=== PATIENT | female | born 1970 | race Caucasian/White ===

== ENCOUNTER 2021-03-26 13:09 | Emergency (ER) | payer OTHER, SELFPAY ==
[2021-03-26 13:19] VITALS: BP 155/100; PULSE 83; RESP 18; TEMP 36.4; O2SAT 98
--- NOTE | 2021-03-26 14:00 | ED.GENADULT ---
HPI - General Adult General Chief complaint: Headache Stated complaint: headache/sore throat, runny nose Time Seen by Provider: 03/26/21 13:34 History of Present Illness HPI narrative: Patient is a 50-year-old female with history of asthma otherwise healthy who comes emergency room today complaining primarily of a right-sided headache and pressure in right ear for the last 3 days along with sinus pain and congestion. The headache is located primarily on right side of head and frontal aspect of head. Today she developed fatigue and chills and vomiting. Temperature normal upon arrival to ED and has not taken any Tylenol or ibuprofen today. No abdominal pain, chest pain, shortness of breath. Notes that she has had ear infections in the past. Related Data Allergies Allergy/AdvReac Type Severity Reaction Status Date / Time Penicillins Allergy Hives Verified 03/26/21 13:23 tamoxifen Allergy Hives Verified 03/26/21 13:23 Review of Systems Constitutional: Constitutional: Reports as per HPI and Denies weakness ENT: Reports as per HPI Comments: See HPI for sinus pain and congestion Cardiovascular: Cardiovascular: Denies chest pain, Denies edema, Denies leg edema, Denies dyspnea and Denies orthopnea Respiratory: Respiratory: Denies cough and Denies dyspnea Gastrointestinal: Gastrointestinal: Denies abdominal pain, Denies constipation, Denies diarrhea, Reports nausea and Reports vomiting Comments: See HPI for nausea and vomiting that started earlier today Genitourinary: Genitourinary: Reports no additional female genitourinary complaints Comments: No urinary complaints Musculoskeletal: Musculoskeletal: Denies abnormal gait, Denies back pain, Denies numbness and Denies tingling Neurologic: Denies Abnormal speech present, Denies abnormal gait, Denies numbness, Denies tingling and Denies weakness Comments: See HPI for headache Psychiatric: Psychiatric: Denies homicidal ideation and Denies suicidal ideation [facility] Social History Social History Gender identity (if verbalized by the patient): Female Exam Const: General: cooperative, healthy appearing, comfortable, no acute distress, well developed, alert, awake and Physically active Orientation/consciousness: patient oriented x3 HENMT: Head: normal to inspection, normocephalic and atraumatic Ears: hearing grossly normal bilaterally, external ears normal, mastoids normal (Tender to palpate over right mastoid with no overlying edema or erythema) and other (Right TM shows a middle ear effusion with no signs of infection. ) General nose exam: Normal external nose present Face and sinus: other (Significant nasal mucosal edema bilaterally, right worse than left) Eyes: Pupils: Equal, round and reactive pupils present EOM: EOMs intact bilaterally Neck: Neck: normal visual inspection Other: Oropharynx clear. No lymphadenopathy. Chest: Chest palpation & inspection: normal inspection of the chest and no tenderness Resp: Effort & Inspection: normal respiratory effort and able to speak in complete sentences Auscultation: clear to auscultation bilaterally Cardio: Rate: regular rate Rhythm: regular rhythm GI: Inspection: normal to inspection GI Palp: No abdominal tenderness Other: No abdominal pain with deep palpation : General: Yes no CVA tenderness Back/Spine/Pelvis: Back: no CVA tenderness Skin: General skin exam: normal color and no rashes or lesions noted Lesions: no lesions Neuro: General: patient oriented x3, no focal motor deficits and CN's II-XI intact bilaterally Cranial nerves: Yes Equal, round and reactive pupils present Speech: No Abnormal speech present Motor exam (neuro): 5/5 motor strength present throughout Sensory Exam: normal sensation Extrem: General: normal to inspection and full ROM Psych: Appearance: grossly normal and well kempt Mental Status: mental status grossly normal Speech and movement: Normal speech and movement present Affect: normal
[2021-03-26] MEDS: KETOROLAC 15 MG/ML VIAL (*BKC) IV PUSH (14:46)
[2021-03-26] MEDS: ONDANSETRON INJ 4 MG/2 ML VIAL IV PUSH (14:46)
[2021-03-26] MEDS: ACETAMINOPHEN 500 MG TABLET 1000 MG PO (14:46)
[2021-03-26] MEDS: LACTATED RINGERS 1,000 ML 999 ML IV CONT (14:47)
[2021-03-26 16:50] VITALS: BP 160/101; PULSE 58; RESP 16; TEMP 36.4; O2SAT 100
[2021-03-26 17:09] VITALS: BP 160/101; PULSE 58; RESP 15; TEMP 36.4; O2SAT 100
[2021-03-28 01:55] LABS: SARS-CoV-2 RNA PCR Negative
== END 2021-03-26 17:11 | disposition home or self-care (01) ==
PROVIDERS: Physician Assistant Medical; Emergency Provider Emergency Medicine; PCP Family Medicine
DX: J01.10 Acute frontal sinusitis, unspecified (principal); H65.01 Acute serous otitis media, right ear; Z20.822 Contact with and (suspected) exposure to COVID-19
CPT/HCPCS: 96361; 96374; 96375; 99284; A9270; C9803; J1885; J2405; J7120; U0003; U0005

== ENCOUNTER 2021-04-15 16:53 | Emergency (ER) | payer OTHER, SELFPAY ==
--- NOTE | ~2021-04-15 | XR_ITS ---
XR chest 1V portable DATE: 04/15/2021 17:24 INDICATION: Cough and shortness of breath for one day. History of asthma. TECHNIQUE: Portable upright AP chest on 04/15/2021 at 1716 hours COMPARISON: None FINDINGS: Normal heart size. Minimal discoid atelectasis or scarring in the left upper and lower lung . No pulmonary infiltrate or consolidation, pleural effusion or pulmonary vascular congestion or pneumo thorax. Normal heart size. No hilar or mediastinal enlargement. IMPRESSION: Minimal left discoid atelectasis or scarring; otherwise no active cardiac pulmonary disea se Reviewed, dictated and finalized at location A. IMPRESSION: Minimal left discoid atelectasis or scarring; otherwise no active c ardiac pulmonary disease
[2021-04-15 18:19] VITALS: BP 138/96; PULSE 103; RESP 14; TEMP 36.6; O2SAT 99
--- NOTE | 2021-04-15 18:33 | ED.URI ---
HPI - URI/Sore Throat General Chief Complaint: Upper Respiratory Infection Stated Complaint: ASTHMA COVID S/SX Time Seen by Provider: 04/15/21 18:31 Source: patient Mode of arrival: ambulatory Limitations: no limitations History of Present Illness HPI Narrative: Patient is a 50-year-old female who presents for evaluation of shortness of breath, cough, fever, myalgias. Patient has been feeling unwell since , April 14 when her symptoms began. Patient spouse has been sick with similar symptoms. Patient reports fever of 101 Fahrenheit today. She reports cough, wheezing and is worried that her asthma is worsening. She reports shortness of breath and chest pain over the center of her chest without radiation to the neck, jaw or shoulder. She reports associated dry cough. She has been using a DuoNeb, and initiated steroids at home without much improvement in her symptoms today. She reports myalgias, rhinorrhea. She reports shortness of breath at rest. Patient is worried she may have Covid. She is not vaccinated. Related Data Allergies Allergy/AdvReac Type Severity Reaction Status Date / Time Penicillins Allergy Hives Verified 04/15/21 19:22 tamoxifen Allergy Hives Verified 04/15/21 19:22 Review of Systems Review of Systems: CONSTITUTIONAL: Reports fever and chills EYES: Denies visual changes, redness, or discharge. ENT: Reports rhinorrhea, congestion, sore throat CARDIOVASCULAR: Reports chest pain without palpitations RESPIRATORY: Reports cough and dyspnea GASTROINTESTINAL: Denies abdominal pain, reports nausea, denies diarrhea GENITOURINARY: Denies dysuria or hematuria. SKIN: Denies rash or itching. MUSCULOSKELETAL: Denies back pain, reports arthralgias and myalgias NEUROLOGIC: Denies headache, numbness, or weakness. [facility] Social History Social History (Updated 04/15/21 @ 19:46 by Joy Jones MD) Smoking status: Never smoker Alcohol intake: never Substance use: never Living arrangements: with family Gender identity (if verbalized by the patient): Female Exam Narrative: GENERAL: Awake, alert, conversant HEAD: Normocephalic, atraumatic. EYES: PERRLA and EOMI. ENT: Nares clear, no rhinorrhea or epistaxis. Mucous membranes moist. NECK: Supple. CHEST: No significant tachypnea, patient is able to speak in full sentences, there is audible wheezing HEART: Tachycardic rate, sinus rhythm ABDOMEN:Non distended, non tender EXTREMITIES: Normal range of motion. No edema. SKIN: Warm, dry, no rash. NEURO:No focal deficits. Alert and oriented x3 Course Vital Signs Vital signs: Vital Signs Temperature 36.6 C 04/15/21 18:19 Pulse Rate 103 H 04/15/21 18:19 Respiratory Rate 14 04/15/21 18:19 Blood Pressure 138/96 H 04/15/21 18:19 Pulse Oximetry 99 04/15/21 18:19 Temperature 36.6 C 04/15/21 18:19 Pulse Rate 101 H 04/15/21 21:46 Respiratory Rate 21 H 04/15/21 21:46 Blood Pressure 151/80 H 04/15/21 21:46 Pulse Oximetry 95 04/15/21 21:46 MDM - URI/Sore Throat MDM Narrative Medical decision making narrative: Patient presenting for evaluation of upper respiratory type symptoms that are most consistent with COVID-19 infection. Patient's Covid test is positive. Chest x-ray without acute patchy infiltrates. Patient treated for mild asthma exacerbation with DuoNeb treatment, steroids which greatly improved her wheezing. Patient was reassessed and tachycardia is improved. She is not hypoxic. Oxygen saturations are 100% on room air. No severe electrolyte derangement. Mild transaminitis consistent with Covid viral illness. Patient D-dimer mildly elevated but her age is 50, she does not meet criteria for CTA based on age-adjusted D-dimer. Troponin is not elevated. Patient will be discharged home, advised to quarantine, I did call her primary care physician to see if they could arrange monoclonal antibody infusion outside of the hospital. Differential Diagnosis Differential diagnosis: Alena
[2021-04-15 19:20] VITALS: BP 145/95; PULSE 99; RESP 17; O2SAT 99
[2021-04-15 19:23] VITALS: O2SAT 99
--- NOTE | 2021-04-15 19:35 | ECG_ITS ---
Measurements Intervals [place] Rate: 83 P: 22 MA: 142 QRS: -11 QRSD: 100 T: 3 QT: 360 QTc: 425 Interpretive Statements SINUS RHYTHM BORDERLINE R WAVE PROGRESSION, ANTERIOR LEADS MINIMAL Q WAVES- HIGH LATERAL LEADS BORDERLINE T WAVE ABNORMALITY- ANT/INF LEADS BORDERLINE ECG Electronically Signed On 04-15-2021 20:58:51 CDT by Leon Mora D.O.
[2021-04-15] MEDS: IPRATROPIUM BR 0.02% INH SOLN 0.5 MG/2.5 ML VIAL 1 MG INHALATION (19:52)
[2021-04-15] MEDS: ALBUTEROL SULFATE NEB 2.5 MG/0.5 ML INH 7.5 MG INHALATION (19:52)
[2021-04-15] MEDS: ALBUTEROL SULFATE NEB 2.5 MG/0.5 ML INH 5 MG INHALATION (19:52)
[2021-04-15] MEDS: ONDANSETRON INJ 4 MG/2 ML VIAL IV PUSH (20:11)
[2021-04-15] MEDS: ACETAMINOPHEN 500 MG TABLET 1000 MG PO (20:11)
[2021-04-15] MEDS: SODIUM CHLORIDE 0.9% IV 1,000 ML 999 ML IV CONT (20:11)
[2021-04-15] MEDS: methylPREDNISolone SOD SUCC 125 MG VIAL IV PUSH (20:11)
[2021-04-15 20:12] VITALS: BP 137/87; PULSE 88; RESP 12; O2SAT 100
[2021-04-15 20:23] LABS: Basophils Percent Auto 0.3 % (0.2-1.2); Hematocrit 42.5 % (37.0-47.0); Hemoglobin 14.2 g/dL (12.0-15.0); Immature Granulocyte Absolute 0.08 K/mm3 (0.00-0.031); Immature Granulocyte Percent A 2.1 % (0-0.5); Lymphocytes Absolute Auto 0.25 K/mm3 (0.9-3.2); Lymphocytes Percent Auto 6.6 % (18.3-44.2); Mean Corpuscular HGB Conc 33.4 g/dl (32-36); Mean Corpuscular Hemoglobin 31.3 pg (26-34); Mean Corpuscular Volume 93.6 fl (80-100); Mean Platelet Volume 10.1 fl (7.4-10.4); Monocytes Absolute Auto 0.2 K/mm3 (0.1-0.6); Monocytes Percent Auto 4.7 % (2.6-8.5); Neutrophils Absolute Auto 3.3 K/mm3 (1.3-6.7); Neutrophils Percent Auto 86.3 % (45.5-73.1); Platelet Count Result 201 k/mm3 (150-375); Red Blood Count 4.54 M/mm3 (4.2-5.4); Red Cell Distribution Width 12.5 % (11.5-14.5); White Blood Count 3.8 K/mm3 (4.5-10.0)
[2021-04-15 20:37] LABS: Albumin Level 4.5 g/dL (3.5-5.1); Alkaline Phosphatase 187 U/L (38-126); Anion Gap 11 mmol/L (8-16); Aspartate Amino Transferase 151 U/L (14-36); Bilirubin,Total 0.2 mg/dL (0.2-1.3); Blood Urea Nitrogen 7 mg/dL (7-17); Calcium 9.9 mg/dL (8.4-10.2); Carbon Dioxide 22 mmol/L (22-30); Chloride 104 mmol/L (98-107); Estimated CRCL calculation 124 ml/min; Estimated Glomerular Filt Rate > 60; Glucose 164 mg/dL (65-110); Potassium 3.6 mmol/L (3.4-5.0); Sodium 137 mmol/L (137-145)
[2021-04-15 20:44] LABS: INR 0.8
[2021-04-15 20:45] LABS: Partial Thromboplastin Time 26.8 SECONDS (22.3-36.8)
[2021-04-15 20:46] LABS: Troponin I < 0.012 ng/mL (0.000-0.034)
[2021-04-15 20:47] LABS: D Dimer 0.58 ug/mL (<0.48)
[2021-04-15 20:59] VITALS: PULSE 95; RESP 20; O2SAT 100
[2021-04-15 21:29] LABS: Alanine Aminotransferase 245 U/L (4-35)
[2021-04-15 21:45] LABS: EDCOVIDSCREEN Positive (Negative)
[2021-04-15 21:46] VITALS: BP 151/80; PULSE 101; RESP 21; O2SAT 95
== END 2021-04-15 21:58 | disposition home or self-care (01) ==
PROVIDERS: Emergency Provider Emergency Medicine; PCP Family Medicine
DX: U07.1 COVID-19 (principal); J45.909 Unspecified asthma, uncomplicated; J06.9 Acute upper respiratory infection, unspecified; R94.31 Abnormal electrocardiogram [ECG] [EKG]
CPT/HCPCS: 36415; 71045; 80053; 84484; 85025; 85380; 85610; 85730; 87426; 93005; 94640; 96361; 96374; 96375; 99284; A9270; C9803; J2405; J2930; J7030

== ENCOUNTER 2021-06-18 07:57 | Emergency (ER) | payer OTHER, SELFPAY ==
--- NOTE | ~2021-06-18 | CT_ITS ---
EXAMINATION: CT brain wo con DATE: 06/18/2021 09:40 INDICATION: Headache. TECHNIQUE: Computed tomography (CT) of the head was performed without intravenous contrast. The mA wa s adjusted according to patient size. Iterative reconstruction technique was employed. The dose-lengt h product was 605.33 mGy-cm. COMPARISON: None FINDINGS: There is no intracranial hemorrhage, acute infarction, or abnormal intracranial mass lesion . The ventricles are normal in size. The paranasal sinuses are clear. The mastoid air cells are stephanie l. There are likely changes of left ocular lens replacement surgery. IMPRESSION: 1. Normal brain. Reviewed, dictated and finalized at location A. IMPRESSION: 1. Normal brain.
[2021-06-18 08:16] VITALS: BP 127/87; PULSE 80; RESP 16; TEMP 36.2; O2SAT 99
[2021-06-18 09:57] LABS: Hematocrit 40.2 % (37.0-47.0); Hemoglobin 13.8 g/dL (12.0-15.0); Mean Corpuscular HGB Conc 34.3 g/dl (32-36); Mean Corpuscular Hemoglobin 31.8 pg (26-34); Mean Corpuscular Volume 92.6 fl (80-100); Mean Platelet Volume 9.2 fl (7.4-10.4); Platelet Count Result 373 k/mm3 (150-375); Red Blood Count 4.34 M/mm3 (4.2-5.4); Red Cell Distribution Width 12.4 % (11.5-14.5); White Blood Count 13.5 K/mm3 (4.5-10.0)
[2021-06-18] MEDS: SODIUM CHLORIDE 0.9% IV 1,000 ML 999 ML IV CONT (09:59)
[2021-06-18] MEDS: ONDANSETRON INJ 4 MG/2 ML VIAL IV PUSH (09:59)
[2021-06-18] MEDS: KETOROLAC 15 MG/ML VIAL (*BKC) IV PUSH (10:00)
[2021-06-18] MEDS: DEXAMETHASONE SOD PHOS INJ 4 MG/ML VIAL 10 MG IV PUSH (10:00)
[2021-06-18 10:01] VITALS: BP 137/94; PULSE 68; RESP 15; O2SAT 99
[2021-06-18 10:06] LABS: Alanine Aminotransferase 64 U/L (4-35); Albumin Level 4.1 g/dL (3.5-5.1); Alkaline Phosphatase 110 U/L (38-126); Anion Gap 7 mmol/L (8-16); Aspartate Amino Transferase 48 U/L (14-36); Bilirubin,Total 0.5 mg/dL (0.2-1.3); Blood Urea Nitrogen 21 mg/dL (7-17); Carbon Dioxide 29 mmol/L (22-30); Chloride 101 mmol/L (98-107); Estimated CRCL calculation 80 ml/min; Estimated Glomerular Filt Rate > 60; Glucose 92 mg/dL (65-110); Potassium 4.1 mmol/L (3.4-5.0); Sodium 137 mmol/L (137-145)
[2021-06-18 10:20] LABS: Add Urine Microscopic? YES; Appearance Urine Clear (Clear); Bilirubin Urine Negative (Negative); Blood Urine Negative (Negative); Color Urine Yellow (Yellow); Glucose Urine UA Negative (Negative); Ketones Urine Negative (Negative); Leukocyte Esterase Ur Negative LEU/UL (Negative); Mucus Urine Moderate /lpf; Nitrate Urine Negative (Negative); Protein Urine 1+ mg/dL (Negative); RBC Urine 0-2 /hpf (0-2); Specific Grav Ur 1.025 (1.001-1.035); Squamous Epithelial Cell Urine Few /hpf (Few); Urobilinogen Urine Negative mg/dL (<2.0); WBC Urine 0-3 /hpf
[2021-06-18 10:39] LABS: Band Neutrophils Percent 2 % (0-6); Eosinophils Absolute Manual 0.13 K/mm3 (0.02-0.5); Eosinophils Percent Manual 1 % (0-4); Lymphocytes Absolute Manual 2.43 K/mm3 (1.1-4.5); Lymphocytes Percent Manual 18 % (18-44); Monocytes Absolute Manual 0.81 K/mm3 (0.1-0.90); Monocytes Percent Manual 6 % (3-9); Neutrophils Absolute Manual 10.12 K/mm3 (1.7-7.2); Neutrophils Percent Manual 73 % (46-73); Platelet Estimate Adequate (Adequate); Total Cells Counted 100
[2021-06-18 10:40] LABS: Atypical Lymphocytes Present
[2021-06-18 11:07] LABS: Erythrocyte Sedimentation Rate 20 mm/hr (0-20)
[2021-06-18 11:45] VITALS: BP 154/92; PULSE 72; RESP 14; O2SAT 97
[2021-06-18] MEDS: SUMAtriptan SUCCINATE 6 MG/0.5 ML VIAL SUB-Q (12:58)
--- NOTE | 2021-06-18 13:56 | ECG_ITS ---
Measurements Intervals [place] Rate: 68 P: 48 AL: 159 QRS: -1 QRSD: 94 T: 20 QT: 387 QTc: 413 Interpretive Statements SINUS RHYTHM DELAYED PRECORDIAL R/S TRANSITION MINIMAL Q WAVES- HIGH LATERAL LEADS BORDERLINE ECG Electronically Signed On 06-18-2021 16:47:02 CDT by Leon Mora D.O.
--- NOTE | 2021-06-18 14:15 | ED.GENADULT ---
HPI - General Adult General Chief complaint: Headache Stated complaint: SAAB X2WKS Time Seen by Provider: 06/18/21 09:12 Source: patient Mode of arrival: ambulatory Limitations: no limitations History of Present Illness HPI narrative: Patient is a 51-year-old female presenting with chief complaint of right-sided headache for many months. Patient reports of the past 2 weeks the headache has been persistent so her primary care told her to present to the emergency department for evaluation. Patient states that she has had antibiotics to treat her sinuses and just finished a prednisone taper. Patient states that her primary care has also initiated blood pressure medication that may possibly be the cause of her headache without avail. Patient has not had any head injury. Patient reports at times when the headache is present she has intermittent blurry vision. She denies blurry vision at this time. Patient reports at times she has some nausea but does not have persistent vomiting. She denies tenderness when her arthroscopic surgery. She denies facial asymmetry, changes in speech, unilateral weakness or any neurological deficits. Related Data Home Medications Medication Instructions Recorded Confirmed metoprolol succinate 25 mg PO DAILY 06/18/21 tizanidine 4 mg PO Q8H PRN 06/18/21 Allergies Allergy/AdvReac Type Severity Reaction Status Date / Time Penicillins Allergy Hives Verified 06/18/21 08:21 tamoxifen Allergy Hives Verified 06/18/21 08:21 Review of Systems Review of Systems: CONSTITUTIONAL: Denies fever, chills, or sweats. EYES: Denies visual changes, redness, or discharge. ENT: Denies rhinorrhea, congestion, sore throat, or otalgia. CARDIOVASCULAR: Denies chest pain, palpitations, or edema. RESPIRATORY: Denies cough or dyspnea. GASTROINTESTINAL: Denies abdominal pain, nausea, vomiting, or diarrhea. GENITOURINARY: Denies dysuria or hematuria. SKIN: Denies rash or itching. MUSCULOSKELETAL: Denies back pain, joint pain, or myalgia. NEUROLOGIC: Reports headache, denies numbness, dizziness, or weakness. PSYCHIATRIC: Denies anxiety or depression. [facility] Social History Social History (Updated 04/15/21 @ 19:46 by Joy Jones MD) Smoking status: Never smoker Alcohol intake: never Substance use: never Gender identity (if verbalized by the patient): Female Exam Narrative: GENERAL: Well-appearing, well-nourished, and in no acute distress. HEAD: Normocephalic, atraumatic. No tenderness with palpation of the church. EYES: PERRLA and EOMI. ENT: Nares clear, no rhinorrhea or epistaxis. Mucous membranes moist. Oropharynx without tonsillar hypertrophy exudate or other lesions. Bilateral TMs pearly morris nonbulging NECK: Supple. No adenopathy or masses. ROM intact. CHEST: Clear to auscultation. No respiratory distress. No wheezes rales or rhonchi HEART: Regular rate and rhythm. No murmur heard. Normal peripheral pulses. EXTREMITIES: Normal range of motion. No edema. SKIN: Warm, dry, no rash. NEURO: No focal deficits. Alert and oriented x3. Face is symmetric. No unilateral weakness or deficits. PSYCH: Normal mood and affect. Course Vital Signs Vital signs: Vital Signs Temperature 97.2 F L 06/18/21 08:16 Pulse Rate 80 06/18/21 08:16 Respiratory Rate 16 06/18/21 08:16 Blood Pressure 127/87 06/18/21 08:16 Pulse Oximetry 99 06/18/21 08:16 Temperature 97.2 F L 06/18/21 08:16 Pulse Rate 80 06/18/21 15:01 Respiratory Rate 18 06/18/21 15:01 Blood Pressure 158/100 H 06/18/21 15:01 Pulse Oximetry 99 06/18/21 15:01 Medical Decision Making MDM Narrative Medical decision making narrative: Patient reports minimal improvement in her headache after Decadron, Toradol, fluids and Imitrex. Patient's head CT is negative. Patient blood work is normal. White blood cell count is slightly elevated but that is not abnormal due to patient being on steroids. Patient has been instructed to
[2021-06-18 15:01] VITALS: BP 158/100; PULSE 80; RESP 18; O2SAT 99
== END 2021-06-18 15:08 | disposition home or self-care (01) ==
PROVIDERS: Physician Assistant; Emergency Provider Emergency Medicine; PCP Family Medicine
DX: R51.9 Headache, unspecified (principal)
CPT/HCPCS: 36415; 70450; 80053; 81001; 85025; 85652; 93005; 96361; 96372; 96374; 96375; 99284; J1100; J1885; J2405; J3030; J7030

== ENCOUNTER → 2021-07-25 00:58 | Outpatient (CLI) | payer OTHER, SELFPAY ==
[2021-07-25 18:54] LABS: SARS-CoV-2 RNA PCR Negative
== END ==
PROVIDERS: PCP Family Medicine; Visit Provider Obstetrics & Gynecology Gynecology
DX: Z01.812 Encounter for preprocedural laboratory examination (principal)
CPT/HCPCS: C9803; U0003; U0005

== ENCOUNTER 2021-07-28 00:50 | Day surgery (SDC) | payer OTHER, SELFPAY ==
[2021-07-14 15:05] VITALS: BMI 31.4
--- NOTE | 2021-07-14 15:15 | PC.NURSE ---
Report to the Outpatient Waiting Room, entrance under the green pavilion located off [facility], at time 0600 on date 07/28/21. OR Time: 0730. - You and your visitor will be asked a series of questions to screen for COVID 19 for your protection. - A mask is required within the hospital. - Only one visitor is allowed at this time. Patient visitors will be guided where to wait when not with patient. Preoperative COVID Testing Requirements: No COVID Test needed if: (proof is required; if not received patient will have Rapid Test prior to entry) - Patient has received COVID Vaccine at least 14 days prior to procedure date or - Patient has positive COVID test result within last 90 days of surgery date. COVID Test needed if above criteria is not met If not COVID vaccinated a COVID test must be conducted within 72 hours of surgery and patient is asked to isolate self from time of testing until procedure. You will go to the [facility] for your COVID testing. The [facility] is located at the corner of [address] [facility]. COVID TEST 07/25 AT 0945 You will only be called if COVID results are positive and your surgeon may reschedule your elective surgery date. Patients may have clear liquids (water, carbonated beverages, clear teas, apple juice) until 3 hours prior to surgery with a maximum of 20 ounces. - No food from midnight until time of surgery - Infants may have breast milk until 4 hours before surgery, infant formula 6 hours prior to surgery. - Children will be allowed to drink immediately following surgery. If applicable, please bring a bottle or sippy cup to assist with drinking. Juice, water, soda, and popsicles are readily available. For infants on formula, please bring formula the day of surgery. Pacifiers are allowed. Take the following medications with a SIP of water the morning of surgery: METOPROLOL Medications to discontinue per physician: IBUPROFEN Date to take last dose: PER DR. CRAWFORD Please no make-up, nail malian, hairspray, perfume, deodorant, or body powder the day of surgery. No jewelry (including any body piercings) or valuables the day of surgery, leave them at home. Please take a shower or bath the night before, or the morning of, surgery with an antibacterial soap. Wear comfortable, loose fitting clothing. Children are encouraged to wear pajamas. - Jewelry must be removed prior to entering the operating room. Rings and piercings that are not removed may be cut off. - The hospital will not accept responsibility for valuables. - Please leave all valuables, including medications, at home the day of surgery. If you are going home after surgery, a licensed bus driver supervisor must drive you home. - NO public transportation without another adult. - We recommend that an adult stay with you for 24 hours following discharge. - We also recommend that you do not drive, make important decision, drink alcoholic beverages, or take any drugs that were not prescribed by your health care provider for at least 24 hours after your discharge time. For Pediatric surgeries, we recommend two adults accompany the child home (only one inside the building at this time). Follow any additional instructions given to you from your surgeon. Telephone instructions given to MAX DE LA GARZA and asked if any additional questions and then verbalized understanding. Patient advised to call surgeon office or pre surgery nurse liaison [phone] if any additional questions.
[2021-07-28 06:17] VITALS: BP 125/74; PULSE 57; RESP 16; TEMP 36; O2SAT 98
[2021-07-28] MEDS: LACTATED RINGERS 1,000 ML 30 ML IV CONT (06:30)
[2021-07-28] MEDS: ACETAMINOPHEN 500 MG TABLET 1000 MG PO (06:36)
--- NOTE | 2021-07-28 06:53 | P.PNAN_ITS ---
Anes - Initial Pre Proc Eval Procedure: Operation Date: 07/28/21 07:30 Proposed Procedures p Hysteroscopy, Dilation and Curettage - Angeles Hernandez MD Date/Time: 07/28/21 06:53 Surgeon: Angeles Hernandez MD Pre Op Diagnosis: Post Menopausal Bleeding Patient Data Age: 51 Gender: F Height: 1.68 m Weight: 88.5 kg Allergies Allergy/AdvReac Type Severity Reaction Status Date / Time adhesive tape Allergy Blister Verified 07/28/21 06:11 Penicillins Allergy Hives Verified 07/28/21 06:11 tamoxifen Allergy Hives Verified 07/28/21 06:11 Home Medications Medication Instructions Recorded Confirmed Type fluticasone propionate [Flonase 1 spray INTRANASAL DAILY PRN #16 g 03/26/21 07/28/21 Rx Allergy Relief] acetaminophen 500 mg PO Q6H PRN #30 cap 04/15/21 07/14/21 Rx albuterol sulfate 1 inhalation INHALATION Q4-6H PRN 04/15/21 07/14/21 Rx #1 each ibuprofen 400 mg PO TID PRN 10 Days #30 04/15/21 07/14/21 Rx tablet metoprolol succinate 25 mg PO DAILY 06/18/21 07/28/21 History tizanidine 4 mg PO Q8H PRN 06/18/21 07/14/21 History cetirizine [Zyrtec] 10 mg PO DAILY 07/14/21 07/28/21 History montelukast [Singulair] 10 mg PO DAILY 07/14/21 07/28/21 History pantoprazole 40 mg PO QAM 07/14/21 07/28/21 History rosuvastatin 5 mg PO DAILY 07/14/21 07/28/21 History Patient hx anesthesia problems: none Family hx anesthesia problems: none Results Review: All pre-operative results and documents have been reviewed as part of the pre-operative evaluation. [facility] Past Medical History Medical History Asthma GERD (gastroesophageal reflux disease) Hx of migraines Hyperlipidemia Hypertension Social History Social History Smoking status: Never smoker Alcohol intake: never Substance use: never Substance use type: does not use Living arrangements: with family Gender identity (if verbalized by the patient): Female Spiritual care concerns: No Anes - Eval Final PreProcedure Day of Procedure 07/28/21 06:53 Patient weight: obese Heart: regular rate and rhythm Lungs: clear to auscultation Airway: Mallampati scale class II Neurological: alert and oriented Last oral intake: >/= 8 hours ASA classification: III Emergent: no Anesthetic plan: proceed Anesthesia type and monitoring: general GIVS and standard monitoring Results Review: All pre-operative results and documents have been reviewed as part of the pre-operative evaluation. Informed Consent: The patient's anesthetic plan and its attendant risks and benefits were discussed with the patient/family/POA. Questions were solicited and answers provided to the satisfaction of the patient/family/POA.
--- NOTE | 2021-07-28 07:03 | WPDHPUPDATE1 ---
History and Physical Update Update Date/Time: 07/28/21 07:03 History and Physical has been reviewed, including an updated exam of the patient. There are NO changes in the patient's condition. Risks, benefits, and alternatives have been discussed and questions answered. Patient agrees to proceed with procedure.
--- NOTE | 2021-07-28 07:03 | PM.HPGS ---
History of Present Illness History of Present Illness Consent: Risks, benefits, and alternatives have been discussed and questions answered. Patient agrees to proceed with procedure. Chief complaint: Post Menopausal Bleeding Narrative: Chrissy Kilgore is a 51 year old female who is 2 years postmenopausal and began having spotting. Bleeding lasted longer than a week and has been on and off since 06/27. Recommended to proceed with workup with D&C hysteroscopy. Risks of infection, bleeding, and perforation were reviewed as well as possible pathology. Patient agrees to proceed. Review of Systems Constitutional: Constitutional: Reports night sweats Genitourinary: Genitourinary: Reports other (cramping) Musculoskeletal: Musculoskeletal: Reports back pain and Reports arthralgias PMFSH Past Medical History Medical History (Updated 07/28/21 @ 07:11 by Angeles Hernandez MD) Anxiety Asthma Depression GERD (gastroesophageal reflux disease) Hx of migraines Hyperlipidemia Hypertension (normal spontaneous vaginal delivery) x2 Pseudoangiomatous stromal hyperplasia of breast 2012 Surgical History Surgical History (Updated 07/28/21 @ 07:10 by Angeles Hernandez MD) H/O breast biopsy H/O oophorectomy History of bowel resection small intestine Hx of appendectomy S/P laparoscopic cholecystectomy Social History Social History Smoking status: Never smoker Alcohol intake: never Substance use: never Substance use type: does not use Living arrangements: with family Gender identity (if verbalized by the patient): Female Spiritual care concerns: No Meds Home Medications and Allergies Home Medications Medication Instructions Recorded Confirmed Type fluticasone propionate [Flonase 1 spray INTRANASAL DAILY PRN #16 g 03/26/21 07/28/21 Rx Allergy Relief] acetaminophen 500 mg PO Q6H PRN #30 cap 04/15/21 07/14/21 Rx albuterol sulfate 1 inhalation INHALATION Q4-6H PRN 04/15/21 07/14/21 Rx #1 each ibuprofen 400 mg PO TID PRN 10 Days #30 04/15/21 07/14/21 Rx tablet metoprolol succinate 25 mg PO DAILY 06/18/21 07/28/21 History tizanidine 4 mg PO Q8H PRN 06/18/21 07/14/21 History cetirizine [Zyrtec] 10 mg PO DAILY 07/14/21 07/28/21 History montelukast [Singulair] 10 mg PO DAILY 07/14/21 07/28/21 History pantoprazole 40 mg PO QAM 07/14/21 07/28/21 History rosuvastatin 5 mg PO DAILY 07/14/21 07/28/21 History Allergies Allergy/AdvReac Type Severity Reaction Status Date / Time adhesive tape Allergy Blister Verified 07/28/21 06:11 Penicillins Allergy Hives Verified 07/28/21 06:11 tamoxifen Allergy Hives Verified 07/28/21 06:11 Exam Const: General: healthy appearing and alert Orientation/consciousness: patient oriented x3 Resp: Effort & Inspection: normal respiratory effort Auscultation: clear to auscultation bilaterally Cardio: Rate: regular rate Rhythm: regular rhythm GI: GI Palp: Yes Soft to palpation, No Tenderness to palpation present (GI) and No Palpable mass present : External Female Exam: normal external appearance Speculum Exam - Vagina: normal appearance of the vagina and normal vaginal discharge Speculum Exam - Cervix: normal appearance of the cervix Bimanual exam- vagina & uterus: uterine size normal and consistency normal Bimanual Exam- Adnexa, other: normal adnexae and No adnexal tenderness Neuro: General: patient oriented x3 Assessment and Plan Assessment and plan (1) Post-menopausal bleeding: Code(s): N95.0 - Postmenopausal bleeding Status: Acute Assessment and Plan: proceed with hysteroscopy with D&C
[2021-07-28] MEDS: KETOROLAC 30 MG/ML VIAL (*BKC) IV PUSH (07:43)
--- NOTE | 2021-07-28 08:06 | W.PM.PROC2 ---
Procedure Note - Detailed Date of Procedure 07/28/21 Pre-op Diagnosis Post Menopausal Bleeding Post-op Diagnosis same Procedure Performed D and C hysteroscopy with MyoSure resection Surgeon Angeles Hernandez MD Anesthesia MAC and local Findings oblong appearing polyp possible fibroid atrophic endometrium Description of Procedure the patient was taken to the operating room and placed under anesthesia in the dorsal lithotomy position. She is prepped and draped in the usual sterile fashion. [place] speculum was placed in the vagina and the cervix is grasped on the anterior lip with a tenaculum. The cervix is injected in each quadrant with lidocaine.The uterus is attempted to be sounded the internal cervical stenosis is noted. The os Finders are used and I am able to enter the cavity. The uterus sounds to8.5cm. The cervix is serially dilated with Hegar to an 8. The diagnostic hysteroscope was placed with the above-stated findings. The MyoSure device is opened and placed. The MyoSure device is used to remove the lesion in its entirety visually it appeared to be a polyp however on resection is appears to be a possible fibroid. the device is then removed and the endometrium curetted with a sharp curette until a good uterine cry was noted in all areas. All instruments are removed. Sponge, needle, and instrument counts are correct per the OR staff. Estimated Blood Loss 5 Drains No Packing No Pathology yes ( endometrial shavings and curettings) Complications No immediate complications Condition stable Disposition PACU
[2021-07-28 08:08] VITALS: BP 129/80; PULSE 58; RESP 12; O2SAT 97
[2021-07-28 08:30] VITALS: BP 153/65; PULSE 47; RESP 20
[2021-07-28 09:00] VITALS: BP 145/68; PULSE 50; RESP 20
[2021-07-28 09:20] VITALS: BP 137/87; PULSE 48; RESP 20
== END 2021-07-28 09:29 | disposition home or self-care (01) ==
PROVIDERS: PCP Family Medicine; Visit Provider Obstetrics & Gynecology Gynecology
PROC: 0U5B8ZZ Destruction of Endometrium, Via Natural or Artificial Opening Endoscopic (ICD-10-PCS; CPT 58563; principal; 2021-07-28 07:30)
DX: N95.0 Postmenopausal bleeding (principal); N84.0 Polyp of corpus uteri; I10 Essential (primary) hypertension; E78.5 Hyperlipidemia, unspecified; K21.9 Gastro-esophageal reflux disease without esophagitis; J45.909 Unspecified asthma, uncomplicated; Z79.51 Long term (current) use of inhaled steroids; E66.9 Obesity, unspecified; Z68.31 Body mass index [BMI] 31.0-31.9, adult
CPT/HCPCS: 58558; 88305; A9270; J1885; J2250; J2704; J3010; J7030; J7120

== ENCOUNTER 2021-10-03 12:46 | Emergency (ER) | payer OTHER, SELFPAY ==
--- NOTE | ~2021-10-03 | XR_ITS ---
EXAMINATION: XR chest 2V DATE: 10/03/2021 13:46 INDICATION: Asthma and shortness of breath TECHNIQUE: PA and lateral views of the chest are obtained. COMPARISON: 04/15/2021 FINDINGS: The lungs are free of acute opacities. There is no pleural effusion or pneumothorax. The ca rdiomediastinal silhouette is normal. There is mild thoracic spondylosis. Surgical clips in the right upper quadrant are likely from prior cholecystectomy. IMPRESSION: 1. No acute cardiopulmonary abnormality. Reviewed, dictated and finalized at location A. ESS TEACHER
[2021-10-03 13:04] VITALS: BP 148/55; PULSE 45; RESP 18; TEMP 36.2; O2SAT 100
--- NOTE | 2021-10-03 13:18 | ED.URI ---
HPI - URI/Sore Throat General Chief Complaint: Upper Respiratory Infection Stated Complaint: Shortness of Breath,Chest Pain Time Seen by Provider: 10/03/21 13:18 Source: patient Mode of arrival: ambulatory Limitations: no limitations History of Present Illness HPI Narrative: Chrissy Kilgore is a 51 y female with a PMH of hypertension, GERD, high cholesterol, asthma, [facility] complaints of shortness of breath and chest pain that started 3 days ago. Saw her Dr on 09/28/21- repeat UA showed hi PH (dehydration). Treated for straph of abscess on abdomen earlier this month. Now along with sob and chest tightness,also has bumps in mouth, back of tongue - thinks could be thrush BP elevated here- states this AM even higher Patient used her nebulizer x2 last night states it did not help with her shortness of breath Not take COVID are flu vaccine Related Data Home Medications Medication Instructions Recorded Confirmed metoprolol succinate 25 mg PO DAILY 06/18/21 10/03/21 tizanidine 4 mg PO Q8H PRN 06/18/21 10/03/21 cetirizine [Zyrtec] 10 mg PO DAILY 07/14/21 10/03/21 montelukast [Singulair] 10 mg PO DAILY 07/14/21 10/03/21 pantoprazole 40 mg PO QAM 07/14/21 10/03/21 rosuvastatin 5 mg PO DAILY 07/14/21 10/03/21 albuterol sulfate 2.5 mg INHALATION PRN PRN 10/03/21 10/03/21 tramadol 50 mg PO PRN PRN 10/03/21 10/03/21 Allergies Allergy/AdvReac Type Severity Reaction Status Date / Time adhesive tape Allergy Blister Verified 10/03/21 13:16 Penicillins Allergy Hives Verified 10/03/21 13:16 tamoxifen Allergy Hives Verified 10/03/21 13:16 Review of Systems Review of Systems: CONSTITUTIONAL: Denies fever, chills, sweats. Fatigue EYES: Denies visual changes, redness, discharge. ENT: Denies rhinorrhea, congestion, sore throat, otalgia. CARDIOVASCULAR: Denies chest pain, chest tightness on right, no palpitations, edema. RESPIRATORY: Denies dyspnea, wheezing, has cough GASTROINTESTINAL: Denies abdominal pain, nausea, vomiting, diarrhea. GENITOURINARY: Denies dysuria, hematuria, abnormal discharge SKIN: Denies rash or itching. NEUROLOGIC: Denies numbness, or focal weakness. PSYCHIATRIC: Denies anxiety or depression. [facility] Past Medical History Medical History Anxiety Asthma Depression GERD (gastroesophageal reflux disease) Hx of migraines Hyperlipidemia Hypertension (normal spontaneous vaginal delivery) x2 Pseudoangiomatous stromal hyperplasia of breast 2013 Surgical History Surgical History H/O breast biopsy H/O oophorectomy History of bowel resection small intestine Hx of appendectomy S/P laparoscopic cholecystectomy Social History Social History Smoking status: Never smoker Alcohol intake: never Substance use: never Substance use type: does not use Gender identity (if verbalized by the patient): Female Spiritual care concerns: No Comments At time of signature, I agree with nursing past medical, surgical, social and family history. There is no relevant family history pertinent to the presenting complaint. Exam Narrative: GENERAL: This is a well-nourished, well-developed patient, in mild distress. HEAD: normocephalic, atraumatic. EYES: Sclera clear/white. Vision is grossly intact. EARS: External ears normal, auditory canals clear and without drainage, TMs normal without perforation. Hearing grossly intact. NOSE: External nose normal without nasal discharge, nares without redness, no rhinorrhea. THROAT: Mucous membranes moist, posterior pharynx mild erythema, no exudate, small amount of white exudate on tongue NECK: Neck supple, non-tender CARDIOVASCULAR: Bradycardic r rate and rhythm without murmurs, gallops, or rubs. RESPIRATORY: Clear to auscultation. Breath sounds equal bilaterally. No wheezes, rales, or rho
--- NOTE | 2021-10-03 14:19 | ECG_ITS ---
Measurements Intervals [place] Rate: 35 P: [place]: 0 QRS: 12 QRSD: 101 T: 9 QT: 491 QTc: 379 Interpretive Statements SINUS BRADYCARDIA MINIMAL Q WAVES- HIGH LATERAL LEADS BASELINE ARTIFACT- II, III, AVF ABNORMAL ECG Electronically Signed On 10-03-2021 16:10:25 GERM DRIER by Leon Mora D.O.
== END 2021-10-03 14:30 | disposition short-term general hospital (02) ==
PROVIDERS: Emergency Provider Nurse Practitioner; PCP Family Medicine
DX: R00.1 Bradycardia, unspecified (principal); Z20.822 Contact with and (suspected) exposure to COVID-19; J45.909 Unspecified asthma, uncomplicated; K21.9 Gastro-esophageal reflux disease without esophagitis; E78.5 Hyperlipidemia, unspecified; I10 Essential (primary) hypertension
CPT/HCPCS: 71046; 87426; 87804; 93005; 99213; C9803; G0463

== ENCOUNTER 2021-10-03 14:39 | Emergency (ER) | payer OTHER, SELFPAY ==
[2021-10-03] VITALS (7 sets, daily range): BP systolic 173–189; BP diastolic 78–100; PULSE 38–50; RESP 14–18; TEMP 36.9; O2SAT 99–100
--- NOTE | ~2021-10-03 | XR_ITS ---
EXAMINATION: XR chest 1V portable DATE: 10/03/2021 15:39 INDICATION: Cough. Chest tightness. TECHNIQUE: A single frontal view of the chest was obtained. COMPARISON: Chest 2 views 10/03/2021 FINDINGS: There is mild atelectasis in the lower lung zones. No pleural effusion or pneumothorax. The heart size is normal. IMPRESSION: 1. Mild atelectasis in the lower lung zones. Reviewed, dictated and finalized at location E. EN EQUIPMENT MECHANIC
--- NOTE | 2021-10-03 14:44 | ECG_ITS ---
Measurements Intervals [place] Rate: 38 P: 56 [place]: 149 QRS: 15 QRSD: 99 T: 16 QT: 460 QTc: 370 Interpretive Statements SINUS BRADYCARDIA MINIMAL Q WAVES- HIGH LATERAL LEADS BASELINE ARTIFACT- III ABNORMAL ECG Electronically Signed On 10-03-2021 16:11:03 LABORATORY TECHNOLOGY TEACHER by Leon Mora D.O.
[2021-10-03 14:54] LABS: Basophils Percent Auto 0.3 % (0.2-1.2); Eosinophils Absolute Auto 0.2 K/mm3 (0-0.3); Eosinophils Percent Auto 1.7 % (0-4.4); Hemoglobin 13.2 g/dL (12.0-15.0); Immature Granulocyte Absolute 0.15 K/mm3 (0.00-0.031); Immature Granulocyte Percent A 1.4 % (0-0.5); Lymphocytes Absolute Auto 1.43 K/mm3 (0.9-3.2); Lymphocytes Percent Auto 13.2 % (18.3-44.2); Mean Corpuscular HGB Conc 32.2 g/dl (32-36); Mean Corpuscular Hemoglobin 30.7 pg (26-34); Mean Corpuscular Volume 95.3 fl (80-100); Mean Platelet Volume 10.1 fl (7.4-10.4); Monocytes Absolute Auto 0.7 K/mm3 (0.1-0.6); Monocytes Percent Auto 6.5 % (2.6-8.5); Neutrophils Absolute Auto 8.3 K/mm3 (1.3-6.7); Neutrophils Percent Auto 76.9 % (45.5-73.1); Platelet Count Result 314 k/mm3 (150-375); White Blood Count 10.8 K/mm3 (4.5-10.0)
[2021-10-03 15:05] LABS: Potassium 4.2 mmol/L (3.4-5.0)
[2021-10-03 15:12] LABS: Prothrombin Time 12.3 Seconds (11.1-14.7)
[2021-10-03 15:13] LABS: Partial Thromboplastin Time 28.2 SECONDS (22.3-36.8)
[2021-10-03 15:16] LABS: NT Pro B Type Natriuretic Pept 452 pg/mL (5-100)
[2021-10-03 15:17] LABS: Troponin I < 0.012 ng/mL (0.000-0.034)
--- NOTE | 2021-10-03 15:21 | ED.CHESTPAIN ---
HPI - Chest Pain General Chief Complaint: Chest Pain Stated Complaint: Heart block Time Seen by Provider: 10/03/21 14:51 Source: RN notes reviewed History of Present Illness HPI narrative: Patient presents emergency department from urgent care for a low heart rate. Patient states that over the past several days she has been feeling more tired and lethargic she gone to the urgent care today and they did do an EKG that showed the patient to be in heart block and sent the patient for further evaluation patient states that she is on metoprolol for blood pressure which she has been taking as well as taking at this morning she states that she has had no fevers or chills she noted some right-sided chest pain that began this morning but does not currently have she states she had an asthma attack yesterday and had take her inhaler and was breathing hard during that time she denies any current shortness of breath abdominal pain or nausea or Related Data Home Medications Medication Instructions Recorded Confirmed metoprolol succinate 25 mg PO DAILY 06/18/21 10/03/21 tizanidine 4 mg PO Q8H PRN 06/18/21 10/03/21 cetirizine [Zyrtec] 10 mg PO DAILY 07/14/21 10/03/21 montelukast [Singulair] 10 mg PO DAILY 07/14/21 10/03/21 pantoprazole 40 mg PO QAM 07/14/21 10/03/21 rosuvastatin 5 mg PO DAILY 07/14/21 10/03/21 albuterol sulfate 2.5 mg INHALATION PRN PRN 10/03/21 10/03/21 raloxifene 60 mg PO DAILY 10/03/21 10/03/21 tramadol 50 mg PO PRN PRN 10/03/21 10/03/21 Allergies Allergy/AdvReac Type Severity Reaction Status Date / Time adhesive tape Allergy Blister Verified 10/03/21 14:56 amlodipine Allergy Hives Verified 10/03/21 18:28 Penicillins Allergy Hives Verified 10/03/21 14:56 tamoxifen Allergy Hives Verified 10/03/21 14:56 Review of Systems Review of Systems: Gen.: Denies fevers or chills ENT: Denies congestion Respiratory: Denies shortness of breath or cough CV: See HPI GI: Denies abdominal pain nausea, emesis or diarrhea Musculoskeletal: Denies back pain or muscle pain Neuro: Denies numbness, tingling, weakness or focal weakness Skin: Denies rash Except as documented, all other systems reviewed and negative [facility] Past Medical History Medical History Anxiety Asthma Depression GERD (gastroesophageal reflux disease) Hx of migraines Hyperlipidemia Hypertension (normal spontaneous vaginal delivery) x2 Pseudoangiomatous stromal hyperplasia of breast 2012 Surgical History Surgical History H/O breast biopsy H/O oophorectomy History of bowel resection small intestine Hx of appendectomy S/P laparoscopic cholecystectomy Social History Social History Smoking status: Never smoker Alcohol intake: never Substance use: never Substance use type: does not use Gender identity (if verbalized by the patient): Female Spiritual care concerns: No Exam Narrative: APPEARANCE: No acute distress, nontoxic, resting in bed EYES: EOMI HEENT: Normocephalic, atraumatic, OMM RESPIRATORY: No respiratory distress Clear to auscultation bilaterally with no rhonchi wheezing or rales. CARDIOVASCULAR: Regular rate and rhythm without murmurs rubs or gallops. Chest: Tender palpation of the right anterior chest wall with point tenderness present ABDOMINAL: Soft, nontender, nondistended, no rebound or guarding MUSCULOSKELETAl: Moves all extremities. No clubbing, cyanosis or edema. NEURO: Awake and alert. Following commands, speech normal, no focal deficits SKIN:: Warm, dry. No rashes lesions or abrasions PSYCHIATRIC: Normal affect/mood, Course Course Emergency Course: Reviewed patient's EKG from urgent care no signs of heart block patient with sinus bradycardia consistent with EKG in the ED today reviewed patient's old records patient's had progressively decreasing heart rat
[2021-10-03] MEDS: ASPIRIN 81 MG CHEWABLE TABLET 324 MG PO (15:22)
[2021-10-03 15:25] LABS: Alanine Aminotransferase 80 U/L (4-35); Albumin Level 4.5 g/dL (3.5-5.1); Alkaline Phosphatase 143 U/L (38-126); Anion Gap -1 mmol/L (8-16); Aspartate Amino Transferase 73 U/L (14-36); Bilirubin,Total 0.8 mg/dL (0.2-1.3); Blood Urea Nitrogen 8 mg/dL (7-17); Calcium 9.7 mg/dL (8.4-10.2); Carbon Dioxide 33 mmol/L (22-30); Chloride 102 mmol/L (98-107); Estimated CRCL calculation 90 ml/min; Estimated Glomerular Filt Rate > 60; Glucose 101 mg/dL (65-110); Lipase 31 U/L (23-300); Magnesium 2.3 mg/dL (1.6-2.3); Sodium 134 mmol/L (137-145)
[2021-10-03 15:38] LABS: Thyroid Stimulating Hormone 0.738 uIU/mL (0.465-4.680)
[2021-10-03 15:45] LABS: Add Urine Microscopic? NO; Appearance Urine Clear (Clear); Bilirubin Urine Negative (Negative); Blood Urine Negative (Negative); Color Urine Colorless (Yellow); Glucose Urine UA Negative (Negative); Ketones Urine Negative (Negative); Leukocyte Esterase Ur Negative LEU/UL (Negative); Nitrate Urine Negative (Negative); Protein Urine Negative (Negative); Urobilinogen Urine Negative mg/dL (<2.0)
[2021-10-03 15:46] LABS: Specific Grav Ur 1.002 (1.001-1.035)
[2021-10-03 18:00] LABS: Troponin I < 0.012 ng/mL (0.000-0.034)
== END 2021-10-03 19:11 | disposition home or self-care (01) ==
PROVIDERS: Emergency Provider Emergency Medicine; PCP Family Medicine
DX: R00.1 Bradycardia, unspecified (principal); R07.89 Other chest pain; I10 Essential (primary) hypertension; J45.909 Unspecified asthma, uncomplicated; K21.9 Gastro-esophageal reflux disease without esophagitis; E78.5 Hyperlipidemia, unspecified; F41.9 Anxiety disorder, unspecified; F32.A Depression, unspecified; Z90.49 Acquired absence of other specified parts of digestive tract
CPT/HCPCS: 36415; 71045; 71046; 80053; 81003; 83690; 83735; 83880; 84443; 84484; 85025; 85610; 85730; 87426; 87804; 93005; 99284; A9270; C9803

== ENCOUNTER 2021-10-19 07:44 | Outpatient (CLI) | payer OTHER, SELFPAY ==
--- NOTE | 2021-10-19 07:51 | EST_ITS ---
Patient Info Name: Chrissy Kilgore Age: 51 years : 1970 Gender: Female Ht: 66 in Wt: 180 lbs BSA: 1.97 m2 HR: 72 bpm BP: 156 / 95 mmHg Heart Rhythm: Sinus Rhythm Exam Date: 10/19/2021 8:40 AM Exam Location: [facility] Stress Patient Status: Outpatient Admit Date: 10/19/2021 Staff Ordering Physician: Leon Mora DO Attending Provider: Leon Mora DO Exercise Technologist: Akila Sam CT Exam Type: CA stress test treadmill Study Info Indications R06.00 - Dyspnea, unspecified An exercise stress test was performed. Summary 1. 1. Negative [place] exercise stress test for ischemic ST changes by ECG criteria. 2. 2. Reduced functional capacity, achieving 7 METs of workload. 3. 3. Appropriate HR response to exercise. 4. 4. Appropriate HR recovery at 1 minute post exercise. 5. 5. No imaging with stress testing. 6. 6. Patient informed of the above results. Protocol: [place] Stress ECG Details Stage: REST Duration (min): 3 min : 45 sec Speed (mph): 0.0 Grade (%): 0 HR (bpm): 77 SBP (mmHg): 154 DBP (mmHg): 93 METS: --- Stage: REST Duration (min): 17 min : 47 sec Speed (mph): 0.0 Grade (%): 0 HR (bpm): 86 SBP (mmHg): 154 DBP (mmHg): 93 METS: --- Stage: STAGE 1 Duration (min): 1 min : 0 sec Speed (mph): 1.7 Grade (%): 10 HR (bpm): 107 SBP (mmHg): 154 DBP (mmHg): 93 METS: --- Stage: STAGE 1 Duration (min): 2 min : 0 sec Speed (mph): 1.7 Grade (%): 10 HR (bpm): 124 SBP (mmHg): 154 DBP (mmHg): 93 METS: --- Stage: STAGE 1 Duration (min): 3 min : 0 sec Speed (mph): 1.7 Grade (%): 10 HR (bpm): 125 SBP (mmHg): 151 DBP (mmHg): 85 METS: --- Stage: STAGE 2 Duration (min): 1 min : 0 sec Speed (mph): 2.5 Grade (%): 12 HR (bpm): 146 SBP (mmHg): 151 DBP (mmHg): 85 METS: --- Stage: STAGE 2 Duration (min): 2 min : 0 sec Speed (mph): 2.5 Grade (%): 12 HR (bpm): 155 SBP (mmHg): 185 DBP (mmHg): 89 METS: --- Stage: STAGE 2 Duration (min): 2 min : 0 sec Speed (mph): 2.5 Grade (%): 12 HR (bpm): 156 SBP (mmHg): 185 DBP (mmHg): 89 METS: --- Stage: RECOVERY Duration (min): 0 min : 59 sec Speed (mph): 0.0 Grade (%): 0 HR (bpm): 123 SBP (mmHg): 185 DBP (mmHg): 89 METS: --- Stage: RECOVERY Duration (min): 1 min : 59 sec Speed (mph): 0.0 Grade (%): 0 HR (bpm): 104 SBP (mmHg): 185 DBP (mmHg): 89 METS: --- Stage: RECOVERY Duration (min): 2 min : 59 sec Speed (mph): 0.0 Grade (%): 0 HR (bpm): 96 SBP (mmHg): 142 DBP (mmHg): 106 METS: --- Stage: RECOVERY Duration (min): 3 min : 59 sec Speed (mph): 0.0 Grade (%): 0 HR (bpm): 87 SBP (mmHg): 142 DBP (mmHg): 106 METS: --- Stage: RECOVERY Duration (min):
--- NOTE | 2021-10-19 07:51 | ECHO_ITS ---
Patient Info Name: Chrissy Kilgore Age: 51 years : 1970 Gender: Female Ht: 66 in Wt: 180 lbs BSA: 1.97 m2 HR: 64 bpm BP: 139 / 114 mmHg Technical Quality: Good Exam Date: 10/19/2021 8:00 AM Exam Location: [facility] Patient Status: Outpatient Admit Date: 10/19/2021 Staff Ordering Physician: Leon Mora DO Field Instructor: Cleo Medina RDCS Attending Provider: Leon Mora DO Referring Physician: Morgan HARE; Exam Type: CA echo doppler color flow Study Info Indications R06.00 - Dyspnea, unspecified Complete two-dimensional, color flow and Doppler transthoracic echocardiogram is performed. Summary 1. Complete two-dimensional, color flow and Doppler transthoracic echocardiogram is performed. 2. Left ventricular chamber dimension is normal. 3. Left ventricular systolic function is normal, estimated at 60-65%. 4. There is mildly increased left ventricular wall thickness. 5. The left ventricular diastolic function is grade I diastolic dysfunction. 6. E/e' 10 is mildly elevated. 7. Global longitudinal strain is abnormal at -15.9%. 8. No pulmonary hypertension, estimated pulmonary arterial systolic pressure is 24 mmHg. Left Ventricle E/e' 10 is mildly elevated. Global longitudinal strain is abnormal at -15.9%. Left ventricular chamber dimension is normal. Left ventricular systolic function is normal, estimated at 60-65%. There is mildly increased left ventricular wall thickness. The left ventricular diastolic function is grade I diastolic dysfunction. Right Ventricle Right ventricular chamber dimension is normal. Right ventricular systolic function is normal. Left Atria Left atrial chamber dimension is normal. Right Atria Right atrial chamber dimension is normal. Aortic Valve The aortic valve is trileaflet. There is no aortic valve stenosis. There is no aortic valve regurgitation. Pulmonic Valve There is no pulmonic regurgitation. Mitral Valve There is no mitral valve stenosis. There is no mitral valve regurgitation. Tricuspid Valve There is no tricuspid valve regurgitation. No pulmonary hypertension, estimated pulmonary arterial systolic pressure is 24 mmHg. Pericardium/Pleural There is no pericardial effusion. Inferior Vena Cava Normal inferior vena cava with >50% collapse upon inspiration consistent with normal right atrial pressure, 5 mmHg. Aorta The aortic root size at the sinus of Valsalva is normal. Left Ventricular Outflow Tract Name Value Normal LVOT 2D LVOT Diameter 1.9 cm LVOT Doppler LVOT Peak Gradient 5 mmHg LVOT Mean Gradient 3 mmHg LVOT VTI 22 cm LVOT VTI/AV VTI Ratio 0.7 LVOT Stroke Volume 66 ml LVOT CO 5.0 l/min LVOT CI 2.5 l/min/m2 Pulmonic Valve Name Value Normal
== END 2021-10-19 07:45 | disposition home or self-care (01) ==
LOC: ANHCARD 07:46
PROVIDERS: PCP Family Medicine; Visit Provider Internal Medicine Cardiovascular Disease
DX: R07.9 Chest pain, unspecified (principal); R06.00 Dyspnea, unspecified; R93.1 Abnormal findings on diagnostic imaging of heart and coronary circulation
CPT/HCPCS: 93017; 93306

== ENCOUNTER 2021-12-08 11:25 | Emergency (ER) | payer OTHER, SELFPAY ==
[2021-12-08] VITALS (11 sets, daily range): BP systolic 146–162; BP diastolic 95–118; PULSE 74–110; RESP 12–22; TEMP 36.9; O2SAT 95–100
--- NOTE | ~2021-12-08 | XR_ITS ---
EXAMINATION: XR chest 2V DATE: 12/08/2021 11:50 INDICATION: Shortness of breath and centralized chest pain TECHNIQUE: PA and lateral views of the chest were obtained. COMPARISON: Chest radiograph dated 10/03/2021 FINDINGS: 10 seen is mild linear atelectasis/scarring in the bilateral lower lung zones. No new airspace opacit ies, pulmonary edema, pleural effusion or pneumothorax. The cardiomediastinal silhouette is normal. C holecystectomy clips in right upper quadrant. Mild thoracic spondylosis. IMPRESSION: 1. Unchanged mild bibasilar atelectasis/scarring. No acute cardiopulmonary disease. Reviewed, dictated and finalized at location A. IMPRESSION: 1. Unchanged mild bibasilar atelectasis/scarring. No acute cardiopulmonary dise ase.
--- NOTE | 2021-12-08 11:26 | ECG_ITS ---
Measurements Intervals [place] Rate: 114 P: 45 VT: 124 QRS: -17 QRSD: 106 T: 42 QT: 337 QTc: 466 Interpretive Statements SINUS TACHYCARDIA POSSIBLE ANTEROLATERAL MYOCARDIAL INFARCTION , PROBABLY OLD Electronically Signed On 12-08-2021 11:37:28 CDT by Peter Roman M.D.
[2021-12-08] MEDS: ASPIRIN 81 MG CHEWABLE TABLET 324 MG PO (11:38)
[2021-12-08 11:51] LABS: Basophils Percent Auto 0.4 % (0.2-1.2); Eosinophils Absolute Auto 0.1 K/mm3 (0-0.3); Eosinophils Percent Auto 1.2 % (0-4.4); Hematocrit 46.7 % (37.0-47.0); Hemoglobin 15.3 g/dL (12.0-15.0); Immature Granulocyte Absolute 0.02 K/mm3 (0.00-0.031); Immature Granulocyte Percent A 0.2 % (0-0.5); Lymphocytes Percent Auto 18.2 % (18.3-44.2); Mean Corpuscular HGB Conc 32.8 g/dl (32-36); Mean Corpuscular Hemoglobin 30.4 pg (26-34); Mean Corpuscular Volume 92.7 fl (80-100); Mean Platelet Volume 10.2 fl (7.4-10.4); Monocytes Absolute Auto 0.5 K/mm3 (0.1-0.6); Monocytes Percent Auto 5.7 % (2.6-8.5); Neutrophils Absolute Auto 6.1 K/mm3 (1.3-6.7); Neutrophils Percent Auto 74.3 % (45.5-73.1); Platelet Count Result 386 k/mm3 (150-375); Red Blood Count 5.04 M/mm3 (4.2-5.4); Red Cell Distribution Width 13.1 % (11.5-14.5); White Blood Count 8.2 K/mm3 (4.5-10.0)
[2021-12-08 12:01] LABS: Alanine Aminotransferase 25 U/L (4-35); Albumin Level 4.8 g/dL (3.5-5.1); Alkaline Phosphatase 124 U/L (38-126); Anion Gap 12 mmol/L (8-16); Aspartate Amino Transferase 37 U/L (14-36); Bilirubin,Total 1.6 mg/dL (0.2-1.3); Blood Urea Nitrogen 11 mg/dL (7-17); Calcium 9.7 mg/dL (8.4-10.2); Carbon Dioxide 21 mmol/L (22-30); Chloride 109 mmol/L (98-107); Estimated CRCL calculation 102 ml/min; Estimated Glomerular Filt Rate > 60; Glucose 127 mg/dL (65-110); Lipase 66 U/L (23-300); Potassium 3.6 mmol/L (3.4-5.0); Sodium 142 mmol/L (137-145)
[2021-12-08 12:05] LABS: INR 1.1; Partial Thromboplastin Time 31.1 SECONDS (22.3-36.8); Prothrombin Time 13.3 Seconds (11.1-14.7)
--- NOTE | 2021-12-08 12:07 | ED.CHESTPAIN ---
HPI - Chest Pain General Chief Complaint: Chest Pain Stated Complaint: chest pain, dizziness Time Seen by Provider: 12/08/21 11:54 Source: patient History of Present Illness HPI narrative: Patient presents with midsternal chest pain. First had symptoms for the past couple days was worse last night and this morning so she came to the ER for evaluation. Pain is achy, constant, no radiation is worse with deep inspiration. She reports her heart rate is been in the 30s noted on her apple watch which is unusual for her over the past 2 days it has been normal. Denies any nausea vomiting diaphoresis she does report some shortness of breath and lightheadedness described a sensation of going to pass out. She denies any recent fevers, cough, congestion she denies prior history of blood clots recent hospitalizations or surgeries. Related Data Home Medications Medication Instructions Recorded Confirmed tizanidine 4 mg PO Q8H PRN 06/18/21 10/05/21 cetirizine [Zyrtec] 10 mg PO DAILY 07/14/21 10/05/21 montelukast [Singulair] 10 mg PO DAILY 07/14/21 10/05/21 pantoprazole 40 mg PO QAM 07/14/21 10/05/21 rosuvastatin 5 mg PO DAILY 07/14/21 10/05/21 albuterol sulfate 2.5 mg INHALATION PRN PRN 10/03/21 10/05/21 raloxifene 60 mg PO DAILY 10/03/21 10/05/21 tramadol 50 mg PO PRN PRN 10/03/21 10/05/21 Allergies Allergy/AdvReac Type Severity Reaction Status Date / Time adhesive tape Allergy Blister Verified 12/08/21 11:36 amlodipine Allergy Hives Verified 12/08/21 11:36 Penicillins Allergy Hives Verified 12/08/21 11:36 tamoxifen Allergy Hives Verified 12/08/21 11:36 Review of Systems Review of Systems: CONSTITUTIONAL: Denies fever, chills, or sweats. EYES: Denies visual changes, redness, or discharge. ENT: Denies rhinorrhea, congestion, sore throat, or otalgia. CARDIOVASCULAR: Denies palpitations, or edema. RESPIRATORY: Denies cough GASTROINTESTINAL: Denies abdominal pain, nausea, vomiting, or diarrhea. GENITOURINARY: Denies dysuria or hematuria. SKIN: Denies rash or itching. MUSCULOSKELETAL: Denies back pain, joint pain, or myalgia. NEUROLOGIC: Denies headache, numbness, or weakness. PSYCHIATRIC: Denies anxiety or depression. All systems reviewed & are unremarkable except as noted in HPI and below PMFSH Past Medical History Medical History Anxiety Asthma Depression GERD (gastroesophageal reflux disease) Hx of migraines Hyperlipidemia Hypertension (normal spontaneous vaginal delivery) x2 Pseudoangiomatous stromal hyperplasia of breast 2012 Surgical History Surgical History H/O breast biopsy H/O oophorectomy History of bowel resection small intestine Hx of appendectomy S/P laparoscopic cholecystectomy Social History Social History Smoking status: Never smoker Alcohol intake: never Substance use: never Substance use type: does not use Gender identity (if verbalized by the patient): Female Spiritual care concerns: No Exam Narrative: GENERAL: Well-appearing, well-nourished, and in no acute distress. HEAD: Normocephalic, atraumatic. EYES: PERRLA and EOMI. ENT: Nares clear, no rhinorrhea or epistaxis. Mucous membranes moist. NECK: Supple. No masses. No JVD CHEST: Clear to auscultation. No respiratory distress. No wheezes rales or rhonchi HEART: Regular rate and rhythm. No murmur heard. Normal peripheral pulses. ABDOMEN: Soft, nontender, nondistended, normal active bowel sounds. EXTREMITIES: Normal range of motion. No edema. SKIN: Warm, dry, no rash. NEURO: No focal deficits. Alert and oriented x3. PSYCH: Normal mood and affect. Course Reevaluation(s) Reevaluation #1: Patient with minimal changes in symptoms. Results reviewed with patient. Patient requested GI cocktail which was ordered. Given a reassuring work-up patient is comfortabl
[2021-12-08 12:12] LABS: Troponin I < 0.012 ng/mL (0.000-0.034)
[2021-12-08 12:47] LABS: D Dimer 0.36 ug/mL (<0.48)
[2021-12-08] MEDS: MAG HYDROX/AL HYDROX/SIMETH 30 ML UDC PO (14:48)
[2021-12-08] MEDS: LIDOCAINE HCL 2% VISC SOLN 15 ML UDC 20 ML PO (14:48)
[2021-12-08 14:53] LABS: Troponin I < 0.012 ng/mL (0.000-0.034)
== END 2021-12-08 15:00 | disposition home or self-care (01) ==
PROVIDERS: Emergency Provider Emergency Medicine; PCP Family Medicine
DX: R07.2 Precordial pain (principal); R42 Dizziness and giddiness; J45.909 Unspecified asthma, uncomplicated; K21.9 Gastro-esophageal reflux disease without esophagitis; E78.5 Hyperlipidemia, unspecified; I10 Essential (primary) hypertension; R00.0 Tachycardia, unspecified; R94.31 Abnormal electrocardiogram [ECG] [EKG]
CPT/HCPCS: 36415; 71046; 80053; 83690; 84484; 85025; 85380; 85610; 85730; 93005; 99284; A9270

== ENCOUNTER 2022-01-05 12:42 | Inpatient (IN) | payer OTHER, SELFPAY ==
--- NOTE | ~2022-01-05 | XR_ITS ---
EXAMINATION: XR ERCP DATE: 01/06/2022 13:30 CDT INDICATION: POSSIBLE STONES, AMPULLARY STENOSIS . TECHNIQUE: 12 fluoroscopic images of the right upper quadrant were obtained during ERCP. I was not pr esent during the procedure. Fluoroscopy exposure time was 180.9 seconds. Cumulative dose 68.80 mGy. COMPARISON: MR MRCP 01/06/2022 FINDINGS: Endoscopic catheterization of the cystic duct. The common duct is dilated. There is no definite filli ng defect. IMPRESSION: Fluoroscopic documentation of ERCP. Reviewed, dictated and finalized at location K.
--- NOTE | ~2022-01-05 | MR_ITS ---
EXAMINATION: MR MRCP wo/w con/w 3D wo ind DATE: 01/06/2022 07:09 INDICATION: Abnormal liver function tests. TECHNIQUE: Magnetic resonance imaging (MRI) of the abdomen was performed without and with 16 mL Multi Tanja intravenous contrast. Sequences included coronal T2-weighted FS FSE, coronal T2-weighted FSE, a xial T1-weighted LAVA, coronal FS FIESTA, axial dual-echo T1-weighted SPGR, coronal lava-FLEX, sagitt al T2-weighted FSE, axial T2-weighted FSE, and axial DWI. Thick-slab T2-weighted FSE images were obta ined for magnetic resonance cholangiopancreatography (MRCP). Maximum intensity projection 3-D reconst ructions of the volumetric data were created by the technologist. Postcontrast sequences included cor onal LAVA-flex and time course of axial T1-weighted LAVA. COMPARISON: None. FINDINGS: ABDOMEN MRI: There is diffuse hepatic steatosis. There is moderate intrahepatic biliary duct dilatati on. The gallbladder is absent. The spleen, pancreas, adrenal glands, and kidneys are normal. There ar e no dilated loops of bowel. There are no pathologically enlarged lymph nodes. There is no free intra peritoneal fluid. ABDOMEN MRCP: The common duct is dilated to 14 mm. No choledocholithiasis. IMPRESSION: 1. Moderate intrahepatic and extrahepatic biliary duct dilatation. No choledocholithiasis. Reviewed, dictated and finalized at location B. IMPRESSION: 1. Moderate intrahepatic and extrahepatic biliary duct dilatation. No choledoch olithiasis.
[2022-01-05 12:49] VITALS: BP 158/83; PULSE 103; RESP 16; TEMP 36.3; O2SAT 98
[2022-01-05 13:11] LABS: Basophils Percent Auto 0.4 % (0.2-1.2); Eosinophils Absolute Auto 0.1 K/mm3 (0-0.3); Eosinophils Percent Auto 1.4 % (0-4.4); Hematocrit 45.8 % (37.0-47.0); Hemoglobin 15.7 g/dL (12.0-15.0); Immature Granulocyte Absolute 0.06 K/mm3 (0.00-0.031); Immature Granulocyte Percent A 0.6 % (0-0.5); Lymphocytes Absolute Auto 1.66 K/mm3 (0.9-3.2); Lymphocytes Percent Auto 16.4 % (18.3-44.2); Mean Corpuscular HGB Conc 34.3 g/dl (32-36); Mean Corpuscular Volume 90.3 fl (80-100); Mean Platelet Volume 9.5 fl (7.4-10.4); Monocytes Absolute Auto 0.4 K/mm3 (0.1-0.6); Monocytes Percent Auto 3.8 % (2.6-8.5); Neutrophils Absolute Auto 7.9 K/mm3 (1.3-6.7); Neutrophils Percent Auto 77.4 % (45.5-73.1); Platelet Count Result 382 k/mm3 (150-375); Red Blood Count 5.07 M/mm3 (4.2-5.4); Red Cell Distribution Width 12.2 % (11.5-14.5); White Blood Count 10.2 K/mm3 (4.5-10.0)
[2022-01-05 13:22] LABS: Alanine Aminotransferase 35 U/L (6-35); Albumin Level 4.8 g/dL (3.5-5.1); Alkaline Phosphatase 148 U/L (38-126); Anion Gap 7 mmol/L (8-16); Aspartate Amino Transferase 49 U/L (14-36); Bilirubin,Total 1.3 mg/dL (0.2-1.3); Blood Urea Nitrogen 14 mg/dL (7-17); Calcium 9.6 mg/dL (8.4-10.2); Carbon Dioxide 26 mmol/L (22-30); Chloride 106 mmol/L (98-107); Estimated CRCL calculation 101 ml/min; Estimated Glomerular Filt Rate > 60; Glucose 101 mg/dL (65-110); Lipase 76 U/L (23-300); Potassium 4.2 mmol/L (3.4-5.0); Sodium 139 mmol/L (137-145)
[2022-01-05 14:41] LABS: Appearance Urine Clear (Clear); Bilirubin Urine 1+ (Negative); Blood Urine Negative (Negative); Color Urine Yellow (Yellow); Glucose Urine UA Negative (Negative); Ketones Urine 1+ mg/dL (Negative); Leukocyte Esterase Ur Negative LEU/UL (Negative); Nitrate Urine Negative (Negative); Protein Urine Trace mg/dL (Negative); Urobilinogen Urine 0.2 mg/dL (<2.0); pH Urine 8.5 (5.0-9.0)
[2022-01-05 14:45] LABS: Bacteria Urine Trace /hpf; Mucus Urine Few /lpf; RBC Urine 0-2 /hpf (0-2); Squamous Epithelial Cell Urine Few /hpf (Few); WBC Urine 0-3 /hpf
[2022-01-05 14:51] LABS: Add Urine Microscopic? YES
--- NOTE | 2022-01-05 15:16 | ED.ABDPAIN ---
HPI - Abdominal Pain General Chief Complaint: Abdominal Pain Stated Complaint: abd pain Time Seen by Provider: 01/05/22 14:56 Source: patient Mode of arrival: ambulatory Limitations: no limitations History of Present Illness HPI narrative: 51 y/o female presents to the ER today for complaints of RUQ abdominal pain. She has been having this pain off and on for a couple of months. This episode started on Tuesday. She has had nausea/vomiting and diarrhea. She has not been able to hold anything down. She was seen at [facility] at the end of November. CT showed CBD to be dilated and MRCP was recommended. She was discharged to home and given follow up but she won't see that provider until next week. No fever or chills. No cough or chest congestion. Related Data Home Medications Medication Instructions Recorded Confirmed tizanidine 4 mg PO Q8H PRN 06/18/21 10/05/21 cetirizine [Zyrtec] 10 mg PO DAILY 07/14/21 10/05/21 montelukast [Singulair] 10 mg PO DAILY 07/14/21 10/05/21 pantoprazole 40 mg PO QAM 07/14/21 10/05/21 rosuvastatin 5 mg PO DAILY 07/14/21 10/05/21 albuterol sulfate 2.5 mg INHALATION PRN PRN 10/03/21 10/05/21 raloxifene 60 mg PO DAILY 10/03/21 10/05/21 tramadol 50 mg PO PRN PRN 10/03/21 10/05/21 Allergies Allergy/AdvReac Type Severity Reaction Status Date / Time adhesive tape Allergy Blister Verified 12/08/21 11:36 amlodipine Allergy Hives Verified 12/08/21 11:36 Penicillins Allergy Hives Verified 12/08/21 11:36 tamoxifen Allergy Hives Verified 12/08/21 11:36 Review of Systems Constitutional: Constitutional: Denies chills and Denies fever(s) Eyes: Eyes: Reports no additional eye complaints ENT: Denies dizziness, Denies nasal congestion and Denies sore throat Cardiovascular: Cardiovascular: Denies chest pain Respiratory: Respiratory: Denies chest congestion, Denies cough, Denies dyspnea and Denies wheezing Gastrointestinal: Gastrointestinal: Reports abdominal pain, Reports diarrhea, Reports nausea and Reports vomiting Genitourinary: Genitourinary: Reports no additional female genitourinary complaints Musculoskeletal: Musculoskeletal: Reports no additional musculoskeletal complaints and Denies back pain Integumentary/Breasts: Skin/Breast: Reports system reviewed and no additional complaints, except as docu and Denies rash Neurologic: Denies dizziness and Denies headache(s) Psychiatric: Psychiatric: Reports no additional psychiatric complaints Endocrine: Endocrine: Reports no additional endocrine complaints and Denies fatigue Hematologic/Lymphatic: Hematologic/Lymphatic: Reports no additional hematologic/lymphatic complaints Allergic/Immunologic: Allergic/Immunologic: Reports no additional allergic/immunologic complaints PMFSH Past Medical History Medical History Anxiety Asthma Depression GERD (gastroesophageal reflux disease) Hx of migraines Hyperlipidemia Hypertension (normal spontaneous vaginal delivery) x2 Pseudoangiomatous stromal hyperplasia of breast 2012 Surgical History Surgical History H/O breast biopsy H/O oophorectomy History of bowel resection small intestine Hx of appendectomy S/P laparoscopic cholecystectomy Social History Social History Smoking status: Never smoker Alcohol intake: never Substance use: never Substance use type: does not use Gender identity (if verbalized by the patient): Female Spiritual care concerns: No Exam Const: General: no acute distress and alert Orientation/consciousness: patient oriented x3 HENMT: Head: normal to inspection Eyes: Conjunctivae: conjunctivae normal Neck: Neck: normal visual inspection Chest: Chest palpation & inspection: normal inspection of the chest Resp: Effort & Inspection: normal respiratory effort Cardio:
[2022-01-05] MEDS: SODIUM CHLORIDE 0.9% IV 1,000 ML 999 ML IV CONT (15:30)
[2022-01-05] MEDS: HYDROmorphone HCL INJ (*CRX) 1 MG/ML SYR 0.5 MG IV PUSH ×4 (15:30→21:42)
[2022-01-05] MEDS: ONDANSETRON INJ 4 MG/2 ML VIAL IV PUSH ×2 (15:31→21:43)
[2022-01-05] MEDS: SODIUM CHLORIDE 0.9% IV 1,000 ML 125 ML IV CONT (16:42)
--- NOTE | 2022-01-05 16:43 | WPDGICN ---
Assessment and Plan Assessment and plan (1) Right upper quadrant pain: Code(s): R10.11 - Right upper quadrant pain Status: Acute Assessment and Plan: this suggest biliary tract disease. Given her bile duct dilatation seen on recent CT scan, I suspect she has choledocholithiasis. I told that we will schedule her for an MRCP. I also explained to her that she may need ERCP. MRCP does not always pick pack worker biliary sludge but would likely show stones. Would also exclude other pathology that could cause biliary obstruction such as tumor of the ampulla or pancreas. I explained ERCP, these have been endoscoped to enter her bile duct to perform a sphincterotomy and hopefully remove sludge. I explained that stents are sometimes used to keep of the bile duct open if there is scar tissue. Her pain she describes as a 'tightness' as if she would be extremely bloated even though visually she is not distended. (2) Abnormal liver function tests: Code(s): R79.89 - Other specified abnormal findings of blood chemistry Status: Acute Assessment and Plan: Daughter showed me previous liver enzyme elevations that she had recorded on her phone. The fact that her transaminases and alkaline phosphatase increase and return normal repeatedly suggest passage of sludge or stones. A chronic liver disease would be more likely that show persistent elevations of liver enzymes. (3) Chronic diarrhea: Code(s): K52.9 - Noninfective gastroenteritis and colitis, unspecified Status: Acute Assessment and Plan: It sounds like this is probably bile salt diarrhea. 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 I told her that I do not think this would contribute to her present symptoms. It does not sound like she has had small bowel obstruction type symptoms. GI Consult Note Consult date/time: 01/05/22 16:43 HPI: Chrissy Kilgore is a 51 year old female who comes emergency room with nausea and vomiting and upper abdominal pain. The pain is primarily in the right upper quadrant. She has been getting episodes like this for the last few months and in fact had recently been referred to a scaling machine operator, but the pain and the nausea became so severe that she came into the emergency room. Recently she was investigated with a CT scan that showed a dilated bile duct and dilated intrahepatic ducts. Her gallbladder had been removed about 10 years ago. She added as did her daughter, that in last few years she has had from time to time very high liver enzymes which then would return to normal. She denies seeing dark urine. She has had no fever chills. When she was in the emergency room for chest pain a month or so ago she had an elevated bilirubin. Today her bilirubin is normal but alkaline phosphatase is elevated at 148, as is AST-- 49. White blood count is also slightly elevated. The patient has not had weight loss. She has had problems with her bowels. At times her bowels are very loose and yellowish. She may have the urge to have a bowel movement almost immediately after eating. This has started since her cholecystectomy. She has never been offered a bile sequestrant for those symptoms as far she knows. Several years ago she had a large ovarian cyst. Was attached to her small bowel and was causing ischemia, almost gangrene. She required surgery with resection of part of her small bowel at that time. Review of Systems Review of Systems: All systems reviewed & are unremarkable except as noted in HPI and below PMFSH Past Medical History Medical History (Updated
[2022-01-05 17:38] VITALS: BP 136/88; PULSE 78; RESP 16; TEMP 36.8; O2SAT 100
[2022-01-05 17:59] VITALS: BMI 28.7
--- NOTE | 2022-01-05 18:20 | ADMGEN ---
This patient, Chrissy Kilgore, was admitted to [facility] Surg Room 320-01 at 1750. Patient/family oriented to hospital policies and general routines including ID bracelet, bed and alarms, visiting hours, pain management, procedures, bathroom and other care routines, personal items, smoking policy, room service/diet, and visiting hours. Information on how to activate the Rapid Response Team has been discussed. Patient/Family are encouraged to report perceived risks to care and to ask questions if they do not understand what they are told or what they should do.
[2022-01-05 20:38] VITALS: BP 147/92; PULSE 56; RESP 16; TEMP 36.5; O2SAT 100
[2022-01-05 20:39] VITALS: BMI 29.2
[2022-01-05 21:05] VITALS: PULSE 59; O2SAT 98
[2022-01-05] MEDS: SODIUM CHLORIDE 0.9% IV 1,000 ML 100 ML IV CONT (21:25)
--- NOTE | 2022-01-05 21:30 | PM.IMHP ---
H&P: HPI History of Present Illness Date/Time: Patient was placed observation status for expected length of stay less than 23 hours for management, will plan to re-evaluate tomorrow for improvement. 01/05/22 21:30 Chief Complaint: Abdominal pain Narrative: Ms. Kilgore is a 51-year-old female who presented to the emergency room with complaints of right upper quadrant pain. Patient had been seen at [facility] on 12/16/[address] abdomen pelvis with contrast. At that time it was noted that there was mild intrahepatic biliary ductal dilatation and common bile duct measuring up to 1.4 cm. This is more prominent then even typically seen in patients with prior cholecystectomy. Correlate with liver function test and consider MRCP. Patient was to follow-up with surgery on January 11, but over the last 4 days the patient has been having increasing abdominal pain and bloating. Patient states that today the bloating and abdominal pain has become severe and she decided to come to emergency room for further evaluation. Patient states she has been having multiple bowel movements and today she was incontinent of stool. Patient denies any fever chills. Patient states she has been nauseated but had no vomiting. Patient denies any dysuria, hematuria, frequency, or urgency. 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 Patient states she has been taking all medications at home without any difficulty. Review of Systems Review of Systems: A 12 point review of systems was completed patient all pertinent positive and negative per HPI the remainder are unremarkable. [facility] Past Medical History Medical History Anxiety Asthma Depression GERD (gastroesophageal reflux disease) Hx of migraines Hyperlipidemia Hypertension (normal spontaneous vaginal delivery) x2 Pseudoangiomatous stromal hyperplasia of breast 2012 Surgical History Surgical History H/O breast biopsy H/O oophorectomy History of bowel resection small intestine Hx of appendectomy S/P laparoscopic cholecystectomy Social History Social History Smoking status: Never smoker Alcohol intake: never Substance use: never Substance use type: does not use Gender identity (if verbalized by the patient): Female Spiritual care concerns: No Meds Home Medications and Allergies Home Medications Medication Instructions Recorded Confirmed Type fluticasone propionate [Flonase 1 spray INTRANASAL DAILY PRN #16 g 03/26/21 01/05/22 Rx Allergy Relief] albuterol sulfate 1 inhalation INHALATION Q4-6H PRN 04/15/21 01/05/22 Rx #1 each tizanidine 4 mg PO Q8H PRN 06/18/21 01/05/22 History cetirizine [Zyrtec] 10 mg PO DAILY 07/14/21 01/05/22 History montelukast [Singulair] 10 mg PO DAILY 07/14/21 01/05/22 History pantoprazole 40 mg PO QAM 07/14/21 01/05/22 History rosuvastatin 5 mg PO DAILY 07/14/21 01/05/22 History albuterol sulfate 2.5 mg INHALATION PRN PRN 10/03/21 01/05/22 History raloxifene 60 mg PO DAILY 10/03/21 01/05/22 History tramadol 50 mg PO PRN PRN 10/03/21 01/05/22 History hydralazine 25 mg tablet 25 mg PO TID #90 tablet 10/19/21 01/05/22 Rx omeprazole 40 mg PO DAILY #30 cap 12/08/21 01/05/22 Rx ondansetron 4 mg PO Q6H PRN #10 tablet 12/08/21 01/05/22 Rx Allergies Allergy/AdvReac Type Severity Reaction Status Date / Time adhesive tape Allergy Blister Verified 12/08/21 11:36 amlodipine Allergy Hives Verified 12/08/21 11:36 Penicillins Allergy Hives Verified 12/08/21 11:36 tamoxifen Allergy Hives Verified 12/08/21 11:36 Vital Signs Vital Signs - 24 hr 01/05/22 12:49 01/05/22 17:38 01/05/22 20:38 Temperature 36.3 C L 36.8 C 36.5 C
[2022-01-05 21:41] VITALS: BP 147/92; PULSE 56; RESP 16; TEMP 36.5; O2SAT 100
[2022-01-06] VITALS (13 sets, daily range): BP systolic 129–175; BP diastolic 80–107; PULSE 57–87; RESP 18–23; TEMP 35.8–36.6; O2SAT 97–100
[2022-01-06] MEDS: SODIUM CHLORIDE 0.9% IV 1,000 ML 100 ML IV CONT ×2 (02:01→12:10)
[2022-01-06] MEDS: HYDROmorphone HCL INJ (*CRX) 1 MG/ML SYR 0.5 MG IV PUSH ×2 (03:57→08:24)
[2022-01-06] MEDS: ONDANSETRON INJ 4 MG/2 ML VIAL IV PUSH ×3 (03:57→14:46)
--- NOTE | 2022-01-06 06:23 | PC.NURSE ---
Pt to MRI via wheelchair.
[2022-01-06 06:35] LABS: Basophils Percent Auto 0.4 % (0.2-1.2); Eosinophils Absolute Auto 0.2 K/mm3 (0-0.3); Immature Granulocyte Absolute 0.03 K/mm3 (0.00-0.031); Immature Granulocyte Percent A 0.6 % (0-0.5); Lymphocytes Absolute Auto 1.15 K/mm3 (0.9-3.2); Lymphocytes Percent Auto 21.8 % (18.3-44.2); Mean Corpuscular HGB Conc 32.5 g/dl (32-36); Mean Corpuscular Hemoglobin 30.3 pg (26-34); Mean Corpuscular Volume 93.2 fl (80-100); Mean Platelet Volume 9.5 fl (7.4-10.4); Monocytes Absolute Auto 0.5 K/mm3 (0.1-0.6); Monocytes Percent Auto 8.7 % (2.6-8.5); Neutrophils Absolute Auto 3.5 K/mm3 (1.3-6.7); Neutrophils Percent Auto 65.5 % (45.5-73.1); Platelet Count Result 279 k/mm3 (150-375); Red Blood Count 4.29 M/mm3 (4.2-5.4); Red Cell Distribution Width 12.1 % (11.5-14.5); White Blood Count 5.3 K/mm3 (4.5-10.0)
[2022-01-06 06:49] LABS: Alanine Aminotransferase 75 U/L (6-35); Albumin Level 3.7 g/dL (3.5-5.1); Alkaline Phosphatase 123 U/L (38-126); Anion Gap 6 mmol/L (8-16); Aspartate Amino Transferase 137 U/L (14-36); Bilirubin,Total 1.7 mg/dL (0.2-1.3); Blood Urea Nitrogen 13 mg/dL (7-17); Calcium 8.2 mg/dL (8.4-10.2); Carbon Dioxide 23 mmol/L (22-30); Chloride 110 mmol/L (98-107); Estimated CRCL calculation 102 ml/min; Estimated Glomerular Filt Rate > 60; Glucose 91 mg/dL (65-110); Magnesium 2.2 mg/dL (1.6-2.3); Sodium 139 mmol/L (137-145)
--- NOTE | 2022-01-06 10:11 | PC.NURSE ---
pt has no iv access attempted x2, unsuccessful, IV nurse Laisha called.
--- NOTE | 2022-01-06 12:15 | PC.NURSE ---
pt transported to gi lab for ERcp.
[2022-01-06] MEDS: diphenhydrAMINE HCl INJ 50 MG/ML VIAL 6.25 MG IV PUSH ×2 (12:34→14:30)
[2022-01-06] MEDS: LACTATED RINGERS 1,000 ML 150 ML IV CONT (12:34)
--- NOTE | 2022-01-06 12:47 | WPDANESEPPF ---
Anes - Initial Pre Proc Eval Procedure: Operation Date: 01/06/22 14:15 Proposed Procedures p Endoscopic Retro Cholangiopancreatogram - Ethan Arce MD Date/Time: 01/06/22 12:47 Surgeon: Lima Healy PA-C Pre Op Diagnosis: Ruq abd pain Patient Data Age: 51 Gender: F Height: 1.68 m Weight: 82 kg Last Vital Signs Temp 96.8 F L 01/06/22 12:35 Pulse 59 L 01/06/22 12:35 Resp 20 01/06/22 12:35 BP 162/88 H 01/06/22 12:35 Pulse Ox 98 01/06/22 12:35 Allergies Allergy/AdvReac Type Severity Reaction Status Date / Time adhesive tape Allergy Blister Verified 01/06/22 12:30 amlodipine Allergy Hives Verified 01/06/22 12:30 Penicillins Allergy Hives Verified 01/06/22 12:30 tamoxifen Allergy Hives Verified 01/06/22 12:30 Home Medications Medication Instructions Recorded Confirmed Type fluticasone propionate [Flonase 1 spray INTRANASAL DAILY PRN #16 g 03/26/21 01/05/22 Rx Allergy Relief] albuterol sulfate 1 inhalation INHALATION Q4-6H PRN 04/15/21 01/05/22 Rx #1 each tizanidine 4 mg PO Q8H PRN 06/18/21 01/05/22 History cetirizine [Zyrtec] 10 mg PO DAILY 07/14/21 01/05/22 History montelukast [Singulair] 10 mg PO DAILY 07/14/21 01/05/22 History pantoprazole 40 mg PO QAM 07/14/21 01/05/22 History rosuvastatin 5 mg PO DAILY 07/14/21 01/05/22 History albuterol sulfate 2.5 mg INHALATION PRN PRN 10/03/21 01/05/22 History raloxifene 60 mg PO DAILY 10/03/21 01/05/22 History tramadol 50 mg PO PRN PRN 10/03/21 01/05/22 History hydralazine 25 mg tablet 25 mg PO TID #90 tablet 10/19/21 01/05/22 Rx omeprazole 40 mg PO DAILY #30 cap 12/08/21 01/05/22 Rx ondansetron 4 mg PO Q6H PRN #10 tablet 12/08/21 01/05/22 Rx Laboratory Tests 01/05/22 01/05/22 01/05/22 13:01 13:01 14:29 WBC 10.2 K/mm3 H K/mm3 (4.5-10.0) RBC 5.07 M/mm3 M/mm3 (4.2-5.4) Hgb 15.7 g/dL H g/dL (12.0-15.0) Hct 45.8 % % (37.0-47.0) MCV 90.3 fl fl (80-100) MCH 31.0 pg pg (26-34) MCHC 34.3 g/dl g/dl (32-36) RDW 12.2 % % (11.5-14.5) Plt Count 382 k/mm3 H k/mm3 (150-375) MPV 9.5 fl fl (7.4-10.4) Immature Gran % (Auto) 0.6 % H % (0-0.5) Neut % (Auto) 77.4 % H % (45.5-73.1) Lymph % (Auto) 16.4 % L % (18.3-44.2) Castro % (Auto) 3.8 % % (2.6-8.5) Eos % (Auto) 1.4 % % (0-4.4) Baso % (Auto) 0.4 % % (0.2-1.2) Lymph # (Auto) 1.66 K/mm3 K/mm3 (0.9-3.2) Castro # (Auto) 0.4 K/mm3 K/mm3 (0.1-0.6) Eos # (Auto) 0.1 K/mm3 K/mm3 (0-0.3) Baso # (Auto) 0.0 K/mm3 K/mm3 (0.0-0.1) Abs Immat Gran (auto) 0.06 K/mm3 H K/mm3 (0.00-0.031) Absolute Neuts (auto) 7.9 K/mm3 H K/mm3 (1.3-6.7) Absolute Nucleated RBC 0.0 K/mm3 K/mm3 (0.0-0.012) Nucleated RBC % 0.0 % % (0.0-0.2) Sodium 139 mmol/L mmol/L (137-145) Potassium 4.2 mmol/L mmol/L (3.4-5.0) Chloride 106 mmol/L mmol/L (98-107) Carbon Dioxide 26 mmol/L mmol/L (22-30) Anion Gap 7 mmol/L L mmol/L (8-16) BUN 14 mg/dL mg/dL (7-17) Creatinine 0.60 mg/dL L mg/dL (0.7-1.0) Estim Creat Clear Calc 101 ml/min ml/min Estimated GFR > 60 (59 - ) Glucose 101 mg/dL mg/dL (65-110) Calcium 9.6 mg/dL mg/dL (8.4-10.2) Magnesium Total Bilirubin 1.3 mg/dL mg/dL (0.2-1.3) AST 49 U/L H U/L (14-36) ALT 35 U/L U/L (6-35) Alkaline Phosphatase 148 U/L H U/L (38-126) Total Protein 8.0 g/dL g/dL (6.3-8.2) Albumin 4.8 g/dL g/dL (3.5-5.1) Lipase 76 U/L U/L (23-300) Urine Color Yellow (Yellow) Urine Appearance Clear (Clear) Urine pH 8.5 (5.0-9.0) Ur Specific [place] 1.020 (1.001-1.035) Urine
[2022-01-06] MEDS: INDOMETHACIN 50 MG SUPP.RECT 100 MG RECTAL (13:09)
--- NOTE | 2022-01-06 14:58 | SUR.PHASEII ---
Patient nauseated and vomiting. RN notified Dr. Naqvi and Dr. Arce. Dr Naqvi asked for benadryl and zofran to be given, RN gave which provided no relief. RN to administer dilaudid per Dr. Arce.
[2022-01-06] MEDS: HYDROmorphone HCL INJ (*CRX) 1 MG/ML SYR IV PUSH ×3 (15:06→22:37)
--- NOTE | 2022-01-06 15:16 | SUR.PHASEII ---
Patient states her nausea and pain are improving post dilaudid administration
--- NOTE | 2022-01-06 15:24 | PC.NURSE ---
pt back from ERCP.
--- NOTE | 2022-01-06 16:06 | PM.IMPN ---
Progress Note: A&P Assessment and Plan (1) Right upper quadrant pain: Code(s): R10.11 - Right upper quadrant pain Status: Acute Assessment and Plan: Patient presented with right upper quadrant pain. 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 Suspect she was passing small stones. Underwent sphincterotomy which will of late improved symptoms Continue with supportive care. Analgesics available as needed. Stop Zofran given lack of improvement and transition to Compazine. Still with pain, nausea, and vomiting. Will maintain NPO status overnight except meds with sips and slowly begin to advance diet tomorrow as tolerated (2) Common bile duct dilatation: Code(s): K83.8 - Other specified diseases of biliary tract Status: Acute Assessment and Plan: See above (3) Abnormal liver function tests: Code(s): R79.89 - Other specified abnormal findings of blood chemistry Status: Acute Assessment and Plan: Increase in AST and ALT today. Total bilirubin 1.7 Patient now s/p sphincterotomy Monitor LFTs with a.m. labs (4) Hypertension: Code(s): I10 - Essential (primary) hypertension Status: Acute Assessment and Plan: Blood pressure has been elevated above target, likely worsened due to pain and missed antihypertensives. Last BP 162/95 Resume home p.o. hydralazine 25 mg t.i.d. Will need to transition to IV hydralazine if patient is not able to keep down medications Monitor blood pressure trends closely Subjective Date/time seen: 01/06/22 16:06 Interval history: Date of service: 01/06/2022 Chrissy Kilgore is a 51-year-old female with a history of hypertension, hyperlipidemia, migraines, depression, anxiety who is seen in follow-up for right upper quadrant pain. 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 She has been vomiting today and was actively vomiting when I entered the room. She states the antiemetics are not providing much relief. She endorses right upper quadrant and mid epigastric pain that she rates as 6/10. She has noticed no improvement throughout the admission. She does have some shortness of breath and pleuritic discomfort due to the pain. She had a bowel movement yesterday. Denies passing flatus today. Denies fever or chills. Denies lower abdominal pain, cramping, or bloating. She does complain of a mild headache. She believes this is due to not taking her blood pressure medications. Denies chest pain or palpitations. Denies lower extremity edema. Review of Systems Review of Systems: All systems reviewed & are unremarkable except as noted in HPI and below Exam Narrative: General: Well-nourished, well-appearing 51-year-old female, sitting up in bed vomiting into emesis bag Neuro: awake, alert and oriented x4, speech clear, no focal neuro deficits noted HEENMT: normocephalic, atraumatic, EOMI, sclerae anicteric, moist oral mucosa Respiratory: clear to auscultation bilaterally, nonlabored breathing Cardio: regular rate, regular rhythm with S1-S2 Abdomen: nondistended, normoactive bowel sounds, soft, tender to palpation right upper quadrant Extremities: no edema, erythema, or tenderness to palpation, DP pulses 2+ bilaterally Skin: no rashes or lesions, warm and dry Psych: appropriate mood and affect, judgment and insight intact Objective Data Vital Signs Vital Signs: Vital Signs - 24 hr 01/05/22 17:38 01/05/22 20:38 01/05/22 21:05 Temperature 98.3 F 97.7 F Pulse Rate 78 56 L 59 L Respiratory Rate 16 16 Blood Pressure 136/88 147/92 H Pulse Oximetry 100 100 98 01/05/22 21:41 01/06/22 05:26 01/06/22 08:00 Temperature 97.7 F 96.8 F L Pulse Rate 56 L 57 L 57 L
--- NOTE | 2022-01-06 17:21 | PCRCNOTE ---
Entered pt's room to ask about CPAP orders, pt states she is not bringing hers from home and is refusing the hospital's. RT informed that during her stay if she feels like she needs a CPAP to inform department.
[2022-01-06] MEDS: hydrALAZINE HCL 25 MG TABLET PO (17:51)
[2022-01-06] MEDS: PROCHLORPERAZINE EDISYLATE 10 MG/2 ML VIAL IV PUSH (18:36)
[2022-01-06] MEDS: SODIUM CHLORIDE 0.9% IV 1,000 ML 80 ML IV CONT (22:37)
[2022-01-07] MEDS: PROCHLORPERAZINE EDISYLATE 10 MG/2 ML VIAL IV PUSH (01:27)
[2022-01-07] MEDS: HYDROmorphone HCL INJ (*CRX) 1 MG/ML SYR IV PUSH ×3 (05:37→13:48)
[2022-01-07 06:00] VITALS: BP 146/81; PULSE 79; RESP 18; TEMP 36.8; O2SAT 99
--- NOTE | 2022-01-07 06:58 | WPDGIPROGNO ---
Progress Note: A&P Assessment and Plan (1) Right upper quadrant pain: Code(s): R10.11 - Right upper quadrant pain Status: Acute Assessment and Plan: this suggest biliary tract disease. Given her bile duct dilatation seen on recent CT scan, I suspect she has choledocholithiasis. I told that we will schedule her for an MRCP. I also explained to her that she may need ERCP. MRCP does not always coal picker biliary sludge but would likely show stones. Would also exclude other pathology that could cause biliary obstruction such as tumor of the ampulla or pancreas. I explained ERCP, these have been endoscoped to enter her bile duct to perform a sphincterotomy and hopefully remove sludge. I explained that stents are sometimes used to keep of the bile duct open if there is scar tissue. Her pain she describes as a 'tightness' as if she would be extremely bloated even though visually she is not distended. 01/07 pain is somewhat improved but became worse after her ERCP yesterday, not surprisingly. She has been taking hydromorphone about every 4 hours. (2) Abnormal liver function tests: Code(s): R79.89 - Other specified abnormal findings of blood chemistry Status: Acute Assessment and Plan: Daughter showed me previous liver enzyme elevations that she had recorded on her phone. The fact that her transaminases and alkaline phosphatase increase and return normal repeatedly suggest passage of sludge or stones. A chronic liver disease would be more likely that show persistent elevations of liver enzymes. 01/07 Today's LFTs are pending, but probably will be much lower, possibly more elevated after the procedure yesterday (3) Chronic diarrhea: Code(s): K52.9 - Noninfective gastroenteritis and colitis, unspecified Status: Acute Assessment and Plan: It sounds like this is probably bile salt diarrhea. 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 I told her that I do not think this would contribute to her present symptoms. It does not sound like she has had small bowel obstruction type symptoms. Subjective Date/time seen: 01/07/22 06:58 she is still fairly nauseated. No longer vomiting. She feels that the hydromorphone is what is causing her nausea. She is still having pain in the epigastric area but not as much as yesterday. Again discussed findings of her ERCP, severe ampullary stenosis , treated with sphincterotomy after we were able to gain access through the stenotic ampulla, with slight sludge just inside the sphincter. She is not up to eating just yet. I will change her anti nausea regimen so that she gets Zofran at the same time as her pain medication, in place of Compazine which she was getting q.6 hours Exam Const: General: alert Orientation/consciousness: patient oriented x3 Resp: Auscultation: clear to auscultation bilaterally Cardio: Rhythm: regular rhythm GI: GI Palp: Yes abdominal tenderness ( epigastric and right upper quadrant), Yes Soft to palpation and No Guarding due to palpation present (GI) Auscultation: normal bowel sounds Neuro: General: patient oriented x3 Objective Data Vital Signs Vital Signs: Vital Signs - 24 hr 01/06/22 08:00 01/06/22 12:35 01/06/22 14:07 Temperature 36.0 C L 36.1 C L Pulse Rate 57 L 59 L 71 Respiratory Rate 18 20 18 Blood Pressure 162/88 H 152/93 H Pulse Oximetry 97 98 100 01/06/22 14:17 01/06/22 14:27 01/06/22 14:37 Temperature Pulse Rate 79 70 70 Respiratory Rate 18 23 H 20 Blood Pressure 161/88 H 162/105 H 175/95 H Pulse Oximetry 100 100 100 01/06/22 14:47 01/06/22
[2022-01-07 07:04] LABS: Alanine Aminotransferase 132 U/L (6-35); Albumin Level 3.9 g/dL (3.5-5.1); Alkaline Phosphatase 169 U/L (38-126); Anion Gap 8 mmol/L (8-16); Aspartate Amino Transferase 192 U/L (14-36); Bilirubin,Total 6.2 mg/dL (0.2-1.3); Blood Urea Nitrogen 8 mg/dL (7-17); Calcium 8.3 mg/dL (8.4-10.2); Carbon Dioxide 22 mmol/L (22-30); Chloride 106 mmol/L (98-107); Estimated CRCL calculation 120 ml/min; Estimated Glomerular Filt Rate > 60; Glucose 101 mg/dL (65-110); Potassium 3.6 mmol/L (3.4-5.0); Sodium 136 mmol/L (137-145)
[2022-01-07] MEDS: hydrALAZINE HCL 25 MG TABLET PO ×3 (08:27→16:54)
[2022-01-07] MEDS: PANTOPRAZOLE 40 MG TABLET PO (08:27)
[2022-01-07] MEDS: ONDANSETRON INJ 4 MG/2 ML VIAL IV PUSH ×4 (09:42→21:36)
[2022-01-07] MEDS: SODIUM CHLORIDE 0.9% IV 1,000 ML 125 ML IV CONT (09:42)
--- NOTE | 2022-01-07 10:23 | WPDANESPN ---
Anes - Prog Note Post-Op Date/Time: 01/07/22 10:23 Cardiovascular status: normal Respiratory status: normal Airway patency: baseline Mental status: baseline Post-Op hydration status: normal Vital Signs: Last Vital Signs Temp 36.8 C 01/07/22 06:00 Pulse 79 01/07/22 06:00 Resp 18 01/07/22 06:00 BP 146/81 H 01/07/22 06:00 Pulse Ox 99 01/07/22 06:00 Pain Score (VAS): 2 I/O: Intake & Output 01/06/22 01/07/22 01/07/22 23:59 07:59 15:59 Intake Total 3896 763 3582 Output Total 1200 500 Balance 1000 -840 550 Laboratory Tests 01/06/22 06:13 01/07/22 06:28 01/07/22 06:28 Sodium 136 L Potassium 3.6 Chloride 106 Carbon Dioxide 22 Anion Gap 8 BUN 8 D Creatinine 0.50 L Estim Creat Clear Calc 120 Estimated GFR > 60 Glucose 101 Calcium 8.3 L Total Bilirubin 6.2 H AST 192 H ALT 132 H Alkaline Phosphatase 169 H Total Protein 6.0 L Albumin 3.9 Post-procedural complaints: none Patient Feedback: Patient satisfied with anesthetic care.
--- NOTE | 2022-01-07 13:50 | PM.IMPN ---
Progress Note: A&P Assessment and Plan (1) Right upper quadrant pain: Code(s): R10.11 - Right upper quadrant pain Status: Acute Assessment and Plan: Patient presented with right upper quadrant pain. 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 Suspect she was passing small stones. Underwent sphincterotomy which will hopefully improve symptoms Continue with supportive care. Analgesics and antiemetics available as needed Patient still endorsing pain, nausea, and vomiting. Difficulty tolerating diet. Continue with gentle IV fluids until better tolerating diet. (2) Common bile duct dilatation: Code(s): K83.8 - Other specified diseases of biliary tract Status: Acute Assessment and Plan: See above (3) Abnormal liver function tests: Code(s): R79.89 - Other specified abnormal findings of blood chemistry Status: Acute Assessment and Plan: Continued upper trend in AST and ALT today. Bilirubin has increased to 6.2 May be elevated secondary to sphincterotomy yesterday. Expect downward trend following procedure Monitor LFTs with a.m. labs Gastroenterology following (4) Hypertension: Code(s): I10 - Essential (primary) hypertension Status: Acute Assessment and Plan: Blood pressure has been elevated above target, likely worsened due to pain and missed antihypertensives. Seems to be slowly improving. Last BP 146/81 Resume home p.o. hydralazine 25 mg t.i.d. Will need to transition to IV hydralazine if patient is not able to keep down medications Monitor blood pressure trends closely Subjective Date/time seen: 01/07/22 13:50 Interval history: Date of service: 01/07/2022 Chrissy Kilgore is a 51-year-old female with a history of hypertension, hyperlipidemia, migraines, depression, anxiety who is seen in follow-up for right upper quadrant pain. 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 She continues to feel poorly today. She endorse nausea and stated she has thrown up several times this morning. During my encounter she had another episode of clear emesis. States she is barely able to hold down water. She is going to try to eat some lunch today. She denies fevers or chills. Her pain is slightly improved today. She is not having pain in the right upper quadrant and is more concentrated in her epigastric region. Denies lower abdominal cramping or bloating. She is passing flatus today. No bowel movements. Reports regular urination. Denies dizziness, lightheadedness, weakness, shortness breath, cough, chest pain. Review of Systems Review of Systems: All systems reviewed & are unremarkable except as noted in HPI and below Exam Narrative: General: Well-nourished, well-appearing 51-year-old female, semi recumbent in bed Neuro: awake, alert and oriented x4, speech clear, no focal neuro deficits noted HEENMT: normocephalic, atraumatic, EOMI, sclerae anicteric Respiratory: clear to auscultation bilaterally, nonlabored breathing Cardio: regular rate, regular rhythm with S1-S2 Abdomen: nondistended, normoactive bowel sounds, soft, tender to palpation in epigastric region, no RUQ tenderness, no rigidity or guarding Extremities: no edema, erythema, or tenderness to palpation, DP pulses 2+ bilaterally Skin: no rashes or lesions, warm and dry Psych: appropriate mood and affect, judgment and insight intact Objective Data Vital Signs Vital Signs: Vital Signs - 24 hr 01/06/22 14:07 01/06/22 14:17 01/06/22 14:27 Temperature 97.0 F L Pulse Rate 71 79 70 Respiratory Rate 18 18 23 H Blood Pressure 152/93 H 161/88 H 162/105 H Pulse Oximetry 100 100 100 01/06/22 14:37 01/06/22 14:47 01/06/22
[2022-01-07 14:00] VITALS: BP 169/98; PULSE 88; RESP 24; TEMP 36.2; O2SAT 99
[2022-01-07] MEDS: ACETAMINOPHEN 325 MG TABLET 650 MG PO ×2 (16:54→21:39)
[2022-01-07] MEDS: SODIUM CHLORIDE 0.9% IV 1,000 ML 75 ML IV CONT (19:13)
[2022-01-07 21:55] VITALS: BP 164/90; PULSE 83; RESP 18; TEMP 36.6; O2SAT 97
[2022-01-08] MEDS: ONDANSETRON INJ 4 MG/2 ML VIAL IV PUSH ×6 (01:49→22:23)
[2022-01-08] MEDS: HYDROmorphone HCL INJ (*CRX) 1 MG/ML SYR 0.5 MG IV PUSH ×5 (02:50→21:22)
[2022-01-08 06:00] VITALS: BP 148/92; PULSE 79; RESP 18; TEMP 36.8; O2SAT 98
--- NOTE | 2022-01-08 06:55 | WPDGIPROGNO ---
Progress Note: A&P Assessment and Plan (1) Right upper quadrant pain: Code(s): R10.11 - Right upper quadrant pain Status: Acute Assessment and Plan: this suggest biliary tract disease. Given her bile duct dilatation seen on recent CT scan, I suspect she has choledocholithiasis. I told that we will schedule her for an MRCP. I also explained to her that she may need ERCP. MRCP does not always molded goods spot picker biliary sludge but would likely show stones. Would also exclude other pathology that could cause biliary obstruction such as tumor of the ampulla or pancreas. I explained ERCP, these have been endoscoped to enter her bile duct to perform a sphincterotomy and hopefully remove sludge. I explained that stents are sometimes used to keep of the bile duct open if there is scar tissue. Her pain she describes as a 'tightness' as if she would be extremely bloated even though visually she is not distended. 01/07 pain is somewhat improved but became worse after her ERCP yesterday, not surprisingly. She has been taking hydromorphone about every 4 hours. 01/08 today's blood work not yet available. I told the patient that if her LFTs remain elevated, we will take her back to endoscopy to hopefully enlarged the sphincterotomy site. Because there was some bleeding the other day I could not make the cut as big as I would have preferred. (2) Abnormal liver function tests: Code(s): R79.89 - Other specified abnormal findings of blood chemistry Status: Acute Assessment and Plan: Daughter showed me previous liver enzyme elevations that she had recorded on her phone. The fact that her transaminases and alkaline phosphatase increase and return normal repeatedly suggest passage of sludge or stones. A chronic liver disease would be more likely that show persistent elevations of liver enzymes. 01/07 Today's LFTs are pending, but probably will be much lower, possibly more elevated after the procedure yesterday 01/08 much improved today. Bilirubin is 1.9. Transaminases are lower.. (3) Chronic diarrhea: Code(s): K52.9 - Noninfective gastroenteritis and colitis, unspecified Status: Acute Assessment and Plan: It sounds like this is probably bile salt diarrhea. I explained to the patient that we will eventually put her on cholestyramine powder to help improve stool consistency (4) Elevated lipase: Code(s): R74.8 - Abnormal levels of other serum enzymes Status: Acute Assessment and Plan: Typically lipase is elevated after ERCP. I suspect however that she does have some pancreatitis given her persistent nausea and pain. We can try advancing her diet. I will likely send her home on pancreatic enzyme supplement for a couple of weeks. Subjective Date/time seen: 01/08/22 06:55 she states she had a better night. Yesterday she felt rough most of the day. She feels that the Dilaudid was making her feel sick and is doing better with a smaller dose. She is still quite nauseated. Pain is in the upper abdomen, particularly right upper quadrant. We discussed the fact her LFTs and bilirubin increased yesterday. My concern is that either sludge or something has come down into her distal duct above the sphincterotomy site, or, more likely the sphincterotomy needs to be enlarged. It was necessary to discontinue after a smaller than usual cut the other day because there was some bleeding. 12:01 Her bilirubin has come back down, 1.9 today. Transaminases also trending down. I think therefore we can try to feed her. Lipase is elevated as I suspected would be Exam Const: General: alert Orientation/consciousness: patient oriented x3 Resp: Auscultation: clear to auscultation bilaterally Cardio: Rhythm: regular rhythm GI: GI Palp: Yes abdominal tenderness ( per out upper abdomen, right greater than) and No Guarding due to palpation present (GI) Auscultation: normal bowel sounds Neuro: General
[2022-01-08 06:57] LABS: Hematocrit 37.6 % (37.0-47.0); Hemoglobin 12.4 g/dL (12.0-15.0); Mean Corpuscular Hemoglobin 30.6 pg (26-34); Mean Corpuscular Volume 92.8 fl (80-100); Mean Platelet Volume 9.7 fl (7.4-10.4); Platelet Count Result 257 k/mm3 (150-375); Red Blood Count 4.05 M/mm3 (4.2-5.4); White Blood Count 8.8 K/mm3 (4.5-10.0)
[2022-01-08 07:14] LABS: Alanine Aminotransferase 112 U/L (6-35); Albumin Level 3.9 g/dL (3.5-5.1); Alkaline Phosphatase 181 U/L (38-126); Anion Gap 11 mmol/L (8-16); Aspartate Amino Transferase 102 U/L (14-36); Bilirubin,Total 1.9 mg/dL (0.2-1.3); Blood Urea Nitrogen 4 mg/dL (7-17); Calcium 8.3 mg/dL (8.4-10.2); Carbon Dioxide 19 mmol/L (22-30); Chloride 107 mmol/L (98-107); Estimated CRCL calculation 146 ml/min; Estimated Glomerular Filt Rate > 60; Glucose 78 mg/dL (65-110); Potassium 3.4 mmol/L (3.4-5.0); Sodium 137 mmol/L (137-145)
[2022-01-08 07:37] LABS: Lipase 2460 U/L (23-300)
--- NOTE | 2022-01-08 08:48 | P.PNIM_ITS ---
Progress Note: A&P Assessment and Plan (1) Right upper quadrant pain: Code(s): R10.11 - Right upper quadrant pain Status: Acute Assessment and Plan: Patient presented with right upper quadrant pain. 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 Suspect she was passing small stones. * Underwent sphincterotomy which will hopefully improve symptoms. GI is already following, advised if her LFTs remain elevated, will plan to enlarge sphincterotomy site. * Continue with supportive care. Analgesics and antiemetics available as needed * Patient still endorsing pain, nausea, and vomiting. Difficulty tolerating diet. * Continue IVF at slight increase rate. (2) Elevated lipase: Code(s): R74.8 - Abnormal levels of other serum enzymes Status: Acute Assessment and Plan: S/P ERCP w/ sphincterotomy on 01/06. * Lipase 2460 today, prior 76. * Trend lipase levels daily. * GI is already following, advised if her LFTs remain elevated, will plan to enlarge sphincterotomy site. Will follow for further recs. * Pt is on clear liquid diet per GI. * Pain and nausea control Hydromorphone/ Zofran. * Will continue IVF at this time. (3) Abnormal liver function tests: Code(s): R79.89 - Other specified abnormal findings of blood chemistry Status: Acute Assessment and Plan: AST/ALT improved, Alk phos 181 (169) Bilirubin has dropped to 1.9 (6.2) * Now 2 days s/p sphincterotomy, trending down as expected. * Monitor LFTs with a.m. labs * Gastroenterology following (4) Hypertension: Code(s): I10 - Essential (primary) hypertension Status: Acute Assessment and Plan: Blood pressure has been elevated above target, likely worsened due to pain and missed antihypertensives. Seems to be slowly improving. Last BP 146/81 * Resume home p.o. hydralazine 25 mg t.i.d. * Will need to transition to IV hydralazine if patient is not able to keep down medications * Monitor blood pressure trends closely Subjective Date/time seen: 01/08/22 08:48 Interval history: Date of service: 01/07/2022 Chrissy Kilgore is a 51-year-old female with a history of hypertension, hyperlipidemia, migraines, depression, anxiety who is seen in follow-up for right upper quadrant pain. 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 She continues to feel poorly today. She has persistent pain today, mostly epigastric and RUQ in nature. She has significant nausea, and some vomiting. She is not tolerating PO intake at all. Denies lower abdominal cramp ing or bloating. No bowel movements. Reports regular urination. Denies dizziness, lightheadedness, weakness, shortness breath, cough, chest pain. Review of Systems Review of Systems: All systems reviewed & are unremarkable except as noted in HPI and below Exam Narrative: General: Well-nourished, well-appearing 51-year-old female, semi recumbent in bed Neuro: awake, alert and oriented x4, speech clear, no focal neuro deficits noted HEENMT: normocephalic, atraumatic, EOMI, sclerae anicteric Respiratory: clear to auscultation bilaterally, nonlabored breathing Cardio: regular rate, regular rhythm with S1-S2 Abdomen: nondistended, normoactive bowel sounds, soft, tender to palpation in epigastric/ RUQ Extremities: no edema, erythema, or tenderness
--- NOTE | 2022-01-08 08:48 | PM.IMPN ---
Progress Note: A&P Assessment and Plan (1) Right upper quadrant pain: Code(s): R10.11 - Right upper quadrant pain Status: Acute Assessment and Plan: Patient presented with right upper quadrant pain. 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 Suspect she was passing small stones. Underwent sphincterotomy which will hopefully improve symptoms. GI is already following, advised if her LFTs remain elevated, will plan to enlarge sphincterotomy site. Continue with supportive care. Analgesics and antiemetics available as needed Patient still endorsing pain, nausea, and vomiting. Difficulty tolerating diet. Continue IVF at slight increase rate. (2) Elevated lipase: Code(s): R74.8 - Abnormal levels of other serum enzymes Status: Acute Assessment and Plan: S/P ERCP w/ sphincterotomy on 01/06. Lipase 2460 today, prior 76. Trend lipase levels daily. GI is already following, advised if her LFTs remain elevated, will plan to enlarge sphincterotomy site. Will follow for further recs. Pt is on clear liquid diet per GI. Pain and nausea control Hydromorphone/ Zofran. Will continue IVF at this time. (3) Abnormal liver function tests: Code(s): R79.89 - Other specified abnormal findings of blood chemistry Status: Acute Assessment and Plan: AST/ALT improved, Alk phos 181 (169) Bilirubin has dropped to 1.9 (6.2) Now 2 days s/p sphincterotomy, trending down as expected. Monitor LFTs with a.m. labs Gastroenterology following (4) Hypertension: Code(s): I10 - Essential (primary) hypertension Status: Acute Assessment and Plan: Blood pressure has been elevated above target, likely worsened due to pain and missed antihypertensives. Seems to be slowly improving. Last BP 146/81 Resume home p.o. hydralazine 25 mg t.i.d. Will need to transition to IV hydralazine if patient is not able to keep down medications Monitor blood pressure trends closely Subjective Date/time seen: 01/08/22 08:48 Interval history: Date of service: 01/07/2022 Chrissy Kilgore is a 51-year-old female with a history of hypertension, hyperlipidemia, migraines, depression, anxiety who is seen in follow-up for right upper quadrant pain. 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 She continues to feel poorly today. She has persistent pain today, mostly epigastric and RUQ in nature. She has significant nausea, and some vomiting. She is not tolerating PO intake at all. Denies lower abdominal cramping or bloating. No bowel movements. Reports regular urination. Denies dizziness, lightheadedness, weakness, shortness breath, cough, chest pain. Review of Systems Review of Systems: All systems reviewed & are unremarkable except as noted in HPI and below Exam Narrative: General: Well-nourished, well-appearing 51-year-old female, semi recumbent in bed Neuro: awake, alert and oriented x4, speech clear, no focal neuro deficits noted HEENMT: normocephalic, atraumatic, EOMI, sclerae anicteric Respiratory: clear to auscultation bilaterally, nonlabored breathing Cardio: regular rate, regular rhythm with S1-S2 Abdomen: nondistended, normoactive bowel sounds, soft, tender to palpation in epigastric/ RUQ Extremities: no edema, erythema, or tenderness to palpation, DP pulses 2+ bilaterally Skin: no rashes or lesions, warm and dry Psych: appropriate mood and affect, judgment and insight intact Objective Data Vital Signs Vital Signs: Vital Signs - 24 hr 01/07/22 14:00 01/07/22 21:55 01/08/22 06:00 Temperature 97.2 F L 97.8 F 98.3 F Pulse Rate 88 83 79 Respiratory Rate 24 H 18 18 Blood Pressure 169/98 H 164/90 H 148/92 H Pulse Oximetry 99 97 98 Intake/Outpu
[2022-01-08] MEDS: PANTOPRAZOLE 40 MG TABLET PO (09:10)
[2022-01-08] MEDS: hydrALAZINE HCL 25 MG TABLET PO ×3 (09:10→17:05)
[2022-01-08 13:50] VITALS: BP 142/88; PULSE 117; RESP 18; TEMP 36.6; O2SAT 98
[2022-01-08] MEDS: SODIUM CHLORIDE 0.9% IV 1,000 ML 100 ML IV CONT (16:22)
[2022-01-08] MEDS: LIPASE/AMYLASE/PROTEASE 12,000 UNITS CAP 2 CAP PO (17:05)
[2022-01-08 20:00] VITALS: PULSE 117; RESP 18; O2SAT 98
[2022-01-08 22:00] VITALS: BP 158/89; PULSE 98; RESP 16; TEMP 36.7; O2SAT 98
[2022-01-08] MEDS: ACETAMINOPHEN 325 MG TABLET 650 MG PO (22:28)
[2022-01-09] MEDS: SODIUM CHLORIDE 0.9% IV 1,000 ML 100 ML IV CONT (02:28)
[2022-01-09] MEDS: HYDROcodone/acetaminophen (*CRX) 5-325 MG TABLET 1 TAB PO ×2 (04:00→07:57)
[2022-01-09] MEDS: ONDANSETRON INJ 4 MG/2 ML VIAL IV PUSH ×3 (04:04→12:05)
[2022-01-09 05:35] VITALS: BP 164/95; PULSE 75; RESP 16; TEMP 36.9; O2SAT 99
[2022-01-09 06:20] LABS: Basophils Percent Auto 0.3 % (0.2-1.2); Eosinophils Absolute Auto 0.5 K/mm3 (0-0.3); Eosinophils Percent Auto 6.8 % (0-4.4); Hematocrit 35.9 % (37.0-47.0); Hemoglobin 11.8 g/dL (12.0-15.0); Immature Granulocyte Absolute 0.02 K/mm3 (0.00-0.031); Immature Granulocyte Percent A 0.3 % (0-0.5); Lymphocytes Absolute Auto 0.98 K/mm3 (0.9-3.2); Lymphocytes Percent Auto 13.6 % (18.3-44.2); Mean Corpuscular HGB Conc 32.9 g/dl (32-36); Mean Corpuscular Hemoglobin 29.8 pg (26-34); Mean Corpuscular Volume 90.7 fl (80-100); Mean Platelet Volume 9.7 fl (7.4-10.4); Monocytes Absolute Auto 0.6 K/mm3 (0.1-0.6); Monocytes Percent Auto 7.6 % (2.6-8.5); Neutrophils Absolute Auto 5.2 K/mm3 (1.3-6.7); Neutrophils Percent Auto 71.4 % (45.5-73.1); Platelet Count Result 274 k/mm3 (150-375); Red Blood Count 3.96 M/mm3 (4.2-5.4); Red Cell Distribution Width 12.2 % (11.5-14.5); White Blood Count 7.2 K/mm3 (4.5-10.0)
[2022-01-09 06:35] LABS: Alanine Aminotransferase 66 U/L (6-35); Albumin Level 3.6 g/dL (3.5-5.1); Alkaline Phosphatase 154 U/L (38-126); Anion Gap 5 mmol/L (8-16); Aspartate Amino Transferase 42 U/L (14-36); Bilirubin,Total 0.7 mg/dL (0.2-1.3); Blood Urea Nitrogen 4 mg/dL (7-17); Calcium 8.5 mg/dL (8.4-10.2); Carbon Dioxide 24 mmol/L (22-30); Chloride 108 mmol/L (98-107); Estimated CRCL calculation 146 ml/min; Estimated Glomerular Filt Rate > 60; Glucose 110 mg/dL (65-110); Lipase 249 U/L (23-300); Potassium 3.1 mmol/L (3.4-5.0); Sodium 137 mmol/L (137-145)
--- NOTE | 2022-01-09 07:34 | WPDGIPROGNO ---
Progress Note: A&P Assessment and Plan (1) Right upper quadrant pain: Code(s): R10.11 - Right upper quadrant pain Status: Acute Assessment and Plan: this suggest biliary tract disease. Given her bile duct dilatation seen on recent CT scan, I suspect she has choledocholithiasis. I told that we will schedule her for an MRCP. I also explained to her that she may need ERCP. MRCP does not always pickers material handlers biliary sludge but would likely show stones. Would also exclude other pathology that could cause biliary obstruction such as tumor of the ampulla or pancreas. I explained ERCP, these have been endoscoped to enter her bile duct to perform a sphincterotomy and hopefully remove sludge. I explained that stents are sometimes used to keep of the bile duct open if there is scar tissue. Her pain she describes as a 'tightness' as if she would be extremely bloated even though visually she is not distended. 01/07 pain is somewhat improved but became worse after her ERCP yesterday, not surprisingly. She has been taking hydromorphone about every 4 hours. 01/08 today's blood work not yet available. I told the patient that if her LFTs remain elevated, we will take her back to endoscopy to hopefully enlarged the sphincterotomy site. Because there was some bleeding the other day I could not make the cut as big as I would have preferred. 01/09 only mild discomfort today. (2) Abnormal liver function tests: Code(s): R79.89 - Other specified abnormal findings of blood chemistry Status: Acute Assessment and Plan: Daughter showed me previous liver enzyme elevations that she had recorded on her phone. The fact that her transaminases and alkaline phosphatase increase and return normal repeatedly suggest passage of sludge or stones. A chronic liver disease would be more likely that show persistent elevations of liver enzymes. 01/07 Today's LFTs are pending, but probably will be much lower, possibly more elevated after the procedure yesterday 01/08 much improved today. Bilirubin is 1.9. Transaminases are lower.. 01/09 she will follow-up with me in the office in 4 weeks. I will recheck LFTs which should have normalized completely (3) Chronic diarrhea: Code(s): K52.9 - Noninfective gastroenteritis and colitis, unspecified Status: Acute Assessment and Plan: It sounds like this is probably bile salt diarrhea. I explained to the patient that we will eventually put her on cholestyramine powder to help improve stool consistency 01/09 I will start her on cholestyramine powder at bedtime. (4) Elevated lipase: Code(s): R74.8 - Abnormal levels of other serum enzymes Status: Acute Assessment and Plan: Typically lipase is elevated after ERCP. I suspect however that she does have some pancreatitis given her persistent nausea and pain. We can try advancing her diet. I will likely send her home on pancreatic enzyme supplement for a couple of weeks. 01/09 she does not believe that her insurance will cover Creon. I told her that all she really needs to do is stay on a low-fat diet for the next couple of weeks Subjective Date/time seen: 01/08 she states she had a better night. Yesterday she felt rough most of the day. She feels that the Dilaudid was making her feel sick and is doing better with a smaller dose. She is still quite nauseated. Pain is in the upper abdomen, particularly right upper quadrant. We discussed the fact her LFTs and bilirubin increased yesterday. My concern is that either sludge or something has come down into her distal duct above the sphincterotomy site, or, more likely the sphincterotomy needs to be enlarged. It was necessary to discontinue after a smaller than usual cut the other day because there was some bleeding. 12:01 Her bilirubin has come back down, 1.9 today. Transaminases also trending down. I think therefore we can try to feed her. Lipase is elevated as I galan
[2022-01-09] MEDS: LIPASE/AMYLASE/PROTEASE 12,000 UNITS CAP 2 CAP PO ×2 (07:53→12:01)
[2022-01-09 08:24] VITALS: O2SAT 98
[2022-01-09] MEDS: hydrALAZINE HCL 25 MG TABLET PO (09:30)
[2022-01-09] MEDS: PANTOPRAZOLE 40 MG TABLET PO (09:30)
--- NOTE | 2022-01-09 13:48 | PM.DS ---
DS: Admitting Diagnosis Discharge Date 01/09/2022 Admitting Diagnosis Abdominal pain DS: Discharge Diagnosis Discharge Diagnosis (1) Right upper quadrant pain: Code(s): R10.11 - Right upper quadrant pain Status: Acute Assessment and Plan: Patient presented with right upper quadrant pain. 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 Suspect she has been passing small stones. Underwent sphincterotomy which will hopefully improve symptoms. GI is already following, advised if her LFTs remain elevated, they will plan to enlarge sphincterotomy site. Pt to follow with GI DR Arce in 1-2 weeks time. pt to continue Creon, cholestyramine, low fat diet and Walters prn severe abdominal pain (2) Elevated lipase: Code(s): R74.8 - Abnormal levels of other serum enzymes Status: Acute Assessment and Plan: S/P ERCP w/ sphincterotomy on 01/06. Ok to discharge as per GI team with follow up. (3) Abnormal liver function tests: Code(s): R79.89 - Other specified abnormal findings of blood chemistry Status: Acute Assessment and Plan: Post op day 3, s/p sphincterotomy, LFTs trending down ast/alt/alk phos 42/66/154 (4) Hypertension: Code(s): I10 - Essential (primary) hypertension Status: Acute Assessment and Plan: Blood pressure has been elevated above target, likely worsened due to pain and missed antihypertensives. Seems to be slowly improving. Bp is still slightly high at 160/90 restart patients Bp medications. DS: Summary Hospital Course Hospital Course: Patient presented with right upper quadrant pain. 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 Suspect she has been passing small stones. Underwent sphincterotomy which will hopefully improve symptoms. GI is already following, advised if her LFTs remain elevated, they will plan to enlarge sphincterotomy site. Pt to follow with GI DR Arce in 1-2 weeks time. pt to continue Creon, cholestyramine, low fat diet and Walters prn severe abdominal pain Time Spent with Patient Time attestation: Total time spent providing and/or coordinating discharge services:45 minutes on day of dischrage Exam Narrative: General: Comfortable lady Respiratory: clear to auscultation bilaterally, nonlabored breathing Cardio: regular rate, regular rhythm with S1-S2 Abdomen: nondistended, normoactive bowel sounds, soft, non tender abdomen Extremities: no edema, erythema, or tenderness Skin: no rashes or lesions, warm and dry Psych: appropriate mood and affect, judgment and insight intact DS: Data Data Completed and Pending Labs on day of discharge: Labs from last 24 hours 01/09/22 01/09/22 05:51 05:51 WBC 7.2 RBC 3.96 L Hgb 11.8 L Hct 35.9 L MCV 90.7 MCH 29.8 MCHC 32.9 RDW 12.2 Plt Count 274 MPV 9.7 Immature Gran % (Auto) 0.3 Neut % (Auto) 71.4 Lymph % (Auto) 13.6 L [place] % (Auto) 7.6 Eos % (Auto) 6.8 H Baso % (Auto) 0.3 Lymph # (Auto) 0.98 [place] # (Auto) 0.6 Eos # (Auto) 0.5 H Baso # (Auto) 0.0 Abs Immat Gran (auto) 0.02 Absolute Neuts (auto) 5.2 Absolute Nucleated RBC 0.0 Nucleated RBC % 0.0 Sodium 137 Potassium 3.1 L Chloride 108 H Carbon Dioxide 24 Anion Gap 5 L BUN 4 L Creatinine 0.40 L Estim Creat Clear Calc 146 Estimated GFR > 60 Glucose 110 Calcium 8.5 Total Bilirubin 0.7 AST 42 H ALT 66 H Alkaline Phosphatase 154 H Total Protein 6.0 L Albumin 3.6 Lipase 249 Discharge Plan Discharge Attending physician
[2022-01-09 14:00] VITALS: BP 143/86; PULSE 79; RESP 16; TEMP 36.4; O2SAT 99
== END 2022-01-09 15:01 | disposition home or self-care (01) ==
LOC: ANHED 15:16 → ANH3MEDSUR 16:40
PROVIDERS: Emergency Medicine; Internal Medicine Gastroenterology; Nurse Practitioner Adult Health; Physician Assistant; Student in an Organized Health Care Education/Training Program; Admitting Provider Internal Medicine; Emergency Provider Nurse Practitioner Family; PCP Family Medicine; Visit Provider Family Medicine
PROC: 0FC98ZZ Extirpation of Matter from Common Bile Duct, Via Natural or Artificial Opening Endoscopic (ICD-10-PCS; CPT 43260; principal; 2022-01-06 14:15)
DX: K83.8 Other specified diseases of biliary tract (principal); F32.9 Major depressive disorder, single episode, unspecified; J45.909 Unspecified asthma, uncomplicated; I10 Essential (primary) hypertension; K21.9 Gastro-esophageal reflux disease without esophagitis; F41.9 Anxiety disorder, unspecified; E78.5 Hyperlipidemia, unspecified; R79.89 Other specified abnormal findings of blood chemistry; K52.9 Noninfective gastroenteritis and colitis, unspecified; R74.8 Abnormal levels of other serum enzymes; Z90.49 Acquired absence of other specified parts of digestive tract; Z79.899 Other long term (current) drug therapy
CPT/HCPCS: 36415; 74183; 74329; 76376; 80053; 81001; 83690; 83735; 85025; 85027; 96361; 96374; 96375; 96376; 99285; A9270; A9577; G0378; G0379; J0330; J0780; J1170; J1200; J2405; J2704; J7030; J7120

== ENCOUNTER 2022-02-04 08:45 | Emergency (ER) | payer OTHER, SELFPAY ==
--- NOTE | ~2022-02-04 | US_ITS ---
EXAMINATION: US right upper quadrant DATE: 02/04/2022 09:52 INDICATION: Right upper quadrant abdominal pain. TECHNIQUE: Multiple grayscale and Doppler ultrasound images of the abdomen were obtained. COMPARISON: MRCP 01/06/2022 FINDINGS: The visualized portions of the head and body of the pancreas are normal. There is diffuse h epatic steatosis. There is normal flow in main portal vein. The common duct measures 10 mm, which is normal status post cholecystectomy. IMPRESSION: 1. Diffuse hepatic steatosis. Reviewed, dictated and finalized at location B.
--- NOTE | ~2022-02-04 | XR_ITS ---
EXAMINATION: XR abdomen/kub 1V DATE: 02/04/2022 09:57 INDICATION: Constipation. Upper abdominal pain. TECHNIQUE: A supine view of the abdomen on 2 radiographs was obtained. COMPARISON: MRCP 01/06/2022 FINDINGS: There are no dilated loops of bowel. There is a moderate volume of stool in the colon. Surg ical clips in the right upper quadrant are likely from cholecystectomy. IMPRESSION: 1. Nonobstructive bowel gas pattern. Reviewed, dictated and finalized at location B.
[2022-02-04 08:51] VITALS: BP 152/103; PULSE 102; RESP 16; TEMP 36.4; O2SAT 99
--- NOTE | 2022-02-04 09:05 | ED.ABDPAIN ---
HPI - Abdominal Pain General Chief Complaint: Abdominal Pain Stated Complaint: POST OP COMPLICATIONS Time Seen by Provider: 02/04/22 08:58 History of Present Illness HPI narrative: 51-year-old female presents to the emergency room today for complaints of right upper quadrant and epigastric abdominal pain. She was admitted very recently for the same problem. She has a history of cholecystectomy. She had a common bile duct blockage and underwent MRCP. She reports that they were not able to completely clear the blockage and she is supposed to have a another procedure at some point. She is scheduled to follow-up with her GI doctor, Dr. Valentine, next week. She still had the abdominal pain upon discharge but it did improve after her discharge, with the medications that were prescribed. However the pain started to get worse again yesterday. She reports that she is struggling with constipation. She is not sure when she had her last bowel movement. She is only had a couple of bowel movements since she was discharged from the hospital. They were hard stool. She reports feeling bloated. She gets occasional nausea but no vomiting. No fever or chills. No chest pain or shortness of breath. Related Data Home Medications Medication Instructions Recorded Confirmed tizanidine 4 mg capsule 4 mg PO Q8H PRN Pain 06/18/21 01/05/22 cetirizine 10 mg tablet (Zyrtec) 10 mg PO DAILY 07/14/21 01/05/22 montelukast 10 mg tablet 10 mg PO DAILY 07/14/21 01/05/22 (Singulair) pantoprazole 40 mg tablet,delayed 40 mg PO QAM 07/14/21 01/05/22 release rosuvastatin 5 mg tablet 5 mg PO DAILY 07/14/21 01/05/22 albuterol sulfate 2.5 mg/3 mL 2.5 mg inhalation PRN PRN 10/03/21 01/05/22 (0.083 %) solution for nebulization Shortness Of Breath Or Wheezing raloxifene 60 mg PO DAILY 10/03/21 01/05/22 tramadol 50 mg tablet 50 mg PO PRN PRN Back Pain 10/03/21 01/05/22 Allergies Allergy/AdvReac Type Severity Reaction Status Date / Time adhesive tape Allergy Blister Verified 02/04/22 08:54 amlodipine Allergy Hives Verified 02/04/22 08:54 Penicillins Allergy Hives Verified 02/04/22 08:54 tamoxifen Allergy Hives Verified 02/04/22 08:54 Review of Systems Review of Systems: CONSTITUTIONAL: Denies fever, chills, or sweats. EYES: Denies visual changes, redness, or discharge. ENT: Denies rhinorrhea, congestion, sore throat, or otalgia. CARDIOVASCULAR: Denies chest pain, palpitations, or edema. RESPIRATORY: Denies cough or dyspnea. GASTROINTESTINAL: as per HPI GENITOURINARY: Denies dysuria or hematuria. SKIN: Denies rash or itching. MUSCULOSKELETAL: Denies back pain, joint pain, or myalgia. NEUROLOGIC: Denies headache, numbness, dizziness, or weakness. PSYCHIATRIC: Denies anxiety or depression. [facility] Past Medical History Medical History Anxiety Asthma Depression GERD (gastroesophageal reflux disease) Hx of migraines Hyperlipidemia Hypertension (normal spontaneous vaginal delivery) x2 Pseudoangiomatous stromal hyperplasia of breast 2012 Surgical History Surgical History H/O breast biopsy H/O oophorectomy History of bowel resection small intestine Hx of appendectomy S/P laparoscopic cholecystectomy Social History Social History Smoking status: Never smoker Alcohol intake: never Substance use: never Substance use type: does not use Gender identity (if verbalized by the patient): Female Spiritual care concerns: No Exam Narrative: GENERAL: Well-appearing, well-nourished, and in no acute distress. HEAD: Normocephalic, atraumatic. EYES: PERRLA and EOMI. NECK: Supple. No adenopathy or masses. No carotid bruits or JVD CHEST: Clear to auscultation. No respiratory distress. No wheezes rales or rhonchi HEART: Regular rate and rhythm. No murmur heard. Normal
[2022-02-04 09:21] LABS: Basophils Percent Auto 0.4 % (0.2-1.2); Eosinophils Absolute Auto 0.1 K/mm3 (0-0.3); Eosinophils Percent Auto 1.1 % (0-4.4); Hematocrit 39.1 % (37.0-47.0); Hemoglobin 12.8 g/dL (12.0-15.0); Immature Granulocyte Absolute 0.01 K/mm3 (0.00-0.031); Immature Granulocyte Percent A 0.2 % (0-0.5); Lymphocytes Absolute Auto 1.09 K/mm3 (0.9-3.2); Lymphocytes Percent Auto 19.9 % (18.3-44.2); Mean Corpuscular HGB Conc 32.7 g/dl (32-36); Mean Corpuscular Hemoglobin 30.3 pg (26-34); Mean Corpuscular Volume 92.4 fl (80-100); Mean Platelet Volume 9.5 fl (7.4-10.4); Monocytes Absolute Auto 0.4 K/mm3 (0.1-0.6); Monocytes Percent Auto 7.3 % (2.6-8.5); Neutrophils Absolute Auto 3.9 K/mm3 (1.3-6.7); Neutrophils Percent Auto 71.1 % (45.5-73.1); Platelet Count Result 279 k/mm3 (150-375); Red Blood Count 4.23 M/mm3 (4.2-5.4); Red Cell Distribution Width 12.4 % (11.5-14.5); White Blood Count 5.5 K/mm3 (4.5-10.0)
[2022-02-04 09:30] LABS: Lactic Acid Reflex 1.8 mmol/L (0.7-2.0)
[2022-02-04 09:31] LABS: Alanine Aminotransferase 42 U/L (6-35); Albumin Level 4.4 g/dL (3.5-5.1); Alkaline Phosphatase 182 U/L (38-126); Amylase 45 U/L (30-110); Anion Gap 7 mmol/L (8-16); Aspartate Amino Transferase 59 U/L (14-36); Bilirubin,Total 0.5 mg/dL (0.2-1.3); Blood Urea Nitrogen 7 mg/dL (7-17); Calcium 9.3 mg/dL (8.4-10.2); Carbon Dioxide 24 mmol/L (22-30); Chloride 111 mmol/L (98-107); Estimated CRCL calculation 89 ml/min; Estimated Glomerular Filt Rate > 60; Glucose 112 mg/dL (65-110); Lipase 121 U/L (23-300); Potassium 3.6 mmol/L (3.4-5.0); Sodium 142 mmol/L (137-145)
[2022-02-04 09:44] LABS: Prothrombin Time 12.6 Seconds (11.1-14.7)
[2022-02-04] MEDS: ONDANSETRON INJ 4 MG/2 ML VIAL IV PUSH (09:53)
[2022-02-04] MEDS: HYDROmorphone HCL INJ (*CRX) 1 MG/ML SYR 0.5 MG IV PUSH (09:53)
--- NOTE | 2022-02-04 09:53 | PC.NURSE ---
iv iniated in ultrasound due to pt being taken for studies prior to pain meds being administered. meds given per order.
[2022-02-04] MEDS: SODIUM CHLORIDE 0.9% IV 1,000 ML 999 ML IV CONT (10:03)
[2022-02-04 11:30] VITALS: BP 143/88; PULSE 72; RESP 16; O2SAT 97
== END 2022-02-04 11:30 | disposition home or self-care (01) ==
PROVIDERS: Emergency Provider Nurse Practitioner Family; PCP Family Medicine
DX: K59.00 Constipation, unspecified (principal); R10.11 Right upper quadrant pain; K76.0 Fatty (change of) liver, not elsewhere classified
CPT/HCPCS: 36415; 74018; 76705; 80053; 82150; 83605; 83690; 85025; 85610; 96361; 96374; 96375; 99284; J1170; J2405; J7030

== ENCOUNTER 2022-02-26 15:07 | Outpatient (CLI) | payer OTHER, SELFPAY ==
--- NOTE | ~2022-02-26 | CT_ITS ---
EXAMINATION: CT abdomen pelvis wo con DATE: 02/26/2022 15:24 INDICATION: Abdominal pain, history of biliary surgery TECHNIQUE: Computed tomography (CT) of the abdomen and pelvis was performed without intravenous contr ast. The dose-length product (DLP) was 700.84 mGy-cm. Automated exposure control and iterative recons truction technique were employed. COMPARISON: None FINDINGS: Minimal dependent atelectasis is present in the lung bases. The heart size is normal. The g allbladder is surgically absent. There is moderate enlargement of the common bile duct and central in trahepatic ducts which is likely due to post cholecystectomy state. The liver, spleen, pancreas, and adrenal glands are normal. The kidneys are unremarkable. No stones are identified in the kidneys, ure ters, or bladder. There is no hydronephrosis or hydroureter. No pathologically enlarged abdominal or pelvic lymph nodes are identified. There is no free intraperitoneal gas or evidence of bowel obstruct ion. A moderate volume of colonic stool is present. IMPRESSION: 1. No CT correlate for the patient's symptoms. Reviewed, dictated and finalized at location B.
== END 2022-02-26 15:08 | disposition home or self-care (01) ==
PROVIDERS: PCP Family Medicine; Visit Provider Internal Medicine Gastroenterology
DX: K85.90 Acute pancreatitis without necrosis or infection, unspecified (principal); R10.11 Right upper quadrant pain
CPT/HCPCS: 74176

== ENCOUNTER 2022-03-02 02:31 | Inpatient (IN) | payer OTHER, SELFPAY ==
[2022-03-02] VITALS (39 sets, daily range): BP systolic 129–162; BP diastolic 84–122; PULSE 29–144; RESP 12–34; TEMP 36.2–36.8; O2SAT 91–100
--- NOTE | 2022-03-02 | ECHO_ITS ---
Patient Info Name: Chrissy Kilgore Age: 51 years : 1970 Gender: Female Ht: 66 in Wt: 178 lbs BSA: 1.96 m2 HR: 106 bpm BP: 139 / 84 mmHg Technical Quality: Good Exam Date: 03/02/2022 9:07 AM Exam Location: [facility] [place] Patient Status: Outpatient Admit Date: 03/02/2022 Staff Ordering Physician: Leon Mora DO Employment Counselor: Cleo Medina RDCS Attending Provider: Carley Bernardo DO Referring Physician: Morgan HARE; Exam Type: CA echo dop color flow w con Study Info Indications - ELEVATED TROPONIN Complete two-dimensional, color flow and Doppler transthoracic echocardiogram is performed with contrast to opacify the left ventricle and to improve the deliniation of the left ventricle endocardial borders. Contrast/Agitated Saline Contrast/Ag. Saline: Definity Amount: 3.00 ml Administered By: Cleo Medina RDCS Existing IV Access: Yes IV Access Condition: patent with no signs of infiltration Summary 1. Left ventricular chamber dimension is severely enlarged. 2. Definity contrast administered improved wall motion interpretation. 3. Global LV hypokinesis in all segments except basal segments suggesting Takotsubo cardiomyopathy. 4. Left ventricular systolic function is severely reduced, estimated at 20-25%. 5. The left ventricular diastolic function is grade II diastolic dysfunction. 6. E/e' 15 is elevated. 7. Left atrial chamber dimension is mildly enlarged. 8. There is trace mitral valve regurgitation. 9. Mild pulmonary hypertension, estimated pulmonary arterial systolic pressure is 49 mmHg. Left Ventricle E/e' 15 is elevated. Definity contrast administered improved wall motion interpretation. Global LV hypokinesis in all segments except basal segments suggesting Takotsubo cardiomyopathy. Left ventricular chamber dimension is severely enlarged. Left ventricular systolic function is severely reduced, estimated at 20-25%. The left ventricular diastolic function is grade II diastolic dysfunction. Right Ventricle Right ventricular systolic function is normal and with normal TAPSE 3.0 cm. Right ventricular chamber dimension is normal. Left Atria Left atrial chamber dimension is mildly enlarged. Right Atria Right atrial chamber dimension is normal. Aortic Valve The aortic valve is trileaflet. There is no aortic valve stenosis. There is no aortic valve regurgitation. Pulmonic Valve There is no pulmonic regurgitation. Mitral Valve There is no mitral valve stenosis. There is trace mitral valve regurgitation. Tricuspid Valve There is no tricuspid valve regurgitation. Mild pulmonary hypertension, estimated pulmonary arterial systolic pressure is 49 mmHg. Pericardium/Pleural There is no pericardial effusion. Inferior Vena Cava Normal inferior vena cava with >50% collapse upon inspiration consistent with normal right atrial pressure, 5 mmHg. Aorta The aortic root size at the sinus of Valsalva is normal. Left Ventricular Outflow Tract Name Value Normal LVOT 2D LVOT Diameter 1.94 cm LVOT Doppler LVOT Peak Gradient
--- NOTE | ~2022-03-02 | XR_ITS ---
EXAMINATION: XR chest 2V DATE: 03/04/2022 08:20 INDICATION: Congestive heart failure. TECHNIQUE: Frontal and lateral views of the chest were obtained. COMPARISON: Chest single view 03/02/2022, CT abdomen and pelvis 02/26/2022 FINDINGS: There are airspace opacities in the lower lung zones. There are small pleural effusions. No pneumothorax. Cardiomegaly is noted. Surgical clips in the right upper quadrant are likely from chol ecystectomy. IMPRESSION: 1. Worsened small pleural effusions. 2. Worsened airspace opacities at the lung bases, consistent with atelectasis versus pneumonia. 3. Cardiomegaly. Reviewed, dictated and finalized at location A. IMPRESSION: 1. Worsened small pleural effusions. 2. Worsened airspace opacities at the lung bases, consistent with atelectasis v ersus pneumonia. 3. Cardiomegaly.
--- NOTE | ~2022-03-02 | XR_ITS ---
EXAMINATION: XR chest 1V portable DATE: 03/02/2022 03:24 INDICATION: Shortness of breath. Asthma. TECHNIQUE: A single frontal view of the chest was obtained. COMPARISON: Chest 2 views 12/08/2021, CT abdomen and pelvis 02/26/2022 FINDINGS: There is mild atelectasis in left lower lung zone. No pleural effusion or pneumothorax. The heart size is normal. IMPRESSION: 1. Mild atelectasis in left lower lung zone. Reviewed, dictated and finalized at location A.
--- NOTE | ~2022-03-02 | XR_ITS ---
XR chest 1V portable DATE: 03/02/2022 11:02 INDICATION: Mid chest pain. Shortness of breath. TECHNIQUE: Portable upright AP chest on 03/02/2020 1058 hours COMPARISON: 03/02/2020 chest at 0305 hours FINDINGS: Since earlier today there is pulmonary vascular congestion and redistribution and developme nt of bilateral Celeste B-lines, consistent with congestive changes, pulmonary interstitial edema. No pleural effusion or pneumothorax. Heart size is normal. No pulmonary consolidation. Status post cholecystectomy IMPRESSION: Pulmonary vascular congestion and pulmonary interstitial edema since earlier today Reviewed, dictated and finalized at location A. IMPRESSION: Pulmonary vascular congestion and pulmonary interstitial edema sinc e earlier today
--- NOTE | 2022-03-02 02:33 | ECG_ITS ---
Measurements Intervals [place] Rate: 66 P: 45 [place]: 138 QRS: 9 QRSD: 108 T: 8 QT: 400 QTc: 420 Interpretive Statements SINUS RHYTHM VENTRICULAR PREMATURE COMPLEX DELAYED PRECORDIAL R/S TRANSITION MINIMAL Q WAVES- HIGH LATERAL LEADS BASELINE ARTIFACT- II, III, AVF, V4-V5 BORDERLINE ECG Electronically Signed On 03-02-2022 6:00:03 CDT by Leon Mora D.O.
--- NOTE | 2022-03-02 02:44 | ED.SOB ---
HPI - SOB/Dyspnea General Chief Complaint: Shortness of Breath/Dyspnea Stated Complaint: SOB Time Seen by Provider: 03/02/22 02:43 Source: patient History of Present Illness HPI Narrative: Patient presents with concern for asthma attack. Patient ports she has had increased shortness of breath over the past few days tonight it was more severe so she came to the ER for evaluation. She is having her nebulized therapies without relief of her symptoms. She also reports that 20 mg of prednisone this evening again no significant improvement her symptoms so she came to ER. She reports a cough but has not noted any fevers. Denies any chest pain or abdominal pain. For her shoulder cough and have some emesis with it. She has not any known sick contacts. Does report she gets Exacerbation a few times a year she is previously required admission and manage her symptoms she denies any prior intubations for her symptoms. Related Data Home Medications Medication Instructions Recorded Confirmed tizanidine 4 mg capsule 4 mg PO Q8H PRN Pain 06/18/21 02/16/22 cetirizine 10 mg tablet (Zyrtec) 10 mg PO DAILY 07/14/21 02/16/22 montelukast 10 mg tablet 10 mg PO DAILY 07/14/21 02/16/22 (Singulair) pantoprazole 40 mg tablet,delayed 40 mg PO QAM 07/14/21 02/16/22 release rosuvastatin 5 mg tablet 5 mg PO DAILY 07/14/21 02/16/22 albuterol sulfate 2.5 mg/3 mL 2.5 mg inhalation PRN PRN 10/03/21 02/16/22 (0.083 %) solution for nebulization Shortness Of Breath Or Wheezing raloxifene 60 mg PO DAILY 10/03/21 02/16/22 tramadol 50 mg tablet 50 mg PO PRN PRN Back Pain 10/03/21 02/16/22 Allergies Allergy/AdvReac Type Severity Reaction Status Date / Time adhesive tape Allergy Blister Verified 03/02/22 02:41 amlodipine Allergy Hives Verified 03/02/22 02:41 Penicillins Allergy Hives Verified 03/02/22 02:41 Sulfa (Sulfonamide Allergy Hives Verified 03/02/22 02:41 Antibiotics) tamoxifen Allergy Hives Verified 03/02/22 02:41 Review of Systems Review of Systems: CONSTITUTIONAL: Denies fever, chills, or sweats. EYES: Denies visual changes, redness, or discharge. ENT: Denies rhinorrhea, congestion, sore throat, or otalgia. CARDIOVASCULAR: Denies chest pain, palpitations, or edema. RESPIRATORY: Reports shortness of breath and cough GASTROINTESTINAL: Denies abdominal pain, nausea, vomiting, or diarrhea. GENITOURINARY: Denies dysuria or hematuria. SKIN: Denies rash or itching. MUSCULOSKELETAL: Denies back pain, joint pain, or myalgia. NEUROLOGIC: Denies headache, numbness, dizziness, or weakness. PSYCHIATRIC: Denies anxiety or depression. All systems reviewed & are unremarkable except as noted in HPI and below PMFSH Past Medical History Medical History Anxiety Asthma Depression GERD (gastroesophageal reflux disease) Hx of migraines Hyperlipidemia Hypertension (normal spontaneous vaginal delivery) x2 Pseudoangiomatous stromal hyperplasia of breast 2012 Surgical History Surgical History H/O breast biopsy H/O oophorectomy History of bowel resection small intestine Hx of appendectomy S/P laparoscopic cholecystectomy Social History Social History Smoking status: Never smoker Alcohol intake: never Substance use: never Substance use type: does not use Gender identity (if verbalized by the patient): Female Spiritual care concerns: No Exam Narrative: GENERAL: Well-appearing, well-nourished HEAD: Normocephalic, atraumatic. EYES: PERRLA and EOMI. ENT: Nares clear, no rhinorrhea or epistaxis. Mucous membranes moist. NECK: Supple. No masses. No JVD CHEST: Moderate respiratory distress with increased work of breathing diffuse inspiratory and expiratory wheezing noted HEART: Regular tachycardia. No murmur heard. Normal peripheral pulses. ABDOMEN: Soft, nontend
[2022-03-02] MEDS: ALBUTEROL SULFATE NEB 2.5 MG/0.5 ML INH 15 MG (02:46)
[2022-03-02] MEDS: IPRATROPIUM BR 0.02% INH SOLN 0.5 MG/2.5 ML VIAL 1.5 MG INHALATION (02:46)
[2022-03-02 02:48] LABS: Basophils Percent Auto 0.2 % (0.2-1.2); Hematocrit 41.9 % (37.0-47.0); Hemoglobin 13.5 g/dL (12.0-15.0); Immature Granulocyte Absolute 0.07 K/mm3 (0.00-0.031); Immature Granulocyte Percent A 0.4 % (0-0.5); Lymphocytes Absolute Auto 0.99 K/mm3 (0.9-3.2); Mean Corpuscular HGB Conc 32.2 g/dl (32-36); Mean Corpuscular Hemoglobin 29.1 pg (26-34); Mean Corpuscular Volume 90.3 fl (80-100); Mean Platelet Volume 9.8 fl (7.4-10.4); Monocytes Absolute Auto 0.3 K/mm3 (0.1-0.6); Monocytes Percent Auto 1.6 % (2.6-8.5); Neutrophils Absolute Auto 15.1 K/mm3 (1.3-6.7); Neutrophils Percent Auto 91.8 % (45.5-73.1); Platelet Count Result 550 k/mm3 (150-375); Red Blood Count 4.64 M/mm3 (4.2-5.4); Red Cell Distribution Width 12.4 % (11.5-14.5); White Blood Count 16.5 K/mm3 (4.5-10.0)
[2022-03-02] MEDS: ONDANSETRON INJ 4 MG/2 ML VIAL IV PUSH ×3 (02:50→21:10)
[2022-03-02] MEDS: methylPREDNISolone SOD SUCC 125 MG VIAL IV PUSH (02:53)
[2022-03-02 03:07] LABS: Alanine Aminotransferase 45 U/L (6-35); Albumin Level 5.1 g/dL (3.5-5.1); Alkaline Phosphatase 154 U/L (38-126); Anion Gap 18 mmol/L (8-16); Aspartate Amino Transferase 47 U/L (14-36); Bilirubin,Total 0.4 mg/dL (0.2-1.3); Blood Urea Nitrogen 7 mg/dL (7-17); Calcium 9.8 mg/dL (8.4-10.2); Carbon Dioxide 17 mmol/L (22-30); Chloride 113 mmol/L (98-107); Estimated CRCL calculation 88 ml/min; Estimated Glomerular Filt Rate > 60; Glucose 125 mg/dL (65-110); Potassium 3.8 mmol/L (3.4-5.0); Sodium 148 mmol/L (137-145)
--- NOTE | 2022-03-02 03:07 | ECG_ITS ---
Measurements Intervals [place] Rate: 76 P: 42 MS: 131 QRS: 5 QRSD: 102 T: 12 QT: 385 QTc: 433 Interpretive Statements SINUS RHYTHM VENTRICULAR PREMATURE COMPLEX BORDERLINE R WAVE PROGRESSION, ANTERIOR LEADS MINIMAL Q WAVES- HIGH LATERAL LEADS BASELINE ARTIFACT- I, II, III, AVR, AVL, AVF, V1-V6 BORDERLINE ECG Electronically Signed On 03-02-2022 7:59:00 CDT by Leon Mora D.O.
[2022-03-02] MEDS: MAGNESIUM SULF 2 GM/WATER 50ML 2 GM/50 ML BAG IVPB (03:14)
[2022-03-02] MEDS: KETOROLAC 15 MG/ML VIAL (*BKC) IV PUSH (03:21)
[2022-03-02] MEDS: PROCHLORPERAZINE EDISYLATE 10 MG/2 ML VIAL IV PUSH (04:37)
--- NOTE | 2022-03-02 04:45 | PC.NURSE ---
Pt very restless on stretcher, reporting worsening CP. EDP notified, new orders placed.
[2022-03-02 04:46] LABS: SARS-CoV-2 RNA PCR Negative
[2022-03-02] MEDS: SODIUM CHLORIDE 0.9% IV 1,000 ML 999 ML IV CONT (04:52)
[2022-03-02 05:22] LABS: Troponin I 0.039 ng/mL (0.000-0.034)
--- NOTE | 2022-03-02 07:05 | ECG_ITS ---
Measurements Intervals [place] Rate: 115 P: 73 DE: 136 QRS: -6 QRSD: 104 T: 97 QT: 344 QTc: 477 Interpretive Statements SINUS TACHYCARDIA BORDERLINE R WAVE PROGRESSION, ANTERIOR LEADS MINIMAL Q WAVES- LAT/HIGH LAT LEADS BORDERLINE ST-T WAVE ABNORMALITY- HIGH LATERAL LEADS ABNORMAL ECG Electronically Signed On 03-02-2022 7:58:07 CDT by Leon Mora D.O.
--- NOTE | 2022-03-02 07:07 | ADMGEN ---
This patient, Chrissy Kilgore, was admitted to IMU Room 212-01 at 0700 on 03/02/2022. Patient/family oriented to hospital policies and general routines including ID bracelet, bed and alarms, visiting hours, pain management, procedures, bathroom and other care routines, personal items, smoking policy, room service/diet, and visiting hours. Information on how to activate the Rapid Response Team has been discussed. Patient/Family are encouraged to report perceived risks to care and to ask questions if they do not understand what they are told or what they should do.
--- NOTE | 2022-03-02 07:41 | PM.CNCAR ---
Assessment and Plan Assessment and plan (1) Asthma exacerbation: Qualifiers: Asthma persistence: unspecified Asthma severity: severe Qualified Code(s): J45.901 - Unspecified asthma with (acute) exacerbation Code(s): J45.901 - Unspecified asthma with (acute) exacerbation Status: Acute Assessment and Plan: Management as per hospitalist. (2) Chest pain: Qualifiers: Chest pain type: unspecified Qualified Code(s): R07.9 - Chest pain, unspecified Code(s): R07.9 - Chest pain, unspecified Status: Acute Assessment and Plan: Atypical and appears to be from asthma exacerbation. (3) Elevated troponin: Code(s): R77.8 - Other specified abnormalities of plasma proteins Status: Acute Assessment and Plan: Troponin elevation from .039 to 1.04. Chest pain worse with deep inspiration. Presentation and symptoms not suggestive of ACS, but of asthma exacerbation. Trend troponin to peak. Obtain echo to assess for wall motion abnormalities. Received aspirin. (4) Hypertension: Code(s): I10 - Essential (primary) hypertension Status: Acute Assessment and Plan: Stable. On Hydralazine as she has history of bradycardia. (5) Hyperlipidemia: Code(s): E78.5 - Hyperlipidemia, unspecified Status: Acute Assessment and Plan: On Rosuvastatin. (6) Chills: Code(s): R68.83 - Chills (without fever) Status: Acute Assessment and Plan: Chills with subjective fevers for last 2 days. Assess for infection? History of Present Illness History of Present Illness Consult date/time: 03/02/22 07:42 Consult reason: chest pain Reason For Visit: Asthma exacerbation Narrative: 51 yr old woman who is my regular cardiology patient presented to ER last night for sob. She has a history of hypertension (amlodipine causes hives), dyslipidemia, asthma and uses neb treatments. Reports for last 2 days she had raspiness in her lungs and then last night she had acute sob with coughing and vomiting related to coughing. She reported mid chest tightness that then moved to her left under her breast sharp pains worse with deep inspiration. Her drove her to ER. There she had neb treatment, and breathing improved. Her chest pain is different than her usual with asthma exacerbations. Currently she is visibly shaking. Admits to subjective fever and chills in last 2 days. Normally she can walk 1-2 blocks and limited by VERNON. Denies orthopnea, PND, edema, dizziness, palpitations. Cardiovascular Procedures Echo: 10/19/21 Echo: EF 60-65%, mild LVH, grade I diastolic dysfunction (E/e' 10). Electrophysiology: 03/02/22 EKG: Sinus rhythm, PVC, delayed precordial R/S transition. 10/03/21 EKG: Sinus bradycardia at 35 bpm. 10/05/21 27 days event monitor: Sinus rhythm, HR range 38-160 bpm; average HR 69 bpm; Fast HR at 160 bpm occurred on 10/24/21 at 09:37. Slow HR at 38 bpm occurred on 10/09/21 at 23:47; <1% PAC's and 1% PVC's. Stress testin10/19/21 Stress test: Negative for ischemia; exercised for 5 minutes. Review of Systems Review of Systems: All systems reviewed & are unremarkable except as noted in HPI and below Constitutional: Constitutional: Reports as per HPI, Reports chills and Reports fever(s) Cardiovascular: Cardiovascular: Reports as per HPI, Reports chest pain, Denies irregular heart rhythm, Denies leg edema and Denies lightheadedness Respiratory: Respiratory: Reports as per HPI, Reports cough and Reports dyspnea Gastrointestinal: Gastrointestinal: Reports as per HPI and Denies abdominal pain Genitourinary: Genitourinary: Reports as per HPI and Denies dysuria Musculoskeletal: Musculoskeletal: Reports as per HPI Neurologic: Reports as per HPI, Denies dizziness and Denies syncope [facility] Past Medical History Medical History (Updated 03/02/22 @ 08:03 by Leon Mora DO) Anxiety Asthma Depression GERD (gastroesophageal reflux disease)
[2022-03-02] MEDS: HYDROcodone/acetaminophen (*CRX) 5-325 MG TABLET 1 TAB PO (09:31)
[2022-03-02] MEDS: PERFLUTREN LIPID MICROSPHERES 1.5 ML VIAL DILUTED TO 10 ML TOTAL VOLUME IV PUSH (09:35)
[2022-03-02 09:56] LABS: Prothrombin Time 12.8 Seconds (11.1-14.7)
[2022-03-02 09:57] LABS: Partial Thromboplastin Time 28.2 SECONDS (22.3-36.8)
[2022-03-02] MEDS: HEPARIN SODIUM 5,000 UNITS/ML VIAL 4000 UNITS IV PUSH (10:08)
[2022-03-02] MEDS: predniSONE 20 MG TABLET 60 MG PO (10:08)
[2022-03-02] MEDS: HEPARIN SOD/D5W 100 UNITS/ML 25,000 UNITS/250 ML BAG 8 UNITS IV CONT (10:08)
--- NOTE | 2022-03-02 10:08 | PM.IMHP ---
H&P: HPI History of Present Illness Date/Time: 03/02/22 10:08 Chief Complaint: Chest pain Narrative: 81yo female with asthma and HTN here for chest pain. Patient has had asthma for many years. She has never been intubated but has been in ICU. She was on Advair about 10 years ago but stopped because she developed thrush. She normally is on albuterol nebulizer and albuterol inhaler as needed. She only uses these medications a few times a year for ?asthma attacks?. She has approximately 4-5 episodes per year requiring ED visits. She is not normally hospitalized but just treated with steroids and nebulizer treatments and discharged. She has had a recent cardiac evaluation sometime earlier this year which included a stress test which was normal. She is unclear why this evaluation was started but it was noted that she did have episodes of bradycardia with heart rate in the 30s by out patient heart monitor. Patient was feeling well until about 2 days prior to admission she developed wheezing. She used her inhaler to 3 times as well as a nebulizer treatment with some benefit. Last evening her symptoms worsened with nausea and vomiting. The vomiting. To be post-tussive. No fevers but is having chills. No sick contacts. She has no history of coronary disease. She states last evening that she developed chest pain localized to the lower sternal border and radiates under her left breast. It was worse when she laid flat. Pain was palpable and pleuritic. She denies any acid taste in her mouth. She was short of breath with diaphoresis. She normally does not have this with asthma exacerbations. She does lead a sedentary lifestyle. She is a nonsmoker but does have hypertension and hyperlipidemia. She does not recall any family members with early heart disease. Could this reason, she presented to the emergency room for evaluation. In the ED, she was tachycardic in 129 with respiratory rate 30 for blood pressure 130/93. She was 98% on room air. Or she had increased work of breathing and diffuse wheezing noted. EKG showed PVCs, normal sinus rhythm and minimal Q-waves in the high lateral leads. She was treated with nebulizer treatments and Solu-Medrol. Her or pain medications and antiemetics were provided she was admitted to the IMU for further management. Cardiology been consulted. Her echocardiogram was read this morning showing global LV hypokinesis in all segments except basal segment consistent with takotsubo cardiomyopathy. EF was 20-25%, grade 2 diastolic dysfunction and mild pulmonary hypertension. She does have sleep apnea and has CPAP. Review of Systems Review of Systems: Patient has been complaining of diarrhea alternating with constipation or since December after her ERCP with sphincterotomy. No melena hematochezia. Symptoms come and go. Patient also complains of choking on food with food getting hung up in the upper esophagus. She feels like it is ?stuck? and sometimes has to vomit it up. She feels the symptoms are worsening and increase in frequency. Patient does complain of tingling in her hands recently. No weakness. She also has been having lower extremity edema last week but no calf pain. The edema has resolved. All systems reviewed & are unremarkable except as noted in HPI and below PMFSH Past Medical History Medical History Anxiety Asthma Bradycardia Depression GERD (gastroesophageal reflux disease) Hx of migraines Hyperlipidemia Hypertension (normal spontaneous vaginal delivery) x2 LEX (obstructive sleep apnea) Pseudoangiomatous stromal hyperplasia of breast 2012 Surgical History Surgical History H/O breast biopsy H/O oophorectomy History of bowel resection small intestine Hx of appendectomy S/P laparoscopic cholecystectomy Family History Family History (Updated 03/02/22 @ 10:27 by Sean
[2022-03-02] MEDS: ASPIRIN 81 MG CHEWABLE TABLET PO (10:09)
[2022-03-02] MEDS: METOPROLOL TARTRATE 25 MG TABLET PO ×2 (10:10→22:53)
[2022-03-02] MEDS: NITROGLYCERIN OINTMENT 1 INCH DOSE TRANSDERM (10:14)
[2022-03-02 10:58] LABS: Base Excess ABG -3.7 mEq/l (+/-2.0); Fractional Inspired Oxygen 21 %; HCO3 ABG 19.2 mEq/l (22.0-26.0); Oxygen Content ABG 16.6 %vol (16.0-22.0); Oxygen Saturation ABG 92.3 % (95.0-100.0); Oxyhemoglobin 91.3 % THb (90.0-100.0); PCO2 ABG 28.9 mmHg (35.0-45.0); PO2 ABG 60.1 mmHg (80.0-100.0); PO2 FiO2 Ratio Arterial Blood 2.86 %; Site Drawn RIGHT RADIAL; Total Hemoglobin 12.9 g/dL (12.0-18.0)
[2022-03-02 10:59] LABS: Device ROOM AIR; Modified Allen's Test Pass
[2022-03-02 11:23] LABS: Basophils Percent Auto 0.1 % (0.2-1.2); Hematocrit 36.1 % (37.0-47.0); Hemoglobin 11.9 g/dL (12.0-15.0); Immature Granulocyte Absolute 0.09 K/mm3 (0.00-0.031); Immature Granulocyte Percent A 0.5 % (0-0.5); Lymphocytes Absolute Auto 0.57 K/mm3 (0.9-3.2); Lymphocytes Percent Auto 3.3 % (18.3-44.2); Mean Corpuscular Hemoglobin 28.7 pg (26-34); Mean Corpuscular Volume 87.2 fl (80-100); Mean Platelet Volume 9.7 fl (7.4-10.4); Monocytes Absolute Auto 0.2 K/mm3 (0.1-0.6); Monocytes Percent Auto 1.3 % (2.6-8.5); Neutrophils Absolute Auto 16.4 K/mm3 (1.3-6.7); Neutrophils Percent Auto 94.8 % (45.5-73.1); Platelet Count Result 502 k/mm3 (150-375); Red Blood Count 4.14 M/mm3 (4.2-5.4); Red Cell Distribution Width 12.6 % (11.5-14.5); White Blood Count 17.3 K/mm3 (4.5-10.0)
[2022-03-02 11:36] LABS: Lactic Acid Reflex 3.8 mmol/L (0.7-2.0)
--- NOTE | 2022-03-02 11:50 | SUR.PREOP ---
Went to prep patient for cardiac cath, pt has large scar line from belly button down to pubic bone with small area with white scab. Pt informed this rn that she had hx of bowel resection and either this year or last year was treated several times for infections in that area of the scab. This rn informed primary rn and charge nurse and Chiquita Minaya.
--- NOTE | 2022-03-02 11:56 | ECG_ITS ---
Measurements Intervals [place] Rate: 101 P: 59 [place]: 135 QRS: 6 QRSD: 104 T: 0 QT: 371 QTc: 481 Interpretive Statements SINUS TACHYCARDIA LOW QRS VOLTAGE IN PRECORDIAL LEADS ANTEROLATERAL INFARCT, PROBABLY RECENT ABNORMAL ECG Electronically Signed On 03-02-2022 13:01:17 CDT by Leon Mora D.O.
[2022-03-02 12:07] LABS: Albumin Level 4.3 g/dL (3.5-5.1); Alkaline Phosphatase 140 U/L (38-126); Anion Gap 12 mmol/L (8-16); Aspartate Amino Transferase 52 U/L (14-36); Bilirubin,Total 0.4 mg/dL (0.2-1.3); Blood Urea Nitrogen 6 mg/dL (7-17); Carbon Dioxide 18 mmol/L (22-30); Chloride 115 mmol/L (98-107); Estimated CRCL calculation 101 ml/min; Estimated Glomerular Filt Rate > 60; Glucose 139 mg/dL (65-110); Lipase 292 U/L (23-300); Potassium 3.7 mmol/L (3.4-5.0); Sodium 145 mmol/L (137-145)
[2022-03-02 12:12] LABS: Alanine Aminotransferase 35 U/L (6-35)
[2022-03-02 12:14] LABS: NT Pro B Type Natriuretic Pept 1880 pg/mL (5-100)
[2022-03-02] MEDS: PANTOPRAZOLE SODIUM IV 40 MG VIAL IV PUSH ×2 (12:59→22:52)
[2022-03-02] MEDS: ROSUVASTATIN 10 MG TABLET 20 MG PO (12:59)
[2022-03-02 13:19] LABS: Appearance Urine Clear (Clear); Bilirubin Urine Negative (Negative); Color Urine Yellow (Yellow); Glucose Urine UA Negative (Negative); Ketones Urine 2+ mg/dL (Negative); Leukocyte Esterase Ur Negative LEU/UL (Negative); Nitrate Urine Negative (Negative); Protein Urine 2+ mg/dL (Negative); Specific Grav Ur 1.025 (1.001-1.035); Urobilinogen Urine 0.2 mg/dL (<2.0)
[2022-03-02 13:29] LABS: Add Urine Microscopic? YES; Blood Urine Trace-Intact (Negative)
[2022-03-02 13:34] LABS: Procalcitonin 0.1 ng/mL
[2022-03-02 14:19] LABS: Reflex Lactic Acid Yes or No Add Lactic
[2022-03-02 15:10] LABS: Lactic Acid 2.1 mmol/L (0.7-2.0)
--- NOTE | 2022-03-02 15:21 | WPDCARDPROC ---
Cardiac Cath Procedure Note Date of procedure:: 03/02/22 Performing physician:: Richardson Santiago MD Indication:: Chest pain, troponin elevation, new LV systolic dysfunction Brief clinical history:: this is a 51-year-old woman without previous history of coronary artery disease who entered the hospital with chest pain. There has been a moderate rise in her troponin level and severe LV dysfunction in a pattern suggestive of takotsubo cardiomyopathy Procedure Procedure performed:: coronary angiogram left ventricular, central aortic hemodynamics Sedation/Medication given:: fentanyl 50 mg Versed 2 mg case start time 2:56 p.m. case end time 3:11 p.m. sedation provided by Adalberto Alfaro RN, trained observer Access site:: right femoral artery Estimated blood loss:: 25 cc Procedure note:: patient was brought to the cardiac catheterization lab in the postabsorptive state where the right femoral triangle was prepared and draped in the usual fashion. Anesthesia was provided with 1% lidocaine infiltrated locally. Using modified Seldinger technique 5 Tamazight sheath was placed into the right femoral artery after this left heart catheterization carried out. I used a 5 Tamazight JR4 catheter to engage inject the right coronary artery. I then used a 5 Tamazight FL4 catheter to engage and inject the left coronary artery. Following this the cineangiograms were reviewed. I then lastly used a 5 Tamazight angled pigtail catheter to measure left-sided hemodynamics and pullback pressures across the aortic valve. An angiogram was done of the femoral artery through the sheath at which time it was determined the sheath will be removed with direct manual compression. ACT was 109 and so the sheath was removed in the cardiac catheterization lab. Patient left the cardiac catheterization lab with stable condition there were no signs of any procedural complications and no evidence of a groin hematoma. Findings:: Hemodynamics central aortic pressure is 146 over 118. left ventricle 148 over 14 end-diastolic pressure 42. no gradient across the aortic valve upon pullback the left ventricle was not injected during this procedure the left main coronary artery is large caliber and widely patent left anterior descending is a moderate caliber artery extending down to the apex there is no evidence of atherosclerosis in the LAD or its branches it is smooth and normal in appearance the circumflex is a large caliber vessel giving rise to the marginal branches and a posterior branch. The circumflex system is smooth and angiographically normal in appearance the right coronary artery is large in caliber and dominant to the posterior circulation. The right coronary artery is smooth and angiographically normal in appearance Conclusion:: 1. right coronary dominant circulation with no evidence of coronary disease 2. very high left ventricular filling pressures presumably related to takotsubo stress cardiomyopathy which was noted on echocardiogram Richardson Santiago MD [facility]
--- NOTE | 2022-03-02 15:27 | WPDMODSED ---
Moderate Sedation Note-Pt Data Patient Data Diagnosis: chest pain, possible acute coronary syndrome Present Complaint: chest pain, dyspnea Procedure to be performed/Plan: coronary angiography Allergies Allergy/AdvReac Type Severity Reaction Status Date / Time adhesive tape Allergy Blister Verified 03/02/22 02:41 amlodipine Allergy Hives Verified 03/02/22 02:41 Penicillins Allergy Hives Verified 03/02/22 02:41 Sulfa (Sulfonamide Allergy Hives Verified 03/02/22 02:41 Antibiotics) tamoxifen Allergy Hives Verified 03/02/22 02:41 Home Medications Medication Instructions Recorded Confirmed Type tizanidine 4 mg capsule 4 mg PO Q8H PRN Pain 06/18/21 03/02/22 History cetirizine 10 mg tablet (Zyrtec) 10 mg PO DAILY 07/14/21 03/02/22 History montelukast 10 mg tablet 10 mg PO DAILY 07/14/21 03/02/22 History (Singulair) pantoprazole 40 mg tablet,delayed 40 mg PO QAM 07/14/21 03/02/22 History release rosuvastatin 5 mg tablet 5 mg PO DAILY 07/14/21 03/02/22 History albuterol sulfate 2.5 mg/3 mL 2.5 mg inhalation PRN PRN 10/03/21 03/02/22 History (0.083 %) solution for nebulization Shortness Of Breath Or Wheezing raloxifene 60 mg PO DAILY 10/03/21 03/02/22 History tramadol 50 mg tablet 50 mg PO Q8H PRN Back Pain 10/03/21 03/02/22 History hydralazine 25 mg tablet 25 mg PO TID #90 tabs 10/19/21 03/02/22 Rx Current Medications: Active Medications Acetaminophen (Acetaminophen 325 Mg Tablet) 650 mg PO Q6H PRN PRN Reason: Pain Rated 5 or Less Hydrocodone Bitart/Acetaminophen (Hydrocodone/Acetaminophen (*Crx) 5-325 Mg Tablet) 1 tab PO Q6H PRN PRN Reason: Pain Rated 6 or Greater Last Admin: 03/02/22 09:31 Dose: 1 tab Albuterol (Albuterol Sulfate Neb 2.5 Mg/3 Ml Inh) 5 mg INHALATION Q6HRT PRN PRN Reason: Shortness Of Breath Or Wheezing Aspirin (Aspirin 81 Mg Chewable Tablet) 81 mg PO DAILY@0800 [facility] Last Admin: 03/02/22 10:09 Dose: 81 mg Heparin Sodium (Porcine) (Heparin Sodium 5,000 Units/Ml Vial) 4,000 units IV PUSH PRN PRN PRN Reason: aPTT less than 55 seconds Heparin Sodium (Porcine) (Heparin Sodium 5,000 Units/Ml Vial) 2,500 units IV PUSH PRN PRN PRN Reason: aPTT 55 - 70 seconds Heparin Sodium/Dextrose (Heparin Sodium/D5w 100 Units/Ml) 25,000 units in 250 mls @ 8 mls/hr IV CONT .Q24H [facility]; Protocol Last Admin: 03/02/22 10:08 Dose: 800 units/hr, 8 mls/hr Imipenem/Cilastatin Sodium (Primaxin 500 Mg/Ns 100 Ml) 500 mg in 100 mls @ 300 mls/hr IVPB Q6HR [facility] Last Infusion: 03/02/22 13:30 Dose: Infused Vancomycin HCl (Vancomycin 1,250 Mg/D5w 250 Ml) 1,250 mg in 250 mls @ 200 mls/hr IVPB Q12H [facility] Last Admin: 03/02/22 12:55 Dose: 200 mls/hr Sodium Chloride (Normal Saline Iv) 1,000 mls @ 125 mls/hr IV CONT .Q8H ONE Stop: 03/02/22 23:16 Ipratropium [employer] (Ipratropium Br 0.02% Inh Soln 0.5 Mg/2.5 Ml Vial) 0.5 mg INHALATION Q6HRT [facility] Last Admin: 03/02/22 10:59 Dose: Not Given Levalbuterol HCl (Levalbuterol Neb 1.25 Mg/3 Ml) 0.63 mg INHALATION Q6HRT [facility] Metoprolol Tartrate (Metoprolol Tartrate 25 Mg Tablet) 25 mg PO Q12HR [facility] Last Admin: 03/02/22 10:10 Dose: 25 mg Nitroglycerin (Nitroglycerin Ointment 1 Inch Dose) 1 inch TRANSDERM Q6HR [facility] Last Admin: 03/02/22 12:12 Dose: Not Given Ondansetron HCl (Ondansetron Inj 4 Mg/2 Ml Vial) 4 mg IV PUSH Q4H PRN PRN Reason: Nausea Last Admin: 03/02/22 10:14 Dose: 4 mg Pantoprazole Sodium (Pantoprazole Sodium Iv 40 Mg Vial) 40 mg IV PUSH Q12HR [facility] Rosuvastatin Calcium (Rosuvastatin 10 Mg Tablet) 20 mg PO QAM [facility] Last Admin: 03/02/22 12:59 Dose: 20 mg Sedation/Anesthesia: No previous sedation/anesthesia problems (including family history). [facility] Past Medical History Medical History Anxiety Asthma Bradycardia Depression GERD (gastroesophageal reflux disease) Hx of migraines Hyperlipidemia Hypertension (normal spontaneous vaginal delivery) x2 LEX (obstructi
[2022-03-02 15:54] LABS: Activated Clotting Time 109 SEC (74-137)
[2022-03-02] MEDS: SACUBITRIL/VALSARTAN 12-13 MG TABLET 1 TAB PO (22:01)
[2022-03-03] VITALS (22 sets, daily range): BP systolic 95–132; BP diastolic 67–92; PULSE 81–106; RESP 16–28; TEMP 36.7–37.6; O2SAT 94–100
--- NOTE | 2022-03-03 02:56 | PCRCNOTE ---
Patient refused both her 1999 and 199 breathing treatments stating she feels she does not need them. Maybe treatments could be made PRN.
[2022-03-03 05:00] LABS: Basophils Percent Auto 0.1 % (0.2-1.2); Hematocrit 40.1 % (37.0-47.0); Hemoglobin 12.6 g/dL (12.0-15.0); Immature Granulocyte Absolute 0.11 K/mm3 (0.00-0.031); Immature Granulocyte Percent A 0.6 % (0-0.5); Lymphocytes Absolute Auto 1.54 K/mm3 (0.9-3.2); Lymphocytes Percent Auto 8.3 % (18.3-44.2); Mean Corpuscular HGB Conc 31.4 g/dl (32-36); Mean Corpuscular Hemoglobin 28.6 pg (26-34); Mean Corpuscular Volume 91.1 fl (80-100); Mean Platelet Volume 9.5 fl (7.4-10.4); Monocytes Absolute Auto 1.4 K/mm3 (0.1-0.6); Monocytes Percent Auto 7.4 % (2.6-8.5); Neutrophils Absolute Auto 15.4 K/mm3 (1.3-6.7); Neutrophils Percent Auto 83.6 % (45.5-73.1); Platelet Count Result 471 k/mm3 (150-375); Red Cell Distribution Width 12.8 % (11.5-14.5); White Blood Count 18.5 K/mm3 (4.5-10.0)
[2022-03-03 05:25] LABS: Alanine Aminotransferase 34 U/L (6-35); Albumin Level 4.1 g/dL (3.5-5.1); Alkaline Phosphatase 132 U/L (38-126); Anion Gap 6 mmol/L (8-16); Aspartate Amino Transferase 84 U/L (14-36); Bilirubin,Total 0.5 mg/dL (0.2-1.3); Blood Urea Nitrogen 13 mg/dL (7-17); Carbon Dioxide 24 mmol/L (22-30); Chloride 113 mmol/L (98-107); Estimated CRCL calculation 78 ml/min; Estimated Glomerular Filt Rate > 60; Glucose 122 mg/dL (65-110); Magnesium 2.3 mg/dL (1.6-2.3); Phosphorus 2.7 mg/dL (2.5-4.5); Potassium 3.8 mmol/L (3.4-5.0); Sodium 143 mmol/L (137-145)
--- NOTE | 2022-03-03 06:26 | ECG_ITS ---
Measurements Intervals [place] Rate: 89 P: 47 [place]: 116 QRS: -28 QRSD: 94 T: 204 QT: 442 QTc: 540 Interpretive Statements SINUS RHYTHM WITH SHORT HI INTERVAL ANTEROLATERAL INFARCT, PROBABLY RECENT HIGH LATERAL INFARCT, PROBABLY RECENT INFERIOR INFARCT, PROBABLY RECENT ABNORMAL ECG Electronically Signed On 03-03-2022 11:49:36 CDT by Leon Mora D.O.
[2022-03-03] MEDS: ONDANSETRON INJ 4 MG/2 ML VIAL IV PUSH ×3 (06:48→21:29)
--- NOTE | 2022-03-03 07:39 | PM.PNCARD ---
Progress Note: A&P Assessment and Plan (1) Takotsubo cardiomyopathy: Code(s): I51.81 - Takotsubo syndrome Status: Acute Assessment and Plan: Troponin at 10. Serial troponin to [facility]. 03/03/22 [facility] with Dr. Santiago shows normal coronaries with high LVEDP c/w Takotsubo. Would like to start her on diuretic as she has orthopnea, but she also has nausea/vomited and would like to avoid volume depletion. Will start low dose Lasix 20 mg daily. On Metoprolol Tartate 25 mg BID (and not Coreg or Toprol XL) given her frequent asthma exacerbations per year and her history of bradycardia. On Entresto. Life Vest ordered and hopefully can get fitted today. Anticipate d/c home tomorrow. (2) Bradycardia: Code(s): R00.1 - Bradycardia, unspecified Status: Acute Assessment and Plan: Monitor. (3) LEX (obstructive sleep apnea): Code(s): G47.33 - Obstructive sleep apnea (adult) (pediatric) Status: Acute Assessment and Plan: Continue CPAP use for sleep. (4) Hyperlipidemia: Code(s): E78.5 - Hyperlipidemia, unspecified Status: Acute Assessment and Plan: On Rosuvastatin 5 mg daily. (5) Elevated troponin: Code(s): R77.8 - Other specified abnormalities of plasma proteins Status: Acute Assessment and Plan: Follow to peak. (6) Chest pain: Qualifiers: Chest pain type: unspecified Qualified Code(s): R07.9 - Chest pain, unspecified Code(s): R07.9 - Chest pain, unspecified Status: Acute Assessment and Plan: Resolved, related to Takotsubo. (7) Hypertension: Code(s): I10 - Essential (primary) hypertension Status: Acute Assessment and Plan: Stable. Subjective Date/time seen: 03/03/22 07:39 She had nausea/vomited last night. No more chest pain. She does get sob lying flat. Exam Const: General: cooperative, healthy appearing and comfortable Resp: Auscultation: clear to auscultation bilaterally, no crackles, no rales, no rhonchi and no wheezes Cardio: Jugular venous distension: no JVD Rate: regular rate Rhythm: regular rhythm Heart sounds: no murmurs Peripheral pulses: dorsalis pedis present GI: GI Palp: No abdominal tenderness and Yes Soft to palpation Neuro: General: oriented to person, oriented to place and oriented to time Extrem: Right lower extremity: no edema Left lower extremity: no edema Objective Data Vital Signs Vital Signs: Vital Signs - 24 hr 03/02/22 08:00 03/02/22 10:10 03/02/22 08:00 Temperature 97.4 F L Pulse Rate 124 H 122 H 144 H Pulse Rate [Right Pedal (Dorsalis Pedis) Palpation] Respiratory Rate 20 Blood Pressure 150/93 H Pulse Oximetry 98 Oxygen Delivery Oxygen Flow Rate 03/02/22 08:00 03/02/22 12:00 03/02/22 10:00 Temperature 97.8 F Pulse Rate 98 29 L Pulse Rate [Right Pedal (Dorsalis Pedis) Palpation] Respiratory Rate 16 Blood Pressure 129/86 Pulse Oximetry 94 Oxygen Delivery Room Air Oxygen Flow Rate 03/02/22 12:00 03/02/22 12:00 03/02/22 14:00 Temperature Pulse Rate 109 H 101 H Pulse Rate [Right Pedal (Dorsalis Pedis) Palpation] Respiratory Rate Blood Pressure Pulse Oximetry Oxygen Delivery Room Air Oxygen Flow Rate 03/02/22 14:29 03/02/22 15:52 03/02/22 16:01 Temperature Pulse Rate Pulse Rate [Right Pedal (Dorsalis Pedis) Palpation] 96 Respiratory Rate 24 H Blood Pressure 156/109 H Pulse Oximetry 93 91 Oxygen Delivery Room Air Room Air Oxygen Flow Rate 03/02/22 16:15 03/02/22 15:59 03/02/22 16:23 Temperature Pulse Rate 90 Pulse Rate [Right Pedal (Dorsalis Pedis) Palpation] 89 Respiratory Rate 26 H 26 H Blood Pressure 141/111 H 144/122 H Pulse Oximetry 92 91 Oxygen Delivery Nasal Cannula Room Air Oxygen Flow Rate 3 03/02/22 16:30 03/02/22 16:30 03/02/22 16:44 Temperature Pulse Rate 89 92 Pulse Rate [Right Pedal (Dorsalis Pedis)
[2022-03-03] MEDS: LEVALBUTEROL NEB 1.25 MG/3 ML 0.63 MG INHALATION ×3 (08:36→20:10)
[2022-03-03] MEDS: IPRATROPIUM BR 0.02% INH SOLN 0.5 MG/2.5 ML VIAL INHALATION ×3 (08:36→20:09)
[2022-03-03] MEDS: FUROSEMIDE 20 MG TABLET PO (08:46)
[2022-03-03] MEDS: ROSUVASTATIN 5 MG TABLET PO (08:46)
[2022-03-03] MEDS: SACUBITRIL/VALSARTAN 12-13 MG TABLET 1 TAB PO ×2 (08:46→20:04)
[2022-03-03] MEDS: ASPIRIN 81 MG CHEWABLE TABLET PO (08:46)
[2022-03-03] MEDS: ENOXAPARIN 40 MG/0.4 ML SYRINGE SUB-Q (08:46)
[2022-03-03] MEDS: METOPROLOL TARTRATE 25 MG TABLET PO ×2 (10:42→20:04)
[2022-03-03] MEDS: PANTOPRAZOLE SODIUM IV 40 MG VIAL IV PUSH ×2 (10:44→20:04)
--- NOTE | 2022-03-03 16:59 | PM.IMPN ---
Progress Note: A&P Assessment and Plan (1) Chest pain: Qualifiers: Chest pain type: unspecified Qualified Code(s): R07.9 - Chest pain, unspecified Code(s): R07.9 - Chest pain, unspecified Status: Acute Assessment and Plan: Patient presents with atypical chest pain. Troponin elevated to 10.8. CXR showing LLL atelectasis. EKG does show ST T wave changes in high lateral leads which is new. Echo showing a change with EF of 20-25% which is new from September. Cardiology was consulted and patient underwent cardiac catheterization 03/02. LHC showing no CAD. Chest pain related to asthma and/or cardiomyopathy. (2) Cardiomyopathy: Code(s): I42.9 - Cardiomyopathy, unspecified Status: Acute Assessment and Plan: Echo showing global LV hypokinesis in all segments except basal segment consistent with takotsubo cardiomyopathy. EF was 20-25%, grade 2 diastolic dysfunction and mild pulmonary hypertension. Echo in September showed EF of 60-65% and grade 1 diastolic dysfunction and no pulmonary hypertension. Etiology unclear on the development of profound drop in her EF. Ischemic etiology ruled out with normal coronaries by heart cath. Consider takotsubo related to metabolic insult. Repeat CXR more consistent with CHF. Lasix started. She is feeling better. Continue medical management with Entresto, Metoprolol. Add Jardiance. LifeVest being arranged. (3) Chills: Code(s): R68.83 - Chills (without fever) Status: Acute Assessment and Plan: Patient with shaking chills. No fevers. Consider sepsis given the metabolic gap acidosis, leukocytosis, tachycardia, elevated lactic and chills. Concern for infectious process but no clear source. Chest x-ray shows left lower lobe atelectasis which could be pneumonia. She is having cough. COVID negative. Blood cultures NGTD. UA not consistent with UTI. WBC higher. Repeat CXR more consistent with CHF. Lasix started. She is feeling better. Continue abx for today but stop tomorrow if no clear etiology. Cultures no growth. Continue antibiotics (4) Asthma exacerbation: Qualifiers: Asthma persistence: unspecified Asthma severity: severe Qualified Code(s): J45.901 - Unspecified asthma with (acute) exacerbation Code(s): J45.901 - Unspecified asthma with (acute) exacerbation Status: Acute Assessment and Plan: Patient had inspiratory and expiratory wheezing noted on admission so suspect she did have asthma exacerbation on presentation. No wheezing appreciated today. Steroids held. Change albuterol to Xopenex and decreased dose given her tachycardia. Follow clinically. (5) Metabolic acidosis: Code(s): E87.2 - Acidosis Status: Acute Assessment and Plan: Patient presents with metabolic gap acidosis with a serum bicarb of 17 anion gap 18. [place] to be from lactic acidosis from poor perfusion from her new onset cardiomyopathy; albuterol can also cause elevate lactic acid. Consider also infectious etiology as sepsis. Metabolic acidosis has resolved. (6) Elevated troponin: Code(s): R77.8 - Other specified abnormalities of plasma proteins Status: Acute Assessment and Plan: As above (7) Leukocytosis (leucocytosis): Qualifiers: Leukocytosis type: unspecified Qualified Code(s): D72.829 - Elevated white blood cell count, unspecified Code(s): D72.829 - Elevated white blood cell count, unspecified Status: Acute Assessment and Plan: White count elevated on admission. She did take steroids prior to admission which could explain some of the elevated white count. They remain elevated but may be a lag since steroids just stopped yesterday. Will follow. (8) Abnormal liver function tests: Code(s): R79.89 - Other specified abnormal findings of blood chemistry Status: Acute Assessment and Plan: LFTs mildly elevated related t
[2022-03-03] MEDS: HYDROcodone/acetaminophen (*CRX) 5-325 MG TABLET 1 TAB PO (17:04)
[2022-03-03] MEDS: ACETAMINOPHEN 325 MG TABLET 650 MG PO (21:28)
[2022-03-04] VITALS (26 sets, daily range): BP systolic 102–116; BP diastolic 71–85; PULSE 68–127; RESP 14–24; TEMP 36.2–36.9; O2SAT 90–100
[2022-03-04 00:11] LABS: Vancomycin Trough 10.5 ug/mL (10.0-20.0)
[2022-03-04] MEDS: IPRATROPIUM BR 0.02% INH SOLN 0.5 MG/2.5 ML VIAL INHALATION ×4 (02:23→20:32)
[2022-03-04] MEDS: LEVALBUTEROL NEB 1.25 MG/3 ML 0.63 MG INHALATION ×4 (02:23→20:32)
[2022-03-04] MEDS: HYDROcodone/acetaminophen (*CRX) 5-325 MG TABLET 1 TAB PO (03:42)
[2022-03-04] MEDS: ONDANSETRON INJ 4 MG/2 ML VIAL IV PUSH ×2 (03:47→20:11)
[2022-03-04 05:38] LABS: Basophils Percent Auto 0.2 % (0.2-1.2); Hematocrit 39.5 % (37.0-47.0); Hemoglobin 12.6 g/dL (12.0-15.0); Immature Granulocyte Absolute 0.14 K/mm3 (0.00-0.031); Lymphocytes Percent Auto 7.5 % (18.3-44.2); Mean Corpuscular HGB Conc 31.9 g/dl (32-36); Mean Corpuscular Hemoglobin 28.8 pg (26-34); Mean Corpuscular Volume 90.4 fl (80-100); Mean Platelet Volume 9.8 fl (7.4-10.4); Monocytes Absolute Auto 1.9 K/mm3 (0.1-0.6); Monocytes Percent Auto 12.8 % (2.6-8.5); Neutrophils Absolute Auto 11.5 K/mm3 (1.3-6.7); Neutrophils Percent Auto 78.5 % (45.5-73.1); Platelet Count Result 315 k/mm3 (150-375); Red Blood Count 4.37 M/mm3 (4.2-5.4); Red Cell Distribution Width 12.2 % (11.5-14.5); White Blood Count 14.6 K/mm3 (4.5-10.0)
[2022-03-04 05:46] LABS: Alanine Aminotransferase 38 U/L (6-35); Albumin Level 3.6 g/dL (3.5-5.1); Alkaline Phosphatase 113 U/L (38-126); Anion Gap 6 mmol/L (8-16); Aspartate Amino Transferase 66 U/L (14-36); Bilirubin,Total 0.9 mg/dL (0.2-1.3); Blood Urea Nitrogen 14 mg/dL (7-17); Calcium 8.2 mg/dL (8.4-10.2); Carbon Dioxide 29 mmol/L (22-30); Chloride 105 mmol/L (98-107); Estimated CRCL calculation 102 ml/min; Estimated Glomerular Filt Rate > 60; Glucose 120 mg/dL (65-110); Magnesium 2.2 mg/dL (1.6-2.3); Phosphorus 2.6 mg/dL (2.5-4.5); Potassium 3.2 mmol/L (3.4-5.0); Sodium 140 mmol/L (137-145)
[2022-03-04 07:25] LABS: Creatine Kinase 125 U/L (30-135)
[2022-03-04] MEDS: FUROSEMIDE 20 MG TABLET PO ×2 (08:30→13:21)
[2022-03-04] MEDS: ENOXAPARIN 40 MG/0.4 ML SYRINGE SUB-Q (08:30)
[2022-03-04] MEDS: EMPAGLIFLOZIN 10 MG TABLET PO (08:30)
[2022-03-04] MEDS: ROSUVASTATIN 5 MG TABLET PO (08:30)
[2022-03-04] MEDS: SACUBITRIL/VALSARTAN 12-13 MG TABLET 1 TAB PO ×2 (08:30→20:27)
[2022-03-04] MEDS: ASPIRIN 81 MG CHEWABLE TABLET PO (08:30)
[2022-03-04] MEDS: POTASSIUM CHLORIDE 20 MEQ TABLET 40 MEQ PO (08:31)
[2022-03-04] MEDS: PANTOPRAZOLE SODIUM IV 40 MG VIAL IV PUSH ×2 (08:31→20:27)
[2022-03-04] MEDS: METOPROLOL TARTRATE 25 MG TABLET PO ×2 (08:31→20:26)
--- NOTE | 2022-03-04 09:17 | PM.PNCARD ---
Progress Note: A&P Assessment and Plan (1) Takotsubo cardiomyopathy: Code(s): I51.81 - Takotsubo syndrome Status: Acute Assessment and Plan: Probably due to stress from a forced relocation. Troponin peaked at 10. 03/03/[address] [facility] with Dr. Santiago shows normal coronaries with high LVEDP c/w Takotsubo. On Metoprolol Tartate 25 mg BID (and not Coreg or Toprol XL) given her frequent asthma exacerbations per year and her history of bradycardia. On Entresto. Life Vest ordered and hopefully can get fitted today. Given KCL 40 meq PO x1. Increase Lasix 40 mg PO BID with KCl 20 meq BID. Anticipate if breathing better with increase diuretic may d/c home then f/u with me in 1 week. (2) Bradycardia: Code(s): R00.1 - Bradycardia, unspecified Status: Acute Assessment and Plan: Monitor. (3) LEX (obstructive sleep apnea): Code(s): G47.33 - Obstructive sleep apnea (adult) (pediatric) Status: Acute Assessment and Plan: Continue CPAP use for sleep. (4) Hyperlipidemia: Code(s): E78.5 - Hyperlipidemia, unspecified Status: Acute Assessment and Plan: On Rosuvastatin 5 mg daily. (5) Elevated troponin: Code(s): R77.8 - Other specified abnormalities of plasma proteins Status: Acute Assessment and Plan: Peaked at 10. (6) Chest pain: Qualifiers: Chest pain type: unspecified Qualified Code(s): R07.9 - Chest pain, unspecified Code(s): R07.9 - Chest pain, unspecified Status: Acute Assessment and Plan: Resolved, related to Takotsubo. (7) Hypertension: Code(s): I10 - Essential (primary) hypertension Status: Acute Assessment and Plan: Stable. Subjective Date/time seen: 03/04/22 09:17 Reports mild improvement in orthopnea. Reports difficulty taking a deep breath. No chest pains. Exam Const: General: cooperative, healthy appearing and comfortable Resp: Auscultation: clear to auscultation bilaterally, no crackles, no rales, no rhonchi and no wheezes Cardio: Jugular venous distension: no JVD Rate: regular rate Rhythm: regular rhythm Heart sounds: no murmurs Peripheral pulses: dorsalis pedis present GI: GI Palp: No abdominal tenderness and Yes Soft to palpation Neuro: General: oriented to person, oriented to place and oriented to time Extrem: Right lower extremity: no edema Left lower extremity: no edema Objective Data Vital Signs Vital Signs: Vital Signs - 24 hr 03/03/22 10:00 03/03/22 12:00 03/03/22 12:00 Temperature 99.5 F Pulse Rate 106 H 82 Respiratory Rate 16 Blood Pressure 95/67 L Pulse Oximetry 94 Oxygen Delivery Room Air Oxygen Flow Rate 03/03/22 12:00 03/03/22 14:24 03/03/22 14:35 Temperature Pulse Rate 84 85 93 Respiratory Rate 20 20 Blood Pressure Pulse Oximetry Oxygen Delivery Oxygen Flow Rate 03/03/22 14:00 03/03/22 16:00 03/03/22 16:15 Temperature 99.2 F Pulse Rate 84 94 Respiratory Rate 24 H Blood Pressure 122/77 Pulse Oximetry 95 Oxygen Delivery Room Air Oxygen Flow Rate 03/03/22 16:00 03/03/22 18:00 03/03/22 20:00 Temperature 99.6 F Pulse Rate 85 95 100 Respiratory Rate 20 Blood Pressure 119/75 Pulse Oximetry 100 Oxygen Delivery Oxygen Flow Rate 03/03/22 20:00 03/03/22 20:00 03/03/22 22:00 Temperature Pulse Rate 101 H 88 Respiratory Rate Blood Pressure Pulse Oximetry 100 Oxygen Delivery Nasal Cannula Oxygen Flow Rate 2 03/04/22 00:00 03/04/22 00:00 03/04/22 00:00 Temperature 98.3 F Pulse Rate 87 73 Respiratory Rate 20 Blood Pressure 102/72 Pulse Oximetry 100 100 Oxygen Delivery CPAP Oxygen Flow Rate 03/04/22 02:00 03/03/22 20:07 03/03/22 20:37 Temperature Pulse Rate 80 102 H 102 H Respiratory Rate 20 20 Blood Pressure Pulse Oximetry Oxygen Delivery Oxygen Flow Rate 03/04/22 02:23 03/04/22 02:43
--- NOTE | 2022-03-04 15:45 | PM.IMPN ---
Progress Note: A&P Assessment and Plan (1) Chest pain: Qualifiers: Chest pain type: unspecified Qualified Code(s): R07.9 - Chest pain, unspecified Code(s): R07.9 - Chest pain, unspecified Status: Acute Assessment and Plan: Patient presents with atypical chest pain. Troponin elevated to 10.8. CXR showing LLL atelectasis. EKG does show ST T wave changes in high lateral leads which is new.? Echo showing a change with EF of 20-25% which is new from September.? Cardiology was consulted and patient underwent cardiac catheterization 03/02. C showing no CAD. Chest pain related to asthma and/or cardiomyopathy. Resolved (2) Takotsubo cardiomyopathy: Code(s): I51.81 - Takotsubo syndrome Status: Acute Assessment and Plan: Echo showing global LV hypokinesis in all segments except basal segment consistent with takotsubo cardiomyopathy.? EF was 20-25%, grade 2 diastolic dysfunction and mild pulmonary hypertension.? Echo in September showed EF of 60-65% and grade 1 diastolic dysfunction and no pulmonary hypertension.? Etiology unclear on the development of profound drop in her EF.? Ischemic etiology ruled out with normal coronaries by heart cath. Consider takotsubo related to metabolic insult (PNA?).?Lasix advanced. She is feeling better. Continue medical management with Entresto, Metoprolol. Add Jardiance. LifeVest was arranged. (3) Chills: Code(s): R68.83 - Chills (without fever) Status: Acute Assessment and Plan: Patient with shaking chills on admission.? No fevers. Consider sepsis given the metabolic gap acidosis, leukocytosis, tachycardia, elevated lactic and chills.? COVID negative. Blood cultures NGTD. UA not consistent with UTI. Chest x-ray shows left lower lobe atelectasis which could be pneumonia. She is having cough. WBC better but she felt worse today and more SOB. Repeat CXR this morning also showing worsening airspace opacities in the bases despite startiing Lasix. Continue abx for now. If she improves tomorrow, consider home on doxy. (4) Asthma exacerbation: Qualifiers: Asthma persistence: unspecified Asthma severity: severe Qualified Code(s): J45.901 - Unspecified asthma with (acute) exacerbation Code(s): J45.901 - Unspecified asthma with (acute) exacerbation Status: Acute Assessment and Plan: Patient had inspiratory and expiratory wheezing noted on admission so suspect she did have asthma exacerbation on presentation.? No wheezing appreciated today. Steroids stopped. Continue Xopenex.? Follow clinically. (5) Metabolic acidosis: Code(s): E87.2 - Acidosis Status: Acute Assessment and Plan: Patient presents with metabolic gap acidosis with a serum bicarb of 17; anion gap 18.? [place] to be from lactic acidosis from poor perfusion from her new onset cardiomyopathy; albuterol can also cause elevate lactic acid.? Consider also infectious etiology such as PNA with sepsis.? Metabolic acidosis has resolved. (6) Elevated troponin: Code(s): R77.8 - Other specified abnormalities of plasma proteins Status: Acute Assessment and Plan: As above (7) Leukocytosis (leucocytosis): Qualifiers: Leukocytosis type: unspecified Qualified Code(s): D72.829 - Elevated white blood cell count, unspecified Code(s): D72.829 - Elevated white blood cell count, unspecified Status: Acute Assessment and Plan: White count elevated on admission.? She did take steroids prior to admission which could explain some of the elevated white count. WBC better today (8) Abnormal liver function tests: Code(s): R79.89 - Other specified abnormal findings of blood chemistry Status: Acute Assessment and Plan: LFTs mildly elevated related to hepatic congestion. Levels overall improved. Will follow. (9) LEX (obstructive sleep apnea): Code(s): G47.33 - Obstructive sleep
[2022-03-04] MEDS: FUROSEMIDE 40 MG TABLET PO (17:49)
[2022-03-04] MEDS: POTASSIUM CHLORIDE 20 MEQ TABLET.ER PO (17:49)
[2022-03-05] VITALS (16 sets, daily range): BP systolic 98–112; BP diastolic 60–75; PULSE 72–99; RESP 16–24; TEMP 36.1–37.2; O2SAT 96–98
[2022-03-05] MEDS: LEVALBUTEROL NEB 1.25 MG/3 ML 0.63 MG INHALATION ×3 (02:38→13:45)
[2022-03-05] MEDS: IPRATROPIUM BR 0.02% INH SOLN 0.5 MG/2.5 ML VIAL INHALATION ×3 (02:38→13:45)
[2022-03-05 05:01] LABS: Basophils Absolute Auto 0.1 K/mm3 (0.0-0.1); Basophils Percent Auto 0.5 % (0.2-1.2); Eosinophils Absolute Auto 0.1 K/mm3 (0-0.3); Eosinophils Percent Auto 0.8 % (0-4.4); Hematocrit 43.5 % (37.0-47.0); Hemoglobin 13.8 g/dL (12.0-15.0); Immature Granulocyte Absolute 0.14 K/mm3 (0.00-0.031); Immature Granulocyte Percent A 1.3 % (0-0.5); Lymphocytes Absolute Auto 1.53 K/mm3 (0.9-3.2); Mean Corpuscular HGB Conc 31.7 g/dl (32-36); Mean Corpuscular Hemoglobin 29.3 pg (26-34); Mean Corpuscular Volume 92.4 fl (80-100); Mean Platelet Volume 9.9 fl (7.4-10.4); Monocytes Absolute Auto 0.9 K/mm3 (0.1-0.6); Monocytes Percent Auto 8.5 % (2.6-8.5); Neutrophils Absolute Auto 8.2 K/mm3 (1.3-6.7); Neutrophils Percent Auto 74.9 % (45.5-73.1); Platelet Count Result 289 k/mm3 (150-375); Red Blood Count 4.71 M/mm3 (4.2-5.4); Red Cell Distribution Width 12.1 % (11.5-14.5); White Blood Count 10.9 K/mm3 (4.5-10.0)
[2022-03-05 05:20] LABS: Alanine Aminotransferase 33 U/L (6-35); Albumin Level 3.9 g/dL (3.5-5.1); Alkaline Phosphatase 124 U/L (38-126); Anion Gap 8 mmol/L (8-16); Aspartate Amino Transferase 38 U/L (14-36); Bilirubin,Total 0.7 mg/dL (0.2-1.3); Blood Urea Nitrogen 12 mg/dL (7-17); Calcium 8.8 mg/dL (8.4-10.2); Carbon Dioxide 25 mmol/L (22-30); Chloride 106 mmol/L (98-107); Estimated CRCL calculation 88 ml/min; Estimated Glomerular Filt Rate > 60; Glucose 121 mg/dL (65-110); Magnesium 2.3 mg/dL (1.6-2.3); Phosphorus 1.8 mg/dL (2.5-4.5); Potassium 3.7 mmol/L (3.4-5.0); Sodium 139 mmol/L (137-145)
--- NOTE | 2022-03-05 07:29 | PM.PNCARD ---
Progress Note: A&P Assessment and Plan (1) Takotsubo cardiomyopathy: Code(s): I51.81 - Takotsubo syndrome Status: Acute Assessment and Plan: Echo showing global LV hypokinesis in all segments except basal segment consistent with takotsubo cardiomyopathy.? EF was 20-25%, grade 2 diastolic dysfunction and mild pulmonary hypertension.? Echo in September showed EF of 60-65% and grade 1 diastolic dysfunction and no pulmonary hypertension.? Etiology unclear on the development of profound drop in her EF.? Ischemic etiology ruled out with normal coronaries by heart cath, LVEDP elevated suggestive of Takotsubo stress myopathy, Takotsubo physiology also seen on echo. Continue medical management with Entresto, Metoprolol. Add Jardiance. LifeVest was arranged. Much improved today. OK for discharge from a cardiac perspective. Follow up with Dr. Mora in 1-2 weeks. (2) Chest pain: Qualifiers: Chest pain type: unspecified Qualified Code(s): R07.9 - Chest pain, unspecified Code(s): R07.9 - Chest pain, unspecified Status: Acute Assessment and Plan: Patient presents with atypical chest pain. Troponin elevated to 10.8. CXR showing LLL atelectasis. EKG does show ST T wave changes in high lateral leads which is new.? Echo showing a change with EF of 20-25% which is new from September.? Cardiology was consulted and patient underwent cardiac catheterization 03/02. [facility] showing no CAD. Chest pain related to asthma and/or cardiomyopathy. Resolved (3) Chills: Code(s): R68.83 - Chills (without fever) Status: Acute Assessment and Plan: Patient with shaking chills on admission.? No fevers. Consider sepsis given the metabolic gap acidosis, leukocytosis, tachycardia, elevated lactic and chills.? COVID negative. Blood cultures NGTD. UA not consistent with UTI. Chest x-ray shows left lower lobe atelectasis which could be pneumonia. She is having cough. WBC better but she felt worse today and more SOB. Repeat CXR this morning also showing worsening airspace opacities in the bases despite startiing Lasix. Continue abx for now. If she improves tomorrow, consider home on doxy. (4) Asthma exacerbation: Qualifiers: Asthma persistence: unspecified Asthma severity: severe Qualified Code(s): J45.901 - Unspecified asthma with (acute) exacerbation Code(s): J45.901 - Unspecified asthma with (acute) exacerbation Status: Acute Assessment and Plan: Patient had inspiratory and expiratory wheezing noted on admission so suspect she did have asthma exacerbation on presentation.? No wheezing appreciated today. Steroids stopped. Continue Xopenex.? Follow clinically. (5) Metabolic acidosis: Code(s): E87.2 - Acidosis Status: Acute Assessment and Plan: Patient presents with metabolic gap acidosis with a serum bicarb of 17; anion gap 18.? [place] to be from lactic acidosis from poor perfusion from her new onset cardiomyopathy; albuterol can also cause elevate lactic acid.? Consider also infectious etiology such as PNA with sepsis.? Metabolic acidosis has resolved. (6) Elevated troponin: Code(s): R77.8 - Other specified abnormalities of plasma proteins Status: Acute Assessment and Plan: As above (7) Leukocytosis (leucocytosis): Qualifiers: Leukocytosis type: unspecified Qualified Code(s): D72.829 - Elevated white blood cell count, unspecified Code(s): D72.829 - Elevated white blood cell count, unspecified Status: Acute Assessment and Plan: White count elevated on admission.? She did take steroids prior to admission which could explain some of the elevated white count. WBC better today (8) Abnormal liver function tests: Code(s): R79.89 - Other specified abnormal findings of blood chemistry Status: Acute Assessment and Plan: LFTs mildly elevated related to hepatic congestion. Levels overa
--- NOTE | 2022-03-05 08:39 | PM.DS ---
DS: Admitting Diagnosis Discharge Date 03/05/22 Admitting Diagnosis Chest Pain DS: Discharge Diagnosis Discharge Diagnosis (1) Chest pain: Qualifiers: Chest pain type: unspecified Qualified Code(s): R07.9 - Chest pain, unspecified Code(s): R07.9 - Chest pain, unspecified Status: Acute Assessment and Plan: Intially presented with atypical chest pain. Troponin elevated to 10.8. CXR showing LLL atelectasis. EKG does show ST T wave changes in high lateral leads which is new.?Echo showing a change with EF of 20-25% which is new from September.?Cardiology was consulted and patient underwent cardiac catheterization 03/02. [facility] showing no CAD. This morning patient denies chest pain, shortness of breath and difficulty breathing. Resolved. (2) Takotsubo cardiomyopathy: Code(s): I51.81 - Takotsubo syndrome Status: Acute Assessment and Plan: Echo showing global LV hypokinesis in all segments except basal segment consistent with takotsubo cardiomyopathy.? EF was 20-25%, grade 2 diastolic dysfunction and mild pulmonary hypertension.? Echo in September showed EF of 60-65% and grade 1 diastolic dysfunction and no pulmonary hypertension.? Etiology unclear on the development of profound drop in her EF.? Ischemic etiology ruled out with normal coronaries by heart cath. Consider takotsubo related to metabolic insult (PNA?).?Lasix advanced. She is feeling better. Continue medical management with Entresto, Metoprolol. Add Jardiance. LifeVest was arranged and patient will be discharged to home with life vest and close follow up with Cardiology in 1 week. Follow up BMP ordered to be followed up by PCP. (3) Chills: Code(s): R68.83 - Chills (without fever) Status: Acute Assessment and Plan: Patient with shaking chills on admission.? No fevers. Consider sepsis given the metabolic gap acidosis, leukocytosis, tachycardia, elevated lactic and chills.? COVID negative. Blood cultures NGTD. UA not consistent with UTI. Chest x-ray shows left lower lobe atelectasis which could be pneumonia. She is having cough. WBC better but she felt worse today and more SOB. Repeat CXR this morning also showing worsening airspace opacities in the bases despite startiing Lasix. Continue abx for now. If she improves tomorrow, consider home on doxy. 03/05/22 patient reporting postnasal drip and drainage with a cough. Patient has been on vancomycin since 03/02/22. CXR from 03/04/22 showing worsened airspace opacities at the lung bases. Will empirically treat for pneumonia with linezolid and levofloxacin for three more days. (4) Asthma exacerbation: Qualifiers: Asthma persistence: unspecified Asthma severity: severe Qualified Code(s): J45.901 - Unspecified asthma with (acute) exacerbation Code(s): J45.901 - Unspecified asthma with (acute) exacerbation Status: Acute Assessment and Plan: Patient had inspiratory and expiratory wheezing noted on admission so suspect she did have asthma exacerbation on presentation.? No wheezing appreciated today. Steroids stopped. Continue Xopenex.?Lung with no wheezes. This appears to have resolved. (5) Metabolic acidosis: Code(s): E87.2 - Acidosis Status: Acute Assessment and Plan: Patient presents with metabolic gap acidosis with a serum bicarb of 17; anion gap 18.? [place] to be from lactic acidosis from poor perfusion from her new onset cardiomyopathy; albuterol can also cause elevate lactic acid.? Consider also infectious etiology such as PNA with sepsis.? Metabolic acidosis has resolved. (6) Elevated troponin: Code(s): R77.8 - Other specified abnormalities of plasma proteins Status: Acute Assessment and Plan: As above (7) Leukocytosis (leucocytosis): Qualifiers: Leukocytosis type: unspecified Qualified Code(s): D72.829 - Elevated white blood cell count, unspecified Code(s): D
[2022-03-05] MEDS: ASPIRIN 81 MG CHEWABLE TABLET PO (09:02)
[2022-03-05] MEDS: EMPAGLIFLOZIN 10 MG TABLET PO (09:02)
[2022-03-05] MEDS: PANTOPRAZOLE SODIUM IV 40 MG VIAL IV PUSH (09:02)
[2022-03-05] MEDS: POTASSIUM CHLORIDE 20 MEQ TABLET.ER PO (09:02)
[2022-03-05] MEDS: ENOXAPARIN 40 MG/0.4 ML SYRINGE SUB-Q (09:02)
[2022-03-05] MEDS: SACUBITRIL/VALSARTAN 12-13 MG TABLET 1 TAB PO (09:02)
[2022-03-05] MEDS: METOPROLOL TARTRATE 25 MG TABLET PO (09:03)
[2022-03-05] MEDS: FUROSEMIDE 40 MG TABLET PO (09:03)
[2022-03-05] MEDS: ROSUVASTATIN 5 MG TABLET PO (09:03)
[2022-03-09 14:06] LABS: Pneumococcal Antigen Urine Not Detected (Not Detected)
[2022-03-10 03:41] LABS: Legionella pneumophila Ag Ur Not Detected (Not Detected)
== END 2022-03-05 16:39 | disposition home or self-care (01) | DRG 192 ==
LOC: ANHED 06:15 → ANHIMU 06:37
PROVIDERS: Internal Medicine; Internal Medicine Cardiovascular Disease; Specialist; Admitting Provider Student in an Organized Health Care Education/Training Program; Emergency Provider Emergency Medicine; PCP Family Medicine; Visit Provider Family Medicine
PROC: 4A023N7 Measurement of Cardiac Sampling and Pressure, Left Heart, Percutaneous Approach (ICD-10-PCS; CPT 93454; principal; 2022-03-02 12:00)
DX: I51.81 Takotsubo syndrome (principal); A41.9 Sepsis, unspecified organism; J18.9 Pneumonia, unspecified organism; J45.901 Unspecified asthma with (acute) exacerbation; Z20.822 Contact with and (suspected) exposure to COVID-19; R00.1 Bradycardia, unspecified; E87.2 Acidosis; R77.8 Other specified abnormalities of plasma proteins; R79.89 Other specified abnormal findings of blood chemistry; R68.83 Chills (without fever); G47.33 Obstructive sleep apnea (adult) (pediatric); I10 Essential (primary) hypertension; D72.829 Elevated white blood cell count, unspecified; E78.5 Hyperlipidemia, unspecified; K21.9 Gastro-esophageal reflux disease without esophagitis; F32.A Depression, unspecified; Z90.49 Acquired absence of other specified parts of digestive tract; Z90.722 Acquired absence of ovaries, bilateral
CPT/HCPCS: 36415; 36600; 71045; 71046; 80053; 80202; 81001; 82550; 82805; 83605; 83690; 83735; 83880; 84100; 84145; 84484; 85025; 85610; 85730; 87040; 87070; 87077; 87106; 87186; 87205; 87449; 87899; 93005; 93454; 94640; 96361; 96365; 96366; 96367; 96372; 96375; 96376; 99285; A9270; C1887; C1894; C8929; C9113; C9803; G0378; G0379; J0743; J0780; J1644; J1650; J1885; J2250; J2405; J2930; J3010; J3370; J3475; J7030; J7040; J7512; Q9957; U0003; U0005

== ENCOUNTER 2022-03-09 08:21 | Outpatient (CLI) | payer OTHER, SELFPAY ==
[2022-03-09 08:58] LABS: Anion Gap 7 mmol/L (8-16); Blood Urea Nitrogen 16 mg/dL (7-17); Calcium 9.3 mg/dL (8.4-10.2); Carbon Dioxide 26 mmol/L (22-30); Chloride 103 mmol/L (98-107); Estimated Glomerular Filt Rate > 60; Glucose 115 mg/dL (65-110); Potassium 4.3 mmol/L (3.4-5.0); Sodium 136 mmol/L (137-145)
== END 2022-03-09 08:22 | disposition home or self-care (01) ==
LOC: ANHLAB 08:22
PROVIDERS: PCP Family Medicine; Visit Provider Family Medicine
DX: I42.9 Cardiomyopathy, unspecified (principal)
CPT/HCPCS: 36415; 80048

== ENCOUNTER 2022-03-16 12:58 | Emergency (ER) | payer OTHER, SELFPAY ==
[2022-03-16] VITALS (10 sets, daily range): BP systolic 86–112; BP diastolic 55–76; PULSE 81–98; RESP 16–20; TEMP 36.6; O2SAT 97–100
--- NOTE | ~2022-03-16 | CT_ITS ---
EXAMINATION: CTA chest PE protocol DATE: 03/16/2022 15:38 INDICATION: Shortness of breath TECHNIQUE: Computed tomography angiography (CTA) of the chest was performed with 100 mL Omnipaque-350 intravenous contrast timed to evaluate the pulmonary arteries. Coronal maximum intensity projection 3D-reconstructions were created by the technologist. The dose-length product (DLP) was 259.39 mGy-cm. Automated exposure control and iterative reconstruction technique were employed. COMPARISON: None. FINDINGS: The pulmonary arteries are well-opacified. No pulmonary embolism is identified. The lungs a re free of acute opacities. No pleural effusion or pneumothorax. A fissural lymph node is noted in as sociation with the right major fissure. No pathologically enlarged thoracic lymph nodes are identifie d. The heart size is normal. The gallbladder is surgically absent. There is mild thoracic spondylosis . IMPRESSION: 1. No pulmonary embolism or acute cardiopulmonary abnormality. Reviewed, dictated and finalized at location B.
--- NOTE | ~2022-03-16 | XR_ITS ---
EXAMINATION: XR chest 1V portable Exam Date/Time: 03/16/2022 14:10 CDT HISTORY: CHEST PAIN, SOB, COUGH Comparison: 03/04/2022. RESULT: Lines, tubes, and devices: None. Lungs and pleura: Interval resolution of the bibasilar opacities and small effusions, lungs now autumn r. Cardiomediastinal silhouette: Stable. Other: No acute osseous or upper abdominal finding. IMPRESSION: No acute cardiopulmonary process. Reviewed, dictated and finalized at location K.
--- NOTE | 2022-03-16 13:33 | ECG_ITS ---
Measurements Intervals [place] Rate: 88 P: 22 CA: 134 QRS: -69 QRSD: 101 T: 199 QT: 415 QTc: 504 Interpretive Statements SINUS RHYTHM LEFT ANTERIOR FASCICULAR BLOCK INFERIOR INFARCT, AGE INDETERMINATE ANTEROLATERAL INFARCT, AGE INDETERMINATE T WAVE ABNORMALITY IN HIGH LATERAL LEADS- CONSIDER ISCHEMIA ABNORMAL ECG Electronically Signed On 03-16-2022 15:13:48 CDT by Leon Mora D.O.
--- NOTE | 2022-03-16 13:33 | ED.SOB ---
HPI - SOB/Dyspnea General Chief Complaint: Shortness of Breath/Dyspnea <Georgina Allen PA-C - Last Filed: 03/16/22 18:38> Stated Complaint: covid positive, sob <Georgina Allen PA-C - Last Filed: 03/16/22 18:38> Time Seen by Provider: 03/16/22 13:12 <Georgina Allen PA-C - Last Filed: 03/16/22 18:38> History of Present Illness HPI Narrative: 51-year-old female with a history of Takotsubo cardiomyopathy, recently hospitalized with cath 03/06, currently wearing LifeVest due to reduced EF (20-25%) on GDMT, here for evaluation of shortness of breath, cough and chest pain in the setting of a positive COVID test yesterday. States that she was feeling okay yesterday, only took a COVID test because her was positive. She woke up today with her symptoms, decided to come to the ED given her recent history and some low blood pressures at home. Lowest BP was about 80/60. Denies any leg swelling, fevers, chills, syncope, abdominal pain, nausea or vomiting. <Georgina Allen PA-C - Last Filed: 03/16/22 18:38> Related Data Home Medications: Home Medications Medication Instructions Recorded Confirmed tizanidine 4 mg capsule 4 mg PO Q8H PRN Pain 06/18/21 03/02/22 cetirizine 10 mg tablet (Zyrtec) 10 mg PO DAILY 07/14/21 03/02/22 montelukast 10 mg tablet 10 mg PO DAILY 07/14/21 03/02/22 (Singulair) pantoprazole 40 mg tablet,delayed 40 mg PO QAM 07/14/21 03/02/22 release rosuvastatin 5 mg tablet 5 mg PO DAILY 07/14/21 03/02/22 albuterol sulfate 2.5 mg/3 mL 2.5 mg inhalation PRN PRN 10/03/21 03/02/22 (0.083 %) solution for nebulization Shortness Of Breath Or Wheezing tramadol 50 mg tablet 50 mg PO Q8H PRN Back Pain 10/03/21 03/02/22 <Georgina Allen PA-C - Last Filed: 03/16/22 18:38> Allergies/Adverse Reactions: Allergies Allergy/AdvReac Type Severity Reaction Status Date / Time adhesive tape Allergy Blister Verified 03/02/22 02:41 amlodipine Allergy Hives Verified 03/02/22 02:41 Penicillins Allergy Hives Verified 03/02/22 02:41 Sulfa (Sulfonamide Allergy Hives Verified 03/02/22 02:41 Antibiotics) tamoxifen Allergy Hives Verified 03/02/22 02:41 <Georgina Allen PA-C - Last Filed: 03/16/22 18:38> Review of Systems Review of Systems: Gen: Denies fevers or chills Eyes: Denies eye pain or visual change ENT: Reports congestion Respiratory: Reports shortness of breath and cough CV: Reports chest pain GI: Denies abdominal pain nausea, emesis or diarrhea : denies burning, urgency, frequency or hematuria Musculoskeletal: Denies back pain or muscle pain Neuro: Denies numbness, tingling, weakness or focal weakness Skin: Denies rash Except as documented, all other systems reviewed and negative <Georgina Allen PA-C - Last Filed: 03/16/22 18:38> [facility] [place] Past Medical History Medical History: Medical History Anxiety Asthma Bradycardia Depression GERD (gastroesophageal reflux disease) Hx of migraines Hyperlipidemia Hypertension (normal spontaneous vaginal delivery) x2 LEX (obstructive sleep apnea) Pseudoangiomatous stromal hyperplasia of breast 2012 <Georgina Allen PA-C - Last Filed: 03/16/22 18:38> Surgical History Surgical History: Surgical History H/O breast biopsy H/O oophorectomy History of bowel resection small intestine Hx of appendectomy S/P laparoscopic cholecystectomy <Georgina Allen PA-C - Last Filed: 03/16/22 18:38> Family History Family History: Family History Mother Breast cancer Father Throat cancer <Georgina Allen PA-C - Last Filed: 03/16/22 18:38> Social History Social History: Social History (Updated 03/02/22 @ 10:28 by Conrad Mancuso MD) Social History: Lifelong nonsmo
[2022-03-16 14:00] LABS: Basophils Percent Auto 0.6 % (0.2-1.2); Eosinophils Percent Auto 0.6 % (0-4.4); Hematocrit 41.9 % (37.0-47.0); Hemoglobin 13.3 g/dL (12.0-15.0); Immature Granulocyte Absolute 0.01 K/mm3 (0.00-0.031); Immature Granulocyte Percent A 0.2 % (0-0.5); Lymphocytes Absolute Auto 0.95 K/mm3 (0.9-3.2); Lymphocytes Percent Auto 19.9 % (18.3-44.2); Mean Corpuscular HGB Conc 31.7 g/dl (32-36); Mean Corpuscular Hemoglobin 28.4 pg (26-34); Mean Corpuscular Volume 89.3 fl (80-100); Mean Platelet Volume 9.8 fl (7.4-10.4); Monocytes Absolute Auto 0.6 K/mm3 (0.1-0.6); Monocytes Percent Auto 12.6 % (2.6-8.5); Neutrophils Absolute Auto 3.2 K/mm3 (1.3-6.7); Neutrophils Percent Auto 66.1 % (45.5-73.1); Platelet Count Result 292 k/mm3 (150-375); Red Blood Count 4.69 M/mm3 (4.2-5.4); Red Cell Distribution Width 12.6 % (11.5-14.5); White Blood Count 4.8 K/mm3 (4.5-10.0)
[2022-03-16 14:10] LABS: SARS-CoV-2 RNA PCR Positive
[2022-03-16 14:11] LABS: Alanine Aminotransferase 76 U/L (6-35); Albumin Level 4.1 g/dL (3.5-5.1); Alkaline Phosphatase 200 U/L (38-126); Anion Gap 9 mmol/L (8-16); Aspartate Amino Transferase 103 U/L (14-36); Bilirubin,Total 0.5 mg/dL (0.2-1.3); Blood Urea Nitrogen 10 mg/dL (7-17); Calcium 9.1 mg/dL (8.4-10.2); Carbon Dioxide 25 mmol/L (22-30); Chloride 103 mmol/L (98-107); Estimated CRCL calculation 68 ml/min; Estimated Glomerular Filt Rate > 60; Glucose 105 mg/dL (65-110); Potassium 4.4 mmol/L (3.4-5.0); Sodium 137 mmol/L (137-145)
[2022-03-16 14:31] LABS: NT Pro B Type Natriuretic Pept 1730 pg/mL (5-100); Troponin I 0.122 ng/mL (0.000-0.034)
[2022-03-16 15:08] LABS: Partial Thromboplastin Time 28.1 SECONDS (22.3-36.8)
[2022-03-16 15:10] LABS: D Dimer 0.74 ug/mL (<0.48); Prothrombin Time 13.2 Seconds (11.1-14.7)
== END 2022-03-16 17:28 | disposition home or self-care (01) ==
PROVIDERS: Physician Assistant; Emergency Provider Emergency Medicine; PCP Family Medicine
DX: U07.1 COVID-19 (principal); I51.81 Takotsubo syndrome; E78.5 Hyperlipidemia, unspecified; J45.909 Unspecified asthma, uncomplicated; I10 Essential (primary) hypertension; K21.9 Gastro-esophageal reflux disease without esophagitis; G47.33 Obstructive sleep apnea (adult) (pediatric); Z90.49 Acquired absence of other specified parts of digestive tract; I44.4 Left anterior fascicular block; R94.31 Abnormal electrocardiogram [ECG] [EKG]
CPT/HCPCS: 36415; 71045; 71275; 80053; 83880; 84484; 85025; 85380; 85610; 85730; 93005; 99284; C9803; Q9967; U0003; U0005

== ENCOUNTER 2022-08-21 11:27 | Emergency (ER) | payer OTHER, SELFPAY ==
--- NOTE | ~2022-08-21 | XR_ITS ---
EXAMINATION: XR chest 2V DATE: 08/21/2022 12:43 INDICATION: Shortness of breath. TECHNIQUE: Frontal and lateral views of the chest were obtained. COMPARISON: Chest single view 04/01/2022 FINDINGS: The chest demonstrates clear lungs without pneumonia, pleural effusion, or pneumothorax. Th e heart size is normal. Surgical clips in the right upper quadrant are likely from cholecystectomy. IMPRESSION: 1. No acute cardiopulmonary disease. Reviewed, dictated and finalized at location A. 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
[2022-08-21 11:30] VITALS: BP 137/77; PULSE 139; RESP 20; TEMP 37.1; O2SAT 100
--- NOTE | 2022-08-21 12:10 | ED.GENADULT ---
HPI - General Adult General Chief complaint: Abdominal Pain Stated complaint: poss kidney stone w/sob Time Seen by Provider: 08/21/22 12:00 Source: patient, RN notes reviewed and old records reviewed Mode of arrival: ambulatory Limitations: no limitations History of Present Illness HPI narrative: 52 year old female who presents to [facility] care with complaints of right flank pain which is radiating to the right mid abdomen area with some difficulty urinating past couple of days. Patient reports that she went to a [facility] urologist about a month ago for urinary leakage and they did bladder ultrasound and started her on an antispasmodic. Patient reports that she has had decreased appetite and nausea all weak. Patient reports that she has history of asthma and was treated for cardiomyopathy with use of life vest for 3 months with most recent cardiac function improved to Ejection fraction of 67%. Patient reports that she has some shortness of breath today. patient reports that she took home COVID test last night which was negative. MD complaint: right flank pain Onset (ago): day(s) (2--3) Severity scale (1-10): 5 Treatments prior to arrival: other (AZO) Related Data Home Medications Medication Instructions Recorded Confirmed tizanidine 4 mg capsule 4 mg PO Q8H PRN Pain 06/18/21 03/30/22 cetirizine 10 mg tablet (Zyrtec) 10 mg PO DAILY 07/14/21 03/30/22 montelukast 10 mg tablet 10 mg PO DAILY 07/14/21 03/30/22 (Singulair) pantoprazole 40 mg tablet,delayed 40 mg PO QAM 07/14/21 03/30/22 release rosuvastatin 5 mg tablet 5 mg PO DAILY 07/14/21 03/30/22 albuterol sulfate 2.5 mg/3 mL 2.5 mg inhalation PRN PRN 10/03/21 03/30/22 (0.083 %) solution for nebulization Shortness Of Breath Or Wheezing tramadol 50 mg tablet 50 mg PO Q8H PRN Back Pain 10/03/21 03/30/22 Allergies Allergy/AdvReac Type Severity Reaction Status Date / Time adhesive tape Allergy Blister Verified 08/21/22 13:57 amlodipine Allergy Hives Verified 08/21/22 13:57 Penicillins Allergy Hives Verified 08/21/22 13:57 Sulfa (Sulfonamide Allergy Hives Verified 08/21/22 13:57 Antibiotics) tamoxifen Allergy Hives Verified 08/21/22 13:57 Review of Systems Review of Systems: CONSTITUTIONAL: Denies fever, chills, or sweats. CARDIOVASCULAR: Denies chest pain, palpitations, or edema. RESPIRATORY: Denies cough reports dyspnea. GASTROINTESTINAL: Denies abdominal pain, nausea, vomiting, or diarrhea. GENITOURINARY: Reports difficulty with urination. Reports right flank pain radiating to abdomen unknown if hematuria took AZO SKIN: Denies rash or itching. MUSCULOSKELETAL: Denies back pain or myalgia. Positive for CVA tenderness NEUROLOGIC: Denies headache All systems reviewed & are unremarkable except as noted in HPI and below PMFSH Past Medical History Medical History Anxiety Asthma Bradycardia Depression GERD (gastroesophageal reflux disease) Hx of migraines Hyperlipidemia Hypertension (normal spontaneous vaginal delivery) x2 LEX (obstructive sleep apnea) Pseudoangiomatous stromal hyperplasia of breast 2012 Surgical History Surgical History H/O breast biopsy H/O oophorectomy History of bowel resection small intestine Hx of appendectomy S/P laparoscopic cholecystectomy Family History Family History Mother Breast cancer Father Throat cancer Social History Social History Social History: Lifelong nonsmoker. Denies alcohol or drug use. Lives at home with her and her biological daughter. She has a 2nd child who is older and has moved out. She is a full code. She nominates Cesia to be the individual to make medical decisions for her she is unable. Smoking status: Never smoker Alcohol intake: unknown Substance use: unknown Substance use type:
== END 2022-08-21 13:15 | disposition short-term general hospital (02) ==
LOC: EXPBETH 11:29
PROVIDERS: Emergency Provider Registered Nurse
DX: R10.9 Unspecified abdominal pain (principal); J45.909 Unspecified asthma, uncomplicated; K21.9 Gastro-esophageal reflux disease without esophagitis; E78.5 Hyperlipidemia, unspecified; I10 Essential (primary) hypertension
CPT/HCPCS: 71046; 81003; 87804; 99213; G0463

== ENCOUNTER 2022-08-21 13:53 | Emergency (ER) | payer OTHER, SELFPAY ==
[2022-08-21 13:57] VITALS: BP 120/93; PULSE 76; RESP 18; TEMP 36.4; O2SAT 100
--- NOTE | 2022-08-21 15:00 | PC.NURSE ---
Patient walked out of ED without difficulty and in no distress.
== END 2022-08-21 16:00 | disposition left against medical advice (07) ==
LOC: ANHED 15:37
DX: R10.9 Unspecified abdominal pain (principal)
CPT/HCPCS: 99199

== ENCOUNTER 2022-08-22 12:28 | Emergency (ER) | payer OTHER, SELFPAY | END 2022-08-22 12:33 | disposition left against medical advice (07) | DX: Z53.21 Procedure and treatment not carried out due to patient leaving prior to being seen by health care provider (principal) | CPT/HCPCS: 99199 ==

== ENCOUNTER 2022-08-24 22:40 | Emergency (ER) | payer OTHER, SELFPAY ==
--- NOTE | ~2022-08-24 | CT_ITS ---
CT Abdomen and Pelvis with contrast. History: Abdominal pain. Spiral CT of the abdomen and pelvis was performed after the administration of intravenous contrast. 1 00 cc of Omnipaque 350 was administered intravenously without complication. Dose reduction technique was used on this scan by utilizing automated exposure control and iterative reconstruction technique. The dose-length product (DLP) was 547.22 mGy-cm. COMPARISON: 02/26/2022 Findings: Scans through the lung bases demonstrate mild atelectatic change. Mild intrahepatic and extrahepatic biliary dilatation are likely related to prior cholecystectomy, si milar to prior exam. The liver, spleen, pancreas, adrenals and kidneys are otherwise within normal li mits. Cholecystectomy clips noted. No evidence of aortic aneurysm. No lymphadenopathy is seen. There is no evidence of bowel obstruction. There is no evidence to suggest acute appendicitis or dive rticulitis. Images through the pelvis were performed. Urinary bladder unremarkable. No adnexal mass identified. N o ascites is seen. Impression: No acute abnormality. Mild intrahepatic and extra hepatic biliary dilatation is likely related to prior cholecystectomy, un changed. Reviewed, dictated and finalized at location . BER SUPERVISOR Impression: No acute abnormality. Mild intrahepatic and extra hepatic biliary dilatation is likely related to arminda or cholecystectomy, unchanged.
[2022-08-24 22:44] VITALS: BP 138/89; PULSE 81; RESP 20; TEMP 36.3; O2SAT 100
[2022-08-24 22:58] LABS: Basophils Percent Auto 0.6 % (0.2-1.2); Eosinophils Absolute Auto 0.2 K/mm3 (0-0.3); Eosinophils Percent Auto 2.7 % (0-4.4); Hematocrit 38.7 % (37.0-47.0); Hemoglobin 13.2 g/dL (12.0-15.0); Immature Granulocyte Absolute 0.02 K/mm3 (0.00-0.031); Immature Granulocyte Percent A 0.3 % (0-0.5); Lymphocytes Absolute Auto 2.49 K/mm3 (0.9-3.2); Lymphocytes Percent Auto 35.9 % (18.3-44.2); Mean Corpuscular HGB Conc 34.1 g/dl (32-36); Mean Corpuscular Hemoglobin 29.3 pg (26-34); Mean Corpuscular Volume 85.8 fl (80-100); Monocytes Absolute Auto 0.5 K/mm3 (0.1-0.6); Monocytes Percent Auto 6.8 % (2.6-8.5); Neutrophils Absolute Auto 3.7 K/mm3 (1.3-6.7); Neutrophils Percent Auto 53.7 % (45.5-73.1); Platelet Count Result 316 k/mm3 (150-375); Red Blood Count 4.51 M/mm3 (4.2-5.4); Red Cell Distribution Width 12.1 % (11.5-14.5); White Blood Count 6.9 K/mm3 (4.5-10.0)
[2022-08-24 23:11] LABS: Alanine Aminotransferase 22 U/L (6-35); Albumin Level 4.2 g/dL (3.5-5.1); Alkaline Phosphatase 121 U/L (38-126); Anion Gap 6 mmol/L (8-16); Aspartate Amino Transferase 34 U/L (14-36); Bilirubin,Total 0.7 mg/dL (0.2-1.3); Blood Urea Nitrogen 13 mg/dL (7-17); Calcium 9.1 mg/dL (8.4-10.2); Carbon Dioxide 25 mmol/L (22-30); Chloride 107 mmol/L (98-107); Estimated CRCL calculation 87 ml/min; Estimated Glomerular Filt Rate > 60; Glucose 111 mg/dL (65-110); Lipase 101 U/L (23-300); Potassium 3.4 mmol/L (3.4-5.0); Sodium 138 mmol/L (137-145)
[2022-08-25] MEDS: LACTATED RINGERS 1,000 ML 999 ML IV CONT (01:31)
[2022-08-25] MEDS: MORPHINE SULFATE (*CRX) 4 MG/ML INJ IV PUSH (01:32)
[2022-08-25] MEDS: ONDANSETRON INJ 4 MG/2 ML VIAL IV PUSH (01:32)
[2022-08-25 02:09] LABS: Add Urine Microscopic? NO; Appearance Urine Clear (Clear); Bilirubin Urine Negative (Negative); Blood Urine Negative (Negative); Color Urine Yellow (Yellow); Glucose Urine UA Negative (Negative); Ketones Urine Negative (Negative); Leukocyte Esterase Ur Negative LEU/UL (Negative); Nitrate Urine Negative (Negative); Protein Urine Negative (Negative); Specific Grav Ur >= 1.030 (1.001-1.035); Urobilinogen Urine 0.2 mg/dL (<2.0); pH Urine 5.5 (5.0-9.0)
[2022-08-25 02:13] LABS: Bacteria Urine Trace /hpf; Mucus Urine Heavy /lpf; Squamous Epithelial Cell Urine Occasional /hpf (Few)
--- NOTE | 2022-08-25 02:29 | ED.ABDPAIN ---
HPI - Abdominal Pain General Chief Complaint: Abdominal Pain Stated Complaint: abdominal pain Time Seen by Provider: 08/25/22 00:33 History of Present Illness HPI narrative: Patient with history of Cholecystectomy, ERCP presents here with right upper quadrant pain and nausea worse after eating, for the past week. No fevers or chills. She is concerned that her liver enzymes are elevated again. Related Data Home Medications Medication Instructions Recorded Confirmed tizanidine 4 mg capsule 4 mg PO Q8H PRN Pain 06/18/21 03/30/22 cetirizine 10 mg tablet (Zyrtec) 10 mg PO DAILY 07/14/21 03/30/22 montelukast 10 mg tablet 10 mg PO DAILY 07/14/21 03/30/22 (Singulair) pantoprazole 40 mg tablet,delayed 40 mg PO QAM 07/14/21 03/30/22 release rosuvastatin 5 mg tablet 5 mg PO DAILY 07/14/21 03/30/22 albuterol sulfate 2.5 mg/3 mL 2.5 mg inhalation PRN PRN 10/03/21 03/30/22 (0.083 %) solution for nebulization Shortness Of Breath Or Wheezing tramadol 50 mg tablet 50 mg PO Q8H PRN Back Pain 10/03/21 03/30/22 Allergies Allergy/AdvReac Type Severity Reaction Status Date / Time adhesive tape Allergy Blister Verified 08/21/22 13:57 amlodipine Allergy Hives Verified 08/21/22 13:57 Penicillins Allergy Hives Verified 08/21/22 13:57 Sulfa (Sulfonamide Allergy Hives Verified 08/21/22 13:57 Antibiotics) tamoxifen Allergy Hives Verified 08/21/22 13:57 Review of Systems Review of Systems: CONST: No fever. HEENT: No sore throat C/V: No chest pain RESP: No cough GI: Reports abdominal pain, nausea, vomiting : No dysuria. M/S: No joint pain. SKIN: No rash. NEURO: [No headache or focal numbness or weakness] PSYCH: [No depression] PMFSH Past Medical History Medical History Anxiety Asthma Bradycardia Depression GERD (gastroesophageal reflux disease) Hx of migraines Hyperlipidemia Hypertension (normal spontaneous vaginal delivery) x2 LEX (obstructive sleep apnea) Pseudoangiomatous stromal hyperplasia of breast 2012 Surgical History Surgical History H/O breast biopsy H/O oophorectomy History of bowel resection small intestine Hx of appendectomy S/P laparoscopic cholecystectomy Family History Family History Mother Breast cancer Father Throat cancer Social History Social History Social History: Lifelong nonsmoker. Denies alcohol or drug use. Lives at home with her and her biological daughter. She has a 2nd child who is older and has moved out. She is a full code. She nominates Cesia to be the individual to make medical decisions for her she is unable. Smoking status: Never smoker Alcohol intake: unknown Substance use: unknown Substance use type: does not use Gender identity (if verbalized by the patient): Female Spiritual care concerns: No Exam Narrative: EXAMINATION OF ORGAN SYSTEMS/BODY AREAS: Constitutional: Vital signs per nursing GENERAL:[No acute distress, non-toxic appearing.] HEAD: Normal with no signs of head trauma. EYES: EOMI, conjunctiva normal ENT: Hearing grossly intact LUNGS: Nonlabored breathing. HEART: [Regular rate and rhythm] ABD: [Soft], [nontender to palpation] EXT: Normal range of motion SKIN: [No rashes or lesions.] NEURO: [Alert and oriented x 3. No gross focal sensory or strength deficits.] PSYCH: Normal affect Course Vital Signs Vital signs: Vital Signs Temperature 97.4 F L 08/24/22 22:44 Pulse Rate 81 08/24/22 22:44 Respiratory Rate 20 08/24/22 22:44 Blood Pressure 138/89 08/24/22 22:44 Pulse Oximetry 100 08/24/22 22:44 Oxygen Delivery Room Air 08/24/22 22:44 Temperature 97.4 F L 08/24/22 22:44 Pulse Rate 81 08/24/22 22:44 Respiratory Rate 20 08/24/22 22:44 Blood Pressure 138/87 08/25/22 02:39 Puls
[2022-08-25 02:37] VITALS: O2SAT 100
[2022-08-25 02:39] VITALS: BP 138/87; O2SAT 100
== END 2022-08-25 04:35 | disposition home or self-care (01) ==
PROVIDERS: Emergency Medicine; Emergency Provider Emergency Medicine
DX: R10.11 Right upper quadrant pain (principal); R11.0 Nausea; J45.909 Unspecified asthma, uncomplicated; E78.5 Hyperlipidemia, unspecified; I10 Essential (primary) hypertension; G47.33 Obstructive sleep apnea (adult) (pediatric); K21.9 Gastro-esophageal reflux disease without esophagitis; Z79.84 Long term (current) use of oral hypoglycemic drugs
CPT/HCPCS: 36415; 74177; 80053; 81003; 81025; 83690; 85025; 87086; 96361; 96374; 96375; 99284; J2270; J2405; J7120; Q9967

== ENCOUNTER 2022-09-23 00:36 | Day surgery (SDC) | payer OTHER, SELFPAY ==
[2022-09-10 14:14] VITALS: BMI 29.2
--- NOTE | 2022-09-22 08:55 | PC.NURSE ---
Dr. Martinez reviewed patients chart and history of recovered non-ischemic cardiomyopathy with cardiology clearance. Pt is okay to proceed with procedure.
[2022-09-23] VITALS (8 sets, daily range): BP systolic 146–169; BP diastolic 85–95; PULSE 60–95; RESP 13–22; TEMP 36.1–36.4; O2SAT 100
--- NOTE | ~2022-09-23 | XR_ITS ---
EXAMINATION: XR ERCP DATE: 09/23/2022 13:52 INDICATION: Right upper quadrant abdominal pain. TECHNIQUE: 7 spot fluoroscopic images of the right upper quadrant were obtained during endoscopic ret rograde cholangiopancreatography (ERCP). Fluoroscopy exposure time was 184. COMPARISON: CT abdomen and pelvis 08/25/2022 FINDINGS: The common duct is dilated. There are changes of cholecystectomy. IMPRESSION: 1. Dilated common duct. Please refer to the ERCP procedure note for additional details. Reviewed, dictated and finalized at location A. 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
--- NOTE | 2022-09-23 11:20 | WPDANESEPPF ---
Anes - Initial Pre Proc Eval Procedure: Operation Date: 09/23/22 13:00 Proposed Procedures p Endoscopic Retro Cholangiopancreatogram - Ethan Arce MD Date/Time: 09/23/22 11:20 Surgeon: Ethan Arce MD Pre Op Diagnosis: choledocholithiasis Patient Data Age: 52 Gender: F Height: 1.68 m Weight: 82 kg Last Vital Signs Temp 97.6 F 09/23/22 11:16 Pulse 60 09/23/22 11:16 Resp 18 09/23/22 11:16 BP 154/88 H 09/23/22 11:16 Pulse Ox 100 09/23/22 11:16 O2 Del Method Room Air 09/23/22 11:16 Allergies Allergy/AdvReac Type Severity Reaction Status Date / Time Penicillins Allergy Severe Hives Verified 09/23/22 11:14 adhesive tape Allergy Intermediate Blister Verified 09/23/22 11:14 amlodipine Allergy Intermediate Hives Verified 09/23/22 11:14 Sulfa (Sulfonamide Allergy Intermediate Hives Verified 09/23/22 11:14 Antibiotics) tamoxifen Allergy Intermediate Hives Verified 09/23/22 11:14 Home Medications Medication Instructions Recorded Confirmed Type tizanidine 4 mg capsule 4 mg PO Q8H PRN Pain 06/18/21 09/10/22 History cetirizine 10 mg tablet (Zyrtec) 10 mg PO DAILY 07/14/21 09/10/22 History montelukast 10 mg tablet 10 mg PO HS 07/14/21 09/10/22 History (Singulair) pantoprazole 40 mg tablet,delayed 40 mg PO QAM 07/14/21 09/10/22 History release rosuvastatin 5 mg tablet 5 mg PO DAILY 07/14/21 09/10/22 History albuterol sulfate 2.5 mg/3 mL 2.5 mg inhalation PRN PRN 10/03/21 09/10/22 History (0.083 %) solution for nebulization Shortness Of Breath Or Wheezing tramadol 50 mg tablet 50 mg PO Q8H PRN Back Pain 10/03/21 09/10/22 History sacubitril 24 mg-valsartan 26 mg 1 tablet PO Q12HR 30 days #60 tabs 03/05/22 09/10/22 Rx tablet (Entresto) metoprolol tartrate 25 mg tablet 12.5 mg PO BID #30 tabs 03/16/22 09/23/22 Rx ondansetron 4 mg disintegrating 4 mg PO Q8H PRN nausea and 08/25/22 09/10/22 Rx tablet vomiting #10 tabs albuterol sulfate 90 mcg/actuation 2 inh inhalation Q6H PRN Shortness 09/10/22 09/10/22 History aerosol inhaler Of Breath Or Wheezing levalbuterol HCl 1.25 mg/3 mL 0.63 mg inhalation Q6HRT PRN 09/10/22 09/10/22 History solution for nebulization Shortness Of Breath Or Wheezing lorazepam 0.5 mg tablet 0.5 mg PO HS 09/10/22 09/10/22 History solifenacin 10 mg tablet 10 mg PO DAILY 09/10/22 09/10/22 History Patient hx anesthesia problems: none Family hx anesthesia problems: none Results Review: All pre-operative results and documents have been reviewed as part of the pre-operative evaluation. [facility] Past Medical History Medical History Anxiety Asthma Bradycardia Depression GERD (gastroesophageal reflux disease) Hx of migraines Hyperlipidemia Hypertension (normal spontaneous vaginal delivery) x2 LEX (obstructive sleep apnea) Pseudoangiomatous stromal hyperplasia of breast 2012 Surgical History Surgical History H/O breast biopsy H/O oophorectomy History of bowel resection small intestine Hx of appendectomy S/P laparoscopic cholecystectomy Family History Family History Mother Breast cancer Father Throat cancer Social History Social History Social History: Lifelong nonsmoker. Denies alcohol or drug use. Lives at home with her and her biological daughter. She has a 2nd child who is older and has moved out. She is a full code. She nominates Cesia to be the individual to make medical decisions for her she is unable. Smoking status: Never smoker Alcohol intake: unknown Substance use: never Substance use type: does not use Living arrangements: with family Gender identity (if verbalized by the patient): Female Spiritual care concerns: No Anes - Eval Final PreProcedure Day of Procedure 09/23/22
[2022-09-23] MEDS: LACTATED RINGERS 1,000 ML 150 ML IV CONT (11:47)
--- NOTE | 2022-09-23 12:48 | PM.HPGS ---
History of Present Illness History of Present Illness Consent: Risks, benefits, and alternatives have been discussed and questions answered. Patient agrees to proceed with procedure. Chief complaint: choledocholithiasis Narrative: Chrissy Kilgore is a 52 year old female who Last year was hospitalized with severe abdominal pain.? 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 At that time she was jaundiced with bilirubin of 6.2 and elevation of her liver enzymes.? These all returned to normal after a couple of months.? When I saw her a month or 2 later she was still having pain in the right upper quadrant.? An ultrasound then showed that the bile ducts were no longer dilated.? Not long after that however those symptoms all disappeared.? Surprising however she developed a cardiomyopathy, and was told that her ejection fraction was down into the low 20s.? She was diagnosed with Takotsubo cardiomyopathy.? She wore a life vest for 3 months.? She is now said to be okay as her cardiac ejection fraction is up into the 60s.? During that time and since then she had no gastrointestinal symptoms until the day after August 16 She recently was back in the emergency room because of nausea and right upper quadrant pain that come on after eating.? The the pain never quite goes weight but is intensified by eating.? She feels that she has lost some appetite and is nauseated.? That was on August 24.? She had a CT scan of the abdomen that was unremarkable.? Also liver enzymes were normal.? Yesterday she saw her primary care provider who decided to repeat her liver enzymes.? Quite surprisingly, her alkaline phosphatase which was 121 in the emergency room jump to 157.? AST jumped from 34-91, PMFSH Past Medical History Medical History Anxiety Asthma Bradycardia Depression GERD (gastroesophageal reflux disease) Hx of migraines Hyperlipidemia Hypertension (normal spontaneous vaginal delivery) x2 LEX (obstructive sleep apnea) Pseudoangiomatous stromal hyperplasia of breast 2012 Surgical History Surgical History H/O breast biopsy H/O oophorectomy History of bowel resection small intestine Hx of appendectomy S/P laparoscopic cholecystectomy Family History Family History Mother Breast cancer Father Throat cancer Social History Social History Social History: Lifelong nonsmoker. Denies alcohol or drug use. Lives at home with her and her biological daughter. She has a 2nd child who is older and has moved out. She is a full code. She nominates Cesia to be the individual to make medical decisions for her she is unable. Smoking status: Never smoker Alcohol intake: unknown Substance use: never Substance use type: does not use Living arrangements: with family Gender identity (if verbalized by the patient): Female Spiritual care concerns: No Meds Home Medications and Allergies Home Medications Medication Instructions Recorded Confirmed Type tizanidine 4 mg capsule 4 mg PO Q8H PRN Pain 06/18/21 09/10/22 History cetirizine 10 mg tablet (Zyrtec) 10 mg PO DAILY 07/14/21 09/10/22 History montelukast 10 mg tablet 10 mg PO HS 07/14/21 09/10/22 History (Singulair) pantoprazole 40 mg tablet,delayed 40 mg PO QAM 07/14/21 09/10/22 History release rosuvastatin 5 mg tablet 5 mg PO DAILY 07/14/21 09/10/22 History albuterol sulfate 2.5 mg/3 mL 2.5 mg inhalation PRN PRN 10/03/21 09/10/22 History (0.083 %) solution for nebulization Shortness Of Breath Or Wheezing tramadol 50 mg tablet 50 mg PO Q8H PRN Back Pain 10/03/21 09/10/22 History sacubitril 24 mg-valsartan 26 mg 1 tablet PO Q12HR 30 days #60 tabs 03/05/22 09/10/22 Rx tablet (Entresto) metoprolol tartr
[2022-09-23] MEDS: diphenhydrAMINE HCl INJ 50 MG/ML VIAL 12.5 MG IV PUSH (14:05)
--- NOTE | 2022-09-23 14:31 | SUR.PHASEII ---
Patient states she is still nauseous. She is no longer dry heaving. Informed Dr. Arce of nausea symptoms. Patient is resting comfortably and able to keep down soda. No new orders or interventions. Dr. Arce states patient is ok to discharge home.
== END 2022-09-23 15:02 | disposition home or self-care (01) ==
PROVIDERS: Visit Provider Internal Medicine Gastroenterology
PROC: (CPT 43260; principal; 2022-09-23 13:00)
DX: K82.8 Other specified diseases of gallbladder (principal); I51.81 Takotsubo syndrome; K21.9 Gastro-esophageal reflux disease without esophagitis; G47.33 Obstructive sleep apnea (adult) (pediatric); I10 Essential (primary) hypertension; E78.5 Hyperlipidemia, unspecified; J45.909 Unspecified asthma, uncomplicated; F41.9 Anxiety disorder, unspecified; F32.A Depression, unspecified; Z79.51 Long term (current) use of inhaled steroids; E66.9 Obesity, unspecified; Z68.29 Body mass index [BMI] 29.0-29.9, adult
CPT/HCPCS: 43262; 43264; 74329; J0330; J1100; J1200; J2405; J2704; J7120

== ENCOUNTER 2022-09-30 08:13 | Outpatient (CLI) | payer OTHER, SELFPAY ==
[2022-09-30 09:44] LABS: Alanine Aminotransferase 19 U/L (6-35); Albumin Level 4.5 g/dL (3.5-5.1); Alkaline Phosphatase 123 U/L (38-126); Aspartate Amino Transferase 28 U/L (14-36); Bilirubin,Total 0.4 mg/dL (0.2-1.3); Lipase 57 U/L (23-300)
== END 2022-09-30 08:14 | disposition home or self-care (01) ==
LOC: ANHLAB 08:15
PROVIDERS: Visit Provider Internal Medicine Gastroenterology
DX: R94.5 Abnormal results of liver function studies (principal)
CPT/HCPCS: 36415; 80076; 83690

== ENCOUNTER → 2023-01-03 10:18 | Outpatient (CLI) | payer OTHER, SELFPAY ==
--- NOTE | ~2023-01-03 | XR_ITS ---
Lumbosacral Spine: AP, oblique, and lateral views Clinical History: Pain Findings: The normal lordotic curve is maintained. The vertebral bodies and posterior elements are i ntact. The intervertebral disc spaces are preserved. The sacroiliac joints are normally outlined. Impression: No significant abnormality. Reviewed, dictated and finalized at [facility]. Impression: No significant abnormality.
== END ==
PROVIDERS: PCP Family Medicine; Visit Provider Nurse Practitioner Family
DX: M54.50 Low back pain, unspecified (principal); M79.604 Pain in right leg
CPT/HCPCS: 72110

== ENCOUNTER 2023-01-16 17:44 | Emergency (ER) | payer OTHER, SELFPAY ==
[2023-01-16 17:56] VITALS: BP 155/54; PULSE 124; RESP 26; TEMP 36.1; O2SAT 100
[2023-01-16] MEDS: ALBUTEROL SULFATE NEB 2.5 MG/3 ML INH INHALATION (18:00)
[2023-01-16] MEDS: methylPREDNISolone SOD SUCC 125 MG VIAL IM (18:00)
[2023-01-16] MEDS: IPRATROPIUM BR 0.02% INH SOLN 0.5 MG/2.5 ML VIAL INHALATION (18:01)
--- NOTE | 2023-01-16 18:05 | ED.SOB ---
HPI - SOB/Dyspnea General Chief Complaint: Upper Respiratory Infection Stated Complaint: Shortness of Breath/Chest Congestion Source: patient and RN notes reviewed History of Present Illness HPI Narrative: 52 yo F with a hx of asthma, presents to urgent care with complaints of constant coughing and wheezing since yesterday. Pt reports vomiting from coughing so hard and reports being sweaty but no known fevers. Denies any chest pain, abdominal pain, diarrhea, SAAB, sore throat, or ear pain. Pt states her at home has Covid. Pt has taken 5 breathing treatments at home today without relief. Related Data Home Medications Medication Instructions Recorded Confirmed tizanidine 4 mg capsule 4 mg PO Q8H PRN Pain 06/18/21 01/16/23 cetirizine 10 mg tablet (Zyrtec) 10 mg PO DAILY 07/14/21 01/16/23 montelukast 10 mg tablet 10 mg PO HS 07/14/21 01/16/23 (Singulair) pantoprazole 40 mg tablet,delayed 40 mg PO QAM 07/14/21 01/16/23 release rosuvastatin 5 mg tablet 5 mg PO DAILY 07/14/21 01/16/23 albuterol sulfate 2.5 mg/3 mL 2.5 mg inhalation PRN PRN 10/03/21 01/16/23 (0.083 %) solution for nebulization Shortness Of Breath Or Wheezing albuterol sulfate 90 mcg/actuation 2 inh inhalation Q6H PRN Shortness 09/10/22 01/16/23 aerosol inhaler Of Breath Or Wheezing levalbuterol HCl 1.25 mg/3 mL 0.63 mg inhalation Q6HRT PRN 09/10/22 01/16/23 solution for nebulization Shortness Of Breath Or Wheezing lorazepam 0.5 mg tablet 0.5 mg PO HS 09/10/22 01/16/23 solifenacin 10 mg tablet 10 mg PO DAILY 09/10/22 01/16/23 docusate sodium 100 mg capsule mg PO 01/16/23 01/16/23 tramadol 50 mg tablet See Rx Instructions .Route .COMPLEX 01/16/23 01/16/23 Allergies Allergy/AdvReac Type Severity Reaction Status Date / Time Penicillins Allergy Severe Hives Verified 01/16/23 17:48 adhesive tape Allergy Intermediate Blister Verified 01/16/23 17:48 amlodipine Allergy Intermediate Hives Verified 01/16/23 17:48 Sulfa (Sulfonamide Allergy Intermediate Hives Verified 01/16/23 17:48 Antibiotics) tamoxifen Allergy Intermediate Hives Verified 01/16/23 17:48 Review of Systems Review of Systems: CONSTITUTIONAL: Denies fever, chills, or sweats. EYES: Denies visual changes, redness, or discharge. ENT: Denies otalgia and sore throat CARDIOVASCULAR: Denies chest pain, palpitations, or edema. RESPIRATORY: Cough and wheezing GASTROINTESTINAL: Denies abdominal pain, nausea, vomiting, or diarrhea. GENITOURINARY: Denies dysuria or hematuria. SKIN: Denies rash or itching. MUSCULOSKELETAL: Denies back pain, joint pain, or myalgia. NEUROLOGIC: Denies headache, numbness, or weakness. Pertinent positives per HPI. [facility] Past Medical History Medical History (Updated 01/16/23 @ 18:52 by Ada Scott, PAOLA) Acute sinusitis Anxiety Asthma Bradycardia Cervical radiculitis Cervicalgia Chills COVID-19 COVID-19 Depression Encounter to establish care Fatigue GERD (gastroesophageal reflux disease) Hx of migraines Hyperlipidemia Hypertension Low back pain radiating to right leg Metabolic acidosis (normal spontaneous vaginal delivery) x2 LEX (obstructive sleep apnea) Pneumonia Pseudoangiomatous stromal hyperplasia of breast 2013 Urinary incontinence Surgical History Surgical History H/O breast biopsy H/O oophorectomy History of bowel resection small intestine Hx of appendectomy S/P laparoscopic cholecystectomy Family History Family History Mother Breast cancer Father Throat cancer Social History Social History (Updated 01/03/23 @ 09:41 by Jo-Ann Bailey MA) Social History: Lifelong nonsmoker. Denies alcohol or drug use. Lives at home with her and her biological daughter. She has a 2nd child who is older and has moved out. She is a full code. She nominates Cesia to be the individual to make medical decisions for
[2023-01-16 18:30] VITALS: TEMP 36.1
[2023-01-16 18:46] VITALS: PULSE 115; RESP 24; O2SAT 100
== END 2023-01-16 18:55 | disposition home or self-care (01) ==
PROVIDERS: Emergency Provider Nurse Practitioner Family
DX: J45.901 Unspecified asthma with (acute) exacerbation (principal); K21.9 Gastro-esophageal reflux disease without esophagitis; E78.5 Hyperlipidemia, unspecified; I10 Essential (primary) hypertension; F41.9 Anxiety disorder, unspecified
CPT/HCPCS: 87426; 94640; 96372; 99213; C9803; G0463; J2930

== ENCOUNTER 2023-01-25 10:26 | Outpatient (CLI) | payer OTHER, SELFPAY ==
[2023-01-25 11:25] LABS: Basophils Percent Auto 0.5 % (0.2-1.2); Eosinophils Absolute Auto 0.2 K/mm3 (0-0.3); Hemoglobin 12.9 g/dL (12.0-15.0); Immature Granulocyte Absolute 0.11 K/mm3 (0.00-0.031); Immature Granulocyte Percent A 1.7 % (0-0.5); Lymphocytes Absolute Auto 1.57 K/mm3 (0.9-3.2); Mean Corpuscular HGB Conc 34.9 g/dl (32-36); Mean Corpuscular Hemoglobin 30.4 pg (26-34); Mean Corpuscular Volume 87.3 fl (80-100); Mean Platelet Volume 9.4 fl (7.4-10.4); Monocytes Absolute Auto 0.4 K/mm3 (0.1-0.6); Monocytes Percent Auto 5.9 % (2.6-8.5); Neutrophils Percent Auto 63.9 % (45.5-73.1); Platelet Count Result 346 k/mm3 (150-375); Red Blood Count 4.24 M/mm3 (4.2-5.4); White Blood Count 6.3 K/mm3 (4.5-10.0)
[2023-01-25 11:27] LABS: Cholesterol 205 mg/dL (0-200); HDL Direct 65 mg/dL; Triglycerides 326 mg/dL (<150)
[2023-01-25 11:32] LABS: Alanine Aminotransferase 22 U/L (6-35); Alkaline Phosphatase 140 U/L (38-126); Aspartate Amino Transferase 30 U/L (14-36); Bilirubin,Total 0.5 mg/dL (0.2-1.3)
[2023-01-25 11:37] LABS: LDL Cholesterol Direct 90 mg/dL
== END 2023-01-25 10:27 | disposition home or self-care (01) ==
LOC: ANHLAB 10:27
PROVIDERS: PCP Nurse Practitioner Family; Visit Provider Internal Medicine Cardiovascular Disease
DX: R53.83 Other fatigue (principal); E78.5 Hyperlipidemia, unspecified
CPT/HCPCS: 36415; 80061; 80076; 85025

== ENCOUNTER 2023-02-24 14:43 | Outpatient (CLI) | payer OTHER, SELFPAY ==
--- NOTE | 2023-02-24 14:47 | ECHO_ITS ---
Patient Info Name: Chrissy Kilgore Age: 52 years : 1970 Gender: Female Ht: 66 in Wt: 190 lbs BSA: 2.03 m2 HR: 68 bpm BP: 140 / 102 mmHg Heart Rhythm: Sinus Rhythm Technical Quality: Fair Exam Date: 02/24/2023 3:07 PM Exam Location: [facility] Pulmonary Patient Status: Outpatient Admit Date: 02/24/2023 Staff Ordering Physician: Leon Mora DO Attending Provider: Leon Mora DO Referring Physician: Morgan HARE; Exam Type: CA echo dop color flow w con Study Info Indications - takotsubo syndrome Complete two-dimensional, color flow and Doppler transthoracic echocardiogram is performed with contrast to opacify the left ventricle and to improve the deliniation of the left ventricle endocardial borders. Contrast/Agitated Saline Contrast/Ag. Saline: Definity Amount: 2.00 ml Administered By: Shae Dewitt Existing IV Access: No New IV Access: Dorsum of Hand and Left Summary 1. Left ventricular chamber dimension is normal. 2. Definity contrast administered improved wall motion interpretation. 3. Left ventricular systolic function is normal, estimated at 60-65%. 4. The left ventricular diastolic function is grade I diastolic dysfunction. 5. E/e' 8 is minimally elevated. 6. Left atrial chamber dimension is mildly enlarged. 7. There is trace tricuspid valve regurgitation. 8. No pulmonary hypertension, estimated pulmonary arterial systolic pressure is 38 mmHg. Left Ventricle E/e' 8 is minimally elevated. Definity contrast administered improved wall motion interpretation. Left ventricular chamber dimension is normal. Left ventricular systolic function is normal, estimated at 60-65%. The left ventricular diastolic function is grade I diastolic dysfunction. Right Ventricle Right ventricular chamber dimension is normal. Right ventricular systolic function is normal. Left Atria Left atrial chamber dimension is mildly enlarged. Right Atria Right atrial chamber dimension is normal. Aortic Valve The aortic valve is trileaflet. There is no aortic valve stenosis. There is no aortic valve regurgitation. Pulmonic Valve There is no pulmonic regurgitation. Mitral Valve There is no mitral valve stenosis. There is no mitral valve regurgitation. Tricuspid Valve There is trace tricuspid valve regurgitation. No pulmonary hypertension, estimated pulmonary arterial systolic pressure is 38 mmHg. Pericardium/Pleural There is no pericardial effusion. Inferior Vena Cava Normal inferior vena cava with >50% collapse upon inspiration consistent with normal right atrial pressure, 5 mmHg. Aorta The aortic root size at the sinus of Valsalva is normal. Left Ventricular Outflow Tract Name Value Normal LVOT 2D LVOT Diameter 2.00 cm LVOT Doppler LVOT Peak Gradient 6 mmHg LVOT Mean Gradient 3 mmHg LVOT VTI 21.31 cm LVOT VTI/AV VTI Ratio 0.75 LVOT Stroke Volume 66.59 ml LVOT CO 16.15 l/min LVOT CI 7.95 L/min/m2 Pulmonic Valve
[2023-02-24] MEDS: PERFLUTREN LIPID MICROSPHERES 1.5 ML VIAL DILUTED TO 10 ML TOTAL VOLUME IV PUSH (15:45)
== END 2023-02-24 14:44 | disposition home or self-care (01) ==
LOC: ANHCARD 14:43
PROVIDERS: PCP Nurse Practitioner Family; Visit Provider Internal Medicine Cardiovascular Disease
DX: I51.81 Takotsubo syndrome (principal)
CPT/HCPCS: C8929; Q9957

== ENCOUNTER 2023-03-01 13:35 | Outpatient (CLI) | payer OTHER, SELFPAY ==
--- NOTE | ~2023-03-01 | XR_ITS ---
EXAMINATION: XR abdomen/kub 1V DATE: 03/01/2023 13:53 INDICATION: Abdominal distention (gaseous). Abdominal pain. TECHNIQUE: A supine view of the abdomen on 2 radiographs was obtained. COMPARISON: CT abdomen and pelvis 08/25/2022 FINDINGS: There are no dilated loops of bowel. There is a small volume of stool in the colon. Surgica l clips in the right upper quadrant are likely from cholecystectomy. There is a phlebolith in left pe lvis. IMPRESSION: 1. Normal bowel gas pattern. Reviewed, dictated and finalized at location E.
== END 2023-03-01 13:36 | disposition home or self-care (01) ==
PROVIDERS: PCP Nurse Practitioner Family; Visit Provider Internal Medicine Gastroenterology
DX: R14.0 Abdominal distension (gaseous) (principal)
CPT/HCPCS: 74018

== ENCOUNTER 2023-03-11 19:46 | Inpatient (IN) | payer OTHER, SELFPAY ==
--- NOTE | ~2023-03-11 | NM_ITS ---
EXAM: NM gastric emptying study DATE: 03/15/2023 12:27 INDICATION: Emesis. Suspected delayed gastric emptying. TECHNIQUE: A gastric emptying study was performed using the methodology of Aroldo SAAB, et al. J Nucl Med 2007; 48:568-572. The patient was given a meal consisting of 2 scrambled eggs labeled with 1.1 m Ci Tc-99m sulfur colloid, 2 slices of toast, two packages of jam, and approximately 120 mL of water. Simultaneous anterior and posterior 1-min images of the abdomen were obtained with the patient supine at multiple time points over a total period of 4 hours. The geometric mean of anterior and posterior views was determined, and the percentage retention was calculated for each time point. COMPARISON: None. FINDINGS: Gastric retention of the radiotracer-labeled meal was 47%, 24%, and 2% at the 1-hour, 2-hour, and 4-h our time points, respectively. With this technique, apparent rapid gastric emptying is suggested by < 30% gastric retention at 1 hour. Delayed gastric emptying is defined by gastric retention of >90% at 1 hour, >60% retention at 2 hours, or >10% retention at 4 hours. IMPRESSION: 1. Normal gastric emptying. Reviewed, dictated and finalized at location A. IMPRESSION: 1. Normal gastric emptying.
--- NOTE | ~2023-03-11 | XR_ITS ---
XR_KUBGTUBINS_CR INDICATION: Evaluate NG tube position. TECHNIQUE: Limited KUB perform for evaluating NG tube . COMPARISON: No prior studies for comparison. FINDINGS: NG tube tip in the stomach. Visualized bowel gas pattern is unremarkable.There is residual contrast in nondilated bilateral renal collecting systems. There are cholecystectomy clips. IMPRESSION: 1: NG tube tip in the stomach. Reviewed, dictated and finalized at location A.
--- NOTE | ~2023-03-11 | CT_ITS ---
EXAMINATION: CT abdomen pelvis w con DATE: 03/11/2023 21:17 INDICATION: RUQ and epigastric pain TECHNIQUE: Computed tomography (CT) of the abdomen and pelvis was performed with 100 mL Omnipaque-350 intravenous contrast. Automated exposure control and iterative reconstruction technique were employe d. The dose-length product was 673.01 mGy-cm. COMPARISON: 08/25/2022. FINDINGS: Lower thorax: Unremarkable Liver: Normal. Biliary/Gallbladder: Gallbladder is absent. Increased intrahepatic and extrahepatic bile duct dilatio n. Common bile duct at the palak hepatis previously measured 13 mm and now measures 17 mm. No obstruc ting stone or mass detected. Pancreas: No mass or duct dilation. Spleen: Normal. Adrenals:No mass. Kidneys: No mass, stone, or hydronephrosis. GI tract: Mild antral wall edema. Short segment mild small bowel dilation in the upper left abdomen. Longer segment of small bowel dilation in the lower mid and right abdomen, with mild wall thickening, short segment wall hyperemia, fecalized contents, and interloop fluid. There are multiple transition points. Uniform bowel wall enhancement. Internal herniation or volvulus not detected. No large bowel dilation. Normal appendix. Mesentery/Peritoneum: No generalized ascites, mass, or free air. Retroperitoneum: No mass. No mesenteric arterial or venous abnormality detected. Pelvis: Pelvic organs are within normal limits. Soft Tissues: Soft tissues and body wall unremarkable. Bones: No acute osseous finding. IMPRESSION: Mild antral gastritis. Partial/early complete small bowel obstruction in the right lower abdomen, with associated findings t hat may indicate early wall ischemia. Separate short segment of small bowel dilation in the left abdomen may represent localized ileus vers us an additional site of partial/early obstruction. Multiple transition points are noted in both locations, although there is no discrete C-loop obstruct ion, internal hernia, or volvulus detected. Worsening intra and extrahepatic bile duct dilation, correlate with biliary labs. Reviewed, dictated and finalized at location K. IMPRESSION: Mild antral gastritis. Partial/early complete small bowel obstruction in the right lower abdomen, with associated findings that may indicate early wall ischemia. Separate short segment of small bowel dilation in the left abdomen may represen t localized ileus versus an additional site of partial/early obstruction. Multiple transition points are noted in both locations, although there is no di screte C-loop obstruction, internal hernia, or volvulus detected. Worsening intra and extrahepatic bile duct dilation, correlate with biliary lab s.
--- NOTE | ~2023-03-11 | XR_ITS ---
SMALL BOWEL SERIES ONLY INDICATION: Evaluate for small bowel obstruction TECHNIQUE: Serial plain films and fluoroscopic spot films are performed following NG tube administrat ion of water-soluble contrast COMPARISON: CT dated 03/11/2023 FINDINGS: Contrast was followed sequentially through the small bowel. The mucosal pattern is unremar kable. No evidence for stricture, polyp, diverticula or obstruction of flow of contrast. Transit ti me is normal. There are cholecystectomy clips. IMPRESSION: 1: Normal small bowel series. Reviewed, dictated and finalized at location A.
--- NOTE | ~2023-03-11 | US_ITS ---
US abdomen limited INDICATION: Dilated bile duct PROCEDURE: Realtime right upper abdominal ultrasound. COMPARISON: No prior studies for comparison. FINDINGS: There are dilated pancreatic duct measuring 4 mm. No pancreatic masses seen. Limited visual ization of the pancreatic tail. Liver echotexture is normal without focal mass or intrahepatic biliar y dilatation. There is normal directional flow in the portal vein. Gallbladder is surgically absent. Common bile duct measures 9 mm. No sonographic Morocho's sign. IMPRESSION: 1: Status post cholecystectomy with expected prominence of the common bile duct and pancreatic duct. Reviewed, dictated and finalized at location A.
[2023-03-11 19:48] VITALS: BP 133/104; PULSE 123; RESP 18; TEMP 36.2; O2SAT 100
--- NOTE | 2023-03-11 20:00 | PC.NURSE ---
pt. cannot urinate at this time.
[2023-03-11 20:12] LABS: Basophils Percent Auto 0.3 % (0.2-1.2); Eosinophils Absolute Auto 0.2 K/mm3 (0-0.3); Eosinophils Percent Auto 1.4 % (0-4.4); Hematocrit 45.1 % (37.0-47.0); Hemoglobin 15.4 g/dL (12.0-15.0); Immature Granulocyte Absolute 0.05 K/mm3 (0.00-0.031); Immature Granulocyte Percent A 0.4 % (0-0.5); Lymphocytes Absolute Auto 2.23 K/mm3 (0.9-3.2); Lymphocytes Percent Auto 16.4 % (18.3-44.2); Mean Corpuscular HGB Conc 34.1 g/dl (32-36); Mean Corpuscular Hemoglobin 29.5 pg (26-34); Mean Corpuscular Volume 86.4 fl (80-100); Mean Platelet Volume 9.1 fl (7.4-10.4); Monocytes Absolute Auto 0.5 K/mm3 (0.1-0.6); Neutrophils Absolute Auto 10.6 K/mm3 (1.3-6.7); Neutrophils Percent Auto 77.5 % (45.5-73.1); Platelet Count Result 377 k/mm3 (150-375); Red Blood Count 5.22 M/mm3 (4.2-5.4); Red Cell Distribution Width 11.7 % (11.5-14.5); White Blood Count 13.6 K/mm3 (4.5-10.0)
[2023-03-11 20:22] LABS: Alanine Aminotransferase 37 U/L (6-35); Albumin Level 4.9 g/dL (3.5-5.1); Alkaline Phosphatase 169 U/L (38-126); Anion Gap 12 mmol/L (8-16); Aspartate Amino Transferase 45 U/L (14-36); Bilirubin,Total 0.7 mg/dL (0.2-1.3); Blood Urea Nitrogen 14 mg/dL (7-17); Calcium 10.5 mg/dL (8.4-10.2); Carbon Dioxide 25 mmol/L (22-30); Chloride 104 mmol/L (98-107); Estimated CRCL calculation 80 ml/min; Estimated Glomerular Filt Rate > 60; Glucose 112 mg/dL (65-110); Lipase 58 U/L (23-300); Potassium 4.2 mmol/L (3.4-5.0); Sodium 141 mmol/L (137-145)
--- NOTE | 2023-03-11 20:43 | ECG_ITS ---
Measurements Intervals [place] Rate: 92 P: 19 NM: 157 QRS: -38 QRSD: 90 T: 101 QT: 355 QTc: 439 Interpretive Statements SINUS RHYTHM LEFT ANTERIOR FASCICULAR BLOCK POOR R WAVE PROGRESSION, ANTERIOR LEADS MINIMAL Q WAVES- HIGH LATERAL LEADS ST-T WAVE ABNORMALITY IN HIGH LATERAL LEADS- CONSIDER ISCHEMIA ABNORMAL ECG COMPARED TO ECG 03/16/2022 13:56:09 NO SIGNIFICANT CHANGES Electronically Signed On 03-12-2023 7:10:43 CDT by Leon Mora D.O.
--- NOTE | 2023-03-11 20:44 | ED.ABDPAIN ---
HPI - Abdominal Pain General Chief Complaint: Abdominal Pain Stated Complaint: Right sided abd pain Time Seen by Provider: 03/11/23 20:02 History of Present Illness HPI narrative: 52-year-old female with a history of LEX, hyperlipidemia, asthma, choledocholithiasis x2, sphincterotomy x2, cholecystectomy, appendectomy, bowel resection secondary to obstruction reports for evaluation for right upper quadrant abdominal pain x2 weeks, worsening over the past day. Patient states she has been followed with Dr. Arce for abdominal pain, she saw him on 03/01. Since then, her pain is increasingly gotten worse and she said she cannot take it today, therefore came to the ED. She was reporting multiple episodes of emesis today with nausea. Patient states she has not been able to eat much today other than half a taco which she quickly regurgitated. last bowel movement yesterday. She denies chest pain or shortness of breath, fever, back pain, urinary complaints, melena or hematochezia, hematemesis or coffee-ground emesis. She has not taken anything for pain. States she has been taking her medications as prescribed including her Protonix 40 mg today. States this pain does not feel like heartburn. Related Data Home Medications Medication Instructions Recorded Confirmed cetirizine 10 mg tablet (Zyrtec) 10 mg PO DAILY 07/14/21 03/01/23 montelukast 10 mg tablet 10 mg PO HS 07/14/21 03/01/23 (Singulair) pantoprazole 40 mg tablet,delayed 40 mg PO QAM 07/14/21 03/01/23 release rosuvastatin 5 mg tablet 5 mg PO DAILY 07/14/21 03/01/23 albuterol sulfate 2.5 mg/3 mL 2.5 mg inhalation PRN PRN 10/03/21 03/01/23 (0.083 %) solution for nebulization Shortness Of Breath Or Wheezing albuterol sulfate 90 mcg/actuation 2 inh inhalation Q6H PRN Shortness 09/10/22 03/01/23 aerosol inhaler Of Breath Or Wheezing levalbuterol HCl 1.25 mg/3 mL 0.63 mg inhalation Q6HRT PRN 09/10/22 03/01/23 solution for nebulization Shortness Of Breath Or Wheezing lorazepam 0.5 mg tablet 0.5 mg PO HS 09/10/22 03/01/23 solifenacin 10 mg tablet 10 mg PO DAILY 09/10/22 03/01/23 docusate sodium 100 mg capsule mg PO 01/16/23 03/01/23 Allergies Allergy/AdvReac Type Severity Reaction Status Date / Time Penicillins Allergy Severe Hives Verified 03/11/23 20:05 adhesive tape Allergy Intermediate Blister Verified 03/11/23 20:05 amlodipine Allergy Intermediate Hives Verified 03/11/23 20:05 Sulfa (Sulfonamide Allergy Intermediate Hives Verified 03/11/23 20:05 Antibiotics) tamoxifen Allergy Intermediate Hives Verified 03/11/23 20:05 Review of Systems Review of Systems: CONSTITUTIONAL: Denies fever, chills EYES: Denies visual changes, redness, or discharge. ENT: Denies rhinorrhea, congestion, sore throat, or otalgia. CARDIOVASCULAR: Denies chest pain, palpitations, or edema. RESPIRATORY: Denies cough or dyspnea. GASTROINTESTINAL: Denies abdominal pain, nausea, vomiting, or diarrhea. GENITOURINARY: Denies dysuria or hematuria. SKIN: Denies rash or itching. MUSCULOSKELETAL: Denies back pain, joint pain, or myalgia. NEUROLOGIC: Denies headache, numbness, dizziness, or weakness. PSYCHIATRIC: Denies anxiety or depression. FOR[facility]LY [facility], [facility] Past Medical History Medical History Acute sinusitis Anxiety Asthma Bradycardia Cervical radiculitis Cervicalgia Chills COVID-19 COVID-19 Depression Encounter to establish care Fatigue GERD (gastroesophageal reflux disease) Hx of migraines Hyperlipidemia Hypertension Low back pain radiating to right leg Metabolic acidosis (normal spontaneous vaginal delivery) x2 LEX (obstructive sleep apnea) Pneumonia Pseudoangiomatous stromal hyperplasia of breast 2013 Urinary incontinence Surgical History Surgical History H/O breast biopsy H/O oophorectomy History of bowel resection small intestine Hx of appendectomy S/P laparoscopic cholec
[2023-03-11] MEDS: ONDANSETRON INJ 4 MG/2 ML VIAL IV PUSH ×2 (20:57→23:34)
[2023-03-11] MEDS: SODIUM CHLORIDE 0.9% IV 1,000 ML 999 ML IV CONT (20:58)
[2023-03-11] MEDS: MORPHINE SULFATE (*CRX) 4 MG/ML INJ IV PUSH (20:58)
[2023-03-11 21:30] VITALS: BP 155/96; PULSE 85; RESP 14; O2SAT 94
[2023-03-11 22:07] LABS: Troponin I < 0.012 ng/mL (0.000-0.034)
[2023-03-11 22:44] LABS: Appearance Urine Clear (Clear); Bacteria Urine Rare /hpf; Bilirubin Urine Negative (Negative); Blood Urine Negative (Negative); Color Urine Yellow (Yellow); Glucose Urine UA Negative (Negative); Ketones Urine Negative (Negative); Leukocyte Esterase Ur Negative LEU/UL (Negative); Need Manual Microscopic Reviewed; Nitrate Urine Negative (Negative); Non Pathogenic Casts 0-2; Protein Urine 1+ mg/dL (Negative); Squamous Epithelial Cell Urine Few /hpf (Few); Urobilinogen Urine 0.2 mg/dL (<2.0); WBC Urine 21-50 /hpf; pH Urine 6.5 (5.0-9.0)
[2023-03-11 22:45] LABS: Lactic Acid Reflex 1.3 mmol/L (0.7-2.0)
[2023-03-11 22:54] LABS: Add Urine Microscopic? YES; Specific Grav Ur >= 1.099 (1.001-1.035)
[2023-03-11 23:00] VITALS: BP 144/102; PULSE 93; RESP 22; O2SAT 97
[2023-03-11] MEDS: HYDROmorphone HCL INJ (*CRX) 1 MG/ML SYR 0.5 MG IV PUSH (23:34)
[2023-03-12] VITALS (15 sets, daily range): BP systolic 108–145; BP diastolic 72–101; PULSE 69–98; RESP 13–20; TEMP 36.1–36.6; O2SAT 92–100; BMI 31.1
[2023-03-12] MEDS: AZTREONAM 1 GM in SODIUM CHLORIDE 0.9% IV 50 ML 100 ML IVPB ×4 (00:32→20:37)
[2023-03-12] MEDS: PANTOPRAZOLE SODIUM IV 40 MG VIAL IV PUSH ×2 (01:53→09:19)
[2023-03-12] MEDS: SODIUM CHLORIDE 0.9% IV 1,000 ML 999 ML IV CONT (01:56)
[2023-03-12] MEDS: metroNIDAZOLE 500 MG/ISO 100ML 500 MG/100 ML BAG 100 MG IVPB ×3 (02:01→16:55)
[2023-03-12] MEDS: SODIUM CHLORIDE 0.9% IV 1,000 ML 150 ML IV CONT ×3 (02:02→20:37)
[2023-03-12] MEDS: ONDANSETRON INJ 4 MG/2 ML VIAL IV PUSH ×5 (04:59→21:54)
[2023-03-12] MEDS: HYDROmorphone HCL INJ (*CRX) 1 MG/ML SYR 0.5 MG IV PUSH ×5 (04:59→21:54)
--- NOTE | 2023-03-12 06:38 | PM.IMHP ---
H&P: HPI History of Present Illness Date/Time: 03/12/23 05:00 Chief Complaint: Abdominal pain and vomiting Narrative: 52-year-old female with a past medical history of asthma, hypertension, prior cholecystectomy, biliary duct stenosis and sludge requiring ERCP and prior bowel resection due to adhesions and bowel obstruction who presented to the ER with sudden acute worsening of her abdominal pain. She reports that for the last month or so she has been having intermittent right upper quadrant abdominal pain similar to when she had prior sludge/stones and narrowing of her bile duct. She had an ERCP in 12/2021 that demonstrated papillary stenosis. She had repeat ERCP in September 2022 due to dilated common bile duct and biliary sludge with sphincterotomy. Both procedures were performed by Dr. Arce. Patient reported that she followed up with Dr. Andrew regarding her right upper quadrant symptoms that seem worse with eating on February 19. They have been trying to get the patient approved for an outpatient CT scan. She had also been having some intermittent lower right abdominal pain a come and go. It was accompanied by bouts of constipation. She reports that for the most part she can go weaker more without having a bowel movement. She has to take stool softeners daily. She is also at at use intermittent laxatives but reports that she does not like the side effects including bloating and cramping as well as pain. She has not had a bowel movement in at least 5 days. She also has intermittent bowel movements were she has incontinent stools that are incomplete and occur multiple times. Suspect she is having overflow incontinence. She denies any hematochezia or melena. She has not had any recent fevers or chills. She reports that the pain was manageable until around 13:00 on the . She then had just tried to eat some toast to see if it would settle her stomach. After she ate the toe she began having vomiting. She was unable to stop vomiting. After eating her be pain became quite severe. She tried conservative measures until around 19:00 when she finally decided that she needed to come into the ER. She is still feeling nauseated at this time after an NG tube was placed in the ER. NG tube was placed due to possible bowel obstruction on CT. Also CT demonstrated increased biliary duct dilatation but no obvious stones. Her LFTs were elevated suggesting biliary obstruction. She reports that despite having intermittent decreased appetite over the last couple of months she has still been feeling more bloated. She has gained about 11 lb. She has been feeling fatigued. Part of this could be due to her obstructive sleep apnea. She uses her CPAP at the beginning of the night but then has difficulty falling back asleep after few hours. She does have a history of broken heart syndrome and had a EF as low as 20% in February 2022. But her EF has rebounded back up to 60-65% with her most recent echo this month. She reports that since her cardiomyopathy she has changed her diet and is eating healthy. She is not going out to fast food. She has not been having any swelling despite her reports of increased weight gain. She denies any hair loss. Review of Systems Review of Systems: 12 systems were reviewed with pertinent positives and negatives per HPI. Except as documented in the HPI, all other systems were reviewed and are negative. [facility] Past Medical History Medical History (Updated 03/12/23 @ 07:05 by Maida Cr, ) Anxiety Asthma Bradycardia Cervical radiculitis COVID-19 Depression GERD (gastroesophageal reflux disease) Hx of migraines Hyperlipidemia Hypertension Low back pain radiating to right leg (normal spontaneous vaginal delivery) x2 LEX (obstructive sleep apnea) With CPAP Pseudoangiomatous stromal hyperplasia of breast 2012 Takotsubo cardiomyopathy (02/2022) Urinary incontinence Surgical History Surgical History (Update
[2023-03-12 07:37] LABS: Hematocrit 37.5 % (37.0-47.0); Hemoglobin 12.4 g/dL (12.0-15.0); Mean Corpuscular HGB Conc 33.1 g/dl (32-36); Mean Corpuscular Hemoglobin 29.8 pg (26-34); Mean Corpuscular Volume 90.1 fl (80-100); Platelet Count Result 266 k/mm3 (150-375); Red Blood Count 4.16 M/mm3 (4.2-5.4); Red Cell Distribution Width 11.8 % (11.5-14.5); White Blood Count 9.1 K/mm3 (4.5-10.0)
[2023-03-12 07:56] LABS: Alanine Aminotransferase 30 U/L (6-35); Alkaline Phosphatase 121 U/L (38-126); Anion Gap 8 mmol/L (8-16); Aspartate Amino Transferase 34 U/L (14-36); Bilirubin,Total 0.8 mg/dL (0.2-1.3); Blood Urea Nitrogen 13 mg/dL (7-17); Calcium 8.5 mg/dL (8.4-10.2); Carbon Dioxide 24 mmol/L (22-30); Chloride 108 mmol/L (98-107); Estimated CRCL calculation 104 ml/min; Estimated Glomerular Filt Rate > 60; Glucose 120 mg/dL (65-110); Potassium 4.3 mmol/L (3.4-5.0); Sodium 140 mmol/L (137-145)
[2023-03-12 08:17] LABS: Thyroid Stimulating Hormone Reflex 0.985 uIU/mL (0.465-4.68)
--- NOTE | 2023-03-12 09:01 | WPDGICN ---
Assessment and Plan Assessment and plan (1) SBO (small bowel obstruction): Code(s): K56.609 - Unspecified intestinal obstruction, unspecified as to partial versus complete obstruction Status: Acute Assessment and Plan: the patient suddenly began having some nausea and vomiting yesterday afternoon. She brought up mostly bilious material. The same bili is dark fluid is coming out of her NG tube at the present time. Despite the vomiting and the findings of small-bowel obstruction, she did not have any mid or lower abdominal pain. The patient had removal of a large ovarian cyst several years ago and a year later developed small-bowel obstruction. 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 (2) Abdominal bloating: Code(s): R14.0 - Abdominal distension (gaseous) Status: Acute Assessment and Plan: This has been a chronic problem which we have discussed in the office. She had stated that her bloating and distention began about 6 weeks ago. We discussed aerophagia. She does not drink carbonated beverages or use a straw. She has sleep apnea but does not use the CPAP. A KUB done 2 weeks ago did not show any increased bowel gas or stool. Because she often feels constipated she will take a laxative or stool softener. Her stools however have generally been soft or loose. (3) Dilated bile duct: Code(s): K83.8 - Other specified diseases of biliary tract Status: Acute Assessment and Plan: She has had ERCP with sphincterotomy twice. The last sphincterotomy in September of this year was a generous 1. Although her bile duct has increased in diameter, it is unlikely that she has biliary obstruction or choledocholithiasis. Her enzymes were elevated yesterday but have improved already overnight. I will consider MRCP this admission. (4) Transaminitis: Code(s): R74.01 - Elevation of levels of liver transaminase levels Status: Acute Assessment and Plan: Her transaminases have been fluctuating for the past a couple of years. It was thought at 1st to be due to choledocholithiasis. They were elevated last night and better today. She is also at risk for fatty liver being overweight and having hyperlipidemia. (5) Weight gain: Code(s): R63.5 - Abnormal weight gain Status: Acute Assessment and Plan: Despite her gastrointestinal issues, she has gained 14 lb this year already in 25 lb in the past 12 months. Plan NG suction for now. Surgery consultation pending. MRCP Tuesday to investigate dilated bile duct serology to rule out inflammatory bowel disease GI Consult Note Consult date/time: 03/12/23 09:01 HPI: Chrissy Kilgore is a 52 year old female Who presents emergency room last night with persistent right upper quadrant abdominal pain and vomiting which began yesterday. She was found on CT imaging to have dilated loops of bowel suggestive of small-bowel obstruction distally. She states that she continues to have pain which is chronic in the right upper quadrant and epigastric area. I saw her in the office just 2 weeks ago regarding the symptoms. She had also complained of bloating and change in bowel habits. at a KUB done that day was unremarkable in terms of her bowel gas pattern. Now it is significantly different with dilated loops of small bowel. Surprisingly however her symptoms in terms of pain pattern have not changed other than the fact that she now has vomiting. She has a history of choledocholithiasis and had his sphincterotomy with ERCP and removal of stones about a year ago. The sphincterotomy had to be small because the ampulla was tucked
--- NOTE | 2023-03-12 12:46 | PM.IMPN ---
Progress Note: A&P Assessment and Plan (1) SBO (small bowel obstruction): Code(s): K56.609 - Unspecified intestinal obstruction, unspecified as to partial versus complete obstruction Status: Acute Assessment and Plan: Abdominal pain appears to be multifactorial due to small-bowel obstruction and some likely choledocholithiasis or biliary sludge. Both General surgery and Gastroenterology a consulted. NG tube placed patient has had about 200 mL of bilious appearing material out of her NG. Antiemetics and pain medication as needed Pain medications have been ordered as well. CT does suggest Partial /early complete SBO, possible early wall ischemia and worsening intra and extrahepatic bile duct dilation Will continue with bowel rest and await further recommendations from General surgery. (2) Dilated bile duct: Code(s): K83.8 - Other specified diseases of biliary tract Status: Acute Assessment and Plan: Patient has had cholecystectomy in the past and had recent ERCP in September of 2022 due to known dilated common bile duct and biliary sludge with sphincterectomy. She follows Dr. Arce. CT does suggest worsening intra and extrahepatic bile duct dilation From liver enzymes elevated on arrival but improved overnight. GI considering MRCP this admission. GI not concern for choledocholithiasis at this time. (3) Transaminitis: Code(s): R74.01 - Elevation of levels of liver transaminase levels Status: Resolved Assessment and Plan: Elevated on admission but have since resolved. (4) Chronic constipation: Code(s): K59.09 - Other constipation Status: Chronic Assessment and Plan: Sees Dr. Arce as an outpatient. (5) LEX (obstructive sleep apnea): Code(s): G47.33 - Obstructive sleep apnea (adult) (pediatric) Status: Chronic Assessment and Plan: Untreated At home. Patient does have obstructive sleep apnea but CPAP cannot be ordered given presence of NG tube in active vomiting. Subjective Date/time seen: 03/12/23 12:46 Interval history: Patient states that abdominal pain has improved since admission. She still has some discomfort but not to the degree as what she was feeling prior to arrival. She does have some nausea and has been receiving Zofran. No vomiting all during admission. Or she has not had any bowel movements or passed gas. Her last bowel movement was 4 days ago. She has IBS with intermittent constipation and diarrhea. She has history of multiple abdominal surgeries including appendectomy, small-bowel resection, and cholecystectomy. Review of Systems Review of Systems: All systems reviewed & are unremarkable except as noted in HPI and below Exam Narrative: GENERAL: Comfortable, no acute distress HENMT: moist mucous membranes, NG tube in place EYES: EOM intact b/l NECK: no lymphadenopathy RESPIRATORY: clear to auscultation CARDIO: RRR GI: mild distension, soft, epigastric and right upper quadrant tenderness, absent bowel sounds SKIN: no rashes EXTREMITIES: no edema, redness or tenderness Objective Data Vital Signs Vital Signs: Vital Signs - 24 hr 03/11/23 19:48 03/11/23 21:30 03/11/23 23:00 Temperature 97.2 F L Pulse Rate 123 H 85 93 Respiratory Rate 18 14 22 H Blood Pressure 133/104 H 155/96 H 144/102 H Pulse Oximetry 100 94 97 Oxygen Delivery Room Air Oxygen Flow Rate 03/12/23 00:00 03/12/23 04:00 03/12/23 00:07 Temperature Pulse Rate 98 71 71 Respiratory Rate 13 13 Blood Pressure 144/101 H Pulse Oximetry 92 92 Oxygen Delivery Nasal Cannula Oxygen Flow Rate 2 03/12/23 00:07 03/12/23 06:00 03/12/23 09:16 Temperature 97.2 F L 97.9 F Pulse Rate 86 78 74 Respiratory Rate 20 20 16 Blood Pressure 136/92 H 123/72 123/73 Pulse Oximetry 99 99 100 Oxygen Delivery Oxygen Flow Rate 03/12/23 08:00 03/12/23 09:30 Temperature Pulse Rate 6
--- NOTE | 2023-03-12 15:30 | WPDCN ---
Assessment and Plan Assessment and plan (1) SBO (small bowel obstruction): Code(s): K56.609 - Unspecified intestinal obstruction, unspecified as to partial versus complete obstruction Status: Acute Assessment and Plan: Patient has multiple risk factors for abdominal he is in possible small-bowel obstructions due to the adhesions. There is no evidence clinically or by lab that she has ischemic bowel. Nasogastric tube is in place decompressing her GI tract. Output is mildly bilious. Continue NG tube decompression for now. Continue NPO and IV fluid hydration. Dr. Arce from GI has seen her and plans for MRCP during this admission. Continue IV antibiotics for now but and white blood cell has normalized. We will keep the IV antibiotics going until we know a small bowel obstruction has resolved. We will go ahead and get a water-soluble small bowel follow-through study. Hopefully the contrast were given to her colon and then be therapeutic to clean out the majority of the stool in her colon which is copious. Presently there is no evidence of acute surgical abdomen. Will continue to follow. HPI Data of Consult Date/Time: 03/12/23 15:30 Requesting Physician: Maida Cr DO Primary Care Provider: Ramonita Crawford NP Consult Narrative Reason for consult: Abdominal pain and small-bowel obstruction Narrative: Chrissy Kilgore is a 52 year old female who was admitted to the hospital yesterday with episodes of nausea vomiting and worsening lower abdominal pain. She states she has not had a bowel movement for nearly a week. She is followed by Dr. Arce in the GI clinic. Performed to ERCPs and sphincterotomies on her in the past but she has continued to have some intermittent right upper quadrant abdominal pain. He has seen her and plans on performing a MRCP during this admission. Yesterday in the emergency room white blood count slightly elevated at 14,000 thousand. White blood cell count is now normal. She remains afebrile. It is better today than yesterday but is not passing much gas. CT scan abdomen pelvis yesterday showed evidence of possible early partial small-bowel obstruction. Nasogastric tube was placed and initially about 200cc of bilious fluid was aspirated. Today she feels less bloated is still having some diffuse mild lower abdominal pain. Nausea is also continuing and she has been getting Zofran. Lactic acid level at the time of admission was normal. Significant prior surgical history includes a prior laparoscopic cholecystectomy. She has also had a prior small bowel resection due to strangulated small bowel from adhesions after supervisor metal placing surgery. No evidence of incisional hernias seen on CT scan. Review of Systems Review of Systems: The remainder of the review of systems to include constitutional, HEENT, cardiovascular, respiratory, GI, , integumentary, musculoskeletal, endocrine, immunologic, hematologic, psychiatric, and neurologic are all negative except for which is mentioned above in the HPI. [facility] Past Medical History Medical History Anxiety Asthma Bradycardia Cervical radiculitis COVID-19 Depression GERD (gastroesophageal reflux disease) Hx of migraines Hyperlipidemia Hypertension Low back pain radiating to right leg (normal spontaneous vaginal delivery) x2 LEX (obstructive sleep apnea) With CPAP Pseudoangiomatous stromal hyperplasia of breast 2012 Takotsubo cardiomyopathy (02/2022) Urinary incontinence Surgical History Surgical History H/O breast biopsy H/O oophorectomy 1989' History of bowel resection (~2007) small intestine Hx of appendectomy S/P laparoscopic cholecystectomy Status post laser cataract surgery of right eye X2 Family History Family History Mother Breast cancer Father Throat cance
--- NOTE | 2023-03-12 16:42 | PC.NURSE ---
Spoke with general surgery exchange to pass message to Dr. Shah that radiologist will not be here until tomorrow at 0700 to do small bowel follow xray. Left name and call back number
[2023-03-12] MEDS: ACETAMINOPHEN 650 MG SUPPOSITORY RECTAL (20:37)
[2023-03-13] VITALS (11 sets, daily range): BP systolic 146–168; BP diastolic 85–99; PULSE 71–89; RESP 16–20; TEMP 36.4–36.8; O2SAT 97–100
[2023-03-13] MEDS: metroNIDAZOLE 500 MG/ISO 100ML 500 MG/100 ML BAG 100 MG IVPB ×2 (00:09→08:15)
[2023-03-13] MEDS: HYDROmorphone HCL INJ (*CRX) 1 MG/ML SYR 0.5 MG IV PUSH ×5 (03:09→22:27)
[2023-03-13] MEDS: ONDANSETRON INJ 4 MG/2 ML VIAL IV PUSH ×5 (03:10→22:28)
[2023-03-13] MEDS: SODIUM CHLORIDE 0.9% IV 1,000 ML 150 ML IV CONT (05:14)
[2023-03-13 05:58] LABS: Hematocrit 34.3 % (37.0-47.0); Hemoglobin 11.4 g/dL (12.0-15.0); Mean Corpuscular HGB Conc 33.2 g/dl (32-36); Mean Corpuscular Hemoglobin 29.8 pg (26-34); Mean Corpuscular Volume 89.8 fl (80-100); Platelet Count Result 217 k/mm3 (150-375); Red Blood Count 3.82 M/mm3 (4.2-5.4); Red Cell Distribution Width 11.6 % (11.5-14.5); White Blood Count 6.4 K/mm3 (4.5-10.0)
[2023-03-13 06:11] LABS: Alanine Aminotransferase 24 U/L (6-35); Albumin Level 3.6 g/dL (3.5-5.1); Alkaline Phosphatase 120 U/L (38-126); Anion Gap 8 mmol/L (8-16); Aspartate Amino Transferase 28 U/L (14-36); Bilirubin,Total 0.6 mg/dL (0.2-1.3); Blood Urea Nitrogen 8 mg/dL (7-17); Calcium 8.4 mg/dL (8.4-10.2); Carbon Dioxide 23 mmol/L (22-30); Chloride 107 mmol/L (98-107); Estimated CRCL calculation 122 ml/min; Estimated Glomerular Filt Rate > 60; Glucose 94 mg/dL (65-110); Potassium 3.4 mmol/L (3.4-5.0); Sodium 138 mmol/L (137-145)
[2023-03-13] MEDS: AZTREONAM 1 GM in SODIUM CHLORIDE 0.9% IV 50 ML 100 ML IVPB (06:28)
[2023-03-13] MEDS: PANTOPRAZOLE SODIUM IV 40 MG VIAL IV PUSH (08:15)
[2023-03-13] MEDS: KETOROLAC 30 MG/ML VIAL (*BKC) IV PUSH (08:34)
[2023-03-13] MEDS: POTASSIUM CHLORIDE INJ 40 MEQ in SODIUM CHLORIDE 0.9% IV 500 ML 130 MEQ IVPB (09:49)
--- NOTE | 2023-03-13 11:19 | PM.IMPN ---
Progress Note: A&P Assessment and Plan (1) SBO (small bowel obstruction): Code(s): K56.609 - Unspecified intestinal obstruction, unspecified as to partial versus complete obstruction Status: Acute Assessment and Plan: Abdominal pain appears to be multifactorial due to small-bowel obstruction and some likely choledocholithiasis or biliary sludge. Both General surgery and Gastroenterology a consulted. NG tube placed patient has of bilious appearing material coming out of her NG. Antiemetics and pain medication as needed Pain medications have been ordered as well. CT does suggest Partial /early complete SBO, possible early wall ischemia and worsening intra and extrahepatic bile duct dilation small-bowel follow-through ordered (2) Dilated bile duct: Code(s): K83.8 - Other specified diseases of biliary tract Status: Acute Assessment and Plan: Patient has had cholecystectomy in the past and had recent ERCP in September of 2022 due to known dilated common bile duct and biliary sludge with sphincterectomy. She follows Dr. Arce. CT does suggest worsening intra and extrahepatic bile duct dilation From liver enzymes elevated on arrival but improved overnight. GI considering MRCP this admission. GI not concern for choledocholithiasis at this time. (3) Transaminitis: Code(s): R74.01 - Elevation of levels of liver transaminase levels Status: Resolved Assessment and Plan: Elevated on admission but have since resolved. (4) Chronic constipation: Code(s): K59.09 - Other constipation Status: Chronic Assessment and Plan: Sees Dr. Arce as an outpatient. (5) LEX (obstructive sleep apnea): Code(s): G47.33 - Obstructive sleep apnea (adult) (pediatric) Status: Chronic Assessment and Plan: Untreated At home. Patient does have obstructive sleep apnea but CPAP cannot be ordered given presence of NG tube in active vomiting. Subjective Date/time seen: 03/13/23 11:19 Interval history: Patient's symptoms seem to be worse today. She continues to have abdominal pain associated with worsening nausea. She has developed a headache that did get better with some Toradol. General surgery recommending small-bowel follow-through. Will await further instruction from General surgery at this time. Exam Narrative: GENERAL: Comfortable, no acute distress HENMT: moist mucous membranes, NG tube in place EYES: EOM intact b/l NECK: no lymphadenopathy RESPIRATORY: clear to auscultation CARDIO: RRR GI: mild distension, soft, epigastric and right upper quadrant tenderness, absent bowel sounds SKIN: no rashes EXTREMITIES: no edema, redness or tenderness Objective Data Vital Signs Vital Signs: Vital Signs - 24 hr 03/12/23 12:00 03/12/23 14:01 03/12/23 14:25 Temperature Pulse Rate 69 Respiratory Rate Blood Pressure Pulse Oximetry 98 94 Oxygen Delivery Room Air Room Air 03/12/23 14:00 03/12/23 17:03 03/12/23 16:00 Temperature 97.6 F 97.7 F Pulse Rate 86 94 74 Respiratory Rate 17 16 Blood Pressure 108/81 137/83 Pulse Oximetry 95 95 Oxygen Delivery 03/12/23 20:00 03/12/23 20:00 03/12/23 22:54 Temperature 97.0 F L Pulse Rate 88 88 86 Respiratory Rate 16 20 Blood Pressure 145/80 H Pulse Oximetry 95 98 Oxygen Delivery Room Air 03/13/23 00:00 03/13/23 04:00 03/13/23 06:00 Temperature 97.7 F Pulse Rate 89 76 74 Respiratory Rate 20 Blood Pressure 168/89 H Pulse Oximetry 98 Oxygen Delivery 03/13/23 08:25 03/13/23 08:29 Temperature 97.5 F L Pulse Rate 76 Respiratory Rate 16 Blood Pressure 146/85 H Pulse Oximetry 97 99 Oxygen Delivery Room Air Intake/Output Intake/Output: Intake & Output 03/10/23 03/11/23 03/12/23 03/13/23 23:59 23:59 23:59 23:59 Intake Total 1000 2400 1800 Output Total 1400 500 Balance 1000 1000 1300 Meds/Results Medicati
--- NOTE | 2023-03-13 12:06 | WPDGIPROGNO ---
Progress Note: A&P Assessment and Plan (1) SBO (small bowel obstruction): Code(s): K56.609 - Unspecified intestinal obstruction, unspecified as to partial versus complete obstruction Status: Acute Assessment and Plan: the patient suddenly began having some nausea and vomiting yesterday afternoon. She brought up mostly bilious material. The same bili is dark fluid is coming out of her NG tube at the present time. Despite the vomiting and the findings of small-bowel obstruction, she did not have any mid or lower abdominal pain. The patient had removal of a large ovarian cyst several years ago and a year later developed small-bowel obstruction. 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 03/13/2023 small-bowel series just completed and is normal. I reviewed it myself and see no transition zone. There is contrast in the colon. (2) Abdominal bloating: Code(s): R14.0 - Abdominal distension (gaseous) Status: Acute Assessment and Plan: This has been a chronic problem which we have discussed in the office. She had stated that her bloating and distention began about 6 weeks ago. We discussed aerophagia. She does not drink carbonated beverages or use a straw. She has sleep apnea but does not use the CPAP. A KUB done 2 weeks ago did not show any increased bowel gas or stool. Because she often feels constipated she will take a laxative or stool softener. Her stools however have generally been soft or loose. (3) Dilated bile duct: Code(s): K83.8 - Other specified diseases of biliary tract Status: Acute Assessment and Plan: She has had ERCP with sphincterotomy twice. The last sphincterotomy in September of this year was a generous 1. Although her bile duct has increased in diameter, it is unlikely that she has biliary obstruction or choledocholithiasis. Her enzymes were elevated yesterday but have improved already overnight. I will consider MRCP this admission. Liver function studies have returned to normal. I do not think MRCP is indicated at this point (4) Transaminitis: Code(s): R74.01 - Elevation of levels of liver transaminase levels Status: Resolved Assessment and Plan: Her transaminases have been fluctuating for the past a couple of years. It was thought at 1st to be due to choledocholithiasis. They were elevated last night and better today. She is also at risk for fatty liver being overweight and having hyperlipidemia. 03/13/2023 all are back to normal (5) Weight gain: Code(s): R63.5 - Abnormal weight gain Status: Acute Assessment and Plan: Despite her gastrointestinal issues, she has gained 14 lb this year already in 25 lb in the past 12 months. Plan NG suction for now. Surgery consultation pending. MRCP Tuesday to investigate dilated bile duct serology to rule out inflammatory bowel disease 03/13/2023 she has been seen by surgery who ordered small bowel series. Small bowel series is normal. Will remove NG tube and try clear liquids. Ultrasound of right upper quadrant tomorrow Subjective Date/time seen: HPI: Chrissy Kilgore is a 52 year old female ? Who presents emergency room last night with persistent right upper quadrant abdominal pain and vomiting which began yesterday.? She was found on CT imaging to have dilated loops of bowel suggestive of small-bowel obstruction distally. ? She states that she continues to have pain which is chronic in the right upper quadrant and epigastric area.? I saw her in the office just 2 weeks ago regarding the symptoms.? She had also complained of bloating and change in bowel habits. ? a
--- NOTE | 2023-03-13 12:41 | PM.PNGS ---
Progress Note: A&P Assessment and Plan (1) SBO (small bowel obstruction): Code(s): K56.609 - Unspecified intestinal obstruction, unspecified as to partial versus complete obstruction Status: Acute Assessment and Plan: Partial small-bowel obstruction is not resolved. Could have been due to adhesions. Small bowel series today with water-soluble contrast shows no evidence of stricture or small-bowel obstruction and normal transit time of the contrast into the colon. She has now started having multiple bowel movements due to the contrast. We will go ahead and remove the NG tube today. Go ahead start her on clear liquids. Continue supportive care. Stop the IV antibiotics. Subjective Subjective Date/Time Seen: 03/13/23 12:41 Interval history: Patient doing better now. No abdominal pain. Did have some nausea this morning. Small-bowel series with Gastrografin showed normal transit time without evidence of stricture or small-bowel obstruction. Is now having bowel movements after the small-bowel series. Exam GI: Other: Abdomen is soft and nondistended. She is nontender. Good bowel sounds are noted. Abdomen is benign. Objective Data Vital Signs Vital Signs: Vital Signs - 24 hr 03/12/23 14:01 03/12/23 14:25 03/12/23 14:00 Temperature 36.4 C Pulse Rate 86 Respiratory Rate 17 Blood Pressure 108/81 Pulse Oximetry 98 94 95 Oxygen Delivery Room Air Room Air 03/12/23 17:03 03/12/23 16:00 03/12/23 20:00 Temperature 36.5 C Pulse Rate 94 74 88 Respiratory Rate 16 Blood Pressure 137/83 Pulse Oximetry 95 Oxygen Delivery 03/12/23 20:00 03/12/23 22:54 03/13/23 00:00 Temperature 36.1 C L Pulse Rate 88 86 89 Respiratory Rate 16 20 Blood Pressure 145/80 H Pulse Oximetry 95 98 Oxygen Delivery Room Air 03/13/23 04:00 03/13/23 06:00 03/13/23 08:25 Temperature 36.5 C 36.4 C L Pulse Rate 76 74 76 Respiratory Rate 20 16 Blood Pressure 168/89 H 146/85 H Pulse Oximetry 98 97 Oxygen Delivery 03/13/23 08:29 03/13/23 08:00 03/13/23 08:30 Temperature Pulse Rate 84 Respiratory Rate Blood Pressure Pulse Oximetry 99 Oxygen Delivery Room Air Room Air Intake/Output Intake/Output: Intake & Output 03/10/23 03/11/23 03/12/23 03/13/23 23:59 23:59 23:59 23:59 Intake Total 1000 2400 1800 Output Total 1400 500 Balance 1000 1000 1300 Meds/Results Medications: Active Medications Generic Name Dose Route Start Last Admin Trade Name Freq PRN Reason Stop Dose Admin Bisacodyl 10 mg 03/13/23 09:00 Bisacodyl 10 Mg Suppository RECTAL QAM GEETHA Hydromorphone HCl 0.5 mg 03/12/23 00:07 03/13/23 09:49 Hydromorphone Hcl Inj (*Crx) 1 Mg/Ml Syr IV PUSH 0.5 mg Q3H PRN Administration Pain Rated 7-10 Aztreonam 1 gm/ Sodium 50 mls @ 100 mls/hr 03/12/23 06:00 03/13/23 07:30 Chloride IVPB Infused Q8H GEETHA Infusion Metronidazole 500 mg in 100 mls @ 100 mls/hr 03/12/23 08:00 03/13/23 09:15 Flagyl 500 Mg/Iso Soln 100 Ml IVPB Infused Q8H GEETHA Infusion Dextrose/Lactated Ringer's 1,000 mls @ 70 mls/hr 03/13/23 07:30 Dextrose 5%/Lactated Ringers IV CONT .[id number] GEETHA Ketorolac Tromethamine 15 mg 03/13/23 08:17 Ketorolac 15 Mg/Ml Vial (*Bkc) IV PUSH Q6H PRN Headache Levalbuterol HCl 0.63 mg 03/12/23 06:52 Levalbuterol Neb 1.25 Mg/3 Ml INHALATION Q6HRT PRN Shortness Of Breath Or Wheezing Ondansetron HCl 4 mg 03/12/23 00:07 03/13/23 08:15 Ondansetron Inj 4 Mg/2 Ml Vial IV PUSH 4 mg Q4H PRN Administration Nausea Pantoprazole Sodium 40 mg 03/12/23 09:00 03/13/23 08:15 Pantoprazole Sodium Iv 40 Mg Vial IV PUSH 40 mg QAM GEETHA Administration Radiology Results: ITS Impressions Abdomen/Pelvis CT 03/11/23 21:19 IMPRESSION: Mild antral gastritis. Partial/early complete small bowel obstruction in the right lower abdomen, with ass
[2023-03-13] MEDS: DEXTROSE 5%/LACTATED RINGERS 1,000 ML 70 ML IV CONT (13:42)
[2023-03-13] MEDS: KETOROLAC 15 MG/ML VIAL (*BKC) IV PUSH (17:01)
[2023-03-13] MEDS: SACUBITRIL/VALSARTAN 24-26 MG TABLET 1 TAB PO (20:21)
[2023-03-13] MEDS: carvediloL 3.125 MG TABLET PO (20:21)
[2023-03-14] VITALS (11 sets, daily range): BP systolic 142–158; BP diastolic 78–96; PULSE 63–80; RESP 17–18; TEMP 36.7–37.2; O2SAT 98–100
[2023-03-14] MEDS: KETOROLAC 15 MG/ML VIAL (*BKC) IV PUSH ×2 (01:42→22:02)
[2023-03-14] MEDS: HYDROmorphone HCL INJ (*CRX) 1 MG/ML SYR 0.5 MG IV PUSH ×5 (02:53→20:24)
[2023-03-14] MEDS: ONDANSETRON INJ 4 MG/2 ML VIAL IV PUSH ×5 (02:54→20:24)
[2023-03-14] MEDS: DEXTROSE 5%/LACTATED RINGERS 1,000 ML 70 ML IV CONT ×2 (05:02→20:20)
[2023-03-14 06:11] LABS: Hematocrit 32.2 % (37.0-47.0); Hemoglobin 10.7 g/dL (12.0-15.0); Mean Corpuscular HGB Conc 33.2 g/dl (32-36); Mean Corpuscular Hemoglobin 29.3 pg (26-34); Mean Corpuscular Volume 88.2 fl (80-100); Mean Platelet Volume 8.8 fl (7.4-10.4); Platelet Count Result 211 k/mm3 (150-375); Red Blood Count 3.65 M/mm3 (4.2-5.4); Red Cell Distribution Width 11.4 % (11.5-14.5); White Blood Count 5.7 K/mm3 (4.5-10.0)
[2023-03-14 06:23] LABS: Alanine Aminotransferase 21 U/L (6-35); Albumin Level 3.4 g/dL (3.5-5.1); Alkaline Phosphatase 101 U/L (38-126); Anion Gap 5 mmol/L (8-16); Aspartate Amino Transferase 25 U/L (14-36); Bilirubin,Total 0.5 mg/dL (0.2-1.3); Blood Urea Nitrogen 5 mg/dL (7-17); Calcium 8.6 mg/dL (8.4-10.2); Carbon Dioxide 29 mmol/L (22-30); Chloride 104 mmol/L (98-107); Estimated CRCL calculation 122 ml/min; Estimated Glomerular Filt Rate > 60; Glucose 98 mg/dL (65-110); Magnesium 1.8 mg/dL (1.6-2.3); Potassium 3.4 mmol/L (3.4-5.0); Sodium 138 mmol/L (137-145)
[2023-03-14] MEDS: SACUBITRIL/VALSARTAN 24-26 MG TABLET 1 TAB PO ×2 (08:38→20:20)
[2023-03-14] MEDS: PANTOPRAZOLE SODIUM IV 40 MG VIAL IV PUSH (08:38)
[2023-03-14] MEDS: carvediloL 3.125 MG TABLET PO ×2 (08:38→20:20)
--- NOTE | 2023-03-14 09:36 | PM.PNGS ---
Progress Note: A&P Assessment and Plan (1) SBO (small bowel obstruction): Code(s): K56.609 - Unspecified intestinal obstruction, unspecified as to partial versus complete obstruction Status: Acute Assessment and Plan: No evidence of small-bowel obstruction on small-bowel follow-through study. Nasogastric tube has been removed and she is started on clear liquids. Has been having some chronic nausea which has previously been managed by Dr. Arce. At this point I do not think she needs any surgery as there is no evidence of small-bowel obstruction. Diet as per Dr. Arce. Will be available as needed. Subjective Subjective Date/Time Seen: 03/14/23 09:36 Interval history: Patient complaining having some nausea today. She did clear liquids yesterday. Small-bowel follow-through series showed no evidence of small-bowel obstruction with normal transit time of contrast to the colon. This resulted in multiple bowel movements yesterday. No bowel movement since. No abdominal pain just mainly nausea today. Afebrile. Exam GI: Other: Abdomen is soft and nondistended. Abdomen is nontender. Benign exam. Objective Data Vital Signs Vital Signs: Vital Signs - 24 hr 03/13/23 12:00 03/13/23 15:47 03/13/23 16:00 Temperature 36.8 C Pulse Rate 72 73 71 Respiratory Rate 18 Blood Pressure 155/90 H Pulse Oximetry 98 Oxygen Delivery 03/13/23 20:00 03/13/23 20:00 03/13/23 21:32 Temperature 36.7 C Pulse Rate 86 86 81 Respiratory Rate 16 18 Blood Pressure 159/99 H Pulse Oximetry 99 100 Oxygen Delivery Room Air 03/14/23 00:00 03/14/23 05:36 03/14/23 04:00 Temperature 36.8 C Pulse Rate 66 65 65 Respiratory Rate 17 Blood Pressure 142/90 H Pulse Oximetry 99 Oxygen Delivery 03/14/23 08:38 Temperature Pulse Rate 63 Respiratory Rate Blood Pressure Pulse Oximetry Oxygen Delivery Intake/Output Intake/Output: Intake & Output 03/11/23 03/12/23 03/13/23 03/14/23 23:59 23:59 23:59 23:59 Intake Total 1000 2400 2570 1000 Output Total 1400 1325 1000 Balance 1000 1000 1245 0 Meds/Results Medications: Active Medications Generic Name Dose Route Start Last Admin Trade Name Freq PRN Reason Stop Dose Admin Bisacodyl 10 mg 03/13/23 09:00 03/14/23 08:37 Bisacodyl 10 Mg Suppository RECTAL Not Given QAM [facility] Carvedilol 3.125 mg 03/13/23 21:00 03/14/23 08:38 Carvedilol 3.125 Mg Tablet PO 3.125 mg Q12HR GEETHA Administration Hydromorphone HCl 0.5 mg 03/12/23 00:07 03/14/23 07:48 Hydromorphone Hcl Inj (*Crx) 1 Mg/Ml Syr IV PUSH 0.5 mg Q3H PRN Administration Pain Rated 7-10 Dextrose/Lactated Ringer's 1,000 mls @ 70 mls/hr 03/13/23 07:30 03/14/23 05:02 Dextrose 5%/Lactated Ringers IV CONT 70 mls/hr .[id number] GEETHA Administration Ketorolac Tromethamine 15 mg 03/13/23 08:17 03/14/23 01:42 Ketorolac 15 Mg/Ml Vial (*Bkc) IV PUSH 15 mg Q6H PRN Administration Headache Levalbuterol HCl 0.63 mg 03/12/23 06:52 Levalbuterol Neb 1.25 Mg/3 Ml INHALATION Q6HRT PRN Shortness Of Breath Or Wheezing Ondansetron HCl 4 mg 03/12/23 00:07 03/14/23 07:48 Ondansetron Inj 4 Mg/2 Ml Vial IV PUSH 4 mg Q4H PRN Administration Nausea Pantoprazole Sodium 40 mg 03/12/23 09:00 03/14/23 08:38 Pantoprazole Sodium Iv 40 Mg Vial IV PUSH 40 mg QAM [facility] Administration Sacubitril/Valsartan 1 tab 03/13/23 21:00 03/14/23 08:38 Sacubitril/Valsartan 24-26 Mg Tablet PO 1 tab Q12HR [facility] Administration Sodium Chloride 20 ml 03/14/23 08:10 Saline Lock Flush IV PUSH PRN PRN after blood draws Sodium Chloride 10 ml 03/14/23 08:10 Saline Lock Flush IV PUSH PRN PRN Flush Sodium Chloride 10 ml 03/14/23 14:00 Saline Lock Flush IV PUSH Q8HR [facility] Radiology Results: ITS Impressions Abdomen/Pelvis CT 03/11/23 21:19 IMPRESSION: Mild antral ga
--- NOTE | 2023-03-14 12:19 | PM.IMPN ---
Progress Note: A&P Assessment and Plan (1) SBO (small bowel obstruction): Code(s): K56.609 - Unspecified intestinal obstruction, unspecified as to partial versus complete obstruction Status: Chronic Assessment and Plan: Abdominal pain appears to be multifactorial due to small-bowel obstruction and some likely choledocholithiasis or biliary sludge. Both General surgery and Gastroenterology a consulted. Antiemetics and pain medication as needed Pain medications have been ordered as well. CT does suggest Partial /early complete SBO, possible early wall ischemia and worsening intra and extrahepatic bile duct dilation small-bowel follow-throughAnd negative for an obstruction. NG tube removed. Advanced diet as tolerated. (2) Dilated bile duct: Code(s): K83.8 - Other specified diseases of biliary tract Status: Acute Assessment and Plan: Patient has had cholecystectomy in the past and had recent ERCP in September of 2022 due to known dilated common bile duct and biliary sludge with sphincterectomy. She follows Dr. Arce. CT does suggest worsening intra and extrahepatic bile duct dilation From liver enzymes elevated on arrival but improved overnight. GI not concern for choledocholithiasis at this time. GI is note mentioned MRCP today although it is not been ordered. (3) Transaminitis: Code(s): R74.01 - Elevation of levels of liver transaminase levels Status: Resolved Assessment and Plan: Elevated on admission but have since resolved. (4) Chronic constipation: Code(s): K59.09 - Other constipation Status: Chronic Assessment and Plan: Sees Dr. Arce as an outpatient. (5) LEX (obstructive sleep apnea): Code(s): G47.33 - Obstructive sleep apnea (adult) (pediatric) Status: Chronic Assessment and Plan: Untreated At home. Patient does have obstructive sleep apnea but CPAP cannot be ordered given presence of NG tube in active vomiting. Subjective Date/time seen: 03/14/23 12:19 Interval history: Patient stated that after her small-bowel follow-through series she had large bowel movement. She still has some right upper quadrant discomfort. GI mention possible MRCP today. Patient's nausea has improved and she has not had headache return. Awaiting further recommendation from GI. Surgery is not recommending any intervention at this time. Exam Narrative: GENERAL: Comfortable, no acute distress HENMT: moist mucous membranes, NG tube in place EYES: EOM intact b/l NECK: no lymphadenopathy RESPIRATORY: clear to auscultation CARDIO: RRR GI: mild distension, soft, epigastric and right upper quadrant tenderness, Bowel sounds present SKIN: no rashes EXTREMITIES: no edema, redness or tenderness Objective Data Vital Signs Vital Signs: Vital Signs - 24 hr 03/13/23 15:47 03/13/23 16:00 03/13/23 20:00 Temperature 98.2 F Pulse Rate 73 71 86 Respiratory Rate 18 Blood Pressure 155/90 H Pulse Oximetry 98 Oxygen Delivery 03/13/23 20:00 03/13/23 21:32 03/14/23 00:00 Temperature 98.0 F Pulse Rate 86 81 66 Respiratory Rate 16 18 Blood Pressure 159/99 H Pulse Oximetry 99 100 Oxygen Delivery Room Air 03/14/23 05:36 03/14/23 04:00 03/14/23 08:38 Temperature 98.2 F Pulse Rate 65 65 63 Respiratory Rate 17 Blood Pressure 142/90 H Pulse Oximetry 99 Oxygen Delivery 03/14/23 08:00 Temperature Pulse Rate Respiratory Rate Blood Pressure Pulse Oximetry Oxygen Delivery Room Air Intake/Output Intake/Output: Intake & Output 03/11/23 03/12/23 03/13/23 03/14/23 23:59 23:59 23:59 23:59 Intake Total 1000 2400 2570 1210 Output Total 1400 1325 1000 Balance 1000 1000 1245 210 Meds/Results Medications: Active Medications Generic Name Dose Route Start Last Admin Trade Name Freq PRN Reason Stop Dose Admin Bisacodyl 10 mg 03/13/23 09:00 02/20
--- NOTE | 2023-03-14 13:15 | WPDGIPROGNO ---
Progress Note: A&P Assessment and Plan (1) SBO (small bowel obstruction): Code(s): K56.609 - Unspecified intestinal obstruction, unspecified as to partial versus complete obstruction Status: Chronic Assessment and Plan: the patient suddenly began having some nausea and vomiting yesterday afternoon. She brought up mostly bilious material. The same bili is dark fluid is coming out of her NG tube at the present time. Despite the vomiting and the findings of small-bowel obstruction, she did not have any mid or lower abdominal pain. The patient had removal of a large ovarian cyst several years ago and a year later developed small-bowel obstruction. 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 03/13/2023 small-bowel series just completed and is normal. I reviewed it myself and see no transition zone. There is contrast in the colon. (2) Abdominal bloating: Code(s): R14.0 - Abdominal distension (gaseous) Status: Acute Assessment and Plan: This has been a chronic problem which we have discussed in the office. She had stated that her bloating and distention began about 6 weeks ago. We discussed aerophagia. She does not drink carbonated beverages or use a straw. She has sleep apnea but does not use the CPAP. A KUB done 2 weeks ago did not show any increased bowel gas or stool. Because she often feels constipated she will take a laxative or stool softener. Her stools however have generally been soft or loose. 03/14/2023 still bloated after meals resulting in emesis. Possible delayed gastric emptying. (3) Dilated bile duct: Code(s): K83.8 - Other specified diseases of biliary tract Status: Acute Assessment and Plan: She has had ERCP with sphincterotomy twice. The last sphincterotomy in September of this year was a generous 1. Although her bile duct has increased in diameter, it is unlikely that she has biliary obstruction or choledocholithiasis. Her enzymes were elevated yesterday but have improved already overnight. I will consider MRCP this admission. Liver function studies have returned to normal. I do not think MRCP is indicated at this point 03/14/2023 ultrasound reveals normal bile duct. Is not dilated and no evidence of obstruction. No need for MRCP (4) Transaminitis: Code(s): R74.01 - Elevation of levels of liver transaminase levels Status: Resolved Assessment and Plan: Her transaminases have been fluctuating for the past a couple of years. It was thought at 1st to be due to choledocholithiasis. They were elevated last night and better today. She is also at risk for fatty liver being overweight and having hyperlipidemia. 03/13/2023 all are back to normal (5) Weight gain: Code(s): R63.5 - Abnormal weight gain Status: Acute Assessment and Plan: Despite her gastrointestinal issues, she has gained 14 lb this year already in 25 lb in the past 12 months. Plan NG suction for now. Surgery consultation pending. MRCP Tuesday to investigate dilated bile duct serology to rule out inflammatory bowel disease 03/13/2023 she has been seen by surgery who ordered small bowel series. Small bowel series is normal. Will remove NG tube and try clear liquids. Ultrasound of right upper quadrant Was unremarkable. Bile duct diameter measured at 7 mm will obtain gastric emptying scan tomorrow. I discussed gastroparesis with her. I told her that if she has that the treatment is to use metoclopramide which does have side effects some of which we discussed. Subjective Date/time seen: 03/14/23 13:15 she gets full feeling after eating. Fo
[2023-03-14] MEDS: HYDROCORTISONE 1% 30 GM CREAM 1 APPLIC TOPICAL ×2 (14:20→20:21)
[2023-03-14] MEDS: SALINE LOCK FLUSH 10 ML IV PUSH (20:25)
[2023-03-15] VITALS (11 sets, daily range): BP systolic 135–157; BP diastolic 79–93; PULSE 63–95; RESP 18; TEMP 36.7–37.5; O2SAT 97–100
[2023-03-15] MEDS: ONDANSETRON INJ 4 MG/2 ML VIAL IV PUSH ×2 (01:17→06:06)
[2023-03-15] MEDS: HYDROmorphone HCL INJ (*CRX) 1 MG/ML SYR 0.5 MG IV PUSH ×2 (01:17→06:06)
[2023-03-15] MEDS: diphenhydrAMINE HCl CAP 25 MG CAPSULE PO ×2 (01:22→22:23)
[2023-03-15] MEDS: SALINE LOCK FLUSH 10 ML IV PUSH ×2 (06:08→20:11)
--- NOTE | 2023-03-15 08:38 | PM.IMPN ---
Progress Note: A&P Assessment and Plan (1) SBO (small bowel obstruction): Code(s): K56.609 - Unspecified intestinal obstruction, unspecified as to partial versus complete obstruction Status: Chronic Assessment and Plan: Abdominal pain appears to be multifactorial due to small-bowel obstruction and some likely choledocholithiasis or biliary sludge. Both General surgery and Gastroenterology a consulted. Antiemetics and pain medication as needed Pain medications have been ordered as well. CT does suggest Partial /early complete SBO, possible early wall ischemia and worsening intra and extrahepatic bile duct dilation small-bowel follow-throughAnd negative for an obstruction. NG tube removed. Advanced diet as tolerated. (2) Dilated bile duct: Code(s): K83.8 - Other specified diseases of biliary tract Status: Acute Assessment and Plan: Patient has had cholecystectomy in the past and had recent ERCP in September of 2022 due to known dilated common bile duct and biliary sludge with sphincterectomy. She follows Dr. Arce. CT does suggest worsening intra and extrahepatic bile duct dilation From liver enzymes elevated on arrival but improved overnight. GI not concern for choledocholithiasis at this time. GI is note mentioned MRCP today although it is not been ordered. (3) Transaminitis: Code(s): R74.01 - Elevation of levels of liver transaminase levels Status: Resolved Assessment and Plan: Elevated on admission but have since resolved. (4) Chronic constipation: Code(s): K59.09 - Other constipation Status: Chronic Assessment and Plan: Sees Dr. Arce as an outpatient. (5) LEX (obstructive sleep apnea): Code(s): G47.33 - Obstructive sleep apnea (adult) (pediatric) Status: Chronic Assessment and Plan: Untreated At home. Patient does have obstructive sleep apnea but CPAP cannot be ordered given presence of NG tube in active vomiting. Subjective Date/time seen: 03/15/23 08:38 Exam Narrative: GENERAL: Comfortable, no acute distress HENMT: moist mucous membranes, NG tube in place EYES: EOM intact b/l NECK: no lymphadenopathy RESPIRATORY: clear to auscultation CARDIO: RRR GI: mild distension, soft, epigastric and right upper quadrant tenderness, Bowel sounds present SKIN: no rashes EXTREMITIES: no edema, redness or tenderness Objective Data Vital Signs Vital Signs: Vital Signs - 24 hr 03/14/23 12:00 03/14/23 14:30 03/14/23 16:00 Temperature 98.1 F Pulse Rate 71 64 77 Respiratory Rate 18 Blood Pressure 148/78 H Pulse Oximetry 98 03/14/23 20:20 03/14/23 21:16 03/14/23 20:00 Temperature 98.9 F Pulse Rate 80 64 65 Respiratory Rate 18 Blood Pressure 158/96 H Pulse Oximetry 100 03/15/23 00:00 03/15/23 04:00 03/15/23 05:34 Temperature 98.1 F Pulse Rate 88 63 64 Respiratory Rate 18 Blood Pressure 157/89 H Pulse Oximetry 100 Intake/Output Intake/Output: Intake & Output 03/12/23 03/13/23 03/14/23 03/15/23 23:59 23:59 23:59 23:59 Intake Total 2400 2570 3070 270 Output Total 1400 1325 2250 1100 Balance 1000 1245 820 -830 Meds/Results Medications: Active Medications Generic Name Dose Route Start Last Admin Trade Name Freq PRN Reason Stop Dose Admin Bisacodyl 10 mg 03/13/23 09:00 03/14/23 08:37 Bisacodyl 10 Mg Suppository RECTAL Not Given QAM GEETHA Carvedilol 3.125 mg 03/13/23 21:00 03/14/23 20:20 Carvedilol 3.125 Mg Tablet PO 3.125 mg Q12HR GEETHA Administration Diphenhydramine HCl 25 mg 03/14/23 12:43 03/15/23 01:22 Diphenhydramine Hcl Cap 25 Mg Capsule PO 25 mg Q6H PRN Administration Itching, allergic rxn Hydrocortisone 1 applic 03/14/23 12:50 03/14/23 20:21 Hydrocortisone 1% 30 Gm Cream TOPICAL 1 applic Q12HR GEETHA Administration Hydromorphone HCl 0.5 mg 03/12/23 00:07 03/15/23 06:
[2023-03-15] MEDS: HYDROCORTISONE 1% 30 GM CREAM 1 APPLIC TOPICAL ×2 (09:28→20:11)
[2023-03-15] MEDS: carvediloL 3.125 MG TABLET PO ×2 (09:28→20:10)
[2023-03-15] MEDS: PANTOPRAZOLE SODIUM IV 40 MG VIAL IV PUSH (09:28)
[2023-03-15] MEDS: SACUBITRIL/VALSARTAN 24-26 MG TABLET 1 TAB PO ×2 (09:29→20:10)
[2023-03-15] MEDS: diphenhydrAMINE HCl INJ 50 MG/ML VIAL 25 MG IV PUSH (09:29)
[2023-03-15] MEDS: methylPREDNISolone SOD SUCC 125 MG VIAL IV PUSH (11:17)
--- NOTE | 2023-03-15 12:19 | PM.IMPN ---
Progress Note: A&P Assessment and Plan (1) SBO (small bowel obstruction): Code(s): K56.609 - Unspecified intestinal obstruction, unspecified as to partial versus complete obstruction Status: Ruled-out Assessment and Plan: Abdominal pain appears to be multifactorial due to small-bowel obstruction and some likely choledocholithiasis or biliary sludge. Both General surgery and Gastroenterology a consulted. Antiemetics and pain medication as needed Pain medications have been ordered as well. CT does suggest Partial /early complete SBO, possible early wall ischemia and worsening intra and extrahepatic bile duct dilation small-bowel follow-throughAnd negative for an obstruction. NG tube removed. Advanced diet as tolerated. Gastric emptying scan ordered for today to rule out gastroparesis. (2) Dilated bile duct: Code(s): K83.8 - Other specified diseases of biliary tract Status: Acute Assessment and Plan: Patient has had cholecystectomy in the past and had recent ERCP in September of 2022 due to known dilated common bile duct and biliary sludge with sphincterectomy. She follows Dr. Arce. CT does suggest worsening intra and extrahepatic bile duct dilation From liver enzymes elevated on arrival but improved overnight. GI not concern for choledocholithiasis at this time. (3) Transaminitis: Code(s): R74.01 - Elevation of levels of liver transaminase levels Status: Resolved Assessment and Plan: Elevated on admission but have since resolved. (4) Allergic reaction to adhesive: Code(s): T78.49XA - Other allergy, initial encounter Status: Acute Assessment and Plan: Patient had large degree action to tape from the NG tube as well as around the IV. She has localized reaction this caused redness, blisters and itching. 03/14/23 Started patient on hydrocortisone cream and Benadryl. 03/15/23 Itching continued and her eyes became puffy. One does of Solu-Medrol 125 given. Continue hydrocortisone cream and Benadryl. (5) Chronic constipation: Code(s): K59.09 - Other constipation Status: Chronic Assessment and Plan: Sees Dr. Arce as an outpatient. (6) LEX (obstructive sleep apnea): Code(s): G47.33 - Obstructive sleep apnea (adult) (pediatric) Status: Chronic Assessment and Plan: Untreated At home. Patient does have obstructive sleep apnea but CPAP cannot be ordered given presence of NG tube in active vomiting. Subjective Date/time seen: 03/15/23 12:19 Interval history: Patient continues to have itching and redness over localized reaction site on her nose and her arm. On her nose it is red and crusty weeping clear fluid. She denies any pain to the sites but states that they are very itchy. She is still on a liquid diet and states that she has had this abdominal problem for approximately 2 months and is worried that if she goes home she is going to have to come back due to solid foods upsetting her stomach. She is being tested for gastroparesis today. She continues to have bowel movements and pass gas. Exam Narrative: GENERAL: Comfortable, no acute distress HENMT: moist mucous membranes, NG tube in place EYES: EOM intact b/l NECK: no lymphadenopathy RESPIRATORY: clear to auscultation CARDIO: RRR GI: mild distension, soft, epigastric and right upper quadrant tenderness, Bowel sounds present SKIN: Local reaction on her right arm and nose. Nose is crusty and weeping clear fluid. Bilateral edema over her eyes. EXTREMITIES: no edema, redness or tenderness Objective Data Vital Signs Vital Signs: Vital Signs - 24 hr 03/14/23 14:30 03/14/23 16:00 03/14/23 20:20 Temperature 98.1 F Pulse Rate 64 77 80 Respiratory Rate 18 Blood Pressure 148/78 H Pulse Oximetry 98 Oxygen Delivery 03/14/23 21:16 03/14/23 20:00 03/15/23 00:00 Temperature 98.9 F Pulse Rate 6
[2023-03-16] VITALS (12 sets, daily range): BP systolic 105–175; BP diastolic 56–94; PULSE 61–86; RESP 13–19; TEMP 36.3–36.8; O2SAT 97–100
[2023-03-16] MEDS: SALINE LOCK FLUSH 10 ML IV PUSH ×2 (05:54→14:53)
[2023-03-16 06:03] LABS: Basophils Percent Auto 0.1 % (0.2-1.2); Eosinophils Percent Auto 0.1 % (0-4.4); Hematocrit 33.7 % (37.0-47.0); Hemoglobin 11.6 g/dL (12.0-15.0); Immature Granulocyte Absolute 0.03 K/mm3 (0.00-0.031); Immature Granulocyte Percent A 0.4 % (0-0.5); Lymphocytes Absolute Auto 0.98 K/mm3 (0.9-3.2); Lymphocytes Percent Auto 13.8 % (18.3-44.2); Mean Corpuscular HGB Conc 34.4 g/dl (32-36); Mean Corpuscular Hemoglobin 29.7 pg (26-34); Mean Corpuscular Volume 86.2 fl (80-100); Mean Platelet Volume 8.8 fl (7.4-10.4); Monocytes Absolute Auto 0.5 K/mm3 (0.1-0.6); Monocytes Percent Auto 6.8 % (2.6-8.5); Neutrophils Absolute Auto 5.6 K/mm3 (1.3-6.7); Neutrophils Percent Auto 78.8 % (45.5-73.1); Platelet Count Result 293 k/mm3 (150-375); Red Blood Count 3.91 M/mm3 (4.2-5.4); Red Cell Distribution Width 11.7 % (11.5-14.5); White Blood Count 7.1 K/mm3 (4.5-10.0)
[2023-03-16 06:12] LABS: Alanine Aminotransferase 28 U/L (6-35); Albumin Level 4.2 g/dL (3.5-5.1); Alkaline Phosphatase 118 U/L (38-126); Anion Gap 8 mmol/L (8-16); Aspartate Amino Transferase 31 U/L (14-36); Bilirubin,Total 0.5 mg/dL (0.2-1.3); Blood Urea Nitrogen 5 mg/dL (7-17); Calcium 9.5 mg/dL (8.4-10.2); Carbon Dioxide 27 mmol/L (22-30); Chloride 104 mmol/L (98-107); Estimated CRCL calculation 104 ml/min; Estimated Glomerular Filt Rate > 60; Glucose 100 mg/dL (65-110); Potassium 3.5 mmol/L (3.4-5.0); Sodium 139 mmol/L (137-145)
--- NOTE | 2023-03-16 07:06 | WPDGIPROGNO ---
Progress Note: A&P Assessment and Plan (1) SBO (small bowel obstruction): Code(s): K56.609 - Unspecified intestinal obstruction, unspecified as to partial versus complete obstruction Status: Ruled-out Assessment and Plan: the patient suddenly began having some nausea and vomiting yesterday afternoon. She brought up mostly bilious material. The same bili is dark fluid is coming out of her NG tube at the present time. Despite the vomiting and the findings of small-bowel obstruction, she did not have any mid or lower abdominal pain. The patient had removal of a large ovarian cyst several years ago and a year later developed small-bowel obstruction. 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 03/13/2023 small-bowel series just completed and is normal. I reviewed it myself and see no transition zone. There is contrast in the colon. 03/16/2023 she is concerned that there is some sort of obstruction. I told her that I think we should try to advance her diet but will 1st perform EGD this morning (2) Abdominal bloating: Code(s): R14.0 - Abdominal distension (gaseous) Status: Acute Assessment and Plan: This has been a chronic problem which we have discussed in the office. She had stated that her bloating and distention began about 6 weeks ago. We discussed aerophagia. She does not drink carbonated beverages or use a straw. She has sleep apnea but does not use the CPAP. A KUB done 2 weeks ago did not show any increased bowel gas or stool. Because she often feels constipated she will take a laxative or stool softener. Her stools however have generally been soft or loose. 03/14/2023 still bloated after meals resulting in emesis. Possible delayed gastric emptying. (3) Dilated bile duct: Code(s): K83.8 - Other specified diseases of biliary tract Status: Acute Assessment and Plan: She has had ERCP with sphincterotomy twice. The last sphincterotomy in September of this year was a generous 1. Although her bile duct has increased in diameter, it is unlikely that she has biliary obstruction or choledocholithiasis. Her enzymes were elevated yesterday but have improved already overnight. I will consider MRCP this admission. Liver function studies have returned to normal. I do not think MRCP is indicated at this point 03/14/2023 ultrasound reveals normal bile duct. Is not dilated and no evidence of obstruction. No need for MRCP 03/16/2023 I told her the my plan is to refer her to Dr Lees, A gastrointestinal hepatobiliary specialist at [facility] (4) Transaminitis: Code(s): R74.01 - Elevation of levels of liver transaminase levels Status: Resolved Assessment and Plan: Her transaminases have been fluctuating for the past a couple of years. It was thought at 1st to be due to choledocholithiasis. They were elevated last night and better today. She is also at risk for fatty liver being overweight and having hyperlipidemia. 03/13/2023 all are back to normal (5) Weight gain: Code(s): R63.5 - Abnormal weight gain Status: Acute Assessment and Plan: Despite her gastrointestinal issues, she has gained 14 lb this year already in 25 lb in the past 12 months. Plan NG suction for now. Surgery consultation pending. MRCP Tuesday to investigate dilated bile duct serology to rule out inflammatory bowel disease 03/13/2023 she has been seen by surgery who ordered small bowel series. Small bowel series is normal. Will remove NG tube and try clear liquids. Ultrasound of right upper quadrant Was unremarkable. Bile duct diameter measured at 7 m
--- NOTE | 2023-03-16 07:55 | PM.IMPN ---
Progress Note: A&P Assessment and Plan (1) SBO (small bowel obstruction): Code(s): K56.609 - Unspecified intestinal obstruction, unspecified as to partial versus complete obstruction Status: Ruled-out Assessment and Plan: Ruled out with small bowel follow through NG removed GI consulted and is going to preform UGI today 03/16 and then advanced diet after Possible delayed emptying so anticipating starting reglan Serology pending for inflammatory bowel disease RUQ ultrasound reveals normal bile duct Outpatient referral to Dr Vasques, gastrointestional hepatobility specialist at [facility] (2) Dilated bile duct: Code(s): K83.8 - Other specified diseases of biliary tract Status: Acute Assessment and Plan: see above (3) Transaminitis: Code(s): R74.01 - Elevation of levels of liver transaminase levels Status: Resolved Assessment and Plan: liver enzymes have resolved (4) Allergic reaction to adhesive: Code(s): T78.49XA - Other allergy, initial encounter Status: Acute Assessment and Plan: can restart Zyrtec and singular later today after scope (5) Chronic constipation: Code(s): K59.09 - Other constipation Status: Chronic (6) LEX (obstructive sleep apnea): Code(s): G47.33 - Obstructive sleep apnea (adult) (pediatric) Status: Chronic Subjective Date/time seen: 03/16/23 07:55 Interval history: HPI obtained from chart: Narrative: 52-year-old female with a past medical history of asthma, hypertension, prior cholecystectomy, 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 She reports that for the last month or so she has been having intermittent right upper quadrant abdominal pain similar to when she had prior sludge/stones and narrowing of her bile duct.? 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 She had repeat ERCP in September 2022 due to dilated common bile duct and biliary sludge with sphincterotomy.? Both procedures were performed by Dr. Arce.? Patient reported that she followed up with Dr. Andrew regarding her right upper quadrant symptoms that seem worse with eating on February 19.? They have been trying to get the patient approved for an outpatient CT scan.? She had also been having some intermittent lower right abdominal pain a come and go.? It was accompanied by bouts of constipation.? She reports that for the most part she can go weaker more without having a bowel movement.? She has to take stool softeners daily.? She is also at at use intermittent laxatives but reports that she does not like the side effects including bloating and cramping as well as pain.? She has not had a bowel movement in at least 5 days.? She also has intermittent bowel movements were she has incontinent stools that are incomplete and occur multiple times.? Suspect she is having overflow incontinence.? She denies any hematochezia or melena.? She has not had any recent fevers or chills.? She reports that the pain was manageable until around 13:00 on the .? She then had just tried to eat some toast to see if it would settle her stomach.? After she ate the toe she began having vomiting.? She was unable to stop vomiting.? After eating her be pain became quite severe.? She tried conservative measures until around 19:00 when she finally decided that she needed to come into the ER.? She is still feeling nauseated at this time after an NG tube was placed in the ER.? NG tube was placed due to possible bowel obstruction on CT.? Also CT demonstrated increased biliary duct dilatation but no obvious stones.? Her LFTs were elevated suggesting biliary obstruction.? She reports that despite having intermittent decreased appetite over the last couple of months she has still been feeling more bloated.? She has gained about 11 lb.?
--- NOTE | 2023-03-16 08:53 | PC.NURSE ---
Called GI lab to verify if OK to give AM PO medications d/t an EGD scheduled for later today. OK per GI to give AM PO medications.
[2023-03-16] MEDS: SACUBITRIL/VALSARTAN 24-26 MG TABLET 1 TAB PO (09:00)
[2023-03-16] MEDS: PANTOPRAZOLE SODIUM IV 40 MG VIAL IV PUSH (09:01)
[2023-03-16] MEDS: carvediloL 3.125 MG TABLET PO (09:01)
[2023-03-16] MEDS: LACTATED RINGERS 1,000 ML 150 ML IV CONT (10:59)
--- NOTE | 2023-03-16 11:05 | WPDANESEPPF ---
Anes - Initial Pre Proc Eval Procedure: Operation Date: 03/16/23 14:45 Proposed Procedures p Esophagogastroduodenoscopy - Ethan Arce MD Date/Time: 03/16/23 11:05 Surgeon: Maida Cr DO Pre Op Diagnosis: SBO Patient Data Age: 52 Gender: F Height: 1.68 m Weight: 87.7 kg Last Vital Signs Temp 97.4 F L 03/16/23 10:53 Pulse 64 03/16/23 10:53 Resp 16 03/16/23 10:53 BP 162/94 H 03/16/23 10:53 Pulse Ox 100 03/16/23 10:53 O2 Del Method Room Air 03/16/23 10:53 O2 Flow Rate 2 03/12/23 09:30 Allergies Allergy/AdvReac Type Severity Reaction Status Date / Time Penicillins Allergy Severe Hives Verified 03/16/23 10:51 adhesive tape Allergy Intermediate Blister Verified 03/16/23 10:51 amlodipine Allergy Intermediate Hives Verified 03/16/23 10:51 Sulfa (Sulfonamide Allergy Intermediate Hives Verified 03/16/23 10:51 Antibiotics) tamoxifen Allergy Intermediate Hives Verified 03/16/23 10:51 Home Medications Medication Instructions Recorded Confirmed Type cetirizine 10 mg tablet (Zyrtec) 10 mg PO DAILY 07/14/21 03/12/23 History montelukast 10 mg tablet 10 mg PO HS 07/14/21 03/12/23 History (Singulair) pantoprazole 40 mg tablet,delayed 40 mg PO QAM 07/14/21 03/12/23 History release rosuvastatin 5 mg tablet 5 mg PO DAILY 07/14/21 03/12/23 History albuterol sulfate 2.5 mg/3 mL 2.5 mg inhalation PRN PRN 10/03/21 03/12/23 History (0.083 %) solution for nebulization Shortness Of Breath Or Wheezing albuterol sulfate 90 mcg/actuation 2 inh inhalation Q6H PRN Shortness 09/10/22 03/12/23 History aerosol inhaler Of Breath Or Wheezing levalbuterol HCl 1.25 mg/3 mL 0.63 mg inhalation Q6HRT PRN 09/10/22 03/12/23 History solution for nebulization Shortness Of Breath Or Wheezing lorazepam 0.5 mg tablet (Ativan) 0.5 mg PO HS 09/10/22 03/12/23 History solifenacin 10 mg tablet 10 mg PO DAILY 09/10/22 03/12/23 History amitriptyline 10 mg tablet See Rx Instructions .Route 11/27/22 03/12/23 Rx .COMPLEX #90 tabs docusate sodium 100 mg capsule 100 mg PO DAILY PRN Constipation 01/16/23 03/12/23 History (Colace) carvedilol 3.125 mg tablet 3.125 mg PO Q12H #60 tabs 01/21/23 03/12/23 Rx sacubitril 24 mg-valsartan 26 mg 1 tablet PO Q12HR 30 days #60 tabs 02/18/23 03/12/23 Rx tablet (Entresto) tizanidine 4 mg tablet 4 mg PO Q8H PRN muscle spasticity 02/23/23 03/12/23 Rx #90 tabs Laboratory Tests 03/16/23 03/16/23 05:53 05:54 WBC 7.1 K/mm3 (4.5-10.0) RBC 3.91 L M/mm3 (4.2-5.4) Hgb 11.6 L g/dL (12.0-15.0) Hct 33.7 L % (37.0-47.0) MCV 86.2 fl (80-100) MCH 29.7 pg (26-34) MCHC 34.4 g/dl (32-36) RDW 11.7 % (11.5-14.5) Plt Count 293 k/mm3 (150-375) MPV 8.8 fl (7.4-10.4) Immature Gran % (Auto) 0.4 % (0-0.5) Neut % (Auto) 78.8 H % (45.5-73.1) Lymph % (Auto) 13.8 L % (18.3-44.2) Hemphill % (Auto) 6.8 % (2.6-8.5) Eos % (Auto) 0.1 % (0-4.4) Baso % (Auto) 0.1 L % (0.2-1.2) Lymph # (Auto) 0.98 K/mm3 (0.9-3.2) Hemphill # (Auto) 0.5 K/mm3 (0.1-0.6) Eos # (Auto) 0.0 K/mm3 (0-0.3) Baso # (Auto) 0.0 K/mm3 (0.0-0.1) Abs Immat Gran (auto) 0.03 K/mm3 (0.00-0.031) Absolute Neuts (auto) 5.6 K/mm3 (1.3-6.7) Absolute Nucleated RBC 0.0 K/mm3 (0.0-0.012) Nucleated RBC % 0.0 % (0.0-0.2) Sodium 139 mmol/L (137-145) Potassium 3.5 mmol/L (3.4-5.0) Chloride 104 mmol/L (98-107) Carbon Dioxide 27 mmol/L (22-30) Anion Gap 8 mmol/L (8-16) BUN 5 L mg/dL (7-17) Creatinine 0.60 L mg/dL (0.7-1.0) Estim Creat Clear Calc 104 ml/min Estimated GFR > 60 (59 - ) Glucose 100 mg/dL (65-110) Calcium 9.5 mg/dL (8.4-10.2) Total Bilirubin 0.5 mg/dL (0.2-1.3) AST 31 U/L (14-36) ALT 28 U/L (6-35)
[2023-03-16] MEDS: BENZOCAINE (*SP) 60 ML SPRAY CAN (HURRICAINE) 1 SPRAY MUCOUS MEM (11:36)
--- NOTE | 2023-03-18 16:14 | PM.DS ---
DS: Admitting Diagnosis Discharge Date 03/16/23 Admitting Diagnosis Abdominal pain DS: Discharge Diagnosis Discharge Diagnosis (1) SBO (small bowel obstruction): Code(s): K56.609 - Unspecified intestinal obstruction, unspecified as to partial versus complete obstruction Status: Ruled-out Assessment and Plan: Ruled out with small bowel follow through NG removed GI consulted and is going to preform UGI today 03/16 and then advanced diet after Possible delayed emptying so anticipating starting reglan Serology pending for inflammatory bowel disease RUQ ultrasound reveals normal bile duct Outpatient referral to Dr Vasques, gastrointestional hepatobility specialist at [facility] (2) Dilated bile duct: Code(s): K83.8 - Other specified diseases of biliary tract Status: Acute Assessment and Plan: see above (3) Transaminitis: Code(s): R74.01 - Elevation of levels of liver transaminase levels Status: Resolved Assessment and Plan: liver enzymes have resolved (4) Allergic reaction to adhesive: Code(s): T78.49XA - Other allergy, initial encounter Status: Acute Assessment and Plan: can restart Zyrtec and singular later today after scope (5) Chronic constipation: Code(s): K59.09 - Other constipation Status: Chronic (6) LEX (obstructive sleep apnea): Code(s): G47.33 - Obstructive sleep apnea (adult) (pediatric) Status: Chronic DS: Summary Hospital Course Reason for hospitalization: Abdominal pain Hospital Course: Narrative: 52-year-old female with a past medical history of asthma, hypertension, prior cholecystectomy, 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 She reports that for the last month or so she has been having intermittent right upper quadrant abdominal pain similar to when she had prior sludge/stones and narrowing of her bile duct.? 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 She had repeat ERCP in September 2022 due to dilated common bile duct and biliary sludge with sphincterotomy.? Both procedures were performed by Dr. Arce.? Patient reported that she followed up with Dr. Andrew regarding her right upper quadrant symptoms that seem worse with eating on February 19.? They have been trying to get the patient approved for an outpatient CT scan.? She had also been having some intermittent lower right abdominal pain a come and go.? It was accompanied by bouts of constipation.? She reports that for the most part she can go weaker more without having a bowel movement.? She has to take stool softeners daily.? She is also at at use intermittent laxatives but reports that she does not like the side effects including bloating and cramping as well as pain.? She has not had a bowel movement in at least 5 days.? She also has intermittent bowel movements were she has incontinent stools that are incomplete and occur multiple times.? Suspect she is having overflow incontinence.? She denies any hematochezia or melena.? She has not had any recent fevers or chills.? She reports that the pain was manageable until around 13:00 on the .? She then had just tried to eat some toast to see if it would settle her stomach.? After she ate the toe she began having vomiting.? She was unable to stop vomiting.? After eating her be pain became quite severe.? She tried conservative measures until around 19:00 when she finally decided that she needed to come into the ER.? She is still feeling nauseated at this time after an NG tube was placed in the ER.? NG tube was placed due to possible bowel obstruction on CT.? Also CT demonstrated increased biliary duct dilatation but no obvious stones.? Her LFTs were elevated suggesting biliary obstruction.? She reports that despite having intermittent decreased appetite over
[2023-03-21 14:17] LABS: ANCA Screen Negative (Negative); Myeloperoxidase Ab <1.0 AI (<1.0); Proteinase-3 Ab <1.0 AI (<1.0); S cerevisiae Ab (IgA) 11.4 U (<=20.0); S cerevisiae Ab (IgG) 44.9 U (<=20.0)
== END 2023-03-16 18:30 | disposition home or self-care (01) | DRG 254 ==
LOC: ANHED 20:18 → ANH2MED 03-12 00:44
PROVIDERS: Emergency Medicine; Internal Medicine Critical Care Medicine; Internal Medicine Gastroenterology; Admitting Provider Internal Medicine; Emergency Provider Physician Assistant; PCP Nurse Practitioner Family; Visit Provider Nurse Practitioner Acute Care
PROC: 0DJ08ZZ Inspection of Upper Intestinal Tract, Via Natural or Artificial Opening Endoscopic (ICD-10-PCS; CPT 43235; principal; 2023-03-16 14:45)
DX: K58.2 Mixed irritable bowel syndrome (principal); K56.609 Unspecified intestinal obstruction, unspecified as to partial versus complete obstruction; K83.8 Other specified diseases of biliary tract; E66.9 Obesity, unspecified; K59.09 Other constipation; K29.80 Duodenitis without bleeding; K21.9 Gastro-esophageal reflux disease without esophagitis; R74.01 Elevation of levels of liver transaminase levels; G47.33 Obstructive sleep apnea (adult) (pediatric); T78.49XA Other allergy, initial encounter; J45.909 Unspecified asthma, uncomplicated; I10 Essential (primary) hypertension; E78.5 Hyperlipidemia, unspecified; M54.12 Radiculopathy, cervical region; R32 Unspecified urinary incontinence; Z90.49 Acquired absence of other specified parts of digestive tract; Z86.16 Personal history of COVID-19; Z68.31 Body mass index [BMI] 31.0-31.9, adult
CPT/HCPCS: 36415; 36569; 74177; 74250; 76705; 78264; 80053; 81001; 83605; 83690; 83735; 84443; 84484; 85025; 85027; 86036; 86671; 87081; 87086; 88305; 93005; 96361; 96365; 96374; 96375; 96376; 99285; A9270; A9541; C1751; C9113; G0378; G0379; J0457; J1170; J1200; J1836; J1885; J2270; J2405; J2704; J2930; J3480; J7030; J7040; J7120; J7121; Q9967

== ENCOUNTER 2023-07-13 18:44 | Emergency (ER) | payer OTHER, SELFPAY ==
--- NOTE | 2023-07-13 18:45 | ED.FEMALEGU ---
HPI - Female Genitourinary General Chief complaint: Urogenital-Female Stated complaint: UTI Time Seen by Provider: 07/13/23 18:46 Source: patient Mode of arrival: ambulatory Limitations: no limitations History of Present Illness HPI Narrative: Chrissy is a 53-year-old female patient presenting to the clinic today with complaints of possible UTI. She reports bladder pressure and right flank pain x2 weeks. She reports that the pain does come and go. Currently rates her pain a 2/10. No fever or chills. History of kidney stones and UTI in the past. Does see a urologist. Has appointment for a ultrasound in 2 weeks. Related Data Home Medications Medication Instructions Recorded Confirmed albuterol sulfate 90 mcg/actuation 2 inh inhalation Q6H PRN Shortness 09/10/22 07/13/23 aerosol inhaler Of Breath Or Wheezing levalbuterol HCl 1.25 mg/3 mL 0.63 mg inhalation Q6HRT PRN 09/10/22 07/13/23 solution for nebulization Shortness Of Breath Or Wheezing solifenacin 10 mg tablet 10 mg PO DAILY 09/10/22 07/13/23 omega 7-qww-azd-fish oil 1,000 mg 2 cap PO DAILY 05/26/23 07/13/23 (120 mg-180 mg) capsule (Fish Oil) Allergies Allergy/AdvReac Type Severity Reaction Status Date / Time Penicillins Allergy Severe Hives Verified 07/13/23 18:54 adhesive tape Allergy Intermediate Blister Verified 07/13/23 18:54 amlodipine Allergy Intermediate Hives Verified 07/13/23 18:54 Sulfa (Sulfonamide Allergy Intermediate Hives Verified 07/13/23 18:54 Antibiotics) tamoxifen Allergy Intermediate Hives Verified 07/13/23 18:54 Review of Systems Review of Systems: Pertinent positives per HPI. Patient denies any fever, chills, rash, headache, visual changes, dizziness, cough, runny nose, sore throat, shortness of breath, chest pain, palpitations, nausea, vomiting, diarrhea, constipation, abdominal pain, or any urinary issues. [facility] Past Medical History Medical History Anxiety Asthma Bradycardia Cervical radiculitis COVID-19 Depression Elevated troponin GERD (gastroesophageal reflux disease) Hx of migraines Hyperlipidemia Hypertension Insomnia Low back pain radiating to right leg (normal spontaneous vaginal delivery) x2 LEX (obstructive sleep apnea) With CPAP Pseudoangiomatous stromal hyperplasia of breast 2012 Rash and nonspecific skin eruption Takotsubo cardiomyopathy (02/2022) Urinary incontinence Surgical History Surgical History H/O breast biopsy H/O oophorectomy History of bowel resection (~2007) small intestine Hx of appendectomy S/P laparoscopic cholecystectomy Status post laser cataract surgery of right eye X2 Family History Family History Mother Breast cancer Father Throat cancer Social History Social History Social History: Lifelong nonsmoker. Denies alcohol or drug use. Lives at home with her and her teenaged biological daughter. They also have 3 cats. She has a 2nd child who is older and has moved out. She is a full code. She nominates Cesia to be the individual to make medical decisions for her she is unable. 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 Gender identity (if verbalized by the patient): Female Sp
[2023-07-13 18:49] VITALS: BP 157/95; PULSE 82; RESP 16; TEMP 36.2; O2SAT 98
== END 2023-07-13 19:03 | disposition home or self-care (01) ==
PROVIDERS: Emergency Provider Nurse Practitioner Family; PCP Nurse Practitioner Family
DX: R10.9 Unspecified abdominal pain (principal); R31.29 Other microscopic hematuria; J45.909 Unspecified asthma, uncomplicated; K21.9 Gastro-esophageal reflux disease without esophagitis; E78.5 Hyperlipidemia, unspecified; I10 Essential (primary) hypertension; G47.33 Obstructive sleep apnea (adult) (pediatric); F41.9 Anxiety disorder, unspecified; F32.A Depression, unspecified
CPT/HCPCS: 81003; 99212; G0463

== ENCOUNTER 2023-07-20 01:35 | Day surgery (SDC) | payer OTHER, SELFPAY ==
[2023-07-06 09:39] VITALS: BMI 30.7
--- NOTE | 2023-07-18 10:09 | SUR.PREOP ---
Patient called regarding upcoming procedure. Patient did not answer- arrival time left on message.
--- NOTE | 2023-07-19 15:12 | PM.HPGS ---
History of Present Illness History of Present Illness Consent: Risks, benefits, and alternatives have been discussed and questions answered. Patient agrees to proceed with procedure. Chief complaint: neoplasm screening Narrative: Chrissy Kilgore is a 53 year old female referred for colon cancer screening. she has a history of polyps. She had had a prior colon resection for obstruction when she lived in [place]. Review of Systems Review of Systems: All systems reviewed & are unremarkable except as noted in HPI and below PMFSH Past Medical History Medical History Anxiety Asthma Bradycardia Cervical radiculitis COVID-19 Depression Elevated troponin GERD (gastroesophageal reflux disease) Hx of migraines Hyperlipidemia Hypertension Insomnia Low back pain radiating to right leg (normal spontaneous vaginal delivery) x2 LEX (obstructive sleep apnea) With CPAP Pseudoangiomatous stromal hyperplasia of breast 2013 Rash and nonspecific skin eruption Takotsubo cardiomyopathy (02/2022) Urinary incontinence Surgical History Surgical History H/O breast biopsy H/O oophorectomy History of bowel resection (~2007) small intestine Hx of appendectomy S/P laparoscopic cholecystectomy Status post laser cataract surgery of right eye X2 Family History Family History Mother Breast cancer Father Throat cancer Social History Social History Social History: Lifelong nonsmoker. Denies alcohol or drug use. Lives at home with her and her teenaged biological daughter. They also have 3 cats. She has a 2nd child who is older and has moved out. She is a full code. She nominates Cesia to be the individual to make medical decisions for her she is unable. 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 Gender identity (if verbalized by the patient): Female Spiritual care concerns: No Meds Home Medications and Allergies Home Medications Medication Instructions Recorded Confirmed Type albuterol sulfate 90 mcg/actuation 2 inh inhalation Q6H PRN Shortness 09/10/22 07/20/23 History aerosol inhaler Of Breath Or Wheezing levalbuterol HCl 1.25 mg/3 mL 0.63 mg inhalation Q6HRT PRN 09/10/22 07/20/23 History solution for nebulization Shortness Of Breath Or Wheezing solifenacin 10 mg tablet 10 mg PO DAILY 09/10/22 07/20/23 History carvedilol 3.125 mg tablet 3.125 mg PO Q12H #60 tabs 01/21/23 07/20/23 Rx sacubitril 24 mg-valsartan 26 mg 1 tablet PO Q12HR 30 days #60 tabs 02/18/23 07/20/23 Rx tablet (Entresto) amitriptyline 10 mg tablet 10 mg PO QHS #90 tabs 04/05/23 07/20/23 Rx cetirizine 10 mg tablet (Zyrtec) 10 mg PO DAILY #90 tabs 04/05/23 07/20/23 Rx docusate sodium 100 mg capsule 100 mg PO BID Constipation #180 04/05/23 07/20/23 Rx (Colace) caps montelukast 10 mg tablet 10 mg PO HS #90 tabs 04/05/23 07/20/23 Rx (Singulair) pantoprazole 40 mg tablet,delayed 40 mg PO QAM #90 tabs 04/05/23 07/20/23 Rx release rosuvastatin 5 mg tablet 5 mg PO DAILY #90 tabs 04/05/23 07/20/23 Rx omega 0-ufy-pvk-fish oil 1,000 mg 2 cap PO DAILY 05/26/23 07/20/23 History (120 mg-180 mg) capsule (Fish Oil) lorazepam 0.5 mg tablet (Ativan) 0.5 mg PO HS PRN sleep #30
[2023-07-20 06:49] VITALS: BP 129/89; PULSE 108; RESP 16; TEMP 36.7; O2SAT 98
[2023-07-20] MEDS: LACTATED RINGERS 1,000 ML 150 ML IV CONT (06:57)
--- NOTE | 2023-07-20 07:32 | WPDANESEPPF ---
Anes - Initial Pre Proc Eval Procedure: Operation Date: 07/20/23 08:00 Proposed Procedures p Screening Colonoscopy - Ethan Arce MD Date/Time: 07/20/23 07:32 Surgeon: Ethan Arce MD Pre Op Diagnosis: neoplasm screening Patient Data Age: 53 Gender: F Height: 1.68 m Weight: 85.1 kg Last Vital Signs Temp 98.0 F 07/20/23 06:49 Pulse 108 H 07/20/23 06:49 Resp 16 07/20/23 06:49 BP 129/89 07/20/23 06:49 Pulse Ox 98 07/20/23 06:49 O2 Del Method Room Air 07/20/23 06:49 Allergies Allergy/AdvReac Type Severity Reaction Status Date / Time Penicillins Allergy Severe Hives Verified 07/20/23 06:46 adhesive tape Allergy Intermediate Blister Verified 07/20/23 06:46 amlodipine Allergy Intermediate Hives Verified 07/20/23 06:46 Sulfa (Sulfonamide Allergy Intermediate Hives Verified 07/20/23 06:46 Antibiotics) tamoxifen Allergy Intermediate Hives Verified 07/20/23 06:46 Home Medications Medication Instructions Recorded Confirmed Type albuterol sulfate 90 mcg/actuation 2 inh inhalation Q6H PRN Shortness 09/10/22 07/20/23 History aerosol inhaler Of Breath Or Wheezing levalbuterol HCl 1.25 mg/3 mL 0.63 mg inhalation Q6HRT PRN 09/10/22 07/20/23 History solution for nebulization Shortness Of Breath Or Wheezing solifenacin 10 mg tablet 10 mg PO DAILY 09/10/22 07/20/23 History carvedilol 3.125 mg tablet 3.125 mg PO Q12H #60 tabs 01/21/23 07/20/23 Rx sacubitril 24 mg-valsartan 26 mg 1 tablet PO Q12HR 30 days #60 tabs 02/18/23 07/20/23 Rx tablet (Entresto) amitriptyline 10 mg tablet 10 mg PO QHS #90 tabs 04/05/23 07/20/23 Rx cetirizine 10 mg tablet (Zyrtec) 10 mg PO DAILY #90 tabs 04/05/23 07/20/23 Rx docusate sodium 100 mg capsule 100 mg PO BID Constipation #180 04/05/23 07/20/23 Rx (Colace) caps montelukast 10 mg tablet 10 mg PO HS #90 tabs 04/05/23 07/20/23 Rx (Singulair) pantoprazole 40 mg tablet,delayed 40 mg PO QAM #90 tabs 04/05/23 07/20/23 Rx release rosuvastatin 5 mg tablet 5 mg PO DAILY #90 tabs 04/05/23 07/20/23 Rx omega 0-kdr-yje-fish oil 1,000 mg 2 cap PO DAILY 05/26/23 07/20/23 History (120 mg-180 mg) capsule (Fish Oil) lorazepam 0.5 mg tablet (Ativan) 0.5 mg PO HS PRN sleep #30 tabs 06/02/23 07/13/23 Rx tizanidine 4 mg tablet 4 mg PO Q8H PRN muscle spasticity 06/15/23 07/20/23 Rx #90 tabs Patient hx anesthesia problems: none Family hx anesthesia problems: none Results Review: All pre-operative results and documents have been reviewed as part of the pre-operative evaluation. [facility] Past Medical History Medical History Anxiety Asthma Bradycardia Cervical radiculitis COVID-19 Depression Elevated troponin GERD (gastroesophageal reflux disease) Hx of migraines Hyperlipidemia Hypertension Insomnia Low back pain radiating to right leg (normal spontaneous vaginal delivery) x2 LEX (obstructive sleep apnea) With CPAP Pseudoangiomatous stromal hyperplasia of breast 2012 Rash and nonspecific skin eruption Takotsubo cardiomyopathy (02/2022) Urinary incontinence Surgical History Surgical History H/O breast biopsy H/O oophorectomy 1989' History of bowel resection (~2007) small intestine Hx of appendectomy S/P laparoscopic cholecystectomy Status post laser cataract surgery of right eye X2 Family History Family History Mother Breast cancer Father Throat cancer Social History Social History Social History: Lifelong nonsmoker. Denies alcohol or drug use. Lives at home with her and her teenaged biological daughter. They also have 3 cats. She has a 2nd child who is older and has moved out. She is a full code. She nominates Cesia to be the individual to make medical decisions for her she is unable. Smoking stat
[2023-07-20 08:19] VITALS: BP 115/78; PULSE 93; RESP 20; O2SAT 95
[2023-07-20 08:29] VITALS: BP 107/87; PULSE 88; RESP 18; O2SAT 98
[2023-07-20 08:39] VITALS: BP 119/87; PULSE 76; RESP 18; O2SAT 100
== END 2023-07-20 08:45 | disposition home or self-care (01) ==
PROVIDERS: PCP Nurse Practitioner Family; Visit Provider Internal Medicine Gastroenterology
PROC: 0DJD8ZZ Inspection of Lower Intestinal Tract, Via Natural or Artificial Opening Endoscopic (ICD-10-PCS; CPT 45378; principal; 2023-07-20 08:00)
DX: Z12.11 Encounter for screening for malignant neoplasm of colon (principal); K63.5 Polyp of colon; D12.3 Benign neoplasm of transverse colon; K63.89 Other specified diseases of intestine; F41.9 Anxiety disorder, unspecified; F32.A Depression, unspecified; E78.5 Hyperlipidemia, unspecified; I10 Essential (primary) hypertension; G47.00 Insomnia, unspecified; G47.33 Obstructive sleep apnea (adult) (pediatric); J45.909 Unspecified asthma, uncomplicated; K21.9 Gastro-esophageal reflux disease without esophagitis; R32 Unspecified urinary incontinence; E66.9 Obesity, unspecified; Z68.30 Body mass index [BMI] 30.0-30.9, adult; Z79.51 Long term (current) use of inhaled steroids; Z99.89 Dependence on other enabling machines and devices; Z90.49 Acquired absence of other specified parts of digestive tract; Z86.79 Personal history of other diseases of the circulatory system; Z80.3 Family history of malignant neoplasm of breast; Z80.1 Family history of malignant neoplasm of trachea, bronchus and lung
CPT/HCPCS: 45380; 45381; 88305; J2704; J7120

== ENCOUNTER 2023-08-02 11:46 | Outpatient (CLI) | payer OTHER, SELFPAY ==
[2023-08-02 12:19] LABS: Alanine Aminotransferase 42 U/L (6-35); Albumin Level 4.4 g/dL (3.5-5.1); Alkaline Phosphatase 147 U/L (38-126); Anion Gap 7 mmol/L (8-16); Aspartate Amino Transferase 41 U/L (14-36); Blood Urea Nitrogen 11 mg/dL (7-17); Calcium 9.5 mg/dL (8.4-10.2); Carbon Dioxide 27 mmol/L (22-30); Chloride 105 mmol/L (98-107); Cholesterol 242 mg/dL (0-200); Estimated Glomerular Filt Rate > 60; Glucose 113 mg/dL (65-110); HDL Direct 88 mg/dL; Potassium 4.2 mmol/L (3.4-5.0); Sodium 139 mmol/L (137-145); Triglycerides 114 mg/dL (<150)
[2023-08-02 12:31] LABS: LDL Cholesterol Direct 111 mg/dL
== END 2023-08-02 11:47 | disposition home or self-care (01) ==
LOC: ANHLAB 11:48
PROVIDERS: PCP Nurse Practitioner Family; Visit Provider Nurse Practitioner Family
DX: E78.5 Hyperlipidemia, unspecified (principal); I10 Essential (primary) hypertension; F41.9 Anxiety disorder, unspecified; G47.00 Insomnia, unspecified
CPT/HCPCS: 36415; 80053; 80061; 84443

== ENCOUNTER 2024-01-05 15:12 | Outpatient (CLI) | payer OTHER, SELFPAY ==
[2024-01-05 15:37] LABS: Hemoglobin 12.8 g/dL (12.0-15.0); Mean Corpuscular HGB Conc 34.6 g/dl (32-36); Mean Corpuscular Hemoglobin 30.2 pg (26-34); Mean Corpuscular Volume 87.3 fl (80-100); Mean Platelet Volume 9.5 fl (7.4-10.4); Platelet Count Result 256 k/mm3 (150-375); Red Blood Count 4.24 M/mm3 (4.2-5.4); Red Cell Distribution Width 12.4 % (11.5-14.5); White Blood Count 3.6 K/mm3 (4.5-10.0)
[2024-01-05 17:13] LABS: Alanine Aminotransferase 31 U/L (6-35); Albumin Level 4.5 g/dL (3.5-5.1); Alkaline Phosphatase 160 U/L (38-126); Anion Gap 6 mmol/L (4-12); Aspartate Amino Transferase 39 U/L (14-36); Bilirubin,Total 0.5 mg/dL (0.2-1.3); Blood Urea Nitrogen 14 mg/dL (7-17); Calcium 9.6 mg/dL (8.4-10.2); Carbon Dioxide 25 mmol/L (22-30); Chloride 109 mmol/L (98-107); Estimated Glomerular Filt Rate > 60; Glucose 100 mg/dL (65-110); Potassium 3.4 mmol/L (3.4-5.0); Sodium 140 mmol/L (137-145)
== END 2024-01-05 15:13 | disposition home or self-care (01) ==
LOC: ANHLAB 15:13
PROVIDERS: PCP Nurse Practitioner Family; Visit Provider Nurse Practitioner Family
DX: R79.89 Other specified abnormal findings of blood chemistry (principal)
CPT/HCPCS: 36415; 80053; 85027

== ENCOUNTER 2024-01-27 08:35 | Outpatient (CLI) | payer OTHER, SELFPAY ==
--- NOTE | ~2024-01-27 | MR_ITS ---
MRI of the abdomen: Clinical indication: Obstruction of duodenum. Technique: Coronal SSFSE ARC, WATER:coronal LAVA-FLEX, Coronal 2D FIESTA FatSat, Axial SSFSE BH ARC, Axial 3D DualEcho BH, Axial SSFSE-IR, Axial DWI b=500, Axial 2D FIESTA FatSat, pre and dynamic postco ntrast Axial LAVA ARC, postcontrast Coronal In and Opposed phase LAVA FLEX. Following intravenous adm inistration of 17 cc MultiHance gadolinium, T1-weighted fat-sat imaging was performed in the axial an d coronal planes. COMPARISON: 01/06/2022 Findings: Gallbladder is absent. The common bile duct is mildly diffusely dilated, possibly due to pr ior cholecystectomy.. No filling defects are seen within the CBD. No evidence of intrahepatic biliary ductal dilatation. The pancreatic duct is normal in size. Liver, spleen, pancreas, adrenals, kidneys appear normal. The aorta and the paraaortic regions appear normal. No evidence of duodenal obstruction or mass. No abnormal postcontrast enhancement identified. Impression: No significant abnormality seen. No evidence of duodenal obstruction. Status post cholecystectomy. Reviewed, dictated and finalized at location . Impression: No significant abnormality seen. No evidence of duodenal obstruction. Status post cholecystectomy.
== END 2024-01-27 08:36 | disposition home or self-care (01) ==
LOC: ANHIMG 08:37
PROVIDERS: PCP Nurse Practitioner Family; Visit Provider Nurse Practitioner Family
DX: K31.5 Obstruction of duodenum (principal); K52.9 Noninfective gastroenteritis and colitis, unspecified; K83.8 Other specified diseases of biliary tract; R79.89 Other specified abnormal findings of blood chemistry; R10.11 Right upper quadrant pain
CPT/HCPCS: 74183; 76376; A9577

== ENCOUNTER 2024-02-06 16:52 | Outpatient (CLI) | payer OTHER, SELFPAY ==
[2024-02-06 17:27] LABS: Lipase 50 U/L (23-300)
[2024-02-06 17:49] LABS: Iron 57 ug/dL (37-170)
[2024-02-06 17:59] LABS: Percent Iron Saturation 17 % (20-50)
[2024-02-06 18:21] LABS: Hepatitis B Surface Antigen Negative (Negative)
[2024-02-06 18:27] LABS: HAV RESULT Negative (Negative); Hepatitis B Core IgM Result Negative (Negative)
[2024-02-06 18:38] LABS: Hepatitis C Virus Antibody Negative (Negative)
[2024-02-08 10:39] LABS: Ceruloplasmin 36 mg/dL (14-48)
[2024-02-09 12:53] LABS: Anti Nuclear Antibody Pattern Nuclear, Homogeneous
[2024-02-10 10:03] LABS: Immunoglobulin G, Serum 664 mg/dL (600-1640); Immunoglobulin G1 283 mg/dL (382-929); Immunoglobulin G2 298 mg/dL (241-700); Immunoglobulin G3 31 mg/dL (22-178); Immunoglobulin G4 26.2 mg/dL (4.0-86.0)
[2024-02-14 09:08] LABS: Mitochondrial (M2) Ab (IgG) <20.0 U
[2024-02-14 22:59] LABS: LKM 1 Antibody <=20.0 U (<=20.0)
== END 2024-02-06 16:53 | disposition home or self-care (01) ==
LOC: ANHLAB 16:53
PROVIDERS: PCP Nurse Practitioner Family; Visit Provider Nurse Practitioner Family
DX: R74.8 Abnormal levels of other serum enzymes (principal); R94.5 Abnormal results of liver function studies; R79.89 Other specified abnormal findings of blood chemistry; K31.5 Obstruction of duodenum
CPT/HCPCS: 36415; 80074; 82390; 82728; 82784; 82787; 82977; 83520; 83540; 83550; 83690; 86038; 86039; 86376

== ENCOUNTER 2024-03-21 17:19 | Emergency (ER) | payer OTHER, SELFPAY ==
[2024-03-21 17:31] VITALS: BP 118/77; PULSE 70; RESP 16; TEMP 36.7; O2SAT 100
--- NOTE | 2024-03-21 17:35 | ED.URI ---
HPI - URI/Sore Throat General Chief Complaint: Upper Respiratory Infection Stated Complaint: trouble breathing/headaches Source: patient Mode of arrival: ambulatory Limitations: no limitations History of Present Illness HPI Narrative: Chrissy is a 53-year-old female with a history of asthma who presents with complaints of chest tightness and a cough x1 week. She states she feels like she is having an asthma flare-up and has been using her albuterol inhaler/nebulizer at home but her symptoms have not improved. She has also been taking dywf-jmp-dyaveem Zyrtec and Flonase. She denies any sick contacts. She denies fevers/chills, shortness of breath, or sore throat. Related Data Home Medications Medication Instructions Recorded Confirmed omega 4-nan-dzc-fish oil 1,000 mg 2 cap PO DAILY 05/26/23 03/21/24 (120 mg-180 mg) capsule (Fish Oil) Allergies Allergy/AdvReac Type Severity Reaction Status Date / Time Penicillins Allergy Severe Hives Verified 01/05/24 14:47 adhesive tape Allergy Intermediate Blister Verified 01/05/24 14:47 amlodipine Allergy Intermediate Hives Verified 01/05/24 14:47 Sulfa (Sulfonamide Allergy Intermediate Hives Verified 01/05/24 14:47 Antibiotics) tamoxifen Allergy Intermediate Hives Verified 01/05/24 14:47 Review of Systems Review of Systems: CONSTITUTIONAL: Denies body aches, fever, chills, or sweats. EYES: Denies visual changes, redness, or discharge. ENT: Denies rhinorrhea, congestion, sore throat, or otalgia. CARDIOVASCULAR: Denies chest pain, palpitations, or edema. RESPIRATORY: Reports chest tightness and cough. Denies dyspnea or wheezing. GASTROINTESTINAL: Denies abdominal pain, nausea, vomiting, or diarrhea. SKIN: Denies rash, itching, or wounds. MUSCULOSKELETAL: Denies back pain, joint pain, or myalgia. NEUROLOGIC: Reports headache. Denies numbness, tingling, or weakness. All systems reviewed & are unremarkable except as noted in HPI and below PMFSH Past Medical History Medical History Anxiety Asthma Bradycardia Cervical radiculitis COVID-19 Depression Duodenal papillary stenosis Elevated troponin GERD (gastroesophageal reflux disease) Hx of migraines Hyperlipidemia Hypertension Insomnia Low back pain radiating to right leg (normal spontaneous vaginal delivery) x2 LEX (obstructive sleep apnea) With CPAP Otitis externa Pseudoangiomatous stromal hyperplasia of breast 2012 Rash and nonspecific skin eruption Takotsubo cardiomyopathy (02/2022) Urinary incontinence Surgical History Surgical History H/O breast biopsy H/O colonoscopy July 2024 H/O oophorectomy History of biliary duct stent placement History of bowel resection (~2007) small intestine Hx of appendectomy S/P laparoscopic cholecystectomy Status post laser cataract surgery of right eye X2 Family History Family History Mother Breast cancer Father Throat cancer Social History Social History Social History: Lifelong nonsmoker. Denies alcohol or drug use. Lives at home with her and her teenaged biological daughter. They also have 3 cats. She has a 2nd child who is older and has moved out. She is a full code. She nominates Cesia to be the individual to make medical decisions for her she is unable. Smoking status: Never smoker Second hand tobacco smoke exposure: No Alcohol intake: never Substance use: never Substance use type: does not use Do You Feel Safe in your Home?: Yes Lack of Transportation: No Lack of Food: Never True Current Housing: I Have Housing Concerned About Future Housing: No Difficulty Paying Gas/Electric Bills: No Difficulty Paying for Meds: No Currently Unemployed: Decline to Answer Education: High Sc
[2024-03-21] MEDS: methylPREDNISolone SOD SUCC 125 MG VIAL IM (17:46)
== END 2024-03-21 17:56 | disposition home or self-care (01) ==
PROVIDERS: Emergency Provider Nurse Practitioner Family; PCP Nurse Practitioner Family
DX: J45.901 Unspecified asthma with (acute) exacerbation (principal); K21.9 Gastro-esophageal reflux disease without esophagitis; E78.5 Hyperlipidemia, unspecified; I10 Essential (primary) hypertension; G47.33 Obstructive sleep apnea (adult) (pediatric); Z86.16 Personal history of COVID-19
CPT/HCPCS: 96372; 99213; G0463; J2919

== ENCOUNTER 2024-04-09 09:53 | Emergency (ER) | payer OTHER, SELFPAY ==
--- NOTE | 2024-04-09 09:57 | ECG_ITS ---
Test Date: 2024-04-09 10:04:49 Measurements Intervals [place] Rate: 54 P: 56 ME: 160 QRS: -3 QRSD: 98 T: 27 QT: 438 QTc: 419 Interpretive Statements SINUS BRADYCARDIA No previous ECG available for comparison Electronically Signed On 04-10-2024 10:13:30 CDT by Oliverio Silva M.D.
[2024-04-09 09:58] VITALS: BP 173/84; PULSE 56; RESP 20; TEMP 36.6; O2SAT 100
--- NOTE | 2024-04-09 10:29 | ED.CHESTPAIN ---
HPI - Chest Pain General Chief Complaint: Chest Pain Stated Complaint: Shortness of Breath/Chest Pain Time Seen by Provider: 04/09/24 10:00 Source: patient Mode of arrival: ambulatory Limitations: no limitations History of Present Illness HPI narrative: 53-year-old female with history of cardiomyopathy presents with complaint of chest tightness, shortness of breath, lower extremity swelling. Patient reports that she has felt well for the past month. Was seen at [facility] approximately 3 weeks ago with shortness of breath. Patient assumed it was from her asthma. States that she did prednisone with no change in symptoms. Shortness of breath getting increasingly worse with chest tightness and lower extremity swelling started 1 week ago. Patient states today she is feeling fatigued and lightheaded. Had to leave work early. No URI symptoms. All systems reviewed and negative except as noted above. Related Data Home Medications Medication Instructions Recorded Confirmed omega 6-yaj-ujo-fish oil 1,000 mg 2 cap PO DAILY 05/26/23 04/09/24 (120 mg-180 mg) capsule (Fish Oil) Allergies Allergy/AdvReac Type Severity Reaction Status Date / Time Penicillins Allergy Severe Hives Verified 04/09/24 09:57 adhesive tape Allergy Intermediate Blister Verified 04/09/24 09:57 amlodipine Allergy Intermediate Hives Verified 04/09/24 09:57 Sulfa (Sulfonamide Allergy Intermediate Hives Verified 04/09/24 09:57 Antibiotics) tamoxifen Allergy Intermediate Hives Verified 04/09/24 09:57 Review of Systems Review of Systems: CONSTITUTIONAL: Denies fever, chills, or sweats. EYES: Denies visual changes, redness, or discharge. ENT: Denies rhinorrhea, congestion, sore throat, or otalgia. CARDIOVASCULAR: Reports chest pain, lower extremity swelling. Denies palpitations. RESPIRATORY: Denies cough. Reports dyspnea. GASTROINTESTINAL: Denies abdominal pain, nausea, vomiting, or diarrhea. GENITOURINARY: Denies dysuria or hematuria. SKIN: Denies rash or itching. MUSCULOSKELETAL: Denies back pain, joint pain, or myalgia. NEUROLOGIC: Denies headache, numbness, or weakness. PSYCHIATRIC: Denies anxiety or depression. All other systems reviewed are negative, except as documented in HPI. [facility] Past Medical History Medical History Anxiety Asthma Bradycardia Cervical radiculitis COVID-19 Depression Duodenal papillary stenosis Elevated troponin GERD (gastroesophageal reflux disease) Hx of migraines Hyperlipidemia Hypertension Insomnia Low back pain radiating to right leg (normal spontaneous vaginal delivery) x2 LEX (obstructive sleep apnea) With CPAP Otitis externa Pseudoangiomatous stromal hyperplasia of breast 2012 Rash and nonspecific skin eruption Takotsubo cardiomyopathy (02/2022) Urinary incontinence Surgical History Surgical History H/O breast biopsy H/O colonoscopy July 2024 H/O oophorectomy 1989' History of biliary duct stent placement History of bowel resection (~2007) small intestine Hx of appendectomy S/P laparoscopic cholecystectomy Status post laser cataract surgery of right eye X2 Family History Family History Mother Breast cancer Father Throat cancer Social History Social History Social History: Lifelong nonsmoker. Denies alcohol or drug use. Lives at home with her and her teenaged biological daughter. They also have 3 cats. She has a 2nd child who is older and has moved out. She is a full code. She nominates Cesia to be the individual to make medical decisions for her she is unable. Smoking status: Never smoker Second hand tobacco smoke exposure: No Alcohol intake: never Substance use: never Substance use type: does not use Do You Feel Safe in your Home?
== END 2024-04-09 10:20 | disposition short-term general hospital (02) ==
PROVIDERS: Emergency Provider Nurse Practitioner Family
DX: R06.00 Dyspnea, unspecified (principal); R07.9 Chest pain, unspecified; R60.0 Localized edema; J45.909 Unspecified asthma, uncomplicated; K21.9 Gastro-esophageal reflux disease without esophagitis; E78.5 Hyperlipidemia, unspecified; I10 Essential (primary) hypertension; G47.33 Obstructive sleep apnea (adult) (pediatric); Z86.16 Personal history of COVID-19; I51.81 Takotsubo syndrome
CPT/HCPCS: 93005; 99213; G0463

== ENCOUNTER 2024-04-27 10:21 | Outpatient (CLI) | payer OTHER, SELFPAY ==
--- NOTE | ~2024-04-27 | XR_ITS ---
Clinical Indication: Cough PA and lateral views of the chest: Comparison: 08/21/2022 Findings: The lungs are clear, without evidence of focal consolidation or pleural effusion. Cardiome diastinal silhouette is within normal limits. Bones and soft tissues are unremarkable. Impression: Normal chest. Reviewed, dictated and finalized at location . Impression: Normal chest.
== END 2024-04-27 10:22 | disposition home or self-care (01) ==
LOC: ANHIMG 10:24
PROVIDERS: PCP Nurse Practitioner Family; Visit Provider Nurse Practitioner Family
DX: R05.9 Cough, unspecified (principal); J45.909 Unspecified asthma, uncomplicated; I51.81 Takotsubo syndrome
CPT/HCPCS: 71046

== ENCOUNTER 2024-05-21 11:48 | Emergency (ER) | payer OTHER, SELFPAY ==
[2024-05-21 11:57] VITALS: BP 151/86; PULSE 67; RESP 20; TEMP 36.6; O2SAT 100
--- NOTE | 2024-05-21 13:25 | ED.ABDPAIN ---
HPI - Abdominal Pain General Chief Complaint: Abdominal Pain Stated Complaint: abd pain Time Seen by Provider: 05/21/24 13:25 Focused HPI: This is a 53-year-old female that presents to the emergency department for right upper quadrant abdominal pain. Worsening since this morning. Reports associated nausea. Reports problems with her bile ducts. Reports she has had to have them cleaned out several times and has had a stent before. Denies fevers or vomiting. GENERAL: Well-appearing, well-nourished, and in no acute distress. HEAD: Normocephalic, atraumatic. CHEST: Clear to auscultation. ?No respiratory distress. HEART: Regular rate and rhythm.? NEURO: ?Alert and oriented x3. Patient screened in triage and initial orders placed.? ?Additional care and disposition to be based upon?diagnostic testing and treatment. Related Data Home Medications Medication Instructions Recorded Confirmed omega 5-krm-dpo-fish oil 1,000 mg 2 cap PO DAILY 05/26/23 05/16/24 (120 mg-180 mg) capsule (Fish Oil) Allergies Allergy/AdvReac Type Severity Reaction Status Date / Time Penicillins Allergy Severe Hives Verified 05/21/24 11:53 adhesive tape Allergy Intermediate Blister Verified 05/21/24 11:53 amlodipine Allergy Intermediate Hives Verified 05/21/24 11:53 Sulfa (Sulfonamide Allergy Intermediate Hives Verified 05/21/24 11:53 Antibiotics) tamoxifen Allergy Intermediate Hives Verified 05/21/24 11:53 PMFSH Past Medical History Medical History Anxiety Asthma Bradycardia Cervical radiculitis Cough COVID-19 Depression Duodenal papillary stenosis Elevated troponin GERD (gastroesophageal reflux disease) Hx of migraines Hyperlipidemia Hypertension Insomnia Low back pain radiating to right leg (normal spontaneous vaginal delivery) x2 LEX (obstructive sleep apnea) With CPAP Otitis externa Pseudoangiomatous stromal hyperplasia of breast 2012 Rash and nonspecific skin eruption Takotsubo cardiomyopathy (02/2022) Urinary incontinence Surgical History Surgical History H/O breast biopsy H/O colonoscopy July 2024 H/O oophorectomy History of biliary duct stent placement History of bowel resection (~2007) small intestine Hx of appendectomy S/P laparoscopic cholecystectomy Status post laser cataract surgery of right eye X2 Family History Family History Mother Breast cancer Father Throat cancer Social History Social History Social History: Lifelong nonsmoker. Denies alcohol or drug use. Lives at home with her and her teenaged biological daughter. They also have 3 cats. She has a 2nd child who is older and has moved out. She is a full code. She nominates Cesia to be the individual to make medical decisions for her she is unable. 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 Gender identity (if verbalized by the patient): Female Sexual Orientation (if Verbalized by the Patient): Lesbian, Smith, or Homosexual Spiritual care concerns: No Course Course Emergency Course: Patient left after being seen
[2024-05-21 13:55] LABS: Basophils Percent Auto 0.5 % (0.2-1.2); Eosinophils Absolute Auto 0.1 K/mm3 (0-0.3); Eosinophils Percent Auto 2.4 % (0-4.4); Hematocrit 39.8 % (37.0-47.0); Hemoglobin 13.8 g/dL (12.0-15.0); Immature Granulocyte Absolute 0.02 K/mm3 (0.00-0.031); Immature Granulocyte Percent A 0.3 % (0-0.5); Lymphocytes Absolute Auto 0.98 K/mm3 (0.9-3.2); Lymphocytes Percent Auto 16.6 % (18.3-44.2); Mean Corpuscular HGB Conc 34.7 g/dl (32-36); Mean Corpuscular Hemoglobin 30.3 pg (26-34); Mean Corpuscular Volume 87.3 fl (80-100); Mean Platelet Volume 8.9 fl (7.4-10.4); Monocytes Absolute Auto 0.4 K/mm3 (0.1-0.6); Monocytes Percent Auto 6.3 % (2.6-8.5); Neutrophils Absolute Auto 4.4 K/mm3 (1.3-6.7); Neutrophils Percent Auto 73.9 % (45.5-73.1); Platelet Count Result 326 k/mm3 (150-375); Red Blood Count 4.56 M/mm3 (4.2-5.4); Red Cell Distribution Width 12.8 % (11.5-14.5); White Blood Count 5.9 K/mm3 (4.5-10.0)
[2024-05-21 14:07] LABS: Alanine Aminotransferase 33 U/L (6-35); Albumin Level 4.9 g/dL (3.5-5.1); Alkaline Phosphatase 141 U/L (38-126); Anion Gap 10 mmol/L (4-12); Aspartate Amino Transferase 43 U/L (14-36); Blood Urea Nitrogen 9 mg/dL (7-17); Calcium 9.8 mg/dL (8.4-10.2); Carbon Dioxide 22 mmol/L (22-30); Chloride 106 mmol/L (98-107); Estimated CRCL calculation 87 ml/min; Estimated Glomerular Filt Rate > 60; Glucose 100 mg/dL (65-110); Lipase 52 U/L (23-300); Sodium 138 mmol/L (137-145)
[2024-05-21 16:02] LABS: Add Urine Microscopic? YES; Appearance Urine Clear (Clear); Bacteria Urine None Seen /hpf; Bilirubin Urine Negative (Negative); Blood Urine Negative (Negative); Color Urine Yellow (Yellow); Glucose Urine UA Negative (Negative); Ketones Urine Negative (Negative); Leukocyte Esterase Ur Trace LEU/UL (Negative); Nitrate Urine Negative (Negative); Non Pathogenic Casts 0-2; Protein Urine Negative (Negative); RBC Urine 0-2 /hpf (0-2); Specific Grav Ur 1.015 (1.001-1.035); Squamous Epithelial Cell Urine Occasional /hpf (Few); Urobilinogen Urine 0.2 mg/dL (<2.0); WBC Urine 0-5 /hpf (0-3); pH Urine 7.5 (5.0-9.0)
== END 2024-05-21 18:00 | disposition left against medical advice (07) ==
PROVIDERS: Emergency Provider Physician Assistant; PCP Nurse Practitioner Family
DX: R10.11 Right upper quadrant pain (principal); I10 Essential (primary) hypertension; E78.5 Hyperlipidemia, unspecified; J45.909 Unspecified asthma, uncomplicated; G47.33 Obstructive sleep apnea (adult) (pediatric); R32 Unspecified urinary incontinence; K21.9 Gastro-esophageal reflux disease without esophagitis; F41.9 Anxiety disorder, unspecified; F32.A Depression, unspecified; Z90.49 Acquired absence of other specified parts of digestive tract; Z98.41 Cataract extraction status, right eye; Z79.899 Other long term (current) drug therapy
CPT/HCPCS: 36415; 80053; 81001; 83690; 85025; 99283

== ENCOUNTER 2024-06-26 08:43 | Outpatient (CLI) | payer OTHER, SELFPAY ==
--- NOTE | 2024-06-26 08:50 | ECHO_ITS ---
Patient Info Name: Chrissy Kilgore Age: 54 years : 1970 Gender: Female Ht: 66 in Wt: 184 lbs BSA: 2.00 m2 HR: 57 bpm BP: 108 / 67 mmHg Technical Quality: Fair Exam Date: 06/26/2024 9:09 AM Exam Location: Echo Lab Patient Status: Outpatient Admit Date: 06/26/2024 Staff Ordering Physician: Leon Mora DO Paint Striping Machine Operator: Cleo Medina RDCS Attending Provider: Leon Mora DO Referring Physician: Morgan HARE; Exam Type: CA echo dop color flow w con Study Info Indications I51.81 - TAKOTSUBO SYNDROME Complete two-dimensional, color flow and Doppler transthoracic echocardiogram is performed with contrast to opacify the left ventricle and to improve the deliniation of the left ventricle endocardial borders. Contrast/Agitated Saline Contrast/Ag. Saline: Definity Amount: 2.00 ml Administered By: Cleo Medina RDCS New IV Access: Dorsum of Hand and Right Site Condition: No extravasation, Site dressing applied and IV removed Summary 1. Definity contrast administered improved wall motion interpretation. 2. Left ventricular chamber dimension is mildly enlarged. 3. Left ventricular systolic function is normal, estimated at 55-60%. 4. The left ventricular diastolic function is grade II diastolic dysfunction. 5. E/e' 12 is mildly elevated. 6. Left atrial chamber dimension is mildly enlarged. 7. There is mild mitral valve regurgitation. 8. No pulmonary hypertension, estimated pulmonary arterial systolic pressure is 25 mmHg. Left Ventricle E/e' 12 is mildly elevated. Definity contrast administered improved wall motion interpretation. Left ventricular chamber dimension is mildly enlarged. Left ventricular systolic function is normal, estimated at 55-60%. The left ventricular diastolic function is grade II diastolic dysfunction. Right Ventricle Right ventricular chamber dimension is normal. Right ventricular systolic function is normal. Left Atria Left atrial chamber dimension is mildly enlarged. Right Atria Right atrial chamber dimension is normal. Aortic Valve The aortic valve is trileaflet. There is no aortic valve stenosis. There is no aortic valve regurgitation. Pulmonic Valve There is no pulmonic regurgitation. Mitral Valve There is no mitral valve stenosis. There is mild mitral valve regurgitation. Tricuspid Valve There is no tricuspid valve regurgitation. No pulmonary hypertension, estimated pulmonary arterial systolic pressure is 25 mmHg. Pericardium/Pleural There is no pericardial effusion. Inferior Vena Cava Normal inferior vena cava with >50% collapse upon inspiration consistent with normal right atrial pressure, 5 mmHg. Aorta The aortic root size at the sinus of Valsalva is normal. Left Ventricular Outflow Tract Name Value Normal LVOT 2D LVOT Diameter 1.87 cm LVOT Doppler LVOT Peak Gradient 6 mmHg LVOT Mean Gradient 4 mmHg LVOT VTI 27.81 cm LVOT VTI/AV VTI Ratio 0.78 LVOT Stroke Volume 76.03 ml LVOT CO 3.95 l/min LVOT CI 1.98 L/min/m2 Pulmonic Valve Name Value Normal RVOT Doppler RVOT Peak Gradient 2 mmHg PV Doppler PV Peak Gradient 4 mmHg Mitral Valve Name Value Normal MV Doppler MV Decel Ceiba 513.54 cm/s2 MV PHT 0 s MV Area (PHT) 3.36 cm2 4.00-5.00 MV Diastolic Function MV E Peak Velocity 116.02 cm/s MV A Peak Velocity 81.11 cm/s MV E/A 1.43 MV Decel Time 0 s Tricuspid Valve Name Value Normal TV Regurgitation Doppler TR Peak Velocity 221.80 cm/s TR Peak Gradient 19 mmHg Estimated PAP/RSVP RA Pressure 5 mmHg <=5 PA Systolic Pressure 25 mmHg <36 RV Systolic Pressure 25 mmHg <36 Aorta Name Value Normal Ascending Aorta Ao Root Diameter (MM) 2.51 cm Ao Root Diam Index (MM) 1.26 cm/m2 Aortic Valve Name Value Normal AV Doppler AV Peak Velocity 163.89 cm/s AV Peak Gradient 11 mmHg AV Mean Gradient 6 mmHg AV VTI 35.69 cm AV Area (Cont Eq VTI) 2.13 cm2 >=3.00 AV Area (Cont Eq [place]) 2.02 cm2 AV Regurgitation 2D LVOT Area 2.73 cm2 Ventricles Name Value Normal LV Dimensions 2D/MM IVS Diastolic Thickness (2D) 0.52 cm 0.60-1.00 IVS Diastole Thickness (MM) 0.83 cm 0.60-0.90 LVID Diastole (2D) 5.32 cm 3.80-5.20 LVID Diastole (MM) 5.57 cm 3.80-5.20 LVIW Diastolic Thickness (2D) 0.93 cm 0.60-0.90 LVIW Diastolic Thickness (MM) 0.86 cm 0.60-0.90 LVID Systole (2D) 3.64 cm 2.20-3.50 LVID Systole (MM) 3.65 cm 2.20-3.50 LVOT Diameter 1.87 cm LV Mass (2D Cubed) 133.17 g 67.00-162.00 LV Mass Index (2D Cubed) 0.01 g/cm2 0.00-0.01 Relative Wall Thickness (2D) 0.35 LV Mass (MM Cubed) 174.75 g 67.00-162.00 LV Mass Index (MM Cubed) 0.01 g/cm2 0.00-0.01 Relative Wall Thickness (MM) 0.31 LV Fractional Shortening/Ejection Fraction 2D/MM LV Fractional Shortening (2D) 32 % 27-45 LV Fractional Shortening (MM) 35 % 27-45 LV EF (MM Teicholz) 63 % 54-74 LV EF (2D Teicholz) 59 % 54-74 LV Diastolic Volume (4C MOD) 114.65 ml LV EF (4C MOD) 72 % LV Diastolic Volume (2C MOD) 97.55 ml LV EF (2C MOD) 45 % LV Diastolic Volume (BP MOD) 109.45 ml 46.00-106.00 LV Diastolic Volume Index (BP MOD) 0.05 l/m2 0.03-0.06 LV Systolic Volume (BP MOD) 42.11 ml 14.00-42.00 LV Systolic Volume Index (BP MOD) 0.02 l/m2 0.01-0.02 LV EF (BP MOD) 62 % 54-74 LV Diastolic Length (4C) 7.44 cm LV Systolic Length (4C) 6.36 cm LV Stroke Volume (4C MOD) 82.32 ml Atria Name Value Normal LA Dimensions LA Dimension (MM) 3.80 cm 2.70-3.80 LA Volume (4C A-L) 48.96 ml LA Volume (BP A-L) 49.19 ml RA Dimensions RA Area (4C) 8.57 cm2 <=18.00 Report Signatures
[2024-06-26] MEDS: PERFLUTREN LIPID MICROSPHERES 1.5 ML VIAL DILUTED TO 10 ML TOTAL VOLUME IV PUSH (09:50)
--- NOTE | 2024-06-26 10:27 | IVDEFINITY ---
Prior to administration of IV Definity the patient was educated on the risks and benefits of the imaging enhancing agent including potential adverse side effects. The patient verbalized understanding. Allergies were verified. No exclusion criteria were identified and at least one of the following inclusion criteria were met: 1) physician request, 2) patient technically difficult to image (per the [place] [employer] Echocardi[employer] guidelines of two or more segments not discernable within the apical view), or 3) questionable left ventricular function. ?
== END 2024-06-26 08:44 | disposition home or self-care (01) ==
LOC: ANHCARD 08:44
PROVIDERS: PCP Nurse Practitioner Family; Visit Provider Internal Medicine Cardiovascular Disease
DX: I51.81 Takotsubo syndrome (principal); I51.89 Other ill-defined heart diseases; I51.7 Cardiomegaly; I34.0 Nonrheumatic mitral (valve) insufficiency
CPT/HCPCS: C8929; Q9957

== ENCOUNTER 2024-08-06 14:55 | Emergency (ER) | payer OTHER, SELFPAY ==
[2024-08-06 15:08] VITALS: BP 147/76; PULSE 59; RESP 16; TEMP 36.6; O2SAT 100
--- NOTE | 2024-08-06 15:46 | ED.NAVMDI ---
HPI - Nausea/Vomiting/Diarrhea General Chief complaint: Nausea/Vomiting/Diarrhea Stated complaint: Diarrhea/Vomiting/Nausea Time Seen by Provider: 08/06/24 15:46 Source: patient and RN notes reviewed Mode of arrival: ambulatory Limitations: no limitations History of Present Illness HPI Narrative: 54-year-old female presented for complaint of vomiting and diarrhea. Onset today. Also reports bilateral ear pressure and nasal congestion which she has chronically. States is worse over the past few days. Denies shortness of breath, wheezing, Abdominal pain, hematochezia, melena, fever chills. history of abdominal surgeries including bowel resection. Related Data Home Medications ?Medication ?Instructions ?Recorded ?Confirmed ?Last Taken ?Type omega 2-aex-txl-fish oil 1,000 mg 2 cap PO DAILY 05/26/23 08/06/24 07/19/23 History (120 mg-180 mg) capsule (Fish Oil) Allergies Allergy/AdvReac Type Severity Reaction Status Date / Time Penicillins Allergy Severe Hives Verified 05/21/24 11:53 adhesive tape Allergy Intermediate Blister Verified 05/21/24 11:53 amlodipine Allergy Intermediate Hives Verified 05/21/24 11:53 Sulfa (Sulfonamide Allergy Intermediate Hives Verified 05/21/24 11:53 Antibiotics) tamoxifen Allergy Intermediate Hives Verified 05/21/24 11:53 Review of Systems Review of Systems: CONSTITUTIONAL: Denies body aches, fever, chills ENT: reports rhinorrhea, congestion CARDIOVASCULAR: Denies chest pain, palpitations, or edema. RESPIRATORY: Denies cough or dyspnea. GASTROINTESTINAL: Endorses nausea, vomiting, diarrhea. Denies abdominal pain, hematochezia, melena, hematemesis GENITOURINARY: Denies dysuria, hematuria, or CVA tenderness. SKIN: Denies rash MUSCULOSKELETAL: Denies back pain, joint pain, or myalgia. NEUROLOGIC: Denies headache. All systems reviewed & are unremarkable except as noted in HPI and below PMFSH Past Medical History Medical History Cough Duodenal papillary stenosis Otitis externa Insomnia Rash and nonspecific skin eruption Low back pain radiating to right leg Cervical radiculitis Urinary incontinence COVID-19 Takotsubo cardiomyopathy (02/2022) LEX (obstructive sleep apnea) With CPAP Elevated troponin Bradycardia (normal spontaneous vaginal delivery) x2 Pseudoangiomatous stromal hyperplasia of breast 2012 Depression Anxiety GERD (gastroesophageal reflux disease) Hypertension Hyperlipidemia Hx of migraines Asthma Surgical History Surgical History History of biliary duct stent placement H/O colonoscopy July 2024 Status post laser cataract surgery of right eye X2 H/O breast biopsy History of bowel resection (~2007) small intestine S/P laparoscopic cholecystectomy H/O oophorectomy Hx of appendectomy Family History Family History Mother Breast cancer Father Throat cancer Social History Social History Social History: Lifelong nonsmoker. Denies alcohol or drug use. Lives at home with her and her teenaged biological daughter. They also have 3 cats. She has a 2nd child who is older and has moved out. She is a full code. She nominates Cesia to be the individual to make medical decisions for her she is unable. 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 Gender identity (if verbalized by the patient): Female Sexual Orientation (if Verbalized by the Patient): Lesbian, Smith, or Homosexual Spiritual care concerns: No Comments At time of signature, I have reviewed and agree with nursing past medical, surgical, social and family history unless otherwise noted. Please see nursing chart for further information. There is no relevant family history pertinent to the presenting complaint Exam Narrative: GENERAL: Well-appearing, and in no acute distress. EYES: EOMI. Conjunctivae normal. ENT: Mucous membranes pink and moist. nasal congestion. TMs normal bilaterally. CHEST: No respiratory distress. Clear to auscultation. HEART: Regular rate and rhythm. No murmur appreciated. Normal peripheral pulses. ABDOMEN: abd soft, nondistended, normal active bowel sounds. nontender abdomen; No guarding, rebound tenderness, asymmetry SKIN: Warm, dry, no rash. Capillary refill normal. Normal skin turgor. NEURO: No focal deficits. Alert and oriented x3. PSYCH: Normal affect. Course Course Emergency Course: Patient is aware of diagnosis, understands and agrees to treatment plan. Anticipatory guidance given. Patient agrees to follow-up as directed and is aware of reasons to seek care at the emergency department. Portions of this record may have been created with voice recognition software Level of Care: Express Care Visit Vital Signs Vital signs: Vital Signs Temperature 97.9 F 08/06/24 15:08 Pulse Rate 59 L 08/06/24 15:08 Respiratory Rate 16 08/06/24 15:08 Blood Pressure 147/76 H 08/06/24 15:08 Pulse Oximetry 100 08/06/24 15:08 Oxygen Delivery Room Air 08/06/24 15:08 Temperature 97.9 F 08/06/24 15:08 Pulse Rate 59 L 08/06/24 15:08 Respiratory Rate 16 08/06/24 15:08 Blood Pressure 147/76 H 08/06/24 15:08 Pulse Oximetry 100 08/06/24 15:08 Oxygen Delivery Room Air 08/06/24 15:08 MDM - Nausea/Vomiting/Diarrhea MDM Narrative Medical decision making narrative: Discussed physical exam findings, pt . Advised supportive measures and signs/symptoms to go to the ER. Pt is appropriate for outpt treatment and f/u. Differential Diagnosis Differential diagnosis: Likely traveler's diarrhea, food poisoning, gastroenteritis, drug-induced nausea and vomiting and dehydration Discharge Plan Discharge Clinical Impression: Nausea, vomiting and diarrhea Upper respiratory infection Qualifiers: URI type: unspecified URI Qualified Code(s): J06.9 - Acute upper respiratory infection, unspecified Patient Disposition: Home, Self-Care Condition: Stable Instructions: Antibiotic Form, Gastroenteritis (ED), Rhinosinusitis (ED) Additional Instructions: Nasal congestion: Recommend Flonase spray and Zyrtec (or Claritin/Onelia) over the counter Cough syrup may cause drowsiness; avoid driving or take it at night time. Tylenol 1000mg every 8 hours as needed for pain Symptomatic treatment includes: rest, fluids, and increase humidity of the air at home. Vomiting/diarrhea: Stay hydrated. Take small sips of fluid containing electrolytes frequently. Clear liquids (broth, jello, tea, sprite, pedialyte) [place] foods (bananas, rice, applesauce, toast, crackers) Avoid fatty, greasy, fried or spicy foods. Limit dairy until symptoms are improved. [id number] Imodium according to package directions for severe diarrhea Recommend probiotic such as align or lactobacillus to help with symptoms. You should go to the hospital if you experience persistent nausea and vomiting that does not resolve and does not allow you to tolerate any food or fluids, fevers, increasing abdominal pain, persistent diarrhea, or for any other concerns. Follow up with primary care provider in 3 days. Patient Language: [place] Prescriptions: New ondansetron 4 mg tablet,disintegrating 4 mg PO Q8H PRN (Reason: nausea and vomiting) Qty: 8 0RF doxycycline hyclate 100 mg tablet 100 mg PO BID 7 Days Qty: 14 0RF No Action sertraline 100 mg tablet 100 mg PO DAILY Qty: 30 11RF omega 2-xol-jeo-fish oil [Fish Oil] 1,000 mg (120 mg-180 mg) capsule 2 cap PO DAILY budesonide-formoterol [Symbicort] 80-4.5 mcg/actuation HFA aerosol inhaler 2 puff inhalation Q12H Qty: 10.2 2RF bupropion HCl [Wellbutrin XL] 300 mg tablet extended release 24 hr 300 mg PO QAM Qty: 30 11RF lorazepam 0.5 mg tablet 0.5 mg PO DAILY PRN (Reason: anxiety) Qty: 30 5RF levalbuterol HCl 1.25 mg/3 mL solution for nebulization 1.25 mg inhalation TID PRN (Reason: Shortness Of Breath Or Wheezing) Qty: 90 3RF montelukast [Singulair] 10 mg tablet 10 mg PO HS Qty: 90 3RF Entresto 24-26 mg tablet See Rx Instructions .ROUTE .COMPLEX Qty: 60 5RF Dose Instruction: TAKE 1 TABLET BY MOUTH EVERY 12 HOURS Rx Instructions: TAKE 1 TABLET BY MOUTH EVERY 12 HOURS amitriptyline 10 mg tablet 10 mg PO QHS Qty: 90 1RF pantoprazole 40 mg tablet,delayed release (DR/EC) 40 mg PO QAM Qty: 90 3RF albuterol sulfate 90 mcg/actuation HFA aerosol inhaler 1 - 2 inh inhalation Q4-6H PRN (Reason: shortness of breath or wheezing) Qty: 8.5 2RF carvedilol 3.125 mg tablet See Rx Instructions .ROUTE .COMPLEX Qty: 180 2RF Dose Instruction: TAKE 1 TABLET BY MOUTH EVERY 12 HOURS WITH FOOD Rx Instructions: TAKE 1 TABLET BY MOUTH EVERY 12 HOURS WITH FOOD fluconazole 150 mg tablet 150 mg PO ONCE Qty: 1 0RF Rx Instructions: as a single dose docusate sodium [Colace] 100 mg capsule 100 mg PO BID Qty: 180 3RF tizanidine 4 mg tablet 4 mg PO Q8H PRN (Reason: muscle spasticity) Qty: 90 1RF cetirizine [Zyrtec] 10 mg tablet 10 mg PO DAILY Qty: 90 3RF Follow-up/Referrals: Ramonita Crawford NP [Primary Care Provider] - Stand Alone Forms: Work/School Release IP Time of Disposition: 15:57
== END 2024-08-06 16:03 | disposition home or self-care (01) ==
PROVIDERS: Emergency Provider Nurse Practitioner Family; PCP Nurse Practitioner Family
DX: R11.2 Nausea with vomiting, unspecified (principal); R19.7 Diarrhea, unspecified; J06.9 Acute upper respiratory infection, unspecified; G47.33 Obstructive sleep apnea (adult) (pediatric); I10 Essential (primary) hypertension; E78.5 Hyperlipidemia, unspecified; J45.909 Unspecified asthma, uncomplicated
CPT/HCPCS: 99213; G0463

== ENCOUNTER 2024-08-28 08:10 | Emergency (ER) | payer OTHER, SELFPAY ==
--- NOTE | ~2024-08-28 | XR_ITS ---
XR chest 2V Ordering provider: Joy Villegas NP History: 54 years Female with . cough increased 5 days . Comparison: April 27, 2024 FINDINGS: MEDIASTINUM: The cardiac silhouette is not enlarged. LUNGS: No infiltrates, effusions or pneumothorax. OTHER: No free air under the diaphragm. IMPRESSION: No acute cardiopulmonary pathology. Reviewed, dictated and finalized at location A. N RESOURCES TALENT MANAGER
[2024-08-28 08:16] VITALS: BP 172/94; PULSE 94; RESP 20; TEMP 36.2; O2SAT 100
--- NOTE | 2024-08-28 08:17 | ED_ITS ---
HPI - URI/Sore Throat General Chief Complaint: Upper Respiratory Infection Stated Complaint: cough/chest burning Time Seen by Provider: 08/28/24 08:17 Source: patient, RN notes reviewed and old records reviewed Mode of arrival: ambulatory Limitations: no limitations History of Present Illness HPI Narrative: 54 year old female presents to the [facility] care with complaints of cough, headache, congestion and dyspnea with increase for the past 5 days. Patient reports that she did Albuterol during the night but did not repeat this morning she states 'it didn't help'.Patient states that she has had especially increased symptoms for 3 days. Patient reports that she has not been able to work for the past 2 day due to her cough and wheezing, denies any fevers. Patient did receive antibiotics of Doxycycline on the 07 of August she repots for sinus infection. MD elicited complaint: cough Pertinent past history: asthma Onset (ago): day(s) (increased symptoms for 5 days) Consistency: constant Severity: moderate Description of mucous: clear Able to tolerate fluids by mouth: Yes Treatments prior to arrival: other (inhaler and neb) Related Data Home Medications ?Medication ?Instructions ?Recorded ?Confirmed ?Last Taken ?Type omega 9-spl-cjj-fish oil 1,000 mg 2 cap PO DAILY 05/26/23 08/06/24 07/19/23 History (120 mg-180 mg) capsule (Fish Oil) Allergies Allergy/AdvReac Type Severity Reaction Status Date / Time Penicillins Allergy Severe Hives Verified 08/28/24 08:21 adhesive tape Allergy Intermediate Blister Verified 08/28/24 08:21 amlodipine Allergy Intermediate Hives Verified 08/28/24 08:21 Sulfa (Sulfonamide Allergy Intermediate Hives Verified 08/28/24 08:21 Antibiotics) tamoxifen Allergy Intermediate Hives Verified 08/28/24 08:21 Review of Systems Review of Systems: CONSTITUTIONAL: Reports malaise, no chills, sweats, or fever. EYES: Denies visual changes, redness, or discharge. ENT: Reports rhinorrhea, congestion, sinus pain,no otalgia and no sore throat. CARDIOVASCULAR: Denies chest pain, palpitations, or edema. RESPIRATORY: Reports acute cough.? Reports dyspnea. GASTROINTESTINAL: Denies abdominal pain, nausea, vomiting, diarrhea SKIN: Denies rash or itching. MUSCULOSKELETAL: Denies myalgia. NEUROLOGIC: Reports headache. All systems reviewed & are unremarkable except as noted in HPI and below PMFSH Past Medical History Medical History Cough Duodenal papillary stenosis Otitis externa Insomnia Rash and nonspecific skin eruption Low back pain radiating to right leg Cervical radiculitis Urinary incontinence COVID-19 Takotsubo cardiomyopathy (02/2022) LEX (obstructive sleep apnea) With CPAP Elevated troponin Bradycardia (normal spontaneous vaginal delivery) x2 Pseudoangiomatous stromal hyperplasia of breast 2012 Depression Anxiety GERD (gastroesophageal reflux disease) Hypertension Hyperlipidemia Hx of migraines Asthma Surgical History Surgical History History of biliary duct stent placement H/O colonoscopy July 2024 Status post laser cataract surgery of right eye X2 H/O breast biopsy History of bowel resection (~2007) small intestine S/P laparoscopic cholecystectomy H/O oophorectomy Hx of appendectomy Family History Family History Mother Breast cancer Father Throat cancer Social History Social History Social History: Lifelong nonsmoker. Denies alcohol or drug use. Lives at home with her and her teenaged biological daughter. They also have 3 cats. She has a 2nd child who is older and has moved out. She is a full code. She nominates Cesia to be the individual to make medical decisions for her she is unable. 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 Gender identity (if verbalized by the patient): Female Sexual Orientation (if Verbalized by the Patient): Lesbian, Smith, or Homosexual Spiritual care concerns: No Comments At time of signature, agree with nursing past medical, surgical, social and family history. There is no relevant family history pertinent to the presenting complaint Exam Narrative: GENERAL: Ill-appearing, well-nourished, and in no acute distress. HEAD: Normocephalic EYES: PERRLA, conjunctivae clear ENT: Nares clear, turbinates edematous and erythematous, clear discharge. Mucous membranes moist. TM pearly morris with dull light reflex bilaterally; no tragal tenderness. Oropharynx erythematous without lesions. Tonsils not enlarged and without exudate, no drooling, no hoarseness, no trismus, uvula midline.PND NECK: Supple. No lymphadenopathy CHEST: Scattered wheezing on auscultation, breath sounds equal.Positive for wheezing,no rhonchi, rales, or stridor. No acute respiratory distress, speaks in full sentences.reports dyspnea, acute cough SAO2 100% on room air HEART: Regular rate and rhythm. No murmur heard. SKIN: Warm, dry, no rash. NEURO: Alert and oriented x3. PSYCH: Normal mood and affect Course Course Emergency Course: Patient is aware of diagnosis, understands and agrees to treatment plan.? Anticipatory guidance given.? Patient agrees to follow-up as directed and is aware of reasons to seek care at the emergency department. Portions of this record may have been created with voice recognition software Level of Care: Express Care Visit Vital Signs Vital signs: Vital Signs Temperature 36.2 C L 08/28/24 08:16 Pulse Rate 94 08/28/24 08:16 Respiratory Rate 08/28/24 08:16 Blood Pressure 172/94 H 08/28/24 08:16 Pulse Oximetry 100 08/28/24 08:16 Oxygen Delivery Room Air 08/28/24 08:16 Temperature 36.2 C L 08/28/24 08:16 Pulse Rate 94 08/28/24 08:16 Respiratory Rate 20 08/28/24 08:16 Blood Pressure 172/94 H 08/28/24 08:16 Pulse Oximetry 100 08/28/24 08:16 Oxygen Delivery Room Air 08/28/24 08:16 Reviewed MDM - URI/Sore Throat MDM Narrative Medical decision making narrative: Differential diagnosis considered: Guidry virus, strep pharyngitis, allergic rhinitis, upper respiratory tract infection, sinusitis, rhinosinusitis, nasopharyngitis. viral pharyngitis, otitis media, otitis externa, pneumonia, bronchitis, viral cough syndrome, viral syndrome, and influenza.? Exam findings show no acute concerns or changes; patient is non-toxic appearing and is in no distress.? Patient is appropriate for outpatient treatment and follow-up. Differential Diagnosis Differential diagnosis: Likely upper respiratory infection, sinusitis, viral infection, influenza and other (COVID, exacerbation of asthma) Medical Records Attestation: I reviewed the patient's medical records. Lab Data Attestation: I reviewed the patient's lab results. Lab results narrative: Influenza A negative, Influenza B negative, COVID antigen negative Labs: Lab Results 08/28/24 Range/Units 09:04 POC Influenza A Ag Negative (Negative) POC Influenza B Ag Negative (Negative) POC SARS CoV-2 Ag Negative (Negative) Imaging Data Attestation: I personally reviewed and interpreted this imaging study as follows: My impression: no acute cardiopulmonary pathology Radiologist's impression: [place] [address] XRay Report Signed Patient: Chrissy Kilgore : 1970 MR#: [id number] Age: 54 Acct:[id number] Loc: [facility] ADM Date: 08/28/24Attending Dr: Ordering Physician: Joy Villegas APRN Date of Service: 08/28/24 Procedure(s): XR chest 2V Accession Number(s): [id number] cc: Ramonita Crawford APN; Joy Villegas APRN~ XR chest 2V Ordering provider: Joy Villegas NP History: 54 years Female with . cough increased 5 days . Comparison: April 27, 2024 FINDINGS: MEDIASTINUM: The cardiac silhouette is not enlarged. LUNGS: No infiltrates, effusions or pneumothorax. OTHER: No free air under the diaphragm. IMPRESSION: No acute cardiopulmonary pathology. Reviewed, dictated and finalized at location A. ATER OPERATOR Please be advised this is a medical document. It is intended for [id number] communication. It is written in medical language and may contain unfamiliar abbreviations or verbiage. Medical documents are intended to carry relevant information, facts as evident, and the clinical opinion of the practitioner at the time of the encounter. This report may have been done utilizing a voice recognition system. Attempts have been made to correct errors. However, there may be uncorrected grammatical, spelling, and recognition errors present. The file time of this note does not necessarily represent the time the patient was seen. Dictated By: Erickson Boo MD 08/28/24 0836 Signed By: <Electronically signed by Erickson Boo MD in OV> Critical Care Time Critical Care Time Critical Care Time: No Discharge Plan Discharge Clinical Impression: Asthma exacerbation Qualifiers: Asthma severity: moderate Asthma persistence: persistent Qualified Code(s): J45.41 - Moderate persistent asthma with (acute) exacerbation Patient Disposition: Home, Self-Care Condition: Stable Instructions: Antibiotic Form, Moderate and Severe Persistent Asthma (ED) Additional Instructions: Increase fluids especially juices and water Stwu-[id number] cough and cold medicine of your choice for your symptoms Delsym or Robitussin DM cough medication Continue your inhaler/nebulizer as directed Steroids as directed--take with food heat to the face 20-30 minutes 4-6 times a day for pain Salt water gargles, throat lozenges or throat sprays as desired Antibiotic as directed--finished the medication If your symptoms persist, change or worsen significantly before you can contact your personal physician then please, without delay, go to the emergency department for further evaluation. Follow-up with PCP in 7-10 days or sooner if needed Follow up with PCP soon in regards to your blood pressure which is elevated above threshold for referral. Blood pressure above 120/80 may indicate pre- hypertension. 172/94 Please use your inhalers and nebulizer treatments as prescribed Patient Language: Ivorian Prescriptions: New azithromycin 250 mg tablet See Rx Instructions .ROUTE .COMPLEX Qty: 6 0RF Rx Instructions: For 250 mg dose pack: take 500 mg today (day 1), then 250 mg for 4 days (days 2-5) prednisone 50 mg tablet 50 mg PO DAILY Qty: 5 0RF No Action sertraline 100 mg tablet 100 mg PO DAILY Qty: 30 11RF omega 6-dlk-zah-fish oil [Fish Oil] 1,000 mg (120 mg-180 mg) capsule 2 cap PO DAILY budesonide-formoterol [Symbicort] 80-4.5 mcg/actuation HFA aerosol inhaler 2 puff inhalation Q12H Qty: 10.2 2RF bupropion HCl [Wellbutrin XL] 300 mg tablet extended release 24 hr 300 mg PO QAM Qty: 30 11RF lorazepam 0.5 mg tablet 0.5 mg PO DAILY PRN (Reason: anxiety) Qty: 30 5RF levalbuterol HCl 1.25 mg/3 mL solution for nebulization 1.25 mg inhalation TID PRN (Reason: Shortness Of Breath Or Wheezing) Qty: 90 3RF montelukast [Singulair] 10 mg tablet 10 mg PO HS Qty: 90 3RF Entresto 24-26 mg tablet See Rx Instructions .ROUTE .COMPLEX Qty: 60 5RF Dose Instruction: TAKE 1 TABLET BY MOUTH EVERY 12 HOURS Rx Instructions: TAKE 1 TABLET BY MOUTH EVERY 12 HOURS amitriptyline 10 mg tablet 10 mg PO QHS Qty: 90 1RF pantoprazole 40 mg tablet,delayed release (DR/EC) 40 mg PO QAM Qty: 90 3RF albuterol sulfate 90 mcg/actuation HFA aerosol inhaler 1 - 2 inh inhalation Q4-6H PRN (Reason: shortness of breath or wheezing) Qty: 8.5 2RF carvedilol 3.125 mg tablet See Rx Instructions .ROUTE .COMPLEX Qty: 180 2RF Dose Instruction: TAKE 1 TABLET BY MOUTH EVERY 12 HOURS WITH FOOD Rx Instructions: TAKE 1 TABLET BY MOUTH EVERY 12 HOURS WITH FOOD docusate sodium [Colace] 100 mg capsule 100 mg PO BID Qty: 180 3RF tizanidine 4 mg tablet 4 mg PO Q8H PRN (Reason: muscle spasticity) Qty: 90 1RF cetirizine [Zyrtec] 10 mg tablet 10 mg PO DAILY Qty: 90 3RF Follow-up/Referrals: Ramonita Crawford NP [Primary Care Provider] - Stand Alone Forms: Work/School Release IP Time of Disposition: 09:24 Quality Kaitlin Coma Scale Eyes: Open Verbal: Oriented and Alert Motor: Follows Commands [place] Coma Total Score: 15
[2024-08-28] MEDS: IPRATROPIUM 0.5 MG/ALBUTEROL SULFATE 2.5 MG AMPUL.NEB 3 ML INHALATION (08:37)
[2024-08-28 09:23] LABS: EDCOVIDSCREEN Negative (Negative); EDINFLUASCREEN Negative (Negative); EDINFLUBSCREEN Negative (Negative)
--- OUTSIDE RECORDS SUMMARY | 2024-09-03 19:34 | XMS_ITS | Patient Health Summary ---
Author Organization [facility] Address [address] [address] Care Team Providers Care Seasonal Delivery Driver Name Role Phone Ramonita Crawford PAOLA-BALER OPERATOR Primary Care Provider Note from [facility],non-owned Affiliates and Associated Physician Practices is amultiple site organization consisting of ambulatory clinics and hospital sitesin [place], [place], [place] and [place]. This disclosure is being madepursuant to the Care Everywhere program and may not contain all information available regarding this patient. Last updated 18.[facility] Allergies * Amlodipine Base(Urticaria) -Medium Criticality * Amoxicillin(Rash) -Medium Criticality * Latex(Urticaria) -Medium Criticality * Penicillins(Rash) -Medium Criticality * Sulfamethoxazole W-Trimethoprim(Itching,Swelling) -Medium Criticality * Tamoxifen(Urticaria,Rash) -High Criticality Medications * Be aware that medications may not be up to date on this document. Alwaysverify current medications with the patient. * albuterol HFA (PROVENTIL;VENTOLIN;PROAIR) 108 (90 Base) MCG/ACT inhaler (Started 10/05/2020) Inhale 2 (two) puffs by mouth every 4 hours as needed * fluticasone propionate (Flonase) 50 MCG/ACT nasal spray(Started 03/26/2021) SHAKE LIQUID AND USE 1 SPRAY IN EACH NOSTRIL DAILY NEEDED FOR NASAL CONGESTION * cetirizine (ZyrTEC) 10 MG tablet(Started 07/19/2022) Take 1 (one) tablet by mouth once daily * rosuvastatin (Crestor) 5 MG tablet(Started 07/14/2022) Take 1 (one) tablet by mouth once daily * sacubitril-valsartan (Entresto) 24-26 MG tablet(Started 07/12/2022) Take 1 (one) tablet by mouth every 12 hours * tiZANidine (Zanaflex) 4 MG tablet(Started 07/26/2022) Take 1 (one) tablet by mouth every 8 hours as needed * EPINEPHrine (Epipen) 0.3 MG/0.3ML auto-injector pen(Started 01/25/2022) INJECT 0.3 ML(0.3 MG TOTAL) IN THE MUSCLE INSTRUCTED NEEDED FOR ANAPHYLAXIS; CALL 911 AFTER USE * Docusate Sodium (DSS) 100 MG(Started 05/12/2022) Take 1 capsule by mouth 2 times daily * Albuterol Sulfate, sensor, 108 (90 Base) MCG/ACT AEPB(Started 08/06/2022) Inhale 2 puffs by mouth every 6 hours as needed * amitriptyline (Elavil) 10 MG tablet(Started 09/23/2023) Take 1 (one) tablet by mouth * buPROPion XL 24hr (Wellbutrin-XL) 300 MG tablet(Started 11/09/2023) Take 1 (one) tablet by mouth every morning * carvedilol (Coreg) 3.125 MG tablet(Started 11/14/2023) TAKE 1 TABLET BY MOUTH EVERY 12 HOURS WITH FOOD * montelukast (Singulair) 10 MG tablet(Started 08/27/2022) Take 1 (one) tablet by mouth at bedtime * pantoprazole EC (Protonix) 40 MG tablet(Started 08/27/2022) Take 1 (one) tablet by mouth once daily * sertraline (Zoloft) 50 MG tablet(Started 09/19/2023) Take 1 (one) tablet by mouth once daily Active Problems Problem Noted Date Diagnosed Date Atypical lobular hyperplasia (ALH) of left breas t 08/05/2021 11/29/2023 Essential hypertension 05/26/2021 XENA (generalized anxiety disorder) 05/12/2019 11/29/2023 Bilateral hand pain 05/17/2018 11/29/2023 Adjustment disorder with mixed anxiety and depre ssed mood 05/15/2018 11/29/2023 Resolved Problems Problem Noted Date Diagnosed Date Resolved Date Methamphetamine use disorder , severe, dependence 07/27/2019 11/29/2023 11/29/2023 CVA (cerebral vascular accident) 05/23/2019 11/29/1911/29/2023 Social History Tobacco Use Types Packs/Day Years Used Date Smoking Tobacco: Never Smokeless Tobacco: Never Tobacco Cessation:Counseling Given: Not Answered Alcohol Use Standard Drinks/Week Comments Never 0 (1 standard drink = 0.6 oz pur e alcohol) AUDIT-C Answer Date Recorded Q1: How often do you have a drink containing alc ohol? Never 10/05/2020 Average Number of Drinks Not on file 021 Frequency of Binge Drinking Not on file 09/22 PHQ-2 Answer Date Recorded Patient Health Questionnaire-2 Score 4 11/23/2023 Sex and Gender Information Value Date Recorded Sex Assigned at Not on file Gender Identity Not on file Sexual Orientation Not on file Last Filed Vital Signs Vital Sign Reading Time Taken Comments Blood Pressure 122/70 11/29/2023 9:27 AM CDT Pulse 63 08/02/2022 9:19 AM CLINICAL SERVICES SPECIALIST Temperature 35.9 ??C (96.6 ??F) 11/29/2023 9:27 AM CD T Respiratory Rate 19 10/05/2020 3:30 PM CLINICAL SERVICES SPECIALIST Oxygen Saturation 100% 08/02/2022 9:19 AM CLINICAL SERVICES SPECIALIST Inhaled Oxygen Concentration - - Weight 82.6 kg (182 lb 3.2 oz) 11/29/2023 9:27 A M CDT Height 167.6 cm (5' 6 ) 11/29/2023 9:27 AM CDT Body Mass Index 29.41 11/29/2023 9:27 AM CDT Procedures * VA INSERT NON-INDWELLING BLADDER(Performed 11/29/2023) Performed for Frequency of micturition, Nocturia * CULTURE URINE COMPREHENSIVE(Performed 11/29/2023) Performed for Frequency of micturition, Nocturia * URINALYSIS AUTO - POINT OF CARE (AMB) [facility](Performed 11/29/2023) Performed for Frequency of micturition, Nocturia * URINALYSIS AUTO - POINT OF CARE (AMB) [facility](Performed 08/02/2022) Performed for Mixed stress and urge urinary incontinence * CBC W AUTO DIFFERENTIAL(Performed 10/05/2020) * D-DIMER(Performed 10/05/2020) * TROPONIN I(Performed 10/05/2020) * COMPREHENSIVE METABOLIC PANEL(Performed 10/05/2020) * EKG 12-LEAD(Performed 10/05/2020) Performed for Chest pressure * XR CHEST 1VW PORTABLE(Performed 10/05/2020) Performed for SOB (shortness of breath) Results * VA INSERT NON-INDWELLING BLADDER (11/29/2023 10:30 AM CDT) Narrative Judith Bradford Che, MD - 11/29/2023 10:30 AM CDT Judith Bradford Che, MD ? 11/29/2023 10:30 AM The patient was prepped with betadine (or with hibiclens or other antiseptic agent if allergic to topical iodine). She understood the rationale for the procedure and agreed to the procedure. A 14F short female catheter was then advanced into the urethra and urine was collected for bedside urinalysis as well as a urine culture and/or formal urinalysis as needed. The post void residual is as noted in the progress note, as are results of the dipstick taken. The patient tolerated the procedure well. Judith Bradford MD PROCEDURE/MINOR SURG ICAL ORDERABLES * CULTURE URINE COMPREHENSIVE (11/29/2023 10:30 AM CDT) Culture [facility] Comment: ??CULTURE, URINE, SPECIAL ?Micro Number: ?[id number] ??Test Status: ? Final ??Specimen Source: ?? Urine, catheter ??Specimen Quality: ??Adequate ??Result: ?No Growth Test Performed at: [facility] ??[id number] SHAHAB HAYS MD Microbiology URINE SPECIMEN COLLECTION, CATHETERIZED / Unknown 11/29/2023 10:30 AM CDT 11/30/2023 2:16 AM CDT Judith Bradford MD LAB - MICROBIOLOGY O RDERABLES [facility] [id number] [place] [address] * URINALYSIS AUTO - POINT OF CARE (AMB) [facility] (11/29/2023) Only the most recent of2 resultswithin the time period is included. Glucose UA neg OTHER LAB Bilirubin UA POCT neg OTHER LAB Ketones UA POCT neg OTHER LAB Specific Baxter UA 1.010 OTHER LAB Blood Urine POCT neg OTHER LAB pH UA 6.5 OTHER LAB Protein UA neg OTHER LAB Urobilinogen UA 0.2 OTHER LAB Nitrite UA neg OTHER LAB WBC UA neg OTHER LAB Urine URINE / Unknown 11/29/2023 Judith Bradford MD LAB - POINT OF CARE ORDERABLES OTHER LAB * (ABNORMAL) CBC W AUTO DIFFERENTIAL (10/05/2020 2:13 PM CLINICAL SERVICES SPECIALIST) WBC 9.1 4.4 - 10.7 x10E9/L 10/05/2020 2:20 PM CLINICAL SERVICES SPECIALIST [facility] WBC Corrected 10/05/2020 2:20 PM CLINICAL SERVICES SPECIALIST [facility] RBC 4.47 3.80 - 5.20 x10E12/L 10/05/2020 2:20 PM CLINICAL SERVICES SPECIALIST [facility] Hemoglobin 13.6 12.0 - 15.6 gm/dL 10/05/2020 2:20 PM [facility] Hematocrit 41.2 35.9 - 45.5 % 10/05/2020 2:20 PM [facility] MCV 92.2 80.7 - 98.3 fl 10/05/2020 2:20 PM [facility] MCH 30.4 26.7 - 34.0 pg 10/05/2020 2:20 PM [facility] MCHC 33.0 30.8 - 35.9 gm/dL 10/05/2020 2:20 PM [facility] Platelet Count 278 153 - 416 x10E9/L 10/05/2020 2:20 PM [facility] RDW-CV 11.7(L) 12.1 - 14.9 % 10/05/2020 2:20 PM [facility] MPV 8.9(L) 9.4 - 12.9 fl 10/05/2020 2:20 PM [facility] Neutrophils % 84.6(H) 44.0 - 73.0 % 10/05/2020 2:20 PM [facility] Lymphocytes % 11.8(L) 20.0 - 43.0 % 10/05/2020 2:20 PM [facility] Monocytes % 1.4(L) 5.0 - 13.0 % 10/05/2020 2:20 PM [facility] Eosinophils % 0.8 0.0 - 6.0 % 10/05/2020 2:20 PM [facility] Basophils % 0.3 0.0 - 2.0 % 10/05/2020 2:20 PM [facility] Immature Granulocytes 1.1(H) 0 - 1 % 10/05/2020 2:20 PM [facility] Neutrophil Absolute 7.70(H) 2.01 - 7.14 x10E9/L 10/05/2020 2:20 PM [facility] Lymphocytes Absolute 1.07 1.07 - 3.94 x10E9/L 10/05/2020 2:20 PM [facility] Monocytes Absolute 0.13(L) 0.26 - 1.07 x10E9/L 10/05/2020 2:20 PM [facility] Eosinophils Absolute 0.07 0 - 0.47 x10E9/L 10/05/2020 2:20 PM [facility] Basophils Absolute 0.03 0 - 0.08 x10E9/L 10/05/2020 2:20 PM [facility] Immature Granulocytes Absolute 0.10(H) 0.00 - 0.06 x10E9/L 10/05/2020 2:20 PM [facility] nRBC Auto 0 /100 WBC 10/05/2020 2:20 PM [facility] Blood BLOOD SPECIMEN / Unknown Venipuncture / Unknown 10/05/2020 2:13 PM CLINICAL SERVICES SPECIALIST 10/05/2020 2:18 PM [facility] Santi Kemp PA-C LAB - HEMATOLOGY ORD ERABLES Performing Organization Address [facility] Co de Phone Number [facility] [address] [phone] * TROPONIN I (10/05/2020 2:12 PM CLINICAL SERVICES SPECIALIST) Pathologist [facility] Troponin I <0.010 <0.038 ng/mL 10/05/2020 2:41 PM CLINICAL SERVICES SPECIALIST [facility] Blood BLOOD SPECIMEN / Unknown Venipuncture / Unknown 10/05/2020 2:12 PM CLINICAL SERVICES SPECIALIST 10/05/2020 2:17 PM CLINICAL SERVICES SPECIALIST Santi Kemp PA-C LAB - CHEMISTRY ORDE RABLES Performing Organization Address [facility] de Phone Number [facility] [address] [place] [address] * D-DIMER (10/05/2020 2:12 PM CLINICAL SERVICES SPECIALIST) [facility] D-Dimer 0.36 0.27 - 0.50 ug/mL FEU 10/05/2020 2:30 PM CLINICAL SERVICES SPECIALIST [facility] Blood BLOOD SPECIMEN / Unknown Venipuncture / Unknown 10/05/2020 2:12 PM CLINICAL SERVICES SPECIALIST 10/05/2020 2:18 PM CLINICAL SERVICES SPECIALIST Narrative [facility] - 10/05/2020 2:30 PM CLINICAL SERVICES SPECIALIST In the absence of clinical symptoms, a value less than or equal to 0.5 mcg/mL FEU significantly decreases the probability of PE/DVT (negative predictive value >95%). 1 mcg/ml FEU = 1 Fibrinogen Equivalent Unit (approximates 0.5 mcg/mL of D- dimer). Santi Kemp PA-C LAB - COAGULATION OR DERABLES Performing Organization Address [facility] Co de Phone Number [facility] [address] [place] [address] * (ABNORMAL) COMPREHENSIVE METABOLIC PANEL (10/05/2020 2:12 PM CLINICAL SERVICES SPECIALIST) Pathologist [facility] Glucose 135(H) 70 - 105 mg/dL 10/05/2020 2:36 PM CLINICAL SERVICES SPECIALIST [facility] Sodium 142 136 - 145 mmol/L 10/05/2020 2:36 PM [facility] Potassium 3.3(L) 3.5 - 5.1 mmol/L 10/05/2020 2:36 PM [facility] Chloride 106 98 - 107 mmol/L 10/05/2020 2:36 PM [facility] CO2 23 23 - 31 mmol/L 10/05/2020 2:36 PM [facility] Calcium 9.7 8.4 - 10.4 mg/dL 10/05/2020 2:36 PM [facility] Anion Gap 13 8 - 18 mmol/L 10/05/2020 2:36 PM [facility] Comment:Attention clinician: ??Reference Range change. BUN 10 9.8 - 20.1 mg/dL 10/05/2020 2:36 PM [facility] Creatinine 0.74 0.57 - 1.11 mg/dL 10/05/2020 2:36 PM [facility] Alkaline Phosphatase 181(H) 40 - 150 U/L 10/05/2020 2:36 PM [facility] Comment:Attention clinician: ??Reference Range change. ALT 90(H) 0 - 61 U/L 10/05/2020 2:36 PM [facility] AST 36(H) 5 - 34 U/L 10/05/2020 2:36 PM [facility] Protein Total 7.4 6.4 - 8.3 gm/dL 10/05/2020 2:36 PM [facility] Albumin 4.1 3.5 - 5.2 gm/dL 10/05/2020 2:36 PM [facility] Bilirubin Total 0.4 0.2 - 1.2 mg/dL 10/05/2020 2:36 PM [facility] Comment:Attention clinician: ??Reference Range change. eGFR by MDRD >60 >60 mL/min/1.7 3m2 10/05/2020 2:36 PM [facility] eGFR by MDRD >60 >60 mL/min/1.7 3m2 10/05/2020 2:36 PM [facility] Blood BLOOD SPECIMEN / Unknown Venipuncture / Unknown 10/05/2020 2:12 PM CLINICAL SERVICES SPECIALIST 10/05/2020 2:17 PM CLINICAL SERVICES SPECIALIST aSnti Kemp PA-C LAB - CHEMISTRY AILYN APPLE Performing Organization Address City/[facility]/ZIP Co de Phone Number [facility] [address] [id number] * EKG 12-LEAD (10/05/2020 2:05 PM CLINICAL SERVICES SPECIALIST) Ventricular Rate 77 BPM [facility] Atrial Rate 77 BPM [facility] P-R Interval 142 ms [facility] QRS Duration ms 92 ms [facility] Q-T Interval ms 390 ms [facility] QTC Calculation (Bezet) 441 ms [facility] Calculated P [place] 44 degrees [facility] Calculated R [place] -2 degrees [facility] Calculated T [place] -5 degrees [facility] Interpretation EKG Normal sinus rhythm Cannot rule out Anterior infarct , age undetermined Abnormal ECG No previous ECGs available Confirmed by MD MYAH, ERICKA Menezes ([id number]) on 10/06/2020 8:08:41 AM [facility] 10/05/2020 2:05 PM CLINICAL SERVICES SPECIALIST 10/06/2020 8:08 AM CLINICAL SERVICES SPECIALIST Santi Kemp PA-C ECG ORDERABLES Performing Organization Address [facility] Co de Phone Number [facility] * XR CHEST 1VW PORTABLE (10/05/2020 1:24 PM CLINICAL SERVICES SPECIALIST) Anatomical Region Laterality Modality Chest Radiographic Dulce ging 10/05/2020 1:51 PM CLINICAL SERVICES SPECIALIST Impressions 10/05/2020 1:53 PM CLINICAL SERVICES SPECIALIST Negative *Reading Radiologist: Javier Alston on 10/05/2020 at 1:53 PM Narrative 10/05/2020 1:53 PM CLINICAL SERVICES SPECIALIST Portable Chest AP History: Difficulty breathing asthma FINDINGS: No prior. Heart size is normal and the lungs are clear and no pneumothorax or pleural effusion is seen. Procedure Note Javier Alston MD - 10/05/2020 Portable Chest AP History: Difficulty breathing asthma FINDINGS: No prior. Heart size is normal and the lungs are clear and no pneumothorax or pleural effusion is seen. IMPRESSION Negative *Reading Radiologist: Javier Alston on 10/05/2020 at 1:53 PM Corine Guillaume PA-C DIAGNOSTIC IM AGING ORDERABLES Care Teams Seasonal Delivery Driver Relationship Specialty Start Date End Date Ramonita Crawford, UNDERWRITING TECHNICIAN-BALER OPERATOR [address] [phone] PCP - General Nurse Practitioner 11/29/23
--- OUTSIDE RECORDS SUMMARY | 2024-09-03 19:34 | XMS_ITS | Encounter Summary ---
Author Organization [facility] Address [address] [place] [address] Care Team Providers Care Professor Computer Science Name Role Phone Ramonita Crawford PAOLA-POLE PEELING MACHINE OPERATOR HELPER Primary Care Provider Reason for Referral * Evaluate & Treat (Routine) - Closed Specialty Diagnoses / Procedures Referred By Sharlene angulo Referred To Contact Physical Therapy Diagnoses Myofascial pain Judith Bradford Che, MD [address] [facility] [address] [place] [address] [place] [address] [place] [phone] Referral ID Status Reason Start Date Expiration Date V isits Requested Visits Authorized [id number] Closed Specialty Services Required 11/29/2023 11/28/2024 1 1 Scheduling Instructions Myofascial pain, levators and obturator internus. Please call [facility] Physical Therapy for an appointment for pelvic floor physical therapy [address], [address] [place] [address] Please bring the paper referral form with you. See me in 3 months. Reason for Visit * Reason Comments Incontinence Encounter Details Date Type Department Care Team (Late st Contact Info) Description 11/29/2023 10:00 AM CDT Office Visit [facility] - PROPERTY CONDITION ASSESSOR [address] [facility] [address] [place] [address] Judith Bradford Che, MD [address] [facility] [address] [place] [address] Frequency of micturition (Primary Dx); Nocturia; Myofascial pain; Vaginal atrophy Social History Tobacco Use Types Packs/Day Years Used Date Smoking Tobacco: Never Smokeless Tobacco: Never Alcohol Use Standard Drinks/Week Comments Never 0 [...] on file Sexual Orientation Not on file documented as of this encounter Last Filed Vital Signs Vital Sign Reading Time Taken Comments Blood Pressure 122/70 11/29/2023 9:27 AM CDT Pulse - - Temperature 35.9 ??C (96.6 ??F) 11/29/2023 9:27 AM CD T Respiratory Rate - - Oxygen Saturation - - Inhaled Oxygen Concentration - - Weight 82.6 kg (182 lb 3.2 oz) 11/29/2023 9:27 A M CDT Height 167.6 cm (5' 6 ) 11/29/2023 9:27 AM CDT Body Mass Index 29.41 11/29/2023 9:27 AM CDT documented in this encounter Patient Instructions * Patient Instructions* Judith Bradford Che, MD - 11/29/2023 10:32 AM CDT The pain if from muscular spasm Stop solifenacin (Vesicare) and tell me. Please call [facility] Physical Therapy for an appointment for pelvic floor physical therapy [address], [address] [place], [place] [id number] Please bring the paper referral form with you. See me in 3 months. Call if any problems or concerns at . You can also ask the graphite mill operator to send me a message, and I or the nurses in Urogynecology Triage will respond when we can. If you contact via [employer] I do NOT get a notification, nor an email. I will only know you sent a message if I log into [employer], so that may be some hours after you have sent the message. I will generally try to check for messages in the evening and on weekends, but if I am out of town, this can be delayed. If there is an emergent need, please consider going to an Urgent Care or Emergency Room. This is different for you as you may get an email or even a notification on the [employer] familia if I send you a message. You will note that your clinical notes from your visits will be available for visits after 2019 (Sorry, earlier ones are not released by [facility] or [facility]). If you see any errors, please tell mewithin the week of your visit. If there are phrases used that you don't understand, feel free to ask. These notes are designed to convey information to other emergency medical technician so will have the expected medical terms used. I do not have control of some of the lab results being released for your review, so if there are any you need, simply ask me. The vast majority should be available perhaps even before I get to see them. For example, they may return from the lab in the middle of the night, and you may see them before I review them. Please contact me if you have any questions about them. Please review the medication list at the end of the After Visit Summary given to you with the visittoday. Compare the list to what you take at home, and if there are any errors or differences, please tell me. The dosing may be different because I didn't change them to reflect how you take them exactly. documented in this encounter Progress Notes * Judith Bradford Che, MD - 12/02/2023 7:38 AM CDT Urine culture is negative for infection. * Judith Bradford Che, MD - 11/29/2023 10:00 AM CDT Urogynecology - Initial Visit Referral source: Dr. Rhys Mckeon Primary care physician: CANDE Garcia Ms. Chrissy Kilgore is a 53 year old year old, 3, para 2, female who has complaints of a problem with prolapse and incontinence. She had been seeing Harleen Celaya in urology for incontinence. She has been on solifenacin (Vesicare) 10 mg. She did get ultrasounds, and it was fine . She continued to take the solifenacin (Vesicare), but it did not help. She has had cardiomyopathy, depression, asthma, GERD, hypertension, irritable bowel syndrome, and sleep apnea. She has issues with the stent in her bile duct, and it is not working, and her liver enzymes are elevated. She is bothered by pelvic pressure . She describes it suprapubically. She has an urge to void. Shewas voiding every 1 to 1 1/2 hours. She says that most of the time, she will have to strain to void. She says that she did NOT have to strain to void when she first saw Harleen Celaya. She was also voiding less often. It is worse. She will discuss a post void leak - every time she voids. She may have some stress loss. She drinks not a lot because of her GI issues. She will have some constipation alternating with diarrhea. She does not feel a prolapse physically. She is sexually active. She does not have any dyspareunia. She does not have complaints of urinary loss with coitus. Review of Systems: Constitutional: Fatigue Eyes: Contacts/Glasses and Cataracts Ears, nose, mouth, throat, and face: Nasal congestion and Snoring Respiratory: Asthma Cardiovascular: Negative Gastrointestinal: Reflux and Change in bowel habits Genitourinary:Frequency, Nocturia, Incontinence and Hesitancy Integument/breast: Negative Hematologic/lymphatic: Negative Musculoskeletal: Muscular pain and Neck pain Neurological: Negative Behavioral/Psych: Anxiety and Depression Endocrine: Negative Allergic/mmunologic: Negative Past Medical History: Diagnosis Date ??? Anxiety ??? Asthma (HCC) ??? Back pain ??? Cardiomyopathy (HCC) 2021 ??? Depression ??? GERD (gastroesophageal reflux disease) ??? HTN (hypertension) ??? IBS (irritable bowel syndrome) ??? Insomnia ??? Neck pain ??? Pseudoangiomatous stromal hyperplasia of breast ??? Sleep apnea Past Surgical History: Procedure Laterality Date ??? Appendectomy ??? Cataract Removal ??? Cholecystectomy ??? OTHER SURGERY biliary duct stent ??? Small Bowel Resection 2007 ? ? UTERUS (D&C) Social History Socioeconomic History ??? Marital status: Significant Other Spouse name: Not on file ??? Number of children: Not on file ??? Years of education: Not on file ??? Highest education level: Not on file Occupational History ??? Not on file Tobacco Use ??? Smoking status: Never ??? Smokeless tobacco: Never Vaping Use ??? Vaping Use: Never used Substance and Sexual Activity ??? Alcohol use: Never ??? Drug use: Never ??? Sexual activity: Yes Partners: Female Other Topics Concern ??? Not on file Social History Narrative ??? Not on file Social Determinants of Health Financial Resource Strain: Not on file Food Insecurity: Not on file Transportation Needs: Not on file Stress: Not on file Housing Stability: Not on file Family History Problem Relation Name Age of Onset ??? Cancer - Breast Mother Current Outpatient Medications on File Prior to Visit Medication Sig Dispense Refill ??? albuterol HFA (PROVENTIL;VENTOLIN;PROAIR) 108 (90 Base) MCG/ACT inhaler Inhale 2 (two) puffs bymouth every 4 hours as needed 1 g 0 ??? Albuterol Sulfate, sensor, 108 (90 Base) MCG/ACT AEPB Inhale 2 puffs by mouth every 6 hours as needed ??? amitriptyline (Elavil) 10 MG tablet Take 1 (one) tablet by mouth ??? buPROPion XL 24hr (Wellbutrin-XL) 300 MG tablet Take 1 (one) tablet by mouth every morning ??? carvedilol (Coreg) 3.125 MG tablet TAKE 1 TABLET BY MOUTH EVERY 12 HOURS WITH FOOD ??? cetirizine (ZyrTEC) 10 MG tablet Take 1 (one) tablet by mouth once daily ??? Docusate Sodium (DSS) 100 MG Take 1 capsule by mouth 2 times daily ??? EPINEPHrine (Epipen) 0.3 MG/0.3ML auto-injector pen INJECT 0.3 ML(0.3 MG TOTAL) IN THE MUSCLE INSTRUCTED NEEDED FOR ANAPHYLAXIS; CALL 911 AFTER USE ??? fluticasone propionate (Flonase) 50 MCG/ACT nasal spray SHAKE LIQUID AND USE 1 SPRAY IN EACH NOSTRIL DAILY NEEDED FOR NASAL CONGESTION ??? montelukast (Singulair) 10 MG tablet Take 1 (one) tablet by mouth at bedtime ??? pantoprazole EC (Protonix) 40 MG tablet Take 1 (one) tablet by mouth once daily ??? rosuvastatin (Crestor) 5 MG tablet Take 1 (one) tablet by mouth once daily ??? sacubitril-valsartan (Entresto) 24-26 MG tablet Take 1 (one) tablet by mouth every 12 hours ??? sertraline (Zoloft) 50 MG tablet Take 1 (one) tablet by mouth once daily ??? tiZANidine (Zanaflex) 4 MG tablet Take 1 (one) tablet by mouth every 8 hours as needed No current facility-administered medications on file prior to visit. Allergies Allergen Reactions ??? Latex Urticaria ??? Amoxicillin Rash ??? Penicillins Rash ??? Tamoxifen Urticaria and Rash ??? Amlodipine Base Urticaria ??? Sulfamethoxazole W-Trimethoprim Itching and Swelling Facial swelling & widespread itching PHYSICAL EXAMINATION: URINE Post void residual : 70 cc. Dipstick (-) ingrid est, (-) nitrite, (-) blood CONSTITUTIONAL: look vital signs GENERAL: well developed, well nourished, well groomed SKIN: Inspected and palpated within normal limits NECK: within normal limits THYROID - normal CARDIOVASCULAR: regular rate and rhythm LUNGS: clear to auscultation GASTROINTESTINAL: ABDOMEN - no masses, no tenderness, no rebound, surgical scar noted Diastasis recti - 0 LYMPHATICS: Nodes (all that apply) Neck - within normal limits Axilla - within normal limits Groin - within normal limits BACK: within normal limits NEUROLOGIC/PSYCHIATRIC: Oriented to - person, place, time Mood/Affect -within normal limits GYNECOLOGIC/GENITOURINARY: Breasts - not examined External genitalia - atrophic Urethral meatus - within normal limits Urethra - within normal limits Urethrovesical junction hypermobility - Yes Supine Empty Stress Test - negative Bladder base - within normal limits POP-Q- Aa / Ba / C -2/-2/-7 Gh / pb / tvl Ap / Bp / D -2/-2/-8 Kegel strength : 1/5 Cervix - within normal limits Uterus - not palpable Adnexa - not palpable Anus / Perineum - within normal limits IMPRESSION She has had overactive bladder with frequency, and had been on solifenacin (Vesicare) for about 2 years, and says it has not helped. She also has suprapubic pressure that is constant. It is worse with activity. She associates the pressure to urinary urgency. She has significant pelvic floor myofascial pain that she says mimicked the pressure sensation. She has minimal prolapse and I don't think it contributes to her discomfort. She is also dealing with rising LFT's and is to see GI for follow up. PLAN: To stop solifenacin (Vesicare) and report. Recommended pelvic floor physical therapy. To see me in 3 months. Encounter Diagnoses Name Primary? Frequency of micturition Yes ??? Nocturia ??? Myofascial pain ??? Vaginal atrophy Time - The total face to face encounter time was 36 minutes during today's visit which includes a medically appropriate exam or evaluation, and counseling and educating the patient or family/caregiver. Additionally, I also spent time on the day of the visit preparing to see the patient and completingthe visit documentation, including - ? Preparing to see the patient (review of previous tests, records available, etc) Time: 15 min ? Ordering medications, tests, or procedures as needed Time: 5 min ? Referring and/or communicating with other health point of care specialist Time: 5 min ? Documenting clinical information in the electronic health record Time: 10 min ? Care coordination as needed Time: 0 min Total time spent for encounter: 71 minutes 30 min (02815) 45 minutes ([id number]) 60 minutes ([id number]) documented in this encounter Procedure Notes * Judith Bradford Che, MD - 11/29/2023 10:30 AM CDTAssociated Order(s): PROC BLADDER CATHETERIZATION Procedure(s): MT INSERT NON-INDWELLING BLADDER Pre-Procedure Diagnose(s): Frequency of micturition; Nocturia Post-Procedure Diagnose(s): Frequency of micturition; Nocturia The patient was prepped with betadine (or [...] taken. The patient tolerated the procedure well. documented in this encounter Plan of Treatment Scheduled Referrals Name Type Priority Associated Diagnoses Order Schedule Ref to Physical Therapy - [facility] PT Outpatient Referral Routine Myofascial pain 1 Occurrences starting 11/29/2023 until 11/28/2024 documented as of this encounter Procedures Procedure Name Priority Date/Time Associated Diagnosis Comments MT INSERT NON-INDWELLING BLADDER Routine 11/29/2023 10:30 AM CDT Frequency of micturition Nocturia CULTURE URINE COMPREHENSIVE Routine 11/29/2023 10:30 AM CDT Frequency of micturition Nocturia URINALYSIS AUTO - POINT OF CARE (AMB) [facility] Routine 11/29/2023 Frequency of micturition Nocturia documented in this encounter Results * MT INSERT NON-INDWELLING BLADDER (11/29/2023 10:30 AM CDT) [...] [facility] Comment: ??CULTURE, URINE, SPECIAL ?Micro Number: ?[id number] ??Test Status: ? Final ??Specimen Source: ?? Urine, catheter ??Specimen Quality: ??Adequate ??Result: ?No Growth Test Performed at: [facility] ??[id number] SHAHAB HAYS MD Microbiology URINE SPECIMEN COLLECTION, CATHETERIZED / Unknown 11/29/2023 10:30 AM CDT 11/30/2023 2:16 AM CDT Judith Bradford MD LAB - MICROBIOLOGY O RDERABLES [facility] [address] [place] [id number] * URINALYSIS AUTO - POINT OF CARE (AMB) [facility] (11/29/2023) Glucose UA neg OTHER LAB Bilirubin UA POCT neg OTHER LAB Ketones UA POCT neg OTHER LAB Specific [place] UA 1.010 OTHER LAB Blood Urine POCT neg OTHER LAB pH UA 6.5 OTHER LAB Protein UA neg OTHER LAB Urobilinogen UA 0.2 OTHER LAB Nitrite UA neg OTHER LAB WBC UA neg OTHER LAB Urine URINE / Unknown 11/29/2023 Judith Bradford MD LAB - POINT OF CARE ORDERABLES OTHER LAB documented in this encounter Visit Diagnoses Diagnosis Frequency of micturition- Primary Urinary frequency Nocturia Myofascial pain Mylagia and myositis, unspecified Vaginal atrophy Postmenopausal atrophic vaginitis documented in this encounter Care Teams Professor Computer Science Relationship Specialty Start Date End Date Ramonita Crawford, ADVANCED MANUFACTURING TECHNICIAN-POLE PEELING MACHINE OPERATOR HELPER [address] [place] [address] PCP - General Nurse Practitioner 11/29/23 documented as of this encounter
--- OUTSIDE RECORDS SUMMARY | 2024-09-03 19:34 | XMS_ITS | Clinical Summary ---
Author Organization [facility] Address [address] [facility] [place] [address] Care Team Providers Care Parts Counter Clerk Name Role Phone Ramonita Crawford PAOLA-DIRECTOR OF TESTING Primary Care Provider Source Comments [facility],non-owned Affiliates and Associated Physician Practices is amultiple site organization consisting of ambulatory clinics and hospital sitesin [place], [place], [place] and [place]. This disclosure is being madepursuant to the Care Everywhere program and may not contain all information available regarding this patient. Last updated 18.[facility] Allergies Active Allergy Reactions Criticality Noted Date Comments Amlodipine Base Urticaria Medium 11/29/2023 Amoxicillin Rash Medium 10/05/2020 Latex Urticaria Medium 02/07/2017 Penicillins Rash Medium 10/05/2020 Sulfamethoxazole W-Trimethoprim Itching,Swelling Medium 10/28/2021 Facial swelling & widespread itching Tamoxifen Urticaria,Rash High 02/07/2017 Medications * Be aware that medications may not be up to date on this document. Alwaysverify current medications with the patient. Medication Sig Dispensed Refills Start Date End Date Status albuterol HFA (PROVENTIL;VENTOLIN; PROAIR) 108 (90 Base) MCG/ACT inhaler Inhale 2 (two) puffs by mouth every 4 hours as needed 1 g 10/05/2020 Active fluticasone propionate (Flonase) 50 MCG/ACT nasal spray SHAKE LIQUID AND USE 1 SPRAY IN EACH NOSTRIL DAILY NEEDED FOR NASAL CONGESTION 03/26/2021 Active cetirizine (ZyrTEC) 10 MG tablet Take 1 (one) tablet by mouth once daily 07/19/2022 Active rosuvastatin (Crestor) 5 MG tablet Take 1 (one) tablet by mouth once daily 07/14/2022 Active sacubitril-valsartan (Entresto) 24-26 MG tablet Take 1 (one) tablet by mouth every 12 hours 07/12/2022 Active tiZANidine (Zanaflex) 4 MG tablet Take 1 (one) tablet by mouth every 8 hours as needed 07/26/2022 Active EPINEPHrine (Epipen) 0.3 MG/0.3ML auto-injector pen INJECT 0.3 ML(0.3 MG TOTAL) IN THE MUSCLE INSTRUCTED NEEDED FOR ANAPHYLAXIS; CALL 911 AFTER USE 01/25/2022 Active Docusate Sodium (DSS) 100 MG Take 1 capsule by mouth 2 times daily 05/12/2022 Active Albuterol Sulfate, sensor, 108 (90 Base) MCG/ACT AEPB Inhale 2 puffs by mouth every 6 hours as needed 08/06/2022 Active amitriptyline (Elavil) 10 MG tablet Take 1 (one) tablet by mouth 09/23/2023 Active buPROPion XL 24hr (Wellbutrin-XL) 300 MG tablet Take 1 (one) tablet by mouth every morning 11/09/2023 Active carvedilol (Coreg) 3.125 MG tablet TAKE 1 TABLET BY MOUTH EVERY 12 HOURS WITH FOOD 11/14/2023 Active montelukast (Singulair) 10 MG tablet Take 1 (one) tablet by mouth at bedtime 08/27/2022 Active pantoprazole EC (Protonix) 40 MG tablet Take 1 (one) tablet by mouth once daily 08/27/2022 Active sertraline (Zoloft) 50 MG tablet Take 1 (one) tablet by mouth once daily 09/19/2023 Active Active Problems Problem Noted Date Diagnosed Date Atypical lobular hyperplasia (ALH) of left breas t 08/05/2021 11/29/2023 Essential hypertension 05/26/2021 4 Overview (11/29/2023): Last Assessment & Plan: Chronic stable and at goal Continue with metorprolol XENA (generalized anxiety disorder) 05/12/2019 11/29/2023 Overview (11/29/2023): Last Assessment & Plan: Chronic stable and well Controlled Continue ativan refill today Bilateral hand pain 05/17/2018 11/29/2023 Adjustment disorder with mixed anxiety and depre ssed mood 05/15/2018 11/29/2023 Resolved Problems Problem Noted Date Diagnosed Date Resolved Date Methamphetamine use disorder , severe, dependence 07/27/2019 11/29/2023 11/29/2023 CVA (cerebral vascular accident) 05/23/2019 11/29/1911/29/2023 Family History Medical History Relation Name Comments Cancer - Breast Mother Relation Name Status Comments Mother Social History Tobacco Use Types Packs/Day Years [...] AM CDT Pulse 63 08/02/2022 9:19 AM GANG MINER Temperature 35.9 ??C (96.6 ??F) 11/29/2023 9:27 AM CD T Respiratory Rate 19 10/05/2020 3:30 PM GANG MINER Oxygen Saturation 100% 08/02/2022 9:19 AM GANG MINER Inhaled Oxygen Concentration - - Weight 82.6 kg (182 lb 3.2 oz) 11/29/2023 9:27 A M CDT Height 167.6 cm (5' 6 ) 11/29/2023 9:27 AM CDT Body Mass Index 29.41 11/29/2023 9:27 AM CDT Plan of Treatment Health Maintenance Due Date Last Done Comments COLOGUARD (AGES 45-75) - COLON CA SCREENING 1970 COLON MONITORING 1970 COLONOSCOPY - COLON CA SCREENING 1970 CT COLONOGRAPHY - COLON CA SCREENING 1970 Colorectal Cancer Screening 1970 FIT - COLON CA SCREENING 1970 FLEX SIG - COLON CA SCREENING 1970 PAP SMEAR 1970 HIV SCREENING 1985 HEPATITIS C SCREENING 06/02/1988 DTAP/TDAP/TD VACCINES (1 - Tdap) 1989 HEPATITIS B VACCINE (1 of 3 - 19+ 3-dose series) 1989 ZOSTER VACCINE (1 of 2) 2020 SCREENING FOR DIABETES 11/29/2023 10/05/2020 COVID-19 VACCINE ( - season) 2024 INFLUENZA VACCINE (#1) 2024 DEPRESSION SCREENING 08/22/2024 MAMMOGRAM 06/09/2025 06/09/2023, 1209/2021, 05/18/2022, Additional history exists HIB VACCINE Aged Out No longer eligi ble based on patient's age to complete this topic HPV VACCINE Aged Out No longer eligi ble based on patient's age to complete this topic MENINGOCOCCAL VACCINE Aged Out No kashif erendira eligible based on patient's age to complete this topic PNEUMOCOCCAL VACCINE Aged Out No long er eligible based on patient's age to complete this topic Procedures Procedure Name Priority Date/Time Associated Diagnosis Comments COMPREHENSIVE METABOLIC PANEL STAT 10/05/2020 2:12 PM GANG MINER from Last 3 Months or Most Recently Relevant to Health Maintenance Results * (ABNORMAL) COMPREHENSIVE METABOLIC PANEL (10/05/2020 2:12 PM GANG MINER) Glucose 135(H) 70 - 105 mg/dL 10/05/2020 2:36 PM [facility] Sodium 142 136 - 145 mmol/L 10/05/2020 2:36 PM [facility] Potassium 3.3(L) 3.5 - 5.1 mmol/L 10/05/2020 2:36 PM [facility] Chloride 106 98 - 107 mmol/L 10/05/2020 2:36 PM [facility] CO2 23 23 - 31 mmol/L 10/05/2020 2:36 PM [facility] Calcium 9.7 8.4 - 10.4 mg/dL 10/05/2020 2:36 PM [facility] Anion Gap 13 8 - 18 mmol/L 10/05/2020 2:36 PM [facility] Comment:Attention clinician: ??Reference Range change. BUN 10 9.8 - 20.1 mg/dL 10/05/2020 2:36 PM [facility] Creatinine 0.74 0.57 - 1.11 mg/dL 10/05/2020 2:36 PM [facility] Alkaline Phosphatase 181(H) 40 - 150 U/L 10/05/2020 2:36 PM [facility] Comment:Attention clinician: ??Reference Range change. ALT 90(H) 0 - 61 U/L 10/05/2020 2:36 PM GANG MINER [facility] AST 36(H) 5 - 34 U/L 10/05/2020 2:36 PM [facility] Protein Total 7.4 6.4 - 8.3 gm/dL 10/05/2020 2:36 PM [facility] Albumin 4.1 3.5 - 5.2 gm/dL 10/05/2020 2:36 PM [facility] Bilirubin Total 0.4 0.2 - 1.2 mg/dL 10/05/2020 2:36 PM [facility] Comment:Attention clinician: ??Reference Range change. eGFR by MDRD >60 >60 mL/min/1.7 3m2 10/05/2020 2:36 PM [facility] eGFR by MDRD >60 >60 mL/min/1.7 3m2 10/05/2020 2:36 PM [facility] Blood BLOOD SPECIMEN / Unknown Venipuncture / Unknown 10/05/2020 2:12 PM GANG MINER 10/05/2020 2:17 PM [facility] Santi Kemp PA-C LAB - CHEMISTRY AILYN Edouard Organization Address City/State/ZIP Co de Phone Number [facility] [address] [id number] from Last 3 Months or Most Recently Relevant to Health Maintenance Care Teams Parts Counter Clerk Relationship Specialty Start Date End Date Ramonita Crawford, DATABASE ADMINISTRATION ASSOCIATE-DIRECTOR OF TESTING [address] [id number] PCP - General Nurse Practitioner 11/29/23
--- OUTSIDE RECORDS SUMMARY | 2024-09-03 19:34 | XMS_ITS | Encounter Summary ---
Author Organization [facility] Address [address] [place] [address] Care Team Providers Care Duplicate Maker Name Role Phone Jeff Guzman PA-C Primary Care Provider [phone] Reason for Visit * Reason Comments Refill Request Encounter Details Date Type Department Care Team (Late st Contact Info) Description 10/19/2023 Refill [facility] - Urology [address] [place] [address] [address] [place] [address] Harleen Celaya M, STATISTICAL CLERK-ENGINE INSPECTOR [address] [place] [phone] Refill Request Social History Tobacco Use Types Packs/Day Years [...] of Binge Drinking Not on file 09/22 Sex and Gender Information Value Date Recorded Sex Assigned at Not on file Gender Identity Not on file Sexual Orientation Not on file documented as of this encounter Plan of Treatment Not on file documented as of this encounter Visit Diagnoses Diagnosis Mixed stress and urge urinary incontinence Mixed incontinence urge and stress (male)(female) documented in this encounter Care Teams Duplicate Maker Relationship Specialty Start Date End Date Jeff Guzman PA-C [address] [place] [phone] PCP - General 08/04/22 11/28/23 documented as of this encounter
--- OUTSIDE RECORDS SUMMARY | 2024-09-03 19:34 | XMS_ITS | Encounter Summary ---
Author Organization [facility] Address [address] [place] [address] Care Team Providers Care Telephone Surveyor Name Role Phone Jeff Guzman PA-C Primary Care Provider [phone] Encounter Details Date Type Department Care Team (Latest Contact Info) Description 08/04/2022 Travel Social History Tobacco Use Types Packs/Day Years [...] on file Sexual Orientation Not on file COVID-19 Exposure Response Date Recorded In the last 10 days, have yo u been in contact with someone who was confirmed or suspected to have Coronavirus/COVID-19? No / Unsure 08/04/2022 10:36 AM DISTRIBUTION TECH documented as of this encounter Plan of Treatment Not on file documented as of this encounter Visit Diagnoses Not on filedocumented in this encounter Care Teams Telephone Surveyor Relationship Specialty Start Date End Date Jeff Guzman PA-C [address] [place] [address] PCP - General 08/04/22 11/28/23 documented as of this encounter
--- OUTSIDE RECORDS SUMMARY | 2024-09-03 19:34 | XMS_ITS | Encounter Summary ---
Author Organization [facility] Address [address] [facility] [place] [address] Care Team Providers Care Computer Language Coder Name Role Phone Unavailable Primary Care Provider Unavailabl e Reason for Visit * Reason Comments Establish Care Encounter Details Date Type Department Care Team (Late st Contact Info) Description 08/02/2022 10:00 AM ASSISTANT WAREHOUSE MANAGER Office Visit [facility] Urology [address] [place] [id number] Harleen Celaya, SUPERVISOR [employer]ET[employer] AND ENVIRONMENT MANAGER [address] [place] [phone] Mixed stress and urge urinary incontinence (Primary Dx); Right flank pain Social History Tobacco Use Types Packs/Day Years [...] Sign Reading Time Taken Comments Blood Pressure 149/80 08/02/2022 9:19 AM ASSISTANT WAREHOUSE MANAGER Pulse 63 08/02/2022 9:19 AM ASSISTANT WAREHOUSE MANAGER Temperature - - Respiratory Rate - - Oxygen Saturation 100% 08/02/2022 9:19 AM ASSISTANT WAREHOUSE MANAGER Inhaled Oxygen Concentration - - Weight 81.6 kg (180 lb) 08/02/2022 9:19 AM ASSISTANT WAREHOUSE MANAGER Height 167.6 cm (5' 6 ) 08/02/2022 9:19 AM ASSISTANT WAREHOUSE MANAGER Body Mass Index 29.05 08/02/2022 9:19 AM ASSISTANT WAREHOUSE MANAGER documented in this encounter Patient Instructions * Patient Instructions* Harleen Celaya APRN-CNP - 08/02/2022 9:55 AM ASSISTANT WAREHOUSE MANAGER -To schedule an appointment please call [phone]. -To reach the [facility]'s office please call [phone]. -For any nursing or surgery questions please call [phone]. -FAX: STANT WAREHOUSE MANAGER documented in this encounter Progress Notes * Harleen Celaya APRN-CNP - 08/02/2022 9:34 AM CST [facility] Division of Urologic Surgery SANDY Frausto Date of Visit: 08/02/2022 Patient Name: Chrissy Kilgore : 1970 Medical Record: [id number] Contact (home) Age: [age] year old Sex: female Referring Physician: Angeles Hernandez MD [address] [facility] [address] [place] [address] Chief Complaint: Urinary incontinence History of Present Illness: The patient is a 52 year old female for complaints of urinary incontinence. Primarily associated with an urge to void and inability to get to the bathroom on time. Pt does have urgency/frequency as well. Uses 1-2 PPD. Pt has not tried kegels or PT for her symptoms. Pt has not tried medications for her symptoms. all . Pt has not had procedures for these symptoms. Pt has not had associated hematuria. Pt has not had associated dysuria. Pt is not diabetic. Pt does not have a history of neurologic disorders. Pt does have have a history of kidney stones. Patient reports has had been having pelvic pressure And pain with a lot of urgency and accidents. She states she was in the tub and began urinating while in the tub without notice. + right flank pain for > 63 months - no gross hematuria Past Medical History; Past Medical History: Diagnosis Date ??? Asthma Past Surgical History: No past surgical history on file. Current Medications: Current Outpatient Medications Medication Sig Dispense Refill ??? albuterol HFA (PROVENTIL;VENTOLIN;PROAIR) 108 (90 Base) MCG/ACT inhaler Inhale 2 (two) puffs bymouth every 4 hours as needed 1 g 0 ??? cetirizine (ZyrTEC) 10 MG tablet Take 1 (one) tablet by mouth once daily ??? diazePAM (Valium) 10 MG tablet INSERT 1 TABLET IN VAGINA EVERY NIGHT FOR 10 NIGHTS . DO NOT USEORALLY ??? Docusate Sodium (DSS) 100 MG Take 1 capsule by mouth 2 times daily ??? EPINEPHrine (Epipen) 0.3 MG/0.3ML auto-injector pen INJECT 0.3 ML(0.3 MG TOTAL) IN THE MUSCLE INSTRUCTED NEEDED FOR ANAPHYLAXIS; CALL 911 AFTER USE ??? fluticasone propionate (Flonase) 50 MCG/ACT nasal spray SHAKE LIQUID AND USE 1 SPRAY IN EACH NOSTRIL DAILY NEEDED FOR NASAL CONGESTION ??? LORazepam (Ativan) 0.5 MG tablet TAKE 1 TABLET(0.5 MG) BY MOUTH EVERY NIGHT NEEDED FOR INSOMNIA ??? metoprolol succinate XL 24hr (Toprol XL) 25 MG tablet ??? montelukast (Singulair) 10 MG tablet TAKE 1 TABLET(10 MG) BY MOUTH EVERY NIGHT ??? pantoprazole EC (Protonix) 40 MG tablet TAKE 1 TABLET(40 MG) BY MOUTH DAILY ??? rosuvastatin (Crestor) 5 MG tablet Take 1 (one) tablet by mouth once daily ??? sacubitril-valsartan (Entresto) 24-26 MG tablet Take 1 (one) tablet by mouth every 12 hours ??? tiZANidine (Zanaflex) 4 MG tablet Take 1 (one) tablet by mouth every 8 hours as needed ??? traMADol (Ultram) 50 MG tablet Take 1 (one) tablet by mouth every 8 hours as needed No current facility-administered medications for this visit. Allergies; Latex, Amoxicillin, Penicillins, Tamoxifen, and Sulfamethoxazole w-trimethoprim Family History: No family history on file. Social History: Social History Socioeconomic History ??? Marital status: Spouse name: Not on file ??? Number [...] ??? Drug use: Never ??? Sexual activity: Not on file Other Topics Concern ??? Not on file Social History Narrative ??? Not on file Social Determinants of Health Financial Resource Strain: Not on file Food Insecurity: Not on file Transportation Needs: Not on file Physical Activity: Not on file Stress: Not on file Social Connections: Not on file Intimate Partner Violence: Not on file Housing Stability: Not on file Review of Systems: General: Negative Skin: Negative Eyes: Negative Ears/nose/mouth: Negative Lungs:Negative Heart:Negative Gastrointestinal: Genitourinary: See HPI Musculoskeletal: Negative Nervous system: Negative Reproductive system: Negative Hematologic: Negative Lymphatic: Negative Endocrine: Negative Physical Exam: Gen: Alert and oriented x3 Head: normocephalic Lungs: Non-labored respirations Heart: RRR Abd: soft, nontender, nondistended : no CVA tenderness, no suprapubic pain MSK: normal gait and strength Skin: No rashes Vital Signs: BP 149/80 Pulse 63 Ht 5' 6 (1.676 m) Wt 180 lb (81.6 kg) SpO2 100% PVR per bladder scanner: 62 ml Imaging (images and reports reviewed): None Laboratory Studies: Office Visit on 08/02/22 URINALYSIS AUTO - POINT OF CARE (AMB) [facility] Result Value Ref Range Glucose UA NEG Bilirubin UA POCT NEG Ketones UA POCT NEG Specific [place]ose UA 1.010 Blood Urine POCT NEG pH UA 6.0 Protein UA NEG Urobilinogen UA - 3.5 umol/L Nitrite UA NEG WBC UA NEG Microbiology: None Pathology: None Diagnosis: Mixed urinary incontinence (OAB) Recommendations: We discussed the various treatment options for these symptoms to include dietary/behavioral modification (instructions provided in AVS), medical therapy with anticholinergics or myrbetriq, neuromodulation with tibial nerve stimulation or interstim, and cystoscopy with bladder botox injections. R/B of all of the above explained today. Pt does need further workup to include renal ultrasound- for pelvic pain, right flank pain and trial of Vesicae with 3 mo fu with PVR and symptom check. Patient's questions were answered and patient agrees with plan. Patient was given the Bladder Matters Booklet This booklet summarizes what an overactive bladder is and the burdens of an over active bladder. The basics of how the urinary tract works and factors that put you at risk, related disorders. This book also teaches a patient how to take control with lifestyle changes, retraining the bladder, pelvic floor muscle exercises and options for drug therapy This booklet has options for the patient help track progress with a bladder diary and there management options. SANDY Frausto 08/02/2022 9:34 AM STANT WAREHOUSE MANAGER documented in this encounter Plan of Treatment Not on file documented as of this encounter Procedures Procedure Name Priority Date/Time Associated Diagnosis Comments URINALYSIS AUTO - POINT OF CARE (AMB) [facility] Routine 08/02/2022 Mixed stress and urge urinary incontinence documented in this encounter Results * URINALYSIS AUTO - POINT OF CARE (AMB) [facility] (08/02/2022) Glucose UA NEG Bilirubin UA POCT NEG Ketones UA POCT NEG Specific [place]ellerose UA 1.010 Blood Urine POCT NEG pH UA 6.0 Protein UA NEG Urobilinogen UA - 3.5 umol/L Nitrite UA NEG WBC UA NEG Urine URINE / Unknown 08/02/2022 Har[facility] - POINT O F CARE ORDERABLES documented in this encounter Visit Diagnoses Diagnosis Mixed stress and urge urinary incontinence- Primary Mixed incontinence urge and stress (male)(female) Right flank pain Abdominal pain, unspecified site documented in this encounter
--- OUTSIDE RECORDS SUMMARY | 2024-09-03 19:34 | XMS_ITS | Encounter Summary ---
Author Organization [facility] Address [address] [facility] [place] [address] Care Team Providers Care Janitor Helper Name Role Phone Jeff Guzman PA-C Primary Care Provider [phone] Reason for Visit * Reason Onset Date Comments Reminder Call 11/25/2023 new pt call pt chantal ruiz to arrive 30 min prior to appt Encounter Details Date Type Department Care Team (Late st Contact Info) Description 11/25/2023 Telephone [facility] - SUBSTATION OPERATOR CHIEF [address] [facility] [facility] [address] [place] [address] Lilliana Mendenhall [place] [address] [place] Reminder Call (new pt call pt aware to arrive 30 min prior to appt) Social History Tobacco Use Types Packs/Day Years [...] on file documented as of this encounter Miscellaneous Notes * Telephone Encounter - Lilliana Mendenhall - 11/25/2023 3:49 PM CDT new pt call pt aware to arrive 30 min prior to appt called on 11/23 documented in this encounter Plan of Treatment Not on file documented as of this encounter Visit Diagnoses Not on filedocumented in this encounter Care Teams Janitor Helper Relationship Specialty Start Date End Date Jeff Guzman PA-C [address] [facility] [address] [place] [address] [place] [phone] PCP - General 08/04/22 11/28/23 documented as of this encounter
--- OUTSIDE RECORDS SUMMARY | 2024-09-03 19:34 | XMS_ITS | Referral Summary ---
Author Organization [facility] Address [address] [facility] [place] [address] Care Team Providers Care System Planning Engineer Name Role Phone Ramonita Crawford PAOLA-VETERINARY TECHNOLOGY INSTRUCTOR Primary Care Provider Source Comments [facility],non-owned Affiliates and Associated Physician Practices is amultiple site organization consisting of ambulatory clinics and hospital sitesin [place], [place], [place] and [place]. This disclosure is being madepursuant to the Care Everywhere program and may not contain all information available regarding this patient. Last updated 18.[facility] Allergies Active Allergy Reactions Criticality Noted [...] 11/29/2023 11/29/2023 CVA (cerebral vascular accident) 05/23/2019 11/29/19 24 11/29/2023 Social History Tobacco Use Types Packs/Day Years [...] AM CDT Pulse 63 08/02/2022 9:19 AM FRONT DESK ADMIN Temperature 35.9 ??C (96.6 ??F) 11/29/2023 9:27 AM CD T Respiratory Rate 19 10/05/2020 3:30 PM FRONT DESK ADMIN Oxygen Saturation 100% 08/02/2022 9:19 AM FRONT DESK ADMIN Inhaled Oxygen Concentration - - Weight 82.6 kg (182 lb 3.2 oz) 11/29/2023 9:27 A M CDT Height 167.6 cm (5' 6 ) 11/29/2023 9:27 AM CDT Body Mass Index 29.41 11/29/2023 9:27 AM CDT Plan of Treatment Not on file Procedures Procedure Name Priority Date/Time Associated Diagnosis Comments COMPREHENSIVE METABOLIC PANEL STAT 10/05/2020 2:12 PM FRONT DESK ADMIN from Last 3 Months or Most Recently Relevant to Health Maintenance Results * (ABNORMAL) COMPREHENSIVE METABOLIC PANEL (10/05/2020 2:12 PM FRONT DESK ADMIN) Glucose 135(H) 70 - 105 mg/dL 10/05/2020 2:36 PM [facility] Sodium 142 136 - 145 mmol/L 10/05/2020 2:36 PM [facility] Potassium 3.3(L) 3.5 - 5.1 mmol/L 10/05/2020 2:36 PM [facility] Chloride 106 98 - 107 mmol/L 10/05/2020 2:36 PM [facility] CO2 23 23 - 31 mmol/L 10/05/2020 2:36 PM [facility] Calcium 9.7 8.4 - 10.4 mg/dL 10/05/2020 2:36 PM [facility] Anion Gap 13 8 - 18 mmol/L 10/05/2020 2:36 PM [facility] Comment:Attention clinician: ??Reference Range change. BUN 10 9.8 - 20.1 mg/dL 10/05/2020 2:36 PM [facility] Creatinine 0.74 0.57 - 1.11 mg/dL 10/05/2020 2:36 PM [facility] Alkaline Phosphatase 181(H) 40 - 150 U/L 10/05/2020 2:36 PM [facility] Comment:Attention clinician: ??Reference Range change. ALT 90(H) 0 - 61 U/L 10/05/2020 2:36 PM [facility] AST 36(H) 5 - 34 U/L 10/05/2020 2:36 PM [facility] Protein Total 7.4 6.4 - 8.3 gm/dL 10/05/2020 2:36 PM [facility] Albumin 4.1 3.5 - 5.2 gm/dL 10/05/2020 2:36 PM [facility] Bilirubin Total 0.4 0.2 - 1.2 mg/dL 10/05/2020 2:36 PM [facility] Comment:Attention clinician: ??Reference Range change. eGFR by MDRD >60 >60 mL/min/1.7 3m2 10/05/2020 2:36 PM FRONT DESK ADMIN [facility] eGFR by MDRD >60 >60 mL/min/1.7 3m2 10/05/2020 2:36 PM FRONT DESK ADMIN [facility] Blood BLOOD SPECIMEN / Unknown Venipuncture / Unknown 10/05/2020 2:12 PM FRONT DESK ADMIN 10/05/2020 2:17 PM FRONT DESK ADMIN Santi Kemp PA-C LAB - CHEMISTRY AILYN [facility] Organization Address City/State/ZIP Co de Phone Number [facility] [address] [place] [address] from Last 3 Months or Most Recently Relevant to Health Maintenance Care Teams System Planning Engineer Relationship Specialty Start Date End Date Ramonita Crawford, BUSINESS SUPPORT LIAISON-VETERINARY TECHNOLOGY INSTRUCTOR [address] [facility] [address] [phone] PCP - General Nurse Practitioner 11/29/23
--- OUTSIDE RECORDS SUMMARY | 2024-09-03 19:34 | XMS_ITS | Encounter Summary ---
Author Organization [facility] Address [address] [place] [address] Care Team Providers Care Grain Elevator Motor Starter Name Role Phone Ramonita Crawford Primary Care Provider Encounter Details Date Type Department Care Team (Latest Contact Info) Description 11/29/2023 Travel Social History Tobacco Use Types Packs/Day [...] on filedocumented in this encounter Care Teams Grain Elevator Motor Starter Relationship Specialty Start Date End Date Ramonita Crawford APRN-CNP [address] [phone] PCP - General Nurse Practitioner 11/29/23 documented as of this encounter
--- OUTSIDE RECORDS SUMMARY | 2024-09-03 19:34 | XMS_ITS | Encounter Summary ---
Author Organization [facility] Address [address] [facility] [place] [address] Care Team Providers Care Garden Machinery Mechanic Name Role Phone Jeff Guzman PA-C Primary Care Provider [phone] Encounter Details Date Type Department Care Team (Latest Contact Info) Description 10/07/2023 Travel Social History Tobacco Use Types Packs/Day [...] on filedocumented in this encounter Care Teams Garden Machinery Mechanic Relationship Specialty Start Date End Date Jeff Guzman PA-C [facility] [facility] [place] [phone] PCP - General 08/04/22 11/28/23 documented as of this encounter
--- OUTSIDE RECORDS SUMMARY | 2024-09-03 19:35 | XMS_ITS | Referral Summary ---
Author Organization [address] Address [address] [place] [id number] Care Team Providers Care Shoer Name Role Phone Angeles Hernandez MD Unavailable [phone] Ramonita Crawford NP Primary Care Provider [phone] Allergies Active Allergy Reactions Criticality Noted Date Comments Sulfamethoxazole-Trimet hoprim Itching,Swelling Medium 10/28/2021 Facial swelling & widespread itching Latex Hives,Urticaria Medium 02/07/2017 Penicillins Hives,Anaphylaxis High 10/23/2019 Anaphylaxis Tamoxifen Hives Medium 04/17/2021 Medications EPINEPHrine 0.3 mg/0.3 mL auto-injection syringeIndication s:Moderate persistent asthma with exacerbation INJECT 0.3 ML(0.3 MG TOTAL) IN THE MUSCLE INSTRUCTED NEEDED FOR ANAPHYLAXIS; CALL 911 AFTER USE 2 each 3 01/26/20 22 Active cetirizine (ZyrTEC) 10 mg tabletIndications :Seasonal allergic rhinitis due to pollen TAKE 1 TABLET BY MOUTH DAILY 30 tablet 50 05/13/20 22 Active Additional Information Patient taking differently: 10 mg oral Every morning, Indications: Allergic Rhinitis, Informant: Self, Reported on 06/02/2023 albuterol (PROAIR DIGIHALER) 90 mcg/actuation inhaler Inhale 2 puffs every 6 (six) hours as needed for wheezing 1 each 2 08/06/20 22 Active Additional Information Patient taking differently:2 puff inhalation Every 6 hours PRN, wheezing,Indications: Acute Asthma Attack, Informant: Self, Reported on 06/02/2023 levalbuterol (XOPENEX) 1.25 mg/3 mL nebulizer solution Take 3 mL (1.25 mg total) by nebulization every 6 (six) hours as needed for wheezing 72 mL 2 08/06/[address] (PROTONIX) 40 mg EC tabletIndications :Gastroesophageal reflux disease with esophagitis without hemorrhage Take 1 tablet (40 mg total) by mouth daily 90 tablet 1 08/27/19 23 Active Additional Information Patient taking differently:40 mg oralEvery morning, Indications: Treatment of Non-Bleeding Gastric Disorder, Informant: Self, Reported on 06/02/2023 montelukast (SINGULAIR) 10 mg tabletIndications :Seasonal allergic rhinitis due to pollen Take 1 tablet (10 mg total) by mouth nightly 90 tablet 1 08/27/19 23 Active Additional Information Patient taking differently:10 mg oral Nightly,Indications: Maintenance Therapy for Asthma, Informant: Self, Reported on 06/02/2023 fluticasone propionate (FLONASE) 50 mcg/actuation nasal spray Administer 2 sprays into each nostril daily 1 each 3 09/06/19 23 Active Additional Information Patient taking differently:2 spray each nostrilEvery morning, Indications: Allergic Rhinitis, Informant: Self, Reported on 06/02/2023 rosuvastatin (CRESTOR) 5 mg tabletIndications :Hypercholesterem ia TAKE 1 TABLET(5 MG) BY MOUTH DAILY 30 tablet 1 11/26/19 23 Active Additional Information Patient taking differently: 5 mg oral Every morning, Indications: hyperlipidemia, Informant: Self, Reported on 06/02/2023 docusate sodium (COLACE) 100 mg capsuleIndication s:Drug-induced constipation TAKE 1 CAPSULE BY MOUTH TWICE DAILY 60 capsule 2 11/30/19 23 Active Additional Information Patient taking differently: 100 mg oral 2 times daily, Indications: constipation, Informant: Self, Reported on 06/02/2023 Entresto 24-26 mg tablet TAKE 1 TABLET BY MOUTH EVERY 12 HOURS 60 tablet 1 12/16/19 23 Active Additional Information Patient taking differently: 1 tablet oral 2 times daily, Indications: cardiomyopathy, Informant: Self, Reported on 06/02/2023 tiZANidine (ZANAFLEX) 4 mg tabletIndications :Muscle pain TAKE 1 TABLET(4 MG) BY MOUTH EVERY 8 HOURS NEEDED FOR MUSCLE SPASMS 90 tablet 01/15/20 23 Active Additional Information Patient taking differently: 4 mg oral 3 times daily, Indications: Muscle Spasm, Informant: Self, Reported on 06/02/2023 amitriptyline (ELAVIL) 10 mg tabletIndications :Irritable Bowel Syndrome Take 1 tablet (10 mg total) by mouth nightly at bedtime 04/05/20 23 Active carvediloL (COREG) 3.125 mg tabletIndications :hypertension Take 1 tablet (3.125 mg total) by mouth 2 (two) times a day with meals 04/22/20 Active clotrimazole 1 % cream as needed 04/05/20 23 Active mupirocin (BACTROBAN) 2 % ointment Apply 1 Application topically as needed 04/05/20 23 Active solifenacin (VESIcare) 10 mg tabletIndications :Urinary Urge Incontinence Take 1 tablet (10 mg total) by mouth every morning 04/22/20 23 Active LORazepam (ATIVAN) 0.5 mg tabletIndications :XENA (generalized anxiety disorder) Take 2 tablets (1 mg total) by mouth every 12 (twelve) hours as needed (Abdominal spasms) 14 tablet 05/11/20 23 Active Additional Information Patient taking differently:1 mg oral Every 12 hours PRN,anxiety, Abdominal spasms, Informant: Self, Reported on 06/02/2023 omega-3 fatty acids (FISH OIL CONCENTRATE ORAL)Indications: high triglycerides Take 2,000 mg by mouth every morning Active prednisoLONE acetate (PRED FORTE) 1 % ophthalmic suspension Administer 1 drop into the right eye 4 (four) times a day 4 times daily (when you wake up, lunch, dinner, bedtime). To decrease inflammation. 5 mL 07/04/20 Active sertraline (ZOLOFT) 50 mg tablet Take 1 tablet (50 mg total) by mouth daily 09/19/19 24 Active Active Problems Problem Noted Date Diagnosed Date Postop check 06/22/2023 Assessment & Plan (06/22/2023 9:16 AM CDT): Assessment/Plan 1. POD #1 s/p CE/PCIOL OD - Doing well - Prednisolone QID OD - Ofloxacin QID OD - Reviewed signs/symptoms endophthalmitis, RT/RD; patient to call immediately if any worsening vision, pain, redness, flashes/floaters/curtains - No lifting/bending/swimming. [place] shield while sleeping, protective eyewear during day. - RTC 1 week Ocular hypertension 05/20/2023 Assessment & Plan (05/20/2023 9:29 AM CDT): Intraocular pressure (IOP) okay low 20s HFV full monitor Chronic right upper quadrant pain 05/10/2023 Opioid overdose 05/10/2023 S/P ERCP 05/10/2023 Bilious vomiting with nausea 05/10/2023 Right upper quadrant pain 04/12/2023 Primary osteoarthritis of right knee 12/18/2021 Assessment & Plan (12/18/2021 10:37 AM CDT): Chronic condition newly diagnosed with x-ray. May use anti-inflammatories as tolerated consider turmeric or natural alternatives including glucosamine chondroitin. Snoring 08/12/2021 Overview (08/12/2021): refer to sleep medicine Abnormal leg movement 08/12/2021 Overview (08/12/2021): refer to sleep medicine Fatigue 08/12/2021 Psychophysiological insomnia 08/12/2021 Assessment & Plan (01/26/2022 4:09 PM CDT): Chronic condition Not well controlled Start ativan 0.5mg qhs XENA (generalized anxiety disorder) 08/12/2021 Assessment & Plan (09/06/2022 9:29 AM FUNERAL SERVICE LICENSEE): Chronic stable and well Controlled Continue ativan refill today Assessment & Plan (01/26/2022 4:10 PM CDT): Chronic and uncontrolled Start atarax 25mg tid Nonsmoker 08/12/2021 Overweight 08/12/2021 Atypical lobular hyperplasia (ALH) of left breas t 08/05/2021 Family history of breast cancer 08/05/2021 Breast cancer screening, high risk patient 08/05 Encounter for screening mammogram for breast can cer 08/05/2021 Family history of pancreatic cancer 08/05/2021 Essential hypertension 05/26/2021 Assessment & Plan (09/06/2022 9:29 AM FUNERAL SERVICE LICENSEE): Chronic stable and at goal Continue with metorprolol Assessment & Plan (01/26/2022 4:28 PM CDT): Chronic condition stable well controlled continue hydralazine Assessment & Plan (11/18/2021 11:12 AM CDT): Chronic condition Stable and well control at goal with hydralazine Assessment & Plan (10/06/2021 4:50 PM FUNERAL SERVICE LICENSEE): Chronic condition well-controlled stable but off metoprolol due to sinus bradycardia. She is currently on Holter monitor being followed by Cardiology. Assessment & Plan (07/07/2021 10:28 AM FUNERAL SERVICE LICENSEE): Chronic condition improved control with metoprolol will continue with dosing at this time as her blood pressure is good at goal today. I got 118/78 after rechecking in the office. Assessment & Plan (06/09/2021 9:48 AM CDT): D\c amlodipine/benazepril Start metoprolol xl 25mg Assessment & Plan (05/26/2021 10:40 AM CDT): Chronic condition New diagnosis Start lotrel 5/10 qd Hypercholesteremia 05/18/2021 Assessment & Plan (11/18/2021 11:12 AM CDT): Chronic and well corrected with crestor Assessment & Plan (10/06/2021 4:52 PM FUNERAL SERVICE LICENSEE): Chronic condition at goal rosuvastatin has made significant reduction in LDL will continue with current regimen CK is normal. AST ALT no nd normal Assessment & Plan (07/07/2021 10:17 AM FUNERAL SERVICE LICENSEE): Chronic condition Start crestro 5mg Repeat lft ck and lipid panel in 3mo Assessment & Plan (06/09/2021 9:53 AM CDT): Chronic condition Uncontrolled Intolerant to atorvastatin / add to allergy list Assessment & Plan (05/26/2021 10:41 AM CDT): Chronic condition Uncontrolled Start atrovastatin 40mg every day Recheck cmp lipid in 3mo Assessment & Plan (05/18/2021 11:53 AM CDT): Making dietary changes. Order lipid panel in 1 mo [facility] ([facility] COVID-19 04/16/2021 Vitreous syneresis of both eyes 08/26/2020 Assessment & Plan (01/11/2023 8:42 AM CDT): + extensive vitreous opacities peripherally OU Assessment & Plan (08/26/2020 11:38 AM FUNERAL SERVICE LICENSEE): Significant floaters both eyes (OU), but tolerable for patient for now. Will plan for YAG cap OS first. I will see her again after the act to determine if her symptoms are improved and also to monitor the macular pucker. Visual disturbance 07/29/2020 Assessment & Plan (07/29/2020 4:18 PM FUNERAL SERVICE LICENSEE): +white light in vision left eye (OS) only with eyes closed +reports h/o black out vision left eye (OS) 2-3 times previously; last episode was 1 year ago -denies numbness, tingling, weakness -prior symptoms concern for amaurosis fugax and newer symptoms of white light concerning -recommend carotid doppler; will notify PCP Pseudophakia of right eye 07/29/2020 Overview (09/23/2023): S/p CE/PCIOL OD 06/21/2023 Assessment & Plan (09/23/2023 10:46 AM FUNERAL SERVICE LICENSEE): 2 months s/p Right Extraction Cataract - Phacoemulsification And Lens Implant - Right Doing well off all drops. MRX today to 20/20. Early PCO Assessment & Plan (07/04/2023 10:14 AM FUNERAL SERVICE LICENSEE): POW1 Right Extraction Cataract - Phacoemulsification And Lens Implant - Right Tapered off drops - restart QID Postoperative instructions were given. The patient is to use: Taper PF 3-2-1 D/C Moxi Signs, symptoms of retinal detachment, tear, hole, and endophthalmitis and hypotony were reviewed and the patient is to call immediately for concerns. They can resume normal activity. We discussed that things should improve until they stabilize. Should there be any worsening of pain, vision, or redness the patient is to call. Assessment & Plan (05/20/2023 9:36 AM CDT): Patient reports significant issues with nighttime glare Interested in pursuing cataract surgery right eye (OD), understands that there is a small epiretinal membrane (ERM) right eye (OD) that may limit visual potential (like her left eye) We discussed the risks, benefits, and alternatives, and the patient chooses to proceed with surgery. We discussed the target and the patient elects target plano/distance Book Phaco/IOL/ right eye. [id number]. 30 minutes MAC IOLM done Assessment & Plan (02/18/2023 8:32 AM CDT): Glare and halos BAT mildly significant Follow IOL Master in 2 months, sooner for concerns Assessment & Plan (01/11/2023 8:42 AM CDT): Her cups are also somewhat larger and IOP at high end of normal Assessment & Plan (09/15/2020 8:13 AM FUNERAL SERVICE LICENSEE): Not yet VS BAT 20/[address] Moscoso for her routine eye care - back to me when VS Assessment & Plan (08/26/2020 11:38 AM FUNERAL SERVICE LICENSEE): SHE WILL CONTINUE TO FOLLOW WITH DR. Yuen Assessment & Plan (07/29/2020 4:20 PM FUNERAL SERVICE LICENSEE): Mild; not yet VS -follow PCO (posterior capsular opacification), left 03/2020 Assessment & Plan (02/18/2023 8:31 AM CDT): Open PC Clear view Assessment & Plan (09/15/2020 8:14 AM FUNERAL SERVICE LICENSEE): PCO OS VS with glare Aware will not change ERM Plan for YAG OS today Follow 4 weeks, then to Dr. Moscoso thereafter Assessment & Plan (08/26/2020 11:38 AM FUNERAL SERVICE LICENSEE): Has mild PCO OS. Will send for YAG Cap to see if helps patient's constant blurriness . Patient understands that this will not improve floaters or ERM, which would require a retina surgery. Patient tolerates floaters at this time and no metamorphopsia from ERM. I think such a staged approach is reasonable and the patient agreed Assessment & Plan (07/29/2020 4:20 PM FUNERAL SERVICE LICENSEE): -sp cataract extraction (CE) 2 years ago in [place] [facility] VS: consider yag cap after retina eval Epiretinal membrane (ERM) of both eyes 0 Assessment & Plan (09/23/2023 10:45 AM FUNERAL SERVICE LICENSEE): F/u with retina in 3 weeks. Assessment & Plan (05/20/2023 9:28 AM CDT): Some metamorphopsia left eye (OS), patient reports dissatisfaction with vision, will re-refer to retina for eval Assessment & Plan (02/18/2023 8:31 AM CDT): ERM OS Mac OCT next visit to determine if this is contributing to reduced VA OS Assessment & Plan (01/11/2023 8:42 AM CDT): Not visually significant at this point Assessment & Plan (09/15/2020 8:14 AM FUNERAL SERVICE LICENSEE): ERM OU Observing with Dr. Jay Assessment & Plan (08/26/2020 11:22 AM FUNERAL SERVICE LICENSEE): Patient denies metamorphopsia, good visual acuity. Defer intervention at this time for ERM. Assessment & Plan (07/29/2020 4:20 PM FUNERAL SERVICE LICENSEE): left eye (OS)>>OD +pt complains of very bothersome floaters left eye (OS) X 2 year that have been worsening and affecting her vision +patient has significant vitreous strands left eye (OS)>OD; may benefit from pars plana vitrectomy (PPV)/MP left eye (OS) -will schedule eval with retina team Encephalopathy 07/26/2019 CVA (cerebral vascular accident) 05/23/2019 Adjustment disorder with mixed anxiety and depre ssed mood 05/15/2018 Immunizations Name Administration Dates Next Due Influenza, Unspecified 06/09/2021(Deferred: Janki ent Refused) Social History Tobacco Use Types Packs/Day Years Used Date Smoking Tobacco: Never Smokeless Tobacco: Never Tobacco Cessation:Counseling Given: Not Answered Alcohol Use Standard Drinks/Week Comments Never 0 (1 standard drink = 0.6 oz pur e alcohol) Social Connection and Isolat ion Panel [NHANES] Answer Date Recorded In a typical week, how many times do you talk on the phone with family, friends, or neighbors? More than three times a week 05/10/2023 How often do you get togethe r with friends or relatives? More than three times a week 05/10/2023 How often do you attend chur ch or sikh services? Never 05/10/2023 Do you belong to any clubs o r organizations such as jehovah's witness groups, unions, fraternal or athletic groups, or school groups? No 05/10/2023 How often do you attend meet ings of the clubs or organizations you belong to? Never 05/10/2023 Are you , , di vorced, , never , or living with a partner? Living with partner 05/10/2023 AUDIT-C Answer Date Recorded Q1: How often do you have a drink containing alc ohol? Monthly or less 06/21/2023 Q2: How many drinks containi ng alcohol do you have on a typical day when you are drinking? 1 or 2 06/21/2023 Q3: How often do you have si x or more drinks on one occasion? Never 06/21/2023 Overall Financial Resource Strain (CARDIA) Answe r Date Recorded How hard is it for you to pa y for the very basics like food, housing, medical care, and heating? Not hard at all 05/10/2023 PHQ-2 Answer Date Recorded PHQ-2 Total Score (If total score is 3 or more points, staff should administer the PHQ-9) 5 04/30/2022 Hunger Vital Sign Answer Date Recorded Within the past 12 months, y ou worried that your food would run out before you got the money to buy more. Never true 05/10/20 23 Within the past 12 months, t he food you bought just didn't last and you didn't have money to get more. Never true 05/10/2023 PRAPARE - Transportation Answer Date Re corded In the past 12 months, has l ack of transportation kept you from medical appointments or from getting medications? No 04/22 In the past 12 months, has l ack of transportation kept you from meetings, work, or from getting things needed for daily living? No 05/10/2023 Housing Stability Vital Sign Answer Shar e Recorded In the last 12 months, was t here a time when you were not able to pay the mortgage or rent on time? No 05/10/2023 Number of Places Lived in the Last Year Not on f ile 05/10/2023 In the last 12 months, was t here a time when you did not have a steady place to sleep or slept in a longterm (including now)? No 05/10/2023 Personal Safety Answer Date Recorded Have you ever been in or are you currently in a harmful physical or emotional relationship or is someone making you feel afraid or unsafe? 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 FUNERAL SERVICE LICENSEE Gender Identity Female 03/27/2020 5:01 PM CDT Sexual Orientation Lesbian 03/27/2020 5: 01 PM CDT Last Filed Vital Signs Vital Sign Reading Time Taken Comments Blood Pressure 151/76 06/21/2023 10:30 AM CDT Pulse 52 06/21/2023 10:35 AM CDT Temperature 36 ??C (96.8 ??F) 06/21/2023 10:05 AM CDT Respiratory Rate 16 06/21/2023 10:35 AM CDT Oxygen Saturation 100% 06/21/2023 10:35 AM CDT Inhaled Oxygen Concentration - - Weight 86.9 kg (191 lb 8 oz) 06/21/2023 7:50 AM CDT Height 167.6 cm (5' 6 ) 06/21/2023 7:50 AM CDT Body Mass Index 30.91 06/21/2023 7:50 AM CDT Plan of Treatment Not on file Medical Devices Implanted Type Area Advertising Production Manager Device Identifier Shelf Expiration Date Model / Serial / Lot [employer] Acrysof Iq Natural Stableforce Acrysert 6mm 13mm 1 Piece Foldable Sn60wf.185 - [id number] - [id number] Implanted:Qty: 1 on 06/21/2023 by Mary Ann Webster MD at [facility] [place] Right: Eye [employer] [id number] 11/07/2027 SN60WF.18 5 / [id number] / Explanted Type Area Advertising Production Manager Device Identifier Shelf Expiration Date Model / Serial / Lot [employer] Michelle Flexi-Stent 7fr 7cm Small Pigtail Flexible .035in Stent 6574 - [id number] Implanted:Qty: 1 on 05/09/2023 by Jordan Duff MD at [facility] Explanted:Qty: 1 on 05/11/2023 by Jordan Duff MD at [facility] N/A: Pancreas [employer] [id number] 12/21/2027 [id number] / / [id number] [employer] Shreya Wallflex 10mm X 60mm Fully Covered Biliary [id number] - [id number] Implanted:Qty: 1 on 05/09/2023 by Jordan Duff MD at [facility] Explanted:Qty: 1 on 05/11/2023 by Jordan Duff MD at [facility] N/A: Bile Duct [employer] Shreya 03/01/2025 [id number] / / [id number] Procedures Procedure Name Priority Date/Time Associated Diagnosis Comments SCREENING MAMMOGRAM BILATERAL W AVERY Schedule Routine, Read Routine (OP Routine) 06/09/2023 3:52 PM CDT Screening mammogram, encounter for from Last 3 Months or Most Recently Relevant to Health Maintenance Results * Screening Mammogram Bilateral W [place] (06/09/2023 3:52 PM CDT) Anatomical Region Laterality Modality Breast Bilateral Mammography 06/09/2023 4:26 PM CDT Impressions 06/09/2023 4:26 PM CDT There is no mammographic evidence of malignancy. A 1 year screening mammogram is recommended. BI-RADS: 2 - Benign. The patient has been or will be contacted. The patient will be entered into a reminder system with a target due date of 1 year for her next mammogram. Electronically signed by: Duane Mejía M.D. Narrative 06/09/2023 4:26 PM CDT EXAMINATION: SCREENING MAMMOGRAM BILATERAL W AVERY ORDERING HEALTHCARE PROVIDER: SELF SCREENING MAMMOGRAM HISTORY: Routine screening mammography. COMPARISON: ??07/23/2022, 05/18/2022, 12/10/2020 TECHNIQUE: CC and MLO views of the bilateral breasts were obtained with digital technique using breast tomosynthesis with C view. Computer aided detection was utilized. FINDINGS: DENSITY: There are scattered fibroglandular elements in the bilateral breasts. BREASTS: There are multiple stable benign masses in both breasts. There is no new suspicious finding in either breast on mammogram. us Self Screening Mammogram IMG MAMMO PROCEDURES Fi nal Result from Last 3 Months or Most Recently Relevant to Health Maintenance [place] [address] [place] [address] Advance Directives For more information, please contact: [phone] * Full Code (Latest Code Status on File) Date Activated Date Inactivated Comments 05/09/2023 5:28 PM 05/11/2023 10:17 PM Care Teams Shoer Relationship Specialty Start Date End Date Ramonita Crawford NP [address] [address] PCP - General Family Medicine 02/18/23 Angeles Hernandez MD [address] [place] [address] Referring Physician Gynecology 07/21/21
--- OUTSIDE RECORDS SUMMARY | 2024-09-03 19:35 | XMS_ITS | Continuity of Care Document ---
Author Organization [facility] [employer] Address [address] [place] [address] Phone Care Team Providers Care Boring Mill Set Up Operator Vertical Name Role Phone [facility] [employer] [facility] Unavailable Unavailable Procedures Procedure Date Cataract Surgery Anesthesia; Lens Advance Directives Directive Yes / No Effective Date File Name No Information Encounters Encounter Description Practice Location Reason(s) For Visit Diagnoses Date Provider Providers Copied on Encounter [facility], [address] [place] [address], [id number], tel:[phone] [facility] No Information [facility] [employer] [facility]. [address], [place], [place], [id number], . tel:[phone] Referring Provider: Veena Elise, [address] [place], [address]. tel:[phone] Family History Family Member Type Diagnosis Age At Onset No Information Payers Payer name Insurance type Covered green party ID Dennys albarado(s) [id number] Social History Type Description Quantity Date Captured Comments Sex Female Smoking Status No Information Chief Complaint And Reason For Visit No Information Reason For Referral Reason For Referral No Information History Of Present Illness Encounter Date Complaint History Of Prese nt Illness No Information Functional Status Date Functional Assessmen t No Information Instructions Date Instruction Additional Infor mation No Information Assessments Type Assessment Date No Information Patient Care Teams Name Effective Dates (start - stop) Status Members No Information
--- OUTSIDE RECORDS SUMMARY | 2024-09-03 19:35 | XMS_ITS | Encounter Summary ---
Author Organization [facility] Address [address] [place] [address] Phone Care Team Providers Care Butt Welder Name Role Phone Angeles Hernandez MD Unavailable [phone] Ramonita Crawford NP Primary Care Provider [phone] Reason for Visit * Reason Comments Post-op - Cataract Encounter Details Date Type Department Care Team (Late st Contact Info) Description 06/22/2023 9:00 AM CDT Office Visit [facility] Ophthalmology [address], [address] [place] [address] Mary Ann Webster MD [address] [place] [address] Postop check (Primary Dx) Social History Tobacco Use Types Packs/Day Years [...] often do you attend chur ch or episcopalian services? Never 05/10/2023 Do you belong to any clubs o r organizations such as yarsani groups, unions, fraternal or athletic groups, or [...] place to sleep or slept in a residential (including now)? No 05/10/2023 Personal Safety Answer Date Recorded Have you ever been in or are you currently in a harmful physical or emotional relationship or is someone making you feel afraid or unsafe? 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 POD #1 s/p CE/PCIOL OD - Doing well - Prednisolone QID OD - Ofloxacin QID OD - Reviewed signs/symptoms endophthalmitis, RT/RD; patient to call immediately if any worsening vision, pain, redness, flashes/floaters/curtains - No lifting/bending/swimming. Santillan shield while sleeping, protective eyewear during day. - RTC 1 week I have seen/examined the patient and I agree with the findings/plan of the Resident/Fellow documented in this encounter Miscellaneous Notes * Assessment & Plan Note - Shae Booth MD - 06/22/2023 9:16 AM CDTAssociated Problem(s): Postop check Assessment/Plan 1. POD #1 s/p CE/PCIOL OD - Doing well - Prednisolone QID OD - Ofloxacin QID OD - Reviewed signs/symptoms endophthalmitis, RT/RD; patient to call immediately if any worsening vision, pain, redness, flashes/floaters/curtains - No lifting/bending/swimming. Santillan shield while sleeping, protective eyewear during day. - RTC 1 week documented in this encounter Plan of Treatment Not on file documented as of this encounter Visit Diagnoses Diagnosis Postop check- Primary Follow-up examination, following unspecified surgery documented in this encounter Eye Exam Visual Acuity (Snellen - Linear) Right eye Left eye Dist sc 20/25 slow Tonometry (Applanation, 9:07 AM) Right eye Left eye Pressure 21.5 Pupils Dark Light Shape React APD Right eye 6 5.5 Round Sluggish/Pharm dilat ed None Left eye 6 4 Round Brisk None Neuro/Psych Oriented x3: Yes Mood/Affect: Normal Slit Lamp Exam Right eye Left eye Lids/Lashes Normal Conjunctiva/Sclera White and quiet Cornea temporal edema, wounds valentin ne gative Anterior Chamber Deep, 1+ cell Iris pharm dilated Lens PCIOL in good position Anterior Vitreous syneresis Care Teams Butt Welder Relationship Specialty Start Date End Date Ramonita Crawford NP [address] [address] PCP - General Family Medicine 02/18/23 Angeles Hernandez MD [address] [facility] [address] [place] [address] Referring Physician Gynecology 07/21/21 documented as of this encounter
--- OUTSIDE RECORDS SUMMARY | 2024-09-03 19:35 | XMS_ITS | Encounter Summary ---
Author Organization [facility] Address [address] [place] [address] Phone Care Team Providers Care Signal Apprentice Name Role Phone Angeles Hernandez MD Unavailable [phone] Ramonita Crawford NP Primary Care Provider [phone] Reason for Visit * Reason Onset Date Comments 06/21/2023 Surgery 05/23/2023 Encounter Details Date Type Department Care Team (Late st Contact Info) Description 05/23/2023 Telephone [facility] Ophthalmology [address], [address] [place] [address] Madyson Davila, COA 06/21/2023 Surgery Social History Tobacco Use Types Packs/Day Years [...] often do you attend chur ch or advent services? Never 05/10/2023 Do you belong to any clubs o r organizations such as presybeterian groups, unions, fraternal or athletic groups, or [...] place to sleep or slept in a [place] [facility] [place] (including now)? No 05/10/2023 Personal Safety Answer Date Recorded Have you ever been in or are you currently in a harmful physical or emotional relationship or is someone making you feel afraid or unsafe? 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 Webster Arrival time: 7:45am Surgery is at [facility] Located at [address] [facility] [address], go in Main Entrance then take elevator to first floor. Check in at desk just inside surgery centers door. Remember; nothing to eat after midnight the night before and make sure they have a sweeper driver to drive them home (family member or friend). For the patient's safety, Uber/Taxis are not acceptable transportation after discharge. Bring any consent forms mailed to you on the day of surgery. * Telephone Encounter - Madyson Davila COA - 05/23/2023 2:48 PM CDT Phoned patient to schedule surgery: Discussed surgery date: 06/21/2023 Location: [facility] [] Milly [x] Plan from notes: CEIOL OD, 30 minutes, MAC Allergies: Allergies Allergen Reactions Penicillins Hives and Anaphylaxis Anaphylaxis Drug [Sulfamethoxazole-Trimethoprim] Itching and Swelling Facial swelling & widespread itching Latex Hives and Urticaria Tamoxifen Hives Ascan:[x] yes [] no Emailed: [] Milly Postop appointment: [x] Prep for case: [x] Letter mailed: [x] Prior auth: [x] No PA needed documented in this encounter Plan of Treatment Not on file documented as of this encounter Visit Diagnoses Not on filedocumented in this encounter Care Teams Signal Apprentice Relationship Specialty Start Date End Date Ramonita Crawford NP [address] [address] PCP - General Family Medicine 02/18/23 Angeles Hernandez MD [address] [address] Referring Physician Gynecology 07/21/21 documented as of this encounter
--- OUTSIDE RECORDS SUMMARY | 2024-09-03 19:35 | XMS_ITS | Encounter Summary ---
Author Organization [facility] Healthcare Address [address] [place] [address] Care Team Providers Care Flight Attendant Name Role Phone Angeles Hernandez MD Unavailable [phone] Ramonita Crawford NP Primary Care Provider [phone] Reason for Visit * Auth/Cert (Routine) Specialty Diagnoses / Procedures Referred By Sharlene t Referred To Contact Diagnoses Age-related nuclear cataract of right eye Age-related nuclear cataract of right eye [H25.11] Procedures MD XCAPSL CTRC RMVL INSJ IO LENS PROSTH W/O ECP MD XCAPSL CTRC RMVL INSJ IO LENS PROSTH CPLX WO ECP RIGHT EXTRACTION CATARACT - PHACOEMULSIFICATION AND LENS IMPLANT Referral ID Status Reason Start Date Expiration Date Visits Re quested Visits Authorized [id number] 1 1 Encounter Details Date Type Department Care Team (Latest Contact Info) Description 06/21/2023 9:55 AM CDT - 06/21/2023 10:25 AM CDT Surgery [facility] Operating Room [address] [place] [id number] Mary Ann Webster MD [address] [place] [address] RIGHT EXTRACTION CATARACT - PHACOEMULSIFICATION AND LENS IMPLANT Surgery Details Date/Time Status Location OR Service Patient Class Case Class Case Type Trauma Case? 06/21/2023 9:55 AM Posted [facility]PER[facility] OR 1 Ophthalmology Outpatient Elective Panel 1 Procedure LRB Anes Op Region Wound Class Comments RIGHT EXTRACTION CATARACT - PHACOEMULSIFICATION AND LENS IMPLANT Right Monitor Anesthesia Care Eye Class I - Clean Surgeon Surgeon Role Service Panel Mary Ann Webster MD Primary Ophthalmology 1 documented in this encounter Social History Tobacco Use Types Packs/Day Years [...] often do you attend chur ch or caodaism services? Never 05/10/2023 Do you belong to any clubs o r organizations such as jainism groups, unions, fraternal or athletic groups, or [...] place to sleep or slept in a correction (including now)? No 05/10/2023 Personal Safety Answer Date Recorded Have you ever been in or are you currently in a harmful physical or emotional relationship or is someone making you feel afraid or unsafe? 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 Gender Identity Female 03/27/2020 5:01 PM CDT Sexual Orientation Lesbian 03/27/2020 5: 01 PM CDT documented as of this encounter Last Filed Vital Signs Vital Sign Reading Time Taken Comments Blood Pressure 153/74 06/21/2023 10:25 AM CDT Pulse 52 06/21/2023 10:25 AM CDT Temperature 36 ??C (96.8 ??F) 06/21/2023 10:05 AM CDT Respiratory Rate 14 06/21/2023 10:25 AM CDT Oxygen Saturation 100% 06/21/2023 10:25 AM CDT Inhaled Oxygen Concentration - - Weight 86.9 kg (191 lb 8 oz) 06/21/2023 7:50 AM CDT Height 167.6 cm (5' 6 ) 06/21/2023 7:50 AM CDT Body Mass Index 30.91 06/21/2023 7:50 AM CDT documented in this encounter Discharge Instructions * Discharge Instructions* Mary Ann Webster MD - 06/21/2023 10:03 AM CDT Eye Surgery Post-Op Instructions Your surgeon???s name: Dr. Mary Ann Webster MEDICATIONS: Start using your drops tomorrow. Wait 2-3 minutes between eye drops, with eyes closed gently. Bring all of your eye drops to appointments. EYE PROTECTION: Wear normal glasses, sunglasses or an eye shield at all times over the eye that had surgery. Wear an eye shield with a piece of tape from the forehead to the cheek at night and any time you are sleeping. ACTIVITY: Do NOT bend over below waist - bend at knees. Do NOT lift more than 10 lbs, which is about the weight of a gallon milk. Do NOT strain or do anything that would make your face turn red. Open your mouth when coughing or sneezing. Take a stool softener for constipation. It is okay to shower, but avoid getting dirty water directly in your eye. No swimming. Please call for the following: Decreasing vision Increasing pain or light sensitivity Worsening redness or discharge Flashes of light (even with your eyes closed), new floaters (like a cloud of bugs in your vision), or a curtain falling across your vision Whom to call with concerns: [phone] - [facility] or [phone] - [facility] If after hours, listen to the voicemail for instructions for contacting the [facility] distribution spec. Thank you for entrusting us with your eye care. documented in this encounter Medications at Time of Discharge albuterol (PROAIR DIGIHALER) 90 mcg/actuation inhaler Inhale 2 puffs every 6 (six) hours as needed for wheezing 1 each 2 08/06/2022 amitriptyline (ELAVIL) 10 mg tabletIndications: Irritable Bowel Syndrome Take 1 tablet (10 mg total) by mouth nightly at bedtime 04/05/2023 carvediloL (COREG) 3.125 mg tabletIndications: hypertension Take 1 tablet (3.125 mg total) by mouth 2 (two) times a day with meals 04/22/2023 cetirizine (ZyrTEC) 10 mg tabletIndications: Seasonal allergic rhinitis due to pollen TAKE 1 TABLET BY MOUTH DAILY 30 tablet 50 05/13/2022 clotrimazole 1 % cream as needed 04/05/2023 docusate sodium (COLACE) 100 mg capsuleIndications :Drug-induced constipation TAKE 1 CAPSULE BY MOUTH TWICE DAILY 60 capsule 2 11/29/2022 Entresto 24-26 mg tablet TAKE 1 TABLET BY MOUTH EVERY 12 HOURS 60 tablet 1 12/15/2022 EPINEPHrine 0.3 mg/0.3 mL auto-injection syringeIndications :Moderate persistent asthma with exacerbation INJECT 0.3 ML(0.3 MG TOTAL) IN THE MUSCLE INSTRUCTED NEEDED FOR ANAPHYLAXIS; CALL 911 AFTER USE 2 each 3 01/25/2022 fluticasone propionate (FLONASE) 50 mcg/actuation nasal spray Administer 2 sprays into each nostril daily 1 each 3 09/06/2022 levalbuterol (XOPENEX) 1.25 mg/3 mL nebulizer solution Take 3 mL (1.25 mg total) by nebulization every 6 (six) hours as needed for wheezing 72 mL 2 08/06/2022 LORazepam (ATIVAN) 0.5 mg tabletIndications: XENA (generalized anxiety disorder) Take 2 tablets (1 mg total) by mouth every 12 (twelve) hours as needed (Abdominal spasms) 14 tablet 05/11/2023 montelukast (SINGULAIR) 10 mg tabletIndications: Seasonal allergic rhinitis due to pollen Take 1 tablet (10 mg total) by mouth nightly 90 tablet 1 08/27/2022 mupirocin (BACTROBAN) 2 % ointment Apply 1 Application topically as needed 04/05/2023 omega-3 fatty acids (FISH OIL CONCENTRATE ORAL)Indications:h igh triglycerides Take 2,000 mg by mouth every morning pantoprazole DR (PROTONIX) 40 mg EC tabletIndications: Gastroesophageal reflux disease with esophagitis without hemorrhage Take 1 tablet (40 mg total) by mouth daily 90 tablet 1 08/27/2022 rosuvastatin (CRESTOR) 5 mg tabletIndications: Hypercholesteremia TAKE 1 TABLET(5 MG) BY MOUTH DAILY 30 tablet 1 11/25/2022 solifenacin (VESIcare) 10 mg tabletIndications: Urinary Urge Incontinence Take 1 tablet (10 mg total) by mouth every morning 04/22/2023 tiZANidine (ZANAFLEX) 4 mg tabletIndications: Muscle pain TAKE 1 TABLET(4 MG) BY MOUTH EVERY 8 HOURS NEEDED FOR MUSCLE SPASMS 90 tablet 01/14/2023 acetaminophen (TYLENOL) 500 mg tablet Take 2 tablets (1,000 mg total) by mouth every 6 (six) hours as needed for pain or headaches 09/23/19 24 ofloxacin (OCUFLOX) 0.3 % ophthalmic solution Administer 1 drop into the right eye 4 (four) times a day 4 times a day (when you wake up, lunch, dinner, bedtime) 5 mL 06/21/2023 07/04/20 23 prednisoLONE acetate (PRED FORTE) 1 % ophthalmic suspension Administer 1 drop into the right eye 4 (four) times a day 4 times daily (when you wake up, lunch, dinner, bedtime). To decrease inflammation. 5 mL 06/21/2023 07/04/20 23 documented as of this encounter Ordered Prescriptions Prescription Sig Dispense Quantity Refills Last Filled Start Date End Date prednisoLONE acetate (PRED FORTE) 1 % ophthalmic suspension Administer 1 drop into the right eye 4 (four) times a day 4 times daily (when you wake up, lunch, dinner, bedtime). To decrease inflammation. 5 mL 06/21/2023 3 ofloxacin (OCUFLOX) 0.3 % ophthalmic solution Administer 1 drop into the right eye 4 (four) times a day 4 times a day (when you wake up, lunch, dinner, bedtime) 5 mL 06/21/2023 3 documented in this encounter Discharge Disposition Disposition Code Departure Means Destination Comment s Discharge to home or self care documented in this encounter H&P Notes * Mary Ann Webster MD - 06/21/2023 7:54 AM CDT I have reviewed the H&P, examined the patient, and endorse the findings as written. Plan of Care : Based on the above findings, I consider Chrissy Kilgore to be an acceptable risk for : Procedure(s): RIGHT EXTRACTION CATARACT - PHACOEMULSIFICATION AND LENS IMPLANT Source Note - Yajaira Elliott NP - 06/02/2023 12:33 PM CDT Images from the original note were not included. [facility] for Preoperative Assessment and Planning Preoperative Evaluation Record Evaluation type/location: TPAP from [facility] Planned procedure site: [facility] Date: 06/02/23 NOTE: This note represents a preoperative evaluation initiated via telephone interview. NO PHYSICALEXAM was performed at the time of initial assessment. A physical exam may be added to this note anddocumented below. Anesthesia Evaluation Chrissy Kilgore is a 52 y.o. female Procedure(s): RIGHT EXTRACTION CATARACT - PHACOEMULSIFICATION AND LENS IMPLANT Pre-Op Diagnosis Codes: * Age-related nuclear cataract of right eye [H25.11] HISTORY HPI Chrissy Kilgore is a 52 y.o. female with history of HTN, HLD, aortic stenosis, Takotsubo cardiomyopathy (03/2022), LEX, asthma and right eye cataract who is being evaluated prior to undergoing righteye cataract extraction - phacoemulsification and lens implant Past Medical History Information obtained from: patient and chart. Neurological Pertinent negatives: seizures; neuromuscular disease; CVA/stroke (pt denies. Negative CVA work up 2018) and TIA Cardiovascular + Hypertension Typical systolic BP - 120 Typical diastolic BP - 85 + Hyperlipidemia + Current valvular disease (05/2022 TTE. 02/24/23 OSH TTE without ) - - mild; + Other arrhythmia - bradycardia. Pertinent negatives: CAD ; PA ; CABG ; atrial fibrillation; pacemaker/ICD; DVT/PE; negative for CHF; drug-eluting stent(s) and bare metal stent(s) Comments: Follows with cardiology, Dr Leon Mora at [facility], last seen 1 week ago. Reportsrecent echo in last 2-3 mo, pt reports EF 65% 03/2022 +Takotsubo cardiomyopathy with life vest x 3 mo, stopped wearing 05/2023. 05/2022 Dr Schneider: 1. Recovered Nonischemic cardiomyopathy with severe LV systolic dysfunction. LVEDP 42 mm by cardiaccatheterization on 03/03/2022.Status post cardiac catheterization for abnormal cardiac enzymes on 03/03/2022 at [facility] shows no evidence of coronary artery disease. Her echo today showed LVEF 63%. 2. History of COVID-19 infection February of 2022 with COVID pneumonia. History of Present Illness: Chrissy Kilgroe is a pleasant 51 y.o. female who presents to [facility] with shortness of breath. She had a cardiac enzymes troponin I positive 10.8 on 03/03/2022. She underwent a left heartcardiac catheterization shows no evidence of coronary disease. Her LVEDP was 42 mm. Her echocardiogram shows severe LV systolic dysfunction. She had a echo today. Her LVEF improved to 63%. She is clinically asymptomatic. She is wearing a life vest. Respiratory + Asthma (last used albuterol after mowing grass 1 week ago, reports happens if gets too hot) Dyspnea frequency: 2 days/week or less. Rescue inhaler use: 2 days/week or less. Hospitalizations/ER in the last year: 0. History of oral steroid use. + Sleep apnea (LEX) Prescribed device: CPAP and PAP non-compliant. Pertinent negatives: COPD; no O2 use outside the hospital; no prior intubation for respiratory failure due to asthma and non-smoker Hepatic / Heme + Liver disease (hx elevated LFT s/p bile duct stent) Gastrointestinal + GERD - on daily therapy. Asymptomatic. Comments: 04/2023 s/p ERCP -papillary stenosis which was treated with biliary and pancreatic sphincterotomy and dual duct protective stenting. Renal / + Nephrolithiasis Pertinent negatives: renal disease and dialysis Endocrine / Other Pertinent negatives: diabetes mellitus; thyroid disease; cancer history; transplanted organ and infectious disease Functional Capacity Functional capacity: 4-6 METs Comments: Active around the house and independent in ADLs. Able to walk 4 city blocks without CP orSOB. Review of Systems Pertinent negatives: productive cough; SOB; recent cold/flu; fever; chest pain; orthopnea; pedal edema; PND; previous transfusion; bleeding problems; syncope; dizziness and no unexpected weight change Comments: Denies UTI, URI, open wounds, or other signs and symptoms of infection at this time. PAT Summary and Plans Cardiac risk classification of planned procedure: low cardiac risk. Preoperative assessment status: outside records required. Initial preoperative evaluation discussed with: Shirley Hicks MD Additional comments: Chrissy Kilgore is a 52 y.o. female who is being evaluated prior to undergoing a low cardiac risk surgery. Revised Cardiac Risk Index factors are (none) for a total RCRI of 0 out of 6. Functional capacity is 4-6 METs. Obstructive sleep apnea (LEX) screening status is HIGH RISK due to known LEX. --> Informed to bring PAP device on DOS --> LEX precautions to be considered by surgical team on DOS This assessment was performed via telephone. Therefore the physical exam has been deferred to the day of surgery team. The patient was provided with preoperative instructions for their medications. Patient instructions were provided by telephone and electronically sent via just.me. Patient verbalized understanding of preoperative plan. Blood bank needs for day of procedure: No type and screen needed Pending labs/tests include: None Reviewed unremarkable CMP 08/2022 except elevated LFT and CBC 05/10/23 Requesting OSH cards note and most recent echo -hx mild and Takotsubo CM 03/2022 (chart completion) Preoperative evaluation performed by Yajaira Elliott NP on 06/02/23 at 12:40 PM . Follow up note Cards OVN 05/26/23 reviewed and most recent TTE 02/2023 without significant findings (documented under diagnostics, see below) TPAP assessment complete Follow-up completed by: Yajaira Elliott NP on 06/02/23 at 2:32 PM Patient Active Problem List Diagnosis Date Noted Ocular hypertension 05/20/2023 Chronic right upper quadrant pain 05/10/2023 Opioid overdose (HCC) 05/10/2023 S/P ERCP 05/10/2023 Bilious vomiting with nausea 05/10/2023 Right upper quadrant pain 04/12/2023 Primary osteoarthritis of right knee 12/18/2021 Snoring 08/12/2021 Abnormal leg movement 08/12/2021 Fatigue 08/12/2021 Psychophysiological insomnia 08/12/2021 XENA (generalized anxiety disorder) 08/12/2021 Nonsmoker 08/12/2021 Overweight 08/12/2021 Atypical lobular hyperplasia (ALH) of left breast 08/05/2021 Family history of breast cancer 08/05/2021 Breast cancer screening, high risk patient 08/05/2021 Encounter for screening mammogram for breast cancer 08/05/2021 Family history of pancreatic cancer 08/05/2021 Essential hypertension 05/26/2021 Hypercholesteremia 05/18/2021 COVID-19 04/16/2021 Vitreous syneresis of both eyes 08/26/2020 Visual disturbance 07/29/2020 Age-related nuclear cataract of right eye 07/29/2020 PCO (posterior capsular opacification), left 07/29/2020 Epiretinal membrane (ERM) of both eyes 07/29/2020 Encephalopathy 07/26/2019 CVA (cerebral vascular accident) (HCC) 05/23/2019 Adjustment disorder with mixed anxiety and depressed mood 05/15/2018 Past Medical History: Diagnosis Date Arthritis Asthma Brain concussion [id number] Cardiomyopathy (HCC) Cataract Cholelithiasis Depression [id number] Epiretinal membrane (ERM), bilateral GERD (gastroesophageal reflux disease) Hypercholesteremia Hypertension Irritable bowel syndrome Kidney stone 08/22/2000 Menstrual problem 08/22/2000 Migraines 08/22/2000 Peptic ulceration 0101?? 1 Past Surgical History: Procedure Laterality Date ABDOMINAL SURGERY Bile duct blockage APPENDECTOMY BREAST BIOPSY Left 2012 neg bx CARDIAC DEFIBRILLATOR PLACEMENT 03/02/2022 CATARACT EXTRACTION Left 2016 CHOLECYSTECTOMY COLONOSCOPY DILATION AND CURETTAGE OF UTERUS 07/2012 benign polyp ENDOSCOPIC RETROGRADE CHOLANGIOPANCREATOGRAPHY W/ SPHINCTEROTOMY AND STONE REMOVAL 05/09/2023 stent placement ENDOSCOPIC RETROGRADE CHOLANGIOPANCREATOGRAPHY W/ SPHINCTEROTOMY AND STONE REMOVAL 05/11/2023 stent removal OOPHORECTOMY Left cyst SMALL INTESTINE SURGERY SBO OB History 3 Para 2 Term 2 AB Living SAB IAB Ectopic Multiple Live Births Allergies Allergen Reactions Penicillins Hives and Anaphylaxis Anaphylaxis Drug [Sulfamethoxazole-Trimethoprim] Itching and Swelling Facial swelling & widespread itching Latex Hives and Urticaria Tamoxifen Hives Med List Status: Nurse Complete Set By: Aleja Lentz RN at 06/02/2023 9:22 AM Taking? Last Dose Start Date End Date Provider acetaminophen (TYLENOL) 500 mg tablet 06/01/2023 -- -- Provider, MD Jimbo albuterol (PROAIR DIGIHALER) 90 mcg/actuation inhaler Past Month 08/06/22 -- Jose Luis Barclay MD Inhale 2 puffs every 6 (six) hours as needed for wheezing Patient taking differently: Inhale 2 puffs every 6 (six) hours as needed for wheezing amitriptyline (ELAVIL) 10 mg tablet 06/01/2023 04/05/23 -- Jimbo Packer MD carvediloL (COREG) 3.125 mg tablet 06/02/2023 04/22/23 -- Jimbo Packer MD cetirizine (ZyrTEC) 10 mg tablet 06/02/2023 05/13/22 -- Brijesh Lynch MD TAKE 1 TABLET BY MOUTH DAILY Patient taking differently: Take 1 tablet (10 mg total) by mouth every morning clotrimazole 1 % cream Not Taking 04/05/23 -- Jimbo Packer MD docusate sodium (COLACE) 100 mg capsule 06/02/2023 11/29/22 -- Jose Luis Barclay MD TAKE 1 CAPSULE BY MOUTH TWICE DAILY Patient taking differently: Take 1 capsule (100 mg total) by mouth 2 (two) times a day Entresto 24-26 mg tablet 06/02/2023 12/15/22 -- Jose Luis Barclay MD TAKE 1 TABLET BY MOUTH EVERY 12 HOURS Patient taking differently: Take 1 tablet by mouth 2 (two) times a day EPINEPHrine 0.3 mg/0.3 mL auto-injection syringe Not Taking 01/25/22 -- Brijesh Lynch MD INJECT 0.3 ML(0.3 MG TOTAL) IN THE MUSCLE INSTRUCTED NEEDED FOR ANAPHYLAXIS; CALL 911 AFTER USE Patient not taking: Reported on 06/02/2023 fluticasone propionate (FLONASE) 50 mcg/actuation nasal spray 06/02/2023 09/06/22 -- Jeff Guzman PA Administer 2 sprays into each nostril daily Patient taking differently: Administer 2 sprays into each nostril every morning levalbuterol (XOPENEX) 1.25 mg/3 mL nebulizer solution Not Taking 08/06/22 -- Jose Luis Barclay MD Take 3 mL (1.25 mg total) by nebulization every 6 (six) hours as needed for wheezing Patient not taking: Reported on 06/02/2023 LORazepam (ATIVAN) 0.5 mg tablet 06/01/2023 05/11/23 -- Jordan Duff MD Take 2 tablets (1 mg total) by mouth every 12 (twelve) hours as needed (Abdominal spasms) Patient taking differently: Take 2 tablets (1 mg total) by mouth every 12 (twelve) hours as needed for anxiety (Abdominal spasms) montelukast (SINGULAIR) 10 mg tablet 06/01/2023 08/27/22 -- Jose Luis Barclay MD Take 1 tablet (10 mg total) by mouth nightly Patient taking differently: Take 1 tablet (10 mg total) by mouth nightly mupirocin (BACTROBAN) 2 % ointment Past Month 04/05/23 -- Jimbo Packer MD omega-3 fatty acids (FISH OIL CONCENTRATE ORAL) 06/02/2023 -- -- Jimbo Packer MD pantoprazole DR (PROTONIX) 40 mg EC tablet 06/02/2023 08/27/22 -- Jose Luis Barclay MD Take 1 tablet (40 mg total) by mouth daily Patient taking differently: Take 1 tablet (40 mg total) by mouth every morning rosuvastatin (CRESTOR) 5 mg tablet 06/02/2023 11/25/22 -- Jose Luis Barclay MD TAKE 1 TABLET(5 MG) BY MOUTH DAILY Patient taking differently: Take 1 tablet (5 mg total) by mouth every morning solifenacin (VESIcare) 10 mg tablet 06/02/2023 04/22/23 -- Jimbo Packer MD tiZANidine (ZANAFLEX) 4 mg tablet 06/02/2023 01/14/23 -- Jose Luis Barclay MD TAKE 1 TABLET(4 MG) BY MOUTH EVERY 8 HOURS NEEDED FOR MUSCLE SPASMS Patient taking differently: Take 1 tablet (4 mg total) by mouth 3 (three) times a day -- No current facility-administered medications for this encounter. Current Outpatient Medications: acetaminophen (TYLENOL) 500 mg tablet albuterol (PROAIR DIGIHALER) 90 mcg/actuation inhaler amitriptyline (ELAVIL) 10 mg tablet carvediloL (COREG) 3.125 mg tablet cetirizine (ZyrTEC) 10 mg tablet docusate sodium (COLACE) 100 mg capsule Entresto 24-26 mg tablet fluticasone propionate (FLONASE) 50 mcg/actuation nasal spray LORazepam (ATIVAN) 0.5 mg tablet montelukast (SINGULAIR) 10 mg tablet mupirocin (BACTROBAN) 2 % ointment omega-3 fatty acids (FISH OIL CONCENTRATE ORAL) pantoprazole DR (PROTONIX) 40 mg EC tablet rosuvastatin (CRESTOR) 5 mg tablet solifenacin (VESIcare) 10 mg tablet tiZANidine (ZANAFLEX) 4 mg tablet clotrimazole 1 % cream EPINEPHrine 0.3 mg/0.3 mL auto-injection syringe levalbuterol (XOPENEX) 1.25 mg/3 mL nebulizer solution Social History Tobacco Use Smoking Status Never Smokeless Tobacco Never Alcohol Use: Not At Risk (06/02/2023) AUDIT-C Frequency of Alcohol Consumption: Monthly or less Average Number of Drinks: 1 or 2 Frequency of Binge Drinking: Never Substance and Sexual Activity Drug Use Never Family History Problem Relation Age of Onset Breast cancer Mother 47 Cancer Mother Cancer Father COPD Father No Known Problems Brother No Known Problems Brother Allergy (severe) Brother Alzheimer's disease Maternal Grandmother Stroke Maternal Grandmother Alzheimer's disease Maternal Grandfather Stroke Maternal Grandfather No Known Problems Daughter No Known Problems Daughter Asthma Daughter Depression Daughter Depression Daughter Miscarriages / Stillbirths Daughter Pancreatic cancer Mother's Brother 80 Diabetes Neg Hx Glaucoma Neg Hx Retinal detachment Neg Hx Macular degeneration Neg Hx Thyroid disease Neg Hx Ovarian cancer Neg Hx Thyroid cancer Neg Hx Anesthesia problems Neg Hx There were no vitals filed for this visit. Relevant diagnostics: ECG(s): 10/05/20 (OSH records from care everywhere): SR, Cannot rule out Anterior infarct , age undetermined Echocardiogram(s): 02/24/23 (OSH record, see Epic media tab- 06/02/2023): 06/01/22 LA is normal. Normal RV cavity size. LV cavity size is mildly dilated. Normal LV wall thickness/mass. Normal Inferior vena cava. Normal aorta. No AR seen, No MR seen, mild , no MS, normal TV, normal PV. Diastolic function: Normal.LVEF 63%.Reduced global LV myocardial longitudinal function and strain pattern. Compared to an echo report from OSH on 02/19/2022 , pt had severe LV systolic dysfunction, cath showed clean coronaries. pt EF has recovered , Wall motion improved suggestive of stress induced or reversible form of cardiomyopathy. Stress test(s): N/A Cardiac catheterization(s): N/A PFT(s): N/A Vascular studies: N/A Other: 05/26/23 Cards note (OSH record, see Epic media tab- 06/02/2023): 05/24/19 Brain MRI (OSH records from care everywhere): Unremarkable MR appearance of the brain. No acute intracranial abnormality. Diminutive appearance of the left ocular lens of uncertain significance in this patient with history of left-sided visual changes. Ophthalmological correlation recommended. 05/23/19 CTA neck/head (OSH records from care everywhere): 1. Unremarkable CTA of the head and neck. 2. Unremarkable CT of the head. PT: No results found for requested labs within last 30 days. INR: No results found for requested labs within last 30 days. APTT: No results found for requested labs within last 30 days. Hgb A1C: No results found for requested labs within last 30 days. CBC RBC: 05/10/2023: 4.19 M/cumm RDW: No results found for requested labs within last 30 days. MCHC: 05/10/2023: 33.3 g/dL MCH: 05/10/2023: 29.1 pg MCV: 05/10/2023: 87.4 fL Hct: 05/10/2023: 36.6 % Hgb: 05/10/2023: 12.2 g/dL WBC: 05/10/2023: 7.2 K/cumm MPV: 05/10/2023: 9.4 fL Platelets: 05/10/2023: 289 K/cumm RDW CV: 05/10/2023: 12.3 % RDW Sd: 05/10/2023: 39.0 fL BMP Glucose: No results found for requested labs within last 30 days. Calcium: No results found for requested labs within last 30 days. Sodium: No results found for requested labs within last 30 days. Potassium: No results found for requested labs within last 30 days. CO2: No results found for requested labs within last 30 days. Chloride: No results found for requested labs within last 30 days. BUN: No results found for requested labs within last 30 days. Creatinine: No results found for requested labs within last 30 days. Jeffrey index score: 100 documented in this encounter Miscellaneous Notes * Op Note - Mary Ann Webster MD - 06/21/2023 9:53 AM CDT DATE: 06/21/2023 PREOPERATIVE DIAGNOSIS: Visually significant nuclear sclerotic cataract of right eye. POSTOPERATIVE DIAGNOSIS: Visually significant nuclear sclerotic cataract of right eye. OPERATION PERFORMED: Cataract Extraction with intraocular lens implant right eye. SURGEON: Mary Ann Webster MD SENIOR GL ACCOUNTANT: none ANESTHESIA: MAC with Local INDICATIONS FOR PROCEDURE: The patient complained of blurred vision in the right eye causing difficulty with the activities of daily living. DESCRIPTION OF PROCEDURE: The operative eye was marked, pre-operative drop administered and the patient was brought into the Operating Room, where tetracainedrops were instilled into the eye to be operated on.In the OperatingRoom, mild analgesia and sedation were obtained, and the patient was prepped and draped in the usual sterile fashion. A lid speculum was used to retract the eyelids. A sideportblade was used to make t he sideport incision followed by injection of intracameral lidocaine followed by Viscoat into the anterior chamber. A 2.4mm keratome was used to create the temporal main incision in a triplanar fashion.The capsulorrhexis was initiated and completed using a pair of Crawford forceps, followed by hydrodissection with balanced salt solution on a Nunez cannula. Phacoemulsification was then performed using a divide and conquer technique. Residual cortical lens material was aspirated using the irrigationand aspiration handpiece, and Provisc was used to re-inflate the anterior chamber and capsular bag.The intraocular lens was implanted within the capsular bag using a plunger-based injector system and wound assisted intraocular lens insertion. The intraocular lens (IOL) was positioned well into thecapsular bag. Position was checked using a Kuglen hook to retract iris if the pupil was small. The irrigation and aspiration handpiece was used to remove the viscoelastic from the anterior chamber and capsular bag, and behind the intraocular lens, and the wounds were hydrated to ensure a watertight seal. The eyelid speculum and surgical drapes were removed andantibiotic ointment was placed in the operative eye. The patient???s eye was shielded. The patient was transferred to the Recovery Room in stable condition, and tolerated the procedure well. Intraocular lens: Implant Name Type Inv. Item Serial No. Tie Bucker Lot No. LRB No. Used Action [employer] Acrysof Iq Natural Stableforce Acrysert 6mm 13mm 1 Piece Foldable [id number] - [id number] [employer] Ac[employer]q Natural [employer] Acrysert 6mm 13mm 1 Piece Foldable [id number] [employer] Right 1 Implanted SPECIMENS REMOVED:none ESTIMATED BLOOD LOSS:minimal INTRAOPERATIVE FLUIDS:Per anesthesia SPONGE/INSTRUMENT/NEEDLE COUNTS:correct COMPLICATIONS: None CONDITION ON DISCHARGE FROM OPERATING ROOM:stable * Pre-Procedure Instructions - Yajaira Elliott NP - 06/02/2023 12:18 PM CDT [facility] CPAP Clinic Location: [facility] The night before your surgery: * Do not eat anything after midnight the night before your procedure. and * Do not smoke or use tobacco products after midnight the night before surgery. It is best to stop smoking now to improve your health. The morning of your surgery: * You may have clear liquids on your surgery day. You must stop drinking two hours before you arrive to the surgery facility. Acceptable clear liquids include water, clear sports drinks, black coffee, or clear soda. DO NOT drink any milk, creamer, or alcohol. * Your surgeon's office may have provided additional instructions or restrictions. Please follow those instructions. * You may brush your teeth and rinse your mouth out. * Do not glue your dentures. * Do not wear jewelry, body piercings, makeup, hairpins, false eyelashes or contact lenses to the hospital. * Leave any valuables at home or with your family. * If you are still having menstrual cycles, you should come with a full bladder on the morning of surgery in order to provide a urine sample. * If you have an implantable device with a remote, bring the remote with you on the day of surgery. Outpatient Surgery: * You must have a responsible adult drive you home and stay with you for 24 hours after your surgery * You cannot be alone at home or in a hotel * Please call your surgeon's office if you do not have someone to drive you home and/or stay with you after surgery If you have Sleep Apnea (LEX): * Bring your CPAP/BiPAP/VPAP machine to the hospital the day of your surgery * For a few days after your surgery, you will need to wear your CPAP/ BiPAP/VPAP machine any time your are sleeping. This includes when you take a nap. Instructions For Your Medications: Pre-Surgery Instructions: Medication Instructions acetaminophen (TYLENOL) 500 mg tablet Take on day of surgery if needed albuterol (PROAIR DIGIHALER) 90 mcg/actuation inhaler Take on day of surgery if needed amitriptyline (ELAVIL) 10 mg tablet Take per usual schedule carvediloL (COREG) 3.125 mg tablet Take per usual schedule cetirizine (ZyrTEC) 10 mg tablet Take on day of surgery if needed docusate sodium (COLACE) 100 mg capsule Don't take on day of surgery Entresto 24-26 mg tablet Take per usual schedule fluticasone propionate (FLONASE) 50 mcg/actuation nasal spray Don't take on day of surgery LORazepam (ATIVAN) 0.5 mg tablet Take per usual schedule montelukast (SINGULAIR) 10 mg tablet Take per usual schedule mupirocin (BACTROBAN) 2 % ointment Don't take on day of surgery omega-3 fatty acids (FISH OIL CONCENTRATE ORAL) Don't take on day of surgery pantoprazole DR (PROTONIX) 40 mg EC tablet Take per usual schedule rosuvastatin (CRESTOR) 5 mg tablet Take per usual schedule solifenacin (VESIcare) 10 mg tablet Don't take on day of surgery tiZANidine (ZANAFLEX) 4 mg tablet Take on day of surgery if needed clotrimazole 1 % cream Don't take on day of surgery EPINEPHrine 0.3 mg/0.3 mL auto-injection syringe Take on day of surgery if needed levalbuterol (XOPENEX) 1.25 mg/3 mL nebulizer solution Take on day of surgery if needed General Instructions For Medications: * Stop all of these medications 5 days prior to your surgery: excedrin, motrin, advil, ibuprofen, aleve, naproxen, meloxicam, celebrex, celecoxib. For medications that you are instructed to take on the morning of surgery, take the medications with a few sips of water. Stop all of these medications 7-14 days prior to your surgery: Vitamin E, Herbal medicines, Diet Pills If you use inhalers, please bring them with you on the day of your procedure. If you have pain, you may take tylenol (acetaminophen). Do not take more than 6 tablets or 3000 mg (3 g) within a 24 period. Call your surgeon and the CPAP clinic if any of the following happens before surgery: Any changes in your health You have a fever You have any signs of an infection (chest, urinary tract or tooth) You have been to the Emergency Room or were in the hospital You have started taking any new medications You have questions about a bowel prep or special diet before surgery You have symptoms of COVID-19 such as a new or worsening cough, shortness of breath, fever, body aches, loss of taste or smell, diarrhea or vomiting, or sore throat. You have a household contact with COVID-19. You test positive for COVID-19. * Pre-Procedure Instructions - Aleja Lentz RN - 06/02/2023 9:31 AM CDT [facility] ([facility]) PRE-SURGICAL NURSING INSTRUCTIONS Telephone Assessment General Information Discussed with Patient: Surgery location provided to patient. Arrival time and surgical time will be provided to the patient by their surgeon. You should wear clothing that is clean, loose, comfortable and easy to get in and out of on the dayof surgery. You should remove nail coverings, artificial nails and nail urdu prior to the day of surgery. You should leave your valuables and any jewelry at home. No metal or piercings are allowed in the operating room. You should bring your insurance card, a photo ID (example: Town Administrator's License) and a method of payment for any insurance copay, deductible or copay for discharge medications. You should bring a complete, up-to-date, list of all your medications on the day of surgery, including any over the counter medications or supplements you may take. Please note on your medication list, the last date & time you took each medication. The healthcare team, on the day of surgery, will ask for this information. You should bring your Advanced Directive and/or Living Will with you on the day of surgery if you have not verified a copy is already in your Epic Chart. If you are having surgery at [facility], please arrive on the day of surgery with the name and phone number of your local 24 hour pharmacy. Due to evening discharges, your routine pharmacy may be closed. In order to obtain your prescriptions that evening, your surgeon may need to send prescriptions to this pharmacy or have you take prescriptions to this pharmacy when you are discharged. Without this information, you may not be able to obtain your prescriptions that evening. Eye Surgery Process for Patients: Before the surgery, you will be asked to change into a gown. As you get ready for your surgery, your nurse will ask you questions about your medical history andreview your medications with you. An IV will be placed so that we may administer medication to keep you comfortable. You will meet your surgical team. You will be taken by stretcher to the operating room for your surgery. After your surgery, you will come to the recovery area. A Fall Risk band will be placed on your arm to remind you that you are at higher risk for falling after having eye surgery. You may remove this band after 24 hours. Before you leave, your discharge team will review your medications with you and any special instructions. A Guide for Patients Having Surgery: Your Pathway to Excellent Care OUR GOAL IS TO PROVIDE YOU WITH EXCELLENT CARE Use this guide to learn about what you can do before, during and after surgery to help your recovery. You are the most important person on your health care team. By becoming informed and involved, you can contribute to the success of your surgery. If your surgeon's directions are different than those in this guide, talk with your nurse or surgeon to confirm the information. It is important that you understand how to take care of yourself at home after surgery. Be sure to bring this guide with you on the day of surgery and take it home with you after surgery. Write down questions for your nurse or surgeon on the last page of this booklet. Important pages to be reviewed BEFORE surgery: Page 1: QR codes for Surgery Center maps Page 3: Types of Anesthesia Page 5: Tips for the day & night before surgery Page 6: When to stop eating BEFORE surgery and examples of clear liquids Page 7-10: Preventing Infection: Chlorhexidine Gluconate (CHG) Bathing Instructions You may access A Guide for Patients Having Surgery: Your Pathway to Excellent Care by the followinglink: [email or web address] How To Prepare Your Skin For Surgery Below is the Pre-Surgical Bathing Protocol you should follow for your surgery. If your surgeon provides you different bathing instructions, please follow your surgeon's orders. Normal Bathing: Bathe with regular soap the night before and/or day of surgery. Normal Bathing Protocol Bathe with your normal soap the night before and/or the morning of surgery. Wear clean clothes or pajamas to sleep in. After showering DO NOT put on deodorant, hair products, conditioners, lotions, creams, powders, Vaseline or any non-essential products. Remove nail coverings, artificial nails and nail urdu. Place clean linens on your bed the night before surgery. Shaving: You may shave your face, legs and underarms during your evening shower. Avoid shaving on the day of surgery. Travel/Exposure Screening: Travel Screening Have you traveled outside the [place] in the last 6 months?: No Exposure Screening Have you been exposed to anyone who is sick in the last 30 days?: No Have you been exposed to or tested positive for COVID-19 within the last 10 days?: No Infectious Disease Screening Are you having any of the following:: None As of 06/15/2022 any COVID TESTING required for surgery will be set up by your surgeon's office. Please reach out to your surgeon's office if you develop any COVID symptoms, test positive for COVID or are exposed to a COVID positive person. If you have questions, please call the CPAP Staff at [phone], Tuesday-Tuesday 8am-4:30pm. All patients should read the below section: COVID 19 Updates & Visitor Policy: Please access [email or web address] for the most updated information. Information on [facility] or [facility] ([facility]): Please view [email or web address] (Patient and Visitor Information) for parking/directions and more. For MyChart information, to activate account or password recovery, please go to [email or web address] or call [phone] (toll-free: [phone]), Tue- Tuesday 8am-5pm. Information for Suicide Prevention: National Suicide Prevention Lifeline (9-949- 278-GTZP (1743)). Surgery Times: For patients having surgery @ [facility] or [facility] ([facility]), if your surgeon's office has not notified you of your surgery time by NOON THE BUSINESS DAY BEFORE your surgery, please call [phone] and ask for your surgeon's office Dr Webster. * Perioperative Nursing Note - Aleja Lentz RN - 06/02/2023 9:29 AM CDT Center for Preoperative Assessment and Planning Perioperative Nursing Note Telephone Preoperative Evaluation ([facility]) - TELEPHONE ONLY, NO PHYSICAL EXAM Date: 06/02/23 This assessment was completed with the patient. Vitals: 06/02/23 0925 Weight: 81.6 kg (180 lb) Height: 167.6 cm (5' 6 ) CHEST CIRCUMFERENCE: NA Social History Tobacco Use Smoking Status Never Smokeless Tobacco Never Substance and Sexual Activity Drug Use Never Alcohol Use Q1: How often do you have a drink containing alcohol?: Monthly or less Q2: How many drinks containing alcohol do you have on a typical day when you are drinking?: 1 or 2 Q3: How often do you have six or more drinks on one occasion?: Never Outpatient Medications Marked as Taking for the 06/21/23 encounter (Hospital Encounter) Medication Sig Dispense Refill acetaminophen (TYLENOL) 500 mg tablet Take 2 tablets (1,000 mg total) by mouth every 6 (six) hours as needed for pain or headaches albuterol (PROAIR DIGIHALER) 90 mcg/actuation inhaler Inhale 2 puffs every 6 (six) hours as needed for wheezing (Patient taking differently: Inhale 2 puffs every 6 (six) hours as needed for wheezing)1 each 2 amitriptyline (ELAVIL) 10 mg tablet Take 1 tablet (10 mg total) by mouth nightly at bedtime carvediloL (COREG) 3.125 mg tablet Take 1 tablet (3.125 mg total) by mouth 2 (two) times a day withmeals cetirizine (ZyrTEC) 10 mg tablet TAKE 1 TABLET BY MOUTH DAILY (Patient taking differently: Take 1 tablet (10 mg total) by mouth every morning) 30 tablet 50 docusate sodium (COLACE) 100 mg capsule TAKE 1 CAPSULE BY MOUTH TWICE DAILY (Patient taking differently: Take 1 capsule (100 mg total) by mouth 2 (two) times a day) 60 capsule 2 Entresto 24-26 mg tablet TAKE 1 TABLET BY MOUTH EVERY 12 HOURS (Patient taking differently: Take 1 tablet by mouth 2 (two) times a day) 60 tablet 1 fluticasone propionate (FLONASE) 50 mcg/actuation nasal spray Administer 2 sprays into each nostrildaily (Patient taking differently: Administer 2 sprays into each nostril every morning) 1 each 3 LORazepam (ATIVAN) 0.5 mg tablet Take 2 tablets (1 mg total) by mouth every 12 (twelve) hours as needed (Abdominal spasms) (Patient taking differently: Take 2 tablets (1 mg total) by mouth every 12 (twelve) hours as needed for anxiety (Abdominal spasms)) 14 tablet 0 montelukast (SINGULAIR) 10 mg tablet Take 1 tablet (10 mg total) by mouth nightly (Patient taking differently: Take 1 tablet (10 mg total) by mouth nightly) 90 tablet 1 mupirocin (BACTROBAN) 2 % ointment Apply 1 Application topically as needed omega-3 fatty acids (FISH OIL CONCENTRATE ORAL) Take 2,000 mg by mouth every morning pantoprazole DR (PROTONIX) 40 mg EC tablet Take 1 tablet (40 mg total) by mouth daily (Patient taking differently: Take 1 tablet (40 mg total) by mouth every morning) 90 tablet 1 rosuvastatin (CRESTOR) 5 mg tablet TAKE 1 TABLET(5 MG) BY MOUTH DAILY (Patient taking differently: Take 1 tablet (5 mg total) by mouth every morning) 30 tablet 1 solifenacin (VESIcare) 10 mg tablet Take 1 tablet (10 mg total) by mouth every morning tiZANidine (ZANAFLEX) 4 mg tablet TAKE 1 TABLET(4 MG) BY MOUTH EVERY 8 HOURS NEEDED FOR MUSCLE SPASMS (Patient taking differently: Take 1 tablet (4 mg total) by mouth 3 (three) times a day) 90 tablet 0 Implants No active implants to display in this view. SKIN Piercings Remaining: Yes Wound (LDAs) Type of Wound (LDA): (denies) SCREENINGS Jeffrey index score: 100 PATIENT CARE PLANNING Advance Directives (For Healthcare) Have you reviewed your Advance Directive and is it valid for this stay?: Not applicable Advance Directive: Patient does not have advance directive Communication/Group Home Supervisor Needs Communication Needs: Glasses Assistive Devices/DME: Eyeglasses, Dentures lower, Dentures upper Discharge Planning Type of Residence: Private residence Living Arrangements: Spouse/significant other Support Systems: Spouse/significant other Assistance Needed: her partner Cesia will be caring for her after procedure Patient expects to be discharged to:: Private residence REGIONAL ACCOUNT EXECUTIVE NO documented in this encounter Plan of Treatment Not on file documented as of this encounter Procedures Procedure Name Priority Date/Time Associated Diagnosis Comments EXTRACTION CATARACT - PHACOEMULSIFICATION AND LENS IMPLANT 06/21/2023 9:44 AM CDT Age-related nuclear cataract of right eye documented in this encounter Visit Diagnoses Diagnosis Age-related nuclear cataract of right eye Age-related nuclear cataract of right eye documented in this encounter Admitting Diagnoses Diagnosis Age-related nuclear cataract of right eye documented in this encounter Administered Medications Inactive Administered Medications - up to 3 most recent administrations Medication Order MAR Action Action Date Dose Rate Site balanced salt soln no.2 irrig. (BSS) intraocular solution As needed, Starting on Tue06/21/23 at 0953, Intra-Op Given 06/21/2023 9:53 AM CDT 15 mL BSS-EPINEPHrine 0.3 mg preservative free intraocular solution (total volume 500 mL) As needed, Starting on Tue06/21/23 at 0953, Intra-Op Given 06/21/2023 9:53 AM CDT 500 mL chondroitin sulf-sod hyaluron (DUOVISC) 3 %-4 %(0.5 mL) 1 % (0.55 mL) intraocular kit As needed, Starting on Tue06/21/23 at 0954, Intra-Op Given 06/21/2023 9:54 AM CDT 1 kit DILATING COCKTAIL OPHTHALMIC GEL ophthalmic solution - ADS Override Pull Starting on Tue06/21/23 at 0758, For 1 dose, Created by cabinet override Ingredients per 0.3 mL Lidocaine 2% jelly 0.214 mL Phenylephrine 10% ophth drops 0.021 mL Cyclopentolate 1% ophth drops 0.021 mL Tropicamide 1% ophth drops 0.021 mL Ketorolac 0.5% ophth drops 0.021 mL dilating cocktail ophthalmic solution 0.3 mL 0.3 mL, right eye, Every 15 min, First dose on Tue06/21/23 at 0830, For 2 doses, Pre-Op, After each dose, have patient close eye and secure with paper tape. Ingredients per 0.3 mL Lidocaine 2% jelly 0.214 mL Phenylephrine 10% ophth drops 0.021 mL Cyclopentolate 1% ophth drops 0.021 mL Tropicamide 1% ophth drops 0.021 mL Ketorolac 0.5% ophth drops 0.021 mL, Indications: Mydriasis During Ocular SurgeryIndications:Mydriasis During Ocular Surgery Given 06/21/2023 8:20 AM CDT 0.3 mL Given 06/21/2023 8:02 AM CDT 0.3 mL Lactated Ringer's (LR) infusion 30 mL/hr, intravenous, Continuous, Starting on Tue06/21/23 at 0830, Pre-Op Rate/Dose Verify 06/21/2023 9:39 AM CDT 30 mL/hr New Bag 06/21/2023 8:15 AM CDT 30 mL/hr 30 mL/hr lidocaine PF (XYLOCAINE) 10 mg/mL (1 %) preservative free injection As needed, Starting on Tue06/21/23 at 0953, Intra-Op Given 06/21/2023 9:53 AM CDT 1 mL povidone-iodine (BETADINE PREP) 5 % ophthalmic solution As needed, Starting on Tue06/21/23 at 0954, Intra-Op Given 06/21/2023 9:54 AM CDT 30 mL tetracaine (PF) (ALTACAINE) 0.5 % ophthalmic solution As needed, Starting on Tue06/21/23 at 0954, Intra-Op, Indications: Administration of Corneal AnesthesiaIndications:Administration of Corneal Anesthesia Given 06/21/2023 9:54 AM CDT 3 drops tobramycin-dexAMETHasone (TOBRADEX) 0.3-0.1 % ophthalmic suspension As needed, Starting on Tue06/21/23 at 0957, Intra-Op Given 06/21/2023 9:57 AM CDT 3 drops documented in this encounter Discontinued Medications Medication Sig Discontinue Reason Start Date End Da te HYDROcodone-acetaminophe n (NORCO) 5-325 mg per tabletIndications:Pain Take 1 tablet by mouth every 6 (six) hours as needed for pain Therapy completed 05/11/2023 06/02/2023 documented as of this encounter Historical Medications * This list may reflect changes made after this encounter. omega-3 fatty acids (FISH OIL CONCENTRATE ORAL)Indications:hi gh triglycerides Take 2,000 mg by mouth every morning acetaminophen (TYLENOL) 500 mg tablet Take 2 tablets (1,000 mg total) by mouth every 6 (six) hours as needed for pain or headaches 4 added in this encounter Active and Recently Administered Medications Times are shown in CDT. Scheduled Medication Order 06/19/2023 06/20/2023 06/21/2023 dilating cocktail ophthalmic solution 0.3 mL (COMPLETED) 0.3 mL, right eye, Every 15 min, First dose on Tue06/21/23 at 0830, For 2 doses, Pre-Op, After each dose, have patient close eye and secure with paper tape. Ingredients per 0.3 mL Lidocaine 2% jelly 0.214 mL Phenylephrine 10% ophth drops 0.021 mL Cyclopentolate 1% ophth drops 0.021 mL Tropicamide 1% ophth drops 0.021 mL Ketorolac 0.5% ophth drops 0.021 mL, Indications: Mydriasis During Ocular Surgery 0802 (Given - Provid er: Joceline Jiménez RN)0820 (Given - Provider: Joceline Jiménez RN) sodium chloride 0.9% flush 0.5-20 mL 0.5-20 mL, intra-catheter, Every 8 hours scheduled, First dose on Tue06/21/23 at 0830, Pre-Op, Flush volume based on line type and size. 0830 (Due) Continuous Medication Order 06/19/2023 06/20/2023 06/21/2023 Lactated Ringer's (LR) infusion 30 mL/hr, intravenous, Continuous, Starting on Tue06/21/23 at 0830, Pre-Op 0815 (New Bag - Prov ider: Joceline Jiménez RN)0939 (Rate/Dose Verify - Provider: Yajaira Galarza CRNA)1030 (Stopped - Provider: Georgina Armstrong RN) PRN Medication Order 06/19/2023 06/20/2023 06/21/2023 balanced salt soln no.2 irrig. (BSS) intraocular solution (CANCELED) As needed, Starting on Tue06/21/23 at 0953, Intra-Op 0953 (Given - Provid er: Mary Ann Webster MD - Comment: irrigation) BSS-EPINEPHrine 0.3 mg preservative free intraocular solution (total volume 500 mL) (CANCELED) As needed, Starting on Tue06/21/23 at 0953, Intra-Op 0953 (Given - Provid er: Mary Ann Webster MD) chondroitin sulf-sod hyaluron (DUOVISC) 3 %-4 %(0.5 mL) 1 % (0.55 mL) intraocular kit (CANCELED) As needed, Starting on Tue06/21/23 at 0954, Intra-Op 0954 (Given - Provid er: Mary Ann Webster MD) lidocaine PF (XYLOCAINE) 10 mg/mL (1 %) preservative free injection 2-10 mg 2-10 mg (0.2-1 mL), other, Once as needed, pain with IV placement, Starting on Tue06/21/23 at 0757, For 1 dose, Pre-Op, Administer volume needed to infiltrate IV site. lidocaine PF (XYLOCAINE) 10 mg/mL (1 %) preservative free injection (CANCELED) As needed, Starting on Tue06/21/23 at 0953, Intra-Op 0953 (Given - Provid er: Mary Ann Webster MD) naloxone (NARCAN) 0.4 mg/mL injection 0.04-0.4 mg 0.04-0.4 mg, intravenous, Once as needed, other, excessive sedation/respiratory depression, Starting on Tue06/21/23 at 1003, For 1 dose, Phase I, Dilute 0.4 mg with 9 mL NS (final concentration 0.04 mg/mL). For respiratory depression (respiratory rate less than 6), administer 0.4 mg IVP over 30 seconds. For excessive sedation administer 0.04 mg (1 mL) every 1 minute until desired level of alertness. For IV, administer over 30 seconds., Indications: Opioid Toxicity ondansetron (ZOFRAN) injection 4 mg 4 mg, intravenous, Administer over 2 Minutes, Once as needed, nausea, vomiting, Starting on Tue06/21/23 at 1003, For 1 dose, Phase I, Proceed to prochlorperazine if ondansetron has been given within the last 6 hours. povidone-iodine (BETADINE PREP) 5 % ophthalmic solution (CANCELED) As needed, Starting on Tue06/21/23 at 0954, Intra-Op 0954 (Given - Provid er: Mary Ann Webster MD - Comment: topical) prochlorperazine (COMPAZINE) injection 5 mg 5 mg, intravenous, Administer over 2 Minutes, Once as needed, nausea, vomiting, Starting on Tue06/21/23 at 1003, For 1 dose, Phase I, If nausea/vomiting not relieved by ondansetron within 30 minutes or if ondansetron has been given within the last 6 hours. sodium chloride 0.9% flush 0.5-20 mL 0.5-20 mL, intra-catheter, As needed, line care, Starting on Tue06/21/23 at 0757, Pre-Op, Flush volume based on line type and size. Flush before and after each use. tetracaine (PF) (ALTACAINE) 0.5 % ophthalmic solution (CANCELED) As needed, Starting on Tue06/21/23 at 0954, Intra-Op, Indications: Administration of Corneal Anesthesia 09 (Given - Provid er: Mary Ann Webster MD) tobramycin-dexAMETHasone (TOBRADEX) 0.3-0.1 % ophthalmic suspension (CANCELED) As needed, Starting on Tue06/21/23 at 0957, Intra-Op 0957 (Given - Provid er: Mary Ann Webster MD) documented in this encounter Orders Medications Ordered That Sarabjit ht Not Have Been Administered Count Last Ordered Date First Ordered Date lidocaine PF (XYLOCAINE) 10 mg/mL (1 %) preservative free injection 2-10 mg 1 06/21/2023 naloxone (NARCAN) 0.4 mg/mL injection 0.04-0.4 mg 1 06/21/2023 ondansetron (ZOFRAN) injection 4 mg 1 06/21 prochlorperazine (COMPAZINE) injection 5 mg 1 06/21/2023 sodium chloride 0.9% flush 0.5-20 mL 2 05/24 Diet Count Last Ordered Date First Orde red Date ADULT DISCHARGE DIET 1 06/21/2023 Nursing Count Last Ordered Date First Orde red Date DISCHARGE ACTIVITY 2 06/21/2023 DISCHARGE CALL PROVIDER 2 06/21/2023 documented in this encounter Care Teams Flight Attendant Relationship Specialty Start Date End Date Ramonita Crawford NP [address] [address] PCP - General Family Medicine 02/18/23 Angeles Hernandez MD [address] [address] Referring Physician Gynecology 07/21/21 documented as of this encounter
--- OUTSIDE RECORDS SUMMARY | 2024-09-03 19:35 | XMS_ITS | Encounter Summary ---
Author Organization [facility] Address [address] [place] [address] Care Team Providers Care Income Tax Adjuster Name Role Phone Unavailable Primary Care Provider Unavailabl e Reason for Visit * Reason Comments Shortness of Breath pt presents to ED c/ o difficulty breathing. pt continuously coughing upon arrival. hx of asthma. pt has not used her inhalers. 100% RA upon arrival. +expiratory wheezing. Encounter Details Date Type Department Care Team (Late st Contact Info) Description 10/05/2020 11:38 AM CYTOTECHNOLOGIST - 10/05/2020 3:51 PM CYTOTECHNOLOGIST Emergency ER at [address] [address] SOB (shortness of breath); Chest pressure; Moderate asthma with exacerbation, unspecified whether persistent (HCC) Discharge Disposition: Home or Self Care Social History Tobacco Use Types Packs/Day Years [...] Sign Reading Time Taken Comments Blood Pressure 143/74 10/05/2020 3:30 PM CYTOTECHNOLOGIST Pulse 93 10/05/2020 3:30 PM CYTOTECHNOLOGIST Temperature 36.1 ??C (97 ??F) 10/05/2020 12:10 PM CYTOTECHNOLOGIST Respiratory Rate 19 10/05/2020 3:30 PM CYTOTECHNOLOGIST Oxygen Saturation 99% 10/05/2020 3:30 PM CYTOTECHNOLOGIST Inhaled Oxygen Concentration - - Weight 86.2 kg (190 lb) 10/05/2020 11:35 AM CYTOTECHNOLOGIST Height 167.6 cm (5' 6 ) 10/05/2020 11:35 AM CYTOTECHNOLOGIST Body Mass Index 30.67 10/05/2020 11:35 AM CYTOTECHNOLOGIST documented in this encounter Discharge Instructions * Attachments The following attachments cannot be sent through Care Everywhere. * Asthma (General Information) ([place]) documented in this encounter Medications at Time of Discharge Medication Sig Dispensed Refills Start Date End Date albuterol HFA (PROVENTIL;VENTOLIN;PRO AIR) 108 (90 Base) MCG/ACT inhaler Inhale 2 (two) puffs by mouth every 4 hours as needed 1 g 10/05/2020 predniSONE (DELTASONE) 20 MG tablet Take 3 (three) tablets by mouth once daily 15 tablet 10/05/2020 08/02/2022 documented as of this encounter ED Notes * Adryan Bacon RN - 10/05/2020 3:50 PM CST Discharge teaching complete. All questions answered. Pt verbalized understanding and has safe ride and place to go to. TECHNOLOGIST * Adryan Bacon RN - 10/05/2020 3:10 PM CST Pt ambulated to bathroom with steady gait. Pt reports decreased SOB and feels okay when ambulating. TECHNOLOGIST * Santi Kemp PA-C - 10/05/2020 1:19 PM CST 3:46 PM Signout given to me by CANDE Felix. HPI In short , Chrissy Kilgore is a 50 year old female, presenting to ED with coughing, shortness of breath and dyspnea that started this morning. Patient has a history of asthma, states that she has an albuterol inhaler as needed for attacks but is visiting from [place] did not bring with her as she has not had an attack in quite some time. She states that the symptoms started after she when out to the cold, she reports associated chest pressure and describes it as though someone is sitting on her chest. Denies any associated dizziness lightheadedness nausea vomiting, denies any CAD or cardiac history. ? - please see primary provider 's note for full HPI, ROS, ED workup and plan. Vitals: Patient Vitals for the past 24 hrs: Temp Pulse Resp BP SpO2 10/05/20 1530 -- 93 19 143/74 99 % 10/05/20 1500 -- 95 18 139/81 98 % 10/05/20 1430 -- 91 17 145/82 96 % 10/05/20 1400 -- 88 18 -- 100 % 10/05/20 1330 -- 82 14 127/81 100 % 10/05/20 1300 -- 87 20 126/77 100 % 10/05/20 1230 -- 71 20 149/69 100 % 10/05/20 1211 -- -- -- (!) 152/103 -- 10/05/20 1210 97 ??F (36.1 ??C) -- -- -- -- 10/05/20 1153 -- 76 24 -- 98 % 10/05/20 1134 -- 95 24 -- 100 % IMAGING XR CHEST 1VW PORTABLE Final Result Portable Chest AP History: Difficulty breathing asthma FINDINGS: No prior. Heart size is normal and the lungs are clear and no pneumothorax or pleural effusion is seen. IMPRESSION Negative *Reading Radiologist: Javier Alston on 10/05/2020 at 1:53 PM LABS Labs Reviewed CBC W AUTO DIFFERENTIAL - Abnormal; Notable for the following components: Result Value RDW-CV 11.7 (*) MPV 8.9 (*) Neutrophils % 84.6 (*) Lymphocytes % 11.8 (*) Monocytes % 1.4 (*) Immature Granulocytes 1.1 (*) Neutrophil Absolute 7.70 (*) Monocytes Absolute 0.13 (*) Immature Granulocytes Absolute 0.10 (*) All other components within normal limits COMPREHENSIVE METABOLIC PANEL - Abnormal; Notable for the following components: Glucose 135 (*) Potassium 3.3 (*) Alkaline Phosphatase 181 (*) ALT 90 (*) AST 36 (*) All other components within normal limits TROPONIN I - Normal D-DIMER - Normal Narrative: In the absence of clinical symptoms, a value less than or equal to 0.5 mcg/mL FEU significantly decreases the probability of PE/DVT (negative predictive value >95%). 1 mcg/ml FEU = 1 Fibrinogen Equivalent Unit (approximates 0.5 mcg/mL of D-dimer). TROPONIN I TROPONIN I 1400: My physical exam revealed no acute distress. No increased effort with breathing, lung exam with mild expiratory wheezing in the right lower field but otherwise unremarkable. Decreased breath sounds rhonchi or rales. Chest x-ray ordered by prior provider, will add cardiac workup secondary to chest pressure. 1530: Repeat exam, patient states she is feeling much better. Lung exam unremarkable patient movingair well. She reports still feeling a little tightness in her chest with breathing but states she is much better. She is comfortable with discharge home, will plan to treat with steroids and refill al buterol until she can return home. ? Plan Discharge home, steroids refill albuterol follow-up with primary care doctor. This is a 50-year-old female with known asthma started having wheezing and shortness of breath whenout occult today, did not have her inhaler as she was visiting from [place]. Sign-out from up another provider her reported wheezing on initial exam, she had a DuoNeb which resolved wheezing as she was well- appearing with essentially clear lungs on my exam evaluation. She however had complaints ofchest pressure which is new to her asthma exacerbations. Patient has no cardiac history her vital signs are stable she is not hypoxic. Labs today reveal nonischemic EKG, troponin and D-dimer negative, chest x-ray clear. Her symptoms improved with 2 DuoNebs, again etiology likely related to asthma ex acerbation and will treat as such. She is well-appearing symptom free and reasonable for outpatientmanagement. Prednisone and albuterol sent to pharmacy Disposition: home, stable Clinical Impression: 1. SOB 2. Chest tightness 3. Asthma exacerbation TECHNOLOGIST * Corine Guillaume PA-C - 10/05/2020 11:45 AM CST Chrissy Kilgore [id number] [facility] History Chief Complaint Patient presents with ??? Shortness of Breath pt presents to ED c/o difficulty breathing. pt continuously coughing upon arrival. hx of asthma. pthas not used her inhalers. 100% RA upon arrival. +expiratory wheezing. Patient presents to the ED with coughing and shortness of breath that started this morning. Patientstates she is visiting from [place] and forgot her albuterol. She has a history of asthma and thishas happened before when she did not use her inhaler. It was exacerbated when she went outside in the cold. She denies any chest pain. No fever or chills. Does not smoke No past medical history on file. No past surgical history on file. No family history on file. Social History Socioeconomic History ??? Marital status: Spouse name: Not on file ??? Number of children: Not on file ??? Years of education: Not on file ??? Highest education level: Not on file Occupational History ??? Not on file Social Needs ??? Financial resource strain: Not on file ??? Food insecurity Worry: Not on file Inability: Not on file ??? Transportation needs Medical: Not on file Non-medical: Not on file Tobacco Use ??? Smoking status: Not on file Substance and Sexual Activity ??? Alcohol use: Not on file ??? Drug use: Not on file ??? Sexual activity: Not on file Lifestyle ??? Physical activity Days per week: Not on file Minutes per session: Not on file ??? Stress: Not on file Relationships ??? Social connections Talks on phone: Not on file Gets together: Not on file Attends orthodox service: Not on file Active member of club or organization: Not on file Attends meetings of clubs or organizations: Not on file Relationship status: Not on file ??? Intimate partner violence Fear of current or ex partner: Not on file Emotionally abused: Not on file Physically abused: Not on file Forced sexual activity: Not on file Other Topics Concern ??? Not on file Social History Narrative ??? Not on file Review of Systems Review of Systems Constitutional: Negative. Negative for chills and fever. HENT: Negative for congestion, ear pain and sore throat. Eyes: Negative. Respiratory: Positive for cough, shortness of breath and wheezing. Negative for hemoptysis and sputum production. Cardiovascular: Negative. Negative for chest pain, palpitations, leg swelling and PND. Gastrointestinal: Negative. Negative for abdominal pain, nausea and vomiting. Genitourinary: Negative. Musculoskeletal: Negative. Negative for back pain and neck pain. Skin: Negative. Neurological: Negative. Psychiatric/Behavioral: Negative. All other systems reviewed and are negative. Physical Exam BP (!) 152/103 Pulse 76 Temp 97 ??F (36.1 ??C) (Temporal) Resp 24 Ht 1.676 m (5' 6 ) Wt 86.2 kg (190 lb) SpO2 98% BMI 30.67 kg/m?? Physical Exam Vitals signs and nursing note reviewed. Constitutional: General: She is not in acute distress. Appearance: She is well-developed. She is not diaphoretic. HENT: Head: Normocephalic and atraumatic. Right Ear: External ear normal. Left Ear: External ear normal. Nose: Nose normal. Mouth/Throat: Mouth: Mucous membranes are moist. Pharynx: No oropharyngeal exudate. Eyes: General: Right eye: No discharge. Left eye: No discharge. Conjunctiva/sclera: Conjunctivae normal. Pupils: Pupils are equal, round, and reactive to light. Neck: Musculoskeletal: Normal range of motion and neck supple. Cardiovascular: Rate and Rhythm: Normal rate and regular rhythm. Heart sounds: Normal heart sounds. Pulmonary: Effort: Pulmonary effort is normal. No respiratory distress. Breath sounds: Examination of the right-upper field reveals wheezing. Examination of the left-upperfield reveals wheezing. Examination of the right- middle field reveals wheezing. Examination of the left-middle field reveals wheezing. Examination of the right-lower field reveals wheezing. Examination of the left-lower field reveals wheezing. Wheezing present. No decreased breath sounds, rhonchi or rales. Chest: Chest wall: No tenderness or crepitus. Abdominal: General: There is no distension. Palpations: Abdomen is soft. Tenderness: There is no abdominal tenderness. There is no guarding. Musculoskeletal: Normal range of motion. General: No tenderness or deformity. Right lower leg: No edema. Left lower leg: No edema. Lymphadenopathy: Cervical: No cervical adenopathy. Skin: General: Skin is warm and dry. Capillary Refill: Capillary refill takes less than 2 seconds. Coloration: Skin is not pale. Findings: No erythema. Neurological: General: No focal deficit present. Mental Status: She is alert and oriented to person, place, and time. Cranial Nerves: No cranial nerve deficit. Sensory: No sensory deficit. Motor: No weakness or abnormal muscle tone. Coordination: Coordination normal. Psychiatric: Mood and Affect: Mood normal. Mood is not anxious. Behavior: Behavior normal. Thought Content: Thought content normal. Judgment: Judgment normal. Medications No current outpatient medications on file. Procedures Procedures Lab/SPO2 Interpretation No results found for this visit on 10/05/20. XR CHEST PA AND LATERAL (Results Pending) Progress Notes ED Course Clinical Impressions as of Oct 05 1257 SOB (shortness of breath) Medical Decision Making I have reviewed the: Nursing Notes, Vitals. I have interpreted the following results: X-Ray, Oxygen Saturation. Patient does not have inhaler with her and had asthma exacerbation. No fever or chills. She states this has happened before. Never had to be admitted for it. She did have a lot of wheezing 1230. Went to recheck and she currently was still getting her nebulizer but felt a lot better Pt blood pressure was slightly elevated in the ED. This is most likely from pain/stress. Patient will monitor and discuss with his primary. No chest pain or shortness of breath 1300 signed pt out to [place] Just[facility] nebulizer and repeat exam. If better will send home with steroids and albuterol Pt blood pressure was slightly elevated in the ED. This is most likely from pain/stress. Patient will monitor and discuss with his primary. No chest pain or shortness of breath DX; asthma exacerbation Orders Placed This Encounter ??? XR CHEST PA AND LATERAL ??? START ED RT BRONCHODILATOR PROTOCOL ??? AND Linked Order Group ??? albuterol (PROVENTIL;VENTOLIN) (5 MG/ML) 0.5% nebulizer solution 15 mg ??? ipratropium (ATROVENT) nebulizer solution 0.5 mg ??? methylPREDNISolone sod succ (SOLU-Medrol) injection 125 mg ??? AND Linked Order Group ??? 0.9% NaCl injection 3 mL ??? 0.9% NaCl injection 1-10 mL TECHNOLOGIST documented in this encounter Plan of Treatment Scheduled Orders Name Type Priority Associated Diagnoses Order Schedule START ED RT BRONCHODILATOR PROTOCOL Respiratory Care STAT ONCE for 1 Occurrences starting 10/05/2020 until 10/05/2020 documented as of this encounter Procedures Procedure Name Priority Date/Time Associated Diagnosis Comments CBC W AUTO DIFFERENTIAL STAT 10/05/2020 2:13 PM CYTOTECHNOLOGIST TROPONIN I STAT 10/05/2020 2:12 PM CYTOTECHNOLOGIST D-DIMER STAT 10/05/2020 2:12 PM CYTOTECHNOLOGIST COMPREHENSIVE METABOLIC PANEL STAT 10/05/2020 2:12 PM CYTOTECHNOLOGIST EKG 12-LEAD STAT 10/05/2020 2:05 PM CYTOTECHNOLOGIST Chest pressure XR CHEST 1VW PORTABLE STAT 10/05/2020 1:24 PM CYTOTECHNOLOGIST SOB (shortness of breath) documented in this encounter Results * (ABNORMAL) CBC W AUTO DIFFERENTIAL (10/05/2020 2:13 PM CYTOTECHNOLOGIST) WBC 9.1 4.4 - 10.7 x10E9/L 10/05/2020 2:20 PM CYTOTECHNOLOGIST [facility] WBC Corrected 10/05/2020 2:20 PM CYTOTECHNOLOGIST [facility] RBC 4.47 3.80 - 5.20 x10E12/L 10/05/2020 2:20 PM CYTOTECHNOLOGIST [facility] Hemoglobin 13.6 12.0 - 15.6 gm/dL 10/05/2020 2:20 PM CYTOTECHNOLOGIST [facility] Hematocrit 41.2 35.9 - 45.5 % 10/05/2020 2:20 PM CYTOTECHNOLOGIST [facility] MCV 92.2 80.7 - 98.3 fl 10/05/2020 2:20 PM CYTOTECHNOLOGIST [facility] MCH 30.4 26.7 - 34.0 pg 10/05/2020 2:20 PM CYTOTECHNOLOGIST [facility] MCHC 33.0 30.8 - 35.9 gm/dL 10/05/2020 2:20 PM CYTOTECHNOLOGIST [facility] Platelet Count 278 153 - 416 x10E9/L 10/05/2020 2:20 PM CYTOTECHNOLOGIST [facility] RDW-CV 11.7(L) 12.1 - 14.9 % 10/05/2020 2:20 PM [facility] MPV 8.9(L) 9.4 - 12.9 fl 10/05/2020 2:20 PM [facility] Neutrophils % 84.6(H) 44.0 - 73.0 % 10/05/2020 2:20 PM [facility] Lymphocytes % 11.8(L) 20.0 - 43.0 % 10/05/2020 2:20 PM [facility] Monocytes % 1.4(L) 5.0 - 13.0 % 10/05/2020 2:20 PM [facility] Eosinophils % 0.8 0.0 - 6.0 % 10/05/2020 2:20 PM [facility] Basophils % 0.3 0.0 - 2.0 % 10/05/2020 2:20 PM [facility] Immature Granulocytes 1.1(H) 0 - 1 % 10/05/2020 2:20 PM [facility] Neutrophil Absolute 7.70(H) 2.01 - 7.14 x10E9/L 10/05/2020 2:20 PM [facility] Lymphocytes Absolute 1.07 1.07 - 3.94 x10E9/L 10/05/2020 2:20 PM [facility] Monocytes Absolute 0.13(L) 0.26 - 1.07 x10E9/L 10/05/2020 2:20 PM [facility] Eosinophils Absolute 0.07 0 - 0.47 x10E9/L 10/05/2020 2:20 PM [facility] Basophils Absolute 0.03 0 - 0.08 x10E9/L 10/05/2020 2:20 PM [facility] Immature Granulocytes Absolute 0.10(H) 0.00 - 0.06 x10E9/L 10/05/2020 2:20 PM [facility] nRBC Auto 0 /100 WBC 10/05/2020 2:20 PM [facility] Blood BLOOD SPECIMEN / Unknown Venipuncture / Unknown 10/05/2020 2:13 PM CYTOTECHNOLOGIST 10/05/2020 2:18 PM CYTOTECHNOLOGIST Santi Kemp PA-C LAB - HEMATOLOGY ORD ERABLES Performing Organization Address City/[facility]/ZIP Co de Phone Number [facility] [address] [place] [address] * D-DIMER (10/05/2020 2:12 PM CYTOTECHNOLOGIST) Pathologist [facility] D-Dimer 0.36 0.27 - 0.50 ug/mL FEU 10/05/2020 2:30 PM CYTOTECHNOLOGIST [facility] Blood BLOOD SPECIMEN / Unknown Venipuncture / Unknown 10/05/2020 2:12 PM CYTOTECHNOLOGIST 10/05/2020 2:18 PM CYTOTECHNOLOGIST Narrative [facility] - 10/05/2020 2:30 PM CYTOTECHNOLOGIST In the absence of clinical symptoms, a value less than or equal to 0.5 mcg/mL FEU significantly decreases the probability of PE/DVT (negative predictive value >95%). 1 mcg/ml FEU = 1 Fibrinogen Equivalent Unit (approximates 0.5 mcg/mL of D- dimer). Santi Kemp PA-C LAB - COAGULATION OR DERABLES Performing Organization Address [facility]/ZIP Co de Phone Number [facility] [address] [place] [address] * TROPONIN I (10/05/2020 2:12 PM CYTOTECHNOLOGIST) Pathologist [facility] Troponin I <0.010 <0.038 ng/mL 10/05/2020 2:41 PM CYTOTECHNOLOGIST [facility] Blood BLOOD SPECIMEN / Unknown Venipuncture / Unknown 10/05/2020 2:12 PM CYTOTECHNOLOGIST 10/05/2020 2:17 PM CYTOTECHNOLOGIST Santi Kemp PA-C LAB - CHEMISTRY ORDE RABLES Performing Organization Address City/[facility]/ZIP Co de Phone Number [facility] [address] [place] [address] * (ABNORMAL) COMPREHENSIVE METABOLIC PANEL (10/05/2020 2:12 PM CYTOTECHNOLOGIST) Pathologist [facility] Glucose 135(H) 70 - 105 mg/dL 10/05/2020 2:36 PM [facility] Sodium 142 136 - 145 mmol/L 10/05/2020 2:36 PM [facility] Potassium 3.3(L) 3.5 - 5.1 mmol/L 10/05/2020 2:36 PM [facility] Chloride 106 98 - 107 mmol/L 10/05/2020 2:36 PM [facility] CO2 23 23 - 31 mmol/L 10/05/2020 2:36 PM [facility] Calcium 9.7 8.4 - 10.4 mg/dL 10/05/2020 2:36 PM [facility] Anion Gap 13 8 - 18 mmol/L 10/05/2020 2:36 PM [facility] Comment:Attention clinician: ??Reference Range change. BUN 10 9.8 - 20.1 mg/dL 10/05/2020 2:36 PM [facility] Creatinine 0.74 0.57 - 1.11 mg/dL 10/05/2020 2:36 PM [facility] Alkaline Phosphatase 181(H) 40 - 150 U/L 10/05/2020 2:36 PM [facility] Comment:Attention clinician: ??Reference Range change. ALT 90(H) 0 - 61 U/L 10/05/2020 2:36 PM [facility] AST 36(H) 5 - 34 U/L 10/05/2020 2:36 PM [facility] Protein Total 7.4 6.4 - 8.3 gm/dL 10/05/2020 2:36 PM [facility] Albumin 4.1 3.5 - 5.2 gm/dL 10/05/2020 2:36 PM [facility] Bilirubin Total 0.4 0.2 - 1.2 mg/dL 10/05/2020 2:36 PM [facility] Comment:Attention clinician: ??Reference Range change. eGFR by MDRD >60 >60 mL/min/1.7 3m2 10/05/2020 2:36 PM [facility] eGFR by MDRD >60 >60 mL/min/1.7 3m2 10/05/2020 2:36 PM [facility] Blood BLOOD SPECIMEN / Unknown Venipuncture / Unknown 10/05/2020 2:12 PM CYTOTECHNOLOGIST 10/05/2020 2:17 PM CYTOTECHNOLOGIST Santi Kemp PA-C LAB - CHEMISTRY AILYN APPLE Performing Organization Address City/[facility]/ZIP Co de Phone Number [facility] [address] [address] * EKG 12-LEAD (10/05/2020 2:05 PM CYTOTECHNOLOGIST) Ventricular Rate 77 BPM [facility] Atrial Rate 77 BPM [facility] P-R Interval 142 ms [facility] QRS Duration ms 92 ms [facility] Q-T Interval ms 390 ms [facility] QTC Calculation (Bezet) 441 ms [facility] Calculated P [place] 44 degrees [facility] Calculated R [place] -2 degrees [facility] Calculated T [place] -5 degrees [facility] Interpretation EKG Normal sinus rhythm Cannot rule out Anterior infarct , age undetermined Abnormal ECG No previous ECGs available Confirmed by MD MYAH, ERICKA Menezes ([id number]) on 10/06/2020 8:08:41 AM [facility] 10/05/2020 2:05 PM CYTOTECHNOLOGIST 10/06/2020 8:08 AM CYTOTECHNOLOGIST Santi Kemp PA-C ECG ORDERABLES Performing Organization Address [facility] Co de Phone Number [facility] * XR CHEST 1VW PORTABLE (10/05/2020 1:24 PM CYTOTECHNOLOGIST) Anatomical Region Laterality Modality Chest Radiographic Dulce ging 10/05/2020 1:51 PM CYTOTECHNOLOGIST Impressions 10/05/2020 1:53 PM CYTOTECHNOLOGIST Negative *Reading Radiologist: Javier Alston on 10/05/2020 at 1:53 PM Narrative 10/05/2020 1:53 PM CYTOTECHNOLOGIST Portable Chest AP History: Difficulty breathing asthma [...] Corine Guillaume PA-C DIAGNOSTIC IM AGING ORDERABLES documented in this encounter Visit Diagnoses Diagnosis SOB (shortness of breath) Shortness of breath Chest pressure Other chest pain Moderate asthma with exacerbation, unspecified whether persistent (HCC) documented in this encounter Administered Medications Inactive Administered Medications - up to 3 most recent administrations Medication Order MAR Action Action Date Dose Rate Site 0.9% NaCl injection 1-10 mL 1-10 mL, Intracatheter, PRN, Other, peripheral line flush, Starting on Tue10/05/20 at 1144, Until Tue10/05/20 at 1651, Flush peripheral IV catheter with 1-10 mL of normal saline before and after medications and prn to clear blood from the line or to verify patency. 0.9% NaCl injection 1-10 mL 1-10 mL, Intracatheter, PRN, Other, peripheral line flush, Starting on Tue10/05/20 at 1350, Until Tue10/05/20 at 1651, Flush peripheral IV catheter with 1-10 mL of normal saline before and after medications and prn to clear blood from the line or to verify patency. 0.9% NaCl injection 3 mL 3 mL, Intracatheter, EVERY 8 HOURS, First dose on Tue10/05/20 at 1400, Until Discontinued, Flush peripheral IV catheter with 3 mL of normal saline every 8 hours. 0.9% NaCl injection 3 mL 3 mL, Intracatheter, EVERY 8 HOURS, First dose on Tue10/05/20 at 1430, Until Discontinued, Flush peripheral IV catheter with 3 mL of normal saline every 8 hours. albuterol (PROVENTIL;VENTOLIN) (5 MG/ML) 0.5% nebulizer solution 15 mg 15 mg, Inhalation, NOW, 1 dose, On Tue10/05/20 at 1145, Administer over 1 hour $ Given 10/05/2020 11:52 AM CYTOTECHNOLOGIST 15 mg albuterol-ipratropium (DUO-NEB) nebulizer solution 3 mL 3 mL, Inhalation, NOW, 1 dose, On Tue10/05/20 at 1400 $ Given 10/05/2020 1:56 PM CYTOTECHNOLOGIST 3 mL aspirin chew tablet 324 mg 324 mg, Oral, NOW, 1 dose, On 10/05/20 at 1400 $ Given 10/05/2020 2:09 PM CYTOTECHNOLOGIST 324 mg ipratropium (ATROVENT) nebulizer solution 0.5 mg 0.5 mg, Inhalation, NOW, 1 dose, On 10/05/20 at 1145 $ Given 10/05/2020 11:52 AM CYTOTECHNOLOGIST 0.5 mg methylPREDNISolone sod succ (SOLU-Medrol) injection 125 mg 125 mg, Intravenous, NOW, 1 dose, On 10/05/20 at 1145 $ Given 10/05/2020 12:07 PM CYTOTECHNOLOGIST 125 mg documented in this encounter Active and Recently Administered Medications Times are shown in CYTOTECHNOLOGIST. Scheduled Medication Order 10/03/2020 10/04/2020 10/05/2020 0.9% NaCl injection 3 mL(Linked Group 1) 3 mL, Intracatheter, EVERY 8 HOURS, First dose on 10/05/20 at 1400, Until Discontinued, Flush peripheral IV catheter with 3 mL of normal saline every 8 hours. 1413 (Not Administer ed - Provider: Adryan Bacon RN - Reason: Patient Condition) 0.9% NaCl injection 3 mL(Linked Group 2) 3 mL, Intracatheter, EVERY 8 HOURS, First dose on 10/05/20 at 1430, Until Discontinued, Flush peripheral IV catheter with 3 mL of normal saline every 8 hours. 1436 (Not Administer ed - Provider: Adryan Bacon RN - Reason: Patient Condition) albuterol (PROVENTIL;VENTOLIN) (5 MG/ML) 0.5% nebulizer solution 15 mg (COMPLETED)(Linked Group 3) 15 mg, Inhalation, NOW, 1 dose, On 10/05/20 at 1145, Administer over 1 hour 1152 ($ Given - Prov ider: Trace Livingston RCP) albuterol-ipratropium (DUO-NEB) nebulizer solution 3 mL (COMPLETED) 3 mL, Inhalation, NOW, 1 dose, On 10/05/20 at 1400 1356 ($ Given - Prov ider: Keith Norton RCP) aspirin chew tablet 324 mg (COMPLETED) 324 mg, Oral, NOW, 1 dose, On 10/05/20 at 1400 1409 ($ Given - Prov ider: Adryan Bacon RN) ipratropium (ATROVENT) nebulizer solution 0.5 mg (COMPLETED)(Linked Group 3) 0.5 mg, Inhalation, NOW, 1 dose, On 10/05/20 at 1145 1152 ($ Given - Prov ider: Trace Livingston RCP) methylPREDNISolone sod succ (SOLU-Medrol) injection 125 mg (COMPLETED) 125 mg, Intravenous, NOW, 1 dose, On 10/05/20 at 1145 1207 ($ Given - Prov ider: Adryan Bacon RN) PRN Medication Order 10/03/2020 10/04/2020 10/05/2020 0.9% NaCl injection 1-10 mL(Linked Group 1) 1-10 mL, Intracatheter, PRN, Other, peripheral line flush, Starting on 10/05/20 at 1144, Until 10/05/20 at 1651, Flush peripheral IV catheter with 1-10 mL of normal saline before and after medications and prn to clear blood from the line or to verify patency. 0.9% NaCl injection 1-10 mL(Linked Group 2) 1-10 mL, Intracatheter, PRN, Other, peripheral line flush, Starting on 10/05/20 at 1350, Until 10/05/20 at 1651, Flush peripheral IV catheter with 1-10 mL of normal saline before and after medications and prn to clear blood from the line or to verify patency. Linked Groups Order Group 1: SALINE LOCK, INSERT AND MAINTAIN (CANCELED) Routine, CONTINUOUS, Starting on Tue10/05/20 at 1145, Until Specified, New collection And 0.9% NaCl injection 3 mLJump to med 3 mL, Intracatheter, EVERY 8 HOURS, First dose on 10/05/20 at 1400, Until Discontinued, Flush peripheral IV catheter with 3 mL of normal saline every 8 hours. And 0.9% NaCl injection 1-10 mLJump to med 1-10 mL, Intracatheter, PRN, Other, peripheral line flush, Starting on 10/05/20 at 1144, Until 10/05/20 at 1651, Flush peripheral IV catheter with 1-10 mL of normal saline before and after medications and prn to clear blood from the line or to verify patency. Group 2: SALINE LOCK, INSERT AND MAINTAIN (CANCELED) Routine, CONTINUOUS, Starting on Tue10/05/20 at 1400, Until Specified, New collection And 0.9% NaCl injection 3 mLJump to med 3 mL, Intracatheter, EVERY 8 HOURS, First dose on Tue10/05/20 at 1430, Until Discontinued, Flush peripheral IV catheter with 3 mL of normal saline every 8 hours. And 0.9% NaCl injection 1-10 mLJump to med 1-10 mL, Intracatheter, PRN, Other, peripheral line flush, Starting on Tue10/05/20 at 1350, Until Tue10/05/20 at 1651, Flush peripheral IV catheter with 1-10 mL of normal saline before and after medications and prn to clear blood from the line or to verify patency. Group 3: albuterol (PROVENTIL;VENTOLIN) (5 MG/ML) 0.5% nebulizer solution 15 mg (COMPLETED)Jump to med 15 mg, Inhalation, NOW, 1 dose, On Tue10/05/20 at 1145, Administer over 1 hour And ipratropium (ATROVENT) nebulizer solution 0.5 mg (COMPLETED)Jump to med 0.5 mg, Inhalation, NOW, 1 dose, On Tue10/05/20 at 1145 documented in this encounter
--- OUTSIDE RECORDS SUMMARY | 2024-09-03 19:35 | XMS_ITS | Encounter Summary ---
Author Organization [facility] Healthcare Address [address] [place] [address] Care Team Providers Care Director Of Income Tax Name Role Phone Angeles Hernandez MD Unavailable Ramonita Crawford NP Primary Care Provider [phone] Reason for Referral * Diagnostic Imaging (Routine) - Closed Specialty Diagnoses / Procedures Referred By Contac t Referred To Contact Diagnoses Screening mammogram, encounter for Procedures Screening Mammogram Bilateral W Darren Screening Mammogram, [address] [address] Referral ID Status Reason Start Date Expiration Date Visits Re quested Visits Authorized [id number] Closed 05/05/2023 06/03/2024 1 1 * Diagnostic Imaging (Routine) - Closed Specialty Diagnoses / Procedures Referred By Contac t Referred To Contact Diagnoses Screening mammogram, encounter for Procedures Screening Mammogram Bilateral W Darren Screening Mammogram, [address] [address] Referral ID Status Reason Start Date Expiration Date Visits Re quested Visits Authorized [id number] Closed 05/05/2023 06/03/2024 1 1 Reason for Visit * Diagnostic Imaging (Routine) - Closed Specialty Diagnoses / Procedures Referred By Contac t Referred To Contact Diagnoses Screening mammogram, encounter for Procedures Screening Mammogram Bilateral W Darren Screening Mammogram, [address] [address] Referral ID Status Reason Start Date Expiration Date Visits Re quested Visits Authorized [id number] Closed 05/05/2023 06/03/2024 1 1 Encounter Details Date Type Department Care Team (Latest Contact Info) Description 06/09/2023 3:35 PM CDT - 06/09/2023 11:59 PM CDT Hospital Encounter [facility] [address] [place] [id number] Screening mammogram, encounter for Discharge Disposition: Discharge to home or self care Social History Tobacco Use Types Packs/Day Years [...] often do you attend chur ch or scientologist services? Never 05/10/2023 Do you belong to any clubs o r organizations such as holiness groups, unions, fraternal or athletic groups, or [...] drink containing alc ohol? Monthly or less 06/02/2023 Q2: How many drinks containi ng alcohol do you have on a typical day when you are drinking? 1 or 2 06/02/2023 Q3: How often do you have si x or more drinks on one occasion? Never 06/02/2023 Overall Financial Resource Strain (CARDIA) Answe r [...] place to sleep or slept in a mcc (including now)? 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 Gender Identity Female 03/27/2020 5:01 PM CDT Sexual Orientation Lesbian 03/27/2020 5: 01 PM CDT documented as of this encounter Medications at Time of Discharge [...] 07/04/20 23 documented as of this encounter Discharge Disposition Disposition Code Departure Means Destination Discharge to home or self care documented in this encounter Plan of Treatment Not on file documented as of this encounter Procedures Procedure Name Priority Date/Time Associated Diagnosis Comments SCREENING MAMMOGRAM BILATERAL W DARREN Schedule Routine, Read Routine (OP Routine) 06/09/2023 3:52 PM CDT Screening mammogram, encounter for documented in this encounter Results * Screening Mammogram Bilateral W Darren (06/09/2023 3:52 PM CDT) Anatomical Region Laterality [...] PM CDT EXAMINATION: SCREENING MAMMOGRAM BILATERAL W DARREN ORDERING HEALTHCARE PROVIDER: SELF SCREENING MAMMOGRAM HISTORY: [...] Mammogram IMG MAMMO PROCEDURES Fi nal Result documented in this encounter Visit Diagnoses Diagnosis Screening mammogram, encounter for documented in this encounter Care Teams Director Of Income Tax Relationship Specialty Start Date End Date Ramonita Crawford NP [address] [address] PCP - General Family Medicine 02/18/23 Angeles Hernandez MD [address] [address] Referring Physician Gynecology 07/21/21 documented as of this encounter
--- OUTSIDE RECORDS SUMMARY | 2024-09-03 19:35 | XMS_ITS | Encounter Summary ---
Author Organization [facility] Healthcare Address [address] [place] [address] Care Team Providers Care Tanbark Laborer Name Role Phone Angeles Hernandez MD Unavailable [phone] Ramonita Crawford NP Primary Care Provider [phone] Reason for Visit * Auth/Cert (Routine) Specialty Diagnoses / Procedures Referred By Contac t Referred To Contact Diagnoses Age-related nuclear cataract of right eye Age-related nuclear cataract of right eye [H25.11] Procedures MS XCAPSL CTRC RMVL INSJ IO LENS PROSTH W/O ECP MS XCAPSL CTRC RMVL INSJ IO LENS PROSTH CPLX WO ECP RIGHT EXTRACTION CATARACT - PHACOEMULSIFICATION AND LENS IMPLANT Referral ID Status Reason Start Date Expiration Date Visits Re quested Visits Authorized [id number] 1 1 Encounter Details Date Type Department Care Team (Late st Contact Info) Description 06/21/2023 9:39 AM CDT Anesthesia Event [facility] Operating Room [address] [place] [id number] Jarrod Hopkins MD [facility] [id number] [place] [address] Yajaira Elliott NP [address] [facility] [phone] [place] [address] Anesthesia Record Procedure Summary Procedure Name Responsible Anesthesiologist Anesthesia Start Time Anesthesia Stop Time RIGHT EXTRACTION CATARACT - PHACOEMULSIFICATION AND LENS IMPLANT (Right: Eye) Jarrod Hopkins MD 06/21/23 0939 06/21/23 1 005 Events Date Time Event Comment 06/21/2023 0848 AN Equip Check 0849 0939 An Start 0944 In Room 0944 HOB turned 90 degrees 0944 An Start Data 0945 Start Supplemental O2 0946 Quick Note Ancillary oxyge n set to 2 L/min 0947 An Induction The patient was reevaluated immediately before moderate or deep sedation use and before anesthesia induction. 0947 Anesthesia Ready 0953 Proc Start 0953 Incision Start 1000 Proc Fin 1002 Out of Room 1002 an stop data 1005 Handoff to RN I completed my handoff to the receiving nurse during which we: 1. Patient identified 2. Responsible provider identified 3. Pertinent medical history reviewed 4. Procedure type and surgical course discussed 5. Intraoperative anesthetic management and any significant issues discussed 6. Expectations and concerns for postop period discussed 7. Questions solicited from receiving nurse 8. Patient disposition at the time of handoff: No value filed. 1005 An Stop Meds Name Total midazolam 2 mg/2 mL 2 mg fentaNYL PF 50 mcg Lactated Ringer's (LR) infusion 0 mL * Agents Name O2 N2O Air * Blood No blood administrations on file. Lines, Drains, and Airways Type Details Placement Removal Peripheral IV Placement Date: 06/21/23; Placement Time: 0815; Catheter Size: 22 G; Orientation: Anterior, Right; Location: Hand; Technique: Anatomical landmarks; Inserted by: magdy jiménez rn; Insertion Attempts: 1; Patient Tolerance: Tolerated well; Removal Date: 06/21/23; Removal Time: 1030; Removal Reason: Discharge 06/21/23 0815 by Joceline Jiménez RN 06/21/23 1030 by Georgina Armstrong, ADAMA RETIRED Surgical Site 06/21/23; 0957; Ri ght; Eye; 07/24/24 (Retired LDA, Removed/Completed by [employer] with LDA Utility); 1213 (Retired LDA, Removed/Completed by [employer] with LDA Utility) 06/21/23 0957 by Zeenat Manzo RN 07/24/24 1213 by Discharge Provider, Automatic documented in this encounter Social History Tobacco [...] often do you attend chur ch or restoration services? Never 05/10/2023 Do you belong to any clubs o r organizations such as pentecostal groups, unions, fraternal or athletic groups, or [...] place to sleep or slept in a care home (including now)? No 05/10/2023 Personal Safety Answer Date Recorded Have you ever been in or are you currently in a harmful physical or emotional relationship or is someone making you feel afraid or unsafe? 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 Gender Identity Female 03/27/2020 5:01 PM CDT Sexual Orientation Lesbian 03/27/2020 5: 01 PM CDT documented as of this encounter OR Notes * Anesthesia Postprocedure Evaluation - Jarrod Hopkins MD - 06/21/2023 10:32 AM CDT Patient: Chrissy Kilgore Procedure Summary Date: 06/21/23 Room / Location: [facility] / [facility] Anesthesia Start: 938 Anesthesia Stop: 100 Procedure: RIGHT EXTRACTION CATARACT - PHACOEMULSIFICATION AND LENS IMPLANT (Right: Eye) Diagnosis: Age-related nuclear cataract of right eye (Age-related nuclear cataract of right eye [H25.11]) Surgeons: Mary Ann Webster MD Responsible Provider: Jarrod Hopkins MD Anesthesia Type: MAC ASA Status: 3 Anesthesia Type: MAC Last vitals BP 151/76 Pulse 53 Temp 36 ??C (96.8 ??F) (Temporal) Resp 15 SpO2 100% Anesthesia Post Evaluation Patient location during evaluation: PACU Patient participation: complete - patient participated Level of consciousness: fully awake Pain management: satisfactory to patient Airway patency: adequate and patent Cardiovascular status: acceptable and hemodynamically stable Respiratory status: acceptable and room air Hydration status: acceptable Pt is: normothermic Nausea/Vomiting status: none No notable events documented. * Anesthesia Preprocedure Evaluation - Jarrod Hopkins MD - 06/02/2023 12:33 PM CDT Images from the original note were not included. Center for Preoperative Assessment and Planning Preoperative Evaluation Record Evaluation type/location: TPAP from [facility] Planned procedure site: [facility] Date: 06/02/23 NOTE: This note represents a [...] arrhythmia - bradycardia. Pertinent negatives: CAD ; OR ; CABG ; atrial fibrillation; pacemaker/ICD; DVT/PE; negative for CHF; drug-eluting stent(s) and bare metal stent(s) Comments: Follows with cardiology, Dr Leon Mora at [facility], last seen 1 week ago. Reportsrecent echo in last 2-3 mo, pt reports EF 65% 03/2022 +Takotsubo cardiomyopathy with life vest x 3 mo, stopped wearing 05/2023. 05/2022 Dr Schneider: 1. Recovered Nonischemic cardiomyopathy with severe LV systolic dysfunction. LVEDP 42 mm by cardiaccatheterization on 03/03/2022.Status post cardiac catheterization for abnormal cardiac enzymes on 03/03/2022 at [facility] shows no evidence of coronary artery disease. Her echo today showed LVEF 63%. 2. History of COVID-19 infection February of 2022 with COVID pneumonia. History of Present Illness: Chrissy Kilgore is a pleasant 51 y.o. female who presents to [facility] with shortness of breath. She [...] provided by telephone and electronically sent via [employer]. Patient verbalized understanding of preoperative plan. Blood [...] History: Diagnosis Date Arthritis Asthma Brain concussion [id number] Cardiomyopathy (HCC) Cataract Cholelithiasis Depression [id number] Epiretinal membrane (ERM), bilateral GERD (gastroesophageal reflux disease) Hypercholesteremia Hypertension Irritable bowel syndrome Kidney stone 08/22/2000 Menstrual problem 08/22/2000 Migraines 08/22/2000 Peptic ulceration 0101?? 1 Past Surgical History: Procedure Laterality Date ABDOMINAL SURGERY Bile duct blockage APPENDECTOMY BREAST BIOPSY Left 2013 neg bx CARDIAC DEFIBRILLATOR PLACEMENT 03/02/2022 CATARACT [...] (TYLENOL) 500 mg tablet 06/01/2023 -- -- ProviderJimbo MD albuterol (PROAIR DIGIHALER) 90 mcg/actuation inhaler Past [...] last 30 days. Jeffrey index score: 100 DOS Physical Exam Medical history, medications, and allergies reviewed. Attestation: This PAT evaluation Airway Exam: Mallampati: II Cervical ROM: FROM Cardiovascular Exam: Rate: regular Rhythm: regular Murmur: ALVARO and grade I/ Pulmonary Exam: LCTA, bilat EENT Exam: trachea midline Dental Exam: Upper dentures and lower dentures Skin Exam: Skin is warm and dry. Current state: Patient's current state is cooperative and interactive. Anesthesia Plan ASA 3 My patient is approved for the Anesthesia Controlled Medication protocol when under care of a TECHNICAL DEVELOPER Planned anesthesia: MAC Postoperative Plan: No plan for postoperative opioid use. Patient's planned disposition post procedure is Outpatient. Informed Consent: Anesthesia plan and risks discussed with patient and spouse. Plan and Consent Comments: Topical/ intra-cameral local anesthetic by surgical team. IV medications to minimal sedation thereafter. Consent and Attending signature: I and/or my designee have discussed the anesthesia plan, benefits, possible alternatives, parental presence at time of induction (if indicated), and clinically relevant risks that may include dental injury, unintentional awareness, and/or other complications. The patient and/or parent/legal guardian understand, and agree to proceed. All questions answered. documented in this encounter Plan of Treatment Not on file documented as of this encounter Visit Diagnoses Not on filedocumented in this encounter Administered Medications Inactive Administered Medications - up to 3 most recent administrations Medication Order MAR Action Action Date Dose Rate Site fentaNYL (SUBLIMAZE) preservative free injection intravenous, As needed, Starting on Tue06/21/23 at 0939, Anesthesia Intra-op Given 06/21/2023 9:39 AM CDT 50 mcg Lactated Ringer's (LR) infusion 30 mL/hr, intravenous, Continuous, Starting on Tue06/21/23 at 0830, Pre-Op Rate/Dose Verify 06/21/2023 9:39 AM CDT 30 mL/hr New Bag 06/21/2023 8:15 AM CDT 30 mL/hr 30 mL/hr midazolam (VERSED) 1 mg/mL injection intravenous, As needed, Starting on Tue06/21/23 at 0939, Anesthesia Intra-op Given 06/21/2023 9:39 AM CDT 2 mg documented in this encounter Care Teams Tanbark Laborer Relationship Specialty Start Date End Date Ramonita Crawford NP [address] [address] PCP - General Family Medicine 02/18/23 Angeles Hernandez MD [address] [address] Referring Physician Gynecology 07/21/21 documented as of this encounter
--- OUTSIDE RECORDS SUMMARY | 2024-09-03 19:35 | XMS_ITS | Encounter Summary ---
Author Organization [facility] Address [address] [place] [address] Phone Care Team Providers Care Clerical Administrative Assistant Name Role Phone Angeles Hernandez MD Unavailable [phone] Ramonita Crawford NP Primary Care Provider [phone] Reason for Visit * Reason Comments Postop check Encounter Details Date Type Department Care Team (Late st Contact Info) Description 07/04/2023 9:45 AM CANE FLUME FEEDING MACHINE OPERATOR Office Visit [facility] Ophthalmology [address] [facility] [place] [address] Mary Ann Webster MD [address] [place] [address] Age-related nuclear cataract of right eye (Primary Dx) Social History Tobacco Use Types [...] any clubs o r organizations such as hinduism groups, unions, fraternal or athletic groups, or [...] place to sleep or slept in a prison (including now)? No 05/10/2023 Personal Safety Answer Date Recorded Have you ever been in or are you currently in a harmful physical or emotional relationship or is someone making you feel afraid or unsafe? 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 CANE FLUME FEEDING MACHINE OPERATOR Gender Identity Female 03/27/2020 5:01 PM CDT Sexual Orientation Lesbian 03/27/2020 5: 01 PM CDT documented as of this encounter Ordered Prescriptions Prescription Sig Dispense Quantity Refills Last Filled Start Date End Date prednisoLONE acetate (PRED FORTE) 1 % ophthalmic suspension Administer 1 drop into the right eye 4 (four) times a day 4 times daily (when you wake up, lunch, dinner, bedtime). To decrease inflammation. 5 mL 07/04/2023 documented in this encounter Progress Notes * Mary Ann Webster MD - 07/04/2023 9:45 AM CST Assessment/Plan Diagnoses and all orders for this visit: Age-related nuclear cataract of right eye (Primary) Assessment & Plan: POW1 Right Extraction Cataract - Phacoemulsification And [...] or redness the patient is to call. Other orders - prednisoLONE acetate (PRED FORTE) 1 % ophthalmic suspension; Administer 1 drop into the right eye4 (four) times a day 4 times daily (when you wake up, lunch, dinner, bedtime). To decrease inflammation. I have seen/examined the patient and I agree with the findings/plan of the Resident/Fellow FLUME FEEDING MACHINE OPERATOR documented in this encounter Miscellaneous Notes * Assessment & Plan Note - Mary Ann Webster MD - 07/04/2023 10:14 AM CANE FLUME FEEDING MACHINE OPERATOR Associated Problem(s): Pseudophakia of right eye POW1 Right Extraction Cataract - Phacoemulsification And [...] or redness the patient is to call. FLUME FEEDING MACHINE OPERATOR documented in this encounter Plan of Treatment Not on file documented as of this encounter Visit Diagnoses Diagnosis Age-related nuclear cataract of right eye- Primary documented in this encounter Discontinued Medications Medication Sig Discontinue Reason Start Date End Da te prednisoLONE acetate (PRED FORTE) 1 % ophthalmic suspension Administer 1 drop into the right eye 4 (four) times a day 4 times daily (when you wake up, lunch, dinner, bedtime). To decrease inflammation. Reorder 06/21/2023 07/04/2023 ofloxacin (OCUFLOX) 0.3 % ophthalmic solution Administer 1 drop into the right eye 4 (four) times a day 4 times a day (when you wake up, lunch, dinner, bedtime) 06/21/2023 07/04/2023 documented as of this encounter Eye Exam Visual Acuity (Snellen - Linear) Right eye Left eye Dist sc 20/30 -1 Tonometry (Applanation, 10:05 AM) Right eye Left eye Pressure 15 Pupils Dark Light Shape React APD Right eye 6 5 Round Brisk None Left eye 6 5 Round Brisk None Neuro/Psych Oriented x3: Yes Mood/Affect: Normal Slit Lamp Exam Right eye Left eye Lids/Lashes Normal Conjunctiva/Sclera White and quiet Cornea temporal edema, wounds valentin ne gative Anterior Chamber Deep, 2+ cell Iris pharm dilated Lens PCIOL in good position Anterior Vitreous syneresis Care Teams Clerical Administrative Assistant Relationship Specialty Start Date End Date Ramonita Crawford NP [address] [employer] [address] PCP - General Family Medicine 02/18/23 Angeles Hernandez MD [address] [place] [address] Referring Physician Gynecology 07/21/21 documented as of this encounter
--- OUTSIDE RECORDS SUMMARY | 2024-09-03 19:35 | XMS_ITS | Encounter Summary ---
Author Organization [facility] Healthcare Address [address] [place] [address] Care Team Providers Care Emergency Department Aide Name Role Phone Angeles Hernandez MD Unavailable [phone] Ramonita Crawford NP Primary Care Provider [phone] Reason for Visit * Auth/Cert (Routine) Specialty Diagnoses / Procedures Referred By Contcosme t Referred To Contact Diagnoses Age-related nuclear cataract of right eye Age-related nuclear cataract of right eye [H25.11] Procedures ID XCAPSL CTRC RMVL INSJ IO LENS PROSTH W/O ECP ID XCAPSL CTRC RMVL INSJ IO LENS PROSTH CPLX WO ECP RIGHT EXTRACTION CATARACT - PHACOEMULSIFICATION AND LENS IMPLANT Referral ID Status Reason Start Date Expiration Date Visits Re quested Visits Authorized [id number] 1 1 Encounter Details Date Type Department Care Team (Latest Contact Info) Description 06/21/2023 7:44 AM CDT - 06/21/2023 10:39 AM CDT Hospital Encounter [facility] Operating Room [address] [place] [address] Mary Ann Webster MD [address] [place] [address] Discharge Disposition: Discharge to home or self [...] often do you attend chur ch or protestant services? Never 05/10/2023 Do you belong to any clubs o r organizations such as pentecostalism groups, unions, fraternal or athletic groups, or [...] place to sleep or slept in a retirement (including now)? No 05/10/2023 Personal Safety Answer Date Recorded Have you ever been in or are you currently in a harmful physical or emotional relationship or is someone making you feel afraid or unsafe? 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 BOW MAKER PRODUCTION Gender Identity Female 03/27/2020 5:01 PM CDT [...] your vision Whom to call with concerns: [phone] - [facility] or [phone] - [facility] If after hours, listen to the voicemail for instructions for contacting the Eye Doctor project construction assistant manager. Thank you for entrusting us with your [...] as needed for pain or headaches 09/23/19 ofloxacin (OCUFLOX) 0.3 % ophthalmic solution Administer [...] Preoperative Evaluation Record Evaluation type/location: TPAP from [facility] Planned procedure site: [facility] Date: 06/02/23 NOTE: This note represents a [...] arrhythmia - bradycardia. Pertinent negatives: CAD ; OK ; CABG ; atrial fibrillation; pacemaker/ICD; DVT/PE; negative for CHF; drug-eluting stent(s) and bare metal stent(s) Comments: Follows with cardiology, Dr Leon Mora at [facility], last seen 1 week ago. Reportsrecent echo in last 2-3 mo, pt reports EF 65% 03/2022 +Takotsubo cardiomyopathy with life vest x 3 mo, stopped wearing 05/2023. 05/2022 Dr Schneider: 1. Recovered Nonischemic cardiomyopathy with severe LV systolic dysfunction. LVEDP 42 mm by cardiaccatheterization on 03/03/2022.Status post cardiac catheterization for abnormal cardiac enzymes on 03/03/2022 at [facility] shows no evidence of coronary artery disease. Her echo today showed LVEF 63%. 2. History of COVID-19 infection February of 2022 with COVID pneumonia. History of Present Illness: Chrissy Kilgore is a pleasant 51 y.o. female who presents to [facility] with shortness of breath. She had a [...] provided by telephone and electronically sent via [employer]. Patient verbalized understanding of preoperative plan. Blood [...] History: Diagnosis Date Arthritis Asthma Brain concussion [id number] Cardiomyopathy (HCC) Cataract Cholelithiasis Depression [id number] Epiretinal membrane (ERM), bilateral GERD (gastroesophageal reflux [...] (TYLENOL) 500 mg tablet 06/01/2023 -- -- Jimbo Packer MD albuterol (PROAIR DIGIHALER) 90 mcg/actuation inhaler [...] age undetermined Echocardiogram(s): 02/24/23 (OSH record, see Vortal tab- 06/02/2023): 06/01/22 [place] is normal. Normal [...] Other: 05/26/23 Cards note (OSH record, see [facility]ortal tab- 06/02/2023): 05/24/19 Brain MRI (OSH records [...] right eye. SURGEON: Mary Ann Webster MD PROCESS MANAGER: none ANESTHESIA: MAC with Local INDICATIONS FOR [...] Implant Name Type Inv. Item Serial No. Photo Checker And Assembler Lot No. LRB No. Used Action [employer] Acrysof Iq Natural Stableforce Acrysert 6mm 13mm 1 Piece Foldable [id number]- [id number] - [id number] [employer] Ac[employer]q Natural [employer] Ac[employer]ert 6mm 13mm 1 Piece Foldable [id number] [employer] Right 1 Implanted SPECIMENS REMOVED:none ESTIMATED BLOOD LOSS:minimal INTRAOPERATIVE FLUIDS:Per anesthesia SPONGE/INSTRUMENT/NEEDLE COUNTS:correct COMPLICATIONS: None CONDITION ON DISCHARGE FROM OPERATING ROOM:stable * Pre-Procedure Instructions - Yajaira Elliott NP - 06/02/2023 12:18 PM CDT Center for Preoperative Assessment and Planning CPAP Clinic Location: [facility] The night before your surgery: * Do [...] remove nail coverings, artificial nails and nail vincentian prior to the day of surgery. You should leave your valuables and any jewelry at home. No metal or piercings are allowed in the operating room. You should bring your insurance card, a photo ID (example: Sleeve Maker's License) and a method of payment for [...] Chart. If you are having surgery at [facility], please arrive on the day of [...] Pathway to Excellent Care by the followinglink: [email or web address] How To Prepare Your Skin For Surgery [...] Remove nail coverings, artificial nails and nail vincentian. Place clean linens on your bed the [...] questions, please call the CPAP Staff at [phone], Tuesday-Tuesday 8am-4:30pm. All patients should read the below section: COVID 19 Updates & Visitor Policy: Please access [email or web address] for the most updated information. Information on [facility] or [facility] ([facility]): Please view [email or web address][email or web address] (Patient and Visitor Information) for parking/directions and more. For MyChart information, to activate account or password recovery, please go to [email or web address] or call [phone] (toll-free: [phone]), Tue- Tuesday 8am-5pm. Information for Suicide Prevention: National Suicide Prevention Lifeline (0-325- 588-DQYH (4161)). Surgery Times: For patients having surgery @ [facility] or [facility] ([facility]), if your surgeon's office has not notified you of your surgery time by NOON THE BUSINESS DAY BEFORE your surgery, please call [phone] and ask for your surgeon's office Dr Webster. * Perioperative Nursing Note - Aleja Lentz RN - 06/02/2023 9:29 AM CDT Center for Preoperative Assessment and Planning Perioperative Nursing Note Telephone Preoperative Evaluation ([facility]) - TELEPHONE ONLY, NO PHYSICAL EXAM [...] Directive: Patient does not have advance directive Communication/Air Traffic Controller Center Needs Communication Needs: Glasses Assistive Devices/DME: Eyeglasses, Dentures lower, Dentures upper Discharge Planning Type of Residence: Private residence Living Arrangements: Spouse/significant other Support Systems: Spouse/significant other Assistance Needed: her partner Cesia will be caring for her after procedure Patient expects to be discharged to:: Private residence BUSINESS PROJECT MANAGER NO documented in this encounter Plan of [...] MAR Action Action Date Dose Rate Site DILATING COCKTAIL OPHTHALMIC GEL ophthalmic solution - [...] 8:15 AM CDT 30 mL/hr 30 mL/hr documented in this encounter Discontinued Medications Medication [...] hours as needed for pain or headaches added in this encounter Active and Recently [...] (New Bag - Prov ider: Joceline Jiménez RN)0989 (Rate/Dose Verify - Provider: Yajaira Galarza CRNA)1030 [...] 0954 (Given - Provid er: Mary Ann Webstre MD - Comment: topical) prochlorperazine (COMPAZINE) injection [...] 0954, Intra-Op, Indications: Administration of Corneal Anesthesia 0954 (Given - Provid er: Mary Ann Webster MD) tobramycin-dexAMETHasone (TOBRADEX) 0.3-0.1 % ophthalmic suspension (CANCELED) As needed, Starting on Tue06/21/23 at 0957, Intra-Op 0957 (Given - Provid er: Mary Ann Webster MD) documented in this encounter Orders Medications Ordered That Sarabjit ht Not Have Been Administered Count Last Ordered Date First Ordered Date balanced salt soln no.2 irri g. (BSS) intraocular solution 1 06/21/2023 BSS-EPINEPHrine 0.3 mg prese rvative free intraocular solution (total volume 500 mL) 1 06/21/2023 chondroitin sulf-sod hyaluro n (DUOVISC) 3 %-4 %(0.5 mL) 1 % (0.55 mL) intraocular kit 1 06/21/2023 lidocaine PF (XYLOCAINE) 10 mg/mL (1 %) preservative free injection 1 06/21/2023 lidocaine PF (XYLOCAINE) 10 mg/mL (1 %) preservative free injection 2-10 mg 1 06/21/2023 naloxone (NARCAN) 0.4 mg/mL injection 0.04-0.4 mg 1 06/21/2023 ondansetron (ZOFRAN) injection 4 mg 1 06/21 povidone-iodine (BETADINE ID EP) 5 % ophthalmic solution 1 06/21/2023 prochlorperazine (COMPAZINE) injection 5 mg 1 06/21/2023 sodium chloride 0.9% flush 0.5-20 mL 2 05/24 tetracaine (PF) (ALTACAINE) 0.5 % ophthalmic solution 1 06/21/2023 tobramycin-dexAMETHasone (TO BRADEX) 0.3-0.1 % ophthalmic suspension 1 06/21/2023 Diet Count Last Ordered Date First Orde red Date ADULT DISCHARGE DIET 1 06/21/2023 Nursing Count Last Ordered Date First Orde red Date DISCHARGE ACTIVITY 2 06/21/2023 DISCHARGE CALL PROVIDER 2 06/21/2023 documented in this encounter Care Teams Emergency Department Aide Relationship Specialty Start Date End Date Ramonita Crawford NP [address] [address] PCP - General Family Medicine 02/18/23 Angeles Hernandez MD [address] [address] Referring Physician Gynecology 07/21/21 documented as of this encounter
--- OUTSIDE RECORDS SUMMARY | 2024-09-03 19:35 | XMS_ITS | Encounter Summary ---
Author Organization [facility] Address [address] [place] [address] Phone Care Team Providers Care Supervisor Malted Milk Name Role Phone Angeles Hernandez MD Unavailable [phone] Ramonita Crawford NP Primary Care Provider [phone] Encounter Details Date Type Department Care Team (Late st Contact Info) Description 09/23/2023 10:15 AM PRIMER EXPEDITOR AND DRIER Office Visit [facility] Op[facility]mology [address] [facility] [place] [address] Mary Ann Webster MD [address] [place] [address] Pseudophakia of right eye (Primary Dx); Epiretinal membrane (ERM) of both eyes Social History Tobacco Use Types Packs/Day Years [...] often do you attend chur ch or mosque services? Never 05/10/2023 Do you belong to any clubs o r organizations such as sikh groups, unions, fraternal or athletic groups, or [...] place to sleep or slept in a assisted (including now)? No 05/10/2023 Personal Safety Answer Date Recorded Have you ever been in or are you currently in a harmful physical or emotional relationship or is someone making you feel afraid or unsafe? 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 PRIMER EXPEDITOR AND DRIER Gender Identity Female 03/27/2020 5:01 PM CDT Sexual Orientation Lesbian 03/27/2020 5: 01 PM CDT documented as of this encounter Progress Notes * Mary Ann Webster MD - 09/23/2023 10:15 AM CST Assessment/Plan Diagnoses and all orders for this visit: Pseudophakia of right eye (Primary) Assessment & Plan: 2 months s/p Right Extraction Cataract - Phacoemulsification And Lens Implant - Right Doing well off all drops. MRX today to 20/20. Early PCO Epiretinal membrane (ERM) of both eyes Assessment & Plan: F/u with retina in 3 weeks. I have seen/examined the patient and I agree with the findings/plan of the Resident/Fellow ER EXPEDITOR AND DRIER documented in this encounter Miscellaneous Notes * Assessment & Plan Note - Ryan Devine MD PhD - 09/23/2023 10:45 AM CSTAssociated Problem(s): Epiretinal membrane (ERM) of both eyes F/u with retina in 3 weeks. ER EXPEDITOR AND DRIER * Assessment & Plan Note - Ryan Devine MD PhD - 09/23/2023 10:44 AM CSTAssociated Problem(s): Pseudophakia of right eye 2 months s/p Right Extraction Cataract - Phacoemulsification And Lens Implant - Right Doing well off all drops. MRX today to 20/20. Early PCO ER EXPEDITOR AND DRIER ER EXPEDITOR AND DRIER documented in this encounter Plan of Treatment Not on file documented as of this encounter Visit Diagnoses Diagnosis Pseudophakia of right eye- Primary Lens replaced by other means Epiretinal membrane (ERM) of both eyes documented in this encounter Discontinued Medications Medication Sig Discontinue Reason Start Date End Da te acetaminophen (TYLENOL) 500 mg tablet Take 2 tablets (1,000 mg total) by mouth every 6 (six) hours as needed for pain or headaches Therapy completed 09/23/2023 documented as of this encounter Historical Medications * This list may reflect changes made after this encounter. sertraline (ZOLOFT) 50 mg tablet Take 1 tablet (50 mg total) by mouth daily 09/19/2023 added in this encounter Eye Exam Visual Acuity (Snellen - Linear) Right eye Left eye Dist sc 20/30 -1 20/300 Dist ph sc 20/30 +2 20/30 -2 Tonometry #1 (Applanation, 10:30 AM) Right eye Left eye Pressure 15.5 19 Tonometry #2 (Applanation, 10:44 AM) Right eye Left eye Pressure 17 20 Pupils Dark Light Shape React APD Right eye 7 5.5 Round Brisk None Left eye 7 5.5 Round Brisk None Visual Phillips Right eye Left eye Full Full Extraocular Movement Right eye Left eye Full Full Neuro/Psych Oriented x3: Yes Mood/Affect: Normal Slit Lamp Exam Right eye Left eye Lids/Lashes Normal Conjunctiva/Sclera White and quiet Cornea Clear Anterior Chamber Deep and quiet Iris Round and reactive Lens PCIOL with mild PCO Anterior Vitreous syneresis Fundus Exam Right eye Left eye Disc mild cupping C/D Ratio 0.6 Wearing Rx Sphere Cylinder [place] Add Right eye -2.25 -2.25 095 +2.00 Left eye -1.25 -1.50 040 +2.00 Type: bifocal Manifest Refraction Sphere Cylinder [place] Dist [place] Add Right eye -0.75 +1.25 005 20/20 +2.50 Left eye -2.75 +1.75 130 20/25-1 +2.50 Final Rx Sphere Cylinder [place] Add Right eye -0.75 +1.25 005 +2.50 Left eye -2.75 +1.75 130 +2.50 After cataract surgery right eye: 06/21/2023 Care Teams Supervisor Malted Milk Relationship Specialty Start Date End Date Ramonita Crawford NP [address] [address] PCP - General Family Medicine 02/18/23 Angeles Hernandez MD [address] [address] Referring Physician Gynecology 07/21/21 documented as of this encounter
--- OUTSIDE RECORDS SUMMARY | 2024-09-03 19:35 | XMS_ITS | Continuity of Care Document ---
Author Organization [facility]. Address [address] [place] [address] Phone Care Team Providers Care Centerpuncher Name Role Phone Veena Dixon MD Unavailable Unavailable Allergies, Adverse Reactions, Alerts Substance Reaction Status Criticality tamoxifen Active No Information PENICILLIN Active No Information latex Active No Information Medications Medication Instructions Dosage Effective Dates (start - stop) Status Comments prednisolone acetate 1 % eye drops,suspension instill 1 drop by ophthalmic route 4 times every day into left eye, start after surgery - Active ketorolac 0.4 % eye drops instill 1 drop by ophthalmic route 4 times every day into OS, start 3 days before surgery - Active prednisolone acetate 1 % eye drops,suspension instill 1 drop by ophthalmic route 4 times every day into left eye, start after surgery - No Longer Active ofloxacin 0.3 % eye drops instill 1 drop by ophthalmic route 4 times every day OS, start 3 days before surgery - No Longer Active ketorolac 0.4 % eye drops instill 1 drop by ophthalmic route 4 times every day into OS, start 3 days before surgery - No Longer Active Procedures Procedure Date POSTOP FOLLOW-UP VISIT POSTOP FOLLOW-UP VISIT IOL OPHTHALMOLOGICAL SERVICE;COMPREHENSIVE, NEW PATIENT IOL MASTER OPHTHALMIC BIOMETRY 18 Advance Directives Directive Yes / No Effective Date File Name No Information Encounters Encounter Description Practice Location Reason(s) For Visit Diagnoses Date Provider Providers Copied on Encounter [facility] [address], [address], [place] tel:[phone] No Information Zack Curiel. [address] [place] [address], [facility], . tel:[phone] [facility] [address], [address], [place] tel:[phone] [email or web address] [facility] 1 week PO PCIOL OS near (chief complaint) Presence of intraocular lens Zack Curiel. [address] [place] [address], [facility], [place]. tel:[phone] Referring Provider: Veena Elise, [address] [place] [address], [facility]. tel:[phone] [facility] [address], [facility], tel:[phone] [email or web address] [facility] 1 day PO PCIOL OS (chief complaint) Presence of intraocular lens Zack Curiel. [address] [place] [address], [facility], [place]. tel:[phone] Referring Provider: Veena Elise, [address] [place] [address], [facility]. tel:[phone] [facility] [address], [address], [place] tel:[phone] [employer] No Information Zack Curiel. [address] [place] [address], [address], [place]. tel:[phone] Referring Provider: Veena Elise [address] [place] [address], [address]. tel:[phone] [facility] [address], [address], [place] tel:[phone] [email or web address] [facility] No Information Zack Curiel. [address] [place] [address], [address], [place]. tel:[phone] [facility] [address], [place], [address], [place] tel:[phone] [employer] [facility] CAT EVAL OU (chief complaint) Age-related nuclear cataract of left eyeAge-relate d nuclear cataract of right eye Zack Curiel. [address] [place], [address], [place]. tel:[phone] Referring Provider: Sly Bah, [place], [address]. tel:[phone] Family History Family Member Type Diagnosis Age At Onset No Information Payers Payer name Insurance type Covered democrat ID Authoriza tion(s) No Information Social History Type Description Quantity Date Captured Comments Sex Female Smoking Status No Information Chief Complaint And Reason For Visit No Information Reason For Referral Reason For Referral No Information History Of Present Illness Encounter Date Complaint History Of Prese nt Illness 1 week PO PCIOL OS near The 47 y ear old female presents for evaluation of 1 week PO PCIOL OS near. Pt states vision is good. No pain or irritation. No flashes or floaters. Reported that she sees the reflection of her lens. Compliant with drops.GTTSOSPred 4x Ofloxacin 4xKet 4x 1 day PO PCIOL OS The 47 year ol d female presents for evaluation of 1 day PO PCIOL OS (NEAR). Pt reports vision is blurry, but has improved. Pt states she has had a headache since yesterday after the surgery. Pt states she did sleep with the shield. Pt using Pred QID OS, Ofloxacin QID OS, and Ketorolac QID OS. CAT EVAL OU The 47 year old female presents for evaluation of CAT EVAL OU in the right eye and left eye. Pt referred by Dr. Tiwari, she was seen by him 2 weeks ago. Pt reports for about 8 months, she noticed a decrease in vision at distance and near in OU, gradually getting worse. OS worse than OD. She failed her department of transportation vision test. 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 She reports she can not see the television and does not watch it due to the screen being to blurry. She has progressive lenses and changed her script 1 year ago. She does not drive at night due to glare from car headlights, she has difficulty seeing. Pt denies Halos. Functional Status Date Functional Assessmen t No Information Instructions Date Instruction Additional Infor mation 1 month for complete , or sooner if needed Related to Presence of intraocular lens Impression/Plan Related to Prese nce of intraocular lens 1 week for obs with refraction, sooner if any concerns Related to Presence of intraocular lens Impression/Plan Related to Prese nce of intraocular lens Impression/Plan Related to Age-r elated nuclear cataract of right eye Impression/Plan Related to Age-r elated nuclear cataract of left eye Assessments Type Assessment Date No Information Patient Care Teams Name Effective Dates (start - stop) Status Members No Information
--- OUTSIDE RECORDS SUMMARY | 2024-09-03 19:35 | XMS_ITS | Clinical Summary ---
Author Organization [address] Address [address] [place] [id number] Care Team Providers Care Pumping Station Supervisor Name Role Phone Angeles Hernandez MD Unavailable [phone] Ramonita Crawford NP Primary Care Provider [phone] Allergies Active Allergy Reactions Criticality Noted Date [...] 08/12/2021 Assessment & Plan (09/06/2022 9:29 AM MACHINE SETTER AND REPAIRER): Chronic stable and well Controlled Continue ativan [...] 05/26/2021 Assessment & Plan (09/06/2022 9:29 AM MACHINE SETTER AND REPAIRER): Chronic stable and at goal Continue with metorprolol Assessment & Plan (01/26/2022 4:28 PM CDT): Chronic condition stable well controlled continue hydralazine Assessment & Plan (11/18/2021 11:12 AM CDT): Chronic condition Stable and well control at goal with hydralazine Assessment & Plan (10/06/2021 4:50 PM MACHINE SETTER AND REPAIRER): Chronic condition well-controlled stable but off metoprolol due to sinus bradycardia. She is currently on Holter monitor being followed by Cardiology. Assessment & Plan (07/07/2021 10:28 AM MACHINE SETTER AND REPAIRER): Chronic condition improved control with metoprolol will [...] crestor Assessment & Plan (10/06/2021 4:52 PM MACHINE SETTER AND REPAIRER): Chronic condition at goal rosuvastatin has made significant reduction in LDL will continue with current regimen CK is normal. AST ALT no nd normal Assessment & Plan (07/07/2021 10:17 AM MACHINE SETTER AND REPAIRER): Chronic condition Start crestro 5mg Repeat lft [...] changes. Order lipid panel in 1 mo [facility] COVID-19 04/16/2021 Vitreous syneresis of both eyes 08/26/2020 Assessment & Plan (01/11/2023 8:42 AM CDT): + extensive vitreous opacities peripherally OU Assessment & Plan (08/26/2020 11:38 AM MACHINE SETTER AND REPAIRER): Significant floaters both eyes (OU), but tolerable for patient for now. Will plan for YAG cap OS first. I will see her again after the act to determine if her symptoms are improved and also to monitor the macular pucker. Visual disturbance 07/29/2020 Assessment & Plan (07/29/2020 4:18 PM MACHINE SETTER AND REPAIRER): +white light in vision left eye (OS) [...] 06/21/2023 Assessment & Plan (09/23/2023 10:46 AM MACHINE SETTER AND REPAIRER): 2 months s/p Right Extraction Cataract - Phacoemulsification And Lens Implant - Right Doing well off all drops. MRX today to 20/20. Early PCO Assessment & Plan (07/04/2023 10:14 AM MACHINE SETTER AND REPAIRER): POW1 Right Extraction Cataract - Phacoemulsification And [...] normal Assessment & Plan (09/15/2020 8:13 AM MACHINE SETTER AND REPAIRER): Not yet VS BAT 20/[address] Moscoso for her routine eye care - back to me when VS Assessment & Plan (08/26/2020 11:38 AM MACHINE SETTER AND REPAIRER): SHE WILL CONTINUE TO FOLLOW WITH DR. Yuen Assessment & Plan (07/29/2020 4:20 PM MACHINE SETTER AND REPAIRER): Mild; not yet VS -follow PCO (posterior capsular opacification), left 03/2020 Assessment & Plan (02/18/2023 8:31 AM CDT): Open PC Clear view Assessment & Plan (09/15/2020 8:14 AM MACHINE SETTER AND REPAIRER): PCO OS VS with glare Aware will not change ERM Plan for YAG OS today Follow 4 weeks, then to Dr. Moscoso thereafter Assessment & Plan (08/26/2020 11:38 AM MACHINE SETTER AND REPAIRER): Has mild PCO OS. Will send for YAG Cap to see if helps patient's constant blurriness . Patient understands that this will not improve floaters or ERM, which would require a retina surgery. Patient tolerates floaters at this time and no metamorphopsia from ERM. I think such a staged approach is reasonable and the patient agreed Assessment & Plan (07/29/2020 4:20 PM MACHINE SETTER AND REPAIRER): -sp cataract [facility]CE[facility] [place] [facility]: consider yag cap after retina eval Epiretinal membrane (ERM) of both eyes 0 Assessment & Plan (09/23/2023 10:45 AM MACHINE SETTER AND REPAIRER): F/u with retina in 3 weeks. Assessment [...] point Assessment & Plan (09/15/2020 8:14 AM MACHINE SETTER AND REPAIRER): ERM OU Observing with Dr. Jay Assessment & Plan (08/26/2020 11:22 AM MACHINE SETTER AND REPAIRER): Patient denies metamorphopsia, good visual acuity. Defer intervention at this time for ERM. Assessment & Plan (07/29/2020 4:20 PM MACHINE SETTER AND REPAIRER): left eye (OS)>>OD +pt complains of very [...] Due Influenza, Unspecified 06/09/2021(Deferred: Janki ent Refused) Surgical History Surgery Date Site/Laterality Comments APPENDECTOMY CATARACT EXTRACTION 08/22/2015 - 08/21/2016 Left CHOLECYSTECTOMY SMALL INTESTINE SURGERY SBO OOPHORECTOMY Left cyst DILATION AND CURETTAGE OF UTERUS 07/22/20 - 08/21/2012 benign polyp COLONOSCOPY ABDOMINAL SURGERY Bile duct blockage BREAST BIOPSY 08/22/2012 - 08/21/2013 Left neg bx ENDOSCOPIC RETROGRADE CHOLANGIOPANCREATOGRAPHY W/ SPHINCTEROTOMY AND STONE REMOVAL 05/09/2023 stent placement ENDOSCOPIC RETROGRADE CHOLANGIOPANCREATOGRAPHY W/ SPHINCTEROTOMY AND STONE REMOVAL 05/11/2023 stent removal Medical History Medical History Date Comments Asthma Irritable bowel syndrome GERD (gastroesophageal reflux disease) Brain concussion 1607032 Depression [id number] Migraines 08/22/2000 Peptic ulceration 0101? 1 Kidney stone 08/22/2000 Menstrual problem 08/22/2000 Epiretinal membrane (ERM), bilateral Hypertension Hypercholesteremia Arthritis Cholelithiasis Cardiomyopathy (HCC) Cataract Family History Medical History Relation Name Comments No Known Problems Brother 1 No Known Problems Brother 2 Allergy (severe) Brother 3 Elder No Known Problems Daughter 1 No Known Problems Daughter 2 Asthma Daughter 3 Cassia Depression Daughter 3 Cassia Depression Daughter 4 Georgina Miscarriages / Stillbirths Daughter 4 Georgina COPD Father Joshua Cancer Father Joshua Alzheimer's disease Maternal Grandfather Estle Stroke Maternal Grandfather Estle Alzheimer's disease Maternal Grandmother Vertie Stroke Maternal Grandmother Vertie Breast cancer Mother Daria Cancer Mother Daria Pancreatic cancer Mother's Brother Claudio Anesthesia problems Neg Hx Diabetes Neg Hx Glaucoma Neg Hx Macular degeneration Neg Hx Ovarian cancer Neg Hx Retinal detachment Neg Hx Thyroid cancer Neg Hx Thyroid disease Neg Hx Relation Name Status Comments Brother 1 Alive Brother 2 Alive Brother 3 Elder Daughter 1 Alive Daughter 2 Alive Daughter 3 Cassia Daughter 4 Georgina Father Joshua Alive Maternal Grandfather Rin Maternal Grandmother Rush Mother Daria Mother's Brother Claudio Alive Social History Tobacco Use Types Packs/Day Years [...] week 05/10/2023 How often do you attend [facility] or moravian services? Never 05/10/2023 Do you belong to any clubs o r organizations such as amish groups, unions, fraternal or athletic groups, or [...] place to sleep or slept in a fci (including now)? No 05/10/2023 Personal Safety Answer Date Recorded Have you ever been in or are you currently in a harmful physical or emotional relationship or is someone making you feel afraid or unsafe? 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 MACHINE SETTER AND REPAIRER Gender Identity Female 03/27/2020 5:01 PM CDT Sexual Orientation Lesbian 03/27/2020 5: 01 PM CDT Obstetrics History Para Term AB IAB SAB Ectopic Multiple Livin g Live Births 3 2 2 Date Outcome GA Total Labor Labor/2nd/3rd Weight Sex Type Anes PTL Tona A1 A5 Name Clin Term Term Last Filed Vital Signs Vital Sign Reading [...] 06/21/2023 7:50 AM CDT Plan of Treatment Health Maintenance Due Date Last Done Comments Cervical Cancer Screening 1970 Hepatitis C Screening 1970 DTaP/Tdap/Td Vaccine (1 - Tdap) 1981 Hepatitis B Screening 1988 Regular Well Visit/Exam 18-64 1988 Zoster Vaccine (1 of 2) 2020 Depression Screening 05/04/2023 05/04/2022, 03/10/2021, 12/24/2020, Additional history exists Influenza Vaccine (#1) 2024 Breast Cancer Screening-Mammogram 06/09/2024 06/09/2023, 05/18/2022, 12/10/2020, Additional history exists Colon Cancer Screening-Colonoscopy 11/18/2026 Postponed from 1970 (Patient declined, but will receive in the future) Pneumococcal vaccine <65 Aged Out No longer eligible based on patient's age to complete this topic Medical Devices Implanted Type Area Supervisor Telephone Information Device Identifier Shelf Expiration Date Model / Serial / Lot [employer] Acrysof Iq Natural Stableforce Acrysert 6mm 13mm 1 Piece Foldable [id number].185 - [id number] - [id number] Implanted:Qty: 1 on 06/21/2023 by Mary Ann Webster MD at [facility] Surgery Glide Right: Eye [employer] [id number] 11/07/2027 [id number].18 5 / [id number] / Explanted Type Area Supervisor Telephone Information Device Identifier Shelf Expiration Date Model / Serial / Lot [email or web address] Michelle Flexi-Stent 7fr 7cm Small Pigtail Flexible .035in Stent 6574 - [id number] Implanted:Qty: 1 on 05/09/2023 by Jordan Duff MD at [facility] Explanted:Qty: 1 on 05/11/2023 by Jordan Duff MD at [facility] N/A: Pancreas [employer] [id number] 12/21/2027 [id number] / / [id number] [employer] Shreya Wallflex 10mm X 60mm Fully Covered Biliary [id number] - [id number] Implanted:Qty: 1 on 05/09/2023 by Jordan Duff MD at [facility] Explanted:Qty: 1 on 05/11/2023 by Jordan Duff MD at [facility] N/A: Bile Duct Trenergi Shreya 03/01/2025 [id number] / / [id number] Procedures Procedure Name Priority Date/Time Associated Diagnosis Comments SCREENING MAMMOGRAM BILATERAL W DARREN Schedule Routine, Read Routine (OP Routine) 06/09/2023 3:52 PM CDT Screening mammogram, encounter for from Last 3 Months or Most Recently Relevant to Health Maintenance Results * Screening Mammogram Bilateral W Darren [...] Most Recently Relevant to Health Maintenance Insurance Advance Directives For more information, please contact: [phone] * Full Code (Latest Code Status on File) Date Activated Date Inactivated Comments 05/09/2023 5:28 PM 05/11/2023 10:17 PM Care Teams Pumping Station Supervisor Relationship Specialty Start Date End Date Ramonita Crawford NP [address] [address] PCP - General Family Medicine 02/18/23 Angeles Hernandez MD [address] [address] Referring Physician Gynecology 07/21/21
--- OUTSIDE RECORDS SUMMARY | 2024-09-03 19:35 | XMS_ITS | Encounter Summary ---
Author Organization [facility] Healthcare Address [address] [place] [id number] Care Team Providers Care Classification Inspector Name Role Phone Angeles Hernandez MD Unavailable [phone] Ramonita Crawford NP Primary Care Provider [phone] Reason for Referral * Diagnostic Imaging (Routine) - Closed Specialty Diagnoses / Procedures Referred By Contac t Referred To Contact Diagnoses Urinary incontinence, unspecified type Procedures US Retroperitoneal Complete Lorene Celaya DPM [address] [place] [address] Phone: tel: fax: [address] [phone] Referral ID Status Reason Start Date Expiration Date Visits Re quested Visits Authorized [id number] Closed 07/04/2023 08/02/2024 1 1 OND SETTER APPRENTICE Reason for Visit * Diagnostic Imaging (Routine) - Closed Specialty Diagnoses / Procedures Referred By Contac t Referred To Contact Diagnoses Urinary incontinence, unspecified type Procedures US Retroperitoneal Complete Lorene Celaya DPM [address] [place] [address] Phone: tel: fax: [address] [phone] Referral ID Status Reason Start Date Expiration Date Visits Re quested Visits Authorized [id number] Closed 07/04/2023 08/02/2024 1 1 Encounter Details Date Type Department Care Team (Latest Contact Info) Description 08/02/2023 1:14 PM DIAMOND SETTER APPRENTICE - 08/02/2023 11:59 PM DIAMOND SETTER APPRENTICE Hospital Encounter [facility] [address] [place] [address] Urinary incontinence, unspecified type Discharge Disposition: Discharge to home or self [...] often do you attend chur ch or druze services? Never 05/10/2023 Do you belong to any clubs o r organizations such as mormon groups, unions, fraternal or athletic groups, or [...] place to sleep or slept in a long term (including now)? No 05/10/2023 Personal Safety Answer Date Recorded Have you ever been in or are you currently in a harmful physical or emotional relationship or is someone making you feel afraid or unsafe? 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 DIAMOND SETTER APPRENTICE Gender Identity Female 03/27/2020 5:01 PM CDT [...] by mouth daily 90 tablet 1 08/27/2022 prednisoLONE acetate (PRED FORTE) 1 % ophthalmic suspension Administer 1 drop into the right eye 4 (four) times a day 4 times daily (when you wake up, lunch, dinner, bedtime). To decrease inflammation. 5 mL 07/04/2023 rosuvastatin (CRESTOR) 5 mg tabletIndications: Hypercholesteremia TAKE [...] needed for pain or headaches 09/23/19 24 documented as of this encounter Discharge Disposition Disposition Code Departure Means Destination Discharge to home or self care documented in this encounter Plan of Treatment Not on file documented as of this encounter Procedures Procedure Name Priority Date/Time Associated Diagnosis Comments US RETROPERITONEAL COMPLETE Schedule Routine, Read Routine (OP Routine) 08/02/2023 1:57 PM DIAMOND SETTER APPRENTICE Urinary incontinence, unspecified type documented in this encounter Results * US Retroperitoneal Complete (08/02/2023 1:57 PM DIAMOND SETTER APPRENTICE) Anatomical Region Laterality Modality Abdomen N/A Ultrasound 08/03/2023 6:09 PM DIAMOND SETTER APPRENTICE Narrative 08/03/2023 6:10 PM DIAMOND SETTER APPRENTICE EXAM DESCRIPTION: US RETROPERITONEAL COMPLETE REASON FOR STUDY: Urinary incontinence. ??Increased urinary frequency for 1 year. TECHNIQUE: Ultrasound of the kidneys and urinary bladder was performed with grayscale imaging. COMPARISON: None FINDINGS: RIGHT KIDNEY: The right kidney measures ??10.7 cm in length. ??There is no hydronephrosis. There is normal cortical thickness and echogenicity. LEFT KIDNEY: The left kidney measures ??11.4 cm in length. ??There is no hydronephrosis. There is normal cortical thickness and echogenicity. URINARY BLADDER: ?? The urinary bladder, as visualized, appears unremarkable. The bilateral ureteral jets are visualized. ?? Prior to voiding, bladder volume was 142.6 cc. ??After voiding, bladder volume was 24.4 cc. OTHER: ?? No other additional findings. IMPRESSION: Normal renal ultrasound. ??24.4 cc postvoid residual volume within the bladder. THIS IS AN ELECTRONICALLY VERIFIED FINAL REPORT 08/03/2023 6:10 PM - Electronically signed by ??Jose Rivera M.D. KT: BILL D: ??08/03/2023 6:10 PM T: ??08/03/2023 6:10 PM Report ID: [id number] Reading Location: ??[id number] Procedure Note Jose Rivera MD - 08/03/2023 EXAM DESCRIPTION: US RETROPERITONEAL COMPLETE REASON FOR STUDY: Urinary incontinence. Increased urinary frequency for 1 year. TECHNIQUE: Ultrasound of the kidneys and urinary bladder was performedwith grayscale imaging. COMPARISON: None FINDINGS: RIGHT KIDNEY: The right kidney measures 10.7 cm in length. There is no hydronephrosis. There is normal cortical thickness and echogenicity. LEFT KIDNEY: The left kidney measures 11.4 cm in length. There is no hydronephrosis. There is normal cortical thickness and echogenicity. URINARY BLADDER: The urinary bladder, as visualized, appearsunremarkable. The bilateral ureteral jets are visualized. Prior to voiding, bladdervolume was 142.6 cc. After voiding, bladder volume was 24.4 cc. OTHER: No other additional findings. IMPRESSION: Normal renal ultrasound. 24.4 cc postvoid residual volume within thebladder. THIS IS AN ELECTRONICALLY VERIFIED FINAL REPORT 08/03/2023 6:10 PM - Electronically signed by Jose Rivera M.D. KT: KT Report ID: [id number] Reading Location: [id number] us Lorene Celaya DPM IMG US PROCEDURES Final Res ult documented in this encounter Visit Diagnoses Diagnosis Urinary incontinence, unspecified type documented in this encounter Care Teams Classification Inspector Relationship Specialty Start Date End Date Ramonita Crawford NP [address] [address] PCP - General Family Medicine 02/18/23 Angeles Hernandez MD [address]22 [address] [address] Referring Physician Gynecology 07/21/21 documented as of this encounter
--- OUTSIDE RECORDS SUMMARY | 2024-09-03 19:36 | XMS_ITS | Encounter Summary ---
Author Organization [facility] Address [address] [place] [address] Care Team Providers Care Streetcar Dispatcher Name Role Phone Angeles Hernandez MD Unavailable [phone] Jeff Guzman Primary Care Provider [phone] Reason for Visit * Reason Comments Pain Wound in belly-stap Encounter Details Date Type Department Care Team (Late st Contact Info) Description 09/06/2022 8:45 AM STRAP CUTTING MACHINE OPERATOR Office Visit [facility] Family Medicine at [address] [place] [address] Jeff Guzman PA [address] [place] [address] [address] [place] [address] Essential hypertension (Primary Dx); Arthralgia, unspecified joint; Myalgia; XENA (generalized anxiety disorder); Abscess Social History Tobacco Use Types Packs/Day Years Used Date Smoking Tobacco: Never Smokeless Tobacco: Never Alcohol Use Standard Drinks/Week Comments Never 0 (1 standard drink = 0.6 oz pur e alcohol) AUDIT-C Answer Date Recorded Q1: How often do you have a drink containing alcohol? Never 09/06/2022 Q2: How many drinks containi ng alcohol do you have on a typical day when you are drinking? Patient does not drink Q3: How often do you have si x or more drinks on one occasion? Never 09/06/2022 PHQ-2 Answer Date Recorded PHQ-2 Total Score (If total score is 3 or more points, staff should administer the PHQ-9) 5 04/30/2022 Comments No Sex and Gender Information Value Date Recorded Sex Assigned at Not on file 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 STRAP CUTTING MACHINE OPERATOR Gender Identity Female 03/27/2020 5:01 PM CDT Sexual Orientation Lesbian 03/27/2020 5: 01 PM CDT documented as of this encounter Last Filed Vital Signs Vital Sign Reading Time Taken Comments Blood Pressure 124/88 09/06/2022 8:41 AM STRAP CUTTING MACHINE OPERATOR Pulse 55 09/06/2022 8:41 AM STRAP CUTTING MACHINE OPERATOR Temperature 36.4 ??C (97.5 ??F) 09/06/2022 8:41 AM CS T Respiratory Rate 18 09/06/2022 8:41 AM STRAP CUTTING MACHINE OPERATOR Oxygen Saturation 100% 09/06/2022 8:41 AM STRAP CUTTING MACHINE OPERATOR Inhaled Oxygen Concentration - - Weight 82.4 kg (181 lb 9.6 oz) 09/06/2022 8:41 A M STRAP CUTTING MACHINE OPERATOR Height 165.1 cm (5' 5 ) 09/06/2022 8:41 AM STRAP CUTTING MACHINE OPERATOR Body Mass Index 30.22 09/06/2022 8:41 AM STRAP CUTTING MACHINE OPERATOR documented in this encounter Ordered Prescriptions Prescription Sig Dispense Quantity Refills Last Filled Start Date End Date fluticasone propionate (FLONASE) 50 mcg/actuation nasal spray Administer 2 sprays into each nostril daily 1 each 3 09/06/2022 ciprofloxacin (CIPRO) 500 mg tabletIndications: Abscess Take 1 tablet (500 mg total) by mouth 2 (two) times a day for 7 days 14 tablet 09/06/2022 3 LORazepam (ATIVAN) 0.5 mg tabletIndications: XENA (generalized anxiety disorder) Take 1 tablet (0.5 mg total) by mouth nightly 30 tablet 09/06/2022 3 documented in this encounter Progress Notes * Jeff Guzman PA - 09/06/2022 8:45 AM CST Images from the original note were not included. Subjective/Objective Patient ID: Chrissy Kilgore is a 52 y.o. female. Chief Complaint Pain (Wound in belly-staph ) HPI Patient is here to follow-up on hypertension. Blood pressure remains well controlled tolerating metoprolol. Patient does use lorazepam daily. Does help calm her anxiety. Patient reports no chest painpalpitations shortness of breath GI concerns at this time. Patient does have multi joint and muscle pain been going on for couple of years seems to be steadily getting worse. He is difficult for to ambulate upon initial rising. She does feel tight stiff in multiple joints and muscles. Patient also has recurrent abscess in the abdomen old incisional. Review of Systems Constitutional: Negative for fatigue, fever and unexpected weight change. HENT: Negative for congestion, ear pain, hearing loss, rhinorrhea and voice change. Eyes: Negative for discharge, redness and visual disturbance. Respiratory: Negative for cough, chest tightness and shortness of breath. Cardiovascular: Negative for chest pain, palpitations and leg swelling. Gastrointestinal: Negative for abdominal pain, blood in stool, constipation, diarrhea and nausea. Endocrine: Negative for polydipsia and polyuria. Genitourinary: Negative for dysuria and frequency. Musculoskeletal: Positive for arthralgias. Skin: Positive for wound. Negative for color change and rash. Neurological: Negative for dizziness, tremors and headaches. Hematological: Does not bruise/bleed easily. Psychiatric/Behavioral: Negative for confusion and dysphoric mood. Blood pressure 124/88, pulse 55, temperature 36.4 ??C (97.5 ??F), temperature source Oral, resp. rate 18, height 165.1 cm (5' 5 ), weight 82.4 kg (181 lb 9.6 oz), SpO2 100 %. Physical Exam Vitals reviewed. Constitutional: General: She is not in acute distress. Appearance: Normal appearance. She is not ill-appearing. HENT: Head: Normocephalic. Eyes: Extraocular Movements: Extraocular movements intact. Conjunctiva/sclera: Right eye: Right conjunctiva is not injected. Left eye: Left conjunctiva is not injected. Cardiovascular: Rate and Rhythm: Normal rate and regular rhythm. Pulses: Normal pulses. Heart sounds: Normal heart sounds. Pulmonary: Effort: Pulmonary effort is normal. No respiratory distress. Breath sounds: Normal breath sounds. Skin: Findings: Abscess present. Neurological: General: No focal deficit present. Mental Status: She is alert. Psychiatric: Attention and Perception: Attention normal. Mood and Affect: Mood normal. Speech: Speech normal. Behavior: Behavior normal. Behavior is cooperative. Thought Content: Thought content normal. Assessment/Plan Diagnoses and all orders for this visit: Essential hypertension (I10) (Primary) Assessment & Plan: Chronic stable and at goal Continue with metorprolol Orders: - TSH; Future - Comprehensive metabolic panel; Future - CBC with auto differential; Future Arthralgia, unspecified joint (M25.50) - VAMSHI Antibody Evaluation with Reflex; Future - LIZZY qualitative with reflex to LIZZY Quantitative; Future - Anti-double stranded DNA antibodies; Future - C3 complement; Future - C4 complement; Future - Rheumatoid factor; Future - Erythrocyte sedimentation rate; Future - CRP (acute phase); Future - TSH; Future - Comprehensive metabolic panel; Future - CBC with auto differential; Future Myalgia (M79.10) Comments: order lupus panel order sed rate crp\par ck level Orders: - VAMSHI Antibody Evaluation with Reflex; Future - LIZZY qualitative with reflex to LIZZY Quantitative; Future - Anti-double stranded DNA antibodies; Future - C3 complement; Future - C4 complement; Future - Rheumatoid factor; Future - Erythrocyte sedimentation rate; Future - CRP (acute phase); Future - TSH; Future - Comprehensive metabolic panel; Future - CBC with auto differential; Future XENA (generalized anxiety disorder) (F41.1) Assessment & Plan: Chronic stable and well Controlled Continue ativan refill today Orders: - LORazepam (ATIVAN) 0.5 mg tablet; Take 1 tablet (0.5 mg total) by mouth nightly - TSH; Future Abscess (L02.91) Comments: start cipro Orders: - ciprofloxacin (CIPRO) 500 mg tablet; Take 1 tablet (500 mg total) by mouth 2 (two) times a day for 7 days Other orders - fluticasone propionate (FLONASE) 50 mcg/actuation nasal spray; Administer 2 sprays into each nostril daily CANDE Du P CUTTING MACHINE OPERATOR documented in this encounter Miscellaneous Notes * Assessment & Plan Note - Jeff Guzman PA - 09/06/2022 9:29 AM CSTAssociated Problem(s): XENA (generalized anxiety disorder) Chronic stable and well Controlled Continue ativan refill today P CUTTING MACHINE OPERATOR * Assessment & Plan Note - Jeff Guzman PA - 09/06/2022 9:28 AM CSTAssociated Problem(s): Essential hypertension Chronic stable and at goal Continue with metorprolol P CUTTING MACHINE OPERATOR documented in this encounter Plan of Treatment Not on file documented as of this encounter Results * CBC with auto differential (09/06/2022 9:58 AM STRAP CUTTING MACHINE OPERATOR) Pathologist [facility] WBC 4.9 3.8 - 9.9 K/cumm [facility] Hgb 14.0 11.9 - 15.5 g/dL [facility] Hct 41.6 35.6 - 45.5 % [facility] Plt 341 150 - 400 K/cumm [facility] MPV 9.9 9.1 - 12.3 fL [facility] RBC 4.75 3.90 - 5.20 M/cumm [facility] MCV 87.6 81.3 - 96.4 fL [facility] MCH 29.5 27.1 - 33.3 pg [facility] MCHC 33.7 32.3 - 35.7 g/dL [facility] RDW CV 12.4 11.1 - 14.9 % [facility] RDW SD 39.4 35.7 - 48.1 fL [facility] NRBC abs 0.00 0.00 - 0.01 K/cumm [facility] Blood 09/06/2022 9:58 AM STRAP CUTTING MACHINE OPERATOR 09/06/2022 12:28 PM STRAP CUTTING MACHINE OPERATOR us Jeff CASTELLON LAB BLOOD ORDERABLES [facility] [address] [facility] Department [place] [address] * (ABNORMAL) Comprehensive metabolic panel (09/06/2022 9:58 AM STRAP CUTTING MACHINE OPERATOR) [facility] Sodium 139 135 - 145 mmol/L [facility] Potassium, pl 4.3 3.3 - 4.9 mmol/L [facility] Chloride 102 97 - 110 mmol/L [facility] CO2 29 22 - 32 mmol/L [facility] Anion gap 8 2 - 15 mmol/L [facility] BUN 16 8 - 25 mg/dL [facility] Creatinine 0.60 0.60 - 1.10 mg/dL [facility] Glucose 104 70 - 199 mg/dL [facility] Comment: Interpretive Data Fasting glucose >/= 126 mg/dl is diagnostic for diabetes. ?? Fasting is defined as no caloric intake for at least 8 hours. Fasting glucose between 100 mg/dl to 125 mg/dl is diagnostic of prediabetes. In a patient with classic symptoms of hyperglycemia or hyperglycemic crisis, a random glucose >/= 200 mg/dl is diagnostic for diabetes. In the absence of unequivocal hyperglycemia, results should be confirmed by repeat testing. The classification and Diagnosis of Diabetes Diabetes Care 2021; 46: S19-S40. Current interpretive data was last revised 2022. Calcium 9.8 8.5 - 10.3 mg/dL [facility] Bilirubin, total 0.6 0.1 - 1.2 mg/dL [facility] Protein, pl 7.6 6.5 - 8.5 g/dL [facility] Albumin 4.7 3.5 - 5.0 g/dL [facility] Alk phos 157(H) 40 - 130 Units/L [facility] ALT 54(H) 7 - 45 Units/L [facility] AST 91(H) 10 - 45 Units/L [facility] Blood 09/06/2022 9:58 AM STRAP CUTTING MACHINE OPERATOR 09/06/2022 12:28 PM STRAP CUTTING MACHINE OPERATOR us Jeff CASTELLON LAB BLOOD ORDERABLES Final Resu lt Performing Organization Address [facility] Co de Phone Number [facility] [address] [facility] [place] [address] * TSH (09/06/2022 9:58 AM STRAP CUTTING MACHINE OPERATOR) Pathologist [facility] Thyroid Stimulating Hormone 1.86 0.30 - 4.20 mcIUnit/mL [facility] Blood 09/06/2022 9:58 AM STRAP CUTTING MACHINE OPERATOR 09/06/2022 12:28 PM STRAP CUTTING MACHINE OPERATOR Jeff CASTELLON LAB BLOOD ORDERABLES Final Resu lt Performing Organization Address [facility]/ZIP Co de Phone Number [address] [place] [address] * CRP (acute phase) (09/06/2022 9:58 AM STRAP CUTTING MACHINE OPERATOR) Pathologist [facility] CRP 1.1 <=10.0 mg/L [facility] Blood 09/06/2022 9:58 AM STRAP CUTTING MACHINE OPERATOR 09/06/2022 12:28 PM STRAP CUTTING MACHINE OPERATOR us Jeff CASTELLON LAB BLOOD ORDERABLES Final Resu lt Performing Organization Address [facility] Co de Phone Number [address] [place] [address] * Erythrocyte sedimentation rate (09/06/2022 9:58 AM STRAP CUTTING MACHINE OPERATOR) Pathologist [facility] Erythrocyte sedimentation rate 23 1 - 30 mm/hr [facility] Blood 09/06/2022 9:58 AM STRAP CUTTING MACHINE OPERATOR 09/06/2022 12:28 PM STRAP CUTTING MACHINE OPERATOR us Jeff CASTELLON LAB BLOOD ORDERABLES Final Resu lt Performing Organization Address [facility]/ZIP Co de Phone Number [address] [place] [address] * Rheumatoid factor (09/06/2022 9:58 AM STRAP CUTTING MACHINE OPERATOR) Pathologist [facility] Rheumatoid factor, quant 11.0 <=15.0 IUnits/mL [facility] Blood 09/06/2022 9:58 AM STRAP CUTTING MACHINE OPERATOR 09/06/2022 12:28 PM STRAP CUTTING MACHINE OPERATOR us Jeff CASTELLON LAB BLOOD ORDERABLES Final Resu lt Performing Organization Address [facility]/ZIP Co de Phone Number [address] [place] [address] * C4 complement (09/06/2022 9:58 AM STRAP CUTTING MACHINE OPERATOR) Pathologist [facility] Complement C4 34.4 10.0 - 40.0 mg/dL [facility] Comment:Testing performed by : [facility], [address] [place] [address]., [id number] Blood 09/06/2022 9:58 AM STRAP CUTTING MACHINE OPERATOR 09/06/2022 3:47 PM STRAP CUTTING MACHINE OPERATOR us Jeff CASTELLON LAB BLOOD ORDERABLES Final Resu lt Performing Organization Address [facility] de Phone Number [facility] [place] [address] * C3 complement (09/06/2022 9:58 AM STRAP CUTTING MACHINE OPERATOR) Complement C3 176.0 90.0 - 180.0 mg/dL [facility] Comment:Testing performed by : [facility], [address] [place] [address], [id number] Blood 09/06/2022 9:58 AM STRAP CUTTING MACHINE OPERATOR 09/06/2022 3:47 PM STRAP CUTTING MACHINE OPERATOR us Jeff CASTELLON LAB BLOOD ORDERABLES Final Resu lt Performing Organization Address [facility] de Phone Number [address] [place] [address] * Anti-double stranded DNA antibodies (09/06/2022 9:58 AM STRAP CUTTING MACHINE OPERATOR) dsDNA Ab 1.0 <=4.0 IUnits/mL [facility] Comment: Interpretive Data Negative: < or = 4 IUnits/mL Indeterminate: 5 - 9 IUnits/mL Positive: > or = 10 IUnits/mL Current interpretive data was last revised on 2017. Testing performed by: [facility], [address] [place] [address]., [id number] Blood 09/06/2022 9:58 AM STRAP CUTTING MACHINE OPERATOR 09/06/2022 3:47 PM STRAP CUTTING MACHINE OPERATOR us Jeff CASTELLON LAB BLOOD ORDERABLES Final Resu lt Performing Organization Address [facility] Co de Phone Number [facility] [place] [address] * LIZZY qualitative with reflex to LIZZY Quantitative (09/06/2022 9:58 AM STRAP CUTTING MACHINE OPERATOR) LIZZY Negative [facility] Comment: Interpretive Data Normal range for LIZZY Qualitative Antibody = Negative. 1. LIZZY is performed using indirect immunofluorescence against HEp-2 cells 2. LIZZY titers are performed on all positive qualitative results. 3. A significantly positive LIZZY result is defined as a positive nuclear fluorescence at a titer of 1:80 or greater. 4. 15% of normal people above age 65 have significantly positive LIZZY results. ??5% or less of normal people age 65 or under have significantly positive LIZZY results. Current interpretive data was last revised on 2020. Testing performed by: [facility], [address] [place] [address]., [id number] Blood 09/06/2022 9:58 AM STRAP CUTTING MACHINE OPERATOR 09/06/2022 3:47 PM STRAP CUTTING MACHINE OPERATOR Jeff CASTELLON LAB BLOOD ORDERABLES Final Resu lt Performing Organization Address [facility] Co de Phone Number [place] [phone] [facility] [place] [address] * VAMSHI Antibody Evaluation with Reflex (09/06/2022 9:58 AM STRAP CUTTING MACHINE OPERATOR) VAMSHI ab Negative Negative [facility] Comment: Interpretive Data Positive Screens will be reflexed to specific testing for the following antigens: Lindsay-1 Ab, LINUX DEVELOPER Ab, Scl-70 Ab, Elliott Ab, SS-A/Ro Ab, and SS-B/La Ab. Further testing for dsDNA, Centromere, or Ribosomal P antibodies is suggested in patient with a positive screen and negative specific antibodies. Current interpretive data was last revised on 16. Testing performed by: [facility], [address] [place] [address]., [id number] Blood 09/06/2022 9:58 AM STRAP CUTTING MACHINE OPERATOR 09/06/2022 3:47 PM STRAP CUTTING MACHINE OPERATOR us Jeff CASTELLON LAB BLOOD ORDERABLES Final Resu lt [facility] [address] [facility] [place] [address] documented in this encounter Visit Diagnoses Diagnosis Essential hypertension- Primary Unspecified essential hypertension Arthralgia, unspecified joint Myalgia Unspecified myalgia and myositis XENA (generalized anxiety disorder) Generalized anxiety disorder Abscess Cellulitis and abscess of unspecified site documented in this encounter Discontinued Medications Medication Sig Discontinue Reason Start Date End Da te fluticasone propionate (FLONASE) 50 mcg/actuation nasal spray SHAKE LIQUID AND USE 1 SPRAY IN EACH NOSTRIL DAILY NEEDED FOR NASAL CONGESTION Reorder 03/26/2021 09/06/2022 LORazepam (ATIVAN) 0.5 mg tabletIndications:Psyc hophysiological insomnia TAKE 1 TABLET(0.5 MG) BY MOUTH EVERY NIGHT NEEDED FOR INSOMNIA Reorder 07/13/2022 09/06/2022 documented as of this encounter Care Teams Streetcar Dispatcher Relationship Specialty Start Date End Date Jeff Guzman PA [address] [place] [address] PCP - General Family Medicine 06/21/22 02/17/23 Angeles Hernandez MD [address] [place] [address] Referring Physician Gynecology 07/21/21 documented as of this encounter
--- OUTSIDE RECORDS SUMMARY | 2024-09-03 19:36 | XMS_ITS | Encounter Summary ---
Author Organization [facility] Healthcare Address [address] [place] [address] Care Team Providers Care Compound Coating Machine Offbearer Name Role Phone Angeles Hernandez MD Unavailable [phone] Ramonita Crawford NP Primary Care Provider [phone] Reason for Visit * Auth/Cert (Routine) Specialty Diagnoses / Procedures Referred By Contac t Referred To Contact Diagnoses Right upper quadrant pain Nausea Abnormal findings on dx imaging of prt digestive tract Right upper quadrant pain [R10.11] Nausea [R11.0] Abnormal findings on dx imaging of prt digestive tract [R93.3] Procedures ERCP; Admit to [facility] Referral ID Status Reason Start Date Expiration Date Visits Re quested Visits Authorized [id number] 1 1 Encounter Details Date Type Department Care Team (Late st Contact Info) Description 05/11/2023 2:22 PM CDT Anesthesia Event [facility] [address] [place] [id number] Bob Saenz MD [address] [place] [id number] Dominic Piper MD [facility] [place] [address] Anesthesia Record Procedure Summary Procedure Name Responsible Anesthesiologist Anesthesia Start Time Anesthesia Stop Time ENDO ENDOSCOPIC RETROGRADE CHOLANGIOPANCREATOGRAPHY WITH REMOVAL FOREIGN BODY/STENT Bob Saenz MD 05/11/23 1422 05/11/23 1441 Events Date Time Event Comment 05/11/2023 1418 1422 In Room 1422 An Start 1422 An Start Data 1425 Patient Positioned Laterally 1425 Bite Block Placed 1425 An Induction The patient was reevaluated immediately before moderate or deep sedation use and before anesthesia induction. 1427 Anesthesia Ready 1429 Proc Start 1433 Proc Fin 1435 Out of Room 1436 an stop data 1441 Handoff to RN I completed my handoff [...] the time of handoff: No value filed. 1441 An Stop Meds Name Total lidocaine (cardiac) syringe 2 % 3 mL propofol 130.62 mg * Agents Name O2 * Blood No blood administrations on file. Lines, Drains, and Airways Type Details Placement Removal Peripheral IV Placement Date: 04/22 04/13; Placement Time: 908; Catheter Size: 20 G; Orientation: Posterior, Right; Location: Hand; Site Prep: Chlorhexidine; Insertion Attempts: 1; Patient Tolerance: Anxious; Removal Date: 05/11/23; Removal Time: 1755; Removal Reason: Discharge 05/09/23908 by Aleja Fong RN 05/11/231755 by Mercy Langford RN documented in this encounter Social History Tobacco [...] often do you attend chur ch or cheondoism services? Never 05/10/2023 Do you belong to [...] you have a drink containing alcohol? Never 05/09/2023 Q2: How many drinks containi ng alcohol do you have on a typical day when you are drinking? Patient does not drink Q3: How often do you have si x or more drinks on one occasion? Never 05/09/2023 Overall Financial Resource Strain (CARDIA) Answe r [...] place to sleep or slept in a half-way (including now)? 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 Gender Identity Female 03/27/2020 5:01 PM CDT Sexual Orientation Lesbian 03/27/2020 5: 01 PM CDT documented as of this encounter OR Notes * Anesthesia Postprocedure Evaluation - Bob Saenz MD - 05/11/2023 3:29 PM CDT Patient: Chrissy Kilgore Procedure Summary Date: 05/11/23 Room / Location: [facility] Anesthesia Start: 1422 Anesthesia Stop: 1441 Procedures: ENDO ENDOSCOPIC RETROGRADE CHOLANGIOPANCREATOGRAPHY WITH REMOVAL FOREIGN BODY/STENT ENDO ADD ON ENDOSCOPIC RETROGRADE CHOLANGIOPANCREATOGRAPHY WITH REMOVAL FOREIGN BODY/STENT Diagnosis: Right upper quadrant pain (Right upper quadrant pain [R10.11]) Providers: Jordan Duff MD Responsible Provider: Bob Saenz MD Anesthesia Type: general TIVA ASA Status: 3 Anesthesia Type: general TIVA Last vitals BP 149/96 Pulse 67 Temp 36.5 ??C (97.7 ??F) (Tympanic) Resp 15 SpO2 99% Anesthesia Post Evaluation Patient location: GI recovery area. 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 * Anesthesia Preprocedure Evaluation - Dominic Piper MD - 05/11/2023 2:14 PM CDT Images from the original note were not included. Anesthesia Evaluation Chrissy Kilgore is a 52 y.o. female Procedure(s): ERCP REMOVE/CHANGE STENT Pre-Op Diagnosis Codes: * Right upper quadrant pain [R10.11] HISTORY Past Medical History Neurological + Psychiatric history - anxiety Pertinent negatives: CVA/stroke (Patient denies) Cardiovascular + Hypertension + CHF (Resolved) Comments: 2021: LA is normal. Normal RV cavity size. [...] stress induced or reversible form of cardiomyopathy. Respiratory + Asthma Gastrointestinal + GERD Renal / + Nephrolithiasis Functional Capacity Functional capacity: 4-6 METs Review of Systems Pertinent negatives: SOB and chest pain Patient Active Problem List Diagnosis Visual disturbance Age-related nuclear cataract of right eye PCO (posterior capsular opacification), left Epiretinal membrane (ERM) of both eyes Vitreous syneresis of both eyes COVID-19 Hypercholesteremia Essential hypertension Atypical lobular hyperplasia (ALH) of left breast Family history of breast cancer Breast cancer screening, high risk patient Encounter for screening mammogram for breast cancer Family history of pancreatic cancer Snoring Abnormal leg movement Fatigue Psychophysiological insomnia XENA (generalized anxiety disorder) Nonsmoker Overweight Primary osteoarthritis of right knee Adjustment disorder with mixed anxiety and depressed mood CVA (cerebral vascular accident) (HCC) Encephalopathy Chronic right upper quadrant pain Right upper quadrant pain Opioid overdose (HCC) S/P ERCP Bilious vomiting with nausea Past Medical History: Diagnosis Date Arthritis Asthma Brain concussion [id number] Cardiomyopathy (HCC) Cataract Cholelithiasis Depression [id number] Epiretinal membrane (ERM), bilateral GERD (gastroesophageal reflux disease) Hypercholesteremia Hypertension Irritable bowel syndrome Kidney stone 08/22/2000 Menstrual problem 08/22/2000 Migraines 08/22/2000 Peptic ulceration 0101?? 1 Past Surgical History: Procedure Laterality Date ABDOMINAL SURGERY Bile duct blockage APPENDECTOMY BREAST BIOPSY neg bx BREAST SURGERY CARDIAC DEFIBRILLATOR PLACEMENT 03/02/2022 CATARACT EXTRACTION CHOLECYSTECTOMY COLONOSCOPY DILATION AND CURETTAGE OF UTERUS 07/2012 benign polyp OOPHORECTOMY Left cyst OVARY SURGERY SMALL INTESTINE SURGERY SBO OB History 3 Para 2 Term 2 AB Living SAB IAB Ectopic Multiple Live Births Allergies Allergen Reactions Penicillins Hives and Anaphylaxis Anaphylaxis Drug [Sulfamethoxazole-Trimethoprim] Itching and Swelling Facial swelling & widespread itching Latex Hives and Urticaria Tamoxifen Hives Med List Status: Nurse Complete Set By: Deedee Steel RN at 05/10/2023 5:27 PM Taking? Last Dose Start Date End Date Provider albuterol (PROAIR DIGIHALER) 90 mcg/actuation inhaler -- 08/06/22 -- Jose Luis Barclay MD Inhale 2 puffs every 6 (six) hours as needed for wheezing amitriptyline (ELAVIL) 10 mg tablet -- 04/05/23 -- Jimbo Packer MD carvediloL (COREG) 3.125 mg tablet -- 04/22/23 -- Jimbo Packer MD cetirizine (ZyrTEC) 10 mg tablet -- 05/13/22 -- Brijesh Lynch MD TAKE 1 TABLET BY MOUTH DAILY clotrimazole 1 % cream -- 04/05/23 -- Jimbo Packer MD docusate sodium (COLACE) 100 mg capsule -- 11/29/22 -- Jose Luis Barclay MD TAKE 1 CAPSULE BY MOUTH TWICE DAILY Entresto 24-26 mg tablet -- 12/15/22 -- Jose Luis Barclay MD TAKE 1 TABLET BY MOUTH EVERY 12 HOURS EPINEPHrine 0.3 mg/0.3 mL auto-injection syringe -- 01/25/22 -- Brijesh Lynch MD INJECT 0.3 ML(0.3 MG TOTAL) IN THE MUSCLE INSTRUCTED NEEDED FOR ANAPHYLAXIS; CALL 911 AFTER USE fluticasone propionate (FLONASE) 50 mcg/actuation nasal spray -- 09/06/22 -- Jeff Guzman PA Administer 2 sprays into each nostril daily levalbuterol (XOPENEX) 1.25 mg/3 mL nebulizer solution -- 08/06/22 -- Jose Luis Barclay MD Take 3 mL (1.25 mg total) by nebulization every 6 (six) hours as needed for wheezing montelukast (SINGULAIR) 10 mg tablet -- 08/27/22 -- Jose Luis Barclay MD Take 1 tablet (10 mg total) by mouth nightly mupirocin (BACTROBAN) 2 % ointment -- 04/05/23 -- Jimbo Packer MD pantoprazole DR (PROTONIX) 40 mg EC tablet -- 08/27/22 -- Jose Luis Barclay MD Take 1 tablet (40 mg total) by mouth daily rosuvastatin (CRESTOR) 5 mg tablet -- 11/25/22 -- Jose Luis Barclay MD TAKE 1 TABLET(5 MG) BY MOUTH DAILY solifenacin (VESIcare) 10 mg tablet -- 04/22/23 -- ProviderJimbo MD tiZANidine (ZANAFLEX) 4 mg tablet -- 01/14/23 -- Jose Luis Barclay MD TAKE 1 TABLET(4 MG) BY MOUTH EVERY 8 HOURS NEEDED FOR MUSCLE SPASMS traMADoL (ULTRAM) 50 mg tablet -- 12/30/22 -- Jeff Guzman PA Take 1 tablet (50 mg total) by mouth every 8 (eight) hours as needed for pain -- Current Facility-Administered Medications: [OCT Hold] acetaminophen (TYLENOL) tablet 650 mg, 650 mg, oral, Q4H PRN, 650 mg at 05/09/232242 [OCT Hold] albuterol 2.5 mg /3 mL (0.083 %) nebulizer solution 2.5 mg, 2.5 mg, nebulization, Q4H PRN (RT) [OCT Hold] albuterol HFA (PROVENTIL HFA,VENTOLIN HFA,PROAIR HFA) 90 mcg/actuation inhaler 2 puff, 2puff, inhalation, Q6H PRN (RT) [MAR Hold] aluminum-magnesium hydroxide-simethicone (MAALOX) 40-40-4 mg/mL oral suspension 30 mL, 30 mL, oral, Q4H PRN [MAR Hold] amitriptyline (ELAVIL) tablet 10 mg, 10 mg, oral, Nightly, 10 mg at 05/10/232002 [OCT Hold] carvediloL (COREG) tablet 3.125 mg, 3.125 mg, oral, BID with meals (bkfst, dinner), 3.125 mg at 05/11/23909 [MAR Hold] cetirizine (ZyrTEC) tablet 10 mg, 10 mg, oral, Daily, 10 mg at 05/11/23909 [MAR Hold] docusate sodium (COLACE) capsule 100 mg, 100 mg, oral, BID, 100 mg at 05/11/23909 [MAR Hold] famotidine (PEPCID) tablet 20 mg, 20 mg, oral, Q12H PRN, 20 mg at 05/09/23 1716 [MAR Hold] fluticasone propionate (FLONASE) 50 mcg/actuation nasal spray 2 spray, 2 spray, each nostril, Daily, 2 spray at 05/11/23 0911 [OCT Hold] HYDROmorphone (DILAUDID) injection 1 mg, 1 mg, intravenous, Q3H PRN, 1 mg at 05/10/23 1105 ioversoL (OPTIRAY 350) injection 0.01-500 mL, 0.01-500 mL, intraductal, Once in imaging [OCT Hold] ketorolac (TORADOL) 15 mg/mL injection 15 mg, 15 mg, intravenous, Q6H PRN, 15 mg at 05/11/23 0910 [MAR Hold] LORazepam (ATIVAN) injection 1 mg, 1 mg, intravenous, Q6H PRN, 1 mg at 05/09/23 2244 [OCT Hold] montelukast (SINGULAIR) tablet 10 mg, 10 mg, oral, Nightly, 10 mg at 05/10/232002 [OCT Hold] ondansetron (ZOFRAN) injection 4 mg, 4 mg, intravenous, Q4H PRN, 4 mg at 05/10/23 1155 [OCT Hold] oxyBUTYnin XL (DITROPAN-XL) extended release tablet 5 mg, 5 mg, oral, Daily, 5 mg at 05/11/23909 [OCT Hold] pantoprazole DR (PROTONIX) extended release tablet 40 mg, 40 mg, oral, Daily, 40 mg at 05/11/23 0910 [OCT Hold] prochlorperazine (COMPAZINE) injection 5 mg, 5 mg, intravenous, Q6H PRN, 5 mg at 05/11/23 0033 [OCT Hold] rosuvastatin (CRESTOR) tablet 5 mg, 5 mg, oral, Daily, 5 mg at 05/11/23 0910 [MAR Hold] sacubitriL-valsartan (ENTRESTO) 24-26 mg tablet 1 tablet, 1 tablet, oral, Q12H, 1 tabletat 05/11/23 0438 sodium chloride 0.9% infusion, 125 mL/hr, intravenous, Continuous, Last Rate: 125 mL/hr at 534, 125 mL/hr at 05/11/23 0534 sodium chloride 0.9% infusion, 30 mL/hr, intravenous, Continuous, Last Rate: 30 mL/hr at 05/11/23 1339, 30 mL/hr at 05/11/23 1339 [MAR Hold] tiZANidine (ZANAFLEX) tablet 4 mg, 4 mg, oral, TID PRN Social History Tobacco Use Smoking Status Never Smokeless Tobacco Never Alcohol Use: Not At Risk (05/09/2023) AUDIT-C Frequency of Alcohol Consumption: Never Average Number of Drinks: Patient does not drink Frequency of Binge Drinking: Never Substance and Sexual Activity Drug Use Never Family History Problem Relation Age of Onset Breast cancer Mother 47 Cancer Mother No Known Problems Daughter No Known Problems Daughter Asthma Daughter Depression Daughter Depression Daughter Miscarriages / Stillbirths Daughter Alzheimer's disease Maternal Grandmother Stroke Maternal Grandmother Cancer Father COPD Father No Known Problems Brother No Known Problems Brother Allergy (severe) Brother Alzheimer's disease Maternal Grandfather Stroke Maternal Grandfather Pancreatic cancer Mother's Brother 80 Diabetes Neg Hx Glaucoma Neg Hx Retinal detachment Neg Hx Macular degeneration Neg Hx Thyroid disease Neg Hx Ovarian cancer Neg Hx Thyroid cancer Neg Hx Vitals: 05/10/23 2341 05/11/23 0905 05/11/23 1332 BP: 121/72 138/80 (!) 173/96 Pulse: 76 87 66 Resp: 16 16 11 Temp: 37.2 ??C (98.9 ??F) 36.8 ??C (98.2 ??F) 36.5 ??C (97.7 ??F) SpO2: 98% 96% 99% PT: No results found for requested labs [...] for requested labs within last 30 days. DOS Physical Exam Medical history, medications, and allergies reviewed. Attestation: With today's edits, I endorse the findings of the anesthesia pre-evaluation assessment dated: 05/09/2023. Airway Exam: Mallampati: I Cervical ROM: FROM TM distance: normal Cardiovascular Exam: Rate: regular Rhythm: regular Pulmonary Exam: LCTA, bilat EENT Exam: trachea midline Dental Exam: Edentulous Current state: Patient's current state is cooperative. Anesthesia Plan ASA 3 My patient is approved for the Anesthesia Controlled Medication protocol when under care of a BOAT PILOT Planned anesthesia: General TIVA Induction: Induction: intravenous. Postoperative Plan: No postoperative mechanical ventilation intended. Informed Consent: Discussed plan with attending. Anesthesia plan and risks discussed with patient. Plan and Consent Comments: Consented for general anesthesia as backup plan with LMA/Endotracheal tube. Consent and Attending signature: I and/or my [...] MAR Action Action Date Dose Rate Site lidocaine (cardiac) (XYLOCAINE) preservative free injection intravenous, As needed, Starting on Tue05/11/23 at 1425, Anesthesia Intra-op, Indications: Ventricular ArrhythmiasIndications:Ventricular Arrhythmias Given 05/11/2023 2:25 PM CDT 3 mL propofoL (DIPRIVAN) 10 mg/mL IV intravenous, As needed, Starting on Tue05/11/23 at 1425, Anesthesia Intra-op Given 05/11/2023 2:29 PM CDT 20 mg New Bag 05/11/2023 2:26 PM CDT 100 mcg/kg/min 51.96 mL/ hr Given 05/11/2023 2:25 PM CDT 50 mg documented in this encounter Care Teams Compound Coating Machine Offbearer Relationship Specialty Start Date End Date Ramonita Crawford NP [address] [address] PCP - General Family Medicine 02/18/23 Angeles Hernandez MD [address] [address] Referring Physician Gynecology 07/21/21 documented as of this encounter
--- OUTSIDE RECORDS SUMMARY | 2024-09-03 19:36 | XMS_ITS | Encounter Summary ---
Author Organization [facility] Address [address] [place] [address] Phone Care Team Providers Care Ocean Forwarder Name Role Phone Angeles Hernandez MD Unavailable [phone] Ramonita Crawford NP Primary Care Provider [phone] Reason for Visit * Diagnostic Imaging (Routine) - Closed Specialty Diagnoses / Procedures Referred By Sharlene t Referred To Contact Diagnoses Vitreous syneresis of both eyes Procedures IOL Biometry - OU - Both Eyes Mary Ann Webster MD [address] [place] [address] Phone: tel: fax: [facility] (All Locations) Referral ID Status Reason Start Date Expiration Date Visits Re quested Visits Authorized [id number] Closed 03/16/2023 04/14/2024 1 1 Encounter Details Date Type Department Care Team (Late st Contact Info) Description 05/20/2023 8:50 AM CDT Imaging Exam [facility] Ophthalmology [facility] [address] [place] [phone] Vitreous syneresis of both eyes Social History Tobacco Use [...] often do you attend chur ch or zoroastrianism services? Never 05/10/2023 Do you belong to any clubs o r organizations such as orthodox groups, unions, fraternal or athletic groups, or [...] health care facility (including now)? 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 Gender Identity Female 03/27/2020 5:01 PM CDT Sexual Orientation Lesbian 03/27/2020 5: 01 PM CDT documented as of this encounter Plan of Treatment Not on file documented as of this encounter Procedures Procedure Name Priority Date/Time Associated Diagnosis Comments IOL BIOMETRY - OU - BOTH EYES Routine 05/20/2023 8:33 AM CDT Vitreous syneresis of both eyes documented in this encounter Results * IOL Biometry - OU - Both Eyes (05/20/2023 8:33 AM CDT) AC IOL (OS) 5.05 mm CONTINUUM AC IOL (OD) 3.61 mm CONTINUUM White to White (OS) 12.4 mm CONTINUUM White to White (OD) 12.4 mm CONTINUUM A LENGTH (OS) 24.46 mm CONTINUUM A LENGTH (OD) 24.70 mm CONTINUUM Anatomical Region Laterality Modality Head Ophthalmic Axial Measurements Narrative 05/20/2023 9:26 AM CDT Right Eye Axial length was 24.70 mm. White to white was 12.4 mm. AC Depth was 3.61 mm. Left Eye Axial length was 24.46 mm. White to white was 12.4 mm. AC Depth was 5.05 mm. Notes Adequate for surgical planning us Mary Ann Webster MD OPHTH ULTRASOUND Edited Resul t - Final documented in this encounter Visit Diagnoses Diagnosis Vitreous syneresis of both eyes documented in this encounter Care Teams Ocean Forwarder Relationship Specialty Start Date End Date Ramonita Crawford NP [address] [address] PCP - General Family Medicine 02/18/23 Angeles Hernandez MD [address] [place] [address] Referring Physician Gynecology 07/21/21 documented as of this encounter
--- OUTSIDE RECORDS SUMMARY | 2024-09-03 19:36 | XMS_ITS | Encounter Summary ---
Author Organization [facility] Healthcare Address [address] [place] [address] Care Team Providers Care Railroad Signal And Switch Operator Name Role Phone Angeles Hernandez MD Unavailable [phone] Jeff Guzman Primary Care Provider [phone] Reason for Referral * MRI/CAT/PET Scan (Routine) - Closed Specialty Diagnoses / Procedures Referred By Sharlene angulo Referred To Contact Radiology Diagnoses Family history of breast cancer Procedures MRI Breast Bilateral W WO Contrast Rachel Kay MD [address] [facility] [place] [address] Phone: tel: fax: [address] [address] Referral ID Status Reason Start Date Expiration Date Visits Re quested Visits Authorized [id number] Closed 05/18/2022 06/17/2023 1 1 ER GUIDE Reason for Visit * MRI/CAT/PET Scan (Routine) - Closed Specialty Diagnoses / Procedures Referred By Contac t Referred To Contact Radiology Diagnoses Family history of breast cancer Procedures MRI Breast Bilateral W WO Contrast Rachel Kay MD [address] [facility] [place] [address] Phone: tel: fax: [address] [address] Referral ID Status Reason Start Date Expiration Date Visits Re quested Visits Authorized [id number] Closed 05/18/2022 06/17/2023 1 1 Encounter Details Date Type Department Care Team (Latest Contact Info) Description 10/25/2022 11:32 AM DRIVER GUIDE - 10/25/2022 11:59 PM DRIVER GUIDE Hospital Encounter [address] [address] Family history of breast cancer Discharge Disposition: Discharge to home or self [...] you are drinking? Patient does not drink 3 Q3: How often do you have si x or more drinks on one occasion? Never 09/06/2022 PHQ-2 Answer Date Recorded PHQ-2 Total Score (If total score is 3 or more points, staff should administer the PHQ-9) 5 04/30/2022 Comments No Sex and Gender Information Value Date Recorded Sex Assigned at Not on file 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 DRIVER GUIDE Gender Identity Female 03/27/2020 5:01 PM CDT Sexual Orientation Lesbian 03/27/2020 5: 01 PM CDT documented as of this encounter Medications at Time of Discharge albuterol (PROAIR DIGIHALER) 90 mcg/actuation inhaler Inhale 2 puffs every 6 (six) hours as needed for wheezing 1 each 2 2 cetirizine (ZyrTEC) 10 mg tabletIndications:S easonal allergic rhinitis due to pollen TAKE 1 TABLET BY MOUTH DAILY 30 tablet 50 2 EPINEPHrine 0.3 mg/0.3 mL auto-injection syringeIndications: Moderate persistent asthma with exacerbation INJECT 0.3 ML(0.3 MG TOTAL) IN THE MUSCLE INSTRUCTED NEEDED FOR ANAPHYLAXIS; CALL 911 AFTER USE 2 each 3 2 fluticasone propionate (FLONASE) 50 mcg/actuation nasal spray Administer 2 sprays into each nostril daily 1 each 3 3 levalbuterol (XOPENEX) 1.25 mg/3 mL nebulizer solution Take 3 mL (1.25 mg total) by nebulization every 6 (six) hours as needed for wheezing 72 mL 2 2 montelukast (SINGULAIR) 10 mg tabletIndications:S easonal allergic rhinitis due to pollen Take 1 tablet (10 mg total) by mouth nightly 90 tablet [address] (PROTONIX) 40 mg EC tabletIndications:G astroesophageal reflux disease with esophagitis without hemorrhage Take 1 tablet (40 mg total) by mouth daily 90 tablet 1 3 albuterol 2.5 mg /3 mL (0.083 %) nebulizer solution Take 3 mL (2.5 mg total) by nebulization every 6 (six) hours as needed for shortness of breath 270 mL 2 05/09/20 23 docusate sodium (COLACE) 100 mg capsuleIndications: Drug-induced constipation Take 1 capsule (100 mg total) by mouth 2 (two) times a day 60 capsule 2 2 11/30/19 23 Entresto 24-26 mg tablet Take 1 tablet by mouth every 12 (twelve) hours 60 tablet 1 3 12/16/19 23 HYDROcodone-acetami nophen (NORCO) 5-325 mg per tabletIndications:A rthralgia of both hands Take 1 tablet by mouth 2 (two) times a day as needed for pain 60 tablet 2 12/29/19 23 levoFLOXacin (LEVAQUIN) 750 mg tablet 2 12/29/19 23 LORazepam (ATIVAN) 0.5 mg tabletIndications:G AD (generalized anxiety disorder) TAKE 1 TABLET(0.5 MG) BY MOUTH EVERY NIGHT 30 tablet 3 11/13/19 23 metoprolol tartrate (LOPRESSOR) 25 mg immediate release tabletIndications:E ssential hypertension Take 0.5 tablets (12.5 mg total) by mouth 2 (two) times a day 90 tablet 3 2 05/09/20 23 ondansetron ODT (ZOFRAN-ODT) 4 mg disintegrating tablet DISSOLVE 1 TABLET ON THE TONGUE EVERY 6 HOURS NEEDED FOR NAUSEA OR VOMITING 2 12/29/19 23 rosuvastatin (CRESTOR) 5 mg tabletIndications:H ypercholesteremia TAKE 1 TABLET(5 MG) BY MOUTH DAILY 30 tablet 1 3 11/26/19 23 tiZANidine (ZANAFLEX) 4 mg tabletIndications:M uscle pain TAKE 1 TABLET(4 MG) BY MOUTH EVERY 8 HOURS NEEDED FOR MUSCLE SPASMS 90 tablet 3 11/18/19 23 traMADoL (ULTRAM) 50 mg tabletIndications:N popeye pain TAKE 1 TABLET(50 MG) BY MOUTH EVERY 8 HOURS NEEDED FOR PAIN 90 tablet 3 12/31/19 23 documented as of this encounter Discharge Disposition Disposition Code Departure Means Destination Discharge to home or self care documented in this encounter Plan of Treatment Not on file documented as of this encounter Procedures Procedure Name Priority Date/Time Associated Diagnosis Comments MRI BREAST BILATERAL W WO CONTRAST Schedule Routine, Read Routine (OP Routine) 10/25/2022 12:53 PM DRIVER GUIDE Family history of breast cancer documented in this encounter Results * MRI Breast Bilateral W WO Contrast (10/25/2022 12:53 PM DRIVER GUIDE) Anatomical Region Laterality Modality Breast Bilateral Magnetic Resonan ce 10/25/2022 12:2 9 PM DRIVER GUIDE Impressions 10/25/2022 12:35 PM DRIVER GUIDE 1. ?? No MRI evidence of malignancy. Given the patient's elevated estimated lifetime risk of breast cancer, annual screening mammography and annual screening breast MRI is recommended. ASSESSMENT: BIRADS: 2 - BENIGN. ?? THIS IS AN ELECTRONICALLY VERIFIED FINAL REPORT 10/25/2022 12:35 PM - Electronically signed by ??Jules Reeves M.D. RL: HERMELINDA D: ??10/25/2022 12:35 PM T: ??10/25/2022 12:35 PM Report ID: [id number] Reading Location: ??[facility] Narrative 10/25/2022 12:35 PM DRIVER GUIDE EXAM DESCRIPTION: ?? MRI BREAST BILATERAL W WO CONTRAST REASON FOR STUDY: ?? 52-year-old woman with elevated calculated lifetime risk of breast cancer (33%). ??Screening. COMPARISON: Breast MRI dated 10/06/2021. ??Screening mammogram dated 05/18/2022. TECHNIQUE: Multiplanar and multisequence MRI of both breasts was performed before and after the uneventful intravenous administration of ??80 ??mL of ?? Dotarem ??in a ??right antecubital ??IV catheter according to standard breast imaging protocol on a dedicated breast coil. The images were reviewed on an [employer] work station and underwent CAD analysis. FINDINGS: BACKGROUND ENHANCEMENT: Minimal. FIBROGLANDULAR TISSUE: Scattered fibroglandular tissue. RIGHT BREAST: There are no new suspicious masses. ??A few round and oval masses with circumscribed margins and no suspicious postcontrast enhancement are stable. ??There is no suspicious non-mass enhancement. There is no abnormal skin, nipple, or pectoralis muscle enhancement. There is no right axillary or internal mammary lymphadenopathy. LEFT BREAST: There are no new suspicious masses. ??A few round and oval masses with circumscribed margins and no suspicious postcontrast enhancement are stable. ??There is no suspicious non-mass enhancement. There is no abnormal skin, nipple, or pectoralis muscle enhancement. There is no left axillary or internal mammary lymphadenopathy. The visualized portions of the mediastinum and upper abdomen are normal in appearance on limited evaluation. Rachel Kay MD IM MRI PROCEDURES Final Re sult documented in this encounter Visit Diagnoses Diagnosis Family history of breast cancer Family history of malignant neoplasm of breast documented in this encounter Administered Medications Inactive Administered Medications - up to 3 most recent administrations Medication Order MAR Action Action Date Dose Rate Site gadoterate meglumine injection 20 mL 20 mL, intravenous, Once in imaging, contrast, Starting on 10/25/22 at 1153, For 1 dose Contrast Given 10/25/2022 12:00 PM DRIVER GUIDE 18 mL Right Antecubital documented in this encounter Orders Medications Ordered That Sarabjit ht Not Have Been Administered Count Last Ordered Date First Ordered Date gadoterate meglumine injection 20 mL 1 01/2023 documented in this encounter Care Teams Railroad Signal And Switch Operator Relationship Specialty Start Date End Date Jeff Guzman PA [address] [facility] [address] [place] [address] PCP - General Family Medicine 06/21/22 02/17/23 Angeles Hernandez MD [address] [address] Referring Physician Gynecology 07/21/21 documented as of this encounter
--- OUTSIDE RECORDS SUMMARY | 2024-09-03 19:36 | XMS_ITS | Encounter Summary ---
Author Organization [facility] Healthcare Address [address] [place] [address] Care Team Providers Care Section Gang Worker Name Role Phone Angeles Hernandez MD Unavailable [phone] Ramonita Crawford NP Primary Care Provider [phone] Reason for Referral * Diagnostic Imaging (Routine) - Closed Specialty Diagnoses / Procedures Referred By Sharlene angulo Referred To Contact Diagnoses Upper abdominal pain Procedures FL ERCP Jordan Duff MD [address] [facility] [address] [place] [address] Phone: tel: fax: [facility] [address] [place] [address] Referral ID Status Reason Start Date Expiration Date Visits Re quested Visits Authorized [id number] Closed 05/09/2023 2024 1 1 Reason for Visit * Auth/Cert (Routine) Specialty Diagnoses / Procedures Referred By Sharlene angulo Referred To Contact Diagnoses Right upper quadrant pain Nausea Abnormal findings on dx imaging of prt digestive tract Right upper quadrant pain [R10.11] Nausea [R11.0] Abnormal findings on dx imaging of prt digestive tract [R93.3] Procedures ERCP; Admit to [facility] Referral ID Status Reason Start Date Expiration Date Visits Re quested Visits Authorized [id number] 1 1 Encounter Details Date Type Department Care Team (Latest Contact Info) Description 05/09/2023 7:00 AM CDT - 05/09/2023 11:59 PM CDT Hospital Encounter [facility] [address] [place] [address] Upper abdominal pain Discharge Disposition: Discharge to home or self [...] often do you attend chur ch or zoroastrian services? 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 Gender Identity Female 03/27/2020 5:01 PM CDT Sexual Orientation Lesbian 03/27/2020 5: 01 PM CDT documented as of this encounter Medications at Time of Discharge albuterol (PROAIR DIGIHALER) 90 mcg/actuation inhaler Inhale 2 puffs every 6 (six) hours as needed for wheezing 1 each 2 08/06/2022 amitriptyline (ELAVIL) 10 mg tabletIndications :Irritable Bowel Syndrome Take 1 tablet (10 mg total) by mouth nightly at bedtime 04/05/2023 carvediloL (COREG) 3.125 mg tabletIndications :hypertension Take 1 tablet (3.125 mg total) by mouth 2 (two) times a day with meals 04/22/2023 cetirizine (ZyrTEC) 10 mg tabletIndications :Seasonal allergic rhinitis due to pollen TAKE 1 TABLET BY MOUTH DAILY 30 tablet 50 05/13/2022 clotrimazole 1 % cream as needed 04/05/2023 docusate sodium (COLACE) 100 mg capsuleIndication s:Drug-induced constipation TAKE 1 CAPSULE BY MOUTH TWICE DAILY 60 capsule 2 11/29/2022 Entresto 24-26 mg tablet TAKE 1 TABLET BY MOUTH EVERY 12 HOURS 60 tablet 1 12/15/2022 EPINEPHrine 0.3 mg/0.3 mL auto-injection syringeIndication s:Moderate [...] mL 2 08/06/2022 LORazepam (ATIVAN) 0.5 mg tabletIndications :XENA (generalized anxiety disorder) Take 2 tablets (1 mg total) by mouth every 12 (twelve) hours as needed (Abdominal spasms) 14 tablet 05/11/2023 montelukast (SINGULAIR) 10 mg tabletIndications :Seasonal allergic rhinitis due to pollen Take 1 tablet (10 mg total) by mouth nightly 90 tablet 1 08/27/2022 mupirocin (BACTROBAN) 2 % ointment Apply 1 Application topically as needed 04/05/[address] (PROTONIX) 40 mg EC tabletIndications :Gastroesophageal reflux disease with esophagitis without hemorrhage Take 1 tablet (40 mg total) by mouth daily 90 tablet 1 08/27/2022 rosuvastatin (CRESTOR) 5 mg tabletIndications :Hypercholesterem ia TAKE 1 TABLET(5 MG) BY MOUTH DAILY 30 tablet 1 11/25/2022 solifenacin (VESIcare) 10 mg tabletIndications :Urinary Urge Incontinence Take 1 tablet (10 mg total) by mouth every morning 04/22/2023 tiZANidine (ZANAFLEX) 4 mg tabletIndications :Muscle pain TAKE 1 TABLET(4 MG) BY MOUTH EVERY 8 HOURS NEEDED FOR MUSCLE SPASMS 90 tablet 01/14/2023 HYDROcodone-aceta minophen (NORCO) 5-325 mg per tabletIndications :Pain Take 1 tablet by mouth every 6 (six) hours as needed for pain 20 tablet 05/11/2023 LORazepam (ATIVAN) 0.5 mg tabletIndications :XENA (generalized anxiety disorder) TAKE 1 TABLET(0.5 MG) BY MOUTH EVERY NIGHT 30 tablet 1 01/28/2023 3 traMADoL (ULTRAM) 50 mg tabletIndications :Neck pain Take 1 tablet (50 mg total) by mouth every 8 (eight) hours as needed for pain 90 tablet 12/30/2022 3 documented as of this encounter Discharge Disposition Disposition Code Departure Means Destination Discharge to home or self care documented in this encounter Plan of Treatment Not on file documented as of this encounter Procedures Procedure Name Priority Date/Time Associated Diagnosis Comments ERCP Schedule Routine, Read Routine (OP Routine) 05/09/2023 10:20 AM CDT Upper abdominal pain documented in this encounter Results * [place] ERCP (05/09/2023 10:20 AM CDT) Narrative [facility] - 05/09/2023 10:21 AM CDT The images from this study are not interpreted by Radiology. ??Please refer to the physician's procedure / OR operative note. Jordan Duff MD IMG FLUOROSCOPY PROCEDURES Final Result [facility] documented in this encounter Visit Diagnoses Diagnosis Upper abdominal pain documented in this encounter Administered Medications Inactive Administered Medications - up to 3 most recent administrations Medication Order MAR Action Action Date Dose Rate Site ioversoL (OPTIRAY 350) injection 0.01-500 mL 0.01-500 mL, intraductal, Once in imaging, contrast, Starting on 05/09/23 at 0941, For 1 dose Contrast Given 05/09/2023 10:07 AM CDT 6 mL documented in this encounter Orders Medications Ordered That Sarabjit ht Not Have Been Administered Count Last Ordered Date First Ordered Date ioversoL (OPTIRAY 350) injec tion 0.01-500 mL 1 05/09/2023 documented in this encounter Care Teams Section Gang Worker Relationship Specialty Start Date End Date Ramonita Crawford NP [address] [address] PCP - General Family Medicine 02/18/23 Angeles Henrandez MD [address] [address] Referring Physician Gynecology 07/21/21 documented as of this encounter
--- OUTSIDE RECORDS SUMMARY | 2024-09-03 19:36 | XMS_ITS | Encounter Summary ---
Author Organization [facility] Address [address] [place] [address] Phone Care Team Providers Care Director Of Marketing And Promotions Name Role Phone Angeles Hernandez MD Unavailable [phone] Ramonita Crawford NP Primary Care Provider [phone] Reason for Visit * Diagnostic Imaging (Routine) - Closed Specialty Diagnoses / Procedures Referred By Contac t Referred To Contact Diagnoses Vitreous syneresis of both eyes Procedures Miller Visual Field - OU - Both Eyes Mary Ann Webster MD [address] [place] [address] Phone: tel: fax: [facility] (All Locations) Referral ID Status Reason Start Date Expiration Date Visits Re quested Visits Authorized [id number] Closed 03/16/2023 04/14/2024 1 1 Encounter Details Date Type Department Care Team (Late st Contact Info) Description 05/20/2023 8:00 AM CDT Imaging Exam [facility] Ophthalmology [facility] [address] [place] [address] Vitreous syneresis of both eyes Social History [...] any clubs o r organizations such as islam groups, unions, fraternal or athletic groups, or [...] on file 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 Gender Identity Female 03/27/2020 5:01 PM CDT Sexual Orientation Lesbian 03/27/2020 5: 01 PM CDT documented as of this encounter Plan of Treatment Not on file documented as of this encounter Procedures Procedure Name Priority Date/Time Associated Diagnosis Comments MILLER VISUAL FIELD - OU - BOTH EYES Routine 05/20/2023 8:32 AM CDT Vitreous syneresis of both eyes documented in this encounter Results * Miller Visual Field - OU - Both Eyes (05/20/2023 8:32 AM CDT) Pattern Deviation OS 3.76 dB CONTINUUM Pattern Deviation OD 1.78 dB CONTINUUM Mean Deviation OS -6.11 dB CONTINUUM Mean Deviation OD -2.67 dB CONTINUUM Anatomical Region Laterality Modality Head Other Narrative 05/20/2023 9:26 AM CDT Right Eye Fixation was good. Cooperation was good. Reliability was good. Mean Deviation was -2.67 dB. Pattern Deviation was 1.78 dB. Left Eye Fixation was good. Cooperation was good. Reliability was good. Mean Deviation was -6.11 dB. Pattern Deviation was 3.76 dB. Notes Full OU us Mary Ann Webster MD OPHTH VISUAL FIELD Edited Res ult - Final documented in this encounter Visit Diagnoses Diagnosis Vitreous syneresis of both eyes documented in this encounter Care Teams Director Of Marketing And Promotions Relationship Specialty Start Date End Date Ramonita Crawford NP [address] [address] PCP - General Family Medicine 02/18/23 Angeles Hernandez MD [address] [id number] Referring Physician Gynecology 07/21/21 documented as of this encounter
--- OUTSIDE RECORDS SUMMARY | 2024-09-03 19:36 | XMS_ITS | Encounter Summary ---
Author Organization [facility] Healthcare Address [address] [place] [address] Care Team Providers Care Assistant Associate Full Professor Name Role Phone Angeles Hernandez MD Unavailable [phone] Ramonita Crawford NP Primary Care Provider [phone] Reason for Visit * Auth/Cert (Routine) Specialty Diagnoses / Procedures Referred By Contac t Referred To Contact Diagnoses Right upper quadrant pain Nausea Abnormal findings on dx imaging of prt digestive tract Right upper quadrant pain [R10.11] Nausea [R11.0] Abnormal findings on dx imaging of prt digestive tract [R93.3] Procedures ERCP; Admit to [facility] Referral ID Status Reason Start Date Expiration Date Visits Re quested Visits Authorized [id number] 1 1 Encounter Details Date Type Department Care Team (Latest Contact Info) Description 05/09/2023 8:45 AM CDT - 05/09/2023 9:30 AM CDT Surgery [facility] [address] [place] [phone] Jordan Duff MD [address] [facility] [address] [place] [address] ENDO ENDOSCOPIC RETROGRADE CHOLANGIOPANCREATOGRAPHY WITH STENT PLACEMENT Surgery Details Date/Time Status Location OR Service Patient Class Case Class Case Type Trauma Case? 05/09/2023 8:45 AM Posted [facility] ENDOSCOPY GI 09 Gastroenterology Outpatient in Bed Elective Panel 1 Procedure LRB Anes Op Region Wound Class Comments ENDO ENDOSCOPIC RETROGRADE CHOLANGIOPANCREATOGRAPHY WITH STENT PLACEMENT N/A Choice ENDO ADD ON ENDOSCOPIC RETRO GRADE CHOLANGIOPANCREATOGRAPHY WITH STENT PLACEMENT N/A Choice Surgeon Surgeon Role Service Panel Jordan Duff MD Primary Gastroenterology 1 documented in this encounter Social History [...] often do you attend chur ch or mormonism services? Never 05/10/2023 Do you belong to any clubs o r organizations such as advent groups, unions, fraternal or athletic groups, or [...] a long term (including now)? 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 Gender Identity Female 03/27/2020 5:01 PM CDT Sexual Orientation Lesbian 03/27/2020 5: 01 PM CDT documented as of this encounter Last Filed Vital Signs Vital Sign Reading Time Taken Comments Blood Pressure 143/90 05/09/2023 8:57 AM CDT Pulse 69 05/09/2023 8:57 AM CDT Temperature -13.7 ??C (7.4 ??F) 05/09/2023 8:57 AM CD T Respiratory Rate 11 05/09/2023 8:57 AM CDT Oxygen Saturation 100% 05/09/2023 8:57 AM CDT Inhaled Oxygen Concentration - - Weight 81.6 kg (180 lb) 05/09/2023 8:57 AM CDT Height 167.6 cm (5' 6 ) 05/09/2023 8:57 AM CDT Body Mass Index 30.84 05/10/2023 5:25 PM CDT documented in this encounter Discharge Summaries * Kaycee Reece MD - 05/11/2023 12:00 AM CDT DISCHARGE DIAGNOSES 1. Papillary stenosis. 2. Asthma. 3. Hypertension. 4. Gastroesophageal reflux disease. 5. Hyperlipidemia. 6. Cardiomyopathy. 7. Depression. HOSPITAL COURSE This is a 52-year-old lady who came to us with a complaint of abdominal pain. Underwent ERCP by and found papillary stenosis which was treated with biliary and pancreatic sphincterotomy and dual duct protective stenting. Post procedure patient was treated with IV fluids, IV pain medications, antispasmodic, antiemetics and also clear liquid diet. Patient had a repeat ERCP and stent removal done today. After the procedure, patient tolerated low-fat diet so we are planning to send thepatient home and continue the following medications at home. DISCHARGE MEDICATIONS Please see the medication reconciliation forms. PHYSICAL EXAMINATION General: Patient examined bedside in no acute distress. Vitals: Temperature is 99, pulse 77, respiratory rate 18, blood pressure 152/95. HEENT : Pupils reactive to light. Head normocephalic. No signs of trauma. Neck: Supple. No JVD. No thyromegaly. No lymphadenopathy. Chest: Clear clinically. Cardiovascular : S1, S2. Abdomen: Bowel sounds positive. Commercial Subcontractor: Alert, awake, oriented x3. There is no gross focal neurological deficit. Extremities: There is no pedal edema. PLAN So the plan will be to continue present medications, send the patient home and follow up with Dr. Duff's office in 6-8 weeks. Patient has been advised to follow the strict low-fat diet and to avoid alcohol and smoking. Job ID/Internal Job ID: [id number] documented in this encounter Discharge Instructions * Attachments The following attachments cannot be sent through Care Everywhere. * Low Fat Diet (Discharge Care) (Marshallese) documented in this encounter Medications at Time [...] as needed for pain 20 tablet 05/11/2023 3 documented as of this encounter Ordered Prescriptions Prescription Sig Dispense Quantity Refills Last Filled Start Date End Date LORazepam (ATIVAN) 0.5 mg tabletIndications: XENA (generalized anxiety disorder) Take 2 tablets (1 mg total) by mouth every 12 (twelve) hours as needed (Abdominal spasms) 14 tablet 05/11/2023 HYDROcodone-acetam inophen (NORCO) 5-325 mg per tabletIndications: Pain Take 1 tablet by mouth every 6 (six) hours as needed for pain 20 tablet 05/11/2023 3 documented in this encounter Discharge Disposition Disposition Code Departure Means Destination Comment s Discharge to home or self care documented in this encounter Progress Notes * Madyson Mcdonald, RD - 05/10/2023 3:43 PM CDT Initial Nutrition Assessment Reason for Assessment: Consult/Referral Encounter Date: 05/10/23 3:43 PM Nutrition Evaluation: Patient is a 52 y.o. female. Admit Dx: Right upper quadrant pain [R10.11] Nausea [R11.0] Abnormal findings on dx imaging of prt digestive tract [R93.3] Chronic right upper quadrant pain [R10.11, G89.29]. Admitted on 05/09/2023, current LOS is 0 days. Patient's intake is inadequate. Objective Past Medical History: Diagnosis Date Arthritis Asthma Brain concussion [id number] Cardiomyopathy (HCC) Cataract Cholelithiasis Depression [id number] Epiretinal membrane (ERM), bilateral GERD (gastroesophageal reflux [...] cyst OVARY SURGERY SMALL INTESTINE SURGERY SBO Anthropometrics Weight: 86.9 kg (191 lb 8 oz) Admission Weight : 81.6 kg Weight Change: 5.21 kg (11.50 lbs) IBW/kg (Calculated) : 59 kg Height: 167.6 cm (5' 6 ) Weight in (lb) to have BMI = 25: 154.6 BMI (Calculated): 30.9 Intake/Output Summary (Last 24 hours) at 05/10/2023 1543 Last data filed at 05/10/2023 1105 Gross per 24 hour Intake 1809 ml Output -- Net 1809 ml Medications and Lab Review: Scheduled Meds: amitriptyline, 10 mg, oral, Nightly carvediloL, 3.125 mg, oral, BID with meals (bkfst, dinner) cetirizine, 10 mg, oral, Daily docusate sodium, 100 mg, oral, BID fluticasone propionate, 2 spray, each nostril, Daily montelukast, 10 mg, oral, Nightly naloxone, 0.4 mg, intravenous, Once oxyBUTYnin XL, 5 mg, oral, Daily pantoprazole DR, 40 mg, oral, Daily rosuvastatin, 5 mg, oral, Daily sacubitriL-valsartan, 1 tablet, oral, Q12H Continuous Infusions: sodium chloride 0.9%, 125 mL/hr, Last Rate: 125 mL/hr (05/10/23 1501) PRN Meds: acetaminophen albuterol albuterol HFA aluminum-magnesium hydroxide-simethicone famotidine HYDROmorphone ketorolac LORazepam ondansetron prochlorperazine tiZANidine No results found for: SODIUM , POTASSIUM , BUNSER , CREATININE , PHOS , ALBUMIN , MAGNESIUM , CALCIUM , HDL , LDL , CHOLESTEROL , TRIGLYCERIDE , ALT , AST , BILIRUBIN , ALKPHOS , LIPASE No results found for: HGBA1C Nursing Assessment: Last BM Date: 05/07/23 Bowel Sounds (All Quadrants): Hypoactive Carson Scale Score: 20 Dietary Orders (From admission, onward) Start Ordered 05/11/23 0001 NPO Diet Diet effective midnight 05/10/23 1058 05/10/23 0500 Adult Diet Clear Liquid (Order Panel) Effective tomorrow Question: ([facility]) Diet type Answer: Clear Liquid 05/09/23 1619 Nutrition Needs Calculations: Calculated Energy Needs Using Equations Weight: 86.9 kg (191 lb 8 oz) Height: 167.6 cm (5' 6 ) Estimated Protein Needs Type of Weight Used for Estimated Protein : Current Protein Needs Based on g/k.0 Total Protein Estimated Needs (gm): 86.86 Kcal/kg Type of Weight Used for Estimated Kcals: Current Kcal/k Total Kcal/kg Estimated Needs : 1737.28 Nutritional Needs and Diagnosis: Nutrition Diagnosis 1: Predicted suboptimal energy intake Related to: Clear liquid, Nausea Evidenced by: Physical finding Impression: Consult received for low fat diet education s/p ERCP. Per notes pt was having nausea with clears this AM, told to do just ice chips and sips per HAND BOOTMAKER notes. Attempted visit but RN reported pt was not appropriate for RD assessment at that time, TOUR MANAGER called and pt given narcan per notes. Will attach low fat diet education to AVS for now. Plan: Follow for low fat diet education at more appropriate time. Intervention and Monitoring: Goals: Advance to oral intake as medically able, Patient/caregiver able to teach back understandingof role of diet in disease process prior to discharge Interventions: Other (comment) Monitoring and Evaluation: Plan of care, Diet advancement Madyson Mcdonald RD,LD * Maria Del Rosario Blanco NP - 05/10/2023 10:30 AM CDT Gastroenterology Daily Progress GI consult note on paper chart SUBJECTIVE Chief complaint of abd pain. Interval History: 05/09 ERCP Patient is awake and alert. Complains of epigastric and right upper quadrant abdominal pain. Complains of nausea and vomiting. Nausea worse after clear liquid breakfast. Complains of a headache, no improvement with Tylenol. No flatus yet. OBJECTIVE Vitals: 24hr Min/Max: Temp Min: 36.2 ??C (97.1 ??F) Max: 37.1 ??C (98.7 ??F) Pulse Min: 63 Max: 84 BP Min: 130/90 Max: 153/87 Resp Min: 11 Max: 18 SpO2 Min: 95 % Max: 100 % Most Recent : Vitals: 05/10/23 0810 BP: 132/70 Pulse: 79 Resp: 16 Temp: 37.1 ??C (98.7 ??F) SpO2: 96% Physical Exam: General-Awake & Alert GI-Abd soft, Epig & RUQ tender to palpation. +BS Lab/Radiology/Diagnostic Review: Recent Labs Lab Units 05/10/23 0724 WBC K/cumm 7.2 HEMOGLOBIN g/dL 12.2 HEMATOCRIT % 36.6 PLATELETS K/cumm 289 No results found for: LIPASE 05/09 ERCP - Papillary stenosis treated with biliary and pancreatic sphincterotomies. - Morphologic changes of the pancreatic duct of unclear clinical significance. - Dual-duct protective stenting was performed to reduce risk/severity of potential procedure-associated complications. ASSESSMENT/PLAN RUQ abd pain unresponsive to medical management Biliary dilatation Papillary stenosis 05/09 ERCP noted above-sphincterotomies and stenting performed. -discussed limiting intake to ice chips and sips since nausea has been so persistent, patient agreeable -continue Zofran, alternate with Compazine -Cont IVF, supportive care -NPO after midnight -ERCP with stent removal tomorrow [facility] d/bang Reece -one time dose of Emilio Blanco NP 05/10/2023 This note was transcribed using [employer] Speech Recognition software. As a result, there may be unintended grammar and spelling errors. Every attempt is made to have correct dictation. If there are any questions or major errors, please contact me. Cosigned by Jordan Duff MD at 05/10/2023 4:19 PM CDT Associated attestation - Jordan Duff MD - 05/10/2023 4:19 PM CDT I have seen and examined this patient on 05/10/2023. I agree with the statemtns made in the present note. * Kaycee Reece MD - 05/10/2023 10:03 AM CDT Kaycee Reece's Progress Note Admit Date:05/09/2023 Date of Note: 05/10/2023, 10:03 AM PCP: Ramonita Crawford NP SUBJECTIVE: Chief complaint of abdominal pain Interval History: Patient sen at bedside Complains of heartburn OBJECTIVE: Vitals: Reviewed 24hr Min/Max: Temp Min: 36.2 ??C (97.1 ??F) Max: 37.1 ??C (98.7 ??F) Pulse Min: 63 Max: 84 BP Min: 130/90 Max: 153/87 Resp Min: 11 Max: 20 SpO2 Min: 95 % Max: 100 % Most Recent : Vitals: 05/10/23 0810 BP: 132/70 Pulse: 79 Resp: 16 Temp: 37.1 ??C (98.7 ??F) SpO2: 96% I/O last 2 completed shifts: In: 400 [I.V.:400] Out: 0 No intake/output data recorded. Physical Exam: Physical Exam Vitals and nursing note reviewed. Cardiovascular: Rate and Rhythm: Normal rate and regular rhythm. Pulses: Normal pulses. Heart sounds: Normal heart sounds. Pulmonary: Effort: Pulmonary effort is normal. Breath sounds: Normal breath sounds. Abdominal: General: Abdomen is flat. Bowel sounds are normal. There is no distension. Palpations: Abdomen is soft. There is no mass. Tenderness: There is abdominal tenderness. There is no guarding or rebound. Hernia: No hernia is present. Neurological: General: No focal deficit present. Mental Status: She is alert and oriented to person, place, and time. Psychiatric: Mood and Affect: Mood normal. Current Medications: Reviewed Schedule Medications: Current Facility-Administered Medications: acetaminophen (TYLENOL) tablet 650 mg, 650 mg, oral, Q4H PRN, 650 mg at 05/09/23 2243 albuterol 2.5 mg /3 mL (0.083 %) nebulizer solution 2.5 mg, 2.5 mg, nebulization, Q4H PRN (RT) albuterol HFA (PROVENTIL HFA,VENTOLIN HFA,PROAIR HFA) 90 mcg/actuation inhaler 2 puff, 2 puff, inhalation, Q6H PRN (RT) aluminum-magnesium hydroxide-simethicone (MAALOX) 40-40-4 mg/mL oral suspension 30 mL, 30 mL, oral,Q4H PRN amitriptyline (ELAVIL) tablet 10 mg, 10 mg, oral, Nightly, 10 mg at 05/09/232108 carvediloL (COREG) tablet 3.125 mg, 3.125 mg, oral, BID with meals (bkfst, dinner), 3.125 mg at 05/10/23811 cetirizine (ZyrTEC) tablet 10 mg, 10 mg, oral, Daily, 10 mg at 05/10/23811 docusate sodium (COLACE) capsule 100 mg, 100 mg, oral, BID, 100 mg at 05/10/23811 famotidine (PEPCID) tablet 20 mg, 20 mg, oral, Q12H PRN, 20 mg at 05/09/231715 fluticasone propionate (FLONASE) 50 mcg/actuation nasal spray 2 spray, 2 spray, each nostril, Daily, 2 spray at 05/10/23811 HYDROmorphone (DILAUDID) injection 1 mg, 1 mg, intravenous, Q3H PRN, 1 mg at 05/10/23809 LORazepam (ATIVAN) injection 1 mg, 1 mg, intravenous, Q6H PRN, 1 mg at 05/09/232243 montelukast (SINGULAIR) tablet 10 mg, 10 mg, oral, Nightly, 10 mg at 05/09/232108 ondansetron (ZOFRAN) injection 4 mg, 4 mg, intravenous, QID PRN, 4 mg at 05/09/232242 oxyBUTYnin XL (DITROPAN-XL) extended release tablet 5 mg, 5 mg, oral, Daily, 5 mg at 05/10/[address] (PROTONIX) extended release tablet 40 mg, 40 mg, oral, Daily, 40 mg at 05/10/23811 rosuvastatin (CRESTOR) tablet 5 mg, 5 mg, oral, Daily, 5 mg at 05/10/23811 sacubitriL-valsartan (ENTRESTO) 24-26 mg tablet 1 tablet, 1 tablet, oral, Q12H, 1 tablet at 05/10/23 0542 sodium chloride 0.9% infusion, 125 mL/hr, intravenous, Continuous, Last Rate: 125 mL/hr at 418, 125 mL/hr at 05/10/23 0418 tiZANidine (ZANAFLEX) tablet 4 mg, 4 mg, oral, TID PRN PRN Medications: acetaminophen albuterol albuterol HFA aluminum-magnesium hydroxide-simethicone famotidine HYDROmorphone LORazepam ondansetron tiZANidine Lab/Radiology/Diagnostic Review: Reviewed Laboratory review: Lab results in the last 24 hours: Recent Results (from the past 24 hour(s)) CBC with auto differential Collection Time: 05/10/23 7:24 AM Result Value Ref Range WBC 7.2 3.8 - 9.9 K/cumm Hgb 12.2 11.9 - 15.5 g/dL Hct 36.6 35.6 - 45.5 % Plt 289 150 - 400 K/cumm MPV 9.4 9.1 - 12.3 fL RBC 4.19 3.90 - 5.20 M/cumm MCV 87.4 81.3 - 96.4 fL MCH 29.1 27.1 - 33.3 pg MCHC 33.3 32.3 - 35.7 g/dL RDW CV 12.3 11.1 - 14.9 % RDW SD 39.0 35.7 - 48.1 fL NRBC abs 0.00 0.00 - 0.01 K/cumm Differential, auto Collection Time: 05/10/23 7:24 AM Result Value Ref Range Neutrophil abs 5.5 1.7 - 6.5 K/cumm Imm gran abs 0.0 0.0 - 0.1 K/cumm Lymphocyte abs 1.2 0.8 - 3.3 K/cumm Monocyte abs 0.4 0.2 - 0.8 K/cumm Eosinophil abs 0.2 0.0 - 0.5 K/cumm Basophil abs 0.0 0.0 - 0.1 K/cumm Neutrophil pct 75.8 % Imm gran pct 0.3 % Lymphocyte pct 16.0 % Monocyte pct 5.3 % Eosinophil pct 2.2 % Basophil pct 0.4 % Imaging review: [place] ERCP Result Date: 05/09/2023 Narrative: The images from this study are not interpreted by Radiology. Please refer to the physician's procedure / OR operative note. Assessment and Plan: Papillary stenosis status post biliary and pancreatic sphincterotomy and dual duct protective stenting. will continue with IV fluids, IV pain medications, antispasmodic, antiemetics and also clear liquid diet, Patient will have a repeat ERCP and stent removal tomorrow. NPO after midnight, add maalox for heartburn Asthma. Will continue Flonase at Singulair and also albuterol. Hypertension. Will continue Coreg. Gastroesophageal reflux disease. Will continue Protonix. Hyperlipidemia. Will continue Crestor. Cardiomyopathy status post AICD. Will continue Entresto and Coreg. Depression. Will continue amitriptyline. Additionally will continue other home medications, supportive care, SCDs for DVT prophylaxis. Diet: Adult Diet Clear Liquid Code Status: Full Code Discharge disposition and Discussion: Discharge plan will be back to home once patient's stent has been removed and patient improves symptomatically. Kaycee Reece MD [facility] * Ruslan Conrad [facility] - 05/09/2023 5:08 PM CDT Pharmacy Note - Formulary Substitution Albuterol nebs have been substituted for Xopenex nebs as approved by the [facility] and Therapeutics Committee. Ruslan Conrad RPh 05/09/23 5:07 PM documented in this encounter H&P Notes * Jordan Duff MD - 05/09/2023 8:00 AM CDT The patient was referred for open access ERCP. The reason for the procedure is abdominal pain Social History Tobacco Use Smoking status: Never Smokeless tobacco: Never Substance and Sexual Activity Drug use: Never Sexual activity: Yes Partners: Female control/protection: None Comment: Menopausal Alcohol Use: Not At Risk (09/06/2022) AUDIT-C Frequency of Alcohol Consumption: Never Average Number of Drinks: Patient does not drink Frequency of Binge Drinking: Never Family History Problem Relation Age of [...] cancer Neg Hx Thyroid cancer Neg Hx Penicillins, Drug [sulfamethoxazole-trimethoprim], Latex, and Tamoxifen Prior to Admission medications Medication Sig Start Date End Date Taking? Authorizing Provider albuterol (PROAIR DIGIHALER) 90 mcg/actuation inhaler Inhale 2 puffs every 6 (six) hours as needed for wheezing 08/06/22 Jose Luis Barclay MD albuterol 2.5 mg /3 mL (0.083 %) nebulizer solution Take 3 mL (2.5 mg total) by nebulization every 6 (six) hours as needed for shortness of breath 08/12/22 Theodore Sandoval MD cetirizine (ZyrTEC) 10 mg tablet TAKE 1 TABLET BY MOUTH DAILY 05/13/22 Brijesh Lynch MD docusate sodium (COLACE) 100 mg capsule TAKE 1 CAPSULE BY MOUTH TWICE DAILY 11/29/22 Jose Luis Barclay MD Entresto 24-26 mg tablet TAKE 1 TABLET BY MOUTH EVERY 12 HOURS 12/15/22 Jose Luis Barclay MD EPINEPHrine 0.3 mg/0.3 mL auto-injection syringe INJECT 0.3 ML(0.3 MG TOTAL) IN THE MUSCLE INSTRUCTED NEEDED FOR ANAPHYLAXIS; CALL 911 AFTER USE 01/25/22 Brijesh Lynch MD fluticasone propionate (FLONASE) 50 mcg/actuation nasal spray Administer 2 sprays into each nostrildaily 09/06/22 Jeff Guzman PA levalbuterol (XOPENEX) 1.25 mg/3 mL nebulizer solution Take 3 mL (1.25 mg total) by nebulization every 6 (six) hours as needed for wheezing 08/06/22 Jose Luis Barclay MD LORazepam (ATIVAN) 0.5 mg tablet TAKE 1 TABLET(0.5 MG) BY MOUTH EVERY NIGHT 01/28/23 Jeff Guzman PA metoprolol tartrate (LOPRESSOR) 25 mg immediate release tablet Take 0.5 tablets (12.5 mg total) by mouth 2 (two) times a day 05/06/22 Brijesh Lynch MD montelukast (SINGULAIR) 10 mg tablet Take 1 tablet (10 mg total) by mouth nightly 08/27/22 Jose Luis Barclay MD pantoprazole DR (PROTONIX) 40 mg EC tablet Take 1 tablet (40 mg total) by mouth daily 08/27/22 Jose Luis Barclay MD rosuvastatin (CRESTOR) 5 mg tablet TAKE 1 TABLET(5 MG) BY MOUTH DAILY 11/25/22 Jose Luis Barclay MD tiZANidine (ZANAFLEX) 4 mg tablet TAKE 1 TABLET(4 MG) BY MOUTH EVERY 8 HOURS NEEDED FOR MUSCLE SPASMS 01/14/23 Jose Luis Barclay MD traMADoL (ULTRAM) 50 mg tablet Take 1 tablet (50 mg total) by mouth every 8 (eight) hours as neededfor pain 12/30/22 Jeff Guzman PA Review of Systems Review of Systems Constitutional: Negative for chills and diaphoresis. HENT: Negative for tinnitus. Eyes: Negative for pain. Respiratory: Negative for chest tightness. Cardiovascular: Negative for chest pain. Gastrointestinal: Positive for abdominal pain and nausea. OBJECTIVE: Vitals: Arrival Vitals Temp Pulse Resp BP SpO2 Temp src Heart Rate Source Patient Position BP Location FiO2 (%) Most Recent : There were no vitals filed for this visit. Physical Exam General: Patient is alert and in no acute distress. Head: Normocephalic, atraumatic. Nares are symmetric without nasal flaring or respiratory distress.No lip cyanosis. Eyes: Sclera anicteric with extraocular eye movements intact. Cardiovascular: Peripheral perfusion appears adequate. No digital clubbing or cyanosis present. Chest: Non-labored respirations. Comfortable respiratory effort without recruitment of accessory respiratory muscles. Neurological: No focal neurologic deficit. Psychiatric: Normal affect and mood. Skin: Normal coloration and turgor. Hematological/Immunological: No bleeding gums The risks The aims, limitations, risks of potential complications of this procedure have been explained to the patient. Informed consent has been signed * Kaycee Reece MD - 05/09/2023 12:00 AM CDT CHIEF COMPLAINT Abdominal pain and persistent nausea. HISTORY OF PRESENT ILLNESS This is a 52-year-old lady who underwent ERCP today by Dr. Duff for evaluation of abdominal pain and nausea. ERCP showed papillary stenosis which was treated with biliary and pancreatic sphincterotomy and dual duct protective stenting. Post procedure patient is being admitted to the hospital for monitoring of the symptoms; pain and nausea are very common after this kind of procedure. When I saw the patient today, patient is complaining of some mild pain in the right upper quadrant area. ALLERGIES PENICILLIN, SULFA, LATEX, AND TAMOXIFEN. PAST MEDICAL HISTORY Positive for history of asthma, gastroesophageal reflux disease, depression, history of hypertension, osteoarthritis, cardiomyopathy, kidney stone, hypercholesterolemia, cholelithiasis, and also irritable bowel syndrome. PAST SURGICAL HISTORY Positive for appendectomy, breast biopsy, cardiac defibrillator placement, cataract extraction, cholecystectomy, colonoscopy, D and C, oophorectomy and also small intestinal surgery. FAMILY HISTORY Positive for Alzheimer disease, asthma, COPD, diabetes, heart disease, pancreatic cancer. SOCIAL HISTORY Lives at home. Does not smoke. Does not drink alcohol. HOME MEDICATIONS Include: Albuterol. Amitriptyline. Coreg. Entresto. Flonase. Xopenex. Ativan. Singulair. Protonix. Crestor. VESIcare. Tizanidine. Ultram. REVIEW OF SYSTEMS Other than mild discomfort in the right upper quadrant area, patient denies any other complaint. All other systems reviewed, no specific complaint found. PHYSICAL EXAMINATION VITALS: Temperature 97.1, pulse 71, respirations 15, blood 133/92. HEENT : Pupils reactive to light. Head normocephalic. No signs of trauma. NECK: Supple. No JVD. No thyromegaly. No lymphadenopathy. CHEST: Clear clinically. CV: S1-S2. ABDOMEN: Distal bowel sounds positive. BAG LOADER: Alert, awake, oriented x3. There is no gross focal neurological deficit. EXTREMITIES: No pedal edema. ASSESSMENT AND PLAN Papillary stenosis status post biliary and pancreatic sphincterotomy and dual duct protective stenting. Plan will be to treat patient with IV fluids, IV pain medications, antispasmodic, antiemetics and also ice chips today, clear liquid from tomorrow. Patient will have a repeat ERCP and stent removal on Tuesday. Asthma. Will continue Flonase at Singulair and also albuterol. Hypertension. Will continue Coreg. Gastroesophageal reflux disease. Will continue Protonix. Hyperlipidemia. Will continue Crestor. Cardiomyopathy status post AICD. Will continue Entresto and Coreg. Depression. Will continue amitriptyline. Additionally will continue other home medications, supportive care, SCDs for DVT prophylaxis. Discharge plan will be back to home once patient's stent has been removed and patient improves symptomatically. Job ID/Internal Job ID: [id number] documented in this encounter Procedure Notes * Jordan Duff MD - 05/11/2023 2:11 PM CDTAssociated Order(s): ERCP ENDOSCOPY LAB Patient Name: Chrissy Kilgore Procedure Date: 05/11/2023 2:11 PM Admit Type: Inpatient Room: [facility] Date of : 1970 Instrument Name: [id number] Gender: Female Note Status: Finalized Procedure: ERCP Indications: Stent removal after wide biliary/pancreatic ES Providers: Jordan Duff M.D. Referring MD: Robinson Bryant, Ethan Arce M.D. Medicines: Propofol per Anesthesia Complications: No immediate complications. Estimated Blood Loss: Estimated blood loss: none. Procedure: The benefits, risks, and alternatives to the procedure and sedation were discussed and informed consent was obtained. The TJF-Q400 was introduced through the mouth, and used to inject contrast into and used to inject contrast into the bile duct and ventral pancreatic duct. Findings: One biliary and one pancreatic stents were visible on the social service agency director film. The esophagus was successfully intubated under direct vision. The scope was advanced to the major papilla in the descending duodenum without detailed examination of the pharynx, larynx and associated structures, and upper GI tract. The upper GI tract was grossly normal. Inspection of the major papilla revealed that biliary and pancreatic sphincterotomies had been performed previously. Both appeared patent. Two stents originating in the biliary tree and the pancreatic duct were emerging from the major papilla. The stents were removed one at a time with the snare. The ventral pancreatic duct was deeply cannulated with the ball tipped cannula. Contrast was injected. The main pancreatic duct remained dilated and the side branches remained narrowed and attenuated. The bile duct was deeply cannulated with the ball tipped cannula. Contrast was injected. The main bile duct remained dilated. The largest diameter was 9 mm. A cholecystectomy had been performed. There was prompt drainage of contrast from both systems and no evidence of strictures after removal of the protective stents. Impression: - Papillary stenosis has resolved after recent biliary/pancreatic sphincterotomies. Excellent drainage is documented, the protective stents have been removed. - Mild morphologic changes of the pancreatic duct of unclear clinical significance. Recommendation: - Our procedures have little hope of sustained response without your contribution in terms of diet and weight management, as previously discussed. Start a fat-selective diet using preferentially [place] 3-rich sources, healthier and in our experience more digestible. This category includes vegetarian fats (extra-virgin olive oil, avocado, nuts), wild salmon and leaner meats, preferably from free-range (richer in muscle protein) sources. Reduce refined carbohydrates and increase dietary fiber. Multiple smaller meals reduce digestive workload. Avoid dehydration, alcohol and tobacco. - Monitor total daily calorie and maintain exercise as a general measure of good health to reduce strain to other organ systems. - Symptom reduction will be progressive, not sudden. Nausea/discomfort during the next few weeks are common and not concerning. When they occur, reduce solid oral intake in favor of liquids. Medications to reduce such symptoms will be prescribed. Advance activity as tolerated and keep in mind that some of these medications might make you drowsy. - Call our office as needed ([phone]). If ER visit is needed, make sure to give Dr. Duff's name to the ER staff. - Symptom improvement (frequency/intensity, partial/total) after restoring drainage is up to 65%-70% and not predictable due to lack of adequate testing. Visceral hypersensitivity or capability to feel abdominal organs adds another layer of uncertainty to symptom response. Responses might involve any or all of the symptoms and is usually progressive over next 4-8 weeks. Alcohol/narcotics increase smooth muscle tone/contractions and should be avoided. Sphincterotomy is not a cure for underlying conditions leading to stenosis. Avoiding fat, tobacco/nicotine appears to help. Recurrent stenosis (closing up of the large incisions over time) occurs in 30-35% of patients. Electronically signed by Jordan Duff MD Jordan Duff M.D. 05/11/2023 2:48:10 PM Number of Addenda: 0 Note Initiated On: 05/11/2023 2:11 PM Scope In: Scope Out: * Jordan Duff MD - 05/09/2023 9:44 AM CDTAssociated Order(s): ERCP ENDOSCOPY LAB Patient Name: Chrissy Kilgore Procedure Date: 05/09/2023 9:44 AM Admit Type: Outpatient Room: [facility] Date of : 1970 Instrument Name: [id number] Gender: Female Note Status: Finalized Procedure: ERCP Indications: Post-cholecystectomy abdominal pain, persistent nausea Providers: Jordan Duff M.D. Referring MD: Ethan Arce M.D., Ramonita Crawford, F.N.P. Medicines: Propofol per Anesthesia Complications: No immediate complications. Estimated Blood Loss: Estimated blood loss: none. Procedure: The benefits, risks, and alternatives to the procedure and sedation were discussed and informed consent was obtained. The TJF-[id number] was introduced through the mouth, and used to inject contrast into and used to inject contrast into the bile duct and ventral pancreatic duct. Findings: A social service agency director film of the abdomen was obtained and appeared normal. The esophagus was successfully intubated under direct vision. The scope was advanced to the major papilla in the descending duodenum without detailed examination of the pharynx, larynx and associated structures, and upper GI tract. The upper GI tract was grossly normal. Inspection of the major papilla revealed previous biliary sphincterotomy, patent. The bile duct was deeply cannulated with the short-nosed traction sphincterotome. Contrast was injected. The main bile duct was dilated diffusely. The largest diameter was 9 mm. A cholecystectomy had been performed. The ventral pancreatic duct was deeply cannulated with the short-nosed traction sphincterotome. Contrast was injected. The main pancreatic duct was mildly dilated and the side branches were attenuated, rarified and in some areas irregular. The previous biliary sphincterotomy was extended of 4 more mm with a monofilament short-tip traction sphincterotome using pure cut current. There was no post-sphincterotomy bleeding. A 5 mm ventral pancreatic sphincterotomy was made with a monofilament short-tip traction sphincterotome using pure cut current. There was no post-sphincterotomy bleeding. One 7 Fr by 7 cm pancreatic stent with a single internal flap was placed into the ventral pancreatic duct. Clear fluid flowed through the stent. The stent was in good position. One 10 mm by 6 cm biliary stent was placed into the bile duct. Bile flowed through the stent. The stent was in good position. 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 - Morphologic changes of the pancreatic duct of unclear clinical significance. - Dual-duct protective stenting was performed to reduce risk/severity of potential procedure-associated complications. Recommendation: - Monitor symptoms and manage accordingly in the hospital. Pain and nausea are common sequelae after the internal incision and the presence of stents. The degree of severity varies in different people and usually improves gradually. - Remove the protective stents in 48-72 hours. Electronically signed by Jordan Duff MD Jordan Duff M.D. 05/09/2023 10:39:38 AM Number of Addenda: 0 Note Initiated On: 05/09/2023 9:44 AM Scope In: Scope Out: documented in this encounter Nursing Notes * Deedee Steel RN - 05/10/2023 12:15 PM CDT Called to room by respiratory therapy who found patient with apneic breathing and sats in the high 40's on RA. She placed him on oxygen. When I arrived to room, sats were 96% on 6L NC. Pt was very lethargic and RR 7-8/min. ETCO2 placed reading 50-55. House PA called and narcan given. Pt began vomiting with severe headache after narcan. Zofran and toradol given. Pt now sleeping comfortably. Sats 95-99% on 4L NC, ETCO2 47-50. Arouses easily and answers questions appropriately. Will closely monitor. documented in this encounter Miscellaneous Notes * Plan of Care - Pamela Marlow RN - 05/11/2023 5:16 PM CDT Goals: Clinical Goals for the Shift: VSS, comfort, adequate rest, NPO after MN for procedure Problem: Health Behavior: Goal: Understanding of discharge needs will improve Outcome: Progressing Problem: Lack of Knowledge: Goal: Ability to develop a pain control plan will improve Outcome: Progressing Summary: * Plan of Care - Yajaira Chen RN - 05/11/2023 2:57 AM CDT Problem: Health Behavior: Goal: Understanding of discharge needs will improve Outcome: Progressing Problem: Lack of Knowledge: Goal: Ability to develop a pain control plan will improve Outcome: Progressing Goal: Ability to identify pain intensity on a pain scale and rate it consistently will improve Outcome: Progressing Goal: Ability to notify healthcare provider of pain before it becomes unmanageable or unbearable will improve Outcome: Progressing Problem: Medication: Goal: Satisfaction with pain management regimen will improve Outcome: Progressing Problem: Sensory: Goal: Ability to identify factors that increase the pain will improve Outcome: Progressing Goal: Pain level will decrease Outcome: Progressing Problem: Activity: Goal: Ability to return to normal activity level will improve Outcome: Progressing Problem: Lack of Knowledge: Goal: Knowledge of the prescribed therapeutic regimen will improve Outcome: Progressing Problem: Coping: Goal: Ability to cope will improve Outcome: Progressing Problem: Health Behavior: Goal: Identification of resources available to assist in meeting health care needs will improve Outcome: Progressing Problem: Sensory: Goal: Pain level will decrease Outcome: Progressing Goals: Clinical Goals for the Shift: VSS, comfort, adequate rest, NPO after MN for procedure Summary: VSS for this shift, rested well, c/o pain at beginning of shift, given prn pain medication, c/o nausea x1 given prn compazine. Patient NPO after MN for procedure * Plan of Care - Deedee Steel RN - 05/10/2023 5:22 PM CDT Problem: Health Behavior: Goal: Understanding of discharge needs will improve Outcome: Progressing Problem: Lack of Knowledge: Goal: Ability to develop a pain control plan will improve Outcome: Progressing Goal: Ability to identify pain intensity on a pain scale and rate it consistently will improve Outcome: Progressing Goal: Ability to notify healthcare provider of pain before it becomes unmanageable or unbearable will improve Outcome: Progressing Problem: Medication: Goal: Satisfaction with pain management regimen will improve Outcome: Progressing Problem: Sensory: Goal: Ability to identify factors that increase the pain will improve Outcome: Progressing Goal: Pain level will decrease Outcome: Progressing Problem: Activity: Goal: Ability to return to normal activity level will improve Outcome: Progressing Problem: Lack of Knowledge: Goal: Knowledge of the prescribed therapeutic regimen will improve Outcome: Progressing Problem: Coping: Goal: Ability to cope will improve Outcome: Progressing Problem: Health Behavior: Goal: Identification of resources available to assist in meeting health care needs will improve Outcome: Progressing Problem: Sensory: Goal: Pain level will decrease Outcome: Progressing Goals: Clinical Goals for the Shift: comfort, safety, stable VS, pain control Summary: VSS throughout the afternoon. Sleeping in intervals but awakens easily and answers questions appropriately. SAAB has been resolved since toradol was given. NPO after MN for stent pull tomorrow. * Significant Event - Rashawn Sinclair PA - 05/10/2023 12:09 PM CDT Rapid Response Team Event Note Reason for TOUR MANAGER: Apnea, somnolence Time Called: 1145 Time Arrived: 1150 SUBJECTIVE BRIEF HX: Patient is a 52 y.o. female with past medical history of asthma, GERD, cholelithiasis, HTN, IBS admitted on 05/09/[address] Duff. POD#1 TOUR MANAGER was called 2/2 apnea and altered mental status. RN reports finding patient minimally responsiveand looking blue . Patient has been receiving 1mg dilaudid every 3-4 hours. Patient is on bedside ETCO2 reading in the high 50's. Upon my arrival, patient is found sitting up in bed. RN is at bedside giving narcan. Patient is alert and oriented x4. Patient reports not feeling well after receiving the narcan. Complained of nausea (before narcan administration) and a headache. Past Medical History: Diagnosis Date Arthritis Asthma Brain concussion [id number] Cardiomyopathy (HCC) Cataract Cholelithiasis Depression [id number] Epiretinal membrane (ERM), bilateral GERD (gastroesophageal reflux disease) Hypercholesteremia Hypertension Irritable bowel syndrome Kidney stone 08/22/2000 Menstrual problem 08/22/2000 Migraines 08/22/2000 Peptic ulceration 0101?? 1 Allergies Allergen Reactions Penicillins Hives and Anaphylaxis Anaphylaxis Drug [Sulfamethoxazole-Trimethoprim] Itching and Swelling Facial swelling & widespread itching Latex Hives and Urticaria Tamoxifen Hives Objective: VS: Vitals: 05/10/23 1130 BP: Pulse: Resp: Temp: SpO2: 95% Physical Exam Constitutional: Appearance: She is ill-appearing. HENT: Head: Normocephalic. Nose: Nose normal. Mouth/Throat: Mouth: Mucous membranes are moist. Pharynx: Oropharynx is clear. Eyes: Extraocular Movements: Extraocular movements intact. Conjunctiva/sclera: Conjunctivae normal. Pupils: Pupils are equal, round, and reactive to light. Cardiovascular: Rate and Rhythm: Normal rate and regular rhythm. Pulses: Normal pulses. Heart sounds: Normal heart sounds. Pulmonary: Effort: Pulmonary effort is normal. Breath sounds: Normal breath sounds. Abdominal: Palpations: Abdomen is soft. Musculoskeletal: General: Normal range of motion. Cervical back: Normal range of motion. Skin: General: Skin is warm and dry. Neurological: General: No focal deficit present. Mental Status: She is alert and oriented to person, place, and time. Mental status is at baseline. Diagnostics: The most recent pertinent labs and imaging for this patient have been reviewed. ERCP: papillary stenosis treated with biliary and pancreatic sphincterotomies, dual-duct stenting performed. Assessment/Plan: 52yo female who is POD#1 from an ERCP with Dr. Duff. Plan to remove stents tomorrow. Patient found apneic, somnolent, and cyanotic. Ordered 0.4mg narcan. Upon my arrival, patient much more alert and oriented. C/o nausea and headache. Ordered Toradol as pain alternative. #Opioid overdose -Received multiple doses of dilaudid 1mg today -Apneic, cyanotic, and somnolent -Ordered 0.4mg narcan -Ordered 15mg toradol as pain alternative -Recommend usage of PRN non-opiods such as ativan and zanaflex #Lethargy 2/2 medications -Multiple medications with BAG LOADER depression: dilaudid, compazine, and PRN ativan -Caution advised for stacking of medications #Post-ERCP nausea/vomiting -zofran 4mg Q4 PRN -Compazine 5mg Q6H PRN Transferred to higher level of care: Stable to remain on current floor Time Event Ended: 1323 CANDE Daugherty * Initial Assessments - Christen Montez RN - 05/10/2023 11:40 AM CDT CM Initial Assessment Interview Note Information Obtained From: Patient (05/10/23 113) Admission Source: From home Impression: Pt admitted with RUQ pain. Plan Includes: GI- ERCP 05/09 Repeat ERCP and stent removal on 05/11 Fluids/pain management Primary Source of Transportation: Does the patient need discharge transport arranged?: No (05/10/23 113) Health Insurance Coverage: yes- medicaid Prescription Coverage: yes Pharmacy: [id number] - [address] AT [facility] [address] [place] [id number] Primary Care Provider: Ramonita Crawford NP Prior to Admission: Functional Status: Independent with ADLs Primary Caregiver: Self Support System: Spouse/Significant Other Support system contact info (name, phone, availablity): garry jasso [phone] Home Care Services: No Durable Medical Equipment: CPAP/Bi-PAP Living Arrangements: Spouse/significant other Type of Residence: Private residence (05/10/231137) SDOH: Transportation: In the past 12 months, has lack of transportation kept you from medical appointments or from getting medications?: No In the past 12 months, has lack of transportation kept you from meetings, work, or from getting things needed for daily living?: No (05/10/231138) Financial Resource: How hard is it for you to pay for the very basics like food, housing, medical care, and heating?: Not hard at all (05/10/231138) Housing: In the last 12 months, was there a time when you were not able to pay the mortgage or rent on time?: No In the last 12 months, was there a time when you did not have a steady place to sleep or slept in ashelter (including now)?: No (05/10/23 114) Social Connections: In a typical week, how many times do you talk on the phone with family, friends, or neighbors?: More than three times a week How often do you get together with friends or relatives?: More than three times a week How often do you attend advent or mormonism services?: Never Do you belong to any clubs or organizations such as advent groups, unions, fraternal or athletic groups, or school groups?: No How often do you attend meetings of the clubs or organizations you belong to?: Never Are you , , , , never , or living with a partner?: Living with partner (05/10/231138) Food Insecurity: Within the past 12 months, you worried that your food would run out before you got the money to buymore.: Never true Within the past 12 months, the food you bought just didn't last and you didn't have money to get more.: Never true (05/10/23 114) Alcohol Use: PHQ Screening Potential discharge needs include: Home Health: None (05/10/231137) Dialysis: Behavioral Health Services: Behavioral Health Services: No (09/19/23 1138) Patient expects to be Discharged to: Private residence, (05/09/23 5049) Additional Information: CM met with pt at bedside. Pt lives with SO and drives. Pt does not use anyDME. She has no identifiable needs. Patient's Identified Problem/Goal Problem: Ensure acute medical needs are met and that patient has a safe discharge plan. Goal: Secure a discharge plan that patient/family are agreeable with and ensure patient has continuum of care. Case management will follow for discharge planning and send referrals as needed. Goals include: To assure continuity of care, To maximize coping skills, To assure patient is in a safe environment and To assure access to community resources. Plan includes: 1. Collaboration with patient, MD, direct care nurse, Head Doffer, and other members of the health care team to assure needed interventions completed. 2. Return patient to optimal level of self-care post discharge. 3. Manager Strategy will follow for Discharge Planning - interventions as needed 4. Anticipated level of care at discharge 5. Planned Discharge Disposition Christen Montez RN * Plan of Care - Aniyah Carney RN - 05/10/2023 7:45 AM CDT Problem: Health Behavior: Goal: Understanding of discharge needs will improve Outcome: Progressing Problem: Lack of Knowledge: Goal: Ability to develop a pain control plan will improve Outcome: Progressing Goal: Ability to identify pain intensity on a pain scale and rate it consistently will improve Outcome: Progressing Goal: Ability to notify healthcare provider of pain before it becomes unmanageable or unbearable will improve Outcome: Progressing Problem: Medication: Goal: Satisfaction with pain management regimen will improve Outcome: Progressing Problem: Sensory: Goal: Ability to identify factors that increase the pain will improve Outcome: Progressing Goal: Pain level will decrease Outcome: Progressing Problem: Activity: Goal: Ability to return to normal activity level will improve Outcome: Progressing Problem: Lack of Knowledge: Goal: Knowledge of the prescribed therapeutic regimen will improve Outcome: Progressing Problem: Coping: Goal: Ability to cope will improve Outcome: Progressing Problem: Health Behavior: Goal: Identification of resources available to assist in meeting health care needs will improve Outcome: Progressing Goals: Clinical Goals for the Shift: Monitor vital signs, labs, control pain, comfort and safety Summary: Pt A&OX4, on room air, vital signs stable, gave Dilaudid & Tylenol for pain, gave Zofran for nausea, pt rested comfortably in bed, Normal saline @ 125 ml/hr infusing, pt free from falls, bed on low position, call light within reach, will continue to monitor documented in this encounter Plan of Treatment Pending Results Name Type Priority Associated Diagnoses Date /Time FL ERCP Endo Imaging Procedure IP Routine Right upper quadrant pain Nausea Abnormal findings on dx imaging of prt digestive tract 05/09/2023 10:26 AM CDT FL ERCP Endo Imaging Procedure IP Routine Right upper quadrant pain 05/11/2023 2:35 PM CDT documented as of this encounter Procedures Procedure Name Priority Date/Time Associated Diagnosis Comments ERCP IP Routine 05/11/2023 2:35 PM CDT Right upper quadrant pain ERCP IP Routine 05/11/2023 2:35 PM CDT Right upper quadrant pain ERCP IP Routine 05/11/2023 2:33 PM CDT ERCP 05/11/2023 2:11 PM CDT DIFFERENTIAL AUTO Routine 05/10/2023 7:2 4 AM CDT CBC WITH AUTO DIFFERENTIAL Routine 05/10/2023 7:24 AM CDT ERCP IP Routine 05/09/2023 10:26 AM CDT Right upper quadrant pain Nausea Abnormal findings on dx imaging of prt digestive tract ERCP IP Routine 05/09/2023 10:26 AM CDT Right upper quadrant pain Nausea Abnormal findings on dx imaging of prt digestive tract ERCP 05/09/2023 9:44 AM CDT documented in this encounter Results * FL ERCP Biliary and Pancreatic (05/11/2023 2:33 PM CDT) Narrative [facility] - 05/11/2023 2:34 PM CDT The images from this study are not interpreted by Radiology. ??Please refer to the physician's procedure / OR operative note. us Jordan Duff MD IMG FLUOROSCOPY PROCEDURES Final Result RAD_PACS_[facility] * ERCP (05/11/2023 2:11 PM CDT) Anatomical Region Laterality Modality Other Narrative Procedure Note Jordan Duff MD - 05/11/2023 2:11 PM CDT ENDOSCOPY LAB Patient Name: Chrissy Kilgore Procedure Date: 05/11/2023 2:11 PM Admit Type: Inpatient Room: [facility] Date of : 1970 Instrument Name: [id number] Gender: Female Note Status: Finalized Procedure: ERCP Indications: Stent removal after wide biliary/pancreatic ES Providers: Jordan Duff M.D. Referring MD: Nahomi Bryant.N.Andrea, Ethan Arce M.D. Medicines: Propofol per Anesthesia Complications: No immediate complications. Estimated Blood Loss: Estimated blood loss: none. Procedure: The benefits, risks, and alternatives to theprocedure and sedation were discussed and informed consentwas obtained. The TJF-Q400 was introduced through the mouth, and used to inject contrast into and used to inject contrast into the bile duct and ventral pancreatic duct. Findings: One biliary and one pancreatic stents were visible on the social service agency director film. The esophagus was successfully intubated under direct vision. Thescope was advanced to the major papilla in the descending duodenum without detailed examination of the pharynx, larynx and associatedstructures, and upper GI tract. The upper GI tract was grossly normal. Inspectionof the major papilla revealed that biliary and pancreaticsphincterotomies had been performed previously. Both appeared patent. Two stents originating in the biliary tree and the pancreatic duct were emerging from the major papilla. The stents were removed one at a time withthe snare. The ventral pancreatic duct was deeply cannulated with theball tipped cannula. Contrast was injected. The main pancreatic ductremained dilated and the side branches remained narrowed and attenuated. Thebile duct was deeply cannulated with the ball tipped cannula. Contrast was injected. The main bile duct remained dilated. The largest diameterwas 9 mm. A cholecystectomy had been performed. There was prompt drainageof contrast from both systems and no evidence of strictures afterremoval of the protective stents. Impression: - Papillary stenosis has resolved after recent biliary/pancreatic sphincterotomies. Excellent drainage is documented, the protective stents have been removed. - Mild morphologic changes of the pancreatic ductof unclear clinical significance. Recommendation: - Our procedures have little hope of sustained response without your contribution in terms of diet and weight management, as previously discussed.Start a fat-selective diet using preferentially Omega3-rich sources, healthier and in our experience more digestible. This category includes vegetarian fats (extra-virgin olive oil, avocado, nuts), wildsalmon and leaner meats, preferably from free-range(richer in muscle protein) sources. Reduce refined carbohydrates and increase dietary fiber. Multiple smaller meals reduce digestive workload. Avoid dehydration, alcohol and tobacco. - Monitor total daily calorie and maintain exerciseas a general measure of good health to reduce strainto other organ systems. - Symptom reduction will be progressive, notsudden. Nausea/discomfort during the next few weeks arecommon and not concerning. When they occur, reduce solidoral intake in favor of liquids. Medications to reducesuch symptoms will be prescribed. Advance activity as tolerated and keep in mind that some of these medications might make you drowsy. - Call our office as needed ([phone]). If ER visit is needed, make sure to give Dr. Duff'sname to the ER staff. - Symptom improvement (frequency/intensity, partial/total) after restoring drainage is up to 65%-70% and not predictable due to lack of adequate testing. Visceral hypersensitivity or capability to feel abdominal organs adds another layer of uncertainty to symptom response. Responses might involve any or all of the symptoms and is usually progressive over next 4-8 weeks. Alcohol/narcotics increase smooth muscle tone/contractions and shouldbe avoided. Sphincterotomy is not a cure forunderlying conditions leading to stenosis. Avoiding fat, tobacco/nicotine appears to help. Recurrentstenosis (closing up of the large incisions over time)occurs in 30-35% of patients. Electronically signed by Jordan Duff MD Jordan Duff M.D. 05/11/2023 2:48:10 PM Number of Addenda: 0 Note Initiated On: 05/11/2023 2:11 PM Scope In: Scope Out: Jordan Duff MD ENDOSCOPY PROCEDURES Final Result * Differential, auto (05/10/2023 7:24 AM CDT) Neutrophil abs 5.5 1.7 - 6.5 K/cumm [facility] Imm gran abs 0.0 0.0 - 0.1 K/cumm [facility] Lymphocyte abs 1.2 0.8 - 3.3 K/cumm [facility] Monocyte abs 0.4 0.2 - 0.8 K/cumm [facility] Eosinophil abs 0.2 0.0 - 0.5 K/cumm [facility] Basophil abs 0.0 0.0 - 0.1 K/cumm [facility] Neutrophil pct 75.8 % [facility] Comment: Interpretive Data Percent cell count reference ranges are not reported, since discordance with absolute values may lead to misinterpretation of CBC data. Current Interpretive Data was last revised on 2017. Imm gran pct 0.3 % [facility] Comment: Interpretive Data Percent cell count reference ranges are not reported, since discordance with absolute values may lead to misinterpretation of CBC data. Current Interpretive Data was last revised on 2017. Lymphocyte pct 16.0 % [facility] Comment: Interpretive Data Percent cell count reference ranges are not reported, since discordance with absolute values may lead to misinterpretation of CBC data. Current Interpretive Data was last revised on 2017. Monocyte pct 5.3 % [facility] Comment: Interpretive Data Percent cell count reference ranges are not reported, since discordance with absolute values may lead to misinterpretation of CBC data. Current Interpretive Data was last revised on 2017. Eosinophil pct 2.2 % [facility] Comment: Interpretive Data Percent cell count reference ranges are not reported, since discordance with absolute values may lead to misinterpretation of CBC data. Current Interpretive Data was last revised on 2017. Basophil pct 0.4 % [facility] Comment: Interpretive Data Percent cell count reference ranges are not reported, since discordance with absolute values may lead to misinterpretation of CBC data. Current Interpretive Data was last revised on 2017. Blood 05/10/2023 7:24 AM CDT 05/10/2023 7:30 AM CDT us Jordan Duff MD LAB BLOOD ORDERABLES Final Result [facility] [address] [place] [address] * CBC with auto differential (05/10/2023 7:24 AM CDT) WBC 7.2 3.8 - 9.9 K/cumm [facility] Hgb 12.2 11.9 - 15.5 g/dL [facility] Hct 36.6 35.6 - 45.5 % [facility] Plt 289 150 - 400 K/cumm [facility] MPV 9.4 9.1 - 12.3 fL [facility] RBC 4.19 3.90 - 5.20 M/cumm [facility] MCV 87.4 81.3 - 96.4 fL [facility] MCH 29.1 27.1 - 33.3 pg [facility] MCHC 33.3 32.3 - 35.7 g/dL [facility] RDW CV 12.3 11.1 - 14.9 % [facility] RDW SD 39.0 35.7 - 48.1 fL [facility] NRBC abs 0.00 0.00 - 0.01 K/cumm [facility] Blood 05/10/2023 7:24 AM CDT 05/10/2023 7:30 AM CDT Jordan Duff MD LAB BLOOD ORDERABLES Final Result Performing Organization Address City/State/[facility] Co de Phone Number [facility] [address] Department [place] [address] * ERCP (05/09/2023 9:44 AM CDT) Anatomical Region Laterality Modality Other Narrative Procedure Note Jordan Duff MD - 05/09/2023 9:44 AM CDT ENDOSCOPY LAB Patient Name: Chrissy Kilgore Procedure Date: 05/09/2023 9:44 AM Admit Type: Outpatient Room: [facility] 9 Date of : 1970 Instrument Name: [id number] Gender: Female Note Status: Finalized Procedure: ERCP Indications: Post-cholecystectomy abdominal pain, persistentnausea Providers: Jordan Duff M.D. Referring MD: Ethan Arce M.D., Robinson Bryant Medicines: Propofol per Anesthesia Complications: No immediate complications. Estimated Blood Loss: Estimated blood loss: none. Procedure: The benefits, risks, and alternatives to theprocedure and sedation were discussed and informed consentwas obtained. The [id number] was introduced through the mouth, and used to inject contrast into and used to inject contrast into the bile duct and ventral pancreatic duct. Findings: A social service agency director film of the abdomen was obtained and appeared normal. The esophagus was successfully intubated under direct vision. The scopewas advanced to the major papilla in the descending duodenum without detailed examination of the pharynx, larynx and associatedstructures, and upper GI tract. The upper GI tract was grossly normal. Inspectionof the major papilla revealed previous biliary sphincterotomy, patent.The bile duct was deeply cannulated with the short-nosed traction sphincterotome. Contrast was injected. The main bile duct was dilated diffusely. The largest diameter was 9 mm. A cholecystectomy had been performed. The ventral pancreatic duct was deeply cannulated with the short-nosed traction sphincterotome. Contrast was injected. The main pancreatic duct was mildly dilated and the side branches were attenuated, rarified and in some areas irregular. The previousbiliary sphincterotomy was extended of 4 more mm with a monofilamentshort-tip traction sphincterotome using pure cut current. There was no post-sphincterotomy bleeding. A 5 mm ventral pancreaticsphincterotomy was made with a monofilament short-tip traction sphincterotome using pure cut current. There was no post-sphincterotomy bleeding. One 7 Frby 7 cm pancreatic stent with a single internal flap was placed into the ventral pancreatic duct. Clear fluid flowed through the stent. Thestent was in good position. One 10 mm by 6 cm biliary stent was placed into the bile duct. Bile flowed through the stent. The stent was in good position. 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 - Morphologic changes of the pancreatic duct of unclear clinical significance. - Dual-duct protective stenting was performed to reduce risk/severity of potentialprocedure-associated complications. Recommendation: - Monitor symptoms and manage accordingly in the hospital. Pain and nausea are common sequelae after the internal incision and the presence of stents.The degree of severity varies in different people and usually improves gradually. - Remove the protective stents in 48-72 hours. Electronically signed by Jordan Duff MD Jordan Duff M.D. 05/09/2023 10:39:38 AM Number of Addenda: 0 Note Initiated On: 05/09/2023 9:44 AM Scope In: Scope Out: Jordan Duff MD ENDOSCOPY PROCEDURES Final Result documented in this encounter Visit Diagnoses Diagnosis Right upper quadrant pain Abdominal pain, right upper quadrant Nausea Nausea alone Abnormal findings on dx imaging of prt digestive tract XENA (generalized anxiety disorder) Generalized anxiety disorder Right upper quadrant pain Abdominal pain, right upper quadrant Nausea Nausea alone Abnormal findings on dx imaging of prt digestive tract documented in this encounter Admitting Diagnoses Diagnosis Chronic right upper quadrant pain Abdominal pain, right upper quadrant Right upper quadrant pain Abdominal pain, right upper quadrant documented in this encounter Administered Medications Inactive Administered Medications - up to 3 most recent administrations Medication Order MAR Action Action Date Dose Rate Site acetaminophen (TYLENOL) tablet 650 mg 650 mg, oral, Every 4 hours PRN, headaches, fever, Starting on 05/09/23 at 1619 Given 05/09/2023 10:43 PM CDT 650 mg Given 05/09/2023 6:29 PM CDT 650 mg albuterol 2.5 mg /3 mL (0.083 %) nebulizer solution 2.5 mg 2.5 mg, nebulization, Every 4 hours PRN (respiratory care practitioner), wheezing, Starting on Tue05/09/23 at 1705, Therapeutic Interchange for Xopenex as approved by [facility]T [facility]. albuterol HFA (PROVENTIL HFA,VENTOLIN HFA,PROAIR HFA) 90 mcg/actuation inhaler 2 puff 2 puff, inhalation, Every 6 hours PRN (respiratory care practitioner), wheezing, Starting on Tue05/09/23 at 1704 aluminum-magnesium hydroxide-simethicone (MAALOX) 40-40-4 mg/mL oral suspension 30 mL 30 mL, oral, Every 4 hours PRN, heartburn, Starting on Tue05/10/23 at 1003 amitriptyline (ELAVIL) tablet 10 mg 10 mg, oral, Nightly, First dose on Tue05/09/23 at 2100 Given 05/10/2023 8:03 PM CDT 10 mg Given 05/09/2023 9:09 PM CDT 10 mg carvediloL (COREG) tablet 3.125 mg 3.125 mg, oral, 2 times daily with meals (bkfst, dinner), First dose on Tue05/09/23 at 1800 Given 05/11/2023 9:10 AM CDT 3.125 mg Given 05/10/2023 5:31 PM CDT 3.125 mg Given 05/10/2023 8:12 AM CDT 3.125 mg cetirizine (ZyrTEC) tablet 10 mg 10 mg, oral, Daily, First dose on Tue05/09/23 at 1700 Given 05/11/2023 9:10 AM CDT 10 mg Given 05/10/2023 8:12 AM CDT 10 mg Given 05/09/2023 5:16 PM CDT 10 mg docusate sodium (COLACE) capsule 100 mg 100 mg, oral, 2 times daily, First dose on Tue05/09/23 at 2100 Given 05/11/2023 9:10 AM CDT 100 mg Given 05/10/2023 8:03 PM CDT 100 mg Given 05/10/2023 8:12 AM CDT 100 mg famotidine (PEPCID) tablet 20 mg 20 mg, oral, Every 12 hours PRN, indigestion, heartburn, Starting on Tue05/09/23 at 1619 Given 05/09/2023 5:16 PM CDT 20 mg fluticasone propionate (FLONASE) 50 mcg/actuation nasal spray 2 spray 2 spray, each nostril, Daily, First dose on Tue05/09/23 at 1700 Given 05/11/2023 9:11 AM CDT 2 sprays Given 05/10/2023 8:12 AM CDT 2 sprays Given 05/09/2023 5:34 PM CDT 2 sprays HYDROmorphone (DILAUDID) injection 1 mg 1 mg, intravenous, Administer over 2 Minutes, Every 3 hours PRN, pain, Starting on Tue05/09/23 at 1619, Hold for somnolence Given 05/10/2023 11:05 AM CDT 1 mg Given 05/10/2023 8:10 AM CDT 1 mg Given 05/10/2023 4:15 AM CDT 1 mg ketorolac (TORADOL) 15 mg/mL injection 15 mg 15 mg, intravenous, Every 6 hours PRN, 1st line for pain, Starting on Tue05/10/23 at 1157, For 5 days, For Adult IV push, administer over 15 seconds Given 05/11/2023 9:10 AM CDT 15 mg Given 05/10/2023 8:05 PM CDT 15 mg Given 05/10/2023 12:04 PM CDT 15 mg LORazepam (ATIVAN) injection 1 mg 1 mg, intravenous, Every 6 hours PRN, other, abdominal spasm, Starting on Tue05/09/23 at 1619, Hold for lethargy For IV administration, draw up ordered admin dose/volume, then dilute with equal volume of 0.9% sodium chloride and administer total volume to patient. Do not exceed a rate of 2 mg/minute. Given 05/09/2023 10:44 PM CDT 1 mg montelukast (SINGULAIR) tablet 10 mg 10 mg, oral, Nightly, First dose on Tue05/09/23 at 2100 Given 05/10/2023 8:03 PM CDT 10 mg Given 05/09/2023 9:09 PM CDT 10 mg ondansetron (ZOFRAN) injection 4 mg 4 mg, intravenous, Administer over 2 Minutes, Every 4 hours PRN, nausea, vomiting, Starting on Tue05/10/23 at 1100 Given 05/10/2023 11:55 AM CDT 4 mg oxyBUTYnin XL (DITROPAN-XL) extended release tablet 5 mg 5 mg, oral, Daily, First dose on Tue05/09/23 at 1700, Do not crush, chew, cut, dissolve, open or otherwise manipulate tablet/capsule. Given 05/11/2023 9:10 AM CDT 5 mg Given 05/10/2023 8:12 AM CDT 5 mg Given 05/09/2023 5:16 PM CDT [address] (PROTONIX) extended release tablet 40 mg 40 mg, oral, Daily, First dose on Tue05/09/23 at 1700, Do not crush, chew, cut, dissolve, open or otherwise manipulate tablet/capsule., Indications: Treatment of Non-Bleeding Gastric DisorderIndications:Treatment of Non-Bleeding Gastric Disorder Given 05/11/2023 9:10 AM CDT 40 mg Given 05/10/2023 8:12 AM CDT 40 mg Given 05/09/2023 5:16 PM CDT 40 mg prochlorperazine (COMPAZINE) injection 5 mg 5 mg, intravenous, Administer over 2 Minutes, Every 6 hours PRN, nausea, vomiting, Starting on Tue05/10/23 at 1046 Given 05/11/2023 12:33 AM CDT 5 mg Given 05/10/2023 11:08 AM CDT 5 mg rosuvastatin (CRESTOR) tablet 5 mg 5 mg, oral, Daily, First dose on Tue05/10/23 at 0900 Given 05/11/2023 9:10 AM CDT 5 mg Given 05/10/2023 8:12 AM CDT 5 mg sacubitriL-valsartan (ENTRESTO) 24-26 mg tablet 1 tablet 1 tablet, oral, Every 12 hours, First dose on Tue05/09/23 at 1700 Given 05/11/2023 4:38 AM CDT 1 tablet Given 05/10/2023 5:31 PM CDT 1 tablet Given 05/10/2023 5:42 AM CDT 1 tablet secretin (CHIRHOSTIM) injection Administer over 1 Minutes, As needed, Starting on Tue05/09/23 at 1013, Intra-Op Given 05/09/2023 10:13 AM CDT 16 mcg sodium chloride 0.9% infusion 125 mL/hr, intravenous, Continuous, Starting on Tue05/09/23 at 1700 New Bag 05/11/2023 5:34 AM CDT 125 mL/hr 125 mL/hr Rate/Dose Verify 05/11/2023 4:42 AM CDT 125 mL/hr 125 mL/ hr New Bag 05/10/2023 10:24 PM CDT 125 mL/hr 125 mL/hr documented in this encounter Discontinued Medications Medication Sig Discontinue Reason Start Date End Da te metoprolol tartrate (LOPRESSOR) 25 mg immediate release tabletIndications:Esse ntial hypertension Take 0.5 tablets (12.5 mg total) by mouth 2 (two) times a day Therapy completed 05/06/2022 05/09/2023 albuterol 2.5 mg /3 mL (0.083 %) nebulizer solution Take 3 mL (2.5 mg total) by nebulization every 6 (six) hours as needed for shortness of breath Therapy completed 08/12/2022 05/09/2023 LORazepam (ATIVAN) 0.5 mg tabletIndications:XENA (generalized anxiety disorder) TAKE 1 TABLET(0.5 MG) BY MOUTH EVERY NIGHT Reorder 01/28/2023 05/10/2023 traMADoL (ULTRAM) 50 mg tabletIndications:Neck pain Take 1 tablet (50 mg total) by mouth every 8 (eight) hours as needed for pain Stop Taking at Discharge 12/30/2022 05/11/2023 documented as of this encounter Historical Medications * This list may reflect changes made after this encounter. solifenacin (VESIcare) 10 mg tabletIndications: Urinary Urge Incontinence Take 1 tablet (10 mg total) by mouth every morning 04/22/2023 mupirocin (BACTROBAN) 2 % ointment Apply 1 Application topically as needed 04/05/2023 clotrimazole 1 % cream as needed 04/05/2023 carvediloL (COREG) 3.125 mg tabletIndications: hypertension Take 1 tablet (3.125 mg total) by mouth 2 (two) times a day with meals 04/22/2023 amitriptyline (ELAVIL) 10 mg tabletIndications: Irritable Bowel Syndrome Take 1 tablet (10 mg total) by mouth nightly at bedtime 04/05/2023 added in this encounter Active and Recently Administered Medications Times are shown in CDT. Scheduled Medication Order 05/09/2023 05/10/2023 05/11/2023 amitriptyline (ELAVIL) tablet 10 mg 10 mg, oral, Nightly, First dose on Tue05/09/23 at 2100 2109 (Given - Provider: Aniyah Carney RN) 2002 (Given - Provider: Yajaira Chen RN) 1332 (OCT Hold - Provider: Automatic Transfer Provider - Reason: Patient not available)162 (OCT Unhold - Provider: Automatic Transfer Provider) carvediloL (COREG) tablet 3.125 mg 3.125 mg, oral, 2 times daily with meals (bkfst, dinner), First dose on Tue05/09/23 at 1800 1716 (Given - Provider: Shirley Escamilla RN) 0812 (Given - Provider: Deedee Steel, ADAMA)1731 (Given - Provider: Deedee Steel RN) 0910 (Given - Provider: Pamela Marlow, ADAMA)1332 (MAR Hold - Provider: Automatic Transfer Provider - Reason: Patient not available)162 ([facility] Unhold - Provider: Automatic Transfer Provider)1800 (Due) cetirizine (ZyrTEC) tablet 10 mg 10 mg, oral, Daily, First dose on Tue05/09/23 at 1700 1716 (Given - Provider: Shirley Escamilla RN) 0812 (Given - Provider: Deedee Steel, ADAMA) 0910 (Given - Provider: Pamela Marlow, ADAMA)1332 (OCT Hold - Provider: Automatic Transfer Provider - Reason: Patient not available)162 ([facility] Unhold - Provider: Automatic Transfer Provider) docusate sodium (COLACE) capsule 100 mg 100 mg, oral, 2 times daily, First dose on Tue05/09/23 at 2100 2110 (Given - Provider: Aniyah Carney RN) 0812 (Given - Provider: Deedee Steel, ADAMA)2002 (Given - Provider: Yajaira Chen, ADAMA) 09 (Given - Provider: Pamela Marlow, ADAMA)133 ([facility] Hold - Provider: Automatic Transfer Provider - Reason: Patient not available)162 ([facility] Unhold - Provider: Automatic Transfer Provider) fluticasone propionate (FLONASE) 50 mcg/actuation nasal spray 2 spray 2 spray, each nostril, Daily, First dose on Tue05/09/23 at 1700 1734 (Given - Provider: Socorro Gamboa RN) 08 (Given - Provider: Deedee Steel, ADAMA) 09 (Given - Provider: Pamela Marlow, ADAMA)133 ([facility] Hold - Provider: Automatic Transfer Provider - Reason: Patient not available)162 ([facility] Unhold - Provider: Automatic Transfer Provider) levoFLOXacin (LEVAQUIN) 500 mg/100 mL in dextrose 5% (premix) 500 mg (COMPLETED) 500 mg, intravenous, at 100 mL/hr, Administer over 60 Minutes, Once, On Tue05/09/23 at 0930, For 1 dose, Pre-Op, Indications: PRE ERCP 0909 (New Bag - Provider: Aleja Fong, ADAMA) montelukast (SINGULAIR) tablet 10 mg 10 mg, oral, Nightly, First dose on Tue05/09/23 at 2100 2109 (Given - Provider: Aniyah Carney RN) 2002 (Given - Provider: Yajaira Chen, ADAMA) 1331 ([facility] Hold - Provider: Automatic Transfer Provider - Reason: Patient not available)162 ([facility] Unhold - Provider: Automatic Transfer Provider) naloxone (NARCAN) 0.4 mg/mL injection 0.4 mg 0.4 mg, intravenous, Once, On Tue05/10/23 at 1230, For 1 dose, For IV, administer over 30 seconds. 1200 (Not Given - Provider: Deedee Steel RN - Reason: Other - Comment: see 1150) oxyBUTYnin XL (DITROPAN-XL) extended release tablet 5 mg 5 mg, oral, Daily, First dose on Tue05/09/23 at 1700, Do not crush, chew, cut, dissolve, open or otherwise manipulate tablet/capsule. 1716 (Given - Provider: Shirley Escamilla RN) 0812 (Given - Provider: Deedee Steel, ADAMA) 0910 (Given - Provider: Pamela Marlow, ADAMA)1332 ([facility] Hold - Provider: Automatic Transfer Provider - Reason: Patient not available)1628 ([facility] Unhold - Provider: Automatic Transfer Provider) pantoprazole DR (PROTONIX) extended release tablet 40 mg 40 mg, oral, Daily, First dose on Tue05/09/23 at 1700, Do not crush, chew, cut, dissolve, open or otherwise manipulate tablet/capsule., Indications: Treatment of Non-Bleeding Gastric Disorder 1716 (Given - Provider: Shirley Escamilla RN) 0812 (Given - Provider: Deedee Steel RN) 0910 (Given - Provider: Pamela Marlow, ADAMA)1332 ([facility] Hold - Provider: Automatic Transfer Provider - Reason: Patient not available)1628 ([facility] Unhold - Provider: Automatic Transfer Provider) rosuvastatin (CRESTOR) tablet 5 mg 5 mg, oral, Daily, First dose on Tue05/10/23 at 0900 0812 (Given - Provider: Deedee Steel RN) 0910 (Given - Provider: Pamela Marlow, ADAMA)1332 ([facility] Hold - Provider: Automatic Transfer Provider - Reason: Patient not available)1628 ([facility] Unhold - Provider: Automatic Transfer Provider) sacubitriL-valsartan (ENTRESTO) 24-26 mg tablet 1 tablet 1 tablet, oral, Every 12 hours, First dose on Tue05/09/23 at 1700 1716 (Given - Provider: Shirley Escamilla RN) 0542 (Given - Provider: Aniyah Carney RN)1731 (Given - Provider: Deedee Steel, ADAMA) 0438 (Given - Provider: Yajaira Chen RN)1332 ([facility] Hold - Provider: Automatic Transfer Provider - Reason: Patient not available)1628 ([facility] Unhold - Provider: Automatic Transfer Provider)1700 (Due) Continuous Medication Order 05/09/2023 05/10/2023 05/11/2023 Lactated Ringer's (LR) infusion (CANCELED) 30 mL/hr, intravenous, Continuous, Starting on Tue05/09/23 at 0945 0911 (New Bag - Provider: Aleja Fong RN)0956 (Rate/Dose Verify - Provider: Estefani Masters CRNA)1032 (Anesthesia Volume Adjustment - Provider: Estefani Masters CRNA) 0424 (Stopped - Provider: Aniyah Carney RN) Lactated Ringer's (LR) infusion () 125 mL/hr, intravenous, Continuous, Starting on Tue05/09/23 at 1115, For 2 hours, Recovery (GI) 1235 (New Bag - Provider: Corrine Stallings RN)1729 (Stopped - Provider: Socorro Gamboa RN) sodium chloride 0.9% infusion 125 mL/hr, intravenous, Continuous, Starting on Tue05/09/23 at 1700 1733 (New Bag - Provider: Socorro Gamboa RN) 0418 (New Bag - Provider: Aniyah Carney RN)1201 (Rate/Dose Verify - Provider: Deedee Steel RN)1259 (New Bag - Provider: Deedee Steel RN)1501 (Rate/Dose Verify - Provider: Deedee Steel RN)1721 (Rate/Dose Verify - Provider: Deedee Steel RN)2124 (Rate/Dose Verify - Provider: Yajaira Chen, RN)2224 (New Bag - Provider: Stacie Quiros, ADAMA) 0442 (Rate/Dose Verify - Provider: Yajaira Chen, RN)0534 (New Bag - Provider: Yajaira Chen, RN)2217 (Due: Stopped) sodium chloride 0.9% infusion 30 mL/hr, intravenous, Continuous, Starting on Tue05/11/23 at 1415, For 4 hours, Pre-Procedure (GI) 1339 (New Bag - Provider: Hannah Isaacs RN)1505 (Stopped - Provider: Adore Kim, ADAMA) PRN Medication Order 05/09/2023 05/10/2023 05/11/2023 acetaminophen (TYLENOL) tablet 650 mg 650 mg, oral, Every 4 hours PRN, headaches, fever, Starting on Tue05/09/23 at 1619 1829 (Given - Provider: Shirley Escamilla, ADAMA)2243 (Given - Provider: Aniyah Carney RN) 1332 ([facility] Hold - Provider: Automatic Transfer Provider - Reason: Patient not available)1628 ([facility] Unhold - Provider: Automatic Transfer Provider) albuterol 2.5 mg /3 mL (0.083 %) nebulizer solution 2.5 mg 2.5 mg, nebulization, Every 4 hours PRN (respiratory care practitioner), wheezing, Starting on Tue05/09/23 at 1705, Therapeutic Interchange for Xopenex as approved by [facility]T [facility]. 1332 ([facility] Hold - Provider: Automatic Transfer Provider - Reason: Patient not available)1628 ([facility] Unhold - Provider: Automatic Transfer Provider) albuterol HFA (PROVENTIL HFA,VENTOLIN HFA,PROAIR HFA) 90 mcg/actuation inhaler 2 puff 2 puff, inhalation, Every 6 hours PRN (respiratory care practitioner), wheezing, Starting on Tue05/09/23 at 1704 1332 ([facility] Hold - Provider: Automatic Transfer Provider - Reason: Patient not available)1628 ([facility] Unhold - Provider: Automatic Transfer Provider) aluminum-magnesium hydroxide-simethicone (MAALOX) 40-40-4 mg/mL oral suspension 30 mL 30 mL, oral, Every 4 hours PRN, heartburn, Starting on Tue05/10/23 at 1003 1332 ([facility] Hold - Provider: Automatic Transfer Provider - Reason: Patient not available)1628 ([facility] Unhold - Provider: Automatic Transfer Provider) famotidine (PEPCID) tablet 20 mg 20 mg, oral, Every 12 hours PRN, indigestion, heartburn, Starting on Tue05/09/23 at 1619 1716 (Given - Provider: Shirley Escamilla, ADAMA) 1332 ([facility] Hold - Provider: Automatic Transfer Provider - Reason: Patient not available)1628 ([facility] Unhold - Provider: Automatic Transfer Provider) HYDROmorphone (DILAUDID) injection 1 mg (COMPLETED) 1 mg, intravenous, Administer over 2 Minutes, Every 30 min PRN, 1st line for pain, Administer one minute after lorazepam, Starting on Tue05/09/23 at 1034, For 2 doses, Recovery (GI), Hold for lethargy 1100 (Given - Provider: Roseann Decker, ADAMA)1146 (Given - Provider: Roseann Decker RN) HYDROmorphone (DILAUDID) injection 1 mg 1 mg, intravenous, Administer over 2 Minutes, Every 3 hours PRN, pain, Starting on Tue05/09/23 at 1619, Hold for somnolence 1716 (Given - Provider: Shirley Escamilla, ADAMA)2116 (Given - Provider: Aniyah Carney, ADAMA) 0415 (Given - Provider: Aniyah Canrey RN)0810 (Given - Provider: Deedee Steel RN)1105 (Given - Provider: Deedee Steel RN) 1332 ([facility] Hold - Provider: Automatic Transfer Provider - Reason: Patient not available)1628 ([facility] Unhold - Provider: Automatic Transfer Provider) ioversoL (OPTIRAY 350) injection 0.01-500 mL (COMPLETED) 0.01-500 mL, intraductal, Once in imaging, contrast, Starting on Tue05/11/23 at 1412, For 1 dose 1430 (Contrast Given - Provider: Hannah Carranza, RT - Comment: per ) ketorolac (TORADOL) 15 mg/mL injection 15 mg 15 mg, intravenous, Every 6 hours PRN, 1st line for pain, Starting on Tue05/10/23 at 1157, For 5 days, For Adult IV push, administer over 15 seconds 1204 (Given - Provider: Ligia Patricio, ADAMA)2005 (Given - Provider: Yajaira Chen, ADAMA) 0910 (Given - Provider: Pamela Marlow, ADAMA)1332 ([facility] Hold - Provider: Automatic Transfer Provider - Reason: Patient not available)1628 ([facility] Unhold - Provider: Automatic Transfer Provider) LORazepam (ATIVAN) injection 1 mg (COMPLETED) 1 mg, intravenous, Every 30 min PRN, Abdominal Spasm, Starting on Tue05/09/23 at 1034, For 3 doses, Recovery (GI), For IV administration, draw up ordered admin dose/volume, then dilute with equal volume of 0.9% sodium chloride and administer total volume to patient. Do not exceed a rate of 2 mg/minute. 1056 (Given - Provider: Roseann Decker RN)1316 (Given - Provider: Roseann Decker RN)1615 (Given - Provider: Roseann Decker RN) LORazepam (ATIVAN) injection 1 mg 1 mg, intravenous, Every 6 hours PRN, other, abdominal spasm, Starting on Tue05/09/23 at 1619, Hold for lethargy For IV administration, draw up ordered admin dose/volume, then dilute with equal volume of 0.9% sodium chloride and administer total volume to patient. Do not exceed a rate of 2 mg/minute. 2244 (Given - Provider: Aniyah Carney RN) 1332 ([facility] Hold - Provider: Automatic Transfer Provider - Reason: Patient not available)1628 ([facility] Unhold - Provider: Automatic Transfer Provider) ondansetron (ZOFRAN) injection 4 mg (CANCELED) 4 mg, intravenous, Administer over 2 Minutes, Every 30 min PRN, nausea, vomiting, Starting on Tue05/09/23 at 1034, Recovery (GI) 1228 (Given - Provider: Corrine Stallings RN)1618 (Given - Provider: Roseann Decker RN) ondansetron (ZOFRAN) injection 4 mg (CANCELED) 4 mg, intravenous, Administer over 2 Minutes, 4 times daily PRN, nausea, vomiting, Starting on Tue05/09/23 at 1619 2243 (Given - Provider: Aniyah Carney RN) ondansetron (ZOFRAN) injection 4 mg 4 mg, intravenous, Administer over 2 Minutes, Every 4 hours PRN, nausea, vomiting, Starting on Tue05/10/23 at 1100 1155 (Given - Provider: Deedee Steel RN) 1332 ([facility] Hold - Provider: Automatic Transfer Provider - Reason: Patient not available)1628 ([facility] Unhold - Provider: Automatic Transfer Provider) prochlorperazine (COMPAZINE) injection 5 mg 5 mg, intravenous, Administer over 2 Minutes, Every 6 hours PRN, nausea, vomiting, Starting on Tue05/10/23 at 1046 1108 (Given - Provider: Deedee Steel, ADAMA) 0033 (Given - Provider: Yajaira Chen, ADAMA)1332 ([facility] Hold - Provider: Automatic Transfer Provider - Reason: Patient not available)1628 ([facility] Unhold - Provider: Automatic Transfer Provider) secretin (CHIRHOSTIM) injection (CANCELED) Administer over 1 Minutes, As needed, Starting on Tue05/09/23 at 1013, Intra-Op 1013 (Given - Provider: Aleja Palomo RN) tiZANidine (ZANAFLEX) tablet 4 mg 4 mg, oral, 3 times daily PRN, muscle spasms, Starting on Tue05/09/23 at 1619, Administer on an empty stomach 1332 ([facility] Hold - Provider: Automatic Transfer Provider - Reason: Patient not available)1628 ([facility] Unhold - Provider: Automatic Transfer Provider) No Frequency Medication Order 05/09/2023 05/10/2023 05/11/2023 naloxone (NARCAN) 0.4 mg/mL injection - ADS Override Pull (COMPLETED) Starting on Tue05/10/23 at 1144, For 1 dose, Created by cabinet override For IV, administer over 30 seconds. 1150 (Given - Provider: Deedee Steel, ADAMA) documented in this encounter Orders Medications Ordered That Sarabjit ht Not Have Been Administered Count Last Ordered Date First Ordered Date ioversoL (OPTIRAY 350) injec tion 0.01-500 mL 1 05/11/2023 sodium chloride 0.9% infusion 3 05/11/2023 05/09/2023 aluminum-magnesium hydroxide -simethicone (MAALOX) 40-40-4 mg/mL oral suspension 30 mL 1 05/10/2023 HYDROcodone-acetaminophen (N ORCO) 5-325 mg per tablet 1 tablet 1 05/10/2023 ketorolac (TORADOL) 15 mg/mL injection 15 mg 1 05/10/2023 naloxone (NARCAN) 0.4 mg/mL injection - ADS Override Pull 1 05/10/2023 naloxone (NARCAN) 0.4 mg/mL injection 0.4 mg 1 05/10/2023 ondansetron (ZOFRAN) injection 4 mg 3 05/1005/09/2023 prochlorperazine (COMPAZINE) injection 5 mg 1 05/10/2023 acetaminophen (TYLENOL) tablet 650 mg 1 albuterol (PROAIR DIGIHALER) 90 mcg/actuation breath activated inhaler 2 puff 1 05/09/2023 albuterol 2.5 mg /3 mL (0.08 3 %) nebulizer solution 2.5 mg 1 05/09/2023 albuterol HFA (PROVENTIL HFA ,VENTOLIN HFA,PROAIR HFA) 90 mcg/actuation inhaler 2 puff 1 05/09/2023 amitriptyline (ELAVIL) tablet 10 mg 1 05/09 carvediloL (COREG) tablet 3.125 mg 1 2022 cetirizine (ZyrTEC) tablet 10 mg 1 05/09/20 23 docusate sodium (COLACE) capsule 100 mg 1 0 05/09/2023 famotidine (PEPCID) tablet 20 mg 1 05/09/20 23 fluticasone propionate (FLON ASE) 50 mcg/actuation nasal spray 2 spray 1 05/09/2023 HYDROmorphone (DILAUDID) injection 1 mg 2 0 05/09/2023 Lactated Ringer's (LR) infusion 2 3 levalbuterol (XOPENEX) 1.25 mg/3 mL nebulizer solution 1.25 mg 1 05/09/2023 levoFLOXacin (LEVAQUIN) 500 mg/100 mL in dextrose 5% (premix) 500 mg 1 05/09/2023 LORazepam (ATIVAN) injection 1 mg 2 023 montelukast (SINGULAIR) tablet 10 mg 1 04/22 oxyBUTYnin XL (DITROPAN-XL) extended release tablet 5 mg 1 05/09/[address] (PROTONIX) e xtended release tablet 40 mg 1 05/09/2023 rosuvastatin (CRESTOR) tablet 5 mg 1 2022 sacubitriL-valsartan (ENTRES TO) 24-26 mg tablet 1 tablet 1 05/09/2023 tiZANidine (ZANAFLEX) tablet 4 mg 1 023 Consult Count Last Ordered Date First Orde red Date IP CONSULT TO NUTRITION SERVICES 1 05/09/20 Admission Count Last Ordered Date First Orde red Date ADMIT TO INPATIENT 1 05/10/2023 Discharge Count Last Ordered Date First Orde red Date DISCHARGE PATIENT 1 05/11/2023 Case Request Count Last Ordered Date First Orde red Date CASE REQUEST GI 1 05/10/2023 documented in this encounter Care Teams Assistant Associate Full Professor Relationship Specialty Start Date End Date Ramonita Crawford NP [address] [address] PCP - General Family Medicine 02/18/23 Angeles Hernandez MD [address] [address] Referring Physician Gynecology 07/21/21 documented as of this encounter
--- OUTSIDE RECORDS SUMMARY | 2024-09-03 19:36 | XMS_ITS | Encounter Summary ---
Author Organization [facility] Address [address] [place] [address] Phone Care Team Providers Care Plant Anatomy Teacher Name Role Phone Angeles Hernandez MD Unavailable [phone] Ramonita Crawford NP Primary Care Provider [phone] Reason for Referral * Diagnostic Imaging (Routine) - Closed Specialty Diagnoses / Procedures Referred By Contcosme t Referred To Contact Diagnoses Vitreous syneresis of both eyes Procedures OCT, Retina - OU - Both Eyes Mary Ann Webster MD [address] [place] [address] Phone: tel: fax: [facility] (All Locations) Referral ID Status Reason Start Date Expiration Date Visits Re quested Visits Authorized [id number] Closed 03/16/2023 04/14/2024 1 1 * Diagnostic Imaging (Routine) - Closed Specialty Diagnoses / Procedures Referred By Sharlene angulo Referred To Contact Diagnoses Vitreous syneresis of both eyes Procedures IOL Biometry - OU - Both Eyes Mary Ann Webster MD [address] [place] [address] Phone: tel: fax: [facility] (All Locations) Referral ID Status Reason Start Date Expiration Date Visits Re quested Visits Authorized [id number] Closed 03/16/2023 04/14/2024 1 1 * Diagnostic Imaging (Routine) - Closed Specialty Diagnoses / Procedures Referred By Contac t Referred To Contact Diagnoses Vitreous syneresis of both eyes Procedures Miller Visual Field - OU - Both Eyes Mary Ann Webster MD [address] [place] [address] Phone: tel: fax: [facility] (All Locations) Referral ID Status Reason Start Date Expiration Date Visits Re quested Visits Authorized [id number] Closed 03/16/2023 04/14/2024 1 1 Encounter Details Date Type Department Care Team (Late st Contact Info) Description 03/16/2023 Orders Only [facility] Ophthalmology [address] [place] [id number] Mary Ann Webster MD [address] [place] [address] Vitreous syneresis of both eyes (Primary Dx) Social History Tobacco Use Types [...] on file 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 Gender Identity Female 03/27/2020 5:01 PM CDT Sexual Orientation Lesbian 03/27/2020 5: 01 PM CDT documented as of this encounter Plan of Treatment Not on file documented as of this encounter Results * IOL Biometry - [...] surgical planning us Mary Ann Webster MD [facility] ULTRASOUND Edited Resul t - Final * Miller Visual Field - OU - [...] Full OU us Mary Ann Webster MD [facility] VISUAL FIELD Edited Res ult - Final * OCT, Retina - OU - Both Eyes (05/20/2023 8:31 AM CDT) Anatomical Region Laterality Modality Head Other Narrative 05/20/2023 9:26 AM CDT Right Eye Quality was good. Left Eye Quality was good. 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
--- OUTSIDE RECORDS SUMMARY | 2024-09-03 19:36 | XMS_ITS | Encounter Summary ---
Author Organization [facility] Address [address] [place] [address] Phone Care Team Providers Care Ehs Manager Name Role Phone Angeles Hernandez MD Unavailable [phone] Reason for Visit * Cardiology (Routine) - Closed Specialty Diagnoses / Procedures Referred By Contac t Referred To Contact Diagnoses Broken heart syndrome Encounter to establish care with new doctor Procedures Transthoracic Echo (TTE) Complete W Doppler/[place] [address] [place] [address] [address] [place] [address] Phone: tel: fax: External Order Referral ID Status Reason Start Date Expiration Date Visits Re quested Visits Authorized [id number] Closed 05/11/2022 06/10/2023 1 1 Encounter Details Date Type Department Care Team (Latest Contact Info) Description 06/01/2022 3:00 PM CDT Ancillary Procedure [facility] Cardiology [address] [place] [address] [address] [place] [address] Broken heart syndrome; Encounter to establish care with new doctor Social History Tobacco Use Types Packs/Day Years Used Date Smoking Tobacco: Never Smokeless Tobacco: Never Alcohol Use Standard Drinks/Week Comments Never 0 (1 standard drink = 0.6 oz pur e alcohol) AUDIT-C Answer Date Recorded Q1: How often do you have a drink containing alcohol? Never 05/04/2022 Q2: How many drinks containi ng alcohol do you have on a typical day when you are drinking? Patient does not drink Q3: How often do you have si x or more drinks on one occasion? 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 Gender Identity Female 03/27/2020 5:01 PM CDT Sexual Orientation Lesbian 03/27/2020 5: 01 PM CDT documented as of this encounter Plan of Treatment Not on file documented as of this encounter Procedures Procedure Name Priority Date/Time Associated Diagnosis Comments TRANSTHORACIC ECHO (TTE) COMPLETE W DOPPLER/CF W CONTRAST Routine 06/01/2022 3:49 PM CDT Broken heart syndrome Encounter to establish care with new doctor documented in this encounter Results * TRANSTHORACIC ECHO (TTE) COMPLETE W DOPPLER/CF W CONTRAST (06/01/2022 3:49 PM CDT) LV EF 63 % CARDIOREPORT Anatomical Region Laterality Modality Ultrasound 06/01/2022 3:00 PM CDT Narrative 06/02/2022 3:35 AM CDT Patient name: Chrissy Kilgore Date of test: 06/01/2022 Type of test: TTE w/Doppler [facility] #: [id number] Date of : 1970 (F) Lard Refiner: Eileen Avila RDCS Referring Physician: JEANNIE SWANSON MD Contrast Agent: 1.1 ml Optison Administered, (1.9 ml wasted). Contrast Administered by: Eileen Avila RDCS Supervised/Interpreted by: Jeannie Swanson MD Diagnosis: Location: [facility] Reason for test: Broken Heart Syndrome MV Structure: Normal, ?MV Motion: Normal, ?? Mitral Annulus: Normal AV Structure: tricuspid and is mildly thickened, ?? AV Motion: minimally restricted Aotic root: Normal, ?TM: Normal, ?? PV: Normal Valvular Vegetations: none seen, ?Mass/Thrombi: none seen RA: Normal Measurements: ?M-Mode ?Normal ? Aotic Root: ? <3.8 ? LA: ? <3.8 ? RV: ? <2.8 ? LV(ED): ? <5.7 ? LV(ES): ? Variable ?2D Linear Normal ? Aotic Root: 2.5 cm ?<3.6 ? Ao Indexed: 1.4 cm/M2 <2.0 ? LA: ? 4.1 cm ?<3.8 ? RV: ? 2.4 cm ?<4.2 ? LV(ED): ? 5.1 cm ?<5.3 ? LV(ES): ? 3.7 cm ?<3.5 ?2D Vol. ?? Normal ?Indexed ?? Indexed Normal RA: ? 28.0 ml ? 15.2 ml/M2 ?9-33 ? LA: ? 39.0 ml ? 21.2 ml/M2 ?16-34 ? RV: ? <11.6 ? LV(ED): ? 114.0 ml ??46-106 ?61.9 ml/M2 ?<62 ? LV(ES): ? 42.0 ml ?? 14-42 ? 22.8 ml/M2 ?<25 ?3D Vol. ? Indexed Normal LV(ED): ?<62 ? LV(ES): ?<24 ? LV EF: 63 % ?? (Normal: >=54%) ?? LV Septum: 1.0 cm ?(Normal: <0.9 cm) Wall Motion Scoring (1=Normal 2=Hypo 3=Akinetic 4=Dyskin./Aneurysm 0=Not visualized) Parasternal Long [place]:MAS=1 BAS=1 MIL=1 BRENDA=1 Parasternal Short [place]:MAS=1 MIS=1 NH=1 MIL=1 MAL=1 MA=1 Apical 4 Chambers:=1 MIS=1 BIS=1 BAL=1 MAL=1 AL=1 AC=1 Apical 2 Chambers:AI=1 NH=1 BI=1 BA=1 MA=1 AA=1 AC=1 LV Global Longitudinal Strain: -17.7% ??(Normal <-17%) RV Global Longitudinal Strain: LV Function: Normal LV Ejection Fraction, ??(EF=54-74%) RV Function: Normal Septal Motion: Normal Pericardial Effusion: none seen Atrial Septum: Normal DOPPLER/COLOR FLOW DOPPLER RESULTS: Diastolic Function: Normal Tricuspid Valve: normal TV Pulmonic Valve: normal PV AV Regurgitation: No AR seen AV Stenosis: mild AV Area: 1.7 cm2 AV Pressure Gradient (mmHg): Mean: 7, Peak:13 MV Regurgitation: No MR seen MV Stenosis: no MS MV Area: ??cm2 MV Pressure Gradient (mmHg): Mean: 0 MV ERO: ??cm Regurg. Vol.: ??ml/beat Regurg. Frac.: ??% PA Pressure: ??mmHg DOPPLER/COLOR FOLOW DOPPLER COMMENTS: No AR seen, No MR seen, mild , no MS, normal TV, normal PV. Diastolic function: Normal CONTRAST: 1.1 ml Optison Administered, (1.9 ml wasted). SUMMARY: LA is normal. Normal RV cavity size. LV cavity size is mildly dilated. Normal LV wall thickness/mass. Normal Inferior vena cava. Normal aorta. ??No AR seen, No MR seen, mild , no MS, normal TV, normal PV. Diastolic function: Normal.LVEF 63%.Reduced global LV myocardial longitudinal function and strain pattern. Compared to an echo report from [facility] on 02/19/2022 , pt had severe LV systolic dysfunction, cath showed clean coronaries. pt EF has recovered , Wall motion improved suggestive of stress induced or reversible form of cardiomyopathy. Confirmed on ??06/02/2022 - 03:35:36 by Jeannie Swanson MD By signing this report, the attending substation designer certifies that he or she has personally supervised and interpreted the echocardiogram and has reviewed and or edited and agrees with the written comments contained within the report. Procedure Note Jeannie Swanson MD - 06/02/2022 Patient name: Chrissy Kilgore Date of test: 06/01/2022 Type of test: TTE w/Doppler [facility] #: [id number] Date of : 1970 (F) Lard Refiner: Eileen Avila RDCS Referring Physician: JEANNIE SWANSON MD Contrast Agent: 1.1 ml Optison Administered, (1.9 ml wasted). Contrast Administered by: Eileen Avila RDCS Supervised/Interpreted by: Jeannie Swanson MD Diagnosis: Location: [facility] Reason for test: Broken Heart Syndrome MV Structure: Normal, MV Motion: Normal, Mitral Annulus: Normal AV Structure: tricuspid and is mildly thickened, AV Motion: minimally restricted Aotic root: Normal, TM: Normal, PV: Normal Valvular Vegetations: none seen, Mass/Thrombi: none seen RA: Normal Measurements: M-Mode Normal Aotic Root: <3.8 LA: <3.8 RV: <2.8 LV(ED): <5.7 LV(ES): Variable 2D Linear Normal Aotic Root: 2.5 cm <3.6 Ao Indexed: 1.4 cm/M2 <2.0 LA: 4.1 cm <3.8 RV: 2.4 cm <4.2 LV(ED): 5.1 cm <5.3 LV(ES): 3.7 cm <3.5 2D Vol. Normal Indexed Indexed Normal RA: 28.0 ml 15.2 ml/M2 9-33 LA: 39.0 ml 21.2 ml/M2 16-34 RV: <11.6 LV(ED): 114.0 ml 46-106 61.9 ml/M2 <62 LV(ES): 42.0 ml 14-42 22.8 ml/M2 <25 3D Vol. Indexed Normal LV(ED): <62 LV(ES): <24 LV EF: 63 % (Normal: >=54%) LV Septum: 1.0 cm (Normal: <0.9 cm) Wall Motion Scoring (1=Normal 2=Hypo 3=Akinetic 4=Dyskin./Aneurysm 0=Not visualized) Parasternal Long [place]:MAS=1 BAS=1 MIL=1 BRENDA=1 Parasternal Short [place]:MAS=1 MIS=1 NH=1 MIL=1 MAL=1 MA=1 Apical 4 Chambers:=1 MIS=1 BIS=1 BAL=1 MAL=1 AL=1 AC=1 Apical 2 Chambers:AI=1 NH=1 BI=1 BA=1 MA=1 AA=1 AC=1 LV Global Longitudinal Strain: -17.7% (Normal <-17%) RV Global Longitudinal Strain: LV Function: Normal LV Ejection Fraction, (EF=54-74%) RV Function: Normal Septal Motion: Normal Pericardial Effusion: none seen Atrial Septum: Normal DOPPLER/COLOR FLOW DOPPLER RESULTS: Diastolic Function: Normal Tricuspid Valve: normal TV Pulmonic Valve: normal PV AV Regurgitation: No AR seen AV Stenosis: mild AV Area: 1.7 cm2 AV Pressure Gradient (mmHg): Mean: 7, Peak:13 MV Regurgitation: No MR seen MV Stenosis: no MS MV Area: cm2 MV Pressure Gradient (mmHg): Mean: 0 MV ERO: cm Regurg. Vol.: ml/beat Regurg. Frac.: % PA Pressure: mmHg DOPPLER/COLOR FOLOW DOPPLER COMMENTS: No AR seen, No MR seen, mild , no MS, normal TV, normal PV. Diastolic function: Normal CONTRAST: 1.1 ml Optison Administered, (1.9 ml wasted). SUMMARY: LA is normal. Normal RV cavity size. [...] stress induced or reversible form of cardiomyopathy. Confirmed on 06/02/2022 - 03:35:36 by Jeannie Swanson MD By signing this report, the attending substation designer certifies that he or she has personally supervised and interpreted the echocardiogram and has reviewed and or edited and agrees with the written comments contained within the report. us Jeannie Swanson MD CV ECHO PROCEDURES Final Resul t documented in this encounter Visit Diagnoses Diagnosis Broken heart syndrome Takotsubo syndrome Encounter to establish care with new doctor documented in this encounter Administered Medications Inactive Administered Medications - up to 3 most recent administrations Medication Order MAR Action Action Date Dose Rate Site perflutren protein-a (OPTISON) 3 mL in sodium chloride 0.9% 8 mL syringe 1-8 mL, intravenous, Once in imaging, contrast, Starting on Tue06/01/22 at 1529, For 1 dose, Intra-Procedure (CV) Contrast Given 06/01/2022 3:30 PM CDT 3 mL documented in this encounter Orders Medications Ordered That Sarabjit ht Not Have Been Administered Count Last Ordered Date First Ordered Date perflutren protein-a (OPTISO N) 3 mL in sodium chloride 0.9% 8 mL syringe 1 06/01/2022 documented in this encounter Care Teams Ehs Manager Relationship Specialty Start Date End Date Angeles Hernandez MD [address] [place] [address] Referring Physician Gynecology 07/21/21 documented as of this encounter
--- OUTSIDE RECORDS SUMMARY | 2024-09-03 19:36 | XMS_ITS | Encounter Summary ---
Author Organization [facility] Address [address] [place] [address] Phone Care Team Providers Care Frontend Engineer Name Role Phone Angeles Hernandez MD Unavailable [phone] Reason for Visit * Reason Onset Date Comments Medication Problem 05/12/2022 Spironolacton e vs. Entresto Encounter Details Date Type Department Care Team (Late st Contact Info) Description 05/12/2022 Telephone [facility] Cardiology [address] [facility] 8th [place] [address] [place] [address] Vasquez Schneider MD [address] [facility] [address] [place] [address] Medication Problem (Spironolactone vs. 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 PLEASE CALL [facility] IN [place], [place]. Called [facility] in [place], [place] and spoke with Eileen and confirmed with her that pt is okay to be on Entresto and Spironolactone as we are monitoring her K+ levels and she has pending lab draw next week. Called and spoke with pt confirming that we had called the pharmacy and confirmed with her that shewill be getting her labs drawn next week. * Telephone Encounter - Zena Red BS - 05/12/2022 1:02 PM CDT [facility] CALLING TO SAY THE PHARMACY SAID THERE IS POSSIBLE DRUG INTERACTION BETWEEN SPIRONOLACTONE AND ENTRESTO. PLEASE CALL [facility] IN [place], [place]. documented in this encounter Plan of Treatment Not on file documented as of this encounter Visit Diagnoses Not on filedocumented in this encounter Care Teams Frontend Engineer Relationship Specialty Start Date End Date Angeles Hernandez MD [address] [place] [address] Referring Physician Gynecology 07/21/21 documented as of this encounter
--- OUTSIDE RECORDS SUMMARY | 2024-09-03 19:36 | XMS_ITS | Encounter Summary ---
Author Organization [facility] Address [address] [place] [address] Phone Care Team Providers Care Depalletizer Operator Name Role Phone Angeles Hernandez MD Unavailable [phone] Jeff Guzman Primary Care Provider [phone] Reason for Referral * Diagnostic Imaging (Routine) - Closed Specialty Diagnoses / Procedures Referred By Contac t Referred To Contact Diagnoses Epiretinal membrane (ERM) of both eyes Procedures OCT, Retina - OU - Both Eyes Basilio Jay MD PhD [address] [address] Phone: tel: fax: [facility] (All Locations) Referral ID Status Reason Start Date Expiration Date Visits Re quested Visits Authorized [id number] Closed 01/11/2023 02/10/2024 1 1 Reason for Visit * Reason Comments ERM OU Encounter Details Date Type Department Care Team (Late st Contact Info) Description 01/11/2023 7:50 AM CDT Office Visit [facility] Ophthalmology [address] [place] [address] Health 6th [place] [address] Basilio Jay MD PhD [address] [address] Age-related nuclear cataract of right eye (Primary Dx); Epiretinal membrane (ERM) of both eyes; Vitreous syneresis of both eyes Social History [...] on file 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 Gender Identity Female 03/27/2020 5:01 PM CDT Sexual Orientation Lesbian 03/27/2020 5: 01 PM CDT documented as of this encounter Progress Notes * Basilio Jay MD PhD - 01/11/2023 7:50 AM CDT Assessment/Plan Diagnoses and all orders for this visit: Age-related nuclear cataract of right eye (Primary) Assessment & Plan: Her cups are also somewhat larger and IOP at high end of normal Epiretinal membrane (ERM) of both eyes Assessment & Plan: Not visually significant at this point Orders: - OCT, Retina - OU - Both Eyes Vitreous syneresis of both eyes Assessment & Plan: + extensive vitreous opacities peripherally OU Procedures Done Today OCT, Retina - OU - Both Eyes Right Eye Quality was good. Scan locations included subfoveal. Progression has been stable. Findings include macular pucker. Left Eye Quality was good. Scan locations included subfoveal. Progression has been stable. Findings include macular pucker. Plan For Next Visit Return N/a Dr Webster. documented in this encounter Miscellaneous Notes * Assessment & Plan Note - Basilio Jay MD PhD - 01/11/2023 8:42 AM CDTAssociated Problem(s): Pseudophakia of right eye Her cups are also somewhat larger and IOP at high end of normal * Assessment & Plan Note - Basilio Jay MD PhD - 01/11/2023 8:42 AM CDTAssociated Problem(s): Vitreous syneresis of both eyes + extensive vitreous opacities peripherally OU * Assessment & Plan Note - Basilio Jya MD PhD - 01/11/2023 8:41 AM CDTAssociated Problem(s): Epiretinal membrane (ERM) of both eyes Not visually significant at this point documented in this encounter Plan of Treatment Not on file documented as of this encounter Procedures Procedure Name Priority Date/Time Associated Diagnosis Comments OCT, RETINA - OU - BOTH EYES Routine 01/11/2023 8:43 AM CDT Epiretinal membrane (ERM) of both eyes documented in this encounter Results * OCT, Retina - OU - Both Eyes (01/11/2023 8:43 AM CDT) Anatomical Region Laterality Modality Head Optical Coherenc e Tomography Narrative 01/11/2023 8:43 AM CDT Right Eye Quality was good. Scan locations included subfoveal. Progression has been stable. Findings include macular pucker. Left Eye Quality was good. Scan locations included subfoveal. Progression has been stable. Findings include macular pucker. Basilio Jay MD PhD OPHTH TOMOGRAPHY F inal Result documented in this encounter Visit Diagnoses Diagnosis Age-related nuclear cataract of right eye- Primary Epiretinal membrane (ERM) of both eyes Vitreous syneresis of both eyes documented in this encounter Eye Exam Visual Acuity (Snellen - Linear) Right eye Left eye Dist cc 20/25 20/25 Correction: Glasses Tonometry (Tonopen, 8:17 AM) Right eye Left eye Pressure 21 22 Pupils Dark Light Shape React APD Right eye 6 4 Round Brisk None Left eye 6 4 Round Brisk None Visual Phillips (Counting fingers) Right eye Left eye Full Full Extraocular Movement Right eye Left eye Full Full Neuro/Psych Oriented x3: Yes Mood/Affect: Normal Dilation Both eyes: 1.0% Mydriacyl @ 8:18 AM External Exam Right eye Left eye External Normal Normal Slit Lamp Exam Right eye Left eye Lids/Lashes Normal Normal Conjunctiva/Sclera White and quiet White and leland et Cornea Clear Clear Anterior Chamber Deep and quiet Deep and quiet Iris Round and reactive Round and saran ctive Lens 2+ Nuclear sclerosis Posterior c hamber intraocular lens Fundus Exam Right eye Left eye Macula Peripapillary atroph y, Epiretinal membrane Epiretinal membrane, Peripapillary atrophy Care Teams Depalletizer Operator Relationship Specialty Start Date End Date Jeff Guzman PA [address] [place] [address] PCP - General Family Medicine 06/21/22 02/17/23 Angeles Hernandez MD [address] [place] [address] Referring Physician Gynecology 07/21/21 documented as of this encounter
--- OUTSIDE RECORDS SUMMARY | 2024-09-03 19:36 | XMS_ITS | Encounter Summary ---
Author Organization [facility] Address [address] [place] [address] Phone Care Team Providers Care Flight Surgeon Name Role Phone Angeles Hernandez MD Unavailable [phone] Ramonita Crawford NP Primary Care Provider Reason for Visit * Diagnostic Imaging (Routine) - Closed Specialty Diagnoses / Procedures Referred By Sharlene t Referred To Contact Diagnoses Vitreous syneresis of both eyes Procedures OCT, Retina - OU - Both Eyes Mary Ann Webster MD [address] [place] [address] Phone: tel: fax: [facility] (All Locations) Referral ID Status Reason Start Date Expiration Date Visits Re quested Visits Authorized [id number] Closed 03/16/2023 04/14/2024 1 1 Encounter Details Date Type Department Care Team (Late st Contact Info) Description 05/20/2023 8:20 AM CDT Imaging Exam [facility] Ophthalmology [facility] Outpatient Health 6th [place] [phone] Vitreous syneresis of both eyes Social History [...] often do you attend chur ch or uatsdin services? Never 05/10/2023 Do you belong to any clubs o r organizations such as voodoo groups, unions, fraternal or athletic groups, or [...] place to sleep or slept in a alf (including now)? No 05/10/2023 Comments No Sex and Gender Information Value Date Recorded Sex Assigned at Not on file 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 Gender Identity Female 03/27/2020 5:01 PM CDT Sexual Orientation Lesbian 03/27/2020 5: 01 PM CDT documented as of this encounter Plan of Treatment Not on file documented as of this encounter Procedures Procedure Name Priority Date/Time Associated Diagnosis Comments OCT, RETINA - OU - BOTH EYES Routine 05/20/2023 8:31 AM CDT Vitreous syneresis of both eyes documented in this encounter Results * OCT, Retina - OU - Both Eyes (05/20/2023 8:31 AM CDT) Anatomical Region Laterality Modality Head Other Narrative 05/20/2023 9:26 AM CDT Right Eye Quality was good. Left Eye Quality was good. Notes Right eye (OD): mild epiretinal membrane (ERM) Left eye (OS): moderate epiretinal membrane (ERM) Mary Ann Webster MD OPHTH TOMOGRAPHY Edited Resul t - Final documented in this encounter Visit Diagnoses Diagnosis Vitreous syneresis of both eyes documented in this encounter Care Teams Flight Surgeon Relationship Specialty Start Date End Date Ramonita Crawford NP [address] [place] [address] PCP - General Family Medicine 02/18/23 Angeles Hernandez MD [address] [address] Referring Physician Gynecology 07/21/21 documented as of this encounter
--- OUTSIDE RECORDS SUMMARY | 2024-09-03 19:36 | XMS_ITS | Encounter Summary ---
Author Organization [facility] Address [address] [place] [address] Phone Care Team Providers Care Nail Welter Name Role Phone Angeles Hernandez MD Unavailable [phone] Reason for Referral * MRI/CAT/PET Scan (Routine) - Closed Specialty Diagnoses / Procedures Referred By Contac t Referred To Contact Radiology Diagnoses Family history of breast cancer Procedures MRI Breast Bilateral W WO Contrast Rachel Kay MD [address] [place] [address] Phone: tel: fax: [address] [phone] Referral ID Status Reason Start Date Expiration Date Visits Re quested Visits Authorized [id number] Closed 05/18/2022 06/17/2023 1 1 * Diagnostic Imaging (Routine) - Closed Specialty Diagnoses / Procedures Referred By Contac t Referred To Contact Diagnoses Atypical lobular hyperplasia (ALH) of left breast Family history of breast cancer Breast pain, left Procedures US Breast Left Limited Rachel Kay MD [address] [place] [address] Phone: tel: fax: [facility] [id number] [place] [phone] Referral ID Status Reason Start Date Expiration Date Visits Re quested Visits Authorized [id number] Closed 05/18/2022 06/17/2023 1 1 Reason for Visit * Reason Comments Follow-up * Consultation (Routine) - Canceled Specialty Diagnoses / Procedures Referred By Sharlene t Referred To Contact Oncology Diagnoses Family history of breast cancer Rachel Kay MD [address] [place] [address] Phone: tel: fax: Rachel Kay MD [address] [place] [address] Phone: tel: fax: Referral ID Status Reason Start Date Expiration Date Visits Requested Visits Authorized [id number] Canceled Specialty Services Required 02/02/2022 08/21/2023 99 99 Encounter Details Date Type Department Care Team (Late st Contact Info) Description 05/18/2022 9:40 AM CDT Office Visit [facility] [address] [place] [address] Rachel Kay MD [address] [place] [address] Atypical lobular hyperplasia (ALH) of left breast (Primary Dx); Breast cancer screening, high risk patient; Encounter for screening mammogram for breast cancer; Family history of breast cancer; Breast pain, left Social History Tobacco Use Types Packs/Day Years [...] on file 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 Gender Identity Female 03/27/2020 5:01 PM CDT Sexual Orientation Lesbian 03/27/2020 5: 01 PM CDT documented as of this encounter Last Filed Vital Signs Vital Sign Reading Time Taken Comments Blood Pressure 135/89 05/18/2022 9:21 AM CDT Pulse 62 05/18/2022 9:21 AM CDT Temperature 36.6 ??C (97.9 ??F) 05/18/2022 9:21 AM CD T Respiratory Rate 20 05/18/2022 9:21 AM CDT Oxygen Saturation 97% 05/18/2022 9:21 AM CDT Inhaled Oxygen Concentration - - Weight 76.7 kg (169 lb 3.2 oz) 05/18/2022 9:21 A M CDT Height - - Body Mass Index 27.32 05/11/2022 8:28 AM CDT documented in this encounter Progress Notes * Rachel Kay MD - 05/18/2022 9:40 AM CDT Images from the original note were not included. Destini is followed for high risk status. I previously calculated her lifetime breast cancer risk of 28-33%. She also has an elevated 5 year breast cancer risk in started raloxifene 08/05/21. In the past she was followed at [facility] for high risk status. In their clinic note dated 07/05/2016, Destini has a history of the left breast core followed by excisional biopsy 03/15/2013 that revealed PASH; surgical pathology revealed focal ALH. She was started on tamoxifen soon after this was discontinued after a few doses for a rash. She was on a high risk screening program. Since I last saw her she was diagnosed with nonischemic cardiomyopathy with severe LV systolic dysfunction. She is followed by cardiology and she reports that she will likely need a pacemaker. In November 2021 she was noted to have a dilated common bile duct and underwent ERCP, where they found an obstructionsdue to sludge and likely stones. Cardiology stopped her raloxifene (which I would recommend as well) Now hot flashes-- worse off the medication Risk assessment data: First parity 29 Menarche: 12. Postmenopausal starting at age 49. LMP 06/27/21 after 2 years without a cycle. Hot flashes. Recent D&C reportedly showed a benign polyp. She has had a unilateral oophorectomy (left, for cysts). OCP use: Former user HRT use: Never user History of benign breast biopsies (left axillary benign lymph nodes, [facility] 01/2013) Past medical history: Patient Active Problem List Diagnosis Visual disturbance Age-related nuclear cataract of right eye PCO (posterior capsular opacification), left Epiretinal membrane (ERM) of both eyes Vitreous syneresis of both eyes COVID-19 Hypercholesteremia Benign essential HTN Atypical lobular hyperplasia (ALH) of left breast Family history of breast cancer Breast cancer screening, high risk patient Encounter for screening mammogram for breast cancer Past Medical History: Diagnosis Date Asthma Brain concussion [id number] Depression [id number] Epiretinal membrane (ERM), bilateral GERD (gastroesophageal reflux disease) Hypercholesteremia Hypertension Irritable bowel syndrome Kidney stone 844309 Menstrual problem [id number] Migraines [id number] Peptic ulceration 0101?? 1 Past surgical history: Past Surgical History: Procedure Laterality Date APPENDECTOMY BREAST SURGERY CATARACT EXTRACTION 086640 CHOLECYSTECTOMY 010657 COLON SURGERY 083166 COLONOSCOPY DILATION AND CURETTAGE OF UTERUS GALLBLADDER SURGERY OOPHORECTOMY OVARY SURGERY SMALL INTESTINE SURGERY 0101?? 1 Social history: Social History Tobacco Use Smoking status: Never Smoker Smokeless tobacco: Never Used Substance Use Topics Alcohol use: Never Allergies: Allergies Allergen Reactions Penicillins Hives and Anaphylaxis Anaphylaxis Tamoxifen Hives Atorvastatin Joint pain Medications: Current Outpatient Medications: albuterol, 2 puff, inhalation, Q6H PRN albuterol, 2.5 mg, nebulization, Q6H PRN cetirizine, 10 mg, oral, Daily EPINEPHrine, 1 Syringe, intramuscular, PRN fluticasone propionate, SHAKE LIQUID AND USE 1 SPRAY IN EACH NOSTRIL DAILY NEEDED FOR NASAL CONGESTION ibuprofen, 1 tablet, oral, Q6H PRN metoprolol XL, TAKE 1 TABLET(25 MG) BY MOUTH DAILY pantoprazole DR, TAKE 1 TABLET(40 MG) BY MOUTH DAILY rosuvastatin, 5 mg, oral, Daily tiZANidine, 4 mg, oral, Q8H PRN traMADoL, TAKE 1 TABLET(50 MG) BY MOUTH EVERY 8 HOURS NEEDED FOR PAIN hydrOXYzine, 25 mg, oral, TID montelukast, 10 mg, oral, Nightly Family history of cancer: Children: Daughter Georgina is 21, Andrea was born in 2006 Mother: breast cancer, diagnosed at 47 . at age 48 due to cancer. No genetic testing. Father: rare esophageal cancer, diagnosed at ? . Alive. He was an only child and raised by relatives other than his parents, so no info about his family's health history. Sister(s): 0 of 0 N/A. N/A. Brother(s): 2 of 2 no cancer. Alive, age 48 and 43 . Their kids are healthy. Maternal aunt(s): 1 of 1 no cancer. , unknown COD. She had 3 kids; 2 are still alive. Maternal uncle(s): 1 of 2 pancreatic cancer, diagnosed at 70-something . Recent diagnosis and he (Claudio) is alive. He refused genetic testing. 2 sons, a/w. The other uncle, Ender, has no kids. Destini's mom had other siblings, but and unknown to Destini, so no info. She doesn't communicate much with her family. Maternal grandmother: no cancer. . Maternal grandfather: no cancer . Maternal ethnicity: ; no Ashkenazi Rastafari. Paternal ethnicity: Indonesian Scanned pedigree 08/05/21 Review of systems: Review of Systems Constitutional: Positive for activity change and fatigue. Exam Vitals BP 126/73 (BP Location: Left arm) Pulse (!) 46 Temp 36.7 ??C (98 ??F) (Oral) Resp 16 Ht 167.6 cm (5' 6 ) Wt 89.3 kg (196 lb 12.8 oz) SpO2 98% BMI 31.76 kg/m?? Body mass index is 31.76 kg/m??. Physical Exam Constitutional: Appearance: She is well-developed. HENT: Head: Normocephalic and atraumatic. Eyes: General: No scleral icterus. Conjunctiva/sclera: Conjunctivae normal. Neck: Thyroid: No thyromegaly. Pulmonary: Effort: Pulmonary effort is normal. No respiratory distress. Breath sounds: Normal breath sounds. No stridor. Chest: Breasts: Breasts are symmetrical. Right: No inverted nipple, mass, nipple discharge, skin change or tenderness. Left: No inverted nipple, mass, nipple discharge, skin change or tenderness. Abdominal: Palpations: Abdomen is soft. Tenderness: There is no guarding. Musculoskeletal: General: No deformity. Normal range of motion. Cervical back: Normal range of motion and neck supple. Lymphadenopathy: Cervical: No cervical adenopathy. Upper Body: Right upper body: No supraclavicular or axillary adenopathy. Left upper body: No supraclavicular or axillary adenopathy. Skin: General: Skin is warm and dry. Findings: No erythema or rash. Neurological: Mental Status: She is alert and oriented to person, place, and time. Psychiatric: Behavior: Behavior normal. Thought Content: Thought content normal. Judgment: Judgment normal. Imaging/data review: Breast imaging Breast MRI 12/16/2012 done at [facility] and showing bilateral masses. Comparison to priors and US recommended. Left breast US 01/30/13, BI-RADS category 4A. In the left breast, a non parallel solid mass was seenmeasuring up to 9 mm in the subareolar breast at 1 o'clock. Another 9 mm solid mass was seen in the2 o'clock position, 3 CMFN. An oval parallel complicated cyst was seen measuring 11 mm in the left breast at 3 o'clock, 3 CMFN. A simple cyst measuring 13 mm was seen in the left breast at 10 o'clock, 3 CMFN. Biopsy was recommended for the 1st lesion, six-month follow-up for the 2nd and 3rd lesions. 01/30/13 pathology from the 1 o'clock lesion revealed fibrocystic change including mild epithelial ductal hyperplasia, a print metaplasia, microcysts, and PASH. She then underwent excision--results be low. Screening mammography at [facility] 07/06/16, BI-RADS 2 for bilateral masses. Scattered fibroglandular densities. bilateral screening mammography 12/10/20 at [facility]. BI-RADS 2. No priors were available. Multiple bilateral masses c/w a benign entity were noted. Scattered densities. Breast MRI 10/06/21, BI-RADS 2. All findings were stable for over 2 years. Bilateral screening mammography 05/18/22, BI-RADS 2. Scattered densities. Stable masses.I independently reviewed these images and discussed them with the patient. To my review, there are no suspiciousfindings. She does have visible lymph nodes in the left axilla on the MLO view, enlarged but almostentirely fatty Other imaging reports and data reviewed: Office records from [facility] in Care Everywhere and scanned 07/05/16 and before including left breast excisional biopsy path 03/15/13 showing an 8 mm fibroadenoma with ADH, focal ALH, a small radial scar with florid UDH CMP 10/05/20 showing a K of 3.3, alk phos of 181, ALT 90, AST 36 records/office visit notes from Dr. Lynch and Jeff Guzman () back to 11/21/20. records/office visit notes from Dr. Hernandez (02/04/21) . CMP 03/11/21 normal other than a calcium of 10.6 CBC 03/11/21 WNL Lipid panel 05/28/21 showing a TC 294 (down from 380), TG 214, HDL 72, LDL 179 (down from 271) Brain CT scan 06/18/2021, normal. Genetic testing sent 09/03/21 showing 2 VUSs: PTCH1 c.134C>G (p.Nez55Xal, subsequently downgradedto likely benign) and SMARCA4 [id number] (intronic). CT CAP 12/16/21 showed mild intrahepatic biliary ductal dilatation and a 1.4 cm common duct, recommend correlation with liver function tests and consider MRCP Office notes from Cardiology, family Medicine Risk Assessment: As of 08/05/21 Benjie mac lifetime risk 23-27% (28-33% without competing mortality) (depending on inclusion of her single focus of atypia) Benjie Roa est 10 year risk 9% [place] estimated 5-year risk is 5.7%. Assessment/Plan: Elevated lifetime breast cancer risk We recommend annual breast MRI for women whose lifetime risk is > 20% , so she is eligible. If she does ultimately need a pacemaker, she will not be able to have MRI, even if the pacemaker itself is MRI compatible. The presence of the pacemaker limits the utility of MRI. In that situation, we will change our screening plan to annual CEDM. She is aware that that would need to be done on the main campus. We will go ahead and tentatively schedule her September MRI, knowing that we can cancel it depending on the plan. Elevated 5 year risk of breast cancer or ER+ DCIS Eligible for endocrine prophylaxis She took raloxifene briefly, but stopped at this summer when she developed these cardiac issues. Absolutely agree with that. At this point in time, given everything she has going on, I would not recommend any additional therapy. We will continue to monitor her closely. Focal left breast pain We discussed that there is almost never and identified etiology, but given that this is a new, focal, and fairly pronounced, I do think a focused US is worthwhile. She agrees. At risk for hereditary cancer; candidate for genetic testing Uninformative essentially negative panel testing Last appt 05/18/22 Return to clinic: Sep 2022 with MRI (will cancel this if we need to cancel the MRI) Last mammogram 05/18/22 Mammogram due Apr 2023 (screening v CEDM) Last MRI 10/06/21 MRI due Sep 2022 unless has pacemaker placed I encouraged Chrissy Georges , who seems happy with this plan, to contact me with any questions or concerns, and all questions were answered to the best of my ability. My total encounter time on 05/18/22 was 30 minutes which was spent in the activities documented in the note. This includes time spent prior to the visit and after the visit in direct care of the patient. This time does not include time spent in any separately reportable services. Rachel Kay MD, FACS Medical Oncology [facility] documented in this encounter Plan of Treatment Not on file documented as of this encounter Results * MRI Breast Bilateral W WO Contrast (10/25/2022 12:53 PM COURSE INSTRUCTOR) Anatomical Region Laterality Modality Breast Bilateral Magnetic Resonan ce 10/25/2022 12:2 9 PM COURSE INSTRUCTOR Impressions 10/25/2022 12:35 PM COURSE INSTRUCTOR 1. ?? No MRI evidence of malignancy. Given the patient's elevated estimated lifetime risk of breast cancer, annual screening mammography and annual screening breast MRI is recommended. ASSESSMENT: BIRADS: 2 - BENIGN. ?? THIS IS AN ELECTRONICALLY VERIFIED FINAL REPORT 10/25/2022 12:35 PM - Electronically signed by ??Jules Reeves M.D. RL: RL D: ??10/25/2022 12:35 PM T: ??10/25/2022 12:35 PM Report ID: [id number] Reading Location: ??[facility] Narrative 10/25/2022 12:35 PM COURSE INSTRUCTOR EXAM DESCRIPTION: ?? MRI BREAST BILATERAL W [...] coil. The images were reviewed on an [employer] work station and underwent CAD analysis. FINDINGS: [...] appearance on limited evaluation. Rachel Kay MD IMG MRI PROCEDURES Final Re sult * US Breast Left Limited (07/23/2022 1:20 PM COURSE INSTRUCTOR) Anatomical Region Laterality Modality Breast Left Ultrasound 07/23/2022 1:27 PM COURSE INSTRUCTOR Impressions 07/23/2022 1:27 PM COURSE INSTRUCTOR No evidence of malignancy in the left breast. OVERALL FINAL ASSESSMENT: BI-RADS Category 2: Benign. RECOMMENDATION: Annual screening mammography is recommended. Electronically signed by: Mary Blevins M.D. Narrative 07/23/2022 1:27 PM COURSE INSTRUCTOR EXAMINATION: LEFT UNILATERAL DIGITAL DIAGNOSTIC MAMMOGRAM AND DIGITAL BREAST TOMOSYNTHESIS and Limited ultrasound of the left breast HISTORY: Palpable lump left axilla for one month COMPARISON: 05/18/2022to 12/10/2020 outside exam TECHNIQUE: ?? Full field digital mammographic views of the LEFT breast were performed, including computer aided detection (CAD) and digital breast tomosynthesis (DBT). BREAST PARENCHYMAL COMPOSITION: The breasts are almost entirely fatty. MAMMOGRAM FINDINGS: There is no new suspicious abnormality in the LEFT breast; the appearance of the breast is stable compared to prior exams. ??Multiple stable nodules and benign calcifications are seen. ??In the area of palpable abnormality in the axilla there are multiple stable lymph nodes without any change. Limited ultrasound of the left breast Real-time examination of the left breast is performed in the area of pain and palpable lump at axillary tail portion of the breast. There is no evidence of solid or a cystic mass. Multiple slightly prominent thin cortex lymph nodes are seen. ??The largest one measures 1.9 cm x 0.9 cm x 2.1 cm suggest follow-up yearly mammogram. Findings were discussed with the patient after completion of the exam. Rachel Kay MD IMG MAMMO PROCEDURES Final Result documented in this encounter Visit Diagnoses Diagnosis Atypical lobular hyperplasia (ALH) of left breast- Primary Breast cancer screening, high risk patient Screening mammogram for high-risk patient Encounter for screening mammogram for breast cancer Family history of breast cancer Family history of malignant neoplasm of breast Breast pain, left Atypical lobular hyperplasia (ALH) of left breast Family history of breast cancer Family history of malignant neoplasm of breast Breast pain, left Family history of breast cancer Family history of malignant neoplasm of breast documented in this encounter Care Teams Nail Welter Relationship Specialty Start Date End Date Angeles Hernandez MD 2022 [address] [address] Referring Physician Gynecology 07/21/21 documented as of this encounter
--- OUTSIDE RECORDS SUMMARY | 2024-09-03 19:36 | XMS_ITS | Encounter Summary ---
Author Organization [facility] Healthcare Address [address] [place] [address] Care Team Providers Care Warp Tying Machine Tender Name Role Phone Angeles Hernandez MD Unavailable [phone] Ramonita Crawford NP Primary Care Provider Reason for Visit * Auth/Cert (Routine) Specialty Diagnoses / Procedures Referred By Contac t Referred To Contact Diagnoses Right upper quadrant pain Nausea Abnormal findings on dx imaging of prt digestive tract Right upper quadrant pain [R10.11] Nausea [R11.0] Abnormal findings on dx imaging of prt digestive tract [R93.3] Procedures ERCP; Admit to [facility] Referral ID Status Reason Start Date Expiration Date Visits Re quested Visits Authorized [id number] 1 1 Encounter Details Date Type Department Care Team (Late st Contact Info) Description 05/09/2023 9:56 AM CDT Anesthesia Event [facility] [address] [place] [address] Javier Castanon DO [address] [place] [address] Anesthesia Record Procedure Summary Procedure Name Responsible Anesthesiologist Anesthesia Start Time Anesthesia Stop Time ENDO ENDOSCOPIC RETROGRADE CHOLANGIOPANCREATOGRAPHY WITH STENT PLACEMENT Javier Castanon DO 05/09/23 0956 05/09/23 1032 Events Date Time Event Comment 05/09/2023 0858 0956 In Room 0956 An Start 0956 An Start Data 1001 Patient Positioned Prone 1001 Quick Note Medium supernov a applied. Poor EtCO2 waveform, +reservoir bag movement with spontaneous respirations. 1002 Bite Block Placed 1002 An Induction The patient was reevaluated immediately before moderate or deep sedation use and before anesthesia induction. 1005 Anesthesia Ready 1006 Proc Start 1021 Proc Fin 1025 an stop data 1026 Out of Room 1032 Handoff to RN I completed my handoff [...] the time of handoff: No value filed. 1032 An Stop Meds Name Total propofol 150 mg propofol 183.6 mg fentaNYL 100 mcg ondansetron 4 mg levoFLOXacin (LEVAQUIN) 500 mg/100 mL in dextrose 5% (premix) 500 mg 0 mg glucagon 0.5 mg Lactated Ringer's (LR) infusion 400 mL * Agents Name O2 * Blood No [...] 05/10/2023 How often do you attend chur [employer] or judaism services? Never 05/10/2023 Do you belong to any clubs o r organizations such as hoahaoism groups, unions, fraternal or athletic groups, or [...] place to sleep or slept in a jail (including now)? 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 Gender Identity Female 03/27/2020 5:01 PM CDT Sexual Orientation Lesbian 03/27/2020 5: 01 PM CDT documented as of this encounter OR Notes * Anesthesia Postprocedure Evaluation - Estefani Masters CRNA - 05/09/2023 10:33 AM CDT Patient: Chrissy Kilgore Procedure Summary Date: 05/09/23 Room / Location: [place] [address] / [facility] END[facility]COPY Anesthesia Start: 955 Anesthesia Stop: 1031 Procedures: ENDO ENDOSCOPIC RETROGRADE CHOLANGIOPANCREATOGRAPHY WITH STENT PLACEMENT ENDO ADD ON ENDOSCOPIC RETROGRADE CHOLANGIOPANCREATOGRAPHY WITH STENT PLACEMENT Diagnosis: Right upper quadrant pain Nausea Abnormal findings on dx imaging of prt digestive tract (Right upper quadrant pain [R10.11]) (Nausea [R11.0]) (Abnormal findings on dx imaging of prt digestive tract [R93.3]) Providers: Jordan Duff MD Responsible Provider: Javier Castanon DO Anesthesia Type: general TIVA ASA Status: 2 Anesthesia Type: general TIVA Last vitals BP 134/77 Pulse 84 Temp (!) -13.7 ??C (7.4 ??F) (Temporal) Resp 14 SpO2 95% Anesthesia Post Evaluation Patient location: GI recovery area. Patient participation: complete - patient participated Level of consciousness: follows simple commands and fully awake Pain management: adequate Airway patency: adequate Cardiovascular status: acceptable Respiratory status: acceptable Hydration status: acceptable Pt is: normothermic Nausea/Vomiting status: none No notable events documented. * Anesthesia Preprocedure Evaluation - Javier Castanon DO - 05/09/2023 8:58 AM CDT Images from the original note were not included. Anesthesia Evaluation Chrissy Kilgore is a 52 y.o. female Procedure(s): ERCP Admit to [facility] Pre-Op Diagnosis Codes: * Right upper quadrant pain [R10.11] * Nausea [R11.0] * Abnormal findings on dx imaging of prt digestive tract [R93.3] HISTORY Past Medical History Neurological + Psychiatric history - anxiety Cardiovascular + CHF (Resolved) Comments: 2021: [place] is [...] stress induced or reversible form of cardiomyopathy. Patient Active Problem List Diagnosis Visual disturbance [...] mood CVA (cerebral vascular accident) (HCC) Encephalopathy Past Medical History: Diagnosis Date Arthritis Asthma Brain concussion 1608439 Cardiomyopathy (HCC) Cataract Cholelithiasis Depression [id number] Epiretinal membrane (ERM), bilateral GERD (gastroesophageal reflux [...] itching Latex Hives and Urticaria Tamoxifen Hives Taking? Last Dose Start Date End Date [...] 6 (six) hours as needed for wheezing LORazepam (ATIVAN) 0.5 mg tablet -- 01/28/23 -- Jeff Guzman PA TAKE 1 TABLET(0.5 MG) BY MOUTH EVERY NIGHT montelukast (SINGULAIR) 10 mg tablet -- 08/27/22 [...] 8 (eight) hours as needed for pain Current Facility-Administered Medications: levoFLOXacin (LEVAQUIN) 500 mg/100 mL in dextrose 5% (premix) 500 mg, 500 mg, intravenous, Once sodium chloride 0.9% infusion, 30 mL/hr, intravenous, Continuous Social History Tobacco Use Smoking Status Never [...] Neg Hx Thyroid cancer Neg Hx Vitals: 05/09/23 0857 BP: 143/90 Pulse: 69 Resp: 11 Temp: (!) -13.7 ??C (7.4 ??F) SpO2: 100% PT: No results found for requested labs within last 30 days. INR: No results found for requested labs within last 30 days. APTT: No results found for requested labs within last 30 days. Hgb A1C: No results found for requested labs within last 30 days. CBC RBC: No results found for requested labs within last 30 days. RDW: No results found for requested labs within last 30 days. MCHC: No results found for requested labs within last 30 days. MCH: No results found for requested labs within last 30 days. MCV: No results found for requested labs within last 30 days. Hct: No results found for requested labs within last 30 days. Hgb: No results found for requested labs within last 30 days. WBC: No results found for requested labs within last 30 days. MPV: No results found for requested labs within last 30 days. Platelets: No results found for requested labs within last 30 days. RDW CV: No results found for requested labs within last 30 days. RDW Sd: No results found for requested labs within last 30 days. BMP Glucose: No results found for requested [...] and allergies reviewed. Attestation: This PAT evaluation 05/09/2023. Airway Exam: Mallampati: II Cervical ROM: FROM TM distance: normal Cardiovascular Exam: Rate: regular Rhythm: regular Negative for Murmur Pulmonary Exam: LCTA, bilat EENT Exam: trachea midline Dental Exam: Appears intact Current state: Patient's current state is cooperative and interactive. Anesthesia Plan ASA 2 My patient is approved for the Anesthesia Controlled Medication protocol when under care of a BALE SEWER Planned anesthesia: General TIVA Induction: Induction: intravenous. Postoperative Plan: No plan for postoperative opioid use. Patient's planned disposition post procedure is Outpatient. Informed Consent: Anesthesia plan and risks discussed with patient. Consent and Attending signature: I and/or my [...] free injection intravenous, As needed, Starting on Tue05/09/23 at 1008, Anesthesia Intra-op Given 05/09/2023 10:20 AM CDT 25 mcg Given 05/09/2023 10:16 AM CDT 25 mcg Given 05/09/2023 10:01 AM CDT 50 mcg glucagon injection intravenous, Administer over 1 Minutes, As needed, Starting on Tue05/09/23 at 1014, Anesthesia Intra-op Given 05/09/2023 10:14 AM CDT 0.5 mg Lactated Ringer's (LR) infusion 30 mL/hr, intravenous, Continuous, Starting on Tue05/09/23 at 0945 Rate/Dose Verify 05/09/2023 9:56 AM CDT 30 mL/hr New Bag 05/09/2023 9:11 AM CDT 30 mL/hr 30 mL/hr ondansetron (ZOFRAN) injection intravenous, Administer over 2 Minutes, As needed, Starting on Tue05/09/23 at 1004, Anesthesia Intra-op Given 05/09/2023 10:04 AM CDT 4 mg propofoL (DIPRIVAN) 10 mg/mL IV intravenous, As needed, Starting on Tue05/09/23 at 1002, Anesthesia Intra-op Given 05/09/2023 10:02 AM CDT 150 mg propofoL (DIPRIVAN) 10 mg/mL IV intravenous, Continuous PRN, Starting on Tue05/09/23 at 1005, Anesthesia Intra-op New Bag 05/09/2023 10:05 AM CDT 150 mcg/kg/min 73.44 mL/hr documented in this encounter Care Teams Warp Tying Machine Tender Relationship Specialty Start Date End Date Ramonita Crawford NP [address] [address] PCP - General Family Medicine 02/18/23 Angeles Hernandez MD [address] [address] Referring Physician Gynecology 07/21/21 documented as of this encounter
--- OUTSIDE RECORDS SUMMARY | 2024-09-03 19:36 | XMS_ITS | Encounter Summary ---
Author Organization [facility] Address [address] [place] [address] Care Team Providers Care Coat Fitter Name Role Phone Angeles Hernandez MD Unavailable [phone] Jeff Guzman Primary Care Provider [phone] Reason for Visit * Reason Onset Date Comments Prior Auth 01/07/2023 Tramadol Encounter Details Date Type Department Care Team ([facility] Contact Info) Description 01/07/[address] 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 Spoke with Thom and they explain why and told me to resubmit with the correct ans. So I resubmitted PA form to Thom. documented in this encounter Plan of Treatment Not on file documented as of this encounter Visit Diagnoses Not on filedocumented in this encounter Care Teams Coat Fitter Relationship Specialty Start Date End Date Jeff Guzman PA [address] [place] [address] PCP - General Family Medicine 06/21/22 02/17/23 Angeles Hernandez MD [address] [place], [place] [id number] Referring Physician Gynecology 07/21/21 documented as of this encounter
--- OUTSIDE RECORDS SUMMARY | 2024-09-03 19:36 | XMS_ITS | Encounter Summary ---
Author Organization [facility] Medical [facility] Address [address] [place] [address] Care Team Providers Care Dna Sequencing Associate Name Role Phone Angeles Hernandez MD Unavailable [phone] Reason for Visit * Reason Comments Pain Gen arthritis pain a nd stiffness Encounter Details Date Type Department Care Team (Latest Contact Info) Description 06/03/2022 10:00 AM CDT Office Visit [facility] Family Medicine at [address] [place] [address] Brijesh Lynch MD [address] [place] [address] [address] [place] [address] Mild intermittent asthma without complication (Primary Dx); Gastroesophageal reflux disease without esophagitis; Dyslipidemia with elevated low density lipoprotein (LDL) cholesterol and abnormally low high density lipoprotein cholesterol; XENA (generalized anxiety disorder); Primary osteoarthritis of right knee Social History Tobacco Use Types Packs/Day Years [...] on file 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 Gender Identity Female 03/27/2020 5:01 PM CDT Sexual Orientation Lesbian 03/27/2020 5: 01 PM CDT documented as of this encounter Last Filed Vital Signs Vital Sign Reading Time Taken Comments Blood Pressure 112/80 06/03/2022 11:08 AM CDT Pulse 65 06/03/2022 11:08 AM CDT Temperature 36.5 ??C (97.7 ??F) 06/03/2022 11:08 AM C DT Respiratory Rate 18 06/03/2022 11:08 AM CDT Oxygen Saturation 99% 06/03/2022 11:08 AM CDT Inhaled Oxygen Concentration - - Weight 79.4 kg (175 lb) 06/03/2022 11:08 AM CDT Height - - Body Mass Index 28.26 06/01/2022 3:32 PM CDT documented in this encounter Progress Notes * Brijesh Lnych MD - 06/03/2022 10:00 AM CDT Images from the original note were not included. Subjective/Objective Patient ID: Chrissy Kilgore is a 51 y.o. female. Visit Date: 06/03/2022 Chief Complaint Pain (Gen arthritis pain and stiffness) HPI Returns to the office for repeat evaluation. States that she has the arthritis pain the allergies are under control and the asthma is udner control hte htn is under control and the chf and the anxiety is under control Review of Systems Constitutional: Negative for activity change. HENT: Negative for congestion. Eyes: Negative for visual disturbance. Respiratory: Negative for cough and chest tightness. Cardiovascular: Negative for chest pain and leg swelling. Gastrointestinal: Negative for abdominal pain, blood in stool, constipation, diarrhea and nausea. Genitourinary: Negative for difficulty urinating. Musculoskeletal: Positive for arthralgias. Negative for back pain and gait problem. Skin: Negative for rash. Neurological: Negative for headaches. Psychiatric/Behavioral: Negative for sleep disturbance. The patient is not nervous/anxious. Physical Exam Vitals reviewed. Constitutional: General: She is not in acute distress. Appearance: She is well-developed. HENT: Head: Normocephalic. Right Ear: External ear normal. Left Ear: External ear normal. Eyes: Conjunctiva/sclera: Conjunctivae normal. Pupils: Pupils are equal, round, and reactive to light. Neck: Thyroid: No thyromegaly. Comments: ROM appropriate Cardiovascular: Rate and Rhythm: Normal rate and regular rhythm. Heart sounds: Normal heart sounds. No murmur heard. No friction rub. No gallop. Pulmonary: Effort: Pulmonary effort is normal. Breath sounds: Normal breath sounds. Abdominal: General: Bowel sounds are normal. There is no distension. Palpations: Abdomen is soft. Tenderness: There is no abdominal tenderness. Musculoskeletal: Cervical back: Neck supple. Comments: ROM appropriate Skin: General: Skin is warm and dry. Capillary Refill: Capillary refill takes less than 2 seconds. Neurological: Mental Status: She is alert and oriented to person, place, and time. Psychiatric: Behavior: Behavior normal. Assessment/Plan Diagnoses and all orders for this visit: Mild intermittent asthma without complication (J45.20) (Primary) Comments: condition choinc and at goal continue hte albuterol Gastroesophageal reflux disease without esophagitis (K21.9) Comments: condition chronic and at goal continue hte protonix Dyslipidemia with elevated low density lipoprotein (LDL) cholesterol and abnormally low high density lipoprotein cholesterol (E78.5) Comments: condition chronic and at goa contineu the crestor XENA (generalized anxiety disorder) (F41.1) Comments: conditon chroinc adn at goal continue the ativan Primary osteoarthritis of right knee (M17.11) Comments: condition chroicn and at goal continue the tramadol Brijesh Lynch MD documented in this encounter Plan of Treatment Not on file documented as of this encounter Visit Diagnoses Diagnosis Mild intermittent asthma without complication- Primary Gastroesophageal reflux disease without esophagitis Esophageal reflux Dyslipidemia with elevated low density lipoprotein (LDL) cholesterol and abnormally low high density lipoprotein cholesterol XENA (generalized anxiety disorder) Generalized anxiety disorder Primary osteoarthritis of right knee documented in this encounter Care Teams Dna Sequencing Associate Relationship Specialty Start Date End Date Angeles Hernandez MD [address] [address] Referring Physician Gynecology 07/21/21 documented as of this encounter
--- OUTSIDE RECORDS SUMMARY | 2024-09-03 19:36 | XMS_ITS | Encounter Summary ---
Author Organization [facility] Address [address] [place] [address] Care Team Providers Care Technical Assistant Name Role Phone Angeles Hernandez MD Unavailable [phone] Jeff Guzman Primary Care Provider [phone] Reason for Visit * Reason Onset Date Comments Medication Request 01/03/2023 Encounter Details Date Type Department Care Team ([facility] Contact Info) Description 01/03/2023 Telephone [facility] Family Medicine at [address] [place] [address] Jeff Guzman PA [address] [place] [address] [address] [place] [address] Medication Request Social History Tobacco Use Types Packs/Day [...] on file 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 Wants to discuss history of non controlled. Is being flagged as a drug cocktail. If needed, Pharmacy(s) medication(s) should be sent to: n/a Caller???s Callback #: [phone] Additional Comments: n/a Does message need to be routed? Yes-Action Needed documented in this encounter Plan of Treatment Not on file documented as of this encounter Visit Diagnoses Not on filedocumented in this encounter Care Teams Technical Assistant Relationship Specialty Start Date End Date Jeff Guzman PA [address] [place] [address] PCP - General Family Medicine 06/21/22 02/17/23 Angeles Hernandez MD [address] [place], [place] [id number] Referring Physician Gynecology 07/21/21 documented as of this encounter
--- OUTSIDE RECORDS SUMMARY | 2024-09-03 19:36 | XMS_ITS | Encounter Summary ---
Author Organization [facility] Healthcare Address [address] [place] [address] Care Team Providers Care Machine Joint Cutter Name Role Phone Angeles Hernandez MD Unavailable [phone] Ramonita Crawford NP Primary Care Provider [phone] Reason for Visit * Auth/Cert (Routine) Specialty [...] Expiration Date Visits Re quested Visits Authorized [id number] 1 1 Encounter Details Date Type Department Care Team (Latest Contact Info) Description 05/09/2023 7:32 AM CDT - 05/11/2023 6:17 PM CDT Hospital Encounter [facility] [address] [place] [id number] Jordan Duff MD [address] [facility] [address] [place] [address] Kaycee Reece MD [address] [place] [address] Right upper quadrant pain; Nausea; Abnormal findings on dx imaging of prt digestive tract; XENA (generalized anxiety disorder) Discharge Disposition: Discharge to home or self [...] often do you attend chur ch or faith services? 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 Gender Identity Female 03/27/2020 5:01 PM CDT Sexual Orientation Lesbian 03/27/2020 5: 01 PM CDT documented as of this encounter Last Filed Vital Signs Vital Sign Reading Time Taken Comments Blood Pressure 153/95 05/11/2023 4:51 PM CDT Pulse 77 05/11/2023 4:51 PM CDT Temperature 37.2 ??C (99 ??F) 05/11/2023 4:5 1 PM CDT Respiratory Rate 18 05/11/2023 4:51 PM CDT Oxygen Saturation 98% 05/11/2023 4:5 1 PM CDT Inhaled Oxygen Concentration - - Weight 86.6 kg (191 lb) 05/10/2023 5:25 PM CDT standing weight 05/09 Height 167.6 cm (5' 5.98 ) 05/10/2023 5 :25 PM CDT Body Mass Index 30.84 05/10/2023 5:25 [...] : S1, S2. Abdomen: Bowel sounds positive. Side Stitching Machine Operator: Alert, awake, oriented x3. There is no gross focal neurological deficit. Extremities: There is no pedal edema. PLAN So the plan will be to continue present medications, send the patient home and follow up with Dr. Duff's office in 6-8 weeks. Patient has been advised to follow the strict low-fat diet and to avoid alcohol and smoking. Job ID/Internal Job ID: [id number] documented in this encounter Discharge Instructions * Attachments The following attachments cannot be sent through Care Everywhere. * Low Fat Diet (Discharge Care) (Martiniquais) documented in this encounter Medications at Time [...] History: Diagnosis Date Arthritis Asthma Brain concussion [id number] Cardiomyopathy (HCC) Cataract Cholelithiasis Depression [id number] Epiretinal membrane (ERM), bilateral GERD (gastroesophageal reflux [...] Clear Liquid (Order Panel) Effective tomorrow Question: ([facility]) Diet type Answer: Clear Liquid 05/09/23 1619 [...] do just ice chips and sips per OYSTER CULLER notes. Attempted visit but RN reported pt was not appropriate for RD assessment at that time, SHEET METAL DUCT INSTALLER called and pt given narcan per notes. [...] after midnight -ERCP with stent removal tomorrow shaquille SAAB/bang Reece -one time dose of Emilio Blacno NP 05/10/2023 This note was transcribed using [employer] Speech Recognition software. As a result, there [...] oral, Q4H PRN, 650 mg at 05/09/23 6383 albuterol 2.5 mg /3 mL (0.083 %) [...] oral, Q12H PRN, 20 mg at 05/09/23 171 fluticasone propionate (FLONASE) 50 mcg/actuation nasal spray [...] intravenous, Continuous, Last Rate: 125 mL/hr at 8, 125 mL/hr at 05/10/23 0418 tiZANidine (ZANAFLEX) [...] and patient improves symptomatically. Kaycee Reece MD [facility] * Ruslan Conrad [facility] - 05/09/2023 5:08 PM CDT Pharmacy Note - Formulary Substitution Albuterol nebs have been substituted for Xopenex nebs as approved by the [facility] and Therapeutics Committee. Ruslan Conrad RPh [...] CV: S1-S2. ABDOMEN: Distal bowel sounds positive. FOCUS PULLER: Alert, awake, oriented x3. There is no [...] patient improves symptomatically. Job ID/Internal Job ID: [id number] documented in this encounter Procedure Notes * Jordan Duff MD - 05/11/2023 2:11 PM CDTAssociated Order(s): ERCP ENDOSCOPY LAB Patient Name: Chrissy Kilgore Procedure Date: 05/11/2023 2:11 PM Admit Type: Inpatient Room: [facility] Date of : 1970 Instrument Name: [id number] Gender: Female Note Status: Finalized Procedure: ERCP Indications: Stent removal after wide biliary/pancreatic ES Providers: Jordan Duff M.D. Referring MD: Nahomi Bryant.Susan.Andrea, Ethan Arce M.D. Medicines: Propofol per Anesthesia [...] one pancreatic stents were visible on the health information provider film. The esophagus was successfully intubated under [...] discussed. Start a fat-selective diet using preferentially [place] 3-rich sources, healthier and in our experience [...] drowsy. - Call our office as needed ([phone]). If ER visit is needed, make sure [...] 05/09/2023 9:44 AM Admit Type: Outpatient Room: [facility] 9 Date of : 1970 Instrument Name: [id number] Gender: Female Note Status: Finalized Procedure: ERCP Indications: Post-cholecystectomy abdominal pain, persistent nausea Providers: Jordan Duff M.D. Referring MD: Ethan Arce M.D., Ramonita Crawford F.N.Rolan. Medicines: Propofol per Anesthesia Complications: No immediate complications. Estimated Blood Loss: Estimated blood loss: none. Procedure: The benefits, risks, and alternatives to the procedure and sedation were discussed and informed consent was obtained. The TJF-[id number] was introduced through the mouth, and used to inject contrast into and used to inject contrast into the bile duct and ventral pancreatic duct. Findings: A health information provider film of the abdomen was obtained and [...] Rapid Response Team Event Note Reason for SHEET METAL DUCT INSTALLER: Apnea, somnolence Time Called: 1145 Time Arrived: 1150 SUBJECTIVE BRIEF HX: Patient is a 52 y.o. female with past medical history of asthma, GERD, cholelithiasis, HTN, IBS admitted on 05/09/[address] Duff. POD#1 SHEET METAL DUCT INSTALLER was called 2/2 apnea and altered mental [...] History: Diagnosis Date Arthritis Asthma Brain concussion [id number] Cardiomyopathy (HCC) Cataract Cholelithiasis Depression [id number] Epiretinal membrane (ERM), bilateral GERD (gastroesophageal reflux [...] zanaflex #Lethargy 2/2 medications -Multiple medications with FOCUS PULLER depression: dilaudid, compazine, and PRN ativan -Caution advised for stacking of medications #Post-ERCP nausea/vomiting -zofran 4mg Q4 PRN -Compazine 5mg Q6H PRN Transferred to higher level of care: Stable to remain on current floor Time Event Ended: 1323 CANDE Daugherty * Initial Assessments - Christen Montez RN - 05/10/2023 11:40 AM CDT CM Initial Assessment Interview Note Information Obtained From: Patient (05/10/231137) Admission Source: From home Impression: Pt admitted with RUQ pain. Plan Includes: GI- ERCP 05/09 Repeat ERCP and stent removal on 05/11 Fluids/pain management Primary Source of Transportation: Does the patient need discharge transport arranged?: No (05/10/231137) Health Insurance Coverage: yes- medicaid Prescription Coverage: yes Pharmacy: [id number] - [place] - [address] [facility] [place] [address] Primary Care Provider: Ramonita Crawford NP Prior to Admission: Functional Status: Independent with ADLs Primary Caregiver: Self Support System: Spouse/Significant Other Support system contact info (name, phone, availablity): garry jasso [phone] Home Care Services: No Durable Medical Equipment: [...] a week How often do you attend lutheran or faith services?: Never Do you belong to any clubs or organizations such as lutheran groups, unions, fraternal or athletic groups, or [...] Potential discharge needs include: Home Health: None (05/10/23 113) Dialysis: Behavioral Health Services: Behavioral Health Services: No (05/10/231137) Patient expects to be Discharged to: Private residence, (05/09/23 1984) Additional Information: CM met with pt at [...] Collaboration with patient, MD, direct care nurse, Jacquard Fixer, and other members of the health care team to assure needed interventions completed. 2. Return patient to optimal level of self-care post discharge. 3. Color Straining Bag Washer will follow for Discharge Planning - interventions [...] and Pancreatic (05/11/2023 2:33 PM CDT) Narrative [facility]_PACS_[facility] - 05/11/2023 2:34 PM CDT The images [...] 05/11/2023 2:11 PM Admit Type: Inpatient Room: [facility] Date of : 1970 Instrument Name: TJF-Q400 [...] one pancreatic stents were visible on the health information provider film. The esophagus was successfully intubated under [...] drowsy. - Call our office as needed ([phone]). If ER visit is needed, make sure [...] Neutrophil abs 5.5 1.7 - 6.5 K/cumm [facility] Imm gran abs 0.0 0.0 - 0.1 K/cumm [facility] Lymphocyte abs 1.2 0.8 - 3.3 K/cumm [facility] Monocyte abs 0.4 0.2 - 0.8 K/cumm [facility] Eosinophil abs 0.2 0.0 - 0.5 K/cumm [facility] Basophil abs 0.0 0.0 - 0.1 K/cumm [facility] Neutrophil pct 75.8 % [facility] Comment: Interpretive Data Percent cell count reference ranges are not reported, since discordance with absolute values may lead to misinterpretation of CBC data. Current Interpretive Data was last revised on 2017. Imm gran pct 0.3 % [facility] Comment: Interpretive Data Percent cell count reference ranges are not reported, since discordance with absolute values may lead to misinterpretation of CBC data. Current Interpretive Data was last revised on 2017. Lymphocyte pct 16.0 % [facility] Comment: Interpretive Data Percent cell count reference ranges are not reported, since discordance with absolute values may lead to misinterpretation of CBC data. Current Interpretive Data was last revised on 2017. Monocyte pct 5.3 % [facility] Comment: Interpretive Data Percent cell count reference ranges are not reported, since discordance with absolute values may lead to misinterpretation of CBC data. Current Interpretive Data was last revised on 2017. Eosinophil pct 2.2 % [facility] Comment: Interpretive Data Percent cell count reference ranges are not reported, since discordance with absolute values may lead to misinterpretation of CBC data. Current Interpretive Data was last revised on 2017. Basophil pct 0.4 % [facility] Comment: Interpretive Data Percent cell count reference ranges are not reported, since discordance with absolute values may lead to misinterpretation of CBC data. Current Interpretive Data was last revised on 2017. Blood 05/10/2023 7:24 AM CDT 05/10/2023 7:30 AM CDT us Jordan Duff MD LAB BLOOD ORDERABLES Final Result [facility] [address] Department [place] [address] * CBC with auto differential (05/10/2023 7:24 AM CDT) WBC 7.2 3.8 - 9.9 K/cumm [facility] Hgb 12.2 11.9 - 15.5 g/dL [facility] Hct 36.6 35.6 - 45.5 % [facility] Plt 289 150 - 400 K/cumm [facility] MPV 9.4 9.1 - 12.3 fL [facility] RBC 4.19 3.90 - 5.20 M/cumm [facility] MCV 87.4 81.3 - 96.4 fL [facility] MCH 29.1 27.1 - 33.3 pg [facility] MCHC 33.3 32.3 - 35.7 g/dL [facility] RDW CV 12.3 11.1 - 14.9 % [facility] RDW SD 39.0 35.7 - 48.1 fL [facility] NRBC abs 0.00 0.00 - 0.01 K/cumm [facility] Blood 05/10/2023 7:24 AM CDT 05/10/2023 7:30 AM CDT Jordan Duff MD LAB BLOOD ORDERABLES Final Result [facility] [address] Department [place] [address] * ERCP (05/09/2023 9:44 AM CDT) Anatomical Region Laterality Modality Other Narrative Procedure Note Jordan Duff MD - 05/09/2023 9:44 AM CDT ENDOSCOPY LAB Patient Name: Chrissy Kilgore Procedure Date: 05/09/2023 9:44 AM Admit Type: Outpatient Room: [facility] 9 Date of : 1970 Instrument Name: [...] duct and ventral pancreatic duct. Findings: A health information provider film of the abdomen was obtained and [...] documented in this encounter Visit Diagnoses Diagnosis Chronic right upper quadrant pain- Primary Abdominal pain, right upper quadrant Right upper quadrant pain Abdominal pain, right upper quadrant Nausea Nausea alone Abnormal findings on dx imaging of prt digestive tract XENA (generalized anxiety disorder) Generalized anxiety disorder Right upper quadrant pain Abdominal pain, right upper quadrant Opioid overdose (HCC) Poisoning by opium (alkaloids), unspecified S/P ERCP Bilious vomiting with nausea documented in this encounter Admitting Diagnoses Diagnosis [...] 2.5 mg, nebulization, Every 4 hours PRN (commercial correspondent), wheezing, Starting on Tue05/09/23 at 1705, Therapeutic Interchange for Xopenex as approved by [facility] P&T Committee. albuterol HFA (PROVENTIL HFA,VENTOLIN HFA,PROAIR HFA) 90 mcg/actuation inhaler 2 puff 2 puff, inhalation, Every 6 hours PRN (commercial correspondent), wheezing, Starting on Tue05/09/23 at 1704 aluminum-magnesium [...] 2 doses, Recovery (GI), Hold for lethargy Given 05/09/2023 11:46 AM CDT 1 mg Given 05/09/2023 11:00 AM CDT 1 mg HYDROmorphone (DILAUDID) injection 1 mg 1 mg, intravenous, Administer over 2 Minutes, Every 3 hours PRN, pain, Starting on Tue05/09/23 at 1619, Hold for somnolence Given 05/10/2023 11:05 AM CDT 1 mg Given 05/10/2023 8:10 AM CDT 1 mg Given 05/10/2023 4:15 AM CDT 1 mg ioversoL (OPTIRAY 350) injection 0.01-500 mL 0.01-500 mL, intraductal, Once in imaging, contrast, Starting on Tue05/11/23 at 1412, For 1 dose Contrast Given 05/11/2023 2:30 PM CDT 15 mL ketorolac (TORADOL) 15 mg/mL injection 15 mg 15 mg, intravenous, Every 6 hours PRN, 1st line for pain, Starting on Tue05/10/23 at 1157, For 5 days, For Adult IV push, administer over 15 seconds Given 05/11/2023 9:10 AM CDT 15 mg Given 05/10/2023 8:05 PM CDT 15 mg Given 05/10/2023 12:04 PM CDT 15 mg Lactated Ringer's (LR) infusion 30 mL/hr, intravenous, Continuous, Starting on Tue05/09/23 at 0945 Rate/Dose Verify 05/09/2023 9:56 AM CDT 30 mL/hr New Bag 05/09/2023 9:11 AM CDT 30 mL/hr 30 mL/hr Lactated Ringer's (LR) infusion 125 mL/hr, intravenous, Continuous, Starting on Tue05/09/23 at 1115, For 2 hours, Recovery (GI) New Bag 05/09/2023 12:35 PM CDT 125 mL/hr 125 mL/hr levoFLOXacin (LEVAQUIN) 500 mg/100 mL in dextrose 5% (premix) 500 mg 500 mg, intravenous, at 100 mL/hr, Administer over 60 Minutes, Once, On Tue05/09/23 at 0930, For 1 dose, Pre-Op, Indications: PRE ERCPIndications:PRE ERCP New Bag 05/09/2023 9:09 AM CDT 500 mg 100 mL /hr LORazepam (ATIVAN) injection 1 mg 1 mg, intravenous, Every 30 min PRN, Abdominal Spasm, Starting on Tue05/09/23 at 1034, For 3 doses, Recovery (GI), For IV administration, draw up ordered admin dose/volume, then dilute with equal volume of 0.9% sodium chloride and administer total volume to patient. Do not exceed a rate of 2 mg/minute. Given 05/09/2023 4:15 PM CDT 1 mg Given 05/09/2023 1:16 PM CDT 1 mg Given 05/09/2023 10:56 AM CDT 1 mg LORazepam (ATIVAN) injection 1 mg 1 [...] Given 05/09/2023 9:09 PM CDT 10 mg naloxone (NARCAN) 0.4 mg/mL injection - ADS Override Pull Starting on Tue05/10/23 at 1144, For 1 dose, Created by eriberto grant For IV, administer over 30 seconds. Given 05/10/2023 11:50 AM CDT 0.4 mg ondansetron (ZOFRAN) injection 4 mg 4 mg, intravenous, Administer over 2 Minutes, Every 30 min PRN, nausea, vomiting, Starting on Tue05/09/23 at 1034, Recovery (GI) Given 05/09/2023 4:18 PM CDT 4 mg Given 05/09/2023 12:28 PM CDT 4 mg ondansetron (ZOFRAN) injection 4 mg 4 mg, intravenous, Administer over 2 Minutes, 4 times daily PRN, nausea, vomiting, Starting on Tue05/09/23 at 1619 Given 05/09/2023 10:43 PM CDT 4 mg ondansetron (ZOFRAN) injection 4 mg 4 [...] Given 05/10/2023 5:42 AM CDT 1 tablet sodium chloride 0.9% infusion 125 mL/hr, intravenous, Continuous, Starting on Tue05/09/23 at 1700 New Bag 05/11/2023 5:34 AM CDT 125 mL/hr 125 mL/hr Rate/Dose Verify 05/11/2023 4:42 AM CDT 125 mL/hr 125 mL/ hr New Bag 05/10/2023 10:24 PM CDT 125 mL/hr 125 mL/hr sodium chloride 0.9% infusion 30 mL/hr, intravenous, Continuous, Starting on Tue05/11/23 at 1415, For 4 hours, Pre-Procedure (GI) New Bag 05/11/2023 1:39 PM CDT 30 mL/hr 30 mL/hr documented in [...] RN) 0812 (Given - Provider: Deedee Steel RN)1731 (Given - Provider: Deedee A. Milvia, RN) 0910 (Given - Provider: Pamela Marlow, ADAMA)1332 (OCT Hold - Provider: Automatic Transfer Provider - Reason: Patient not available)1628 (OCT Unhold - Provider: Automatic Transfer Provider)1800 (Due) cetirizine (ZyrTEC) tablet 10 mg 10 mg, oral, Daily, First dose on Tue05/09/23 at 1700 1716 (Given - Provider: Shirley Escamilla RN) 0812 (Given - Provider: Deedee Steel, ADAMA) 0910 (Given - Provider: Pamela Marlow, ADAMA)1332 (OCT Hold - Provider: Automatic Transfer Provider - Reason: Patient not available)1628 (OCT Unhold - Provider: Automatic Transfer Provider) docusate sodium (COLACE) capsule 100 mg 100 mg, oral, 2 times daily, First dose on Tue05/09/23 at 2100 2110 (Given - Provider: Aniyah Carney RN) 0812 (Given - Provider: Deedee Steel RN)2002 (Given - Provider: Yajaira Chen RN) 0910 (Given - Provider: Pamela Marlow, ADAMA)1332 (OCT Hold - Provider: Automatic Transfer Provider - Reason: Patient not available)1628 (OCT Unhold - Provider: Automatic Transfer Provider) fluticasone propionate (FLONASE) 50 mcg/actuation nasal spray 2 spray 2 spray, each nostril, Daily, First dose on Tue05/09/23 at 1700 1734 (Given - Provider: Socorro Gamboa RN) 0812 (Given - Provider: Deedee Steel RN) 0911 (Given - Provider: Pamela Marlow, ADAMA)1332 (OCT Hold - Provider: Automatic Transfer Provider - Reason: Patient not available)1628 (OCT Unhold - Provider: Automatic Transfer Provider) levoFLOXacin (LEVAQUIN) 500 mg/100 mL in dextrose 5% (premix) 500 mg (COMPLETED) 500 mg, intravenous, at 100 mL/hr, Administer over 60 Minutes, Once, On Tue05/09/23 at 0930, For 1 dose, Pre-Op, Indications: PRE ERCP 09 (New Bag - Provider: Aleja Fong, ADAMA) montelukast (SINGULAIR) tablet 10 mg 10 mg, oral, Nightly, First dose on Tue05/09/23 at 2100 2109 (Given - Provider: Aniyah Carney RN) 2002 (Given - Provider: Yajaira Chen RN) 133 ([facility] Hold - Provider: Automatic Transfer Provider - Reason: Patient not available)162 ([facility] Unhold - Provider: Automatic Transfer Provider) naloxone [...] cut, dissolve, open or otherwise manipulate tablet/capsule. 171 (Given - Provider: Shirley Escamilla RN) 0812 (Given - Provider: Deedee Steel RN) 09 (Given - Provider: Pamela Marlow, ADAMA)133 ([facility] Hold - Provider: Automatic Transfer Provider - Reason: Patient not available)162 ([facility] Unhold - Provider: Automatic Transfer Provider) pantoprazole DR (PROTONIX) extended release tablet 40 mg 40 mg, oral, Daily, First dose on Tue05/09/23 at 1700, Do not crush, chew, cut, dissolve, open or otherwise manipulate tablet/capsule., Indications: Treatment of Non-Bleeding Gastric Disorder 171 (Given - Provider: Shirley Escamilla RN) 08 (Given - Provider: Deedee Steel RN) 09 (Given - Provider: Pamela Marlow RN)133 ([facility] Hold - Provider: Automatic Transfer Provider - Reason: Patient not available)162 ([facility] Unhold - Provider: Automatic Transfer Provider) rosuvastatin (CRESTOR) tablet 5 mg 5 mg, oral, Daily, First dose on Tue05/10/23 at 0900 0812 (Given - Provider: Deedee Steel, ADAMA) 0910 (Given - Provider: Pamela Marlow, ADAMA)1332 (OCT Hold - Provider: Automatic Transfer Provider - Reason: Patient not available)1628 (OCT Unhold - Provider: Automatic Transfer Provider) sacubitriL-valsartan (ENTRESTO) 24-26 mg tablet 1 tablet 1 tablet, oral, Every 12 hours, First dose on Tue05/09/23 at 1700 1716 (Given - Provider: Shirley Escamilla, ADAMA) 0542 (Given - Provider: Aniyah Carney RN)1731 (Given - Provider: Deedee Steel, ADAMA) 0438 (Given - Provider: Yajaira Chen RN)1332 (OCT Hold - Provider: Automatic Transfer Provider - Reason: Patient not available)1628 (OCT Unhold - Provider: Automatic Transfer Provider)1700 (Due) [...] Corrine Stallings RN)1729 (Stopped - Provider: Socorro Gamboa, ADAMA) sodium chloride 0.9% infusion 125 mL/hr, intravenous, Continuous, Starting on Tue05/09/23 at 1700 1733 (New Bag - Provider: Socorro Gamboa, ADAMA) 0418 (New Bag - Provider: Aniyah Carney RN)1201 (Rate/Dose Verify - Provider: Deedee Steel, ADAMA)1259 (New Bag - Provider: Deedee Steel RN)1501 (Rate/Dose Verify - Provider: Deedee Steel RN)1721 (Rate/Dose Verify - Provider: Deedee Steel RN)2124 (Rate/Dose Verify - Provider: Yajaira Chen, RN)2224 (New Bag - Provider: Stacie Quiros RN) 0442 (Rate/Dose Verify - Provider: Yajaira Chen, RN)0534 (New Bag - Provider: Yajaira Chen, ADAMA)2217 (Due: Stopped) sodium chloride 0.9% infusion 30 [...] (OCT Unhold - Provider: Automatic Transfer Provider) albuterol 2.5 mg /3 mL (0.083 %) nebulizer solution 2.5 mg 2.5 mg, nebulization, Every 4 hours PRN (commercial correspondent), wheezing, Starting on Tue05/09/23 at 1705, Therapeutic Interchange for Xopenex as approved by [facility] P&T Committee. 1332 (OCT Hold - Provider: Automatic Transfer Provider - Reason: Patient not available)1628 (OCT Unhold - Provider: Automatic Transfer Provider) albuterol HFA (PROVENTIL HFA,VENTOLIN HFA,PROAIR HFA) 90 mcg/actuation inhaler 2 puff 2 puff, inhalation, Every 6 hours PRN (commercial correspondent), wheezing, Starting on Tue05/09/23 at 1704 1332 ([facility] Hold - Provider: Automatic Transfer Provider - Reason: Patient not available)1628 ([facility] Unhold - Provider: Automatic Transfer Provider) aluminum-magnesium hydroxide-simethicone (MAALOX) 40-40-4 mg/mL oral suspension 30 mL 30 mL, oral, Every 4 hours PRN, heartburn, Starting on Tue05/10/23 at 1003 1332 ([facility] Hold - Provider: Automatic Transfer Provider - Reason: Patient not available)1628 ([facility] Unhold - Provider: Automatic Transfer Provider) famotidine (PEPCID) tablet 20 mg 20 mg, oral, Every 12 hours PRN, indigestion, heartburn, Starting on Tue05/09/23 at 1619 1716 (Given - Provider: Shirley Escamilla, ADAMA) 1332 ([facility] Hold - Provider: Automatic Transfer Provider - Reason: Patient not available)1628 ([facility] Unhold - Provider: Automatic Transfer Provider) HYDROmorphone (DILAUDID) injection 1 mg (COMPLETED) 1 mg, intravenous, Administer over 2 Minutes, Every 30 min PRN, 1st line for pain, Administer one minute after lorazepam, Starting on Tue05/09/23 at 1034, For 2 doses, Recovery (GI), Hold for lethargy 1100 (Given - Provider: Roseann Decker RN)1146 (Given - Provider: Roseann Decker, ADAMA) HYDROmorphone (DILAUDID) injection 1 mg 1 mg, intravenous, Administer over 2 Minutes, Every 3 hours PRN, pain, Starting on Tue05/09/23 at 1619, Hold for somnolence 1716 (Given - Provider: Shirley Escamilla RN)2116 (Given - Provider: Aniyah Carney RN) 0415 (Given - Provider: Aniyah Carney RN)0810 (Given - Provider: Deedee Steel, ADAMA)1105 (Given - Provider: Deedee Steel, ADAMA) 1332 ([facility] Hold - Provider: Automatic Transfer Provider - Reason: Patient not available)1628 ([facility] Unhold - Provider: Automatic Transfer Provider) ioversoL [...] seconds 1204 (Given - Provider: Ligia Patricio, ADAMA)2004 (Given - Provider: Yajaira Chen, ADAMA) 09 (Given - Provider: Pamela Marlow, ADAMA)133 (OCT Hold - Provider: Automatic Transfer Provider [...] Roseann Decker RN)1316 (Given - Provider: Roseann Decker, ADAMA)1615 (Given - Provider: Roseann Decker, ADAMA) LORazepam (ATIVAN) injection 1 mg 1 mg, [...] Recovery (GI) 1228 (Given - Provider: Corrine Stallings, ADAMA)1618 (Given - Provider: Roseann Decker, ADAMA) ondansetron (ZOFRAN) injection 4 mg (CANCELED) 4 mg, intravenous, Administer over 2 Minutes, 4 times daily PRN, nausea, vomiting, Starting on Tue05/09/23 at 1619 2243 (Given - Provider: Aniyah Carney, ADAMA) ondansetron (ZOFRAN) injection 4 mg 4 mg, intravenous, Administer over 2 Minutes, Every 4 hours PRN, nausea, vomiting, Starting on Tue05/10/23 at 1100 1155 (Given - Provider: Deedee Steel, ADAMA) 1332 ([facility] Hold - Provider: Automatic Transfer Provider - Reason: Patient not available)1628 ([facility] Unhold - Provider: Automatic Transfer Provider) prochlorperazine (COMPAZINE) injection 5 mg 5 mg, intravenous, Administer over 2 Minutes, Every 6 hours PRN, nausea, vomiting, Starting on Tue05/10/23 at 1046 1108 (Given - Provider: Deedee Steel, ADAMA) 0033 (Given - Provider: Yajaira Chen RN)1332 ([facility] Hold - Provider: Automatic Transfer Provider - Reason: Patient not available)1628 ([facility] Unhold - Provider: Automatic Transfer Provider) secretin (CHIRHOSTIM) injection (CANCELED) Administer over 1 Minutes, As needed, Starting on Tue05/09/23 at 1013, Intra-Op 1013 (Given - Provider: Aleja Palomo, ADAMA) tiZANidine (ZANAFLEX) tablet 4 mg 4 mg, oral, 3 times daily PRN, muscle spasms, Starting on Tue05/09/23 at 1619, Administer on an empty stomach 1332 ([facility] Hold - Provider: Automatic Transfer Provider - Reason: Patient not available)1628 ([facility] Unhold - Provider: Automatic Transfer Provider) No Frequency Medication Order 05/09/2023 05/10/2023 05/11/2023 naloxone (NARCAN) 0.4 mg/mL injection - ADS Override Pull (COMPLETED) Starting on Tue05/10/23 at 1144, For 1 dose, Created by cabinet override For IV, administer over 30 seconds. 1150 (Given - Provider: Deedee Steel RN) documented in this encounter Orders Medications Ordered That Sarabjit ht Not Have Been Administered Count Last Ordered Date First Ordered Date aluminum-magnesium hydroxide -simethicone (MAALOX) 40-40-4 mg/mL oral suspension 30 mL 1 05/10/2023 HYDROcodone-acetaminophen (N ORCO) 5-325 mg per tablet 1 tablet 1 05/10/2023 naloxone (NARCAN) 0.4 mg/mL injection 0.4 mg 1 05/10/2023 albuterol (PROAIR DIGIHALER) 90 mcg/actuation breath activated inhaler 2 puff 1 05/09/2023 albuterol 2.5 mg /3 mL (0.08 3 %) nebulizer solution 2.5 mg 1 05/09/2023 albuterol HFA (PROVENTIL HFA ,VENTOLIN HFA,PROAIR HFA) 90 mcg/actuation inhaler 2 puff 1 05/09/2023 levalbuterol (XOPENEX) 1.25 mg/3 mL nebulizer solution 1.25 mg 1 05/09/2023 secretin (CHIRHOSTIM) injection 1 sodium chloride 0.9% infusion 1 05/09/2023 tiZANidine (ZANAFLEX) tablet 4 mg 1 023 Consult Count Last Ordered Date First Orde red Date IP CONSULT TO NUTRITION SERVICES 1 05/09/20 23 Admission Count Last Ordered Date First Orde red Date ADMIT TO INPATIENT 1 05/10/2023 Discharge Count Last Ordered Date First Orde red Date DISCHARGE PATIENT 1 05/11/2023 Case Request Count Last Ordered Date First Orde red Date CASE REQUEST GI 1 05/10/2023 documented in this encounter Care Teams Machine Joint Cutter Relationship Specialty Start Date End Date Ramonita Crawford NP [address] [address] PCP - General Family Medicine 02/18/23 Angeles Hernandez MD [address] [facility] [address] [place], [place] [id number] Referring Physician Gynecology 07/21/21 documented as of this encounter
--- OUTSIDE RECORDS SUMMARY | 2024-09-03 19:36 | XMS_ITS | Encounter Summary ---
Author Organization [facility] Address [address] [place] [address] Phone Care Team Providers Care Spa Consultant Name Role Phone Angeles Hernandez MD Unavailable [phone] Reason for Referral * Diagnostic Imaging (Routine) - Closed Specialty Diagnoses / Procedures Referred By Contac t Referred To Contact Diagnoses Breast pain, left Atypical lobular hyperplasia (ALH) of left breast Family history of breast cancer Procedures Diagnostic Mammogram Left W Darren Diagnostic Mammogram Bilateral W Darren Rachel Kay MD [address] [place] [address] Phone: tel: fax: [address] [address] Referral ID Status Reason Start Date Expiration Date Visits Re quested Visits Authorized [id number] Closed 06/15/2022 07/15/2023 1 1 Encounter Details Date Type Department Care Team (Late st Contact Info) Description 06/15/2022 Orders Only [facility] Oncology [address] [place] [phone] Rachel Kay MD [address] [place] [address] Breast pain, left (Primary Dx); Atypical lobular hyperplasia (ALH) of left breast; Family history of breast cancer Social History Tobacco Use Types Packs/Day Years [...] on file 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 In order for her to have US done, they need an order for DX mamm. Order placed. documented in this encounter Plan of Treatment Not on file documented as of this encounter Results * Diagnostic Mammogram Left W Darren (07/23/2022 12:30 PM TELECOMMUNICATIONS CONSULTANT) Anatomical Region Laterality Modality Breast Left Mammography 07/23/2022 1:27 PM TELECOMMUNICATIONS CONSULTANT Impressions 07/23/2022 1:27 PM TELECOMMUNICATIONS CONSULTANT No evidence of malignancy in the left breast. OVERALL FINAL ASSESSMENT: BI-RADS Category 2: Benign. RECOMMENDATION: Annual screening mammography is recommended. Electronically signed by: Mary Blevins M.D. Narrative 07/23/2022 1:27 PM TELECOMMUNICATIONS CONSULTANT EXAMINATION: LEFT UNILATERAL DIGITAL DIAGNOSTIC MAMMOGRAM AND [...] documented in this encounter Visit Diagnoses Diagnosis Breast pain, left- Primary Atypical lobular hyperplasia (ALH) of left breast Family history of breast cancer Family history of malignant neoplasm of breast Breast pain, left Atypical lobular hyperplasia (ALH) of left breast Family history of breast cancer Family history of malignant neoplasm of breast documented in this encounter Care Teams Spa Consultant Relationship Specialty Start Date End Date Angeles Hernandez MD [address] [address] Referring Physician Gynecology 07/21/21 documented as of this encounter
--- OUTSIDE RECORDS SUMMARY | 2024-09-03 19:36 | XMS_ITS | Encounter Summary ---
Author Organization [facility] Address [address] [place] [address] Care Team Providers Care Sheet Metal Worker Helper Name Role Phone Angeles Hernandez MD Unavailable [phone] Reason for Referral * Diagnostic Imaging (Routine) - Closed Specialty Diagnoses / Procedures Referred By Sharlene angulo Referred To Contact Diagnoses Family history of breast cancer Breast cancer screening, high risk patient Procedures Screening Mammogram Bilateral W Rachel Chowdary MD [address] [place] [address] Phone: tel: fax: [address] [phone] Referral ID Status Reason Start Date Expiration Date Visits Re quested Visits Authorized [id number] Closed 08/05/2021 09/04/2022 1 1 Reason for Visit * Diagnostic Imaging (Routine) - Closed Specialty Diagnoses / Procedures Referred By Sharlene angulo Referred To Contact Diagnoses Family history of breast cancer Breast cancer screening, high risk patient Procedures Screening Mammogram Bilateral W Rachel Chowdary MD [address] [place] [address] Phone: tel: fax: [address] [phone] Referral ID Status Reason Start Date Expiration Date Visits Re quested Visits Authorized [id number] Closed 08/05/2021 09/04/2022 1 1 Encounter Details Date Type Department Care Team (Latest Contact Info) Description 05/18/2022 8:24 AM CDT - 05/18/2022 11:59 PM CDT Hospital Encounter [facility] Imaging and Radiology [address] [place] [address] Rachel Kay MD [address] [place] [address] Family history of breast cancer; Breast cancer screening, high risk patient Discharge Disposition: Discharge to home or self [...] you are drinking? Patient does not drink 2 Q3: How often do you have si x or more drinks on one occasion? 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 Gender Identity Female 03/27/2020 5:01 PM CDT Sexual Orientation Lesbian 03/27/2020 5: 01 PM CDT documented as of this encounter Medications at Time of Discharge cetirizine (ZyrTEC) 10 mg tabletIndications:S easonal allergic rhinitis due to pollen TAKE 1 TABLET BY MOUTH DAILY 30 tablet 50 05/13/2022 EPINEPHrine 0.3 mg/0.3 mL auto-injection syringeIndications: Moderate persistent asthma with exacerbation INJECT 0.3 ML(0.3 MG TOTAL) IN THE MUSCLE INSTRUCTED NEEDED FOR ANAPHYLAXIS; CALL 911 AFTER USE 2 each 3 01/25/2022 albuterol (PROAIR DIGIHALER) 90 mcg/actuation inhaler Inhale 2 puffs every 6 (six) hours as needed for wheezing 2 docusate sodium (COLACE) 100 mg capsuleIndications: Drug-induced constipation TAKE 1 CAPSULE BY MOUTH TWICE DAILY 60 capsule 2 05/12/2022 2 Entresto 24-26 mg tablet Take 1 tablet by mouth every 12 (twelve) hours 60 tablet 2 04/02/2022 2 fluticasone propionate (FLONASE) 50 mcg/actuation nasal spray SHAKE LIQUID AND USE 1 SPRAY IN EACH NOSTRIL DAILY NEEDED FOR NASAL CONGESTION 03/26/2021 3 furosemide (LASIX) 40 mg tabletIndications:E ssential hypertension Take 1 tablet (40 mg total) by mouth 2 (two) times a day 180 tablet 3 05/06/2022 2 HYDROcodone-acetami nophen (NORCO) 5-325 mg per tabletIndications:A rthralgia of both hands Take 1 tablet by mouth 2 (two) times a day as needed for pain 60 tablet 05/04/2022 3 Jardiance 10 mg tablet Take 1 tablet (10 mg total) by mouth daily 30 tablet 2 04/02/2022 2 levalbuterol (XOPENEX) 1.25 mg/3 mL nebulizer solution 03/06/2022 2 levoFLOXacin (LEVAQUIN) 750 mg tablet 03/06/2022 3 LORazepam (ATIVAN) 0.5 mg tabletIndications:P sychophysiological insomnia TAKE 1 TABLET(0.5 MG) BY MOUTH EVERY NIGHT NEEDED FOR INSOMNIA 30 tablet 05/14/2022 2 metoprolol tartrate (LOPRESSOR) 25 mg immediate release tabletIndications:E ssential hypertension Take 0.5 tablets (12.5 mg total) by mouth 2 (two) times a day 90 tablet 3 05/06/2022 3 montelukast (SINGULAIR) 10 mg tabletIndications:S easonal allergic rhinitis due to pollen TAKE 1 TABLET(10 MG) BY MOUTH EVERY NIGHT 30 tablet 5 02/10/2022 3 ondansetron ODT (ZOFRAN-ODT) 4 mg disintegrating tablet DISSOLVE 1 TABLET ON THE TONGUE EVERY 6 HOURS NEEDED FOR NAUSEA OR VOMITING 02/04/[address] (PROTONIX) 40 mg EC tabletIndications:G astroesophageal reflux disease with esophagitis without hemorrhage TAKE 1 TABLET(40 MG) BY MOUTH DAILY 30 tablet 5 12/22/2021 3 potassium chloride ER 20 mEq CR tablet Take 1 tablet (20 mEq total) by mouth 2 (two) times a day 60 tablet 2 04/02/2022 2 rosuvastatin (CRESTOR) 5 mg tabletIndications:H ypercholesteremia TAKE 1 TABLET(5 MG) BY MOUTH DAILY 30 tablet 2 04/13/2022 2 spironolactone (ALDACTONE) 25 mg tabletIndications:B roken heart syndrome,Encounter to establish care with new doctor Take 1 tablet (25 mg total) by mouth daily 30 tablet 11 05/11/2022 2 tiZANidine (ZANAFLEX) 4 mg tabletIndications:M uscle pain TAKE 1 TABLET(4 MG) BY MOUTH EVERY 8 HOURS NEEDED FOR MUSCLE SPASMS 90 tablet 04/17/2022 2 traMADoL (ULTRAM) 50 mg tabletIndications:N popeye pain TAKE 1 TABLET(50 MG) BY MOUTH EVERY 8 HOURS NEEDED FOR PAIN 90 tablet 04/18/2022 2 documented as of this encounter Discharge Disposition Disposition Code Departure Means Destination Discharge to home or self care documented in this encounter Plan of Treatment Not on file documented as of this encounter Procedures Procedure Name Priority Date/Time Associated Diagnosis Comments SCREENING MAMMOGRAM BILATERAL W AVERY Schedule Routine, Read Routine (OP Routine) 05/18/2022 8:44 AM CDT Family history of breast cancer Breast cancer screening, high risk patient documented in this encounter Results * Screening Mammogram Bilateral W Avery (05/18/2022 8:44 AM CDT) Anatomical Region Laterality Modality Breast Bilateral Mammography 05/18/2022 9:10 AM CDT Impressions 05/18/2022 9:10 AM CDT No evidence of malignancy in either breast. FINAL ASSESSMENT: BI-RADS Category 2: Benign. RECOMMENDATION: Recommend return for annual screening mammogram in 12 months. ?? Electronically signed by: Mary Blevins M.D. Narrative 05/18/2022 9:10 AM CDT EXAMINATION: BILATERAL SCREENING MAMMOGRAM COMPARISON: 12/10/2020 [facility] TECHNIQUE: Full-field 2D and digital breast tomosynthesis (DBT) images were obtained. CAD was utilized. BREAST PARENCHYMAL COMPOSITION: ??There are scattered areas of fibroglandular density. FINDINGS: There is no suspicious mass, calcification, or distortion in either breast. There has been no significant interval change from the prior study. ??Bilateral stable benign nodules are seen. Rachel Kay MD IMG MAMMO PROCEDURES Final Result documented in this encounter Visit Diagnoses Diagnosis Family history of breast cancer Family history of malignant neoplasm of breast Breast cancer screening, high risk patient Screening mammogram for high-risk patient documented in this encounter Care Teams Sheet Metal Worker Helper Relationship Specialty Start Date End Date Angeles Hernandez MD [address] [address] Referring Physician Gynecology 07/21/21 documented as of this encounter
--- OUTSIDE RECORDS SUMMARY | 2024-09-03 19:36 | XMS_ITS | Encounter Summary ---
Author Organization [facility] Address [address] [place] [address] Phone Care Team Providers Care Director Of Diagnostic Imaging Name Role Phone Angeles Hernandez MD Unavailable [phone] Ramonita Crawford NP Primary Care Provider [phone] Reason for Visit * Reason Comments Cataract Encounter Details Date Type Department Care Team (Late st Contact Info) Description 05/20/2023 9:15 AM CDT Office Visit [facility] [address] [facility] ([place], [place]) [place] [address] Mary Ann Webster MD [address] [place] [address] Age-related nuclear cataract of right [...] 05/10/2023 How often do you attend chur or amish services? 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 SN60WF. 30 minutes MAC IOLM done Epiretinal membrane (ERM) of both eyes Assessment & Plan: Some metamorphopsia left eye (OS), patient reports dissatisfaction with vision, will re-refer to retina for eval I have seen/examined the patient and I agree with the findings/plan of the Resident/Fellow documented in this encounter Miscellaneous Notes * Assessment & Plan Note - Juan Hunter II, MD - 05/20/2023 9:29 AM CDTAssociated Problem(s): Ocular hypertension Intraocular pressure (IOP) okay low 20s HFV full monitor * Assessment & Plan Note - Juan Hunter II, MD - 05/20/2023 9:28 AM CDTAssociated Problem(s): Epiretinal membrane (ERM) of both eyes Some metamorphopsia left eye (OS), patient reports dissatisfaction with vision, will re-refer to retina for eval * Assessment & Plan Note - Juan Hunter II, MD - 05/20/2023 9:27 AM CDTAssociated Problem(s): Pseudophakia of right eye Patient reports significant issues with nighttime glare [...] eye. SN60WF. 30 minutes MAC IOLM done documented in this encounter Plan of Treatment Not on file documented as of this encounter Visit Diagnoses Diagnosis Age-related nuclear cataract of right eye- Primary Epiretinal membrane (ERM) of both eyes documented in this encounter Eye Exam Visual Acuity (Snellen - Linear) Right eye Left eye Dist cc 20/40 20/40 Dist ph cc 20/30 20/30 Correction: Glasses Tonometry (Applanation, 9:18 AM) Right eye Left eye Pressure 22 22.5 Pupils Dark Light Shape React APD Right eye 6 4 Round Brisk None Left eye 6 5 Round Brisk None Neuro/Psych Oriented x3: Yes Mood/Affect: Normal External Exam Right eye Left eye External Normal Normal Slit Lamp Exam Right eye Left eye Lids/Lashes Normal Normal Conjunctiva/Sclera White and quiet White and leland et Cornea Clear Clear Anterior Chamber Deep and quiet Deep and quiet Iris Round and reactive Round and saran ctive Lens 1-2+ Nuclear scleros is, 1+ central PSC Posterior chamber intraocular lens, SN^)WF Anterior Vitreous Normal Normal Fundus Exam Right eye Left eye Disc mild cupping mild cupping C/D Ratio 0.6 0.6 Macula Peripapillary atroph y, Epiretinal membrane Epiretinal membrane, Peripapillary atrophy Care Teams Director Of Diagnostic Imaging Relationship Specialty Start Date End Date Ramonita Crawford NP [address] [address] PCP - General Family Medicine 02/18/23 Angeles Hernandez MD [address] [address] Referring Physician Gynecology 07/21/21 documented as of this encounter
--- OUTSIDE RECORDS SUMMARY | 2024-09-03 19:36 | XMS_ITS | Encounter Summary ---
Author Organization [facility] Address [address] [place] [address] Phone Care Team Providers Care Nightclub Manager Name Role Phone Angeles Hernandez MD Unavailable [phone] Jeff Guzman Primary Care Provider [phone] Reason for Visit * Reason Onset Date Comments Medical Records Request 09/13/2022 OV note and Echo Encounter Details Date Type Department Care Team (Late st Contact Info) Description 09/13/2022 Telephone [facility] Cardiology [address] [facility] Advanced Medicine [address]th [place] [address] [place] [address] Vasquez Schneider MD [address] [facility] [address] [place] [address] Medical Records Request (OV note and Echo) Social History Tobacco Use Types Packs/Day Years [...] Miscellaneous Notes * Telephone Encounter - Joceline Dietz - 09/13/2022 2:35 PM CST Faxed recent OV note and echo to Jennifer at [facility]. RY BLENDER * Telephone Encounter - Shae Cook - 09/13/2022 1:06 PM CST SKY AHUJA WITH [facility] ENDOSCOPY REQ PT'S MOST RECENT OFFICE NOTE AND ECHO REPORT FAX [phone] RY BLENDER documented in this encounter Plan of Treatment Not on file documented as of this encounter Visit Diagnoses Not on filedocumented in this encounter Care Teams Nightclub Manager Relationship Specialty Start Date End Date Jeff Guzman PA [address] [place] [address] PCP - General Family Medicine 06/21/22 02/17/23 Angeles Hernandez MD [address] [place], [place] [id number] Referring Physician Gynecology 07/21/21 documented as of this encounter
--- OUTSIDE RECORDS SUMMARY | 2024-09-03 19:36 | XMS_ITS | Encounter Summary ---
Author Organization [facility] Healthcare Address [address] [place] [id number] Care Team Providers Care Assembler Handbags Name Role Phone Angeles Hernandez MD Unavailable [phone] Jeff Guzman Primary Care Provider [phone] Encounter Details Date Type Department Care Team (Late st Contact Info) Description 09/06/2022 9:50 AM WELDER REPAIR Lab [facility] [place] [address] Arthralgia, unspecified joint; Myalgia; Essential hypertension; XENA (generalized anxiety disorder) Social History Tobacco Use Types Packs/Day Years [...] on file 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 WELDER REPAIR Gender Identity Female 03/27/2020 5:01 PM CDT Sexual Orientation Lesbian 03/27/2020 5: 01 PM CDT documented as of this encounter Plan of Treatment Not on file documented as of this encounter Procedures Procedure Name Priority Date/Time Associated Diagnosis Comments LIZZY QUALITATIVE WITH REFLEX TO LIZZY QUANTITATIVE Routine 09/06/2022 9:58 AM WELDER REPAIR Arthralgia, unspecified joint Myalgia ANTI-DOUBLE STRANDED DNA ANTIBODIES Routine 09/06/2022 9:58 AM WELDER REPAIR Arthralgia, unspecified joint Myalgia EGFR Routine 09/06/2022 9:58 AM WELDER REPAIR Arthralgia, unspecified joint Myalgia Essential hypertension DIFFERENTIAL AUTO Routine 09/06/2022 9:5 8 AM WELDER REPAIR Arthralgia, unspecified joint Myalgia Essential hypertension C4 COMPLEMENT Routine 09/06/2022 9:58 AM WELDER REPAIR Arthralgia, unspecified joint Myalgia VAMSHI ANTIBODY EVALUATION WITH REFLEX Routine 09/06/2022 9:58 AM WELDER REPAIR Arthralgia, unspecified joint Myalgia CBC WITH AUTO DIFFERENTIAL Routine 09/06/2022 9:58 AM WELDER REPAIR Arthralgia, unspecified joint Myalgia Essential hypertension ERYTHROCYTE SEDIMENTATION RATE Routine 09/06/2022 9:58 AM WELDER REPAIR Arthralgia, unspecified joint Myalgia RHEUMATOID FACTOR Routine 09/06/2022 9:5 8 AM WELDER REPAIR Arthralgia, unspecified joint Myalgia C3 COMPLEMENT Routine 09/06/2022 9:58 AM WELDER REPAIR Arthralgia, unspecified joint Myalgia CRP (ACUTE PHASE) Routine 09/06/2022 9:5 8 AM WELDER REPAIR Arthralgia, unspecified joint Myalgia TSH Routine 09/06/2022 9:58 AM WELDER REPAIR Arthralgia, unspecified joint Myalgia Essential hypertension XENA (generalized anxiety disorder) COMPREHENSIVE METABOLIC PANEL Routine 09/06/2022 9:58 AM WELDER REPAIR Arthralgia, unspecified joint Myalgia Essential hypertension documented in this encounter Results * eGFR (09/06/2022 9:58 AM WELDER REPAIR) eGFR 108 mL/min/1. 73 m2 [facility] Comment: Interpretive Data Reference Interval Normal ?>/= 90 mL/min/1.73m2 Mildly decreased* ? 60 - 89 mL/min/1.73m2 Mildly to moderately decreased ?45 - 59 mL/min/1.73m2 Moderately to severely decreased ??30 - 44 mL/min/1.73m2 Severely decreased ?15 - 29 mL/min/1.73m2 Kidney Failure ?< 15 ??mL/min/1.73m2 *Relative to young adult level Estimated glomerular filtration rate is determined by the 2020 CKD-EPI equation recommended by the National Kid[employer] (A Unifying Approach to GFR Estimation: Recommendations of the NKF-ASK Task Force on Reassessing the Inclusion of Race in Diagnosing Kidney Disease, JASN 202). The CKD-EPI equation should not be used for patients with unstable renal function and has not been validated in children and those over 70. Current interpretive data was last reviewed 2021. Blood 09/06/2022 9:58 AM WELDER REPAIR 09/06/2022 12:28 PM WELDER REPAIR us Jeff CASTELLON LAB BLOOD ORDERABLES Final Resu lt [facility] [address] [facility] Department [place] [address] * Differential, auto (09/06/2022 9:58 AM WELDER REPAIR) Pathologist [facility] Neutrophil abs 2.8 1.7 - 6.5 K/cumm [facility] Imm gran abs 0.0 0.0 - 0.1 K/cumm [facility] Lymphocyte abs 1.5 0.8 - 3.3 K/cumm [facility] Monocyte abs 0.4 0.2 - 0.8 K/cumm [facility] Eosinophil abs 0.2 0.0 - 0.5 K/cumm [facility] Basophil abs 0.0 0.0 - 0.1 K/cumm [facility] Neutrophil pct 56.7 % [facility] Comment: Interpretive Data Percent cell count reference ranges are not reported, since discordance with absolute values may lead to misinterpretation of CBC data. Current Interpretive Data was last revised on 2017. Imm gran pct 0.4 % [facility] Comment: Interpretive Data Percent cell count reference ranges are not reported, since discordance with absolute values may lead to misinterpretation of CBC data. Current Interpretive Data was last revised on 2017. Lymphocyte pct 29.8 % [facility] Comment: Interpretive Data Percent cell count reference ranges are not reported, since discordance with absolute values may lead to misinterpretation of CBC data. Current Interpretive Data was last revised on 2017. Monocyte pct 7.6 % [facility] Comment: Interpretive Data Percent cell count reference ranges are not reported, since discordance with absolute values may lead to misinterpretation of CBC data. Current Interpretive Data was last revised on 2017. Eosinophil pct 4.9 % [facility] Comment: Interpretive Data Percent cell count reference ranges are not reported, since discordance with absolute values may lead to misinterpretation of CBC data. Current Interpretive Data was last revised on 2017. Basophil pct 0.6 % [facility] Comment: Interpretive Data Percent cell count reference ranges are not reported, since discordance with absolute values may lead to misinterpretation of CBC data. Current Interpretive Data was last revised on 2017. Blood 09/06/2022 9:58 AM WELDER REPAIR 09/06/2022 12:28 PM WELDER REPAIR us Jeff CASTELLON LAB BLOOD ORDERABLES [facility] [address] [facility] Department [place] [address] * (ABNORMAL) Comprehensive metabolic panel (09/06/2022 9:58 AM WELDER REPAIR) Pathologist [facility] Sodium 139 135 - 145 mmol/L [facility] Potassium, pl 4.3 3.3 - 4.9 mmol/L [facility] Chloride 102 97 - 110 mmol/L [facility] CO2 29 22 - 32 mmol/L [facility] Anion gap 8 2 - 15 mmol/L [facility] BUN 16 8 - 25 mg/dL [facility] Creatinine 0.60 0.60 - 1.10 mg/dL [facility] Glucose 104 70 - 199 mg/dL [facility] Comment: Interpretive Data Fasting glucose >/= 126 [...] 2022. Calcium 9.8 8.5 - 10.3 mg/dL [facility] Bilirubin, total 0.6 0.1 - 1.2 mg/dL [facility] Protein, pl 7.6 6.5 - 8.5 g/dL [facility] Albumin 4.7 3.5 - 5.0 g/dL [facility] Alk phos 157(H) 40 - 130 Units/L [facility] ALT 54(H) 7 - 45 Units/L [facility] AST 91(H) 10 - 45 Units/L [facility] Blood 09/06/2022 9:58 AM WELDER REPAIR 09/06/2022 12:28 PM WELDER REPAIR us Jeff CASTELLON LAB BLOOD ORDERABLES Final Resu lt [facility] [address] [facility] Department [place] [address] * CBC with auto differential (09/06/2022 9:58 AM WELDER REPAIR) WBC 4.9 3.8 - 9.9 K/cumm [facility] Hgb 14.0 11.9 - 15.5 g/dL [facility] Hct 41.6 35.6 - 45.5 % [facility] Plt 341 150 - 400 K/cumm [facility] MPV 9.9 9.1 - 12.3 fL [facility] RBC 4.75 3.90 - 5.20 M/cumm [facility] MCV 87.6 81.3 - 96.4 fL [facility] MCH 29.5 27.1 - 33.3 pg [facility] MCHC 33.7 32.3 - 35.7 g/dL [facility] RDW CV 12.4 11.1 - 14.9 % [facility] RDW SD 39.4 35.7 - 48.1 fL [facility] NRBC abs 0.00 0.00 - 0.01 K/cumm [facility] Blood 09/06/2022 9:58 AM WELDER REPAIR 09/06/2022 12:28 PM WELDER REPAIR us Jeff CASTELLON LAB BLOOD ORDERABLES Final Resu lt [facility] [address] [facility] Department [place] [address] * VAMSHI Antibody Evaluation with Reflex (09/06/2022 9:58 AM WELDER REPAIR) VAMSHI ab Negative Negative [facility] Comment: Interpretive Data Positive Screens will be reflexed to specific testing for the following antigens: Lindsay-1 Ab, SOCIOLOGY PROFESSOR Ab, Scl-70 Ab, Elliott Ab, SS-A/Ro Ab, and SS-B/La Ab. Further testing for dsDNA, Centromere, or Ribosomal P antibodies is suggested in patient with a positive screen and negative specific antibodies. Current interpretive data was last revised on 16. Testing performed by: [facility], [address] [place] [place]., [address] Blood 09/06/2022 9:58 AM WELDER REPAIR 09/06/2022 3:47 PM WELDER REPAIR us Jeff CASTELLON LAB BLOOD ORDERABLES Final Resu lt Performing Organization Address [facility] de Phone Number [address] [address] * LIZZY qualitative with reflex to LIZZY Quantitative (09/06/2022 9:58 AM WELDER REPAIR) LIZZY Negative [facility] Comment: Interpretive Data Normal range for LIZZY [...] last revised on 2020. Testing performed by: [facility], [address] [place] [address]., [id number] Blood 09/06/2022 9:58 AM WELDER REPAIR 09/06/2022 3:47 PM WELDER REPAIR Jeff CASTELLON LAB BLOOD ORDERABLES Final Resu lt Performing Organization Address [facility] de Phone Number [address] [place] [address] * Anti-double stranded DNA antibodies (09/06/2022 9:58 AM WELDER REPAIR) dsDNA Ab 1.0 <=4.0 IUnits/mL [facility] Comment: Interpretive Data Negative: < or = 4 IUnits/mL Indeterminate: 5 - 9 IUnits/mL Positive: > or = 10 IUnits/mL Current interpretive data was last revised on 2017. Testing performed by: [facility], [address] [place] [address]., [id number] Blood 09/06/2022 9:58 AM WELDER REPAIR 09/06/2022 3:47 PM WELDER REPAIR us Jeffregis CASTELLON LAB BLOOD ORDERABLES Final Resu lt Performing Organization Address City/[facility] Co de Phone Number [facility] [address] [address] * C3 complement (09/06/2022 9:58 AM WELDER REPAIR) Complement C3 176.0 90.0 - 180.0 mg/dL [facility] Comment:Testing performed by : [facility], [address] [place] [address]., [id number] Blood 09/06/2022 9:58 AM WELDER REPAIR 09/06/2022 3:47 PM WELDER REPAIR us Jeff CASTELLON LAB BLOOD ORDERABLES Final Resu lt Performing Organization Address [facility] Co de Phone Number IN[address] [address] * C4 complement (09/06/2022 9:58 AM WELDER REPAIR) Complement C4 34.4 10.0 - 40.0 mg/dL [facility] Comment:Testing performed by : [facility], [address] [place] [address]., [id number] Blood 09/06/2022 9:58 AM WELDER REPAIR 09/06/2022 3:47 PM WELDER REPAIR us Jeff CASTELLON LAB BLOOD ORDERABLES Final Resu lt Performing Organization Address City/[facility]/ZIP Co de Phone Number INDIR[address] [place] [address] * Rheumatoid factor (09/06/2022 9:58 AM WELDER REPAIR) Rheumatoid factor, quant 11.0 <=15.0 IUnits/mL [facility] Blood 09/06/2022 9:58 AM WELDER REPAIR 09/06/2022 12:28 PM WELDER REPAIR us Jeff L. Thomas PA LAB BLOOD ORDERABLES Final Resu lt Performing Organization Address [facility]/ZIP Co de Phone Number INDIR[address] [address] * Erythrocyte sedimentation rate (09/06/2022 9:58 AM WELDER REPAIR) Erythrocyte sedimentation rate 23 1 - 30 mm/hr [facility] Blood 09/06/2022 9:58 AM WELDER REPAIR 09/06/2022 12:28 PM WELDER REPAIR us Jeff CASTELLON LAB BLOOD ORDERABLES Final Resu lt Performing Organization Address [facility] Co de Phone Number [address] [place] [address] * CRP (acute phase) (09/06/2022 9:58 AM WELDER REPAIR) CRP 1.1 <=10.0 mg/L [facility] Blood 09/06/2022 9:58 AM WELDER REPAIR 09/06/2022 12:28 PM WELDER REPAIR us Jeff CASTELLON LAB BLOOD ORDERABLES Final Resu lt Performing Organization Address [facility] Co de Phone Number INDIR[address] [place] [address] * TSH (09/06/2022 9:58 AM WELDER REPAIR) Thyroid Stimulating Hormone 1.86 0.30 - 4.20 mcIUnit/mL [facility] Blood 09/06/2022 9:58 AM WELDER REPAIR 09/06/2022 12:28 PM WELDER REPAIR us Jeff CASTELLON LAB BLOOD ORDERABLES Final Resu lt Performing Organization Address [facility]/ZIP Co de Phone Number [address] [place] [address] documented in this encounter Visit Diagnoses Diagnosis Arthralgia, unspecified joint Myalgia Unspecified myalgia and myositis Essential hypertension Unspecified essential hypertension XENA (generalized anxiety disorder) Generalized anxiety disorder documented in this encounter Care Teams Assembler Handbags Relationship Specialty Start Date End Date Jeff Guzman PA [address] [place] [address] PCP - General Family Medicine 06/21/22 02/17/23 Angeles Hernandez MD [address] [place], [place] [id number] Referring Physician Gynecology 07/21/21 documented as of this encounter
--- OUTSIDE RECORDS SUMMARY | 2024-09-03 19:36 | XMS_ITS | Encounter Summary ---
Author Organization [facility] Address [address] [place] [address] Phone Care Team Providers Care Software Quality Tester Name Role Phone Angeles Hernandez MD Unavailable [phone] Reason for Visit * Consultation (Routine) - Closed Specialty Diagnoses / Procedures Referred By Contac t Referred To Contact Cardiology Diagnoses Hypercholesteremia Essential hypertension Vasquez Schneider MD [address] [facility] [address] [place] [address] Phone: tel: fax: [facility] (All Locations) Referral ID Status Reason Start Date Expiration Date V isits Requested Visits Authorized [id number] Closed Specialty Services Required 05/28/2022 06/27/2023 12 12 Encounter Details Date Type Department Care Team (Late st Contact Info) Description 06/01/2022 3:30 PM CDT Office Visit [facility] Cardiology [address] [facility] [address] [place] [address] Vasquez Schneider MD [address] [facility] [address] [place] [address] Hypercholesteremia; Essential hypertension Social History Tobacco Use Types Packs/Day Years [...] on file 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 Gender Identity Female 03/27/2020 5:01 PM CDT Sexual Orientation Lesbian 03/27/2020 5: 01 PM CDT documented as of this encounter Last Filed Vital Signs Vital Sign Reading Time Taken Comments Blood Pressure 144/83 06/01/2022 3:32 PM CDT Pulse 65 06/01/2022 3:32 PM CDT Temperature - - Respiratory Rate - - Oxygen Saturation 100% 06/01/2022 3:32 PM CDT Inhaled Oxygen Concentration - - Weight 76.7 kg (169 lb) 06/01/2022 3:32 PM CDT Height 167.6 cm (5' 5.98 ) 06/01/2022 3:32 PM CD T Body Mass Index 27.29 06/01/2022 3:32 PM CDT documented in this encounter Patient Instructions * Patient Instructions* Vasquez Schneider MD - 06/01/2022 3:30 PM CDT D/c lasix, jardiance , kcl, spironolactone documented in this encounter Progress Notes * Vasquez Schneider MD - 06/01/2022 3:30 PM CDT 06/01/2022 Cardiology Consult Visit Diagnosis: 1. Recovered Nonischemic cardiomyopathy with severe LV systolic dysfunction. LVEDP 42 mm by cardiaccatheterization on 03/03/2022.Status post cardiac catheterization for abnormal cardiac enzymes on 03/03/2022 at [facility] shows no evidence of coronary artery disease. Her echo today showed LVEF 63%. 2. History of COVID-19 infection February of 2022 with COVID pneumonia. History of Present Illness: Chrissy Kilgore is a pleasant 51 y.o. female who presents to [facility] with shortness of breath. She had a cardiac enzymes troponin I positive 10.8 on 03/03/2022. She underwent a left heartcardiac catheterization shows no evidence of coronary disease. Her LVEDP was 42 mm. Her echocardiogram shows severe LV systolic dysfunction. She had a echo today. Her LVEF improved to 63%. She is clinically asymptomatic. She is wearing a life vest. She states she was not in any undue stress at that time she was moving to a different house so she was under stress from moving. No cough. No PND no orthopnea no syncope no palpitation. No bowel or bladder symptoms. No history of ventricular tachycardia. No history of alcohol use or street drug use. Allergies Allergen Reactions Penicillins Hives and Anaphylaxis Anaphylaxis Drug [Sulfamethoxazole-Trimethoprim] Itching and Swelling Facial swelling & widespread itching Tamoxifen Hives Current Outpatient Medications Medication Sig Dispense Refill albuterol (PROAIR DIGIHALER) 90 mcg/actuation inhaler Inhale 2 puffs every 6 (six) hours as needed for wheezing cetirizine (ZyrTEC) 10 mg tablet TAKE 1 TABLET BY MOUTH DAILY 30 tablet 50 docusate sodium (COLACE) 100 mg capsule TAKE 1 CAPSULE BY MOUTH TWICE DAILY 60 capsule 2 Entresto 24-26 mg tablet Take 1 tablet by mouth every 12 (twelve) hours 60 tablet 2 EPINEPHrine 0.3 mg/0.3 mL auto-injection syringe INJECT 0.3 ML(0.3 MG TOTAL) IN THE MUSCLE INSTRUCTED NEEDED FOR ANAPHYLAXIS; CALL 911 AFTER USE 2 each 3 fluticasone propionate (FLONASE) 50 mcg/actuation nasal spray SHAKE LIQUID AND USE 1 SPRAY IN EACH NOSTRIL DAILY NEEDED FOR NASAL CONGESTION furosemide (LASIX) 40 mg tablet Take 1 tablet (40 mg total) by mouth 2 (two) times a day 180 tablet3 HYDROcodone-acetaminophen (NORCO) 5-325 mg per tablet Take 1 tablet by mouth 2 (two) times a day asneeded for pain 60 tablet 0 Jardiance 10 mg tablet Take 1 tablet (10 mg total) by mouth daily 30 tablet 2 levalbuterol (XOPENEX) 1.25 mg/3 mL nebulizer solution levoFLOXacin (LEVAQUIN) 750 mg tablet TAKE 1 TABLET BY MOUTH DAILY FOR 3 DAYS (Patient not taking: Reported on 05/18/2022) LORazepam (ATIVAN) 0.5 mg tablet TAKE 1 TABLET(0.5 MG) BY MOUTH EVERY NIGHT NEEDED FOR INSOMNIA 30 tablet 0 metoprolol tartrate (LOPRESSOR) 25 mg immediate release tablet Take 0.5 tablets (12.5 mg total) by mouth 2 (two) times a day 90 tablet 3 montelukast (SINGULAIR) 10 mg tablet TAKE 1 TABLET(10 MG) BY MOUTH EVERY NIGHT 30 tablet 5 ondansetron ODT (ZOFRAN-ODT) 4 mg disintegrating tablet DISSOLVE 1 TABLET ON THE TONGUE EVERY 6 HOURS NEEDED FOR NAUSEA OR VOMITING pantoprazole DR (PROTONIX) 40 mg EC tablet TAKE 1 TABLET(40 MG) BY MOUTH DAILY 30 tablet 5 potassium chloride ER 20 mEq CR tablet Take 1 tablet (20 mEq total) by mouth 2 (two) times a day 60tablet 2 rosuvastatin (CRESTOR) 5 mg tablet TAKE 1 TABLET(5 MG) BY MOUTH DAILY 30 tablet 2 spironolactone (ALDACTONE) 25 mg tablet Take 1 tablet (25 mg total) by mouth daily 30 tablet 11 tiZANidine (ZANAFLEX) 4 mg tablet Take 1 tablet (4 mg total) by mouth every 8 (eight) hours as needed for muscle spasms 90 tablet 0 traMADoL (ULTRAM) 50 mg tablet TAKE 1 TABLET(50 MG) BY MOUTH EVERY 8 HOURS NEEDED FOR PAIN (Patient not taking: Reported on 05/18/2022) 90 tablet 0 No current facility-administered medications for this visit. Past Medical History: Diagnosis Date Arthritis Asthma Brain concussion [id number] Depression [id number] Epiretinal membrane (ERM), bilateral GERD (gastroesophageal reflux [...] cyst OVARY SURGERY SMALL INTESTINE SURGERY SBO Family History Problem Relation Age of Onset Breast cancer Mother 47 No Known Problems Daughter No Known Problems [...] cancer Neg Hx Thyroid cancer Neg Hx Personal history No history of alcohol use drug use [id number] medication or herbal medication. No history of smoking. Testng: Cath 03/02/2022 ; No CAD noted LVEDP 42 mm of Hg. Echo 71/18875 ; LVEF 20-25%. PASP 49 mm of Hg. Review of Systems Constitutional: Negative for chills, diaphoresis, fatigue and unexpected weight change. HENT: Negative for dental problem, nosebleeds, sore throat and trouble swallowing. Eyes: Negative for visual disturbance. Respiratory: Negative for apnea, cough, chest tightness, shortness of breath and wheezing. Cardiovascular: Negative for chest pain, palpitations and leg swelling. Gastrointestinal: Negative for abdominal distention, abdominal pain, blood in stool, diarrhea and vomiting. Endocrine: Negative for cold intolerance, heat intolerance, polydipsia, polyphagia and polyuria. Genitourinary: Negative for dysuria and hematuria. Musculoskeletal: Negative for arthralgias, back pain, gait problem, joint swelling, myalgias, neck pain and neck stiffness. Allergic/Immunologic: Negative for immunocompromised state. Neurological: Negative for dizziness, seizures, syncope, light-headedness and numbness. Hematological: Negative for adenopathy. Psychiatric/Behavioral: Negative for behavioral problems, hallucinations and sleep disturbance. Thepatient is not nervous/anxious. Blood pressure 144/83, pulse 65, height 167.6 cm (5' 5.98 ), weight 76.7 kg (169 lb), SpO2 100 %. PHYSICAL EXAMINATION Physical Exam Constitutional: Appearance: She is well-developed. HENT: Head: Normocephalic and atraumatic. Eyes: Conjunctiva/sclera: Conjunctivae normal. Pupils: Pupils are equal, round, and reactive to light. Comments: No Xanthelasma Neck: Thyroid: No thyromegaly. Vascular: No JVD. Cardiovascular: Rate and Rhythm: Normal rate and regular rhythm. Pulses: Intact distal pulses. Heart sounds: Normal heart sounds. No murmur heard. No friction rub. No gallop. Comments: S3 noted. Pulmonary: Effort: Pulmonary effort is normal. No respiratory distress. Breath sounds: Normal breath sounds. No wheezing or rales. Chest: Chest wall: No tenderness. Abdominal: General: Bowel sounds are normal. Palpations: Abdomen is soft. There is no mass. Tenderness: There is no abdominal tenderness. Musculoskeletal: General: No tenderness. Normal range of motion. Cervical back: Neck supple. Skin: General: Skin is warm and dry. Findings: No erythema or rash. Neurological: Mental Status: She is alert and oriented to person, place, and time. Deep Tendon Reflexes: Reflexes are normal and symmetric. Lab Results Component Value Date WBC 7.3 11/18/2021 HGB 14.7 11/18/2021 HCT 44.5 11/18/2021 LABPLAT 267 11/18/2021 CHOL 198 10/06/2021 TRIG 110 10/06/2021 HDL 95 10/06/2021 AST 87 (H) 11/18/2021 SODIUM 137 05/18/2022 POTASSIUM 4.5 05/18/2022 CHLORIDE 101 05/18/2022 CREATININE 0.80 05/18/2022 BUNSER 13 05/18/2022 CO2 26 05/18/2022 TSH 0.61 11/18/2021 ECG ; sinus rhythm nonspecific T-wave changes noted in V3 to V6 1 and aVL low- voltage EKG heart rate 64 beats per minute. QTC interval 387 millisecond Echo 06/01/2022 SUMMARY: LA is normal. Normal RV cavity [...] stress induced or reversible form of cardiomyopathy. Assesment/Plan: 1. Possible Stress induced Cardiomyopathy. ; Her LVEF recovered to 63%. She had a severe LV systolic dysfunction and high LVEDP; this could be stress-induced cardiomyopathy but she also had a COVID pneumonia can not rule out COVID myocarditis. She will stop spironolactone, lasix ,kcl, Jardiance . she is already tolerating metoprolol tartrate 12.5 mg twice a day . She can stop wearing life vest, she does not need it . 2. Dyslipidemia she is on rosuvastatin 5 mg a day low-fat diet. Thank you for letting me participating in this patient care. Please feel free to call me or my office for any cardiac questions . Vasquez Schneider M.D., Joann.Noah. general engineering teacher [facility]. [place] This note contains information and findings from prior encounters which remain the same for today'sencounter. I have reviewed and made updates where applicable. This note was written using a voice recognition system hardware device. Please note there may be variance in spelling, grammar, and syntax because of the voice recognition system hardware. Therefor, not every sentence has been reviewed in its entirety. If there are any concerns about verbage above please contact me at [phone]. documented in this encounter Plan of Treatment Not on file documented as of this encounter Visit Diagnoses Diagnosis Hypercholesteremia Pure hypercholesterolemia Essential hypertension Unspecified essential hypertension documented in this encounter Discontinued Medications Medication Sig Discontinue Reason Start Date End Da te Jardiance 10 mg tablet Take 1 tablet (10 mg total) by mouth daily 04/02/2022 06/01/2022 furosemide (LASIX) 40 mg tabletIndications:Essenti al hypertension Take 1 tablet (40 mg total) by mouth 2 (two) times a day 05/06/2022 06/01/2022 potassium chloride ER 20 mEq CR tablet Take 1 tablet (20 mEq total) by mouth 2 (two) times a day 04/02/2022 06/01/2022 spironolactone (ALDACTONE) 25 mg tabletIndications:Broken heart syndrome,Encounter to establish care with new doctor Take 1 tablet (25 mg total) by mouth daily 05/11/2022 06/01/2022 documented as of this encounter Orders Outpatient Referral Count Last Ordered Date Fir st Ordered Date AMB REFERRAL TO CARDIOLOGY 1 06/01/2022 documented in this encounter Care Teams Software Quality Tester Relationship Specialty Start Date End Date Angeles Hernandez MD [address] [place] [address] Referring Physician Gynecology 07/21/21 documented as of this encounter
--- OUTSIDE RECORDS SUMMARY | 2024-09-03 19:36 | XMS_ITS | Encounter Summary ---
Author Organization [facility] Address [address] [place] [address] Phone Care Team Providers Care Manager Investigations Name Role Phone Angeles Hernandez MD Unavailable [phone] Jeff Guzman Primary Care Provider [phone] Reason for Visit * Reason Onset Date Comments peer to peer 06/03/2022 Encounter Details Date Type Department Care Team (Late st Contact Info) Description 06/03/2022 Telephone [facility] Cardiology [address] [place] [address] [place] [address] Vasquez Swanson MD [address] [facility] [address] [place] [address] peer to peer Social History Tobacco Use Types Packs/Day Years [...] on file 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 SWANSON REGARDING PT. NO DETAILS GIVEN Dr. Swanson had called Dr. yLnch a couple of times, there was no answer and no VM set up. Nursing attempted [address] Lynch's office, but busy signal each time was received. * Telephone Encounter - Tom Crawford - 06/03/2022 12:24 PM CDT SKY LYNCH WOULD LIKE A CALL FROM DR. SWANSON REGARDING PT. NO DETAILS GIVEN documented in this encounter Plan of Treatment Not on file documented as of this encounter Visit Diagnoses Not on filedocumented in this encounter Care Teams Manager Investigations Relationship Specialty Start Date End Date Jeff Guzman PA [address] [place] [address] PCP - General Family Medicine 06/21/22 02/17/23 Angeles Hernandez MD [address] [place] [address] Referring Physician Gynecology 07/21/21 documented as of this encounter
--- OUTSIDE RECORDS SUMMARY | 2024-09-03 19:36 | XMS_ITS | Encounter Summary ---
Author Organization [facility] Address [address] [place] [address] Phone Care Team Providers Care Cosmetic Sales Consultant Name Role Phone Angeles Hernandez MD Unavailable [phone] Ramonita Crawford NP Primary Care Provider [phone] Reason for Visit * Reason Comments Cataract Encounter Details Date Type Department Care Team (Late st Contact Info) Description 02/18/2023 8:30 AM CDT Office Visit [facility] Ophthalmology [address] 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 Gender Identity Female 03/27/2020 5:01 PM CDT Sexual Orientation Lesbian 03/27/2020 5: 01 PM CDT documented as of this encounter Progress Notes * Mary Ann Webster MD - 02/18/2023 8:30 AM CDT Assessment/Plan Diagnoses and all orders for this visit: Age-related nuclear cataract of right eye (Primary) Assessment & Plan: Glare and halos BAT mildly significant Follow IOL Master in 2 months, sooner for concerns PCO (posterior capsular opacification), left Assessment & Plan: Open PC Clear view Epiretinal membrane (ERM) of both eyes Assessment & Plan: ERM OS Mac OCT next visit to determine if this is contributing to reduced VA OS I have seen/examined the patient and I agree with the findings/plan of the Resident/Fellow documented in this encounter Miscellaneous Notes * Assessment & Plan Note - Mary Ann Webster MD - 02/18/2023 8:32 AM CDT Associated Problem(s): Pseudophakia of right eye Glare and halos BAT mildly significant Follow IOL Master in 2 months, sooner for concerns * Assessment & Plan Note - Mary Ann Webster MD - 02/18/2023 8:31 AM CDT Associated Problem(s): PCO (posterior capsular opacification), left Open PC Clear view * Assessment & Plan Note - Mary Ann Webster MD - 02/18/2023 8:31 AM CDT Associated Problem(s): Epiretinal membrane (ERM) of both eyes ERM OS Mac OCT next visit to determine if this is contributing to reduced VA OS documented in this encounter Plan of Treatment Not on file documented as of this encounter Visit Diagnoses Diagnosis Age-related nuclear cataract of right eye- Primary PCO (posterior capsular opacification), left Unspecified after-cataract Epiretinal membrane (ERM) of both eyes documented in this encounter Eye Exam Visual Acuity (Snellen - Linear) Right eye Left eye Dist sc 20/400 20/300 Dist cc 20/25 20/40 -2 Dist ph cc NI 20/30 Correction: Glasses Tonometry (Applanation, 8:21 AM) Right eye Left eye Pressure 22 21 Pupils Dark Light Shape React APD Right eye 7 4 Round Sluggish None Left eye 7 5 Round Brisk None Visual Phillips Right eye Left eye Full Full Extraocular Movement Right eye Left eye Full Full Neuro/Psych Oriented x3: Yes Mood/Affect: Normal Glare Testing (BAT) High Right eye 20/25 Left eye 20/40 External Exam Right eye Left eye External Normal Normal Slit Lamp Exam Right eye Left eye Lids/Lashes Normal Normal Conjunctiva/Sclera White and quiet White and leland et Cornea Clear Clear Anterior Chamber Deep and quiet Deep and quiet Iris Round and reactive Round and saran ctive Lens 2+ Nuclear sclerosis Posterior c hamber intraocular lens Anterior Vitreous Normal Normal Fundus Exam Right eye Left eye Disc mild cupping mild cupping C/D Ratio 0.6 0.6 Macula Peripapillary atroph y, Epiretinal membrane Epiretinal membrane, Peripapillary atrophy Wearing Rx Sphere Cylinder Rico Add Right eye -2.25 -2.25 095 +2.00 Left eye -1.25 -1.50 040 +2.00 Age: 2yrs Type: bifocal Care Teams Cosmetic Sales Consultant Relationship Specialty Start Date End Date Ramonita Crawford NP [id number] [address] PCP - General Family Medicine 02/18/23 Angeles Hernandez MD [address] [address] Referring Physician Gynecology 07/21/21 documented as of this encounter
--- OUTSIDE RECORDS SUMMARY | 2024-09-03 19:36 | XMS_ITS | Encounter Summary ---
Author Organization [facility] Address [address] [facility] [address] [place] [address] Care Team Providers Care Car Restorer Name Role Phone Angeles Hernandez MD Unavailable [phone] Jeff Guzman Primary Care Provider [phone] Encounter Details Date Type Department Care Team (Late st Contact Info) Description 09/10/2022 Telephone [facility] Family Medicine at [address] [place] [address] Jeff Guzman PA [address] [place] [address] [address] [place] [address] Social History Tobacco Use Types Packs/Day Years [...] on file 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 NER * Telephone Encounter - Rigoberto Morales MA - 09/10/2022 12:37 PM CST ----- Message from Vikki Rust RN sent at 09/09/2022 8:09 AM ALIGNER ----- Regarding: FW: Prior authorization from insurance for my tramadol Contact: Can you please look into and update patient ----- Message ----- From: Chrissy Kilgore Sent: 09/09/2022 7:58 AM ALIGNER To: [facility] [address] Clinical Subject: Prior authorization from insurance for my tr# I am having trouble contacting any of the staff regarding one of my medications. For a couple of months now I have had trouble getting prior authorization for my tramadol. I left numerous messages and nothing has been done about this. If you could please let the appropriate people contact me about my situation. Thank you NER documented in this encounter Plan of Treatment Not on file documented as of this encounter Visit Diagnoses Not on filedocumented in this encounter Care Teams Car Restorer Relationship Specialty Start Date End Date Jeff Guzman PA [address] [place] [address] PCP - General Family Medicine 06/21/22 02/17/23 Angeles Hernandez MD [address] [place] [address] Referring Physician Gynecology 07/21/21 documented as of this encounter
--- OUTSIDE RECORDS SUMMARY | 2024-09-03 19:36 | XMS_ITS | Encounter Summary ---
Author Organization [facility] Healthcare Address [address] [place] [address] Care Team Providers Care Classroom Instructional Aide Name Role Phone Angeles Hernandez MD Unavailable [phone] Jeff Guzman Primary Care Provider [phone] Reason for Referral * Diagnostic Imaging (Routine) - Closed Specialty Diagnoses / Procedures Referred By Sharlene angulo Referred To Contact Diagnoses Atypical lobular hyperplasia (ALH) of left breast Family history of breast cancer Breast pain, left Procedures US Breast Left Limited Rachel Kay MD [address] [address] Phone: tel: fax: [address] [phone] Referral ID Status Reason Start Date Expiration Date Visits Re quested Visits Authorized [id number] Closed 05/18/2022 06/17/2023 1 1 D INSPECTOR Reason for Visit * Diagnostic Imaging (Routine) - Closed Specialty Diagnoses / Procedures Referred By Contcosme t Referred To Contact Diagnoses Atypical lobular hyperplasia (ALH) of left breast Family history of breast cancer Breast pain, left Procedures US Breast Left Limited Rachel Kay MD [address] [address] [address] Phone: tel: fax: [address] [phone] Referral ID Status Reason Start Date Expiration Date Visits Re quested Visits Authorized [id number] Closed 05/18/2022 06/17/2023 1 1 Encounter Details Date Type Department Care Team (Latest Contact Info) Description 07/23/2022 11:58 AM BRAND INSPECTOR - 07/23/2022 11:59 PM BRAND INSPECTOR Hospital Encounter [facility] [address] [place] [address] Rachel Kay MD [address] [place] [address] 1, Jocy Bradshaw Md Atypical lobular hyperplasia (ALH) of left breast; Family history of breast cancer; Breast pain, left Discharge Disposition: Discharge to home or self [...] on file 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 BRAND INSPECTOR Gender Identity Female 03/27/2020 5:01 PM CDT [...] every 12 (twelve) hours 60 tablet 2 07/12/2022 3 fluticasone propionate (FLONASE) 50 mcg/actuation nasal spray SHAKE LIQUID AND USE 1 SPRAY IN EACH NOSTRIL DAILY NEEDED FOR NASAL CONGESTION 03/26/2021 3 HYDROcodone-acetami nophen (NORCO) 5-325 mg per tabletIndications:A rthralgia of both hands Take 1 tablet by mouth 2 (two) times a day as needed for pain 60 tablet 05/04/2022 3 levalbuterol (XOPENEX) 1.25 mg/3 mL nebulizer solution 03/06/2022 2 levoFLOXacin (LEVAQUIN) 750 mg tablet 03/06/2022 3 LORazepam (ATIVAN) 0.5 mg tabletIndications:P sychophysiological insomnia TAKE 1 TABLET(0.5 MG) BY MOUTH EVERY NIGHT NEEDED FOR INSOMNIA 30 tablet 07/13/2022 3 metoprolol tartrate (LOPRESSOR) 25 mg immediate release [...] MOUTH DAILY 30 tablet 5 12/22/2021 3 rosuvastatin (CRESTOR) 5 mg tabletIndications:H ypercholesteremia Take 1 tablet (5 mg total) by mouth daily 30 tablet 2 07/14/2022 3 tiZANidine (ZANAFLEX) 4 mg tabletIndications:M uscle pain Take 1 tablet (4 mg total) by mouth every 8 (eight) hours as needed for muscle spasms 90 tablet 06/18/2022 2 traMADoL (ULTRAM) 50 mg tabletIndications:N popeye pain Take 1 tablet (50 mg total) by mouth every 8 (eight) hours as needed for pain 90 tablet 07/09/2022 2 documented as of this encounter Discharge Disposition Disposition Code Departure Means Destination Discharge to home or self care documented in this encounter Plan of Treatment Not on file documented as of this encounter Procedures Procedure Name Priority Date/Time Associated Diagnosis Comments US BREAST LEFT LIMITED Schedule Routine, Read Routine (OP Routine) 07/23/2022 1:20 PM BRAND INSPECTOR Atypical lobular hyperplasia (ALH) of left breast Family history of breast cancer Breast pain, left documented in this encounter Results * US Breast Left Limited (07/23/2022 1:20 PM BRAND INSPECTOR) Anatomical Region Laterality Modality Breast Left Ultrasound 07/23/2022 1:27 PM BRAND INSPECTOR Impressions 07/23/2022 1:27 PM BRAND INSPECTOR No evidence of malignancy in the left breast. OVERALL FINAL ASSESSMENT: BI-RADS Category 2: Benign. RECOMMENDATION: Annual screening mammography is recommended. Electronically signed by: Mary Blevins M.D. Narrative 07/23/2022 1:27 PM BRAND INSPECTOR EXAMINATION: LEFT UNILATERAL DIGITAL DIAGNOSTIC MAMMOGRAM AND [...] Diagnosis Atypical lobular hyperplasia (ALH) of left breast Family history of breast cancer Family history of malignant neoplasm of breast Breast pain, left documented in this encounter Care Teams Classroom Instructional Aide Relationship Specialty Start Date End Date Jeff Guzman PA [address] [place] [address] PCP - General Family Medicine 06/21/22 02/17/23 Angeles Hernandez MD [address] [place] [address] Referring Physician Gynecology 07/21/21 documented as of this encounter
--- OUTSIDE RECORDS SUMMARY | 2024-09-03 19:36 | XMS_ITS | Encounter Summary ---
Author Organization [facility] Healthcare Address [address] [place] [address] Care Team Providers Care Concierge Name Role Phone Angeles Hernandez MD Unavailable [phone] Jeff Guzman Primary Care Provider [phone] Reason for Referral * Diagnostic Imaging (Routine) - Closed Specialty Diagnoses / Procedures Referred By Sharlene angulo Referred To Contact Diagnoses Breast pain, left Atypical lobular hyperplasia (ALH) of left breast Family history of breast cancer Procedures Diagnostic Mammogram Left W Darren Diagnostic Mammogram Bilateral W Darren Rachel Kay MD [address] [place] [address] Phone: tel: fax: [address] [phone] Referral ID Status Reason Start Date Expiration Date Visits Re quested Visits Authorized [id number] Closed 06/15/2022 07/15/2023 1 1 GION TEACHER Reason for Visit * Diagnostic Imaging (Routine) - Closed Specialty Diagnoses / Procedures Referred By Sharlene angulo Referred To Contact Diagnoses Breast pain, left Atypical lobular hyperplasia (ALH) of left breast Family history of breast cancer Procedures Diagnostic Mammogram Left W Darren Diagnostic Mammogram Bilateral W Darren Rachel Kay MD [address] [place] [address] Phone: tel: fax: [address] [phone] Referral ID Status Reason Start Date Expiration Date Visits Re quested Visits Authorized [id number] Closed 06/15/2022 07/15/2023 1 1 Encounter Details Date Type Department Care Team (Latest Contact Info) Description 07/23/2022 11:57 AM RELIGION TEACHER Hospital Encounter [facility] Imaging and Radiology [address] [place] [address] [place] Lake[place]achel [place] MD [address] [place] [address] 1, Jocy Bradshaw Md Breast pain, left; Atypical lobular hyperplasia (ALH) of left breast; Family history of breast cancer Discharge Disposition: [...] on file 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 Gender Identity Female 03/27/2020 5:01 PM CDT [...] Procedure Name Priority Date/Time Associated Diagnosis Comments DIAGNOSTIC MAMMOGRAM LEFT W DARREN Schedule Routine, Read Routine (OP Routine) 07/23/2022 12:30 PM RELIGION TEACHER Breast pain, left Atypical lobular hyperplasia (ALH) of left breast Family history of breast cancer documented in this encounter Results * Diagnostic Mammogram Left W Darren (07/23/2022 12:30 PM RELIGION TEACHER) Anatomical Region Laterality Modality Breast Left Mammography 07/23/2022 1:27 PM RELIGION TEACHER Impressions 07/23/2022 1:27 PM RELIGION TEACHER No evidence of malignancy in the left breast. OVERALL FINAL ASSESSMENT: BI-RADS Category 2: Benign. RECOMMENDATION: Annual screening mammography is recommended. Electronically signed by: Mary Blevins M.D. Narrative 07/23/2022 1:27 PM RELIGION TEACHER EXAMINATION: LEFT UNILATERAL DIGITAL DIAGNOSTIC MAMMOGRAM AND [...] this encounter Visit Diagnoses Diagnosis Breast pain, left Atypical lobular hyperplasia (ALH) of left breast Family history of breast cancer Family history of malignant neoplasm of breast documented in this encounter Care Teams Concierge Relationship Specialty Start Date End Date Jeff Guzman PA [address] [place] [address] PCP - General Family Medicine 06/21/22 02/17/23 Angeles Hernandez MD [address] [place] [address] Referring Physician Gynecology 07/21/21 documented as of this encounter
--- OUTSIDE RECORDS SUMMARY | 2024-09-03 19:36 | XMS_ITS | Encounter Summary ---
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 Gender Identity Female 03/27/2020 5:01 PM CDT Sexual Orientation Lesbian 03/27/2020 5: 01 PM CDT documented as of this encounter Plan of Treatment Not on file documented as of this encounter Procedures Procedure Name Priority Date/Time Associated Diagnosis Comments EGFR Routine 05/18/2022 8:57 AM CDT Broken heart syndrome Encounter to establish care with new doctor PRO B-TYPE NATRIURETIC PEPTIDE Routine 05/18/2022 8:57 AM CDT Broken heart syndrome Encounter to establish care with new doctor BASIC METABOLIC PANEL Routine 05/18/2022 8:57 AM CDT Broken heart syndrome Encounter to establish care with new doctor documented in this encounter Results * eGFR (05/18/2022 8:57 AM CDT) eGFR 89 mL/min/1. 73 m2 SHELBY CRUZ Comment: Interpretive Data Reference Interval Normal ?>/= [...] of Race in Diagnosing Kidney Disease, JASN 2020). The CKD-EPI equation should not be used for patients with unstable renal function and has not been validated in children and those over 70. Current interpretive data was last reviewed 2021. Testing performed by: [facility], [facility] [address], [place] [address] Blood 05/18/2022 8:57 AM CDT 05/18/2022 8:57 AM CDT us Vasquez Schneider MD LAB BLOOD ORDERABLES Final Res ult SHELBY [address] Department [place] [address] * Pro B-type natriuretic peptide (05/18/2022 8:57 AM CDT) NT-proBNP 14 <=300 pg/mL SHELBY NANCY Comment: Interpretive Comments: A. Dyspnea in Acute Care Setting All Ages: ?< 300 pg/ml, acute heart failure unlikely. < 50 yrs: ?300 - 450 pg/ml, further investigation warranted. ? > 450 pg/ml, acute heart failure likely. 50 - 74 yrs: ? 300 - 900 pg/ml, further investigation warranted. ? > 900 pg/ml, acute heart failure likely . > or = 75 yrs: ? 450 - 1800 pg/ml, further investigation warranted. ? > 1800 pg/ml, acute heart failure likely. B. Non-acute Setting < 75 yrs ? < 125 pg/ml, rules out heart failure. ? > or = 125 pg/ml, further investigation warranted. > or = 75 yrs ?< 450 pg/ml, rules out heart failure. ? > or = 450 pg/ml, further investigation warranted. - Knowledge of each individual patient's NT-proBNP range may be more useful than using similar cut-points for every patient. Please note that marked elevations in NT-proBNP levels may be observed in state other than Left Ventricular Congestive Failure, including: acute coronary syndromes, right heart strain/failure (including pulmonary embolism and cor pulmonale), critical illness, renal failure, as well as advanced age. - References: 1. Mitzi SOTELO et.al. Eur Heart J. 2006:27:330-337. 2. Yudelka LAURA, Cynthia HAGAN. J. AM Meron Cardiol: Cardiovasc Imag. 2009;2: 216- 225. Interpretive Data Last Revised Date: 2018. [facility] [address], [place] [address] Blood 05/18/2022 8:57 AM CDT 05/18/2022 8:57 AM CDT us Vasquez Schneider MD LAB BLOOD ORDERABLES Final Res ult [facility] [address] [address] Department of Laboratories [place], [place] [id number] * (ABNORMAL) Basic metabolic panel (05/18/2022 8:57 AM CDT) Sodium 137 135 - 145 mmol/L CERNER Comment:[facility] [address], [place] [address] Potassium, pl 4.5 3.3 - 4.9 mmol/L CERNER Comment:[facility] performed [facility] [address], [place] [address] Chloride 101 97 - 110 mmol/L CERNER Comment:Testing performed [facility] : [facility] [address], [place] [address] CO2 26 22 - 32 mmol/L CERNER Comment:Testing performed [facility] : [facility] [address], [place] [address] Anion gap 10 2 - 15 mmol/L CERNER Comment:[facility] performed [facility] [address], [place] [address] BUN 13 8 - 25 mg/dL CERNER Comment:[facility] performed [facility] [address], [place] [address] Creatinine 0.80 0.60 - 1.10 mg/dL CERNER Comment:[facility] [address], [place] [address] Glucose 107 70 - 199 mg/dL CERNER Comment: Interpretive Data Fasting glucose >/= 126 [...] classification and Diagnosis of Diabetes Diabetes Care 2017;40 (Suppl. 1):S11. Current interpretive data was last revised 2017. Testing performed by: [facility], [address] [place] [address] Calcium 10.6(H) 8.5 - 10.3 mg/dL SHELBY CRUZ Comment:Testing performed by : [facility], [address] [address] Blood 05/18/2022 8:57 AM CDT 05/18/2022 8:57 AM CDT us Vasquez Schneider MD LAB BLOOD ORDERABLES Final Res ult SHELBY CRUZ [address] [place] [address] documented in this encounter Visit Diagnoses Diagnosis Broken heart syndrome Takotsubo syndrome Encounter to establish care with new doctor documented in this encounter Care Teams Die Repairer Forging Relationship Specialty Start Date End Date Angeles Hernandez MD [address] [address] Referring Physician Gynecology 07/21/21 documented as of this encounter
--- OUTSIDE RECORDS SUMMARY | 2024-09-03 19:36 | XMS_ITS | Encounter Summary ---
Author Organization [facility] Address [address] [place] [address] Care Team Providers Care Oven Press Tender Name Role Phone Angeles Hernandez MD Unavailable [phone] Jeff Guzman Primary Care Provider [phone] Reason for Visit * Reason Onset Date Comments error 07/28/2022 Encounter Details Date Type Department Care Team ([facility] st Contact Info) Description 07/28/2022 Telephone [facility] Family Medicine at [address] [place] [phone] Jeff Guzman PA [address] [place] [address] [address] [place] [address] error Social History Tobacco Use Types Packs/Day Years [...] on file 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 Gender Identity Female 03/27/2020 5:01 PM CDT Sexual Orientation Lesbian 03/27/2020 5: 01 PM CDT documented as of this encounter Miscellaneous Notes * Telephone Encounter - Rachel Butler - 07/29/2022 10:58 AM CST error RATORY AIDE documented in this encounter Plan of Treatment Not on file documented as of this encounter Visit Diagnoses Not on filedocumented in this encounter Care Teams Oven Press Tender Relationship Specialty Start Date End Date Jeff Guzman PA [address] [place] [address] PCP - General Family Medicine 06/21/22 02/17/23 Angeles Hernandez MD [address] [place] [address] Referring Physician Gynecology 07/21/21 documented as of this encounter
--- OUTSIDE RECORDS SUMMARY | 2024-09-03 19:36 | XMS_ITS | Encounter Summary ---
Author Organization [facility] Healthcare Address [address] [place] [address] Care Team Providers Care Seo Expert Name Role Phone Angeles Hernandez MD Unavailable [phone] Ramonita Crawford NP Primary Care Provider [phone] Reason for Visit * Auth/Cert (Routine) Specialty Diagnoses / Procedures Referred By Contac t Referred To Contact Diagnoses Right upper quadrant pain Nausea Abnormal findings on dx imaging of prt digestive tract Right upper quadrant pain [R10.11] Nausea [R11.0] Abnormal findings on dx imaging of prt digestive tract [R93.3] Procedures ERCP; Admit to [facility] Referral ID Status Reason Start Date Expiration Date Visits Re quested Visits Authorized [id number] 1 1 Encounter Details Date Type Department Care Team (Latest Contact Info) Description 05/11/2023 3:00 PM CDT - 05/11/2023 3:30 PM CDT Surgery [facility] [address] [place] [id number] Jordan Duff MD [address] [facility] [address] [place] [address] ENDO ENDOSCOPIC RETROGRADE CHOLANGIOPANCREATOGRAPHY WITH REMOVAL FOREIGN BODY/STENT Surgery Details Date/Time Status Location OR Service Patient Class Case Class Case Type Trauma Case? 05/11/2023 3:00 PM Posted [facility] ENDOSCOPY GI 09 Gastroenterology Inpatient Elective Panel 1 Procedure LRB Anes Op Region Wound Class Comments ENDO ENDOSCOPIC RETROGRADE CHOLANGIOPANCREATOGRAPHY WITH REMOVAL FOREIGN BODY/STENT N/A Choice ENDO ADD ON ENDOSCOPIC RETRO GRADE CHOLANGIOPANCREATOGRAPHY WITH REMOVAL FOREIGN BODY/STENT N/A Choice Surgeon Surgeon Role Service Panel [...] often do you attend chur ch or episcopal services? 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 Abdomen: Bowel sounds positive. Sales Solutions Associate: Alert, awake, oriented x3. There is no gross focal neurological deficit. Extremities: There is no pedal edema. PLAN So the plan will be to continue present medications, send the patient home and follow up with Dr. Duff's office in 6-8 weeks. Patient has been advised to follow the strict low-fat diet and to avoid alcohol and smoking. Job ID/Internal Job ID: [id number] documented in this encounter Discharge Instructions * Attachments The following attachments cannot be sent through Care Everywhere. * Low Fat Diet (Discharge Care) (Turkmen) documented in this encounter Medications at Time [...] History: Diagnosis Date Arthritis Asthma Brain concussion [id number] Cardiomyopathy (HCC) Cataract Cholelithiasis Depression [id number] Epiretinal membrane (ERM), bilateral GERD (gastroesophageal reflux [...] NPO Diet Diet effective midnight 05/10/23 1058 09/19/23 0500 Adult Diet Clear Liquid (Order Panel) Effective tomorrow Question: ([facility]) Diet type Answer: Clear Liquid 05/09/23 5317 Nutrition Needs Calculations: Calculated Energy Needs Using [...] do just ice chips and sips per OCCUPATIONAL HEALTH NURSING DIRECTOR notes. Attempted visit but RN reported pt was not appropriate for RD assessment at that time, ACCOUNTING ANALYST called and pt given narcan per notes. [...] Madyson Mcdonald RD,LD * Maria Del Rosario Blanco, IGNACIO - 05/10/2023 10:30 AM CDT Gastroenterology Daily [...] NP 05/10/2023 This note was transcribed using M-[employer] Speech Recognition software. As a result, there [...] oral, Q4H PRN, 650 mg at 05/09/23 5737 albuterol 2.5 mg /3 mL (0.083 %) [...] and patient improves symptomatically. Kaycee Reece MD [facility] * Ruslan [facility] - 05/09/2023 5:08 PM CDT [...] CV: S1-S2. ABDOMEN: Distal bowel sounds positive. SMALL ENGINE TECHNICIAN: Alert, awake, oriented x3. There is no [...] patient improves symptomatically. Job ID/Internal Job ID: [id number] documented in this encounter Procedure Notes * Jordan Duff MD - 05/11/2023 2:11 PM CDTAssociated Order(s): ERCP ENDOSCOPY LAB Patient Name: Chrissy Kilgore Procedure Date: 05/11/2023 2:11 PM Admit Type: Inpatient Room: [facility] Date of : 1970 Instrument Name: [id number] [...] one pancreatic stents were visible on the dinkey driver film. The esophagus was successfully intubated under [...] discussed. Start a fat-selective diet using preferentially [place] 3-rich sources, healthier and in our experience [...] drowsy. - Call our office as needed ([phone]). If ER visit is needed, make sure [...] 05/09/2023 9:44 AM Admit Type: Outpatient Room: [facility] 9 Date of : 1970 Instrument Name: [id number] Gender: Female Note Status: Finalized Procedure: ERCP Indications: Post-cholecystectomy abdominal pain, persistent nausea Providers: Jordan Duff M.D. Referring MD: Ethan Arce M.D., Ramonita Crawford F.N.P. Medicines: Propofol per Anesthesia Complications: No immediate complications. Estimated Blood Loss: Estimated blood loss: none. Procedure: The benefits, risks, and alternatives to the procedure and sedation were discussed and informed consent was obtained. The [id number] was introduced through the mouth, and used to inject contrast into and used to inject contrast into the bile duct and ventral pancreatic duct. Findings: A dinkey driver film of the abdomen was obtained and [...] Rapid Response Team Event Note Reason for ACCOUNTING ANALYST: Apnea, somnolence Time Called: 1145 Time Arrived: 1150 SUBJECTIVE BRIEF HX: Patient is a 52 y.o. female with past medical history of asthma, GERD, cholelithiasis, HTN, IBS admitted on 05/09/[address] Duff. POD#1 ACCOUNTING ANALYST was called 2/2 apnea and altered mental [...] History: Diagnosis Date Arthritis Asthma Brain concussion [id number] Cardiomyopathy (HCC) Cataract Cholelithiasis Depression [id number] Epiretinal membrane (ERM), bilateral GERD (gastroesophageal reflux [...] zanaflex #Lethargy 2/2 medications -Multiple medications with SMALL ENGINE TECHNICIAN depression: dilaudid, compazine, and PRN ativan -Caution [...] Coverage: yes- medicaid Prescription Coverage: yes Pharmacy: [facility] #[id number] - [place] - [address] AT [facility] [address] [id number] Primary Care Provider: Ramonita Crawford NP Prior to Admission: Functional Status: Independent with ADLs Primary Caregiver: Self Support System: Spouse/Significant Other Support system contact info (name, phone, availablity): garry jasso [phone] Home Care Services: No Durable Medical Equipment: [...] or slept in ashelter (including now)?: No (05/10/231139) Social Connections: In a typical week, how many times do you talk on the phone with family, friends, or neighbors?: More than three times a week How often do you get together with friends or relatives?: More than three times a week How often do you attend samaritan or episcopal services?: Never Do you belong to any clubs or organizations such as samaritan groups, unions, fraternal or athletic groups, or [...] Behavioral Health Services: Behavioral Health Services: No (05/10/23 1138) Patient expects to be Discharged to: Private residence, (05/09/23 2873) Additional Information: CM met with pt at [...] Collaboration with patient, MD, direct care nurse, Supervisor [place], and other members of the health care team to assure needed interventions completed. 2. Return patient to optimal level of self-care post discharge. 3. Para Operator will follow for Discharge Planning - interventions [...] and Pancreatic (05/11/2023 2:33 PM CDT) Narrative RAD_PACS_[facility] - 05/11/2023 2:34 PM CDT The images from this study are not interpreted by Radiology. ??Please refer to the physician's procedure / OR operative note. us Jordna Duff MD IMG FLUOROSCOPY PROCEDURES Final Result RAD_PACS_[facility] * ERCP (05/11/2023 2:11 PM CDT) Anatomical Region Laterality Modality Other Narrative Procedure Note Jordan Duff MD - 05/11/2023 2:11 PM CDT ENDOSCOPY LAB Patient Name: Chrissy Kilgore Procedure Date: 05/11/2023 2:11 PM Admit Type: Inpatient Room: [facility] 9 Date of : 1970 Instrument Name: [id number] Gender: Female Note Status: Finalized Procedure: ERCP Indications: Stent removal after wide biliary/pancreatic ES Providers: Jordan Duff M.D. Referring MD: Ramonita Crawford F.N.P., Ethan Arce M.D. Medicines: Propofol per Anesthesia [...] one pancreatic stents were visible on the dinkey driver film. The esophagus was successfully intubated under [...] drowsy. - Call our office as needed ([phone]). If ER visit is needed, make sure [...] Neutrophil abs 5.5 1.7 - 6.5 K/cumm [facility] Imm gran abs 0.0 0.0 - 0.1 K/cumm [facility] Lymphocyte abs 1.2 0.8 - 3.3 K/cumm [facility] Monocyte abs 0.4 0.2 - 0.8 K/cumm [facility] Eosinophil abs 0.2 0.0 - 0.5 K/cumm [facility] Basophil abs 0.0 0.0 - 0.1 K/cumm [facility] Neutrophil pct 75.8 % [facility] Comment: Interpretive Data Percent cell count reference ranges are not reported, since discordance with absolute values may lead to misinterpretation of CBC data. Current Interpretive Data was last revised on 2017. Imm gran pct 0.3 % [facility] Comment: Interpretive Data Percent cell count reference ranges are not reported, since discordance with absolute values may lead to misinterpretation of CBC data. Current Interpretive Data was last revised on 2017. Lymphocyte pct 16.0 % [facility] Comment: Interpretive Data Percent cell count reference ranges are not reported, since discordance with absolute values may lead to misinterpretation of CBC data. Current Interpretive Data was last revised on 2017. Monocyte pct 5.3 % [facility] Comment: Interpretive Data Percent cell count reference ranges are not reported, since discordance with absolute values may lead to misinterpretation of CBC data. Current Interpretive Data was last revised on 2017. Eosinophil pct 2.2 % [facility] Comment: Interpretive Data Percent cell count reference ranges are not reported, since discordance with absolute values may lead to misinterpretation of CBC data. Current Interpretive Data was last revised on 2017. Basophil pct 0.4 % [facility] Comment: Interpretive Data Percent cell count reference ranges are not reported, since discordance with absolute values may lead to misinterpretation of CBC data. Current Interpretive Data was last revised on 2017. Blood 05/10/2023 7:24 AM CDT 05/10/2023 7:30 AM CDT us Jordan Duff MD LAB BLOOD ORDERABLES Final Result [facility] [address] Department [place] [address] * CBC with auto differential (05/10/2023 7:24 AM CDT) WBC 7.2 3.8 - 9.9 K/cumm [facility] Hgb 12.2 11.9 - 15.5 g/dL [facility] Hct 36.6 35.6 - 45.5 % [facility] Plt 289 150 - 400 K/cumm [facility] MPV 9.4 9.1 - 12.3 fL [facility] RBC 4.19 3.90 - 5.20 M/cumm [facility] MCV 87.4 81.3 - 96.4 fL [facility] MCH 29.1 27.1 - 33.3 pg [facility] MCHC 33.3 32.3 - 35.7 g/dL [facility] RDW CV 12.3 11.1 - 14.9 % [facility] RDW SD 39.0 35.7 - 48.1 fL [facility] NRBC abs 0.00 0.00 - 0.01 K/cumm [facility] Blood 05/10/2023 7:24 AM CDT 05/10/2023 7:30 AM CDT Jordan Duff MD LAB BLOOD ORDERABLES Final Result [facility] [address] Department [place] [address] * ERCP (05/09/2023 9:44 AM CDT) Anatomical Region Laterality Modality Other Narrative Procedure Note Jordan Duff MD - 05/09/2023 9:44 AM CDT ENDOSCOPY LAB Patient Name: Chrissy Kilgore Procedure Date: 05/09/2023 9:44 AM Admit Type: Outpatient Room: [facility] Date of : 1970 Instrument Name: [id number] Gender: Female Note Status: Finalized Procedure: ERCP Indications: Post-cholecystectomy abdominal pain, persistentnausea Providers: Jordan Duff M.D. Referring MD: Ethan Arce M.D., Sofia Bryant. Medicines: Propofol per Anesthesia Complications: No immediate complications. Estimated Blood Loss: Estimated blood loss: none. Procedure: The benefits, risks, and alternatives to theprocedure and sedation were discussed and informed consentwas obtained. The TJF-[id number] was introduced through the mouth, and used to inject contrast into and used to inject contrast into the bile duct and ventral pancreatic duct. Findings: A dinkey driver film of the abdomen was obtained and [...] unspecified S/P ERCP Bilious vomiting with nausea Right upper quadrant pain Abdominal pain, right upper quadrant documented in this encounter Admitting Diagnoses Diagnosis [...] 4 hours PRN, headaches, fever, Starting on Mon 18/23 at 1619 Given 05/09/2023 10:43 PM CDT 650 mg Given 05/09/2023 6:29 PM CDT 650 mg albuterol 2.5 mg /3 mL (0.083 %) nebulizer solution 2.5 mg 2.5 mg, nebulization, Every 4 hours PRN (respiratory care faculty), wheezing, Starting on Tue05/09/23 at 1705, Therapeutic Interchange for Xopenex as approved by [facility] P&T Committee. albuterol HFA (PROVENTIL HFA,VENTOLIN HFA,PROAIR HFA) 90 mcg/actuation inhaler 2 puff 2 puff, inhalation, Every 6 hours PRN (respiratory care faculty), wheezing, Starting on Tue05/09/23 at 1704 aluminum-magnesium [...] infusion 125 mL/hr, intravenous, Continuous, Starting on 05/09/23 at 1700 New Bag 05/11/2023 5:34 AM [...] Transfer Provider - Reason: Patient not available)1628 ([facility] Unhold - Provider: Automatic Transfer Provider) carvediloL (COREG) tablet 3.125 mg 3.125 mg, oral, 2 times daily with meals (bkfst, dinner), First dose on Tue05/09/23 at 1800 1716 (Given - Provider: Shirley Escamilla RN) 0812 (Given - Provider: Deedee Steel, ADAMA)1731 (Given - Provider: Deedee Steel RN) 0910 (Given - Provider: Pamela Marlow, ADAMA)1332 ([facility] Hold - Provider: Automatic Transfer Provider - Reason: Patient not available)162 ([facility] Unhold - Provider: Automatic Transfer Provider)1800 (Due) cetirizine (ZyrTEC) tablet 10 mg 10 mg, oral, Daily, First dose on Tue05/09/23 at 1700 1716 (Given - Provider: Shirley Escamilla RN) 0812 (Given - Provider: Deedee Steel, ADAMA) 0910 (Given - Provider: Pamela Marlow, ADAMA)1332 ([facility] Hold - Provider: Automatic Transfer Provider - Reason: Patient not available)1628 ([facility] Unhold - Provider: Automatic Transfer Provider) docusate sodium (COLACE) capsule 100 mg 100 mg, oral, 2 times daily, First dose on Tue05/09/23 at 2100 2110 (Given - Provider: Aniyah Carney RN) 0812 (Given - Provider: Deedee Steel, ADAMA)2002 (Given - Provider: Yajaira Chen, ADAMA) 09 (Given - Provider: Pamela Marlow, ADAMA)133 ([facility] Hold - Provider: Automatic Transfer Provider - Reason: Patient not available)162 ([facility] Unhold - Provider: Automatic Transfer Provider) fluticasone propionate (FLONASE) 50 mcg/actuation nasal spray 2 spray 2 spray, each nostril, Daily, First dose on Tue05/09/23 at 1700 1734 (Given - Provider: Socorro Gamboa RN) 08 (Given - Provider: Deedee Steel, ADAMA) 09 (Given - Provider: Pamela Marlow, ADAMA)133 ([facility] Hold - Provider: Automatic Transfer Provider - Reason: Patient not available)162 ([facility] Unhold - Provider: Automatic Transfer Provider) levoFLOXacin [...] (Given - Provider: Yajaira Chen, ADAMA) 1331 ([facility] Hold - Provider: Automatic Transfer Provider - Reason: Patient not available)162 ([facility] Unhold - Provider: Automatic Transfer Provider) naloxone [...] 0910 (Given - Provider: Pamela Marlow, ADAMA)1332 ([facility] Hold - Provider: Automatic Transfer Provider - Reason: Patient not available)1628 ([facility] Unhold - Provider: Automatic Transfer Provider) pantoprazole DR (PROTONIX) extended release tablet 40 mg 40 mg, oral, Daily, First dose on Tue05/09/23 at 1700, Do not crush, chew, cut, dissolve, open or otherwise manipulate tablet/capsule., Indications: Treatment of Non-Bleeding Gastric Disorder 1716 (Given - Provider: Shirley Escamilla RN) 0812 (Given - Provider: Deedee Steel, ADAMA) 0910 (Given - Provider: Pamela Marlow, ADAMA)1332 ([facility] Hold - Provider: Automatic Transfer Provider - Reason: Patient not available)1628 ([facility] Unhold - Provider: Automatic Transfer Provider) rosuvastatin (CRESTOR) tablet 5 mg 5 mg, oral, Daily, First dose on Tue05/10/23 at 0900 0812 (Given - Provider: Deedee Steel RN) 0910 (Given - Provider: Pamela Marlow, ADAMA)1332 ([facility] Hold - Provider: Automatic Transfer Provider - Reason: Patient not available)1628 ([facility] Unhold - Provider: Automatic Transfer Provider) sacubitriL-valsartan (ENTRESTO) 24-26 mg tablet 1 tablet 1 tablet, oral, Every 12 hours, First dose on Tue05/09/23 at 1700 1716 (Given - Provider: Shirley Escamilla RN) 0542 (Given - Provider: Aniyah Carney RN)1731 (Given - Provider: Deedee Steel RN) 0438 (Given - Provider: Yajaira Chen RN)1332 ([facility] Hold - Provider: Automatic Transfer Provider - Reason: Patient not available)1628 ([facility] Unhold - Provider: Automatic Transfer Provider)1700 (Due) [...] (GI) 1339 (New Bag - Provider: Hannah Summer Shital, RN)1505 (Stopped - Provider: Adore Kim RN) PRN Medication Order 05/09/2023 05/10/2023 05/11/2023 acetaminophen (TYLENOL) tablet 650 mg 650 mg, oral, Every 4 hours PRN, headaches, fever, Starting on Tue05/09/23 at 1619 1829 (Given - Provider: Shirley Escamilla, ADAMA)2243 (Given - Provider: Aniyah Carney RN) 1332 ([facility] Hold - Provider: Automatic Transfer Provider - Reason: Patient not available)1628 ([facility] Unhold - Provider: Automatic Transfer Provider) albuterol 2.5 mg /3 mL (0.083 %) nebulizer solution 2.5 mg 2.5 mg, nebulization, Every 4 hours PRN (respiratory care faculty), wheezing, Starting on Tue05/09/23 at 1705, Therapeutic Interchange for Xopenex as approved by [facility] P&T Committee. 1332 ([facility] Hold - Provider: Automatic Transfer Provider - Reason: Patient not available)1628 ([facility] Unhold - Provider: Automatic Transfer Provider) albuterol HFA (PROVENTIL HFA,VENTOLIN HFA,PROAIR HFA) 90 mcg/actuation inhaler 2 puff 2 puff, inhalation, Every 6 hours PRN (respiratory care faculty), wheezing, Starting on Tue05/09/23 at 1704 1332 ([facility] Hold - Provider: Automatic Transfer Provider - Reason: Patient not available)1628 ([facility] Unhold - Provider: Automatic Transfer Provider) aluminum-magnesium hydroxide-simethicone (MAALOX) 40-40-4 mg/mL oral suspension 30 mL 30 mL, oral, Every 4 hours PRN, heartburn, Starting on Tue05/10/23 at 1003 1332 ([facility] Hold - Provider: Automatic Transfer Provider - Reason: Patient not available)1628 ([facility] Unhold - Provider: Automatic Transfer Provider) famotidine (PEPCID) tablet 20 mg 20 mg, oral, Every 12 hours PRN, indigestion, heartburn, Starting on Tue05/09/23 at 1619 1716 (Given - Provider: Shirley Escamilla RN) 1332 ([facility] Hold - Provider: Automatic Transfer Provider - Reason: Patient not available)1628 ([facility] Unhold - Provider: Automatic Transfer Provider) HYDROmorphone [...] Shirley Escamilla, ADAMA)2116 (Given - Provider: Aniyah Carney RN) 0415 (Given - Provider: Aniyah Carney RN)0810 (Given - Provider: Deedee Steel RN)1105 (Given - Provider: Deedee Steel RN) 1332 ([facility] Hold - Provider: Automatic Transfer Provider - Reason: Patient not available)1628 ([facility] Unhold - Provider: Automatic Transfer Provider) ioversoL [...] 0910 (Given - Provider: Pamela Marlow, ADAMA)1332 ([facility] Hold - Provider: Automatic Transfer Provider - Reason: Patient not available)1628 ([facility] Unhold - Provider: Automatic Transfer Provider) LORazepam [...] (Given - Provider: Aniyah Carney RN) 1332 ([facility] Hold - Provider: Automatic Transfer Provider - Reason: Patient not available)1628 ([facility] Unhold - Provider: Automatic Transfer Provider) ondansetron [...] (Given - Provider: Deedee Steel RN) 1332 ([facility] Hold - Provider: Automatic Transfer Provider - Reason: Patient not available)1628 ([facility] Unhold - Provider: Automatic Transfer Provider) prochlorperazine (COMPAZINE) injection 5 mg 5 mg, intravenous, Administer over 2 Minutes, Every 6 hours PRN, nausea, vomiting, Starting on Tue05/10/23 at 1046 1108 (Given - Provider: Deedee Steel, ADAMA) 0033 (Given - Provider: Yajaira Chen, ADAMA)1332 ([facility] Hold - Provider: Automatic Transfer Provider - Reason: Patient not available)1628 ([facility] Unhold - Provider: Automatic Transfer Provider) secretin (CHIRHOSTIM) injection (CANCELED) Administer over 1 Minutes, As needed, Starting on Tue05/09/23 at 1013, Intra-Op 1013 (Given - Provider: Aleja Palomo RN) tiZANidine (ZANAFLEX) tablet 4 mg 4 mg, oral, 3 times daily PRN, muscle spasms, Starting on Tue05/09/23 at 1619, Administer on an empty stomach 1332 ([facility] Hold - Provider: Automatic Transfer Provider - Reason: Patient not available)1628 ([facility] Unhold - Provider: Automatic Transfer Provider) No [...] 1 05/09 carvediloL (COREG) tablet 3.125 mg 2022 cetirizine (ZyrTEC) tablet 10 mg 1 [...] 24-26 mg tablet 1 tablet 1 05/09/2023 secretin (CHIRHOSTIM) injection 1 tiZANidine (ZANAFLEX) tablet 4 mg 1 023 [...] 05/10/2023 documented in this encounter Care Teams Seo Expert Relationship Specialty Start Date End Date Ramonita Crawford NP [address] [address] PCP - General Family Medicine 02/18/23 Angeles Hernandez MD [address] [address] Referring Physician Gynecology 07/21/21 documented as of this encounter
--- OUTSIDE RECORDS SUMMARY | 2024-09-03 19:37 | XMS_ITS | Encounter Summary ---
Author Organization [facility] Address [address] [place] [address] Care Team Providers Care Fuel Island Attendant Name Role Phone Angeles Hernandez MD Unavailable [phone] Reason for Visit * Reason Onset Date Comments Request Call Back 03/15/2022 Encounter Details Date Type Department Care Team ([facility] st Contact Info) Description 03/15/2022 Telephone [facility] Family Medicine [address] [place] [phone] Brijesh Lynch MD [address] [place] [address] Request Call Back Social History Tobacco Use Types Packs/Day Years Used Date Smoking Tobacco: Never Smokeless Tobacco: Never Alcohol Use Standard Drinks/Week Comments Never 0 (1 standard drink = 0.6 oz pur e alcohol) AUDIT-C Answer Date Recorded Q1: How often do you have a drink containing alc ohol? Never 11/18/2021 Average Number of Drinks Not on file 022 Q3: How often do you have si x or more drinks on one occasion? 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 What can they be doing for pt due to er Heart condition. Please call pt back and let her know what she can do. [phone] Pt number documented in this encounter Plan of Treatment Not on file documented as of this encounter Visit Diagnoses Not on filedocumented in this encounter Care Teams Fuel Island Attendant Relationship Specialty Start Date End Date Angeles Hernandez MD [address] [address] Referring Physician Gynecology 07/21/21 documented as of this encounter
--- OUTSIDE RECORDS SUMMARY | 2024-09-03 19:37 | XMS_ITS | Encounter Summary ---
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 Gender Identity Female 03/27/2020 5:01 PM CDT Sexual Orientation Lesbian 03/27/2020 5: 01 PM CDT documented as of this encounter Plan of Treatment Not on file documented as of this encounter Procedures Procedure Name Priority Date/Time Associated Diagnosis Comments CARDIOLOGY DOCUMENT SCAN 12/08/2021 documented in this encounter Results * CARDIOLOGY DOCUMENT SCAN (12/08/2021) Anatomical Region Laterality Modality Other us Provider Scanning CV CARDIAC SERVICES PROCEDURES Final Result documented in this encounter Visit Diagnoses Not on filedocumented in this encounter Care Teams Picture Copyist Relationship Specialty Start Date End Date Jeff Guzman PA [address] [place], [place] [id number] PCP - General Family Medicine 06/21/22 02/17/23 Ramonita Crawford NP [address] [id number] PCP - General Family Medicine 02/18/23 Angeles Hernandez MD [address] [place] [address] Referring Physician Gynecology 07/21/21 documented as of this encounter
--- OUTSIDE RECORDS SUMMARY | 2024-09-03 19:37 | XMS_ITS | Encounter Summary ---
Author Organization [facility] Address [address] [place] [address] Care Team Providers Care Product Marketing Coordinator Name Role Phone Angeles Hernandez MD Unavailable [phone] Reason for Visit * Reason Comments Discuss Test Results Encounter Details Date Type Department Care Team ([facility] st Contact Info) Description 12/18/2021 10:30 AM CDT Telemedicine [facility] Family Medicine [address] [place] [address] Jeff Guzman PA [address] [address] Primary osteoarthritis of right knee (Primary Dx); Dilation of biliary tract Social History Tobacco Use Types Packs/Day Years [...] on file 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 female. Chief Complaint Discuss Test Results HPI Patient completed telemedicine visit via video audio. Patient states she still having pain a intermittently she is having pain with eating mimicking gallbladder type pain with bloating cramping afterher meals. X-ray of the knee was also completed we did review this as mild to moderate osteoarthritic changes. We did review patient's CT scan which showed a oddly dilated biliary system. Patient is status post cholecystectomy. We do have concerns with symptoms at this is sphincter of OD dysfunction or stenosis. Patient was advised she has been referred to Dr. Matthews as Gastroenterology evaluation. We have also advised we will order an MRCP for this patient to have completed Review of Systems Constitutional: Negative for fatigue, [...] polyuria. Genitourinary: Negative for dysuria and frequency. Skin: Negative for color change and rash. Neurological: Negative for dizziness, tremors and headaches. Hematological: Does not bruise/bleed easily. Psychiatric/Behavioral: Negative for confusion and dysphoric mood. There were no vitals taken for this visit. Physical Exam Vitals reviewed. Constitutional: General: She is not in acute distress. Appearance: Normal appearance. She is not ill-appearing. HENT: Head: Normocephalic. Eyes: Extraocular Movements: Extraocular movements intact. Conjunctiva/sclera: Right eye: Right conjunctiva is not injected. Left eye: Left conjunctiva is not injected. Pulmonary: Effort: Pulmonary effort is normal. No respiratory distress. Neurological: General: No focal deficit present. Mental Status: She is alert. Psychiatric: Attention and Perception: Attention normal. Mood and Affect: Mood normal. Speech: Speech normal. Behavior: Behavior normal. Behavior is cooperative. Thought Content: Thought content normal. Assessment/Plan Diagnoses and all orders for this visit: Primary osteoarthritis of right knee (M17.11) (Primary) Assessment & Plan: Chronic condition newly diagnosed with x-ray. May use anti-inflammatories as tolerated consider turmeric or natural alternatives including glucosamine chondroitin. 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 Matthews for further workup consider sphincter of OD dysfunction/stenosis Orders: - MRI Abdomen MRCP W WO Contrast; Future This was a telemedicine visit with Chrissy esposito which took place via real-time video connection with [employer]. During the visit, I was located at home and the patient was located at home [facility]. The patient visit started at 10:28 a.m. and ended at 10:35 a.m.. The patient has been informed that the visit may not be secure and acknowledged the information. I have explained the option of participating in a telephone or video visit during the COVID-19 public health emergency to the patient. After being given an opportunity to ask questions about and discuss this type of visit, the patient verbally consented to proceeding with the telephone/video visit.The patient understands that this service replaces an office visit and they may be billed and/or responsible for any applicable copayments. documented in this encounter Miscellaneous Notes * Assessment & Plan Note - Jeff Guzman PA - 12/18/2021 10:37 AM CDT Associated Problem(s): Primary osteoarthritis of right knee Chronic condition newly diagnosed with x-ray. May use anti-inflammatories as tolerated consider turmeric or natural alternatives including glucosamine chondroitin. documented in this encounter Plan of Treatment Not on file documented as of this encounter Visit Diagnoses Diagnosis Primary osteoarthritis of right knee- Primary Dilation of biliary tract documented in this encounter Discontinued Medications Medication Sig Discontinue Reason Start Date End Da te fluconazole (DIFLUCAN) 100 mg tabletIndications:Dysur ia,Yeast vaginitis Take 1 tablet (100 mg total) by mouth daily Therapy completed 09/28/2021 12/18/2021 ibuprofen (ADVIL,MOTRIN) 800 mg tablet Take 1 tablet by mouth every 6 (six) hours as needed Therapy completed 11/13/2020 12/18/2021 methylPREDNISolone (MEDROL DOSEPACK) 4 mg DosepackIndications:Sac roiliitis (HCC) Take as directed on package. Therapy completed 10/27/2021 12/18/2021 documented as of this encounter Care Teams Product Marketing Coordinator Relationship Specialty Start Date End Date Angeles Hernandez MD [address] [address] Referring Physician Gynecology 07/21/21 documented as of this encounter
--- OUTSIDE RECORDS SUMMARY | 2024-09-03 19:37 | XMS_ITS | Encounter Summary ---
Author Organization [facility] Address [address] [place] [address] Care Team Providers Care Winding Machine Operator Name Role Phone Angeles Hernandez MD Unavailable [phone] Reason for Visit * Reason Onset Date Comments Request Call Back 04/02/2022 medications Encounter Details Date Type Department Care Team ([facility] st Contact Info) Description 04/02/2022 Telephone [facility] Family Medicine [address] [place] [phone] Brijesh Lynch MD [address] [place] [address] Request Call Back (medications) Social History Tobacco Use Types Packs/Day Years [...] on file 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 Gender Identity Female 03/27/2020 5:01 PM CDT Sexual Orientation Lesbian 03/27/2020 5: 01 PM CDT documented as of this encounter Ordered Prescriptions Prescription Sig Dispense Quantity Refills Last Filled Start Date End Date potassium chloride ER 20 mEq CR tablet Take 1 tablet (20 mEq total) by mouth 2 (two) times a day 60 tablet 2 04/02/2022 06/01/2022 Jardiance 10 mg tablet Take 1 tablet (10 mg total) by mouth daily 30 tablet 2 04/02/2022 06/01/2022 Entresto 24-26 mg tablet Take 1 tablet by mouth every 12 (twelve) hours 60 tablet 2 04/02/2022 07/12/2022 documented in this encounter Miscellaneous Notes * Telephone Encounter - Patty Villatoro MA - 04/02/2022 2:01 PM CDT Called and spoke to pt requesting refills on the following medication potassium chloride ER 20 mEq CR tablet And Jardiance 10 mg tablet and Entresto 24-26 mg tablet sent * Telephone Encounter - Brittany Nation MA - 04/02/2022 11:46 AM CDT lvm for cb for refills documented in this encounter Plan of Treatment Not on file documented as of this encounter Visit Diagnoses Not on filedocumented in this encounter Discontinued Medications Medication Sig Discontinue Reason Start Date End Da te Jardiance 10 mg tablet Take 10 mg by mouth daily Reorder 03/06/2022 04/02/2022 potassium chloride ER 20 mEq CR tablet Take 20 mEq by mouth Reorder 03/11/2022 04/02/2022 Entresto 24-26 mg tablet Take 1 tablet by mouth every 12 (twelve) hours Reorder 03/09/2022 04/02/2022 documented as of this encounter Care Teams Winding Machine Operator Relationship Specialty Start Date End Date Angeles Hernandez MD [address] [address] Referring Physician Gynecology 07/21/21 documented as of this encounter
--- OUTSIDE RECORDS SUMMARY | 2024-09-03 19:37 | XMS_ITS | Encounter Summary ---
Author Organization [facility] Address [address] [place] [address] Care Team Providers Care Rail Express Clerk Name Role Phone Angeles Hernandez MD Unavailable [phone] Reason for Visit * Reason Onset Date Comments overdue results 03/23/2022 Encounter Details Date Type Department Care Team (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 Gender Identity Female 03/27/2020 5:01 PM CDT Sexual Orientation Lesbian 03/27/2020 5: 01 PM CDT documented as of this encounter Miscellaneous Notes * Telephone Encounter - Vikki Rust RN - 03/23/2022 10:09 AM CDT Letter sent to my chart * Telephone Encounter - Vikki Rust RN - 03/23/2022 9:49 AM CDT MRI not done documented in this encounter Plan of Treatment Not on file documented as of this encounter Visit Diagnoses Not on filedocumented in this encounter Care Teams Rail Express Clerk Relationship Specialty Start Date End Date Angeles Hernandez MD [address] [address] Referring Physician Gynecology 07/21/21 documented as of this encounter
--- OUTSIDE RECORDS SUMMARY | 2024-09-03 19:37 | XMS_ITS | Encounter Summary ---
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 Gender Identity Female 03/27/2020 5:01 PM CDT Sexual Orientation Lesbian 03/27/2020 5: 01 PM CDT documented as of this encounter Plan of Treatment Not on file documented as of this encounter Procedures Procedure Name Priority Date/Time Associated Diagnosis Comments CARDIOLOGY DOCUMENT SCAN 03/02/2022 documented in this encounter Results * CARDIOLOGY DOCUMENT SCAN (03/02/2022) Anatomical Region Laterality Modality Other us Provider Scanning CV CARDIAC SERVICES PROCEDURES Edited Result - Final documented in this encounter Visit Diagnoses Not on filedocumented in this encounter Care Teams Stone Polisher Relationship Specialty Start Date End Date Jeff Guzman PA [address] [place] [address] PCP - General Family Medicine 06/21/22 02/17/23 Ramonita Crawford NP [address] [address] PCP - General Family Medicine 02/18/23 Angeles Hernandez MD [address] [place] [address] Referring Physician Gynecology 07/21/21 documented as of this encounter
--- OUTSIDE RECORDS SUMMARY | 2024-09-03 19:37 | XMS_ITS | Encounter Summary ---
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 Gender Identity Female 03/27/2020 5:01 PM CDT Sexual Orientation Lesbian 03/27/2020 5: 01 PM CDT documented as of this encounter Plan of Treatment Not on file documented as of this encounter Procedures Procedure Name Priority Date/Time Associated Diagnosis Comments SCAN - RADIOLOGY/IMAGING 03/02/2022 CARDIOLOGY DOCUMENT SCAN 03/02/2022 documented in this encounter Results * CARDIOLOGY DOCUMENT SCAN (03/02/2022) Anatomical Region Laterality Modality Other us Provider Scanning CV CARDIAC SERVICES PROCEDURES Edited Result - Final * SCAN - RADIOLOGY/IMAGING (03/02/2022) Anatomical Region Laterality Modality Other us Provider Scanning Final Result documented in this encounter Visit Diagnoses Not on filedocumented in this encounter Care Teams Overhead Cleaner Maintainer Relationship Specialty Start Date End Date Angeles Hernandez MD [address] [facility] [address] [place] [address] Referring Physician Gynecology 07/21/21 documented as of this encounter
--- OUTSIDE RECORDS SUMMARY | 2024-09-03 19:37 | XMS_ITS | Encounter Summary ---
Author Organization [facility] Address [address] [place] [address] Phone Care Team Providers Care Participant Administrator Name Role Phone Angeles Hernandez MD Unavailable [phone] Reason for Referral * Cardiology (Routine) - Closed Specialty Diagnoses / Procedures Referred By Sharlene angulo Referred To Contact Diagnoses Broken heart syndrome Encounter to establish care with new doctor Procedures Transthoracic Echo (TTE) Complete W Doppler/CF Jeannie Swanson MD [facility] [address] [address] Phone: tel: fax: External Order Referral ID Status Reason Start Date Expiration Date Visits Re quested Visits Authorized [id number] Closed 05/11/2022 06/10/2023 1 1 Reason for Visit * Consultation (Routine) - Closed Specialty Diagnoses / Procedures Referred By Sharlene angulo Referred To Contact Cardiology Diagnoses Broken heart syndrome Brijesh Lynch MD Phone: tel: fax: Jeannie Swanson MD [address] [address] Phone: tel: fax: Referral ID Status Reason Start Date Expiration Date V isits Requested Visits Authorized [id number] Closed Specialty Services Required 03/04/2022 04/03/2023 1 1 Encounter Details Date Type Department Care Team (Late st Contact Info) Description 05/11/2022 9:00 AM CDT Office Visit [facility] Cardiology [address] [place] [address] Jeannie Swanson MD [address] [facility] [address] [place] [address] Encounter to establish care with new doctor (Primary Dx); Broken heart syndrome Social History Tobacco Use Types Packs/Day Years [...] on file 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 Gender Identity Female 03/27/2020 5:01 PM CDT Sexual Orientation Lesbian 03/27/2020 5: 01 PM CDT documented as of this encounter Last Filed Vital Signs Vital Sign Reading Time Taken Comments Blood Pressure 123/76 05/11/2022 8:28 AM CDT Pulse 69 05/11/2022 8:28 AM CDT Temperature 36.8 ??C (98.2 ??F) 05/11/2022 8:28 AM CD T Respiratory Rate - - Oxygen Saturation 96% 05/11/2022 8:28 AM CDT Inhaled Oxygen Concentration - - Weight 78.2 kg (172 lb 8 oz) 05/11/2022 8:28 AM CDT Height 167.6 cm (5' 5.98 ) 05/11/2022 8:28 AM CD T Body Mass Index 27.86 05/11/2022 8:28 AM CDT documented in this encounter Ordered Prescriptions Prescription Sig Dispense Quantity Refills Last Filled Start Date End Date spironolactone (ALDACTONE) 25 mg tabletIndications: Broken heart syndrome,Encounter to establish care with new doctor Take 1 tablet (25 mg total) by mouth daily 30 tablet 11 05/11/2022 06/01/2022 documented in this encounter Progress Notes * Jeannie Swanson MD - 05/11/2022 9:00 AM CDT 05/11/2022 Cardiology New Consult Visit Diagnosis: 1. Nonischemic cardiomyopathy with severe LV systolic dysfunction. LVEDP 42 mm by cardiac catheterization on 03/03/2022 Status [facility] of [facility]. 2. History of COVID-19 infection February of 2022 with COVID pneumonia. History of Present Illness: Chrissy Kilgore is a pleasant 51 y.o. female who presents to [facility] with shortness of breath. She had a cardiac enzymes troponin I positive 10.8 on 03/03/2022. She underwent a left heartcardiac catheterization shows no evidence of coronary disease. Her LVEDP was 42 mm. Her echocardiogram shows severe LV systolic dysfunction. She states she was not in any undue stress at that time she was moving to a different house so she was under stress from moving. No cough. No PND no orthopneano syncope no palpitation. No bowel or bladder symptoms. She is wearing a life vest. No history of ventricular tachycardia. No history of alcohol use or street drug use. Allergies Allergen Reactions Penicillins Hives and Anaphylaxis Anaphylaxis Drug [Sulfamethoxazole-Trimethoprim] Itching and Swelling Facial swelling & widespread itching Tamoxifen Hives Current Outpatient Medications Medication Sig Dispense Refill albuterol (PROAIR DIGIHALER) 90 mcg/actuation inhaler Inhale 2 puffs every 6 (six) hours as needed for wheezing albuterol 2.5 mg /3 mL (0.083 %) nebulizer solution Take 3 mL (2.5 mg total) by nebulization every 6 (six) hours as needed for shortness of breath (Patient not taking: No sig reported) 280 mL 3 aspirin 81 mg chewable tablet CHEW AND SWALLOW 1 TABLET BY MOUTH DAILY AT 8 AM (Patient not taking:Reported on 05/04/2022) azithromycin (ZITHROMAX) 250 mg tablet Take 2 tabs (500 mg) by mouth today, than 1 daily for 4 days. (Patient not taking: Reported on 05/04/2022) 6 tablet 0 cetirizine (ZyrTEC) 10 mg tablet Take 1 tablet (10 mg total) by mouth daily 30 tablet 50 cholestyramine (QUESTRAN) 4 gram packet MIX CONTENTS OF 1 PACKET IN LIQUID AND DRINK BY MOUTH AT BEDTIME (Patient not taking: No sig reported) Creon 12,000-38,000 -60,000 unit capsule TAKE 2 CAPSULES BY MOUTH THREE TIMES DAILY WITH MEALS (Patient not taking: No sig reported) docusate sodium (COLACE) 100 mg capsule Take 1 capsule (100 mg total) by mouth 2 (two) times a day 60 capsule 2 Entresto 24-26 mg tablet [...] 2 (two) times a day 180 tablet3 hydrALAZINE (APRESOLINE) 25 mg tablet Take 25 mg by mouth 3 (three) times a day (Patient not taking: Reported on 05/04/2022) HYDROcodone-acetaminophen (NORCO) 5-325 mg per tablet Take 1 tablet by mouth 2 (two) times a day asneeded for pain 60 tablet 0 hydrOXYzine (ATARAX) 25 mg tablet Take 1 tablet (25 mg total) by mouth every 8 (eight) hours as needed for anxiety (Patient not taking: No sig reported) 90 tablet 2 isosorbide-hydrALAZINE (BIDIL) 20-37.5 mg per tablet Take 1 tablet by mouth 3 (three) times a day (Patient not taking: Reported on 03/29/2022) Jardiance 10 mg tablet Take 1 tablet (10 mg total) by mouth daily 30 tablet 2 levalbuterol (XOPENEX) 1.25 mg/3 mL nebulizer solution levoFLOXacin (LEVAQUIN) 750 mg tablet TAKE 1 TABLET BY MOUTH DAILY FOR 3 DAYS LORazepam (ATIVAN) 0.5 mg tablet Take 1 tablet (0.5 mg total) by mouth nightly as needed (Insomnia)30 tablet 2 methylPREDNISolone (MEDROL DOSEPACK) 4 mg Dosepack Take as directed on package. (Patient not taking: Reported on 05/04/2022) 21 tablet 0 metoprolol tartrate (LOPRESSOR) 25 mg immediate release tablet Take 0.5 tablets (12.5 mg total) by mouth 2 (two) times a day 90 tablet 3 montelukast (SINGULAIR) 10 mg tablet TAKE 1 TABLET(10 MG) BY MOUTH EVERY NIGHT 30 tablet 5 naproxen (NAPROSYN) 500 mg tablet Take 1 tablet (500 mg total) by mouth 2 (two) times a day as needed for pain (pain) (Patient not taking: No sig reported) 28 tablet 0 omeprazole (PriLOSEC) 40 mg capsule Take 40 mg by mouth daily (Patient not taking: Reported on 05/04/2022) ondansetron ODT (ZOFRAN-ODT) 4 mg disintegrating tablet DISSOLVE 1 TABLET ON THE TONGUE EVERY 6 HOURS NEEDED FOR NAUSEA OR VOMITING pantoprazole DR (PROTONIX) 40 mg EC tablet TAKE 1 TABLET(40 MG) BY MOUTH DAILY 30 tablet 5 polyethylene glycol (MIRALAX) 17 gram packet Take 1 packet (17 g total) by mouth daily (Patient nottaking: No sig reported) 30 packet 2 potassium chloride ER 20 mEq CR tablet Take 1 tablet (20 mEq total) by mouth 2 (two) times a day 60tablet 2 raloxifene (EVISTA) 60 mg tablet Take 1 tablet (60 mg total) by mouth daily (Patient not taking: Nosig reported) 30 tablet 11 rosuvastatin (CRESTOR) 5 mg tablet TAKE 1 TABLET(5 MG) BY MOUTH DAILY 30 tablet 2 tiZANidine (ZANAFLEX) 4 mg tablet TAKE 1 TABLET(4 MG) BY MOUTH EVERY 8 HOURS NEEDED FOR MUSCLE SPASMS 90 tablet 0 traMADoL (ULTRAM) 50 mg tablet TAKE 1 TABLET(50 MG) BY MOUTH EVERY 8 HOURS NEEDED FOR PAIN 90 tablet 0 No current facility-administered medications for this visit. Past Medical History: Diagnosis Date Arthritis Asthma Brain concussion [id number] Depression [id number] Epiretinal membrane (ERM), bilateral GERD (gastroesophageal reflux disease) Hypercholesteremia Hypertension Irritable bowel syndrome Kidney stone 08/22/2000 Menstrual problem 08/22/2000 Migraines 08/22/2000 Peptic ulceration 0101?? 1 Past Surgical History: Procedure Laterality Date ABDOMINAL SURGERY Bile duct blockage APPENDECTOMY BREAST SURGERY CATARACT EXTRACTION CHOLECYSTECTOMY COLONOSCOPY DILATION AND CURETTAGE OF UTERUS 07/2012 benign polyp OOPHORECTOMY Left cyst OVARY SURGERY SMALL INTESTINE SURGERY SBO Family History Problem Relation Age of Onset Breast cancer Mother 47 Cancer Father COPD Father No Known Problems Brother No Known Problems Daughter No Known Problems Brother No Known Problems Daughter Allergy (severe) Brother Alzheimer's disease Maternal Grandmother Stroke Maternal Grandmother Alzheimer's disease Maternal Grandfather Stroke Maternal Grandfather Asthma Daughter Depression Daughter Depression Daughter Miscarriages / Stillbirths Daughter Pancreatic cancer Mother's Brother 80 Diabetes Neg Hx Glaucoma Neg Hx Retinal detachment Neg Hx Macular degeneration Neg Hx Thyroid disease Neg Hx Personal history No history of alcohol use drug use [id number] medication or herbal medication. No history of smoking. Testng: Cath 03/02/2022 ; No CAD noted LVEDP 42 mm of Hg. Echo 71/89453 ; LVEF 20-25%. PASP 49 mm of [...] disturbance. Thepatient is not nervous/anxious. Blood pressure 123/76, pulse 69, temperature 36.8 ??C (98.2 ??F), height 167.6 cm (5' 5.98 ), weight 78.2 kg (172 lb 8 oz), SpO2 96 %. PHYSICAL EXAMINATION Physical Exam Constitutional: Appearance: [...] 95 10/06/2021 AST 87 (H) 11/18/2021 SODIUM 141 11/18/2021 POTASSIUM 4.0 11/18/2021 CHLORIDE 104 11/18/2021 CREATININE 0.60 11/18/2021 BUNSER 16 11/18/2021 CO2 24 11/18/2021 TSH 0.61 11/18/2021 ECG ; sinus rhythm nonspecific T-wave changes noted in V3 to V6 1 and aVL low- voltage EKG heart rate 64 beats per minute. QTC interval 387 millisecond Assesment/Plan: 1. Nonischemic cardiomyopathy with severe LV systolic dysfunction and high LVEDP; this could be stress-induced cardiomyopathy but she also had a COVID pneumonia can not rule out COVID myocarditis. I have added spironolactone 12.5 mg a day she is already tolerating metoprolol tartrate 12.5 mg twice a day Lasix 40 mg a day she is on Jardiance 10 mg a day. She is not on any BECK inhibitor at present.If she can tolerate spironolactone will then will add Entresto low dose. Will get echocardiogram with Doppler BMP BNP in a week time. She will monitor her BP at home 2. Dyslipidemia she is on rosuvastatin 5 mg a day low-fat diet. 3. Severe LV systolic dysfunction she is wearing a life vest she will need an echocardiogram in 90 days if her EF remains less than 35% she will be a candidate for ICD implantation. No life vest discharge noted. Thank you for letting me seeing this patient. Please feel free to contact my office regarding her cardiac problems. Jeannie Swanson MD inspector canvas products Cardiology Division [facility] This note was written using a voice recognition system hardware device. Please note there may be variance in spelling, glendy, and syntax because of the voice recognition system hardware. Therefore,not every sentence has been reviewed in its entirety. If there are any concerns about verbage aboveplease contact me at [phone]. documented in this encounter Miscellaneous Notes * Addendum Note - Petar Elliott CLT - 05/11/2022 9:00 AM CDTAddended by: PETAR ELLIOTT on: 05/18/2022 08:28 AM Modules accepted: Orders documented in this encounter Plan of Treatment Not on file documented as of this encounter Procedures Procedure Name Priority Date/Time Associated Diagnosis Comments ECG 12-LEAD Routine 05/11/2022 Broken heart syndrome Encounter to establish care with new doctor documented in this encounter Results * TRANSTHORACIC ECHO (TTE) COMPLETE W DOPPLER/CF W CONTRAST (06/01/2022 3:49 PM CDT) LV EF 63 % CARDIOREPORT Anatomical Region Laterality Modality Ultrasound 06/01/2022 3:00 PM CDT Narrative 06/02/2022 3:35 AM CDT Patient name: Chrissy Kilgore Date of test: 06/01/2022 [facility] Date of : 1970 (F) Potato Peeler: Eileen Avila RDCS Referring Physician: JEANNIE SWANSON MD Contrast Agent: 1.1 ml Optison Administered, (1.9 ml wasted). Contrast Administered by: Eileen Avila RDCS Supervised/Interpreted by: Jeannie Swanson MD Diagnosis: Location: [facility] Reason for test: Broken Heart Syndrome MV [...] 2=Hypo 3=Akinetic 4=Dyskin./Aneurysm 0=Not visualized) Parasternal Long [place]:MAS=1 BAS=1 MIL=1 BRENDA=1 Parasternal Short [place]:MAS=1 MIS=1 AR=1 MIL=1 MAL=1 MA=1 Apical 4 Chambers:=1 MIS=1 BIS=1 BAL=1 MAL=1 AL=1 AC=1 Apical 2 Chambers:AI=1 AR=1 BI=1 BA=1 MA=1 AA=1 AC=1 LV Global [...] MD By signing this report, the attending rug underlay machine operator certifies that he or she has personally supervised and interpreted the echocardiogram and has reviewed and or edited and agrees with the written comments contained within the report. Procedure Note Jeannie Swanson MD - 06/02/2022 Patient name: Chrissy Kilgore Date of test: 06/01/2022 Type of test: TTE w/Doppler [facility] #: 0 Date of : 1970 (F) Potato Peeler: Eileen Avila RDCS Referring Physician: JEANNIE SWANSON MD Contrast Agent: 1.1 ml Optison Administered, (1.9 ml wasted). Contrast Administered by: Eileen Avila RDCS Supervised/Interpreted by: Jeannie Swanson MD Diagnosis: Location: [facility] Reason for test: Broken Heart Syndrome MV [...] 2=Hypo 3=Akinetic 4=Dyskin./Aneurysm 0=Not visualized) Parasternal Long [place]:MAS=1 BAS=1 MIL=1 BRENDA=1 Parasternal Short [place]:MAS=1 MIS=1 AR=1 MIL=1 MAL=1 MA=1 Apical 4 Chambers:=1 MIS=1 BIS=1 BAL=1 MAL=1 AL=1 AC=1 Apical 2 Chambers:AI=1 AR=1 BI=1 BA=1 MA=1 AA=1 AC=1 LV Global [...] MD By signing this report, the attending rug underlay machine operator certifies that he or she has personally supervised and interpreted the echocardiogram and has reviewed and or edited and agrees with the written comments contained within the report. us Jeannie Swanson MD CV ECHO PROCEDURES Final Resul t * (ABNORMAL) Basic metabolic panel (05/18/2022 8:57 AM CDT) [facility] Sodium 137 135 - 145 mmol/L SHELBY CRUZ Comment:Testing performed by : [facility], [place] [address] Potassium, pl 4.5 3.3 - 4.9 mmol/L SHELBY Comment:Testing performed by : [facility] [place] [address] Chloride 101 97 - 110 mmol/L CERNER Comment:Testing performed by : [facility] [place] [address] CO2 26 22 - 32 mmol/L CERNER Comment:Testing performed by : [facility] [place] [place] [place] [address] Anion gap 10 2 - 15 mmol/L CERNER Comment:Testing performed by : [facility] [place] [address] BUN 13 8 - 25 mg/dL CERNER Comment:Testing performed by : [facility] [place] [address] Creatinine 0.80 0.60 - 1.10 mg/dL CERNER Comment:Testing performed by : [facility] [place] [address] Glucose 107 70 - 199 mg/dL [facility] Comment: Interpretive Data Fasting glucose >/= 126 [...] was last revised 2017. Testing performed by: [facility] [place] [address] Calcium 10.6(H) 8.5 - 10.3 mg/dL [facility] Comment:Testing performed by : [facility] [place] [address] Blood 05/18/2022 8:57 AM CDT 05/18/2022 8:57 AM CDT us Jeannie Swanson MD LAB BLOOD ORDERABLES Final Res ult [facility] [address] [place] [address] * Pro B-type natriuretic peptide (05/18/2022 8:57 AM CDT) NT-proBNP 14 <=300 pg/mL SHELBY CRUZ Comment: Interpretive Comments: A. Dyspnea in Acute [...] et.al. Eur Heart J. 2006:27:330-337. 2. Yudelka RW, Cynthia AM. J. AM Meron Cardiol: Cardiovasc Imag. 2009;2: 216- 225. Interpretive Data Last Revised Date: 2018. Testing performed by: [facility], [address], [place] [address] Blood 05/18/2022 8:57 AM CDT 05/18/2022 8:57 AM CDT Jeannie Swanson MD LAB BLOOD ORDERABLES Final Res ult SHELBY [address] Department [place] [address] * ECG 12 lead (05/11/2022) us Jeannie Swanson MD ECG ORDERABLES Final Result documented in this encounter Visit Diagnoses Diagnosis Encounter to establish care with new doctor- Primary Broken heart syndrome Takotsubo syndrome Broken heart syndrome Takotsubo syndrome Encounter to establish care with new doctor documented in this encounter Discontinued Medications Medication Sig Discontinue Reason Start Date End Da te albuterol 2.5 mg /3 mL (0.083 %) nebulizer solutionIndications:Mo derate persistent asthma with exacerbation Take 3 mL (2.5 mg total) by nebulization every 6 (six) hours as needed for shortness of breath Therapy completed 10/24/2020 05/11/2022 aspirin 81 mg chewable tablet CHEW AND SWALLOW 1 TABLET BY MOUTH DAILY AT 8 AM Therapy completed 03/06/2022 05/11/2022 azithromycin (ZITHROMAX) 250 mg tabletIndications:Acut e non-recurrent maxillary sinusitis Take 2 tabs (500 mg) by mouth today, than 1 daily for 4 days. Therapy completed 03/29/2022 05/11/2022 cholestyramine (QUESTRAN) 4 gram packet MIX CONTENTS OF 1 PACKET IN LIQUID AND DRINK BY MOUTH AT BEDTIME Therapy completed 01/09/2022 05/11/2022 Creon 12,000-38,000 -60,000 unit capsule TAKE 2 CAPSULES BY MOUTH THREE TIMES DAILY WITH MEALS Therapy completed 01/28/2022 05/11/2022 hydrALAZINE (APRESOLINE) 25 mg tabletIndications:hype rtension Take 25 mg by mouth 3 (three) times a day Therapy completed 05/11/2022 hydrOXYzine (ATARAX) 25 mg tabletIndications:XENA (generalized anxiety disorder) Take 1 tablet (25 mg total) by mouth every 8 (eight) hours as needed for anxiety Therapy completed 01/26/2022 05/11/2022 isosorbide-hydrALAZINE (BIDIL) 20-37.5 mg per tabletIndications:scoreboard operator bryant heart failure Take 1 tablet by mouth 3 (three) times a day Therapy completed 05/11/2022 methylPREDNISolone (MEDROL DOSEPACK) 4 mg DosepackIndications:Ac pamella non-recurrent maxillary sinusitis Take as directed on package. Therapy completed 03/29/2022 05/11/2022 naproxen (NAPROSYN) 500 mg tabletIndications:Sacr oiliitis (HCC) Take 1 tablet (500 mg total) by mouth 2 (two) times a day as needed for pain (pain) Therapy completed 10/27/2021 05/11/2022 omeprazole (PriLOSEC) 40 mg capsule Take 40 mg by mouth daily Alternate therapy 01/18/2022 05/11/2022 polyethylene glycol (MIRALAX) 17 gram packetIndications:cons tipation Take 1 packet (17 g total) by mouth daily Therapy completed 01/26/2022 05/11/2022 raloxifene (EVISTA) 60 mg tabletIndications:prev ention of breast cancer in high risk women Take 1 tablet (60 mg total) by mouth daily Therapy completed 08/05/2021 05/11/2022 documented as of this encounter Orders Outpatient Referral Count Last Ordered Date Fir st Ordered Date AMB REFERRAL TO CARDIOLOGY 1 05/11/2022 documented in this encounter Care Teams Participant Administrator Relationship Specialty Start Date End Date Angeles Hernandez MD [address] [place] [address] Referring Physician Gynecology 07/21/21 documented as of this encounter
--- OUTSIDE RECORDS SUMMARY | 2024-09-03 19:37 | XMS_ITS | Encounter Summary ---
Author Organization [facility] Address [address] [place] [address] Care Team Providers Care Track Production Engineer Name Role Phone Angeles Hernandez MD Unavailable Reason for Visit * Reason Comments Cardiomyopathy Wearing lifevest for mos, not a tcm Hospital Follow Up Hosp f/u cardiomyo/p neumonia, broken heart syndrome then er for covid, feels better Sinus Problem Blakely, sinus pressure, sinus dng Encounter Details Date Type Department Care Team (Late st Contact Info) Description 03/29/2022 1:30 PM CDT Telemedicine [facility] Medical [facility] Family Medicine [address] [place] [address] Brijesh Lynch MD [address] [place] [address] [address] [place] [address] Acute non-recurrent maxillary sinusitis (Primary Dx); Psychophysiological insomnia; Chronic combined systolic and diastolic congestive heart failure (CMS/HCC) (HCC); Gastroesophageal reflux disease without esophagitis; Dyslipidemia with elevated low density lipoprotein (LDL) cholesterol and abnormally low high density lipoprotein cholesterol Social History Tobacco Use Types Packs/Day Years [...] on file 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 6 tablet 03/29/2022 2 methylPREDNISolone (MEDROL DOSEPACK) 4 mg DosepackIndication s:Acute non-recurrent maxillary sinusitis Take as directed on package. 21 tablet 03/29/2022 2 documented in this encounter Progress Notes * Brijesh Lynch MD - 03/29/2022 1:30 PM CDT Images from the original note were not included. Subjective/Objective Patient ID: Chrissy Kilgore is a 51 y.o. female. Visit Date: 03/29/2022 Chief Complaint Cardiomyopathy (Wearing lifevest for mos, not a tcm), Hospital Follow Up (Hosp f/u cardiomyo/pneumonia, broken heart syndrome then er for covid, feels better), and Sinus Problem (Blakely, sinus pressure, sinus dng) HPI Returns to the office for repeat evaluation. States that she has sinus drainge and congesteion The migraines are under control hte chf is under control The bs are under control The insomina is under control Taking her meds as directed. Review of Systems Constitutional: Negative for activity change. HENT: Positive for congestion and sinus pressure. Eyes: Negative for visual disturbance. Respiratory: Negative for cough and chest tightness. Cardiovascular: Negative for chest pain and leg swelling. Gastrointestinal: Negative for abdominal pain, blood in stool, constipation, diarrhea and nausea. Genitourinary: Negative for difficulty urinating. Musculoskeletal: Negative for arthralgias, back pain and gait problem. Skin: Negative for rash. Neurological: Positive for headaches. Psychiatric/Behavioral: Negative for sleep disturbance. The patient is not nervous/anxious. Physical Exam Constitutional: Appearance: Normal appearance. HENT: Head: Normocephalic and atraumatic. Pulmonary: Effort: Pulmonary effort is normal. Skin: General: Skin is warm and dry. Neurological: General: No focal deficit present. Mental Status: She is alert and oriented to person, place, and time. Psychiatric: Mood and Affect: Mood normal. Behavior: Behavior normal. This was a telemedicine visit with Chrissy esposito which took place via real-time video connection with [employer]. During the visit, I was located in the office and the patient was located at home in the [facility]. The patient visit started at 1400 and ended at 1410 The patient has been informed that the [...] billed and/or responsible for any applicable copayments. Assessment/Plan Diagnoses and all orders for this visit: Acute non-recurrent maxillary sinusitis (J01.00) (Primary) Comments: condiotn acute z pack and medrol dose pack change to [facility] Psychophysiological insomnia (F51.04) Comments: condition chronic nad at goal contionue the ativan Chronic combined systolic and diastolic congestive heart failure (CMS/HCC) ([facility]) (I50.42) Comments: conditon chroinc and at goal continue the entresto Gastroesophageal reflux disease without esophagitis (K21.9) Comments: condiotn chroinc and at goal continue the protonix Dyslipidemia with elevated low density lipoprotein (LDL) cholesterol and abnormally low high density lipoprotein cholesterol (E78.5) Comments: condiotn chroinc adn at goal continue the crestor Brijesh Lynch MD documented in this encounter Plan of Treatment Not on file documented as of this encounter Visit Diagnoses Diagnosis Acute non-recurrent maxillary sinusitis- Primary Psychophysiological insomnia Persistent disorder of initiating or maintaining sleep Chronic combined systolic and diastolic congestive heart failure (CMS/HCC) (HCC) Gastroesophageal reflux disease without esophagitis Esophageal reflux Dyslipidemia with elevated low density lipoprotein (LDL) cholesterol and abnormally low high density lipoprotein cholesterol documented in this encounter Historical Medications * This list may reflect changes made after this encounter. Entresto 24-26 mg tablet Take 1 tablet by mouth every 12 (twelve) hours 03/09/2022 2 potassium chloride ER 20 mEq CR tablet Take 20 mEq by mouth 03/11/2022 2 ondansetron ODT (ZOFRAN-ODT) 4 mg disintegrating tablet DISSOLVE 1 TABLET ON THE TONGUE EVERY 6 HOURS NEEDED FOR NAUSEA OR VOMITING 02/04/2022 3 omeprazole (PriLOSEC) 40 mg capsule Take 40 mg by mouth daily 01/18/2022 2 metoprolol tartrate (LOPRESSOR) 25 mg immediate release tablet Take 25 mg by mouth 2 (two) times a day 03/06/2022 2 Creon 12,000-38,000 -60,000 unit capsule TAKE 2 CAPSULES BY MOUTH THREE TIMES DAILY WITH MEALS 01/28/2022 2 levoFLOXacin (LEVAQUIN) 750 mg tablet 03/06/2022 3 levalbuterol (XOPENEX) 1.25 mg/3 mL nebulizer solution 03/06/2022 2 HYDROcodone-acetamin ophen (NORCO) 5-325 mg per tablet Take by mouth every 6 (six) hours as needed 02/04/2022 2 furosemide (LASIX) 40 mg tablet Take 40 mg by mouth daily 03/06/2022 2 Jardiance 10 mg tablet Take 10 mg by mouth daily 03/06/2022 2 cholestyramine (QUESTRAN) 4 gram packet MIX CONTENTS OF 1 PACKET IN LIQUID AND DRINK BY MOUTH AT BEDTIME 01/09/2022 2 aspirin 81 mg chewable tablet CHEW AND SWALLOW 1 TABLET BY MOUTH DAILY AT 8 AM 03/06/2022 2 added in this encounter Care Teams Track Production Engineer Relationship Specialty Start Date End Date Angeles Hernandez MD [address] [facility] [address] [place] [address] Referring Physician Gynecology 07/21/21 documented as of this encounter
--- OUTSIDE RECORDS SUMMARY | 2024-09-03 19:37 | XMS_ITS | Encounter Summary ---
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 Gender Identity Female 03/27/2020 5:01 PM CDT Sexual Orientation Lesbian 03/27/2020 5: 01 PM CDT documented as of this encounter Miscellaneous Notes * Telephone Encounter - Brittany Nation MA - 12/23/2021 1:59 PM CDT Order correction documented in this encounter Plan of Treatment Not on file documented as of this encounter Visit Diagnoses Diagnosis Dilation of biliary tract- Primary documented in this encounter Care Teams Patternmaker Sample Relationship Specialty Start Date End Date Angeles Hernandez MD [address] [address] Referring Physician Gynecology 07/21/21 documented as of this encounter
--- OUTSIDE RECORDS SUMMARY | 2024-09-03 19:37 | XMS_ITS | Encounter Summary ---
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 Gender Identity Female 03/27/2020 5:01 PM CDT Sexual Orientation Lesbian 03/27/2020 5: 01 PM CDT documented as of this encounter Plan of Treatment Not on file documented as of this encounter Procedures Procedure Name Priority Date/Time Associated Diagnosis Comments SCAN - LABS 02/04/2022 documented in this encounter Results * SCAN - LABS (02/04/2022) us Provider Scanning Edited Result - Final documented in this encounter Visit Diagnoses Not on filedocumented in this encounter Care Teams Package Delivery Room Service Runner Relationship Specialty Start Date End Date Angeles Hernandez MD [address] [id number] Referring Physician Gynecology 07/21/21 documented as of this encounter
--- OUTSIDE RECORDS SUMMARY | 2024-09-03 19:37 | XMS_ITS | Encounter Summary ---
Author Organization [facility] Address [address] [place] [address] Care Team Providers Care Covering And Lining Supervisor Name Role Phone Angeles Hernandez MD Unavailable [phone] Reason for Visit * Reason Comments Joint Pain Encounter Details Date Type Department Care Team ([facility] st Contact Info) Description 05/04/2022 9:45 AM CDT Office Visit [facility] Family Medicine [address] [place] [address] Brijesh Lynch MD [address] [place] [id number] Type 2 diabetes mellitus without complication, without long-term current use of insulin (CMS/HCC) (HCC) (Primary Dx); Mild intermittent asthma without complication; Chronic combined systolic and diastolic congestive heart failure (CMS/HCC) (HCC); Slow transit constipation; Arthralgia of both hands Social History Tobacco Use Types Packs/Day Years [...] on file 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 Gender Identity Female 03/27/2020 5:01 PM CDT Sexual Orientation Lesbian 03/27/2020 5: 01 PM CDT documented as of this encounter Last Filed Vital Signs Vital Sign Reading Time Taken Comments Blood Pressure 122/78 05/04/2022 9:48 AM CDT Pulse 68 05/04/2022 9:48 AM CDT Temperature 36.9 ??C (98.4 ??F) 05/04/2022 9:48 AM CD T Respiratory Rate 18 05/04/2022 9:48 AM CDT Oxygen Saturation 99% 05/04/2022 9:48 AM CDT Inhaled Oxygen Concentration - - Weight 76.7 kg (169 lb) 05/04/2022 9:48 AM CDT Height 167.6 cm (5' 6 ) 05/04/2022 9:48 AM CDT Body Mass Index 27.28 05/04/2022 9:48 AM CDT documented in this encounter Ordered Prescriptions Prescription Sig Dispense Quantity Refills Last Filled Start Date End Date HYDROcodone-acetam inophen (NORCO) 5-325 mg per tabletIndications: Arthralgia of both hands Take 1 tablet by mouth 2 (two) times a day as needed for pain 60 tablet 05/04/2022 12/28/2022 documented in this encounter Progress Notes * Brijesh Lynch MD - 05/04/2022 9:45 AM CDT Images from the original note were not included. Subjective/Objective Patient ID: Chrissy Kilgore is a 51 y.o. female. Visit Date: 05/04/2022 Chief Complaint Joint Pain HPI Returns to the office for repeat evaluation. States that the joints are aching. The asthma is undercontrol hte chf is under control the bs are under control the gerd is under control the constipation is under control Review of Systems Constitutional: Negative for activity change. HENT: Negative for congestion. Eyes: Negative for visual disturbance. Respiratory: Negative for cough and chest tightness. Cardiovascular: Negative for chest pain and leg swelling. Gastrointestinal: Negative for abdominal pain, blood in stool, constipation, diarrhea and nausea. Genitourinary: Negative for difficulty urinating. Musculoskeletal: Positive for arthralgias and joint swelling (numbness in hands and toes). Negativefor back pain and gait problem. Skin: Negative [...] Diagnoses and all orders for this visit: Type 2 diabetes mellitus without complication, without long-term current use of insulin ([facility]) ([facility]) (E11.9) (Primary) Comments: condiotn chronic and at goal continue the jardiance Mild intermittent asthma without complication (J45.20) Comments: conditon chronic and at goal continue hte inhalers Chronic combined systolic and diastolic congestive heart failure ([facility]) ([facility]) (I50.42) Comments: conditon choinc and at goal continue the entresto and lasix and kcl Slow transit constipation (K59.01) Comments: conditon chronic nad at goal continue the colace Arthralgia of both hands (M25.541, M25.542) Comments: condiotn choinc and not at goal stop hte tramadol and start norco bid Brijesh Lynch MD documented in this encounter Plan of Treatment Not on file documented as of this encounter Visit Diagnoses Diagnosis Type 2 diabetes mellitus without complication, without long-term current use of insulin ([facility]) ([facility])- Primary Mild intermittent asthma without complication Chronic combined systolic and diastolic congestive heart failure ([facility]) ([facility]) Slow transit constipation Arthralgia of both hands documented in this encounter Discontinued Medications Medication Sig Discontinue Reason Start Date End Da te HYDROcodone-acetaminophe n (NORCO) 5-325 mg per tablet Take by mouth every 6 (six) hours as needed Reorder 02/04/2022 05/04/2022 documented as of this encounter Care Teams Covering And Lining Supervisor Relationship Specialty Start Date End Date Angeles Hernandez MD [address] [address] Referring Physician Gynecology 07/21/21 documented as of this encounter
--- OUTSIDE RECORDS SUMMARY | 2024-09-03 19:37 | XMS_ITS | Encounter Summary ---
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 Gender Identity Female 03/27/2020 5:01 PM CDT Sexual Orientation Lesbian 03/27/2020 5: 01 PM CDT documented as of this encounter Plan of Treatment Not on file documented as of this encounter Procedures Procedure Name Priority Date/Time Associated Diagnosis Comments CARDIOLOGY DOCUMENT SCAN 03/16/2022 documented in this encounter Results * CARDIOLOGY DOCUMENT SCAN (03/16/2022) Anatomical Region Laterality Modality Other us Provider Scanning CV CARDIAC SERVICES PROCEDURES Final Result documented in this encounter Visit Diagnoses Not on filedocumented in this encounter Care Teams Maintenance Journeyman Relationship Specialty Start Date End Date Angeles Hernandez MD [address] [facility] [address] [place] [address] Referring Physician Gynecology 07/21/21 documented as of this encounter
--- OUTSIDE RECORDS SUMMARY | 2024-09-03 19:37 | XMS_ITS | Encounter Summary ---
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 Gender Identity Female 03/27/2020 5:01 PM CDT Sexual Orientation Lesbian 03/27/2020 5: 01 PM CDT documented as of this encounter Plan of Treatment Not on file documented as of this encounter Procedures Procedure Name Priority Date/Time Associated Diagnosis Comments SCAN - RADIOLOGY/IMAGING 12/08/2021 SCAN - LABS 12/08/2021 CARDIOLOGY DOCUMENT SCAN 12/08/2021 documented in this encounter Results * SCAN - LABS (12/08/2021) us Provider Scanning Final Result * CARDIOLOGY DOCUMENT SCAN (12/08/2021) Anatomical Region Laterality Modality Other us Provider Scanning CV CARDIAC SERVICES PROCEDURES Final Result * SCAN - RADIOLOGY/IMAGING (12/08/2021) Anatomical Region Laterality Modality Other us Provider Scanning Edited Result - Final documented in this encounter Visit Diagnoses Not on filedocumented in this encounter Care Teams In School Suspension Coordinator Relationship Specialty Start Date End Date Angeles Hernandez MD [address] [phone] Referring Physician Gynecology 07/21/21 documented as of this encounter
--- OUTSIDE RECORDS SUMMARY | 2024-09-03 19:37 | XMS_ITS | Encounter Summary ---
Author Organization [facility] Address [address] [facility] [address] [place] [address] Care Team Providers Care Cover Maker Name Role Phone Angeles Hernandez MD Unavailable [phone] Reason for Referral * MRI/CAT/PET Scan (Routine) - Closed Specialty Diagnoses / Procedures Referred By Sharlene angulo Referred To Contact Radiology Diagnoses Periumbilical abdominal pain Diarrhea, unspecified type Procedures CT Abdomen Pelvis W Contrast Jeff Guzman PA Phone: tel: fax: [address] [address] Referral ID Status Reason Start Date Expiration Date Visits Re quested Visits Authorized [id number] Closed 11/19/2021 02/17/2022 1 1 * Diagnostic Imaging (Routine) - Closed Specialty Diagnoses / Procedures Referred By Sharlene angulo Referred To Contact Diagnoses Chronic pain of right knee Procedures XR Knee Right 4+ Vw Jeff Guzman PA Phone: tel: fax: [address] [address] Referral ID Status Reason Start Date Expiration Date Visits Re quested Visits Authorized [id number] Closed 11/18/2021 12/18/2022 1 1 Reason for Visit * Reason Comments Follow-up Lesion on back,pain in her right leg Encounter Details Date Type Department Care Team ([facility] Contact Info) Description 11/18/2021 9:45 AM CDT Office Visit 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 Gender Identity Female 03/27/2020 5:01 PM CDT Sexual Orientation Lesbian 03/27/2020 5: 01 PM CDT documented as of this encounter Last Filed Vital Signs Vital Sign Reading Time Taken Comments Blood Pressure 130/90 11/18/2021 10:37 AM CDT Pulse 80 11/18/2021 10:37 AM CDT Temperature 36.2 ??C (97.1 ??F) 11/18/2021 10:37 AM C DT Respiratory Rate 18 11/18/2021 10:37 AM CDT Oxygen Saturation 98% 11/18/2021 10:37 AM CDT Inhaled Oxygen Concentration - - Weight 81.8 kg (180 lb 6.4 oz) 11/18/2021 10:37 AM CDT Height 167.6 cm (5' 6 ) 11/18/2021 10:37 AM CDT Body Mass Index 29.12 11/18/2021 10:37 AM CDT documented in this encounter Progress Notes * Jeff Guzman, CANDE - 11/18/2021 9:45 AM CDT Images from the original note were not included. Subjective/Objective Patient ID: Chrissy Kilgore is a 51 y.o. female. Chief Complaint Follow-up (Lesion on back,pain in her right leg ) HPI Patient is here with multiple concerns. Patient is struggling with weight loss over the last few months. She has been feeling extremely fatigued exhausted. She states she has been compliant medications. She does have a long history of diarrhea status post partial bowel resection. Patient has been compliant with medications for hypertension and hyperlipidemia. She has no new concerns associated with this. States she is having nausea. Eating seems to make her nauseous. She is not drinking months feels like this may be contributing to the muscle cramps she is having her hands and her legs. Review of Systems Constitutional: Negative for fatigue, [...] for confusion and dysphoric mood. Blood pressure 130/90, pulse 80, temperature 36.2 ??C (97.1 ??F), temperature source Oral, resp. rate 18, height 167.6 cm (5' 6 ), weight 81.8 kg (180 lb 6.4 oz), SpO2 98 %. Physical Exam Vitals reviewed. Constitutional: General: [...] Palpations: Abdomen is soft. Tenderness: There is abdominal tenderness in the periumbilical area. Musculoskeletal: Cervical back: Neck supple. Comments: ROM appropriate Skin: General: Skin is warm and dry. Capillary Refill: Capillary refill takes less than 2 seconds. Neurological: Mental Status: She is alert and oriented to person, place, and time. Psychiatric: Behavior: Behavior normal. Assessment/Plan Diagnoses and all orders for this visit: Muscle cramps (R25.2) (Primary) Comments: acute order mg and k levels work on hydration Orders: - Magnesium; Future - Comprehensive metabolic panel; Future Chronic pain of right knee (M25.561, G89.29) Comments: order xray knee Orders: - XR Knee Right 4+ Vw; Future Essential hypertension (I10) Assessment & Plan: Chronic condition Stable and well control at goal with hydralazine Orders: - CBC with auto differential; Future - Comprehensive metabolic panel; Future Hypercholesteremia (E78.00) Assessment & Plan: Chronic and well corrected with crestor Periumbilical abdominal pain (R10.33) Comments: order ct ab/pelvis r/o pancreatic mass or pancreatitis Orders: - CT Abdomen Pelvis W Contrast; Future Weight loss (R63.4) Comments: order tsh Orders: - TSH; Future Diarrhea, unspecified type (R19.7) Comments: ct to r/o colitis Orders: - CT Abdomen Pelvis W Contrast; Future Skin lesion of back (L98.9) - Surgical pathology; Future 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 Consent was obtained prior to starting the procedure. Betadine skin prep was used followed by local anesthetic of 1%lidocaine without epi. Eliptical excision of the lesion with a #11 blade was performed to remove all visual edges of the lesion at 1.8 cm in length. Edges were then reapproximated with 4-0 ethilon suture with running cutaneous sutures. Routine bandage was applied. Patient tolerated procedure well and procedure was done without complications. Patient was advised of routine suture care and to return to office in 10 days for suture removal. Excised tissue will be sent for pathology. Patient was advised to call with any concerns/complications. CANDE Du documented in this encounter Miscellaneous Notes * Assessment & Plan Note - Jeff Guzman PA - 11/18/2021 11:12 AM CDT Associated Problem(s): Hypercholesteremia Chronic and well corrected with crestor * Assessment & Plan Note - Jeff Guzman PA - 11/18/2021 11:10 AM CDT Associated Problem(s): Essential hypertension Chronic condition Stable and well control at goal with hydralazine documented in this encounter Plan of Treatment Not on file documented as of this encounter Results * CT Abdomen Pelvis W Contrast (12/16/2021 1:29 PM CDT) Anatomical Region Laterality Modality Body N/A Computed Tomogra phy 12/16/2021 8:55 PM CDT Narrative 12/16/2021 9:01 PM CDT EXAM DESCRIPTION: ?? CT ABDOMEN PELVIS W CONTRAST REASON FOR STUDY: One-month history of periumbilical pain. Periumbilical abd pain for 1 month, surgical history of colon resection, gail, and appy. TECHNIQUE: CT scan of the abdomen and pelvis performed with intravenous and ?? with ??oral contrast using helical scanning technique with dynamic intravenous contrast injection. Reconstructed coronal and sagittal MPR images reviewed. All images stored on PACS. Automated exposure control was used as a dose optimization technique for this examination. CONTRAST TYPE/DOSE: ?? 125mL of IOVERSOL 350 MG IODINE/ML INTRAVENOUS SYRINGE ?? injected via ?? intravenous COMPARISON: ?? No prior. FINDINGS: LOWER CHEST: ?? Limited views through the lung base demonstrates no infiltrate or effusion. LIVER: ?? The liver demonstrates no suspicious lesion. ??There is mild intrahepatic biliary ductal dilatation and the common bile duct is prominent measuring up to 1.4 cm. ??This is even more prominent than typically expected for a patient with prior cholecystectomy. GALLBLADDER: ?? Prior cholecystectomy. BILE DUCTS: ?? Mild intrahepatic biliary ductal dilatation of the common bile duct measures up to 1.4 cm as above. SPLEEN: ?? Small splenule. ??No suspicious splenic lesion. ??Normal size. PANCREAS: ?? No identified cystic or solid masses. No significant calcifications. No adjacent inflammation or peripancreatic fluid collections. Pancreatic duct not dilated. ?? ADRENALS: ?? Normal. KIDNEYS/URINARY TRACT: ?? No identified significant cystic or solid masses. No visualized stones. No hydronephrosis or hydroureter. Symmetric enhancement. ? Urinary bladder is unremarkable. GI: ?? No acute inflammatory change of bowel. ??No obstruction. ??Prior appendectomy. ??Stomach and loops of small bowel are without inflammatory change. PERITONEUM: ?? No ascites or free air. RETROPERITONEUM: ?? No mass or adenopathy. REPRODUCTIVE: ?? No suspicious adnexal mass. VASCULATURE: ?? Portal vein is patent. ??Abdominal aorta demonstrates no aneurysmal dilatation. MUSCULOSKELETAL: ?? Mild osteoarthritis of the hips. OTHER: ?? No other abnormality. IMPRESSION: 1. ?? There is mild intrahepatic biliary ductal dilatation and common bile duct measures up to 1.4 cm. ??This is more prominent than even typically seen for patients with prior cholecystectomy. ??Correlate with liver function tests. ?? Consider MRCP. 2. ?? There is no acute inflammatory change of the abdomen or pelvis otherwise. No bowel obstruction or inflammatory change of bowel. THIS IS AN ELECTRONICALLY VERIFIED FINAL REPORT 12/16/2021 9:01 PM - Electronically signed by ??Richardson Herron M.D. MJ D: ??12/16/2021 9:01 PM T: Report ID: [id number] Reading Location: ??[id number] Procedure Note Richardson Herron MD - 12/16/2021 EXAM DESCRIPTION: CT ABDOMEN PELVIS W CONTRAST REASON FOR STUDY: One-month history of periumbilical pain. Periumbilical abd pain for 1 month, surgical history of colon resection, gail, and appy. TECHNIQUE: CT scan of the abdomen and pelvis performed with intravenousand with oral contrast using helical scanning technique with dynamicintravenous contrast injection. Reconstructed coronal and sagittal MPR imagesreviewed. All images stored on PACS. Automated exposure control was used as a dose optimization technique forthis examination. CONTRAST TYPE/DOSE: 125mL of IOVERSOL 350 MG IODINE/ML INTRAVENOUSSYRINGE injected via intravenous COMPARISON: No prior. FINDINGS: LOWER CHEST: Limited views through the lung base demonstratesno infiltrate or effusion. LIVER: The liver demonstrates no suspicious lesion. There is mild intrahepatic biliary ductal dilatation and the common bile duct isprominent measuring up to 1.4 cm. This is even more prominent than typicallyexpected for a patient with prior cholecystectomy. GALLBLADDER: Prior cholecystectomy. BILE DUCTS: Mild intrahepatic biliary ductal dilatation of the commonbile duct measures up to 1.4 cm as above. SPLEEN: Small splenule. No suspicious splenic lesion. Normal size. PANCREAS: No identified cystic or solid masses. No significant calcifications. No adjacent inflammation or peripancreatic fluidcollections. Pancreatic duct not dilated. ADRENALS: Normal. KIDNEYS/URINARY TRACT: No identified significant cystic or solid masses.No visualized stones. No hydronephrosis or hydroureter. Symmetricenhancement. Urinary bladder is unremarkable. GI: No acute inflammatory change of bowel. No obstruction. Prior appendectomy. Stomach and loops of small bowel are without inflammatory change. PERITONEUM: No ascites or free air. RETROPERITONEUM: No mass or adenopathy. REPRODUCTIVE: No suspicious adnexal mass. VASCULATURE: Portal vein is patent. Abdominal aorta demonstrates no aneurysmal dilatation. MUSCULOSKELETAL: Mild osteoarthritis of the hips. OTHER: No other abnormality. IMPRESSION: 1. There is mild intrahepatic biliary ductal dilatation and common bileduct measures up to 1.4 cm. This is more prominent than even typically seenfor patients with prior cholecystectomy. Correlate with liver function tests. Consider MRCP. 2. There is no acute inflammatory change of the abdomen or pelvisotherwise. No bowel obstruction or inflammatory change of bowel. THIS IS AN ELECTRONICALLY VERIFIED FINAL REPORT 12/16/2021 9:01 PM - Electronically signed by Richardson PAYNE T: Report ID: [id number] Reading Location: [id number] Jeff CASTELLON IMG CT PROCEDURES Final Result * XR Knee Right 4+ Vw (11/19/2021 8:55 AM CDT) Anatomical Region Laterality Modality Lower Extremities, Knee Right Computed Radiography 11/19/2021 9:46 AM CDT Narrative 11/19/2021 9:47 AM CDT EXAM DESCRIPTION: ?XR KNEE RIGHT 4 OR MORE VIEWS REASON FOR STUDY: ?? pain ?? Rt knee pain, swelling, stiffness x6 mos, worsening the past 2 mos. ?? No injury ?? TECHNIQUE: ?? 4 ??radiographic views acquired of the right knee. COMPARISON: ?? None FINDINGS: There is no definite evidence acute fracture dislocation involving the right knee. ??There are mild tricompartmental degenerative changes of the right knee with joint space narrowing and minimal spurring. ??There is a small exostosis is noted arising off the medial aspect of the proximal right tibial plateau. ??There is no significant joint effusion. IMPRESSION: ?? 1. ?? Mild tricompartmental degenerate changes of the right knee without definite acute displaced fracture or dislocation. THIS IS AN ELECTRONICALLY VERIFIED FINAL REPORT 11/19/2021 9:47 AM - Electronically signed by ??George PRATHER D: ??11/19/2021 9:47 AM T: Report ID: [id number] Reading Location: ??[id number] Procedure Note George Barclay DO - 11/19/2021 EXAM DESCRIPTION: XR KNEE RIGHT 4 OR MORE VIEWS REASON FOR STUDY: pain Rt knee pain, swelling, stiffness x6 mos, worsening the past 2 mos. No injury TECHNIQUE: 4 radiographic views acquired of the right knee. COMPARISON: None FINDINGS: There is no definite evidence acute fracture dislocationinvolving the right knee. There are mild tricompartmental degenerative changes ofthe right knee with joint space narrowing and minimal spurring. There is asmall exostosis is noted arising off the medial aspect of the proximal righttibial plateau. There is no significant joint effusion. IMPRESSION: 1. Mild tricompartmental degenerate changes of the right knee without definite acute displaced fracture or dislocation. THIS IS AN ELECTRONICALLY VERIFIED FINAL REPORT 11/19/2021 9:47 AM - Electronically signed by George Barclay D.O. PS T: Report ID: [id number] Reading Location: [place] [address] Jeff CASTELLON IMG XR PROCEDURES Final Result * (ABNORMAL) Comprehensive metabolic panel (11/18/2021 12:39 PM CDT) Sodium 141 135 - 145 mmol/L [facility] Potassium, pl 4.0 3.3 - 4.9 mmol/L [facility] Chloride 104 97 - 110 mmol/L [facility] CO2 24 22 - 32 mmol/L [facility] Anion gap 13 2 - 15 mmol/L [facility] BUN 16 8 - 25 mg/dL [facility] Creatinine 0.60 0.60 - 1.10 mg/dL [facility] Glucose 112 70 - 199 mg/dL [facility] Comment: Interpretive Data Fasting glucose >/= [...] Current interpretive data was last revised 2017. Calcium 9.8 8.5 - 10.3 mg/dL [facility] Bilirubin, total 0.8 0.1 - 1.2 mg/dL [facility] Protein, pl 7.4 6.5 - 8.5 g/dL [facility] Albumin 4.6 3.5 - 5.0 g/dL [facility] Alk phos 151(H) 40 - 130 Units/L [facility] ALT 88(H) 7 - 45 Units/L [facility] AST 87(H) 10 - 45 Units/L [facility] Blood 11/18/2021 12:3 9 PM CDT 11/18/2021 12:40 PM CDT Jeff CASTELLON LAB BLOOD ORDERABLES Final Resu lt Performing Organization Address City/[facility] Co de Phone Number [facility] [address] [place] [employer] [place] [address] * CBC with auto differential (11/18/2021 12:39 PM CDT) WBC 7.3 3.8 - 9.9 K/cumm [facility] Hgb 14.7 11.9 - 15.5 g/dL [facility] Hct 44.5 35.6 - 45.5 % [facility] Plt 267 150 - 400 K/cumm [facility] MPV 9.3 9.1 - 12.3 fL [facility] RBC 4.92 3.90 - 5.20 M/cumm [facility] MCV 90.4 81.3 - 96.4 fL [facility] MCH 29.9 27.1 - 33.3 pg [facility] MCHC 33.0 32.3 - 35.7 g/dL [facility] RDW CV 13.4 11.1 - 14.9 % [facility] RDW SD 44.3 35.7 - 48.1 fL [facility] NRBC abs 0.00 0.00 - 0.01 K/cumm [facility] Blood 11/18/2021 12:3 9 PM CDT 11/18/2021 12:40 PM CDT Jeff CASTELLON LAB BLOOD ORDERABLES Final Resu lt Performing Organization Address City/[facility]/ZIP Co de Phone Number [address] [place] [employer] [place] [address] * TSH (11/18/2021 12:39 PM CDT) Thyroid Stimulating Hormone 0.61 0.30 - 4.20 mcIUnit/mL [facility] Blood 11/18/2021 12:3 9 PM CDT 11/18/2021 12:40 PM CDT us Jeff CASTELLON LAB BLOOD ORDERABLES Final Resu lt Performing Organization Address City/[facility] Co de Phone Number [place] [address] [address] * Magnesium (11/18/2021 12:39 PM CDT) Magnesium 2.0 1.4 - 2.5 mg/dL [facility] Blood 11/18/2021 12:3 9 PM CDT 11/18/2021 12:40 PM CDT us Jeff CASTELLON LAB BLOOD ORDERABLES Final Resu lt Performing Organization Address [facility] Co de Phone Number [address] [address] documented in this encounter Visit Diagnoses Diagnosis Muscle cramps- Primary Chronic pain of right knee Essential hypertension Unspecified essential hypertension Hypercholesteremia Pure hypercholesterolemia Periumbilical abdominal pain Abdominal pain, periumbilic Weight loss Loss of weight Diarrhea, unspecified type Skin lesion of back Unspecified disorder of skin and subcutaneous tissue Junctional melanocytic nevus of skin Chronic pain of right knee Periumbilical abdominal pain Abdominal pain, periumbilic Diarrhea, unspecified type documented in this encounter Care Teams Cover Maker Relationship Specialty Start Date End Date Angeles Hernandez MD [address] [place] [address] Referring Physician Gynecology 07/21/21 documented as of this encounter
--- OUTSIDE RECORDS SUMMARY | 2024-09-03 19:37 | XMS_ITS | Encounter Summary ---
Author Organization [facility] Address [address] [place] [address] Phone Care Team Providers Care Corduroy Brusher Operator Name Role Phone Angeles Hernnadez MD Unavailable [phone] Encounter Details Date Type Department Care Team (Late st Contact Info) Description 03/18/[address] 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 [facility] Diagnosis/Reason for Appointment: Broken heart Syndrome Best Contact Number for Patient: [phone] Relation: significant other Primary Care Physician: Brijesh Lynch PCP Referring Physician: Brijesh Lynch Ref Ph: If Referring MD is not PCP, list specialty: Triage Questions Yes No Who/Where/When/Notes IF PATIENT IS REQUESTING CARDIOLOGY COVID CLINIC (General COVID Clinic phone: [phone]) (PCP and other provider referrals can be scheduled in COVID clinic) (can schedule self-referrals specifically requesting the Cardiology COVID clinic) Have you had the COVID-19 virus? [x] [] March 2021/ February 2022 If yes, do you believe your symptoms are directly related to the infection or the vaccine? [x] [] Infection Have you ever been diagnosed with cancer and undergone radiation or chemotherapy treatments? [] [x]If 'Yes', Schedule first available with Cardio-Oncology Have you ever seen a Library Helper in an office setting? [x] [] Dr. Mora [facility] If yes, where were you treated? If yes, is this a heart condition you've had since childhood? [] [x] IF SCHEDULING PATIENT WITH VARMA Have you had a baby in the last year or are you ? [] [x] Have you had heart or blood pressure problems during a previous ? [] [x] Are you planning on transferring care to a [place] MD or are you looking for a second opinion on your current diagnosis? [x] 2nd Opinion (Appts will be CX if records not received 48hrs prior to appt) [x]Transferring Care to [place] Patient History Questions Yes No Where/When/Notes Have you EVER been hospitalized for ANY cardiac issue? [x] [] [place], [place]/february 2022 Have you ever had an EKG? [x] [] Dr Mora Have you ever had a stress test? [x] [] Dr. Mora Have you ever had an echo? [x] [] Dr. Mora Have you ever had any cardiac imaging including calcium scoring, cardiac MRI, or cardiac CT? [] [] Have you ever worn a heart monitor at home? [x] [] Life vest Have you ever had a Cardiac Cath? [x] [] [place], [place] February 2022 Have you ever had a Cardiac Surgery (including ablations, cardioversions, CABG, etc.)? [x] [] Pt unsure if it was for cardiac reasons but she did have mri and ct /in chart Have you ever had a sleep study? [x] [] 1 year ago / [facility]/pt has cpap Do you have a device? If yes what type? (Pacemaker, Defibrillator, Implanted Loop Recorder) [x] [x] If yes, where and when was device put in? Keeper Helper? ([employer], [employer], [employer]) Notes: Appointment Date: 05/11/22 Type: New Provider: Wyatt Location: [facility] [x] Confirm appt date, time, provider and location. [x] Advise pt to arrive 15- 20 min early. [x] Advise patient to bring medications/list, photo ID and insurance card [x] Advise of New PatientPacket being mailed to them. [x] Patients with clinical appointments may have 2 support people/caregivers who can participate inexam room questions and care. [x] Patients and visitors are expected to wear a mask upon building entry and while inside the facility. documented in this encounter Plan of Treatment Not on file documented as of this encounter Visit Diagnoses Not on filedocumented in this encounter Care Teams Corduroy Brusher Operator Relationship Specialty Start Date End Date Angeles Hernandez MD [address] [place] [address] Referring Physician Gynecology 07/21/21 documented as of this encounter
--- OUTSIDE RECORDS SUMMARY | 2024-09-03 19:37 | XMS_ITS | Encounter Summary ---
Author Organization [facility] Healthcare Address [address] [place] [address] Care Team Providers Care Water Leak Repairer Name Role Phone Angeles Hernandez MD Unavailable [phone] Encounter Details Date Type Department Care Team (Late st Contact Info) Description 11/18/2021 12:10 PM CDT Lab 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 Gender Identity Female 03/27/2020 5:01 PM CDT Sexual Orientation Lesbian 03/27/2020 5: 01 PM CDT documented as of this encounter Plan of Treatment Not on file documented as of this encounter Procedures Procedure Name Priority Date/Time Associated Diagnosis Comments EGFR Routine 11/18/2021 12:39 PM CDT Muscle cramps Essential hypertension DIFFERENTIAL AUTO Routine 11/18/2021 12: 39 PM CDT Essential hypertension CBC WITH AUTO DIFFERENTIAL Routine 11/18/2021 12:39 PM CDT Essential hypertension TSH Routine 11/18/2021 12:39 PM CDT Weight loss MAGNESIUM Routine 11/18/2021 12:39 PM CDT Muscle cramps COMPREHENSIVE METABOLIC PANEL Routine 11/18/2021 12:39 PM CDT Muscle cramps Essential hypertension documented in this encounter Results * eGFR (11/18/2021 12:39 PM CDT) Pathologist [facility] [place] eGFR 109 mL/min/1. 73 m2 SHELBY VILLATORO Comment: Interpretive [...] interpretive data was last reviewed 2021. Blood 11/18/2021 12:3 9 PM CDT 11/18/2021 12:40 PM CDT us Jeff CASTELLON LAB BLOOD ORDERABLES Final Resu lt SHELBY [address] [facility] [place] [address] * Differential, auto (11/18/2021 12:39 PM CDT) Neutrophil abs 5.6 1.7 - 6.5 K/cumm [facility] Imm gran abs 0.0 0.0 - 0.1 K/cumm [facility] Lymphocyte abs 1.1 0.8 - 3.3 K/cumm [facility] Monocyte abs 0.4 0.2 - 0.8 K/cumm [facility] Eosinophil abs 0.1 0.0 - 0.5 K/cumm [facility] Basophil abs 0.0 0.0 - 0.1 K/cumm [facility] Neutrophil pct 77.4 % [facility] Comment: Interpretive Data Percent cell count reference ranges are not reported, since discordance with absolute values may lead to misinterpretation of CBC data. Current Interpretive Data was last revised on 2017. Imm gran pct 0.4 % [facility] Comment: Interpretive Data Percent cell count reference ranges are not reported, since discordance with absolute values may lead to misinterpretation of CBC data. Current Interpretive Data was last revised on 2017. Lymphocyte pct 15.2 % [facility] Comment: Interpretive Data Percent cell count reference ranges are not reported, since discordance with absolute values may lead to misinterpretation of CBC data. Current Interpretive Data was last revised on 2017. Monocyte pct 5.6 % [facility] Comment: Interpretive Data Percent cell count reference ranges are not reported, since discordance with absolute values may lead to misinterpretation of CBC data. Current Interpretive Data was last revised on 2017. Eosinophil pct 1.1 % [facility] Comment: Interpretive Data Percent cell count reference ranges are not reported, since discordance with absolute values may lead to misinterpretation of CBC data. Current Interpretive Data was last revised on 2017. Basophil pct 0.3 % [facility] Comment: Interpretive Data Percent cell count reference ranges are not reported, since discordance with absolute values may lead to misinterpretation of CBC data. Current Interpretive Data was last revised on 2017. Blood 11/18/2021 12:3 9 PM CDT 11/18/2021 12:40 PM CDT Jeff CASTELLON LAB BLOOD ORDERABLES Final Resu lt Performing Organization Address [facility] Co de Phone Number [address] [employer] [address] * Magnesium (11/18/2021 12:39 PM CDT) Magnesium 2.0 1.4 - 2.5 mg/dL [facility] Blood 11/18/2021 12:3 9 PM CDT 11/18/2021 12:40 PM CDT Jeff CASTELLON LAB BLOOD ORDERABLES Final Resu lt Performing Organization Address [facility] de Phone Number [address] [address] * TSH (11/18/2021 12:39 PM CDT) Pathologist [facility] [place] Thyroid Stimulating Hormone 0.61 0.30 - 4.20 mcIUnit/mL [facility] Blood 11/18/2021 12:3 9 PM CDT 11/18/2021 12:40 PM CDT Jeff CASTELLON LAB BLOOD ORDERABLES Final Resu lt Performing Organization Address [facility] Co de Phone Number [address] [address] * CBC with auto differential (11/18/2021 12:39 PM CDT) WBC 7.3 3.8 - 9.9 K/cumm [facility] Hgb 14.7 11.9 - 15.5 g/dL [facility] Hct 44.5 35.6 - 45.5 % [facility] Plt 267 150 - 400 K/cumm [facility] MPV 9.3 9.1 - 12.3 fL [facility] RBC 4.92 3.90 - 5.20 M/cumm [facility] MCV 90.4 81.3 - 96.4 fL [facility] MCH 29.9 27.1 - 33.3 pg [facility] MCHC 33.0 32.3 - 35.7 g/dL [facility] RDW CV 13.4 11.1 - 14.9 % [facility] RDW SD 44.3 35.7 - 48.1 fL [facility] NRBC abs 0.00 0.00 - 0.01 K/cumm [facility] Blood 11/18/2021 12:3 9 PM CDT 11/18/2021 12:40 PM CDT us Jeff CASTELLON LAB BLOOD ORDERABLES Final Resu lt Performing Organization Address City/State/[facility] Co de Phone Number [place] [address] [facility] Department [place] [address] * (ABNORMAL) Comprehensive metabolic panel (11/18/2021 12:39 PM CDT) Sodium 141 135 - 145 mmol/L [facility] Potassium, pl 4.0 3.3 - 4.9 mmol/L [facility] Chloride 104 97 - 110 mmol/L [facility] CO2 24 22 - 32 mmol/L [facility] Anion gap 13 2 - 15 mmol/L [facility] BUN 16 8 - 25 mg/dL [facility] Creatinine 0.60 0.60 - 1.10 mg/dL [facility] Glucose 112 70 - 199 mg/dL [facility] Comment: Interpretive Data Fasting glucose [...] 2017. Calcium 9.8 8.5 - 10.3 mg/dL [facility] Bilirubin, total 0.8 0.1 - 1.2 mg/dL [facility] Protein, pl 7.4 6.5 - 8.5 g/dL [facility] Albumin 4.6 3.5 - 5.0 g/dL [facility] Alk phos 151(H) 40 - 130 Units/L [facility] ALT 88(H) 7 - 45 Units/L [facility] AST 87(H) 10 - 45 Units/L [facility] Blood 11/18/2021 12:3 9 PM CDT 11/18/2021 12:40 PM CDT us Jeff CASTELLON LAB BLOOD ORDERABLES Final Resu lt SHELBY [address] [facility] Department [place] [address] documented in this encounter Visit Diagnoses Diagnosis Muscle cramps Essential hypertension Unspecified essential hypertension Weight loss Loss of weight documented in this encounter Care Teams Water Leak Repairer Relationship Specialty Start Date End Date Angeles Hernandez MD [address] [address] Referring Physician Gynecology 07/21/21 documented as of this encounter
--- OUTSIDE RECORDS SUMMARY | 2024-09-03 19:37 | XMS_ITS | Encounter Summary ---
Author Organization [facility] Address [address] [facility] [facility] [address] [place] [address] Care Team Providers Care Fisher Hand Line Name Role Phone Angeles Hernandez MD Unavailable [phone] Encounter Details Date Type Department Care Team ([facility] st Contact Info) Description 10/28/2021 Telephone [facility] Family Medicine [address] [place] [id number] Brijesh Lynch MD [address] [place] [address] Social History Tobacco Use Types Packs/Day Years Used Date Smoking Tobacco: Never Smokeless Tobacco: Never Alcohol Use Standard Drinks/Week Comments Never 0 (1 standard drink = 0.6 oz pur e alcohol) AUDIT-C Answer Date Recorded Q1: How often do you have a drink containing alc ohol? Never 08/12/2021 Average Number of Drinks Not on file 021 Q3: How often do you have si x or more drinks on one occasion? 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 Gender Identity Female 03/27/2020 5:01 PM CDT Sexual Orientation Lesbian 03/27/2020 5: 01 PM CDT documented as of this encounter Ordered Prescriptions Prescription Sig Dispense Quantity Refills Last Filled Start Date End Date nitrofurantoin monohydrate (MACROBID) 100 mg capsuleIndications :Acute non-recurrent frontal sinusitis Take 1 capsule (100 mg total) by mouth 2 (two) times a day for 10 days 20 capsule 10/28/2021 documented in this encounter Miscellaneous Notes * Telephone Encounter - Dot Herbert MA - 10/28/2021 9:50 AM CST Medication added to allergy list and PCP informed IBLE PACKER * Telephone Encounter - Dot Herbert MA - 10/28/2021 9:43 AM CST I was in the office yesterday and seen Jeff. He gave me an antibiotic sulfamethoxazole/trimethoprim and I had a allergic reaction to it this morning. I started to feel like my lips were swelling anditching, then it was my eyes and I started itching everywhere. I took two Benadryl and after an hour I???m feeling better. Wanted to see if he would call me in a different antibiotic and put in my chart about the med. thank you IBLE PACKER documented in this encounter Plan of Treatment Not on file documented as of this encounter Visit Diagnoses Diagnosis Acute non-recurrent frontal sinusitis- Primary documented in this encounter Discontinued Medications Medication Sig Discontinue Reason Start Date End Da te sulfamethoxazole-trimeth oprim (BACTRIM DS) 800-160 mg per tabletIndications:Acute non-recurrent frontal sinusitis Take 1 tablet by mouth 2 (two) times a day for 10 days Allergic response 10/27/2021 10/28/2021 documented as of this encounter Care Teams Fisher Hand Line Relationship Specialty Start Date End Date Angeles Hernandez MD [address] [place] [address] Referring Physician Gynecology 07/21/21 documented as of this encounter
--- OUTSIDE RECORDS SUMMARY | 2024-09-03 19:37 | XMS_ITS | Encounter Summary ---
Author Organization [facility] Medical [facility] Address [address] [place] [address] Care Team Providers Care Spectral Scientist Name Role Phone Angeles Hernandez MD Unavailable [phone] Jeff Guzman Primary Care Provider [phone] Ramonita Crawford NP Primary Care Provider [phone] Encounter Details Date Type Department Care Team (Late st Contact Info) Description 03/09/2022 Orders Only [facility] Health Information Management [address] [place] [address] Jeff Guzman PA [facility] [address] [address] Social History Tobacco Use Types Packs/Day Years [...] on file 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 Gender Identity Female 03/27/2020 5:01 PM CDT Sexual Orientation Lesbian 03/27/2020 5: 01 PM CDT documented as of this encounter Plan of Treatment Not on file documented as of this encounter Procedures Procedure Name Priority Date/Time Associated Diagnosis Comments SCAN - LABS 03/09/2022 documented in this encounter Results * SCAN - LABS (03/09/2022) us Jeff CASTELLON Final Result documented in this encounter Visit Diagnoses Not on filedocumented in this encounter Care Teams Spectral Scientist Relationship Specialty Start Date End Date Jeff Guzman PA [address] [place] [address] PCP - General Family Medicine 06/21/22 02/17/23 Ramonita Crawford NP [address] [address] PCP - General Family Medicine 02/18/23 Angeels Hernandez MD [address] [place], [place] [id number] Referring Physician Gynecology 07/21/21 documented as of this encounter
--- OUTSIDE RECORDS SUMMARY | 2024-09-03 19:37 | XMS_ITS | Encounter Summary ---
Author Organization [facility] Address [address] [place] [address] Care Team Providers Care Car Supplier Name Role Phone Angeles Hernandez MD Unavailable [phone] Reason for Referral * Diagnostic Imaging (Routine) - Closed Specialty Diagnoses / Procedures Referred By Contac t Referred To Contact Diagnoses Right calf pain Procedures US VEIN DUPLEX LOWER EXTREMITY RIGHT LIMITED, UNILATERAL Jeff Guzman PA Phone: tel: fax: [address] [address] Referral ID Status Reason Start Date Expiration Date Visits Re quested Visits Authorized [id number] Closed 10/27/2021 11/26/2022 1 1 NDS FOREMAN Reason for Visit * Diagnostic Imaging (Routine) - Closed Specialty Diagnoses / Procedures Referred By Sharlene angulo Referred To Contact Diagnoses Right calf pain Procedures US VEIN DUPLEX LOWER EXTREMITY RIGHT LIMITED, UNILATERAL Jeff Guzman PA Phone: tel: fax: [address] [address] Referral ID Status Reason Start Date Expiration Date Visits Re quested Visits Authorized [id number] Closed 10/27/2021 11/26/2022 1 1 Encounter Details Date Type Department Care Team (Latest Contact Info) Description 10/27/2021 12:49 PM GROUNDS FOREMAN - 10/27/2021 11:59 PM GROUNDS FOREMAN Hospital Encounter [facility] Cardiac Testing [address] [place] [id number] Right calf pain Discharge Disposition: Discharge to home or [...] on file 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 Gender Identity Female 03/27/2020 5:01 PM CDT Sexual Orientation Lesbian 03/27/2020 5: 01 PM CDT documented as of this encounter Medications at Time of Discharge albuterol (PROAIR DIGIHALER) 90 mcg/actuation inhaler Inhale 2 puffs every 6 (six) hours as needed for wheezing 2 albuterol 2.5 mg /3 mL (0.083 %) nebulizer solutionIndicatio ns:Moderate persistent asthma with exacerbation Take 3 mL (2.5 mg total) by nebulization every 6 (six) hours as needed for shortness of breath 280 mL 3 10/24/2020 2 cetirizine (ZyrTEC) 10 mg tabletIndications :Seasonal allergic rhinitis due to pollen Take 1 tablet (10 mg total) by mouth daily 30 tablet 5 07/10/2020 2 cetirizine (ZyrTEC) 10 mg tabletIndications :Seasonal allergic rhinitis due to pollen Take 1 tablet (10 mg total) by mouth daily 30 tablet 50 01/28/2021 2 EPINEPHrine 0.3 mg/0.3 mL auto-injection syringeIndication s:Anaphylaxis Inject 0.3 mL (0.3 mg total) into the muscle as instructed as needed for anaphylaxis Call 911 after use. 1 Syringe 5 10/24/2020 2 fluconazole (DIFLUCAN) 100 mg tabletIndications :Dysuria,Yeast vaginitis Take 1 tablet (100 mg total) by mouth daily 7 tablet 09/28/2021 2 fluticasone propionate (FLONASE) 50 mcg/actuation nasal spray SHAKE LIQUID AND USE 1 SPRAY IN EACH NOSTRIL DAILY NEEDED FOR NASAL CONGESTION 03/26/2021 3 hydrALAZINE (APRESOLINE) 25 mg tabletIndications :hypertension Take 25 mg by mouth 3 (three) times a day 2 ibuprofen (ADVIL,MOTRIN) 800 mg tablet Take 1 tablet by mouth every 6 (six) hours as needed 11/13/2020 2 isosorbide-hydrAL AZINE (BIDIL) 20-37.5 mg per tabletIndications :chronic heart failure Take 1 tablet by mouth 3 (three) times a day 2 methylPREDNISolon e (MEDROL DOSEPACK) 4 mg DosepackIndicatio ns:Sacroiliitis (HCC) Take as directed on package. 21 tablet 10/27/2021 2 montelukast (SINGULAIR) 10 mg tabletIndications :Seasonal allergic rhinitis due to pollen TAKE 1 TABLET(10 MG) BY MOUTH EVERY NIGHT 30 tablet 5 08/24/2021 2 naproxen (NAPROSYN) 500 mg tabletIndications :Sacroiliitis (HCC) Take 1 tablet (500 mg total) by mouth 2 (two) times a day as needed for pain (pain) 28 tablet 10/27/[address] (PROTONIX) 40 mg EC tabletIndications :Gastroesophageal reflux disease with esophagitis without hemorrhage TAKE 1 TABLET(40 MG) BY MOUTH DAILY 30 tablet 5 06/23/2021 2 raloxifene (EVISTA) 60 mg tabletIndications :prevention of breast cancer in high risk women Take 1 tablet (60 mg total) by mouth daily 30 tablet 11 08/05/2021 2 rosuvastatin (CRESTOR) 5 mg tabletIndications :Hypercholesterem ia TAKE 1 TABLET(5 MG) BY MOUTH DAILY 30 tablet 2 10/12/2021 2 sulfamethoxazole- trimethoprim (BACTRIM DS) 800-160 mg per tabletIndications :Acute non-recurrent frontal sinusitis Take 1 tablet by mouth 2 (two) times a day for 10 days 20 tablet 10/27/2021 2 tiZANidine (ZANAFLEX) 4 mg tabletIndications :Muscle pain TAKE 1 TABLET(4 MG) BY MOUTH EVERY 8 HOURS NEEDED FOR MUSCLE SPASMS 90 tablet 10/26/2021 2 traMADoL (ULTRAM) 50 mg tabletIndications :Neck pain TAKE 1 TABLET(50 MG) BY MOUTH EVERY 8 HOURS NEEDED FOR PAIN 90 tablet 10/26/2021 2 documented as of this encounter Discharge Disposition Disposition Code Departure Means Destination Discharge to home or self care documented in this encounter Plan of Treatment Not on file documented as of this encounter Procedures Procedure Name Priority Date/Time Associated Diagnosis Comments US VEIN DUPLEX LOWER EXTREMITY RIGHT LIMITED Schedule MERY, Read MERY (Appt Today, Awaiting Results) 10/27/2021 1:14 PM GROUNDS FOREMAN Right calf pain documented in this encounter Results * US VEIN DUPLEX LOWER EXTREMITY RIGHT LIMITED, UNILATERAL (10/27/2021 1:14 PM GROUNDS FOREMAN) Anatomical Region Laterality Modality Vascular Right Ultrasound 10/27/2021 Narrative 10/28/2021 7:13 AM GROUNDS FOREMAN Make Meaning Job ID: [id number] Make Meaning Document ID: [id number] Dictated date/time: REASON Pain right calf. No thrombus seen in the right common femoral, superficial femoral, popliteal, posterior tibial, peroneal, or greater saphenous veins. IMPRESSION No evidence of deep venous thrombosis right lower extremity. JOB ID/VF JOB ID: ??[id number] us Jeff ABBASI US PROCEDURES Final Result documented in this encounter Visit Diagnoses Diagnosis Right calf pain documented in this encounter Care Teams Car Supplier Relationship Specialty Start Date End Date Angeles Hernandez MD [address] [place] [id number] Referring Physician Gynecology 07/21/21 documented as of this encounter
--- OUTSIDE RECORDS SUMMARY | 2024-09-03 19:37 | XMS_ITS | Encounter Summary ---
Author Organization 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 - 01/28/2022 8:37 AM CDT LMOR to rabia appt cancelled via my chart documented in this encounter Plan of Treatment Not on file documented as of this encounter Visit Diagnoses Not on filedocumented in this encounter Care Teams Real Estate Representative Relationship Specialty Start Date End Date Angeles Hernandez MD [address] [address] Referring Physician Gynecology 07/21/21 documented as of this encounter
--- OUTSIDE RECORDS SUMMARY | 2024-09-03 19:37 | XMS_ITS | Encounter Summary ---
Author Organization [facility] Address [address] [facility] [address] [place] [address] Care Team Providers Care Chainstitch Hemmer Name Role Phone Angeles Hernandez MD Unavailable [phone] Reason for Visit * Reason Comments Post-op Problem Encounter Details Date Type Department Care Team ([facility] st Contact Info) Description 01/26/2022 2:30 PM CDT Office Visit [facility] Medicine [address] [place] [address] Jeff Guzman, [place] [address] [address] XENA (generalized anxiety disorder) (Primary Dx); Psychophysiological insomnia; Essential hypertension; Drug-induced constipation Social History Tobacco Use Types Packs/Day Years [...] file 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NER Gender Identity Female 03/27/2020 5:01 PM CDT Sexual Orientation Lesbian 03/27/2020 5: 01 PM CDT documented as of this encounter Last Filed Vital Signs Vital Sign Reading Time Taken Comments Blood Pressure 128/90 01/26/2022 2:44 PM CDT Pulse 94 01/26/2022 2:44 PM CDT Temperature - - Respiratory Rate - - Oxygen Saturation 98% 01/26/2022 2:44 PM CDT Inhaled Oxygen Concentration - - Weight 83.2 kg (183 lb 6.4 oz) 01/26/2022 2:44 P M CDT Height 167.6 cm (5' 6 ) 01/26/2022 2:44 PM CDT Body Mass Index 29.6 01/26/2022 2:44 PM CDT documented in this encounter Ordered Prescriptions Prescription Sig Dispense Quantity Refills Last Filled Start Date End Date polyethylene glycol (MIRALAX) 17 gram packetIndications: constipation Take 1 packet (17 g total) by mouth daily 30 packet 2 01/26/2022 2 docusate sodium (COLACE) 100 mg capsuleIndications :constipation Take 1 capsule (100 mg total) by mouth 2 (two) times a day 60 capsule 2 01/26/2022 2 LORazepam (ATIVAN) 0.5 mg tabletIndications: Psychophysiologica l insomnia Take 1 tablet (0.5 mg total) by mouth nightly as needed (Insomnia) 30 tablet 2 01/26/2022 2 hydrOXYzine (ATARAX) 25 mg tabletIndications: XENA (generalized anxiety disorder) Take 1 tablet (25 mg total) by mouth every 8 (eight) hours as needed for anxiety 90 tablet 2 01/26/2022 2 documented in this encounter Progress Notes * Jeff Guzman PA - 01/26/2022 2:30 PM CDT Images from the original note were not included. Subjective/Objective Patient ID: Chrissy Kilgore is a 51 y.o. female. Chief Complaint Post-op Problem HPI Patient is here for follow-up she recently had a ERCP. States the duct was completely blocked. She did get some pain relief with following up with this procedure. She was placed on Creon as well as Questran. Patient is struggling with constipation at this point. She is also having lots of anxiety at this point. Based on her abdominal issues as well as her living situation. Patient states she is getting hives and rash from this which is typical for her as an anxiety component. Patient reports nosuicidal thoughts ideations. Review of Systems Constitutional: Negative for fatigue, fever and unexpected weight change. HENT: Negative for congestion, ear pain, hearing loss, rhinorrhea and voice change. Eyes: Negative for discharge, redness and visual disturbance. Respiratory: Negative for cough, chest tightness and shortness of breath. Cardiovascular: Negative for chest pain, palpitations and leg swelling. Gastrointestinal: Positive for constipation. Negative for abdominal pain, blood in stool, diarrhea,nausea and vomiting. Endocrine: Negative for polydipsia and polyuria. Genitourinary: Positive for dysuria and frequency. Negative for hematuria. Musculoskeletal: Positive for myalgias. Negative for arthralgias. Skin: Negative for color change and rash. Neurological: Positive for headaches. Negative for dizziness and tremors. Hematological: Does not bruise/bleed easily. Psychiatric/Behavioral: Negative for confusion and dysphoric mood. Blood pressure 128/90, pulse 94, height 167.6 cm (5' 6 ), weight 83.2 kg (183 lb 6.4 oz), SpO2 98 %. Physical [...] Palpations: Abdomen is soft. Tenderness: There is generalized abdominal tenderness. Musculoskeletal: Cervical back: Neck supple. Comments: ROM appropriate Skin: General: Skin is warm and dry. Capillary Refill: Capillary refill takes less than 2 seconds. Neurological: Mental Status: She is alert and oriented to person, place, and time. Psychiatric: Behavior: Behavior normal. Assessment/Plan Diagnoses and all orders for this visit: XENA (generalized anxiety disorder) (F41.1) (Primary) Assessment & Plan: Chronic and uncontrolled Start atarax 25mg tid Orders: - hydrOXYzine (ATARAX) 25 mg tablet; Take 1 tablet (25 mg total) by mouth every 8 (eight) hours as needed for anxiety Psychophysiological insomnia (F51.04) Assessment & Plan: Chronic condition Not well controlled Start ativan 0.5mg qhs Orders: - LORazepam (ATIVAN) 0.5 mg tablet; Take 1 tablet (0.5 mg total) by mouth nightly as needed (Insomnia) Essential hypertension (I10) Assessment & Plan: Chronic condition stable well controlled continue hydralazine Drug-induced constipation (K59.03) Comments: start colace start miralax Orders: - docusate sodium (COLACE) 100 mg capsule; Take 1 capsule (100 mg total) by mouth 2 (two) times a day - polyethylene glycol (MIRALAX) 17 gram packet; Take 1 packet (17 g total) by mouth daily CANDE Du Answers for HPI/ROS submitted by the patient on 01/20/2022 Chronicity: recurrent Onset: more than 1 month ago Onset quality: gradual Frequency: constantly Progression since onset: unchanged Pain location: RUQ Pain - numeric: 4/10 Pain quality: a sensation of fullness, sharp Radiates to: RUQ, epigastric region anorexia: Yes belching: No flatus: Yes hematochezia: No melena: No weight loss: No Aggravated by: eating Relieved by: nothing Diagnostic workup: surgery, upper endoscopy documented in this encounter Miscellaneous Notes * Assessment & Plan Note - Jeff Guzman PA - 01/26/2022 4:27 PM CDTAssociated Problem(s): Essential hypertension Chronic condition stable well controlled continue hydralazine * Assessment & Plan Note - Jeff Guzman PA - 01/26/2022 4:10 PM CDTAssociated Problem(s): XENA (generalized anxiety disorder) Chronic and uncontrolled Start atarax 25mg tid * Assessment & Plan Note - Jeff Guzman PA - 01/26/2022 4:08 PM CDTAssociated Problem(s): Psychophysiological insomnia Chronic condition Not well controlled Start ativan 0.5mg qhs documented in this encounter Plan of Treatment Not on file documented as of this encounter Visit Diagnoses Diagnosis XENA (generalized anxiety disorder)- Primary Generalized anxiety disorder Psychophysiological insomnia Persistent disorder of initiating or maintaining sleep Essential hypertension Unspecified essential hypertension Drug-induced constipation Other constipation documented in this encounter Care Teams Chainstitch Hemmer Relationship Specialty Start Date End Date Angeles Hernandez MD [address] [address] Referring Physician Gynecology 07/21/21 documented as of this encounter
--- OUTSIDE RECORDS SUMMARY | 2024-09-03 19:37 | XMS_ITS | Encounter Summary ---
Author Organization [facility] Healthcare Address [address] [place] [address] Care Team Providers Care Studio Sales Associate Name Role Phone Angeles Hernandez MD Unavailable [phone] Reason for Referral * MRI/CAT/PET Scan (Routine) - Closed Specialty Diagnoses / Procedures Referred By Sharlene t Referred To Contact Radiology Diagnoses Periumbilical abdominal pain Diarrhea, unspecified type Procedures CT Abdomen Pelvis W Contrast Jeff Guzman PA Phone: tel: fax: [address] [phone] Referral ID Status Reason Start Date Expiration Date Visits Re quested Visits Authorized [id number] Closed 11/19/2021 02/17/2022 1 1 Reason for Visit * MRI/CAT/PET Scan (Routine) - Closed Specialty Diagnoses / Procedures Referred By Contac t Referred To Contact Radiology Diagnoses Periumbilical abdominal pain Diarrhea, unspecified type Procedures CT Abdomen Pelvis W Contrast Jeff Guzman PA Phone: tel: fax: [address] [phone] Referral ID Status Reason Start Date Expiration Date Visits Re quested Visits Authorized [id number] Closed 11/19/2021 02/17/2022 1 1 Encounter Details Date Type Department Care Team (Latest Contact Info) Description 12/16/2021 12:07 PM CDT - 12/16/2021 11:59 PM CDT Hospital [facility] [address] [place] [address] Periumbilical abdominal pain; Diarrhea, unspecified type Discharge Disposition: Discharge to home [...] on file 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 Gender Identity Female 03/27/2020 5:01 [...] MOUTH DAILY 30 tablet 2 10/12/2021 2 tiZANidine (ZANAFLEX) 4 mg tabletIndications :Muscle pain TAKE 1 TABLET(4 MG) BY MOUTH EVERY 8 HOURS NEEDED FOR MUSCLE SPASMS 90 tablet 11/24/2021 2 traMADoL (ULTRAM) 50 mg tabletIndications :Neck pain TAKE 1 TABLET(50 MG) BY MOUTH EVERY 8 HOURS NEEDED FOR PAIN 90 tablet 11/24/2021 2 documented as of this encounter Discharge Disposition Disposition Code Departure Means Destination Discharge to home or self care documented in this encounter Plan of Treatment Not on file documented as of this encounter Procedures Procedure Name Priority Date/Time Associated Diagnosis Comments CT ABDOMEN PELVIS W CONTRAST Schedule Routine, Read Routine (OP Routine) 12/16/2021 1:29 PM CDT Periumbilical abdominal pain Diarrhea, unspecified type documented in this encounter Results * CT Abdomen Pelvis [...] 9:01 PM - Electronically signed by ??Richardson PAYNE D: ??12/16/2021 9:01 PM T: Report ID: [id number] Reading Location: ??[id number] Procedure Note Richardson Herron MD - 12/16/2021 [...] 9:01 PM - Electronically signed by Richardson Herron M.D. MJ T: Report ID: [id number] Reading Location: [place] [address] PROCEDURES Final Result documented in this encounter Visit Diagnoses Diagnosis Periumbilical abdominal pain Abdominal pain, periumbilic Diarrhea, unspecified type documented in this encounter Administered Medications Inactive Administered Medications - up to 3 most recent administrations Medication Order MAR Action Action Date Dose Rate Site iohexoL (OMNIPAQUE 9) 9 mg iodine/mL solution solution 1 Bottle 1 Bottle, oral, Once in imaging, contrast, Starting on Tue12/16/21 at 1330, For 1 dose Contrast Given 12/16/2021 1:31 PM CDT 1 Bottle ioversoL (OPTIRAY 350) syringe syringe 125 mL 125 mL, intravenous, Once in imaging, contrast, Starting on Tue12/16/21 at 1330, For 1 dose Contrast Given 12/16/2021 1:31 PM CDT 125 mL Right Antecubital sodium chloride 0.9% flush 125 mL 125 mL, intravenous, Once in imaging, line care, Starting on Tue12/16/21 at 1330, For 1 dose Given 12/16/2021 1:31 PM CDT 125 mL Right Antecubital documented in this encounter Care Teams Studio Sales Associate Relationship Specialty Start Date End Date Angeles Hernandez MD [address] [address] Referring Physician Gynecology 07/21/21 documented as of this encounter
--- OUTSIDE RECORDS SUMMARY | 2024-09-03 19:37 | XMS_ITS | Encounter Summary ---
Author Organization [facility] Address [address] [facility] [address] [place] [address] Care Team Providers Care Dolphin Trainer Name Role Phone Angeles Hernandez MD Unavailable [phone] Reason for Referral * Diagnostic Imaging (Routine) - Closed Specialty Diagnoses / Procedures Referred By Contac t Referred To Contact Diagnoses Right calf pain Procedures US VEIN DUPLEX LOWER EXTREMITY RIGHT LIMITED, UNILATERAL Jeff Guzman PA Phone: tel: fax: [facility] [address] [place] [phone] Referral ID Status Reason Start Date Expiration Date Visits Re quested Visits Authorized [id number] Closed 10/27/2021 11/26/2022 1 1 WASHER Reason for Visit * Reason Comments Headache SAAB & dizziness today Knee Pain R knee pain Encounter Details Date Type Department Care Team (Late st Contact Info) Description 10/27/2021 9:30 AM COAL WASHER Office Visit [facility] Family Medicine [address] [place] [address] Jeff Guzman PA [address] [phone] Right calf pain (Primary Dx); Acute non-recurrent frontal sinusitis; Skin lesion; Sacroiliitis (CMS/HCC) (HCC) Social History Tobacco Use Types Packs/Day Years [...] on file 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 Gender Identity Female 03/27/2020 5:01 PM CDT Sexual Orientation Lesbian 03/27/2020 5: 01 PM CDT documented as of this encounter Last Filed Vital Signs Vital Sign Reading Time Taken Comments Blood Pressure 118/80 10/27/2021 9:40 AM COAL WASHER Pulse 82 10/27/2021 9:40 AM COAL WASHER Temperature - - Respiratory Rate 20 10/27/2021 9:40 AM COAL WASHER Oxygen Saturation 97% 10/27/2021 9:40 AM COAL WASHER Inhaled Oxygen Concentration - - Weight 83.9 kg (185 lb) 10/27/2021 9:40 AM COAL WASHER Height 167.6 cm (5' 5.98 ) 10/27/2021 9:40 AM CS T Body Mass Index 29.87 10/27/2021 9:40 AM COAL WASHER documented in this encounter Ordered Prescriptions Prescription Sig Dispense Quantity Refills Last Filled Start Date End Date methylPREDNISolone (MEDROL DOSEPACK) 4 mg DosepackIndication s:Sacroiliitis (HCC) Take as directed on package. 21 tablet 10/27/2021 2 naproxen (NAPROSYN) 500 mg tabletIndications: Sacroiliitis (HCC) Take 1 tablet (500 mg total) by mouth 2 (two) times a day as needed for pain (pain) 28 tablet 10/27/2021 2 sulfamethoxazole-t rimethoprim (BACTRIM DS) 800-160 mg per tabletIndications: Acute non-recurrent frontal sinusitis Take 1 tablet by mouth 2 (two) times a day for 10 days 20 tablet 10/27/2021 2 documented in this encounter Progress Notes * Jeff Guzman, PA - 10/27/2021 9:30 AM CST Images from the original note were not included. Subjective/Objective Patient ID: Chrissy Kilgore is a 51 y.o. female. Chief Complaint Headache (SAAB & dizziness today) and Knee Pain (R knee pain) HPI Patient presents the office today with concerns of potential sinus infection. She is having left periorbital pain been present for couple days. She does have increased sinus pressure postnasal drainage clearing her throat. She has no fever chills. Patient is also having complaints of right leg calfpain. South of her knee. States been there for about 2 weeks his the deep achiness. Does wax and wane but does not go away. She denies any known injury. Patient is also having low back pains been flaring up over the last few weeks. Review of Systems Constitutional: Negative for fatigue, [...] Genitourinary: Negative for dysuria and frequency. Musculoskeletal: Knee pain Skin: Negative for color change and rash. Neurological: Positive for dizziness and headaches. Negative for tremors. Hematological: Does not bruise/bleed easily. Psychiatric/Behavioral: Negative for confusion and dysphoric mood. Blood pressure 118/80, pulse 82, resp. rate 20, height 167.6 cm (5' 5.98 ), weight 83.9 kg (185 lb), SpO2 97 %. Physical Exam Vitals reviewed. Constitutional: General: She is not in acute distress. Appearance: Normal appearance. She is well-developed. She is not ill-appearing. HENT: Head: Normocephalic. Right Ear: External ear normal. Left Ear: External ear normal. Eyes: Extraocular Movements: Extraocular movements intact. Conjunctiva/sclera: Conjunctivae normal. Right eye: Right conjunctiva is not injected. Left eye: Left conjunctiva is not injected. Pupils: Pupils are equal, round, and reactive to light. Neck: Thyroid: No thyromegaly. Comments: ROM appropriate Cardiovascular: Rate and Rhythm: Normal rate and regular rhythm. Heart sounds: Normal heart sounds. No murmur heard. No friction rub. No gallop. Pulmonary: Effort: Pulmonary effort is normal. No respiratory distress. Breath sounds: Normal breath sounds. Abdominal: General: Bowel sounds are normal. There is no distension. Palpations: Abdomen is soft. Tenderness: There is no abdominal tenderness. Musculoskeletal: Cervical back: Neck supple. Comments: ROM appropriate Skin: General: Skin is warm and dry. Capillary Refill: Capillary refill takes less than 2 seconds. Neurological: General: No focal deficit present. Mental Status: She is alert and oriented to person, place, and time. Psychiatric: Attention and Perception: Attention normal. Mood and Affect: Mood normal. Speech: Speech normal. Behavior: Behavior normal. Behavior is cooperative. Thought Content: Thought content normal. Assessment/Plan Diagnoses and all orders for this visit: Right calf pain (M79.661) (Primary) Comments: order stat venous doppler rle Orders: - US Vein Duplex Upper Extremity Right Limited, Unilateral; Future Acute non-recurrent frontal sinusitis (J01.10) Comments: start bactrims ds 10d Orders: - sulfamethoxazole-trimethoprim (BACTRIM DS) 800-160 mg per tablet; Take 1 tablet by mouth 2 (two) times a day for 10 days Skin lesion (L98.9) Comments: excise in 2weeks at f/u appt Sacroiliitis (CMS/HCC) ([facility]) (M46.1) Comments: start naproxen 500mg bid prn for pain # 28 start mdp Orders: - naproxen (NAPROSYN) 500 mg tablet; Take 1 tablet (500 mg total) by mouth 2 (two) times a day as needed for pain (pain) - methylPREDNISolone (MEDROL DOSEPACK) 4 mg Dosepack; Take as directed on package. CANDE Du WASHER documented in this encounter Miscellaneous Notes * Addendum Note - Dot Herbert MA - 10/27/2021 9:30 AM CSTAddended by: DOT HERBERT on: 10/27/2021 11:04 AM Modules accepted: Orders WASHER documented in this encounter Plan of Treatment Not on file documented as of this encounter Results * US VEIN DUPLEX LOWER EXTREMITY RIGHT LIMITED, UNILATERAL (10/27/2021 1:14 PM COAL WASHER) Anatomical Region Laterality Modality Vascular Right Ultrasound 10/27/2021 Narrative 10/28/2021 7:13 AM COAL WASHER [employer] Job ID: [id number] [employer] Document ID: [id number] Dictated date/time: [id number] REASON Pain right calf. No thrombus seen in the right common femoral, superficial femoral, popliteal, posterior tibial, peroneal, or greater saphenous veins. IMPRESSION No evidence of deep venous thrombosis right lower extremity. JOB ID/VF JOB ID: ??[id number] us Jeff CASTELLON IMDaryl US PROCEDURES Final Result documented in this encounter Visit Diagnoses Diagnosis Right calf pain- Primary Acute non-recurrent frontal sinusitis Skin lesion Unspecified disorder of skin and subcutaneous tissue Sacroiliitis (HCC) Sacroiliitis, not elsewhere classified Right calf pain documented in this encounter Discontinued Medications Medication Sig Discontinue Reason Start Date End Da te metoprolol XL (TOPROL-XL) 25 mg extended release tabletIndications:Benign essential HTN TAKE 1 TABLET(25 MG) BY MOUTH DAILY Therapy completed 10/12/2021 10/27/2021 documented as of this encounter Historical Medications * This list may reflect changes made after this encounter. hydrALAZINE (APRESOLINE) 25 mg tabletIndications :hypertension Take 25 mg by mouth 3 (three) times a day 05/11/2022 added in this encounter Care Teams Dolphin Trainer Relationship Specialty Start Date End Date Anegles Hernandez MD [address] [address] Referring Physician Gynecology 07/21/21 documented as of this encounter
--- OUTSIDE RECORDS SUMMARY | 2024-09-03 19:37 | XMS_ITS | Encounter Summary ---
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 Gender Identity Female 03/27/2020 5:01 PM CDT Sexual Orientation Lesbian 03/27/2020 5: 01 PM CDT documented as of this encounter Medications at Time of Discharge albuterol (PROAIR DIGIHALER) 90 mcg/actuation inhaler Inhale 2 puffs every 6 (six) hours as needed for wheezing 12/14/202 2 albuterol 2.5 mg /3 mL (0.083 [...] Procedure Name Priority Date/Time Associated Diagnosis Comments SURGICAL PATHOLOGY Routine 11/18/2021 12 :00 AM CDT documented in this encounter Results * Surgical pathology (11/18/2021 12:00 AM CDT) Skin 11/18/2021 11/19/2021 10: 27 AM CDT Narrative 11/23/2021 12:29 PM CDT [facility] Department of Pathology [address] [place] [address] ?? Note to Patients: ??This report may contain a detailed description of human tissue sent by a health care provider to the laboratory for pathologic evaluation. ??The content of this report is essential for diagnosis and may provide important critical findings. ??This information may be unfamiliar to patients to review without a medical professional present. ?? It is advised that the patient review this report in the presence of a health care provider who can answer questions and explain the details. Final Report Patient Name: MAX DE LA GARZA : ??1970 (Age: 51) Gender: ??F Address: ??[address] [place] [address] [address] RINA Yuen [place], [place] [facility] #: [id number] Service: DEFAULT Location: Patient Type: B SPECIMEN ? Taken: 11/18/2021 Received: 11/19/2021 Accessioned: 11/19/2021 Reported: 11/23/2021 Physician(s): Hector Valencia Diagnosis: Skin, back , excisional biopsy: - ?Junctional melanocytic nevus with focal architectural disorder and pigment incontinence - ? Not present at margins Nora Garcia M.D. Report Electronically Reviewed and Signed Out By ??Nora Garcia M.D. 11/23/2021 12:29:42 Specimen(s) Received: A: Back Lesion Microscopic Description: Microscopic examination substantiates the final diagnosis. ??There is no significant melanocytic atypia. ??Deeper levels and immunostains for MART-1/Melan-A and Ki- 67 support the diagnosis. Intradepartmental review is performed. Clinical History: The patient is a 51-year-old woman who presents with a back lesion. Gross Description The specimen container is labeled with the patient's name and back . ??Received in formalin is a 0.8 cm in length by 0.4 cm in width unoriented ellipse of ordonez- white skin excised to a maximum depth of 0.2 cm. ??The skin is remarkable for a 0.6 x 0.3 cm brown pigmented macule that comes within 0.1 cm to the nearest margin. ??The resection margin is inked blue and the specimen is sectioned to reveal the lesion to be superficial. ??Entirely submitted as follows: A1 - unoriented tip margins, en face A2 - remaining central sections [facility]/11/19/2021 10:48 ??CANDE Olivia Jeff CASTELLON LAB PATHOLOGY ORDERABLES Final Result documented in this encounter Visit Diagnoses Not on filedocumented in this encounter Care Teams Automotive Glazier Relationship Specialty Start Date End Date Angeles Hernandez MD [address] [address] Referring Physician Gynecology 07/21/21 documented as of this encounter
--- OUTSIDE RECORDS SUMMARY | 2024-09-03 19:37 | XMS_ITS | Encounter Summary ---
Author Organization [facility] Medical Group Address [address] [facility] [address] [place] [address] Care Team Providers Care Pleater Name Role Phone Angeles Hernandez MD Unavailable [phone] Reason for Visit * Reason Onset Date Comments Test Results 12/17/2021 Encounter Details Date Type Department Care Team ([facility] Contact Info) Description 12/17/2021 Telephone [facility] Family Medicine [address] [place] [address] Jeff Guzman, PA [address] [address] Test Results Social History Tobacco Use Types Packs/Day Years [...] on file 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 * Telephone Encounter - Vikki Rust RN - 12/17/2021 8:45 AM CDT ----- Message from CANDE Du sent at 12/16/2021 9:15 PM CDT ----- Refer to dr santiago. Order mrcp documented in this encounter Plan of Treatment Not on file documented as of this encounter Visit Diagnoses Diagnosis Abnormal CT of the abdomen- Primary Nonspecific (abnormal) findings on radiological and other examination of abdominal area, including retroperitoneum Periumbilical abdominal pain Abdominal pain, periumbilic documented in this encounter Care Teams Pleater Relationship Specialty Start Date End Date Angeles Hernandez MD [address] [address] Referring Physician Gynecology 07/21/21 documented as of this encounter
--- OUTSIDE RECORDS SUMMARY | 2024-09-03 19:37 | XMS_ITS | Encounter Summary ---
Author Organization [facility] Medical Group Address [address] [facility] [address] [place] [address] Care Team Providers Care Hat Designer Name Role Phone Angeles Hernandez MD Unavailable [phone] Reason for Referral * Consultation (Routine) - Closed Specialty Diagnoses / Procedures Referred By Contac t Referred To Contact Cardiology Diagnoses Broken heart syndrome Brijesh Lynch MD Phone: tel: fax: Jeannie Swanson MD [address] [facility] [address] [place] [address] Phone: tel: fax: Referral ID Status Reason Start Date Expiration Date V isits Requested Visits Authorized [id number] Closed Specialty Services Required 03/04/2022 04/03/2023 1 1 Question Answer Please select the performing region: External Order [171] To provider: JEANNIE SWANSON [[id number]] # of visits: 1 Encounter Details Date Type Department Care Team (Late st Contact Info) Description 03/04/2022 Telephone [facility] Family Medicine [address] [place] [address] Brijesh Lynch MD [address] [place] [address] [address] [place] [address] Social History Tobacco Use Types Packs/Day Years [...] on file 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 Gender Identity Female 03/27/2020 5:01 PM CDT Sexual Orientation Lesbian 03/27/2020 5: 01 PM CDT documented as of this encounter Miscellaneous Notes * Telephone Encounter - Porsha Brewster RN - 03/04/2022 8:53 AM CDT Ref to dr swanson per dr lynch documented in this encounter Plan of Treatment Scheduled Referrals Name Type Priority Associated Diagnoses Order Schedule Ambulatory referral to Cardiology Outpatient Referral Routine Broken heart syndrome Expected: 03/04/2022 (Approximate), Expires: 03/04/2023 documented as of this encounter Visit Diagnoses Diagnosis Broken heart syndrome- Primary Takotsubo syndrome documented in this encounter Care Teams Hat Designer Relationship Specialty Start Date End Date Angeles Hernandez MD [address] [place] [address] Referring Physician Gynecology 07/21/21 documented as of this encounter
--- OUTSIDE RECORDS SUMMARY | 2024-09-03 19:37 | XMS_ITS | Encounter Summary ---
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 Gender Identity Female 03/27/2020 5:01 PM CDT Sexual Orientation Lesbian 03/27/2020 5: 01 PM CDT documented as of this encounter Plan of Treatment Not on file documented as of this encounter Procedures Procedure Name Priority Date/Time Associated Diagnosis Comments GI - RESULT 01/06/2022 documented in this encounter Results * GI - RESULT (01/06/2022) Anatomical Region Laterality Modality Other us Provider Scanning Final Result documented in this encounter Visit Diagnoses Not on filedocumented in this encounter Care Teams Galley Stripper Relationship Specialty Start Date End Date Jeff Guzman PA [address] [place], [place] [id number] PCP - General Family Medicine 06/21/22 02/17/23 Angeles Hernandez MD [address] [place] [address] Referring Physician Gynecology 07/21/21 documented as of this encounter
--- OUTSIDE RECORDS SUMMARY | 2024-09-03 19:37 | XMS_ITS | Encounter Summary ---
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 Gender Identity Female 03/27/2020 5:01 PM CDT Sexual Orientation Lesbian 03/27/2020 5: 01 PM CDT documented as of this encounter Plan of Treatment Not on file documented as of this encounter Procedures Procedure Name Priority Date/Time Associated Diagnosis Comments CARDIOLOGY DOCUMENT SCAN 03/04/2022 documented in this encounter Results * CARDIOLOGY DOCUMENT SCAN (03/04/2022) Anatomical Region Laterality Modality Other us Provider Scanning CV CARDIAC SERVICES PROCEDURES Final Result documented in this encounter Visit Diagnoses Not on filedocumented in this encounter Care Teams Operations Controller Relationship Specialty Start Date End Date Jeff Guzman PA [address] [place], [place] [id number] PCP - General Family Medicine 06/21/22 02/17/23 Ramonita Crawford NP [address] [address] PCP - General Family Medicine 02/18/23 Angeles Hernandez MD [address] [place] [address] Referring Physician Gynecology 07/21/21 documented as of this encounter
--- OUTSIDE RECORDS SUMMARY | 2024-09-03 19:37 | XMS_ITS | Encounter Summary ---
Author Organization [facility] Medical Group Address [address] [facility] [address] [place] [address] Care Team Providers Care Cob Sawyer Name Role Phone Angeles Hernandez MD Unavailable [phone] Reason for Visit * Reason Onset Date Comments Med Refill 05/06/2022 Encounter Details Date Type Department Care Team ([facility] st Contact Info) Description 05/06/2022 Telephone [facility] Family Medicine [address] [place] [address] Brijesh Lynch MD [address] [place] [address] Med Refill Social History Tobacco Use Types Packs/Day Years [...] on file 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 Gender Identity Female 03/27/2020 5:01 PM CDT Sexual Orientation Lesbian 03/27/2020 5: 01 PM CDT documented as of this encounter Ordered Prescriptions Prescription Sig Dispense Quantity Refills Last Filled Start Date End Date furosemide (LASIX) 40 mg tabletIndications: Essential hypertension Take 1 tablet (40 mg total) by mouth 2 (two) times a day 180 tablet 3 05/06/2022 2 metoprolol tartrate (LOPRESSOR) 25 mg immediate release tabletIndications: Essential hypertension Take 0.5 tablets (12.5 mg total) by mouth 2 (two) times a day 90 tablet 3 05/06/2022 3 documented in this encounter Miscellaneous Notes * Telephone Encounter - Patty Villatoro MA - 05/06/2022 11:41 AM CDT Medication refill request documented in this encounter Plan of Treatment Not on file documented as of this encounter Visit Diagnoses Diagnosis Essential hypertension- Primary Unspecified essential hypertension documented in this encounter Discontinued Medications Medication Sig Discontinue Reason Start Date End Da te furosemide (LASIX) 40 mg tablet Take 40 mg by mouth daily Reorder 03/06/2022 05/06/2022 metoprolol tartrate (LOPRESSOR) 25 mg immediate release tablet Take 25 mg by mouth 2 (two) times a day Reorder 03/06/2022 05/06/2022 documented as of this encounter Care Teams Cob Sawyer Relationship Specialty Start Date End Date Angeles Hernandez MD [address] [address] Referring Physician Gynecology 07/21/21 documented as of this encounter
--- OUTSIDE RECORDS SUMMARY | 2024-09-03 19:37 | XMS_ITS | Encounter Summary ---
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 Gender Identity Female 03/27/2020 5:01 PM CDT Sexual Orientation Lesbian 03/27/2020 5: 01 PM CDT documented as of this encounter Medications at Time of Discharge EPINEPHrine 0.3 mg/0.3 mL auto-injection syringeIndications: Moderate persistent asthma with exacerbation INJECT 0.3 ML(0.3 MG TOTAL) IN THE MUSCLE INSTRUCTED NEEDED FOR ANAPHYLAXIS; CALL 911 AFTER USE 2 each 3 2 albuterol (PROAIR DIGIHALER) 90 mcg/actuation inhaler Inhale 2 puffs every 6 (six) hours as needed for wheezing 08/04/20 22 albuterol 2.5 mg /3 mL (0.083 %) nebulizer solutionIndications :Moderate persistent asthma with exacerbation Take 3 mL (2.5 mg total) by nebulization every 6 (six) hours as needed for shortness of breath 280 mL 3 1 05/11/20 22 aspirin 81 mg chewable tablet CHEW AND SWALLOW 1 TABLET BY MOUTH DAILY AT 8 AM 2 05/11/20 22 cetirizine (ZyrTEC) 10 mg tabletIndications:S easonal allergic rhinitis due to pollen Take 1 tablet (10 mg total) by mouth daily 30 tablet 5 0 05/13/20 22 cetirizine (ZyrTEC) 10 mg tabletIndications:S easonal allergic rhinitis due to pollen Take 1 tablet (10 mg total) by mouth daily 30 tablet 50 1 05/13/20 22 cholestyramine (QUESTRAN) 4 gram packet MIX CONTENTS OF 1 PACKET IN LIQUID AND DRINK BY MOUTH AT BEDTIME 2 05/11/20 22 Creon 12,000-38,000 -60,000 unit capsule TAKE 2 CAPSULES BY MOUTH THREE TIMES DAILY WITH MEALS 2 05/11/20 22 docusate sodium (COLACE) 100 mg capsuleIndications: constipation Take 1 capsule (100 mg total) by mouth 2 (two) times a day 60 capsule 2 2 05/12/20 22 Entresto 24-26 mg tablet Take 1 tablet by mouth every 12 (twelve) hours 2 04/02/20 22 fluticasone propionate (FLONASE) 50 mcg/actuation nasal spray SHAKE LIQUID AND USE 1 SPRAY IN EACH NOSTRIL DAILY NEEDED FOR NASAL CONGESTION 1 09/06/19 23 furosemide (LASIX) 40 mg tablet Take 40 mg by mouth daily 2 05/06/20 22 hydrALAZINE (APRESOLINE) 25 mg tabletIndications:h ypertension Take 25 mg by mouth 3 (three) times a day 05/11/20 22 HYDROcodone-acetami nophen (NORCO) 5-325 mg per tablet Take by mouth every 6 (six) hours as needed 2 05/04/20 22 hydrOXYzine (ATARAX) 25 mg tabletIndications:G AD (generalized anxiety disorder) Take 1 tablet (25 mg total) by mouth every 8 (eight) hours as needed for anxiety 90 tablet 2 2 05/11/20 22 isosorbide-hydrALAZ INE (BIDIL) 20-37.5 mg per tabletIndications:c hronic heart failure Take 1 tablet by mouth 3 (three) times a day 05/11/20 22 Jardiance 10 mg tablet Take 10 mg by mouth daily 2 04/02/20 22 levalbuterol (XOPENEX) 1.25 mg/3 mL nebulizer solution 2 08/06/20 22 levoFLOXacin (LEVAQUIN) 750 mg tablet 2 12/29/19 23 LORazepam (ATIVAN) 0.5 mg tabletIndications:P sychophysiological insomnia Take 1 tablet (0.5 mg total) by mouth nightly as needed (Insomnia) 30 tablet 2 2 05/12/20 22 metoprolol tartrate (LOPRESSOR) 25 mg immediate release tablet Take 25 mg by mouth 2 (two) times a day 2 05/06/20 22 montelukast (SINGULAIR) 10 mg tabletIndications:S easonal allergic rhinitis due to pollen TAKE 1 TABLET(10 MG) BY MOUTH EVERY NIGHT 30 tablet 5 2 08/27/19 23 naproxen (NAPROSYN) 500 mg tabletIndications:S acroiliitis (HCC) Take 1 tablet (500 mg total) by mouth 2 (two) times a day as needed for pain (pain) 28 tablet 2 05/11/20 22 omeprazole (PriLOSEC) 40 mg capsule Take 40 mg by mouth daily 2 05/11/20 22 ondansetron ODT (ZOFRAN-ODT) 4 mg disintegrating tablet DISSOLVE 1 TABLET ON THE TONGUE EVERY 6 HOURS NEEDED FOR NAUSEA OR VOMITING 2 12/29/[address] (PROTONIX) 40 mg EC tabletIndications:G astroesophageal reflux disease with esophagitis without hemorrhage TAKE 1 TABLET(40 MG) BY MOUTH DAILY 30 tablet 5 2 08/27/19 23 polyethylene glycol (MIRALAX) 17 gram packetIndications:c onstipation Take 1 packet (17 g total) by mouth daily 30 packet 2 2 05/11/20 22 potassium chloride ER 20 mEq CR tablet Take 20 mEq by mouth 2 04/02/20 22 raloxifene (EVISTA) 60 mg tabletIndications:p revention of breast cancer in high risk women Take 1 tablet (60 mg total) by mouth daily 30 tablet 11 1 05/11/20 22 rosuvastatin (CRESTOR) 5 mg tabletIndications:H ypercholesteremia TAKE 1 TABLET(5 MG) BY MOUTH DAILY 30 tablet 2 2 04/13/20 22 tiZANidine (ZANAFLEX) 4 mg tabletIndications:M uscle pain TAKE 1 TABLET(4 MG) BY MOUTH EVERY 8 HOURS NEEDED FOR MUSCLE SPASMS 90 tablet 2 03/17/20 22 traMADoL (ULTRAM) 50 mg tabletIndications:N popeye pain TAKE 1 TABLET(50 MG) BY MOUTH EVERY 8 HOURS NEEDED FOR PAIN 90 tablet 2 03/18/20 22 documented as of this encounter Discharge Disposition Disposition Code Departure Means Destination Discharge to home or self care documented in this encounter Plan of Treatment Not on file documented as of this encounter Visit Diagnoses Not on filedocumented in this encounter Care Teams Field Auto Appraiser Relationship Specialty Start Date End Date Angeles Hernandez MD [address] [facility] [address] [place] [address] Referring Physician Gynecology 07/21/21 documented as of this encounter
--- OUTSIDE RECORDS SUMMARY | 2024-09-03 19:37 | XMS_ITS | Encounter Summary ---
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 Gender Identity Female 03/27/2020 5:01 PM CDT Sexual Orientation Lesbian 03/27/2020 5: 01 PM CDT documented as of this encounter Plan of Treatment Not on file documented as of this encounter Procedures Procedure Name Priority Date/Time Associated Diagnosis Comments CARDIOLOGY DOCUMENT SCAN 10/19/2021 documented in this encounter Results * CARDIOLOGY DOCUMENT SCAN (10/19/2021) Anatomical Region Laterality Modality Other us Provider Scanning CV CARDIAC SERVICES PROCEDURES Edited Result - Final documented in this encounter Visit Diagnoses Not on filedocumented in this encounter Care Teams Caser Relationship Specialty Start Date End Date Jeff Guzman PA [address] [place] [address] PCP - General Family Medicine 06/21/22 02/17/23 Ramonita Crawford NP [address] [address] PCP - General Family Medicine 02/18/23 Angeles Hernandez MD [address] [place] [address] Referring Physician Gynecology 07/21/21 documented as of this encounter
--- OUTSIDE RECORDS SUMMARY | 2024-09-03 19:37 | XMS_ITS | Encounter Summary ---
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 Gender Identity Female 03/27/2020 5:01 PM CDT Sexual Orientation Lesbian 03/27/2020 5: 01 PM CDT documented as of this encounter Plan of Treatment Not on file documented as of this encounter Procedures Procedure Name Priority Date/Time Associated Diagnosis Comments SCAN - LABS 10/26/2021 documented in this encounter Results * SCAN - LABS (10/26/2021) us Provider Scanning Final Result documented in this encounter Visit Diagnoses Not on filedocumented in this encounter Care Teams Feather Cutting Machine Feeder Relationship Specialty Start Date End Date Jeff Guzman PA [address] [place] [address] PCP - General Family Medicine 06/21/22 02/17/23 Ramonita Crawford NP [address] [address] PCP - General Family Medicine 02/18/23 Angeles Hernandez MD [address] [place], [place] [address] Referring Physician Gynecology 07/21/21 documented as of this encounter
--- OUTSIDE RECORDS SUMMARY | 2024-09-03 19:37 | XMS_ITS | Encounter Summary ---
Author Organization [facility] Address [address] [place] [address] Care Team Providers Care Commission Clerk Name Role Phone Angeles Hernandez MD Unavailable [phone] Reason for Referral * Diagnostic Imaging (Routine) - Closed Specialty Diagnoses / Procedures Referred By Contac t Referred To Contact Diagnoses Chronic pain of right knee Procedures XR Knee Right 4+ Vw Jeff Guzman PA Phone: tel: fax: [address] [address] Referral ID Status Reason Start Date Expiration Date Visits Re quested Visits Authorized [id number] Closed 11/18/2021 12/18/2022 1 1 Reason for Visit * Diagnostic Imaging (Routine) - Closed Specialty Diagnoses / Procedures Referred By Contac adele Referred To Contact Diagnoses Chronic pain of right knee Procedures XR Knee Right 4+ Vw Jeff Guzman PA Phone: tel: fax: [address] [address] Referral ID Status Reason Start Date Expiration Date Visits Re quested Visits Authorized [id number] Closed 11/18/2021 12/18/2022 1 1 Encounter Details Date Type Department Care Team (Latest Contact Info) Description 11/19/2021 8:37 AM CDT - 11/19/2021 11:59 PM CDT Hospital Encounter [facility] Diagnostic Imaging [address] [place] [address] Chronic pain of right knee Discharge Disposition: Discharge to home or self [...] on file 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 PS D: ??11/19/2021 9:47 AM T: Report ID: [id number] Reading Location: ??[id number] Procedure Note George Barclay, DO - 11/19/2021 EXAM DESCRIPTION: XR KNEE [...] George Barclay D.O. PS T: Report ID: [id number] Reading Location: [id number] us Jeff CASTELLON IMG XR PROCEDURES Final Result documented in this encounter Visit Diagnoses Diagnosis Chronic pain of right knee documented in this encounter Care Teams Commission Clerk Relationship Specialty Start Date End Date Angeles Hernandez MD [address] [address] Referring Physician Gynecology 07/21/21 documented as of this encounter
--- OUTSIDE RECORDS SUMMARY | 2024-09-03 19:37 | XMS_ITS | Encounter Summary ---
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
--- OUTSIDE RECORDS SUMMARY | 2024-09-03 19:38 | XMS_ITS | Encounter Summary ---
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 Gender Identity Female 03/27/2020 5:01 PM CDT Sexual Orientation Lesbian 03/27/2020 5: 01 PM CDT documented as of this encounter Miscellaneous Notes * Telephone Encounter - Jaja Aranda BSN - 08/13/2021 11:50 AM [employer] Patient scheduled mailed Attempted to call patient , NoVM set up [employer] documented in this encounter Plan of Treatment Not on file documented as of this encounter Visit Diagnoses Not on filedocumented in this encounter Care Teams Cigarette Making Machine Operator Relationship Specialty Start Date End Date Anegles Hernandez MD [address] [address] Referring Physician Gynecology 07/21/21 documented as of this encounter
--- OUTSIDE RECORDS SUMMARY | 2024-09-03 19:38 | XMS_ITS | Encounter Summary ---
Author Organization [facility] Address [address] [place] [address] Phone Care Team Providers Care Blow Mold Technician Name Role Phone Angeles Hernandez MD Unavailable [phone] Reason for Visit * Reason Onset Date Comments Dina CASTELLON 09/03/2021 Encounter Details Date Type Department Care Team (Late st Contact Info) Description 09/03/2021 Documentation [facility] Oncology [address] [place] [address] [place] [phone] Stacie Tyson, A Dina CASTELLON Social History Tobacco Use Types Packs/Day Years [...] on file 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 Waiting for response. RICT PLANT ENGINEER * Stacie Tyson MA - 09/03/2021 8:08 AM CST Images from the original note were not included. PA for Evista has been approved through [employer]. RICT PLANT ENGINEER documented in this encounter Plan of Treatment Not on file documented as of this encounter Visit Diagnoses Not on filedocumented in this encounter Care Teams Blow Mold Technician Relationship Specialty Start Date End Date Angeles Hernandez MD [address] [address] Referring Physician Gynecology 07/21/21 documented as of this encounter
--- OUTSIDE RECORDS SUMMARY | 2024-09-03 19:38 | XMS_ITS | Encounter Summary ---
Author Organization [facility] Address [address] [place] [address] Care Team Providers Care Balance And Hairspring Assembler Name Role Phone Unavailable Primary Care Provider Unavailabl e Encounter Details Date Type Department Care Team ([facility] st Contact Info) Description 06/20/2021 9:20 AM CDT Lab [facility] [address] [place] [address] Social History Tobacco Use Types Packs/Day Years Used Date Smoking Tobacco: Never Smokeless Tobacco: Never Alcohol Use Standard Drinks/Week Comments Never 0 (1 standard drink = 0.6 oz pur e alcohol) AUDIT-C Answer Date Recorded Q1: How often do you have a drink containing alc ohol? 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 SHELBY VILLATORO Comment: Interpretive data Rast Class ?Result range (KUnits/L) ?1+ ?0.35 ?- ?? 0.69 ?2+ ?0.70 ?- ?? 3.49 ?3+ ?3.50 ?- ??17.49 ?4+ ? 17.50 ?- ??49.99 ?5+ ? 50.00 ?- 100.00 ?6+ ? >100.00 Current interpretive data was last revised on 09. Testing performed by: [facility], [place]., [address] Blood 06/20/2021 9:51 AM CDT 06/20/2021 12:49 PM CDT us Brijesh Lynch MD LAB BLOOD ORDERABLES Final Resu lt Performing Organization Address City/State/[facility] Co de Phone Number SHELBY [address] [facility] Department [place] [address] * (ABNORMAL) Expanded respiratory allergy profile (06/20/2021 9:51 AM CDT) Pathologist [facility] Alternaria tenius IgE <0.10 0.00 - 0.34 kUnits/L SHELBY VILLATORO Comment:Testing performed by : [place]., [address] Pradip white IgE <0.10 0.00 - 0.34 kUnits/L SHELBY VILLATORO Comment:Testing performed by : [place]., [address] Aspergillus fumigatus IgE <0.10 0.00 - 0.34 kUnits/L CERNER Comment:Testing performed by : [facility], [place]., [address] Bermuda grass IgE <0.10 0.00 - 0.34 kUnits/L CERNER Comment:Testing performed by : [facility], [place]., [address] Cat dander IgE 0.91(H) 0.00 - 0.34 kUnits/L CERNER Comment:Testing performed by : [facility], [place]., [address] Cladosporium herbarum IgE <0.10 0.00 - 0.34 kUnits/L CERNER Comment:Testing performed by : [facility], [facility], [address] Cockroach IgE <0.10 0.00 - 0.34 kUnits/L CERNER Comment:Testing performed by : [facility], [place]., [address] Gibson IgE <0.10 0.00 - 0.34 kUnits/L CERNER Comment:Testing performed by : [facility], [place]., [address] Dermatophyton farinae IgE 0.33 0.00 - 0.34 kUnits/L CERNER Comment:Testing performed by : [facility], [place]., [address] Dermatophyton pteronyssinus IgE 0.28 0.00 - 0.34 kUnits/L CERNER Comment:Testing performed by : [facility], [place]., [address] Dog dander IgE 0.44(H) 0.00 - 0.34 kUnits/L CERNER Comment:Testing performed by : [facility], [facility], [address] Elm IgE <0.10 0.00 - 0.34 kUnits/L CERNER Comment:Testing performed by : [facility], [address], [place]., [address] Maple/box elder IgE <0.10 0.00 - 0.34 kUnits/L CERNER Comment:Testing performed by : [facility], [place]., [address] Mountain juniper IgE <0.10 0.00 - 0.34 kUnits/L CERNER Comment:Testing performed by : [facility], [place]., [address] [place] IgE <0.10 0.00 - 0.34 kUnits/L CERNER Comment:Testing performed by : [facility], [place]., [address] [place] IgE <0.10 0.00 - 0.34 kUnits/L CERNER Comment:Testing performed by : [facility], [place]., [address] Pecan (tree) IgE <0.10 0.00 - 0.34 kUnits/L CERNER Comment:Testing performed by : [facility], [place]., [address] Penicillium chrysogenum IgE <0.10 0.00 - 0.34 kUnits/L CERNER Comment:Testing performed by : [place]., [address] Ragweed common IgE <0.10 0.00 - 0.34 kUnits/L CERNER Comment:Testing performed by : [facility], [place]., [address] Marshelder rough IgE <0.10 0.00 - 0.34 kUnits/L CERNER Comment:Testing performed by : [facility], [place]., [address] Pigweed rough IgE <0.10 0.00 - 0.34 kUnits/L CERNER Comment:Testing performed by : [facility], [place]., [address] Thistle new zealander IgE <0.10 0.00 - 0.34 kUnits/L CERNER Comment:Testing performed by : [facility], [place]., [address] [place] IgE <0.10 0.00 - 0.34 kUnits/L SHELBY Comment:Testing performed by : [facility], [place]., [address] Cristino grass IgE <0.10 0.00 - 0.34 kUnits/L SHELBY Comment:Testing performed by : [facility], [place]., [address] Milaca (tree) IgE <0.10 0.00 - 0.34 kUnits/L SHELBY Comment:Testing performed by : [facility], [place]., [address] IgE 44.4 1.0 - 100.0 IUnits/mL SHELBY Comment:Testing performed by : [facility], [place]., [address] Blood 06/20/2021 9:51 AM CDT 06/20/2021 12:49 PM CDT us Brijesh Lynch MD LAB BLOOD ORDERABLES Final Resu lt SHELBY VILLATORO [address] [facility] Department [place] [address] documented in this encounter Visit Diagnoses Not on filedocumented in this encounter
--- OUTSIDE RECORDS SUMMARY | 2024-09-03 19:38 | XMS_ITS | Encounter Summary ---
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 Gender Identity Female 03/27/2020 5:01 PM CDT Sexual Orientation Lesbian 03/27/2020 5: 01 PM CDT documented as of this encounter Plan of Treatment Not on file documented as of this encounter Procedures Procedure Name Priority Date/Time Associated Diagnosis Comments SCAN - RADIOLOGY/IMAGING 10/03/2021 CARDIOLOGY DOCUMENT SCAN 10/03/2021 documented in this encounter Results * SCAN - RADIOLOGY/IMAGING (10/03/2021) Anatomical Region Laterality Modality Other us Provider Scanning Edited Result - Final * CARDIOLOGY DOCUMENT SCAN (10/03/2021) Anatomical Region Laterality Modality Other us Provider Scanning CV CARDIAC SERVICES PROCEDURES Edited Result - Final documented in this encounter Visit Diagnoses Not on filedocumented in this encounter Care Teams Farmworker Relationship Specialty Start Date End Date Jeff Guzman PA [address] [place] [address] PCP - General Family Medicine 06/21/22 02/17/23 Angeles Hernandez MD [address] [place] [address] Referring Physician Gynecology 07/21/21 documented as of this encounter
--- OUTSIDE RECORDS SUMMARY | 2024-09-03 19:38 | XMS_ITS | Encounter Summary ---
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 Pt was seen by Dr. Lynch today and found to have abscess of skin of abdominal wall at previous surgical incision site. Surgical scar in > 5 yrs old. She notes tenderness and pain at the site. No fever VS reviewed from Dr. Lynch's progress note Physical Exam Abdominal: Diagnoses and all orders for this visit: Abscess of skin of abdomen - Aerobic and anaerobic culture and gram stain Abscess Abdominal; Future see procedure note. Advised of wound care. Remove packing in 24 hrs. Culture of wound was taken. See Dr. Lynch's A&P. Pt tolerated procedure well without incident T PROPAGATOR documented in this encounter Procedure Notes * Valerie Medrano PA - 09/22/2021 10:00 AM CST Procedure: I&D abscess Performed By: CANDE Jonas Medicine Man: CHUCKIE Robins Anesthesia: 1% lidocaine with epinephrine Indication: Abscess Consent: Informed consent was obtained from the patient after discussion of risks, benefits, and alternatives. The main risks that were discussed (but not limited to) were bleeding, infection, injury, and reaction to anesthesia. After this discussion all patient questions were answered and they wish to proceed. Procedure: Under sterile conditions, the area over the abscess located abdominal wall was prepped with alcohol. Then, the area of skin overlying the abscess was anesthetized with 1% lidocaine with epinephrine. The area was then cleansed under sterile conditions with Betadine. After the Betadine wasallowed to dry and adequate anesthesia was obtained, using sterile technique--a #11 blade scalpel was used to make a 1 cm incision over the abscess. Purulent drainage was expressed. Culture of abscess was obtained. Iodoform packing was placed into abscess site. The wound was dressed. Sterile technique was maintained throughout this procedure. There were no complications. Patient was advised of routine wound care and packing removal. Pt tolerated the procedure well without incident. CANDE Jonas T PROPAGATOR documented in this encounter Plan of Treatment Not on file documented as of this encounter Results * (ABNORMAL) Aerobic and anaerobic culture and gram stain Abscess Abdominal (09/22/2021 10:07 AM PLANT PROPAGATOR) Direct Specimen Exam Stain: Moderate polymorphonuclear leukocytes seen. No organisms seen. SHELBY VILLATORO Comment:Testing performed by : [facility], [address] [place]., [address] Report Final Report: Few Staphylococcus aureus Methicillin susceptible (MSSA) by penicillin binding protein 2a (PBP2a) testing. (.) SHELBY VILLATORO Comment:Testing performed by : [facility], [address] [place]., [address] Organism STAPHYLOCOCCUS AUREUS SHELBY Abscess (Abdominal) 09/22/2021 10:07 AM PLANT PROPAGATOR 09/22/2021 4:08 PM PLANT PROPAGATOR Narrative SHELBY VILLATORO - 09/25/2021 2:17 PM PLANT PROPAGATOR Testing performed by [facility] ([phone]) Specimens submitted from normally sterile body sites will have all bacterial morphotypes identified. Specimens that contain grossly mixed shonda and/or are from body sites that are not normally sterile will be examined for Staphylococcus aureus, Pseudomonas aeruginosa, beta-hemolytic strep, vancomycin-resistant Enterococcus, Bacteroides, Parabacteroides, Clostridium perfringens and fungus. If any of these are isolated, the organism will be reported. Current interpretive data was last revised on 2019. Organism Antibiotic Method Susceptibility Staphylococcus aureus Trimethoprim with Sulfamethoxazole INTERPRETATION Susceptible Staphylococcus aureus Linezolid INTERPRETATION Susceptible Staphylococcus aureus Doxycycline INTERPRETATION Susceptible Staphylococcus aureus Clindamycin INTERPRETATION Susceptible Staphylococcus aureus Erythromycin INTERPRETATION Susceptible Staphylococcus aureus Oxacillin INTERPRETATION Susceptible Staphylococcus aureus Cefazolin INTERPRETATION Susceptible Staphylococcus aureus Ceftriaxone INTERPRETATION Susceptible Staphylococcus aureus Vancomycin (JAQUELINE) (JAQUELINE) INTERPRET ATION Susceptible Valerie CASTELLON [facility] MICROBIOLOGY - [facility] ORDERABLES Final Result SHELBY VILLATORO [address] [facility] [place] [address] documented in this encounter Visit Diagnoses Diagnosis Abscess of skin of abdomen- Primary Abscess of skin of abdomen documented in this encounter Care Teams Corrugated Fastener Driver Relationship Specialty Start Date End Date David, Angeles L., MD [address] [address] Referring Physician Gynecology 07/21/21 documented as of this encounter
--- OUTSIDE RECORDS SUMMARY | 2024-09-03 19:38 | XMS_ITS | Encounter Summary ---
Author Organization [facility] Address [address] [facility] [address] [place] [address] Care Team Providers Care Automation Machine Operator Name Role Phone Angeles Hernandez MD Unavailable [phone] Reason for Visit * Reason Onset Date Comments Appointment 10/09/2021 Encounter Details Date Type Department Care Team ([facility] Contact Info) Description 10/09/2021 Telephone [facility] Pul[facility]ology [facility] [address] [address] Hannah Cali MA Appointment Social History Tobacco Use Types Packs/Day Years [...] on file 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 Will call back once she receives the machine. RONMENTAL CHANGE ANALYST documented in this encounter Plan of Treatment Not on file documented as of this encounter Visit Diagnoses Not on filedocumented in this encounter Care Teams Automation Machine Operator Relationship Specialty Start Date End Date Angeles Hernandez MD [address] [address] Referring Physician Gynecology 07/21/21 documented as of this encounter
--- OUTSIDE RECORDS SUMMARY | 2024-09-03 19:38 | XMS_ITS | Encounter Summary ---
Author Organization [facility] Address [address] [place] [address] Phone Care Team Providers Care Athletic Trainer Name Role Phone Angeles Hernandez MD Unavailable [phone] Encounter Details Date Type Department Care Team (Late st Contact Info) Description 09/18/2021 Orders Only [facility] Oncology [address] [place] [address] RandallstownRachel MD [address] [place] [address] Family history of breast cancer (Primary Dx) Social History Tobacco Use Types [...] on file 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
--- OUTSIDE RECORDS SUMMARY | 2024-09-03 19:38 | XMS_ITS | Encounter Summary ---
Author Organization [facility] Address [address] [place] [address] Phone Care Team Providers Care Kiln Fireman Name Role Phone Unavailable Primary Care Provider Unavailabl e Encounter Details Date Type Department Care Team (Late st Contact Info) Description 07/10/2021 Telephone [facility] Surgery [address] [facility] Advanced Medicine 5th [place] [address] [place] [address] Keyanna Pérez CPhT Social History Tobacco Use Types Packs/Day Years [...] file 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 RVISOR CHAR HOUSE documented in this encounter Plan of Treatment Not on file documented as of this encounter Visit Diagnoses Not on filedocumented in this encounter
--- OUTSIDE RECORDS SUMMARY | 2024-09-03 19:38 | XMS_ITS | Encounter Summary ---
Author Organization [facility] Healthcare Address [address] [place] [address] Care Team Providers Care Cold Reduction Roller Name Role Phone Angeles Hernandez MD Unavailable [phone] Encounter Details Date Type Department Care Team (Latest Contact Info) Description 09/22/2021 12:58 PM GRINDER SET UP OPERATOR EXTERNAL - 09/22/2021 11:59 PM GRINDER SET UP OPERATOR EXTERNAL Hospital Encounter [facility] [place] [address] Abscess of skin of abdomen Discharge Disposition: Discharge to home or self care Social History Tobacco Use Types Packs/Day Years Used Date Smoking Tobacco: Never Smokeless Tobacco: Never Alcohol Use Standard Drinks/Week Comments Never 0 (1 standard drink = 0.6 oz pur e alcohol) AUDIT-C Answer Date Recorded Q1: How often do you have a drink containing alc ohol? Never 08/12/2021 Average Number of Drinks Not on file Q3: How often do you have si x or more drinks on one occasion? Never 08/12/2021 PHQ-2 Answer Date Recorded PHQ-2 Total Score (If total score is 3 or more points, staff should administer the PHQ-9) 2 03/10/2021 Comments Unknown Sex and Gender Information Value Date Recorded Sex Assigned at Not on file 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 GRINDER SET UP OPERATOR EXTERNAL Gender Identity Female 03/27/2020 5:01 PM CDT [...] mouth daily 30 tablet 50 01/28/2021 2 clindamycin (CLEOCIN) 150 mg capsuleIndication s:Acute non-recurrent maxillary sinusitis Take 1 capsule (150 mg total) by mouth 4 (four) times a day for 10 days 40 capsule 09/22/2021 2 EPINEPHrine 0.3 mg/0.3 mL auto-injection syringeIndication s:Anaphylaxis Inject 0.3 mL (0.3 mg total) into the muscle as instructed as needed for anaphylaxis Call 911 after use. 1 Syringe 5 10/24/2020 2 fluticasone propionate (FLONASE) 50 mcg/actuation nasal spray SHAKE LIQUID AND USE 1 SPRAY IN EACH NOSTRIL DAILY NEEDED FOR NASAL CONGESTION 03/26/2021 3 ibuprofen (ADVIL,MOTRIN) 800 mg tablet Take 1 tablet by mouth every 6 (six) hours as needed 11/13/2020 2 methylPREDNISolon e (MEDROL DOSEPACK) 4 mg DosepackIndicatio ns:Acute non-recurrent maxillary sinusitis Take as directed on package. 21 tablet 09/22/2021 2 metoprolol XL (TOPROL-XL) 25 mg extended release tabletIndications :Benign essential HTN TAKE 1 TABLET(25 MG) BY MOUTH DAILY 30 tablet 1 08/03/2021 2 montelukast (SINGULAIR) 10 mg tabletIndications :Seasonal allergic rhinitis due to pollen TAKE 1 TABLET(10 MG) BY MOUTH EVERY NIGHT 30 tablet 5 08/24/[address] (PROTONIX) 40 mg EC tabletIndications :Gastroesophageal reflux disease with esophagitis without hemorrhage TAKE 1 TABLET(40 MG) BY MOUTH DAILY 30 tablet 5 06/23/2021 2 raloxifene (EVISTA) 60 mg tabletIndications :prevention of breast cancer in high risk women Take 1 tablet (60 mg total) by mouth daily 30 tablet 11 08/05/2021 2 rosuvastatin (CRESTOR) 5 mg tabletIndications :Hypercholesterem ia Take 1 tablet (5 mg total) by mouth daily 30 tablet 2 07/07/2021 2 tiZANidine (ZANAFLEX) 4 mg tabletIndications :Muscle pain TAKE 1 TABLET(4 MG) BY MOUTH EVERY 8 HOURS NEEDED FOR MUSCLE SPASMS 90 tablet 2 08/07/2021 2 traMADoL (ULTRAM) 50 mg tabletIndications :Neck pain TAKE 1 TABLET(50 MG) BY MOUTH EVERY 8 HOURS NEEDED FOR PAIN 90 tablet 09/22/2021 2 documented as of this encounter Discharge Disposition Disposition Code Departure Means Destination Discharge to home or self care documented in this encounter Plan of Treatment Not on file documented as of this encounter Procedures Procedure Name Priority Date/Time Associated Diagnosis Comments AEROBIC AND ANAEROBIC CULTURE AND GRAM STAIN Routine 09/22/2021 10:07 AM GRINDER SET UP OPERATOR EXTERNAL Abscess of skin of abdomen documented in this encounter Results * (ABNORMAL) Aerobic and anaerobic culture and gram stain Abscess Abdominal (09/22/2021 10:07 AM GRINDER SET UP OPERATOR EXTERNAL) Direct Specimen Exam Stain: Moderate polymorphonuclear leukocytes seen. No organisms seen. SHELBY VILLATORO Comment:Testing performed by : [facility], [address] [place] [address], [place]., [address] Report Final Report: Few Staphylococcus aureus Methicillin susceptible (MSSA) by penicillin binding protein 2a (PBP2a) testing. (.) SHELBY Comment:Testing performed by : [facility], [address] [place]., [address] Organism STAPHYLOCOCCUS AUREUS SHELBY Abscess (Abdominal) 09/22/2021 10:07 AM GRINDER SET UP OPERATOR EXTERNAL 09/22/2021 4:08 PM GRINDER SET UP OPERATOR EXTERNAL Narrative SHELBY VILLATORO - 09/25/2021 2:17 PM GRINDER SET UP OPERATOR EXTERNAL Testing performed by [facility] Microbiology Laboratory ([phone]) Specimens submitted from normally sterile body sites [...] ATION Susceptible [facility]CROBIOLOGY - [facility] AL ORDERABLES Final Result SHELBY [address] [facility] Department of Laboratories [place], [place] [id number] documented in this encounter Visit Diagnoses Diagnosis Abscess of skin of abdomen documented in this encounter Care Teams Cold Reduction Roller Relationship Specialty Start Date End Date Angeles Hernandez MD [address] [address] Referring Physician Gynecology 07/21/21 documented as of this encounter
--- OUTSIDE RECORDS SUMMARY | 2024-09-03 19:38 | XMS_ITS | Encounter Summary ---
Author Organization [facility] Address [address] [facility] [address] [place] [address] Care Team Providers Care Welding Machine Operator Ultrasonic Name Role Phone Angeles Hernandez MD Unavailable Reason for Visit * Reason Onset Date Comments Call Back 10/12/2021 Lab error Encounter Details Date Type Department Care Team ([facility] st Contact Info) Description 10/12/2021 Telephone [facility] Family Medicine [address] [place] [id number] Brijesh Lynch MD [address] [place] [address] Call Back (Lab error/) Social History Tobacco Use Types Packs/Day Years [...] on file 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 lvmtcb for pt @ 305 pm METAL MIXER OPERATOR HELPER METAL MIXER OPERATOR HELPER documented in this encounter Plan of Treatment Not on file documented as of this encounter Visit Diagnoses Not on filedocumented in this encounter Care Teams Welding Machine Operator Ultrasonic Relationship Specialty Start Date End Date Angeles Hernandez MD [address] [address] Referring Physician Gynecology 07/21/21 documented as of this encounter
--- OUTSIDE RECORDS SUMMARY | 2024-09-03 19:38 | XMS_ITS | Encounter Summary ---
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 Sequencing is complete, but technical standards were not met for the deletion duplication analysis. I will go ahead and have them release what they, and have requested a new blood kit with mobile phlebotomy and so we can then get a 2nd sample to proceed with the rest of the test. I asked Destini to email me if she has any questions or concerns. RIOR DOOR INSTALLER documented in this encounter Plan of Treatment Not on file documented as of this encounter Visit Diagnoses Not on filedocumented in this encounter Care Teams Cutting Department Supervisor Relationship Specialty Start Date End Date Angeles Hernandez MD [address] [address] Referring Physician Gynecology 07/21/21 documented as of this encounter
--- OUTSIDE RECORDS SUMMARY | 2024-09-03 19:38 | XMS_ITS | Encounter Summary ---
Author Organization [facility] Address [address] [facility] [address] [place] [address] Care Team Providers Care Division Commander Name Role Phone Angeles Hernandez MD Unavailable [phone] Reason for Visit * Reason Comments Follow-up Abcess to abd, sinus inf, uti Encounter Details Date Type Department Care Team ([facility] st Contact Info) Description 09/28/2021 9:30 AM HR 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 Office Visit [facility] Medical [facility] Family Medicine [address] [place] [address] Brijesh Lynch MD [address] [place] [address] [address] [place] [address] Yeast vaginitis (Primary Dx); Dysuria; Mild intermittent asthma without complication; Gastroesophageal reflux disease with esophagitis without hemorrhage; Benign essential HTN Social History Tobacco Use Types Packs/Day Years [...] on file 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 Gender Identity Female 03/27/2020 5:01 PM CDT Sexual Orientation Lesbian 03/27/2020 5: 01 PM CDT documented as of this encounter Last Filed Vital Signs Vital Sign Reading Time Taken Comments Blood Pressure 130/76 09/28/2021 9:42 AM HR 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 Pulse 71 09/28/2021 9:42 AM HR 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 Temperature 36.4 ??C (97.5 ??F) 09/28/2021 9:42 AM CS T Respiratory Rate 18 09/28/2021 9:42 AM HR 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 Oxygen Saturation 97% 09/28/2021 9:42 AM HR 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 Inhaled Oxygen Concentration - - Weight 87.5 kg (193 lb) 09/28/2021 9:42 AM HR 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 Height 167.6 cm (5' 6 ) 09/28/2021 9:42 AM HR 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 Body Mass Index 31.15 09/28/2021 9:42 AM HR 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 documented in this encounter Ordered Prescriptions Prescription Sig Dispense Quantity Refills Last Filled Start Date End Date fluconazole (DIFLUCAN) 100 mg tabletIndications: Dysuria,Yeast vaginitis Take 1 tablet (100 mg total) by mouth daily 7 tablet 09/28/2021 12/18/2021 documented in this encounter Progress Notes * Brijesh Lynch MD - 09/28/2021 9:30 AM CST Images from the original note were not included. Subjective/Objective Patient ID: Chrissy Kilgore is a 51 y.o. female. Visit Date: 09/28/2021 Chief Complaint Follow-up (Abcess to abd, sinus inf, uti /) HPI Returns to the office for repeat evaluation. States that she has yeast infectoin and the sinuses are draining The ua is neg. hte htn is under control and the allergies are under control The gerd and the lipids are under control. Review of Systems Constitutional: Negative for activity change. HENT: Negative for congestion. Eyes: Negative for visual disturbance. Respiratory: Negative for cough and chest tightness. Cardiovascular: Negative for chest pain and leg swelling. Gastrointestinal: Negative for abdominal pain, blood in stool, constipation, diarrhea and nausea. Genitourinary: Negative for difficulty urinating. Pressure when urinating Musculoskeletal: Negative for arthralgias, back pain and [...] Diagnoses and all orders for this visit: Yeast vaginitis (B37.3) (Primary) Comments: conditon acute diflucan Dysuria (R30.0) Comments: condition acute and resolved. get ua from [facility] Orders: - POCT urinalysis dipstick - Urinalysis reflex to microscopic; Future Mild intermittent asthma without complication (J45.20) Comments: conditon chronic and at goal continue aleksandra inhaler Gastroesophageal reflux disease with esophagitis without hemorrhage (K21.00) Comments: conditon chroicn and at goal continue the protonix Benign essential HTN (I10) Comments: conditon chroinc and at goal continuet he metoprolol xl. Brijesh Lynch MD 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 documented in this encounter Plan of Treatment Not on file documented as of this encounter Procedures Procedure Name Priority Date/Time Associated Diagnosis Comments POCT URINALYSIS DIPSTICK Routine 09/28/2021 9:51 AM HR 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 Dysuria documented in this encounter Results * (ABNORMAL) POCT urinalysis dipstick (09/28/2021 9:51 AM HR 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) Color, Urine, POC Yellow Clarity, ur, POC Clear Clear Glucose, ur, POC Negative Negative mg/dL Bilirubin, ur, POC Negative Negative, Small, Moderate, Large Ketones, ur, POC Negative Negative Specific [place], POC 1.025 1.005 - 1.030 Blood, ur, POC Negative Negative pH, ur, POC 60.0(A) 5.0 - 8.0 Protein, ur, POC Negative Negative Urobilinogen, urine, POC 0.2 0.2 - 1.0 mg/dL Nitrite, ur, POC Negative Negative Leukocytes, ur, POC Negative Negative Lot Number [id number] Urine 09/28/2021 9:51 AM HR 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 Brijesh Lynch MD POINT OF CARE TEST ORDERABLES F inal Result documented in this encounter Visit Diagnoses Diagnosis Yeast vaginitis- Primary Dysuria Mild intermittent asthma without complication Gastroesophageal reflux disease with esophagitis without hemorrhage Benign essential HTN documented in this encounter Discontinued Medications Medication Sig Discontinue Reason Start Date End Da te clindamycin (CLEOCIN) 150 mg capsuleIndications:Acut e non-recurrent maxillary sinusitis Take 1 capsule (150 mg total) by mouth 4 (four) times a day for 10 days Therapy completed 09/22/2021 09/28/2021 methylPREDNISolone (MEDROL DOSEPACK) 4 mg DosepackIndications:Acu te non-recurrent maxillary sinusitis Take as directed on package. Therapy completed 09/22/2021 09/28/2021 documented as of this encounter Care Teams Division Commander Relationship Specialty Start Date End Date Angeles Hernandez MD [address] [place] [address] Referring Physician Gynecology 07/21/21 documented as of this encounter
--- OUTSIDE RECORDS SUMMARY | 2024-09-03 19:38 | XMS_ITS | Encounter Summary ---
Author Organization [facility] Address [address] [place] [address] Phone Care Team Providers Care Physicist Solid Earth Name Role Phone Anglees Hernandez MD Unavailable [phone] Encounter Details Date Type Department Care Team (Late st Contact Info) Description 09/18/2021 Telephone [facility] Oncology [address] [facility] [address] [place] [address] Rachel Kay MD [address] [place] [address] Social History Tobacco Use Types Packs/Day Years [...] on file 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
--- OUTSIDE RECORDS SUMMARY | 2024-09-03 19:38 | XMS_ITS | Encounter Summary ---
Author Organization [facility] Healthcare Address [address] [place] [address] Care Team Providers Care Furnace Operator Name Role Phone Angeles Hernandez MD Unavailable [phone] Encounter Details Date Type Department Care Team ([facility] st Contact Info) Description 09/28/2021 10:55 AM CABIN SUPERVISOR [facility] [address] [place] [address] Dysuria; Hypercholesteremia Social History Tobacco Use Types Packs/Day Years [...] on file 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 CABIN SUPERVISOR Gender Identity Female 03/27/2020 5:01 PM CDT Sexual Orientation Lesbian 03/27/2020 5: 01 PM CDT documented as of this encounter Plan of Treatment Pending Results Name Type Priority Associated Diagnoses Date /Time Urinalysis reflex to microscopic Lab Routine Dysuria 09/28/2021 11:02 AM CABIN SUPERVISOR documented as of this encounter Visit Diagnoses Diagnosis Dysuria Hypercholesteremia Pure hypercholesterolemia documented in this encounter Care Teams Furnace Operator Relationship Specialty Start Date End Date Angeles Hernandez MD [address] [address] Referring Physician Gynecology 07/21/21 documented as of this encounter
--- OUTSIDE RECORDS SUMMARY | 2024-09-03 19:38 | XMS_ITS | Encounter Summary ---
Author Organization [facility] Healthcare Address [address] [place] [address] Care Team Providers Care Coating Machine Operator Name Role Phone Angeles Hernandez MD Unavailable [phone] Reason for Referral * MRI/CAT/PET Scan (Routine) - Closed Specialty Diagnoses / Procedures [facility] Referred To Contact Radiology Diagnoses Family history of breast cancer Atypical lobular hyperplasia (ALH) of left breast Procedures MRI Breast Bilateral W WO Contrast Rachel Kay MD [address] [facility] [place] [address] Phone: tel: fax: [address] [address] Referral ID Status Reason Start Date Expiration Date Visits Re quested Visits Authorized [id number] Closed 09/24/2021 12/24/2021 1 1 B NURSE Reason for Visit * MRI/CAT/PET Scan (Routine) - Closed Specialty Diagnoses / Procedures [facility] Referred To Contact Radiology Diagnoses Family history of breast cancer Atypical lobular hyperplasia (ALH) of left breast Procedures MRI Breast Bilateral W WO Contrast Rachel Kay MD [address] [place] [address] Phone: tel: fax: [address] [phone] Referral ID Status Reason Start Date Expiration Date Visits Re quested Visits Authorized [id number] Closed 09/24/2021 12/24/2021 1 1 Encounter Details Date Type Department Care Team (Latest Contact Info) Description 10/06/2021 8:30 AM REHAB NURSE - 10/06/2021 11:59 PM REHAB NURSE Hospital Encounter [address] [address] Family history of breast cancer; Atypical lobular hyperplasia (ALH) of left breast Discharge Disposition: Discharge to home or self [...] on file 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 6 tablet 10/06/2021 2 albuterol (PROAIR DIGIHALER) 90 mcg/actuation inhaler [...] mouth 3 (three) times a day 2 metoprolol XL (TOPROL-XL) 25 mg extended [...] CONTRAST Schedule Routine, Read Routine (OP Routine) 10/06/2021 10:00 AM REHAB NURSE Family history of breast cancer Atypical lobular hyperplasia (ALH) of left breast documented in this encounter Results * MRI Breast Bilateral W WO Contrast (10/06/2021 10:00 AM REHAB NURSE) Anatomical Region Laterality Modality Breast Bilateral Magnetic Resonan ce 10/06/2021 10:1 9 AM REHAB NURSE Narrative 10/06/2021 12:30 PM REHAB NURSE EXAM DESCRIPTION: ?? MRI BREAST BILATERAL W WO CONTRAST REASON FOR STUDY: ?? 51-year-old female with an elevated estimated lifetime risk of breast cancer (33%). ??High risk screening breast MRI. COMPARISON: Breast MRI from 12/26/2015 and 12/16/2012. ??Mammography from 12/10/2020, 07/05/2016, and 07/04/2015. TECHNIQUE: ??Multiplanar and multisequence MRI of both breasts was performed before and after the uneventful intravenous administration of ??17 ??mL of ?? Dotarem ??in a ??right antecubital ??IV catheter according to standard breast imaging protocol on a dedicated breast coil. The images were reviewed on an iSpecimen work station and underwent CAD analysis. FINDINGS: BACKGROUND ENHANCEMENT: Mild and symmetric. FIBROGLANDULAR TISSUE: Almost entirely fat. RIGHT BREAST: There are stable benign round and oval circumscribed masses in the right breast, not suspiciously changed for greater than 2 years, evidence of a benign etiology. ??There are no suspicious masses. There is no suspicious non-mass enhancement. There is no abnormal skin, nipple, or pectoralis muscle enhancement. There is no right axillary or internal mammary lymphadenopathy. LEFT BREAST: There are stable benign round and oval circumscribed masses in the left breast, not suspiciously changed for greater than 2 years, evidence of a benign etiology. ??There are no suspicious masses. There is no suspicious non-mass enhancement. There is no abnormal skin, nipple, or pectoralis muscle enhancement. There is no left axillary or internal mammary lymphadenopathy. The visualized portions of the mediastinum and upper abdomen are normal in appearance on limited evaluation. IMPRESSION: No MRI evidence of malignancy. Given the patient's elevated estimated lifetime risk of breast cancer, annual screening mammography and annual screening breast MRI is recommended. ASSESSMENT: BIRADS: 2 - BENIGN. ?? THIS IS AN ELECTRONICALLY VERIFIED FINAL REPORT 10/06/2021 12:30 PM - Electronically signed by ??Alberto Macdonald M.D. AB: AB D: ??10/06/2021 12:30 PM T: ??10/06/2021 12:30 PM Report ID: [id number] Reading Location: ??[facility] Rachel Kay MD IMG MRI PROCEDURES Final Re sult documented in this encounter Visit Diagnoses Diagnosis Family history of breast cancer Family history of malignant neoplasm of breast Atypical lobular hyperplasia (ALH) of left breast documented in this encounter Administered Medications Inactive Administered Medications - up to 3 most recent administrations Medication Order MAR Action Action Date Dose Rate Site gadoterate meglumine (DOTAREM) 0.5 mmol/mL injection 20 mL 20 mL, intravenous, Once in imaging, contrast, Starting on Tu10/06/21 at 0923, For 1 dose Contrast Given 10/06/2021 9:24 AM REHAB NURSE 17 mL Right Antecubital documented in this encounter Orders Medications Ordered That Sarabjit ht Not Have Been Administered Count Last Ordered Date First Ordered Date gadoterate meglumine (DOTARE M) 0.5 mmol/mL injection 20 mL 1 10/06/2021 documented in this encounter Care Teams Coating Machine Operator Relationship Specialty Start Date End Date Anegles Hernandez MD [address] [id number] Referring Physician Gynecology 07/21/21 documented as of this encounter
--- OUTSIDE RECORDS SUMMARY | 2024-09-03 19:38 | XMS_ITS | Encounter Summary ---
Author Organization [facility] Address [address] [place] [address] Phone Care Team Providers Care Torque Tester Name Role Phone Angeles Hernandez MD Unavailable [phone] Jeff Guzman Primary Care Provider [phone] Ramonita Crawford NP Primary Care Provider [phone] Encounter Details Date Type Department Care Team (Latest Contact Info) Description 08/05/2021 Orders Only [facility] Scanning, Provider Social History Tobacco Use Types Packs/Day Years Used Date Smoking Tobacco: Never Smokeless Tobacco: Never Alcohol Use Standard Drinks/Week Comments Never 0 (1 standard drink = 0.6 oz pur e alcohol) AUDIT-C Answer Date Recorded Q1: How often do you have a drink containing alc ohol? 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 Gender Identity Female 03/27/2020 5:01 PM CDT Sexual Orientation Lesbian 03/27/2020 5: 01 PM CDT documented as of this encounter Plan of Treatment Not on file documented as of this encounter Procedures Procedure Name Priority Date/Time Associated Diagnosis Comments SCAN - LABS 08/05/2021 documented in this encounter Results * SCAN - LABS (08/05/2021) us Provider Scanning Final Result documented in this encounter Visit Diagnoses Not on filedocumented in this encounter Care Teams Torque Tester Relationship Specialty Start Date End Date Jeff Guzman PA [address] [place] [address] PCP - General Family Medicine 06/21/22 02/17/23 Ramonita Crawford NP [address] [address] PCP - General Family Medicine 02/18/23 Angeles Hernandez MD [address] [place], [place] [id number] Referring Physician Gynecology 07/21/21 documented as of this encounter
--- OUTSIDE RECORDS SUMMARY | 2024-09-03 19:38 | XMS_ITS | Encounter Summary ---
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 Rachel Kay at [place], [place] location for high risk f/u appt. Lmov re new referral. ER DIVERSIFIED CROPS ER DIVERSIFIED CROPS documented in this encounter Plan of Treatment Not on file documented as of this encounter Visit Diagnoses Not on filedocumented in this encounter Care Teams Intellectual Property Lawyer Relationship Specialty Start Date End Date Angeles Hernandez MD [address] [address] Referring Physician Gynecology 07/21/21 documented as of this encounter
--- OUTSIDE RECORDS SUMMARY | 2024-09-03 19:38 | XMS_ITS | Encounter Summary ---
Author Organization [facility] Address [address] [facility] [address] [place] [address] Care Team Providers Care Ream Cutter Name Role Phone Angeles Hernandez MD Unavailable [phone] Reason for Referral * Sleep Medicine (Routine) - Closed Specialty Diagnoses / Procedures Referred By Contac t Referred To Contact Diagnoses Snoring Abnormal leg movement Fatigue, unspecified type Psychophysiological insomnia Essential hypertension Anxiety Nonsmoker Overweight Procedures Portable/Home Sleep Study Teddy Amos MD Phone: tel: fax: [address] [address] Referral ID Status Reason Start Date Expiration Date Visits Re quested Visits Authorized [id number] Closed 08/12/2021 09/11/2022 1 1 ING SUPERVISOR Reason for Visit * Reason Comments New Patient * Consultation (Routine) - Closed Specialty Diagnoses / Procedures Referred By Contact Referred To Contact Sleep Medicine / Pulmonology Diagnoses Snoring Abnormal leg movement Jeff Guzman PA Phone: tel: fax: [facility] [address] [address] Phone: tel: fax: Referral ID Status Reason Start Date Expiration Date V isits Requested Visits Authorized [id number] Closed Specialty Services Required 07/07/2021 08/06/2022 1 1 Encounter Details Date Type Department Care Team (Late st Contact Info) Description 08/12/2021 10:00 AM MAPPING SUPERVISOR Office Visit [facility] [address] [address] Teddy Amos MD [address] [place] [address] Fatigue, unspecified type (Primary Dx); Snoring; Abnormal leg movement; Psychophysiological insomnia; Essential hypertension; Anxiety; Nonsmoker; Overweight Social History Tobacco Use Types Packs/Day Years [...] on file 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 MAPPING SUPERVISOR Gender Identity Female 03/27/2020 5:01 PM CDT Sexual Orientation Lesbian 03/27/2020 5: 01 PM CDT documented as of this encounter Last Filed Vital Signs Vital Sign Reading Time Taken Comments Blood Pressure 126/84 08/12/2021 9:59 AM MAPPING SUPERVISOR Pulse 105 08/12/2021 9:59 AM MAPPING SUPERVISOR Temperature 36.6 ??C (97.8 ??F) 08/12/2021 9:59 AM CS T Respiratory Rate 18 08/12/2021 9:59 AM MAPPING SUPERVISOR Oxygen Saturation 99% 08/12/2021 9:59 AM MAPPING SUPERVISOR Inhaled Oxygen Concentration - - Weight 86.6 kg (191 lb) 08/12/2021 9:59 AM MAPPING SUPERVISOR Height 167.6 cm (5' 6 ) 08/12/2021 9:59 AM MAPPING SUPERVISOR Body Mass Index 30.83 08/12/2021 9:59 AM MAPPING SUPERVISOR documented in this encounter Progress Notes * Teddy Amos MD - 08/12/2021 10:00 AM CST Subjective/Objective Patient ID: Chrissy Kilgore is a 51 y.o. female. Chief Complaint Chief Complaint Patient presents with ??? New Patient HPI Patient is pleasant 51-year-old female who came to us complaining of sleep disturbances. She relates ???snoring, labored breathing, entire body jerks, seems like oxygen is not reaching lungs, shallow breathing and ???. Patient does report his snoring, witnessed sleep apnea, restless legs and excessive daytime fatigue. She denies any history of waking up because of snoring. Patient does report history of cough and waking up with dry mouth, insomnia, falling asleep at unwanted time, depending on alarm to wake up, sleep an hour past her normal wake-up time, night sweats, restless and disturbed sleep. She does report history nightmares, morning headache, nausea and anxiety. She denies any history of wake up violence, wake-up confusion, bedwetting, jaw pain, teeth grinding, disturbing thoughts, cataplexy, sleep walking, sleep talking, palpitation or gasping for breath. She retires to bed at 8:30 p.m. and wake up at 6:30 a.m. takes her about 40 minutes to go sleep, wake up 4-5 times not to go the bathroom, does take 3 naps during the week for about 2 hours. She denies any history of smoking or alcohol consumption. She does not exercise. She does drink caffeinatedbeverages. Her [place] sleeping score is 11/24. She lives in [place]. She lives in [facility]. She does have 3 cats who sleep in her bed. She did not receive COVID vaccine or flu shot. Allergies Allergen Reactions ??? Penicillins Hives and Anaphylaxis Anaphylaxis ??? Tamoxifen Hives ??? Atorvastatin Joint pain Review of Systems Constitutional: Positive for fatigue. Negative for appetite change, chills and fever. HENT: Negative for congestion, ear pain, mouth sores, tinnitus and voice change. Eyes: Negative for photophobia and pain. Respiratory: Negative for choking and stridor. Cardiovascular: Negative for chest pain and palpitations. Gastrointestinal: Negative for abdominal distention, abdominal pain and nausea. Endocrine: Negative for cold intolerance and polyphagia. Genitourinary: Negative for dysuria and hematuria. Musculoskeletal: Negative for gait problem and joint swelling. Skin: Negative for pallor and rash. Allergic/Immunologic: Negative for immunocompromised state. Neurological: Negative for seizures and facial asymmetry. Hematological: Negative for adenopathy. Does not bruise/bleed easily. Psychiatric/Behavioral: Negative for agitation and confusion. Vitals BP 126/84 Pulse 105 Temp 36.6 ??C (97.8 ??F) Resp 18 Ht 167.6 cm (5' 6 ) Wt 86.6 kg (191 lb) SpO2 99% BMI 30.83 kg/m?? Physical Exam Constitutional: General: She is not in acute distress. Appearance: She is well-developed. She is not diaphoretic. HENT: Head: Normocephalic and atraumatic. Neck: Thyroid: No thyromegaly. Cardiovascular: Rate and Rhythm: Normal rate and regular rhythm. Heart sounds: No murmur heard. No gallop. Pulmonary: Effort: Pulmonary effort is normal. No accessory muscle usage or respiratory distress. Breath sounds: No stridor. Chest: Chest wall: No mass, deformity or tenderness. Breasts: Right: No mass. Left: No mass. Abdominal: General: Bowel sounds are normal. There is no distension. Palpations: Abdomen is soft. Tenderness: There is no abdominal tenderness. Musculoskeletal: General: No tenderness or deformity. Normal range of motion. Cervical back: Normal range of motion and neck supple. Lymphadenopathy: Cervical: No cervical adenopathy. Skin: General: Skin is warm and dry. Capillary Refill: Capillary refill takes less than 2 seconds. Findings: No erythema or rash. Neurological: Mental Status: She is alert and oriented to person, place, and time. Cranial Nerves: No cranial nerve deficit. Coordination: Coordination normal. Psychiatric: Behavior: Behavior normal. Diagnoses and all orders for this visit: Fatigue, unspecified type (Primary) Snoring Comments: refer to sleep medicine Orders: - Ambulatory referral to Sleep Medicine Abnormal leg movement Comments: refer to sleep medicine Orders: - Ambulatory referral to Sleep Medicine Psychophysiological insomnia Essential hypertension Anxiety Nonsmoker Overweight Results: Lab Results Component Value Date WBC 7.0 03/11/2021 HGB 14.1 03/11/2021 HCT 41.2 03/11/2021 MCV 90.5 03/11/2021 LABPLAT 336 03/11/2021 Plan: Patient will return back in 2 months for re-evaluation. Patient was advised about the pathophysiology of obstructive sleep apnea, complication of untreated obstructive sleep apnea, sleep hygiene, diet and exercise program for weight reduction. She was advised about keeping the pets out of her bedroom. She did not receive COVID-19 vaccine. She will be sent for home sleep study for further evaluation. Patient was encouraged to call us with any inquiry, concern for question about their condition, lab work, x-rays or CT scans at any time, please see further details for assessment and plan in HPI THIS NOTE WAS CREATED IN PART WITH THE ASSISTANCE OF [employer] VOICE RECOGNITION SOFTWARE. CIGARETTE MAKING EXAMINER VARIANCES MAY OCCUR. ING SUPERVISOR ING SUPERVISOR documented in this encounter Plan of Treatment Not on file documented as of this encounter Results * Portable/Home Sleep Study (09/07/2021 8:59 AM MAPPING SUPERVISOR) Teddy Amos MD SLEEP CENTER ORDERABLES Fin al Result Performing Organization Address City/State/[facility] Co de Phone Number B [facility] [address] [place] [address] documented in this encounter Visit Diagnoses Diagnosis Fatigue, unspecified type- Primary Snoring Other dyspnea and respiratory abnormality Abnormal leg movement Psychophysiological insomnia Persistent disorder of initiating or maintaining sleep Essential hypertension Unspecified essential hypertension Anxiety Anxiety state, unspecified Nonsmoker Other specified conditions influencing health status Overweight documented in this encounter Discontinued Medications Medication Sig Discontinue Reason Start Date End Da te hydrOXYzine (ATARAX) 25 mg tabletIndications:Drug eruption Take 1 tablet (25 mg total) by mouth 3 (three) times a day for 10 days Therapy completed 06/09/2021 08/12/2021 documented as of this encounter Orders Outpatient Referral Count Last Ordered Date Fir st Ordered Date AMB REFERRAL TO SLEEP MEDICINE 1 08/12/2021 documented in this encounter Care Teams Ream Cutter Relationship Specialty Start Date End Date Angeles Hernandez MD [address] [place] [address] Referring Physician Gynecology 07/21/21 documented as of this encounter
--- OUTSIDE RECORDS SUMMARY | 2024-09-03 19:38 | XMS_ITS | Encounter Summary ---
Author Organization [facility] Healthcare Address [address] [place] [address] Care Team Providers Care Business Dean Name Role Phone Unavailable Primary Care Provider Unavailabl e Encounter Details Date Type Department Care Team ([facility] st Contact Info) Description 06/09/2021 10:30 AM CDT Lab [facility] Lab [address] [place] [address] Seasonal allergic rhinitis due to pollen Social History Tobacco Use Types Packs/Day Years [...] on file 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 BEAN SORTER Gender Identity Female 03/27/2020 5:01 PM CDT Sexual Orientation Lesbian 03/27/2020 5: 01 PM CDT documented as of this encounter Plan of Treatment Not on file documented as of this encounter Visit Diagnoses Diagnosis Seasonal allergic rhinitis due to pollen documented in this encounter
--- OUTSIDE RECORDS SUMMARY | 2024-09-03 19:38 | XMS_ITS | Encounter Summary ---
Author Organization [facility] Healthcare Address [address] [place] [address] Care Team Providers Care Legal Receptionist Name Role Phone Angeles Hernandez MD Unavailable [phone] Reason for Visit * Reason Comments PT Initial Eval * Consultation (Routine) - Closed Specialty Diagnoses / Procedures Referred By Contac t Referred To Contact Physical Therapy Diagnoses Lumbar spondylosis Thoracic spine pain Cervical spine pain Kp Guzman PA Phone: tel: fax: [facility] OP Physical Therapy [address] [place] [address] Phone: tel: fax: Referral ID Status Reason Start Date Expiration Date V isits Requested Visits Authorized [id number] Closed Specialty Services Required 07/07/2021 08/06/2022 24 24 Encounter Details Date Type Department Care Team (Late Contact Info) Description 07/21/2021 9:45 AM MANAGER STRATEGY & ACCOUNT Therapy [facility] OP Physical Therapy [address] [place] [address] Berna Kay PT Lumbar spondylosis; Thoracic spine pain; Cervical spine pain Social History Tobacco Use Types Packs/Day [...] file 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 MANAGER STRATEGY & ACCOUNT Gender Identity Female 03/27/2020 5:01 PM CDT Sexual Orientation Lesbian 03/27/2020 5: 01 PM CDT documented as of this encounter Progress Notes * Berna Kay, PT - 07/21/2021 9:45 AM CST Images from the original note were not included. PT Initial Evaluation 07/21/2021 Chrissy Kilgore 1970 51 y.o. female KP GUZMAN. ICD-9-CM ICD-10-CM 1. Lumbar spondylosis 721.3 M47.816 Ambulatory referral order to Physical Therapy - order p.t. 2. Thoracic spine pain 724.1 M54.6 Ambulatory referral order to Physical Therapy - p.t. 3. Cervical spine pain 723.1 M54.2 Ambulatory referral order to Physical Therapy - order p.t. Past Medical History: Diagnosis Date ??? Asthma ??? Brain concussion 5022568 ??? Cataract 3421581 ??? Depression 4725008 ??? Epiretinal membrane (ERM), bilateral ??? GERD (gastroesophageal reflux disease) ??? Hypertension ??? Irritable bowel syndrome ??? Kidney stone 346915 ??? Menstrual problem 775555 ??? Migraines 288923 ??? Peptic ulceration 0101?? 1 Past Surgical History: Procedure Laterality Date ??? APPENDECTOMY ??? BREAST SURGERY ??? CATARACT EXTRACTION 642680 ??? CHOLECYSTECTOMY 931292 ??? COLON SURGERY 893955 ??? GALLBLADDER SURGERY ??? OVARY SURGERY ??? SMALL INTESTINE SURGERY 0101?? 1 Precautions: none Subjective: Patient c/o worst pain between sh blades and into neck , Low back pain and right hip. 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 Diagnostic Tests: MRI low back in epic Previous Treatment: not in 2 yrs -- chiropractor and PT visits, cortisone : neck , right hip and right sh Symptoms Pt reports neck: constant at base of head, Pain into neck and between sh blades : now: 11/29, SAAB: itt 10/01 and could get up to 05/31 C/o dowager's hump developing Thoracics: now: 12/29-- burning constant , radiates to sh blade right> left , best: 10/01. Low back: now : 10/29, Difficulty sleeping on right side , Inc pain w/sleeping and sweeping/mopping , worst: 03/31 ---- pinching feeling and hip pain right Dec pain : sitting , antiinflammatories , mm relaxers, tramadol , heat , ice , better up moving around Function Current Functional Deficits: sweeping, standing , walking, bending , right arm OH, lifting OH Prior Level of Function: Independent with activities of daily living including household and community activities, driving, and all work-related responsibilities. 2 yrs ago : more indep Occupation: unemployed Lives in: condo , w/stairs -- can manage Lives with: significant other and daughter Objective: Posture: head upright, neck straight, large dowager's, basilio rded sh -- mod tension, scapula elevatedand abducted NECK: arom: WFL all motions with pain : left sidebending and left rotation ---- tight basilio rotations Palpation: pain w/gr 2 pressure : right side occiput from post to laterally, right neck and upper thoracics to T8, right AC joint and SS mm THORACIC: Palpation: pain w/gr 2 pressure : T10 right side to low back paraspinals Swelling along the lower thoracics into lumbar on the left paraspinals LOW BACK: Palpation: Pain w/gr 2 pressure : basilio low back paraspinals , into right upper buttock to right hip trunk arom : flex to ankles, no low back flexion in lumbars , using arms to come back to standing, Ext: 30%, sidebending: left and right : 25% , rotation : left 45% , right 50% Assessment: Patient requires additional skilled therapy services for Patient may benefit from further skilled OP PT to address the following deficits: pain , swelling, dec arom , dec adl's and iadl's , and poor posture and for return to prior level of function. Rehab potential: good Short-Term Goals: to be met by 07/19/21 1. Patient will be instructed in HEP 2. Patient will show overall dec pain by 50% 3. Patient will inc arom neck and trunk by 25% w/o inc pain Long-Term Goals: to be met by 10/13/21 1. Patient will be independent in HEP (new and revised). 2. Patient will show improved adl's and iadl's 3. Patient will show inc arom neck and trunk by 50% Patient Goal: get mm spasms under control to be able to go back to chiropractor Plan: Patient will benefit from skilled therapy services 2 times per week for 12 weeks. Treatment may include: therapeutic exercise, manual therapy and modalities as needed. Patient educated and acknowledged understanding of therapy diagnosis, prognosis, pain relief instructions, precautions, risks, benefits and agree with the treatment plan and goals. Patient will be discharged from therapy upon completion of goals, physician order, or when therapist determines patient is appropriate for discharge from skilled therapy services. Berna Kay, PT [facility] If you are unable to electronically sign this document, please sign below to certify this plan of care/treatment plan. Thank you. Provider Signature: Date: GER STRATEGY & ACCOUNT * Berna Kay, PT - 07/21/2021 9:45 AM CST ICD-9-CM ICD-10-CM 1. Lumbar spondylosis 721.3 M47.816 Ambulatory referral order to Physical Therapy - order p.t. 2. Thoracic spine pain 724.1 M54.6 Ambulatory referral order to Physical Therapy - p.t. 3. Cervical spine pain 723.1 M54.2 Ambulatory referral order to Physical Therapy - order KP Mata Precautions: none PT Eval Date: 07/21/21 Orders : 10/13/21 Cert Expires: 10/13/21 Progress Note Due: 08/18/21 Neck, thoracic and low back --- patient priority is LBP Date Date Date Date Date 07/21/21 Visit Number 1 Exercises/Treatment Needs hep; Did chin tucks 2x Add: cervical arom w/o pain trunk motions in sitting nustep w/arms Incline board Parallel bars : core and l/ext sidestepping Hip abd/ext marching Heel raises Partial squats Gait around track Sit to stand --posture DIATHERMY 8-8 15 min neck and low back Left side 15 min Progress Note/Re-Cert Goals: Short-Term Goals: to be met by 07/19/21 1. Patient will be instructed in HEP 2. Patient will show overall dec pain by 50% 3. Patient will inc arom neck and trunk by 25% w/o inc pain Long-Term Goals: to be met by 10/13/21 1. Patient will be independent in HEP (new and revised). 2. Patient will show improved adl's and iadl's 3. Patient will show inc arom neck and trunk by 50% Patient Goal: get mm spasms under control to be able to go back to chiropractor GER STRATEGY & ACCOUNT documented in this encounter Plan of Treatment Not on file documented as of this encounter Visit Diagnoses Diagnosis Lumbar spondylosis Lumbosacral spondylosis without myelopathy Thoracic spine pain Pain in thoracic spine Cervical spine pain documented in this encounter Orders Outpatient Referral Count Last Ordered Date Fir st Ordered Date AMB REFERRAL ORDER TO PHYSICAL THERAPY 1 documented in this encounter Care Teams Legal Receptionist Relationship Specialty Start Date End Date Angeles Hernandez MD [address] [place] [address] Referring Physician Gynecology 07/21/21 documented as of this encounter
--- OUTSIDE RECORDS SUMMARY | 2024-09-03 19:38 | XMS_ITS | Encounter Summary ---
Author Organization [facility] Healthcare Address [address] [place] [address] Care Team Providers Care Scrap Drop Operator Name Role Phone Angeles Hernandez MD Unavailable [phone] Reason for Visit * Reason Onset Date Comments Sleep study results 09/14/2021 Encounter Details Date Type Department Care Team ([facility] st Contact Info) Description 09/14/2021 Telephone [facility] Lab [address] [place] [address] Teddy Amos MD [address] [facility] [address] [address] Sleep study results Social History Tobacco Use Types Packs/Day [...] on file 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 TOE STRIPPER Gender Identity Female 03/27/2020 5:01 PM CDT Sexual Orientation Lesbian 03/27/2020 5: 01 PM CDT documented as of this encounter Miscellaneous Notes * Telephone Encounter - Susan Leal - 09/14/2021 11:19 AM CST Called patient to go over Home sleep study results. AHI 5.3. L/M to order auto cpap or to talk with doctor about her options. STRIPPER documented in this encounter Plan of Treatment Not on file documented as of this encounter Visit Diagnoses Not on filedocumented in this encounter Care Teams Scrap Drop Operator Relationship Specialty Start Date End Date Angeles Hernandez MD [address] [id number] Referring Physician Gynecology 07/21/21 documented as of this encounter
--- OUTSIDE RECORDS SUMMARY | 2024-09-03 19:38 | XMS_ITS | Encounter Summary ---
Author Organization [facility] Address [address] [facility] [address] [place] [address] Care Team Providers Care Flight Operations Coordinator Name Role Phone Unavailable Primary Care Provider Unavailabl e Encounter Details Date Type Department Care Team (Late st Contact Info) Description 06/18/2021 Orders Only [facility] Health Information Management [address] [place] [address] Brijesh Lynch MD [address] [place] [id number] Social History Tobacco Use Types Packs/Day Years [...] on file 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 YARN PACKER Gender Identity Female 03/27/2020 5:01 PM CDT Sexual Orientation Lesbian 03/27/2020 5: 01 PM CDT documented as of this encounter Plan of Treatment Not on file documented as of this encounter Procedures Procedure Name Priority Date/Time Associated Diagnosis Comments SCAN - RADIOLOGY/IMAGING 06/18/2021 documented in this encounter Results * SCAN - RADIOLOGY/IMAGING (06/18/2021) Anatomical Region Laterality Modality Other us Brijesh Lynch MD Final Result documented in this encounter Visit Diagnoses Not on filedocumented in this encounter
--- OUTSIDE RECORDS SUMMARY | 2024-09-03 19:38 | XMS_ITS | Encounter Summary ---
Author Organization [facility] Address [address] [facility] [address] [place] [address] Care Team Providers Care Manager Fine Dining Name Role Phone Angeles Hernandez MD Unavailable Reason for Visit * Reason Comments Follow-up Essentilal HTN Infection Abscess of skin of t he abdomen Sinus Problem Ear ache UTI Pt states she only f eels pressure Encounter Details Date Type Department Care Team (Late st Contact Info) Description 10/06/2021 3:00 PM SENIOR TECHNICAL PROJECT MANAGER Office Visit [facility] Medical [facility] Family Medicine [address] [place] [address] Jeff Guzman, [place] [address] [address] Sensation of pressure in bladder area (Primary Dx); Acute non-recurrent maxillary sinusitis; Essential hypertension; Hypercholesteremia; Abscess of skin of abdomen Social History Tobacco Use Types Packs/Day Years [...] on file 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 SENIOR TECHNICAL PROJECT MANAGER Gender Identity Female 03/27/2020 5:01 PM CDT Sexual Orientation Lesbian 03/27/2020 5: 01 PM CDT documented as of this encounter Last Filed Vital Signs Vital Sign Reading Time Taken Comments Blood Pressure 116/60 10/06/2021 3:59 PM SENIOR TECHNICAL PROJECT MANAGER Pulse 56 10/06/2021 3:59 PM SENIOR TECHNICAL PROJECT MANAGER Temperature 36.7 ??C (98 ??F) 10/06/2021 3:59 PM SENIOR TECHNICAL PROJECT MANAGER Respiratory Rate 18 10/06/2021 3:59 PM SENIOR TECHNICAL PROJECT MANAGER Oxygen Saturation 98% 10/06/2021 3:59 PM SENIOR TECHNICAL PROJECT MANAGER Inhaled Oxygen Concentration - - Weight 85.9 kg (189 lb 6.4 oz) 10/06/2021 3:59 P M SENIOR TECHNICAL PROJECT MANAGER Height 167.6 cm (5' 6 ) 10/06/2021 3:59 PM SENIOR TECHNICAL PROJECT MANAGER Body Mass Index 30.57 10/06/2021 3:59 PM SENIOR TECHNICAL PROJECT MANAGER documented in this encounter Ordered Prescriptions Prescription Sig Dispense Quantity Refills Last Filled Start Date End Date azithromycin (ZITHROMAX) 250 mg tabletIndications:A cute non-recurrent maxillary sinusitis Take 2 tabs (500 mg) by mouth today, than 1 daily for 4 days. 6 tablet 10/06/2021 10/11/2021 documented in this encounter Progress Notes * Jeff Guzman PA - 10/06/2021 3:00 PM CST Images from the original note were not included. Subjective/Objective Patient ID: Chrissy Kilgore is a 51 y.o. female. Chief Complaint Follow-up (Essentilal HTN), Infection (Abscess of skin of the abdomen), Sinus Problem (Ear ache), and UTI (Pt states she only feels pressure) HPI Patient is here to follow-up on UTI. She states no urinary symptoms at this point urine dip was negative. Patient has had a recent abscess of the abdomen which came back positive for Staph she was put on clindamycin which she has sensitivity to. The patient still physically straining some pustular exudate. The redness and pain as resided. Patient is having sinus congestion ear pain. She is havingno fever chills no shortness of breath no loss of taste or smell. She does have chronic allergies but feels like she has been compliant with her medicine for allergies is not improving. Review of Systems Constitutional: Negative for fatigue, fever and unexpected weight change. HENT: Positive for ear pain (pressure). Negative for congestion, hearing loss, rhinorrhea and voicechange. Eyes: Negative for discharge, redness and visual disturbance. Respiratory: Negative for cough, chest tightness and shortness of breath. Cardiovascular: Negative for chest pain, palpitations and leg swelling. Gastrointestinal: Negative for abdominal pain, blood in stool, constipation, diarrhea and nausea. Infection of the lower abdomen Endocrine: Negative for polydipsia and polyuria. Genitourinary: Positive for frequency. Negative for dysuria. Skin: Negative for color change and rash. Neurological: Negative for dizziness, tremors and headaches. Hematological: Does not bruise/bleed easily. Psychiatric/Behavioral: Negative for confusion and dysphoric mood. Blood pressure 116/60, pulse 56, temperature 36.7 ??C (98 ??F), temperature source Oral, resp. rate18, height 167.6 cm (5' 6 ), weight 85.9 kg (189 lb 6.4 oz), SpO2 98 %. Physical [...] Diagnoses and all orders for this visit: Sensation of pressure in bladder area (R39.89) (Primary) - POCT urinalysis dipstick Acute non-recurrent maxillary sinusitis (J01.00) Comments: start zpak Orders: - azithromycin (ZITHROMAX) 250 mg tablet; Take 2 tabs (500 mg) by mouth today, than 1 daily for 4 days. Essential hypertension (I10) Assessment & Plan: Chronic condition well-controlled stable but off metoprolol due to sinus bradycardia. She is currently on Holter monitor being followed by Cardiology. Hypercholesteremia (E78.00) Assessment & Plan: Chronic condition at goal rosuvastatin has made significant reduction in LDL will continue with current regimen CK is normal. AST ALT no nd normal Abscess of skin of abdomen (L02.211) Comments: Continue topical dressings as healing well at this point CANDE Du OR TECHNICAL PROJECT MANAGER documented in this encounter Miscellaneous Notes * Assessment & Plan Note - Jeff Guzman PA - 10/06/2021 4:52 PM CSTAssociated Problem(s): Hypercholesteremia Chronic condition at goal rosuvastatin has made significant reduction in LDL will continue with current regimen CK is normal. AST ALT no nd normal OR TECHNICAL PROJECT MANAGER * Assessment & Plan Note - Jeff Guzman PA - 10/06/2021 4:49 PM CSTAssociated Problem(s): Essential hypertension Chronic condition well-controlled stable but off metoprolol due to sinus bradycardia. She is currently on Holter monitor being followed by Cardiology. OR TECHNICAL PROJECT MANAGER documented in this encounter Plan of Treatment Not on file documented as of this encounter Procedures Procedure Name Priority Date/Time Associated Diagnosis Comments POCT URINALYSIS DIPSTICK Routine 10/06/2021 4:15 PM SENIOR TECHNICAL PROJECT MANAGER Sensation of pressure in bladder area documented in this encounter Results * POCT urinalysis dipstick (10/06/2021 4:15 PM SENIOR TECHNICAL PROJECT MANAGER) Color, Urine, POC Yellow Clarity, ur, POC Clear Clear Glucose, ur, POC Negative Negative mg/dL Bilirubin, ur, POC Negative Negative, Small, Moderate, Large Ketones, ur, POC Negative Negative Specific [place], POC 1.020 1.005 - 1.030 Blood, ur, POC Negative Negative pH, ur, POC 6.0 5.0 - 8.0 Protein, ur, POC Negative Negative Urobilinogen, urine, POC 0.6 0.2 - 1.0 mg/dL Nitrite, ur, POC Negative Negative Leukocytes, ur, POC Negative Negative Lot Number [id number] Urine 10/06/2021 4:15 PM SENIOR TECHNICAL PROJECT MANAGER Jeff CASTELLON POINT OF CARE TEST ORDERABLES F inal Result documented in this encounter Visit Diagnoses Diagnosis Sensation of pressure in bladder area- Primary Acute non-recurrent maxillary sinusitis Essential hypertension Unspecified essential hypertension Hypercholesteremia Pure hypercholesterolemia Abscess of skin of abdomen documented in this encounter Historical Medications * This list may reflect changes made after this encounter. isosorbide-hydrAL AZINE (BIDIL) 20-37.5 mg per tabletIndications :chronic heart failure Take 1 tablet by mouth 3 (three) times a day 05/11/2022 added in this encounter Care Teams Manager Fine Dining Relationship Specialty Start Date End Date Angeles Hernandez MD [address] [address] Referring Physician Gynecology 07/21/21 documented as of this encounter
--- OUTSIDE RECORDS SUMMARY | 2024-09-03 19:38 | XMS_ITS | Encounter Summary ---
Author Organization [facility] Healthcare Address [address] [place] [address] Care Team Providers Care Bale Piler Name Role Phone Angeles Hernandez MD Unavailable Reason for Visit * Reason Onset Date Comments No Show 08/07/2021 Encounter Details Date Type Department Care Team (Late st Contact Info) Description 08/07/2021 Documentation [facility] OP Physical Therapy [facility] [address] [address] Genny Masters, PLATE HANGER No Show Social History Tobacco Use Types Packs/Day Years [...] on file 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 PRINCIPAL EMBEDDED SOFTWARE ENGINEER Gender Identity Female 03/27/2020 5:01 PM CDT Sexual Orientation Lesbian 03/27/2020 5: 01 PM CDT documented as of this encounter Progress Notes * Genny Masters, PLATE HANGER - 08/07/2021 5:35 PM CST Attempted to call patient and leave a message but she did not have her mailbox set up. CIPAL EMBEDDED SOFTWARE ENGINEER documented in this encounter Plan of Treatment Not on file documented as of this encounter Visit Diagnoses Not on filedocumented in this encounter Care Teams Bale Piler Relationship Specialty Start Date End Date Angeles Hernandez MD [address] [address] Referring Physician Gynecology 07/21/21 documented as of this encounter
--- OUTSIDE RECORDS SUMMARY | 2024-09-03 19:38 | XMS_ITS | Encounter Summary ---
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 Gender Identity Female 03/27/2020 5:01 PM CDT Sexual Orientation Lesbian 03/27/2020 5: 01 PM CDT documented as of this encounter Plan of Treatment Not on file documented as of this encounter Procedures Procedure Name Priority Date/Time Associated Diagnosis Comments LIPID PANEL Routine 05/28/2021 8:44 AM CDT Hypercholesteremia URINALYSIS AND REFLEX TO MICROSCOPIC AND CULTURE Routine 05/28/2021 8:41 AM CDT Dysuria documented in this encounter Results * (ABNORMAL) Lipid panel (05/28/2021 8:44 AM CDT) [facility] Signature Cholesterol 294(H) 30 - 199 mg/dL [facility] VILL[facility] Comment: Interpretive Data Ages < or = 19 years ??Acceptable: ? <170 mg/dL ??Borderline high: ??170-199 mg/dL ??High: ? >or= 200 mg/dL Ages > or = 20 years ??Desirable: ?<200 mg/dL ??Borderline high: ??200-239 mg/dL ??High: ? >or= 240 mg/dL Literature References: 1. Expert Panel on Integrated Guidelines for Cardiovascular Health and Risk Reduction in Children and Adolescents. Pediatrics 2011;128:S213 2. NCEP Expert Panel. Circulation 2004;110:227 Current Interpretive Data was last revised on 2018. Triglycerides 214(H) <=149 mg/dL [facility] VILLATORO Comment: Interpretive Data Ages < or = 9 years ??Acceptable: ? <75 mg/dL ??Borderline high: ??75-99 mg/dL ??High: ? >or= 100 mg/dL Ages 10 to 20 years ??Acceptable: ? <90 mg/dL ??Borderline high: ??90-129 mg/dL ??High: ? >or= 130 mg/dL Ages > or = 20 years ??Desirable: ?<150 mg/dL ??Borderline high: ??150-199 mg/dL ??High: ? 200-499 mg/dL ?Very high: ?? >or= 499 mg/dL Literature References: 1. Expert Panel on Integrated Guidelines for Cardiovascular Health and Risk Reduction in Children and Adolescents. Pediatrics 2011;128:S213 2. NCEP Expert Panel. Circulation 2004;110:227 Current Interpretive Data was last revised on 2018. HDL 72 >=40 mg/dL [facility] VILLATORO Comment: Interpretive Data Ages < or = 19 years ??Acceptable: ? >45 mg/dL ??Borderline low: ?? 40-45 mg/dL ??Low: ? <40 mg/dL Ages > or = 20 years ??Desirable: ?>or= 60 mg/dL ??Low: ? <40 mg/dL Literature References: 1. Expert Panel on Integrated Guidelines for Cardiovascular Health and Risk Reduction in Children and Adolescents. Pediatrics 2011;128:S213 2. NCEP Expert Panel. Circulation 2004;110:227 Current Interpretive Data was last revised on 2018. LDL, calculated 179(H) <=129 mg/dL [facility] Comment: Interpretive Data Ages < or = 19 years ??Acceptable: ? <110 mg/dL ??Borderline high: ??110-129 mg/dL ??High: ?>or= 130 mg/dL Ages > or = 20 years ??Optimal: ? <100 mg/dL ??Near optimal: ?100-129 mg/dL ??Borderline high: ?? 130-159 mg/dL ??High: ?>160 mg/dL Literature References: 1. Expert Panel on Integrated Guidelines for Cardiovascular Health and Risk Reduction in Children and Adolescents. Pediatrics 2011;128:S213 2. NCEP Expert Panel. Circulation 2004;110:227 Current Interpretive Data was last revised on 2018. Non-HDL Cholesterol 222 mg/dL [facility] Comment: Interpretive Data Ages < or = 19 years ??Acceptable: ?<120 mg/dL ??Borderline high: ??120-144 mg/dL ??High: ?>145 mg/dL Ages > or = 20 years ??When triglycerides are >200 mg/dL, Non-HDL cholesterol is a secondary target of ? therapy with treatment goals that are 30 mg/dL greater than the LDL cholesterol target. ? Literature References: 1. Expert Panel on Integrated Guidelines for Cardiovascular Health and Risk Reduction in Children and Adolescents. Pediatrics 2011;128:S213 2. NCEP Expert Panel. Circulation 2004;110:227 Current Interpretive Data was last revised on 2018. Chol/HDL ratio 4 [facility] Blood 05/28/2021 8:44 AM CDT 05/28/2021 9:30 AM CDT us Jeff CASTELLON LAB BLOOD ORDERABLES Final Resu lt Performing Organization Address [facility] Co de Phone Number [facility] [address] [facility] Department [place] [address] * Urinalysis reflex to microscopic and culture Urine, clean voided (05/28/2021 8:41 AM CDT) Color, ur Yellow Yellow [facility] Clarity, ur Clear Clear [facility] Specific gravity, ur 1.028 1.003 - 1.030 [facility] pH, urine 5.0 [facility] Protein, ur ql Negative Negative [facility] Glucose, ur ql Negative Negative [facility] Ketones, ur Negative Negative [facility] Bilirubin, ur Negative Negative [facility] Blood, ur Negative Negative [facility] Urobilinogen, ur <2.0 <2.0 mg/dL [facility] Nitrite, ur Negative Negative [facility] Leukocyte esterase, ur Negative Negative [facility] UA reflex comment Reflex conditions for microscopic UA and culture not met. [facility] Urine, clean voided 05/28/2021 8:41 AM CDT 05/28/2021 8:55 AM CDT Narrative [facility] - 05/28/2021 9:04 AM CDT Urine Collection Method->Clean Catch Urine pH is affected by diet, medications, systemic acid-base disturbances, and renal tubular function. ??pH may affect urinary stone formation. ??For example, urine pH below 6.0 may help reduce the tendency for calcium phosphate stones and pH greater than 6.0 may reduce the tendency for uric acid stone formation. Source: [employer]. Last revised 09-01-2017 us Jeff CASTELLON LAB MICROBIOLOGY - GENERAL ORDE ZECHARIAH Final Result Performing Organization Address [facility]/State/[facility] Co de Phone Number [facility] [address] [facility] Department [place] [address] documented in this encounter Visit Diagnoses Diagnosis Hypercholesteremia Pure hypercholesterolemia Dysuria documented in this encounter
--- OUTSIDE RECORDS SUMMARY | 2024-09-03 19:38 | XMS_ITS | Encounter Summary ---
Author Organization [facility] Address [address] [facility] [address] [place] [address] Care Team Providers Care Traffic Clerk Name Role Phone Unavailable Primary Care Provider Unavailabl e Reason for Visit * Reason Onset Date Comments peer to peer mri brain wo contrast 06/03/2021 Encounter Details Date Type Department Care Team ([facility] Contact Info) Description 06/03/2021 Telephone [facility] Medical [facility] Family Medicine [address] [place] [address] Jeff Guzman, CANDE [address] [address] peer to peer mri brain wo contrast Social History Tobacco Use Types Packs/Day Years [...] on file 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 REFERENCE# [id number] PT. ID# [id number] INS. LENGTHY DENIAL IN Epic documented in this encounter Plan of Treatment Not on file documented as of this encounter Visit Diagnoses Not on filedocumented in this encounter
--- OUTSIDE RECORDS SUMMARY | 2024-09-03 19:38 | XMS_ITS | Encounter Summary ---
Author Organization [facility] Address [address] [address] Care Team Providers Care Student Teaching Coordinator Name Role Phone Angeles Hernandez MD Unavailable [phone] Reason for Referral * Consultation (Routine) - Closed Specialty Diagnoses / Procedures Referred By Contact Referred To Contact Sleep Medicine / Pulmonology Diagnoses Snoring Abnormal leg movement Jeff Guzman PA Phone: tel: fax: [facility] Pul[facility]ology [facility] [address] [address] Phone: tel: fax: Referral ID Status Reason Start Date Expiration Date V isits Requested Visits Authorized [id number] Closed Specialty Services Required 07/07/2021 08/06/2022 1 1 Question Answer Please select the performing region: [facility] Medical [facility] [[id number]] Please select the performing department: [facility] [[id number]] # of visits: 1 CTOR CASE * Consultation (Routine) - Closed Specialty Diagnoses / Procedures Referred By Contac t Referred To Contact Physical Therapy Diagnoses Lumbar spondylosis Thoracic spine pain Cervical spine pain Jeff Guzman PA Phone: tel: fax: [facility] OP Physical Therapy [address] [address] Phone: tel: fax: Referral ID Status Reason Start Date Expiration Date V isits Requested Visits Authorized [id number] Closed Specialty Services Required 07/07/2021 08/06/2022 24 24 Question Answer PTRFR PT Evaluate and Treat Therapy options discussed with patient? Yes Location provided for therapy services is: Patient requested/Patient preferred Please select the performing region: [facility] [[id number]] Please select the performing department: [facility] [[id number]] # of visits: 24 Comments 2-3 times per week times 6 weeks CTOR CASE Reason for Visit * Reason Comments Hypertension Encounter Details Date Type Department Care Team (Late st Contact Info) Description 07/07/2021 9:15 AM DIRECTOR CASE Office Visit [facility] Family Medicine [address] [place] [address] Jeff Guzman PA [address] [address] Benign essential HTN (Primary Dx); Hypercholesteremia; Lumbar spondylosis; Thoracic spine pain; Cervical spine pain; Snoring; Abnormal leg movement Social History Tobacco Use Types Packs/Day Years [...] on file 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 Gender Identity Female 03/27/2020 5:01 PM CDT Sexual Orientation Lesbian 03/27/2020 5: 01 PM CDT documented as of this encounter Last Filed Vital Signs Vital Sign Reading Time Taken Comments Blood Pressure 122/80 07/07/2021 9:38 AM DIRECTOR CASE Pulse 66 07/07/2021 9:38 AM DIRECTOR CASE Temperature - - Respiratory Rate 16 07/07/2021 9:38 AM DIRECTOR CASE Oxygen Saturation - - Inhaled Oxygen Concentration - - Weight 88.5 kg (195 lb) 07/07/2021 9:38 AM DIRECTOR CASE Height 167.6 cm (5' 6 ) 07/07/2021 9:38 AM DIRECTOR CASE Body Mass Index 31.47 07/07/2021 9:38 AM DIRECTOR CASE documented in this encounter Ordered Prescriptions Prescription Sig Dispense Quantity Refills Last Filled Start Date End Date rosuvastatin (CRESTOR) 5 mg tabletIndications: Hypercholesteremia Take 1 tablet (5 mg total) by mouth daily 30 tablet 2 07/07/2021 10/12/2021 documented in this encounter Progress Notes * Jeff Guzman PA - 07/07/2021 9:15 AM CST Images from the original note were not included. Subjective/Objective Patient ID: Chrissy Kilgore is a 51 y.o. female. Chief Complaint Hypertension HPI Patient is here to follow-up on hypertension. She has been tolerating metoprolol well without any side effects. She has noticed reduction in the left-sided chest and neck pain with using the metoprolol. She is having no other side effects at this time. Patient does have concerns with snoring. She states her partner states that she snores significantly she has been kicking fairly intensely at night. She does have daytime symptoms were she feels ear irritated legs feel like she needs to get up and walk. Patient still has complaints of fatigue. Review of Systems Constitutional: Negative for fatigue, fever and unexpected weight change. HENT: Negative for congestion, ear pain, hearing loss, rhinorrhea and voice change. Eyes: Negative for discharge, redness and visual disturbance. Respiratory: Negative for cough, chest tightness and shortness of breath. Cardiovascular: Negative for chest pain, palpitations and leg swelling. BP still running high Gastrointestinal: Negative for abdominal pain, blood in stool, constipation, diarrhea and nausea. Endocrine: Negative for polydipsia and polyuria. Genitourinary: Negative for dysuria and frequency. Skin: Negative for color change and rash. Neurological: Negative for dizziness, tremors and headaches. Hematological: Does not bruise/bleed easily. Psychiatric/Behavioral: Negative for confusion and dysphoric mood. Blood pressure 122/80, pulse 66, resp. rate 16, height 167.6 cm (5' 6 ), weight 88.5 kg (195 lb). Physical Exam Vitals reviewed. Constitutional: General: She [...] abdominal tenderness. Musculoskeletal: Cervical back: Neck supple. Spasms and tenderness present. Thoracic back: Spasms and tenderness present. Lumbar back: Tenderness present. Comments: ROM appropriate Skin: General: Skin is warm and dry. Capillary Refill: Capillary refill takes less than 2 seconds. Neurological: Mental Status: She is alert and oriented to person, place, and time. Psychiatric: Behavior: Behavior normal. Assessment/Plan Diagnoses and all orders for this visit: Benign essential HTN (I10) (Primary) Assessment & Plan: Chronic condition improved control with metoprolol will continue with dosing at this time as her blood pressure is good at goal today. I got 118/78 after rechecking in the office. Hypercholesteremia (E78.00) Assessment & Plan: Chronic condition Start crestro 5mg Repeat lft ck and lipid panel in 3mo Orders: - rosuvastatin (CRESTOR) 5 mg tablet; Take 1 tablet (5 mg total) by mouth daily - Hepatic function panel; Future - Creatine kinase (CK), total; Future - Lipid panel; Future Lumbar spondylosis (M47.816) Comments: order p.t. Orders: - Ambulatory referral order to Physical Therapy -; Future Thoracic spine pain (M54.6) Comments: p.t. Orders: - Ambulatory referral order to Physical Therapy -; Future Cervical spine pain (M54.2) Comments: order p.t. Orders: - Ambulatory referral order to Physical Therapy -; Future Snoring (R06.83) Comments: refer to sleep medicine Orders: - Ambulatory referral to Sleep Medicine; Future Abnormal leg movement (G25.9) Comments: refer to sleep medicine Orders: - Ambulatory referral to Sleep Medicine; Future CANDE Du CTOR CASE documented in this encounter Miscellaneous Notes * Assessment & Plan Note - Jeff Guzman PA - 07/07/2021 10:28 AM DIRECTOR CASE Associated Problem(s): Essential hypertension Chronic condition improved control with metoprolol will continue with dosing at this time as her blood pressure is good at goal today. I got 118/78 after rechecking in the office. CTOR CASE * Assessment & Plan Note - Jeff Guzman PA - 07/07/2021 10:16 AM DIRECTOR CASE Associated Problem(s): Hypercholesteremia Chronic condition Start crestro 5mg Repeat lft ck and lipid panel in 3mo CTOR CASE * Addendum Note - Pari Noyola - 07/07/2021 9:15 AM CSTAddended by: PARI NOYOLA on: 09/28/2021 11:03 AM Modules accepted: Orders CTOR CASE * Addendum Note - Gisell Worthy - 07/07/2021 9:15 AM CSTAddended by: GISELL WORTHY on: 10/06/2021 09:57 AM Modules accepted: Orders CTOR CASE documented in this encounter Plan of Treatment Scheduled Referrals Name Type Priority Associated Diagnoses Order Schedule Ambulatory referral order to Physical Therapy - Outpatient Referral Routine Lumbar spondylosis Thoracic spine pain Cervical spine pain Expected: 07/21/2021 (Approximate), Expires: 07/07/2022 Ambulatory referral to Sleep Medicine Outpatient Referral Routine Snoring Abnormal leg movement 1 Occurrences starting 07/07/2021 until 01/04/2022 documented as of this encounter Results * (ABNORMAL) Hepatic function panel (10/06/2021 10:04 AM DIRECTOR CASE) [facility] Bilirubin, total 0.4 0.1 - 1.2 mg/dL [facility] Comment:Testing performed by : [address] [address] Bilirubin, direct <0.2 0.1 - 0.3 mg/dL [facility] Comment:Testing performed by : [address] [address] Protein, pl 7.3 6.5 - 8.5 g/dL [facility] Comment:Testing performed by : [address] [address] Albumin 4.2 3.5 - 5.0 g/dL [facility] Comment:Testing performed by : [address] [address] Alk phos 160(H) 40 - 130 Units/L [facility] Comment:Testing performed by : [address] [address] ALT 33 7 - 45 Units/L [facility] Comment:Testing performed by : [address] [address] AST 23 10 - 45 Units/L [facility] Comment:Testing performed by : [address], [address] Blood 10/06/2021 10:0 4 AM DIRECTOR CASE 10/06/2021 10:41 AM DIRECTOR CASE us Jeff CASTELLON LAB BLOOD ORDERABLES Final Resu lt [facility] VILLATORO [address] [facility] Department of Laboratories [place], [place] [id number] * Creatine kinase (CK), total (10/06/2021 10:04 AM DIRECTOR CASE) [facility] CK 46 30 - 200 Units/L [facility] VILLATORO Comment:Testing performed by : [facility], [address] [place] [address]., [address] Blood 10/06/2021 10:0 4 AM DIRECTOR CASE 10/06/2021 10:41 AM DIRECTOR CASE us Jeff CASTELLON LAB BLOOD ORDERABLES Final Resu lt Performing Organization Address City/State/[facility] Co de Phone Number [facility] [address] [facility] Department [place] [address] * Lipid panel (10/06/2021 10:04 AM DIRECTOR CASE) Pathologist [facility] Cholesterol 198 30 - 199 mg/dL [facility] VILLATORO Comment: [...] Interpretive Data was last revised on 2018. Testing performed by: [facility], [address] [place] [address]., [address] Triglycerides 110 <=149 mg/dL [facility] VILLATORO Comment: Interpretive Data [...] Interpretive Data was last revised on 2018. Testing performed by: [facility], [address] [place] [address]., [address] HDL 95 >=40 mg/dL [facility] Comment: Interpretive Data Ages < [...] Interpretive Data was last revised on 2018. Testing performed by: [address] [address] LDL, calculated 81 <=129 mg/dL [facility] Comment: Interpretive Data Ages [...] Interpretive Data was last revised on 2018. Testing performed by: [address] [address] Non-HDL Cholesterol 103 mg/dL [facility] Comment: Interpretive Data Ages < [...] Interpretive Data was last revised on 2018. Testing performed by: [address] [address] Chol/HDL ratio 2 [facility] Comment:Testing performed by : [address] [address] Blood 10/06/2021 10:0 4 AM DIRECTOR CASE 10/06/2021 10:41 AM DIRECTOR CASE us Jeff CASTELLON LAB BLOOD ORDERABLES Final Resu lt [facility] [address] [facility] Department [place] [address] documented in this encounter Visit Diagnoses Diagnosis Benign essential HTN- Primary Hypercholesteremia Pure hypercholesterolemia Lumbar spondylosis Lumbosacral spondylosis without myelopathy Thoracic spine pain Pain in thoracic spine Cervical spine pain Snoring Other dyspnea and respiratory abnormality Abnormal leg movement documented in this encounter Discontinued Medications Medication Sig Discontinue Reason Start Date End Da te nystatin 100,000 unit/mL suspension Take 5 mL (500,000 Units total) by mouth 4 (four) times a day Swish in mouth and spit out. Therapy completed 06/23/2021 07/07/2021 predniSONE (DELTASONE) 10 mg tabletIndications:Drug eruption 60mg times 3 days, 40mg times 3 days, 20mg times 3 days, 10mg times 3 days Therapy completed 06/09/2021 07/07/2021 documented as of this encounter Care Teams Student Teaching Coordinator Relationship Specialty Start Date End Date Angeles Hernandez MD [address] [id number] Referring Physician Gynecology 07/21/21 documented as of this encounter
--- OUTSIDE RECORDS SUMMARY | 2024-09-03 19:38 | XMS_ITS | Encounter Summary ---
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 Gender Identity Female 03/27/2020 5:01 PM CDT Sexual Orientation Lesbian 03/27/2020 5: 01 PM CDT documented as of this encounter Plan of Treatment Not on file documented as of this encounter Procedures Procedure Name Priority Date/Time Associated Diagnosis Comments CARDIOLOGY DOCUMENT SCAN 06/18/2021 documented in this encounter Results * CARDIOLOGY DOCUMENT SCAN (06/18/2021) Anatomical Region Laterality Modality Other us Provider Scanning CV CARDIAC SERVICES PROCEDURES Final Result documented in this encounter Visit Diagnoses Not on filedocumented in this encounter Care Teams Cap Sizer Relationship Specialty Start Date End Date Jeff Guzman PA [address] [place] [address] PCP - General Family Medicine 06/21/22 02/17/23 Ramonita Crawford NP [address] [address] PCP - General Family Medicine 02/18/23 Angeles Hernandez MD [address] [place], [place] [id number] Referring Physician Gynecology 07/21/21 documented as of this encounter
--- OUTSIDE RECORDS SUMMARY | 2024-09-03 19:38 | XMS_ITS | Encounter Summary ---
Author Organization [facility] Medical [facility] Address [address] [facility] [address] [place] [address] Care Team Providers Care Office Helper Name Role Phone Unavailable Primary Care Provider Unavailabl e Reason for Visit * Reason Comments Headache Memory Loss Encounter Details Date Type Department Care Team (Latest Contact Info) Description 06/09/2021 8:45 AM CDT Office Visit [facility] Family Medicine [address] [place] [address] Jeff Guzman, CANDE [address] [place] [address] Hypercholesteremia (Primary Dx); Benign essential HTN; Drug eruption; Seasonal allergic rhinitis due to pollen; Chronic intractable headache, unspecified headache type; Recurrent sinusitis Social History Tobacco Use Types Packs/Day Years [...] on file 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 Gender Identity Female 03/27/2020 5:01 PM CDT Sexual Orientation Lesbian 03/27/2020 5: 01 PM CDT documented as of this encounter Last Filed Vital Signs Vital Sign Reading Time Taken Comments Blood Pressure 128/90 06/09/2021 8:41 AM CDT Pulse 72 06/09/2021 8:41 AM CDT Temperature - - Respiratory Rate 16 06/09/2021 8:41 AM CDT Oxygen Saturation - - Inhaled Oxygen Concentration - - Weight 89.2 kg (196 lb 9.6 oz) 06/09/2021 8:41 A M CDT Height 167.6 cm (5' 6 ) 06/09/2021 8:41 AM CDT Body Mass Index 31.73 06/09/2021 8:41 AM CDT documented in this encounter Ordered Prescriptions Prescription Sig Dispense Quantity Refills Last Filled Start Date End Date metoprolol XL (TOPROL-XL) 25 mg extended release tabletIndications: Benign essential HTN Take 1 tablet (25 mg total) by mouth daily 30 tablet 1 06/09/2021 08/03/2021 predniSONE (DELTASONE) 10 mg tabletIndications: Drug eruption 60mg times 3 days, 40mg times 3 days, 20mg times 3 days, 10mg times 3 days 39 tablet 06/09/2021 07/07/2021 hydrOXYzine (ATARAX) 25 mg tabletIndications: Drug eruption Take 1 tablet (25 mg total) by mouth 3 (three) times a day for 10 days 30 tablet 06/09/2021 08/12/2021 documented in this encounter Progress Notes * Jeff Guzman PA - 06/09/2021 8:45 AM CDT Images from the original note were not included. Subjective/Objective Patient ID: Chrissy Kilgore is a 51 y.o. female. Chief Complaint Headache and Memory Loss HPI Patient is here to follow-up from hyperlipidemia hypertension. She was placed on medications treating both 2 weeks ago. She was unable to tolerate atorvastatin due the significant cramping and pain in both legs. She is stop this after about 4 days. About 3 days ago she started developing a rash throughout the torso. Very pruritic now spreading to her legs and feet hands. Patient has no difficultybreathing. We were unable to get the MRI patient is having persistent headaches persistent concern of memory loss. She is having increasing allergies and sinus congestion. She has had frequent sinus infections and antibiotic usage since moving here to the [facility]. Review of Systems Constitutional: Negative for fatigue, [...] Genitourinary: Negative for dysuria and frequency. Skin: Positive for rash. Negative for color change. Neurological: Positive for headaches. Negative for dizziness and tremors. Memory Loss Hematological: Does not bruise/bleed easily. Psychiatric/Behavioral: Negative for confusion and dysphoric mood. Blood pressure 128/90, pulse 72, resp. rate 16, height 167.6 cm (5' 6 ), weight 89.2 kg (196 lb 9.6oz). Physical Exam Vitals reviewed. Constitutional: General: She [...] refill takes less than 2 seconds. Findings: Rash present. Neurological: Mental Status: She is alert and oriented to person, place, and time. Psychiatric: Behavior: Behavior normal. Assessment/Plan Diagnoses and all orders for this visit: Hypercholesteremia (E78.00) (Primary) Assessment & Plan: Chronic condition Uncontrolled Intolerant to atorvastatin / add to allergy list Benign essential HTN (I10) Assessment & Plan: D\c amlodipine/benazepril Start metoprolol xl 25mg Orders: - metoprolol XL (TOPROL-XL) 25 mg extended release tablet; Take 1 tablet (25 mg total) by mouth daily Drug eruption (L27.0) Comments: give kenolog 80mg im start pred taper start atarax 25mg tid prn for itching. Orders: - hydrOXYzine (ATARAX) 25 mg tablet; Take 1 tablet (25 mg total) by mouth 3 (three) times a day for10 days - predniSONE (DELTASONE) 10 mg tablet; 60mg times 3 days, 40mg times 3 days, 20mg times 3 days, 10mg times 3 days Seasonal allergic rhinitis due to pollen (J30.1) Comments: order allergy profile Orders: - triamcinolone (KENALOG) 40 mg/mL injection 80 mg; Inject 2 mL (80 mg total) into the muscle as instructed once - [place] elder, rough IgE; Future - Alternaria tenuis IgE; Future - Maple / box elder IgE; Future - Cat dander, standard IgE; Future - Cladosporium herbarium IgE; Future - Elm IgE; Future - Aspergillus fumagatus IgE; Future - Dermatoph Pteronyssinus IgE; Future - Dermatoph Farinae IgE; Future - Ragweed, short, common IgE; Future - Allergen, Hungarian cockroach; Future - Milk IgE; Future - Peanut allergen; Future - Dog dander IgE; Future - Mountain juniper IgE; Future - [place] tree IgE; Future - Pigweed, rough IgE; Future - Thistle, [place]ib[place]ian IgE; Future - Cristino grass IgE; Future - Berm[place] grass IgE; Future - Pradip, white IgE; Future - Penicillium Chrysogenum IgE; Future - [place] IgE; Future - Debary tree IgE; Future - Pecan, tree IgE; Future - Mouse, serum proteins IgE; Future - Mucor racemosus IgE; Future - [place] IgE; Future - ARUP IgE (Allergy panels); Future Chronic intractable headache, unspecified headache type (R51.9, G89.29) Comments: order ct head Orders: - CT Head WO Contrast; Future Recurrent sinusitis (J32.9) Comments: order ct sinuses Orders: - CT Sinus WO Contrast; Future CANDE Du documented in this encounter Miscellaneous Notes * Assessment & Plan Note - Jeff Guzman PA - 06/09/2021 9:52 AM CDTAssociated Problem(s): Hypercholesteremia Chronic condition Uncontrolled Intolerant to atorvastatin / add to allergy list * Assessment & Plan Note - Jeff Guzman PA - 06/09/2021 9:47 AM CDTAssociated Problem(s): Essential hypertension D\c amlodipine/benazepril Start metoprolol xl 25mg documented in this encounter Plan of Treatment Not on file documented as of this encounter Visit Diagnoses Diagnosis Hypercholesteremia- Primary Pure hypercholesterolemia Benign essential HTN Drug eruption Dermatitis due to drugs and medicines taken internally Seasonal allergic rhinitis due to pollen Chronic intractable headache, unspecified headache type Recurrent sinusitis Unspecified sinusitis (chronic) documented in this encounter Administered Medications Inactive Administered Medications - up to 3 most recent administrations Medication Order MAR Action Action Date Dose Rate Site triamcinolone (KENALOG) 40 mg/mL injection 80 mg 80 mg, intramuscular, Once, On Tue06/09/21 at 1030, For 1 doseIndications:Seasonal allergic rhinitis due to pollen Given 06/09/2021 10:01 AM CDT 80 mg Other (Comment) documented in this encounter Discontinued Medications Medication Sig Discontinue Reason Start Date End Da te azithromycin (ZITHROMAX) 250 mg tabletIndications:Acute recurrent sinusitis, unspecified location Take 2 tabs (500 mg) by mouth today, than 1 daily for 4 days. Therapy completed 05/18/2021 06/09/2021 methylPREDNISolone (MEDROL DOSEPACK) 4 mg DosepackIndications:Acut e recurrent sinusitis, unspecified location Take as directed on package. Therapy completed 05/18/2021 06/09/2021 nystatin 100,000 unit/mL suspension Qid Therapy completed 06/08/2020 06/09/2021 atorvastatin (LIPITOR) 40 mg tabletIndications:Hyperc holesteremia Take 1 tablet (40 mg total) by mouth daily Side effects 05/26/2021 06/09/2021 amLODIPine-benazepriL (LOTREL 5-10) 5-10 mg per capsuleIndications:Benig n essential HTN Take 1 capsule by mouth daily Alternate therapy 05/26/2021 06/09/2021 documented as of this encounter Orders Lab Orders Without Results Count Last Ordered D ate First Ordered Date ALLERGEN,MALDIVIAN COCKROACH 1 06/09/2021 ARUP IGE (ALLERGY PANELS) 1 06/09/2021 documented in this encounter
--- OUTSIDE RECORDS SUMMARY | 2024-09-03 19:38 | XMS_ITS | Encounter Summary ---
Author Organization [facility] Address [address] [place] [address] Care Team Providers Care Language Assistant Name Role Phone Angeles Hernandez MD Unavailable [phone] Reason for Visit * Reason Comments Diarrhea Headache Earache bilateral burning with urination sore to lower abd Encounter Details Date Type Department Care Team ([facility] st Contact Info) Description 09/22/2021 9:00 AM DIRECTOR OF BUSINESS APPLICATIONS Office Visit [facility] [address] [place] [address] Brijesh Lynch MD [address] [place] [address] [address] [place] [address] Abscess of skin of abdomen (Primary Dx); Benign essential HTN; Gastroesophageal reflux disease with esophagitis without hemorrhage; Dyslipidemia with elevated low density lipoprotein (LDL) cholesterol and abnormally low high density lipoprotein cholesterol; Seasonal allergic rhinitis due to pollen; Neck pain; Burning with urination; Acute non-recurrent maxillary sinusitis; Acute cystitis without hematuria Social History Tobacco Use Types Packs/Day Years [...] file 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 DIRECTOR OF BUSINESS APPLICATIONS Gender Identity Female 03/27/2020 5:01 PM CDT Sexual Orientation Lesbian 03/27/2020 5: 01 PM CDT documented as of this encounter Last Filed Vital Signs Vital Sign Reading Time Taken Comments Blood Pressure 142/90 09/22/2021 8:52 AM DIRECTOR OF BUSINESS APPLICATIONS Pulse 61 09/22/2021 8:52 AM DIRECTOR OF BUSINESS APPLICATIONS Temperature 36.7 ??C (98.1 ??F) 09/22/2021 8:52 AM CS T Respiratory Rate 18 09/22/2021 8:52 AM DIRECTOR OF BUSINESS APPLICATIONS Oxygen Saturation 97% 09/22/2021 8:52 AM DIRECTOR OF BUSINESS APPLICATIONS Inhaled Oxygen Concentration - - Weight 84.4 kg (186 lb) 09/22/2021 8:52 AM DIRECTOR OF BUSINESS APPLICATIONS Height 167.6 cm (5' 6 ) 09/22/2021 8:52 AM DIRECTOR OF BUSINESS APPLICATIONS Body Mass Index 30.02 09/22/2021 8:52 AM DIRECTOR OF BUSINESS APPLICATIONS documented in this encounter Ordered Prescriptions Prescription Sig Dispense Quantity Refills Last Filled Start Date End Date clindamycin (CLEOCIN) 150 mg capsuleIndications :Acute non-recurrent maxillary sinusitis Take 1 capsule (150 mg total) by mouth 4 (four) times a day for 10 days 40 capsule 09/22/2021 2 methylPREDNISolone (MEDROL DOSEPACK) 4 mg DosepackIndication s:Acute non-recurrent maxillary sinusitis Take as directed on package. 21 tablet 09/22/2021 2 documented in this encounter Progress Notes * Brijesh Lynch MD - 09/22/2021 9:00 AM CST Images from the original note were not included. Subjective/Objective Patient ID: Chrissy Kilgore is a 51 y.o. female. Visit Date: 09/22/2021 Chief Complaint Diarrhea, Headache, Earache (bilateral ), burning with urination, and sore to lower abd HPI Returns to the office for repeat evaluation. States that she has diarrhea and the bilateral ear pain and pain with urinattion and a sore to the belly. The gerd is under control. ua + Review of Systems Constitutional: Negative for activity change. HENT: Positive for congestion and postnasal drip. Eyes: Negative for visual disturbance. Respiratory: Negative for cough and chest tightness. Cardiovascular: Negative for chest pain and leg swelling. Gastrointestinal: Negative for abdominal pain, blood in stool, constipation, diarrhea and nausea. Genitourinary: Negative for difficulty urinating. Musculoskeletal: Negative for arthralgias, back pain and gait problem. Skin: Negative for rash. abscess Neurological: Negative for headaches. Psychiatric/Behavioral: Negative for sleep disturbance. The patient is not nervous/anxious. Physical Exam Vitals reviewed. Constitutional: General: She is not in acute distress. Appearance: She is well-developed. HENT: Head: Normocephalic. Comments: Nasal congestion and cobblestoning in hte pop Right Ear: External ear normal. Left Ear: [...] Capillary refill takes less than 2 seconds. Comments: Lower mid abdominal abscess Neurological: Mental Status: She is alert and oriented to person, place, and time. Psychiatric: Behavior: Behavior normal. Assessment/Plan Diagnoses and all orders for this visit: Abscess of skin of abdomen (L02.211) (Primary) Comments: conditon acute. surgery by yasmin and clindamycin Benign essential HTN (I10) Comments: conditon chroinc adn at ogal continue the metoprolol xl. Gastroesophageal reflux disease with esophagitis without hemorrhage (K21.00) Comments: condition chroinc adn at goal coninue hte protonix Dyslipidemia with elevated low density lipoprotein (LDL) cholesterol and abnormally low high density lipoprotein cholesterol (E78.5) Comments: condition chroinc and at gaol contiue the crestor Seasonal allergic rhinitis due to pollen (J30.1) Comments: condition chronic and at goal. zyrtec and singular Neck pain (M54.2) Comments: condition chronic and at goal continue the tramadol. Burning with urination (R30.0) Comments: check ua Orders: - POCT urinalysis dipstick Acute non-recurrent maxillary sinusitis (J01.00) Comments: condition aucte. kenalog 40 mg, clindamycin for 10 days. medrol. Orders: - triamcinolone (KENALOG) 40 mg/mL injection 40 mg; Inject 1 mL (40 mg total) into the muscle as instructed once Acute cystitis without hematuria (N30.00) Comments: condition acute. clindamycin Brijesh Lynch MD CTOR OF BUSINESS APPLICATIONS documented in this encounter Plan of Treatment Not on file documented as of this encounter Procedures Procedure Name Priority Date/Time Associated Diagnosis Comments POCT URINALYSIS DIPSTICK Routine 09/22/2021 9:16 AM DIRECTOR OF BUSINESS APPLICATIONS Burning with urination documented in this encounter Results * (ABNORMAL) POCT urinalysis dipstick (09/22/2021 9:16 AM DIRECTOR OF BUSINESS APPLICATIONS) Color, Urine, POC Yellow Clarity, ur, POC Cloudy(A) Clear Glucose, ur, POC Negative Negative mg/dL Bilirubin, ur, POC Negative Negative, Small, Moderate, Large Ketones, ur, POC Negative Negative Specific [place], POC 1.025 1.005 - 1.030 Blood, ur, POC Negative Negative pH, ur, POC 5.5 5.0 - 8.0 Protein, ur, POC Negative Negative Urobilinogen, urine, POC 0.2 0.2 - 1.0 mg/dL Nitrite, ur, POC Negative Negative Leukocytes, ur, POC Trace(A) Negative Lot Number [id number] Urine 09/22/2021 9:16 AM DIRECTOR OF BUSINESS APPLICATIONS us Brijesh Lynch MD POINT OF CARE TEST ORDERABLES F inal Result documented in this encounter Visit Diagnoses Diagnosis Abscess of skin of abdomen- Primary Benign essential HTN Gastroesophageal reflux disease with esophagitis without hemorrhage Dyslipidemia with elevated low density lipoprotein (LDL) cholesterol and abnormally low high density lipoprotein cholesterol Seasonal allergic rhinitis due to pollen Neck pain Cervicalgia Burning with urination Dysuria Acute non-recurrent maxillary sinusitis Acute cystitis without hematuria documented in this encounter Administered Medications Inactive Administered Medications - up to 3 most recent administrations Medication Order MAR Action Action Date Dose Rate Site triamcinolone (KENALOG) 40 mg/mL injection 40 mg 40 mg, intramuscular, Once, On Tue09/22/21 at 1015, For 1 doseIndications:Acute non-recurrent maxillary sinusitis Given 09/22/2021 9:43 AM DIRECTOR OF BUSINESS APPLICATIONS 40 mg Other (Comment) documented in this encounter Orders Medications Ordered That Sarabjit ht Not Have Been Administered Count Last Ordered Date First Ordered Date triamcinolone (KENALOG) 40 m g/mL injection 40 mg 1 09/22/2021 documented in this encounter Care Teams Language Assistant Relationship Specialty Start Date End Date Angeles Hernandez MD [address] [address] Referring Physician Gynecology 07/21/21 documented as of this encounter
--- OUTSIDE RECORDS SUMMARY | 2024-09-03 19:38 | XMS_ITS | Encounter Summary ---
Author Organization [facility] Healthcare Address [address] [place] [id number] Care Team Providers Care Plastering Supervisor Name Role Phone Angeles Hernandez MD Unavailable [phone] Encounter Details Date Type Department Care Team ([facility] st Contact Info) Description 10/06/2021 9:55 AM EARLY LEARNING TEACHER Lab [facility] [address] [place] [address] Hypercholesteremia Social History Tobacco Use Types Packs/Day [...] on file 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 EARLY LEARNING TEACHER Gender Identity Female 03/27/2020 5:01 PM CDT Sexual Orientation Lesbian 03/27/2020 5: 01 PM CDT documented as of this encounter Plan of Treatment Not on file documented as of this encounter Procedures Procedure Name Priority Date/Time Associated Diagnosis Comments CREATINE KINASE (CK), TOTAL Routine 10/06/2021 10:04 AM EARLY LEARNING TEACHER Hypercholesteremia HEPATIC FUNCTION PANEL Routine 10/06/2021 10:04 AM EARLY LEARNING TEACHER Hypercholesteremia LIPID PANEL Routine 10/06/2021 10:04 AM EARLY LEARNING TEACHER Hypercholesteremia documented in this encounter Results * Lipid panel (10/06/2021 10:04 AM EARLY LEARNING TEACHER) Cholesterol 198 30 - 199 mg/dL [facility] [...] revised on 2018. Testing performed by: [facility], [address] [place] [address]., [address] Triglycerides 110 <=149 mg/dL [place] VILL[place]O Comment: [...] last revised on 2018. Testing performed by: [address] [address] HDL 95 >=40 mg/dL [place] Comment: Interpretive [...] last revised on 2018. Testing performed by: [address] [address] LDL, calculated 81 <=129 mg/dL [place] Comment: [...] last revised on 2018. Testing performed by: [address] [address] Non-HDL Cholesterol 103 mg/dL [place] Comment: Interpretive [...] last revised on 2018. Testing performed by: [address] [address] Chol/HDL ratio 2 [place] Comment:Testing performed by : [address] [address] Blood 10/06/2021 10:0 4 AM EARLY LEARNING TEACHER 10/06/2021 10:41 AM EARLY LEARNING TEACHER us Jeff CASTELLON LAB BLOOD ORDERABLES Final Resu lt Performing Organization Address [facility] Co de Phone Number [facility] [place] [employer] [place] [address] * Creatine kinase (CK), total (10/06/2021 10:04 AM EARLY LEARNING TEACHER) CK 46 30 - 200 Units/L [facility] Comment:Testing performed by : [address] [address] Blood 10/06/2021 10:0 4 AM EARLY LEARNING TEACHER 10/06/2021 10:41 AM EARLY LEARNING TEACHER us Jeff CASTELLON LAB BLOOD ORDERABLES Final Resu lt Performing Organization Address City/[facility] Co de Phone Number [place] [phone] [facility] [place] [employer] [place] [address] * (ABNORMAL) Hepatic function panel (10/06/2021 10:04 AM EARLY LEARNING TEACHER) Bilirubin, total 0.4 0.1 - 1.2 mg/dL [facility] Comment:Testing performed by : [address] [address] Bilirubin, direct <0.2 0.1 - 0.3 mg/dL [place] Comment:Testing performed by : [address] [address] Protein, pl 7.3 6.5 - 8.5 g/dL [place] Comment:Testing performed by : [address] [address] Albumin 4.2 3.5 - 5.0 g/dL [place] Comment:Testing performed by : [address] [address] Alk phos 160(H) 40 - 130 Units/L [place] Comment:Testing performed by : [address] [address] ALT 33 7 - 45 Units/L [place] Comment:Testing performed by : [address] [address] AST 23 10 - 45 Units/L [place] Comment:Testing performed by : [address] [address] Blood 10/06/2021 10:0 4 AM EARLY LEARNING TEACHER 10/06/2021 10:41 AM EARLY LEARNING TEACHER us Jeff CASTELLON LAB BLOOD ORDERABLES Final Resu lt [facility] [address] [facility] [place] [address] documented in this encounter Visit Diagnoses Diagnosis Hypercholesteremia Pure hypercholesterolemia documented in this encounter Care Teams Plastering Supervisor Relationship Specialty Start Date End Date Angeles Hernandez MD [address]VAS [address] [place] [address] Referring Physician Gynecology 07/21/21 documented as of this encounter
--- OUTSIDE RECORDS SUMMARY | 2024-09-03 19:38 | XMS_ITS | Encounter Summary ---
Author Organization [facility] Address [address] [place] [address] Phone Care Team Providers Care Senior Director Insight Name Role Phone Angeles Hernandez MD Unavailable [phone] Reason for Referral * Diagnostic Imaging (Routine) - Closed Specialty Diagnoses / Procedures Referred By Contac t Referred To Contact Diagnoses Family history of breast cancer Breast cancer screening, high risk patient Procedures Screening Mammogram Bilateral W Darren Rachel Kay MD [address] [place] [address] Phone: tel: fax: [address] [address] Referral ID Status Reason Start Date Expiration Date Visits Re quested Visits Authorized [id number] Closed 08/05/2021 09/04/2022 1 1 ICAL PRODUCTION WORKER * MRI/CAT/PET Scan (Routine) - Closed Specialty Diagnoses / Procedures Referred By Contac t Referred To Contact Radiology Diagnoses Family history of breast cancer Atypical lobular hyperplasia (ALH) of left breast Procedures MRI Breast Bilateral W WO Contrast Rachel Kay MD [address] [place] [address] Phone: tel: fax: [address] [address] Referral ID Status Reason Start Date Expiration Date Visits Re quested Visits Authorized [id number] Closed 09/24/2021 12/24/2021 1 1 ICAL PRODUCTION WORKER Reason for Visit * Reason Comments Consult * Consultation (Routine) - Closed Specialty Diagnoses / Procedures Referred By Contac t Referred To Contact Oncology Diagnoses History of breast cancer Angeles Hernandez MD [address] [facility] [address] [place] [address] Phone: tel: fax: Rachel Kay MD Phone: tel: fax: Referral ID Status Reason Start Date Expiration Date V isits Requested Visits Authorized [id number] Closed Specialty Services Required 07/06/2021 08/05/2022 99 [phone] Encounter Details Date Type Department Care Team (Latest Contact Info) Description 08/05/2021 1:00 PM CLERICAL PRODUCTION WORKER Office Visit [facility] Oncology [address] [place] [address] [address] [place] [address] Rachel Kay MD [address] [facility] [address] [place] [address] Family history of breast cancer (Primary Dx); Breast cancer screening, high risk patient; Atypical lobular hyperplasia (ALH) of left breast; Encounter for screening mammogram for breast cancer; Encounter for nonprocreative genetic counseling and testing; Family history of pancreatic cancer Social History Tobacco Use Types Packs/Day [...] on file 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 CLERICAL PRODUCTION WORKER Gender Identity Female 03/27/2020 5:01 PM CDT Sexual Orientation Lesbian 03/27/2020 5: 01 PM CDT documented as of this encounter Last Filed Vital Signs Vital Sign Reading Time Taken Comments Blood Pressure 126/73 08/05/2021 12:57 PM CLERICAL PRODUCTION WORKER Pulse 46 08/05/2021 12:57 PM CLERICAL PRODUCTION WORKER Temperature 36.7 ??C (98 ??F) 08/05/2021 12: 57 PM CLERICAL PRODUCTION WORKER Respiratory Rate 16 08/05/2021 12:5 7 PM CLERICAL PRODUCTION WORKER Oxygen Saturation 98% 08/05/2021 12: 57 PM CLERICAL PRODUCTION WORKER Inhaled Oxygen Concentration - - Weight 89.3 kg (196 lb 12.8 oz) 021 12:57 PM CLERICAL PRODUCTION WORKER Height 167.6 cm (5' 6 ) 08/05/2021 12:5 7 PM CLERICAL PRODUCTION WORKER Body Mass Index 31.76 08/05/2021 12:57 PM CLERICAL PRODUCTION WORKER documented in this encounter Ordered Prescriptions Prescription Sig Dispense Quantity Refills Last Filled Start Date End Date raloxifene (EVISTA) 60 mg tabletIndications: prevention of breast cancer in high risk women Take 1 tablet (60 mg total) by mouth daily 30 tablet 11 08/05/2021 05/11/2022 documented in this encounter Progress Notes * Rachel Kay MD - 08/05/2021 1:00 PM CST Chief complaint: risk assessment. Destini is been referred by Dr. Hernandez because of a family history of cancer. In the past she was followed at [facility] for high risk status. Her a clinic note dated 07/05/2016, Destinihas a history of the left breast core followed by excisional biopsy 03/15/2013 that revealed PASH; surgical pathology revealed focal ALH. She was started on tamoxifen soon after this was discontinuedafter a few doses for a rash. She was on a high risk screening program. She's now in the area and needs to establish care. No breast concerns. Risk assessment data: Chrissy Kilgore has been 3 time(s) and she has 2 living children. She delivered her first child at age 29. Menarche: 12. Menopause status: postmenopausal starting at age 49. LMP 06/27/21 after 2 years without a cycle. Hotflashes. Recent D&C reportedly showed a benign polyp. She has had a unilateral oophorectomy (left, for cysts). OCP use: Former user HRT use: Never user History of benign breast biopsies (left axillary benign lymph nodes, [facility] 01/2013) Past medical history: Patient Active Problem List Diagnosis ??? Visual disturbance ??? Age-related nuclear cataract of right eye ??? PCO (posterior capsular opacification), left ??? Epiretinal membrane (ERM) of both eyes ??? Vitreous syneresis of both eyes ??? COVID-19 ??? Hypercholesteremia ??? Benign essential HTN ??? Atypical lobular hyperplasia (ALH) of left breast ??? Family history of breast cancer ??? Breast cancer screening, high risk patient ??? Encounter for screening mammogram for breast cancer Past Medical History: Diagnosis Date ??? Asthma ??? Brain concussion [id number] ??? Depression [id number] ??? Epiretinal membrane (ERM), bilateral ??? GERD (gastroesophageal reflux disease) ??? Hypercholesteremia ??? Hypertension ??? Irritable bowel syndrome ??? Kidney stone 343165 ??? Menstrual problem 065181 ??? Migraines 596348 ??? Peptic ulceration 0101?? 1 Past surgical history: Past Surgical History: Procedure Laterality Date ??? APPENDECTOMY ??? BREAST SURGERY ??? CATARACT EXTRACTION 104881 ??? CHOLECYSTECTOMY 438483 ??? COLON SURGERY 425079 ??? COLONOSCOPY ??? DILATION AND CURETTAGE OF UTERUS ??? GALLBLADDER SURGERY ??? OOPHORECTOMY ??? OVARY SURGERY ??? SMALL INTESTINE SURGERY 0101?? 1 Social history: Social History Tobacco Use ??? Smoking status: Never Smoker ??? Smokeless tobacco: Never Used Substance Use Topics ??? Alcohol use: Never Allergies: Allergies Allergen Reactions ??? Penicillins Hives and Anaphylaxis Anaphylaxis ??? Tamoxifen Hives ??? Atorvastatin Joint pain Medications: Current Outpatient Medications: ??? albuterol, 2 puff, inhalation, Q6H PRN ??? albuterol, 2.5 mg, nebulization, Q6H PRN ??? cetirizine, 10 mg, oral, Daily ??? EPINEPHrine, 1 Syringe, intramuscular, PRN ??? fluticasone propionate, SHAKE LIQUID AND USE 1 SPRAY IN EACH NOSTRIL DAILY NEEDED FOR NASAL CONGESTION ??? ibuprofen, 1 tablet, oral, Q6H PRN ??? metoprolol XL, TAKE 1 TABLET(25 MG) BY MOUTH DAILY ??? pantoprazole DR, TAKE 1 TABLET(40 MG) BY MOUTH DAILY ??? rosuvastatin, 5 mg, oral, Daily ??? tiZANidine, 4 mg, oral, Q8H PRN ??? traMADoL, TAKE 1 TABLET(50 MG) BY MOUTH EVERY 8 HOURS NEEDED FOR PAIN ??? hydrOXYzine, 25 mg, oral, TID ??? montelukast, 10 mg, oral, Nightly Family history of cancer: Children: Daughter Georgina is 21, Andrea was born in 2006 Mother: breast cancer, diagnosed at 47. at age 48 due to cancer. No genetic testing. Father: rare esophageal cancer, diagnosed at ?. Alive. He was an only child and raised by relativesother than his parents, so no info about his family's health history. Sister(s): 0 of 0 N/A. N/A. Brother(s): 2 of 2 no cancer. Alive, age 48 and 43. Their kids are healthy. Maternal aunt(s): 1 of 1 no cancer. , unknown COD. She had 3 kids; 2 are still alive. Maternal uncle(s): 1 of 2 pancreatic cancer, diagnosed at 70-something. Recent diagnosis and he (Claudio) is alive. He refused genetic testing. 2 sons, a/w. The other uncle, Ender, has no kids. Destini's mom had other siblings, but and unknown to Destini, so no info. She doesn't communicate much with her family. Maternal grandmother: no cancer. . Maternal grandfather: no cancer . Maternal ethnicity: ; no Ashkenazi Advent. Paternal ethnicity: Green[place]ic Scanned pedigree 08/05/2021 Review of systems: Review of Systems Exam Vitals BP 126/73 (BP Location: Left [...] Conjunctiva/sclera: Conjunctivae normal. Neck: Thyroid: No thyromegaly. Cardiovascular: Rate and Rhythm: Normal rate. Pulmonary: Effort: Pulmonary effort is normal. No respiratory distress. Breath sounds: Normal breath sounds. No stridor. Chest: Breasts: Breasts are symmetrical. Right: No inverted nipple, mass, nipple discharge, skin change, tenderness, axillary adenopathy or supraclavicular adenopathy. Left: No inverted nipple, mass, nipple discharge, skin change, tenderness, axillary adenopathy or supraclavicular adenopathy. Abdominal: Palpations: Abdomen is soft. Tenderness: There [...] Judgment: Judgment normal. Imaging/data review: Breast imaging ?? Breast MRI 12/16/2012 done at [facility] and showing bilateral masses. Comparison to priors and US recommended. ?? Left breast US 01/30/13, BI-RADS category 4A. In the left breast, a non parallel solid mass was seen measuring up to 9 mm in the subareolar breast at 1 o'clock. Another 9 mm solid mass was seen in the 2 o'clock position, 3 CMFN. An oval parallel [...] microcysts, and PASH. She then underwent excision--results below. ?? Screening mammography at [facility] 07/06/16, BI-RADS 2 for bilateral masses. Scattered fibroglandular densities. ??? bilateral screening mammography 12/10/20 at [facility]. BI-RADS 2. No priors were available. Multiple bilateral masses c/w a benign entity were noted. Genetic testing: Other imaging reports and data reviewed: ??? Office records from [facility] in Care Everywhere and scanned 07/05/16 and before including left breast excisional biopsy path 03/15/13: ?? CMP 10/05/20 showing a K of 3.3, alk phos of 181, ALT 90, AST 36 ??? records/office visit notes from Dr. Lynch and Jeff Guzman () back to 11/21/20. ??? records/office visit notes from Dr. Hernandez (02/04/21). ??? CMP 03/11/21 normal other than a calcium of 10.6 ??? CBC 03/11/21 WNL ??? Lipid panel 05/28/21 showing a TC 294 (down from 380), TG 214, HDL 72, LDL 179 (down from 271) ??? Brain CT scan 06/18/2021, normal. Risk Assessment: As of 08/05/2021 Eddieandrzej Janina est lifetime risk 23-27% (28-33% without competing mortality) (depending on inclusion of her single focus of atypia) Eddieandrzej Janina est 10 year risk 9% Clarita estimated 5-year risk is 5.7%. Assessment/Plan: Elevated lifetime breast cancer risk We recommend annual breast MRI for women whose lifetime risk is > 20% , so she is eligible. When annual screening MRI is performed in conjunction with annual mammography, we ideally stagger the studies by 6 months. Elevated 5 year risk of breast cancer or ER+ DCIS Eligible for endocrine prophylaxis We reviewed the following: ? ? Recommended by NCCN and ASCO for women 35+ and with a 5 year breast cancer risk of > 1.7% to3% using the Clarita model or with a TC 10 year risk > 5% ??? Reduces the risk of a second breast cancer for women with ER+ DCIS not treated with bilateral mastectomy ??? Anti-estrogen medication reduces HR + breast cancer risk by about half. Options include: Tamoxifen ??? Selective estrogen receptor modulator (SERM) ??? The only option for premenopausal women ??? 20 mg daily x 5 years is the recommended dose ??? 5 mg daily x 3 years an option for women unable to tolerate standard dose ??? I typically prescribe 10 mg tablets to allow dosing flexibility as needed ??? Side effects include vasomotor symptoms, irregular menses, vaginal discharge (less impact on dryness than the other options), swelling, etc ??? Increased risks of thromboembolic events and endometrial carcinoma, cataracts (uncommon) ??? Contraindications: history of thromboembolic events, inherited clotting trait, or potential ??? NCCN Guidelines recommend routine gynecologic evaluation for all women on tamoxifen with an intact uterus. ? ? Drug interactions include coumadin, certain SSRIs and SNRIs (paroxetine and fluoxetine > bupoprion > sertraline, duloxetine, and fluvoxamine) *Not an option given her rash when she tried this in 2012 Raloxifene ??? SERM ??? Postmenopausal women only ??? 60 mg daily x 5 years or longer when used for bone health (benefit with raloxifene isn't as durable as the benefit with tamoxifen) ??? Side effects include vasomotor symptoms, vaginal symptoms, swelling, muscle cramps ??? Increased risk of thromboembolic events ??? No increase in endometrial cancer risk and less risk of thromboembolic events and cataracts than tamoxifen ??? Often a safer option for older women who retain their uterus ??? Contraindications: history of thromboembolic events or inherited clotting trait ??? Fewer drug interactions *Could cross-react and cause an allergic reaction, but she is willing to try. *Recent D&C benign *Followed by ophthalmology at [facility] Exemestane and anastrozole ??? Aromatase inhibitorsPostmenopausal women only ??? Exemestane 25 mg daily o Exemestane side effects include vasomotor symptoms, arthralgias ??? Anastrozole 1 mg daily o Anastrozole side effects include vasomotor symptoms, vaginal dryness, arthralgias, increase in cholesterol, hypertension, increase in cardiovascular events o Per ASCO, osteoporosis is a relative contraindiction to anastrozole ??? Increased risk of reduction in bone density ??? Need baseline DEXA, vitamin D ??? Need to take calcium (1200 mg) and vitamin D (800 IU) daily ??? Exercise is an effective way to manage musculoskeletal side effects ??? Weight-bearing exercise protects bones *She'd like to avoid given their potential impact on cholesterol, which is already problematic At risk for hereditary cancer; candidate for genetic testing Meets the following criteria for testing: Mother with early-onset breast cancer; and she had a FDR with pancreatic cancer. We sent [employer] Multi-Cancer panel today. We discussed all of the following: ??? Most cancers (90%) are NOT caused by likely pathogenic/pathogenic variants. There are many different genes that contribute to the development of the other 10% of cancers. We don't have screening or management guidelines for some of the genes we test for. We discussed the option of testing for alimited number of genes or a broader panel, and discussed pros/cons of each. ??? When a LP/P variant is identified, all family members at risk should be notified and given a copy of the results so they, too, can pursue testing. ??? When possible, we test a family member who has cancer. If a LP/P variant is identified in a family, those who test negative do not have the gene-associated increased risk. A negative result in someone unaffected by cancer is uninformative if there is not yet an identified LP/P variant in the family. ??? Testing may show a Variant of Uncertain Significance (VUS). Over time, VUSs may be reclassifiedas pathogenic or as benign (most as benign). A VUS has NO impact on treatment or screening. We typically do not test family members for a VUS. ??? Testing may have surprising results. For instance, it's possible we find a cancer risk gene we weren't expecting. ??? Cancer risk is NOT 100% with any of these genes, and in fact may not be significantly higher than the risk is for most people. ??? Depending on test results, I may want another niaq-me-jcjr conversation with the patient. I mayalso ask them to meet with a genetic counselor or other providers. ??? Test results become part of the medical record. They cannot be used to discriminate for health insurance or employment purposes (employers > 15 employees). However, YOVANI (The Genetic Information Nondisclosure Act) does not include protection from discrimination for life, disability, or long-term care insurance or for the . ??? When criteria are met, testing is usually covered by insurance. If not, the uzt-av-kuvjae depends on the lab policy, insurance deductible, etc. With [employer] and [employer], patients are contacted withan expected axh-ek-fmlfhx cost; most patients pay $100 or less. For patients with high expected gxh-lb-jexbuj cost, a $250 jackson option is available. It is important to respond to company communications within the required time frame to prevent higher rqy-gd-zmejfh costs. [employer] contacts patients with any expected qwt-dj-vapdvj cost and obtains patient permission prior to proceeding with testing. I'll reach out when I have results, usually in a few weeks. If test results impact our management, I'll see the patient back to discuss that further. Return to clinic: in about a year, MRI time Mammogram: Due November 2021 but we'll push that back a bit to keep it staggered with her MRI MRI: Due now I encouraged Chrissy Georges , who seems happy with this plan, to contact me with any questions or concerns, and all questions were answered to the best of my ability. I appreciate the kind referral. My total encounter time on 08/05/2021 was 60 minutes which was spent in the activities documented in the note. This includes time spent prior to the visit and after the visit in direct care of the patient. This time does not include time spent in any separately reportable services. 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 I notified her of rosa yL and will mail a copy to her with a summary letter, available in her chart. I notified her of these results by when the preliminary report was available. ICAL PRODUCTION WORKER ICAL PRODUCTION WORKER documented in this encounter Plan of Treatment Not on file documented as of this encounter Results * Screening Mammogram Bilateral W Darren (05/18/2022 8:44 AM CDT) Anatomical Region Laterality Modality Breast Bilateral Mammography 05/18/2022 9:10 AM CDT Impressions 05/18/2022 9:10 AM CDT No evidence of malignancy in either breast. FINAL ASSESSMENT: BI-RADS Category 2: Benign. RECOMMENDATION: Recommend return for annual screening mammogram in 12 months. ?? Electronically signed by: Mary Blevins M.D. Narrative 05/18/2022 9:10 AM CDT EXAMINATION: BILATERAL SCREENING MAMMOGRAM COMPARISON: 12/10/2020 [facility] TECHNIQUE: Full-field 2D and digital breast tomosynthesis (DBT) images were obtained. CAD was utilized. BREAST PARENCHYMAL COMPOSITION: ??There are scattered areas of fibroglandular density. FINDINGS: There is no suspicious mass, calcification, or distortion in either breast. There has been no significant interval change from the prior study. ??Bilateral stable benign nodules are seen. us Rachel Kay MD IMG MAMMO PROCEDURES Final Result * MRI Breast Bilateral W WO Contrast (10/06/2021 10:00 AM CLERICAL PRODUCTION WORKER) Anatomical Region Laterality Modality Breast Bilateral Magnetic Resonan ce 10/06/2021 10:1 9 AM CLERICAL PRODUCTION WORKER Narrative 10/06/2021 12:30 PM CLERICAL PRODUCTION WORKER EXAM DESCRIPTION: ?? MRI BREAST BILATERAL W [...] coil. The images were reviewed on an [employer] work station and underwent CAD analysis. FINDINGS: [...] Electronically signed by ??Alberto Macdonald M.D. AB: D: ??10/06/2021 12:30 PM T: ??10/06/2021 12:30 PM Report ID: [id number] Reading Location[facility] Rachel Kay MD IM MRI PROCEDURES Final Re sult documented in this encounter Visit Diagnoses Diagnosis Family history of breast cancer- Primary Family history of malignant neoplasm of breast Breast cancer screening, high risk patient Screening mammogram for high-risk patient Atypical lobular hyperplasia (ALH) of left breast Encounter for screening mammogram for breast cancer Encounter for nonprocreative genetic counseling and testing Family history of pancreatic cancer Family history of malignant neoplasm of gastrointestinal tract Family history of breast cancer Family history of malignant neoplasm of breast Atypical lobular hyperplasia (ALH) of left breast Family history of breast cancer Family history of malignant neoplasm of breast Breast cancer screening, high risk patient Screening mammogram for high-risk patient documented in this encounter Care Teams Senior Director Insight Relationship Specialty Start Date End Date Angeles Hernandez MD [address] [address] Referring Physician Gynecology 07/21/21 documented as of this encounter
--- OUTSIDE RECORDS SUMMARY | 2024-09-03 19:38 | XMS_ITS | Encounter Summary ---
Author Organization [facility] Healthcare Address [address] [place] [address] Care Team Providers Care Pump Room Operator Name Role Phone Angeles Hernandez MD Unavailable [phone] Reason for Referral * Sleep Medicine (Routine) - Closed Specialty Diagnoses / Procedures Referred By Sharlene angulo Referred To Contact Diagnoses Snoring Abnormal leg movement Fatigue, unspecified type Psychophysiological insomnia Essential hypertension Anxiety Nonsmoker Overweight Procedures Portable/Home Sleep Study Teddy Amos MD Phone: tel: fax: [address] [address] Referral ID Status Reason Start Date Expiration Date Visits Re quested Visits Authorized [id number] Closed 08/12/2021 09/11/2022 1 1 ICES CLERK Reason for Visit * Sleep Medicine (Routine) - Closed Specialty Diagnoses / Procedures Referred By Sharlene angulo Referred To Contact Diagnoses Snoring Abnormal leg movement Fatigue, unspecified type Psychophysiological insomnia Essential hypertension Anxiety Nonsmoker Overweight Procedures Portable/Home Sleep Study Teddy Amos MD Phone: tel: fax: [address] [address] Referral ID Status Reason Start Date Expiration Date Visits Re quested Visits Authorized [id number] Closed 08/12/2021 09/11/2022 1 1 Encounter Details Date Type Department Care Team (Latest Contact Info) Description 09/07/2021 8:59 AM SERVICES CLERK - 09/07/2021 11:59 PM SERVICES CLERK Hospital Encounter [facility] [address] [place] [address] Snoring; Abnormal leg movement; Fatigue, unspecified type; Psychophysiological insomnia; Essential hypertension; Anxiety; Nonsmoker; Overweight Discharge Disposition: Discharge to home or self [...] on file 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 SERVICES CLERK Gender Identity Female 03/27/2020 5:01 PM CDT [...] 6 (six) hours as needed 11/13/2020 2 metoprolol XL (TOPROL-XL) 25 mg extended [...] 8 HOURS NEEDED FOR PAIN 90 tablet 08/24/2021 2 documented as of this encounter Discharge Disposition Disposition Code Departure Means Destination Discharge to home or self care documented in this encounter Plan of Treatment Not on file documented as of this encounter Procedures Procedure Name Priority Date/Time Associated Diagnosis Comments PORTABLE/HOME SLEEP STUDY Routine 09/07/2021 8:59 AM SERVICES CLERK Snoring Abnormal leg movement Fatigue, unspecified type Psychophysiological insomnia Essential hypertension Anxiety Nonsmoker Overweight documented in this encounter Results * Portable/Home Sleep Study (09/07/2021 8:59 AM SERVICES CLERK) us Teddy Amos MD SLEEP CENTER ORDERABLES Fin al Result Performing Organization Address City/State/RUST Co de Phone Number [facility] [address] [place] [address] documented in this encounter Visit Diagnoses Diagnosis Snoring Other dyspnea and respiratory abnormality Abnormal leg movement Fatigue, unspecified type Psychophysiological insomnia Persistent disorder of initiating or maintaining sleep Essential hypertension Unspecified essential hypertension Anxiety Anxiety state, unspecified Nonsmoker Other specified conditions influencing health status Overweight documented in this encounter Care Teams Pump Room Operator Relationship Specialty Start Date End Date Angeles Hernandez MD [address] [address] Referring Physician Gynecology 07/21/21 documented as of this encounter
--- OUTSIDE RECORDS SUMMARY | 2024-09-03 19:38 | XMS_ITS | Encounter Summary ---
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 280 mL 06/23/2021 07/07/2021 documented in this encounter Plan of Treatment Not on file documented as of this encounter Visit Diagnoses Not on filedocumented in this encounter
--- OUTSIDE RECORDS SUMMARY | 2024-09-03 19:38 | XMS_ITS | Encounter Summary ---
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 Gender Identity Female 03/27/2020 5:01 PM CDT Sexual Orientation Lesbian 03/27/2020 5: 01 PM CDT documented as of this encounter Plan of Treatment Not on file documented as of this encounter Procedures Procedure Name Priority Date/Time Associated Diagnosis Comments SCAN - LABS 09/03/2021 documented in this encounter Results * SCAN - LABS (09/03/2021) us Provider Scanning Final Result documented in this encounter Visit Diagnoses Not on filedocumented in this encounter Care Teams Veneer Supervisor Relationship Specialty Start Date End Date Jeff Guzman PA [address] [place] [address] PCP - General Family Medicine 06/21/22 02/17/23 Raomnita Crawford NP [address] [address] PCP - General Family Medicine 02/18/23 Angeles Hernandez MD [address] [place], [place] [id number] Referring Physician Gynecology 07/21/21 documented as of this encounter
--- OUTSIDE RECORDS SUMMARY | 2024-09-03 19:38 | XMS_ITS | Encounter Summary ---
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 Gender Identity Female 03/27/2020 5:01 PM CDT Sexual Orientation Lesbian 03/27/2020 5: 01 PM CDT documented as of this encounter Plan of Treatment Not on file documented as of this encounter Procedures Procedure Name Priority Date/Time Associated Diagnosis Comments CARDIOLOGY DOCUMENT SCAN 10/03/2021 documented in this encounter Results * CARDIOLOGY DOCUMENT SCAN (10/03/2021) Anatomical Region Laterality Modality Other us Provider Scanning CV CARDIAC SERVICES PROCEDURES Final Result documented in this encounter Visit Diagnoses Not on filedocumented in this encounter Care Teams Heat Curer Relationship Specialty Start Date End Date Jeff Guzman PA [address] [place], [place] [id number] PCP - General Family Medicine 06/21/22 02/17/23 Ramonita Crawford NP [address] [id number] PCP - General Family Medicine 02/18/23 Angeles Hernandez MD [address] [place] [address] Referring Physician Gynecology 07/21/21 documented as of this encounter
--- OUTSIDE RECORDS SUMMARY | 2024-09-03 19:39 | XMS_ITS | Encounter Summary ---
Author Organization [facility] Address [address] [place] [address] Care Team Providers Care Aircraft Line Assembler Name Role Phone Unavailable Primary Care Provider Unavailabl e Reason for Visit * Reason Comments Sinusitis Encounter Details Date Type Department Care Team ([facility] st Contact Info) Description 05/18/2021 9:45 AM CDT Telemedicine [facility] Family Medicine [address] [place] [address] Jeff Guzman, PA [address] [address] Acute recurrent sinusitis, unspecified location (Primary Dx); Dysuria; Hypercholesteremia; Muscle pain Social History Tobacco Use Types Packs/Day Years Used Date Smoking Tobacco: Never Smokeless Tobacco: Never Alcohol Use Standard Drinks/Week Comments Never 0 (1 standard drink = 0.6 oz pur e alcohol) AUDIT-C Answer Date Recorded Q1: How often do you have a drink containing alc ohol? 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 21 tablet 05/18/2021 1 azithromycin (ZITHROMAX) 250 mg tabletIndications: Acute recurrent sinusitis, unspecified location Take 2 tabs (500 mg) by mouth today, than 1 daily for 4 days. 6 tablet 05/18/2021 1 documented in this encounter Progress Notes * Jeff Guzman, CANDE - 05/18/2021 9:45 AM CDT Subjective/Objective Patient ID: Chrissy Kilgore is a 50 y.o. female. Chief Complaint Sinusitis HPI Patient completed telemedicine visit via video audio today. Patient states over the last week she has had increased sinus congestion drainage. She feels pressure throughout the sinuses. She does have a history of significant sinus infection. Patient states she has a history of a sinus infection progressing to the point she needed hospitalization. Patient did have COVID roughly 6 weeks ago. She feels like she did resolve symptoms from that and now has developed a 2nd upper respiratory set of infection or symptoms. Patient does have complaints of dysuria with being with cloudy urine over the last week. She has difficulty starting urine as well as small voiding volumes. Patient also concernedabout a cholesterol has been high in the past she is wanting know when she get this recheck. Review of Systems Constitutional: Negative for fatigue, fever and unexpected weight change. HENT: Positive for congestion, rhinorrhea and sinus pressure. Negative for ear pain, hearing loss and voice change. Eyes: Negative for discharge, [...] and all orders for this visit: Acute recurrent sinusitis, unspecified location (J01.91) (Primary) Comments: acute condition start zpak and mdp Orders: - azithromycin (ZITHROMAX) 250 mg tablet; Take 2 tabs (500 mg) by mouth today, than 1 daily for 4 days. - methylPREDNISolone (MEDROL DOSEPACK) 4 mg Dosepack; Take as directed on package. Dysuria (R30.0) Comments: order urinalysis and [facility] Orders: - Urinalysis reflex to microscopic and culture Urine, clean voided; Future Hypercholesteremia (E78.00) Assessment & Plan: Making dietary changes. Order lipid panel in 1 mo [facility] Orders: - Lipid panel; Future Muscle pain (M79.10) Comments: conditon chronci and not controlled. stop the flexeril start tizanadine Orders: - tiZANidine (ZANAFLEX) 4 mg tablet; Take 1 tablet (4 mg total) by mouth every 8 (eight) hours as needed for muscle spasms This was a telemedicine visit with Chrissy esposito which took place via real-time video connection with [employer]. During the visit, I was located in the office and the patient was located at home in the state of [place]. The patient visit started at 11:48 a.m. and ended at 1155 a.m.. The patient has been informed that [...] Plan Note - Jeff Guzman PA - 05/18/2021 11:53 AM CDT Associated Problem(s): Hypercholesteremia Making dietary changes. Order lipid panel in 1 mo [facility] documented in this encounter Plan of Treatment Not on file documented as of this encounter Results * (ABNORMAL) Lipid panel (05/28/2021 8:44 AM CDT) [facility] Cholesterol 294(H) 30 - 199 mg/dL [facility] [...] on 2018. HDL 72 >=40 mg/dL [facility] Comment: Interpretive Data Ages [...] revised on 2018. Non-HDL Cholesterol 222 mg/dL [facility] Comment: Interpretive Data Ages < or = [...] last revised on 2018. Chol/HDL ratio 4 [facility] Blood 05/28/2021 8:44 AM CDT 05/28/2021 9:30 AM CDT us Jeff CASTELL[facility] LAB BLOOD ORDERABLES Final Resu lt [facility] [address] Department [place] [address] * Urinalysis reflex to microscopic and culture Urine, clean voided (05/28/2021 8:41 AM CDT) Color, ur Yellow Yellow [facility] Clarity, ur Clear Clear [facility] Specific gravity, ur 1.028 1.003 - 1.030 [facility] pH, urine 5.0 [facility] Protein, ur ql Negative Negative [facility] Glucose, ur ql Negative Negative [facility] Ketones, ur Negative Negative [facility] Bilirubin, ur Negative Negative [facility] Blood, ur Negative Negative [facility] Urobilinogen, ur <2.0 <2.0 mg/dL [facility] Nitrite, ur Negative Negative [facility] Leukocyte esterase, ur Negative Negative [facility] UA reflex comment Reflex conditions for microscopic UA and culture not met. [facility] Urine, clean voided 05/28/2021 8:41 AM CDT 05/28/2021 8:55 AM CDT Narrative [facility] - 05/28/2021 9:04 AM CDT Urine Collection Method->Clean Catch Urine pH is affected by diet, medications, systemic acid-base disturbances, and renal tubular function. ??pH may affect urinary stone formation. ??For example, urine pH below 6.0 may help reduce the tendency for calcium phosphate stones and pH greater than 6.0 may reduce the tendency for uric acid stone formation. Source: [employer]. 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
--- OUTSIDE RECORDS SUMMARY | 2024-09-03 19:39 | XMS_ITS | Encounter Summary ---
Author Organization [facility] Address [address] [place] [address] Care Team Providers Care Adventure Therapist Name Role Phone Unavailable Primary Care Provider Unavailabl e Reason for Visit * Reason Comments Hypertension headaches and face g ets hot Memory Loss getting worse Encounter Details Date Type Department Care Team ([facility] st Contact Info) Description 05/26/2021 9:15 AM CDT Office Visit 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 Gender Identity Female 03/27/2020 5:01 PM CDT Sexual Orientation Lesbian 03/27/2020 5: 01 PM CDT documented as of this encounter Last Filed Vital Signs Vital Sign Reading Time Taken Comments Blood Pressure 149/88 05/26/2021 9:46 AM CDT Pulse 65 05/26/2021 9:46 AM CDT Temperature 36.6 ??C (97.8 ??F) 05/26/2021 9:46 AM CD T Respiratory Rate 18 05/26/2021 9:46 AM CDT Oxygen Saturation 99% 05/26/2021 9:46 AM CDT Inhaled Oxygen Concentration - - Weight 88.5 kg (195 lb 3.2 oz) 05/26/2021 9:46 A M CDT Height 167.6 cm (5' 6 ) 05/26/2021 9:46 AM CDT Body Mass Index 31.51 05/26/2021 9:46 AM CDT documented in this encounter Ordered Prescriptions Prescription Sig Dispense Quantity Refills Last Filled Start Date End Date atorvastatin (LIPITOR) 40 mg tabletIndications: Hypercholesteremia Take 1 tablet (40 mg total) by mouth daily 30 tablet 2 05/26/2021 1 amLODIPine-benazep riL (LOTREL 5-10) 5-10 mg per capsuleIndications :Benign essential HTN Take 1 capsule by mouth daily 30 capsule 2 05/26/2021 1 documented in this encounter Progress Notes * Jeff Guzman PA - 05/26/2021 9:15 AM CDT Images from the original note were not included. Subjective/Objective Patient ID: Chrissy Kilgore is a 50 y.o. female. Chief Complaint Hypertension (headaches and face gets hot) and Memory Loss (getting worse ) HPI Patient is here with follow-up on hypertension. Her blood pressures been running high at home sometimes 150-170 on systolic up to 120 on diastolic. She is getting headaches off and on she is feeling flushing of the face as well. Patient has not been feeling well over last year she has noticed she has had memory lost difficulty concentrating difficulty with short-term memory recall. She does have a family history of Alzheimer's. Patient also states the history of significant elevated cholesterol. Review of Systems Constitutional: Negative for fatigue, fever and unexpected weight change. HENT: Negative for congestion, ear pain, hearing loss, rhinorrhea and voice change. Eyes: Negative for discharge, redness and visual disturbance. Respiratory: Positive for shortness of breath. Negative for cough and chest tightness. Cardiovascular: Positive for chest pain and palpitations. Negative for leg swelling. Gastrointestinal: Positive for abdominal pain. Negative for blood in stool, constipation, diarrhea and nausea. Endocrine: Negative for polydipsia and polyuria. Genitourinary: Negative for dysuria and frequency. Skin: Negative for color change and rash. Neurological: Positive for headaches. Negative for dizziness and tremors. Hematological: Does not bruise/bleed easily. Psychiatric/Behavioral: Negative for confusion and dysphoric mood. Blood pressure 149/88, pulse 65, temperature 36.6 ??C (97.8 ??F), temperature source Oral, resp. rate 18, height 167.6 cm (5' 6 ), weight 88.5 kg (195 lb 3.2 oz), SpO2 99 %. Physical Exam Vitals reviewed. Constitutional: General: [...] Diagnoses and all orders for this visit: Palpitation (R00.2) (Primary) Comments: EKG: Rate 60 normal sinus rhythm no ST elevation depression no abnormal T-waves. No abnormal rate variability. Normal EKG Orders: - ECG 12 lead Benign essential HTN (I10) Assessment & Plan: Chronic condition New diagnosis Start lotrel 5/10 qd Hypercholesteremia (E78.00) Assessment & Plan: Chronic condition Uncontrolled Start atrovastatin 40mg every day Recheck cmp lipid in 3mo Chronic intractable headache, unspecified headache type (R51.9, G89.29) Comments: Order MRI of the brain Memory loss (R41.3) Comments: Order MRI of the brain [facility]er to [facility] Order CBC CMP TSH sed rate CANDE Du documented in this encounter Miscellaneous Notes * Assessment & Plan Note - Jeff Guzman PA - 05/26/2021 10:41 AM CDT Associated Problem(s): Hypercholesteremia Chronic condition Uncontrolled Start atrovastatin 40mg every day Recheck cmp lipid in 3mo * Assessment & Plan Note - Jeff Guzman PA - 05/26/2021 10:39 AM CDT Associated Problem(s): Essential hypertension Chronic condition New diagnosis Start lotrel 5/10 qd documented in this encounter Plan of Treatment Not on file documented as of this encounter Procedures Procedure Name Priority Date/Time Associated Diagnosis Comments ECG 12-LEAD Routine 05/26/2021 Palpitation documented in this encounter Results * ECG 12 lead (05/26/2021) us Jeff CASTELLON ECG ORDERABLES Final Result documented in this encounter Visit Diagnoses Diagnosis Palpitation- Primary Palpitations Benign essential HTN Hypercholesteremia Pure hypercholesterolemia Chronic intractable headache, unspecified headache type Memory loss documented in this encounter
--- OUTSIDE RECORDS SUMMARY | 2024-09-03 19:39 | XMS_ITS | Encounter Summary ---
Author Organization [facility] Address [address] [place] [address] Phone Care Team Providers Care Career Technical Education Teacher Name Role Phone Unavailable Primary Care Provider Unavailabl e Reason for Referral * (Routine) - Closed Specialty Diagnoses / Procedures Referred By Contac t Referred To Contact Diagnoses Age-related nuclear cataract of right eye Procedures IOL Biometry - OU - Both Eyes Mary Ann Webster MD [address] [place] [address] Phone: tel: fax: [facility] (All Locations) Referral ID Status Reason Start Date Expiration Date Visits Re quested Visits Authorized [id number] Closed 09/10/2020 10/10/2021 1 1 W EYE ASSEMBLER Encounter Details Date Type Department Care Team (Late st Contact Info) Description 09/10/2020 Orders Only [facility] Ophthalmology [facility] [place] [phone] Mary Ann Webster MD [address] [place] [address] Age-related nuclear cataract of right eye (Primary Dx) Social History Tobacco Use Types Packs/Day Years Used Date Smoking Tobacco: Never Smokeless Tobacco: Never Alcohol Use Standard Drinks/Week Comments Never 0 (1 standard drink = 0.6 oz pur e alcohol) AUDIT-C Answer Date Recorded Q1: How often do you have a drink containing alc ohol? 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
--- OUTSIDE RECORDS SUMMARY | 2024-09-03 19:39 | XMS_ITS | Encounter Summary ---
Author Organization [facility] Address [address] [place] [address] Care Team Providers Care Dental Laboratory Technician Apprentice Name Role Phone Unavailable Primary Care Provider Unavailabl e Reason for Visit * Reason Onset Date Comments Covid-19 Home Monitoring 04/22/2021 Encounter Details Date Type Department Care Team (Late st Contact Info) Description 04/22/2021 Telephone [facility] Accountable Care Organization [address] [place] [address] Pineda Tuttle MA [address] [facility] [address] [place] [address] Covid-19 Home Monitoring Social History Tobacco Use Types Packs/Day Years [...] on file 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 This patient has not completed their Registered Dental Assistant Rda questionnaire and has not responded to phone calls for 3 days. They will be discharged from the home monitoring program. If you believe the patient would benefit from ongoing monitoring, please have the patient contact the home monitoring program to re-enroll at . documented in this encounter Plan of Treatment Not on file documented as of this encounter Visit Diagnoses Not on filedocumented in this encounter
--- OUTSIDE RECORDS SUMMARY | 2024-09-03 19:39 | XMS_ITS | Encounter Summary ---
Author Organization [facility] Medical [facility] Address [address] [place] [address] Care Team Providers Care Demolition Crane Operator Name Role Phone Unavailable Primary Care Provider Unavailabl e Reason for Visit * Reason Comments COVID-19 EVALUATION Encounter Details Date Type Department Care Team ([facility] st Contact Info) Description 04/16/2021 2:15 PM CDT Telemedicine [facility] [address] [place] [address] Brijesh Lynch MD [address] [place] [id number] Infection due to COVID-19 virus variant of concern (Primary Dx); Mild intermittent asthma without complication; Allergy, subsequent encounter; Gastroesophageal reflux disease with esophagitis without hemorrhage; Lumbar back pain Social History Tobacco Use Types Packs/Day [...] on file 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 Subjective/Objective Patient ID: Chrissy Kilgore is a 50 y.o. female. Visit Date: 04/16/2021 This was a telemedicine visit with Chrissy Kilgore alone which took place via real-time video connection with [employer]. During the visit, I was located in the office and the patient was located at home in the [facility]. The patient visit started at 1420 and ended at 1430. The patient has been informed that the [...] billed and/or responsible for any applicable copayments. Chief Complaint COVID-19 EVALUATION HPI Returns to the office for repeat evaluation. Stats that she is feeling horrible and has the covid. The ashrma is under control The allergies are under control. The gerd is under control. Review of Systems Constitutional: Negative for activity change. HENT: Negative for congestion. Eyes: Negative for visual disturbance. Respiratory: Positive for cough, chest tightness and shortness of breath. Cardiovascular: Negative for chest pain and leg [...] atraumatic. Pulmonary: Effort: Pulmonary effort is normal. Musculoskeletal: General: Normal range of motion. Skin: General: Skin is warm and dry. Neurological: General: No focal deficit present. Mental Status: She is alert and oriented to person, place, and time. Psychiatric: Mood and Affect: Mood normal. Behavior: Behavior normal. Assessment/Plan Diagnoses and all orders for this visit: Infection due to COVID-19 virus variant of concern (U07.1) (Primary) Comments: condition aucte order infusion Mild intermittent asthma without complication (J45.20) Comments: conditon chroinc and at goal continue aleksandra inhaler prn Allergy, subsequent encounter (T78.40XD) Comments: conditon chroinc adn at goal continue hte zyrtec and singular Gastroesophageal reflux disease with esophagitis without hemorrhage (K21.00) Comments: conditon chroinc adn at gaol continue the protnix Lumbar back pain (M54.5) Comments: condition chronic and at goal continue hte tramadol. Brijesh Lynch MD documented in this encounter Plan of Treatment Not on file documented as of this encounter Visit Diagnoses Diagnosis Infection due to COVID-19 virus variant of concern- Primary Mild intermittent asthma without complication Allergy, subsequent encounter Gastroesophageal reflux disease with esophagitis without hemorrhage Lumbar back pain Lumbago documented in this encounter Discontinued Medications Medication Sig Discontinue Reason Start Date End Da te acetaminophen-codeine (TYLENOL with CODEINE #3) 300-30 mg per tablet TAKE 1 TABLET BY MOUTH EVERY 6 TO 8 HOURS NEEDED FOR PAIN 12/17/2020 04/16/2021 methylPREDNISolone (MEDROL DOSEPACK) 4 mg DosepackIndications:Lumba r back pain Take as directed on package. 01/28/2021 04/16/2021 methylPREDNISolone (MEDROL DOSEPACK) 4 mg DosepackIndications:Prima ry osteoarthritis involving multiple joints Take as directed on package. Therapy completed 11/21/2020 04/16/2021 documented as of this encounter Historical Medications * This list may reflect changes made after this encounter. albuterol (PROAIR DIGIHALER) 90 mcg/actuation inhaler Inhale 2 puffs every 6 (six) hours as needed for wheezing 2 ondansetron (ZOFRAN) 4 mg tablet TAKE 1 TABLET BY MOUTH EVERY 6 HOURS NEEDED FOR NAUSEA OR VOMITING 03/26/2021 1 fluticasone propionate (FLONASE) 50 mcg/actuation nasal spray SHAKE LIQUID AND USE 1 SPRAY IN EACH NOSTRIL DAILY NEEDED FOR NASAL CONGESTION 03/26/2021 3 added in this encounter
--- OUTSIDE RECORDS SUMMARY | 2024-09-03 19:39 | XMS_ITS | Encounter Summary ---
Author Organization [facility] Address [address] [place] [address] [address] [place] [address] Care Team Providers Care Special Systems Technician Name Role Phone Unavailable Primary Care Provider Unavailabl e Reason for Visit * Reason Onset Date Comments Covid-19 Home Monitoring 04/20/2021 non-res ponder Encounter Details Date Type Department Care Team ([facility] st Contact Info) Description 04/20/2021 Telephone [facility] Accountable Care Organization [address] [place] [phone] Eileen Good MA [address] [place] [address] [address] [place] [address] Covid-19 Home Monitoring (non-responder) Social History Tobacco Use Types Packs/Day Years [...] on file 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 Telephonic outreach attempted to assess patient???s symptoms. Home Monitoring symptom questionnaire was not completed today, because the patient could not be reached. Symptom Questionnaire to be completed by patient tomorrow. documented in this encounter Plan of Treatment Not on file documented as of this encounter Visit Diagnoses Not on filedocumented in this encounter
--- OUTSIDE RECORDS SUMMARY | 2024-09-03 19:39 | XMS_ITS | Encounter Summary ---
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 Gender Identity Female 03/27/2020 5:01 PM CDT Sexual Orientation Lesbian 03/27/2020 5: 01 PM CDT documented as of this encounter Medications at Time of Discharge cyclobenzaprine (FLEXERIL) 10 mg tabletIndications:M uscle spasm Take 1 tablet (10 mg total) by mouth 3 (three) times a day as needed for muscle spasms 90 tablet 1 01/21/20 21 albuterol (PROAIR RESPICLICK) 90 mcg/actuation inhaler 2 puffs every 4 (four) hours as needed 0 05/18/20 21 albuterol 2.5 mg /3 mL (0.083 %) nebulizer solutionIndications :Moderate persistent asthma with exacerbation Take 3 mL (2.5 mg total) by nebulization every 6 (six) hours as needed for shortness of breath 280 mL 3 1 05/11/20 22 cetirizine (ZyrTEC) 10 mg tabletIndications:S easonal allergic rhinitis due to pollen Take 1 tablet (10 mg total) by mouth daily 30 tablet 5 0 05/13/20 22 EPINEPHrine 0.3 mg/0.3 mL auto-injection syringeIndications: Anaphylaxis Inject 0.3 mL (0.3 mg total) into the muscle as instructed as needed for anaphylaxis Call 911 after use. 1 Syringe 5 1 01/26/20 22 escitalopram (LEXAPRO) 10 mg tabletIndications:M oderate episode of recurrent major depressive disorder (HCC) Take 1 tablet (10 mg total) by mouth daily 30 tablet 5 0 01/29/20 21 HYDROcodone-acetami nophen (NORCO) 5-325 mg per tabletIndications:P ain Take 1 tablet by mouth every 8 (eight) hours as needed for pain 90 tablet 1 12/13/19 21 ibuprofen (ADVIL,MOTRIN) 800 mg tablet Take 1 tablet by mouth every 6 (six) hours as needed 1 12/19/19 22 methylPREDNISolone (MEDROL DOSEPACK) 4 mg DosepackIndications :Primary osteoarthritis involving multiple joints Take as directed on package. 21 tablet 1 04/16/20 21 montelukast (SINGULAIR) 10 mg tabletIndications:S easonal allergic rhinitis due to pollen Take 1 tablet (10 mg total) by mouth nightly 30 tablet 5 0 01/29/20 21 nystatin 100,000 unit/mL suspension Qid 0 06/09/[address] (PROTONIX) 40 mg EC tabletIndications:G astroesophageal reflux disease with esophagitis without hemorrhage Take 1 tablet (40 mg total) by mouth daily 30 tablet 5 0 06/23/20 TiZANidine (ZANAFLEX) 4 mg capsuleIndications: Muscle pain Take 1 capsule (4 mg total) by mouth 3 (three) times a day 90 capsule 11 05/18/20 documented as of this encounter Plan of Treatment Not on file documented as of this encounter Procedures Procedure Name Priority Date/Time Associated Diagnosis Comments GENERAL RADIOLOGY REPORT 12/31/2020 12:00 AM CDT SCREENING MAMMOGRAM BILATERAL W DARREN 12/10/2020 8:52 AM CDT documented in this encounter Results * GENERAL RADIOLOGY REPORT (12/31/2020 12:00 AM CDT) Anatomical Region Laterality Modality Radiographic Dulce ging Narrative 12/31/2020 12:00 AM CDT Ordered by an unspecified provider. us Historical Provider MD ABBASI XR PROCEDURES Final R esult * Screening Mammogram Bilateral W Darren (12/10/2020 8:52 AM CDT) Anatomical Region Laterality Modality Breast Bilateral Mammography 12/10/2020 9:02 AM CDT Narrative 12/31/2020 3:41 PM CDT Patient Name: MAX DE LA GARZA ?Ordering Dr: Brijesh Lynch MD ?? D.O.B: 1970 ? Exam Date: 12/10/20 ?? 0852 ?? Age: 50 ?Sex: Female ? MR#: [id number] ?? Loc: ? RADIOLOGY REPORT ?? Order #[id number] ?? Breast [facility] ? Traci Bilat Screening 3D ? Signed ?- MG ?? BILATERAL DIGITAL SCREENING MAMMOGRAM 3D/2D WITH MEDIOLATERAL OBLIQUE ?? CRANIOCAUDAL: 12/10/2020 ?? The study was acquired using full field digital technology and interpreted from ?soft copy. ?2D digital mammographic views, as well as 3D digital tomosynthesis were ?? performed in the CC and MLO projections. ? CLINICAL: New baseline screening mammogram. ?? No current breast complaints. ??No ?personal history of breast cancer. ??Mother with breast cancer. ? COMPARISONS: No prior exams were available for comparison. ? BREAST TISSUE: There are scattered areas of fibroglandular density. ? FINDINGS: ??There multiple benign-appearing oval circumscribed masses within ?? both breasts. ??Two of these masses in the right breast demonstrate coarse ?? benign-appearing calcifications, suggesting involuting fibroadenomas. ??These ?? masses are most consistent with benign entities (i.e. fibroadenomas or cysts) ?? based on their morphology, multiplicity, and bilaterality. ??No suspicious ?? masses, suspicious calcifications, or other suspicious findings are seen in ?? either breast. ? IMPRESSION: BI-RAD 2 ??BENIGN ?? There is no mammographic evidence of malignancy. A 1 year screening mammogram ?? is recommended. ? The patient has been or will be contacted. ? We recommend annual screening mammography for women at average risk of breast ?? cancer beginning at age 40, based on guidelines of the [employer] ?? [employer] (ACR Practice Parameter for the Performance of Screening and ?? Diagnostic Mammography) and [employer] ?? [employer]necologists. For women with an elevated risk of breast cancer, please refer ?? to the ACR Practice Parameter for specific screening recommendations. ? The patient will be entered into a reminder system with a target due date of 1 ?? year for her next screening exam. ? Electronically signed by: ?Duane Mejía M.D. ? /:12/31/2020 15:41:53 ? Shank Faker: Inessa Collier, [facility] ?? letter sent: Normal Exam ? Reading location: ?? BI-RADS: 2 Benign ? REPORT ELECTRONICALLY SIGNED IN OTHER VENDOR SYSTEM ?? Resulting Agency Comment O Procedure Note Duane Mejía MD - 12/31/2020 Patient Name: MAX DE LA GARZA Dr: Brijesh Lynch MD D.O.B: 1970 Exam Date: 12/10/20851 Age: 50 Sex: Female MR#: [id number] Loc: RADIOLOGY REPORT Order #[id number] [facility] Traci Bilat Screening 3D Signed - MG BILATERAL DIGITAL SCREENING MAMMOGRAM 3D/2D WITH MEDIOLATERAL OBLIQUE CRANIOCAUDAL: 12/10/2020 The study was acquired using full field digital technology andinterpreted from soft copy. 2D digital mammographic views, as well as 3D digital tomosynthesis were performed in the CC and MLO projections. CLINICAL: New baseline screening mammogram. No current breastcomplaints. No personal history of breast cancer. Mother with breast cancer. COMPARISONS: No prior exams were available for comparison. BREAST TISSUE: There are scattered areas of fibroglandular density. FINDINGS: There multiple benign-appearing oval circumscribed masseswithin both breasts. Two of these masses in the right breast demonstrate coarse benign-appearing calcifications, suggesting involuting fibroadenomas.These masses are most consistent with benign entities (i.e. fibroadenomas orcysts) based on their morphology, multiplicity, and bilaterality. No suspicious masses, suspicious calcifications, or other suspicious findings are seenin either breast. IMPRESSION: BI-RAD 2 BENIGN There is no mammographic evidence of malignancy. A 1 year screeningmammogram is recommended. The patient has been or will be contacted. We recommend annual screening mammography for women at average risk ofbreast cancer beginning at age 40, based on guidelines of the [employer] (ACR Practice Parameter for the Performance of Screening and Diagnostic Mammography) and [employer]. For women with an elevated risk of breast cancer, pleaserefer to the ACR Practice Parameter for specific screening recommendations. The patient will be entered into a reminder system with a target due dateof 1 year for her next screening exam. Electronically signed by: Duane Mejía M.D., md/:12/31/2020 15:41:53 Shank Faker: Inessa Collier, [facility] letter sent: Normal Exam Reading location: BI-RADS: 2 Benign REPORT ELECTRONICALLY SIGNED IN OTHER VENDOR SYSTEM us Brijesh Lynch MD IMG MAMMO PROCEDURES Final Resu lt documented in this encounter Visit Diagnoses Not on filedocumented in this encounter
--- OUTSIDE RECORDS SUMMARY | 2024-09-03 19:39 | XMS_ITS | Encounter Summary ---
Author Organization [facility] Medical Group Address [address] [place] [address] Care Team Providers Care Supply Chain Tech Name Role Phone Unavailable Primary Care Provider Unavailabl e Reason for Visit * Reason Onset Date Comments Covid-19 Home Monitoring 04/21/2021 Encounter Details Date Type Department Care Team (Late st Contact Info) Description 04/21/2021 Telephone [facility] Accountable Care Organization [address] [place] [address] Pineda Tuttle MA [address] [place] [address] Covid-19 Home Monitoring Social History Tobacco Use [...] on file 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
--- OUTSIDE RECORDS SUMMARY | 2024-09-03 19:39 | XMS_ITS | Encounter Summary ---
Author Organization [facility] Medical [facility] Address [address] [place] [address] Care Team Providers Care Manganese Breaker Name Role Phone Unavailable Primary Care Provider Unavailabl e Reason for Visit * Reason Comments Follow-up oral trush Encounter Details Date Type Department Care Team (Latest Contact Info) Description 07/10/2020 11:00 AM CHARGE OPERATOR Office Visit [facility] [address] [place] [address] Brijesh Lynch MD [address] [place] [address] Gastroesophageal reflux disease with esophagitis without hemorrhage (Primary Dx); Seasonal allergic rhinitis due to pollen; Lumbar back pain; Recurrent major depressive disorder, in full remission (CMS/HCC); Mixed conductive and sensorineural hearing loss of both ears; Lumbar back pain with radiculopathy affecting left lower extremity Social History Tobacco Use Types Packs/Day Years [...] on file 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 Gender Identity Female 03/27/2020 5:01 PM CDT Sexual Orientation Lesbian 03/27/2020 5: 01 PM CDT documented as of this encounter Last Filed Vital Signs Vital Sign Reading Time Taken Comments Blood Pressure 130/80 07/10/2020 11:33 AM CHARGE OPERATOR Pulse 75 07/10/2020 11:33 AM CHARGE OPERATOR Temperature 36.5 ??C (97.7 ??F) 07/10/2020 11:[address] Respiratory Rate 18 07/10/2020 11:33 AM CHARGE OPERATOR Oxygen Saturation 99% 07/10/2020 11:33 AM CHARGE OPERATOR Inhaled Oxygen Concentration - - Weight 85.7 kg (189 lb) 07/10/2020 11:33 AM CHARGE OPERATOR Height 167.6 cm (5' 6 ) 07/10/2020 11:33 AM CHARGE OPERATOR Body Mass Index 30.51 07/10/2020 11:33 AM CHARGE OPERATOR documented in this encounter Ordered Prescriptions Prescription Sig Dispense Quantity Refills Last Filled Start Date End Date HYDROcodone-acetam inophen (NORCO) 5-325 mg per tabletIndications: Pain Take 1 tablet by mouth every 8 (eight) hours as needed for pain 90 tablet 07/10/2020 1 cetirizine (ZyrTEC) 10 mg tabletIndications: Seasonal allergic rhinitis due to pollen Take 1 tablet (10 mg total) by mouth daily 30 tablet 5 07/10/2020 2 montelukast (SINGULAIR) 10 mg tabletIndications: Seasonal allergic rhinitis due to pollen Take 1 tablet (10 mg total) by mouth nightly 30 tablet 5 07/10/2020 1 cetirizine (ZyrTEC) 10 mg tabletIndications: Seasonal allergic rhinitis due to pollen Take 1 tablet (10 mg total) by mouth daily 30 tablet 5 07/10/[address] (PROTONIX) 40 mg EC tabletIndications: Gastroesophageal reflux disease with esophagitis without hemorrhage Take 1 tablet (40 mg total) by mouth daily 30 tablet 5 07/10/2020 1 documented in this encounter Progress Notes * Brijesh Lynch MD - 07/10/2020 11:00 AM CST Images from the original note were not included. Subjective/Objective Patient ID: Chrissy Kilgore is a 50 y.o. female. Visit Date: 07/10/2020 Chief Complaint Follow-up (oral trush ) HPI Returns to the office for repeat evaluation. States that the gerd is getting worse and she has burning in the chest. States that she has been having allergy symptoms and continues to have the lumbar back pain. The asthma is under control. Taking her meds as directed. Hearing loss Review of Systems Constitutional: Negative for activity change. HENT: Negative for congestion. Eyes: Negative for visual disturbance. Respiratory: Negative for cough and chest tightness. Cardiovascular: Negative for chest pain and leg swelling. Gastrointestinal: Negative for abdominal pain, blood in stool, constipation, diarrhea and nausea. Gerd Genitourinary: Negative for difficulty urinating. Musculoskeletal: Positive for back pain. Negative for arthralgias and gait problem. Skin: Negative for rash. Neurological: Negative for headaches. Psychiatric/Behavioral: Negative for sleep disturbance. The patient is not nervous/anxious. Physical Exam Vitals signs reviewed. Constitutional: General: She is not in acute distress. Appearance: She is well-developed. HENT: Head: Normocephalic. Right Ear: External ear normal. Left Ear: External ear normal. Eyes: Conjunctiva/sclera: Conjunctivae normal. Pupils: Pupils are equal, round, and reactive to light. Neck: Musculoskeletal: Neck supple. Thyroid: No thyromegaly. Comments: ROM appropriate Cardiovascular: Rate and Rhythm: Normal rate and regular rhythm. Heart sounds: Normal heart sounds. No murmur. No friction rub. No gallop. Pulmonary: Effort: Pulmonary effort is normal. Breath sounds: Normal breath sounds. Abdominal: General: Bowel sounds are normal. There is no distension. Palpations: Abdomen is soft. Tenderness: There is no abdominal tenderness. Musculoskeletal: Comments: Lumbar back pain to palpation and rom Skin: General: Skin is warm and dry. Capillary Refill: Capillary refill takes less than 2 seconds. Neurological: Mental Status: She is alert and oriented to person, place, and time. Psychiatric: Behavior: Behavior normal. Assessment/Plan Diagnoses and all orders for this visit: Gastroesophageal reflux disease with esophagitis without hemorrhage (K21.00) (Primary) Comments: condition acute. protonix Seasonal allergic rhinitis due to pollen (J30.1) Comments: condition chronic and not controlled. zyrtec and singular Lumbar back pain (M54.5) Comments: coniton chronic and stable refill meds. 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 refer to dr. tacos Lynch MD GE OPERATOR documented in this encounter Plan of Treatment Not on file documented as of this encounter Visit Diagnoses Diagnosis Gastroesophageal reflux disease with esophagitis without hemorrhage- Primary Seasonal allergic rhinitis due to pollen Lumbar back pain Lumbago Recurrent major depressive disorder, in full remission ([facility]) (HCC) Mixed conductive and sensorineural hearing loss of both ears Lumbar back pain with radiculopathy affecting left lower extremity documented in this encounter Discontinued Medications Medication Sig Discontinue Reason Start Date End Da te fluconazole (DIFLUCAN) 150 mg tabletIndications:Yeast vaginitis Take 1 tablet (150 mg total) by mouth as directed Take one tab now. Repeat on day 3 Therapy completed 06/02/2020 07/10/2020 HYDROcodone-acetaminoph en (NORCO) 5-325 mg per tabletIndications:Pain Take 1 tablet by mouth every 8 (eight) hours as needed for pain Reorder 05/22/2020 07/10/2020 cetirizine (ZyrTEC) 10 mg tabletIndications:Seaso nal allergic rhinitis due to pollen Take 1 tablet (10 mg total) by mouth daily Reorder 07/10/2020 07/10/2020 documented as of this encounter
--- OUTSIDE RECORDS SUMMARY | 2024-09-03 19:39 | XMS_ITS | Encounter Summary ---
Author Organization [facility] Medical Group Address [address] [place] [address] Care Team Providers Care Memory Care Program Resident Name Role Phone Unavailable Primary Care Provider Unavailabl e Encounter Details Date Type Department Care Team (Late st Contact Info) Description 04/19/2021 Orders Only [facility] Accountable Care Organization [address] [place] [address] Priti Santillan RN [address] [place] [address] [address] [facility] [address] [place] [address] Social History Tobacco Use Types Packs/Day Years [...] on file 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
--- OUTSIDE RECORDS SUMMARY | 2024-09-03 19:39 | XMS_ITS | Encounter Summary ---
Author Organization [facility] Address [address] [place] [address] Care Team Providers Care Clinic Assistant Name Role Phone Unavailable Primary Care Provider Unavailabl e Reason for Visit * Reason Comments Depression wants back on med, n ot lexapro Anxiety Back Pain chronic low back caitie n, wants flexeril Encounter Details Date Type Department Care Team ([facility] st Contact Info) Description 01/28/2021 8:30 AM CDT Office Visit [facility] [address] [place] [address] Brijesh Lynch MD [address] [place] [address] [address] [place] [address] Lumbar back pain (Primary Dx); Seasonal allergic rhinitis due to pollen; Gastroesophageal reflux disease with esophagitis without hemorrhage; Moderate episode of recurrent major depressive disorder (CMS/HCC); Mild intermittent asthma without complication Social History Tobacco Use Types Packs/Day Years [...] more points, staff should administer the PHQ-9) 0 12/24/2020 Comments Unknown Sex and Gender Information Value Date Recorded Sex Assigned at Not on file 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 Gender Identity Female 03/27/2020 5:01 PM CDT Sexual Orientation Lesbian 03/27/2020 5: 01 PM CDT documented as of this encounter Last Filed Vital Signs Vital Sign Reading Time Taken Comments Blood Pressure 132/90 01/28/2021 8:34 AM CDT Pulse 84 01/28/2021 8:34 AM CDT Temperature 36.4 ??C (97.6 ??F) 01/28/2021 8:34 AM CD T Respiratory Rate 16 01/28/2021 8:34 AM CDT Oxygen Saturation - - Inhaled Oxygen Concentration - - Weight 87.1 kg (192 lb) 01/28/2021 8:34 AM CDT Height - - Body Mass Index 31 12/24/2020 8:32 AM CDT documented in this encounter Ordered Prescriptions Prescription Sig Dispense Quantity Refills Last Filled Start Date End Date methylPREDNISolone (MEDROL DOSEPACK) 4 mg DosepackIndication s:Lumbar back pain Take as directed on package. 21 tablet 01/28/2021 1 traMADoL (ULTRAM) 50 mg tabletIndications: Lumbar back pain Take 1 tablet (50 mg total) by mouth every 8 (eight) hours as needed for pain 90 tablet 01/28/2021 1 sertraline (ZOLOFT) 50 mg tabletIndications: Moderate episode of recurrent major depressive disorder (HCC) Take 1 tablet (50 mg total) by mouth daily 30 tablet 5 01/28/2021 1 cetirizine (ZyrTEC) 10 mg tabletIndications: Seasonal allergic rhinitis due to pollen Take 1 tablet (10 mg total) by mouth daily 30 tablet 50 01/28/2021 2 montelukast (SINGULAIR) 10 mg tabletIndications: Seasonal allergic rhinitis due to pollen Take 1 tablet (10 mg total) by mouth nightly 30 tablet 5 01/28/2021 2 documented in this encounter Progress Notes * Brijesh Lynch MD - 01/28/2021 8:30 AM CDT Images from the original note were not included. Subjective/Objective Patient ID: Chrissy Kilgore is a 50 y.o. female. Visit Date: 01/28/2021 Chief Complaint Depression (wants back on med, not lexapro), Anxiety, and Back Pain (chronic low back pain, wants flexeril) HPI Returns to the office for repeat evaluation. States that the depression is getting worse. States that she has been having anxiety as well. The lumbar back pain continue and is getting worse. The asthma is under control. The gerd is under control. [...] Negative for sleep disturbance. The patient is nervous/anxious. Deprressed Physical Exam Vitals reviewed. Constitutional: General: She [...] tenderness. Musculoskeletal: Cervical back: Neck supple. Comments: Lumbar back pain to palpation and rom. Skin: General: Skin is warm and dry. Capillary Refill: Capillary refill takes less than 2 seconds. Neurological: Mental Status: She is alert and oriented to person, place, and time. Psychiatric: Behavior: Behavior normal. Assessment/Plan Diagnoses and all orders for this visit: Lumbar back pain (M54.5) (Primary) Comments: condition chronic with exacerbation. kenalog 80 mg, medrol, tramadol 50 mg tid Seasonal allergic rhinitis due to pollen (J30.1) Comments: condition chronic and at goal. zyrtec and singular Gastroesophageal reflux disease with esophagitis without hemorrhage (K21.00) Comments: condition chronic and at goal. continue the protonix Moderate episode of recurrent major depressive disorder (CMS/HCC) (F33.1) Comments: condotin chronic with exacerbation. start zoloft 50 mg per day Mild intermittent asthma without complication (J45.20) Comments: condition chronic and at goal continue the inhaler prn. Other orders - montelukast (SINGULAIR) 10 mg tablet; Take 1 tablet (10 mg total) by mouth nightly - cetirizine (ZyrTEC) 10 mg tablet; Take 1 tablet (10 mg total) by mouth daily - pantoprazole DR (PROTONIX) 40 mg EC tablet; Take 1 tablet (40 mg total) by mouth daily Brijesh Lynch MD documented in this encounter Plan of Treatment Not on file documented as of this encounter Visit Diagnoses Diagnosis Lumbar back pain- Primary Lumbago Seasonal allergic rhinitis due to pollen Gastroesophageal reflux disease with esophagitis without hemorrhage Moderate episode of recurrent major depressive disorder (HCC) Mild intermittent asthma without complication documented in this encounter Administered Medications Inactive Administered Medications - up to 3 most recent administrations Medication Order MAR Action Action Date Dose Rate Site triamcinolone (KENALOG) 40 mg/mL injection 80 mg 80 mg, intramuscular, Once, On Tue01/28/21 at 0945, For 1 doseIndications:Lumbar back pain Given 01/28/2021 9:11 AM CDT 80 mg Other (Comment) documented in this encounter Discontinued Medications Medication Sig Discontinue Reason Start Date End Da te HYDROcodone-acetaminophe n (NORCO) 5-325 mg per tabletIndications:Pain Take 1 tablet by mouth every 8 (eight) hours as needed for pain 12/15/2020 01/28/2021 HYDROcodone-acetaminophe n (NORCO) 5-325 mg per tabletIndications:Pain Take 1 tablet by mouth every 8 (eight) hours as needed for pain 01/12/2021 01/28/2021 escitalopram (LEXAPRO) 10 mg tabletIndications:Modera te episode of recurrent major depressive disorder (HCC) Take 1 tablet (10 mg total) by mouth daily 05/08/2020 01/28/2021 montelukast (SINGULAIR) 10 mg tabletIndications:Season al allergic rhinitis due to pollen Take 1 tablet (10 mg total) by mouth nightly Reorder 07/10/2020 01/28/2021 cetirizine (ZyrTEC) 10 mg tablet Take 10 mg by mouth daily Reorder 01/28/2021 documented as of this encounter Historical Medications * This list may reflect changes made after this encounter. cetirizine (ZyrTEC) 10 mg tablet Take 10 mg by mouth daily 01/28/2021 acetaminophen-cod eine (TYLENOL with CODEINE #3) 300-30 mg per tablet TAKE 1 TABLET BY MOUTH EVERY 6 TO 8 HOURS NEEDED FOR PAIN 12/17/2020 04/16/2021 added in this encounter
--- OUTSIDE RECORDS SUMMARY | 2024-09-03 19:39 | XMS_ITS | Encounter Summary ---
Author Organization [facility] Address [address] [place] [address] Phone Care Team Providers Care Body Shop Technician Name Role Phone Unavailable Primary Care Provider Unavailabl e Reason for Referral * (Routine) - Closed Specialty Diagnoses / Procedures Referred By Contac t Referred To Contact Diagnoses PCO (posterior capsular opacification), left Procedures Yag Capsulotomy - OS - Left Eye Mary Ann Webster MD [address] [place] [address] Phone: tel: fax: [facility] (All Locations) Referral ID Status Reason Start Date Expiration Date Visits Re quested Visits Authorized [id number] Closed 09/15/2020 10/15/2021 1 1 WELLNESS Reason for Visit * Reason Comments Decreased Visual Acuity Encounter Details Date Type Department Care Team (Late st Contact Info) Description 09/15/2020 8:00 AM RN WELLNESS Office Visit [facility] Ophthalmology [facility] [place] [id number] Mary Ann Webster MD [address] [place] [address] PCO (posterior capsular opacification), left (Primary Dx); Epiretinal membrane (ERM) of both eyes; Age-related nuclear cataract of right eye Social History Tobacco Use Types Packs/Day Years [...] on file 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 RN WELLNESS Gender Identity Female 03/27/2020 5:01 PM CDT Sexual Orientation Lesbian 03/27/2020 5 :01 PM CDT documented as of this encounter Patient Instructions * Patient Instructions* Mary Ann Webster MD - 09/15/2020 8:00 AM RN WELLNESS Dilation instructions Please refer to your Dilating Eyedrops brochure for instructions regarding dilation. WELLNESS documented in this encounter Progress Notes * Mary Ann Webster MD - 09/15/2020 8:00 AM CST Assessment/Plan Diagnoses and all orders for this visit: PCO (posterior capsular opacification), left (Primary) Assessment & Plan: PCO OS VS with glare Aware will not change ERM Plan for YAG OS today Follow 4 weeks, then to Dr. Moscoso thereafter Orders: - Yag Capsulotomy - OS - Left Eye Epiretinal membrane (ERM) of both eyes Assessment & Plan: ERM OU Observing with Dr. Jay Age-related nuclear cataract of right eye Assessment & Plan: Not yet VS BAT 20/[address] Moscoso for her routine eye care - back to me when VS I have seen/examined the patient and I agree with the findings/plan of the Resident/Fellow WELLNESS documented in this encounter Miscellaneous Notes * Assessment & Plan Note - Mary Ann Webster MD - 09/15/2020 8:14 AM RN WELLNESS Associated Problem(s): Epiretinal membrane (ERM) of both eyes ERM OU Observing with Dr. Jay WELLNESS * Assessment & Plan Note - Mary Ann Webster MD - 09/15/2020 8:13 AM RN WELLNESS Associated Problem(s): PCO (posterior capsular opacification), left PCO OS VS with glare Aware will not change ERM Plan for YAG OS today Follow 4 weeks, then to Dr. Moscoso thereafter WELLNESS * Assessment & Plan Note - Mary Ann Webster MD - 09/15/2020 8:13 AM RN WELLNESS Associated Problem(s): Pseudophakia of right eye Not yet VS BAT 20/[address] Moscoso for her routine eye care - back to me when VS WELLNESS documented in this encounter Plan of Treatment Not on file documented as of this encounter Procedures Procedure Name Priority Date/Time Associated Diagnosis Comments YAG CAPSULOTOMY - OS - LEFT EYE Routine 09/15/2020 8:45 AM RN WELLNESS PCO (posterior capsular opacification), left documented in this encounter Results * Yag Capsulotomy - OS - Left Eye (09/15/2020 8:45 AM RN WELLNESS) Anatomical Region Laterality Modality Head Laser Room Narrative 09/15/2020 8:45 AM RN WELLNESS Time Out Informed consent was obtained after all risks, benefits and alternatives were explained to the patient. The patient understood, agreed and wished to proceed. Timeout was completed verifing the patient, procedure, laterality and allergies. Pre-laser Medication Anesthetic drops used during this laser treatment included: proparacaine. Laser Capsulotomy 15 applications were applied to the operative eye, the average power was 1 mW. The total energy was 15. E-Prescribed Medication The patient tolerated the procedure, there were no complications during today's treatment. The patient will use the prescribed medication and was instructed to call immediately for any redness, vision loss, pain, swelling, and draining or pus-like material, fevers, or any other problems. The patient was instructed regarding their follow-up appointment. The patient received written and/or verbal post procedure care education. Mary Ann Webster MD OPHTH CLINIC PROCEDURES Final Result documented in this encounter Visit Diagnoses Diagnosis PCO (posterior capsular opacification), left- Primary Unspecified after-cataract Epiretinal membrane (ERM) of both eyes Age-related nuclear cataract of right eye documented in this encounter Eye Exam Visual Acuity (Snellen - Linear) Right eye Left eye Dist cc 20/20 20/25 Tonometry (Applanation, 8:12 AM) Right eye Left eye Pressure 21 20 Pupils Dark Light Shape React APD Right eye 4 3 Round Brisk None Left eye 4 3 Round Brisk None Neuro/Psych Oriented x3: Yes Mood/Affect: Normal Dilation Both eyes: 1.0% Mydriacyl, 2 .5% Phenylephrine @ 8:12 AM Glare Testing Medium High Right eye 20/20 20/20 Left eye Slit Lamp Exam Right eye Left eye Lids/Lashes Normal Normal Conjunctiva/Sclera White and quiet White and leland et Cornea Clear Clear Anterior Chamber Deep and quiet Deep and quiet Iris Round Round Lens 1+NS PCIOL, 1-2+PCO Vitreous PVD, moderate syneresis/floaters PVD, moderate syneresis/floaters Fundus Exam Right eye Left eye Disc Normal Normal C/D Ratio 0.5 0.4 Macula ERM superiorly ERM Vessels Normal Normal Periphery retina flat retina flat
--- OUTSIDE RECORDS SUMMARY | 2024-09-03 19:39 | XMS_ITS | Encounter Summary ---
Author Organization [facility] Address [address] [place] [address] Phone Care Team Providers Care Electromechanical Equipment Tester Name Role Phone Unavailable Primary Care Provider Unavailabl e Reason for Visit * Reason Onset Date Comments Scheduling Appointments 12/31/2020 Encounter Details Date Type Department Care Team (Late st Contact Info) Description 12/31/2020 Telephone [facility] Ophthalmology [address] [facility] [address] [place] [address] Basilio Jay MD PhD [address] [facility] [address] [place] [address] Scheduling Appointments Social History Tobacco Use Types Packs/Day Years [...] on file 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
--- OUTSIDE RECORDS SUMMARY | 2024-09-03 19:39 | XMS_ITS | Encounter Summary ---
Author Organization [facility] Address [address] [address] Care Team Providers Care Rental Manager Name Role Phone Unavailable Primary Care Provider Unavailabl e Reason for Referral * Consultation (Routine) - Closed Specialty Diagnoses / Procedures Referred By Sharlene t Referred To Contact Otolaryngology Diagnoses Mixed conductive and sensorineural hearing loss, bilateral Brijesh Lynch MD Phone: tel: fax: [facility] [address] [place] [address] Phone: tel: fax: Referral ID Status Reason Start Date Expiration Date V isits Requested Visits Authorized [id number] Closed Specialty Services Required 07/28/2020 08/27/2021 1 1 Question Answer Please select the performing region: [facility] [[id number]] Please select the performing department: [facility] [[id number]] # of visits: 1 Comments . Martin guillermo [facility] (internal) dx: H90.6 mixed conductive and sensorineural hearing loss ?? 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 F DEVELOPMENT EDUCATOR * Telephone Encounter - Barb Morales - 07/28/2020 12:42 PM CST Pt. Stated she was suppose to be referred to an ear nose and throat physician. Please put referral in for dr. Martin guillermo [facility] (internal) dx: H90.6 mixed conductiveand sensorineural hearing loss Pt. Aware they will call her to schedule F DEVELOPMENT EDUCATOR documented in this encounter Plan of Treatment Scheduled Referrals Name Type Priority Associated Diagnoses Orde r Schedule Ambulatory referral to ENT Outpatient Referral Routine Mixed conductive and sensorineural hearing loss, bilateral 1 Occurrences starting 07/28/2020 until 01/26/2021 documented as of this encounter Visit Diagnoses Diagnosis Mixed conductive and sensorineural hearing loss, bilateral- Primary Mixed hearing loss, bilateral documented in this encounter
--- OUTSIDE RECORDS SUMMARY | 2024-09-03 19:39 | XMS_ITS | Encounter Summary ---
Author Organization [facility] Medical Group Address [address] [address] Care Team Providers Care Guard Immigration Name Role Phone Unavailable Primary Care Provider Unavailabl e Reason for Referral * Pulmonology (Routine) - Closed Specialty Diagnoses / Procedures Referred By Sharlene angulo Referred To Contact Diagnoses Moderate persistent asthma with exacerbation Procedures Miscellaneous DME Brijesh Lynch MD Phone: tel: fax: Referral ID Status Reason Start Date Expiration Date Visits Re quested Visits Authorized [id number] Closed 10/24/2020 11/23/2021 1 1 KE PROGRAM COORDINATOR * Diagnostic Imaging (Routine) - Closed Specialty Diagnoses / Procedures Referred By Sharlene angulo Referred To Contact Diagnoses Right elbow pain Procedures XR Elbow Right 3+ Vw Brijesh Lynch MD Phone: tel: fax: [facility] [address] [place] [address] Referral ID Status Reason Start Date Expiration Date Visits Re quested Visits Authorized [id number] Closed 10/24/2020 11/23/2021 1 1 KE PROGRAM COORDINATOR Reason for Visit * Reason Comments Shortness of Breath Elbow Pain rt Encounter Details Date Type Department Care Team (Late st Contact Info) Description 10/24/2020 9:45 AM STROKE PROGRAM COORDINATOR Telemedicine [facility] Medical [facility] Family Medicine [address] [place] [address] Brijesh Lynch MD [address] [place] [id number] Moderate persistent asthma with exacerbation (Primary Dx); Recurrent major depressive disorder, in full remission (CMS/HCC); Gastroesophageal reflux disease with esophagitis without hemorrhage; Right elbow pain; Muscle pain Social History Tobacco Use Types [...] on file 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 STROKE PROGRAM COORDINATOR Gender Identity Female 03/27/2020 5:01 PM CDT Sexual Orientation Lesbian 03/27/2020 5: 01 PM CDT documented as of this encounter Ordered Prescriptions Prescription Sig Dispense Quantity Refills Last Filled Start Date End Date EPINEPHrine 0.3 mg/0.3 mL auto-injection syringeIndication s:Anaphylaxis Inject 0.3 mL (0.3 mg total) into the muscle as instructed as needed for anaphylaxis Call 911 after use. 1 Syringe 5 10/24/2020 2 TiZANidine (ZANAFLEX) 4 mg capsuleIndication s:Muscle pain Take 1 capsule (4 mg total) by mouth 3 (three) times a day 90 capsule 11 10/24/2020 1 albuterol 2.5 mg /3 mL (0.083 %) nebulizer solutionIndicatio ns:Moderate persistent asthma with exacerbation Take 3 mL (2.5 mg total) by nebulization every 6 (six) hours as needed for shortness of breath 280 mL 3 10/24/2020 2 documented in this encounter Progress Notes * Brijesh Lynch MD - 10/24/2020 9:45 AM CST Images from the original note were not included. Subjective/Objective Patient ID: Max De La Garza is a 50 y.o. female. Visit Date: 10/24/2020 This was a telemedicine visit with Max De La Garza alone which took place via real-time video connection with [employer]. During the visit, I was located in the office and the patient was located at home in the state of [place]. The patient visit started at 1010 and ended at 1020. The patient has been informed that the [...] responsible for any applicable copayments. Chief Complaint Shortness of Breath and Elbow Pain (rt) HPI Returns to the office for repeat evaluation. States that she has been having asthma exacerbation. States that she has been using the neb machine at home. Was seen in the er. Also has bene having right elbow pain from moving and the pain is getting worse. The gerd is under control. The depressoin isunder control. Needs refill of muscle relaxer but hte flexeril is no longer working. Review of Systems Constitutional: Negative for activity change. HENT: Negative for congestion. Eyes: Negative for visual disturbance. Respiratory: Positive for cough, shortness of breath and wheezing. Negative for chest tightness. Cardiovascular: Negative for chest pain and leg swelling. Gastrointestinal: Negative for abdominal pain, blood in stool, constipation, diarrhea and nausea. Genitourinary: Negative for difficulty urinating. Musculoskeletal: Negative for arthralgias, back pain and gait problem. Rt elbow pain Skin: Negative for rash. Neurological: Negative for headaches. Psychiatric/Behavioral: Negative for sleep disturbance. The patient is not nervous/anxious. Physical Exam Constitutional: Appearance: She is well-developed. HENT: Head: Normocephalic and atraumatic. Pulmonary: Effort: Pulmonary effort is normal. Musculoskeletal: General: Normal range of motion. Skin: General: Skin is warm and dry. Neurological: General: No focal deficit present. Mental Status: She is alert and oriented to person, place, and time. Psychiatric: Mood and Affect: Mood normal. Behavior: Behavior normal. Assessment/Plan Diagnoses and all orders for this visit: Moderate persistent asthma with exacerbation (J45.41) (Primary) Comments: conditon acute. order home neb machine. epi pen Orders: - albuterol 2.5 mg /3 mL (0.083 %) nebulizer solution; Take 3 mL (2.5 mg total) by nebulization every 6 (six) hours as needed for shortness of breath Recurrent major depressive disorder, in full remission (CMS/[facility]) (F33.42) Comments: conditon chronc stblae continue the lexapro. Gastroesophageal reflux disease with esophagitis without hemorrhage (K21.00) Comments: conditoin chronic stblae continue aleksandra protonix Right elbow pain (M25.521) Comments: condition acute. xray Orders: - XR Elbow Right 3+ Vw; Future Muscle pain (M79.10) Comments: conditon chronci and not controlled. stop the flexeril start tizanadine Brijesh Lynch MD KE PROGRAM COORDINATOR documented in this encounter Plan of Treatment Not on file documented as of this encounter Results * XR Elbow Right 3+ Vw (10/31/2020 8:39 AM STROKE PROGRAM COORDINATOR) Anatomical Region Laterality Modality Upper Extremities, Elbow Right Radiogr aphic Imaging 10/31/2020 4:02 PM STROKE PROGRAM COORDINATOR Narrative 10/31/2020 4:04 PM STROKE PROGRAM COORDINATOR Patient Name: MAX DE LA GARZA ?Ordering Dr: Brijesh Lynch MD ?? D.O.B: 1970 ? Exam Date: 12/21 ?? 0839 ?? Age: 50 ?Sex: Female ? MR#: [id number] ?? Loc: ? RADIOLOGY REPORT ?? Order #[id number] ?? Radiology ? Elbow RT 3 View Min ? Signed ?? EXAM DESCRIPTION: ?? Elbow RT 3 View Min ? REASON FOR STUDY: ?? Right elbow pain x3 weeks. ??History of trauma 17 years ago. ? TECHNIQUE: ?? AP, lateral, and oblique radiographic views acquired of the right ?? elbow. ? COMPARISON: ?? None ? FINDINGS: ? Normal bony alignment. ??No acute fracture seen. 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 ??Small amount heterotopic ossification about the triceps ?? insertion on the olecranon. ??Small amount heterotopic ossification about the ?? radial head is well. ??No effusion is seen. ? IMPRESSION: ?? No acute osseous abnormality. ? THIS IS AN ELECTRONICALLY VERIFIED FINAL REPORT ?? 10/31/2020 4:04 PM - Electronically signed by Will Arce M.D. ?? Will Arce M.D. ? AG ?? D: ??10/31/2020 4:04 PM ?? T: ? Report ID: [id number] ?? Reading Location: ??[id number] ? REPORT ELECTRONICALLY SIGNED IN OTHER VENDOR SYSTEM ?? Resulting Agency Comment O Procedure Note Will Arce MD - 10/31/2020 Patient Name: MAX DE LA GARZA Dr: Brijesh Lynch MD D.O.B: 1970 Exam Date: 10/31/20 0839 Age: 50 Sex: Female MR#: [id number] Loc: RADIOLOGY REPORT Order #[id number] Radiology Elbow RT 3 View Min Signed EXAM DESCRIPTION: Elbow RT 3 View Min REASON FOR STUDY: Right elbow pain x3 weeks. History of trauma 17years ago. TECHNIQUE: AP, lateral, and oblique radiographic views acquired of theright elbow. COMPARISON: None FINDINGS: Normal bony alignment. No acute fracture seen. Mild ulnotrochlear osteoarthritis. Small amount heterotopic ossification about the triceps insertion on the olecranon. Small amount heterotopic ossification aboutthe radial head is well. No effusion is seen. IMPRESSION: No acute osseous abnormality. THIS IS AN ELECTRONICALLY VERIFIED FINAL REPORT 10/31/2020 4:04 PM - Electronically signed by Will Arce M.D. AG T: Report ID: [id number] Reading Location: [place] [address] REPORT ELECTRONICALLY SIGNED IN OTHER VENDOR SYSTEM Brijesh Lynch MD IMG XR PROCEDURES Final Result documented in this encounter Visit Diagnoses Diagnosis Moderate persistent asthma with exacerbation- Primary Unspecified asthma, with exacerbation Recurrent major depressive disorder, in full remission (CMS/HCC) (HCC) Gastroesophageal reflux disease with esophagitis without hemorrhage Right elbow pain Pain in joint, upper arm Muscle pain Unspecified myalgia and myositis Right elbow pain Pain in joint, upper arm documented in this encounter Discontinued Medications Medication Sig Discontinue Reason Start Date End Da te albuterol 2.5 mg /3 mL (0.083 %) nebulizer solution 0.083 % every 6 (six) hours as needed Reorder 10/23/2019 10/24/2020 cyclobenzaprine (FLEXERIL) 10 mg tabletIndications:Lumbar back pain with radiculopathy affecting left lower extremity TAKE 1 TABLET(10 MG) BY MOUTH THREE TIMES DAILY NEEDED FOR MUSCLE SPASMS Alternate therapy 09/30/2020 10/24/2020 chlorzoxazone (PARAFON FORTE) 500 mg tablet TK 1 T PO TID PRF MSP Alternate therapy 04/01/2020 10/24/2020 documented as of this encounter Orders General Supply Count Last Ordered Date First Or dered Date MISCELLANEOUS DME 1 10/24/2020 documented in this encounter
--- OUTSIDE RECORDS SUMMARY | 2024-09-03 19:39 | XMS_ITS | Encounter Summary ---
Author Organization [facility] Healthcare Address [address] [place] [address] Care Team Providers Care Bench Worker Apprentice Name Role Phone Unavailable Primary Care Provider Unavailabl e Reason for Referral * Diagnostic Imaging (Routine) - Closed Specialty Diagnoses / Procedures Referred By Sharlene t Referred To Contact Diagnoses Rotator cuff impingement syndrome of right shoulder Procedures XR Shoulder Right 2 or More Views Luis Manuel Barrientos MD [address] [place] [address] [address] [place] [address] Phone: tel: fax: [address] [address] Referral ID Status Reason Start Date Expiration Date Visits Re quested Visits Authorized [id number] Closed 06/13/2020 07/13/2021 1 1 Encounter Details Date Type Department Care Team (Late st Contact Info) Description 06/17/2020 10:01 AM CDT Hospital Encounter [facility] Luis Manuel Barrientos MD [address] [place] [address] DR [address] [place] [address] Rotator cuff impingement syndrome of right shoulder Social History Tobacco Use Types Packs/Day Years [...] on file 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 BALLOON SANDER Gender Identity Female 03/27/2020 5:01 PM CDT Sexual Orientation Lesbian 03/27/2020 5: 01 PM CDT documented as of this encounter Medications at Time of Discharge albuterol (PROAIR RESPICLICK) 90 mcg/actuation inhaler 2 puffs every 4 (four) hours as needed 10/23/2019 1 albuterol 2.5 mg /3 mL (0.083 %) nebulizer solution 0.083 % every 6 (six) hours as needed 10/23/2019 1 chlorzoxazone (PARAFON FORTE) 500 mg tablet TK 1 T PO TID PRF MSP 04/01/2020 1 cyclobenzaprine (FLEXERIL) 10 mg tabletIndications:L umbar back pain with radiculopathy affecting left lower extremity Take 1 tablet (10 mg total) by mouth 3 (three) times a day as needed for muscle spasms 90 tablet 05/22/2020 0 escitalopram (LEXAPRO) 10 mg tabletIndications:M oderate episode of recurrent major depressive disorder (HCC) Take 1 tablet (10 mg total) by mouth daily 30 tablet 5 05/08/2020 1 fluconazole (DIFLUCAN) 150 mg tabletIndications:Y east vaginitis Take 1 tablet (150 mg total) by mouth as directed Take one tab now. Repeat on day 3 2 tablet 06/02/2020 0 HYDROcodone-acetami nophen (NORCO) 5-325 mg per tabletIndications:P ain Take 1 tablet by mouth every 8 (eight) hours as needed for pain 90 tablet 05/22/2020 0 nystatin 100,000 unit/mL suspension Qid 06/08/2020 1 documented as of this encounter Plan of Treatment Not on file documented as of this encounter Procedures Procedure Name Priority Date/Time Associated Diagnosis Comments XR SHOULDER RIGHT 2 OR MORE VIEWS Schedule Routine, Read Routine (OP Routine) 06/17/2020 10:02 AM CDT Rotator cuff impingement syndrome of right shoulder documented in this encounter Results * XR Shoulder Right 2 or More Views (06/17/2020 10:02 AM CDT) Anatomical Region Laterality Modality Upper Extremities, Shoulder Right Radi ographic Imaging 06/17/2020 1:26 PM CDT Narrative 06/17/2020 1:28 PM CDT Patient Name: MAX DE LA GARZA ?Ordering Dr: Luis Manuel Barrientos MD ?? D.O.B: 1970 ? Exam Date: 06/17/20 ?? 1002 ?? Age: 50 ?Sex: Female ? MR#: [id number] ?? Loc: ? RADIOLOGY REPORT ?? Order #[id number] ?? Radiology ? Shoulder RT 2Vw Min (STANDARD) ? Signed ? EXAM DESCRIPTION: ?? Shoulder RT 2Vw Min (STANDARD) ? REASON FOR STUDY: ?? CONSTANT PAIN X 6 MONTHS WITH LROM, ??NO INJURY ? TECHNIQUE: ?? True AP external rotation, AP internal rotation, scapular Y, ?? axillary lateral radiographs of the shoulder were obtained. ? COMPARISON: ?? None available ? FINDINGS: ?Humeral head is in customary alignment over the glenoid. ??Imaged right ?? hemithorax appears unremarkable. ??There is no evidence of humeral head ?? subluxation or dislocation. ??Minor arthritic changes of the acromioclavicular ?? joint are noted. ? IMPRESSION: ?? Minor arthritic changes of the acromioclavicular joint. ? Otherwise essentially unremarkable radiographs. ? THIS IS AN ELECTRONICALLY VERIFIED FINAL REPORT ?? 06/17/2020 1:28 PM - Electronically signed by Jamar Dupont M.D. ?? Jamar Dupont M.D. ? AT: AT ?? D: ??06/17/2020 1:28 PM ?? T: ??06/17/2020 1:28 PM ? Report ID: [id number] ?? Reading Location: ??[id number] ? REPORT ELECTRONICALLY SIGNED IN OTHER VENDOR SYSTEM ?? Resulting Agency Comment O Procedure Note Jamar Dupont MD - 06/17/2020 Patient Name: MAX DE LA GARZA Dr: Luis Manuel Barrientos MD D.O.B: 1970 Exam Date: 06/17/20 1002 Age: 50 Sex: Female MR#: [id number] Loc: RADIOLOGY REPORT Order #[id number] Radiology Shoulder RT 2Vw Min (STANDARD) Signed EXAM DESCRIPTION: Shoulder RT 2Vw Min (STANDARD) REASON FOR STUDY: CONSTANT PAIN X 6 MONTHS WITH LROM, NO INJURY TECHNIQUE: True AP external rotation, AP internal rotation, scapular Y, axillary lateral radiographs of the shoulder were obtained. COMPARISON: None available FINDINGS: Humeral head is in customary alignment over the glenoid. Imaged right hemithorax appears unremarkable. There is no evidence of humeral head subluxation or dislocation. Minor arthritic changes of theacromioclavicular joint are noted. IMPRESSION: Minor arthritic changes of the acromioclavicular joint. Otherwise essentially unremarkable radiographs. THIS IS AN ELECTRONICALLY VERIFIED FINAL REPORT 06/17/2020 1:28 PM - Electronically signed by Jamar Dupont M.D. AT: AT Report ID: [id number] Reading Location: [place] [address] REPORT ELECTRONICALLY SIGNED IN OTHER VENDOR SYSTEM Luis Manuel Barrientos MD IMG XR PROCEDURES Final Re sult documented in this encounter Visit Diagnoses Diagnosis Rotator cuff impingement syndrome of right shoulder documented in this encounter
--- OUTSIDE RECORDS SUMMARY | 2024-09-03 19:39 | XMS_ITS | Encounter Summary ---
Author Organization [facility] Medical Group Address [address] [facility] [address] [place] [address] Care Team Providers Care Supervisor Filtration Name Role Phone Unavailable Primary Care Provider Unavailabl e Reason for Visit * Reason Comments Migraine left side Cyst Left jaw Hypertension Encounter Details Date Type Department Care Team ([facility] st Contact Info) Description 08/06/2020 3:00 PM SALES REPRESENTATIVE MALT LIQUORS Office Visit [facility] Family Medicine [address] [place] [address] Brijesh Lynch MD [address] [place] [address] Enlarged salivary gland (Primary Dx); Intractable chronic migraine without aura and without status migrainosus; B12 deficiency; Essential hypertension Social History Tobacco Use Types [...] on file 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 SALES REPRESENTATIVE MALT LIQUORS Gender Identity Female 03/27/2020 5:01 PM CDT Sexual Orientation Lesbian 03/27/2020 5: 01 PM CDT documented as of this encounter Last Filed Vital Signs Vital Sign Reading Time Taken Comments Blood Pressure 128/88 08/06/2020 2:57 PM SALES REPRESENTATIVE MALT LIQUORS Pulse 91 08/06/2020 2:57 PM SALES REPRESENTATIVE MALT LIQUORS Temperature 36.8 ??C (98.2 ??F) 08/06/2020 2:57 PM CS T Respiratory Rate 19 08/06/2020 2:57 PM SALES REPRESENTATIVE MALT LIQUORS Oxygen Saturation 99% 08/06/2020 2:57 PM SALES REPRESENTATIVE MALT LIQUORS Inhaled Oxygen Concentration - - Weight 87 kg (191 lb 12.8 oz) 08/06/2020 2:57 PM SALES REPRESENTATIVE MALT LIQUORS Height 167.6 cm (5' 6 ) 08/06/2020 2:57 PM SALES REPRESENTATIVE MALT LIQUORS Body Mass Index 30.96 08/06/2020 2:57 PM SALES REPRESENTATIVE MALT LIQUORS documented in this encounter Ordered Prescriptions Prescription Sig Dispense Quantity Refills Last Filled Start Date End Date levoFLOXacin (LEVAQUIN) 500 mg tabletIndications: Enlarged salivary gland Take 1 tablet (500 mg total) by mouth daily for 7 days 7 tablet 08/06/2020 08/13/2020 documented in this encounter Progress Notes * Brijesh Lynch MD - 08/06/2020 3:00 PM CST Images from the original note were not included. Subjective/Objective Patient ID: Chrissy Kilgore is a 50 y.o. female. Visit Date: 08/06/2020 Chief Complaint Migraine (left side), Cyst (Left jaw ), and Hypertension HPI Returns to the office for repeat evaluation. States that she has been having migraines and states that she has been seeing white flashes in the eyes. Has an enlarged left salivary gland. The gerd andthe htn is under control. She is also very fatigued. rviewed the labs Review of Systems Constitutional: Positive for fatigue. Negative for activity change. HENT: Negative for congestion. Enlarged salivary gland. Eyes: Negative for visual disturbance. Respiratory: Negative for cough and chest tightness. Cardiovascular: Negative for chest pain and leg swelling. Gastrointestinal: Negative for abdominal pain, blood in stool, constipation, diarrhea and nausea. Genitourinary: Negative for difficulty urinating. Musculoskeletal: Negative for arthralgias, back pain and gait problem. Skin: Negative for rash. Cyst left jaw Neurological: Positive for headaches (on the left ). Psychiatric/Behavioral: Negative for sleep disturbance. The patient is not nervous/anxious. Physical Exam Vitals signs reviewed. Constitutional: General: She is not in acute distress. Appearance: She is well-developed. HENT: Head: Normocephalic. Comments: Enlarged left salivary gland. Right Ear: External ear normal. Left Ear: [...] There is no abdominal tenderness. Musculoskeletal: Comments: ROM appropriate Skin: General: Skin is warm and dry. Capillary Refill: Capillary refill takes less than 2 seconds. Neurological: Mental Status: She is alert and oriented to person, place, and time. Psychiatric: Behavior: Behavior normal. Assessment/Plan Diagnoses and all orders for this visit: Enlarged salivary gland (K11.1) (Primary) Comments: condition aucte. lemon drops. levaquin for 7 dyas. Intractable chronic migraine without aura and without status migrainosus (G43.719) Comments: condition acute on chronic. refer to dr. pollack B12 deficiency (E53.8) Comments: conditoin acute. 1000 mcg b12 Orders: - cyanocobalamin (Vitamin B-12) injection 1,000 mcg; Inject 1 mL (1,000 mcg total) into the muscle as instructed once Essential hypertension (I10) Comments: condition chrnoic stable continue care Brijesh Lynch MD S REPRESENTATIVE MALT LIQUORS documented in this encounter Plan of Treatment Not on file documented as of this encounter Visit Diagnoses Diagnosis Enlarged salivary gland- Primary Hypertrophy of salivary gland Intractable chronic migraine without aura and without status migrainosus B12 deficiency Essential hypertension Unspecified essential hypertension documented in this encounter Administered Medications Inactive Administered Medications - up to 3 most recent administrations Medication Order MAR Action Action Date Dose Rate Site cyanocobalamin (Vitamin B-12) injection 1,000 mcg 1,000 mcg, intramuscular, Once, On Tue08/06/20 at 1645, For 1 doseIndications:B12 deficiency Given 08/06/2020 4:05 PM SALES REPRESENTATIVE MALT LIQUORS 1,000 mcg Left Deltoid documented in this encounter
--- OUTSIDE RECORDS SUMMARY | 2024-09-03 19:39 | XMS_ITS | Encounter Summary ---
Author Organization [facility] Medical Group Address [address] [facility] [address] [place] [address] Care Team Providers Care Splicing Machine Operator Name Role Phone Angeles Hernandez MD Unavailable [phone] Encounter Details Date Type Department Care Team ([facility] st Contact Info) Description 02/13/2021 Orders Only [facility] Health Information Management [address] [place] [address] Brijesh Lynch MD [address] [place] [address] Social History Tobacco Use Types Packs/Day Years [...] on file 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 HVAC ESTIMATOR Gender Identity Female 03/27/2020 5:01 PM CDT Sexual Orientation Lesbian 03/27/2020 5: 01 PM CDT documented as of this encounter Plan of Treatment Not on file documented as of this encounter Procedures Procedure Name Priority Date/Time Associated Diagnosis Comments SCAN - RADIOLOGY/IMAGING 02/13/2021 documented in this encounter Results * SCAN - RADIOLOGY/IMAGING (02/13/2021) Anatomical Region Laterality Modality Other us Brijesh Lynch MD Final Result documented in this encounter Visit Diagnoses Not on filedocumented in this encounter Care Teams Splicing Machine Operator Relationship Specialty Start Date End Date Angeles Hernandez MD [address] [address] Referring Physician Gynecology 07/21/21 documented as of this encounter
--- OUTSIDE RECORDS SUMMARY | 2024-09-03 19:39 | XMS_ITS | Encounter Summary ---
Author Organization [facility] Address [address] [place] [address] Phone Care Team Providers Care Organizational Effectiveness Consultant Name Role Phone Unavailable Primary Care Provider Unavailabl e Reason for Referral * (Routine) - Closed Specialty Diagnoses / Procedures Referred By Contac t Referred To Contact Diagnoses Epiretinal membrane (ERM) of both eyes Procedures OCT, Retina - OU - Both Eyes Christine Moscoso, OD Phone: tel: fax: [facility] (All Locations) Referral ID Status Reason Start Date Expiration Date Visits Re quested Visits Authorized [id number] Closed 07/29/2020 08/28/2021 1 1 DMAN Encounter Details Date Type Department Care Team (Late st Contact Info) Description 07/29/2020 3:00 PM BREADMAN Office Visit [facility] [address] 6th [address], [address] [facility] [place] [address] Christine Moscoso, OD [address] [address] Epiretinal membrane (ERM) of both eyes; PCO (posterior capsular opacification), left; Age-related nuclear cataract of right eye; Visual disturbance Social History Tobacco Use Types Packs/Day Years [...] on file 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 BREADMAN Gender Identity Female 03/27/2020 5:01 PM CDT Sexual Orientation Lesbian 03/27/2020 5: 01 PM CDT documented as of this encounter Patient Instructions * Patient Instructions* Christine Moscoso, OD - 07/29/2020 3:00 PM BREADMAN Dilation instructions Please refer to your Dilating Eyedrops brochure for instructions regarding dilation. DMAN documented in this encounter Progress Notes * Christine Moscoso, OD - 07/29/2020 3:00 PM CST Assessment/Plan Visual disturbance +white light in vision left eye (OS) only with eyes closed +reports h/o black out vision left eye (OS) 2-3 times previously; last episode was 1 year ago -denies numbness, tingling, weakness -prior symptoms concern for amaurosis fugax and newer symptoms of white light concerning -OCT ONH today; no sign of papilledema -recommend carotid doppler; will notify PCP PCO (posterior capsular opacification), left -[facility] [place] [facility] [place] [facility] [place] [facility]: consider yag cap after retina eval Epiretinal membrane (ERM) of both eyes left eye (OS)>>OD +pt complains of very bothersome floaters left eye (OS) X 2 year that have been worsening and affecting her vision +patient has significant vitreous strands left eye (OS)>OD; may benefit from pars plana vitrectomy (PPV)/MP left eye (OS) -will schedule eval with retina team Age-related nuclear cataract of right eye Mild; not yet VS -follow Christine Moscoso OD DMAN documented in this encounter Miscellaneous Notes * Assessment & Plan Note - Christine Moscoso, OD - 07/29/2020 4:20 PM CSTAssociated Problem(s): Pseudophakia of right eye Mild; not yet VS -follow DMAN * Assessment & Plan Note - Christine Moscoso, OD - 07/29/2020 4:18 PM CSTAssociated Problem(s): Epiretinal membrane (ERM) of both eyes left eye (OS)>>OD +pt complains of very bothersome floaters left eye (OS) X 2 year that have been worsening and affecting her vision +patient has significant vitreous strands left eye (OS)>OD; may benefit from pars plana vitrectomy (PPV)/MP left eye (OS) -will schedule eval with retina team DMAN * Assessment & Plan Note - Christine Moscoso, OD - 07/29/2020 4:18 PM CSTAssociated Problem(s): PCO (posterior capsular opacification), left -sp cataract extraction (CE) 2 years ago in [place] -[place] VS: consider yag cap after retina eval DMAN DMAN * Assessment & Plan Note - Christine Moscoso, OD - 07/29/2020 4:16 PM CSTAssociated Problem(s): Visual disturbance +white light in vision left eye (OS) only with eyes closed +reports h/o black out vision left eye (OS) 2-3 times previously; last episode was 1 year ago -denies numbness, tingling, weakness -prior symptoms concern for amaurosis fugax and newer symptoms of white light concerning -recommend carotid doppler; will notify PCP DMAN documented in this encounter Plan of Treatment Not on file documented as of this encounter Procedures Procedure Name Priority Date/Time Associated Diagnosis Comments OCT, RETINA - OU - BOTH EYES Routine 07/29/2020 4:26 PM BREADMAN Epiretinal membrane (ERM) of both eyes documented in this encounter Results * OCT, Retina - OU - Both Eyes (07/29/2020 4:26 PM BREADMAN) Anatomical Region Laterality Modality Head Optical Coherenc e Tomography Narrative 07/29/2020 4:26 PM BREADMAN Right Eye Quality was good. Progression has no prior data. Findings include normal foveal contour, epiretinal membrane. Left Eye Quality was good. Progression has no prior data. Findings include abnormal foveal contour, epiretinal membrane. Christine Moscoso OD OPHTH TOMOGRAPHY Fin al Result documented in this encounter Visit Diagnoses Diagnosis Epiretinal membrane (ERM) of both eyes PCO (posterior capsular opacification), left Unspecified after-cataract Age-related nuclear cataract of right eye Visual disturbance Unspecified visual disturbance documented in this encounter Eye Exam Visual Acuity (Snellen - Linear) Right eye Left eye Dist cc 20/20 20/25 slow Tonometry (applanation , 3:04 PM) Right eye Left eye Pressure 17 17 Pupils APD Right eye None Left eye None Visual Phillips Right eye Left eye Full Full Extraocular Movement Right eye Left eye Full Full Dilation Both eyes: 1.0% Mydriacyl @ 3:09 PM Slit Lamp Exam Right eye Left eye Lids/Lashes Normal Normal Conjunctiva/Sclera White and quiet White and leland et Cornea Clear Clear Anterior Chamber Deep and quiet Deep and quiet Iris Round and reactive Round and saran ctive Lens 1NS PCIOl, 1+ PCO no t in LOS Vitreous PVD PVD Fundus Exam Right eye Left eye Disc Normal Normal C/D Ratio .5.4 Macula ERM superiorly ERM Vessels Normal Normal Periphery vit debris inferiorly vit debris inferiorly and temp Wearing Rx Sphere Cylinder [place] Add Right eye -2.25 -2.25 095 +2.00 Left eye -1.25 -1.50 040 +2.00 Age: 6/2020 [employer] Type: bifocal
--- OUTSIDE RECORDS SUMMARY | 2024-09-03 19:39 | XMS_ITS | Encounter Summary ---
Author Organization [facility] Address [address] [place] [address] Care Team Providers Care Stem Roller Or Crusher Operator Name Role Phone Unavailable Primary Care Provider Unavailabl e Reason for Visit * Reason Comments Follow-up depression, muscle p ain , muscle pain not improved was unable to get muscle relaxer due for mammogram Encounter Details Date Type Department Care Team (Latest Contact Info) Description 11/21/2020 9:15 AM CDT Office Visit [facility] [address] [place] [address] Brijesh Lynch MD [address] [place] [id number] Primary osteoarthritis involving multiple joints (Primary Dx); Mild intermittent asthma, unspecified whether complicated; Gastroesophageal reflux disease with esophagitis without hemorrhage; Muscle spasm; Other screening mammogram Social History Tobacco Use Types Packs/Day Years [...] on file 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 Gender Identity Female 03/27/2020 5:01 PM CDT Sexual Orientation Lesbian 03/27/2020 5: 01 PM CDT documented as of this encounter Last Filed Vital Signs Vital Sign Reading Time Taken Comments Blood Pressure 138/94 11/21/2020 9:13 AM CDT Pulse 69 11/21/2020 9:13 AM CDT Temperature 36.7 ??C (98 ??F) 11/21/2020 9:13 AM CDT Respiratory Rate 18 11/21/2020 9:13 AM CDT Oxygen Saturation 99% 11/21/2020 9:13 AM CDT Inhaled Oxygen Concentration - - Weight 88.9 kg (196 lb) 11/21/2020 9:13 AM CDT Height 167.6 cm (5' 6 ) 11/21/2020 9:13 AM CDT Body Mass Index 31.64 11/21/2020 9:13 AM CDT documented in this encounter Ordered Prescriptions Prescription Sig Dispense Quantity Refills Last Filled Start Date End Date cyclobenzaprine (FLEXERIL) 10 mg tabletIndications:Mu scle spasm Take 1 tablet (10 mg total) by mouth 3 (three) times a day as needed for muscle spasms 90 tablet 11/21/2020 1 methylPREDNISolone (MEDROL DOSEPACK) 4 mg DosepackIndications: Primary osteoarthritis involving multiple joints Take as directed on package. 21 tablet 11/21/2020 1 documented in this encounter Progress Notes * Brijesh Lynch MD - 11/21/2020 9:15 AM CDT Images from the original note were not included. Subjective/Objective Patient ID: Chrissy Kilgore is a 50 y.o. female. Visit Date: 11/21/2020 Chief Complaint Follow-up (depression, muscle pain , muscle pain not improved was unable to get muscle relaxer) anddue for mammogram HPI Returns to the office for repeat evaluation. States that the joint pain is getting worse and she has problems walking and getting out of bed. The muscle pain continues to. The derpession is udner conrol and the gerd is stable and the allergies are under control. Review of Systems Constitutional: Negative for activity change. HENT: Negative for congestion. Eyes: Negative for visual disturbance. Respiratory: Negative for cough and chest tightness. Cardiovascular: Negative for chest pain and leg swelling. Gastrointestinal: Negative for abdominal pain, blood in stool, constipation, diarrhea and nausea. Genitourinary: Negative for difficulty urinating. Musculoskeletal: Positive for arthralgias and myalgias. Negative for back pain and gait problem. [...] tenderness. Musculoskeletal: Cervical back: Neck supple. Comments: Multiple joint and muscle pain Skin: General: Skin is warm and dry. Capillary Refill: Capillary refill takes less than 2 seconds. Neurological: Mental Status: She is alert and oriented to person, place, and time. Psychiatric: Behavior: Behavior normal. Assessment/Plan Diagnoses and all orders for this visit: Primary osteoarthritis involving multiple joints (M89.49) (Primary) Comments: condition chonic and not at goal. kenalog 80 mg medrol refer to [facility] Orders: - triamcinolone (KENALOG) 40 mg/mL injection 80 mg; Inject 2 mL (80 mg total) into the muscle as instructed once Mild intermittent asthma, unspecified whether complicated (J45.20) Comments: condition chronic and at goal. continue the inhalers prn Gastroesophageal reflux disease with esophagitis without hemorrhage (K21.00) Comments: conditon chronic and at goal. contniue aleksandra protonix Muscle spasm (M62.838) Comments: conditon chronic and not at goal. flexeril Other screening mammogram (Z12.31) Comments: mammogram Orders: - Screening Mammogram 2D Bilateral; Future Brijesh Lynch MD documented in this encounter Plan of Treatment Not on file documented as of this encounter Visit Diagnoses Diagnosis Primary osteoarthritis involving multiple joints- Primary Mild intermittent asthma, unspecified whether complicated Gastroesophageal reflux disease with esophagitis without hemorrhage Muscle spasm Spasm of muscle Other screening mammogram documented in this encounter Administered Medications Inactive Administered Medications - up to 3 most recent administrations Medication Order MAR Action Action Date Dose Rate Site triamcinolone (KENALOG) 40 mg/mL injection 80 mg 80 mg, intramuscular, Once, On Tue11/21/20 at 1045, For 1 doseIndications:Primary osteoarthritis involving multiple joints Given 11/21/2020 10:13 AM CDT 80 mg Other (Comment) documented in this encounter Discontinued Medications Medication Sig Discontinue Reason Start Date End Da te acetaminophen-codeine (TYLENOL with CODEINE #3) 300-30 mg per tablet TAKE 1 TABLET BY MOUTH EVERY 6 TO 8 HOURS NEEDED FOR PAIN Therapy completed 11/13/2020 11/21/2020 documented as of this encounter Historical Medications * This list may reflect changes made after this encounter. ibuprofen (ADVIL,MOTRIN) 800 mg tablet Take 1 tablet by mouth every 6 (six) hours as needed 11/13/2020 12/18/2021 acetaminophen-cod eine (TYLENOL with CODEINE #3) 300-30 mg per tablet TAKE 1 TABLET BY MOUTH EVERY 6 TO 8 HOURS NEEDED FOR PAIN 11/13/2020 11/21/2020 added in this encounter
--- OUTSIDE RECORDS SUMMARY | 2024-09-03 19:39 | XMS_ITS | Encounter Summary ---
Author Organization [facility] Address [address] [place] [address] Care Team Providers Care Brick Setter Name Role Phone Unavailable Primary Care Provider Unavailabl e Reason for Visit * Consultation (Routine) - Closed Specialty Diagnoses / Procedures Referred By Contcosme t Referred To Contact Otolaryngology Diagnoses Mixed conductive and sensorineural hearing loss, bilateral Brijesh Lynch MD Phone: tel: fax: [facility] [address] [place] [address] Phone: tel: fax: Referral ID Status Reason Start Date Expiration Date V isits Requested Visits Authorized [id number] Closed Specialty Services Required 07/28/2020 08/27/2021 1 1 Encounter Details Date Type Department Care Team (Late st Contact Info) Description 08/07/2020 8:30 AM APRON CLEANER Office Visit [facility] [address] [place] [address] Joshua Stewart MD [address] [place] [address] [address] [place] [phone] Eustachian tube dysfunction, unspecified laterality (Primary Dx); Mixed conductive and sensorineural hearing loss, bilateral; Tinnitus of both ears; Sialadenitis Social History Tobacco Use Types Packs/Day Years [...] on file 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 APRON 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 Gender Identity Female 03/27/2020 5:01 PM CDT Sexual Orientation Lesbian 03/27/2020 5: 01 PM CDT documented as of this encounter Last Filed Vital Signs Vital Sign Reading Time Taken Comments Blood Pressure 151/92 08/07/2020 8:33 AM APRON CLEANER Pulse 76 08/07/2020 8:33 AM APRON CLEANER Temperature 36.2 ??C (97.1 ??F) 08/07/2020 8:33 AM CS T Respiratory Rate - - Oxygen Saturation 98% 08/07/2020 8:33 AM APRON CLEANER Inhaled Oxygen Concentration - - Weight 86.6 kg (191 lb) 08/07/2020 8:33 AM APRON CLEANER Height 167.6 cm (5' 6 ) 08/07/2020 8:33 AM APRON CLEANER Body Mass Index 30.83 08/07/2020 8:33 AM APRON CLEANER documented in this encounter Progress Notes * Joshua Stewart MD - 08/07/2020 8:30 AM CST Subjective/Objective Patient ID: Chrissy Kilgore is a 50 y.o. female. Visit Date: 08/07/2020 Chief Complaint: Hearing loss and tinnitus History of Present Illness: I was asked to consult on this patient by Dr. Lynch because the patient has bilateral hearing loss that makes it difficult for her to hear her television and she is required to turn up the television in her family to hear well. 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 She does not have significant problem with tinnitus but a mild problem and she does not have any evidence of any dizziness. She does not have any fevers and her sinuses are stable. This is a chronic moderate problem without pain. This problem has been present for about the past 6 months duration and is a moderate problem without pain. Past Medical History: Diagnosis Date ??? Asthma ??? Brain concussion [id number] ??? Cataract [id number] ??? Depression [id number] ??? GERD (gastroesophageal reflux disease) ??? Irritable bowel syndrome ??? Kidney stone 111817 ??? Menstrual problem 070742 ??? Migraines 682408 ??? Peptic ulceration 0101?? 1 Patient Active Problem List Diagnosis ??? Visual disturbance ??? Age-related nuclear cataract of right eye ??? PCO (posterior capsular opacification), left ??? Epiretinal membrane (ERM) of both eyes Past Surgical History: Procedure Laterality Date ??? APPENDECTOMY ??? BREAST SURGERY ??? CATARACT EXTRACTION 523815 ??? CHOLECYSTECTOMY 606007 ??? COLON SURGERY 566319 ??? GALLBLADDER SURGERY ??? OVARY SURGERY ??? SMALL INTESTINE SURGERY 0101?? 1 Current Outpatient Medications on File Prior to Visit Medication Sig Dispense Refill ??? albuterol (PROAIR RESPICLICK) 90 mcg/actuation inhaler 2 puffs every 4 (four) hours as needed ??? albuterol 2.5 mg /3 mL (0.083 %) nebulizer solution 0.083 % every 6 (six) hours as needed ??? cetirizine (ZyrTEC) 10 mg tablet Take 1 tablet (10 mg total) by mouth daily 30 tablet 5 ??? chlorzoxazone (PARAFON FORTE) 500 mg tablet TK 1 T PO TID PRF MSP ??? cyclobenzaprine (FLEXERIL) 10 mg tablet TAKE 1 TABLET(10 MG) BY MOUTH THREE TIMES DAILY NEEDED FOR MUSCLE SPASMS 90 tablet 0 ??? escitalopram (LEXAPRO) 10 mg tablet Take 1 tablet (10 mg total) by mouth daily 30 tablet 5 ??? HYDROcodone-acetaminophen (NORCO) 5-325 mg per tablet Take 1 tablet by mouth every 8 (eight) hours as needed for pain 90 tablet 0 ??? levoFLOXacin (LEVAQUIN) 500 mg tablet Take 1 tablet (500 mg total) by mouth daily for 7 days 7 tablet 0 ??? montelukast (SINGULAIR) 10 mg tablet Take 1 tablet (10 mg total) by mouth nightly 30 tablet 5 ??? nystatin 100,000 unit/mL suspension Qid ??? pantoprazole DR (PROTONIX) 40 mg EC tablet Take 1 tablet (40 mg total) by mouth daily 30 tablet5 Current Facility-Administered Medications on File Prior to Visit Medication Dose Route Frequency Provider Last Rate Last Admin ??? [COMPLETED] cyanocobalamin (Vitamin B-12) injection 1,000 mcg 1,000 mcg intramuscular Once Brijesh Lynch MD 1,000 mcg at 08/06/20 1605 Allergies Allergen Reactions ??? Penicillins Hives Social History Tobacco Use ??? Smoking status: Never Smoker ??? Smokeless tobacco: Never Used Substance Use Topics ??? Alcohol use: Never Frequency: Never ??? Drug use: Never Family History Problem Relation Age of Onset ??? Breast cancer Mother ??? Cancer Mother ??? Cancer Father ??? COPD Father ??? No Known Problems Brother ??? No Known Problems Daughter ??? No Known Problems Brother ??? No Known Problems Daughter ??? Allergy (severe) Brother ??? Alzheimer's disease Maternal Grandmother ??? Stroke Maternal Grandmother ??? Alzheimer's disease Maternal Grandfather ??? Stroke Maternal Grandfather ??? Asthma Daughter ??? Depression Daughter ??? Depression Daughter ??? Miscarriages / Stillbirths Daughter Review of Systems Constitutional: Positive for fatigue. Negative for fever. HENT: Positive for hearing loss, rhinorrhea and tinnitus. Negative for ear discharge, ear pain and sinus pain. Eyes: Negative for redness and visual disturbance. Respiratory: Positive for shortness of breath. Negative for cough and wheezing. Cardiovascular: Negative for palpitations and leg swelling. Gastrointestinal: Positive for abdominal distention. Endocrine: Negative for polydipsia and polyuria. Genitourinary: Negative for dysuria, frequency and urgency. Musculoskeletal: Positive for arthralgias and myalgias. Negative for neck pain. Skin: Negative for color change and rash. Allergic/Immunologic: Positive for immunocompromised state. Negative for environmental allergies. Neurological: Negative for dizziness, tremors and headaches. Hematological: Does not bruise/bleed easily. Psychiatric/Behavioral: Positive for sleep disturbance. Negative for behavioral problems. Physical Exam: Constitutional: Vitals: 08/07/20 0833 BP: 151/92 BP Location: Left arm Patient Position: Sitting Pulse: 76 Temp: 36.2 ??C (97.1 ??F) TempSrc: Temporal SpO2: 98% Weight: 86.6 kg (191 lb) Height: 167.6 cm (5' 6 ) Well-nourished, well-appearing, in no apparent distress. Communicates appropriately for age with normal phonation. Neurologic/psychiatric: Alert and oriented appropriately for age to date, place, person. Cranial nerves 2-12 grossly intact bilaterally. Appropriate affect/mood. Head and face: Overall appearance within normal limits. No lesions, masses, or tenderness. Facial strength normal. Salivary glands normal. No sinus tenderness to palpation. Ears: Normal pinna and postauricular area. Otoscopic examination: normal external auditory canal and tympanic membrane bilaterally without restricted mobility. Middle ear space clear, without effusion or infection. Hearing audiometric findings show SRT of 15 decibels bilaterally and greater than 96% discrimination scores. Nose: External appearance normal without lesions or masses. Internal exam: nasal mucosa nasal congestion with rhinorrhea abnormal, septum intact/midline, inferior turbinates normal. Oral cavity: Lips, dentition, gingiva normal. Oral mucosa including hard palate, tongue, buccal mucosa, floor of mouth normal. No lesions or masses. Oropharynx: No lesions or masses of lateral/posterior pharyngeal llanos or tonsils. Symmetric appearing tissues. No pooling of secretions. Hypopharynx/larynx/nasopharynx: unable to visualize these areas using transoral mirror technique due to the gag reflex and patient discomfort. Neck: Overall appearance within normal limits. No masses or lymphadenopathy. Salivary glands and thyroid gland normal to palpation. Trachea midline. Normal range of motion. Eyes: Extraocular movements intact. Gaze alignment normal. Respiratory: Breathing comfortably and quietly at rest. Normal respiratory effort without use of accessory muscles. Cardiovascular: Extremities without cyanosis or edema. Assessment/Plan Diagnoses and all orders for this visit: Eustachian tube dysfunction, unspecified laterality (Primary) Mixed conductive and sensorineural hearing loss, bilateral - Ambulatory referral to ENT - Audiology evaluate as indicated; Future Tinnitus of both ears Sialadenitis I spent 20 minutes counseling with this patient and I recommended that she would not benefit from getting hearing aids and I told her that her hearing was normal at the lower limits of normal. She could keep background music playing to control the tinnitus as needed. She does not have any middle ear disease. She seemed happy with the plan to treatment and evaluation. Note dictated with voice recognition software. Mild roadability machine operator variances may occur. Joshua Stewart MD N CLEANER documented in this encounter Plan of Treatment Not on file documented as of this encounter Visit Diagnoses Diagnosis Eustachian tube dysfunction, unspecified laterality- Primary Mixed conductive and sensorineural hearing loss, bilateral Mixed hearing loss, bilateral Tinnitus of both ears Unspecified tinnitus Sialadenitis Sialoadenitis documented in this encounter Orders Outpatient Referral Count Last Ordered Date Fir st Ordered Date AMB REFERRAL TO ENT 1 08/07/2020 documented in this encounter
--- OUTSIDE RECORDS SUMMARY | 2024-09-03 19:39 | XMS_ITS | Encounter Summary ---
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 Gender Identity Female 03/27/2020 5:01 PM CDT Sexual Orientation Lesbian 03/27/2020 5: 01 PM CDT documented as of this encounter Plan of Treatment Not on file documented as of this encounter Procedures Procedure Name Priority Date/Time Associated Diagnosis Comments EGFR Routine 03/11/2021 9:04 AM CDT Mild persistent asthma without complication DIFFERENTIAL AUTO Routine 03/11/2021 9:0 4 AM CDT Mild persistent asthma without complication CBC WITH AUTO DIFFERENTIAL Routine 03/11/2021 9:04 AM CDT Mild persistent asthma without complication ERYTHROCYTE SEDIMENTATION RATE Routine 03/11/2021 9:04 AM CDT Neck pain Muscle spasms of both lower extremities LIPID PANEL Routine 03/11/2021 9:04 AM CDT Screening cholesterol level COMPREHENSIVE METABOLIC PANEL Routine 03/11/2021 9:04 AM CDT Mild persistent asthma without complication documented in this encounter Results * eGFR (03/11/2021 9:04 AM CDT) [facility] eGFR 101 mL/min/1.7 3 m2 [facility] Comment: Interpretive Data Reference Interval Normal ?>/= 90 mL/min/1.73m2 Mildly decreased* ? 60 - 89 mL/min/1.73m2 Mildly to moderately decreased ?45 - 59 mL/min/1.73m2 Moderately to severely decreased ??30 - 44 mL/min/1.73m2 Severely decreased ?15 - 29 mL/min/1.73m2 Kidney Failure ?< 15 ??mL/min/1.73m2 *Relative to young adult level Estimated glomerular filtration rate is determined by the CKD-EPI equation recommended by the National Kidney Foundation (KDIGO 2012 Clinical Practice Guideline for the Evaluation and Management of Chronic Kidney Disease. Kidney Intnl Suppl Aug 2012;3:1). The CKD-EPI equation should not be used for patients with unstable renal function and has not been validated in children and those over 70. Current interpretive data was last reviewed 2020 Blood specimen (specimen) 03/11/2021 9:04 AM CDT 03/11/2021 9:24 AM CDT us Brijesh Lynch MD LAB BLOOD ORDERABLES Final Resu lt [facility] [id number] [facility] Department [place] [address] * Differential, auto (03/11/2021 9:04 AM CDT) Neutrophil abs 5.1 1.7 - 6.5 K/cumm [facility] Imm gran abs 0.1 0.0 - 0.1 K/cumm [facility] Lymphocyte abs 1.3 0.8 - 3.3 K/cumm [facility] Monocyte abs 0.4 0.2 - 0.8 K/cumm [facility] Eosinophil abs 0.1 0.0 - 0.5 K/cumm [facility] Basophil abs 0.0 0.0 - 0.1 K/cumm [facility] Neutrophil pct 73.4 % [facility] Comment: Interpretive Data Percent cell count reference ranges are not reported, since discordance with absolute values may lead to misinterpretation of CBC data. Current Interpretive Data was last revised on 2017. Imm gran pct 1.0 % [facility] Comment: Interpretive Data Percent cell count reference ranges are not reported, since discordance with absolute values may lead to misinterpretation of CBC data. Current Interpretive Data was last revised on 2017. Lymphocyte pct 18.1 % [facility] Comment: Interpretive Data Percent cell count reference ranges are not reported, since discordance with absolute values may lead to misinterpretation of CBC data. Current Interpretive Data was last revised on 2017. Monocyte pct 6.2 % [facility] Comment: Interpretive Data Percent cell count reference ranges are not reported, since discordance with absolute values may lead to misinterpretation of CBC data. Current Interpretive Data was last revised on 2017. Eosinophil pct 0.9 % [facility] Comment: Interpretive Data Percent cell count reference ranges are not reported, since discordance with absolute values may lead to misinterpretation of CBC data. Current Interpretive Data was last revised on 2017. Basophil pct 0.4 % [facility] Comment: Interpretive Data Percent cell count reference ranges are not reported, since discordance with absolute values may lead to misinterpretation of CBC data. Current Interpretive Data was last revised on 2017. Blood specimen (specimen) 03/11/2021 9:04 AM CDT 03/11/2021 9:24 AM CDT us Brijesh Lynch MD LAB BLOOD ORDERABLES Final Resu lt Performing Organization Address [facility] Co de Phone Number [address] [place] [address] * CBC with auto differential (03/11/2021 9:04 AM CDT) WBC 7.0 3.8 - 9.9 K/cumm [facility] Hgb 14.1 11.9 - 15.5 g/dL [facility] Hct 41.2 35.6 - 45.5 % [facility] Plt 336 150 - 400 K/cumm [facility] MPV 9.3 9.1 - 12.3 fL [facility] RBC 4.55 3.90 - 5.20 M/cumm [facility] MCV 90.5 81.3 - 96.4 fL [facility] MCH 31.0 27.1 - 33.3 pg [facility] MCHC 34.2 32.3 - 35.7 g/dL [facility] RDW CV 12.8 11.1 - 14.9 % [facility] RDW SD 41.9 35.7 - 48.1 fL [facility] NRBC abs 0.00 0.00 - 0.01 K/cumm [facility] Blood specimen (specimen) 03/11/2021 9:04 AM CDT 03/11/2021 9:24 AM CDT us Brijesh Lynch MD LAB BLOOD ORDERABLES Final Resu lt Performing Organization Address [facility] Co de Phone Number [address] [place] [address] * (ABNORMAL) Comprehensive metabolic panel (03/11/2021 9:04 AM CDT) Pathologist [facility] Sodium 142 135 - 145 mmol/L [facility] Potassium, pl 4.0 3.3 - 4.9 mmol/L [facility] Chloride 104 97 - 110 mmol/L [facility] CO2 29 22 - 32 mmol/L [facility] Anion gap 9 2 - 15 mmol/L [facility] BUN 14 8 - 25 mg/dL [facility] Creatinine 0.70 0.60 - 1.10 mg/dL [facility] Glucose 93 70 - 199 mg/dL [facility] Comment: Interpretive Data Fasting glucose >/= [...] interpretive data was last revised 2017. Calcium 10.6(H) 8.5 - 10.3 mg/dL [facility] Bilirubin, total 0.9 0.1 - 1.2 mg/dL [facility] Protein, pl 7.2 6.5 - 8.5 g/dL [facility] Albumin 4.4 3.5 - 5.0 g/dL [facility] Alk phos 110 40 - 130 Units/L [facility] ALT 35 7 - 45 Units/L [facility] AST 32 10 - 45 Units/L [facility] Blood specimen (specimen) 03/11/2021 9:04 AM CDT 03/11/2021 9:24 AM CDT us Brijesh Lynch MD LAB BLOOD ORDERABLES Final Resu lt [facility] [id number] [facility] Department [place] [address] * (ABNORMAL) Lipid panel (03/11/2021 9:04 AM CDT) Cholesterol 380(H) 30 - 199 mg/dL [facility] Comment: Interpretive Data Ages < or [...] Data was last revised on 2018. Triglycerides 93 <=149 mg/dL [facility] Comment: Interpretive Data [...] Data was last revised on 2018. HDL 90 >=40 mg/dL [facility] Comment: Interpretive Data [...] was last revised on 2018. LDL, calculated 271(H) <=129 mg/dL [facility] Comment: Interpretive Data Ages [...] was last revised on 2018. Non-HDL Cholesterol 290 mg/dL [facility] Comment: Interpretive Data Ages < [...] last revised on 2018. Chol/HDL ratio 4 [facility] Blood specimen (specimen) 03/11/2021 9:04 AM CDT 03/11/2021 9:24 AM CDT us Brijesh Lynch MD LAB BLOOD ORDERABLES Final Resu lt Performing Organization Address [facility] Co de Phone Number [facility] [address] [place] [address] * Erythrocyte sedimentation rate (03/11/2021 9:04 AM CDT) Erythrocyte sedimentation rate 22 1 - 30 mm/hr [facility] Blood specimen (specimen) 03/11/2021 9:04 AM CDT 03/11/2021 9:24 AM CDT us Brijesh Lynch MD LAB BLOOD ORDERABLES Final Resu lt Performing Organization Address [facility] de Phone Number [facility] [address] [address] documented in this encounter Visit Diagnoses Diagnosis Neck pain Cervicalgia Muscle spasms of both lower extremities Screening cholesterol level Screening for lipoid disorders Mild persistent asthma without complication documented in this encounter
--- OUTSIDE RECORDS SUMMARY | 2024-09-03 19:39 | XMS_ITS | Encounter Summary ---
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 Name Role Phone Unavailable Primary Care Provider Unavailabl e Reason for Visit * Reason Comments OP Infusion covid * Episode Based Medications (Routine) - Closed Specialty Diagnoses / Procedures Referred By Sharlene angulo Referred To Contact Diagnoses COVID-19 Procedures [facility] INFUSION Brijesh Lynch MD [address] [place] [id number] Phone: tel: fax: [facility] [address] [place] [address] Phone: tel: fax: Referral ID Status Reason Start Date Expiration Date Visits Re quested Visits Authorized [id number] Closed 04/16/2021 05/16/2022 1 1 Encounter Details Date Type Department Care Team (Latest Contact Info) Description 04/17/2021 8:13 AM CDT - 04/17/2021 11:59 PM CDT Hospital Encounter [facility] [address] [place] [address] COVID-19 (Primary Dx) Discharge Disposition: Discharge to home or self [...] on file 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 Gender Identity Female 03/27/2020 5:01 PM CDT Sexual Orientation Lesbian 03/27/2020 5: 01 PM CDT documented as of this encounter Last Filed Vital Signs Vital Sign Reading Time Taken Comments Blood Pressure 145/91 04/17/2021 10:45 AM CDT Pulse 66 04/17/2021 10:45 AM CDT Temperature 36.4 ??C (97.5 ??F) 04/17/2021 10:45 AM C DT Respiratory Rate 18 04/17/2021 10:45 AM CDT Oxygen Saturation 96% 04/17/2021 10:45 AM CDT Inhaled Oxygen Concentration - - Weight 86.2 kg (190 lb) 04/17/2021 9:00 AM CDT Height 167.6 cm (5' 6 ) 04/17/2021 9:00 AM CDT Body Mass Index 30.67 04/17/2021 9:00 AM CDT documented in this encounter Medications at Time of Discharge albuterol (PROAIR DIGIHALER) 90 mcg/actuation inhaler Inhale 2 puffs every 6 (six) hours as needed for wheezing 2 albuterol (PROAIR RESPICLICK) 90 mcg/actuation inhaler 2 [...] 6 (six) hours as needed 11/13/2020 2 montelukast (SINGULAIR) 10 mg tabletIndications :Seasonal allergic rhinitis due to pollen Take 1 tablet (10 mg total) by mouth nightly 30 tablet 5 01/28/2021 2 nystatin 100,000 unit/mL suspension Qid 06/08/2020 1 ondansetron (ZOFRAN) 4 mg tablet TAKE 1 TABLET BY MOUTH EVERY 6 HOURS NEEDED FOR NAUSEA OR VOMITING 03/26/[address] (PROTONIX) 40 mg EC tabletIndications :Gastroesophageal reflux disease with esophagitis without hemorrhage Take 1 tablet (40 mg total) by mouth daily 30 tablet 5 07/10/2020 1 sertraline (ZOLOFT) 50 mg tabletIndications :Moderate episode of recurrent major depressive disorder (HCC) Take 1 tablet (50 mg total) by mouth daily 30 tablet 5 01/28/2021 1 TiZANidine (ZANAFLEX) 4 mg capsuleIndication s:Muscle pain Take 1 capsule (4 mg total) by mouth 3 (three) times a day 90 capsule 11 10/24/2020 1 traMADoL (ULTRAM) 50 mg tabletIndications :Neck pain TAKE 1 TABLET(50 MG) BY MOUTH EVERY 8 HOURS NEEDED FOR PAIN 90 tablet 04/08/2021 1 documented as of this encounter Discharge Disposition Disposition Code Departure Means Destination Discharge to home or self care documented in this encounter Nursing Notes * Carley Oakley RN - 04/17/2021 8:15 AM CDT Pt given eua packet for infusion, questions answered. Pt agreeable for infusion. Pt has frequent non productive cough, spo2 97% on room air, also has audible wheezes that clear with coughing documented in this encounter Plan of Treatment Not on file documented as of this encounter Visit Diagnoses Diagnosis COVID-19- Primary documented in this encounter Administered Medications Inactive Administered Medications - up to 3 most recent administrations Medication Order MAR Action Action Date Dose Rate Site casirivimab-imdevimab (EUA) (REGEN-COV) 1,200 mg in sodium chloride 0.9% 100 mL IVPB intravenous, at 220 mL/hr, Administer over 30 Minutes, Once, On Tue04/17/21 at 0930, For 1 dose, Do not shake. Use a PVC, polyethylene-lined PVC, or polyurethane infusion set containing a 0.2 micron polyethersulfone filter., Does the patient have a laboratory-confirmed SARS-CoV-2 test (rapid antigen or PCR)? Yes, Date of test: 04/15/2021, Is the patient able to receive casirivimab and imdevimab within 10 days of symptom onset? Yes, Date of symptom onset: 04/14/2021, Does the patient have mild to moderate COVID-19? Yes, Patient has at least one of the following high-risk conditions (select all that apply): Chronic lung disease, I attest the information in the ? Fact Sheet for Patients, Parents, and Caregivers? has been communicated to the patient or parent/caregiver and that the patient/caregiver has been: given the ? Fact Sheet for Patients, Parents, and Caregivers? , informed of alternatives to receiving casirivimab and imdevimab, informed that casirivimab and imdevimab are unapproved drugs that are authorized for use under this Emergency Use Authorization, Is the patient or breasfeeding? NoIndications:COVID-19 New Bag 04/17/2021 9:14 AM CDT 220 mL/hr sodium chloride 0.9% infusion 30 mL 30 mL, intravenous, Once, On Tue04/17/21 at 0900, For 1 doseIndications:COVID-19 New Bag 04/17/2021 9:51 AM CDT 30 mL documented in this encounter Orders Medications Ordered That Sarabjit ht Not Have Been Administered Count Last Ordered Date First Ordered Date albuterol HFA (PROVENTIL HFA ,VENTOLIN HFA,PROAIR HFA) 90 mcg/actuation inhaler 2 puff 1 04/17/2021 diphenhydrAMINE (BENADRYL) capsule 50 mg 1 04/17/2021 diphenhydrAMINE (BENADRYL) injection 25 mg 1 04/17/2021 diphenhydrAMINE (BENADRYL) injection 50 mg 1 04/17/2021 diphenhydrAMINE (BENADRYL) tab/cap 25 mg 1 04/17/2021 EPINEPHrine injection 0.3 mg 1 04/17/2021 methylPREDNISolone sodium galan ccinate (SOLU-medrol) preservative free injection 125 mg 1 04/17/2021 ondansetron (ZOFRAN) injection 8 mg 1 04/17 sodium chloride 0.9% bolus 500 mL 1 021 sodium chloride 0.9% flush 10 mL 1 04/17/20 21 Nursing Count Last Ordered Date First Orde red Date MONITOR PATIENT FOR HYPERSEN SITIVITY REACTIONS 1 04/17/2021 NURSING COMMUNICATION 4 04/17/2021 ONCBCN PROVIDER COMMUNICATION 1 1 ONCBCN PROVIDER COMMUNICATION 10 1 04/17/20 21 VITAL SIGNS 2 04/17/2021 documented in this encounter
--- OUTSIDE RECORDS SUMMARY | 2024-09-03 19:39 | XMS_ITS | Encounter Summary ---
Author Organization [facility] Medical Group Address [address] [facility] [address] [place] [address] Care Team Providers Care Care Analyst Name Role Phone Unavailable Primary Care Provider Unavailabl e Reason for Referral * (Routine) - Closed Specialty Diagnoses / Procedures Referred By Sharlene t Referred To Contact Diagnoses Eustachian tube dysfunction, unspecified laterality Procedures Audiogram Lizette Hernandez Au.D. 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 - 08/07/2020 9:00 AM CSTAssociated Order(s): Audiogram Post-Procedure Diagnose(s): Eustachian tube dysfunction, unspecified laterality Audiogram Performed by: Lizette Hernandez Au.D. Authorized by: Joshua Stewart MD Audiometric Evaluation Patient: Chrissy Kilgore 50 y.o. female : 1970 Patient Reports: Chrissy was seen today by Dr. Stewart. The patient reported she has hearing loss in both ears that makes it difficult for her to hear her family and the television. 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 She has some tinnitus but denies any dizziness. This problem has beenpresent for about six months. Tests Performed: See: audiogram (see scanned document) Assessment: Otoscopy was performed by Dr. Stewart and found her ear canals were clear of cerumen. Middle ear spaces were clear with out effusion or infection. Pure tone audiometry was performed and revealed: Right- within normal limits 250 Hz to 4000 Hz with a mild sensorineural hearing loss 6000 Hz to 8000 Hz Left- within normal limits 500 Hz to 3000 Hz with a mild sensorineural hearing loss 250 Hz, 4000 Hzto 8000 Hz Speech recognition thresholds (SRT) test was performed and revealed: Right - Consistent with normal hearing Left - Consistent with normal hearing Word recognition testing (WRS) was performed using MLV of Nu-6 lists Right - Normal/Excellent Left - Normal/Excellent Chrissy was counseled on the results of today's evaluation by Dr. Stewart. He did not recommend the patient be fit with hearing aids at this time. He suggested she use music to mask the tinnitus if it bothers her. Plan/Recommendations: Follow-up with Dr. 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 - 08/07/2020 9:00 AM FAST FOOD CREW MEMBER Lizette Hernandez Au.D. ? 08/07/2020 ??1:31 PM Audiogram Performed by: Lizette Hernandez Au.D. Authorized by: Joshua Stewart MD Joshua Stewart MD AUDIOLOGY SERVICES ORDERAB LES Final Result documented in this encounter Visit Diagnoses Diagnosis Eustachian tube dysfunction, unspecified laterality- Primary Sensorineural hearing loss (SNHL) of both ears Tinnitus of both ears Unspecified tinnitus documented in this encounter
--- OUTSIDE RECORDS SUMMARY | 2024-09-03 19:39 | XMS_ITS | Encounter Summary ---
Author Organization [facility] Address [address] [place] [address] Care Team Providers Care Conveyor Maintenance Mechanic Name Role Phone Unavailable Primary Care Provider Unavailabl e Reason for Visit * Reason Comments Allergies wants to see Allergi st Medication Problem wants Flexeril not Z anaflex Anxiety abruptly stopped Zol oft. Wants to talk to therapist Encounter Details Date Type Department Care Team (Late st Contact Info) Description 03/10/2021 3:[address] 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 Subjective/Objective Patient ID: Chrissy Kilgore is a 50 y.o. female. Visit Date: 03/10/2021 Chief Complaint Allergies (wants to see Admissions Manager), Medication Problem (wants Flexeril not Zanaflex), and Anxiety (abruptly stopped Zoloft. Wants to talk to therapist ) HPI Returns to the office for repeat evaluation. States that the allergies are not under control and the meds are not working. The muscle spasms continues and the asthma is under control. The gerd is under control and depression is not under control The tramadol is helping for the neck pain Review of Systems Constitutional: Negative for activity [...] for sleep disturbance. The patient is nervous/anxious. Physical Exam Constitutional: General: She is not in acute distress. Appearance: Normal appearance. She is well-developed. HENT: Head: Normocephalic and atraumatic. Neck: Thyroid: No thyromegaly. Comments: ROM appropriate Pulmonary: Effort: Pulmonary effort is normal. Musculoskeletal: Comments: ROM appropriate Skin: General: Skin is warm and dry. Neurological: General: No focal deficit present. Mental Status: She is alert and oriented to person, place, and time. Psychiatric: Mood and Affect: Mood normal. Behavior: Behavior normal. Assessment/Plan Diagnoses and all orders for this visit: Muscle spasms of both lower extremities (M62.838) (Primary) Comments: conditon chroinc and at goal refill the flexeril Orders: - Erythrocyte sedimentation rate; Future Neck pain (M54.2) Comments: condition chronic and not to goal refill the tramadol and refer to pt Orders: - traMADoL (ULTRAM) 50 mg tablet; Take 1 tablet (50 mg total) by mouth every 8 (eight) hours as needed for pain - Erythrocyte sedimentation rate; Future Mild persistent asthma without complication (J45.30) Comments: conditoin chronic and at goal continue the inhaler and the neb Orders: - CBC with auto differential; Future - Comprehensive metabolic panel; Future Allergy, subsequent encounter (T78.40XD) Comments: conditoin chronic adn not controlled. refer to allergy and immunology at [place]. Gastroesophageal reflux disease with esophagitis without hemorrhage (K21.00) Comments: conditoin chroinc nad at goal continue the protonix Screening cholesterol level (Z13.220) Comments: check lab Orders: - Lipid panel; Future Brijesh Lynch MD This was a telemedicine visit with Chrissyveronica Kilgore alone which took place via real-time video connection with [employer]. During the visit, I was located in the office and the patient [facility]. The patient visit started at 1600 and ended at 1610. The patient has been informed that the [...] any applicable copayments. documented in this encounter Plan of Treatment Not on file documented as of this encounter Results * Erythrocyte sedimentation rate (03/11/2021 9:04 AM CDT) Erythrocyte sedimentation rate 22 1 - 30 mm/hr [facility] Blood specimen (specimen) 03/11/2021 9:04 AM CDT 03/11/2021 9:24 AM CDT us Brijesh Lynch MD LAB BLOOD ORDERABLES Final Resu lt [facility] [address] [place] [address] * (ABNORMAL) Lipid panel (03/11/2021 9:04 AM CDT) Cholesterol 380(H) 30 - 199 mg/dL [facility] Comment: Interpretive Data Ages < [...] on 2018. Triglycerides 93 <=149 mg/dL [facility] Comment: Interpretive Data Ages < [...] on 2018. HDL 90 >=40 mg/dL [facility] Comment: Interpretive Data Ages [...] 2018. LDL, calculated 271(H) <=129 mg/dL [facility] Comment: Interpretive Data Ages [...] on 2018. Non-HDL Cholesterol 290 mg/dL [facility] Comment: Interpretive Data Ages [...] last revised on 2018. Chol/HDL ratio 4 [facility] Blood specimen (specimen) 03/11/2021 9:04 AM CDT 03/11/2021 9:24 AM CDT us Brijesh Lynch MD LAB BLOOD ORDERABLES Final Resu lt [facility] [address] [place] [address] * (ABNORMAL) Comprehensive metabolic panel (03/11/2021 9:04 AM CDT) Sodium 142 135 - 145 mmol/L [facility] Potassium, pl 4.0 3.3 - 4.9 mmol/L [facility] Chloride 104 97 - 110 mmol/L [facility] CO2 29 22 - 32 mmol/L [facility] Anion gap 9 2 - 15 mmol/L [facility] BUN 14 8 - 25 mg/dL [facility] Creatinine 0.70 0.60 - 1.10 mg/dL [facility] Glucose 93 70 - 199 mg/dL [facility] Comment: Interpretive Data Fasting glucose >/= [...] 2017. Calcium 10.6(H) 8.5 - 10.3 mg/dL [facility] Bilirubin, total 0.9 0.1 - 1.2 mg/dL [facility] Protein, pl 7.2 6.5 - 8.5 g/dL [facility] Albumin 4.4 3.5 - 5.0 g/dL [facility] Alk phos 110 40 - 130 Units/L [facility] ALT 35 7 - 45 Units/L [facility] AST 32 10 - 45 Units/L [facility] Blood specimen (specimen) 03/11/2021 9:04 AM CDT 03/11/2021 9:24 AM CDT Brijesh Lynch MD LAB BLOOD ORDERABLES Final Resu lt [facility] [address] [place] [address] * CBC with auto differential (03/11/2021 9:04 AM CDT) Pathologist [facility] WBC 7.0 3.8 - 9.9 K/cumm [facility] Hgb 14.1 11.9 - 15.5 g/dL [facility] Hct 41.2 35.6 - 45.5 % [facility] Plt 336 150 - 400 K/cumm [facility] MPV 9.3 9.1 - 12.3 fL [facility] RBC 4.55 3.90 - 5.20 M/cumm [facility] MCV 90.5 81.3 - 96.4 fL [facility] MCH 31.0 27.1 - 33.3 pg [facility] MCHC 34.2 32.3 - 35.7 g/dL [facility] RDW CV 12.8 11.1 - 14.9 % [facility] RDW SD 41.9 35.7 - 48.1 fL [facility] NRBC abs 0.00 0.00 - 0.01 K/cumm [facility] Blood specimen (specimen) 03/11/2021 9:04 AM CDT 03/11/2021 9:24 AM CDT Brijesh Lynch MD LAB BLOOD ORDERABLES Final Resu lt [facility] [address] [place] [address] documented in this encounter Visit Diagnoses Diagnosis Muscle spasms of both lower extremities- Primary Neck pain Cervicalgia Mild persistent asthma without complication Allergy, subsequent encounter Gastroesophageal reflux disease with esophagitis without hemorrhage Screening cholesterol level Screening for lipoid disorders documented in this encounter Discontinued Medications Medication Sig Discontinue Reason Start Date End Da te traMADoL (ULTRAM) 50 mg tabletIndications:Lumbar back pain Take 1 tablet (50 mg total) by mouth every 8 (eight) hours as needed for pain Reorder 01/28/2021 03/10/2021 documented as of this encounter
--- OUTSIDE RECORDS SUMMARY | 2024-09-03 19:39 | XMS_ITS | Encounter Summary ---
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
--- OUTSIDE RECORDS SUMMARY | 2024-09-03 19:39 | XMS_ITS | Encounter Summary ---
Author Organization [facility] Address [address] [place] [address] Care Team Providers Care Home Health Lvn Name Role Phone Unavailable Primary Care Provider Unavailabl e Reason for Visit * Reason Comments Hand Pain f/u Injections Encounter Details Date Type Department Care Team (Latest Contact Info) Description 12/24/2020 8:30 AM CDT Office Visit [facility] Family Medicine [address] [place] [address] Brijesh Lynch MD [address] [place] [address] Primary osteoarthritis involving multiple joints (Primary Dx); Mild intermittent asthma, unspecified whether complicated; Recurrent major depressive disorder, in full remission (CMS/HCC); Gastroesophageal reflux disease with esophagitis without hemorrhage; Lumbar back pain with radiculopathy affecting left lower extremity; Pain, dental Social History Tobacco Use Types Packs/Day Years [...] on file 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 Gender Identity Female 03/27/2020 5:01 PM CDT Sexual Orientation Lesbian 03/27/2020 5: 01 PM CDT documented as of this encounter Last Filed Vital Signs Vital Sign Reading Time Taken Comments Blood Pressure 110/80 12/24/2020 8:32 AM CDT Pulse 78 12/24/2020 8:32 AM CDT Temperature - - Respiratory Rate 16 12/24/2020 8:32 AM CDT Oxygen Saturation - - Inhaled Oxygen Concentration - - Weight 86.6 kg (191 lb) 12/24/2020 8:32 AM CDT Height 167.6 cm (5' 5.98 ) 12/24/2020 8:32 AM CD T Body Mass Index 30.84 12/24/2020 8:32 AM CDT documented in this encounter Ordered Prescriptions Prescription Sig Dispense Quantity Refills Last Filled Start Date End Date clindamycin (CLEOCIN) 150 mg capsule Take 1 capsule (150 mg total) by mouth 4 (four) times a day for 10 days 40 capsule 12/24/2020 documented in this encounter Progress Notes * Brijesh Lynch MD - 12/24/2020 8:30 AM CDT Images from the original note were not included. Subjective/Objective Patient ID: Chrissy Kilgore is a 50 y.o. female. Visit Date: 12/24/2020 Chief Complaint Hand Pain (f/u Injections ) HPI Returns to the office for repeat evaluation. States that the asthma is under control and the gerd is under control. The migraines are under control. The depression is under control. The arthritis is painful. Taking her meds as directed. Review of [...] Cervical back: Neck supple. Comments: Multiple joint arthritis with pain Skin: General: Skin is warm and dry. Capillary Refill: Capillary refill takes less than 2 seconds. Neurological: Mental Status: She is alert and oriented to person, place, and time. Psychiatric: Behavior: Behavior normal. Assessment/Plan Diagnoses and all orders for this visit: Primary osteoarthritis involving multiple joints (M89.49) (Primary) Comments: condiotn chronic nad at goal with the chronic pain and will be rheumatology. refill hte pain meds. Mild intermittent asthma, unspecified whether complicated (J45.20) Comments: condtion chronic and at goal. continue the inhalers. Recurrent major depressive disorder, in full remission (CMS/HCC) (F33.42) Comments: conditon chronic and at goal. conitnue the lexapro Gastroesophageal reflux disease with esophagitis without hemorrhage (K21.00) Comments: condtoin chronic and at goal. continue the protonix Lumbar back pain with radiculopathy affecting left lower extremity (M54.16) Comments: conditoin acute. mri, toradol 60 mg, vicoden tid, flexeril. Pain, dental (K08.89) Comments: conditon chronic and not at goal. order the clindamycin Other orders - clindamycin (CLEOCIN) 150 mg capsule; Take 1 capsule (150 mg total) by mouth 4 (four) times a dayfor 10 days Brijesh Lynch MD documented in this encounter Plan of Treatment Not on file documented as of this encounter Visit Diagnoses Diagnosis Primary osteoarthritis involving multiple joints- Primary Mild intermittent asthma, unspecified whether complicated Recurrent major depressive disorder, in full remission ([facility]) (HCC) Gastroesophageal reflux disease with esophagitis without hemorrhage Lumbar back pain with radiculopathy affecting left lower extremity Pain, dental documented in this encounter
--- OUTSIDE RECORDS SUMMARY | 2024-09-03 19:39 | XMS_ITS | Encounter Summary ---
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 Gender Identity Female 03/27/2020 5:01 PM CDT Sexual Orientation Lesbian 03/27/2020 5: 01 PM CDT documented as of this encounter Plan of Treatment Not on file documented as of this encounter Procedures Procedure Name Priority Date/Time Associated Diagnosis Comments CARDIOLOGY DOCUMENT SCAN 04/15/2021 documented in this encounter Results * CARDIOLOGY DOCUMENT SCAN (04/15/2021) Anatomical Region Laterality Modality Other us Provider Scanning CV CARDIAC SERVICES PROCEDURES Final Result documented in this encounter Visit Diagnoses Not on filedocumented in this encounter Care Teams Database Technician Relationship Specialty Start Date End Date Jeff Guzman PA [address] [place] [address] PCP - General Family Medicine 06/21/22 02/17/23 Ramonita Crawford NP [id number] [address] PCP - General Family Medicine 02/18/23 Angeles Hernandez MD [address] [place], [place] [id number] Referring Physician Gynecology 07/21/21 documented as of this encounter
--- OUTSIDE RECORDS SUMMARY | 2024-09-03 19:39 | XMS_ITS | Encounter Summary ---
Author Organization [facility] Address [address] [place] [address] Care Team Providers Care Volunteer Services Manager Name Role Phone Unavailable Primary Care Provider Unavailabl e Reason for Referral * Diagnostic Imaging (Routine) - Closed Specialty Diagnoses / Procedures Referred By Sharlene t Referred To Contact Diagnoses Right elbow pain Procedures XR Elbow Right 3+ Vw Brijesh Lynch MD Phone: tel: fax: [address] [address] Referral ID Status Reason Start Date Expiration Date Visits Re quested Visits Authorized [id number] Closed 10/24/2020 11/23/2021 1 1 R PRINT OPERATOR Encounter Details Date Type Department Care Team (Late st Contact Info) Description 10/31/2020 8:37 AM LASER PRINT OPERATOR Hospital Encounter [facility] Brijesh Lynch MD [address] [place] [id number] Right elbow pain Social History Tobacco Use Types Packs/Day [...] on file 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 1 Syringe 5 10/24/2020 2 escitalopram (LEXAPRO) 10 mg tabletIndications :Moderate episode of recurrent major depressive disorder (HCC) Take 1 tablet (10 mg total) by mouth daily 30 tablet 5 05/08/2020 1 HYDROcodone-aceta minophen (NORCO) 5-325 mg per tabletIndications :Pain Take 1 tablet by mouth every 8 (eight) hours as needed for pain 90 tablet 10/16/2020 1 montelukast (SINGULAIR) 10 mg tabletIndications :Seasonal allergic rhinitis due to pollen Take 1 tablet (10 mg total) by mouth nightly 30 tablet 5 07/10/2020 1 nystatin 100,000 unit/mL suspension Qid 06/08/[address] (PROTONIX) 40 mg EC tabletIndications :Gastroesophageal reflux disease with esophagitis without hemorrhage Take 1 tablet (40 mg total) by mouth daily 30 tablet 5 07/10/2020 1 TiZANidine (ZANAFLEX) 4 mg capsuleIndication s:Muscle pain Take 1 capsule (4 mg total) by mouth 3 (three) times a day 90 capsule 11 10/24/2020 1 documented as of this encounter Plan of Treatment Not on file documented as of this encounter Procedures Procedure Name Priority Date/Time Associated Diagnosis Comments XR ELBOW RIGHT 3 OR MORE VIEWS Schedule Routine, Read Routine (OP Routine) 10/31/2020 8:39 AM LASER PRINT OPERATOR Right elbow pain documented in this encounter Results * XR Elbow Right 3+ Vw (10/31/2020 8:39 AM LASER PRINT OPERATOR) Anatomical Region Laterality Modality Upper Extremities, Elbow Right Radiogr aphic Imaging 10/31/2020 4:02 PM LASER PRINT OPERATOR Narrative 10/31/2020 4:04 PM LASER PRINT OPERATOR Patient Name: MAX DE LA GARZA ?Ordering Dr: Brijesh Lynch MD ?? D.O.B: 1970 ? Exam Date: 10/31/20 ?? 0839 ?? Age: 50 ?Sex: Female ? MR#: [id number] ?? Loc: ? RADIOLOGY REPORT ?? Order #[id number] ?? Radiology ? Elbow RT 3 View [...] 4:04 PM ?? T: ? Report ID: [id number] ?? Reading Location: ??[id number] ? REPORT ELECTRONICALLY SIGNED IN OTHER VENDOR SYSTEM ?? Resulting Agency Comment O Procedure Note Will Arce MD - 10/31/2020 Patient Name: MAX DE LA GARZA Dr: Brijesh Lynch MD D.O.B: 1970 Exam Date: 10/31/2039 Age: 50 Sex: Female MR#: [id number] Loc: RADIOLOGY REPORT Order #[id number] Radiology Elbow RT 3 View Min Signed [...] Will Arce M.D. AG T: Report ID: [id number] Reading Location: [place] [address] REPORT ELECTRONICALLY SIGNED IN OTHER VENDOR SYSTEM Brijesh Lynch MD IMG XR PROCEDURES Final Result documented in this encounter Visit Diagnoses Diagnosis Right elbow pain Pain in joint, upper arm documented in this encounter
--- OUTSIDE RECORDS SUMMARY | 2024-09-03 19:39 | XMS_ITS | Encounter Summary ---
Author Organization [facility] Address [address] [place] [address] Phone Care Team Providers Care Wool Presser Name Role Phone Unavailable Primary Care Provider Unavailabl e Reason for Referral * (Routine) - Closed Specialty Diagnoses / Procedures Referred By Contac t Referred To Contact Diagnoses Epiretinal membrane (ERM) of both eyes Procedures OCT, Retina - OU - Both Eyes Ángel Silva MD Phone: tel: fax: [facility] (All Locations) Referral ID Status Reason Start Date Expiration Date Visits Re quested Visits Authorized [id number] Closed 08/26/2020 09/25/2021 1 1 ATION SPECIALIST Reason for Visit * 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 Encounter Details Date Type Department Care Team (Late st Contact Info) Description 08/26/2020 10:00 AM EDUCATION SPECIALIST Office Visit [facility] Ophthalmology [facility] 6th [place] [id number] Basilio Jay MD PhD [address] [place] [id number] Epiretinal membrane (ERM) of both eyes (Primary Dx); Vitreous syneresis of both eyes; PCO (posterior capsular opacification), left; Age-related nuclear cataract of right eye Social [...] on file 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 ATION SPECIALIST documented in this encounter Progress Notes * Basilio Jay MD - 08/26/2020 10:00 AM CST Assessment/Plan Diagnoses and all orders for this visit: Epiretinal membrane (ERM) of both eyes (Primary) Assessment & Plan: Patient denies metamorphopsia, good visual acuity. Defer intervention at this time for ERM. Orders: - OCT, Retina - OU - Both Eyes Vitreous syneresis of both eyes Assessment & Plan: Significant floaters both eyes (OU), but tolerable for patient for now. Will plan for YAG cap OS first. I will see her again after the act to determine if her symptoms are improved and also to monitor the macular pucker. PCO (posterior capsular opacification), left Assessment & Plan: Has mild PCO OS. Will send for YAG Cap to see if helps patient's constant blurriness . Patient understands that this will not improve floaters or ERM, which would require a retina surgery. Patient tolerates floaters at this time and no metamorphopsia from ERM. I think such a staged approach is reasonable and the patient agreed Age-related nuclear cataract of right eye Assessment & Plan: SHE WILL CONTINUE TO FOLLOW WITH DR. Yuen Procedures Done Today OCT, Retina - OU - Both Eyes Right Eye Quality was good. Scan locations included subfoveal. Left Eye Quality was good. Scan locations included subfoveal. Notes right eye (OD) preserved foveal contour, trace epiretinal membrane (ERM) superiorly left eye (OS) moderate epiretinal membrane (ERM) with preserved foveal contour Plan For Next Visit Return Darin n/a YAG OS robby Jay 4 months OCT and DFE. I have seen and examined the patient. I agree with the findings and plan of care as documented in the resident's note.. ATION SPECIALIST documented in this encounter Miscellaneous Notes * Assessment & Plan Note - Basilio Jay MD - 08/26/2020 11:38 AM EDUCATION SPECIALIST Associated Problem(s): Pseudophakia of right eye SHE WILL CONTINUE TO FOLLOW WITH DR. Yuen ATION SPECIALIST * Assessment & Plan Note - Ángel Silva MD - 08/26/2020 11:22 AM EDUCATION SPECIALIST Associated Problem(s): PCO (posterior capsular opacification), left Has mild PCO OS. Will send for YAG Cap to see if helps patient's constant blurriness . Patient understands that this will not improve floaters or ERM, which would require a retina surgery. Patient tolerates floaters at this time and no metamorphopsia from ERM. I think such a staged approach is reasonable and the patient agreed ATION SPECIALIST ATION SPECIALIST * Assessment & Plan Note - Ángel Silva MD - 08/26/2020 11:21 AM EDUCATION SPECIALIST Associated Problem(s): Epiretinal membrane (ERM) of both eyes Patient denies metamorphopsia, good visual acuity. Defer intervention at this time for ERM. ATION SPECIALIST * Assessment & Plan Note - Ángel Silva MD - 08/26/2020 11:20 AM EDUCATION SPECIALIST Associated Problem(s): Vitreous syneresis of both eyes Significant floaters both eyes (OU), but tolerable for patient for now. Will plan for YAG cap OS first. I will see her again after the act to determine if her symptoms are improved and also to monitor the macular pucker. ATION SPECIALIST ATION SPECIALIST documented in this encounter Plan of Treatment Not on file documented as of this encounter Procedures Procedure Name Priority Date/Time Associated Diagnosis Comments OCT, RETINA - OU - BOTH EYES Routine 08/26/2020 11:37 AM EDUCATION SPECIALIST Epiretinal membrane (ERM) of both eyes documented in this encounter Results * OCT, Retina - OU - Both Eyes (08/26/2020 11:37 AM EDUCATION SPECIALIST) Anatomical Region Laterality Modality Head Optical Coherenc e Tomography Narrative 08/26/2020 11:37 AM EDUCATION SPECIALIST Right Eye Quality was good. Scan locations included subfoveal. Left Eye Quality was good. Scan locations included subfoveal. Notes right eye (OD) preserved foveal contour, trace epiretinal membrane (ERM) superiorly left eye (OS) moderate epiretinal membrane (ERM) with preserved foveal contour us Ángel Silva MD OPHTH TOMOGRAPHY Final Re sult documented in this encounter Visit Diagnoses Diagnosis Epiretinal membrane (ERM) of both eyes- Primary Vitreous syneresis of both eyes PCO (posterior capsular opacification), left Unspecified after-cataract Age-related nuclear cataract of right eye documented in this encounter Eye Exam Visual Acuity (Snellen - Linear) Right eye Left eye Dist cc 20/20 20/25 -2 Correction: Glasses Tonometry (Tonopen, 10:28 AM) Right eye Left eye Pressure 20 20 Pupils Dark Light Shape React APD Right eye 6 5 Round Brisk None Left eye 6 5 Round Brisk None Visual Phillips Right eye Left eye Full Full Extraocular Movement Right eye Left eye Full, Ortho Full, Ortho Neuro/Psych Oriented x3: Yes Mood/Affect: Normal Dilation Both eyes: 1.0% Mydriacyl, 2 .5% Phenylephrine @ 10:29 AM Slit Lamp Exam Right eye Left eye [...] Vessels Normal Normal Periphery retina flat retina flat, Mul tiple vitreous (vit) opacities
--- OUTSIDE RECORDS SUMMARY | 2024-09-03 19:40 | XMS_ITS | Encounter Summary ---
Author Organization [facility] Address [address] [place] [address] Care Team Providers Care Audit Clerk Name Role Phone Unavailable Primary Care Provider Unavailabl e Reason for Visit * Diagnostic Imaging (Routine) - Closed Specialty Diagnoses / Procedures Referred By Sharlene angulo Referred To Contact Procedures Breast Imaging US Outside Reference Transcribed Order, Provider Referral ID Status Reason Start Date Expiration Date Visits Re quested Visits Authorized [id number] Closed 02/01/2022 03/03/2023 1 1 Encounter Details Date Type Department Care Team ([facility] st Contact Info) Description 01/02/2016 Ancillary Procedure [facility] Outside Images [address] [place] [address] Social History Tobacco Use Types Packs/Day Years Used Date Smoking Tobacco: Never Assessed Comments Unknown Sex and Gender Information Value Date Recorded Sex Assigned at Not on file 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 us Provider Transcribed Order IMG MAMMO PROCEDURES Final Result NICOLETTE_CINDY_MHB_MHE documented in this encounter Visit Diagnoses Not on filedocumented in this encounter
--- OUTSIDE RECORDS SUMMARY | 2024-09-03 19:40 | XMS_ITS | Encounter Summary ---
Author Organization [facility] Address [address] [place] [address] Care Team Providers Care Aviation Electrical Technician Name Role Phone Unavailable Primary Care Provider Unavailabl e Reason for Visit * Reason Comments Establish Care Encounter Details Date Type Department Care Team (Latest Contact Info) Description 03/14/2020 9:00 AM CDT Office Visit [facility] [address] [place] [address] Brijesh Lynch MD [address] [place] [address] Asthma (Primary Dx); Irritable bowel syndrome with diarrhea; Moderate episode of recurrent major depressive disorder (CMS/HCC); Bilateral carpal tunnel syndrome; Idiopathic chronic gout of foot without tophus, unspecified laterality; Encounter for well woman exam with routine gynecological exam; Acute pain of right shoulder; Muscle spasms of both lower extremities; Fatigue, unspecified type Social History Tobacco Use Types Packs/Day Years [...] on file 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 Gender Identity Female 03/27/2020 5:01 PM CDT Sexual Orientation Lesbian 03/27/2020 5: 01 PM CDT documented as of this encounter Last Filed Vital Signs Vital Sign Reading Time Taken Comments Blood Pressure 116/80 03/14/2020 8:54 AM CDT Pulse 68 03/14/2020 8:54 AM CDT Temperature 36.1 ??C (96.9 ??F) 03/14/2020 8:54 AM CD T Respiratory Rate 16 03/14/2020 8:54 AM CDT Oxygen Saturation 97% 03/14/2020 8:54 AM CDT Inhaled Oxygen Concentration - - Weight 89.8 kg (198 lb) 03/14/2020 8:54 AM CDT Height 182.9 cm (6') 03/14/2020 8:54 AM CDT Body Mass Index 26.85 03/14/2020 8:54 AM CDT documented in this encounter Ordered Prescriptions Prescription Sig Dispense Quantity Refills Last Filled Start Date End Date DULoxetine DR (CYMBALTA) 30 mg capsuleIndications :Idiopathic chronic gout of foot without tophus, unspecified laterality 30mg daily for 2 wks, then 60mg daily for 2 wks, Will eventually take 90mg daily 42 capsule 03/14/2020 0 dicyclomine (BENTYL) 10 mg capsuleIndications :Irritable bowel syndrome with diarrhea Take 1 capsule (10 mg total) by mouth 2 (two) times a day 60 capsule 3 03/14/2020 0 documented in this encounter Progress Notes * Brijesh Lynch MD - 03/14/2020 9:00 AM CDT Images from the original note were not included. Subjective/Objective Patient ID: Chrissy Kilgore is a 49 y.o. female. Visit Date: 03/14/2020 Chief Complaint Establish Care HPI Presents to the office for initial evaluatoin. States that she moved her from [place]. H/o astham most of adult life. Has ibs with diarrhea for 25 years. Has depression nad anxiety for a couple of years. Was on cymbalta at 90 mg but is off it and needs to go back on it. Has right shoulder pain andstates that the pain keeps her up. Has bilateral carpal tunnel syndrome and needs to see hand surgeon. Has a history of gout. Review of Systems Constitutional: Negative for activity change. HENT: Negative for congestion. Eyes: Negative for visual disturbance. Respiratory: Negative for cough and chest tightness. Cardiovascular: Negative for chest pain and leg swelling. Gastrointestinal: Positive for diarrhea. Negative for abdominal pain, blood in stool, constipation and nausea. Genitourinary: Negative for difficulty urinating. [...] and time. Psychiatric: Behavior: Behavior normal. Assessment/Plan PHQ Screening Over the last 2 weeks, how often have you been bothered by any of the following problems? Little Interest or Pleasure in Doing Things: More than half the days Feeling Down, Depressed, or Hopeless: Several days PHQ-2 Total Score (If total score is 3 or more points, staff should administer the PHQ-9): 3 Over the past 2 weeks, how often have you been bothered by any of the following problems? Little Interest or Pleasure in Doing Things: More than half the days Feeling Down, Depressed, or Hopeless: Several days Trouble Falling or Staying Asleep, or Sleeping too Much: Nearly every day Feeling Tired or Having Little Energy: Nearly every day Poor Appetite or Overeating: Nearly every day Feeling Bad About Yourself - or That You are a Failure or Have Let Yourself or Your Family Down: Several days Trouble Concentrating on Things, Such as Reading the Newspaper or Watching Television: Nearly everyday Moving or Speaking so Slowly That Other People Could Have Noticed, or the Opposite - Being so Fidgety or Restless That You Have Been Moving Around a lot More Than Usual: Nearly every day Thoughts That You Would be Better off , or of Hurting Yourself in Some Way: Not at all PHQ-9 Total Score: 16 If you checked off any problems, how difficult have these problems made it for you to do your work,take care of things at home, or get along with other people?: Somewhat difficult Diagnoses and all orders for this visit: Asthma (J45.909) (Primary) Comments: conditon chronic stbale continue nebs adn albuterol. Irritable bowel syndrome with diarrhea (K58.0) Comments: conditoin chronic and worse. bentyl 10 mg bid Orders: - dicyclomine (BENTYL) 10 mg capsule; Take 1 capsule (10 mg total) by mouth 2 (two) times a day Moderate episode of recurrent major depressive disorder (CMS/HCC) (F33.1) Comments: conditon chronic and not controlled. cymbalta 30 mg for 2 weeks, 60 mg for 2 weeks nad 90 mg adn continue Bilateral carpal tunnel syndrome (G56.03) Comments: condition chrnic and worse. refert to dr. 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 paul Orders: - Ambulatory referral to Orthopedic Surgery; Future Muscle spasms of both lower extremities (M62.838) Comments: conditoin acute. check labs. Orders: - Basic metabolic panel; Future - Magnesium; Future Fatigue, unspecified type (R53.83) Comments: condition chronic and worse. chck labs. Orders: - Vitamin B12; Future - TSH; Future Brijesh Lynch MD documented in this encounter Plan of Treatment Not on file documented as of this encounter Procedures Procedure Name Priority Date/Time Associated Diagnosis Comments URIC ACID Routine 03/14/2020 10:02 AM CDT Idiopathic chronic gout of foot without tophus, unspecified laterality MAGNESIUM Routine 03/14/2020 10:02 AM CDT Muscle spasms of both lower extremities BASIC METABOLIC PANEL Routine 03/14/2020 10:02 AM CDT Muscle spasms of both lower extremities documented in this encounter Results * Magnesium (03/14/2020 10:02 AM CDT) Magnesium 1.9 1.6 - 2.6 mg/dL [facility] Comment: Magnesium sulfate therapy: ??3.0-9.1 mg/dL Blood specimen (specimen) 03/14/2020 10:02 AM CDT 03/14/2020 10:19 AM CDT Narrative Resulting Agency Comment CLI us Brijesh Lynch MD LAB BLOOD ORDERABLES Final Resu lt [facility] [address] [place] [address], [facility] [phone] * Basic metabolic panel (03/14/2020 10:02 AM CDT) Sodium 143 135 - 145 mmol/L [facility] Potassium 4.0 3.3 - 5.1 mmol/L [facility] Chloride 108 96 - 108 mmol/L [facility] Carbon Dioxide 26 22 - 32 mmol/L [facility] Anion Gap 9 7 - 16 [facility] Glucose 99 70 - 100 mg/dL [facility] BUN 20 8 - 25 mg/dL [facility] Creatinine 0.6 0.5 - 1.1 mg/dL [facility] Comment: NOTE: Estimated GFR (Cockroft-Gault) will NOT be calculated unless patient Height and Weight were entered. Also, Kidney Disease Stage (GFR) and Estimated GFR (Cockroft-Gault) will NOT be calculated if Creatinine result is <0.2. Kidney Disease Stage >90 mL/MIN [facility] Comment: NOTE; ??The GFR is an estimated value using the creatinine, sex, age, and race of the patient. THE Estimated Kidney Disease GFR is validated for AGES 18-70 YEARS STAGE ?mL/Min ?DESCRIPTION ??1 ?90 mL/min or more ?Normal or elevated GFR ??2 ? 60-89 mL/min ?Mildly decreased GFR ??3 ? 30-59 mL/min ?Moderately decreased GFR ??4 ? 15-29 mL/min ?Severely decreased GFR ??5 ? <15 mL/min ? Kidney failure or on dialysis Calcium 9.2 8.6 - 10.3 mg/dL [facility] Blood specimen (specimen) 03/14/2020 10:02 AM CDT 03/14/2020 10:19 AM CDT Narrative Resulting Agency Comment CLI us Brijesh Lynch MD LAB BLOOD ORDERABLES Final Resu lt [facility] [address] [place] [address], [facility] [phone] * Uric acid (03/14/2020 10:02 AM CDT) Uric Acid 4.6 2.5 - 7.0 mg/dL [facility] Blood specimen (specimen) 03/14/2020 10:02 AM CDT 03/14/2020 10:19 AM CDT Narrative Resulting Agency Comment CLI us Brijesh Lynch MD LAB BLOOD ORDERABLES Final Resu lt [facility] [address] [place] [address], [facility] [phone] documented in this encounter Visit Diagnoses Diagnosis Asthma- Primary Unspecified asthma Irritable bowel syndrome with diarrhea Irritable bowel syndrome Moderate episode of recurrent major depressive disorder (HCC) Bilateral carpal tunnel syndrome Carpal tunnel syndrome Idiopathic chronic gout of foot without tophus, unspecified laterality Encounter for well woman exam with routine gynecological exam Acute pain of right shoulder Muscle spasms of both lower extremities Fatigue, unspecified type documented in this encounter Orders Lab Orders Without Results Count Last Ordered D ate First Ordered Date TSH 03/14/2020 VITAMIN B12 03/14/2020 documented in this encounter
--- OUTSIDE RECORDS SUMMARY | 2024-09-03 19:40 | XMS_ITS | Encounter Summary ---
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
--- OUTSIDE RECORDS SUMMARY | 2024-09-03 19:40 | XMS_ITS | Encounter Summary ---
Author Organization [facility] Address [address] [place] [address] Care Team Providers Care Pin Game Machine Inspector Name Role Phone Unavailable Primary Care Provider Unavailabl e Reason for Visit * Reason Comments Follow-up asthma Encounter Details Date Type Department Care Team (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 Gender Identity Female 03/27/2020 5:01 PM CDT Sexual Orientation Lesbian 03/27/2020 5: 01 PM CDT documented as of this encounter Last Filed Vital Signs Vital Sign Reading Time Taken Comments Blood Pressure 132/80 04/14/2020 1:47 PM CDT Pulse 65 04/14/2020 1:47 PM CDT Temperature 37 ??C (98.6 ??F) 04/14/2020 1:47 PM CDT Respiratory Rate 16 04/14/2020 1:47 PM CDT Oxygen Saturation 97% 04/14/2020 1:47 PM CDT Inhaled Oxygen Concentration - - Weight 87.3 kg (192 lb 6.4 oz) 04/14/2020 1:47 P M CDT Height 182.9 cm (6') 04/14/2020 1:47 PM CDT Body Mass Index 26.09 04/14/2020 1:47 PM CDT documented in this encounter Ordered Prescriptions Prescription Sig Dispense Quantity Refills Last Filled Start Date End Date methocarbamoL (ROBAXIN) 500 mg tabletIndications: Lumbar back pain Take 1 tablet (500 mg total) by mouth 4 (four) times a day as needed for muscle spasms 60 tablet 04/14/2020 06/13/2020 traMADoL (ULTRAM) 50 mg tabletIndications: Lumbar back pain Take 1 tablet (50 mg total) by mouth every 8 (eight) hours as needed for pain 90 tablet 04/14/2020 05/22/2020 documented in this encounter Progress Notes * Brijesh Lynch MD - 04/14/2020 1:45 PM CDT Images from the original note were not included. Subjective/Objective Patient ID: Chrissy Kilgore is a 49 y.o. female. Visit Date: 04/14/2020 Chief Complaint Follow-up (asthma) HPI Returns to the office for repeat evaluation. States that the cymbalta is making her very tired. States that she is sleeping all day. The asthma is under control and the ibs is stable. Taking her medsas directed. Has the lumbar back pain Review of Systems Constitutional: Negative for activity change. HENT: Negative for congestion. Eyes: Negative for visual disturbance. Respiratory: Negative for cough and chest tightness. Cardiovascular: Negative for chest pain and leg swelling. Gastrointestinal: Negative for abdominal pain, blood in stool, constipation, diarrhea and nausea. Ibs Genitourinary: Negative for difficulty urinating. Musculoskeletal: Positive for back pain. Negative for arthralgias and gait problem. Skin: Negative for rash. Neurological: Negative for headaches. Psychiatric/Behavioral: Negative for sleep disturbance. The patient is not nervous/anxious. Depression Physical Exam Vitals signs reviewed. Constitutional: General: [...] visit: Lumbar back pain (M54.5) (Primary) Comments: conditoin acute. tramadol and robaxin Irritable bowel syndrome with diarrhea (K58.0) Comments: condition chronic stblae continue bentyl. Moderate episode of recurrent major depressive disorder (CMS/HCC) (F33.1) Comments: conditon acute. decrease the cymbalta to 30 mg per day for 2 weeks. Asthma (J45.909) Comments: conditon chronic stabel continue care Brijesh Lynch MD documented in this encounter Plan of Treatment Not on file documented as of this encounter Visit Diagnoses Diagnosis Lumbar back pain- Primary Lumbago Irritable bowel syndrome with diarrhea Irritable bowel syndrome Moderate episode of recurrent major depressive disorder (HCC) Asthma Unspecified asthma documented in this encounter
--- OUTSIDE RECORDS SUMMARY | 2024-09-03 19:40 | XMS_ITS | Encounter Summary ---
Author Organization [facility] Medical [facility] Address [address] [place] [address] Care Team Providers Care Youth Specialist Name Role Phone Unavailable Primary Care Provider Unavailabl e Reason for Visit * Reason Comments sinus pressure Swollen Glands asthma flare Encounter Details Date Type Department Care Team ([facility] st Contact Info) Description 05/30/2020 8:45 AM CDT Office Visit [facility] Family Medicine [address] [place] [address] Brijesh Lynch MD [address] [place] [id number] Acute non-recurrent maxillary sinusitis (Primary Dx); Mild intermittent asthma, unspecified whether complicated; Irritable bowel syndrome with constipation Social History Tobacco Use Types Packs/Day [...] file 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 Gender Identity Female 03/27/2020 5:01 PM CDT Sexual Orientation Lesbian 03/27/2020 5: 01 PM CDT documented as of this encounter Last Filed Vital Signs Vital Sign Reading Time Taken Comments Blood Pressure 110/82 05/30/2020 9:18 AM CDT Pulse 76 05/30/2020 9:18 AM CDT Temperature 36.9 ??C (98.5 ??F) 05/30/2020 9:18 AM CD T Respiratory Rate 16 05/30/2020 9:18 AM CDT Oxygen Saturation 98% 05/30/2020 9:18 AM CDT Inhaled Oxygen Concentration - - Weight 83.9 kg (185 lb) 05/30/2020 9:18 AM CDT Height 182.9 cm (6') 05/30/2020 9:18 AM CDT Body Mass Index 25.09 05/30/2020 9:18 AM CDT documented in this encounter Ordered Prescriptions Prescription Sig Dispense Quantity Refills Last Filled Start Date End Date doxycycline (VIBRAMYCIN) 100 mg capsuleIndications :Acute non-recurrent maxillary sinusitis Take 1 tablet/capsule (100 mg total) by mouth 2 (two) times a day for 10 days 20 tablet/capsule 05/30/2020 0 methylPREDNISolone (MEDROL DOSEPACK) 4 mg DosepackIndication s:Acute non-recurrent maxillary sinusitis Take as directed on package. 21 tablet 05/30/2020 0 documented in this encounter Progress Notes * Brijesh Lynch MD - 05/30/2020 8:45 AM CDT Images from the original note were not included. Subjective/Objective Patient ID: Chrissy Kilgore is a 49 y.o. female. Visit Date: 05/30/2020 Chief Complaint sinus pressure, Swollen Glands, and asthma flare HPI Returns to the office for repeat evaluation. States that she has been having sinus drianage and congestion and frontal headache and right maxillary pain. States that the teeth hurt nad she has been having some wheezing and sob. The asthrma is stbale and the ibs is stable. Review of Systems Constitutional: Negative for activity change. HENT: Positive for congestion, postnasal drip and sinus pressure. Eyes: Negative for visual disturbance. Respiratory: Positive for cough. Negative for chest tightness. Cardiovascular: Negative for [...] She is well-developed. HENT: Head: Normocephalic. Comments: Pain to palpation of hte right maxillary sinus. Nasal congestion and cobblestoning in thepop Right Ear: External ear normal. Left Ear: [...] Acute non-recurrent maxillary sinusitis (J01.00) (Primary) Comments: condition acute. kenalog 80 mg, medrol doxy Mild intermittent asthma, unspecified whether complicated (J45.20) Comments: conditoin chronic stable of continue care Irritable bowel syndrome with constipation (K58.1) Comments: condition chornic stbale continue care Brijesh Lynch MD documented in this encounter Plan of Treatment Not on file documented as of this encounter Visit Diagnoses Diagnosis Acute non-recurrent maxillary sinusitis- Primary Mild intermittent asthma, unspecified whether complicated Irritable bowel syndrome with constipation Irritable bowel syndrome documented in this encounter Administered Medications Inactive Administered Medications - up to 3 most recent administrations Medication Order MAR Action Action Date Dose Rate Site triamcinolone (KENALOG) 40 mg/mL injection 80 mg 80 mg, intramuscular, Once, On Tue05/30/20 at 1045, For 1 doseIndications:Acute non-recurrent maxillary sinusitis Given 05/30/2020 10:06 AM CDT 80 mg Other (Comment) documented in this encounter Discontinued Medications Medication Sig Discontinue Reason Start Date End Da te azithromycin (ZITHROMAX) 250 mg tabletIndications:Acute non-recurrent maxillary sinusitis Take 2 tabs (500 mg) by mouth today, than 1 daily for 4 days. Therapy completed 05/22/2020 05/30/2020 methylPREDNISolone (MEDROL DOSEPACK) 4 mg DosepackIndications:Acu te non-recurrent maxillary sinusitis Take as directed on package. Therapy completed 05/22/2020 05/30/2020 documented as of this encounter
--- OUTSIDE RECORDS SUMMARY | 2024-09-03 19:40 | XMS_ITS | Encounter Summary ---
Author Organization [facility] Medical Group Address [address] [place] [address] Care Team Providers Care High Lighter Name Role Phone Unavailable Primary Care Provider Unavailabl e Reason for Visit * Reason Comments Follow-up sinusitis, feeling better but not dealing with thrush Encounter Details Date Type Department Care Team ([facility] st Contact Info) Description 06/09/2020 9:30 AM CDT Office Visit [facility] Family Medicine [address] [place] [address] Brijesh Lynch MD [address] [place] [id number] Oral thrush (Primary Dx); Mild intermittent asthma, unspecified whether complicated; Irritable bowel syndrome with constipation; Recurrent major depressive disorder, in full remission ([facility]) Social History Tobacco Use Types Packs/Day Years [...] on file 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 Gender Identity Female 03/27/2020 5:01 PM CDT Sexual Orientation Lesbian 03/27/2020 5: 01 PM CDT documented as of this encounter Last Filed Vital Signs Vital Sign Reading Time Taken Comments Blood Pressure 122/84 06/09/2020 9:31 AM CDT Pulse 80 06/09/2020 9:31 AM CDT Temperature 36.3 ??C (97.4 ??F) 06/09/2020 9:31 AM CD T Respiratory Rate 18 06/09/2020 9:31 AM CDT Oxygen Saturation 97% 06/09/2020 9:31 AM CDT Inhaled Oxygen Concentration - - Weight 85.7 kg (189 lb) 06/09/2020 9:31 AM CDT Height 182.9 cm (6') 06/09/2020 9:31 AM CDT Body Mass Index 25.63 06/09/2020 9:31 AM CDT documented in this encounter Progress Notes * Brijesh Lynch MD - 06/09/2020 9:30 AM CDT Images from the original note were not included. Subjective/Objective Patient ID: Chrissy Kilgore is a 50 y.o. female. Visit Date: 06/09/2020 Chief Complaint Follow-up (sinusitis, feeling better but not dealing with thrush ) HPI Returns to the office for repeat evaluation. States that the sinus infection is much better. But develped thrush and is on nystatin s/s. The asthma is under control. Taking her meds as directed. The ibsw is under control. Review of Systems Constitutional: Negative for activity change. HENT: Negative for congestion. Thrush Eyes: Negative for visual disturbance. Respiratory: Negative [...] She is well-developed. HENT: Head: Normocephalic. Comments: Oral thrush Right Ear: External ear normal. Left Ear: [...] Diagnoses and all orders for this visit: Oral thrush (B37.0) (Primary) Comments: conditon acute. continue nystatin s/s Mild intermittent asthma, unspecified whether complicated (J45.20) Comments: conditon chronic stbale continue care Irritable bowel syndrome with constipation (K58.1) Comments: conditon chronic stable continue care Recurrent major depressive disorder, in full remission ([facility]) (F33.42) Comments: conditon chronic stable contineu care Brijesh Lynch MD documented in this encounter Plan of Treatment Not on file documented as of this encounter Visit Diagnoses Diagnosis Oral thrush- Primary Candidiasis of mouth Mild intermittent asthma, unspecified whether complicated Irritable bowel syndrome with constipation Irritable bowel syndrome Recurrent major depressive disorder, in full remission ([facility]) (HCC) documented in this encounter Discontinued Medications Medication Sig Discontinue Reason Start Date End Da te methylPREDNISolone (MEDROL DOSEPACK) 4 mg DosepackIndications:Acu te non-recurrent maxillary sinusitis Take as directed on package. Therapy completed 05/30/2020 06/09/2020 documented as of this encounter Historical Medications * This list may reflect changes made after this encounter. albuterol (PROAIR RESPICLICK) 90 mcg/actuation inhaler 2 puffs every 4 (four) hours as needed 10/23/2019 05/18/2021 albuterol 2.5 mg /3 mL (0.083 %) nebulizer solution 0.083 % every 6 (six) hours as needed 10/23/2019 10/24/2020 chlorzoxazone (PARAFON FORTE) 500 mg tablet TK 1 T PO TID PRF MSP 04/01/2020 10/24/2020 nystatin 100,000 unit/mL suspension Qid 06/08/2020 06/09/2021 added in this encounter
--- OUTSIDE RECORDS SUMMARY | 2024-09-03 19:40 | XMS_ITS | Encounter Summary ---
Author Organization [facility] Medical Group Address [address] [place] [address] Care Team Providers Care Food Service Coordinator Name Role Phone Angeles Hernandez MD Unavailable [phone] Jeff Guzman Primary Care Provider [phone] Ramonita Crawford NP Primary Care Provider [phone] Encounter Details Date Type Department Care Team (Late st Contact Info) Description 07/04/2015 Orders Only [facility] Health Information Management [address] [place] [address] Brijesh Lynch MD [address] [place] [address] [address] [place] [address] Social History Tobacco Use Types Packs/Day Years Used Date Smoking Tobacco: Never Assessed Comments Unknown Sex and Gender Information Value Date Recorded Sex Assigned at Not on file 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 Gender Identity Female 03/27/2020 5:01 PM CDT Sexual Orientation Lesbian 03/27/2020 5: 01 PM CDT documented as of this encounter Plan of Treatment Not on file documented as of this encounter Procedures Procedure Name Priority Date/Time Associated Diagnosis Comments SCAN - RADIOLOGY/IMAGING 07/04/2015 documented in this encounter Results * SCAN - RADIOLOGY/IMAGING (07/04/2015) Anatomical Region Laterality Modality Other us Brijesh Lynch MD Final Result documented in this encounter Visit Diagnoses Not on filedocumented in this encounter Care Teams Food Service Coordinator Relationship Specialty Start Date End Date Jeff Guzman PA [address] [place] [address] PCP - General Family Medicine 06/21/22 02/17/23 Ramonita Crawford NP [address] [address] PCP - General Family Medicine 02/18/23 Angeles Hernandez MD [address] [place] [address] Referring Physician Gynecology 07/21/21 documented as of this encounter
--- OUTSIDE RECORDS SUMMARY | 2024-09-03 19:40 | XMS_ITS | Encounter Summary ---
Author Organization [facility] Medical [facility] Address [address] [place] [address] Care Team Providers Care Refrigerating Technician Name Role Phone Angeles Hernandez MD Unavailable [phone] Jeff Guzman Primary Care Provider [phone] Ramonita Crawford NP Primary Care Provider [phone] Encounter Details Date Type Department Care Team (Late st Contact Info) Description 12/26/2015 Orders Only [facility] Health Information Management [address] [place] [address] Brijesh Lynch MD [address] [place] [address] [address] [place] [id number] Social History Tobacco Use Types Packs/Day Years Used Date Smoking Tobacco: Never Assessed Comments Unknown Sex and Gender Information Value Date Recorded Sex Assigned at Not on file 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 Gender Identity Female 03/27/2020 5:01 PM CDT Sexual Orientation Lesbian 03/27/2020 5: 01 PM CDT documented as of this encounter Plan of Treatment Not on file documented as of this encounter Procedures Procedure Name Priority Date/Time Associated Diagnosis Comments SCAN - RADIOLOGY/IMAGING 12/26/2015 documented in this encounter Results * SCAN - RADIOLOGY/IMAGING (12/26/2015) Anatomical Region Laterality Modality Other us Brijesh Lynch MD Final Result documented in this encounter Visit Diagnoses Not on filedocumented in this encounter Care Teams Refrigerating Technician Relationship Specialty Start Date End Date Jeff Guzman PA [address] [place] [address] PCP - General Family Medicine 06/21/22 02/17/23 Ramonita Crawford NP [address] [address] PCP - General Family Medicine 02/18/23 Angeles Hernandez MD [address] [place] [address] Referring Physician Gynecology 07/21/21 documented as of this encounter
--- OUTSIDE RECORDS SUMMARY | 2024-09-03 19:40 | XMS_ITS | Encounter Summary ---
Author Organization [facility] Address [address] [address] Care Team Providers Care Rubber Goods Tester Name Role Phone Unavailable Primary Care Provider Unavailabl e Reason for Referral * Procedure (Routine) - Closed Specialty Diagnoses / Procedures Referred By Sharlene angulo Referred To Contact Diagnoses Rotator cuff impingement syndrome of right shoulder Procedures Large Joint (Hip, Knee, Shoulder) Injection: L subacromial bursa Luis Manuel Barrientos MD [address] [place] [address] [address] [place] [address] Phone: tel: fax: [facility] Referral ID Status Reason Start Date Expiration Date Visits Re quested Visits Authorized [id number] Closed 06/17/2020 07/17/2021 1 1 * Diagnostic Imaging (Routine) - Closed Specialty Diagnoses / Procedures Referred By Sharlene angulo Referred To Contact Diagnoses Rotator cuff impingement syndrome of right shoulder Procedures XR Shoulder Right 2 or More Views Luis Manuel Barrientos MD [address] [place] [address] [address] [place] [address] Phone: tel: fax: [address] [phone] Referral ID Status Reason Start Date Expiration Date Visits Re quested Visits Authorized [id number] Closed 06/13/2020 07/13/2021 1 1 Reason for Visit * Reason Comments Pain Encounter Details Date Type Department Care Team ([facility] st Contact Info) Description 06/17/2020 10:15 AM CDT Office Visit [facility] Orthopedics and Sports Medicine [facility] [phone] Luis Manuel Barrientos MD [address] [facility] [address] [place] [id number] Rotator cuff impingement syndrome of right shoulder (Primary Dx) Social History Tobacco Use Types [...] on file 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 Gender Identity Female 03/27/2020 5:01 PM CDT Sexual Orientation Lesbian 03/27/2020 5: 01 PM CDT documented as of this encounter Last Filed Vital Signs Vital Sign Reading Time Taken Comments Blood Pressure - - Pulse - - Temperature - - Respiratory Rate - - Oxygen Saturation - - Inhaled Oxygen Concentration - - Weight 86.2 kg (190 lb) 06/17/2020 10:27 AM CDT Height 167.6 cm (5' 6 ) 06/17/2020 10:27 AM CDT Body Mass Index 30.67 06/17/2020 10:27 AM CDT documented in this encounter Progress Notes * Luis Manuel Barrientos MD - 06/17/2020 10:15 AM CDTAssociated Order(s): Large Joint (Hip, Knee, Shoulder) Injection: L subacromial bursa Images from the original note were not included. Visit Date: 06/17/2020 CHIEF COMPLAINT Pain of the Right Shoulder HISTORY OF PRESENT ILLNESS Max De La Garza is a 50 y.o. female who was referred by Brijesh Lynch MD. Patient presents to clinic today for evaluation of right shoulder pain. She reports her symptoms started gradually over the last 15 years or so. 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 Over the last 6-8 months her right shoulder has really been bothering her worse than the left. She does have a history of right shoulder dislocation in the remote past, but denies any issues with persistent instability in the shoulder. The pain is mostly localized to the right shoulder, but does sometimes ache down into the biceps muscle. She does have ahistory of carpal tunnel release on the right wrist, and reports some residual intermittent numbness in her fingertips from this; she denies any other focal weakness, radicular pain, numbness, or tingling in the right upper extremity. Her pain has started to wake her up at night and affect her ability to tolerate her daily work duties. PAST MEDICAL HISTORY She has a past medical history of Asthma and Irritable bowel syndrome. PAST SURGICAL HISTORY She has a past surgical history that includes Appendectomy; Breast surgery; Gallbladder surgery; and Ovary surgery. MEDICATIONS She has a current medication list which includes the following prescription(s): albuterol, albuterol, chlorzoxazone, cyclobenzaprine, escitalopram, fluconazole, hydrocodone-acetaminophen, and nystatin. ALLERGIES She is allergic to penicillins. SOCIAL HISTORY reports that she has never smoked. She has never used smokeless tobacco. She reports that she does not drink alcohol or use drugs. FAMILY HISTORY family history includes Breast cancer in her mother; Cancer in her father. ROS Constitutional: Negative for fever. Respiratory: Negative for shortness of breath. PHYSICAL EXAM Alert and Oriented X 3. No apparent distress. Hearing is intact to spoken word. Neck range of motion is full. Negative Spurlings sign. Right shoulder: The arm is warm and well perfused. The patient???s skin is intact across the upper extremity. The patient is tender to palpation across the shoulder. Forward elevation is to 170?? is somewhat painful. External rotation with the arm at the side is to 70??. Internal rotation is to L5 is painful. 4/5 strength with thumbs down abduction is quite painful. 4+/5 strength with resisted external rotation with the arm at the side. The patient has 5/5 strength in the extensor pollucis longus, 1st dorsal interossei, and flexor digitorum profundus in of the 2nd and 5th fingers. Sensation is intact to light touch in the distribution of the radial, ulnar, median, and axillary nerves. Bellypress test is negative. Supraspinatus testing is nonpainful. Infraspinatus testing is painful. Painful arc sign is negative. Norwood Impingement test is negative. Speeds test is negative. Rojas's test is negative. Cross body abduction test reproduces some posterior shoulder pain. IMAGING XR of the right shoulder shows good preservation of the glenohumeral joint space. There are a few small subchondral cysts in the greater tuberosity of the humerus. There is mild narrowing of the acromioclavicular joint. No spurring of the acromial process. This is a relatively normal shoulder XR. Diagnoses and all orders for this visit: Rotator cuff impingement syndrome of right shoulder (Primary) - XR Shoulder Right 2 or More Views; Future - Large Joint (Hip, Knee, Shoulder) Injection: L subacromial bursa ASSESSMENT Max De La Garza is a 50 y.o. female with right shoulder pain concerning for chronic rotator cuff irritation versus partial rotator cuff tear. PLAN The patient's shoulder XR is relatively normal, and she does have good strength on exam, despite her pain. Her pain generator could be a small rotator cuff tear, but could equally likely be some chronic rotator cuff irritation. We reviewed available treatment options including activity modification, oral analgesics, NSAID therapy, cortisone injections, and formal physical therapy. I have recommended a multimodal approach consisting of a subacromial cortisone injection in the right shoulder today in conjunction with home exercises for strengthening and range of motion of the rotator cuff. Patient has elected to proceed with this plan. See procedure note for details. We will plan to see her back in 6 weeks for reevaluation if she is still having problems with her shoulder. Large Joint (Hip, Knee, Shoulder) Injection: L subacromial bursa Performed by: Luis Manuel Barrientos MD Authorized by: Luis Manuel Barrientos MD Large Joint Injection/Aspiration: Consent Given by: Patient Site marked: the procedure site was marked Timeout: prior to procedure the correct patient, procedure, and site was verified Verbal consent obtained: Yes Supporting Documentation: Indications: Pain Procedure Details: Location: Shoulder Site: L subacromial bursa Prep: patient was prepped using a clean technique Needle Size: 25 G Ultrasound guided: No Medications: 40 mg methylPREDNISolone acetate 40 mg/mL; 2 mL lidocaine 10 mg/mL (1 %) Patient tolerance: Patient tolerated the procedure well with no immediate complications Scribe Attestation By signing my name below, I, Tana Howe, attest that this documentation has been prepared under the direction and in the presence of Dr Luis Manuel Barrientos MD Electronically signed: Blanca Reyes. Provider Attestation Luis Manuel Ohara MD personally performed the services described in this documentation. All medical record entries made by the scribe were at my direction and in my presence. I have reviewed thechart and agree that the record reflects my personal performance and is accurate and complete. Electronically Signed: Dr Luis Manuel Barrientos MD . documented in this encounter Plan of Treatment Not on file documented as of this encounter Procedures Procedure Name Priority Date/Time Associated Diagnosis Comments WA ARTHROCENTESIS ASPIR&/INJ MAJOR JT/BURSA W/O US Routine 06/17/2020 10:15 AM CDT Rotator cuff impingement syndrome of right shoulder documented in this encounter Results * WA ARTHROCENTESIS ASPIR&/INJ MAJOR JT/BURSA W/O US (06/17/2020 10:15 AM CDT) Narrative Luis Manuel Barrientos MD - 06/17/2020 10:15 AM CDT Luis Manuel Barrientos MD ? 06/17/2020 12:00 PM Large Joint (Hip, Knee, Shoulder) Injection: L subacromial bursa Performed by: Luis Manuel Barrientos MD Authorized by: Luis Manuel Barrietnos MD Large Joint Injection/Aspiration: ??Consent Given by: ??Patient ??Site marked: the procedure site was marked ?Timeout: prior to procedure the correct patient, procedure, and site was verified ?Verbal consent obtained: Yes ?? Supporting Documentation: ??Indications: ??Pain Procedure Details: ??Location: ??Shoulder ??Site: ??L subacromial bursa ??Prep: patient was prepped using a clean technique ?Needle Size: ??25 G ??Ultrasound guided: No ?Medications: ??40 mg methylPREDNISolone acetate 40 mg/mL; 2 mL lidocaine 10 mg/mL (1 %) ??Patient tolerance: ??Patient tolerated the procedure well with no immediate complications us Luis Manuel Barrientos MD IN CLINIC/BEDSIDE ORDERABL ES Final Result * XR Shoulder Right 2 or More Views (06/17/2020 10:02 AM CDT) Anatomical Region Laterality Modality Upper Extremities, Shoulder Right Radi ographic Imaging 06/17/2020 1:26 PM CDT Narrative 06/17/2020 1:28 PM CDT Patient Name: MAX DE LA GARZA ?Ordering Dr: Luis Manuel Barrientos MD ?? D.O.B: 1970 ? Exam Date: 06/17/20 ?? 1002 ?? Age: 50 ?Sex: Female ? MR#: [id number] ?? Loc: ? RADIOLOGY REPORT ?? Order #[id number] ?? Radiology ? Shoulder RT 2Vw Min [...] T: ??06/17/2020 1:28 PM ? Report ID: [id number] ?? Reading Location: ??[id number] ? REPORT ELECTRONICALLY SIGNED IN OTHER VENDOR SYSTEM ?? Resulting Agency Comment O Procedure Note Jamar Dupont MD - 06/17/2020 Patient Name: ERNESTO DE LA GARZAROBIN Sev[place] Dr: Luis Manuel Barrientos MD D.O.B: 1970 Exam Date: 06/17/20 1002 Age: 50 Sex: Female MR#: [id number] Loc: RADIOLOGY REPORT Order #[id number] Radiology Shoulder RT 2Vw Min (STANDARD) Signed [...] Jamar Dupont M.D. AT: AT Report ID: [id number] Reading Location: [place] [address] REPORT ELECTRONICALLY SIGNED IN OTHER VENDOR SYSTEM Luis Manuel Barrientos MD IMG XR PROCEDURES Final Re sult documented in this encounter Visit Diagnoses Diagnosis Rotator cuff impingement syndrome of right shoulder- Primary Rotator cuff impingement syndrome of right shoulder documented in this encounter Administered Medications Inactive Administered Medications - up to 3 most recent administrations Medication Order MAR Action Action Date Dose Rate Site lidocaine (XYLOCAINE) 10 mg/mL (1 %) injection 2 mL 2 mL, One-Time Injection, Starting on Tue06/17/20 at 1112, For 1 dose, Indications: Administration of Local AnesthesiaIndications:Administrati on of Local Anesthesia Given 06/17/2020 11:12 AM CDT 2 mL methylPREDNISolone acetate (DEPO-medrol) injection 40 mg 40 mg, intra-articular, One-Time Injection, Starting on Tue06/17/20 at 1112, For 1 doseIndications:Rotator cuff impingement syndrome of right shoulder Given 06/17/2020 11:12 AM CDT 40 mg documented in this encounter
--- OUTSIDE RECORDS SUMMARY | 2024-09-03 19:40 | XMS_ITS | Encounter Summary ---
Author Organization [facility] Address [address] [place] [address] Care Team Providers Care Audiology Doctor Name Role Phone Unavailable Primary Care Provider Unavailabl e Reason for Visit * Reason Comments Follow-up lumbar back pain Encounter Details Date Type Department Care Team (Latest Contact Info) Description 04/24/2020 11:30 AM CDT Office Visit [facility] Family Medicine [address] [place] [address] Brijesh Lynch MD [address] [place] [phone] Lumbar back pain with radiculopathy affecting left lower extremity (Primary Dx); Asthma; Irritable bowel syndrome with constipation Social History [...] on file 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 Gender Identity Female 03/27/2020 5:01 PM CDT Sexual Orientation Lesbian 03/27/2020 5: 01 PM CDT documented as of this encounter Last Filed Vital Signs Vital Sign Reading Time Taken Comments Blood Pressure 130/94 04/24/2020 11:31 AM CDT Pulse 95 04/24/2020 11:31 AM CDT Temperature 36.4 ??C (97.5 ??F) 04/24/2020 11:31 AM C DT Respiratory Rate 16 04/24/2020 11:31 AM CDT Oxygen Saturation 99% 04/24/2020 11:31 AM CDT Inhaled Oxygen Concentration - - Weight 86.7 kg (191 lb 3.2 oz) 04/24/2020 11:31 AM CDT Height 182.9 cm (6') 04/24/2020 11:31 AM CDT Body Mass Index 25.93 04/24/2020 11:31 AM CDT documented in this encounter Ordered Prescriptions Prescription Sig Dispense Quantity Refills Last Filled Start Date End Date HYDROcodone-acetami nophen (NORCO) 5-325 mg per tabletIndications:P ain Take 1 tablet by mouth every 8 (eight) hours as needed for pain 90 tablet 04/24/2020 0 cyclobenzaprine (FLEXERIL) 10 mg tabletIndications:L umbar back pain with radiculopathy affecting left lower extremity Take 1 tablet (10 mg total) by mouth 3 (three) times a day as needed for muscle spasms 90 tablet 04/24/2020 0 documented in this encounter Progress Notes * Brijesh Lynch MD - 04/24/2020 11:30 AM CDT Images from the original note were not included. Subjective/Objective Patient ID: Chrissy Kilgore is a 49 y.o. female. Visit Date: 04/24/2020 Chief Complaint Follow-up (lumbar back pain) HPI Returns to the office for repeat evaluation. Returns to the office with cc of severe lumbar back pain with left sciatica that is getting worse. States that she is unable to sit or stand. States that she was seen at [facility] er and ct wa normal. States that she also is having muscle spasms. The ibs is stable andt he depressin is under control. Review of Systems Constitutional: [...] Negative for rash. Neurological: Negative for headaches. Left sciatica Psychiatric/Behavioral: Negative for sleep disturbance. The patient [...] There is no abdominal tenderness. Musculoskeletal: Comments: Left lumbar back pain to palpation and rom. Left scitiaca is noted with a 10 degree straight leg raise. 3/4 muscle strength to the left leg with weakness noted. Skin: General: Skin is warm and dry. Capillary Refill: Capillary refill takes less than 2 seconds. Neurological: Mental Status: She is alert and oriented to person, place, and time. Psychiatric: Behavior: Behavior normal. Assessment/Plan Diagnoses and all orders for this visit: Lumbar back pain with radiculopathy affecting left lower extremity (M54.16) (Primary) Comments: conditoin acute. mri, toradol 60 mg, vicoden tid, flexeril. Orders: - ketorolac (TORADOL) intramuscular injection 60 mg; Inject 2 mL (60 mg total) into the muscle as instructed once - MRI Lumbar Spine W WO Contrast; Future Asthma (J45.909) Comments: conditon chronic stabtel continue care Irritable bowel syndrome with constipation (K58.1) Comments: condition chornic stable continue care Brijesh Lynch MD documented in this encounter Miscellaneous Notes * Addendum Note - Brittany Joseph MA - 04/24/2020 11:30 AM CDTAddended by: BRITTANY JOSEPH on: 05/05/2020 09:10 AM Modules accepted: Orders documented in this encounter Plan of Treatment Not on file documented as of this encounter Visit Diagnoses Diagnosis Lumbar back pain with radiculopathy affecting left lower extremity- Primary Asthma Unspecified asthma Irritable bowel syndrome with constipation Irritable bowel syndrome documented in this encounter Administered Medications Inactive Administered Medications - up to 3 most recent administrations Medication Order MAR Action Action Date Dose Rate Site ketorolac (TORADOL) intramuscular injection 60 mg 60 mg, intramuscular, Once, On Marisol 04/24/20 at 1230, For 1 doseIndications:Lumbar back pain with radiculopathy affecting left lower extremity Given 04/24/2020 12:00 PM CDT 60 mg Other (Comment) documented in this encounter Historical Medications * This list may reflect changes made after this encounter. ibuprofen (ADVIL,MOTRIN) 600 mg tablet Take 600 mg by mouth every 8 (eight) hours as needed 04/23/2020 05/03/2020 diazePAM (VALIUM) 5 mg tablet Take 5 mg by mouth every 6 (six) hours as needed 04/23/2020 06/02/2020 added in this encounter
--- OUTSIDE RECORDS SUMMARY | 2024-09-03 19:40 | XMS_ITS | Encounter Summary ---
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 She can come in any day next week Left pt a vm to call office to schedule nurse visit documented in this encounter Plan of Treatment Not on file documented as of this encounter Visit Diagnoses Not on filedocumented in this encounter
--- OUTSIDE RECORDS SUMMARY | 2024-09-03 19:40 | XMS_ITS | Encounter Summary ---
Author Organization [facility] Address [address] [place] [address] Care Team Providers Care Mohel Name Role Phone Unavailable Primary Care Provider Unavailabl e Reason for Visit * Diagnostic Imaging (Routine) - Closed Specialty Diagnoses / Procedures Referred By Sharlene t Referred To Contact Procedures Breast Imaging Screening Outside Reference Transcribed Order, Provider Referral ID Status Reason Start Date Expiration Date Visits Re quested Visits Authorized [id number] Closed 02/01/2022 03/03/2023 1 1 Encounter Details Date Type Department Care Team ([facility] Contact Info) Description 07/05/2016 Ancillary Procedure [facility] Outside Images [address] [place] [address] Social History Tobacco Use Types Packs/Day Years Used Date Smoking Tobacco: Never Assessed Comments Unknown Sex and Gender Information Value Date Recorded Sex Assigned at Not on file 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 Gender Identity Female 03/27/2020 5:01 PM CDT Sexual Orientation Lesbian 03/27/2020 5: 01 PM CDT documented as of this encounter Plan of Treatment Not on file documented as of this encounter Procedures Procedure Name Priority Date/Time Associated Diagnosis Comments BREAST IMAGING MG SCREENING OUTSIDE REFERENCE Routine 07/05/2016 12:00 AM ORNAMENTAL METAL WORKER HELPER documented in this encounter Results * Breast Imaging Screening Outside Reference (07/05/2016 12:00 AM ORNAMENTAL METAL WORKER HELPER) Narrative ETHAN_STACY_MHE - 02/01/2022 8:54 AM CDT This order has been auto-finalized and does not contain a result. us Provider Transcribed Order IMG MAMMO PROCEDURES Final Result NICOLETTE_[email or web address]_MHE documented in this encounter Visit Diagnoses Not on filedocumented in this encounter
--- OUTSIDE RECORDS SUMMARY | 2024-09-03 19:40 | XMS_ITS | Encounter Summary ---
Author Organization [facility] Healthcare Address [address] [place] [address] Care Team Providers Care Doweling Machine Operator Name Role Phone Unavailable Primary Care Provider Unavailabl e Reason for Referral * Diagnostic Imaging (Routine) - Closed Specialty Diagnoses / Procedures Referred By Contac t Referred To Contact Diagnoses Lumbar back pain with radiculopathy affecting left lower extremity Procedures MRI Lumbar Spine WO Contrast Brijesh Lynch MD Phone: tel: fax: [address] [phone] Referral ID Status Reason Start Date Expiration Date Visits Re quested Visits Authorized [id number] Closed 05/05/2020 11/01/2020 1 1 Encounter Details Date Type Department Care Team (Latest Contact Info) Description 05/06/2020 8:16 PM CDT Hospital Encounter [facility] INTERIM Brijesh Lynch MD [address] [place] [phone] Lumbar back pain with radiculopathy affecting left [...] on file 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 Gender Identity Female 03/27/2020 5:01 PM CDT Sexual Orientation Lesbian 03/27/2020 5: 01 PM CDT documented as of this encounter Medications at Time of Discharge methocarbamoL (ROBAXIN) 500 mg tabletIndications:L umbar back pain Take 1 tablet (500 mg total) by mouth 4 (four) times a day as needed for muscle spasms 60 tablet 04/14/2020 0 albuterol (PROAIR RESPICLICK) 90 mcg/actuation inhaler 2 [...] for muscle spasms 90 tablet 04/24/2020 0 diazePAM (VALIUM) 5 mg tablet Take 5 mg by mouth every 6 (six) hours as needed 04/23/2020 0 dicyclomine (BENTYL) 10 mg capsuleIndications: Irritable bowel syndrome with diarrhea Take 1 capsule (10 mg total) by mouth 2 (two) times a day 60 capsule 3 03/14/[address] (CYMBALTA) 30 mg capsuleIndications: Idiopathic chronic gout of foot without tophus, unspecified laterality TAKE 1 CAPSULE BY MOUTH DAILY FOR 2 WEEKS, THEN 2 CAPSULES DAILY FOR 2 WEEKS 42 capsule 04/15/2020 0 HYDROcodone-acetami nophen (NORCO) 5-325 mg per tabletIndications:P ain Take 1 tablet by mouth every 8 (eight) hours as needed for pain 90 tablet 04/24/2020 0 traMADoL (ULTRAM) 50 mg tabletIndications:L umbar back pain Take 1 tablet (50 mg total) by mouth every 8 (eight) hours as needed for pain 90 tablet 04/14/2020 0 documented as of this encounter Plan of Treatment Not on file documented as of this encounter Procedures Procedure Name Priority Date/Time Associated Diagnosis Comments MRI LUMBAR SPINE WO CONTRAST Schedule Routine, Read Routine (OP Routine) 05/06/2020 8:43 PM CDT Lumbar back pain with radiculopathy affecting left lower extremity documented in this encounter Results * MRI Lumbar Spine WO Contrast (05/06/2020 8:43 PM CDT) Anatomical Region Laterality Modality Spine N/A Magnetic Resonan ce 05/06/2020 11:3 3 PM CDT Narrative 05/06/2020 11:40 PM CDT Patient Name: MAX DE LA GARZA ?Ordering Dr: Brijesh Lynch MD ?? D.O.B: 1970 ? Exam Date: 05/06/20 ?? 2042 ?? Age: 49 ?Sex: Female ? MR#: [id number] ?? Loc: ? RADIOLOGY REPORT ?? Order #[id number] ?? Magnetic Resonance Imaging ? MRI Lumbar ? Signed ?? EXAM DESCRIPTION: ?? MRI Lumbar ? REASON FOR STUDY: ?? LUMBAR BACK PAIN W/RADICULOPATHY AFFECTING LEFT LOWER ?? EXTREMITY ? TECHNIQUE: ?? Sagittal and Axial imaging includes T1, T2, STIR sequences. ? COMPARISON: ?? None available. ? FINDINGS: ? SEGMENTATION: ??No transitional anatomy. The lowest well-developed disc space ?? is labeled L5-S1. ? ALIGNMENT: ??Normal. ? VERTEBRAE: ??Vertebral body height well-maintained. ??Minimal scattered ?? degenerative endplate signal changes without significant discogenic edema. ? Bone marrow signal is otherwise within normal limits. ? DISC HEIGHT: ??Well-maintained. ? HARDWARE: ??None in the spine. ? CORD/CAUDA: ??Normal in size and signal intensity. Conus at the appropriate ?? level. ? LOWER THORACIC: ??Incompletely imaged. No stenosis seen. ? INDIVIDUAL DISC LEVELS: ? L1-2: ??Shallow disc bulge. ??No significant spinal canal or neuroforaminal ?? stenosis. ? L2-3: ??Shallow disc bulge. No significant spinal canal or neuroforaminal ?? stenosis. ? L3-4: ??Shallow disc bulge. No significant spinal canal or neuroforaminal ?? stenosis. ? L4-5: ??Shallow disc bulge. No significant spinal canal or neuroforaminal ?? stenosis. ? L5-S1: ??Shallow disc bulge. ??No significant spinal canal or neuroforaminal ?? stenosis. ? SACRUM: ??Visualized upper sacrum intact. ? VISUALIZED UPPER ABDOMEN: ??No significant abnormality. ? OTHER: ??No other significant findings. ? IMPRESSION: ?? Normal lumbar spine MR. ? THIS IS AN ELECTRONICALLY VERIFIED FINAL REPORT ?? 05/06/2020 11:40 PM - Electronically signed by Richardson Prieto ?? Richardson Prieto ? MF ?? D: ??05/06/2020 11:40 PM ?? T: ? Report ID: [id number] ?? Reading Location: ??[place] [address] ? REPORT ELECTRONICALLY SIGNED IN OTHER VENDOR SYSTEM ?? Resulting Agency Comment O Procedure Note Richardson Prieto, - 05/06/2020 Patient Name: HOLLIMAX Dr: Brijesh Lynch MD D.O.B: 1970 Exam Date: 05/06/202042 Age: 49 Sex: Female MR#: [id number] [id number] RAD[facility]Y REPORT Order #[id number] Magnetic Resonance Imaging MRI Lumbar Signed EXAM DESCRIPTION: MRI Lumbar REASON FOR STUDY: LUMBAR BACK PAIN W/RADICULOPATHY AFFECTING LEFT LOWER EXTREMITY TECHNIQUE: Sagittal and Axial imaging includes T1, T2, STIR sequences. COMPARISON: None available. FINDINGS: SEGMENTATION: No transitional anatomy. The lowest well-developed discspace is labeled L5-S1. ALIGNMENT: Normal. VERTEBRAE: Vertebral body height well-maintained. Minimal scattered degenerative endplate signal changes without significant discogenicedema. Bone marrow signal is otherwise within normal limits. DISC HEIGHT: Well-maintained. HARDWARE: None in the spine. CORD/CAUDA: Normal in size and signal intensity. Conus at theappropriate level. LOWER THORACIC: Incompletely imaged. No stenosis seen. INDIVIDUAL DISC LEVELS: L1-2: Shallow disc bulge. No significant spinal canal or neuroforaminal stenosis. L2-3: Shallow disc bulge. No significant spinal canal or neuroforaminal stenosis. L3-4: Shallow disc bulge. No significant spinal canal or neuroforaminal stenosis. L4-5: Shallow disc bulge. No significant spinal canal or neuroforaminal stenosis. L5-S1: Shallow disc bulge. No significant spinal canal orneuroforaminal stenosis. SACRUM: Visualized upper sacrum intact. VISUALIZED UPPER ABDOMEN: No significant abnormality. OTHER: No other significant findings. IMPRESSION: Normal lumbar spine MR. THIS IS AN ELECTRONICALLY VERIFIED FINAL REPORT 05/06/2020 11:40 PM - Electronically signed by Richardson BOSTON T: Report ID: [id number] Reading Location: [place] [address] REPORT ELECTRONICALLY SIGNED IN OTHER VENDOR SYSTEM Brijesh Lynch MD IM MRI PROCEDURES Final Result documented in this encounter Visit Diagnoses Diagnosis Lumbar back pain with radiculopathy affecting left lower extremity documented in this encounter
--- OUTSIDE RECORDS SUMMARY | 2024-09-03 19:40 | XMS_ITS | Encounter Summary ---
Author Organization [facility] Medical Group Address [address] [place] [address] Care Team Providers Care Knifer Up Name Role Phone Unavailable Primary Care Provider Unavailabl e Reason for Visit * Reason Comments Follow-up lumbar back pain Discuss Test Results Mri back Encounter Details Date Type Department Care Team (Latest Contact Info) Description 05/08/2020 9:00 AM CDT Office Visit [facility] Medicine [address] [place] [address] Brijesh Lynch MD [address] [place] [address] Lumbar back pain (Primary Dx); Bulge of lumbar disc without myelopathy; Asthma; Irritable bowel syndrome with diarrhea; Moderate episode of recurrent major depressive disorder (CMS/HCC); Lumbar back pain with radiculopathy affecting left [...] on file 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 Gender Identity Female 03/27/2020 5:01 PM CDT Sexual Orientation Lesbian 03/27/2020 5: 01 PM CDT documented as of this encounter Last Filed Vital Signs Vital Sign Reading Time Taken Comments Blood Pressure 120/80 05/08/2020 9:26 AM CDT Pulse 77 05/08/2020 9:26 AM CDT Temperature 36.6 ??C (97.8 ??F) 05/08/2020 9:26 AM CD T Respiratory Rate 16 05/08/2020 9:26 AM CDT Oxygen Saturation 98% 05/08/2020 9:26 AM CDT Inhaled Oxygen Concentration - - Weight 85.2 kg (187 lb 12.8 oz) 05/08/2020 9:26 AM CDT Height 182.9 cm (6') 05/08/2020 9:26 AM CDT Body Mass Index 25.47 05/08/2020 9:26 AM CDT documented in this encounter Ordered Prescriptions Prescription Sig Dispense Quantity Refills Last Filled Start Date End Date HYDROcodone-acetami nophen (NORCO) 5-325 mg per tabletIndications:P ain Take 1 tablet by mouth every 8 (eight) hours as needed for pain 90 tablet 05/22/2020 0 cyclobenzaprine (FLEXERIL) 10 mg tabletIndications:L umbar [...] mouth daily 30 tablet 5 05/08/2020 1 documented in this encounter Progress Notes * Ramonita Schmidt MA - 05/08/2020 9:00 AM CDT Images from the original note were not included. Subjective/Objective Patient ID: Chrissy Kilgore is a 49 y.o. female. Visit Date: 05/08/2020 Chief Complaint Follow-up (lumbar back pain ) and Discuss Test Results (Mri back ) HPI Returns to the office for repeat evaluation. States that she continues to have the lumbar back painand reviewed the mri. States that the meds ar working. The ibs is stable and the asthma is stblae. 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 lexapro 10 mg per day Brijesh Lynch MD documented in this encounter Plan of Treatment Not on file documented as of this encounter Visit Diagnoses Diagnosis Lumbar back pain- Primary Lumbago Bulge of lumbar disc without myelopathy Asthma Unspecified asthma Irritable bowel syndrome with diarrhea Irritable bowel syndrome Moderate episode of recurrent major depressive disorder (HCC) Lumbar back pain with radiculopathy affecting left lower extremity documented in this encounter Discontinued Medications Medication Sig Discontinue Reason Start Date End Da te cyclobenzaprine (FLEXERIL) 10 mg tabletIndications:Lumbar back pain with radiculopathy affecting left lower extremity Take 1 tablet (10 mg total) by mouth 3 (three) times a day as needed for muscle spasms Reorder 04/24/2020 05/08/2020 HYDROcodone-acetaminophen (NORCO) 5-325 mg per tabletIndications:Pain Take 1 tablet by mouth every 8 (eight) hours as needed for pain Reorder 04/24/2020 05/08/2020 documented as of this encounter
--- OUTSIDE RECORDS SUMMARY | 2024-09-03 19:40 | XMS_ITS | Encounter Summary ---
Author Organization [facility] Medical Group Address [address] [place] [address] Care Team Providers Care Family Physician Name Role Phone Unavailable Primary Care Provider Unavailabl e Encounter Details Date Type Department Care Team (Late st Contact Info) Description 07/05/2016 Orders Only [facility] [place] Health Information Management [address] [place] [address] Brijesh Lynch MD [address] [place] [address] [address] [place] [address] Social History Tobacco Use Types Packs/Day Years Used Date Smoking Tobacco: Never Assessed AUDIT-C Answer Date Recorded Q1: How often do you have a drink containing alc ohol? 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
--- OUTSIDE RECORDS SUMMARY | 2024-09-03 19:40 | XMS_ITS | Encounter Summary ---
Author Organization [facility] Healthcare Address [address] [place] [address] Care Team Providers Care Research/Program Director Name Role Phone Unavailable Primary Care Provider Unavailabl e Encounter Details Date Type Department Care Team (Late st Contact Info) Description 11/15/2019 8:51 PM CDT - 11/15/2019 11:07 PM CDT Hospital Encounter [address] [phone] Unknown, Eze Toussaint II, MD [address] [place] [phone] Discharge Disposition: Discharge to home or self care Social History Tobacco Use Types Packs/Day Years Used Date Smoking Tobacco: Never Assessed Comments Unknown Sex and Gender Information Value Date Recorded Sex Assigned at Not on file 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 Gender Identity Female 03/27/2020 5:01 PM CDT Sexual Orientation Lesbian 03/27/2020 5: 01 PM CDT documented as of this encounter Last Filed Vital Signs Vital Sign Reading Time Taken Comments Blood Pressure 119/72 11/15/2019 8:55 PM CDT Pulse 81 11/15/2019 8:55 PM CDT Temperature 37 ??C (98.6 ??F) 11/15/2019 8:55 PM CDT Respiratory Rate - - Oxygen Saturation 98% 11/15/2019 8:55 PM CDT Inhaled Oxygen Concentration - - Weight 82.6 kg (182 lb 1.6 oz) 11/15/2019 8:55 P M CDT Height 167.6 cm (5' 6 ) 11/15/2019 8:55 PM CDT Body Mass Index 29.39 11/15/2019 8:55 PM CDT documented in this encounter Medications at Time of Discharge albuterol (PROAIR RESPICLICK) 90 mcg/actuation inhaler 2 puffs every 4 (four) hours as needed 10/23/2019 05/18/2021 albuterol 2.5 mg /3 mL (0.083 %) nebulizer solution 0.083 % every 6 (six) hours as needed 10/23/2019 10/24/2020 documented as of this encounter Discharge Disposition Disposition Code Departure Means Destination Discharge to home or self care documented in this encounter Plan of Treatment Not on file documented as of this encounter Procedures Procedure Name Priority Date/Time Associated Diagnosis Comments SCAN - LABS 11/16/2019 12:00 AM CDT CBC WITH AUTO DIFFERENTIAL Routine 11/15/2019 9:38 PM CDT COMPREHENSIVE METABOLIC PANEL Routine 11/15/2019 9:37 PM CDT INFLUENZA A/B PCR Routine 11/15/2019 9:3 2 PM CDT XR CHEST 1 VIEW 11/15/2019 12:00 AM CDT documented in this encounter Results * SCAN - LABS (11/16/2019 12:00 AM CDT) Narrative 11/16/2019 12:00 AM CDT Ordered by an unspecified provider. us Historical Provider Final Res ult * CBC with auto differential (11/15/2019 9:38 PM CDT) WBC 4.9 3.8 - 9.9 X10 3/ul [facility] RBC 4.15 3.90 - 5.20 x10 6/ul [facility] Hemoglobin 12.7 11.9 - 15.5 g/dL [facility] Hct 37.9 35.6 - 45.5 % [facility] MCV 91.3 81.3 - 96.4 fl [facility] MCH 30.6 27.1 - 33.3 pg [facility] MCHC 33.5 32.3 - 35.7 g/dl [facility] RDW 12.5 11.1 - 14.9 % [facility] Plt Count 260 150 - 400 x10 3/ul [facility] MPV 9.6 9.1 - 12.3 fl [facility] Neut % 62.3 % [facility] Immature Gran % 0.4 % [facility] Lymph % 24.2 % [facility] Motley % 7.4 % [facility] Eos % 5.3 % [facility] AUTO BASO % 0.4 % [facility] NEUTROPHIL ABS # 3.0 1.7 - 6.5 x10 3/ul [facility] Immature Gran # 0.0 0.0 - 0.1 x10 3/ul [facility] Absolute Lymphs (auto) 1.2 0.8 - 3.3 x10 3/ul [facility] Absolute Monos (auto) 0.4 0.2 - 0.8 x10 3/ul [facility] Absolute Eos (auto) 0.3 0.0 - 0.5 x10 3/ul [facility] BASOPHIL ABS # 0.0 0.0 - 0.1 x10 3/ul [facility] Nucleat RBC Rel Count 0.0 #/100WBC [facility] NRBC abs 0.00 0.00 - 0.01 x10 3/ul [facility] Absolute Neutrophils 3,000 200 - 8,000 /ul [facility] 11/15/2019 9:38 PM CDT 11/15/2019 9:42 PM CDT Narrative Resulting Agency Comment ER us Eze Rodriguez II, MD LAB BLOOD ORDERABLES Kristel l Result [facility] [address] [place], [place] [id number] [place] [address] * (ABNORMAL) Comprehensive metabolic panel (11/15/2019 9:37 PM CDT) [facility] Sodium 139 135 - 145 mmol/L [facility] Potassium 3.9 3.3 - 5.1 mmol/L [facility] Chloride 106 96 - 108 mmol/L [facility] Carbon Dioxide 24 22 - 32 mmol/L [facility] Anion Gap 9 7 - 16 [facility] Glucose 93 70 - 100 mg/dL [facility] BUN 13 8 - 25 mg/dL [facility] Creatinine 0.5 0.5 - 1.1 mg/dL [facility] Comment: NOTE: Estimated GFR (Cockroft-Gault) will NOT be calculated unless patient Height and Weight were entered. Also, Kidney Disease Stage (GFR) and Estimated GFR (Cockroft-Gault) will NOT be calculated if Creatinine result is <0.2. Kidney Disease Stage >90 mL/MIN [facility] Comment: NOTE; ??The GFR is an estimated [...] mL/min ? Kidney failure or on dialysis Est GFR (Cockcroft-G) 147 ml/MIN [facility] Comment: Estimated GFR(Cockroft-Gault)is used to calculate patient medication dosage Calcium 8.6 8.6 - 10.3 mg/dL [facility] Total Protein 6.3(L) 6.4 - 8.3 g/dL [facility] Albumin 3.9 3.5 - 5.0 g/dL [facility] Globulin 2.4 2.3 - 3.5 gm/dL [facility] Albumin/Globulin Ratio 1.6 1.1 - 1.8 [facility] Total Bilirubin <0.2 0.0 - 1.2 mg/dL [facility] AST 129(H) 0 - 32 U/L [facility] ALT 92(H) 0 - 33 U/L [facility] Alkaline Phosphatase 182(H) 35 - 104 U/L [facility] 11/15/2019 9:37 PM CDT 11/15/2019 9:42 PM CDT Narrative Resulting Agency Comment ER us Eze Rodriguez II, MD LAB BLOOD ORDERABLES Kristel l Result Performing Organization Address City/[facility]/ZIP Co de Phone Number [address] [phone] * Influenza A/B PCR (11/15/2019 9:32 PM CDT) Influenza A RNA NEGATIVE NEGATIVE [facility] Influenza B RNA NEGATIVE NEGATIVE [facility] 11/15/2019 9:32 PM CDT 11/15/2019 9:58 PM CDT Narrative [facility] - 11/15/2019 10:33 PM CDT Collected By axg Resulting Agency Comment ER us Eze Rodriguez II, MD LAB MICROBIOLOGY - GENERA L ORDERABLES Final Result [address] [phone] * XR Chest 1 View (11/15/2019 12:00 AM CDT) Anatomical Region Laterality Modality Body, Chest N/A Radiographic Dulce ging 11/15/2019 9:56 PM CDT Narrative 11/15/2019 9:56 PM CDT Patient Name: MAX DE LA GARZA ?Ordering Dr: Eze Rodriguez MD ?? D.O.B: 1970 ? Exam Date: 11/15/19 ?? 0000 ?? Age: 49 ?Sex: Female ? MR#: [id number] ?? Loc: ? RADIOLOGY REPORT ?? Order #[id number] ?? Radiology ? Chest 1 View Portable ? Signed ?? EXAM DESCRIPTION: ??Chest 1 View Portable ? REASON FOR STUDY: ??Cough and dyspnea for 2 weeks ? TECHNIQUE: ??Frontal radiographic view of the chest acquired. ? COMPARISON: ??Chest radiograph dated October 23, 2019 ? FINDINGS: ? LUNGS/PLEURA: No focal consolidation or pneumothorax. No pleural effusion. ? HEART/MEDIASTINUM: Heart size is normal. Normal mediastinal and hilar contours. ? HARDWARE/LINES/TUBES: None. ? BONES: No acute findings. ? OTHER: No other significant finding. ? IMPRESSION: ??No acute cardiopulmonary disease. ? THIS IS AN ELECTRONICALLY VERIFIED FINAL REPORT ?? 11/15/2019 9:56 PM - Electronically signed by Carroll Medina M.D. ?? Carroll Medina M.D. ? JA ?? D: ??11/15/2019 9:56 PM ?? T: ? Report ID: [id number] ?? Reading Location: ??[id number] ? REPORT ELECTRONICALLY SIGNED IN OTHER VENDOR SYSTEM ?? Resulting Agency Comment E Procedure Note Carroll Medina MD - 11/15/2019 Patient Name: MAX DE LA GARZA Dr: Eze Rodriguez MD D.O.B: 1970 Exam Date: 11/15/19 0000 Age: 49 Sex: Female MR#: [id number] Loc: RADIOLOGY REPORT Order #[id number] Radiology Chest 1 View Portable Signed EXAM DESCRIPTION: Chest 1 View Portable REASON FOR STUDY: Cough and dyspnea for 2 weeks TECHNIQUE: Frontal radiographic view of the chest acquired. COMPARISON: Chest radiograph dated October 23, 2019 FINDINGS: LUNGS/PLEURA: No focal consolidation or pneumothorax. No pleuraleffusion. HEART/MEDIASTINUM: Heart size is normal. Normal mediastinal and hilarcontours. HARDWARE/LINES/TUBES: None. BONES: No acute findings. OTHER: No other significant finding. IMPRESSION: No acute cardiopulmonary disease. THIS IS AN ELECTRONICALLY VERIFIED FINAL REPORT 11/15/2019 9:56 PM - Electronically signed by Carroll LORENZO T: Report ID: [id number] Reading Location: [id number] REPORT ELECTRONICALLY SIGNED IN OTHER VENDOR SYSTEM Eze Rodriguez II, MD IMG XR PROCEDURES Final R esult documented in this encounter Visit Diagnoses Not on filedocumented in this encounter
--- OUTSIDE RECORDS SUMMARY | 2024-09-03 19:40 | XMS_ITS | Encounter Summary ---
Author Organization 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 Gender Identity Female 03/27/2020 5:01 PM CDT Sexual Orientation Lesbian 03/27/2020 5: 01 PM CDT documented as of this encounter Medications at Time of Discharge albuterol (PROAIR RESPICLICK) 90 mcg/actuation inhaler 2 puffs every 4 (four) hours as needed 10/23/2019 1 albuterol 2.5 mg /3 mL (0.083 %) nebulizer solution 0.083 % every 6 (six) hours as needed 10/23/2019 1 dicyclomine (BENTYL) 10 mg capsuleIndication s:Irritable bowel syndrome with diarrhea Take 1 capsule (10 mg total) by mouth 2 (two) times a day 60 capsule 3 03/14/[address] (CYMBALTA) 30 mg capsuleIndication s:Idiopathic chronic gout of foot without tophus, unspecified laterality 30mg daily for 2 wks, then 60mg daily for 2 wks, Will eventually take 90mg daily 42 capsule 03/14/2020 0 documented as of this encounter Plan of Treatment Not on file documented as of this encounter Procedures Procedure Name Priority Date/Time Associated Diagnosis Comments TSH Routine 03/14/2020 10:02 AM CDT VITAMIN B12 Routine 03/14/2020 10:02 AM CDT documented in this encounter Results * TSH (03/14/2020 10:02 AM CDT) TSH 0.608 0.27 - 4.20 uIU/mL [facility] [place] [facility] 03/14/2020 10:0 2 AM CDT 03/14/2020 10:19 AM CDT Narrative Resulting Agency Comment CLI us Brijesh Lynch MD LAB BLOOD ORDERABLES Final Resu lt Performing Organization Address [facility]/ZIP Co de Phone Number [address] [phone] * Vitamin B12 (03/14/2020 10:02 AM CDT) Vitamin B12 261 230 - 1,250 pg/mL [facility] [place] [facility] 03/14/2020 10:0 2 AM CDT 03/14/2020 10:19 AM CDT Narrative Resulting Agency Comment CLI Brijesh Lynch MD LAB BLOOD ORDERABLES Final Resu lt [address] [place] [phone] documented in this encounter Visit Diagnoses Not on filedocumented in this encounter
--- OUTSIDE RECORDS SUMMARY | 2024-09-03 19:40 | XMS_ITS | Encounter Summary ---
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
--- OUTSIDE RECORDS SUMMARY | 2024-09-03 19:40 | XMS_ITS | Encounter Summary ---
Author Organization [facility] Healthcare Address [address] [place] [address] Care Team Providers Care Web Applications Administrator Name Role Phone Unavailable Primary Care Provider Unavailabl e Reason for Visit * Diagnostic Imaging (Routine) - Closed Specialty Diagnoses / Procedures Referred By Sharlene angulo Referred To Contact Procedures Breast MRI Outside Reference Transcribed Order, Provider Referral ID Status Reason Start Date Expiration Date Visits Re quested Visits Authorized [id number] Closed 02/01/2022 03/03/2023 1 1 Encounter Details Date Type Department Care Team ([facility] st Contact Info) Description 12/26/2015 Ancillary Procedure [facility] Outside Images [address] [place] [address] Social History Tobacco Use Types Packs/Day Years Used Date Smoking Tobacco: Never Assessed Comments Unknown Sex and Gender Information Value Date Recorded Sex Assigned at Not on file 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 us Provider Transcribed Order IMG MAMMO PROCEDURES Final Result [facility] documented in this encounter Visit Diagnoses Not on filedocumented in this encounter
--- OUTSIDE RECORDS SUMMARY | 2024-09-03 19:40 | XMS_ITS | Encounter Summary ---
Author Organization [facility] Healthcare Address [address] [place] [address] Care Team Providers Care Sales Training Representative Name Role Phone Unavailable Primary Care Provider Unavailabl e Encounter Details Date Type Department Care Team (Late st Contact Info) Description 01/02/2020 10:08 PM CDT - 01/02/2020 10:29 PM CDT Hospital Encounter [address] [address] Unknown, Nisha Howell PA [address] [place] [id number] Discharge Disposition: Discharge to home or self care Social History Tobacco Use Types Packs/Day Years Used Date Smoking Tobacco: Never Assessed Comments Unknown Sex and Gender Information Value Date Recorded Sex Assigned at Not on file 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 Gender Identity Female 03/27/2020 5:01 PM CDT Sexual Orientation Lesbian 03/27/2020 5: 01 PM CDT documented as of this encounter Last Filed Vital Signs Vital Sign Reading Time Taken Comments Blood Pressure 154/89 01/02/2020 10:17 PM CDT Pulse 67 01/02/2020 10:17 PM CDT Temperature 35.7 ??C (96.3 ??F) 01/02/2020 10:17 PM C DT Respiratory Rate - - Oxygen Saturation 100% 01/02/2020 10:17 PM CDT Inhaled Oxygen Concentration - - Weight 84.1 kg (185 lb 6.5 oz) 01/02/2020 10:17 PM CDT Height 167.6 cm (5' 6 ) 01/02/2020 10:17 PM CDT Body Mass Index 29.93 01/02/2020 10:17 PM CDT documented in this encounter Medications [...] Date/Time Associated Diagnosis Comments SCAN - LABS 01/03/2020 12:00 AM CDT documented in this encounter Results * SCAN - LABS (01/03/2020 12:00 AM CDT) Narrative 01/03/2020 12:00 AM CDT Ordered by an unspecified provider. us Historical Provider Final Res ult documented in this encounter Visit Diagnoses Not on filedocumented in this encounter
--- OUTSIDE RECORDS SUMMARY | 2024-09-03 19:40 | XMS_ITS | Encounter Summary ---
Author Organization [facility] Medical [facility] Address [address] [facility] [address] [place] [address] Care Team Providers Care Senior Media Planner Name Role Phone Unavailable Primary Care Provider Unavailabl e Reason for Visit * Reason Comments Follow-up lumbar back pain Encounter Details Date Type Department Care Team ([facility] st Contact Info) Description 05/22/2020 8:15 AM CDT Office Visit [facility] Family Medicine [address] [place] [address] Brijesh Lynch MD [address] [place] [address] Acute non-recurrent maxillary sinusitis (Primary Dx); Elevated LFTs; Lumbar back pain; Mild intermittent asthma, unspecified whether complicated Social History Tobacco Use Types Packs/Day Years [...] on file 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 Gender Identity Female 03/27/2020 5:01 PM CDT Sexual Orientation Lesbian 03/27/2020 5: 01 PM CDT documented as of this encounter Last Filed Vital Signs Vital Sign Reading Time Taken Comments Blood Pressure 120/80 05/22/2020 8:02 AM CDT Pulse 63 05/22/2020 8:02 AM CDT Temperature 36.5 ??C (97.7 ??F) 05/22/2020 8:02 AM CD T Respiratory Rate 16 05/22/2020 8:02 AM CDT Oxygen Saturation 98% 05/22/2020 8:02 AM CDT Inhaled Oxygen Concentration - - Weight 84.9 kg (187 lb 3.2 oz) 05/22/2020 8:02 A M CDT Height 182.9 cm (6') 05/22/2020 8:02 AM CDT Body Mass Index 25.39 05/22/2020 8:02 AM CDT documented in this encounter Ordered Prescriptions Prescription Sig Dispense Quantity Refills Last Filled Start Date End Date azithromycin (ZITHROMAX) 250 mg tabletIndications: Acute non-recurrent maxillary sinusitis Take 2 tabs (500 mg) by mouth today, than 1 daily for 4 days. 6 tablet 05/22/2020 0 methylPREDNISolone (MEDROL DOSEPACK) 4 mg DosepackIndication s:Acute non-recurrent maxillary sinusitis Take as directed on package. 21 tablet 05/22/2020 0 documented in this encounter Progress Notes * Brijesh Lynch MD - 05/22/2020 8:15 AM CDT Images from the original note were not included. Subjective/Objective Patient ID: Chrissy Kilgore is a 49 y.o. female. Visit Date: 05/22/2020 Chief Complaint Follow-up (lumbar back pain ) HPI Returns to the office for repeat evaluation. States that she has been having sinus drainage and congestion over the past week and it is getting worse. States that the back pain is better. Reviewed the labs and the mri. The asthma is under control nad the depression is under control. Review of Systems Constitutional: [...] is well-developed. HENT: Head: Normocephalic. Comments: Nasal congesiton and cobblestoning noted in the pop Right Ear: External ear normal. Left [...] Acute non-recurrent maxillary sinusitis (J01.00) (Primary) Comments: conditoin acute. kenalog 40 mg, medrol dose pack, z pack Orders: - triamcinolone (KENALOG) 40 mg/mL injection 40 mg; Inject 1 mL (40 mg total) into the muscle as instructed once Elevated LFTs (R79.89) Comments: condition chronic stable refer to dr. conrad Lumbar back pain (M54.5) Comments: condition chronic [place] continue care Mild intermittent asthma, unspecified whether complicated (J45.20) Comments: condition chronic stable continue care Brijesh Lynch MD documented in this encounter Plan of Treatment Not on file documented as of this encounter Visit Diagnoses Diagnosis Acute non-recurrent maxillary sinusitis- Primary Elevated LFTs Other abnormal blood chemistry Lumbar back pain Lumbago Mild intermittent asthma, unspecified whether complicated documented in this encounter Administered Medications Inactive Administered Medications - up to 3 most recent administrations Medication Order MAR Action Action Date Dose Rate Site triamcinolone (KENALOG) 40 mg/mL injection 40 mg 40 mg, intramuscular, Once, On Marisol 05/22/20 at 0915, For 1 doseIndications:Acute non-recurrent maxillary sinusitis Given 05/22/2020 8:40 AM CDT 40 mg Right Dorsogluteal/Buttoc k documented in this encounter Discontinued Medications Medication Sig Discontinue Reason Start Date End Da te traMADoL (ULTRAM) 50 mg tabletIndications:Lumbar back pain Take 1 tablet (50 mg total) by mouth every 8 (eight) hours as needed for pain Therapy completed 04/14/2020 05/22/2020 DULoxetine (CYMBALTA) 30 mg capsuleIndications:Idiop athic chronic gout of foot without tophus, unspecified laterality TAKE 1 CAPSULE BY MOUTH DAILY FOR 2 WEEKS, THEN 2 CAPSULES DAILY FOR 2 WEEKS Therapy completed 04/15/2020 05/22/2020 documented as of this encounter
--- OUTSIDE RECORDS SUMMARY | 2024-09-03 19:40 | XMS_ITS | Encounter Summary ---
Author Organization [facility] Healthcare Address [address] [place] [address] Care Team Providers Care Senior Embedded Software Engineer Name Role Phone Unavailable Primary Care Provider Unavailabl e Encounter Details Date Type Department Care Team (Late st Contact Info) Description 10/23/2019 2:59 PM CUTTING MACHINE OPERATOR - 10/23/2019 6:38 PM CUTTING MACHINE OPERATOR Hospital Encounter [address] [address] Unknown, NotinfHua Chavez MD [address] [place] [address] Discharge Disposition: Discharge to home or self care Social History Tobacco Use Types Packs/Day Years Used Date Smoking Tobacco: Never Assessed Comments Unknown Sex and Gender Information Value Date Recorded Sex Assigned at Not on file 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 CUTTING MACHINE OPERATOR Gender Identity Female 03/27/2020 5:01 PM CDT Sexual Orientation Lesbian 03/27/2020 5: 01 PM CDT documented as of this encounter Last Filed Vital Signs Vital Sign Reading Time Taken Comments Blood Pressure 130/80 10/23/2019 3:05 PM CUTTING MACHINE OPERATOR Pulse 87 10/23/2019 3:05 PM CUTTING MACHINE OPERATOR Temperature 36.7 ??C (98.1 ??F) 10/23/2019 3:05 PM CS T Respiratory Rate - - Oxygen Saturation 96% 10/23/2019 3:05 PM CUTTING MACHINE OPERATOR Inhaled Oxygen Concentration - - Weight - - Height - - Body Mass Index - - documented in this encounter Medications at Time [...] Procedure Name Priority Date/Time Associated Diagnosis Comments BLOOD GAS W/LYTES & LACTATE Routine 10/23/2019 5:04 PM CUTTING MACHINE OPERATOR INFLUENZA A/B PCR Routine 10/23/2019 4:0 5 PM CUTTING MACHINE OPERATOR CBC WITH AUTO DIFFERENTIAL Routine 10/23/2019 3:32 PM CUTTING MACHINE OPERATOR COMPREHENSIVE METABOLIC PANEL Routine 10/23/2019 3:32 PM CUTTING MACHINE OPERATOR XR CHEST 1 VIEW 10/23/2019 3:00 PM CUTTING MACHINE OPERATOR documented in this encounter Results * (ABNORMAL) BLOOD GAS w/LYTES & LACTATE (10/23/2019 5:04 PM CUTTING MACHINE OPERATOR) Specimen Type Arterial Blood [facility] Puncture Site RR LILLY [facility] Patient Temperature 37.0 C [facility] pH 7.49(H) 7.35 - 7.45 [facility] pCO2 32 32 - 48 mmHg [facility] pO2 123(H) 80 - 110 mmHg [facility] HCO3 24.4 22.0 - 26.0 mmol/L [facility] Total CO2 25.4 20.0 - 30.0 mmol/L [facility] Base Excess 1.6 -2.0 - 2.0 mmol/L [facility] Hb (BLOOD GAS) 13.3 12.1 - 15.1 g/dL [facility] O2 Saturation 97.0(H) 90.0 - 95.0 % [facility] ABG Carboxyhemoglobin 1.3 <3.0 % [facility] ABG Methemoglobin 1.2 <2.0 % [facility] ABG O2 Content 18.3 17.6 - 24.3 mg/dL [facility] Na+ (BLOOD GAS) 138 135 - 145 mmol/L [facility] K+ (BLOOD GAS) 2.9(L) 3.3 - 4.9 mmol/L [facility] Ionized Calcium 1.14 1.13 - 1.28 mmol/L [facility] GLUCOSE (BLOOD GAS) 171 65 - 199 mg/dL [facility] Lactate 3.4(HH) 0.5 - 2.0 mmol/L [facility] A-a O2 Difference -13.0 <=10.0 [facility] a/A Ratio 1.1 >=0.8 [facility] FiO2 21.0 % [facility] Crit Called By [id number] [facility] Crit Called Time 1705 [facility] [place] [id number] [facility] Crit BG Read Back Y [facility] 10/23/2019 5:04 PM CUTTING MACHINE OPERATOR 10/23/2019 5:07 PM CUTTING MACHINE OPERATOR Narrative [facility] - 10/23/2019 5:11 PM CUTTING MACHINE OPERATOR Conditions Room Air Source Arterial Resulting Agency Comment ER Isa CASTELLON LAB BLOOD ORDERABLES Fin al Result [facility] [address] [phone] * Influenza A/B PCR (10/23/2019 4:05 PM CUTTING MACHINE OPERATOR) Influenza A RNA NEGATIVE NEGATIVE [facility] Influenza B RNA NEGATIVE NEGATIVE [facility] 10/23/2019 4:05 PM CUTTING MACHINE OPERATOR 10/23/2019 4:14 PM CUTTING MACHINE OPERATOR Narrative [facility] - 10/23/2019 4:48 PM CUTTING MACHINE OPERATOR Collected By [facility] Agency Comment ER us Isa CASTELLON LAB MICROBIOLOGY - GENER AL ORDERABLES Final Result [facility] [address] [place] [address], [facility] [phone] * (ABNORMAL) Comprehensive metabolic panel (10/23/2019 3:32 PM CUTTING MACHINE OPERATOR) Sodium 140 135 - 145 mmol/L [facility] Potassium 3.1(L) 3.3 - 5.1 mmol/L [facility] Chloride 102 96 - 108 mmol/L [facility] Carbon Dioxide 24 22 - 32 mmol/L [facility] Anion Gap 14 7 - 16 [facility] Glucose 105(H) 70 - 100 mg/dL [facility] BUN 9 8 - 25 mg/dL [facility] Creatinine 0.6 0.5 - 1.1 mg/dL [facility] Comment: NOTE: Estimated GFR (Cockroft-Gault) will NOT be calculated unless patient Height and Weight were entered. Also, Kidney Disease Stage (GFR) and Estimated GFR (Cockroft-Gault) will NOT be calculated if Creatinine result is <0.2. Kidney Disease Stage >90 mL/MIN [facility] Comment: NOTE; ??The GFR is an estimated [...] ? Kidney failure or on dialysis Calcium 9.5 8.6 - 10.3 mg/dL [facility] Total Protein 6.9 6.4 - 8.3 g/dL [facility] Albumin 4.2 3.5 - 5.0 g/dL [facility] Globulin 2.7 2.3 - 3.5 gm/dL [facility] Albumin/Globulin Ratio 1.6 1.1 - 1.8 [facility] Total Bilirubin 0.4 0.0 - 1.2 mg/dL [facility] AST 165(H) 0 - 32 U/L [facility] ALT 230(H) 0 - 33 U/L [facility] Alkaline Phosphatase 172(H) 35 - 104 U/L [facility] 10/23/2019 3:32 PM CUTTING MACHINE OPERATOR 10/23/2019 3:36 PM CUTTING MACHINE OPERATOR Narrative Resulting Agency Comment ER us Isa CASTELLON LAB BLOOD ORDERABLES Fin al Result [facility] [address] [place] [address], [facility] [phone] * CBC with auto differential (10/23/2019 3:32 PM CUTTING MACHINE OPERATOR) WBC 5.9 3.8 - 9.9 X10 3/ul [facility] RBC 4.41 3.90 - 5.20 x10 6/ul [facility] Hemoglobin 13.4 11.9 - 15.5 g/dL [facility] Hct 39.6 35.6 - 45.5 % [facility] MCV 89.8 81.3 - 96.4 fl [facility] MCH 30.4 27.1 - 33.3 pg [facility] MCHC 33.8 32.3 - 35.7 g/dl [facility] RDW 12.7 11.1 - 14.9 % [facility] Plt Count 288 150 - 400 x10 3/ul [facility] MPV 9.1 9.1 - 12.3 fl [facility] Neut % 57.8 % [facility] Immature Gran % 1.9 % [facility] Lymph % 30.2 % [facility] Cobb % 6.1 % [facility] Eos % 3.7 % [facility] AUTO BASO % 0.3 % [facility] NEUTROPHIL ABS # 3.4 1.7 - 6.5 x10 3/ul [facility] Immature Gran # 0.1 0.0 - 0.1 x10 3/ul [facility] Absolute Lymphs (auto) 1.8 0.8 - 3.3 x10 3/ul [facility] Absolute Monos (auto) 0.4 0.2 - 0.8 x10 3/ul [facility] Absolute Eos (auto) 0.2 0.0 - 0.5 x10 3/ul [facility] BASOPHIL ABS # 0.0 0.0 - 0.1 x10 3/ul [facility] Nucleat RBC Rel Count 0.0 #/100WBC [facility] NRBC abs 0.00 0.00 - 0.01 x10 3/ul [facility] Absolute Neutrophils 3,400 200 - 8,000 /ul [facility] 10/23/2019 3:32 PM CUTTING MACHINE OPERATOR 10/23/2019 3:36 PM CUTTING MACHINE OPERATOR Narrative Resulting Agency Comment ER us Isa CASTELLON LAB BLOOD ORDERABLES Fin al Result [facility] [address] [place] [address], [facility] [phone] * XR Chest 1 View (10/23/2019 3:00 PM CUTTING MACHINE OPERATOR) Anatomical Region Laterality Modality Body, Chest N/A Radiographic Dulce ging 10/23/2019 4:25 PM CUTTING MACHINE OPERATOR Narrative 10/23/2019 4:26 PM CUTTING MACHINE OPERATOR Patient Name: MAX DE LA GARZA ?Ordering Dr: Isa Graff PA-C ?? D.O.B: 1970 ? Exam Date: 10/23/19 ?? 1500 ?? Age: 49 ?Sex: Female ? MR#: [id number] ?? Loc: ? RADIOLOGY REPORT ?? Order #[id number] ?? Radiology ? Chest 1 View Portable ? Signed ?? EXAM DESCRIPTION: ??Chest 1 View Portable ? REASON FOR STUDY: ??Wheezing and SOB since yesterday. ? TECHNIQUE: ??Frontal radiographic view of the chest acquired. ? COMPARISON: ??No prior. ? FINDINGS: ? LUNGS/PLEURA: No focal consolidation or pneumothorax. No pleural effusion. ? HEART/MEDIASTINUM: Heart size is normal. Normal mediastinal and hilar contours. ? HARDWARE/LINES/TUBES: None. ? BONES: No acute findings. ? OTHER: No other significant finding. ? IMPRESSION: ??No acute cardiopulmonary disease. ? THIS IS AN ELECTRONICALLY VERIFIED FINAL REPORT ?? 10/23/2019 4:26 PM - Electronically signed by Richardson Herron M.D. ?? Richardson Herron M.D. ? MJ ?? D: ??10/23/2019 4:26 PM ?? T: ? Report ID: [id number] ?? Reading Location: ??[id number] ? REPORT ELECTRONICALLY SIGNED IN OTHER VENDOR SYSTEM ?? Resulting Agency Comment E Procedure Note Richardson Herron MD - 10/23/2019 Patient Name: MAX DE LA GARZA Roel Dr: Isa Graff PA-C, D.O.B: 1970 Exam Date: 10/23/19 1500 Age: 49 Sex: Female MR#: [id number] Loc: RADIOLOGY REPORT Order #[id number] Radiology Chest 1 View Portable Signed EXAM DESCRIPTION: Chest 1 View Portable REASON FOR STUDY: Wheezing and SOB since yesterday. TECHNIQUE: Frontal radiographic view of the chest acquired. COMPARISON: No prior. FINDINGS: LUNGS/PLEURA: No focal consolidation or pneumothorax. No pleuraleffusion. HEART/MEDIASTINUM: Heart size is normal. Normal mediastinal and hilarcontours. HARDWARE/LINES/TUBES: None. BONES: No acute findings. OTHER: No other significant finding. IMPRESSION: No acute cardiopulmonary disease. THIS IS AN ELECTRONICALLY VERIFIED FINAL REPORT 10/23/2019 4:26 PM - Electronically signed by Richardson Herron M.D. MJ T: Report ID: [id number] Reading Location: [place] [address] REPORT ELECTRONICALLY SIGNED IN OTHER VENDOR SYSTEM Isa CASTELLON IMG XR PROCEDURES Final Result documented in this encounter Visit Diagnoses Not on filedocumented in this encounter
--- OUTSIDE RECORDS SUMMARY | 2024-09-03 19:40 | XMS_ITS | Encounter Summary ---
Author Organization [facility] Address [address] [place] [address] Care Team Providers Care Silviculture Teacher Name Role Phone Unavailable Primary Care Provider Unavailabl e Reason for Visit * Reason Comments Follow-up sinusitis Encounter Details Date Type Department Care Team ([facility] st Contact Info) Description 06/02/2020 9:30 AM CDT Office Visit [facility] Family Medicine [address] [place] [address] Brijesh Lynch MD [address] [place] [id number] Acute non-recurrent frontal sinusitis (Primary Dx); Mild intermittent asthma, unspecified whether complicated; Irritable bowel syndrome with constipation; Recurrent major depressive disorder, in full remission (CMS/HCC); Yeast vaginitis Social History Tobacco Use Types Packs/Day Years [...] on file 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 GASKET WINDER Gender Identity Female 03/27/2020 5:01 PM CDT Sexual Orientation Lesbian 03/27/2020 5: 01 PM CDT documented as of this encounter Last Filed Vital Signs Vital Sign Reading Time Taken Comments Blood Pressure 120/82 06/02/2020 10:48 AM CDT Pulse 70 06/02/2020 10:48 AM CDT Temperature 37.1 ??C (98.8 ??F) 06/02/2020 1 0:48 AM CDT Respiratory Rate 16 06/02/2020 10:4 8 AM CDT Oxygen Saturation 98% 06/02/2020 10: 48 AM CDT Inhaled Oxygen Concentration - - Weight 84.3 kg (185 lb 12.8 oz) 020 10:48 AM CDT Height 182.9 cm (6') 06/02/2020 10:48 AM CDT Body Mass Index 25.2 06/02/2020 10:48 AM CDT documented in this encounter Ordered Prescriptions Prescription Sig Dispense Quantity Refills Last Filled Start Date End Date fluconazole (DIFLUCAN) 150 mg tabletIndications: Yeast vaginitis Take 1 tablet (150 mg total) by mouth as directed Take one tab now. Repeat on day 3 2 tablet 06/02/2020 0 documented in this encounter Progress Notes * Brijesh Lynch MD - 06/02/2020 9:30 AM CDT Images from the original note were not included. Subjective/Objective Patient ID: Chrissy Kilgore is a 49 y.o. female. Visit Date: 06/02/2020 Chief Complaint Follow-up (sinusitis ) HPI Returns to the office for repeat evaluation. States that she still is having the sinus drainage andcongestion but is alittle better. States that the lungs are good. The throat is sore and states that the congestion and pressure in the face continues. The depression is under control. The asthma andthe ibs is stable. Taking her meds as directed. Review of [...] HENT: Head: Normocephalic. Comments: Nasal congestion and cobblelsting noted in the pop Right Ear: External [...] all orders for this visit: Acute non-recurrent frontal sinusitis (J01.10) (Primary) Comments: condition acuate. kenalog 80 mg Orders: - triamcinolone (KENALOG) 40 mg/mL injection 80 mg; Inject 2 mL (80 mg total) into the muscle as instructed once Mild intermittent asthma, unspecified whether complicated (J45.20) Comments: condition chronic stbale continue care Irritable bowel syndrome with constipation (K58.1) Comments: [facility] Recurrent major depressive disorder, in full remission ([facility]) (F33.42) Comments: condition chronic stbale contineu care Yeast vaginitis (B37.3) Comments: conditin acute. diflucan for 5 days Brijesh Lynch MD documented in this encounter Plan of Treatment Not on file documented as of this encounter Visit Diagnoses Diagnosis Acute non-recurrent frontal sinusitis- Primary Mild intermittent asthma, unspecified whether complicated Irritable bowel syndrome with constipation Irritable bowel syndrome Recurrent major depressive disorder, in full remission ([facility]) (HCC) Yeast vaginitis documented in this encounter Discontinued Medications Medication Sig Discontinue Reason Start Date End Da te dicyclomine (BENTYL) 10 mg capsuleIndications:Irrit able bowel syndrome with diarrhea Take 1 capsule (10 mg total) by mouth 2 (two) times a day Therapy completed 03/14/2020 06/02/2020 diazePAM (VALIUM) 5 mg tablet Take 5 mg by mouth every 6 (six) hours as needed Therapy completed 04/23/2020 06/02/2020 documented as of this encounter Orders Medications Ordered That Sarabjit ht Not Have Been Administered Count Last Ordered Date First Ordered Date triamcinolone (KENALOG) 40 m g/mL injection 80 mg 1 06/02/2020 documented in this encounter
--- OUTSIDE RECORDS SUMMARY | 2024-09-03 19:59 | XMS_ITS | Clinical Summary ---
Author Organization [facility] Address [address] [place] [address] Care Team Providers Care Instrument Calibrator Name Role Phone Ramonita Crawford PAOLA-VINYL CUTTER Primary Care Provider Source Comments [facility],non-owned Affiliates and Associated Physician Practices is amultiple site organization consisting of ambulatory clinics and hospital sitesin [place], [place], [place] and [place]. This disclosure is being madepursuant to the Care Everywhere program and may not contain all information available regarding this patient. Last updated 18.[facility] Allergies Active Allergy Reactions Criticality Noted [...] AM CDT Pulse 63 08/02/2022 9:19 AM FOOT ROENTGENOLOGIST Temperature 35.9 ??C (96.6 ??F) 11/29/2023 9:27 AM CD T Respiratory Rate 19 10/05/2020 3:30 PM FOOT ROENTGENOLOGIST Oxygen Saturation 100% 08/02/2022 9:19 AM FOOT ROENTGENOLOGIST Inhaled Oxygen Concentration - - Weight 82.6 [...] COMPREHENSIVE METABOLIC PANEL STAT 10/05/2020 2:12 PM FOOT ROENTGENOLOGIST from Last 3 Months or Most Recently Relevant to Health Maintenance Results * (ABNORMAL) COMPREHENSIVE METABOLIC PANEL (10/05/2020 2:12 PM FOOT ROENTGENOLOGIST) Glucose 135(H) 70 - 105 mg/dL 10/05/2020 2:36 PM FOOT ROENTGENOLOGIST [facility] Sodium 142 136 - 145 mmol/L 10/05/2020 2:36 PM FOOT ROENTGENOLOGIST [facility] Potassium 3.3(L) 3.5 - 5.1 mmol/L 10/05/2020 2:36 PM FOOT ROENTGENOLOGIST [facility] Chloride 106 98 - 107 mmol/L 10/05/2020 2:36 PM FOOT ROENTGENOLOGIST [facility] CO2 23 23 - 31 mmol/L 10/05/2020 2:36 PM [facility] Calcium 9.7 8.4 - 10.4 mg/dL 10/05/2020 2:36 PM [facility] Anion Gap 13 8 - 18 mmol/L 10/05/2020 2:36 PM [facility] Comment:Attention clinician: ??Reference Range change. BUN 10 9.8 - 20.1 mg/dL 10/05/2020 2:36 PM [facility] Creatinine 0.74 0.57 - 1.11 mg/dL 10/05/2020 2:36 PM [facility] Alkaline Phosphatase 181(H) 40 - 150 U/L 10/05/2020 2:36 PM [facility] Comment:Attention clinician: ??Reference Range change. ALT 90(H) 0 - 61 U/L 10/05/2020 2:36 PM FOOT ROENTGENOLOGIST [facility] AST 36(H) 5 - 34 U/L 10/05/2020 2:36 PM [facility] Protein Total 7.4 6.4 - 8.3 gm/dL 10/05/2020 2:36 PM [facility] Albumin 4.1 3.5 - 5.2 gm/dL 10/05/2020 2:36 PM [facility] Bilirubin Total 0.4 0.2 - 1.2 mg/dL 10/05/2020 2:36 PM [facility] Comment:Attention clinician: ??Reference Range change. eGFR by MDRD >60 >60 mL/min/1.7 3m2 10/05/2020 2:36 PM [facility] eGFR by MDRD >60 >60 mL/min/1.7 3m2 10/05/2020 2:36 PM [facility] Blood BLOOD SPECIMEN / Unknown Venipuncture / Unknown 10/05/2020 2:12 PM FOOT ROENTGENOLOGIST 10/05/2020 2:17 PM FOOT ROENTGENOLOGIST Santi Kemp PA-C LAB - CHEMISTRY AILYN Edouard Organization Address City/State/ZIP Co de Phone Number [facility] [address] [phone] from Last 3 Months or Most Recently Relevant to Health Maintenance Care Teams Instrument Calibrator Relationship Specialty Start Date End Date Ramonita Crawford, PATHOLOGY TECHNICIAN-VINYL CUTTER [address] [phone] PCP - General Nurse Practitioner 11/29/23
--- OUTSIDE RECORDS SUMMARY | 2024-09-03 19:59 | XMS_ITS | Continuity of Care Document ---
Author Organization [facility] Address [address] [place] [address] Phone Care Team Providers Care Firefighter Type One Name Role Phone [facility] Unavailable Unavailable Procedures Procedure Date Cataract Surgery Anesthesia; Lens Advance Directives Directive Yes / No Effective Date File Name No Information Encounters Encounter Description Practice Location Reason(s) For Visit Diagnoses Date Provider Providers Copied on Encounter [facility], [address] [place] [address], [address], tel:[phone] [facility] No Information [facility]. [address], [place], [place], [id number], . tel:[phone] Referring Provider: Veena Elise, [address] [place], [address]. tel:[phone] Family History Family Member Type Diagnosis Age At Onset No Information Payers Payer name Insurance type Covered alliance party ID Dennys albarado(s) [id number] Social History Type Description Quantity Date Captured [...]
--- OUTSIDE RECORDS SUMMARY | 2024-09-03 19:59 | XMS_ITS | Encounter Summary ---
Author Organization [facility] Address [address] [place] [address] Care Team Providers Care Water Meter Reader Name Role Phone Unavailable Primary Care Provider Unavailabl e Reason for Visit * Reason Comments Establish Care Encounter Details Date Type Department Care Team (Late st Contact Info) Description 08/02/2022 10:00 AM ICT SUPPORT TECHNICIANS Office Visit [facility] [address] [place] [address] Harleen Celaya, MISSILE INSPECTOR-HUMAN RESOURCE ASSISTANT [address] [phone] Mixed stress and urge urinary incontinence (Primary [...] Comments Blood Pressure 149/80 08/02/2022 9:19 AM ICT SUPPORT TECHNICIANS Pulse 63 08/02/2022 9:19 AM ICT SUPPORT TECHNICIANS Temperature - - Respiratory Rate - - Oxygen Saturation 100% 08/02/2022 9:19 AM ICT SUPPORT TECHNICIANS Inhaled Oxygen Concentration - - Weight 81.6 kg (180 lb) 08/02/2022 9:19 AM ICT SUPPORT TECHNICIANS Height 167.6 cm (5' 6 ) 08/02/2022 9:19 AM ICT SUPPORT TECHNICIANS Body Mass Index 29.05 08/02/2022 9:19 AM ICT SUPPORT TECHNICIANS documented in this encounter Patient Instructions * Patient Instructions* Harleen Celaya APRN-CNP - 08/02/2022 9:55 AM ICT SUPPORT TECHNICIANS -To schedule an appointment please call [phone]. -To reach the [facility] office please call [phone]. -For any nursing or surgery questions please call [phone]. -FAX: SUPPORT TECHNICIANS documented in this encounter Progress Notes * Harleen Celaya APRN-CNP - 08/02/2022 9:34 AM CST [facility] Division of Urologic Surgery SANDY Frausto Date of Visit: 08/02/2022 Patient Name: Chrissy Kilgore : 1970 Medical Record: [id number] Contact (home) Age: [age] year old Sex: female Referring Physician: Angeles Hernandez MD [address] [place] [address] Chief Complaint: Urinary incontinence History of Present [...] POCT NEG Ketones UA POCT NEG Specific [place] UA 1.010 Blood Urine POCT NEG pH [...] management options. SANDY Frausto 08/02/2022 9:34 AM SUPPORT TECHNICIANS documented in this encounter Plan of Treatment [...] POCT NEG Ketones UA POCT NEG Specific [place] UA 1.010 Blood Urine POCT NEG pH [...]
--- OUTSIDE RECORDS SUMMARY | 2024-09-03 19:59 | XMS_ITS | Encounter Summary ---
Author Organization [facility] Address [address] [place] [address] Care Team Providers Care Doping Supervisor Name Role Phone Ramonita Crawford Primary Care [...] on filedocumented in this encounter Care Teams Doping Supervisor Relationship Specialty Start Date End Date Ramonita Crawford APRN-CNP [address] [phone] PCP - General Nurse Practitioner 11/29/23 documented as of this encounter
--- OUTSIDE RECORDS SUMMARY | 2024-09-03 19:59 | XMS_ITS | Clinical Summary ---
Author Organization [address] Address [address] [place] [id number] Care Team Providers Care Commercial Fisherman Name Role Phone Angeles Hernandez MD Unavailable [phone] Ramonita Crawford NP Primary Care Provider [phone] Allergies Active Allergy Reactions Criticality Noted Date [...] 08/12/2021 Assessment & Plan (09/06/2022 9:29 AM MANAGER RESEARCH): Chronic stable and well Controlled Continue ativan [...] 05/26/2021 Assessment & Plan (09/06/2022 9:29 AM MANAGER RESEARCH): Chronic stable and at goal Continue with metorprolol Assessment & Plan (01/26/2022 4:28 PM CDT): Chronic condition stable well controlled continue hydralazine Assessment & Plan (11/18/2021 11:12 AM CDT): Chronic condition Stable and well control at goal with hydralazine Assessment & Plan (10/06/2021 4:50 PM MANAGER RESEARCH): Chronic condition well-controlled stable but off metoprolol due to sinus bradycardia. She is currently on Holter monitor being followed by Cardiology. Assessment & Plan (07/07/2021 10:28 AM MANAGER RESEARCH): Chronic condition improved control with metoprolol will [...] crestor Assessment & Plan (10/06/2021 4:52 PM MANAGER RESEARCH): Chronic condition at goal rosuvastatin has made significant reduction in LDL will continue with current regimen CK is normal. AST ALT no nd normal Assessment & Plan (07/07/2021 10:17 AM MANAGER RESEARCH): Chronic condition Start crestro 5mg Repeat lft [...] changes. Order lipid panel in 1 mo [facility] COVID-19 04/16/2021 Vitreous syneresis of both eyes 08/26/2020 Assessment & Plan (01/11/2023 8:42 AM CDT): + extensive vitreous opacities peripherally OU Assessment & Plan (08/26/2020 11:38 AM MANAGER RESEARCH): Significant floaters both eyes (OU), but tolerable for patient for now. Will plan for YAG cap OS first. I will see her again after the act to determine if her symptoms are improved and also to monitor the macular pucker. Visual disturbance 07/29/2020 Assessment & Plan (07/29/2020 4:18 PM MANAGER RESEARCH): +white light in vision left eye (OS) [...] 06/21/2023 Assessment & Plan (09/23/2023 10:46 AM MANAGER RESEARCH): 2 months s/p Right Extraction Cataract - Phacoemulsification And Lens Implant - Right Doing well off all drops. MRX today to 20/20. Early PCO Assessment & Plan (07/04/2023 10:14 AM MANAGER RESEARCH): POW1 Right Extraction Cataract - Phacoemulsification And [...] normal Assessment & Plan (09/15/2020 8:13 AM MANAGER RESEARCH): Not yet VS BAT 20/[address] Moscoso for her routine eye care - back to me when VS Assessment & Plan (08/26/2020 11:38 AM MANAGER RESEARCH): SHE WILL CONTINUE TO FOLLOW WITH DR. Yuen Assessment & Plan (07/29/2020 4:20 PM MANAGER RESEARCH): Mild; not yet VS -follow PCO (posterior capsular opacification), left 03/2020 Assessment & Plan (02/18/2023 8:31 AM CDT): Open PC Clear view Assessment & Plan (09/15/2020 8:14 AM MANAGER RESEARCH): PCO OS VS with glare Aware will not change ERM Plan for YAG OS today Follow 4 weeks, then to Dr. Moscoso thereafter Assessment & Plan (08/26/2020 11:38 AM MANAGER RESEARCH): Has mild PCO OS. Will send for YAG Cap to see if helps patient's constant blurriness . Patient understands that this will not improve floaters or ERM, which would require a retina surgery. Patient tolerates floaters at this time and no metamorphopsia from ERM. I think such a staged approach is reasonable and the patient agreed Assessment & Plan (07/29/2020 4:20 PM MANAGER RESEARCH): -sp cataract extraction (CE) 2 years ago [facility] [place] [facility] VS: consider yag cap after retina eval Epiretinal membrane (ERM) of both eyes 0 Assessment & Plan (09/23/2023 10:45 AM MANAGER RESEARCH): F/u with retina in 3 weeks. Assessment [...] point Assessment & Plan (09/15/2020 8:14 AM MANAGER RESEARCH): ERM OU Observing with Dr. Jay Assessment & Plan (08/26/2020 11:22 AM MANAGER RESEARCH): Patient denies metamorphopsia, good visual acuity. Defer intervention at this time for ERM. Assessment & Plan (07/29/2020 4:20 PM MANAGER RESEARCH): left eye (OS)>>OD +pt complains of very [...] syndrome GERD (gastroesophageal reflux disease) Brain concussion 3942002 Depression [id number] Migraines 08/22/2000 Peptic ulceration 0101? 1 Kidney [...] week 05/10/2023 How often do you attend [facility] or [facility] services? Never 05/10/2023 Do you belong to [...] place to sleep or slept in a detention (including now)? No 05/10/2023 Personal Safety Answer Date Recorded Have you ever been in or are you currently in a harmful physical or emotional relationship or is someone making you feel afraid or unsafe? 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 MANAGER RESEARCH Gender Identity Female 03/27/2020 5:01 PM CDT [...] this topic Medical Devices Implanted Type Area Experimental Physicist Device Identifier Shelf Expiration Date Model / Serial / Lot [employer] Acrysof Iq Natural Stableforce Acrysert 6mm 13mm 1 Piece Foldable Sn60wf.[id number] - [id number] - [id number] Implanted:Qty: 1 on 06/21/2023 by Mary Ann Webster MD at [facility] [place] Right: Eye [employer] [id number] 11/07/2027 [id number].18 5 / [id number] / Explanted Type Area Experimental Physicist Device Identifier Shelf Expiration Date Model / Serial / Lot Only [employer] Michelle Flexi-Stent 7fr 7cm Small Pigtail Flexible .035in Stent 6574 - [id number] Implanted:Qty: 1 on 05/09/2023 by Jordan Duff MD at [facility] Explanted:Qty: 1 on 05/11/2023 by Jordan Duff MD at [facility] N/A: Pancreas [employer] [id number] 12/21/2027 [id number] / / [id number] [employer] Shreya Wallflex 10mm X 60mm Fully Covered Biliary [id number] - [id number] Implanted:Qty: 1 on 05/09/2023 by Jordan Duff MD at [facility] Explanted:Qty: 1 on 05/11/2023 by Jordan Duff MD at [facility] N/A: Bile Duct [employer] Shreya 03/01/2025 [id number] / / [id number] Procedures Procedure Name Priority Date/Time Associated Diagnosis [...] Advance Directives For more information, please contact: [phone] * Full Code (Latest Code Status on File) Date Activated Date Inactivated Comments 05/09/2023 5:28 PM 05/11/2023 10:17 PM Care Teams Commercial Fisherman Relationship Specialty Start Date End Date Ramonita Crawford NP [address] [address] PCP - General Family Medicine 02/18/23 Angeles Hernandez MD [address] [address] Referring Physician Gynecology 07/21/21
--- OUTSIDE RECORDS SUMMARY | 2024-09-03 19:59 | XMS_ITS | Referral Summary ---
Author Organization [address] Address [address] [place] [address] Care Team Providers Care Home Health Rn Name Role Phone Angeles Hernandez MD Unavailable [phone] Ramonita Crawford NP Primary Care Provider [phone] Allergies Active Allergy Reactions Criticality Noted Date [...] 08/12/2021 Assessment & Plan (09/06/2022 9:29 AM SENIOR ACCOUNT MANAGER): Chronic stable and well Controlled Continue ativan [...] 05/26/2021 Assessment & Plan (09/06/2022 9:29 AM SENIOR ACCOUNT MANAGER): Chronic stable and at goal Continue with metorprolol Assessment & Plan (01/26/2022 4:28 PM CDT): Chronic condition stable well controlled continue hydralazine Assessment & Plan (11/18/2021 11:12 AM CDT): Chronic condition Stable and well control at goal with hydralazine Assessment & Plan (10/06/2021 4:50 PM SENIOR ACCOUNT MANAGER): Chronic condition well-controlled stable but off metoprolol due to sinus bradycardia. She is currently on Holter monitor being followed by Cardiology. Assessment & Plan (07/07/2021 10:28 AM SENIOR ACCOUNT MANAGER): Chronic condition improved control with metoprolol will [...] crestor Assessment & Plan (10/06/2021 4:52 PM SENIOR ACCOUNT MANAGER): Chronic condition at goal rosuvastatin has made significant reduction in LDL will continue with current regimen CK is normal. AST ALT no nd normal Assessment & Plan (07/07/2021 10:17 AM SENIOR ACCOUNT MANAGER): Chronic condition Start crestro 5mg Repeat lft [...] changes. Order lipid panel in 1 mo [facility] COVID-19 04/16/2021 Vitreous syneresis of both eyes 08/26/2020 Assessment & Plan (01/11/2023 8:42 AM CDT): + extensive vitreous opacities peripherally OU Assessment & Plan (08/26/2020 11:38 AM SENIOR ACCOUNT MANAGER): Significant floaters both eyes (OU), but tolerable for patient for now. Will plan for YAG cap OS first. I will see her again after the act to determine if her symptoms are improved and also to monitor the macular pucker. Visual disturbance 07/29/2020 Assessment & Plan (07/29/2020 4:18 PM SENIOR ACCOUNT MANAGER): +white light in vision left eye (OS) [...] 06/21/2023 Assessment & Plan (09/23/2023 10:46 AM SENIOR ACCOUNT MANAGER): 2 months s/p Right Extraction Cataract - Phacoemulsification And Lens Implant - Right Doing well off all drops. MRX today to 20/20. Early PCO Assessment & Plan (07/04/2023 10:14 AM SENIOR ACCOUNT MANAGER): POW1 Right Extraction Cataract - Phacoemulsification And [...] normal Assessment & Plan (09/15/2020 8:13 AM SENIOR ACCOUNT MANAGER): Not yet VS BAT 20/[address] Moscoso for her routine eye care - back to me when VS Assessment & Plan (08/26/2020 11:38 AM SENIOR ACCOUNT MANAGER): SHE WILL CONTINUE TO FOLLOW WITH DR. Yuen Assessment & Plan (07/29/2020 4:20 PM SENIOR ACCOUNT MANAGER): Mild; not yet VS -follow PCO (posterior capsular opacification), left 03/2020 Assessment & Plan (02/18/2023 8:31 AM CDT): Open PC Clear view Assessment & Plan (09/15/2020 8:14 AM SENIOR ACCOUNT MANAGER): PCO OS VS with glare Aware will not change ERM Plan for YAG OS today Follow 4 weeks, then to Dr. Moscoso thereafter Assessment & Plan (08/26/2020 11:38 AM SENIOR ACCOUNT MANAGER): Has mild PCO OS. Will send for YAG Cap to see if helps patient's constant blurriness . Patient understands that this will not improve floaters or ERM, which would require a retina surgery. Patient tolerates floaters at this time and no metamorphopsia from ERM. I think such a staged approach is reasonable and the patient agreed Assessment & Plan (07/29/2020 4:20 PM SENIOR ACCOUNT MANAGER): -sp cataract extraction (CE) 2 years ago in [place] [facility] VS: consider yag cap after retina eval Epiretinal membrane (ERM) of both eyes 0 Assessment & Plan (09/23/2023 10:45 AM SENIOR ACCOUNT MANAGER): F/u with retina in 3 weeks. Assessment [...] point Assessment & Plan (09/15/2020 8:14 AM SENIOR ACCOUNT MANAGER): ERM OU Observing with Dr. Jay Assessment & Plan (08/26/2020 11:22 AM SENIOR ACCOUNT MANAGER): Patient denies metamorphopsia, good visual acuity. Defer intervention at this time for ERM. Assessment & Plan (07/29/2020 4:20 PM SENIOR ACCOUNT MANAGER): left eye (OS)>>OD +pt complains of very [...] often do you attend chur ch or confucianism services? Never 05/10/2023 Do you belong to any clubs o r organizations such as adventism groups, unions, fraternal or athletic groups, or [...] place to sleep or slept in a penitentiary (including now)? No 05/10/2023 Personal Safety Answer Date Recorded Have you ever been in or are you currently in a harmful physical or emotional relationship or is someone making you feel afraid or unsafe? 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 SENIOR ACCOUNT MANAGER Gender Identity Female 03/27/2020 5:01 PM [...] on file Medical Devices Implanted Type Area Commissions Specialist Device Identifier Shelf Expiration Date Model / Serial / Lot [employer] Acrysof Iq Natural Stableforce Acrysert 6mm 13mm 1 Piece Foldable Sn60wf.185 - [id number] - [id number] Implanted:Qty: 1 on 06/21/2023 by Mary Ann Webster MD at [facility] [place] Right: Eye [employer] [id number] 11/07/2027 SN60WF.18 5 / [id number] / Explanted Type Area Commissions Specialist Device Identifier Shelf Expiration Date Model / Serial / Lot [employer] Michelle Flexi-Stent 7fr 7cm Small Pigtail Flexible .035in Stent 6574 - [id number] Implanted:Qty: 1 on 05/09/2023 by Jordan Duff MD at [facility] Explanted:Qty: 1 on 05/11/2023 by Jordan Duff MD at [facility] N/A: Pancreas [employer] [id number] 12/21/2027 [id number] / / [id number] [employer] Shreya Wallflex 10mm X 60mm Fully Covered Biliary [id number] - [id number] Implanted:Qty: 1 on 05/09/2023 by Jordan Duff MD at [facility] Explanted:Qty: 1 on 05/11/2023 by Jordan Duff MD at [facility] N/A: Bile Duct [employer] Shreya 03/01/2025 [id number] / / [id number] Procedures Procedure Name Priority Date/Time Associated Diagnosis [...] Most Recently Relevant to Health Maintenance [place] [address] [place] [address] Advance Directives For more information, please contact: [phone] * Full Code (Latest Code Status on File) Date Activated Date Inactivated Comments 05/09/2023 5:28 PM 05/11/2023 10:17 PM Care Teams Home Health Rn Relationship Specialty Start Date End Date Ramonita Crawford NP [address] [address] PCP - General Family Medicine 02/18/23 Angeles Hernandez MD [address] [place] [address] Referring Physician Gynecology 07/21/21
--- OUTSIDE RECORDS SUMMARY | 2024-09-03 19:59 | XMS_ITS | Encounter Summary ---
Author Organization [facility] Address [address] [place] [address] Phone Care Team Providers Care Filter Press Tender Head Name Role Phone Angeles Hernandez MD Unavailable [phone] Ramonita Crawford NP Primary Care Provider [phone] Encounter Details Date Type Department Care Team (Late st Contact Info) Description 09/23/2023 10:15 AM SPAR FINISHER Office Visit [facility] Ophthalmology [address] [facility] [place] [address] Mary Ann Webster MD [address] [place] [address] Pseudophakia of right eye (Primary [...] often do you attend chur ch or gnosticism services? Never 05/10/2023 Do you belong to any clubs o r organizations such as latter-day groups, unions, fraternal or athletic groups, or [...] place to sleep or slept in a usp (including now)? No 05/10/2023 Personal Safety Answer Date Recorded Have you ever been in or are you currently in a harmful physical or emotional relationship or is someone making you feel afraid or unsafe? 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 SPAR FINISHER Gender Identity Female 03/27/2020 5:01 PM [...] agree with the findings/plan of the Resident/Fellow FINISHER documented in this encounter Miscellaneous Notes * Assessment & Plan Note - Ryan Devine MD PhD - 09/23/2023 10:45 AM CSTAssociated Problem(s): Epiretinal membrane (ERM) of both eyes F/u with retina in 3 weeks. FINISHER * Assessment & Plan Note - Ryan Devine MD PhD - 09/23/2023 10:44 AM CSTAssociated Problem(s): Pseudophakia of right eye 2 months s/p Right Extraction Cataract - Phacoemulsification And Lens Implant - Right Doing well off all drops. MRX today to 20/20. Early PCO FINISHER FINISHER documented in this encounter Plan of Treatment [...] C/D Ratio 0.6 Wearing Rx Sphere Cylinder [place] Add Right eye -2.25 -2.25 095 +2.00 Left eye -1.25 -1.50 040 +2.00 Type: bifocal Manifest Refraction Sphere Cylinder [place] Dist [place] Add Right eye -0.75 +1.25 005 20/20 +2.50 Left eye -2.75 +1.75 130 20/25-1 +2.50 Final Rx Sphere Cylinder [place] Add Right eye -0.75 +1.25 005 +2.50 Left eye -2.75 +1.75 130 +2.50 After cataract surgery right eye: 06/21/2023 Care Teams Filter Press Tender Head Relationship Specialty Start Date End Date Ramonita Crawford NP [address] [address] [address] PCP - General Family Medicine 02/18/23 Angeles Hernandez MD [address] [address] Referring Physician Gynecology 07/21/21 documented as of this encounter
--- OUTSIDE RECORDS SUMMARY | 2024-09-03 19:59 | XMS_ITS | Encounter Summary ---
Author Organization [facility] Address [address] [place] [address] Care Team Providers Care Bending Frame Operator Name Role Phone Unavailable Primary Care Provider Unavailabl e Reason for Visit * Reason Comments Shortness of Breath pt presents to ED c/ o difficulty breathing. pt continuously coughing upon arrival. hx of asthma. pt has not used her inhalers. 100% RA upon arrival. +expiratory wheezing. Encounter Details Date Type Department Care Team (Late st Contact Info) Description 10/05/2020 11:38 AM DIPPING MACHINE OPERATOR - 10/05/2020 3:51 PM DIPPING MACHINE OPERATOR Emergency ER at [address] [address] SOB (shortness of breath); Chest [...] Comments Blood Pressure 143/74 10/05/2020 3:30 PM DIPPING MACHINE OPERATOR Pulse 93 10/05/2020 3:30 PM DIPPING MACHINE OPERATOR Temperature 36.1 ??C (97 ??F) 10/05/2020 12:10 PM DIPPING MACHINE OPERATOR Respiratory Rate 19 10/05/2020 3:30 PM DIPPING MACHINE OPERATOR Oxygen Saturation 99% 10/05/2020 3:30 PM DIPPING MACHINE OPERATOR Inhaled Oxygen Concentration - - Weight 86.2 kg (190 lb) 10/05/2020 11:35 AM DIPPING MACHINE OPERATOR Height 167.6 cm (5' 6 ) 10/05/2020 11:35 AM DIPPING MACHINE OPERATOR Body Mass Index 30.67 10/05/2020 11:35 AM DIPPING MACHINE OPERATOR documented in this encounter Discharge Instructions * Attachments The following attachments cannot be sent through Care Everywhere. * Asthma (General Information) (Micronesian) documented in this encounter Medications at Time [...] safe ride and place to go to. ING MACHINE OPERATOR * Adryan Bacon RN - 10/05/2020 3:10 PM CST Pt ambulated to bathroom with steady gait. Pt reports decreased SOB and feels okay when ambulating. ING MACHINE OPERATOR * Santi Kemp PA-C - 10/05/2020 1:19 [...] her inhaler as she was visiting from [place]. Sign-out from up another provider her reported [...] SOB 2. Chest tightness 3. Asthma exacerbation ING MACHINE OPERATOR * Corine Guillaume PA-C - 10/05/2020 11:45 AM CST Chrissy Kilgore [id number] [facility] EMER[facility]ENCY [facility]PARTMENT History Chief Complaint Patient presents with ??? Shortness of Breath pt presents to ED c/o difficulty breathing. pt continuously coughing upon arrival. hx of asthma. pthas not used her inhalers. 100% RA upon arrival. +expiratory wheezing. Patient presents to the ED with coughing and shortness of breath that started this morning. Patientstates she is visiting from [place] and forgot her albuterol. She has a [...] file Gets together: Not on file Attends lutheran service: Not on file Active member of [...] mL ??? 0.9% NaCl injection 1-10 mL ING MACHINE OPERATOR documented in this encounter Plan of Treatment Scheduled Orders Name Type Priority Associated Diagnoses Order Schedule START ED RT BRONCHODILATOR PROTOCOL Respiratory Care STAT ONCE for 1 Occurrences starting 10/05/2020 until 10/05/2020 documented as of this encounter Procedures Procedure Name Priority Date/Time Associated Diagnosis Comments CBC W AUTO DIFFERENTIAL STAT 10/05/2020 2:13 PM DIPPING MACHINE OPERATOR TROPONIN I STAT 10/05/2020 2:12 PM DIPPING MACHINE OPERATOR D-DIMER STAT 10/05/2020 2:12 PM DIPPING MACHINE OPERATOR COMPREHENSIVE METABOLIC PANEL STAT 10/05/2020 2:12 PM DIPPING MACHINE OPERATOR EKG 12-LEAD STAT 10/05/2020 2:05 PM DIPPING MACHINE OPERATOR Chest pressure XR CHEST 1VW PORTABLE STAT 10/05/2020 1:24 PM DIPPING MACHINE OPERATOR SOB (shortness of breath) documented in this encounter Results * (ABNORMAL) CBC W AUTO DIFFERENTIAL (10/05/2020 2:13 PM DIPPING MACHINE OPERATOR) WBC 9.1 4.4 - 10.7 x10E9/L 10/05/2020 2:20 PM DIPPING MACHINE OPERATOR [facility] WBC Corrected 10/05/2020 2:20 PM DIPPING MACHINE OPERATOR [facility] RBC 4.47 3.80 - 5.20 x10E12/L 10/05/2020 2:20 PM DIPPING MACHINE OPERATOR [facility] Hemoglobin 13.6 12.0 - 15.6 gm/dL 10/05/2020 2:20 PM DIPPING MACHINE OPERATOR [facility] Hematocrit 41.2 35.9 - 45.5 % 10/05/2020 2:20 PM DIPPING MACHINE OPERATOR [facility] MCV 92.2 80.7 - 98.3 fl 10/05/2020 2:20 PM DIPPING MACHINE OPERATOR [facility] MCH 30.4 26.7 - 34.0 pg 10/05/2020 2:20 PM DIPPING MACHINE OPERATOR [facility] MCHC 33.0 30.8 - 35.9 gm/dL 10/05/2020 2:20 PM DIPPING MACHINE OPERATOR [facility] Platelet Count 278 153 - 416 x10E9/L 10/05/2020 2:20 PM DIPPING MACHINE OPERATOR [facility] RDW-CV 11.7(L) 12.1 - 14.9 % 10/05/2020 2:20 PM [facility] MPV 8.9(L) 9.4 - 12.9 fl 10/05/2020 2:20 PM [facility] Neutrophils % 84.6(H) 44.0 - 73.0 % 10/05/2020 2:20 PM [facility] Lymphocytes % 11.8(L) 20.0 - 43.0 % 10/05/2020 2:20 PM [facility] Monocytes % 1.4(L) 5.0 - 13.0 % 10/05/2020 2:20 PM [facility] Eosinophils % 0.8 0.0 - 6.0 % 10/05/2020 2:20 PM [facility] Basophils % 0.3 0.0 - 2.0 % 10/05/2020 2:20 PM [facility] Immature Granulocytes 1.1(H) 0 - 1 % 10/05/2020 2:20 PM [facility] Neutrophil Absolute 7.70(H) 2.01 - 7.14 x10E9/L 10/05/2020 2:20 PM [facility] Lymphocytes Absolute 1.07 1.07 - 3.94 x10E9/L 10/05/2020 2:20 PM [facility] Monocytes Absolute 0.13(L) 0.26 - 1.07 x10E9/L 10/05/2020 2:20 PM [facility] Eosinophils Absolute 0.07 0 - 0.47 x10E9/L 10/05/2020 2:20 PM [facility] Basophils Absolute 0.03 0 - 0.08 x10E9/L 10/05/2020 2:20 PM [facility] Immature Granulocytes Absolute 0.10(H) 0.00 - 0.06 x10E9/L 10/05/2020 2:20 PM [facility] nRBC Auto 0 /100 WBC 10/05/2020 2:20 PM [facility] Blood BLOOD SPECIMEN / Unknown Venipuncture / Unknown 10/05/2020 2:13 PM DIPPING MACHINE OPERATOR 10/05/2020 2:18 PM DIPPING MACHINE OPERATOR Santi Kemp PA-C LAB - HEMATOLOGY ORD ERABLES Performing Organization Address City/[facility]/ZIP Co de Phone Number [facility] [address] [place] [address] * D-DIMER (10/05/2020 2:12 PM DIPPING MACHINE OPERATOR) Pathologist [facility] D-Dimer 0.36 0.27 - 0.50 ug/mL FEU 10/05/2020 2:30 PM DIPPING MACHINE OPERATOR [facility] Blood BLOOD SPECIMEN / Unknown Venipuncture / Unknown 10/05/2020 2:12 PM DIPPING MACHINE OPERATOR 10/05/2020 2:18 PM DIPPING MACHINE OPERATOR Narrative [facility] - 10/05/2020 2:30 PM DIPPING MACHINE OPERATOR In the absence of clinical symptoms, a value less than or equal to 0.5 mcg/mL FEU significantly decreases the probability of PE/DVT (negative predictive value >95%). 1 mcg/ml FEU = 1 Fibrinogen Equivalent Unit (approximates 0.5 mcg/mL of D- dimer). Santi Kemp PA-C LAB - COAGULATION OR DERABLES Performing Organization Address [facility]/ZIP Co de Phone Number [facility] [address] [place] [address] * TROPONIN I (10/05/2020 2:12 PM DIPPING MACHINE OPERATOR) Pathologist [facility] Troponin I <0.010 <0.038 ng/mL 10/05/2020 2:41 PM DIPPING MACHINE OPERATOR [facility] Blood BLOOD SPECIMEN / Unknown Venipuncture / Unknown 10/05/2020 2:12 PM DIPPING MACHINE OPERATOR 10/05/2020 2:17 PM DIPPING MACHINE OPERATOR Santi Kemp PA-C LAB - CHEMISTRY ORDE RABLES Performing Organization Address City/[facility]/ZIP Co de Phone Number [facility] [address] [place] [address] * (ABNORMAL) COMPREHENSIVE METABOLIC PANEL (10/05/2020 2:12 PM DIPPING MACHINE OPERATOR) Pathologist [facility] Glucose 135(H) 70 - 105 mg/dL 10/05/2020 [...] >60 >60 mL/min/1.7 3m2 10/05/2020 2:36 PM [facility] eGFR by MDRD >60 >60 mL/min/1.7 3m2 10/05/2020 2:36 PM [facility] Blood BLOOD SPECIMEN / Unknown Venipuncture / Unknown 10/05/2020 2:12 PM DIPPING MACHINE OPERATOR 10/05/2020 2:17 PM DIPPING MACHINE OPERATOR Santi Kemp PA-C LAB - CHEMISTRY AILYN APPLE Performing Organization Address City/[facility]/ZIP Co de Phone Number [facility] [address] [address] * EKG 12-LEAD (10/05/2020 2:05 PM DIPPING MACHINE OPERATOR) Ventricular Rate 77 BPM [facility] Atrial Rate 77 BPM [facility] P-R Interval 142 ms [facility] QRS Duration ms 92 ms [facility] Q-T Interval ms 390 ms [facility] QTC Calculation (Bezet) 441 ms [facility] Calculated P [place] 44 degrees [facility] Calculated R [place] -2 degrees [facility] Calculated T [place] -5 degrees [facility] Interpretation EKG Normal sinus rhythm Cannot rule out Anterior infarct , age undetermined Abnormal ECG No previous ECGs available Confirmed by MD MYAH, ERICKA Menezes ([id number]) on 10/06/2020 8:08:41 AM [facility] 10/05/2020 2:05 PM DIPPING MACHINE OPERATOR 10/06/2020 8:08 AM DIPPING MACHINE OPERATOR Santi Kemp PA-C ECG ORDERABLES Performing Organization Address [facility] Co de Phone Number [facility] * XR CHEST 1VW PORTABLE (10/05/2020 1:24 PM DIPPING MACHINE OPERATOR) Anatomical Region Laterality Modality Chest Radiographic Dulce ging 10/05/2020 1:51 PM DIPPING MACHINE OPERATOR Impressions 10/05/2020 1:53 PM DIPPING MACHINE OPERATOR Negative *Reading Radiologist: Javier Alston on 10/05/2020 at 1:53 PM Narrative 10/05/2020 1:53 PM DIPPING MACHINE OPERATOR Portable Chest AP History: Difficulty breathing asthma [...] 1 hour $ Given 10/05/2020 11:52 AM DIPPING MACHINE OPERATOR 15 mg albuterol-ipratropium (DUO-NEB) nebulizer solution 3 mL 3 mL, Inhalation, NOW, 1 dose, On Tue10/05/20 at 1400 $ Given 10/05/2020 1:56 PM DIPPING MACHINE OPERATOR 3 mL aspirin chew tablet 324 mg 324 mg, Oral, NOW, 1 dose, On 10/05/20 at 1400 $ Given 10/05/2020 2:09 PM DIPPING MACHINE OPERATOR 324 mg ipratropium (ATROVENT) nebulizer solution 0.5 mg 0.5 mg, Inhalation, NOW, 1 dose, On 10/05/20 at 1145 $ Given 10/05/2020 11:52 AM DIPPING MACHINE OPERATOR 0.5 mg methylPREDNISolone sod succ (SOLU-Medrol) injection 125 mg 125 mg, Intravenous, NOW, 1 dose, On 10/05/20 at 1145 $ Given 10/05/2020 12:07 PM DIPPING MACHINE OPERATOR 125 mg documented in this encounter Active and Recently Administered Medications Times are shown in DIPPING MACHINE OPERATOR. Scheduled Medication Order 10/03/2020 10/04/2020 10/05/2020 0.9% [...]
--- OUTSIDE RECORDS SUMMARY | 2024-09-03 19:59 | XMS_ITS | Encounter Summary ---
Author Organization [facility] Address [address] [place] [address] Care Team Providers Care Nocturnist Physician Name Role Phone Jeff Guzman PA-C Primary Care Provider [phone] Reason for Visit * Reason Comments Refill Request Encounter Details Date Type Department Care Team (Late st Contact Info) Description 10/19/2023 Refill [facility] - Urology [address] [place] [address] [address] [place] [address] Harleen Celaya M, EQUIPMENT SERVICE ASSOCIATE-LEAF TIER [address] [place] [address] Refill Request Social History Tobacco Use Types [...] (male)(female) documented in this encounter Care Teams Nocturnist Physician Relationship Specialty Start Date End Date Jeff Guzman PA-C [address] [place] [id number] PCP - General 08/04/22 11/28/23 documented as of this encounter
--- OUTSIDE RECORDS SUMMARY | 2024-09-03 19:59 | XMS_ITS | Continuity of Care Document ---
Author Organization [facility], [facility]. Address [address] [place] [address] Phone Care Team Providers Care Jig Fitter Name Role Phone Veena Dixon MD Unavailable [...] Copied on Encounter [facility] [address], [address], [place] tel:[phone] [facility] No Information Zack Curiel. [address] [place] [address], [facility], . tel:[phone] [facility] [address], [address], [place] tel:[phone] [employer] [facility] 1 week PO PCIOL OS near (chief complaint) Presence of intraocular lens Zack Curiel. [address] [place] [address], [facility], [place]. tel:[phone] Referring Provider: Veena Elise, [address] [place] [address], [facility]. tel:[phone] [facility] [address], [facility], tel:[phone] [employer] [facility] 1 day PO PCIOL OS (chief complaint) Presence of intraocular lens Zack Curiel. [address] [place] [address], [facility], [place]. tel:[phone] Referring Provider: Veena Elise, [address] [place] [address], [facility]. tel:[phone] [facility] [address], [address], [place] tel:[phone] [employer] No Information Zack Curiel. [address] [place] [address], [address], [place]. tel:[phone] Referring Provider: Veena Elise [address] [place] [address], [address]. tel:[phone] [facility] [address], [address], [place] tel:[phone] [employer] [facility] No Information Zack Curiel. [address] [place] [address], [address], [place]. tel:[phone] [facility] [address], [place], [address], [place] tel:[phone] [facility] CAT EVAL OU (chief complaint) Age-related nuclear cataract of left eyeAge-relate d nuclear cataract of right eye Zack Curiel. [address] [place], [address], [place]. tel:[phone] Referring Provider: Sly Bah, [place], [address]. tel:[phone] Family History Family Member Type Diagnosis Age [...] Age-r elated nuclear cataract of left eye Impression/Plan Related to Age-r elated nuclear cataract of right eye Assessments Type Assessment Date No Information Patient Care Teams Name Effective Dates (start - stop) Status Members No Information
--- OUTSIDE RECORDS SUMMARY | 2024-09-03 19:59 | XMS_ITS | Patient Health Record ---
Author Organization [facility] Billing Info Address [address] [place], [place] [id number] Support Name Relationship Address Phone Jerilyn Villalobos Emergency Contact [address] [place] [address] Chrissy Kilgore Guarantor Unknown Reason For Referral No Information Medications Medication SIG (Take, Route, Fr equency, Duration) Notes Start Date End Date Status Zofran 4 MG 1 tab(s) Orally Thre e times per day as needed for nausea for 30 day(s) 06/01/2018 Active Dilaudid 2 MG 1 tablet as needed O rally every 4 hrs as needed for pain not controlled by percocet 06/01/2018 Active Zofran 4 MG 2 tablets Orally Twi ce a day for 30 day(s) Active Flomax 0.4 MG 1 capsule Orally Onc e a day for 30 day(s) 06/01/2018 Active Dilaudid 2 MG 1 tablet as needed O rally q 4 hrs pern pain not controlled by percocet 06/01/2018 Active Promethazine HCl 25 MG 1 tablet as neede d Orally every 12 hrs for 30 day(s) 06/01/2018 Activ e Percocet 5-325 MG 1 tablet as needed O rally every 6 hrs Active Percocet 5-325 MG 1 tablet as needed O rally every 6 hrs for 7 day(s) 06/01/2018 Active Voltaren 1 % as directed Transdermal Active Social History Tobacco Use: Social History Observation Description Date Details (start date - stop date) Never Smoker NA - NA Tobacco Status: Question Answer Notes Patient is a never smoker Plan Of Treatment No Information Insurance Providers Payer Name Payer Address Payer Phone Subscriber Number Group Number Insured Name Patient Relationship to Insured Coverage Start Date Coverage End Date [facility] [address] [place] [id number] [facility] Jame Chrissy Self - patient is the insured 8 8 Medical (General) History Medical History History ICD Code kidney stones Surgical History Surgery Date(Month/Year)
--- OUTSIDE RECORDS SUMMARY | 2024-09-03 19:59 | XMS_ITS | Patient Health Summary ---
Author Organization [facility] Address [address] [facility] [place] [address] Care Team Providers Care Airbrush Artist Photography Name Role Phone Ramonita Crawford PAOLA-POSTDOCTORAL SCHOLAR Primary Care Provider Note from [facility],non-owned Affiliates and Associated Physician Practices is amultiple site organization consisting of ambulatory clinics and hospital sitesin [place] and [place]. This disclosure is being madepursuant to the Care Everywhere program and may not contain all information available regarding this patient. Last updated 18.[facility] Allergies * Amlodipine Base(Urticaria) -Medium Criticality * [...] AM CDT Pulse 63 08/02/2022 9:19 AM SCIENTIFIC EDITOR Temperature 35.9 ??C (96.6 ??F) 11/29/2023 9:27 AM CD T Respiratory Rate 19 10/05/2020 3:30 PM SCIENTIFIC EDITOR Oxygen Saturation 100% 08/02/2022 9:19 AM SCIENTIFIC EDITOR Inhaled Oxygen Concentration - - Weight 82.6 kg (182 lb 3.2 oz) 11/29/2023 9:27 A M CDT Height 167.6 cm (5' 6 ) 11/29/2023 9:27 AM CDT Body Mass Index 29.41 11/29/2023 9:27 AM CDT Procedures * ID INSERT NON-INDWELLING BLADDER(Performed 11/29/2023) Performed for Frequency [...] for SOB (shortness of breath) Results * ID INSERT NON-INDWELLING BLADDER (11/29/2023 10:30 AM CDT) [...] [facility] Comment: ??CULTURE, URINE, SPECIAL ?Micro Number: ?[id number] ??Test Status: ? Final ??Specimen Source: ?? Urine, catheter ??Specimen Quality: ??Adequate ??Result: ?No Growth Test Performed at: [facility] ??[id number] SHAHAB HAYS MD Microbiology URINE SPECIMEN COLLECTION, CATHETERIZED / Unknown 11/29/2023 10:30 AM CDT 11/30/2023 2:16 AM CDT Judith Bradford MD LAB - MICROBIOLOGY O RDERABLES [facility] [address] [place] [address] * URINALYSIS AUTO - POINT OF CARE (AMB) [facility] (11/29/2023) Only the most recent of2 resultswithin the time period is included. Glucose UA neg OTHER LAB Bilirubin UA POCT neg OTHER LAB Ketones UA POCT neg OTHER LAB Specific [place] UA 1.010 OTHER LAB Blood Urine POCT neg OTHER LAB pH UA 6.5 OTHER LAB Protein UA neg OTHER LAB Urobilinogen UA 0.2 OTHER LAB Nitrite UA neg OTHER LAB WBC UA neg OTHER LAB Urine URINE / Unknown 11/29/2023 Judith Bradford MD LAB - POINT OF CARE ORDERABLES OTHER LAB * (ABNORMAL) CBC W AUTO DIFFERENTIAL (10/05/2020 2:13 PM SCIENTIFIC EDITOR) WBC 9.1 4.4 - 10.7 x10E9/L 10/05/2020 2:20 PM SCIENTIFIC EDITOR [facility] WBC Corrected 10/05/2020 2:20 PM SCIENTIFIC EDITOR [facility] RBC 4.47 3.80 - 5.20 x10E12/L 10/05/2020 2:20 PM SCIENTIFIC EDITOR [facility] Hemoglobin 13.6 12.0 - 15.6 gm/dL 10/05/2020 2:20 PM [facility] Hematocrit 41.2 35.9 - 45.5 % 10/05/2020 2:20 PM [facility] MCV 92.2 80.7 - 98.3 fl 10/05/2020 2:20 PM [facility] MCH 30.4 26.7 - 34.0 pg 10/05/2020 2:20 PM [facility] MCHC 33.0 30.8 - 35.9 gm/dL 10/05/2020 2:20 PM [facility] Platelet Count 278 153 - 416 x10E9/L 10/05/2020 2:20 PM [facility] RDW-CV 11.7(L) 12.1 - 14.9 % 10/05/2020 2:20 PM [facility] MPV 8.9(L) 9.4 - 12.9 fl 10/05/2020 2:20 PM [facility] Neutrophils % 84.6(H) 44.0 - 73.0 % 10/05/2020 2:20 PM [facility] Lymphocytes % 11.8(L) 20.0 - 43.0 % 10/05/2020 2:20 PM [facility] Monocytes % 1.4(L) 5.0 - 13.0 % 10/05/2020 2:20 PM [facility] Eosinophils % 0.8 0.0 - 6.0 % 10/05/2020 2:20 PM [facility] Basophils % 0.3 0.0 - 2.0 % 10/05/2020 2:20 PM [facility] Immature Granulocytes 1.1(H) 0 - 1 % 10/05/2020 2:20 PM [facility] Neutrophil Absolute 7.70(H) 2.01 - 7.14 x10E9/L 10/05/2020 2:20 PM [facility] Lymphocytes Absolute 1.07 1.07 - 3.94 x10E9/L 10/05/2020 2:20 PM [facility] Monocytes Absolute 0.13(L) 0.26 - 1.07 x10E9/L 10/05/2020 2:20 PM [facility] Eosinophils Absolute 0.07 0 - 0.47 x10E9/L 10/05/2020 2:20 PM [facility] Basophils Absolute 0.03 0 - 0.08 x10E9/L 10/05/2020 2:20 PM [facility] Immature Granulocytes Absolute 0.10(H) 0.00 - 0.06 x10E9/L 10/05/2020 2:20 PM [facility] nRBC Auto 0 /100 WBC 10/05/2020 2:20 PM [facility] Blood BLOOD SPECIMEN / Unknown Venipuncture / Unknown 10/05/2020 2:13 PM SCIENTIFIC EDITOR 10/05/2020 2:18 PM [facility] Santi Kemp PA-C LAB - HEMATOLOGY ORD ERABLES Performing Organization Address [facility] Co de Phone Number [facility] [address] [place] [phone] * TROPONIN I (10/05/2020 2:12 PM SCIENTIFIC EDITOR) Pathologist [facility] Troponin I <0.010 <0.038 ng/mL 10/05/2020 2:41 PM SCIENTIFIC EDITOR [facility] Blood BLOOD SPECIMEN / Unknown Venipuncture / Unknown 10/05/2020 2:12 PM SCIENTIFIC EDITOR 10/05/2020 2:17 PM SCIENTIFIC EDITOR Santi Kemp PA-C LAB - CHEMISTRY ORDE RABLES Performing Organization Address [facility] de Phone Number [facility] [address] [place] [address] * D-DIMER (10/05/2020 2:12 PM SCIENTIFIC EDITOR) [facility] D-Dimer 0.36 0.27 - 0.50 ug/mL FEU 10/05/2020 2:30 PM SCIENTIFIC EDITOR [facility] Blood BLOOD SPECIMEN / Unknown Venipuncture / Unknown 10/05/2020 2:12 PM SCIENTIFIC EDITOR 10/05/2020 2:18 PM SCIENTIFIC EDITOR Narrative [facility] - 10/05/2020 2:30 PM SCIENTIFIC EDITOR In the absence of clinical symptoms, a value less than or equal to 0.5 mcg/mL FEU significantly decreases the probability of PE/DVT (negative predictive value >95%). 1 mcg/ml FEU = 1 Fibrinogen Equivalent Unit (approximates 0.5 mcg/mL of D- dimer). Santi Kemp PA-C LAB - COAGULATION OR DERABLES Performing Organization Address [facility] Co de Phone Number [facility] [address] [place] [address] * (ABNORMAL) COMPREHENSIVE METABOLIC PANEL (10/05/2020 2:12 PM SCIENTIFIC EDITOR) Pathologist [facility] Glucose 135(H) 70 - 105 mg/dL 10/05/2020 2:36 PM SCIENTIFIC EDITOR [facility] Sodium 142 136 - 145 mmol/L 10/05/2020 2:36 PM [facility] Potassium 3.3(L) 3.5 - 5.1 mmol/L 10/05/2020 2:36 PM [facility] Chloride 106 98 - 107 mmol/L 10/05/2020 2:36 PM [facility] CO2 23 23 - 31 mmol/L 10/05/2020 2:36 PM [facility] Calcium 9.7 8.4 - 10.4 mg/dL 10/05/2020 2:36 PM [facility] Anion Gap 13 8 - 18 mmol/L 10/05/2020 2:36 PM [facility] Comment:Attention clinician: ??Reference Range change. BUN 10 9.8 - 20.1 mg/dL 10/05/2020 2:36 PM [facility] Creatinine 0.74 0.57 - 1.11 mg/dL 10/05/2020 2:36 PM [facility] Alkaline Phosphatase 181(H) 40 - 150 U/L 10/05/2020 2:36 PM [facility] Comment:Attention clinician: ??Reference Range change. ALT 90(H) 0 - 61 U/L 10/05/2020 2:36 PM [facility] AST 36(H) 5 - 34 U/L 10/05/2020 2:36 PM [facility] Protein Total 7.4 6.4 - 8.3 gm/dL 10/05/2020 2:36 PM [facility] Albumin 4.1 3.5 - 5.2 gm/dL 10/05/2020 2:36 PM [facility] Bilirubin Total 0.4 0.2 - 1.2 mg/dL 10/05/2020 2:36 PM [facility] Comment:Attention clinician: ??Reference Range change. eGFR by MDRD >60 >60 mL/min/1.7 3m2 10/05/2020 2:36 PM [facility] eGFR by MDRD >60 >60 mL/min/1.7 3m2 10/05/2020 2:36 PM [facility] Blood BLOOD SPECIMEN / Unknown Venipuncture / Unknown 10/05/2020 2:12 PM SCIENTIFIC EDITOR 10/05/2020 2:17 PM SCIENTIFIC EDITOR Santi Kemp PA-C LAB - CHEMISTRY AILYN APPLE Performing Organization Address City/[facility]/ZIP Co de Phone Number [facility] [address] [address] * EKG 12-LEAD (10/05/2020 2:05 PM SCIENTIFIC EDITOR) Ventricular Rate 77 BPM [facility] Atrial Rate 77 BPM [facility] P-R Interval 142 ms [facility] QRS Duration ms 92 ms [facility] Q-T Interval ms 390 ms [facility] QTC Calculation (Bezet) 441 ms [facility] Calculated P [place] 44 degrees [facility]USE Calculated R [place] -2 degrees [facility] MUSE Calculated T [place] -5 degrees [facility] Interpretation EKG Normal sinus rhythm Cannot rule out Anterior infarct , age undetermined Abnormal ECG No previous ECGs available Confirmed by MD MYAH, ERICKA Menezes ([id number]) on 10/06/2020 8:08:41 AM [facility] 10/05/2020 2:05 PM SCIENTIFIC EDITOR 10/06/2020 8:08 AM SCIENTIFIC EDITOR Santi Kemp PA-C ECG ORDERABLES Performing Organization Address [facility] Co de Phone Number [facility] * XR CHEST 1VW PORTABLE (10/05/2020 1:24 PM SCIENTIFIC EDITOR) Anatomical Region Laterality Modality Chest Radiographic Dulce ging 10/05/2020 1:51 PM SCIENTIFIC EDITOR Impressions 10/05/2020 1:53 PM SCIENTIFIC EDITOR Negative *Reading Radiologist: Javier Alston on 10/05/2020 at 1:53 PM Narrative 10/05/2020 1:53 PM SCIENTIFIC EDITOR Portable Chest AP History: Difficulty breathing asthma [...] PA-C DIAGNOSTIC IM AGING ORDERABLES Care Teams Airbrush Artist Photography Relationship Specialty Start Date End Date Ramonita Crawford, COIN MACHINE ASSEMBLER-POSTDOCTORAL SCHOLAR [address] [phone] PCP - General Nurse Practitioner 11/29/23
--- OUTSIDE RECORDS SUMMARY | 2024-09-03 19:59 | XMS_ITS | Encounter Summary ---
Author Organization [facility] Address [address] [place] [address] Care Team Providers Care Ultra Sound Technician Name Role Phone Jeff Guzman PA-C Primary Care Provider [phone] Encounter Details Date Type Department Care [...] Coronavirus/COVID-19? No / Unsure 08/04/2022 10:36 AM SENIOR RECRUITER documented as of this encounter Plan of Treatment Not on file documented as of this encounter Visit Diagnoses Not on filedocumented in this encounter Care Teams Ultra Sound Technician Relationship Specialty Start Date End Date Jeff Guzman PA-C [address] [place] [address] PCP - General 08/04/22 11/28/23 documented as of this encounter
--- OUTSIDE RECORDS SUMMARY | 2024-09-03 19:59 | XMS_ITS | Encounter Summary ---
Author Organization [facility] Address [address] [facility] [place] [address] Care Team Providers Care Nuclear Medicine Medical Director Name Role Phone Jeff Guzman PA-C Primary Care Provider [phone] Encounter Details Date Type Department Care [...] on filedocumented in this encounter Care Teams Nuclear Medicine Medical Director Relationship Specialty Start Date End Date Jeff Guzman PA-C [facility] [place] [address] PCP - General 08/04/22 11/28/23 documented as of this encounter
--- OUTSIDE RECORDS SUMMARY | 2024-09-03 19:59 | XMS_ITS | Referral Summary ---
Author Organization [facility] Address [address] [facility] [place] [address] Care Team Providers Care Bore Mill Operator Name Role Phone Ramonita Crawford PAOLA-WOOD SCIENCE PROFESSOR Primary Care Provider Source Comments [facility],non-owned Affiliates and Associated Physician Practices is amultiple site organization consisting of ambulatory clinics and hospital sitesin [place], [place], [place] and [place]. This disclosure is being madepursuant to the [...] AM CDT Pulse 63 08/02/2022 9:19 AM ACADEMIC COMPUTING DIRECTOR Temperature 35.9 ??C (96.6 ??F) 11/29/2023 9:27 AM CD T Respiratory Rate 19 10/05/2020 3:30 PM ACADEMIC COMPUTING DIRECTOR Oxygen Saturation 100% 08/02/2022 9:19 AM ACADEMIC COMPUTING DIRECTOR Inhaled Oxygen Concentration - - Weight 82.6 kg (182 lb 3.2 oz) 11/29/2023 9:27 A M CDT Height 167.6 cm (5' 6 ) 11/29/2023 9:27 AM CDT Body Mass Index 29.41 11/29/2023 9:27 AM CDT Plan of Treatment Not on file Procedures Procedure Name Priority Date/Time Associated Diagnosis Comments COMPREHENSIVE METABOLIC PANEL STAT 10/05/2020 2:12 PM ACADEMIC COMPUTING DIRECTOR from Last 3 Months or Most Recently Relevant to Health Maintenance Results * (ABNORMAL) COMPREHENSIVE METABOLIC PANEL (10/05/2020 2:12 PM ACADEMIC COMPUTING DIRECTOR) Glucose 135(H) 70 - 105 mg/dL 10/05/2020 2:[address] [facility] Sodium 142 136 - 145 mmol/L 10/05/2020 2:[address] [facility] Potassium 3.3(L) 3.5 - 5.1 mmol/L 10/05/2020 2:[address] [facility] Chloride 106 98 - 107 mmol/L 10/05/2020 2:[address] [facility] CO2 23 23 - 31 mmol/L 10/05/2020 2:[address] [facility] Calcium 9.7 8.4 - 10.4 mg/dL 10/05/2020 2:[address] [facility] Anion Gap 13 8 - 18 mmol/L 10/05/2020 2:[address] [facility] Comment:Attention clinician: ??Reference Range change. BUN 10 9.8 - 20.1 mg/dL 10/05/2020 2:[address] [facility] Creatinine 0.74 0.57 - 1.11 mg/dL 10/05/2020 2:[address] [facility] Alkaline Phosphatase 181(H) 40 - 150 U/L 10/05/2020 2:[address] [facility] Comment:Attention clinician: ??Reference Range change. ALT 90(H) 0 - 61 U/L 10/05/2020 2:[address] [facility] AST 36(H) 5 - 34 U/L 10/05/2020 2:[address] [facility] Protein Total 7.4 6.4 - 8.3 gm/dL 10/05/2020 2:[address] [facility] Albumin 4.1 3.5 - 5.2 gm/dL 10/05/2020 2:[address] [facility] Bilirubin Total 0.4 0.2 - 1.2 mg/dL 10/05/2020 2:[address] [facility] Comment:Attention clinician: ??Reference Range change. eGFR by MDRD >60 >60 mL/min/1.7 3m2 10/05/2020 2:36 PM ACADEMIC COMPUTING DIRECTOR [facility] eGFR by MDRD >60 >60 mL/min/1.7 3m2 10/05/2020 2:36 PM ACADEMIC COMPUTING DIRECTOR [facility] Blood BLOOD SPECIMEN / Unknown Venipuncture / Unknown 10/05/2020 2:12 PM ACADEMIC COMPUTING DIRECTOR 10/05/2020 2:17 PM ACADEMIC COMPUTING DIRECTOR Santi Kemp PA-C LAB - CHEMISTRY AILYN APPLE [facility] Organization Address City/State/ZIP Co de Phone Number [facility] [address] [place] [address] from Last 3 Months or Most Recently Relevant to Health Maintenance Care Teams Bore Mill Operator Relationship Specialty Start Date End Date Ramonita Crawford, WELL CONTROL INSTRUCTOR-WOOD SCIENCE PROFESSOR [address] [facility] [address] [phone] PCP - General Nurse Practitioner 11/29/23
--- OUTSIDE RECORDS SUMMARY | 2024-09-03 19:59 | XMS_ITS | Encounter Summary ---
Author Organization [facility] Address [address] [place] [address] Care Team Providers Care Diamond Mounter Name Role Phone Jeff Guzman PA-C Primary Care Provider [phone] Reason for Visit * Reason Onset Date Comments Reminder Call 11/25/2023 new pt call pt chantal ruiz to arrive 30 min prior to appt Encounter Details Date Type Department Care Team (Late st Contact Info) Description 11/25/2023 Telephone [facility] - FUSION OPERATOR [address] [facility] [address] [place] [address] Lilliana Mendenhall ADD APPROPRIATE ADDRESS [...] on filedocumented in this encounter Care Teams Diamond Mounter Relationship Specialty Start Date End Date Jeff Guzman PA-C [address] [place] [phone] PCP - General 08/04/22 11/28/23 documented as of this encounter
--- OUTSIDE RECORDS SUMMARY | 2024-09-03 19:59 | XMS_ITS | Encounter Summary ---
Author Organization [facility] Address [address] [place] [address] Care Team Providers Care Hinging Machine Operator Name Role Phone Ramonita Crawford PAOLA-SERGING MACHINE OPERATOR AUTOMATIC Primary Care Provider Reason for Referral * Evaluate & Treat (Routine) - Closed Specialty Diagnoses / Procedures Referred By Sharlene angulo Referred To Contact Physical Therapy Diagnoses Myofascial pain Judith Bradford Che, MD [address] [facility] [address] [place] [address] [facility] [place] [address] [place] [phone] Referral ID Status Reason Start Date Expiration Date V isits Requested Visits Authorized [id number] Closed Specialty Services Required 11/29/2023 11/28/2024 1 1 Scheduling Instructions Myofascial pain, levators and obturator internus. Please call [facility] Physical Therapy for an appointment for pelvic floor physical therapy [address] [place] [address] Please bring the paper referral form with you. See me in 3 months. Reason for Visit * Reason Comments Incontinence Encounter Details Date Type Department Care Team (Late st Contact Info) Description 11/29/2023 10:00 AM CDT Office Visit [facility] - SIGN WRITER HAND [address], [facility] [address] [place] [address] Judith Bradford Che, MD [address] [facility] [address] [place] [address] Frequency of micturition (Primary Dx); [...] tell me. Please call [facility] Physical Therapy for an appointment for pelvic floor physical therapy [address] [place], [place] [phone] Please bring the paper referral form with you. See me in 3 months. Call if any problems or concerns at . You can also ask the clipper machine operator to send me a message, and I or the nurses in Urogynecology Triage will respond when we can. If you contact via [employer], I do NOT get a notification, nor an email. I will only know you sent a message if I log into [facility], so that may be some hours after [...] email or even a notification on the [employer] familia if I send you a message. You will note that your clinical notes from your visits will be available for visits after 2019 (Sorry, earlier ones are not released by [facility] or [facility]). If you see any errors, please tell mewithin the week of your visit. If there are phrases used that you don't understand, feel free to ask. These notes are designed to convey information to other medical doctor so will have the expected medical terms [...] ? Referring and/or communicating with other health caregiver services home Time: 5 min ? Documenting clinical information in the electronic health record Time: 10 min ? Care coordination as needed Time: 0 min Total time spent for encounter: 71 minutes 30 min (37604) 45 minutes ([id number]) 60 minutes ([id number]) documented in this encounter Procedure Notes * Judith Bradford Che, MD - 11/29/2023 10:30 AM CDTAssociated Order(s): PROC BLADDER CATHETERIZATION Procedure(s): ME INSERT NON-INDWELLING BLADDER Pre-Procedure Diagnose(s): Frequency of [...] Order Schedule Ref to Physical Therapy - [facility] PT Outpatient Referral Routine Myofascial pain 1 Occurrences starting 11/29/2023 until 11/28/2024 documented as of this encounter Procedures Procedure Name Priority Date/Time Associated Diagnosis Comments ME INSERT NON-INDWELLING BLADDER Routine 11/29/2023 10:30 AM CDT Frequency of micturition Nocturia CULTURE URINE COMPREHENSIVE Routine 11/29/2023 10:30 AM CDT Frequency of micturition Nocturia URINALYSIS AUTO - POINT OF CARE (AMB) [facility] Routine 11/29/2023 Frequency of micturition Nocturia documented in this encounter Results * ME INSERT NON-INDWELLING BLADDER (11/29/2023 10:30 AM CDT) [...] [facility] Comment: ??CULTURE, URINE, SPECIAL ?Micro Number: ?[id number] ??Test Status: ? Final ??Specimen Source: ?? Urine, catheter ??Specimen Quality: ??Adequate ??Result: ?No Growth Test Performed at: [facility] ??[id number] SHAHAB HAYS MD Microbiology URINE SPECIMEN COLLECTION, CATHETERIZED / Unknown 11/29/2023 10:30 AM CDT 11/30/2023 2:16 AM CDT Judith Bradford MD LAB - MICROBIOLOGY O RDERABLES [facility] [address] [place] [id number] * URINALYSIS AUTO - POINT OF CARE (AMB) [facility] (11/29/2023) Glucose UA neg OTHER LAB Bilirubin UA POCT neg OTHER LAB Ketones UA POCT neg OTHER LAB Specific [place] UA 1.010 OTHER LAB Blood Urine POCT [...] vaginitis documented in this encounter Care Teams Hinging Machine Operator Relationship Specialty Start Date End Date Ramonita Crawford, BANANA EXPERT-SERGING MACHINE OPERATOR AUTOMATIC [address] [place] [address] PCP - General Nurse Practitioner 11/29/23 documented as of this encounter
--- OUTSIDE RECORDS SUMMARY | 2024-09-03 20:00 | XMS_ITS | Encounter Summary ---
Author Organization [facility] Address [address] [place] [address] Phone Care Team Providers Care Final Inspector Paper Name Role Phone Angeles Hernandez MD Unavailable [phone] Reason for Referral * Diagnostic Imaging (Routine) - Closed Specialty Diagnoses / Procedures Referred By Contac t Referred To Contact Diagnoses Breast pain, left Atypical lobular hyperplasia (ALH) of left breast Family history of breast cancer Procedures Diagnostic Mammogram Left W Darren Diagnostic Mammogram Bilateral W Darren Rachel Kay MD [address] [place] [address] Phone: tel: fax: [address] [phone] Referral ID Status Reason Start Date Expiration Date Visits Re quested Visits Authorized [id number] Closed 06/15/2022 07/15/2023 1 1 Encounter Details Date Type Department Care Team (Late st Contact Info) Description 06/15/2022 Orders Only [facility] Oncology [address] [place] [phone] Rachel Kay MD [address] [place] [address] Breast pain, left (Primary Dx); [...] on file 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 SKI GUIDE Gender Identity Female 03/27/2020 5:01 PM CDT Sexual Orientation Lesbian 03/27/2020 5: 01 PM CDT documented as of this encounter Progress Notes * Amy Norton RMA - 06/15/2022 1:39 PM CDT Received VM from Corine in scheduling dept at [facility]. In order for her to have US done, they need an order for DX mamm. Order placed. documented in this encounter Plan of Treatment Not on file documented as of this encounter Results * Diagnostic Mammogram Left W Darren (07/23/2022 12:30 PM SKI GUIDE) Anatomical Region Laterality Modality Breast Left Mammography 07/23/2022 1:27 PM SKI GUIDE Impressions 07/23/2022 1:27 PM SKI GUIDE No evidence of malignancy in the left breast. OVERALL FINAL ASSESSMENT: BI-RADS Category 2: Benign. RECOMMENDATION: Annual screening mammography is recommended. Electronically signed by: Mary Blevins M.D. Narrative 07/23/2022 1:27 PM SKI GUIDE EXAMINATION: LEFT UNILATERAL DIGITAL DIAGNOSTIC MAMMOGRAM AND [...] breast documented in this encounter Care Teams Final Inspector Paper Relationship Specialty Start Date End Date Angeles Hernandez MD [address] [address] Referring Physician Gynecology 07/21/21 documented as of this encounter
--- OUTSIDE RECORDS SUMMARY | 2024-09-03 20:00 | XMS_ITS | Encounter Summary ---
Author Organization [facility] Address [address] [place] [address] Care Team Providers Care Client Development Director Name Role Phone Angeles Hernandez MD Unavailable [phone] Jeff Guzman Primary Care Provider Reason for Visit * Reason Onset Date Comments error 07/28/2022 Encounter Details Date Type Department Care Team ([facility] st Contact Info) Description 07/28/2022 Telephone [facility] Family Medicine at [address] [place] [phone] Jeff Guzman PA [address] [place] [address] [address] [place] [address] error Social History Tobacco Use [...] on file 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 JINGLE WRITER Gender Identity Female 03/27/2020 5:01 PM CDT Sexual Orientation Lesbian 03/27/2020 5: 01 PM CDT documented as of this encounter Miscellaneous Notes * Telephone Encounter - Rachel Butler - 07/29/2022 10:58 AM CST error LE WRITER documented in this encounter Plan of Treatment Not on file documented as of this encounter Visit Diagnoses Not on filedocumented in this encounter Care Teams Client Development Director Relationship Specialty Start Date End Date Jeff Guzman PA [address] [place] [address] PCP - General Family Medicine 06/21/22 02/17/23 Angeles Hernandez MD [address] [place] [address] Referring Physician Gynecology 07/21/21 documented as of this encounter
--- OUTSIDE RECORDS SUMMARY | 2024-09-03 20:00 | XMS_ITS | Encounter Summary ---
Author Organization [facility] Address [address] [place] [address] Phone Care Team Providers Care Cubing Machine Tender Name Role Phone Angeles Hernandez MD Unavailable [phone] Ramonita Crawford NP Primary Care Provider [phone] Reason for Referral * Diagnostic Imaging (Routine) - Closed Specialty Diagnoses / Procedures Referred By Contcosme t Referred To Contact Diagnoses Vitreous syneresis of both eyes Procedures OCT, Retina - OU - Both Eyes Mary Ann Webster MD [address] [place] [address] Phone: tel: fax: [facility] (All Locations) Referral ID Status Reason Start Date Expiration Date Visits Re quested Visits Authorized [id number] Closed 03/16/2023 04/14/2024 1 1 * Diagnostic Imaging (Routine) - Closed Specialty Diagnoses / Procedures Referred By Sharlene angulo Referred To Contact Diagnoses Vitreous syneresis of both eyes Procedures IOL Biometry - OU - Both Eyes Mary Ann Webster MD [address] [place] [address] Phone: tel: fax: [facility] (All Locations) Referral ID Status Reason Start Date Expiration Date Visits Re quested Visits Authorized [id number] Closed 03/16/2023 04/14/2024 1 1 * Diagnostic Imaging (Routine) - Closed Specialty Diagnoses / Procedures Referred By Contac t Referred To Contact Diagnoses Vitreous syneresis of both eyes Procedures Miller Visual Field - OU - Both Eyes Mary Ann Webster MD [address] [place] [address] Phone: tel: fax: [facility] (All Locations) Referral ID Status Reason Start Date Expiration Date Visits Re quested Visits Authorized [id number] Closed 03/16/2023 04/14/2024 1 1 Encounter Details Date Type Department Care Team (Late st Contact Info) Description 03/16/2023 Orders Only [facility] [address] [place] [phone] Mary Ann Webster MD [address] [place] [address] Vitreous syneresis of both eyes (Primary Dx) [...] on file 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 PHYSICS AND ASTRONOMY PROFESSOR Gender Identity Female 03/27/2020 5:01 PM [...] surgical planning us Mary Ann Webster MD [facility] ULTRASOUND Edited Resul t - Final * [...] Full OU us Mary Ann Webster MD [facility] VISUAL FIELD Edited Res ult - Final [...] eyes documented in this encounter Care Teams Cubing Machine Tender Relationship Specialty Start Date End Date Ramonita Crawford NP [address] [address] PCP - General Family Medicine 02/18/23 Angeles Hernandez MD [address] [address] Referring Physician Gynecology 07/21/21 documented as of this encounter
--- OUTSIDE RECORDS SUMMARY | 2024-09-03 20:00 | XMS_ITS | Encounter Summary ---
Author Organization [facility] Address [address] [place] [address] Phone Care Team Providers Care Oracle Hyperion Consultant Name Role Phone Angeles Hernandez MD Unavailable [phone] Jeff Guzman Primary Care Provider [phone] Reason for Visit * Reason Onset Date Comments Medical Records Request 09/13/2022 OV note and Echo Encounter Details Date Type Department Care Team (Late st Contact Info) Description 09/13/2022 Telephone [facility] Cardiology [address] [facility] Advanced Medicine 8th [place] [address] [place] [address] Vasquez Schneider MD [address] [facility] [address] [place] [address] Medical Records Request (OV note [...] on file 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 BAGGAGE SCREENER Gender Identity Female 03/27/2020 5:01 PM CDT Sexual Orientation Lesbian 03/27/2020 5: 01 PM CDT documented as of this encounter Miscellaneous Notes * Telephone Encounter - Joceline Dietz - 09/13/2022 2:35 PM CST Faxed recent OV note and echo to Jennifer at [facility]. AGE SCREENER * Telephone Encounter - Shae Cook - 09/13/2022 1:06 PM CST KSY AHUJA WITH [facility] ENDOSCOPY REQ PT'S MOST RECENT OFFICE NOTE AND ECHO REPORT FAX [phone] AGE SCREENER documented in this encounter Plan of Treatment Not on file documented as of this encounter Visit Diagnoses Not on filedocumented in this encounter Care Teams Oracle Hyperion Consultant Relationship Specialty Start Date End Date Jeff Guzman PA [address] [place] [address] PCP - General Family Medicine 06/21/22 02/17/23 Angeles Hernandez MD [address] [place], [place] [id number] Referring Physician Gynecology 07/21/21 documented as of this encounter
--- OUTSIDE RECORDS SUMMARY | 2024-09-03 20:00 | XMS_ITS | Encounter Summary ---
Author Organization [facility] Healthcare Address [address] [place] [address] Care Team Providers Care Web Machine Tender Name Role Phone Angeles Hernandez MD Unavailable [phone] Ramonita Crawford NP Primary Care Provider [phone] Reason for Visit * Auth/Cert (Routine) Specialty Diagnoses / Procedures Referred By Contac t Referred To Contact Diagnoses Right upper quadrant pain Nausea Abnormal findings on dx imaging of prt digestive tract Right upper quadrant pain [R10.11] Nausea [R11.0] Abnormal findings on dx imaging of prt digestive tract [R93.3] Procedures ERCP; Admit to [facility] Referral ID Status Reason Start Date Expiration Date Visits Re quested Visits Authorized [id number] 1 1 Encounter Details Date Type Department Care Team (Latest Contact Info) Description 05/11/2023 3:00 PM CDT - 05/11/2023 3:30 PM CDT Surgery [facility] [address] [place] [phone] Jordan Duff MD [address] [facility] [address] [place] [address] ENDO ENDOSCOPIC RETROGRADE CHOLANGIOPANCREATOGRAPHY WITH REMOVAL FOREIGN BODY/STENT Surgery Details Date/Time Status Location OR Service Patient Class Case Class Case Type Trauma Case? 05/11/2023 3:00 PM Posted [facility] ENDOSCOPY GI 09 Gastroenterology Inpatient Elective Panel [...] often do you attend chur ch or confucianist services? Never 05/10/2023 Do you belong to any clubs o r organizations such as taoist groups, unions, fraternal or athletic groups, or [...] in a prison (including now)? No 05/10/2023 Comments No Sex and Gender Information Value Date Recorded Sex Assigned at Not on file 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 RETIREMENT [employer] Gender Identity Female 03/27/2020 5:01 PM CDT [...] : S1, S2. Abdomen: Bowel sounds positive. Insole Tacker: Alert, awake, oriented x3. There is no gross focal neurological deficit. Extremities: There is no pedal edema. PLAN So the plan will be to continue present medications, send the patient home and follow up with Dr. Duff's office in 6-8 weeks. Patient has been advised to follow the strict low-fat diet and to avoid alcohol and smoking. Job ID/Internal Job ID: [id number] documented in this encounter Discharge Instructions * Attachments The following attachments cannot be sent through Care Everywhere. * Low Fat Diet (Discharge Care) (Albanian) documented in this encounter Medications at Time [...] History: Diagnosis Date Arthritis Asthma Brain concussion [id number] Cardiomyopathy (HCC) Cataract Cholelithiasis Depression [id number] Epiretinal membrane (ERM), bilateral GERD (gastroesophageal reflux [...] Clear Liquid (Order Panel) Effective tomorrow Question: ([facility]) Diet type Answer: Clear Liquid 05/09/23 5328 Nutrition Needs Calculations: Calculated Energy Needs Using [...] do just ice chips and sips per TERMINAL COMPUTER OPERATOR notes. Attempted visit but RN reported pt was not appropriate for RD assessment at that time, VINEYARD TENDER called and pt given narcan per notes. [...] NP 05/10/2023 This note was transcribed using [employer] Speech Recognition software. As a result, there [...] oral, Q4H PRN, 650 mg at 05/09/23 6782 albuterol 2.5 mg /3 mL (0.083 %) [...] and patient improves symptomatically. Kaycee Reece MD [facility] * Ruslan Conrad [facility] - 05/09/2023 5:08 PM CDT Pharmacy Note - Formulary Substitution Albuterol nebs have been substituted for Xopenex nebs as approved by the [facility] and Therapeutics Committee. Ruslan Conrad [...] CV: S1-S2. ABDOMEN: Distal bowel sounds positive. RESIDENTIAL THERAPIST: Alert, awake, oriented x3. There is no [...] patient improves symptomatically. Job ID/Internal Job ID: [id number] documented in this encounter Procedure Notes * Jordan Duff MD - 05/11/2023 2:11 PM CDTAssociated Order(s): ERCP ENDOSCOPY LAB Patient Name: Chrissy Kilgore Procedure Date: 05/11/2023 2:11 PM Admit Type: Inpatient Room: [facility] Date of : 1970 Instrument Name: [id number] [...] one pancreatic stents were visible on the drone operator film. The esophagus was successfully intubated under [...] discussed. Start a fat-selective diet using preferentially [place] 3-rich sources, healthier and in our experience [...] drowsy. - Call our office as needed ([phone]). If ER visit is needed, make sure [...] 05/09/2023 9:44 AM Admit Type: Outpatient Room: [facility] 9 Date of : 1970 Instrument [...] duct and ventral pancreatic duct. Findings: A drone operator film of the abdomen was obtained and [...] Rapid Response Team Event Note Reason for VINEYARD TENDER: Apnea, somnolence Time Called: 1145 Time Arrived: 1150 SUBJECTIVE BRIEF HX: Patient is a 52 y.o. female with past medical history of asthma, GERD, cholelithiasis, HTN, IBS admitted on 05/09/[address] Duff. POD#1 VINEYARD TENDER was called 2/2 apnea and altered mental [...] History: Diagnosis Date Arthritis Asthma Brain concussion [id number] Cardiomyopathy (HCC) Cataract Cholelithiasis Depression [id number] Epiretinal membrane (ERM), bilateral GERD (gastroesophageal reflux [...] zanaflex #Lethargy 2/2 medications -Multiple medications with RESIDENTIAL THERAPIST depression: dilaudid, compazine, and PRN ativan -Caution [...] Coverage: yes- medicaid Prescription Coverage: yes Pharmacy: [facility] #[id number] - [place] - [address] AT [facility] [address] [id number] Primary Care Provider: Ramonita Crawford NP Prior to Admission: Functional Status: Independent with ADLs Primary Caregiver: Self Support System: Spouse/Significant Other Support system contact info (name, phone, availablity): garry jasso [phone] Home Care Services: No Durable Medical Equipment: [...] a week How often do you attend taoist or confucianist services?: Never Do you belong to any clubs or organizations such as taoist groups, unions, fraternal or athletic groups, or [...] to be Discharged to: Private residence, (05/09/23 1929) Additional Information: CM met with pt at [...] Collaboration with patient, MD, direct care nurse, Signwriter, and other members of the health care team to assure needed interventions completed. 2. Return patient to optimal level of self-care post discharge. 3. Clinical Administrative Coordinator will follow for Discharge Planning - interventions [...] and Pancreatic (05/11/2023 2:33 PM CDT) Narrative RAD_PACS_[facility] - 05/11/2023 2:34 PM CDT The images from this study are not interpreted by Radiology. ??Please refer to the physician's procedure / OR operative note. us Jordan Duff MD IMG FLUOROSCOPY PROCEDURES Final Result [facility] * ERCP (05/11/2023 2:11 PM CDT) Anatomical Region Laterality Modality Other Narrative Procedure Note Jordan Duff MD - 05/11/2023 2:11 PM CDT ENDOSCOPY LAB Patient Name: Chrissy Kilgore Procedure Date: 05/11/2023 2:11 PM Admit Type: Inpatient Room: [facility] 9 Date of : 1970 Instrument [...] one pancreatic stents were visible on the drone operator film. The esophagus was successfully intubated under [...] drowsy. - Call our office as needed ([phone]). If ER visit is needed, make sure [...] Neutrophil abs 5.5 1.7 - 6.5 K/cumm [facility] Imm gran abs 0.0 0.0 - 0.1 K/cumm [facility] Lymphocyte abs 1.2 0.8 - 3.3 K/cumm [facility] Monocyte abs 0.4 0.2 - 0.8 K/cumm [facility] Eosinophil abs 0.2 0.0 - 0.5 K/cumm [facility] Basophil abs 0.0 0.0 - 0.1 K/cumm [facility] Neutrophil pct 75.8 % [facility] Comment: Interpretive Data Percent cell count reference ranges are not reported, since discordance with absolute values may lead to misinterpretation of CBC data. Current Interpretive Data was last revised on 2017. Imm gran pct 0.3 % [facility] Comment: Interpretive Data Percent cell count reference ranges are not reported, since discordance with absolute values may lead to misinterpretation of CBC data. Current Interpretive Data was last revised on 2017. Lymphocyte pct 16.0 % [facility] Comment: Interpretive Data Percent cell count reference ranges are not reported, since discordance with absolute values may lead to misinterpretation of CBC data. Current Interpretive Data was last revised on 2017. Monocyte pct 5.3 % [facility] Comment: Interpretive Data Percent cell count reference ranges are not reported, since discordance with absolute values may lead to misinterpretation of CBC data. Current Interpretive Data was last revised on 2017. Eosinophil pct 2.2 % [facility] Comment: Interpretive Data Percent cell count reference ranges are not reported, since discordance with absolute values may lead to misinterpretation of CBC data. Current Interpretive Data was last revised on 2017. Basophil pct 0.4 % [facility] Comment: Interpretive Data Percent cell count reference ranges are not reported, since discordance with absolute values may lead to misinterpretation of CBC data. Current Interpretive Data was last revised on 2017. Blood 05/10/2023 7:24 AM CDT 05/10/2023 7:30 AM CDT us Jordan Duff MD LAB BLOOD ORDERABLES Final Result [facility] [address] Department [place] [address] * CBC with auto differential (05/10/2023 7:24 AM CDT) WBC 7.2 3.8 - 9.9 K/cumm [facility] Hgb 12.2 11.9 - 15.5 g/dL [facility] Hct 36.6 35.6 - 45.5 % [facility] Plt 289 150 - 400 K/cumm [facility] MPV 9.4 9.1 - 12.3 fL [facility] RBC 4.19 3.90 - 5.20 M/cumm [facility] MCV 87.4 81.3 - 96.4 fL [facility] MCH 29.1 27.1 - 33.3 pg [facility] MCHC 33.3 32.3 - 35.7 g/dL [facility] RDW CV 12.3 11.1 - 14.9 % [facility] RDW SD 39.0 35.7 - 48.1 fL [facility] NRBC abs 0.00 0.00 - 0.01 K/cumm [facility] Blood 05/10/2023 7:24 AM CDT 05/10/2023 7:30 AM CDT Jordan Duff MD LAB BLOOD ORDERABLES Final Result [facility] [address] Department [place] [address] * ERCP (05/09/2023 9:44 AM CDT) Anatomical Region Laterality Modality Other Narrative Procedure Note Jordan Duff MD - 05/09/2023 9:44 AM CDT ENDOSCOPY LAB Patient Name: Chrissy Kilgore Procedure Date: 05/09/2023 9:44 AM Admit Type: Outpatient Room: [facility] Date of : 1970 Instrument Name: [id number] [...] duct and ventral pancreatic duct. Findings: A drone operator film of the abdomen was obtained and [...] 2.5 mg, nebulization, Every 4 hours PRN (socially responsible investment adviser), wheezing, Starting on Tue05/09/23 at 1705, Therapeutic Interchange for Xopenex as approved by [facility] P&T Committee. albuterol HFA (PROVENTIL HFA,VENTOLIN HFA,PROAIR HFA) 90 mcg/actuation inhaler 2 puff 2 puff, inhalation, Every 6 hours PRN (socially responsible investment adviser), wheezing, Starting on Tue05/09/23 at 1704 aluminum-magnesium [...] Transfer Provider - Reason: Patient not available)1628 ([facility] Unhold - Provider: Automatic Transfer Provider) carvediloL (COREG) tablet 3.125 mg 3.125 mg, oral, 2 times daily with meals (bkfst, dinner), First dose on Tue05/09/23 at 1800 1716 (Given - Provider: Shirley Escamilla RN) 0812 (Given - Provider: Deedee Steel, ADAMA)1731 (Given - Provider: Deedee Steel RN) 0910 (Given - Provider: Pamela Marlow, ADAMA)1332 ([facility] Hold - Provider: Automatic Transfer Provider - Reason: Patient not available)162 ([facility] Unhold - Provider: Automatic Transfer Provider)1800 (Due) cetirizine (ZyrTEC) tablet 10 mg 10 mg, oral, Daily, First dose on Tue05/09/23 at 1700 1716 (Given - Provider: Shirley Escamilla RN) 0812 (Given - Provider: Deedee Steel, ADAMA) 0910 (Given - Provider: Pamela Marlow, ADAMA)1332 ([facility] Hold - Provider: Automatic Transfer Provider - Reason: Patient not available)1628 ([facility] Unhold - Provider: Automatic Transfer Provider) docusate sodium (COLACE) capsule 100 mg 100 mg, oral, 2 times daily, First dose on Tue05/09/23 at 2100 2110 (Given - Provider: Aniyah Carney RN) 0812 (Given - Provider: Deedee Steel, ADAMA)2002 (Given - Provider: Yajaira Chen, ADAMA) 09 (Given - Provider: Pamela Marlow, ADAMA)133 ([facility] Hold - Provider: Automatic Transfer Provider - Reason: Patient not available)162 ([facility] Unhold - Provider: Automatic Transfer Provider) fluticasone propionate (FLONASE) 50 mcg/actuation nasal spray 2 spray 2 spray, each nostril, Daily, First dose on Tue05/09/23 at 1700 1734 (Given - Provider: Socorro Gamboa RN) 08 (Given - Provider: Deedee Steel, ADAMA) 09 (Given - Provider: Pamela Marlow, ADAMA)133 ([facility] Hold - Provider: Automatic Transfer Provider - Reason: Patient not available)162 ([facility] Unhold - Provider: Automatic Transfer Provider) levoFLOXacin [...] (Given - Provider: Yajaira Chen, ADAMA) 1331 ([facility] Hold - Provider: Automatic Transfer Provider - Reason: Patient not available)162 ([facility] Unhold - Provider: Automatic Transfer Provider) naloxone [...] 0910 (Given - Provider: Pamela Marlow, ADAMA)1332 ([facility] Hold - Provider: Automatic Transfer Provider - Reason: Patient not available)1628 ([facility] Unhold - Provider: Automatic Transfer Provider) pantoprazole DR (PROTONIX) extended release tablet 40 mg 40 mg, oral, Daily, First dose on Tue05/09/23 at 1700, Do not crush, chew, cut, dissolve, open or otherwise manipulate tablet/capsule., Indications: Treatment of Non-Bleeding Gastric Disorder 1716 (Given - Provider: Shirley Escamilla RN) 0812 (Given - Provider: Deedee Steel, ADAMA) 0910 (Given - Provider: Pamela Marlow, ADAMA)1332 ([facility] Hold - Provider: Automatic Transfer Provider - Reason: Patient not available)1628 ([facility] Unhold - Provider: Automatic Transfer Provider) rosuvastatin (CRESTOR) tablet 5 mg 5 mg, oral, Daily, First dose on Tue05/10/23 at 0900 0812 (Given - Provider: Deedee Steel RN) 0910 (Given - Provider: Pamela Marlow, ADAMA)1332 ([facility] Hold - Provider: Automatic Transfer Provider - Reason: Patient not available)1628 ([facility] Unhold - Provider: Automatic Transfer Provider) sacubitriL-valsartan (ENTRESTO) 24-26 mg tablet 1 tablet 1 tablet, oral, Every 12 hours, First dose on Tue05/09/23 at 1700 1716 (Given - Provider: Shirley Escamilla RN) 0542 (Given - Provider: Aniyah Carney RN)1731 (Given - Provider: Deedee Steel RN) 0438 (Given - Provider: Yajaira Chen RN)1332 ([facility] Hold - Provider: Automatic Transfer Provider - Reason: Patient not available)1628 ([facility] Unhold - Provider: Automatic Transfer Provider)1700 (Due) [...] (Given - Provider: Aniyah Carney RN) 1332 ([facility] Hold - Provider: Automatic Transfer Provider - Reason: Patient not available)1628 ([facility] Unhold - Provider: Automatic Transfer Provider) albuterol 2.5 mg /3 mL (0.083 %) nebulizer solution 2.5 mg 2.5 mg, nebulization, Every 4 hours PRN (socially responsible investment adviser), wheezing, Starting on Tue05/09/23 at 1705, Therapeutic Interchange for Xopenex as approved by [facility] P&T Committee. 1332 ([facility] Hold - Provider: Automatic Transfer Provider - Reason: Patient not available)1628 ([facility] Unhold - Provider: Automatic Transfer Provider) albuterol HFA (PROVENTIL HFA,VENTOLIN HFA,PROAIR HFA) 90 mcg/actuation inhaler 2 puff 2 puff, inhalation, Every 6 hours PRN (socially responsible investment adviser), wheezing, Starting on Tue05/09/23 at 1704 1332 ([facility] Hold - Provider: Automatic Transfer Provider - Reason: Patient not available)1628 ([facility] Unhold - Provider: Automatic Transfer Provider) aluminum-magnesium hydroxide-simethicone (MAALOX) 40-40-4 mg/mL oral suspension 30 mL 30 mL, oral, Every 4 hours PRN, heartburn, Starting on Tue05/10/23 at 1003 1332 ([facility] Hold - Provider: Automatic Transfer Provider - Reason: Patient not available)1628 ([facility] Unhold - Provider: Automatic Transfer Provider) famotidine (PEPCID) tablet 20 mg 20 mg, oral, Every 12 hours PRN, indigestion, heartburn, Starting on Tue05/09/23 at 1619 1716 (Given - Provider: Shirley Escamilla RN) 1332 ([facility] Hold - Provider: Automatic Transfer Provider - Reason: Patient not available)1628 ([facility] Unhold - Provider: Automatic Transfer Provider) HYDROmorphone (DILAUDID) injection 1 mg (COMPLETED) 1 mg, intravenous, Administer over 2 Minutes, Every 30 min PRN, 1st line for pain, Administer one minute after lorazepam, Starting on Tue05/09/23 at 1034, For 2 doses, Recovery (GI), Hold for lethargy 1100 (Given - Provider: Roseann Decker, ADAMA)1146 (Given - Provider: Roseann Dekcer RN) HYDROmorphone (DILAUDID) injection 1 mg 1 mg, intravenous, Administer over 2 Minutes, Every 3 hours PRN, pain, Starting on Tue05/09/23 at 1619, Hold for somnolence 1716 (Given - Provider: Shirley Escamilla, ADAMA)2116 (Given - Provider: Aniyah Carney RN) 0415 (Given - Provider: Aniyah Carney RN)0810 (Given - Provider: Deedee Steel RN)1105 (Given - Provider: Deedee Steel RN) 1332 ([facility] Hold - Provider: Automatic Transfer Provider - Reason: Patient not available)1628 ([facility] Unhold - Provider: Automatic Transfer Provider) ioversoL [...] 0910 (Given - Provider: Pamela Marlow, ADAMA)1332 ([facility] Hold - Provider: Automatic Transfer Provider - Reason: Patient not available)1628 ([facility] Unhold - Provider: Automatic Transfer Provider) LORazepam [...] Transfer Provider - Reason: Patient not available)1628 ([facility] Unhold - Provider: Automatic Transfer Provider) prochlorperazine (COMPAZINE) injection 5 mg 5 mg, intravenous, Administer over 2 Minutes, Every 6 hours PRN, nausea, vomiting, Starting on Tue05/10/23 at 1046 1108 (Given - Provider: Deedee Steel, ADAMA) 0033 (Given - Provider: Yajaira Chen, ADAMA)1332 ([facility] Hold - Provider: Automatic Transfer Provider - Reason: Patient not available)1628 ([facility] Unhold - Provider: Automatic Transfer Provider) secretin (CHIRHOSTIM) injection (CANCELED) Administer over 1 Minutes, As needed, Starting on Tue05/09/23 at 1013, Intra-Op 1013 (Given - Provider: Aleja Palomo RN) tiZANidine (ZANAFLEX) tablet 4 mg 4 mg, oral, 3 times daily PRN, muscle spasms, Starting on Tue05/09/23 at 1619, Administer on an empty stomach 1332 ([facility] Hold - Provider: Automatic Transfer Provider - Reason: Patient not available)1628 ([facility] Unhold - Provider: Automatic Transfer Provider) No [...] 05/10/2023 documented in this encounter Care Teams Web Machine Tender Relationship Specialty Start Date End Date Ramonita Crawford NP [address] [address] PCP - General Family Medicine 02/18/23 Angeles Hernandez MD [address] [address] Referring Physician Gynecology 07/21/21 documented as of this encounter
--- OUTSIDE RECORDS SUMMARY | 2024-09-03 20:00 | XMS_ITS | Encounter Summary ---
Author Organization [facility] Address [address] [place] [address] Care Team Providers Care Senior Software Engineer Name Role Phone Angeles Hernandez MD Unavailable [phone] Jeff Guzman Primary Care Provider [phone] Encounter Details Date Type Department Care Team (Late st Contact Info) Description 09/10/2022 Telephone [facility] Family Medicine at [address] [place] [address] Jeff Guzman PA [address] [place] [address] [address] [place] [address] Social History Tobacco Use Types [...] on file 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 FILAMENT TESTER Gender Identity Female 03/27/2020 5:01 PM CDT Sexual Orientation Lesbian 03/27/2020 5: 01 PM CDT documented as of this encounter Miscellaneous Notes * Telephone Encounter - Rigoberto Morales MA - 09/10/2022 12:38 PM CST Sope with pt and she stated that med Tramadol was straighten out by the insurance co & pharmacy. MENT TESTER * Telephone Encounter - Rigoberto Morales MA - 09/10/2022 12:37 PM CST ----- Message from Vikki Rust RN sent at 09/09/2022 8:09 AM FILAMENT TESTER ----- Regarding: FW: Prior authorization from insurance for my tramadol Contact: Can you please look into and update patient ----- Message ----- From: Chrissy Kilgore Sent: 09/09/2022 7:58 AM FILAMENT TESTER To: [facility] Clinical Subject: Prior [...] contact me about my situation. Thank you MENT TESTER documented in this encounter Plan of Treatment Not on file documented as of this encounter Visit Diagnoses Not on filedocumented in this encounter Care Teams Senior Software Engineer Relationship Specialty Start Date End Date Jeff Guzman PA [address] [place] [address] PCP - General Family Medicine 06/21/22 02/17/23 Angeles Hernandez MD [address] [place] [address] Referring Physician Gynecology 07/21/21 documented as of this encounter
--- OUTSIDE RECORDS SUMMARY | 2024-09-03 20:00 | XMS_ITS | Encounter Summary ---
Author Organization [facility] Address [address] [place] [address] Phone Care Team Providers Care Cleaning Handyman Name Role Phone Angeles Hernandez MD Unavailable [phone] aRmonita Crawford NP Primary Care Provider [phone] Reason for Visit * Diagnostic Imaging (Routine) - Closed Specialty Diagnoses / Procedures Referred By Sharlene t Referred To Contact Diagnoses Vitreous syneresis of both eyes Procedures OCT, Retina - OU - Both Eyes Mary Ann Webster MD [address] [place] [address] Phone: tel: fax: [facility] (All Locations) Referral ID Status Reason Start Date Expiration Date Visits Re quested Visits Authorized [id number] Closed 03/16/2023 04/14/2024 1 1 Encounter Details Date Type Department Care Team (Late st Contact Info) Description 05/20/2023 8:20 AM CDT Imaging Exam [facility] 6th [place] [id number] Vitreous syneresis of both eyes Social History [...] often do you attend chur ch or yarsani services? Never 05/10/2023 Do you belong to any clubs o r organizations such as oriental orthodox groups, unions, fraternal or athletic groups, [...] on file 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 MICA PARTS SPRAYER Gender Identity Female 03/27/2020 5:01 PM CDT [...] eyes documented in this encounter Care Teams Cleaning Handyman Relationship Specialty Start Date End Date Ramonita Crawford NP [address] [place] [address] PCP - General Family Medicine 02/18/23 Angeles Hernandez MD [address] [address] Referring Physician Gynecology 07/21/21 documented as of this encounter
--- OUTSIDE RECORDS SUMMARY | 2024-09-03 20:00 | XMS_ITS | Encounter Summary ---
Author Organization [facility] Address [address] [place] [address] Phone Care Team Providers Care Assessment Manager Name Role Phone Angeles Hernandez MD Unavailable [phone] Ramonita Crawford NP Primary Care Provider [phone] Reason for Visit * Reason Onset Date Comments 06/21/2023 Surgery 05/23/2023 Encounter Details Date Type Department Care Team (Late st Contact Info) Description 05/23/2023 Telephone [facility] Op[facility]mology [address] [facility] 2nd Floor, [address] [place] [address] Madyson Davila, COA 06/21/2023 Surgery [...] often do you attend chur ch or amish services? Never 05/10/2023 Do you belong to any clubs o r organizations such as orthodoxy groups, unions, fraternal or athletic groups, or [...] on file 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 TELECINE OPERATOR Gender Identity Female 03/27/2020 5:01 PM CDT Sexual Orientation Lesbian 03/27/2020 5: 01 PM CDT documented as of this encounter Miscellaneous Notes * Telephone Encounter - Madyson Davila COA - 06/17/2023 11:39 AM CDT Spoke to patient and gave all surgery details for surgery scheduled on 06/21/[address] Webster Arrival time: 7:45am Surgery is at [facility] Located at [address] [facility] [facility] [address], go in Main Entrance then take elevator to first floor. Check in at desk just inside surgery centers door. Remember; nothing to eat after midnight the night before and make sure they have a driver education instructor to drive them home (family member or [...] on filedocumented in this encounter Care Teams Assessment Manager Relationship Specialty Start Date End Date Ramonita Crawford NP [address] [address] PCP - General Family Medicine 02/18/23 Angeles Hernandez MD [address] [address] Referring Physician Gynecology 07/21/21 documented as of this encounter
--- OUTSIDE RECORDS SUMMARY | 2024-09-03 20:00 | XMS_ITS | Encounter Summary ---
Author Organization [facility] Address [address] [facility] [address] [place] [address] Care Team Providers Care Recreation Facilities Supervisor Name Role Phone Angeles Hernandez MD Unavailable [phone] Jeff Guzman Primary Care Provider [phone] Reason for Visit * Reason Onset Date Comments Medication Request 01/03/2023 Encounter Details Date Type Department Care Team ([facility] Contact Info) Description 01/03/2023 Telephone [facility] Family Medicine at [address] [place] [address] Jeff Guzman PA [address] [place] [address] [address] [place] [address] Medication Request Social History Tobacco [...] on file 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 Yes-Action Needed documented in this encounter Plan of Treatment Not on file documented as of this encounter Visit Diagnoses Not on filedocumented in this encounter Care Teams Recreation Facilities Supervisor Relationship Specialty Start Date End Date Jeff Guzman PA [address] [place] [address] PCP - General Family Medicine 06/21/22 02/17/23 Angeles Hernandez MD [address] [place], [place] [address] Referring Physician Gynecology 07/21/21 documented as of this encounter
--- OUTSIDE RECORDS SUMMARY | 2024-09-03 20:00 | XMS_ITS | Encounter Summary ---
Author Organization [facility] Address [address] [place] [address] Phone Care Team Providers Care Communication Engineer Name Role Phone Angeles Hernandez MD Unavailable [phone] Reason for Visit * Cardiology (Routine) - Closed Specialty Diagnoses / Procedures Referred By Contac t Referred To Contact Diagnoses Broken heart syndrome Encounter to establish care with new doctor Procedures Transthoracic Echo (TTE) [place] [address] [place] [address] [address] [place] [address] Phone: tel: fax: External Order Referral ID Status Reason Start Date Expiration Date Visits Re quested Visits Authorized [id number] Closed 05/11/2022 06/10/2023 1 1 Encounter Details Date Type Department Care Team (Latest Contact Info) Description 06/01/2022 3:00 PM CDT Ancillary Procedure [facility] Cardiology [address] [place] [address] [address] [place] [address] Broken heart syndrome; Encounter to establish care [...] on file 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 Contrast Administered by: Eileen Avila RDCS Supervised/Interpreted by: Jeannie Swanson MD Diagnosis: Location: [facility] Reason for test: Broken Heart Syndrome MV [...] 2=Hypo 3=Akinetic 4=Dyskin./Aneurysm 0=Not visualized) Parasternal Long Vesuvius:MAS=1 BAS=1 MIL=1 BRENDA=1 Parasternal Short Vesuvius:MAS=1 MIS=1 KY=1 MIL=1 MAL=1 MA=1 Apical 4 Chambers:=1 MIS=1 BIS=1 BAL=1 MAL=1 AL=1 AC=1 Apical 2 Chambers:AI=1 KY=1 BI=1 BA=1 MA=1 AA=1 AC=1 LV Global [...] MD By signing this report, the attending shank tapper certifies that he or she has personally supervised and interpreted the echocardiogram and has reviewed and or edited and agrees with the written comments contained within the report. Procedure Note Jeannie Swanson MD - 06/02/2022 Patient name: Chrissy Kilgore Date of test: 06/01/2022 Type of test: TTE w/Doppler [facility] #: 0 Date of : 1970 (F) Sheet Rock Applicator: Eileen Avila RDCS Referring Physician: JEANNIE SWANSON MD Contrast Agent: 1.1 ml Optison Administered, (1.9 ml wasted). Contrast Administered by: Eileen Avila RDCS Supervised/Interpreted by: Jeannie Swanson MD Diagnosis: Location: [facility] Reason for test: Broken Heart Syndrome MV [...] 2=Hypo 3=Akinetic 4=Dyskin./Aneurysm 0=Not visualized) Parasternal Long Vesuvius:MAS=1 BAS=1 MIL=1 BRENDA=1 Parasternal Short Vesuvius:MAS=1 MIS=1 KY=1 MIL=1 MAL=1 MA=1 Apical 4 Chambers:=1 MIS=1 BIS=1 BAL=1 MAL=1 AL=1 AC=1 Apical 2 Chambers:AI=1 KY=1 BI=1 BA=1 MA=1 AA=1 AC=1 LV Global [...] MD By signing this report, the attending shank tapper certifies that he or she has personally [...] 06/01/2022 documented in this encounter Care Teams Communication Engineer Relationship Specialty Start Date End Date Angeles Hernandez MD [address] [place] [address] Referring Physician Gynecology 07/21/21 documented as of this encounter
--- OUTSIDE RECORDS SUMMARY | 2024-09-03 20:00 | XMS_ITS | Encounter Summary ---
Author Organization [facility] Address [address] [place] [address] Care Team Providers Care Bucket Hooker Name Role Phone Angeles Hernandez MD Unavailable [phone] Ramonita Crawford NP Primary Care Provider [phone] Reason for Visit * Auth/Cert (Routine) Specialty Diagnoses / Procedures Referred By Contac t Referred To Contact Diagnoses Right upper quadrant pain Nausea Abnormal findings on dx imaging of prt digestive tract Right upper quadrant pain [R10.11] Nausea [R11.0] Abnormal findings on dx imaging of prt digestive tract [R93.3] Procedures ERCP; Admit to [facility] Referral ID Status Reason Start Date Expiration Date Visits Re quested Visits Authorized [id number] 1 1 Encounter Details Date Type Department Care Team (Late st Contact Info) Description 05/09/2023 9:56 AM CDT Anesthesia Event [facility] [address] [place] [address] Javier Castanon DO [address] [place] [address] Anesthesia Record Procedure Summary Procedure Name Responsible [...] 05/10/2023 How often do you attend chur Qnovo or church services? 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 Gender Identity Female 03/27/2020 5:01 PM CDT Sexual Orientation Lesbian 03/27/2020 5: 01 PM CDT documented as of this encounter OR Notes * Anesthesia Postprocedure Evaluation - Estefani Masters CRNA - 05/09/2023 10:33 AM CDT Patient: Chrissy Kilgore Procedure Summary Date: 05/09/23 Room / Location: [place] [address] / [facility] Anesthesia Start: 955 Anesthesia Stop: 1031 [...] History: Diagnosis Date Arthritis Asthma Brain concussion [id number] Cardiomyopathy (HCC) Cataract Cholelithiasis Depression [id number] Epiretinal membrane (ERM), bilateral GERD (gastroesophageal reflux [...] Medication protocol when under care of a LOAD DISPATCHER Planned anesthesia: General TIVA Induction: Induction: intravenous. [...] mL/hr documented in this encounter Care Teams Bucket Hooker Relationship Specialty Start Date End Date Ramonita Crawford NP [address] [address] PCP - General Family Medicine 02/18/23 Angeles Hernandez MD [address] [address] Referring Physician Gynecology 07/21/21 documented as of this encounter
--- OUTSIDE RECORDS SUMMARY | 2024-09-03 20:00 | XMS_ITS | Encounter Summary ---
Author Organization [facility] Address [address] [place] [address] Phone Care Team Providers Care Communication Clerk Name Role Phone Angeles Hernandez MD Unavailable [phone] Jeff Guzman Primary Care Provider [phone] Reason for Referral * Diagnostic Imaging (Routine) - Closed Specialty Diagnoses / Procedures Referred By Contac t Referred To Contact Diagnoses Epiretinal membrane (ERM) of both eyes Procedures OCT, Retina - OU - Both Eyes Basilio Jay MD PhD [address] [address] Phone: tel: fax: [facility] (All Locations) Referral ID Status Reason Start Date Expiration Date Visits Re quested Visits Authorized [id number] Closed 01/11/2023 02/10/2024 1 1 Reason for Visit * Reason Comments ERM OU Encounter Details Date Type Department Care Team (Late st Contact Info) Description 01/11/2023 7:50 AM CDT Office Visit [facility] [address] [place] [address] Health 6th [place] [address] Basilio Jay MD PhD [address] [address] Age-related nuclear cataract of right [...] on file 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
--- OUTSIDE RECORDS SUMMARY | 2024-09-03 20:00 | XMS_ITS | Encounter Summary ---
Author Organization [facility] Address [address] [place] [address] Care Team Providers Care Cook Box Filler Name Role Phone Angeles Hernandez MD Unavailable [phone] Jeff Guzman Primary Care Provider [phone] Reason for Visit * Reason Onset Date Comments Prior Auth 01/07/2023 Tramadol Encounter Details Date Type Department Care Team ([facility] Contact Info) Description 01/07/2023 Telephone [facility] Family Medicine at [address] [place] [address] Jeff Guzman PA [address] [place] [address] [address] [place] [address] Prior Auth (Tramadol) Social History [...] file 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 Spoke with Thom and they explain why and told me to resubmit with the correct ans. So I resubmitted PA form to Thom. documented in this encounter Plan of Treatment Not on file documented as of this encounter Visit Diagnoses Not on filedocumented in this encounter Care Teams Cook Box Filler Relationship Specialty Start Date End Date Jeff Guzman PA [address] [place] [address] PCP - General Family Medicine 06/21/22 02/17/23 Angeles Hernandez MD [address] [place], [place] [address] Referring Physician Gynecology 07/21/21 documented as of this encounter
--- OUTSIDE RECORDS SUMMARY | 2024-09-03 20:00 | XMS_ITS | Encounter Summary ---
Author Organization [facility] Address [address] [place] [address] Care Team Providers Care Program Evaluator Name Role Phone Angeles Hernandez MD Unavailable [phone] Ramonita Crawford NP Primary Care Provider [phone] Reason for Visit * Auth/Cert (Routine) Specialty Diagnoses / Procedures Referred By Sharlene t Referred To Contact Diagnoses Age-related nuclear cataract of right eye Age-related nuclear cataract of right eye [H25.11] Procedures KS XCAPSL CTRC RMVL INSJ IO LENS PROSTH W/O ECP KS XCAPSL CTRC RMVL INSJ IO LENS PROSTH CPLX WO ECP RIGHT EXTRACTION CATARACT - PHACOEMULSIFICATION AND LENS IMPLANT Referral ID Status Reason Start Date Expiration Date Visits Re quested Visits Authorized [id number] 1 1 Encounter Details Date Type Department Care Team (Latest Contact Info) Description 06/21/2023 9:55 AM CDT - 06/21/2023 10:25 AM CDT Surgery [facility] Operating Room [address] [place] [address] Mary Ann Webster MD [address] [place] [address] RIGHT EXTRACTION CATARACT - PHACOEMULSIFICATION AND LENS IMPLANT Surgery Details Date/Time Status Location OR Service Patient Class Case Class Case Type Trauma Case? 06/21/2023 9:55 AM Posted [facility] OR 1 Ophthalmology Outpatient Elective [...] often do you attend chur ch or denominational services? Never 05/10/2023 Do you belong to any clubs o r organizations such as hindu groups, unions, fraternal or athletic groups, or [...] place to sleep or slept in a halfway (including now)? No 05/10/2023 Personal Safety Answer Date Recorded Have you ever been in or are you currently in a harmful physical or emotional relationship or is someone making you feel afraid or unsafe? 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 Thank you for entrusting us with your [...] Preoperative Evaluation Record Evaluation type/location: TPAP from [facility] Planned procedure site: [facility] Date: 06/02/23 [...] Follows with cardiology, Dr Leon Mora at [facility], last seen 1 week ago. Reportsrecent echo in last 2-3 mo, pt reports EF 65% 03/2022 +Takotsubo cardiomyopathy with life vest x 3 mo, stopped wearing 05/2023. 05/2022 Dr Schneider: 1. Recovered Nonischemic cardiomyopathy with severe LV systolic dysfunction. LVEDP 42 mm by cardiaccatheterization on 03/03/2022.Status post cardiac catheterization for abnormal cardiac enzymes on 03/03/2022 at [facility] shows no evidence of coronary artery disease. Her echo today showed LVEF 63%. 2. History of COVID-19 infection February of 2022 with COVID pneumonia. History of Present Illness: Chrissy Kilgore is a pleasant 51 y.o. female who presents to [facility] with shortness of breath. She had [...] provided by telephone and electronically sent via Mersimo. Patient verbalized understanding of preoperative plan. Blood [...] History: Diagnosis Date Arthritis Asthma Brain concussion [id number] Cardiomyopathy (HCC) Cataract Cholelithiasis Depression [id number] Epiretinal membrane (ERM), bilateral GERD (gastroesophageal reflux [...] right eye. SURGEON: Mary Ann Webster MD STORE PLANNER: none ANESTHESIA: MAC with Local INDICATIONS FOR [...] Implant Name Type Inv. Item Serial No. Medical Records Auditor Lot No. LRB No. Used Action [employer] Acrysof Iq Natural Stableforce Acrysert 6mm 13mm 1 Piece Foldable [id number]- [id number] - [id number] [employer] Acrysof Iq Natural Stable[employer] Acrysert 6mm 13mm 1 Piece Foldable [id number] [employer] Right 1 Implanted SPECIMENS REMOVED:none ESTIMATED BLOOD LOSS:minimal INTRAOPERATIVE FLUIDS:Per anesthesia SPONGE/INSTRUMENT/NEEDLE COUNTS:correct COMPLICATIONS: None CONDITION ON DISCHARGE FROM OPERATING ROOM:stable * Pre-Procedure Instructions - Yajaira Elliott NP - 06/02/2023 12:18 PM CDT [facility]operative [facility] Planning CPAP Clinic Location[facility] The night before your surgery: * Do [...] remove nail coverings, artificial nails and nail uzbek prior to the day of surgery. You should leave your valuables and any jewelry at home. No metal or piercings are allowed in the operating room. You should bring your insurance card, a photo ID (example: Poultry Hanger's License) and a method of payment for [...] Chart. If you are having surgery at [facility], please arrive on the day of surgery [...] Pathway to Excellent Care by the followinglink: [email or web address] How To Prepare Your Skin For Surgery [...] Remove nail coverings, artificial nails and nail uzbek. Place clean linens on your bed the [...] questions, please call the CPAP Staff at [phone], Tuesday-Tuesday 8am-4:30pm. All patients should read the below section: COVID 19 Updates & Visitor Policy: Please access [email or web address] for the most updated information. Information on [facility] or [facility] [place] ([facility]): Please view [email or web address] (Patient and Visitor Information) for parking/directions and more. For MyChart information, to activate account or password recovery, please go to [email or web address] or call [phone] (toll-free: [phone]), Tue- Tuesday 8am-5pm. Information for Suicide Prevention: National Suicide Prevention Lifeline (6-251- 475-MSYU (7628)). Surgery Times: For patients having surgery @ [facility] or [facility] ([facility]), if your surgeon's office has not notified you of your surgery time by NOON THE BUSINESS DAY BEFORE your surgery, please call [phone] and ask for your surgeon's office Dr Webster. * Perioperative Nursing Note - Aleja Lentz RN - 06/02/2023 9:29 AM CDT Center for Preoperative Assessment and Planning Perioperative Nursing Note Telephone Preoperative Evaluation ([facility]) - TELEPHONE ONLY, NO PHYSICAL EXAM Date: [...] Directive: Patient does not have advance directive Communication/Pulp Grinder And Blender Needs Communication Needs: Glasses Assistive Devices/DME: Eyeglasses, Dentures lower, Dentures upper Discharge Planning Type of Residence: Private residence Living Arrangements: Spouse/significant other Support Systems: Spouse/significant other Assistance Needed: her partner Cesia will be caring for her after procedure Patient expects to be discharged to:: Private residence SPREADER BOX OPERATOR NO documented in this encounter Plan of [...] 06/21/2023 documented in this encounter Care Teams Program Evaluator Relationship Specialty Start Date End Date Ramonita Crawford NP [address] [address] PCP - General Family Medicine 02/18/23 Angeles Hernandez MD [address] [address] Referring Physician Gynecology 07/21/21 documented as of this encounter
--- OUTSIDE RECORDS SUMMARY | 2024-09-03 20:00 | XMS_ITS | Encounter Summary ---
Author Organization [facility] Healthcare Address [address] [place] [address] Care Team Providers Care Machine Presser Name Role Phone Angeles Hernandez MD Unavailable [phone] Ramonita Crawford NP Primary Care Provider [phone] Reason for Referral * Diagnostic Imaging (Routine) - Closed Specialty Diagnoses / Procedures Referred By Contac t Referred To Contact Diagnoses Screening mammogram, encounter for Procedures Screening Mammogram Bilateral W Darren Screening Mammogram, [address] [address] Referral ID Status Reason Start Date Expiration Date Visits Re quested Visits Authorized [id number] Closed 05/05/2023 06/03/2024 1 1 * Diagnostic Imaging (Routine) - Closed Specialty Diagnoses / Procedures Referred By Contac t Referred To Contact Diagnoses Screening mammogram, encounter for Procedures Screening Mammogram Bilateral W Darren Screening Mammogram, [address] [address] Referral ID Status Reason Start Date Expiration Date Visits Re quested Visits Authorized [id number] Closed 05/05/2023 06/03/2024 1 1 Reason for Visit * Diagnostic Imaging (Routine) - Closed Specialty Diagnoses / Procedures Referred By Contac t Referred To Contact Diagnoses Screening mammogram, encounter for Procedures Screening Mammogram Bilateral W Darren Screening Mammogram, [address] [address] Referral ID Status Reason Start Date Expiration Date Visits Re quested Visits Authorized [id number] Closed 05/05/2023 06/03/2024 1 1 Encounter Details Date Type Department Care Team (Latest Contact Info) Description 06/09/2023 3:35 PM CDT - 06/09/2023 11:59 PM CDT Hospital Encounter [facility] [address] [place] [address] Screening mammogram, encounter for Discharge Disposition: Discharge [...] often do you attend chur ch or mu-ism services? Never 05/10/2023 Do you belong to [...] place to sleep or slept in a group home (including now)? 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
--- OUTSIDE RECORDS SUMMARY | 2024-09-03 20:00 | XMS_ITS | Encounter Summary ---
Author Organization [facility] Address [address] [place] [address] Phone Care Team Providers Care Edger Hand Name Role Phone Angeles Hernandez MD Unavailable [phone] Reason for Visit * Consultation (Routine) - Closed Specialty Diagnoses / Procedures Referred By Contac t Referred To Contact Cardiology Diagnoses Hypercholesteremia Essential hypertension Vasquez Schneider MD [address] [facility] [address] [place] [address] Phone: tel: fax: [facility] (All Locations) Referral ID Status Reason Start Date Expiration Date V isits Requested Visits Authorized [id number] Closed Specialty Services Required 05/28/2022 06/27/2023 12 12 Encounter Details Date Type Department Care Team (Late st Contact Info) Description 06/01/2022 3:30 PM CDT Office Visit [facility] Cardiology [address] [facility] [address] [place] [address] Vasquez Schneider MD [address] 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 Her echo today showed LVEF 63%. 2. History of COVID-19 infection February of 2022 with COVID pneumonia. History of Present Illness: Chrissy Kilgore is a pleasant 51 y.o. female who presents to [facility] with shortness of breath. She had [...] History: Diagnosis Date Arthritis Asthma Brain concussion [id number] Depression [id number] Epiretinal membrane (ERM), bilateral GERD (gastroesophageal reflux [...] No history of alcohol use drug use [id number] medication or herbal medication. No history of smoking. Testng: Cath 03/02/2022 ; No CAD noted LVEDP 42 mm of Hg. Echo 71/40129 ; LVEF 20-25%. PASP 49 mm of [...] cardiac questions . Vasquez Schneider M.D., Joann.Noah. dovetailer [facility] [employer] [facility]. [place] This note contains information and findings [...] about verbage above please contact me at [phone]. documented in this encounter Plan of Treatment [...] 06/01/2022 documented in this encounter Care Teams Edger Hand Relationship Specialty Start Date End Date Angeles Hernandez MD [address] [place] [address] Referring Physician Gynecology 07/21/21 documented as of this encounter
--- OUTSIDE RECORDS SUMMARY | 2024-09-03 20:00 | XMS_ITS | Encounter Summary ---
Author Organization [facility] Address [address] [place] [address] Phone Care Team Providers Care Teaseler Name Role Phone Angeles Hernandez MD Unavailable [phone] Ramonita Crawford NP Primary Care Provider [phone] Reason for Visit * Reason Comments Cataract Encounter Details Date Type Department Care Team (Late st Contact Info) Description 05/20/2023 9:15 AM CDT Office Visit [facility] Ophthalmology [address] [facility] [place] [address] Mary Ann Webster MD [address] [place] [address] Age-related nuclear cataract of right [...] How often do you attend chur or latter day services? Never 05/10/2023 Do you belong to any clubs o r organizations such as mu-ism groups, unions, fraternal or athletic groups, or [...] place to sleep or slept in a fpc (including now)? 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
--- OUTSIDE RECORDS SUMMARY | 2024-09-03 20:00 | XMS_ITS | Encounter Summary ---
Author Organization [facility] Address [address] [facility] [address] [place] [address] Care Team Providers Care Supervisor Finishing Name Role Phone Angeles Hernandez MD Unavailable [phone] Jeff Guzman Primary Care Provider [phone] Reason for Visit * Reason Comments Pain Wound in belly-stap Encounter Details Date Type Department Care Team (Late st Contact Info) Description 09/06/2022 8:45 AM ASSEMBLY MACHINE OPERATOR Office Visit [facility] Family Medicine at [address] [place] [address] Jeff Guzman PA [address] [place] [address] [address] [place] [address] Essential hypertension (Primary Dx); Arthralgia, [...] on file 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 ASSEMBLY MACHINE OPERATOR Gender Identity Female 03/27/2020 5:01 PM CDT Sexual Orientation Lesbian 03/27/2020 5: 01 PM CDT documented as of this encounter Last Filed Vital Signs Vital Sign Reading Time Taken Comments Blood Pressure 124/88 09/06/2022 8:41 AM ASSEMBLY MACHINE OPERATOR Pulse 55 09/06/2022 8:41 AM ASSEMBLY MACHINE OPERATOR Temperature 36.4 ??C (97.5 ??F) 09/06/2022 8:41 AM CS T Respiratory Rate 18 09/06/2022 8:41 AM ASSEMBLY MACHINE OPERATOR Oxygen Saturation 100% 09/06/2022 8:41 AM ASSEMBLY MACHINE OPERATOR Inhaled Oxygen Concentration - - Weight 82.4 kg (181 lb 9.6 oz) 09/06/2022 8:41 A M ASSEMBLY MACHINE OPERATOR Height 165.1 cm (5' 5 ) 09/06/2022 8:41 AM ASSEMBLY MACHINE OPERATOR Body Mass Index 30.22 09/06/2022 8:41 AM ASSEMBLY MACHINE OPERATOR documented in this encounter Ordered [...] sprays into each nostril daily CANDE Du MBLY MACHINE OPERATOR documented in this encounter Miscellaneous Notes * Assessment & Plan Note - Jeff Guzman PA - 09/06/2022 9:29 AM CSTAssociated Problem(s): XENA (generalized anxiety disorder) Chronic stable and well Controlled Continue ativan refill today MBLY MACHINE OPERATOR * Assessment & Plan Note - Jeff Guzman PA - 09/06/2022 9:28 AM CSTAssociated Problem(s): Essential hypertension Chronic stable and at goal Continue with metorprolol MBLY MACHINE OPERATOR documented in this encounter Plan of Treatment Not on file documented as of this encounter Results * CBC with auto differential (09/06/2022 9:58 AM ASSEMBLY MACHINE OPERATOR) Pathologist [facility] WBC 4.9 3.8 - 9.9 K/cumm [facility] Hgb 14.0 11.9 - 15.5 g/dL [facility] Hct 41.6 35.6 - 45.5 % [facility] Plt 341 150 - 400 K/cumm [facility] MPV 9.9 9.1 - 12.3 fL [facility] RBC 4.75 3.90 - 5.20 M/cumm [facility] MCV 87.6 81.3 - 96.4 fL [facility] MCH 29.5 27.1 - 33.3 pg [facility] MCHC 33.7 32.3 - 35.7 g/dL [facility] RDW CV 12.4 11.1 - 14.9 % [facility] RDW SD 39.4 35.7 - 48.1 fL [facility] NRBC abs 0.00 0.00 - 0.01 K/cumm [facility] Blood 09/06/2022 9:58 AM ASSEMBLY MACHINE OPERATOR 09/06/2022 12:28 PM ASSEMBLY MACHINE OPERATOR us Jeff CASTELLON LAB BLOOD ORDERABLES Final Resu lt [facility] [address] [facility] Department [place] [address] * (ABNORMAL) Comprehensive metabolic panel (09/06/2022 9:58 AM ASSEMBLY MACHINE OPERATOR) [facility] Sodium 139 135 - 145 mmol/L [facility] Potassium, pl 4.3 3.3 - 4.9 mmol/L [facility] Chloride 102 97 - 110 mmol/L [facility] CO2 29 22 - 32 mmol/L [facility] Anion gap 8 2 - 15 mmol/L [facility] BUN 16 8 - 25 mg/dL [facility] Creatinine 0.60 0.60 - 1.10 mg/dL [facility] Glucose 104 70 - 199 mg/dL [facility] Comment: Interpretive Data Fasting glucose >/= 126 [...] 2022. Calcium 9.8 8.5 - 10.3 mg/dL [facility] Bilirubin, total 0.6 0.1 - 1.2 mg/dL [facility] Protein, pl 7.6 6.5 - 8.5 g/dL [facility] Albumin 4.7 3.5 - 5.0 g/dL [facility] Alk phos 157(H) 40 - 130 Units/L [facility] ALT 54(H) 7 - 45 Units/L [facility] AST 91(H) 10 - 45 Units/L [facility] Blood 09/06/2022 9:58 AM ASSEMBLY MACHINE OPERATOR 09/06/2022 12:28 PM ASSEMBLY MACHINE OPERATOR us Jeff CASTELLON LAB BLOOD ORDERABLES Final Resu lt Performing Organization Address [facility] Co de Phone Number [facility] [address] [facility] Department [place] [address] * TSH (09/06/2022 9:58 AM ASSEMBLY MACHINE OPERATOR) Pathologist [facility] Thyroid Stimulating Hormone 1.86 0.30 - 4.20 mcIUnit/mL [facility] Blood 09/06/2022 9:58 AM ASSEMBLY MACHINE OPERATOR 09/06/2022 12:28 PM ASSEMBLY MACHINE OPERATOR Jeff CASTELLON LAB BLOOD ORDERABLES Final Resu lt Performing Organization Address [facility]/ZIP Co de Phone Number [address] [place] [address] * CRP (acute phase) (09/06/2022 9:58 AM ASSEMBLY MACHINE OPERATOR) Pathologist [facility] CRP 1.1 <=10.0 mg/L [facility] Blood 09/06/2022 9:58 AM ASSEMBLY MACHINE OPERATOR 09/06/2022 12:28 PM ASSEMBLY MACHINE OPERATOR us Jeff CASTELLON LAB BLOOD ORDERABLES Final Resu lt Performing Organization Address [facility] Co de Phone Number [address] [place] [address] * Erythrocyte sedimentation rate (09/06/2022 9:58 AM ASSEMBLY MACHINE OPERATOR) Pathologist [facility] Erythrocyte sedimentation rate 23 1 - 30 mm/hr [facility] Blood 09/06/2022 9:58 AM ASSEMBLY MACHINE OPERATOR 09/06/2022 12:28 PM ASSEMBLY MACHINE OPERATOR us Jeff CASTELLON LAB BLOOD ORDERABLES Final Resu lt Performing Organization Address [facility]/ZIP Co de Phone Number [address] [place] [address] * Rheumatoid factor (09/06/2022 9:58 AM ASSEMBLY MACHINE OPERATOR) Pathologist [facility] Rheumatoid factor, quant 11.0 <=15.0 IUnits/mL [facility] Blood 09/06/2022 9:58 AM ASSEMBLY MACHINE OPERATOR 09/06/2022 12:28 PM ASSEMBLY MACHINE OPERATOR us Jeff CASTELLON LAB BLOOD ORDERABLES Final Resu lt Performing Organization Address City/[facility]/ZIP Co de Phone Number [address] [place] [address] * C4 complement (09/06/2022 9:58 AM ASSEMBLY MACHINE OPERATOR) Pathologist [facility] Complement C4 34.4 10.0 - 40.0 mg/dL [facility] Comment:Testing performed by : [facility], [address] [place] [address]., [id number] Blood 09/06/2022 9:58 AM ASSEMBLY MACHINE OPERATOR 09/06/2022 3:47 PM ASSEMBLY MACHINE OPERATOR us Jeff CASTELLON LAB BLOOD ORDERABLES Final Resu lt Performing Organization Address [facility] de Phone Number [facility] [place] [address] * C3 complement (09/06/2022 9:58 AM ASSEMBLY MACHINE OPERATOR) Complement C3 176.0 90.0 - 180.0 mg/dL [facility] Comment:Testing performed by : [facility], [address] [place] [address], [id number] Blood 09/06/2022 9:58 AM ASSEMBLY MACHINE OPERATOR 09/06/2022 3:47 PM ASSEMBLY MACHINE OPERATOR us Jeff CASTELLON LAB BLOOD ORDERABLES Final Resu lt Performing Organization Address [facility] de Phone Number [address] [place] [address] * Anti-double stranded DNA antibodies (09/06/2022 9:58 AM ASSEMBLY MACHINE OPERATOR) dsDNA Ab 1.0 <=4.0 IUnits/mL [facility] Comment: Interpretive Data Negative: < or = 4 IUnits/mL Indeterminate: 5 - 9 IUnits/mL Positive: > or = 10 IUnits/mL Current interpretive data was last revised on 2017. Testing performed by: [facility], [address] [place] [address]., [id number] Blood 09/06/2022 9:58 AM ASSEMBLY MACHINE OPERATOR 09/06/2022 3:47 PM ASSEMBLY MACHINE OPERATOR us Jeff CASTELLON LAB BLOOD ORDERABLES Final Resu lt Performing Organization Address [facility] Co de Phone Number [facility] [place] [address] * LIZZY qualitative with reflex to LIZZY Quantitative (09/06/2022 9:58 AM ASSEMBLY MACHINE OPERATOR) LIZZY Negative [facility] Comment: Interpretive [...] last revised on 2020. Testing performed by: [facility], [address] [place] [address]., [address] Blood 09/06/2022 9:58 AM ASSEMBLY MACHINE OPERATOR 09/06/2022 3:47 PM ASSEMBLY MACHINE OPERATOR Jeff CASTELLON LAB BLOOD ORDERABLES Final Resu lt Performing Organization Address [facility] Co de Phone Number [place] [phone] [facility] [place] [address] * VAMSHI Antibody Evaluation with Reflex (09/06/2022 9:58 AM ASSEMBLY MACHINE OPERATOR) VAMSHI ab Negative Negative [facility] Comment: Interpretive Data Positive Screens will be reflexed to specific testing for the following antigens: Lindsay-1 Ab, AUTO HEATER MECHANIC Ab, Scl-70 Ab, Elliott Ab, SS-A/Ro Ab, and SS-B/La Ab. Further testing for dsDNA, Centromere, or Ribosomal P antibodies is suggested in patient with a positive screen and negative specific antibodies. Current interpretive data was last revised on 16. Testing performed by: [facility], [address] [place] [address]., [id number] Blood 09/06/2022 9:58 AM ASSEMBLY MACHINE OPERATOR 09/06/2022 3:47 PM ASSEMBLY MACHINE OPERATOR us Jeff CASTELLON LAB BLOOD ORDERABLES Final Resu lt [facility] [address] [facility] Department [place] [address] documented in this encounter Visit Diagnoses Diagnosis [...] documented as of this encounter Care Teams Supervisor Finishing Relationship Specialty Start Date End Date Jeff Guzman PA [address] [place] [address] PCP - General Family Medicine 06/21/22 02/17/23 Angeles Hernandez MD [address] [place] [address] Referring Physician Gynecology 07/21/21 documented as of this encounter
--- OUTSIDE RECORDS SUMMARY | 2024-09-03 20:00 | XMS_ITS | Encounter Summary ---
Author Organization [facility] Address [address] [place] [address] Phone Care Team Providers Care Sourcing Analyst Name Role Phone Angeles Hernandez MD Unavailable Ramonita Crawford NP Primary Care Provider [phone] Reason for Visit * Diagnostic Imaging (Routine) - Closed Specialty Diagnoses / Procedures Referred By Sharlene t Referred To Contact Diagnoses Vitreous syneresis of both eyes Procedures IOL Biometry - OU - Both Eyes Mary Ann Webster MD [address] [place] [address] Phone: tel: fax: [facility] (All Locations) Referral ID Status Reason Start Date Expiration Date Visits Re quested Visits Authorized [id number] Closed 03/16/2023 04/14/2024 1 1 Encounter Details Date Type Department Care Team (Late st Contact Info) Description 05/20/2023 8:50 AM CDT Imaging Exam [facility] Ophthalmology [facility] 6th [place] [id number] Vitreous syneresis of both eyes Social History [...] any clubs o r organizations such as faith groups, unions, fraternal or athletic groups, or [...] in a fci (including now)? No 05/10/2023 Comments No Sex and Gender Information Value Date Recorded Sex Assigned at Not on file 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 MEAT BLENDER Gender Identity Female 03/27/2020 5:01 PM [...] eyes documented in this encounter Care Teams Sourcing Analyst Relationship Specialty Start Date End Date Ramonita Crawford NP [address] [address] PCP - General Family Medicine 02/18/23 Angeles Hernandez MD [address] [place] [address] Referring Physician Gynecology 07/21/21 documented as of this encounter
--- OUTSIDE RECORDS SUMMARY | 2024-09-03 20:00 | XMS_ITS | Encounter Summary ---
Author Organization [facility] Address [address] [place] [address] Phone Care Team Providers Care Ruby On Rails Engineer Name Role Phone Angeles Hernandez MD Unavailable [phone] Ramonita Crawford NP Primary Care Provider [phone] Reason for Visit * Reason Comments Post-op - Cataract Encounter Details Date Type Department Care Team (Late st Contact Info) Description 06/22/2023 9:00 AM CDT Office Visit [facility] Ophthalmology [address] [facility] 2nd Floor, [address] [place] [address] Mary Ann Webster MD [address] [place] [address] Postop check (Primary Dx) Social [...] often do you attend chur ch or baptism services? Never 05/10/2023 Do you belong to any clubs o r organizations such as jew groups, unions, fraternal or athletic groups, or [...] on file 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 JD EDWARDS CONSULTANT Gender Identity Female 03/27/2020 5:01 PM [...] good position Anterior Vitreous syneresis Care Teams Ruby On Rails Engineer Relationship Specialty Start Date End Date Ramonita Crawford NP [address] [address] PCP - General Family Medicine 02/18/23 Angeles Hernandez MD [address] [facility] [address] [place] [address] Referring Physician Gynecology 07/21/21 documented as of this encounter
--- OUTSIDE RECORDS SUMMARY | 2024-09-03 20:00 | XMS_ITS | Encounter Summary ---
Author Organization [facility] Address [address] [facility] [address] [place] [address] Care Team Providers Care Rubber Goods Repairer Name Role Phone Angeles Hernandez MD Unavailable [phone] Reason for Visit * Reason Comments Pain Gen arthritis pain a nd stiffness Encounter Details Date Type Department Care Team (Latest Contact Info) Description 06/03/2022 10:00 AM CDT Office Visit [facility] Family Medicine at [address] [place] [address] Brijesh Lynch MD [address] [place] [address] [address] [place] [address] Mild intermittent asthma without complication (Primary Dx); [...] on file 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 PENCILLER Gender Identity Female 03/27/2020 5:01 PM CDT [...] Progress Notes * Brijesh Lynch MD - 06/03/2022 10:00 AM CDT Images [...] knee documented in this encounter Care Teams Rubber Goods Repairer Relationship Specialty Start Date End Date Angeles Hernandez MD [address] [address] Referring Physician Gynecology 07/21/21 documented as of this encounter
--- OUTSIDE RECORDS SUMMARY | 2024-09-03 20:00 | XMS_ITS | Encounter Summary ---
Author Organization [facility] Healthcare Address [address] [place] [address] Care Team Providers Care Billing Administrator Name Role Phone Angeles Hernandez MD Unavailable [phone] Ramonita Crawford NP Primary Care Provider [phone] Reason for Visit * Auth/Cert (Routine) Specialty Diagnoses / Procedures Referred By Contac t Referred To Contact Diagnoses Age-related nuclear cataract of right eye Age-related nuclear cataract of right eye [H25.11] Procedures RI XCAPSL CTRC RMVL INSJ IO LENS PROSTH W/O ECP RI XCAPSL CTRC RMVL INSJ IO LENS PROSTH CPLX WO ECP RIGHT EXTRACTION CATARACT - PHACOEMULSIFICATION AND LENS IMPLANT Referral ID Status Reason Start Date Expiration Date Visits Re quested Visits Authorized [id number] 1 1 Encounter Details Date Type Department Care Team (Late st Contact Info) Description 06/21/2023 9:39 AM CDT Anesthesia Event [facility] Operating Room [address] [place] [id number] Jarrod Hopkins MD [facility] [id number] [place] [address] Yajaira Elliott NP [address] [facility] [id number] [place] [address] Anesthesia Record Procedure Summary Procedure Name Responsible [...] ght; Eye; 07/24/24 (Retired LDA, Removed/Completed by SpinNote with LDA Utility); [id number] (Retired LDA, Removed/Completed by SpinNote with LDA Utility) 06/21/23 0957 by Zeenat [...] often do you attend chur ch or christian services? 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 Planned procedure site: [facility] Date: 06/02/23 NOTE: This note represents [...] arrhythmia - bradycardia. Pertinent negatives: CAD ; ND ; CABG ; atrial fibrillation; pacemaker/ICD; DVT/PE; negative for CHF; drug-eluting stent(s) and bare metal stent(s) Comments: Follows with cardiology, Dr Leon Mora at [facility], last seen 1 week ago. Reportsrecent echo in last 2-3 mo, pt reports EF 65% 03/2022 +Takotsubo cardiomyopathy with life vest x 3 mo, stopped wearing 05/2023. 05/2022 Dr Schneider: 1. Recovered Nonischemic cardiomyopathy with severe LV systolic dysfunction. LVEDP 42 mm by cardiaccatheterization on 03/03/2022.Status post cardiac catheterization for abnormal cardiac enzymes on 03/03/2022 at [facility] shows no evidence of coronary artery disease. Her echo today showed LVEF 63%. 2. History of COVID-19 infection February of 2022 with COVID pneumonia. History of Present Illness: Chrissy Kilgore is a pleasant 51 y.o. female who presents to [facility] with shortness of breath. She had [...] provided by telephone and electronically sent via [employer]. Patient verbalized understanding of preoperative plan. Blood [...] History: Diagnosis Date Arthritis Asthma Brain concussion [id number] Cardiomyopathy (HCC) Cataract Cholelithiasis Depression [id number] Epiretinal membrane (ERM), bilateral GERD (gastroesophageal reflux [...] Medication protocol when under care of a SWEATER DESIGNER Planned anesthesia: MAC Postoperative Plan: No plan [...] mg documented in this encounter Care Teams Billing Administrator Relationship Specialty Start Date End Date Ramonita Crawford NP [address] [address] PCP - General Family Medicine 02/18/23 Angeles Hernandez MD [address] [address] Referring Physician Gynecology 07/21/21 documented as of this encounter
--- OUTSIDE RECORDS SUMMARY | 2024-09-03 20:00 | XMS_ITS | Encounter Summary ---
Author Organization [facility] Healthcare Address [address] [place] [address] Care Team Providers Care Building Dismantler Name Role Phone Angeles Hernandez MD Unavailable [phone] Ramonita Crawford NP Primary Care Provider Reason for Visit * Auth/Cert (Routine) Specialty Diagnoses / Procedures Referred By Contac t Referred To Contact Diagnoses Right upper quadrant pain Nausea Abnormal findings on dx imaging of prt digestive tract Right upper quadrant pain [R10.11] Nausea [R11.0] Abnormal findings on dx imaging of prt digestive tract [R93.3] Procedures ERCP; Admit to [facility] Referral ID Status Reason Start Date Expiration Date Visits Re quested Visits Authorized [id number] 1 1 Encounter Details Date Type Department Care Team (Late st Contact Info) Description 05/11/2023 2:22 PM CDT Anesthesia Event [facility] [address] [place] [id number] Bob Saenz MD [address] [place] [address] Dominic Piper MD [facility] [place] [address] Anesthesia Record Procedure Summary Procedure Name Responsible [...] any clubs o r organizations such as muslim groups, unions, fraternal or athletic groups, or [...] in a detention (including now)? 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 Gender Identity Female 03/27/2020 5:01 PM CDT Sexual Orientation Lesbian 03/27/2020 5: 01 PM CDT documented as of this encounter OR Notes * Anesthesia Postprocedure Evaluation - Bob Saenz MD - 05/11/2023 3:29 PM CDT Patient: Chrissy Kilgore Procedure Summary Date: 05/11/23 Room / Location: [facility] GI 09 / [facility] ENDOSCOPY Anesthesia Start: 1422 Anesthesia Stop: 1441 [...] - patient participated Level of consciousness: arouses detention attendant and follows simple commands Pain management: adequate [...] History: Diagnosis Date Arthritis Asthma Brain concussion [id number] Cardiomyopathy (HCC) Cataract Cholelithiasis Depression [id number] Epiretinal membrane (ERM), bilateral GERD (gastroesophageal reflux [...] (SINGULAIR) 10 mg tablet -- 08/27/22 -- oJse Luis Barclay MD Take 1 tablet (10 [...] Medication protocol when under care of a PROFESSOR OF VIOLIN Planned anesthesia: General TIVA Induction: Induction: intravenous. [...] mg documented in this encounter Care Teams Building Dismantler Relationship Specialty Start Date End Date Ramonita Crawford NP [address] [address] PCP - General Family Medicine 02/18/23 Angeles Hernandez MD [address] [address] Referring Physician Gynecology 07/21/21 documented as of this encounter
--- OUTSIDE RECORDS SUMMARY | 2024-09-03 20:00 | XMS_ITS | Encounter Summary ---
Author Organization [facility] Address [address] [place] [address] Phone Care Team Providers Care Commutator V Ring Assembler Name Role Phone Angeles Hernandez MD Unavailable [phone] Jeff Guzman Primary Care Provider [phone] Reason for Visit * Reason Onset Date Comments peer to peer 06/03/2022 Encounter Details Date Type Department Care Team (Late st Contact Info) Description 06/03/2022 Telephone [facility] [address] [facility] 8[address] [place] [address] [place] [address] Vasquez Swanson MD [address] [facility] [address] [place] [address] peer to peer Social History [...] on file 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 TETRYL BLENDER OPERATOR Gender Identity Female 03/27/2020 5:01 PM CDT Sexual Orientation Lesbian 03/27/2020 5: 01 PM CDT documented as of this encounter Miscellaneous Notes * Telephone Encounter - Joceline Miller RN - 06/08/2022 10:28 AM CDT SKY LYNCH WOULD LIKE A CALL FROM DR. SWANSON REGARDING PT. NO DETAILS GIVEN Dr. Swanson had called Dr. Lynch a couple of times, there was no [...] on filedocumented in this encounter Care Teams Commutator V Ring Assembler Relationship Specialty Start Date End Date Jeff Guzman PA [address] [place] [address] PCP - General Family Medicine 06/21/22 02/17/23 Angeles Hernandez MD [address] [place] [address] Referring Physician Gynecology 07/21/21 documented as of this encounter
--- OUTSIDE RECORDS SUMMARY | 2024-09-03 20:00 | XMS_ITS | Encounter Summary ---
Author Organization [facility] Healthcare Address [address] [place] [address] Care Team Providers Care Airbrush Artist Name Role Phone Angeles Hernandez MD Unavailable Jeff Guzman Primary Care Provider [phone] Reason for Referral * Diagnostic Imaging (Routine) - Closed Specialty Diagnoses / Procedures Referred By Sharlene angulo Referred To Contact Diagnoses Breast pain, left Atypical lobular hyperplasia (ALH) of left breast Family history of breast cancer Procedures Diagnostic Mammogram Left W Darren Diagnostic Mammogram Bilateral W Darren Rachel Kay MD [address] [place] [address] Phone: tel: fax: [address] [phone] Referral ID Status Reason Start Date Expiration Date Visits Re quested Visits Authorized [id number] Closed 06/15/2022 07/15/2023 1 1 HANDLER Reason for Visit * Diagnostic Imaging (Routine) - Closed Specialty Diagnoses / Procedures Referred By Sharlene angulo Referred To Contact Diagnoses Breast pain, left Atypical lobular hyperplasia (ALH) of left breast Family history of breast cancer Procedures Diagnostic Mammogram Left W Darren Diagnostic Mammogram Bilateral W Darren Rachel Kay MD [address] [place] [address] Phone: tel: fax: [address] [phone] Referral ID Status Reason Start Date Expiration Date Visits Re quested Visits Authorized [id number] Closed 06/15/2022 07/15/2023 1 1 Encounter Details Date Type Department Care Team (Latest Contact Info) Description 07/23/2022 11:57 AM HOG HANDLER Hospital Encounter [facility] Imaging and Radiology [address] [place] [address] AtascocitaRachel rooney MD [address] [place] [address] 1, Jocy Bradshaw Md Breast [...] on file 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 HOG HANDLER Gender Identity Female 03/27/2020 5:01 PM CDT [...] Read Routine (OP Routine) 07/23/2022 12:30 PM HOG HANDLER Breast pain, left Atypical lobular hyperplasia (ALH) of left breast Family history of breast cancer documented in this encounter Results * Diagnostic Mammogram Left W Darren (07/23/2022 12:30 PM HOG HANDLER) Anatomical Region Laterality Modality Breast Left Mammography 07/23/2022 1:27 PM HOG HANDLER Impressions 07/23/2022 1:27 PM HOG HANDLER No evidence of malignancy in the left breast. OVERALL FINAL ASSESSMENT: BI-RADS Category 2: Benign. RECOMMENDATION: Annual screening mammography is recommended. Electronically signed by: Mary Blevins M.D. Narrative 07/23/2022 1:27 PM HOG HANDLER EXAMINATION: LEFT UNILATERAL DIGITAL DIAGNOSTIC MAMMOGRAM AND [...] breast documented in this encounter Care Teams Airbrush Artist Relationship Specialty Start Date End Date Jeff Guzman PA [address] [place] [address] PCP - General Family Medicine 06/21/22 02/17/23 Angeles Hernandez MD [address] [place] [address] Referring Physician Gynecology 07/21/21 documented as of this encounter
--- OUTSIDE RECORDS SUMMARY | 2024-09-03 20:00 | XMS_ITS | Encounter Summary ---
Author Organization [facility] Healthcare Address [address] [place] [address] Care Team Providers Care Vehicle And Equipment Cleaner Name Role Phone Angeles Hernandez MD Unavailable [phone] Ramonita Crawford NP Primary Care Provider [phone] Reason for Referral * Diagnostic Imaging (Routine) - Closed Specialty Diagnoses / Procedures Referred By Contac t Referred To Contact Diagnoses Urinary incontinence, unspecified type Procedures US Retroperitoneal Complete Lorene Celaya DPM [address] [place] [address] Phone: tel: fax: [address] [phone] Referral ID Status Reason Start Date Expiration Date Visits Re quested Visits Authorized [id number] Closed 07/04/2023 08/02/2024 1 1 TY ADVISOR Reason for Visit * Diagnostic Imaging (Routine) - Closed Specialty Diagnoses / Procedures Referred By Contac t Referred To Contact Diagnoses Urinary incontinence, unspecified type Procedures US Retroperitoneal Complete Lorene Celaya DPM [address] [place] [address] Phone: tel: fax: [address] [phone] Referral ID Status Reason Start Date Expiration Date Visits Re quested Visits Authorized [id number] Closed 07/04/2023 08/02/2024 1 1 Encounter Details Date Type Department Care Team (Latest Contact Info) Description 08/02/2023 1:14 PM BEAUTY ADVISOR - 08/02/2023 11:59 PM BEAUTY ADVISOR Hospital Encounter [facility] [address] [place] [address] Urinary incontinence, unspecified type Discharge Disposition: Discharge [...] often do you attend chur ch or roman catholic services? Never 05/10/2023 Do you belong to [...] in a alf (including now)? No 05/10/2023 Personal Safety Answer Date Recorded Have you ever been in or are you currently in a harmful physical or emotional relationship or is someone making you feel afraid or unsafe? 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 BEAUTY ADVISOR Gender Identity Female 03/27/2020 5:01 [...] Read Routine (OP Routine) 08/02/2023 1:57 PM BEAUTY ADVISOR Urinary incontinence, unspecified type documented in this encounter Results * US Retroperitoneal Complete (08/02/2023 1:57 PM BEAUTY ADVISOR) Anatomical Region Laterality Modality Abdomen N/A Ultrasound 08/03/2023 6:09 PM BEAUTY ADVISOR Narrative 08/03/2023 6:10 PM BEAUTY ADVISOR EXAM DESCRIPTION: US RETROPERITONEAL COMPLETE REASON FOR [...] PM T: ??08/03/2023 6:10 PM Report ID: [id number] Reading Location: ??[id number] Procedure Note Jose Rivera MD - 08/03/2023 [...] Jose Rivera M.D. KT: KT Report ID: [id number] Reading Location: [id number] us Lorene Celaya DPM IMG US PROCEDURES Final Res ult documented in this encounter Visit Diagnoses Diagnosis Urinary incontinence, unspecified type documented in this encounter Care Teams Vehicle And Equipment Cleaner Relationship Specialty Start Date End Date Ramonita Crawford NP [address] [address] PCP - General Family Medicine 02/18/23 Angeles Hernandez MD [address] [address] Referring Physician Gynecology 07/21/21 documented as of this encounter
--- OUTSIDE RECORDS SUMMARY | 2024-09-03 20:00 | XMS_ITS | Encounter Summary ---
Author Organization [facility] Healthcare Address [address] [place] [address] Care Team Providers Care Washing Machine Striper Name Role Phone Angeles Hernandez MD Unavailable [phone] Ramonita Crawford NP Primary Care Provider [phone] Reason for Referral * Diagnostic Imaging (Routine) - Closed Specialty Diagnoses / Procedures Referred By Sharlene angulo Referred To Contact Diagnoses Upper abdominal pain Procedures [place] ERCP Jordan Duff MD [address] [facility] [address] [place] [address] Phone: tel: fax: [facility] [address] [place] [address] Referral ID Status Reason Start Date Expiration Date Visits Re quested Visits Authorized [id number] Closed 05/09/2023 2024 1 1 Reason for [...] Expiration Date Visits Re quested Visits Authorized [id number] 1 1 Encounter Details Date Type Department Care Team (Latest Contact Info) Description 05/09/2023 7:00 AM CDT - 05/09/2023 11:59 PM CDT Hospital Encounter [facility] GI Center [address] [place] [address] Upper abdominal pain Discharge Disposition: [...] often do you attend chur ch or pentecostalism services? Never 05/10/2023 Do you belong to any clubs o r organizations such as confucianism groups, unions, fraternal or athletic groups, or [...] on file 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 HEEL NAIL RASPER Gender Identity Female 03/27/2020 5:01 PM CDT [...] [place] ERCP (05/09/2023 10:20 AM CDT) Narrative [facility] - 05/09/2023 10:21 AM CDT The images from this study are not interpreted by Radiology. ??Please refer to the physician's procedure / OR operative note. Jordan Duff MD IMG FLUOROSCOPY PROCEDURES Final Result [facility] documented in this encounter Visit Diagnoses [...] 05/09/2023 documented in this encounter Care Teams Washing Machine Striper Relationship Specialty Start Date End Date Ramonita Crawford NP [address] [address] PCP - General Family Medicine 02/18/23 Angeles Hernandez MD [address] [address] Referring Physician Gynecology 07/21/21 documented as of this encounter
--- OUTSIDE RECORDS SUMMARY | 2024-09-03 20:00 | XMS_ITS | Encounter Summary ---
Author Organization [facility] Address [address] [place] [address] Phone Care Team Providers Care Corporate Events Director Name Role Phone Angeles Hernandez MD Unavailable [phone] Ramonita Crawford NP Primary Care Provider [phone] Reason for Visit * Diagnostic Imaging (Routine) - Closed Specialty Diagnoses / Procedures Referred By Contac t Referred To Contact Diagnoses Vitreous syneresis of both eyes Procedures Miller Visual Field - OU - Both Eyes Mary Ann Webster MD [address] [address] Phone: tel: fax: [facility] (All Locations) Referral ID Status Reason Start Date Expiration Date Visits Re quested Visits Authorized [id number] Closed 03/16/2023 04/14/2024 1 1 Encounter Details Date Type Department Care Team (Late st Contact Info) Description 05/20/2023 8:00 AM CDT Imaging Exam [facility] Ophthalmology [facility] 6th Floor [address] Vitreous syneresis of both eyes Social History [...] often do you attend chur ch or hinduism services? Never 05/10/2023 Do you belong to any clubs o r organizations such as nondenominational groups, unions, fraternal or athletic groups, or [...] in a retirement (including now)? No 05/10/2023 Comments No Sex and Gender Information Value Date Recorded Sex Assigned at Not on file 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 COMPUTER TAPE LIBRARIAN Gender Identity Female 03/27/2020 5:01 PM [...] eyes documented in this encounter Care Teams Corporate Events Director Relationship Specialty Start Date End Date Ramonita Crawford NP [address] [address] PCP - General Family Medicine 02/18/23 Angeles Hernandez MD [address] [address] Referring Physician Gynecology 07/21/21 documented as of this encounter
--- OUTSIDE RECORDS SUMMARY | 2024-09-03 20:00 | XMS_ITS | Encounter Summary ---
Author Organization [facility] Address [address] [place] [address] Phone Care Team Providers Care Rn Primary Care Name Role Phone Angeles Hernandez MD Unavailable [phone] Ramonita Crawford NP Primary Care Provider [phone] Reason for Visit * Reason Comments Postop check Encounter Details Date Type Department Care Team (Late st Contact Info) Description 07/04/2023 9:45 AM CRIMINAL JUSTICE TEACHER Office Visit [facility] Ophthalmology [address] [facility] [place] [address] Mary Ann Webster MD [address] [place] [address] 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 Never 05/10/2023 Do you belong to [...] on file 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 CRIMINAL JUSTICE TEACHER Gender Identity Female 03/27/2020 5:01 PM [...] agree with the findings/plan of the Resident/Fellow INAL JUSTICE TEACHER documented in this encounter Miscellaneous Notes * Assessment & Plan Note - Mary Ann Webster MD - 07/04/2023 10:14 AM CRIMINAL JUSTICE TEACHER Associated Problem(s): Pseudophakia of right eye POW1 [...] or redness the patient is to call. INAL JUSTICE TEACHER documented in this encounter Plan of Treatment [...] good position Anterior Vitreous syneresis Care Teams Rn Primary Care Relationship Specialty Start Date End Date Ramonita Crawford NP [address] [address] PCP - General Family Medicine 02/18/23 Angeles Hernandez MD [address] [place] [address] Referring Physician Gynecology 07/21/21 documented as of this encounter
--- OUTSIDE RECORDS SUMMARY | 2024-09-03 20:00 | XMS_ITS | Encounter Summary ---
Author Organization [facility] Healthcare Address [address] [place] [id number] Care Team Providers Care [employer] Name Role Phone Angeles Hernandez MD Unavailable [phone] Jeff Guzman Primary Care Provider [phone] Encounter Details Date Type Department Care Team (Late st Contact Info) Description 09/06/2022 9:50 AM POND WORKER Lab [facility] Lab [facility] [place] [address] Arthralgia, unspecified joint; Myalgia; Essential hypertension; XENA [...] on file 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 POND WORKER Gender Identity Female 03/27/2020 5:01 PM CDT Sexual Orientation Lesbian 03/27/2020 5: 01 PM CDT documented as of this encounter Plan of Treatment Not on file documented as of this encounter Procedures Procedure Name Priority Date/Time Associated Diagnosis Comments LIZZY QUALITATIVE WITH REFLEX TO LIZZY QUANTITATIVE Routine 09/06/2022 9:58 AM POND WORKER Arthralgia, unspecified joint Myalgia ANTI-DOUBLE STRANDED DNA ANTIBODIES Routine 09/06/2022 9:58 AM POND WORKER Arthralgia, unspecified joint Myalgia EGFR Routine 09/06/2022 9:58 AM POND WORKER Arthralgia, unspecified joint Myalgia Essential hypertension DIFFERENTIAL AUTO Routine 09/06/2022 9:5 8 AM POND WORKER Arthralgia, unspecified joint Myalgia Essential hypertension C4 COMPLEMENT Routine 09/06/2022 9:58 AM POND WORKER Arthralgia, unspecified joint Myalgia VAMSHI ANTIBODY EVALUATION WITH REFLEX Routine 09/06/2022 9:58 AM POND WORKER Arthralgia, unspecified joint Myalgia CBC WITH AUTO DIFFERENTIAL Routine 09/06/2022 9:58 AM POND WORKER Arthralgia, unspecified joint Myalgia Essential hypertension ERYTHROCYTE SEDIMENTATION RATE Routine 09/06/2022 9:58 AM POND WORKER Arthralgia, unspecified joint Myalgia RHEUMATOID FACTOR Routine 09/06/2022 9:5 8 AM POND WORKER Arthralgia, unspecified joint Myalgia C3 COMPLEMENT Routine 09/06/2022 9:58 AM POND WORKER Arthralgia, unspecified joint Myalgia CRP (ACUTE PHASE) Routine 09/06/2022 9:5 8 AM POND WORKER Arthralgia, unspecified joint Myalgia TSH Routine 09/06/2022 9:58 AM POND WORKER Arthralgia, unspecified joint Myalgia Essential hypertension XENA (generalized anxiety disorder) COMPREHENSIVE METABOLIC PANEL Routine 09/06/2022 9:58 AM POND WORKER Arthralgia, unspecified joint Myalgia Essential hypertension documented in this encounter Results * eGFR (09/06/2022 9:58 AM POND WORKER) eGFR 108 mL/min/1. 73 m2 SHELBY VILLATORO [...] last reviewed 2021. Blood 09/06/2022 9:58 AM POND WORKER 09/06/2022 12:28 PM POND WORKER us Jeff CASTELLON LAB BLOOD ORDERABLES Final Resu lt SHELBY VILLATORO [address] [facility] [place] [address] * Differential, auto (09/06/2022 9:58 AM POND WORKER) Pathologist [facility] Neutrophil abs 2.8 1.7 - 6.5 K/cumm SHELBY VILLATORO Imm gran abs 0.0 0.0 - 0.1 K/cumm [facility] Lymphocyte abs 1.5 0.8 - 3.3 K/cumm [facility] Monocyte abs 0.4 0.2 - 0.8 K/cumm [facility] Eosinophil abs 0.2 0.0 - 0.5 K/cumm [facility] Basophil abs 0.0 0.0 - 0.1 K/cumm [facility] Neutrophil pct 56.7 % [facility] Comment: Interpretive Data Percent cell count reference ranges are not reported, since discordance with absolute values may lead to misinterpretation of CBC data. Current Interpretive Data was last revised on 2017. Imm gran pct 0.4 % [facility] Comment: Interpretive Data Percent cell count reference ranges are not reported, since discordance with absolute values may lead to misinterpretation of CBC data. Current Interpretive Data was last revised on 2017. Lymphocyte pct 29.8 % [facility] Comment: Interpretive Data Percent cell count reference ranges are not reported, since discordance with absolute values may lead to misinterpretation of CBC data. Current Interpretive Data was last revised on 2017. Monocyte pct 7.6 % [facility] Comment: Interpretive Data Percent cell count reference ranges are not reported, since discordance with absolute values may lead to misinterpretation of CBC data. Current Interpretive Data was last revised on 2017. Eosinophil pct 4.9 % [facility] Comment: Interpretive Data Percent cell count reference ranges are not reported, since discordance with absolute values may lead to misinterpretation of CBC data. Current Interpretive Data was last revised on 2017. Basophil pct 0.6 % [facility] Comment: Interpretive Data Percent cell count reference ranges are not reported, since discordance with absolute values may lead to misinterpretation of CBC data. Current Interpretive Data was last revised on 2017. Blood 09/06/2022 9:58 AM POND WORKER 09/06/2022 12:28 PM POND WORKER us Jeff CASTELLON LAB BLOOD ORDERABLES Final Resu lt [facility] [address] [facility] [place] [address] * (ABNORMAL) Comprehensive metabolic panel (09/06/2022 9:58 AM POND WORKER) Pathologist [facility] Sodium 139 135 - 145 mmol/L [facility] Potassium, pl 4.3 3.3 - 4.9 mmol/L [facility] Chloride 102 97 - 110 mmol/L [facility] CO2 29 22 - 32 mmol/L [facility] Anion gap 8 2 - 15 mmol/L [facility] BUN 16 8 - 25 mg/dL [facility] Creatinine 0.60 0.60 - 1.10 mg/dL [facility] Glucose 104 70 - 199 mg/dL [facility] Comment: Interpretive Data Fasting glucose [...] 2022. Calcium 9.8 8.5 - 10.3 mg/dL [facility] Bilirubin, total 0.6 0.1 - 1.2 mg/dL [facility] Protein, pl 7.6 6.5 - 8.5 g/dL [facility] Albumin 4.7 3.5 - 5.0 g/dL [facility] Alk phos 157(H) 40 - 130 Units/L [facility] ALT 54(H) 7 - 45 Units/L [facility] AST 91(H) 10 - 45 Units/L [facility] Blood 09/06/2022 9:58 AM POND WORKER 09/06/2022 12:28 PM POND WORKER us Jeff CASTELLON LAB BLOOD ORDERABLES Final Resu lt [facility] [address] [facility] [place] [address] * CBC with auto differential (09/06/2022 9:58 AM POND WORKER) WBC 4.9 3.8 - 9.9 K/cumm [facility] Hgb 14.0 11.9 - 15.5 g/dL [facility] Hct 41.6 35.6 - 45.5 % [facility] Plt 341 150 - 400 K/cumm [facility] MPV 9.9 9.1 - 12.3 fL [facility] RBC 4.75 3.90 - 5.20 M/cumm [facility] MCV 87.6 81.3 - 96.4 fL [facility] MCH 29.5 27.1 - 33.3 pg [facility] MCHC 33.7 32.3 - 35.7 g/dL [facility] RDW CV 12.4 11.1 - 14.9 % [facility] RDW SD 39.4 35.7 - 48.1 fL [facility] NRBC abs 0.00 0.00 - 0.01 K/cumm [facility] Blood 09/06/2022 9:58 AM POND WORKER 09/06/2022 12:28 PM POND WORKER us Jeff CASTELLON LAB BLOOD ORDERABLES Final Resu lt [facility] [address] [facility] [place] [address] * VAMSHI Antibody Evaluation with Reflex (09/06/2022 9:58 AM POND WORKER) VAMSHI ab Negative Negative [facility] Comment: Interpretive Data Positive Screens will be reflexed to specific testing for the following antigens: Lindsay-1 Ab, GEOTECHNICAL INTERN Ab, Scl-70 Ab, Elliott Ab, SS-A/Ro Ab, and SS-B/La Ab. Further testing for dsDNA, Centromere, or Ribosomal P antibodies is suggested in patient with a positive screen and negative specific antibodies. Current interpretive data was last revised on 16. Testing performed by: [facility], [address] [facility] [place] [address] Blood 09/06/2022 9:58 AM POND WORKER 09/06/2022 3:47 PM POND WORKER us Jeff CASTELLON LAB BLOOD ORDERABLES Final Resu lt Performing Organization Address [facility] de Phone Number [address] [address] * LIZZY qualitative with reflex to LIZZY Quantitative (09/06/2022 9:58 AM POND WORKER) LIZZY Negative [facility] Comment: Interpretive Data Normal range for LIZZY [...] last revised on 2020. Testing performed by: [facility], [address] [place] [address]., [id number] Blood 09/06/2022 9:58 AM POND WORKER 09/06/2022 3:47 PM POND WORKER Jeff CASTELLON LAB BLOOD ORDERABLES Final Resu lt Performing Organization Address [facility] de Phone Number [address] [place] [address] * Anti-double stranded DNA antibodies (09/06/2022 9:58 AM POND WORKER) dsDNA Ab 1.0 <=4.0 IUnits/mL [facility] Comment: Interpretive Data Negative: < or = 4 IUnits/mL Indeterminate: 5 - 9 IUnits/mL Positive: > or = 10 IUnits/mL Current interpretive data was last revised on 2017. Testing performed by: [facility], [address] [place] [address]., [id number] Blood 09/06/2022 9:58 AM POND WORKER 09/06/2022 3:47 PM POND WORKER us Jeffregis CASTELLON LAB BLOOD ORDERABLES Final Resu lt Performing Organization Address [facility] Co de Phone Number SHELBY [address] [address] * C3 complement (09/06/2022 9:58 AM POND WORKER) Complement C3 176.0 90.0 - 180.0 mg/dL [facility] Comment:Testing performed by : [facility], [address] [place] [address]., [id number] Blood 09/06/2022 9:58 AM POND WORKER 09/06/2022 3:47 PM POND WORKER us Jeff CASTELLON LAB BLOOD ORDERABLES Final Resu lt Performing Organization Address [facility] Co de Phone Number [address] [address] * C4 complement (09/06/2022 9:58 AM POND WORKER) Complement C4 34.4 10.0 - 40.0 mg/dL [facility] Comment:Testing performed by : [facility], [address] [place] [address]., [id number] Blood 09/06/2022 9:58 AM POND WORKER 09/06/2022 3:47 PM POND WORKER us Jeff CASTELLON LAB BLOOD ORDERABLES Final Resu lt Performing Organization Address [facility]/ZIP Co de Phone Number INDIR[address] [place] [address] * Rheumatoid factor (09/06/2022 9:58 AM POND WORKER) Rheumatoid factor, quant 11.0 <=15.0 IUnits/mL [facility] Blood 09/06/2022 9:58 AM POND WORKER 09/06/2022 12:28 PM POND WORKER us Jeff L. Thomas PA LAB BLOOD ORDERABLES Final Resu lt Performing Organization Address [facility]/ZIP Co de Phone Number [address] [address] * Erythrocyte sedimentation rate (09/06/2022 9:58 AM POND WORKER) Erythrocyte sedimentation rate 23 1 - 30 mm/hr [facility] Blood 09/06/2022 9:58 AM POND WORKER 09/06/2022 12:28 PM POND WORKER us Jeff CASTELLON LAB BLOOD ORDERABLES Final Resu lt Performing Organization Address [facility] Co de Phone Number [address] [place] [address] * CRP (acute phase) (09/06/2022 9:58 AM POND WORKER) CRP 1.1 <=10.0 mg/L [facility] Blood 09/06/2022 9:58 AM POND WORKER 09/06/2022 12:28 PM POND WORKER us Jeff CASTELLON LAB BLOOD ORDERABLES Final Resu lt Performing Organization Address [facility] Co de Phone Number IN[address] [place] [address] * TSH (09/06/2022 9:58 AM POND WORKER) Thyroid Stimulating Hormone 1.86 0.30 - 4.20 mcIUnit/mL [facility] Blood 09/06/2022 9:58 AM POND WORKER 09/06/2022 12:28 PM POND WORKER us Jeff CASTELLON LAB BLOOD ORDERABLES Final Resu lt Performing Organization Address [facility]/ZIP Co de Phone Number [address] [place] [address] documented in this encounter Visit Diagnoses Diagnosis Arthralgia, unspecified joint Myalgia Unspecified myalgia and myositis Essential hypertension Unspecified essential hypertension XENA (generalized anxiety disorder) Generalized anxiety disorder documented in this encounter Care Teams Security Chief [employer] Relationship Specialty Start Date End Date Jeff Guzman PA [address] [place] [address] PCP - General Family Medicine 06/21/22 02/17/23 Angeles Hernandez MD [address] [place], [place] [id number] Referring Physician Gynecology 07/21/21 documented as of this encounter
--- OUTSIDE RECORDS SUMMARY | 2024-09-03 20:00 | XMS_ITS | Encounter Summary ---
Author Organization [facility] Healthcare Address [address] [place] [address] Care Team Providers Care Outside Rigger Name Role Phone Angeles Hernandez MD Unavailable [phone] Ramonita Crawford NP Primary Care Provider [phone] Reason for Visit * Auth/Cert (Routine) Specialty Diagnoses / Procedures Referred By Contac t Referred To Contact Diagnoses Right upper quadrant pain Nausea Abnormal findings on dx imaging of prt digestive tract Right upper quadrant pain [R10.11] Nausea [R11.0] Abnormal findings on dx imaging of prt digestive tract [R93.3] Procedures ERCP; Admit to [facility] Referral ID Status Reason Start Date Expiration Date Visits Re quested Visits Authorized [id number] 1 1 Encounter Details Date Type Department Care Team (Latest Contact Info) Description 05/09/2023 8:45 AM CDT - 05/09/2023 9:30 AM CDT Surgery [facility] [address] [place] [id number] Jordan Duff MD [address] [facility] [address] [place] [address] ENDO ENDOSCOPIC RETROGRADE CHOLANGIOPANCREATOGRAPHY WITH STENT PLACEMENT Surgery Details Date/Time Status Location OR Service Patient Class Case Class Case Type Trauma Case? 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 Abdomen: Bowel sounds positive. Bridge Worker Apprentice: Alert, awake, oriented x3. There is no gross focal neurological deficit. Extremities: There is no pedal edema. PLAN So the plan will be to continue present medications, send the patient home and follow up with Dr. Duff's office in 6-8 weeks. Patient has been advised to follow the strict low-fat diet and to avoid alcohol and smoking. Job ID/Internal Job ID: [id number] documented in this encounter Discharge Instructions * Attachments The following attachments cannot be sent through Care Everywhere. * Low Fat Diet (Discharge Care) (Ecuadorean) documented in this encounter Medications at Time [...] History: Diagnosis Date Arthritis Asthma Brain concussion [id number] Cardiomyopathy (HCC) Cataract Cholelithiasis Depression [id number] Epiretinal membrane (ERM), bilateral GERD (gastroesophageal reflux [...] Clear Liquid (Order Panel) Effective tomorrow Question: ([facility]) Diet type Answer: Clear Liquid [...] do just ice chips and sips per DIE EQUIPMENT OPERATOR notes. Attempted visit but RN reported pt was not appropriate for RD assessment at that time, OUTSOLE CASER called and pt given narcan per notes. [...] NP 05/10/2023 This note was transcribed using M-[employer] Speech Recognition software. As a result, there [...] and patient improves symptomatically. Kaycee Reece MD [facility] * Ruslan Conrad [facility] - 05/09/2023 5:08 PM CDT Pharmacy Note - Formulary Substitution Albuterol nebs have been substituted for Xopenex nebs as approved by the [facility] Pharmacy and Therapeutics Committee. Ruslan [...] CV: S1-S2. ABDOMEN: Distal bowel sounds positive. FOOD SERVICE COORDINATOR: Alert, awake, oriented x3. There is no [...] patient improves symptomatically. Job ID/Internal Job ID: [id number] documented in this encounter Procedure Notes * Jordan Duff MD - 05/11/2023 2:11 PM CDTAssociated Order(s): ERCP ENDOSCOPY LAB Patient Name: Chrissy Kilgore Procedure Date: 05/11/2023 2:11 PM Admit Type: Inpatient Room: [facility] Date of : 1970 Instrument Name: TJF-Q400 [...] one pancreatic stents were visible on the behavior support specialist film. The esophagus was successfully intubated under [...] discussed. Start a fat-selective diet using preferentially [place] 3-rich sources, healthier and in our experience [...] drowsy. - Call our office as needed ([phone]). If ER visit is needed, make sure [...] 05/09/2023 9:44 AM Admit Type: Outpatient Room: [facility] 9 Date of : 1970 Instrument Name: [...] duct and ventral pancreatic duct. Findings: A behavior support specialist film of the abdomen was obtained and [...] Rapid Response Team Event Note Reason for OUTSOLE CASER: Apnea, somnolence Time Called: 1145 Time Arrived: 1150 SUBJECTIVE BRIEF HX: Patient is a 52 y.o. female with past medical history of asthma, GERD, cholelithiasis, HTN, IBS admitted on 05/09/[address] Duff. POD#1 OUTSOLE CASER was called 2/2 apnea and altered mental [...] History: Diagnosis Date Arthritis Asthma Brain concussion [id number] Cardiomyopathy (HCC) Cataract Cholelithiasis Depression [id number] Epiretinal membrane (ERM), bilateral GERD (gastroesophageal reflux [...] zanaflex #Lethargy 2/2 medications -Multiple medications with FOOD SERVICE COORDINATOR depression: dilaudid, compazine, and PRN ativan -Caution [...] Coverage: yes- medicaid Prescription Coverage: yes Pharmacy: [facility] #[id number] - [address] AT [facility] [address] [id number] Primary Care Provider: Ramonita Crawford NP Prior to Admission: Functional Status: Independent with ADLs Primary Caregiver: Self Support System: Spouse/Significant Other Support system contact info (name, phone, availablity): garry jasso [phone] Home Care Services: No Durable Medical Equipment: [...] a week How often do you attend anabaptism or christianity services?: Never Do you belong to any clubs or organizations such as anabaptism groups, unions, fraternal or athletic groups, or [...] to be Discharged to: Private residence, (05/09/23 2480) Additional Information: CM met with pt at [...] Collaboration with patient, MD, direct care nurse, Market Research Worker, and other members of the health care team to assure needed interventions completed. 2. Return patient to optimal level of self-care post discharge. 3. Chief Service Dispatcher will follow for Discharge Planning - interventions [...] and Pancreatic (05/11/2023 2:33 PM CDT) Narrative RAD_PACS_[facility] - 05/11/2023 2:34 PM CDT [...] 05/11/2023 2:11 PM Admit Type: Inpatient Room: [facility] Date of : 1970 Instrument Name: TJF-Q400 [...] one pancreatic stents were visible on the behavior support specialist film. The esophagus was successfully intubated under [...] drowsy. - Call our office as needed ([phone]). If ER visit is needed, make sure [...] Neutrophil abs 5.5 1.7 - 6.5 K/cumm [facility] Imm gran abs 0.0 0.0 - 0.1 K/cumm [facility] Lymphocyte abs 1.2 0.8 - 3.3 K/cumm [facility] Monocyte abs 0.4 0.2 - 0.8 K/cumm [facility] Eosinophil abs 0.2 0.0 - 0.5 K/cumm [facility] Basophil abs 0.0 0.0 - 0.1 K/cumm [facility] Neutrophil pct 75.8 % [facility] Comment: Interpretive Data Percent cell count reference ranges are not reported, since discordance with absolute values may lead to misinterpretation of CBC data. Current Interpretive Data was last revised on 2017. Imm gran pct 0.3 % [facility] Comment: Interpretive Data Percent cell count reference ranges are not reported, since discordance with absolute values may lead to misinterpretation of CBC data. Current Interpretive Data was last revised on 2017. Lymphocyte pct 16.0 % [facility] Comment: Interpretive Data Percent cell count reference ranges are not reported, since discordance with absolute values may lead to misinterpretation of CBC data. Current Interpretive Data was last revised on 2017. Monocyte pct 5.3 % [facility] Comment: Interpretive Data Percent cell count reference ranges are not reported, since discordance with absolute values may lead to misinterpretation of CBC data. Current Interpretive Data was last revised on 2017. Eosinophil pct 2.2 % [facility] Comment: Interpretive Data Percent cell count reference ranges are not reported, since discordance with absolute values may lead to misinterpretation of CBC data. Current Interpretive Data was last revised on 2017. Basophil pct 0.4 % [facility] Comment: Interpretive Data Percent cell count reference ranges are not reported, since discordance with absolute values may lead to misinterpretation of CBC data. Current Interpretive Data was last revised on 2017. Blood 05/10/2023 7:24 AM CDT 05/10/2023 7:30 AM CDT us Jordan Duff MD LAB BLOOD ORDERABLES Final Result [facility] [address] [place] [address] * CBC with auto differential (05/10/2023 7:24 AM CDT) WBC 7.2 3.8 - 9.9 K/cumm [facility] Hgb 12.2 11.9 - 15.5 g/dL [facility] Hct 36.6 35.6 - 45.5 % [facility] Plt 289 150 - 400 K/cumm [facility] MPV 9.4 9.1 - 12.3 fL [facility] RBC 4.19 3.90 - 5.20 M/cumm [facility] MCV 87.4 81.3 - 96.4 fL [facility] MCH 29.1 27.1 - 33.3 pg [facility] MCHC 33.3 32.3 - 35.7 g/dL [facility] RDW CV 12.3 11.1 - 14.9 % [facility] RDW SD 39.0 35.7 - 48.1 fL [facility] NRBC abs 0.00 0.00 - 0.01 K/cumm [facility] Blood 05/10/2023 7:24 AM CDT 05/10/2023 7:30 AM CDT Jordan Duff MD LAB BLOOD ORDERABLES Final Result Performing Organization Address City/State/[facility] Co de Phone Number [facility] [address] Department [place] [address] * ERCP (05/09/2023 9:44 AM CDT) Anatomical Region Laterality Modality Other Narrative Procedure Note Jordan Duff MD - 05/09/2023 9:44 AM CDT ENDOSCOPY LAB Patient Name: Chrissy Kilgore Procedure Date: 05/09/2023 9:44 AM Admit Type: Outpatient Room: [facility] 9 Date of : 1970 Instrument Name: [...] duct and ventral pancreatic duct. Findings: A behavior support specialist film of the abdomen was obtained and [...] 2.5 mg, nebulization, Every 4 hours PRN (supervisor correspondence section), wheezing, Starting on Tue05/09/23 at 1705, Therapeutic Interchange for Xopenex as approved by [facility] P&T Committee. albuterol HFA (PROVENTIL HFA,VENTOLIN HFA,PROAIR HFA) 90 mcg/actuation inhaler 2 puff 2 puff, inhalation, Every 6 hours PRN (supervisor correspondence section), wheezing, Starting on Tue05/09/23 at 1704 aluminum-magnesium [...] Transfer Provider - Reason: Patient not available)162 ([facility] Unhold - Provider: Automatic Transfer Provider)1800 (Due) cetirizine (ZyrTEC) tablet 10 mg 10 mg, oral, Daily, First dose on Tue05/09/23 at 1700 1716 (Given - Provider: Shirley Escamilla RN) 0812 (Given - Provider: Deedee Steel, ADAMA) 0910 (Given - Provider: Pamela Marlow, ADAMA)1332 (OCT Hold - Provider: Automatic Transfer Provider - Reason: Patient not available)162 ([facility] Unhold - Provider: Automatic Transfer Provider) docusate sodium (COLACE) capsule 100 mg 100 mg, oral, 2 times daily, First dose on Tue05/09/23 at 2100 2110 (Given - Provider: Aniyah Carney RN) 0812 (Given - Provider: Deedee Steel, ADAMA)2002 (Given - Provider: Yajaira Chen, ADAMA) 09 (Given - Provider: Pamela Marlow, ADAMA)133 ([facility] Hold - Provider: Automatic Transfer Provider - Reason: Patient not available)162 ([facility] Unhold - Provider: Automatic Transfer Provider) fluticasone propionate (FLONASE) 50 mcg/actuation nasal spray 2 spray 2 spray, each nostril, Daily, First dose on Tue05/09/23 at 1700 1734 (Given - Provider: Socorro Gamboa RN) 08 (Given - Provider: Deedee Steel, ADAMA) 09 (Given - Provider: Pamela Marlow, ADAMA)133 ([facility] Hold - Provider: Automatic Transfer Provider - Reason: Patient not available)162 ([facility] Unhold - Provider: Automatic Transfer Provider) levoFLOXacin [...] (Given - Provider: Yajaira Chen, ADAMA) 1331 ([facility] Hold - Provider: Automatic Transfer Provider - Reason: Patient not available)162 ([facility] Unhold - Provider: Automatic Transfer Provider) naloxone [...] 0910 (Given - Provider: Pamela Marlow, ADAMA)1332 ([facility] Hold - Provider: Automatic Transfer Provider - Reason: Patient not available)1628 ([facility] Unhold - Provider: Automatic Transfer Provider) pantoprazole DR (PROTONIX) extended release tablet 40 mg 40 mg, oral, Daily, First dose on Tue05/09/23 at 1700, Do not crush, chew, cut, dissolve, open or otherwise manipulate tablet/capsule., Indications: Treatment of Non-Bleeding Gastric Disorder 1716 (Given - Provider: Shirley Escamilla RN) 0812 (Given - Provider: Deedee Steel RN) 0910 (Given - Provider: Pamela Marlow, ADAMA)1332 ([facility] Hold - Provider: Automatic Transfer Provider - Reason: Patient not available)1628 ([facility] Unhold - Provider: Automatic Transfer Provider) rosuvastatin (CRESTOR) tablet 5 mg 5 mg, oral, Daily, First dose on Tue05/10/23 at 0900 0812 (Given - Provider: Deedee Steel RN) 0910 (Given - Provider: Pamela Marlow, ADAMA)1332 ([facility] Hold - Provider: Automatic Transfer Provider - Reason: Patient not available)1628 ([facility] Unhold - Provider: Automatic Transfer Provider) sacubitriL-valsartan (ENTRESTO) 24-26 mg tablet 1 tablet 1 tablet, oral, Every 12 hours, First dose on Tue05/09/23 at 1700 1716 (Given - Provider: Shirley Escamilla RN) 0542 (Given - Provider: Aniyah Carney RN)1731 (Given - Provider: Deedee Steel, ADAMA) 0438 (Given - Provider: Yajaira Chen RN)1332 ([facility] Hold - Provider: Automatic Transfer Provider - Reason: Patient not available)1628 ([facility] Unhold - Provider: Automatic Transfer Provider)1700 (Due) [...] (Given - Provider: Aniyah Carney RN) 1332 ([facility] Hold - Provider: Automatic Transfer Provider - Reason: Patient not available)1628 ([facility] Unhold - Provider: Automatic Transfer Provider) albuterol 2.5 mg /3 mL (0.083 %) nebulizer solution 2.5 mg 2.5 mg, nebulization, Every 4 hours PRN (supervisor correspondence section), wheezing, Starting on Tue05/09/23 at 1705, Therapeutic Interchange for Xopenex as approved by [facility] P&T Committee. 1332 ([facility] Hold - Provider: Automatic Transfer Provider - Reason: Patient not available)1628 ([facility] Unhold - Provider: Automatic Transfer Provider) albuterol HFA (PROVENTIL HFA,VENTOLIN HFA,PROAIR HFA) 90 mcg/actuation inhaler 2 puff 2 puff, inhalation, Every 6 hours PRN (supervisor correspondence section), wheezing, Starting on Tue05/09/23 at 1704 1332 ([facility] Hold - Provider: Automatic Transfer Provider - Reason: Patient not available)1628 ([facility] Unhold - Provider: Automatic Transfer Provider) aluminum-magnesium hydroxide-simethicone (MAALOX) 40-40-4 mg/mL oral suspension 30 mL 30 mL, oral, Every 4 hours PRN, heartburn, Starting on Tue05/10/23 at 1003 1332 ([facility] Hold - Provider: Automatic Transfer Provider - Reason: Patient not available)1628 ([facility] Unhold - Provider: Automatic Transfer Provider) famotidine (PEPCID) tablet 20 mg 20 mg, oral, Every 12 hours PRN, indigestion, heartburn, Starting on Tue05/09/23 at 1619 1716 (Given - Provider: Shirley Escamilla, ADAMA) 1332 ([facility] Hold - Provider: Automatic Transfer Provider - Reason: Patient not available)1628 ([facility] Unhold - Provider: Automatic Transfer Provider) HYDROmorphone [...] Carney, ADAMA) 0415 (Given - Provider: Aniyah Carney RN)0810 [...] Transfer Provider - Reason: Patient not available)1628 ([facility] Unhold - Provider: Automatic Transfer Provider) prochlorperazine (COMPAZINE) injection 5 mg 5 mg, intravenous, Administer over 2 Minutes, Every 6 hours PRN, nausea, vomiting, Starting on Tue05/10/23 at 1046 1108 (Given - Provider: Deedee Steel, ADAMA) 0033 (Given - Provider: Yajaira Chen, ADAMA)1332 ([facility] Hold - Provider: Automatic Transfer Provider - Reason: Patient not available)1628 ([facility] Unhold - Provider: Automatic Transfer Provider) secretin (CHIRHOSTIM) injection (CANCELED) Administer over 1 Minutes, As needed, Starting on Tue05/09/23 at 1013, Intra-Op 1013 (Given - Provider: Aleja Palomo RN) tiZANidine (ZANAFLEX) tablet 4 mg 4 mg, oral, 3 times daily PRN, muscle spasms, Starting on Tue05/09/23 at 1619, Administer on an empty stomach 1332 ([facility] Hold - Provider: Automatic Transfer Provider - Reason: Patient not available)1628 ([facility] Unhold - Provider: Automatic Transfer Provider) No [...] 05/10/2023 documented in this encounter Care Teams Outside Rigger Relationship Specialty Start Date End Date Ramonita Crawford NP [address] [address] PCP - General Family Medicine 02/18/23 Angeles Hernandez MD [address]22 [address] [address] Referring Physician Gynecology 07/21/21 documented as of this encounter
--- OUTSIDE RECORDS SUMMARY | 2024-09-03 20:00 | XMS_ITS | Encounter Summary ---
Author Organization [facility] Healthcare Address [address] [place] [address] Care Team Providers Care Derrick Follower Name Role Phone Angeles Hernandez MD Unavailable [phone] Ramonita Crawford NP Primary Care Provider Reason for Visit * Auth/Cert (Routine) Specialty Diagnoses / Procedures Referred By Contcosme t Referred To Contact Diagnoses Age-related nuclear cataract of right eye Age-related nuclear cataract of right eye [H25.11] Procedures OR XCAPSL CTRC RMVL INSJ IO LENS PROSTH W/O ECP OR XCAPSL CTRC RMVL INSJ IO LENS PROSTH CPLX WO ECP RIGHT EXTRACTION CATARACT - PHACOEMULSIFICATION AND LENS IMPLANT Referral ID Status Reason Start Date Expiration Date Visits Re quested Visits Authorized [id number] 1 1 Encounter Details Date Type Department Care Team (Latest Contact Info) Description 06/21/2023 7:44 AM CDT - 06/21/2023 10:39 AM CDT Hospital Encounter [facility] Operating Room [address] [place] [address] Mary Ann Webster MD [address] [place] [address] Discharge Disposition: Discharge to home or self [...] often do you attend chur ch or yarsanism services? Never 05/10/2023 Do you belong to any clubs o r organizations such as caodaism groups, unions, fraternal or athletic groups, or [...] in a half-way (including now)? No 05/10/2023 Personal Safety Answer Date Recorded Have you ever been in or are you currently in a harmful physical or emotional relationship or is someone making you feel afraid or unsafe? 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 Thank you for entrusting us with your [...] Preoperative Evaluation Record Evaluation type/location: TPAP from [facility] Planned procedure site: [facility] Date: 06/02/23 NOTE: This note represents a [...] arrhythmia - bradycardia. Pertinent negatives: CAD ; [place] ; CABG ; atrial fibrillation; pacemaker/ICD; DVT/PE; negative for CHF; drug-eluting stent(s) and bare metal stent(s) Comments: Follows with cardiology, Dr Leon Mora at [facility], last seen 1 week ago. Reportsrecent echo in last 2-3 mo, pt reports EF 65% 03/2022 +Takotsubo cardiomyopathy with life vest x 3 mo, stopped wearing 05/2023. 05/2022 Dr Schneider: 1. Recovered Nonischemic cardiomyopathy with severe LV systolic dysfunction. LVEDP 42 mm by cardiaccatheterization on 03/03/2022.Status post cardiac catheterization for abnormal cardiac enzymes on 03/03/[address] [facility] shows no evidence of coronary artery disease. Her echo today showed LVEF 63%. 2. History of COVID-19 infection February of 2022 with COVID pneumonia. History of Present Illness: Chrissy Kilgore is a pleasant 51 y.o. female who presents to [facility] with shortness of breath. She had a [...] provided by telephone and electronically sent via [employer]. Patient verbalized understanding of preoperative plan. Blood [...] History: Diagnosis Date Arthritis Asthma Brain concussion 9811904 Cardiomyopathy (HCC) Cataract Cholelithiasis Depression [id number] Epiretinal membrane (ERM), bilateral GERD (gastroesophageal reflux [...] age undetermined Echocardiogram(s): 02/24/23 (OSH record, see [facility] tab- 06/02/2023): 06/01/22 [place] is normal. Normal [...] Other: 05/26/23 Cards note (OSH record, see [facility] tab- 06/02/2023): 05/24/19 Brain MRI (OSH records [...] right eye. SURGEON: Mary Ann Webster MD ELASTIC YARN TWISTER HELPER: none ANESTHESIA: MAC with Local INDICATIONS FOR [...] Implant Name Type Inv. Item Serial No. Lawn Mower Mechanic Lot No. LRB No. Used [employer] Acrysof Iq Natural Stableforce Acrysert 6mm 13mm 1 Piece Foldable [id number]- [id number] - [id number] [employer] Natural [employer] Ac[employer]ert 6mm 13mm 1 Piece Foldable [id number] [employer] Right 1 Implanted SPECIMENS REMOVED:none ESTIMATED BLOOD LOSS:minimal INTRAOPERATIVE FLUIDS:Per anesthesia SPONGE/INSTRUMENT/NEEDLE COUNTS:correct COMPLICATIONS: None CONDITION ON DISCHARGE FROM OPERATING ROOM:stable * Pre-Procedure Instructions - Yajaira Elliott NP - 06/02/2023 12:18 PM CDT Center for Preoperative Assessment and Planning CPAP Clinic Location: [facility] The night before your surgery: * [...] remove nail coverings, artificial nails and nail bahamian prior to the day of surgery. You should leave your valuables and any jewelry at home. No metal or piercings are allowed in the operating room. You should bring your insurance card, a photo ID (example: Biology Adjunct Instructor's License) and a method of payment for [...] Chart. If you are having surgery at [facility], please arrive on the day of surgery [...] Remove nail coverings, artificial nails and nail bahamian. Place clean linens on your bed the [...] questions, please call the CPAP Staff at [phone], Tuesday-Tuesday 8am-4:30pm. All patients should read the below section: COVID 19 Updates & Visitor Policy: Please access [email or web address] for the most updated information. Information on [facility] or [facility] ([facility]): Please view [email or web address] (Patient and Visitor Information) for parking/directions and more. For MyChart information, to activate account or password recovery, please go to [email or web address] or call [phone] (toll-free: [phone]), Tue- Tuesday 8am-5pm. Information for Suicide Prevention: National Suicide Prevention Lifeline (7-636- 888-SFON (2122)). Surgery Times: For patients having surgery @ [facility] or [facility] ([facility]), if your surgeon's office has not notified you of your surgery time by NOON THE BUSINESS DAY BEFORE your surgery, please call [phone] and ask for your surgeon's office Dr Webster. * Perioperative Nursing Note - Aleja Lentz RN - 06/02/2023 9:29 AM CDT Center for Preoperative Assessment and Planning Perioperative Nursing Note Telephone Preoperative Evaluation ([facility]) - TELEPHONE ONLY, NO PHYSICAL EXAM Date: [...] Directive: Patient does not have advance directive Communication/Tooling Supervisor Needs Communication Needs: Glasses Assistive Devices/DME: Eyeglasses, Dentures lower, Dentures upper Discharge Planning Type of Residence: Private residence Living Arrangements: Spouse/significant other Support Systems: Spouse/significant other Assistance Needed: her partner Cesia will be caring for her after procedure Patient expects to be discharged to:: Private residence ROLL PRESS OPERATOR NO documented in this encounter Plan [...] (New Bag - Prov ider: Joceline Jiménez RN)0994 (Rate/Dose Verify - Provider: Yajaira Galarza CRNA)1030 [...] injection 4 mg 1 06/21 povidone-iodine (BETADINE OR EP) 5 % ophthalmic solution 1 06/21/2023 [...] 06/21/2023 documented in this encounter Care Teams Derrick Follower Relationship Specialty Start Date End Date Ramonita Crawford NP [address] [address] PCP - General Family Medicine 02/18/23 Angeles Hernandez MD [address] [address] Referring Physician Gynecology 07/21/21 documented as of this encounter
--- OUTSIDE RECORDS SUMMARY | 2024-09-03 20:00 | XMS_ITS | Encounter Summary ---
Author Organization [facility] Healthcare Address [address] [place] [address] Care Team Providers Care Talent Acquisition Consultant Name Role Phone Angeles Hernandez MD Unavailable [phone] Ramonita Crawford NP Primary Care Provider [phone] Reason for Visit * Auth/Cert (Routine) Specialty [...] Expiration Date Visits Re quested Visits Authorized [id number] 1 1 Encounter Details Date Type Department Care Team (Latest Contact Info) Description 05/09/2023 7:32 AM CDT - 05/11/2023 6:17 PM CDT Hospital Encounter [facility] [address] [place] [id number] Jordan Duff MD [address] [facility] [address] [place] [address] Kaycee Reece MD [address] [place] [address] Right upper quadrant pain; Nausea; Abnormal findings [...] often do you attend chur ch or sabianist services? 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 Abdomen: Bowel sounds positive. Provider Relations Rep: Alert, awake, oriented x3. There is no gross focal neurological deficit. Extremities: There is no pedal edema. PLAN So the plan will be to continue present medications, send the patient home and follow up with Dr. Duff's office in 6-8 weeks. Patient has been advised to follow the strict low-fat diet and to avoid alcohol and smoking. Job ID/Internal Job ID: [id number] documented in this encounter Discharge Instructions * Attachments The following attachments cannot be sent through Care Everywhere. * Low Fat Diet (Discharge Care) (Haitian) documented in this encounter Medications at Time [...] History: Diagnosis Date Arthritis Asthma Brain concussion [id number] Cardiomyopathy (HCC) Cataract Cholelithiasis Depression [id number] Epiretinal membrane (ERM), bilateral GERD (gastroesophageal reflux [...] Clear Liquid (Order Panel) Effective tomorrow Question: ([facility]) Diet type Answer: Clear Liquid 05/09/23 1619 [...] do just ice chips and sips per PAD TUFTER notes. Attempted visit but RN reported pt was not appropriate for RD assessment at that time, CONCRETE PAVEMENT INSTALLER called and pt given narcan per [...] SAAB/bang Reece -one time dose of Emilio Blanco NP 05/10/2023 This note was transcribed using [employer] Speech Recognition software. As a result, there [...] oral, Q4H PRN, 650 mg at 05/09/23 9863 albuterol 2.5 mg /3 mL (0.083 %) [...] and patient improves symptomatically. Kaycee Reece MD [facility] * [facility] - 05/09/2023 5:08 PM CDT Pharmacy Note - Formulary Substitution Albuterol nebs have been substituted for Xopenex nebs as approved by the [facility] Pharmacy and Therapeutics Committee. Ruslan Conrad [...] CV: S1-S2. ABDOMEN: Distal bowel sounds positive. HARVESTING SUPERVISOR: Alert, awake, oriented x3. There is no [...] patient improves symptomatically. Job ID/Internal Job ID: [id number] documented in this encounter Procedure Notes * Jordan Duff MD - 05/11/2023 2:11 PM CDTAssociated Order(s): ERCP ENDOSCOPY LAB Patient Name: Chrissy Kilgore Procedure Date: 05/11/2023 2:11 PM Admit Type: Inpatient Room: [facility] Date of : 1970 Instrument [...] one pancreatic stents were visible on the restaurant recruiter film. The esophagus was successfully intubated under [...] discussed. Start a fat-selective diet using preferentially Foster 3-rich sources, healthier and in our experience [...] drowsy. - Call our office as needed ([phone]). If ER visit is needed, make sure [...] 05/09/2023 9:44 AM Admit Type: Outpatient Room: [facility] 9 Date of : 1970 [...] duct and ventral pancreatic duct. Findings: A restaurant recruiter film of the abdomen was obtained and [...] Rapid Response Team Event Note Reason for CONCRETE PAVEMENT INSTALLER: Apnea, somnolence Time Called: 1145 Time Arrived: 1150 SUBJECTIVE BRIEF HX: Patient is a 52 y.o. female with past medical history of asthma, GERD, cholelithiasis, HTN, IBS admitted on 05/09/[address] Duff. POD#1 CONCRETE PAVEMENT INSTALLER was called 2/2 apnea and altered [...] History: Diagnosis Date Arthritis Asthma Brain concussion [id number] Cardiomyopathy (HCC) Cataract Cholelithiasis Depression [id number] Epiretinal membrane (ERM), bilateral GERD (gastroesophageal reflux [...] zanaflex #Lethargy 2/2 medications -Multiple medications with HARVESTING SUPERVISOR depression: dilaudid, compazine, and PRN ativan -Caution [...] Coverage: yes- medicaid Prescription Coverage: yes Pharmacy: [id number] - [place] - [address] [facility] [place] [id number] Primary Care Provider: Ramonita Crawford NP Prior to Admission: Functional Status: Independent with ADLs Primary Caregiver: Self Support System: Spouse/Significant Other Support system contact info (name, phone, availablity): garry jasso [phone] Home Care Services: No Durable Medical Equipment: [...] a week How often do you attend anabaptist or sabianist services?: Never Do you belong to any clubs or organizations such as anabaptist groups, unions, fraternal or athletic groups, or [...] to be Discharged to: Private residence, (05/09/23 9951) Additional Information: CM met with pt at [...] Collaboration with patient, MD, direct care nurse, Van Helper, and other members of the health care team to assure needed interventions completed. 2. Return patient to optimal level of self-care post discharge. 3. Accredited Farm Manager will follow for Discharge Planning - interventions [...] and Pancreatic (05/11/2023 2:33 PM CDT) Narrative RAD_PACS_[facility] - 05/11/2023 2:34 PM CDT The images [...] 05/11/2023 2:11 PM Admit Type: Inpatient Room: [facility] Date of : 1970 Instrument [...] one pancreatic stents were visible on the restaurant recruiter film. The esophagus was successfully intubated under [...] drowsy. - Call our office as needed ([phone]). If ER visit is needed, make sure [...] Neutrophil abs 5.5 1.7 - 6.5 K/cumm [facility] Imm gran abs 0.0 0.0 - 0.1 K/cumm [facility] Lymphocyte abs 1.2 0.8 - 3.3 K/cumm [facility] Monocyte abs 0.4 0.2 - 0.8 K/cumm [facility] Eosinophil abs 0.2 0.0 - 0.5 K/cumm [facility] Basophil abs 0.0 0.0 - 0.1 K/cumm [facility] Neutrophil pct 75.8 % [facility] Comment: Interpretive Data Percent cell count reference ranges are not reported, since discordance with absolute values may lead to misinterpretation of CBC data. Current Interpretive Data was last revised on 2017. Imm gran pct 0.3 % [facility] Comment: Interpretive Data Percent cell count reference ranges are not reported, since discordance with absolute values may lead to misinterpretation of CBC data. Current Interpretive Data was last revised on 2017. Lymphocyte pct 16.0 % [facility] Comment: Interpretive Data Percent cell count reference ranges are not reported, since discordance with absolute values may lead to misinterpretation of CBC data. Current Interpretive Data was last revised on 2017. Monocyte pct 5.3 % [facility] Comment: Interpretive Data Percent cell count reference ranges are not reported, since discordance with absolute values may lead to misinterpretation of CBC data. Current Interpretive Data was last revised on 2017. Eosinophil pct 2.2 % [facility] Comment: Interpretive Data Percent cell count reference ranges are not reported, since discordance with absolute values may lead to misinterpretation of CBC data. Current Interpretive Data was last revised on 2017. Basophil pct 0.4 % [facility] Comment: Interpretive Data Percent cell count reference ranges are not reported, since discordance with absolute values may lead to misinterpretation of CBC data. Current Interpretive Data was last revised on 2017. Blood 05/10/2023 7:24 AM CDT 05/10/2023 7:30 AM CDT us Jordan Duff MD LAB BLOOD ORDERABLES Final Result [facility] [address] [place] [address] * CBC with auto differential (05/10/2023 7:24 AM CDT) WBC 7.2 3.8 - 9.9 K/cumm [facility] Hgb 12.2 11.9 - 15.5 g/dL [facility] Hct 36.6 35.6 - 45.5 % [facility] Plt 289 150 - 400 K/cumm [facility] MPV 9.4 9.1 - 12.3 fL [facility] RBC 4.19 3.90 - 5.20 M/cumm [facility] MCV 87.4 81.3 - 96.4 fL [facility] MCH 29.1 27.1 - 33.3 pg [facility] MCHC 33.3 32.3 - 35.7 g/dL [facility] RDW CV 12.3 11.1 - 14.9 % [facility] RDW SD 39.0 35.7 - 48.1 fL [facility] NRBC abs 0.00 0.00 - 0.01 K/cumm [facility] Blood 05/10/2023 7:24 AM CDT 05/10/2023 7:30 AM CDT Jordan Duff MD LAB BLOOD ORDERABLES Final Result [facility] [address] Department [place] [address] * ERCP (05/09/2023 9:44 AM CDT) Anatomical Region Laterality Modality Other Narrative Procedure Note Jordan Duff MD - 05/09/2023 9:44 AM CDT ENDOSCOPY LAB Patient Name: Chrissy Kilgore Procedure Date: 05/09/2023 9:44 AM Admit Type: Outpatient Room: [facility] 9 Date of : 1970 [...] duct and ventral pancreatic duct. Findings: A restaurant recruiter film of the abdomen was obtained and [...] 2.5 mg, nebulization, Every 4 hours PRN (entertainment & media correspondent), wheezing, Starting on Tue05/09/23 at 1705, Therapeutic Interchange for Xopenex as approved by [facility] P&T Committee. albuterol HFA (PROVENTIL HFA,VENTOLIN HFA,PROAIR HFA) 90 mcg/actuation inhaler 2 puff 2 puff, inhalation, Every 6 hours PRN (entertainment & media correspondent), wheezing, Starting on Tue05/09/23 at 1704 [...] (Given - Provider: Yajaira Chen RN) 133 ([facility] Hold - Provider: Automatic Transfer Provider - Reason: Patient not available)162 ([facility] Unhold - Provider: Automatic Transfer Provider) [...] 09 (Given - Provider: Pamela Marlow, ADAMA)133 ([facility] Hold - Provider: Automatic Transfer Provider - Reason: Patient not available)162 ([facility] Unhold - Provider: Automatic Transfer Provider) pantoprazole DR (PROTONIX) extended release tablet 40 mg 40 mg, oral, Daily, First dose on Tue05/09/23 at 1700, Do not crush, chew, cut, dissolve, open or otherwise manipulate tablet/capsule., Indications: Treatment of Non-Bleeding Gastric Disorder 171 (Given - Provider: Shirley Escamilla RN) 08 (Given - Provider: Deedee Steel RN) 09 (Given - Provider: Pamela Marlow RN)133 ([facility] Hold - Provider: Automatic Transfer Provider - Reason: Patient not available)162 ([facility] Unhold - Provider: Automatic Transfer Provider) [...] 2.5 mg, nebulization, Every 4 hours PRN (entertainment & media correspondent), wheezing, Starting on Tue05/09/23 at 1705, Therapeutic Interchange for Xopenex as approved by [facility] P&T Committee. 1332 ([facility] Hold - Provider: Automatic Transfer Provider - Reason: Patient not available)1628 ([facility] Unhold - Provider: Automatic Transfer Provider) albuterol HFA (PROVENTIL HFA,VENTOLIN HFA,PROAIR HFA) 90 mcg/actuation inhaler 2 puff 2 puff, inhalation, Every 6 hours PRN (entertainment & media correspondent), wheezing, Starting on Tue05/09/23 at 1704 1332 ([facility] Hold - Provider: Automatic Transfer Provider - Reason: Patient not available)1628 ([facility] Unhold - Provider: Automatic Transfer Provider) aluminum-magnesium hydroxide-simethicone (MAALOX) 40-40-4 mg/mL oral suspension 30 mL 30 mL, oral, Every 4 hours PRN, heartburn, Starting on Tue05/10/23 at 1003 1332 ([facility] Hold - Provider: Automatic Transfer Provider - Reason: Patient not available)1628 ([facility] Unhold - Provider: Automatic Transfer Provider) famotidine (PEPCID) tablet 20 mg 20 mg, oral, Every 12 hours PRN, indigestion, heartburn, Starting on Tue05/09/23 at 1619 1716 (Given - Provider: Shirley Escamilla, ADAMA) 1332 ([facility] Hold - Provider: Automatic Transfer Provider - Reason: Patient not available)1628 ([facility] Unhold - Provider: Automatic Transfer Provider) [...] (Given - Provider: Deedee Steel, ADAMA) 1332 ([facility] Hold - Provider: Automatic Transfer Provider - Reason: Patient not available)1628 ([facility] Unhold - Provider: Automatic Transfer Provider) ioversoL [...] 15 seconds 1204 (Given - Provider: Ligia Patrciio, ADAMA)2004 (Given - Provider: Yajaira Chen, ADAMA) [...] (Given - Provider: Deedee Steel, ADAMA) 1332 ([facility] Hold - Provider: Automatic Transfer Provider - Reason: Patient not available)1628 ([facility] Unhold - Provider: Automatic Transfer Provider) prochlorperazine (COMPAZINE) injection 5 mg 5 mg, intravenous, Administer over 2 Minutes, Every 6 hours PRN, nausea, vomiting, Starting on Tue05/10/23 at 1046 1108 (Given - Provider: Deedee Steel, ADAMA) 0033 (Given - Provider: Yajaira Chen RN)1332 ([facility] Hold - Provider: Automatic Transfer Provider - Reason: Patient not available)1628 ([facility] Unhold - Provider: Automatic Transfer Provider) secretin (CHIRHOSTIM) injection (CANCELED) Administer over 1 Minutes, As needed, Starting on Tue05/09/23 at 1013, Intra-Op 1013 (Given - Provider: Aleja Palomo, ADAMA) tiZANidine (ZANAFLEX) tablet 4 mg 4 mg, oral, 3 times daily PRN, muscle spasms, Starting on Tue05/09/23 at 1619, Administer on an empty stomach 1332 ([facility] Hold - Provider: Automatic Transfer Provider - Reason: Patient not available)1628 ([facility] Unhold - Provider: Automatic Transfer Provider) [...] 05/10/2023 documented in this encounter Care Teams Talent Acquisition Consultant Relationship Specialty Start Date End Date Ramonita Crawford NP [address] [address] PCP - General Family Medicine 02/18/23 Angeles Hernandez MD [address] [facility] [address] [place], [place] [id number] Referring Physician Gynecology 07/21/21 documented as of this encounter
--- OUTSIDE RECORDS SUMMARY | 2024-09-03 20:00 | XMS_ITS | Encounter Summary ---
Author Organization [facility] Healthcare Address [address] [place] [address] Care Team Providers Care Bartender Manager Name Role Phone Angeles Hernandez MD Unavailable [phone] Jeff Guzman Primary Care Provider [phone] Reason for Referral * MRI/CAT/PET Scan (Routine) - Closed Specialty Diagnoses / Procedures Referred By Sharlene angulo Referred To Contact Radiology Diagnoses Family history of breast cancer Procedures MRI Breast Bilateral W WO Contrast Rachel Kay MD [address] [facility] [place] [address] Phone: tel: fax: [address] [phone] Referral ID Status Reason Start Date Expiration Date Visits Re quested Visits Authorized [id number] Closed 05/18/2022 06/17/2023 1 1 L EXECUTIVE Reason for Visit * MRI/CAT/PET Scan (Routine) - Closed Specialty Diagnoses / Procedures Referred By Contac t Referred To Contact Radiology Diagnoses Family history of breast cancer Procedures MRI Breast Bilateral W WO Contrast Rachel Kay MD [address] [facility] [place] [address] Phone: tel: fax: [address] [phone] Referral ID Status Reason Start Date Expiration Date Visits Re quested Visits Authorized [id number] Closed 05/18/2022 06/17/2023 1 1 Encounter Details Date Type Department Care Team (Latest Contact Info) Description 10/25/2022 11:32 AM LEGAL EXECUTIVE - 10/25/2022 11:59 PM LEGAL EXECUTIVE Hospital Encounter [address] [address] Family history of breast cancer Discharge Disposition: [...] on file Legal Sex Female 2:59 PM LEGAL EXECUTIVE Gender Identity Female 03/27/2020 5:01 PM CDT [...] Read Routine (OP Routine) 10/25/2022 12:53 PM LEGAL EXECUTIVE Family history of breast cancer documented in this encounter Results * MRI Breast Bilateral W WO Contrast (10/25/2022 12:53 PM LEGAL EXECUTIVE) Anatomical Region Laterality Modality Breast Bilateral Magnetic Resonan ce 10/25/2022 12:2 9 PM LEGAL EXECUTIVE Impressions 10/25/2022 12:35 PM LEGAL EXECUTIVE 1. ?? No MRI evidence of malignancy. Given the patient's elevated estimated lifetime risk of breast cancer, annual screening mammography and annual screening breast MRI is recommended. ASSESSMENT: BIRADS: 2 - BENIGN. ?? THIS IS AN ELECTRONICALLY VERIFIED FINAL REPORT 10/25/2022 12:35 PM - Electronically signed by ??Jules Reeves M.D. RL: HERMELINDA D: ??10/25/2022 12:35 PM T: ??10/25/2022 12:35 PM Report ID: [id number] Reading Location: ??[facility] Narrative 10/25/2022 12:35 PM LEGAL EXECUTIVE EXAM DESCRIPTION: ?? MRI BREAST BILATERAL W [...] coil. The images were reviewed on an [employer] work station and underwent CAD analysis. FINDINGS: [...] 1 dose Contrast Given 10/25/2022 12:00 PM LEGAL EXECUTIVE 18 mL Right Antecubital documented in this encounter Orders Medications Ordered That Sarabjit ht Not Have Been Administered Count Last Ordered Date First Ordered Date gadoterate meglumine injection 20 mL 1 01/2023 documented in this encounter Care Teams Bartender Manager Relationship Specialty Start Date End Date Jeff Guzman PA [address] [facility] [address] [place] [address] PCP - General Family Medicine 06/21/22 02/17/23 Angeles Hernandez MD [address] [address] Referring Physician Gynecology 07/21/21 documented as of this encounter
--- OUTSIDE RECORDS SUMMARY | 2024-09-03 20:00 | XMS_ITS | Encounter Summary ---
Author Organization [facility] Healthcare Address [address] [place] [address] Care Team Providers Care Seed Sales Manager Name Role Phone Angeles Hernandez MD Unavailable [phone] Jeff Guzman Primary Care Provider [phone] Reason for Referral * Diagnostic Imaging (Routine) - Closed Specialty Diagnoses / Procedures Referred By Sharlene angulo Referred To Contact Diagnoses Atypical lobular hyperplasia (ALH) of left breast Family history of breast cancer Breast pain, left Procedures US Breast Left Limited Rachel Kay MD [address] [address] Phone: tel: fax: [address] [phone] Referral ID Status Reason Start Date Expiration Date Visits Re quested Visits Authorized [id number] Closed 05/18/2022 06/17/2023 1 1 DIGGER Reason for Visit * Diagnostic Imaging (Routine) - Closed Specialty Diagnoses / Procedures Referred By Contcosme t Referred To Contact Diagnoses Atypical lobular hyperplasia (ALH) of left breast Family history of breast cancer Breast pain, left Procedures US Breast Left Limited Rachel Kay MD [address] [address] Phone: tel: fax: [address] [phone] Referral ID Status Reason Start Date Expiration Date Visits Re quested Visits Authorized [id number] Closed 05/18/2022 06/17/2023 1 1 Encounter Details Date Type Department Care Team (Latest Contact Info) Description 07/23/2022 11:58 AM COAL DIGGER - 07/23/2022 11:59 PM COAL DIGGER Hospital Encounter [facility] [address] [place] [address] Rachel Kay MD [address] [place] [address] 1, Jocy Bradshaw Md Atypical lobular hyperplasia [...] file Legal Sex Female 2:59 PM COAL DIGGER Gender Identity Female 03/27/2020 5:01 PM CDT [...] Read Routine (OP Routine) 07/23/2022 1:20 PM COAL DIGGER Atypical lobular hyperplasia (ALH) of left breast Family history of breast cancer Breast pain, left documented in this encounter Results * US Breast Left Limited (07/23/2022 1:20 PM COAL DIGGER) Anatomical Region Laterality Modality Breast Left Ultrasound 07/23/2022 1:27 PM COAL DIGGER Impressions 07/23/2022 1:27 PM COAL DIGGER No evidence of malignancy in the left breast. OVERALL FINAL ASSESSMENT: BI-RADS Category 2: Benign. RECOMMENDATION: Annual screening mammography is recommended. Electronically signed by: Mary Blevins M.D. Narrative 07/23/2022 1:27 PM COAL DIGGER EXAMINATION: LEFT UNILATERAL DIGITAL DIAGNOSTIC MAMMOGRAM AND [...] left documented in this encounter Care Teams Seed Sales Manager Relationship Specialty Start Date End Date Jeff Guzman PA [address] [place] [address] PCP - General Family Medicine 06/21/22 02/17/23 Angeles Hernandez MD [address] [place] [address] Referring Physician Gynecology 07/21/21 documented as of this encounter
--- OUTSIDE RECORDS SUMMARY | 2024-09-03 20:00 | XMS_ITS | Encounter Summary ---
Author Organization [facility] Address [address] [place] [address] Phone Care Team Providers Care Global Climate Change Researcher Name Role Phone Angeles Hernandez MD Unavailable [phone] Ramonita Crawford NP Primary Care Provider [phone] Reason for Visit * Reason Comments Cataract Encounter Details Date Type Department Care Team (Late st Contact Info) Description 02/18/2023 8:30 AM CDT Office Visit [facility] Ophthalmology [address] [facility] [place] [address] Mary Ann Webster MD [address] [place] [address] Age-related nuclear cataract of right [...] on file Legal Sex Female 2:59 PM DIGITAL PUBLISHING SPECIALIST Gender Identity Female 03/27/2020 5:01 PM [...] membrane, Peripapillary atrophy Wearing Rx Sphere Cyl[employer] [place] Add Right eye -2.25 -2.25 095 +2.00 Left eye -1.25 -1.50 040 +2.00 Age: 2yrs Type: bifocal Care Teams Global Climate Change Researcher Relationship Specialty Start Date End Date Ramonita Crawford NP [address] [address] PCP - General Family Medicine 02/18/23 Angeles Hernandez MD [address] [address] Referring Physician Gynecology 07/21/21 documented as of this encounter
--- OUTSIDE RECORDS SUMMARY | 2024-09-03 20:01 | XMS_ITS | Encounter Summary ---
Author Organization [facility] Address [address] [place] [address] Care Team Providers Care Drywall Hanger Helper Name Role Phone Angeles Hernandez MD Unavailable [phone] Reason for Visit * Reason Onset Date Comments Request Call Back 03/15/2022 Encounter Details Date Type Department Care Team ([facility] st Contact Info) Description 03/15/2022 Telephone [facility] Family Medicine [address] [place] [phone] Brijesh Lynch MD [address] [place] [address] Request Call Back Social History Tobacco Use [...] on file 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 [phone] Pt number documented in this encounter Plan of Treatment Not on file documented as of this encounter Visit Diagnoses Not on filedocumented in this encounter Care Teams Drywall Hanger Helper Relationship Specialty Start Date End Date Angeles Hernandez MD [address] [address] Referring Physician Gynecology 07/21/21 documented as of this encounter
--- OUTSIDE RECORDS SUMMARY | 2024-09-03 20:01 | XMS_ITS | Encounter Summary ---
Author Organization [facility] Address [address] [place] [address] Care Team Providers Care Boarding Machine Operator Name Role Phone Angeles Hernandez MD Unavailable [phone] Reason for Referral * Diagnostic Imaging (Routine) - Closed Specialty Diagnoses / Procedures Referred By Contac t Referred To Contact Diagnoses Chronic pain of right knee Procedures XR Knee Right 4+ Vw Jeff Guzman PA Phone: tel: fax: [address] [phone] Referral ID Status Reason Start Date Expiration Date Visits Re quested Visits Authorized [id number] Closed 11/18/2021 12/18/2022 1 1 Reason for Visit * Diagnostic Imaging (Routine) - Closed Specialty Diagnoses / Procedures Referred By Contac adele Referred To Contact Diagnoses Chronic pain of right knee Procedures XR Knee Right 4+ Vw Jeff Guzman PA Phone: tel: fax: [address] [address] Referral ID Status Reason Start Date Expiration Date Visits Re quested Visits Authorized [id number] Closed 11/18/2021 12/18/2022 1 1 Encounter Details Date Type Department Care Team (Latest Contact Info) Description 11/19/2021 8:37 AM CDT - 11/19/2021 11:59 PM CDT Hospital Encounter [facility] [address] [place] [address] Chronic pain of right knee Discharge Disposition: [...] on file 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 PS T: Report ID: [id number] Reading Location: [id number] us Jeff CASTELLON IMG XR PROCEDURES Final Result documented in this encounter Visit Diagnoses Diagnosis Chronic pain of right knee documented in this encounter Care Teams Boarding Machine Operator Relationship Specialty Start Date End Date Angeles Hernandez MD [address] [address] Referring Physician Gynecology 07/21/21 documented as of this encounter
--- OUTSIDE RECORDS SUMMARY | 2024-09-03 20:01 | XMS_ITS | Encounter Summary ---
Author Organization [facility] Medical Group Address [address] [facility] [place] [address] Care Team Providers Care Dealership Manager Name Role Phone Angeles Hernandez MD Unavailable [phone] Reason for Referral * Consultation (Routine) - Closed Specialty Diagnoses / Procedures Referred By Contac t Referred To Contact Cardiology Diagnoses Broken heart syndrome Brijesh Lynch MD Phone: tel: fax: Jeannie Swanson MD [address] [facility] [address] [place] [address] Phone: tel: fax: Referral ID Status Reason Start Date Expiration Date V isits Requested Visits Authorized [id number] Closed Specialty Services Required 03/04/2022 04/03/2023 1 1 Question Answer Please select the performing region: External Order [171] To provider: JEANNIE SWANSON [[id number]] # of visits: 1 Encounter Details Date Type Department Care Team (Late st Contact Info) Description 03/04/2022 Telephone [facility] Family Medicine [address] [place] [address] Brijesh Lynch MD [address] [place] [address] [address] [place] [address] Social History Tobacco Use Types Packs/Day Years [...] on file 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
--- OUTSIDE RECORDS SUMMARY | 2024-09-03 20:01 | XMS_ITS | Encounter Summary ---
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 Testing performed by: [facility] [address], [place] [address] Blood 05/18/2022 8:57 AM CDT 05/18/2022 8:57 AM CDT us Vasquez Schneider MD LAB BLOOD ORDERABLES Final Res ult SHEL[facility] [address] [place] [address] * Pro B-type natriuretic peptide (05/18/2022 8:57 [...] Last Revised Date: 2018. Testing performed by: [facility] [address], [place] [address] Blood 05/18/2022 8:57 AM CDT 05/18/2022 8:57 AM CDT us Vasquez Schneider MD LAB BLOOD ORDERABLES Final Res ult [facility] [address] Department of Laboratories [place], [place] [id number] * (ABNORMAL) Basic metabolic panel (05/18/2022 8:57 AM CDT) Sodium 137 135 - 145 mmol/L CERNER Comment:Testing performed by : [facility] [address], [place] [address] Potassium, pl 4.5 3.3 - 4.9 mmol/L CERNER Comment:Testing performed by : [facility] [address], [place] [address] Chloride 101 97 - 110 mmol/L CERNER Comment:Testing performed by : [facility] [address], [place] [address] CO2 26 22 - 32 mmol/L CERNER Comment:Testing performed by : [facility] [address], [place] [address] Anion gap 10 2 - 15 mmol/L CERNER Comment:Testing performed by : [facility] [address], [place] [address] BUN 13 8 - 25 mg/dL CERNER Comment:Testing performed by : [facility] [address], [place] [address] Creatinine 0.80 0.60 - 1.10 mg/dL CERNER Comment:Testing performed by : [facility] [address], [place] [address] Glucose 107 70 [...] was last revised 2017. Testing performed by: [facility], [address] [place] [address] Calcium 10.6(H) 8.5 - 10.3 mg/dL SHELBY CRUZ Comment:Testing performed by : [facility], [address] [address] Blood 05/18/2022 8:57 AM CDT 05/18/2022 8:57 AM CDT us Vasquez Schneider MD LAB BLOOD ORDERABLES Final Res ult [facility] [place]UZ [address] [address] Department [place] [address] documented in this encounter Visit Diagnoses Diagnosis Broken heart syndrome Takotsubo syndrome Encounter to establish care with new doctor documented in this encounter Care Teams Entry Level Paralegal Relationship Specialty Start Date End Date Angeles Hernandez MD [address] [address] Referring Physician Gynecology 07/21/21 documented as of this encounter
--- OUTSIDE RECORDS SUMMARY | 2024-09-03 20:01 | XMS_ITS | Encounter Summary ---
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 73 m2 SHELBY VILLATORO [...] LAB BLOOD ORDERABLES Final Resu lt SHELBY [address] [facility] Department [place] [address] * Differential, auto (11/18/2021 12:39 PM CDT) Neutrophil abs 5.6 1.7 - 6.5 K/cumm [facility] Imm gran abs 0.0 0.0 - 0.1 K/cumm [facility] Lymphocyte abs 1.1 0.8 - 3.3 K/cumm [facility] Monocyte abs 0.4 0.2 - 0.8 K/cumm [facility] Eosinophil abs 0.1 0.0 - 0.5 K/cumm [facility] Basophil abs 0.0 0.0 - 0.1 K/cumm [facility] Neutrophil pct 77.4 % [facility] Comment: Interpretive Data Percent cell count reference ranges are not reported, since discordance with absolute values may lead to misinterpretation of CBC data. Current Interpretive Data was last revised on 2017. Imm gran pct 0.4 % [facility] Comment: Interpretive Data Percent cell count reference ranges are not reported, since discordance with absolute values may lead to misinterpretation of CBC data. Current Interpretive Data was last revised on 2017. Lymphocyte pct 15.2 % [facility] Comment: Interpretive Data Percent cell count reference ranges are not reported, since discordance with absolute values may lead to misinterpretation of CBC data. Current Interpretive Data was last revised on 2017. Monocyte pct 5.6 % [facility] Comment: Interpretive Data Percent cell count reference ranges are not reported, since discordance with absolute values may lead to misinterpretation of CBC data. Current Interpretive Data was last revised on 2017. Eosinophil pct 1.1 % [facility] Comment: Interpretive Data Percent cell count reference ranges are not reported, since discordance with absolute values may lead to misinterpretation of CBC data. Current Interpretive Data was last revised on 2017. Basophil pct 0.3 % [facility] Comment: Interpretive Data Percent cell count reference ranges are not reported, since discordance with absolute values may lead to misinterpretation of CBC data. Current Interpretive Data was last revised on 2017. Blood 11/18/2021 12:3 9 PM CDT 11/18/2021 12:40 PM CDT Jeff CASTELLON LAB BLOOD ORDERABLES Final Resu lt Performing Organization Address [facility] Co de Phone Number [address] [email or web address] [address] * Magnesium (11/18/2021 12:39 PM CDT) Magnesium 2.0 1.4 - 2.5 mg/dL [facility] Blood 11/18/2021 12:3 9 PM CDT 11/18/2021 12:40 PM CDT Jeff CASTELLON LAB BLOOD ORDERABLES Final Resu lt Performing Organization Address [facility] de Phone Number [address] [address] * TSH (11/18/2021 12:39 PM CDT) Pathologist [facility] Thyroid Stimulating Hormone 0.61 0.30 - 4.20 mcIUnit/mL [facility] Blood 11/18/2021 12:3 9 PM CDT 11/18/2021 12:40 PM CDT Jeff CASTELLON LAB BLOOD ORDERABLES Final Resu lt Performing Organization Address [facility] Co de Phone Number [address] [address] * CBC with auto differential (11/18/2021 12:39 PM CDT) WBC 7.3 3.8 - 9.9 K/cumm [facility] Hgb 14.7 11.9 - 15.5 g/dL [facility] Hct 44.5 35.6 - 45.5 % [facility] Plt 267 150 - 400 K/cumm [facility] MPV 9.3 9.1 - 12.3 fL [facility] RBC 4.92 3.90 - 5.20 M/cumm [facility] MCV 90.4 81.3 - 96.4 fL [facility] MCH 29.9 27.1 - 33.3 pg [facility] MCHC 33.0 32.3 - 35.7 g/dL [facility] RDW CV 13.4 11.1 - 14.9 % [facility] RDW SD 44.3 35.7 - 48.1 fL [facility] NRBC abs 0.00 0.00 - 0.01 K/cumm [facility] Blood 11/18/2021 12:3 9 PM CDT 11/18/2021 12:40 PM CDT us Jeff CASTELLON LAB BLOOD ORDERABLES Final Resu lt Performing Organization Address City/State/[facility] Co de Phone Number [place] [phone] [facility] Department [place] [address] * (ABNORMAL) Comprehensive metabolic panel (11/18/2021 12:39 PM CDT) Sodium 141 135 - 145 mmol/L [facility] Potassium, pl 4.0 3.3 - 4.9 mmol/L [facility] Chloride 104 97 - 110 mmol/L [facility] CO2 24 22 - 32 mmol/L [facility] Anion gap 13 2 - 15 mmol/L [facility] BUN 16 8 - 25 mg/dL [facility] Creatinine 0.60 0.60 - 1.10 mg/dL [facility] Glucose 112 70 - 199 mg/dL [facility] Comment: Interpretive Data Fasting glucose >/= [...] 2017. Calcium 9.8 8.5 - 10.3 mg/dL [facility] Bilirubin, total 0.8 0.1 - 1.2 mg/dL [facility] Protein, pl 7.4 6.5 - 8.5 g/dL [facility] Albumin 4.6 3.5 - 5.0 g/dL [facility] Alk phos 151(H) 40 - 130 Units/L [facility] ALT 88(H) 7 - 45 Units/L [facility] AST 87(H) 10 - 45 Units/L [facility] Blood 11/18/2021 12:3 9 PM CDT 11/18/2021 12:40 PM CDT us Jeff CASTELLON LAB BLOOD ORDERABLES Final Resu lt [facility] [address] [facility] Department [place] [address] documented in this encounter Visit Diagnoses Diagnosis Muscle cramps Essential hypertension Unspecified essential hypertension Weight loss Loss of weight documented in this encounter Care Teams Perinatal Coordinator Relationship Specialty Start Date End Date Angeles Hernandez MD [address] [address] Referring Physician Gynecology 07/21/21 documented as of this encounter
--- OUTSIDE RECORDS SUMMARY | 2024-09-03 20:01 | XMS_ITS | Encounter Summary ---
Author Organization [facility] Address [address] [place] [address] Phone Care Team Providers Care Renderer Name Role Phone Angeles Hernandez MD Unavailable [phone] Reason for Referral * MRI/CAT/PET Scan (Routine) - Closed Specialty Diagnoses / Procedures Referred By Contac t Referred To Contact Radiology Diagnoses Family history of breast cancer Procedures MRI Breast Bilateral W WO Contrast Rachel Kay MD [address] [place] [address] Phone: tel: fax: [address] [address] Referral ID Status Reason Start Date Expiration Date Visits Re quested Visits Authorized [id number] Closed 05/18/2022 06/17/2023 1 1 * Diagnostic Imaging (Routine) - Closed Specialty Diagnoses / Procedures Referred By Contac t Referred To Contact Diagnoses Atypical lobular hyperplasia (ALH) of left breast Family history of breast cancer Breast pain, left Procedures US Breast Left Limited Rachel Kay MD [address] [place] [address] Phone: tel: fax: [facility] [address] [place] [phone] Referral ID Status Reason Start Date Expiration Date Visits Re quested Visits Authorized [id number] Closed 05/18/2022 06/17/2023 1 1 Reason for Visit * Reason Comments Follow-up * Consultation (Routine) - Canceled Specialty Diagnoses / Procedures Referred By Sharlene t Referred To Contact Oncology Diagnoses Family history of breast cancer Rachel Kay MD [address] [place] [address] Phone: tel: fax: Rachel Kay MD [address] [place] [address] Phone: tel: fax: Referral ID Status Reason Start Date Expiration Date Visits Requested Visits Authorized [id number] Canceled Specialty Services Required 02/02/2022 08/21/2023 99 99 Encounter Details Date Type Department Care Team (Late st Contact Info) Description 05/18/2022 9:40 AM CDT Office Visit 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 In their clinic [...] breast biopsies (left axillary benign lymph nodes, [facility] 01/2013) Past medical history: Patient Active [...] Medical History: Diagnosis Date Asthma Brain concussion 2742035 Depression 7737609 Epiretinal membrane (ERM), bilateral GERD (gastroesophageal reflux disease) Hypercholesteremia Hypertension Irritable bowel syndrome Kidney stone 938885 Menstrual problem 032103 Migraines 232516 Peptic ulceration 0101?? 1 Past surgical history: Past Surgical History: Procedure Laterality Date APPENDECTOMY BREAST SURGERY CATARACT EXTRACTION 478911 CHOLECYSTECTOMY 949433 COLON SURGERY 247195 COLONOSCOPY DILATION AND CURETTAGE OF UTERUS GALLBLADDER [...] cancer . Maternal ethnicity: ; no Ashkenazi Adventist. Paternal ethnicity: Grenadian Scanned pedigree 08/05/21 Review of systems: Review [...] Breast imaging Breast MRI 12/16/2012 done at [facility] and showing bilateral masses. Comparison to priors [...] underwent excision--results be low. Screening mammography at [facility] 07/06/16, BI-RADS 2 for bilateral masses. Scattered fibroglandular densities. bilateral screening mammography 12/10/20 at [facility]. BI-RADS 2. No priors were available. Multiple [...] reports and data reviewed: Office records from [facility] in Care Everywhere and scanned 07/05/16 and [...] sent 09/03/21 showing 2 VUSs: PTCH1 c.134C>G (p.Lzl35Qzl, subsequently downgradedto likely benign) and SMARCA4 c.[id number] (intronic). CT CAP 12/16/21 showed mild intrahepatic biliary ductal dilatation and a 1.4 cm common duct, recommend correlation with liver function tests and consider MRCP Office notes from Cardiology, family Medicine Risk Assessment: As of 08/05/21 Benjie mac lifetime risk 23-27% (28-33% without competing mortality) (depending on inclusion of her single focus of atypia) Benjie Roa est 10 year risk 9% Clarita estimated [...] services. Rachel Kay MD, FACS Medical Oncology [facility] documented in this encounter Plan of Treatment Not on file documented as of this encounter Results * MRI Breast Bilateral W WO Contrast (10/25/2022 12:53 PM EMERGENCY MEDICINE NURSE PRACTITIONER) Anatomical Region Laterality Modality Breast Bilateral Magnetic Resonan ce 10/25/2022 12:2 9 PM EMERGENCY MEDICINE NURSE PRACTITIONER Impressions 10/25/2022 12:35 PM EMERGENCY MEDICINE NURSE PRACTITIONER 1. ?? No MRI evidence of malignancy. Given the patient's elevated estimated lifetime risk of breast cancer, annual screening mammography and annual screening breast MRI is recommended. ASSESSMENT: BIRADS: 2 - BENIGN. ?? THIS IS AN ELECTRONICALLY VERIFIED FINAL REPORT 10/25/2022 12:35 PM - Electronically signed by ??Jules Reeves M.D. RL: RL D: ??10/25/2022 12:35 PM T: ??10/25/2022 12:35 PM Report ID: [id number] Reading Location: ??[facility] Narrative 10/25/2022 12:35 PM EMERGENCY MEDICINE NURSE PRACTITIONER EXAM DESCRIPTION: ?? MRI BREAST BILATERAL W [...] coil. The images were reviewed on an [employer] work station and underwent CAD analysis. FINDINGS: [...] US Breast Left Limited (07/23/2022 1:20 PM EMERGENCY MEDICINE NURSE PRACTITIONER) Anatomical Region Laterality Modality Breast Left Ultrasound 07/23/2022 1:27 PM EMERGENCY MEDICINE NURSE PRACTITIONER Impressions 07/23/2022 1:27 PM EMERGENCY MEDICINE NURSE PRACTITIONER No evidence of malignancy in the left breast. OVERALL FINAL ASSESSMENT: BI-RADS Category 2: Benign. RECOMMENDATION: Annual screening mammography is recommended. Electronically signed by: Mary Blevins M.D. Narrative 07/23/2022 1:27 PM EMERGENCY MEDICINE NURSE PRACTITIONER EXAMINATION: LEFT UNILATERAL DIGITAL DIAGNOSTIC MAMMOGRAM AND [...] breast documented in this encounter Care Teams Renderer Relationship Specialty Start Date End Date Angeles Hernandez MD [address] [address] Referring Physician Gynecology 07/21/21 documented as of this encounter
--- OUTSIDE RECORDS SUMMARY | 2024-09-03 20:01 | XMS_ITS | Encounter Summary ---
Author Organization [facility] Address [address] [place] [address] Care Team Providers Care Call Center Trainer Name Role Phone Angeles Hernandez MD Unavailable [phone] Reason for Referral * MRI/CAT/PET Scan (Routine) - Closed Specialty Diagnoses / Procedures Referred By Sharlene t Referred To Contact Radiology Diagnoses Periumbilical abdominal pain Diarrhea, unspecified type Procedures CT Abdomen Pelvis W Contrast Jeff Guzman PA Phone: tel: fax: [address] [address] Referral ID Status Reason Start Date Expiration Date Visits Re quested Visits Authorized [id number] Closed 11/19/2021 02/17/2022 1 1 Reason for Visit * MRI/CAT/PET Scan (Routine) - Closed Specialty Diagnoses / Procedures Referred By Contac t Referred To Contact Radiology Diagnoses Periumbilical abdominal pain Diarrhea, unspecified type Procedures CT Abdomen Pelvis W Contrast Jeff Guzman PA Phone: tel: fax: [address] [address] Referral ID Status Reason Start Date Expiration Date Visits Re quested Visits Authorized [id number] Closed 11/19/2021 02/17/2022 1 1 Encounter Details Date Type Department Care Team (Latest Contact Info) Description 12/16/2021 12:07 PM CDT - 12/16/2021 11:59 PM CDT [facility] [address] [place] [address] Periumbilical abdominal pain; Diarrhea, unspecified type Discharge [...] on file 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 MJ T: Report ID: [id number] Reading Location: [place] [address] PROCEDURES Final Result [...] Antecubital documented in this encounter Care Teams Call Center Trainer Relationship Specialty Start Date End Date Angeles Hernandez MD [address] [address] Referring Physician Gynecology 07/21/21 documented as of this encounter
--- OUTSIDE RECORDS SUMMARY | 2024-09-03 20:01 | XMS_ITS | Encounter Summary ---
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
--- OUTSIDE RECORDS SUMMARY | 2024-09-03 20:01 | XMS_ITS | Encounter Summary ---
Author Organization [facility] Medical Group Address [address] [place] [address] Care Team Providers Care Nurses' Registry Director Name Role Phone Angeles Hernandez MD Unavailable [phone] Reason for Visit * Reason Onset Date Comments Med Refill 05/06/2022 Encounter Details Date Type Department Care Team ([facility] st Contact Info) Description 05/06/2022 Telephone [facility] Medical Group Family Medicine [address] [place] [address] Brijesh Lynch MD [address] [place] [address] Med Refill Social History Tobacco Use Types [...] file 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
--- OUTSIDE RECORDS SUMMARY | 2024-09-03 20:01 | XMS_ITS | Encounter Summary ---
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
--- OUTSIDE RECORDS SUMMARY | 2024-09-03 20:01 | XMS_ITS | Encounter Summary ---
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
--- OUTSIDE RECORDS SUMMARY | 2024-09-03 20:01 | XMS_ITS | Encounter Summary ---
Author Organization [facility] Address [address] [place] [address] Phone Care Team Providers Care Nuclear Logging Engineer Name Role Phone Angeles Hernandez MD Unavailable [phone] Reason for Referral * Cardiology (Routine) - Closed Specialty Diagnoses / Procedures Referred By Sharlene angulo Referred To Contact Diagnoses Broken heart syndrome Encounter to establish care with new doctor Procedures Transthoracic Echo (TTE) Complete W Doppler/CF Jeannie Swanson MD [facility] [address] [address] Phone: tel: fax: External Order Referral ID Status Reason Start Date Expiration Date Visits Re quested Visits Authorized [id number] Closed 05/11/2022 06/10/2023 1 1 Reason for Visit * Consultation (Routine) - Closed Specialty Diagnoses / Procedures Referred By Sharlene angulo Referred To Contact Cardiology Diagnoses Broken heart syndrome Brijesh Lynch MD Phone: tel: fax: Jeannie Swanson MD [address] [address] Phone: tel: fax: Referral ID Status Reason Start Date Expiration Date V isits Requested Visits Authorized [id number] Closed Specialty Services Required 03/04/2022 04/03/2023 1 1 Encounter Details Date Type Department Care Team (Late st Contact Info) Description 05/11/2022 9:00 AM CDT Office Visit [facility] Cardiology [address] [place] [address] Jeannie Swanson MD [address] [facility] [place] [place] [address] Encounter to establish care with new doctor [...] file Legal 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 2. History of COVID-19 infection February of 2022 with COVID pneumonia. History of Present Illness: Chrissy Kilgore is a pleasant 51 y.o. female who presents to [facility] with shortness of breath. She had a [...] History: Diagnosis Date Arthritis Asthma Brain concussion [id number] Depression 3173675 Epiretinal membrane (ERM), bilateral GERD (gastroesophageal reflux [...] No history of alcohol use drug use [id number] medication or herbal medication. No history of smoking. Testng: Cath 03/02/2022 ; No CAD noted LVEDP 42 mm of Hg. Echo 71/31706 ; LVEF 20-25%. PASP 49 mm of [...] regarding her cardiac problems. Jeannie Swanson MD youth minister Cardiology Division [facility] This note was written using a voice recognition system hardware device. Please note there may be variance in spelling, glendy, and syntax because of the voice recognition system hardware. Therefore,not every sentence has been reviewed in its entirety. If there are any concerns about verbage aboveplease contact me at [phone]. documented in this encounter Miscellaneous Notes * [...] 06/02/2022 3:35 AM CDT Patient name: Chrissy Kilogre Date of test: 06/01/2022 [facility] Date of : 1970 (F) Copper Plate Printer: Eileen Avila RDCS Referring Physician: JEANNIE SWANSON MD Contrast Agent: 1.1 ml Optison Administered, (1.9 ml wasted). Contrast Administered by: Eileen Avila RDCS Supervised/Interpreted by: Jeannie Swanson MD Diagnosis: Location: [facility] Reason for test: Broken Heart Syndrome MV [...] 2=Hypo 3=Akinetic 4=Dyskin./Aneurysm 0=Not visualized) Parasternal Long Uehling:MAS=1 BAS=1 MIL=1 BRENDA=1 Parasternal Short Uehling:MAS=1 MIS=1 MD=1 MIL=1 MAL=1 MA=1 Apical 4 Chambers:=1 MIS=1 BIS=1 BAL=1 MAL=1 AL=1 AC=1 Apical 2 Chambers:AI=1 MD=1 BI=1 BA=1 MA=1 AA=1 AC=1 LV Global [...] MD By signing this report, the attending optical design engineer certifies that he or she has personally supervised and interpreted the echocardiogram and has reviewed and or edited and agrees with the written comments contained within the report. Procedure Note Jeannie Swanson MD - 06/02/2022 Patient name: Chrissy Kilgore Date of test: 06/01/2022 Type of test: TTE w/Doppler [facility] #: 0 Date of : 1970 (F) Copper Plate Printer: Eileen Avila RDCS Referring Physician: JEANNIE SWANSON MD Contrast Agent: 1.1 ml Optison Administered, (1.9 ml wasted). Contrast Administered by: Eileen Avila RDCS Supervised/Interpreted by: Jeannie Swanson MD Diagnosis: Location: [facility] Reason for test: Broken Heart Syndrome MV [...] 2=Hypo 3=Akinetic 4=Dyskin./Aneurysm 0=Not visualized) Parasternal Long Uehling:MAS=1 BAS=1 MIL=1 BRENDA=1 Parasternal Short Uehling:MAS=1 MIS=1 MD=1 MIL=1 MAL=1 MA=1 Apical 4 Chambers:=1 MIS=1 BIS=1 BAL=1 MAL=1 AL=1 AC=1 Apical 2 Chambers:AI=1 MD=1 BI=1 BA=1 MA=1 AA=1 AC=1 LV Global [...] MD By signing this report, the attending optical design engineer certifies that he or she has personally supervised and interpreted the echocardiogram and has reviewed and or edited and agrees with the written comments contained within the report. us Jeannie Swanson MD CV ECHO PROCEDURES Final Resul t * (ABNORMAL) Basic metabolic panel (05/18/2022 8:57 AM CDT) [facility] Sodium 137 135 - 145 mmol/L SHELBY CRUZ Comment:Testing performed by : [facility], [facility], [place] [address] Potassium, pl 4.5 3.3 - 4.9 mmol/L SHELBY Comment:Testing performed by : [facility] [place] [address] Chloride 101 97 - 110 mmol/L CERNER Comment:Testing performed by : [facility] [place] [address] CO2 26 22 - 32 mmol/L CERNER Comment:Testing performed by : [facility] [place] [place] [place] [address] Anion gap 10 2 - 15 mmol/L CERNER Comment:Testing performed by : [facility] [place] [address] BUN 13 8 - 25 mg/dL CERNER Comment:Testing performed by : [facility] [place] [address] Creatinine 0.80 0.60 - 1.10 mg/dL CERNER Comment:Testing performed by : [facility] [place] [address] Glucose 107 70 - 199 mg/dL [facility] Comment: Interpretive Data Fasting glucose >/= 126 [...] was last revised 2017. Testing performed by: [facility] [place] [address] Calcium 10.6(H) 8.5 - 10.3 mg/dL [facility] Comment:Testing performed by : [facility] [place] [address] Blood 05/18/2022 8:57 AM CDT 05/18/2022 8:57 AM CDT us Jeannie Swanson MD LAB BLOOD ORDERABLES Final Res ult [facility] [address] Department [place] [address] * Pro B-type natriuretic peptide [...] Last Revised Date: 2018. Testing performed by: [facility], [address], [place] [address] Blood 05/18/2022 8:57 AM CDT 05/18/2022 8:57 AM CDT Jeannie Swanson MD LAB BLOOD ORDERABLES Final Res ult SHELBY [address] Department [place] [address] * ECG 12 lead (05/11/2022) [...] 01/26/2022 05/11/2022 isosorbide-hydrALAZINE (BIDIL) 20-37.5 mg per tabletIndications:computer systems security administrator bryant heart failure Take 1 tablet by [...] 05/11/2022 documented in this encounter Care Teams Nuclear Logging Engineer Relationship Specialty Start Date End Date Angeles Hernandez MD [address] [place] [address] Referring Physician Gynecology 07/21/21 documented as of this encounter
--- OUTSIDE RECORDS SUMMARY | 2024-09-03 20:01 | XMS_ITS | Encounter Summary ---
Author Organization [facility] Medical Group Address [address] [place] [address] Care Team Providers Care Bowling Teacher Name Role Phone Angeles Hernandez MD Unavailable [phone] Reason for Visit * Reason Onset Date Comments Request Call Back 04/02/2022 medications Encounter Details Date Type Department Care Team ([facility] st Contact Info) Description 04/02/[address] 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
--- OUTSIDE RECORDS SUMMARY | 2024-09-03 20:01 | XMS_ITS | Encounter Summary ---
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
--- OUTSIDE RECORDS SUMMARY | 2024-09-03 20:01 | XMS_ITS | Encounter Summary ---
Author Organization [facility] Healthcare Address [address] [place] [address] Care Team Providers Care Corrections Lieutenant Name Role Phone Angeles Hernandez MD Unavailable [phone] Reason for Referral * Diagnostic Imaging (Routine) - Closed Specialty Diagnoses / Procedures Referred By Sharlene angulo Referred To Contact Diagnoses Family history of breast cancer Breast cancer screening, high risk patient Procedures Screening Mammogram Bilateral W Rachel Chowdary MD [address] [place] [address] Phone: tel: fax: [address] [address] Referral ID Status Reason Start Date Expiration Date Visits Re quested Visits Authorized [id number] Closed 08/05/2021 09/04/2022 1 1 Reason for Visit * Diagnostic Imaging (Routine) - Closed Specialty Diagnoses / Procedures Referred By Sharlene angulo Referred To Contact Diagnoses Family history of breast cancer Breast cancer screening, high risk patient Procedures Screening Mammogram Bilateral W Rachel Chowdary MD [address] [place] [address] Phone: tel: fax: [address] [address] Referral ID Status Reason Start Date Expiration Date Visits Re quested Visits Authorized [id number] Closed 08/05/2021 09/04/2022 1 1 Encounter Details Date Type Department Care Team (Latest Contact Info) Description 05/18/2022 8:24 AM CDT - 05/18/2022 11:59 PM CDT Hospital Encounter [facility] Imaging and Radiology [address] [place] [address] Rachel Kay MD [address] [place] [address] Family history of breast cancer; Breast cancer [...] file Legal 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
--- OUTSIDE RECORDS SUMMARY | 2024-09-03 20:01 | XMS_ITS | Encounter Summary ---
Author Organization 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
--- OUTSIDE RECORDS SUMMARY | 2024-09-03 20:01 | XMS_ITS | Encounter Summary ---
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
--- OUTSIDE RECORDS SUMMARY | 2024-09-03 20:01 | XMS_ITS | Encounter Summary ---
Author Organization [facility] Medical Group Address [address] [facility] [address] [place] [address] Care Team Providers Care Director Trust Name Role Phone Angeles Hernandez MD Unavailable [phone] Reason for Visit * Reason Comments Cardiomyopathy Wearing lifevest for mos, not a tcm Hospital Follow Up Hosp f/u cardiomyo/p neumonia, broken heart syndrome then er for covid, feels better Sinus Problem Blakely, sinus pressure, sinus dng Encounter Details Date Type Department Care Team (Late st Contact Info) Description 03/29/2022 1:[address] 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 During the visit, I was located in the office and the patient was located at home in the [facility]. The patient visit started at 1400 and [...] pack and medrol dose pack change to [facility] Psychophysiological insomnia (F51.04) Comments: condition chronic nad at goal contionue the ativan Chronic combined systolic and diastolic congestive heart failure (CMS/HCC) ([facility]) (I50.42) Comments: conditon chroinc [...] 2 added in this encounter Care Teams Director Trust Relationship Specialty Start Date End Date Angeles Hernandez MD [address] [facility] [address] [place] [address] Referring Physician Gynecology 07/21/21 documented as of this encounter
--- OUTSIDE RECORDS SUMMARY | 2024-09-03 20:01 | XMS_ITS | Encounter Summary ---
Author Organization [facility] Medical Group Address [address] [facility] [address] [place] [address] Care Team Providers Care Run Boat Operator Name Role Phone Angeles Hernandez MD Unavailable [phone] Reason for Visit * Reason Comments Joint Pain Encounter Details Date Type Department Care Team ([facility] st Contact Info) Description 05/04/2022 9:45 AM CDT Office Visit [facility] Family Medicine [address] [place] [address] Brijehs Lynch MD [address] [place] [address] Type 2 diabetes mellitus without complication, without [...] on file 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] complication, without long-term current use of insulin ([facility] ([facility])- Primary Mild intermittent asthma without complication Chronic combined systolic and diastolic congestive heart failure ([facility]) Slow transit constipation Arthralgia of both hands documented in this encounter Discontinued Medications Medication Sig Discontinue Reason Start Date End Da te HYDROcodone-acetaminophe n (NORCO) 5-325 mg per tablet Take by mouth every 6 (six) hours as needed Reorder 02/04/2022 05/04/2022 documented as of this encounter Care Teams Run Boat Operator Relationship Specialty Start Date End Date Angeles Hernandez MD [address] [address] Referring Physician Gynecology 07/21/21 documented as of this encounter
--- OUTSIDE RECORDS SUMMARY | 2024-09-03 20:01 | XMS_ITS | Encounter Summary ---
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
--- OUTSIDE RECORDS SUMMARY | 2024-09-03 20:01 | XMS_ITS | Encounter Summary ---
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
--- OUTSIDE RECORDS SUMMARY | 2024-09-03 20:01 | XMS_ITS | Encounter Summary ---
Author Organization [facility] Medical Group Address [address] [facility] [address] [place] [address] Care Team Providers Care Kettle Room Helper Name Role Phone Angeles Hernandez MD Unavailable [phone] Reason for Visit * Reason Onset Date Comments overdue results 03/23/2022 Encounter Details Date Type Department Care Team ([facility] st Contact Info) Description 03/23/2022 Telephone [facility] Medical Group Family Medicine [address] [place] [address] Brijesh Lynch MD [address] [place] [address] overdue results Social History Tobacco Use Types [...] on file 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
--- OUTSIDE RECORDS SUMMARY | 2024-09-03 20:01 | XMS_ITS | Encounter Summary ---
Author Organization [facility] Medical Group Address [address] [facility] [address] [place] [address] Care Team Providers Care Small Piece Cutter Name Role Phone Angeles Hernandez MD Unavailable [phone] Reason for Visit * Reason Onset Date Comments Test Results 12/17/2021 Encounter Details Date Type Department Care Team ([facility] Contact Info) Description 12/17/2021 Telephone [facility] Family Medicine [address] [place] [address] Jeff Guzman, PA [address] [address] Test Results Social History Tobacco Use Types [...] on file 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
--- OUTSIDE RECORDS SUMMARY | 2024-09-03 20:01 | XMS_ITS | Encounter Summary ---
Author Organization [facility] Address [address] [place] [address] Phone Care Team Providers Care Pipeline Superintendent Name Role Phone Angeles Hernandez MD Unavailable [phone] Reason for Visit * Reason Onset Date Comments Medication Problem 05/12/2022 Spironolacton e vs. Entresto Encounter Details Date Type Department Care Team (Late st Contact Info) Description 05/12/2022 Telephone [facility] Cardiology [address] [facility] 8th [place] [address] [place] [address] Vasquez Schneider MD [address] [facility] [address] [place] [address] Medication Problem (Spironolactone vs. 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 PLEASE CALL [facility] IN [place], [place]. Called [facility] in [place], [place] and spoke with Eileen and confirmed [...] INTERACTION BETWEEN SPIRONOLACTONE AND ENTRESTO. PLEASE CALL [facility] IN [place], [place]. documented in this encounter Plan of Treatment Not on file documented as of this encounter Visit Diagnoses Not on filedocumented in this encounter Care Teams Pipeline Superintendent Relationship Specialty Start Date End Date Angeles Hernandez MD [address] [place] [address] Referring Physician Gynecology 07/21/21 documented as of this encounter
--- OUTSIDE RECORDS SUMMARY | 2024-09-03 20:01 | XMS_ITS | Encounter Summary ---
Author Organization 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 [facility] Diagnosis/Reason for Appointment: Broken heart Syndrome Best Contact Number for Patient: [phone] Relation: significant other Primary Care Physician: Brijesh Lynch PCP Referring Physician: Brijesh Lynch Ref Ph: If Referring MD is not PCP, list specialty: Triage Questions Yes No Who/Where/When/Notes IF PATIENT IS REQUESTING CARDIOLOGY COVID CLINIC (General COVID Clinic phone: [phone]) (PCP and other provider referrals can be [...] with Cardio-Oncology Have you ever seen a Athletic Events Scorer in an office setting? [x] [] Dr[facility] Mora [facility] If yes, where were you [...] hospitalized for ANY cardiac issue? [x] [] [place], [place]/february 2022 Have you ever had an [...] ever had a Cardiac Cath? [x] [] [place], [place] February 2022 Have you ever had a Cardiac Surgery (including ablations, cardioversions, CABG, etc.)? [x] [] Pt unsure if it was for cardiac reasons but she did have mri and ct /in chart Have you ever had a sleep study? [x] [] 1 year ago / [facility]/pt has cpap Do you have a device? If yes what type? (Pacemaker, Defibrillator, Implanted Loop Recorder) [x] [x] If yes, where and when was device put in? Is Support Analyst? ([employer], [employer], [employer]) Notes: Appointment Date: 05/11/22 Type: New Provider: Wyatt Location: [facility] 23[address] [x] Confirm appt date, time, provider [...] on filedocumented in this encounter Care Teams Continuity Person Relationship Specialty Start Date End Date Angeles Hernandez MD [address] [place] [address] Referring Physician Gynecology 07/21/21 documented as of this encounter
--- OUTSIDE RECORDS SUMMARY | 2024-09-03 20:01 | XMS_ITS | Encounter Summary ---
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 Note to Patients: ??This report may [...] : ??1970 (Age: 51) Gender: ??F Address: ??[address] [place] [address] [address] RINA Yuen [place], [place] [facility] #: [id number] Service: DEFAULT Location: Patient Type: B SPECIMEN [...] A2 - remaining central [facility]11/19/2021 10:48 ??CANDE Olivia Jeff [facility] PATHOLOGY ORDERABLES Final Result documented in this encounter Visit Diagnoses Not on filedocumented in this encounter Care Teams Labor Relations Teacher Relationship Specialty Start Date End Date Angeles Hernandez MD [address] [address] Referring Physician Gynecology 07/21/21 documented as of this encounter
--- OUTSIDE RECORDS SUMMARY | 2024-09-03 20:01 | XMS_ITS | Encounter Summary ---
Author Organization [facility] Medical Group Address [address] [facility] [address] [place] [address] Care Team Providers Care Fixer Boarding Room Name Role Phone Angeles Hernandez MD Unavailable [phone] Reason for Visit * Reason Comments Post-op Problem Encounter Details Date Type Department Care Team ([facility] st Contact Info) Description 01/26/2022 2:30 PM CDT Office Visit [facility] Family Medicine [address] [place] [address] Jeff Guzman, PA [address] [address] XENA (generalized anxiety disorder) (Primary Dx); Psychophysiological [...] on file 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
--- OUTSIDE RECORDS SUMMARY | 2024-09-03 20:01 | XMS_ITS | Encounter Summary ---
Author Organization [facility] Medical Group Address [address] [facility] [address] [place] [address] Care Team Providers Care Board Member Name Role Phone Angeles Hernandez MD Unavailable [phone] Reason for Visit * Reason Comments Discuss Test Results Encounter Details Date Type Department Care Team ([facility] st Contact Info) Description 12/18/2021 10:30 AM CDT Telemedicine [facility] Family Medicine [address] [place] [address] Jeff Guzman PA [address] [address] Primary osteoarthritis of right knee (Primary Dx); [...] on file 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 During the visit, I was located at home and the patient was located at home [facility]. The patient visit started at 10:28 a.m. [...] documented as of this encounter Care Teams Board Member Relationship Specialty Start Date End Date Angeles Hernandez MD [address] [address] Referring Physician Gynecology 07/21/21 documented as of this encounter
--- OUTSIDE RECORDS SUMMARY | 2024-09-03 20:01 | XMS_ITS | Encounter Summary ---
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
--- OUTSIDE RECORDS SUMMARY | 2024-09-03 20:01 | XMS_ITS | Encounter Summary ---
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
--- OUTSIDE RECORDS SUMMARY | 2024-09-03 20:01 | XMS_ITS | Encounter Summary ---
Author Organization 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
--- OUTSIDE RECORDS SUMMARY | 2024-09-03 20:01 | XMS_ITS | Encounter Summary ---
Author Organization [facility] Medical Group Address [address] [facility] [address] [place] [address] Care Team Providers Care Catering Operations Manager Name Role Phone Angeles Hernandez MD Unavailable [phone] Jeff Guzman Primary Care Provider [phone] Ramonita Crawford NP Primary Care Provider [phone] Encounter Details Date Type Department Care Team (Late st Contact Info) Description 03/09/2022 Orders Only [facility] Health Information Management [address] [place] [address] Jeff Guzman PA [facility] [address] [address] Social History Tobacco Use Types Packs/Day Years [...] file 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
--- OUTSIDE RECORDS SUMMARY | 2024-09-03 20:02 | XMS_ITS | Encounter Summary ---
Author Organization [facility] Medical Group Address [address] [facility] [address] [place] [address] Care Team Providers Care Dial Painter Name Role Phone Angeles Hernandez MD Unavailable [phone] Reason for Visit * Reason Comments Follow-up Abcess to abd, sinus inf, uti Encounter Details Date Type Department Care Team ([facility] st Contact Info) Description 09/28/2021 9:30 AM SENIOR SOFTWARE ANALYST Office Visit [facility] Medical [facility] Family Medicine [address] [place] [address] Brijesh Lynch MD [address] [place] [address] [address] [place] [address] Yeast vaginitis (Primary Dx); Dysuria; Mild intermittent [...] file Legal Sex Female 2:59 PM SENIOR SOFTWARE ANALYST Gender Identity Female 03/27/2020 5:01 PM CDT Sexual Orientation Lesbian 03/27/2020 5: 01 PM CDT documented as of this encounter Last Filed Vital Signs Vital Sign Reading Time Taken Comments Blood Pressure 130/76 09/28/2021 9:42 AM SENIOR SOFTWARE ANALYST Pulse 71 09/28/2021 9:42 AM SENIOR SOFTWARE ANALYST Temperature 36.4 ??C (97.5 ??F) 09/28/2021 9:42 AM CS T Respiratory Rate 18 09/28/2021 9:42 AM SENIOR SOFTWARE ANALYST Oxygen Saturation 97% 09/28/2021 9:42 AM SENIOR SOFTWARE ANALYST Inhaled Oxygen Concentration - - Weight 87.5 kg (193 lb) 09/28/2021 9:42 AM SENIOR SOFTWARE ANALYST Height 167.6 cm (5' 6 ) 09/28/2021 9:42 AM SENIOR SOFTWARE ANALYST Body Mass Index 31.15 09/28/2021 9:42 AM SENIOR SOFTWARE ANALYST documented in this encounter Ordered Prescriptions Prescription [...] condition acute and resolved. get ua from [facility] Orders: - POCT urinalysis dipstick - Urinalysis reflex to microscopic; Future Mild intermittent asthma without complication (J45.20) Comments: conditon chronic and at goal continue aleksandra inhaler Gastroesophageal reflux disease with esophagitis without hemorrhage (K21.00) Comments: conditon chroicn and at goal continue the protonix Benign essential HTN (I10) Comments: conditon chroinc and at goal continuet he metoprolol xl. Brijesh Lynch MD OR SOFTWARE ANALYST documented in this encounter Plan of Treatment Not on file documented as of this encounter Procedures Procedure Name Priority Date/Time Associated Diagnosis Comments POCT URINALYSIS DIPSTICK Routine 09/28/2021 9:51 AM SENIOR SOFTWARE ANALYST Dysuria documented in this encounter Results * (ABNORMAL) POCT urinalysis dipstick (09/28/2021 9:51 AM SENIOR SOFTWARE ANALYST) Color, Urine, POC Yellow Clarity, ur, POC Clear Clear Glucose, ur, POC Negative Negative mg/dL Bilirubin, ur, POC Negative Negative, Small, Moderate, Large Ketones, ur, POC Negative Negative Specific [place], POC 1.025 1.005 - 1.030 Blood, ur, POC Negative Negative pH, ur, POC 60.0(A) 5.0 - 8.0 Protein, ur, POC Negative Negative Urobilinogen, urine, POC 0.2 0.2 - 1.0 mg/dL Nitrite, ur, POC Negative Negative Leukocytes, ur, POC Negative Negative Lot Number [id number] Urine 09/28/2021 9:51 AM SENIOR SOFTWARE ANALYST Brijesh Lynch MD POINT OF CARE TEST [...] documented as of this encounter Care Teams Dial Painter Relationship Specialty Start Date End Date Angeles Hernandez MD [address] [place] [address] Referring Physician Gynecology 07/21/21 documented as of this encounter
--- OUTSIDE RECORDS SUMMARY | 2024-09-03 20:02 | XMS_ITS | Encounter Summary ---
Author Organization [facility] Healthcare Address [address] [place] [address] Care Team Providers Care Electric Freight Car Operator Name Role Phone Angeles Hernandez MD Unavailable [phone] Reason for Referral * MRI/CAT/PET Scan (Routine) - Closed Specialty Diagnoses / Procedures [facility]erred To Contact Radiology Diagnoses Family history of breast cancer Atypical lobular hyperplasia (ALH) of left breast Procedures MRI Breast Bilateral W WO Contrast Rachel Kay MD [address] [facility] [place] [address] Phone: tel: fax: [address] [phone] Referral ID Status Reason Start Date Expiration Date Visits Re quested Visits Authorized [id number] Closed 09/24/2021 12/24/2021 1 1 NDER OPERATOR HELPER Reason for Visit * MRI/CAT/PET Scan (Routine) - Closed Specialty Diagnoses / Procedures [facility] Referred To Contact Radiology Diagnoses Family history of breast cancer Atypical lobular hyperplasia (ALH) of left breast Procedures MRI Breast Bilateral W WO Contrast Rachel Kay MD [address] [place] [address] Phone: tel: fax: [address] [phone] Referral ID Status Reason Start Date Expiration Date Visits Re quested Visits Authorized [id number] Closed 09/24/2021 12/24/2021 1 1 Encounter Details Date Type Department Care Team (Latest Contact Info) Description 10/06/2021 8:30 AM CALENDER OPERATOR HELPER - 10/06/2021 11:59 PM CALENDER OPERATOR HELPER Hospital Encounter [address] [address] Family history of breast cancer; Atypical lobular [...] on file Legal Sex Female 2:59 PM CALENDER OPERATOR HELPER Gender Identity Female 03/27/2020 5:01 [...] Read Routine (OP Routine) 10/06/2021 10:00 AM CALENDER OPERATOR HELPER Family history of breast cancer Atypical lobular hyperplasia (ALH) of left breast documented in this encounter Results * MRI Breast Bilateral W WO Contrast (10/06/2021 10:00 AM CALENDER OPERATOR HELPER) Anatomical Region Laterality Modality Breast Bilateral Magnetic Resonan ce 10/06/2021 10:1 9 AM CALENDER OPERATOR HELPER Narrative 10/06/2021 12:30 PM CALENDER OPERATOR HELPER EXAM DESCRIPTION: ?? MRI BREAST BILATERAL W [...] coil. The images were reviewed on an [employer] work station and underwent CAD analysis. FINDINGS: [...] PM T: ??10/06/2021 12:30 PM Report ID: [id number] Reading Location: ??MAMMMHE Rachel Kay MD IMG [...] 1 dose Contrast Given 10/06/2021 9:24 AM CALENDER OPERATOR HELPER 17 mL Right Antecubital documented in this encounter Orders Medications Ordered That Sarabjit ht Not Have Been Administered Count Last Ordered Date First Ordered Date gadoterate meglumine (DOTARE M) 0.5 mmol/mL injection 20 mL 1 10/06/2021 documented in this encounter Care Teams Electric Freight Car Operator Relationship Specialty Start Date End Date Angeles Hernandez MD [address] [id number] Referring Physician Gynecology 07/21/21 documented as of this encounter
--- OUTSIDE RECORDS SUMMARY | 2024-09-03 20:02 | XMS_ITS | Encounter Summary ---
Author Organization [facility] Medical Group Address [address] [facility] [address] [place] [address] Care Team Providers Care Drill Press Operator For Metal Name Role Phone Angeles Hernandez MD Unavailable [phone] Reason for Referral * MRI/CAT/PET Scan (Routine) - Closed Specialty Diagnoses / Procedures Referred By Sharlene angulo Referred To Contact Radiology Diagnoses Periumbilical abdominal pain Diarrhea, unspecified type Procedures CT Abdomen Pelvis W Contrast Jeff Guzman PA Phone: tel: fax: [address] [phone] Referral ID Status Reason Start Date Expiration Date Visits Re quested Visits Authorized [id number] Closed 11/19/2021 02/17/2022 1 1 * Diagnostic Imaging (Routine) - Closed Specialty Diagnoses / Procedures Referred By Sharlene angulo Referred To Contact Diagnoses Chronic pain of right knee Procedures XR Knee Right 4+ Vw Jeff Guzman PA Phone: tel: fax: [address] [address] Referral ID Status Reason Start Date Expiration Date Visits Re quested Visits Authorized [id number] Closed 11/18/2021 12/18/2022 1 1 Reason for Visit * Reason Comments Follow-up Lesion on back,pain in her right leg Encounter Details Date Type Department Care Team ([facility] Contact Info) Description 11/18/2021 9:45 AM CDT Office Visit [facility] Medical Group Family Medicine [address] [place] [address] Jeff Guzman, PA [address] [place] [address] Muscle cramps (Primary Dx); Chronic pain of [...] on file 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 PS T: Report ID: [id number] Reading Location: [place] [address] Jeff CASTELLON IMG XR PROCEDURES Final Result * (ABNORMAL) Comprehensive metabolic panel (11/18/2021 12:39 PM CDT) Sodium 141 135 - 145 mmol/L [facility] Potassium, pl 4.0 3.3 - 4.9 mmol/L [facility] Chloride 104 97 - 110 mmol/L [facility] CO2 24 22 - 32 mmol/L [facility] Anion gap 13 2 - 15 mmol/L [facility] BUN 16 8 - 25 mg/dL [facility] Creatinine 0.60 0.60 - 1.10 mg/dL [facility] Glucose 112 70 - 199 mg/dL [facility] Comment: Interpretive Data Fasting glucose >/= [...] 2017. Calcium 9.8 8.5 - 10.3 mg/dL [facility] Bilirubin, total 0.8 0.1 - 1.2 mg/dL [facility] Protein, pl 7.4 6.5 - 8.5 g/dL [facility] Albumin 4.6 3.5 - 5.0 g/dL [facility] Alk phos 151(H) 40 - 130 Units/L [facility] ALT 88(H) 7 - 45 Units/L [facility] AST 87(H) 10 - 45 Units/L [facility] Blood 11/18/2021 12:3 9 PM CDT 11/18/2021 12:40 PM CDT Jeff CASTELLON LAB BLOOD ORDERABLES Final Resu lt Performing Organization Address City/[facility] Co de Phone Number [facility] [address] [place] [address] * CBC with auto differential (11/18/2021 12:39 PM CDT) WBC 7.3 3.8 - 9.9 K/cumm [facility] Hgb 14.7 11.9 - 15.5 g/dL [facility] Hct 44.5 35.6 - 45.5 % [facility] Plt 267 150 - 400 K/cumm [facility] MPV 9.3 9.1 - 12.3 fL [facility] RBC 4.92 3.90 - 5.20 M/cumm [facility] MCV 90.4 81.3 - 96.4 fL [facility] MCH 29.9 27.1 - 33.3 pg [facility] MCHC 33.0 32.3 - 35.7 g/dL [facility] RDW CV 13.4 11.1 - 14.9 % [facility] RDW SD 44.3 35.7 - 48.1 fL [facility] NRBC abs 0.00 0.00 - 0.01 K/cumm [facility] Blood 11/18/2021 12:3 9 PM CDT 11/18/2021 12:40 PM CDT Jeff CASTELLON LAB BLOOD ORDERABLES Final Resu lt Performing Organization Address City/[facility]/ZIP Co de Phone Number [address] [place] [address] * TSH (11/18/2021 12:39 PM CDT) Thyroid Stimulating Hormone 0.61 0.30 - 4.20 mcIUnit/mL [facility] Blood 11/18/2021 12:3 9 PM CDT 11/18/2021 12:40 PM CDT us Jeff CASTELLON LAB BLOOD ORDERABLES Final Resu lt Performing Organization Address City/[facility] Co de Phone Number SHELBY [address] [address] * Magnesium (11/18/2021 12:39 PM CDT) Magnesium 2.0 1.4 - 2.5 mg/dL [facility] Blood 11/18/2021 12:3 9 PM CDT 11/18/2021 12:40 PM CDT us Jeff CASTELLON LAB BLOOD ORDERABLES Final Resu lt Performing Organization Address [facility] Co de Phone Number [address] [address] documented in this encounter Visit Diagnoses Diagnosis [...] type documented in this encounter Care Teams Drill Press Operator For Metal Relationship Specialty Start Date End Date Angeles Hernandez MD [address] [place] [address] Referring Physician Gynecology 07/21/21 documented as of this encounter
--- OUTSIDE RECORDS SUMMARY | 2024-09-03 20:02 | XMS_ITS | Encounter Summary ---
Author Organization [facility] Healthcare Address [address] [place] [address] Care Team Providers Care Brine Room Laborer Name Role Phone Angeles Hernandez MD Unavailable [phone] Encounter Details Date Type Department Care Team ([facility] st Contact Info) Description 09/28/2021 10:55 AM HOME ASSESSMENT NURSE Lab [facility] Lab [address] [place] [address] Dysuria; Hypercholesteremia Social History Tobacco Use Types [...] file Legal Sex Female 2:59 PM HOME ASSESSMENT NURSE Gender Identity Female 03/27/2020 5:01 PM CDT Sexual Orientation Lesbian 03/27/2020 5: 01 PM CDT documented as of this encounter Plan of Treatment Pending Results Name Type Priority Associated Diagnoses Date /Time Urinalysis reflex to microscopic Lab Routine Dysuria 09/28/2021 11:02 AM HOME ASSESSMENT NURSE documented as of this encounter Visit Diagnoses Diagnosis Dysuria Hypercholesteremia Pure hypercholesterolemia documented in this encounter Care Teams Brine Room Laborer Relationship Specialty Start Date End Date Angeles Hernandez MD [address] [address] Referring Physician Gynecology 07/21/21 documented as of this encounter
--- OUTSIDE RECORDS SUMMARY | 2024-09-03 20:02 | XMS_ITS | Encounter Summary ---
Author Organization [facility] Healthcare Address [address] [place] [address] Care Team Providers Care Care Provider Name Role Phone Angeles Hernandez MD Unavailable [phone] Reason for Referral * Sleep Medicine (Routine) - Closed Specialty Diagnoses / Procedures Referred By Sharlene angulo Referred To Contact Diagnoses Snoring Abnormal leg movement Fatigue, unspecified type Psychophysiological insomnia Essential hypertension Anxiety Nonsmoker Overweight Procedures Portable/Home Sleep Study Teddy Amos MD Phone: tel: fax: [address] [address] Referral ID Status Reason Start Date Expiration Date Visits Re quested Visits Authorized [id number] Closed 08/12/2021 09/11/2022 1 1 SPORTATION AIDE Reason for Visit * Sleep Medicine (Routine) - Closed Specialty Diagnoses / Procedures Referred By Sharlene angulo Referred To Contact Diagnoses Snoring Abnormal leg movement Fatigue, unspecified type Psychophysiological insomnia Essential hypertension Anxiety Nonsmoker Overweight Procedures Portable/Home Sleep Study Teddy Amos MD Phone: tel: fax: [address] [address] Referral ID Status Reason Start Date Expiration Date Visits Re quested Visits Authorized [id number] Closed 08/12/2021 09/11/2022 1 1 Encounter Details Date Type Department Care Team (Latest Contact Info) Description 09/07/2021 8:59 AM TRANSPORTATION AIDE - 09/07/2021 11:59 PM TRANSPORTATION AIDE Hospital Encounter [facility] Sleep Lab [address] [place] [address] Snoring; Abnormal leg movement; Fatigue, unspecified type; [...] file Legal Sex Female 2:59 PM TRANSPORTATION AIDE Gender Identity Female 03/27/2020 5:01 PM [...] PORTABLE/HOME SLEEP STUDY Routine 09/07/2021 8:59 AM TRANSPORTATION AIDE Snoring Abnormal leg movement Fatigue, unspecified type Psychophysiological insomnia Essential hypertension Anxiety Nonsmoker Overweight documented in this encounter Results * Portable/Home Sleep Study (09/07/2021 8:59 AM TRANSPORTATION AIDE) us Teddy Amos MD SLEEP CENTER ORDERABLES Fin al Result Performing Organization Address City/State/[facility] Co de Phone Number [facility] SLEEP [facility]IC[facility] [address] [place] [address] documented in this encounter Visit Diagnoses Diagnosis Snoring Other dyspnea and respiratory abnormality Abnormal leg movement Fatigue, unspecified type Psychophysiological insomnia Persistent disorder of initiating or maintaining sleep Essential hypertension Unspecified essential hypertension Anxiety Anxiety state, unspecified Nonsmoker Other specified conditions influencing health status Overweight documented in this encounter Care Teams Care Provider Relationship Specialty Start Date End Date Angeles Hernandez MD [address] [address] Referring Physician Gynecology 07/21/21 documented as of this encounter
--- OUTSIDE RECORDS SUMMARY | 2024-09-03 20:02 | XMS_ITS | Encounter Summary ---
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
--- OUTSIDE RECORDS SUMMARY | 2024-09-03 20:02 | XMS_ITS | Encounter Summary ---
Author Organization [facility] Address [address] [place] [address] Phone Care Team Providers Care Engine Room Operator Name Role Phone Angeles Hernandez MD Unavailable [phone] Encounter Details Date Type Department Care Team (Late st Contact Info) Description 09/18/2021 Orders Only [facility] Oncology [address] [facility] [address] [place] [address] BelfonteRachel MD [address] [place] [address] Family history of breast cancer (Primary Dx) [...] on file Legal Sex Female 2:59 PM PRINT SUPPORT SPECIALIST Gender Identity Female 03/27/2020 5:01 PM CDT Sexual Orientation Lesbian 03/27/2020 5: 01 PM CDT documented as of this encounter Plan of Treatment Not on file documented as of this encounter Visit Diagnoses Diagnosis Family history of breast cancer- Primary Family history of malignant neoplasm of breast documented in this encounter Care Teams Engine Room Operator Relationship Specialty Start Date End Date Angeles Hernandez MD [address] [place] [address] Referring Physician Gynecology 07/21/21 documented as of this encounter
--- OUTSIDE RECORDS SUMMARY | 2024-09-03 20:02 | XMS_ITS | Encounter Summary ---
Author Organization [facility] Address [address] [place] [address] Phone Care Team Providers Care Broadcast Chief Engineer Name Role Phone Angeles Hernandez MD Unavailable [phone] Reason for Referral * Diagnostic Imaging (Routine) - Closed Specialty Diagnoses / Procedures Referred By Contac t Referred To Contact Diagnoses Family history of breast cancer Breast cancer screening, high risk patient Procedures Screening Mammogram Bilateral W Darren Rachel Kay MD [address] [place] [address] Phone: tel: fax: [address] [phone] Referral ID Status Reason Start Date Expiration Date Visits Re quested Visits Authorized [id number] Closed 08/05/2021 09/04/2022 1 1 K AND FIELD COACH * MRI/CAT/PET Scan (Routine) - Closed Specialty Diagnoses / Procedures Referred By Contac t Referred To Contact Radiology Diagnoses Family history of breast cancer Atypical lobular hyperplasia (ALH) of left breast Procedures MRI Breast Bilateral W WO Contrast Rachel Kay MD [address] [place] [address] Phone: tel: fax: [address] [address] Referral ID Status Reason Start Date Expiration Date Visits Re quested Visits Authorized [id number] Closed 09/24/2021 12/24/2021 1 1 K AND FIELD COACH Reason for Visit * Reason Comments Consult * Consultation (Routine) - Closed Specialty Diagnoses / Procedures Referred By Contac t Referred To Contact Oncology Diagnoses History of breast cancer Angeles Hernandez MD [address] [facility] [address] [place] [address] Phone: tel: fax: Rachel Kay MD Phone: tel: fax: Referral ID Status Reason Start Date Expiration Date V isits Requested Visits Authorized [id number] Closed Specialty Services Required 07/06/2021 08/05/2022 99 99 Encounter Details Date Type Department Care Team (Latest Contact Info) Description 08/05/2021 1:00 PM TRACK AND FIELD COACH Office Visit [facility] [address] [place] [address] [address] [place] [address] Rachel Kay MD [address] [facility] [address] [place] [address] Family history of breast cancer (Primary Dx); [...] on file Legal Sex Female 2:59 PM TRACK AND FIELD COACH Gender Identity Female 03/27/2020 5:01 PM CDT Sexual Orientation Lesbian 03/27/2020 5: 01 PM CDT documented as of this encounter Last Filed Vital Signs Vital Sign Reading Time Taken Comments Blood Pressure 126/73 08/05/2021 12:57 PM TRACK AND FIELD COACH Pulse 46 08/05/2021 12:57 PM TRACK AND FIELD COACH Temperature 36.7 ??C (98 ??F) 08/05/2021 12: 57 PM TRACK AND FIELD COACH Respiratory Rate 16 08/05/2021 12:5 7 PM TRACK AND FIELD COACH Oxygen Saturation 98% 08/05/2021 12: 57 PM TRACK AND FIELD COACH Inhaled Oxygen Concentration - - Weight 89.3 kg (196 lb 12.8 oz) 021 12:57 PM TRACK AND FIELD COACH Height 167.6 cm (5' 6 ) 08/05/2021 12:5 7 PM TRACK AND FIELD COACH Body Mass Index 31.76 08/05/2021 12:57 PM TRACK AND FIELD COACH documented in this encounter Ordered Prescriptions Prescription [...] In the past she was followed at [facility] for high risk status. Her a clinic [...] breast biopsies (left axillary benign lymph nodes, [facility] 01/2013) Past medical history: Patient Active Problem [...] Diagnosis Date ??? Asthma ??? Brain concussion [id number] ??? Depression 2453215 ??? Epiretinal membrane (ERM), bilateral ??? GERD (gastroesophageal reflux disease) ??? Hypercholesteremia ??? Hypertension ??? Irritable bowel syndrome ??? Kidney stone 618713 ??? Menstrual problem 746583 ??? Migraines 569380 ??? Peptic ulceration 0101?? 1 Past surgical history: Past Surgical History: Procedure Laterality Date ??? APPENDECTOMY ??? BREAST SURGERY ??? CATARACT EXTRACTION 907659 ??? CHOLECYSTECTOMY 013277 ??? COLON SURGERY 609023 ??? COLONOSCOPY ??? DILATION AND CURETTAGE OF [...] cancer . Maternal ethnicity: ; no Ashkenazi Buddhism. Paternal ethnicity: [place] Scanned pedigree 08/05/2021 Review [...] imaging ?? Breast MRI 12/16/2012 done at [facility] and showing bilateral masses. Comparison to [...] underwent excision--results below. ?? Screening mammography at [facility] 07/06/16, BI-RADS 2 for bilateral masses. Scattered fibroglandular densities. ??? bilateral screening mammography 12/10/20 at [facility]. BI-RADS 2. No priors were available. Multiple bilateral masses c/w a benign entity were noted. Genetic testing: Other imaging reports and data reviewed: ??? Office records from [facility] in Care Everywhere and scanned 07/05/16 [...] *Recent D&C benign *Followed by ophthalmology at [facility] Exemestane and anastrozole ??? Aromatase inhibitorsPostmenopausal [...] a FDR with pancreatic cancer. We sent [employer] Multi-Cancer panel today. We discussed all of [...] on test results, I may want another sjuk-mr-yhrt conversation with the patient. I mayalso ask [...] usually covered by insurance. If not, the chr-rl-gvtahx depends on the lab policy, insurance deductible, etc. With [employer] and [employer], patients are contacted withan expected ypk-hh-fjhmxl cost; most patients pay $100 or less. For patients with high expected cen-tt-lwqkle cost, a $250 jackson option is available. It is important to respond to company communications within the required time frame to prevent higher cjy-oh-costlx costs. [facility] contacts patients with any expected mjd-as-tlwyus cost and obtains patient permission prior to [...] services. Rachel Kay MD, FACS Medical Oncology [facility] Addendum Genetic testing, specifically [employer] Multi-Cancer panel, revealed 2 VUSs: PTCH1 c.134C>G (p.[id number]) and SMARCA4 c.[id number] (intronic). I notified her of rosa Ly and will mail a copy to her with a summary letter, available in her chart. I notified her of these results by when the preliminary report was available. K AND FIELD COACH K AND FIELD COACH documented in this encounter Plan of Treatment [...] CDT EXAMINATION: BILATERAL SCREENING MAMMOGRAM COMPARISON: 12/10/2020 [facility] TECHNIQUE: Full-field 2D and [...] Bilateral W WO Contrast (10/06/2021 10:00 AM TRACK AND FIELD COACH) Anatomical Region Laterality Modality Breast Bilateral Magnetic Resonan ce 10/06/2021 10:1 9 AM TRACK AND FIELD COACH Narrative 10/06/2021 12:30 PM TRACK AND FIELD COACH EXAM DESCRIPTION: ?? MRI BREAST BILATERAL W [...] coil. The images were reviewed on an [employer] work station and underwent CAD analysis. FINDINGS: [...] PM T: ??10/06/2021 12:30 PM Report ID: [id number] Reading [facility] Rachel Kay MD IM MRI PROCEDURES Final [...] patient documented in this encounter Care Teams Broadcast Chief Engineer Relationship Specialty Start Date End Date Angeles Hernandez MD [address] [address] Referring Physician Gynecology 07/21/21 documented as of this encounter
--- OUTSIDE RECORDS SUMMARY | 2024-09-03 20:02 | XMS_ITS | Encounter Summary ---
Author Organization [facility] Address [address] [place] [address] Phone Care Team Providers Care Car Wash Attendant Name Role Phone Angeles Hernandez MD Unavailable [phone] Jeff Guzman Primary Care Provider [phone] Ramonita Crawford NP Primary Care Provider [phone] Encounter Details Date Type Department Care Team [...] on file Legal Sex Female 2:59 PM VE TEACHER Gender Identity Female 03/27/2020 5:01 PM [...] filedocumented in this encounter Care Teams Car Wash Attendant Relationship Specialty Start Date End Date Jeff Guzman PA [address] [place] [address] PCP - General Family Medicine 06/21/22 02/17/23 Ramonita Crawford NP [address] [address] PCP - General Family Medicine 02/18/23 Angeles Hernandez MD [address] [place], [place] [address] Referring Physician Gynecology 07/21/21 documented as of this encounter
--- OUTSIDE RECORDS SUMMARY | 2024-09-03 20:02 | XMS_ITS | Encounter Summary ---
Author Organization [facility] Address [address] [facility] [address] [place] [address] Care Team Providers Care Kiln Worker Name Role Phone Angeles Hernandez MD Unavailable [phone] Reason for Visit * Reason Onset Date Comments Call Back 10/12/2021 Lab error Encounter Details Date Type Department Care Team ([facility] st Contact Info) Description 10/12/2021 Telephone [facility] Family Medicine [address] [place] [address] Brijesh Lynch MD [address] [place] [address] Call Back (Lab error/) Social History Tobacco [...] on file Legal Sex Female 2:59 PM ABSORPTION PLANT OPERATOR Gender Identity Female 03/27/2020 5:01 PM [...] is. lvmtcb for pt @ 305 pm RPTION PLANT OPERATOR RPTION PLANT OPERATOR documented in this encounter Plan of Treatment Not on file documented as of this encounter Visit Diagnoses Not on filedocumented in this encounter Care Teams Kiln Worker Relationship Specialty Start Date End Date Angeles Hernandez MD [address] [address] Referring Physician Gynecology 07/21/21 documented as of this encounter
--- OUTSIDE RECORDS SUMMARY | 2024-09-03 20:02 | XMS_ITS | Encounter Summary ---
Author Organization [facility] Address [address] [facility] [address] [place] [address] Care Team Providers Care Mobile Plant Operators Name Role Phone Angeles Hernandez MD Unavailable [phone] Reason for Referral * Diagnostic Imaging (Routine) - Closed Specialty Diagnoses / Procedures Referred By Contac t Referred To Contact Diagnoses Right calf pain Procedures US VEIN DUPLEX LOWER EXTREMITY RIGHT LIMITED, UNILATERAL Jeff Guzman PA Phone: tel: fax: [facility] [address] [place] [address] Referral ID Status Reason Start Date Expiration Date Visits Re quested Visits Authorized [id number] Closed 10/27/2021 11/26/2022 1 1 MAINTENANCE TECHNICIAN Reason for Visit * Reason Comments Headache SAAB & dizziness today Knee Pain R knee pain Encounter Details Date Type Department Care Team (Late st Contact Info) Description 10/27/2021 9:30 AM PC MAINTENANCE TECHNICIAN Office Visit [facility] Family Medicine [address] [place] [address] Jeff Guzman PA [address] [id number] Right calf pain (Primary Dx); Acute non-recurrent [...] on file Legal Sex Female 2:59 PM PC MAINTENANCE TECHNICIAN Gender Identity Female 03/27/2020 5:01 PM CDT Sexual Orientation Lesbian 03/27/2020 5: 01 PM CDT documented as of this encounter Last Filed Vital Signs Vital Sign Reading Time Taken Comments Blood Pressure 118/80 10/27/2021 9:40 AM PC MAINTENANCE TECHNICIAN Pulse 82 10/27/2021 9:40 AM PC MAINTENANCE TECHNICIAN Temperature - - Respiratory Rate 20 10/27/2021 9:40 AM PC MAINTENANCE TECHNICIAN Oxygen Saturation 97% 10/27/2021 9:40 AM PC MAINTENANCE TECHNICIAN Inhaled Oxygen Concentration - - Weight 83.9 kg (185 lb) 10/27/2021 9:40 AM PC MAINTENANCE TECHNICIAN Height 167.6 cm (5' 5.98 ) 10/27/2021 9:40 AM CS T Body Mass Index 29.87 10/27/2021 9:40 AM PC MAINTENANCE TECHNICIAN documented in this encounter Ordered Prescriptions Prescription [...] in 2weeks at f/u appt Sacroiliitis (CMS/HCC) ([facility]) (M46.1) Comments: start naproxen 500mg bid prn for pain # 28 start mdp Orders: - naproxen (NAPROSYN) 500 mg tablet; Take 1 tablet (500 mg total) by mouth 2 (two) times a day as needed for pain (pain) - methylPREDNISolone (MEDROL DOSEPACK) 4 mg Dosepack; Take as directed on package. CANDE Du MAINTENANCE TECHNICIAN documented in this encounter Miscellaneous Notes * Addendum Note - Dot Herbert MA - 10/27/2021 9:30 AM CSTAddended by: DOT HERBERT on: 10/27/2021 11:04 AM Modules accepted: Orders MAINTENANCE TECHNICIAN documented in this encounter Plan of Treatment Not on file documented as of this encounter Results * US VEIN DUPLEX LOWER EXTREMITY RIGHT LIMITED, UNILATERAL (10/27/2021 1:14 PM PC MAINTENANCE TECHNICIAN) Anatomical Region Laterality Modality Vascular Right Ultrasound 10/27/2021 Narrative 10/28/2021 7:13 AM PC MAINTENANCE TECHNICIAN [employer] Job ID: [id number] [employer] Document ID: [id number] Dictated date/time: [id number] REASON Pain right calf. No thrombus seen in the right common femoral, superficial femoral, popliteal, posterior tibial, peroneal, or greater saphenous veins. IMPRESSION No evidence of deep venous thrombosis right lower extremity. JOB ID/VF JOB ID: ??[id number] us Jeff CASTELLON IMDaryl US PROCEDURES Final [...] 05/11/2022 added in this encounter Care Teams Mobile Plant Operators Relationship Specialty Start Date End Date Angeles Hernandez MD [address] [address] Referring Physician Gynecology 07/21/21 documented as of this encounter
--- OUTSIDE RECORDS SUMMARY | 2024-09-03 20:02 | XMS_ITS | Encounter Summary ---
Author Organization [facility] Address [address] [facility] [address] [place] [address] Care Team Providers Care Learning And Development Administrator Name Role Phone Angeles Hernandez MD Unavailable [phone] Jeff Guzman Primary Care Provider [phone] Encounter Details Date Type Department Care Team (Late st Contact Info) Description 10/19/2021 Orders Only [facility] Health Information Management [address] [place] [address] Scanning, Provider Social History Tobacco Use Types [...] on file Legal Sex Female 2:59 PM AUGER MILL OPERATOR Gender Identity Female 03/27/2020 5:01 PM [...] on filedocumented in this encounter Care Teams Learning And Development Administrator Relationship Specialty Start Date End Date Jeff Guzman PA [address] [place], [place] [address] PCP - General Family Medicine 06/21/22 02/17/23 Angeles Hernandez MD [address] [place] [address] Referring Physician Gynecology 07/21/21 documented as of this encounter
--- OUTSIDE RECORDS SUMMARY | 2024-09-03 20:02 | XMS_ITS | Encounter Summary ---
Author Organization [facility] Address [address] [place] [address] Phone Care Team Providers Care Landfill Gas Collection System Operator Name Role Phone Angeles Hernandez MD Unavailable [phone] Jeff Guzman Primary Care Provider [phone] Ramonita Crawford NP Primary Care Provider Encounter Details Date Type [...] on file Legal Sex Female 2:59 PM AUTOMOTIVE SERVICES MANAGER Gender Identity Female 03/27/2020 5:01 PM [...] on filedocumented in this encounter Care Teams Landfill Gas Collection System Operator Relationship Specialty Start Date End Date Jeff Guzman PA [address] [place], [place] [address] PCP - General Family Medicine 06/21/22 02/17/23 Ramonita Crawford NP [address] [address] PCP - General Family Medicine 02/18/23 Angeles Hernandez MD [address] [place] [address] Referring Physician Gynecology 07/21/21 documented as of this encounter
--- OUTSIDE RECORDS SUMMARY | 2024-09-03 20:02 | XMS_ITS | Encounter Summary ---
Author Organization [facility] Address [address] [place] [address] Phone Care Team Providers Care Nurse Monitoring Name Role Phone Angeles Hernandez MD Unavailable [phone] Jeff Guzman Primary Care Provider [phone] aRmonita Crawford NP Primary Care Provider [phone] Encounter Details Date Type Department Care Team [...] on file Legal Sex Female 2:59 PM ROLLER SKATE ASSEMBLER Gender Identity Female 03/27/2020 5:01 PM [...] on filedocumented in this encounter Care Teams Nurse Monitoring Relationship Specialty Start Date End Date Jeff Guzman PA [address] [place] [address] PCP - General Family Medicine 06/21/22 02/17/23 Ramonita Crawford NP [address] [address] PCP - General Family Medicine 02/18/23 Angeles Hernandez MD [address] [place] [address] Referring Physician Gynecology 07/21/21 documented as of this encounter
--- OUTSIDE RECORDS SUMMARY | 2024-09-03 20:02 | XMS_ITS | Encounter Summary ---
Author Organization [facility] Address [address] [facility] [address] [place] [address] Care Team Providers Care Pier Master Name Role Phone Angeles Hernandez MD Unavailable [phone] Reason for Visit * Reason Onset Date Comments Appointment 10/09/2021 Encounter Details Date Type Department Care Team ([facility] Contact Info) Description 10/09/2021 Telephone [facility] Pul[facility]ology [facility] [address] [address] Hannah Cali MA Appointment Social [...] on file Legal Sex Female 2:59 PM REGULATORY COMPLIANCE SPECIALIST Gender Identity Female 03/27/2020 5:01 PM CDT Sexual Orientation Lesbian 03/27/2020 5: 01 PM CDT documented as of this encounter Miscellaneous Notes * Telephone Encounter - Hannah Cali MA - 10/09/2021 10:35 AM CST Spoke with pt and she does not have her cpap machine yet. Will call back once she receives the machine. LATORY COMPLIANCE SPECIALIST documented in this encounter Plan of Treatment Not on file documented as of this encounter Visit Diagnoses Not on filedocumented in this encounter Care Teams Pier Master Relationship Specialty Start Date End Date Angeles Hernandez MD [address] [address] Referring Physician Gynecology 07/21/21 documented as of this encounter
--- OUTSIDE RECORDS SUMMARY | 2024-09-03 20:02 | XMS_ITS | Encounter Summary ---
Author Organization [facility] Address [address] [place] [address] Care Team Providers Care General Office Assistant Name Role Phone Angeles Hernandez MD Unavailable [phone] Reason for Visit * Reason Onset Date Comments Sleep study results 09/14/2021 Encounter Details Date Type Department Care Team ([facility] st Contact Info) Description 09/14/2021 Telephone [facility] [address] [place] [address] Teddy Amos MD [address] [facility] [address] [address] Sleep study results Social History Tobacco Use [...] on file Legal Sex Female 2:59 PM SAFE AND VAULT MECHANIC Gender Identity Female 03/27/2020 5:01 PM CDT Sexual Orientation Lesbian 03/27/2020 5: 01 PM CDT documented as of this encounter Miscellaneous Notes * Telephone Encounter - Susan Leal - 09/14/2021 11:19 AM CST Called patient to go over Home sleep study results. AHI 5.3. L/M to order auto cpap or to talk with doctor about her options. AND VAULT MECHANIC documented in this encounter Plan of Treatment Not on file documented as of this encounter Visit Diagnoses Not on filedocumented in this encounter Care Teams General Office Assistant Relationship Specialty Start Date End Date Angeles Hernandez MD [address] [id number] Referring Physician Gynecology 07/21/21 documented as of this encounter
--- OUTSIDE RECORDS SUMMARY | 2024-09-03 20:02 | XMS_ITS | Encounter Summary ---
Author Organization [facility] Healthcare Address [address] [place] [address] Care Team Providers Care Historical Archeologist Name Role Phone Angeles Hernandez MD Unavailable [phone] Reason for Visit * Reason Onset Date Comments No Show 08/07/2021 Encounter Details Date Type Department Care Team (Late st Contact Info) Description 08/07/2021 Documentation [facility] OP Physical Therapy [facility] [address] [address] Genny Masters, CARPET BINDER No Show Social History Tobacco Use Types [...] on file Legal Sex Female 2:59 PM PANTS BUSHELER Gender Identity Female 03/27/2020 5:01 PM CDT Sexual Orientation Lesbian 03/27/2020 5: 01 PM CDT documented as of this encounter Progress Notes * Genny Masters, CARPET BINDER - 08/07/2021 5:35 PM CST Attempted to call patient and leave a message but she did not have her mailbox set up. S BUSHELER documented in this encounter Plan of Treatment Not on file documented as of this encounter Visit Diagnoses Not on filedocumented in this encounter Care Teams Historical Archeologist Relationship Specialty Start Date End Date Angeles Hernandez MD [address] [address] Referring Physician Gynecology 07/21/21 documented as of this encounter
--- OUTSIDE RECORDS SUMMARY | 2024-09-03 20:02 | XMS_ITS | Encounter Summary ---
Author Organization [facility] Address [address] [facility] [address] [place] [address] Care Team Providers Care Feed Crusher Operator Name Role Phone Angeles Hernandez MD Unavailable [phone] Reason for Visit * Reason Comments Follow-up Essentilal HTN Infection Abscess of skin of t he abdomen Sinus Problem Ear ache UTI Pt states she only f eels pressure Encounter Details Date Type Department Care Team (Late st Contact Info) Description 10/06/2021 3:00 PM FASHION CONSULTANT SALES Office Visit [facility] Family Medicine [address] [place] [address] Jeff Guzman, PA [address] [address] Sensation of pressure in bladder area (Primary [...] on file Legal Sex Female 2:59 PM FASHION CONSULTANT SALES Gender Identity Female 03/27/2020 5:01 PM CDT Sexual Orientation Lesbian 03/27/2020 5: 01 PM CDT documented as of this encounter Last Filed Vital Signs Vital Sign Reading Time Taken Comments Blood Pressure 116/60 10/06/2021 3:59 PM FASHION CONSULTANT SALES Pulse 56 10/06/2021 3:59 PM FASHION CONSULTANT SALES Temperature 36.7 ??C (98 ??F) 10/06/2021 3:59 PM FASHION CONSULTANT SALES Respiratory Rate 18 10/06/2021 3:59 PM FASHION CONSULTANT SALES Oxygen Saturation 98% 10/06/2021 3:59 PM FASHION CONSULTANT SALES Inhaled Oxygen Concentration - - Weight 85.9 kg (189 lb 6.4 oz) 10/06/2021 3:59 P M FASHION CONSULTANT SALES Height 167.6 cm (5' 6 ) 10/06/2021 3:59 PM FASHION CONSULTANT SALES Body Mass Index 30.57 10/06/2021 3:59 PM FASHION CONSULTANT SALES documented in this encounter Ordered Prescriptions Prescription [...] healing well at this point CANDE Du ION CONSULTANT SALES documented in this encounter Miscellaneous Notes * Assessment & Plan Note - Jeff Guzman PA - 10/06/2021 4:52 PM CSTAssociated Problem(s): Hypercholesteremia Chronic condition at goal rosuvastatin has made significant reduction in LDL will continue with current regimen CK is normal. AST ALT no nd normal ION CONSULTANT SALES * Assessment & Plan Note - Jeff Guzman PA - 10/06/2021 4:49 PM CSTAssociated Problem(s): Essential hypertension Chronic condition well-controlled stable but off metoprolol due to sinus bradycardia. She is currently on Holter monitor being followed by Cardiology. ION CONSULTANT SALES documented in this encounter Plan of Treatment Not on file documented as of this encounter Procedures Procedure Name Priority Date/Time Associated Diagnosis Comments POCT URINALYSIS DIPSTICK Routine 10/06/2021 4:15 PM FASHION CONSULTANT SALES Sensation of pressure in bladder area documented in this encounter Results * POCT urinalysis dipstick (10/06/2021 4:15 PM FASHION CONSULTANT SALES) Color, Urine, POC Yellow Clarity, ur, POC Clear Clear Glucose, ur, POC Negative Negative mg/dL Bilirubin, ur, POC Negative Negative, Small, Moderate, Large Ketones, ur, POC Negative Negative Specific [place], POC 1.020 1.005 - 1.030 Blood, ur, POC Negative Negative pH, ur, POC 6.0 5.0 - 8.0 Protein, ur, POC Negative Negative Urobilinogen, urine, POC 0.6 0.2 - 1.0 mg/dL Nitrite, ur, POC Negative Negative Leukocytes, ur, POC Negative Negative Lot Number [id number] Urine 10/06/2021 4:15 PM FASHION CONSULTANT SALES Jeff CASTELLON POINT OF CARE TEST ORDERABLES [...] 05/11/2022 added in this encounter Care Teams Feed Crusher Operator Relationship Specialty Start Date End Date Angeles Hernandez MD [address] [address] Referring Physician Gynecology 07/21/21 documented as of this encounter
--- OUTSIDE RECORDS SUMMARY | 2024-09-03 20:02 | XMS_ITS | Encounter Summary ---
Author Organization [facility] Address [address] [place] [address] Phone Care Team Providers Care Control System Computer Scientist Name Role Phone Angeles Hernandez MD Unavailable [phone] Encounter Details Date Type Department Care Team (Late st Contact Info) Description 09/18/2021 Telephone [facility] Oncology [address] [facility] [address] [place] [address] Rachel Kay MD [address] [place] [address] Social History Tobacco Use Types Packs/Day Years [...] on file Legal Sex Female 2:59 PM PREFORMS LAMINATOR Gender Identity Female 03/27/2020 5:01 PM CDT Sexual Orientation Lesbian 03/27/2020 5: 01 PM CDT documented as of this encounter Miscellaneous Notes * Telephone Encounter - Rachel Kay MD - 09/30/2021 10:53 AM PREFORMS LAMINATOR error ORMS LAMINATOR documented in this encounter Plan of Treatment Not on file documented as of this encounter Visit Diagnoses Not on filedocumented in this encounter Care Teams Control System Computer Scientist Relationship Specialty Start Date End Date Angeles Hernandez MD [address] [address] Referring Physician Gynecology 07/21/21 documented as of this encounter
--- OUTSIDE RECORDS SUMMARY | 2024-09-03 20:02 | XMS_ITS | Encounter Summary ---
Author Organization [facility] Address [address] [facility] [address] [place] [address] Care Team Providers Care Tiller Worker Name Role Phone Angeles Hernandez MD Unavailable [phone] Encounter Details Date Type Department Care Team ([facility] st Contact Info) Description 09/22/2021 10:00 AM HEATING EQUIPMENT INSTALLER Procedure visit [facility] Family Medicine [address] [place] [address] Valerie Medrano PA [address] [address] Abscess of skin of abdomen (Primary Dx) [...] on file Legal Sex Female 2:59 PM HEATING EQUIPMENT INSTALLER Gender Identity Female 03/27/2020 5:01 PM [...] A&P. Pt tolerated procedure well without incident ING EQUIPMENT INSTALLER documented in this encounter Procedure Notes * Valerie Medrano PA - 09/22/2021 10:00 AM CST Procedure: I&D abscess Performed By: CANDE Jonas Valuation Consultant: CHUCKIE Robins Anesthesia: 1% lidocaine with epinephrine [...] the procedure well without incident. CANDE Jonas ING EQUIPMENT INSTALLER documented in this encounter Plan of Treatment Not on file documented as of this encounter Results * (ABNORMAL) Aerobic and anaerobic culture and gram stain Abscess Abdominal (09/22/2021 10:07 AM HEATING EQUIPMENT INSTALLER) Direct Specimen Exam Stain: Moderate polymorphonuclear leukocytes seen. No organisms seen. SHELBY VILLATORO Comment:Testing performed by : [facility], [address] [place] [address] Report Final Report: Few Staphylococcus aureus Methicillin susceptible (MSSA) by penicillin binding protein 2a (PBP2a) testing. (.) SHELBY VILLATORO Comment:Testing performed by : [facility], [address] [place]., [address] Organism STAPHYLOCOCCUS AUREUS SHELBY Abscess (Abdominal) 09/22/2021 10:07 AM HEATING EQUIPMENT INSTALLER 09/22/2021 4:08 PM HEATING EQUIPMENT INSTALLER Narrative SHELBY VILLATORO - 09/25/2021 2:17 PM HEATING EQUIPMENT INSTALLER Testing performed by [facility] Microbiology Laboratory ([phone]) Specimens submitted from normally sterile body sites [...] ATION Susceptible Valerie CASTELLON LAB MICROBIOLOGY - [facility] ORDERABLES Final Result SHELBY VILLATORO [address] [facility] Department [place] [address] documented in this encounter Visit Diagnoses Diagnosis Abscess of skin of abdomen- Primary Abscess of skin of abdomen documented in this encounter Care Teams Tiller Worker Relationship Specialty Start Date End Date David, Angeles L., MD [address] [address] Referring Physician Gynecology 07/21/21 documented as of this encounter
--- OUTSIDE RECORDS SUMMARY | 2024-09-03 20:02 | XMS_ITS | Encounter Summary ---
Author Organization [facility] Address [address] [facility] [address] [place] [address] Care Team Providers Care Cloth Checker Name Role Phone Angeles Hernandez MD Unavailable [phone] Reason for Referral * Sleep Medicine (Routine) - Closed Specialty Diagnoses / Procedures Referred By Contac t Referred To Contact Diagnoses Snoring Abnormal leg movement Fatigue, unspecified type Psychophysiological insomnia Essential hypertension Anxiety Nonsmoker Overweight Procedures Portable/Home Sleep Study Teddy Amos MD Phone: tel: fax: [address] [address] Referral ID Status Reason Start Date Expiration Date Visits Re quested Visits Authorized [id number] Closed 08/12/2021 09/11/2022 1 1 CIATE SCIENTIST Reason for Visit * Reason Comments New Patient * Consultation (Routine) - Closed Specialty Diagnoses / Procedures Referred By Contact Referred To Contact Sleep Medicine / Pulmonology Diagnoses Snoring Abnormal leg movement Jeff Guzman PA Phone: tel: fax: [facility] [address] [address] Phone: tel: fax: Referral ID Status Reason Start Date Expiration Date V isits Requested Visits Authorized [id number] Closed Specialty Services Required 07/07/2021 08/06/2022 1 1 Encounter Details Date Type Department Care Team (Late st Contact Info) Description 08/12/2021 10:00 AM ASSOCIATE SCIENTIST Office Visit [facility] Pulmonology [facility] Sleep [facility] [address] [address] Teddy Amos MD [address] [place] [address] Fatigue, unspecified type (Primary Dx); Snoring; Abnormal [...] on file Legal Sex Female 2:59 PM ASSOCIATE SCIENTIST Gender Identity Female 03/27/2020 5:01 PM CDT Sexual Orientation Lesbian 03/27/2020 5: 01 PM CDT documented as of this encounter Last Filed Vital Signs Vital Sign Reading Time Taken Comments Blood Pressure 126/84 08/12/2021 9:59 AM ASSOCIATE SCIENTIST Pulse 105 08/12/2021 9:59 AM ASSOCIATE SCIENTIST Temperature 36.6 ??C (97.8 ??F) 08/12/2021 9:59 AM CS T Respiratory Rate 18 08/12/2021 9:59 AM ASSOCIATE SCIENTIST Oxygen Saturation 99% 08/12/2021 9:59 AM ASSOCIATE SCIENTIST Inhaled Oxygen Concentration - - Weight 86.6 kg (191 lb) 08/12/2021 9:59 AM ASSOCIATE SCIENTIST Height 167.6 cm (5' 6 ) 08/12/2021 9:59 AM ASSOCIATE SCIENTIST Body Mass Index 30.83 08/12/2021 9:59 AM ASSOCIATE SCIENTIST documented in this encounter Progress Notes * [...] not exercise. She does drink caffeinatedbeverages. Her [place] sleeping score is 11/24. She lives in [place]. She lives in [facility]. She does have 3 cats [...] CREATED IN PART WITH THE ASSISTANCE OF FOCUS RESEARCH VOICE RECOGNITION SOFTWARE. WIRE COATING OPERATOR METAL VARIANCES MAY OCCUR. CIATE SCIENTIST CIATE SCIENTIST documented in this encounter Plan of Treatment Not on file documented as of this encounter Results * Portable/Home Sleep Study (09/07/2021 8:59 AM ASSOCIATE SCIENTIST) Teddy Amos MD [facility] ORDERABLES Fin al Result Performing Organization Address City/State/[facility] Co de Phone Number B SLE[facility] [address] [place] [address] documented in this encounter Visit Diagnoses Diagnosis [...] 08/12/2021 documented in this encounter Care Teams Cloth Checker Relationship Specialty Start Date End Date Angeles Hernandez MD [address] [place] [address] Referring Physician Gynecology 07/21/21 documented as of this encounter
--- OUTSIDE RECORDS SUMMARY | 2024-09-03 20:02 | XMS_ITS | Encounter Summary ---
Author Organization [facility] Address [address] [place] [address] Phone Care Team Providers Care Ornamental Metal Erector Name Role Phone Angeles Hernandez MD Unavailable [phone] Encounter Details Date Type Department Care Team (Late st Contact Info) Description 07/21/2021 Telephone [facility] Surgery [address] [facility] 5th [place] [address] [place] [address] Keyanna Pérez CPhT Social History [...] on file Legal Sex Female 2:59 PM HYDRAULIC DESIGN ENGINEER Gender Identity Female 03/27/2020 5:01 PM CDT Sexual Orientation Lesbian 03/27/2020 5: 01 PM CDT documented as of this encounter Miscellaneous Notes * Telephone Encounter - Keyanna Pérez CPhT - 07/21/2021 12:17 PM HYDRAULIC DESIGN ENGINEER Pt returned call, she will be reaching out to Dr. Rachel Kay at [place], [place] location for high risk f/u appt. Lmov re new referral. AULIC DESIGN ENGINEER AULIC DESIGN ENGINEER documented in this encounter Plan of Treatment Not on file documented as of this encounter Visit Diagnoses Not on filedocumented in this encounter Care Teams Ornamental Metal Erector Relationship Specialty Start Date End Date Angeles Hernandez MD [address] [address] Referring Physician Gynecology 07/21/21 documented as of this encounter
--- OUTSIDE RECORDS SUMMARY | 2024-09-03 20:02 | XMS_ITS | Encounter Summary ---
Author Organization [facility] Address [address] [place] [address] Care Team Providers Care Light Bulb Tester Name Role Phone Angeles Hernandez MD Unavailable [phone] Reason for Referral * Diagnostic Imaging (Routine) - Closed Specialty Diagnoses / Procedures Referred By Contac t Referred To Contact Diagnoses Right calf pain Procedures US VEIN DUPLEX LOWER EXTREMITY RIGHT LIMITED, UNILATERAL Jeff Guzman PA Phone: tel: fax: [address] [address] Referral ID Status Reason Start Date Expiration Date Visits Re quested Visits Authorized [id number] Closed 10/27/2021 11/26/2022 1 1 [employer] Reason for Visit * Diagnostic Imaging (Routine) - Closed Specialty Diagnoses / Procedures Referred By Sharlene angulo Referred To Contact Diagnoses Right calf pain Procedures US VEIN DUPLEX LOWER EXTREMITY RIGHT LIMITED, UNILATERAL Jeff Guzman PA Phone: tel: fax: [address] [address] Referral ID Status Reason Start Date Expiration Date Visits Re quested Visits Authorized [id number] Closed 10/27/2021 11/26/2022 1 1 Encounter Details Date Type Department Care Team (Latest Contact Info) Description 10/27/2021 12:49 PM [employer] - 10/27/2021 11:59 PM SUPER[employer]OR [employer] WORK[employer] Hospital Encounter [facility] Cardiac Testing [address] [place] [address] Right calf pain Discharge Disposition: Discharge to [...] file Legal Sex Female 2:59 PM SUPERVISOR PARK WORKERS Gender Identity Female 03/27/2020 5:01 PM CDT [...] (Appt Today, Awaiting Results) 10/27/2021 1:14 PM [employer] WORK[employer] Right calf pain documented in this encounter Results * US VEIN DUPLEX LOWER EXTREMITY RIGHT LIMITED, UNILATERAL (10/27/2021 1:14 PM [employer]) Anatomical Region Laterality Modality Vascular Right Ultrasound 10/27/2021 Narrative 10/28/2021 7:13 AM SUPERVISOR PARK WORKERS [employer] Job ID: [id number] [employer] Document ID: [id number] Dictated date/time: REASON Pain right calf. No thrombus seen in the right common femoral, superficial femoral, popliteal, posterior tibial, peroneal, or greater saphenous veins. IMPRESSION No evidence of deep venous thrombosis right lower extremity. JOB ID/VF JOB ID: [id number] us Jeff ABBASI US PROCEDURES Final Result documented in this encounter Visit Diagnoses Diagnosis Right calf pain documented in this encounter Care Teams Light Bulb Tester Relationship Specialty Start Date End Date Angeles Hernandez MD [address] [place] [id number] Referring Physician Gynecology 07/21/21 documented as of this encounter
--- OUTSIDE RECORDS SUMMARY | 2024-09-03 20:02 | XMS_ITS | Encounter Summary ---
Author Organization [facility] Address [address] [facility] [address] [place] [address] Care Team Providers Care Construction Project Mgr Name Role Phone Angeles Hernandez MD Unavailable [phone] Encounter Details Date Type Department Care Team ([facility] st Contact Info) Description 10/28/2021 Telephone [facility] Family Medicine [address] [place] [id number] Brijesh Lynch MD [address] [place] [address] Social History Tobacco Use Types Packs/Day Years [...] Legal Sex Female 2:59 PM DIRECTOR OF EXHIBITS Gender Identity Female 03/27/2020 5:01 PM CDT [...] added to allergy list and PCP informed CTOR OF EXHIBITS * Telephone Encounter - Dot Herbert MA [...] my chart about the med. thank you CTOR OF EXHIBITS documented in this encounter Plan of Treatment [...] documented as of this encounter Care Teams Construction Project Mgr Relationship Specialty Start Date End Date Angeles Hernandez MD [address] [place] [address] Referring Physician Gynecology 07/21/21 documented as of this encounter
--- OUTSIDE RECORDS SUMMARY | 2024-09-03 20:02 | XMS_ITS | Encounter Summary ---
Author Organization [facility] Address [address] [place] [address] Phone Care Team Providers Care Talent Assistant Name Role Phone Angeles Hernandez MD Unavailable [phone] Reason for Visit * Reason Onset Date Comments Dina CASTELLON 09/03/2021 Encounter Details Date Type Department Care Team (Late st Contact Info) Description 09/03/2021 Documentation [facility] Oncology [address] [place] [address] [place] [phone] Stacie Tyson, A Dina CASTELLON Social History [...] on file Legal Sex Female 2:59 PM NARCOTICS AND VICE DETECTIVE Gender Identity Female 03/27/2020 5:01 PM CDT Sexual Orientation Lesbian 03/27/2020 5: 01 PM CDT documented as of this encounter Progress Notes * Stacie Tyson, THAO - 09/03/2021 8:08 AM CST PA for Evista 60mg tablets has been submitted through [employer]. Waiting for response. OTICS AND VICE DETECTIVE * Stacie Tyson MA - 09/03/2021 8:08 AM CST Images from the original note were not included. PA for Evista has been approved through [employer]. OTICS AND VICE DETECTIVE documented in this encounter Plan of Treatment Not on file documented as of this encounter Visit Diagnoses Not on filedocumented in this encounter Care Teams Talent Assistant Relationship Specialty Start Date End Date Angeles Hernandez MD [address] [address] Referring Physician Gynecology 07/21/21 documented as of this encounter
--- OUTSIDE RECORDS SUMMARY | 2024-09-03 20:02 | XMS_ITS | Encounter Summary ---
Author Organization [facility] Address [address] [facility] [address] [place] [address] Care Team Providers Care Clip On Sunglasses Assembler Name Role Phone Angeles Hernandez MD Unavailable [phone] Reason for Visit * Reason Comments Diarrhea Headache Earache bilateral burning with urination sore to lower abd Encounter Details Date Type Department Care Team ([facility] st Contact Info) Description 09/22/2021 9:00 AM PARTS TECHNICIAN Office Visit [facility] Family Medicine [address] [place] [address] Brijesh Lynch MD [address] [place] [address] [address] [place] [address] Abscess of skin of abdomen (Primary Dx); [...] on file Legal Sex Female 2:59 PM PARTS TECHNICIAN Gender Identity Female 03/27/2020 5:01 PM CDT Sexual Orientation Lesbian 03/27/2020 5: 01 PM CDT documented as of this encounter Last Filed Vital Signs Vital Sign Reading Time Taken Comments Blood Pressure 142/90 09/22/2021 8:52 AM PARTS TECHNICIAN Pulse 61 09/22/2021 8:52 AM PARTS TECHNICIAN Temperature 36.7 ??C (98.1 ??F) 09/22/2021 8:52 AM CS T Respiratory Rate 18 09/22/2021 8:52 AM PARTS TECHNICIAN Oxygen Saturation 97% 09/22/2021 8:52 AM PARTS TECHNICIAN Inhaled Oxygen Concentration - - Weight 84.4 kg (186 lb) 09/22/2021 8:52 AM PARTS TECHNICIAN Height 167.6 cm (5' 6 ) 09/22/2021 8:52 AM PARTS TECHNICIAN Body Mass Index 30.02 09/22/2021 8:52 AM PARTS TECHNICIAN documented in this encounter Ordered Prescriptions [...] Comments: condition acute. clindamycin Brijesh Lynch MD S TECHNICIAN documented in this encounter Plan of Treatment Not on file documented as of this encounter Procedures Procedure Name Priority Date/Time Associated Diagnosis Comments POCT URINALYSIS DIPSTICK Routine 09/22/2021 9:16 AM PARTS TECHNICIAN Burning with urination documented in this encounter Results * (ABNORMAL) POCT urinalysis dipstick (09/22/2021 9:16 AM PARTS TECHNICIAN) Color, Urine, POC Yellow Clarity, ur, POC Cloudy(A) Clear Glucose, ur, POC Negative Negative mg/dL Bilirubin, ur, POC Negative Negative, Small, Moderate, Large Ketones, ur, POC Negative Negative Specific [place], POC 1.025 1.005 - 1.030 Blood, ur, POC Negative Negative pH, ur, POC 5.5 5.0 - 8.0 Protein, ur, POC Negative Negative Urobilinogen, urine, POC 0.2 0.2 - 1.0 mg/dL Nitrite, ur, POC Negative Negative Leukocytes, ur, POC Trace(A) Negative Lot Number [id number] Urine 09/22/2021 9:16 AM PARTS TECHNICIAN us Brijesh Lynch MD POINT OF CARE [...] non-recurrent maxillary sinusitis Given 09/22/2021 9:43 AM PARTS TECHNICIAN 40 mg Other (Comment) documented in this encounter Orders Medications Ordered That Sarabjit ht Not Have Been Administered Count Last Ordered Date First Ordered Date triamcinolone (KENALOG) 40 m g/mL injection 40 mg 1 09/22/2021 documented in this encounter Care Teams Clip On Sunglasses Assembler Relationship Specialty Start Date End Date Angeles Hernandez MD [address] [address] Referring Physician Gynecology 07/21/21 documented as of this encounter
--- OUTSIDE RECORDS SUMMARY | 2024-09-03 20:02 | XMS_ITS | Encounter Summary ---
Author Organization [facility] Address [address] [place] [address] Phone Care Team Providers Care Quantitative Developer Name Role Phone Angeles Hernandez MD Unavailable [phone] Jeff Guzman Primary Care Provider [phone] Ramonita Crawford NP Primary Care Provider [phone] Encounter Details Date Type Department Care Team [...] on file Legal Sex Female 2:59 PM DISPLAYER Gender Identity Female 03/27/2020 5:01 PM CDT [...] on filedocumented in this encounter Care Teams Quantitative Developer Relationship Specialty Start Date End Date Jeff Gzuman PA [address] [place] [address] PCP - General Family Medicine 06/21/22 02/17/23 Ramonita Crawford NP [address] [employer] [address] PCP - General Family Medicine 02/18/23 Angeles Hernandez MD [address] [place], [place] [id number] Referring Physician Gynecology 07/21/21 documented as of this encounter
--- OUTSIDE RECORDS SUMMARY | 2024-09-03 20:02 | XMS_ITS | Encounter Summary ---
Author Organization [facility] Address [address] [place] [address] Phone Care Team Providers Care Masticator Name Role Phone Angeles Hernandez MD Unavailable [phone] Jeff Guzman Primary Care Provider [phone] Ramonita Crawford NP Primary Care Provider [phone] Encounter Details Date Type Department Care Team [...] on file Legal Sex Female 2:59 PM GLAZIER STAINED GLASS Gender Identity Female 03/27/2020 5:01 PM CDT [...] on filedocumented in this encounter Care Teams Masticator Relationship Specialty Start Date End Date Jeff Guzman PA [address] [place] [address] PCP - General Family Medicine 06/21/22 02/17/23 Ramonita Crawford NP [address] [employer] [address] PCP - General Family Medicine 02/18/23 Angeles Hernandez MD [address] [place], [place] [address] Referring Physician Gynecology 07/21/21 documented as of this encounter
--- OUTSIDE RECORDS SUMMARY | 2024-09-03 20:02 | XMS_ITS | Encounter Summary ---
Author Organization [facility] Healthcare Address [address] [place] [address] Care Team Providers Care Academic Coach Name Role Phone Angeles Hernandez MD Unavailable [phone] Encounter Details Date Type Department Care Team ([facility] st Contact Info) Description 10/06/2021 9:55 AM TAR KETTLE RUNNER Lab [facility] Lab [address] [place] [address] Hypercholesteremia Social History Tobacco Use Types Packs/Day [...] on file Legal Sex Female 2:59 PM TAR KETTLE RUNNER Gender Identity Female 03/27/2020 5:01 PM CDT Sexual Orientation Lesbian 03/27/2020 5: 01 PM CDT documented as of this encounter Plan of Treatment Not on file documented as of this encounter Procedures Procedure Name Priority Date/Time Associated Diagnosis Comments CREATINE KINASE (CK), TOTAL Routine 10/06/2021 10:04 AM TAR KETTLE RUNNER Hypercholesteremia HEPATIC FUNCTION PANEL Routine 10/06/2021 10:04 AM TAR KETTLE RUNNER Hypercholesteremia LIPID PANEL Routine 10/06/2021 10:04 AM TAR KETTLE RUNNER Hypercholesteremia documented in this encounter Results * Lipid panel (10/06/2021 10:04 AM TAR KETTLE RUNNER) Cholesterol 198 30 - 199 mg/dL SHELBY [...] last revised on 2018. Testing performed by: [facility], [address] [place] [address]., [address] Triglycerides 110 <=149 mg/dL SHELBY VILLATORO Comment: [...] last revised on 2018. Testing performed by: [address] [address] HDL 95 >=40 mg/dL SHELBY Comment: Interpretive [...] last revised on 2018. Testing performed by: [address] [address] LDL, calculated 81 <=129 mg/dL SHELBY Comment: [...] last revised on 2018. Testing performed by: [address] [address] Non-HDL Cholesterol 103 mg/dL SHELBY Comment: Interpretive [...] last revised on 2018. Testing performed by: [address] [address] Chol/HDL ratio 2 SHELBY Comment:Testing performed by : [address] [address] Blood 10/06/2021 10:0 4 AM TAR KETTLE RUNNER 10/06/2021 10:41 AM TAR KETTLE RUNNER us Jeff CASTELLON LAB BLOOD ORDERABLES Final Resu lt Performing Organization Address [facility] Co de Phone Number IDNIRAPURVI [facility] [place] [address] * Creatine kinase (CK), total (10/06/2021 10:04 AM TAR KETTLE RUNNER) CK 46 30 - 200 Units/L SHELBY Comment:Testing performed by : [address] [address] Blood 10/06/2021 10:0 4 AM TAR KETTLE RUNNER 10/06/2021 10:41 AM TAR KETTLE RUNNER us Jeff CASTELLON LAB BLOOD ORDERABLES Final Resu lt Performing Organization Address City/[facility] Co de Phone Number [place] [id number] [facility] [place] [address] * (ABNORMAL) Hepatic function panel (10/06/2021 10:04 AM TAR KETTLE RUNNER) Bilirubin, total 0.4 0.1 - 1.2 mg/dL SHELBY Comment:Testing performed by : [address] [address] Bilirubin, direct <0.2 0.1 - 0.3 mg/dL SHELBY Comment:Testing performed by : [address] [address] Protein, pl 7.3 6.5 - 8.5 g/dL SHELBY Comment:Testing performed by : [address] [address] Albumin 4.2 3.5 - 5.0 g/dL SHELBY Comment:Testing performed by : [address] [address] Alk phos 160(H) 40 - 130 Units/L SHELBY Comment:Testing performed by : [address] [address] ALT 33 7 - 45 Units/L SHELBY Comment:Testing performed by : [address] [address] AST 23 10 - 45 Units/L SHELBY Comment:Testing performed by : [address] [address] Blood 10/06/2021 10:0 4 AM TAR KETTLE RUNNER 10/06/2021 10:41 AM TAR KETTLE RUNNER us Jeff CASTELLON LAB BLOOD ORDERABLES Final Resu lt SHELBY [address] [facility] Department [place] [address] documented in this encounter Visit Diagnoses Diagnosis Hypercholesteremia Pure hypercholesterolemia documented in this encounter Care Teams Academic Coach Relationship Specialty Start Date End Date Angeles Hernandez MD [address] [place] [address] Referring Physician Gynecology 07/21/21 documented as of this encounter
--- OUTSIDE RECORDS SUMMARY | 2024-09-03 20:02 | XMS_ITS | Encounter Summary ---
Author Organization [facility] Address [address] [place] [address] Phone Care Team Providers Care Rockboard Lather Name Role Phone Angeles Hernandez MD Unavailable [phone] Encounter Details Date Type Department Care Team (Late st Contact Info) Description 08/25/2021 Telephone [facility] Oncology [address] [facility] [address] [place] [address] Rachel Kay MD [address] [place] [address] Social History Tobacco Use Types Packs/Day Years [...] on file Legal Sex Female 2:59 PM JUVENILE CORRECTIONAL OFFICER Gender Identity Female 03/27/2020 5:01 PM CDT Sexual Orientation Lesbian 03/27/2020 5: 01 PM CDT documented as of this encounter Miscellaneous Notes * Telephone Encounter - Rachel Kay MD - 08/25/2021 10:19 AM JUVENILE CORRECTIONAL OFFICER Called Destini to update her on her [...] if she has any questions or concerns. NILE CORRECTIONAL OFFICER documented in this encounter Plan of Treatment Not on file documented as of this encounter Visit Diagnoses Not on filedocumented in this encounter Care Teams Rockboard Lather Relationship Specialty Start Date End Date Angeles Hernandez MD [address] [address] Referring Physician Gynecology 07/21/21 documented as of this encounter
--- OUTSIDE RECORDS SUMMARY | 2024-09-03 20:02 | XMS_ITS | Encounter Summary ---
Author Organization [facility] Healthcare Address [address] [place] [address] Care Team Providers Care Chief Engineer'S Helper Name Role Phone Angeles Hernandez MD Unavailable [phone] Encounter Details Date Type Department Care Team (Latest Contact Info) Description 09/22/2021 12:58 PM BLACK JACK DEALER - 09/22/2021 11:59 PM BLACK JACK DEALER Hospital Encounter [facility] Lab [facility] [place] [address] Abscess of skin of abdomen Discharge Disposition: [...] on file Legal Sex Female 2:59 PM BLACK JACK DEALER Gender Identity Female 03/27/2020 5:01 PM CDT [...] AND GRAM STAIN Routine 09/22/2021 10:07 AM BLACK JACK DEALER Abscess of skin of abdomen documented in this encounter Results * (ABNORMAL) Aerobic and anaerobic culture and gram stain Abscess Abdominal (09/22/2021 10:07 AM BLACK JACK DEALER) Direct Specimen Exam Stain: Moderate polymorphonuclear leukocytes seen. No organisms seen. SHELBY VILLATORO Comment:Testing performed by : [facility], [address] [place] [address], [place]., [address] Report Final Report: Few Staphylococcus aureus Methicillin susceptible (MSSA) by penicillin binding protein 2a (PBP2a) testing. (.) SHELBY Comment:Testing performed by : [facility], [address] [facility] [place]., [address] Organism STAPHYLOCOCCUS AUREUS SHELBY Abscess (Abdominal) 09/22/2021 10:07 AM BLACK JACK DEALER 09/22/2021 4:08 PM BLACK JACK DEALER Narrative SHELBY VILLATORO - 09/25/2021 2:17 PM BLACK JACK DEALER Testing performed by [facility] Microbiology Laboratory ([phone]) Specimens submitted from normally sterile body sites [...] ATION Susceptible Valerie CASTELL[facility] MICROBIOLOGY - [facility] AL ORDERABLES Final Result SHELBY [address] [facility] Department of Laboratories [place], [place] [id number] documented in this encounter Visit Diagnoses Diagnosis Abscess of skin of abdomen documented in this encounter Care Teams Chief Engineer'S Helper Relationship Specialty Start Date End Date Angeles Hernandez MD [address] [address] Referring Physician Gynecology 07/21/21 documented as of this encounter
--- OUTSIDE RECORDS SUMMARY | 2024-09-03 20:02 | XMS_ITS | Encounter Summary ---
Author Organization [facility] Address [address] [place] [address] Phone Care Team Providers Care Hog Sticker Name Role Phone Angeles Hernandez MD Unavailable [phone] Encounter Details Date Type Department Care Team (Late st Contact Info) Description 08/13/2021 Telephone [facility] Oncology [facility] [facility] [address] [place] [address] Jaja Aranda BSN Social History [...] on file Legal Sex Female 2:59 PM BATCHMAKER Gender Identity Female 03/27/2020 5:01 PM CDT Sexual Orientation Lesbian 03/27/2020 5: 01 PM CDT documented as of this encounter Miscellaneous Notes * Telephone Encounter - Jaja Aranda BSN - 08/13/2021 11:50 AM BATCHMAKER Patient scheduled mailed Attempted to call patient , NoVM set up HMAKER documented in this encounter Plan of Treatment Not on file documented as of this encounter Visit Diagnoses Not on filedocumented in this encounter Care Teams Hog Sticker Relationship Specialty Start Date End Date Angeles Hernandez MD [address] [address] Referring Physician Gynecology 07/21/21 documented as of this encounter
--- OUTSIDE RECORDS SUMMARY | 2024-09-03 20:03 | XMS_ITS | Encounter Summary ---
Author Organization [facility] Healthcare Address [address] [place] [address] Care Team Providers Care Security Investigator Name Role Phone Angeles Hernandez MD Unavailable [phone] Reason for Visit * Reason Comments PT Initial Eval * Consultation (Routine) - Closed Specialty Diagnoses / Procedures Referred By Contac t Referred To Contact Physical Therapy Diagnoses Lumbar spondylosis Thoracic spine pain Cervical spine pain Kp Guzman PA Phone: tel: fax: [facility] OP Physical Therapy [address] [place] [address] Phone: tel: fax: Referral ID Status Reason Start Date Expiration Date V isits Requested Visits Authorized [id number] Closed Specialty Services Required 07/07/2021 08/06/2022 24 24 Encounter Details Date Type Department Care Team (Late Contact Info) Description 07/21/2021 9:45 AM SPACE CONTROLLER Therapy [facility] OP Physical Therapy [address] [place] [address] Berna Kay PT Lumbar spondylosis; Thoracic spine [...] on file Legal Sex Female 2:59 PM SPACE CONTROLLER Gender Identity Female 03/27/2020 5:01 PM [...] Diagnosis Date ??? Asthma ??? Brain concussion 3622963 ??? Cataract 3216877 ??? Depression 3562481 ??? Epiretinal membrane (ERM), bilateral ??? GERD (gastroesophageal reflux disease) ??? Hypertension ??? Irritable bowel syndrome ??? Kidney stone 349543 ??? Menstrual problem 910066 ??? Migraines 039659 ??? Peptic ulceration 0101?? 1 Past Surgical History: Procedure Laterality Date ??? APPENDECTOMY ??? BREAST SURGERY ??? CATARACT EXTRACTION 011195 ??? CHOLECYSTECTOMY 078547 ??? COLON SURGERY 154425 ??? GALLBLADDER SURGERY ??? OVARY SURGERY ??? [...] from skilled therapy services. Berna Kay, PT [facility] If you are unable to electronically sign this document, please sign below to certify this plan of care/treatment plan. Thank you. Provider Signature: Date: E CONTROLLER * Berna Kay, PT - 07/21/2021 9:45 [...] be able to go back to chiropractor E CONTROLLER documented in this encounter Plan of Treatment Not on file documented as of this encounter Visit Diagnoses Diagnosis Lumbar spondylosis Lumbosacral spondylosis without myelopathy Thoracic spine pain Pain in thoracic spine Cervical spine pain documented in this encounter Orders Outpatient Referral Count Last Ordered Date Fir st Ordered Date AMB REFERRAL ORDER TO PHYSICAL THERAPY 1 documented in this encounter Care Teams Security Investigator Relationship Specialty Start Date End Date Angeles Hernandez MD [address] [place] [address] Referring Physician Gynecology 07/21/21 documented as of this encounter
--- OUTSIDE RECORDS SUMMARY | 2024-09-03 20:03 | XMS_ITS | Encounter Summary ---
Author Organization [facility] Medical Group Address [address] [address] [place] [address] Care Team Providers Care Warehouse Order Filler Name Role Phone Angeles Hernandez MD Unavailable [phone] Encounter Details Date Type Department Care Team ([facility] st Contact Info) Description 02/13/2021 Orders Only [facility] Health Information Management [address] [place] [address] Brijesh Lynch MD [address] [place] [address] Social History Tobacco Use Types Packs/Day Years [...] on file 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
--- OUTSIDE RECORDS SUMMARY | 2024-09-03 20:03 | XMS_ITS | Encounter Summary ---
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 D.O.B: 1970 ? Exam Date: 12/10/20 ?? 0852 ?? Age: 50 ?Sex: Female ? MR#: [id number] ?? Loc: ? RADIOLOGY REPORT ?? Order #[id number] ?? [facility] ? Traci Bilat Screening 3D [...] age 40, based on guidelines of the [employer] ?? [employer] (ACR Practice Parameter for the Performance of Screening and ?? Diagnostic Mammography) and [employer]st[employer]ians and ?? Gynecologists. For women with an elevated risk of breast cancer, please refer ?? to the ACR Practice Parameter for specific screening recommendations. ? The patient will be entered into a reminder system with a target due date of 1 ?? year for her next screening exam. ? Electronically signed by: ?Duane Mejía M.D. ? /:12/31/2020 15:41:53 ? Mate Chief: Inessa Collier, [facility] ?? letter sent: Normal Exam ? Reading location: ?? BI-RADS: 2 Benign ? REPORT ELECTRONICALLY SIGNED IN OTHER VENDOR SYSTEM ?? Resulting Agency Comment O Procedure Note Duane Mejía MD - 12/31/2020 Patient Name: MAX DE LA GARZA Dr: Brijesh Lynch MD D.O.B: 1970 Exam Date: 12/10/20851 Age: 50 Sex: Female MR#: [id number] Loc: RADIOLOGY REPORT Order #[id number] [facility] Traci Bilat Screening 3D [...] age 40, based on guidelines of the [employer] (ACR Practice Parameter for the Performance of Screening and Diagnostic Mammography) and [employer]ians and Gynecologists. For women with an elevated risk of breast cancer, pleaserefer to the ACR Practice Parameter for specific screening recommendations. The patient will be entered into a reminder system with a target due dateof 1 year for her next screening exam. Electronically signed by: Duane Mejía M.D., md/:12/31/2020 15:41:53 Mate Chief: Inessa Collier, [facility] letter sent: Normal Exam Reading location: BI-RADS: 2 Benign REPORT ELECTRONICALLY SIGNED IN OTHER VENDOR SYSTEM us Brijesh Lynch MD IMG MAMMO PROCEDURES Final Resu lt documented in this encounter Visit Diagnoses Not on filedocumented in this encounter
--- OUTSIDE RECORDS SUMMARY | 2024-09-03 20:03 | XMS_ITS | Encounter Summary ---
Author Organization [facility] Medical Group Address [address] [facility] [address] [place] [address] Care Team Providers Care Ops Manager Name Role Phone Unavailable Primary Care Provider Unavailabl e Reason for Visit * Reason Comments Headache Memory Loss Encounter Details Date Type Department Care Team (Latest Contact Info) Description 06/09/2021 8:45 AM CDT Office Visit [facility] Family Medicine [address] [place] [address] Jeff Guzman, CANDE [address] [place] [address] Hypercholesteremia (Primary Dx); Benign essential HTN; Drug [...] on file 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 Review of Systems Constitutional: Negative for fatigue, [...] Ragweed, short, common IgE; Future - Allergen, Turkmen cockroach; Future - Milk IgE; Future - Peanut allergen; Future - Dog dander IgE; Future - Mountain juniper IgE; Future - [place] tree IgE; Future - Pigweed, rough IgE; Future - Thistle, Sri Lankan IgE; Future - Cristino grass IgE; Future - Bermuda grass IgE; Future - Pradip, white IgE; Future - Penicillium Chrysogenum IgE; Future - Meredith IgE; Future - [place] tree IgE; Future - Pecan, tree IgE; Future - Mouse, serum proteins IgE; Future - Mucor racemosus IgE; Future - [place] IgE; Future - ARUP IgE (Allergy panels); [...] Last Ordered D ate First Ordered Date ALLERGEN,SWISS COCKROACH 1 06/09/2021 ARUP IGE (ALLERGY PANELS) 1 06/09/2021 documented in this encounter
--- OUTSIDE RECORDS SUMMARY | 2024-09-03 20:03 | XMS_ITS | Encounter Summary ---
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
--- OUTSIDE RECORDS SUMMARY | 2024-09-03 20:03 | XMS_ITS | Encounter Summary ---
Author Organization [facility] Address [address] [place] [address] Phone Care Team Providers Care Acoustical Tile Patternmaker Name Role Phone Angeles Hernandez MD Unavailable [phone] Jeff Guzman Primary Care Provider [phone] Ramonita Crawford NP Primary Care Provider [phone] Encounter Details Date Type Department Care Team [...] on file Legal Sex Female 2:59 PM ESTHETICS INSTRUCTOR Gender Identity Female 03/27/2020 5:01 PM [...] on filedocumented in this encounter Care Teams Acoustical Tile Patternmaker Relationship Specialty Start Date End Date Jeff Guzman PA [address] [place] [address] PCP - General Family Medicine 06/21/22 02/17/23 Ramonita Crawford NP [address] [facility] [address] PCP - General Family Medicine 02/18/23 Angeles Hernandez MD [address] [place], [place] [address] Referring Physician Gynecology 07/21/21 documented as of this encounter
--- OUTSIDE RECORDS SUMMARY | 2024-09-03 20:03 | XMS_ITS | Encounter Summary ---
Author Organization [facility] Medical Group Address [address] [facility] [address] [place] [address] Care Team Providers Care Band Reamer Machine Operator Name Role Phone Unavailable Primary Care Provider Unavailabl e Reason for Visit * Reason Onset Date Comments Covid-19 Home Monitoring 04/22/2021 Encounter Details Date Type Department Care Team (Late st Contact Info) Description 04/22/2021 Telephone [facility] Accountable Care Organization [address] [place] [address] Pineda Tuttle MA [address] [facility] [address] [place] [address] Covid-19 Home Monitoring Social History Tobacco Use [...] on file 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 This patient has not completed their [employer] Salesperson questionnaire and has not responded to phone [...]
--- OUTSIDE RECORDS SUMMARY | 2024-09-03 20:03 | XMS_ITS | Encounter Summary ---
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 Testing performed by: [facility], [place]., [address] Blood 06/20/2021 9:51 AM CDT 06/20/2021 12:49 PM CDT us Brijesh Lynch MD LAB BLOOD ORDERABLES Final Resu lt Performing Organization Address City/State/[facility] Co de Phone Number SHELBY [address] [facility] Department [place] [address] * (ABNORMAL) Expanded respiratory allergy profile (06/20/2021 9:51 AM CDT) Pathologist [facility] Alternaria tenius IgE <0.10 0.00 - 0.34 kUnits/L SHELBY VILLATORO Comment:Testing performed by : [place]., [address] Pradip white IgE <0.10 0.00 - 0.34 kUnits/L SHELBY VILLATORO Comment:Testing performed by : [place]., [address] Aspergillus fumigatus IgE <0.10 0.00 - 0.34 kUnits/L CERNER Comment:Testing performed by : [facility], [place]., [address] Bermuda grass IgE <0.10 0.00 - 0.34 kUnits/L CERNER Comment:Testing performed by : [facility], [place]., [address] Cat dander IgE 0.91(H) 0.00 - 0.34 kUnits/L CERNER Comment:Testing performed by : [facility], [place]., [address] Cladosporium herbarum IgE <0.10 0.00 - 0.34 kUnits/L CERNER Comment:Testing performed by : [facility], [facility], [address] Cockroach IgE <0.10 0.00 - 0.34 kUnits/L CERNER Comment:Testing performed by : [facility], [place]., [address] [place] IgE <0.10 0.00 - 0.34 kUnits/L CERNER Comment:Testing performed by : [facility], [place]., [address] Dermatophyton farinae IgE 0.33 0.00 - 0.34 kUnits/L CERNER Comment:Testing performed by : [facility], [place]., [address] Dermatophyton pteronyssinus IgE 0.28 0.00 - 0.34 kUnits/L CERNER Comment:Testing performed by : [facility], [place]., [address] Dog dander IgE 0.44(H) 0.00 - 0.34 kUnits/L CERNER Comment:Testing performed by : [facility], [facility], [address] Elm IgE <0.10 0.00 - 0.34 kUnits/L CERNER Comment:Testing performed by : [facility], [address], [place]., [address] Maple/box elder IgE <0.10 0.00 - 0.34 kUnits/L CERNER Comment:Testing performed by : [facility], [place]., [address] Mountain juniper IgE <0.10 0.00 - 0.34 kUnits/L CERNER Comment:Testing performed by : [facility], [place]., [address] Winfield IgE <0.10 0.00 - 0.34 kUnits/L CERNER Comment:Testing performed by : [facility], [place]., [address] [place] IgE <0.10 0.00 - 0.34 kUnits/L CERNER Comment:Testing performed by : [facility], [place]., [address] Pecan (tree) IgE <0.10 0.00 - 0.34 kUnits/L CERNER Comment:Testing performed by : [facility], [place]., [address] Penicillium chrysogenum IgE <0.10 0.00 - 0.34 kUnits/L CERNER Comment:Testing performed by : [place]., [address] Ragweed common IgE <0.10 0.00 - 0.34 kUnits/L CERNER Comment:Testing performed by : [facility], [place]., [address] Marshelder rough IgE <0.10 0.00 - 0.34 kUnits/L CERNER Comment:Testing performed by : [facility], [place]., [address] Pigweed rough IgE <0.10 0.00 - 0.34 kUnits/L CERNER Comment:Testing performed by : [facility], [place]., [address] Thistle turkmen IgE <0.10 0.00 - 0.34 kUnits/L CERNER Comment:Testing performed by : [facility], [place]., [address] [place] IgE <0.10 0.00 - 0.34 kUnits/L SHELBY Comment:Testing performed by : [facility], [place]., [address] Cristino grass IgE <0.10 0.00 - 0.34 kUnits/L SHELBY Comment:Testing performed by : [facility], [place]., [address] Oskalo[place] (tree) IgE <0.10 0.00 - 0.34 kUnits/L SHELBY Comment:Testing performed by : [facility], [place]., [address] IgE 44.4 1.0 - 100.0 IUnits/mL SHELBY Comment:Testing performed by : [facility], [place]., [address] Blood 06/20/2021 9:51 AM CDT 06/20/2021 12:49 PM CDT us Brijesh Lynch MD LAB BLOOD ORDERABLES Final Resu lt SHELBY VILLATORO [address] [facility] Department [place] [address] documented in this encounter Visit Diagnoses Not on filedocumented in this encounter
--- OUTSIDE RECORDS SUMMARY | 2024-09-03 20:03 | XMS_ITS | Encounter Summary ---
Author Organization [facility] Healthcare Address [address] [place] [address] Care Team Providers Care Sales Merchandising Specialist Name Role Phone Unavailable Primary Care Provider Unavailabl e Reason for Visit * Reason Comments OP Infusion covid * Episode Based Medications (Routine) - Closed Specialty Diagnoses / Procedures Referred By Sharlene angulo Referred To Contact Diagnoses COVID-19 Procedures [facility] INFUSION Brijesh Lynch MD [address] [place] [address] Phone: tel: fax: [facility] [address] [place] [address] Phone: tel: fax: Referral ID Status Reason Start Date Expiration Date Visits Re quested Visits Authorized [id number] Closed 04/16/2021 05/16/2022 1 1 Encounter Details Date Type Department Care Team (Latest Contact Info) Description 04/17/2021 8:13 AM CDT - 04/17/2021 11:59 PM CDT Hospital Encounter [facility] [address] [place] [address] COVID-19 (Primary Dx) Discharge Disposition: Discharge to [...] on file 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
--- OUTSIDE RECORDS SUMMARY | 2024-09-03 20:03 | XMS_ITS | Encounter Summary ---
Author Organization [facility] Medical Group Address [address] [facility] [address] [place] [address] Care Team Providers Care Felt Finishing Supervisor Name Role Phone Unavailable Primary Care Provider Unavailabl e Reason for Visit * Reason Comments Allergies wants to see Allergi st Medication Problem wants Flexeril not Z anaflex Anxiety abruptly stopped Zol oft. 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 refer to allergy and immunology at [place]. Gastroesophageal reflux disease with esophagitis without hemorrhage (K21.00) Comments: conditoin chroinc nad at goal continue the protonix Screening cholesterol level (Z13.220) Comments: check lab Orders: - Lipid panel; Future Brijesh Lynch MD This was a telemedicine visit with Chrissyveronica Kilgore alone which took place via real-time video connection with [employer]. During the visit, I was located in the office and the patient was located at homein the [facility]. The patient visit started at 1600 and [...] MD LAB BLOOD ORDERABLES Final Resu lt [facility] [address] [facility] Department [place] [address] * (ABNORMAL) Lipid panel (03/11/2021 9:04 AM [...] last revised on 2018. Chol/HDL ratio 4 [facility] Blood specimen (specimen) 03/11/2021 9:04 AM CDT 03/11/2021 9:24 AM CDT us Brijesh Lynch MD LAB BLOOD ORDERABLES Final Resu lt [facility] [address] [facility] Department [place] [address] * (ABNORMAL) Comprehensive metabolic panel (03/11/2021 9:04 AM CDT) Sodium 142 135 - 145 mmol/L [facility] Potassium, pl 4.0 3.3 - 4.9 mmol/L [facility] Chloride 104 97 - 110 mmol/L [facility] CO2 29 22 - 32 mmol/L [facility] Anion gap 9 2 - 15 mmol/L [facility] BUN 14 8 - 25 mg/dL [facility] Creatinine 0.70 0.60 - 1.10 mg/dL [facility] Glucose 93 70 - 199 mg/dL [facility] Comment: Interpretive Data Fasting glucose [...] 2017. Calcium 10.6(H) 8.5 - 10.3 mg/dL [facility] Bilirubin, total 0.9 0.1 - 1.2 mg/dL [facility] Protein, pl 7.2 6.5 - 8.5 g/dL [facility] Albumin 4.4 3.5 - 5.0 g/dL [facility] Alk phos 110 40 - 130 Units/L [facility] ALT 35 7 - 45 Units/L [facility] AST 32 10 - 45 Units/L [facility] Blood specimen (specimen) 03/11/2021 9:04 AM CDT 03/11/2021 9:24 AM CDT Brijesh Lynch MD LAB BLOOD ORDERABLES Final Resu lt [facility] [address] [facility] Department [place] [address] * CBC with auto differential (03/11/2021 9:04 AM CDT) Pathologist [facility] WBC 7.0 3.8 - 9.9 K/cumm [facility] Hgb 14.1 11.9 - 15.5 g/dL [facility] Hct 41.2 35.6 - 45.5 % [facility] Plt 336 150 - 400 K/cumm [facility] MPV 9.3 9.1 - 12.3 fL [facility] RBC 4.55 3.90 - 5.20 M/cumm [facility] MCV 90.5 81.3 - 96.4 fL [facility] MCH 31.0 27.1 - 33.3 pg [facility] MCHC 34.2 32.3 - 35.7 g/dL [facility] RDW CV 12.8 11.1 - 14.9 % [facility] RDW SD 41.9 35.7 - 48.1 fL [facility] NRBC abs 0.00 0.00 - 0.01 K/cumm [facility] Blood specimen (specimen) 03/11/2021 9:04 AM CDT 03/11/2021 9:24 AM CDT Brijesh Lynch MD LAB BLOOD ORDERABLES Final Resu lt SHE[facility] [address] [facility] Department [place] [address] documented in this encounter Visit [...]
--- OUTSIDE RECORDS SUMMARY | 2024-09-03 20:03 | XMS_ITS | Encounter Summary ---
Author Organization [facility] Medical Group Address [address] [facility] [address] [place] [address] Care Team Providers Care Windows Migration Technician Name Role Phone Unavailable Primary Care Provider Unavailabl e Reason for Visit * Reason Onset Date Comments peer to peer mri brain wo contrast 06/03/2021 Encounter Details Date Type Department [facility] Description 06/03/2021 Telephone [facility] Medical [facility] Family Medicine [address] [place] [address] Jeff Guzman, CANDE [address] [address] peer to peer mri brain wo contrast [...] on file 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 REFERENCE# [id number] PT. ID# [id number] INS. LENGTHY DENIAL IN Epic documented in this encounter Plan of Treatment Not on file documented as of this encounter Visit Diagnoses Not on filedocumented in this encounter
--- OUTSIDE RECORDS SUMMARY | 2024-09-03 20:03 | XMS_ITS | Encounter Summary ---
Author Organization [facility] Medical Group Address [address] [facility] [address] [place] [address] Care Team Providers Care Table Setter Name Role Phone Unavailable Primary Care Provider Unavailabl e Reason for Visit * Reason Comments Sinusitis Encounter Details Date Type Department Care Team ([facility] st Contact Info) Description 05/18/2021 9:45 AM CDT Telemedicine [facility] Family Medicine [address] [place] [address] Jeff Guzamn, PA [address] [address] Acute recurrent sinusitis, unspecified location (Primary Dx); [...] on file 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 Dysuria (R30.0) Comments: order urinalysis and [facility] Orders: - Urinalysis reflex to microscopic and culture Urine, clean voided; Future Hypercholesteremia (E78.00) Assessment & Plan: Making dietary changes. Order lipid panel in [address] [facility] Orders: - Lipid panel; Future Muscle pain (M79.10) Comments: conditon chronci and not controlled. stop the flexeril start tizanadine Orders: - tiZANidine (ZANAFLEX) 4 mg tablet; Take 1 tablet (4 mg total) by mouth every 8 (eight) hours as needed for muscle spasms This was a telemedicine visit with Chrissy esposito which took place via real-time video connection with [employer]. During the visit, I was located in the office and the patient was located at home in the state of [place]. The patient visit started at 11:48 a.m. [...] changes. Order lipid panel in 1 [address] [facility] documented in this encounter Plan of Treatment Not on file documented as of this encounter Results * (ABNORMAL) Lipid panel (05/28/2021 8:44 AM CDT) [facility] Cholesterol 294(H) 30 - 199 mg/dL SHELBY [...] revised on 2018. Non-HDL Cholesterol 222 mg/dL [facility] Comment: Interpretive Data Ages < or [...] last revised on 2018. Chol/HDL ratio 4 [facility] Blood 05/28/2021 8:44 AM CDT 05/28/2021 9:30 AM CDT us Jeff CASTELLON LAB BLOOD ORDERABLES Final Resu lt [facility] [address] [facility] Department [place] [address] * Urinalysis reflex to microscopic and culture Urine, clean voided (05/28/2021 8:41 AM CDT) Color, ur Yellow Yellow [facility] Clarity, ur Clear Clear [facility] Specific gravity, ur 1.028 1.003 - 1.030 [facility] pH, urine 5.0 [facility] Protein, ur ql Negative Negative [facility] Glucose, ur ql Negative Negative [facility] Ketones, ur Negative Negative [facility] Bilirubin, ur Negative Negative [facility] Blood, ur Negative Negative [facility] Urobilinogen, ur <2.0 <2.0 mg/dL SHELBY Nitrite, ur Negative Negative [facility] Leukocyte esterase, ur Negative Negative [facility] UA reflex comment Reflex conditions for [...] tendency for uric acid stone formation. Source: [employer]. Last revised 09-01-2017 us Jeff CASTELLON LAB MICROBIOLOGY - GENERAL AILYN APPLE Final Result SHELBY [address] [facility] Department [place] [address] documented in this encounter Visit Diagnoses Diagnosis [...]
--- OUTSIDE RECORDS SUMMARY | 2024-09-03 20:03 | XMS_ITS | Encounter Summary ---
Author Organization [facility] Address [address] [facility] [address] [place] [address] Care Team Providers Care Rn Observation Name Role Phone Unavailable Primary Care Provider Unavailabl e Encounter Details Date Type Department Care Team (Late st Contact Info) Description 04/19/2021 Orders Only [facility] Accountable Care Organization [address] [place] [address] Priti Santillan RN [address] [place] [address] [address] [facility] [address] [place] [address] Social History Tobacco Use Types Packs/Day Years [...] file 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
--- OUTSIDE RECORDS SUMMARY | 2024-09-03 20:03 | XMS_ITS | Encounter Summary ---
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 Imm gran abs 0.1 0.0 - 0.1 K/cumm [facility] Lymphocyte abs 1.3 0.8 - 3.3 K/cumm [facility] Monocyte abs 0.4 0.2 - 0.8 K/cumm [facility] Eosinophil abs 0.1 0.0 - 0.5 K/cumm [facility] Basophil abs 0.0 0.0 - 0.1 K/cumm [facility] Neutrophil pct 73.4 % [facility] Comment: Interpretive Data Percent cell count reference ranges are not reported, since discordance with absolute values may lead to misinterpretation of CBC data. Current Interpretive Data was last revised on 2017. Imm gran pct 1.0 % [facility] Comment: Interpretive Data Percent cell count reference ranges are not reported, since discordance with absolute values may lead to misinterpretation of CBC data. Current Interpretive Data was last revised on 2017. Lymphocyte pct 18.1 % [facility] Comment: Interpretive Data Percent cell count reference ranges are not reported, since discordance with absolute values may lead to misinterpretation of CBC data. Current Interpretive Data was last revised on 2017. Monocyte pct 6.2 % [facility] Comment: Interpretive Data Percent cell count reference ranges are not reported, since discordance with absolute values may lead to misinterpretation of CBC data. Current Interpretive Data was last revised on 2017. Eosinophil pct 0.9 % [facility] Comment: Interpretive Data Percent cell count reference ranges are not reported, since discordance with absolute values may lead to misinterpretation of CBC data. Current Interpretive Data was last revised on 2017. Basophil pct 0.4 % [facility] Comment: Interpretive Data Percent cell count reference ranges are not reported, since discordance with absolute values may lead to misinterpretation of CBC data. Current Interpretive Data was last revised on 2017. Blood specimen (specimen) 03/11/2021 9:04 AM CDT 03/11/2021 9:24 AM CDT us Brijesh Lynch MD LAB BLOOD ORDERABLES Final Resu lt Performing Organization Address [facility] Co de Phone Number [address] [employer] [place] [address] * CBC with auto differential (03/11/2021 9:04 AM CDT) WBC 7.0 3.8 - 9.9 K/cumm [facility] Hgb 14.1 11.9 - 15.5 g/dL [facility] Hct 41.2 35.6 - 45.5 % [facility] Plt 336 150 - 400 K/cumm [facility] MPV 9.3 9.1 - 12.[address] [facility] RBC 4.55 3.90 - 5.20 M/cumm [facility] MCV 90.5 81.3 - 96.[address] [facility] MCH 31.0 27.1 - 33.[address] [facility] MCHC 34.2 32.3 - 35.7 g/dL [facility] RDW CV 12.8 11.1 - 14.9 % [facility] RDW SD 41.9 35.7 - 48.[address] [facility] NRBC abs 0.00 0.00 - 0.01 K/cumm [facility] Blood specimen (specimen) 03/11/2021 9:04 AM CDT 03/11/2021 9:24 AM CDT us Brijesh Lynch MD LAB BLOOD ORDERABLES Final Resu lt Performing Organization Address [facility] Co de Phone Number [address] [email or web address] [address] * (ABNORMAL) Comprehensive metabolic panel (03/11/2021 9:04 AM CDT) Pathologist [facility] Sodium 142 135 - 145 mmol/L [facility] Potassium, pl 4.0 3.3 - 4.9 mmol/L [facility] Chloride 104 97 - 110 mmol/L [facility] CO2 29 22 - 32 mmol/L [facility] Anion gap 9 2 - 15 mmol/L [facility] BUN 14 8 - 25 mg/dL [facility] Creatinine 0.70 0.60 - 1.10 mg/dL [facility] Glucose 93 70 - 199 mg/dL [facility] Comment: Interpretive Data Fasting glucose >/= [...] 2017. Calcium 10.6(H) 8.5 - 10.3 mg/dL [facility] Bilirubin, total 0.9 0.1 - 1.2 mg/dL [facility] Protein, pl 7.2 6.5 - 8.5 g/dL [facility] Albumin 4.4 3.5 - 5.0 g/dL [facility] Alk phos 110 40 - 130 Units/L [facility] ALT 35 7 - 45 Units/L [facility] AST 32 10 - 45 Units/L [facility] Blood specimen (specimen) 03/11/2021 9:04 AM CDT 03/11/2021 9:24 AM CDT us Brijesh Lynch MD LAB BLOOD ORDERABLES Final Resu lt [facility] [address] [facility] Department [place] [address] * (ABNORMAL) Lipid panel (03/11/2021 9:04 AM CDT) Cholesterol 380(H) 30 - 199 mg/dL [facility] Comment: Interpretive Data Ages < or [...] on 2018. HDL 90 >=40 mg/dL [facility]ILL[facility]OR[facility] Comment: Interpretive Data Ages < or = [...] ORDERABLES Final Resu lt Performing Organization Address [facility] Co de Phone Number SHELBY [address] [email or web address] [address] * Erythrocyte sedimentation rate (03/11/2021 9:04 AM CDT) Erythrocyte sedimentation rate 22 1 - 30 mm/hr [facility] VILLATORO Blood specimen (specimen) 03/11/2021 9:04 AM CDT 03/11/2021 9:24 AM CDT us Brijesh Lynch MD LAB BLOOD ORDERABLES Final Resu lt Performing Organization Address [facility] de Phone Number SHELBY [address] [address] documented in this encounter Visit Diagnoses Diagnosis Neck pain Cervicalgia Muscle spasms of both lower extremities Screening cholesterol level Screening for lipoid disorders Mild persistent asthma without complication documented in this encounter
--- OUTSIDE RECORDS SUMMARY | 2024-09-03 20:03 | XMS_ITS | Encounter Summary ---
Author Organization [facility] Address [address] [facility] [address] [place] [address] Care Team Providers Care Welding Estimator Name Role Phone Unavailable Primary Care Provider Unavailabl e Reason for Visit * Reason Comments Hypertension headaches and face g ets hot Memory Loss getting worse Encounter Details Date Type Department Care Team ([facility] st Contact Info) Description 05/26/2021 9:15 AM CDT Office Visit 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
--- OUTSIDE RECORDS SUMMARY | 2024-09-03 20:03 | XMS_ITS | Encounter Summary ---
Author Organization [facility] Healthcare Address [address] [place] [address] Care Team Providers Care Software Applications Specialist Name Role Phone Unavailable Primary Care Provider Unavailabl e Reason for Referral * Diagnostic Imaging (Routine) - Closed Specialty Diagnoses / Procedures Referred By Sharlene t Referred To Contact Diagnoses Right elbow pain Procedures XR Elbow Right 3+ Vw Brijesh Lynch MD Phone: tel: fax: [address] [address] Referral ID Status Reason Start Date Expiration Date Visits Re quested Visits Authorized [id number] Closed 10/24/2020 11/23/2021 1 1 PAINTER Encounter Details Date Type Department Care Team (Late st Contact Info) Description 10/31/2020 8:37 AM HEEL PAINTER Hospital Encounter [facility] OP INTERIM Brijesh Lynch MD [address] [place] [address] Right elbow pain Social History Tobacco Use [...] file 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 D.O.B: 1970 ? Exam Date: 10/31/20 ?? 0839 ?? Age: 50 ?Sex: Female ? MR#: [id number] ?? Loc: ? RADIOLOGY REPORT ?? Order #[id number] ?? Radiology ? Elbow RT 3 View [...] 4:04 PM ?? T: ? Report ID: [id number] ?? Reading Location: ??[id number] ? REPORT ELECTRONICALLY SIGNED IN OTHER VENDOR SYSTEM ?? Resulting Agency Comment O Procedure Note Will Arce MD - 10/31/2020 Patient Name: MAX DE LA GARZA Dr: Brijesh Lynch MD D.O.B: 1970 Exam Date: 10/31/2039 Age: 50 Sex: Female MR#: [id number] Loc: RADIOLOGY REPORT Order #[id number] Radiology Elbow RT 3 View Min Signed [...] Will Arce M.D. AG T: Report ID: [id number] Reading Location: [place] [address] REPORT ELECTRONICALLY SIGNED IN OTHER VENDOR SYSTEM Brijesh Lynch MD IMG XR PROCEDURES Final Result documented in this encounter Visit Diagnoses Diagnosis Right elbow pain Pain in joint, upper arm documented in this encounter
--- OUTSIDE RECORDS SUMMARY | 2024-09-03 20:03 | XMS_ITS | Encounter Summary ---
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
--- OUTSIDE RECORDS SUMMARY | 2024-09-03 20:03 | XMS_ITS | Encounter Summary ---
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
--- OUTSIDE RECORDS SUMMARY | 2024-09-03 20:03 | XMS_ITS | Encounter Summary ---
Author Organization [facility] Medical Group Address [address] [facility] [address] [place] [address] Care Team Providers Care Skein Bander Name Role Phone Unavailable Primary Care Provider Unavailabl e Encounter Details Date Type Department Care Team (Late st Contact Info) Description 06/18/2021 Orders Only 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
--- OUTSIDE RECORDS SUMMARY | 2024-09-03 20:03 | XMS_ITS | Encounter Summary ---
Author Organization [facility] Address [address] [facility] [address] [place] [address] Care Team Providers Care Hand Quilter Name Role Phone Unavailable Primary Care Provider Unavailabl e Reason for Visit * Reason Comments Hand Pain f/u Injections Encounter Details Date Type Department Care Team (Latest Contact Info) Description 12/24/2020 8:30 AM CDT Office Visit [facility] Family Medicine [address] [place] [address] Brijesh Lynch MD [address] [place] [address] Primary osteoarthritis involving multiple joints (Primary Dx); [...] on file 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
--- OUTSIDE RECORDS SUMMARY | 2024-09-03 20:03 | XMS_ITS | Encounter Summary ---
Author Organization [facility] Medical [facility] Address [address] [facility] [address] [place] [address] Care Team Providers Care Philosophy Faculty Name Role Phone Unavailable Primary Care Provider Unavailabl e Reason for Visit * Reason Comments Follow-up depression, muscle p ain , muscle pain not improved was unable to get muscle relaxer due for mammogram Encounter Details Date Type Department Care Team (Latest Contact Info) Description 11/21/2020 9:15 AM CDT Office Visit [facility] Family Medicine [address] [place] [address] Brijesh Lynch MD [address] [place] [address] Primary osteoarthritis involving multiple joints (Primary Dx); [...] on file 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 kenalog 80 mg medrol refer to [facility] Orders: - triamcinolone (KENALOG) 40 mg/mL [...]
--- OUTSIDE RECORDS SUMMARY | 2024-09-03 20:03 | XMS_ITS | Encounter Summary ---
Author Organization [facility] Address [address] [facility] [address] [place] [address] Care Team Providers Care Boatwright Name Role Phone Unavailable Primary Care Provider Unavailabl e Reason for Visit * Reason Comments Depression wants back on med, n ot lexapro Anxiety Back Pain chronic low back caitie n, wants flexeril Encounter Details Date Type Department Care Team ([facility] st Contact Info) Description 01/28/2021 8:30 AM CDT Office Visit [facility] Medical [facility] Family Medicine [address] [place] [address] Brijesh Lynch MD [address] [place] [address] [address] [place] [address] Lumbar back pain (Primary Dx); Seasonal allergic [...] file 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
--- OUTSIDE RECORDS SUMMARY | 2024-09-03 20:03 | XMS_ITS | Encounter Summary ---
Author Organization [facility] Address [address] [facility] [address] [place] [address] Care Team Providers Care Md Senior Research Scientist Name Role Phone Unavailable Primary Care Provider Unavailabl e Reason for Visit * Reason Comments COVID-19 EVALUATION Encounter Details Date Type Department Care Team ([facility] st Contact Info) Description 04/16/2021 2:15 PM CDT Telemedicine [facility] Family Medicine [address] [place] [address] Brijesh Lynch MD [address] [place] [address] Infection due to COVID-19 virus variant of [...] took place via real-time video connection with [employer]. During the visit, I was located in the office and the patient was located at home in the [facility]. The patient visit started at 1420 and [...]
--- OUTSIDE RECORDS SUMMARY | 2024-09-03 20:03 | XMS_ITS | Encounter Summary ---
Author Organization [facility] Medical Group Address [address] [place] [address] [address] [place] [address] Care Team Providers Care Civil Celebrant Name Role Phone Unavailable Primary Care Provider Unavailabl e Reason for Visit * Reason Onset Date Comments Covid-19 Home Monitoring 04/20/2021 non-res ponder Encounter Details Date Type Department Care Team ([facility] st Contact Info) Description 04/20/[address] 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
--- OUTSIDE RECORDS SUMMARY | 2024-09-03 20:03 | XMS_ITS | Encounter Summary ---
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 Chol/HDL ratio 4 [facility] Blood 05/28/2021 8:44 AM CDT 05/28/2021 9:30 AM CDT us Jeff CASTELLON LAB BLOOD ORDERABLES Final Resu lt Performing Organization Address [facility] Co de Phone Number [facility] [address] [facility] Department [place] [address] * Urinalysis reflex to microscopic and culture Urine, clean voided (05/28/2021 8:41 AM CDT) Color, ur Yellow Yellow [facility] Clarity, ur Clear Clear [facility] Specific gravity, ur 1.028 1.003 - 1.030 [facility] pH, urine 5.0 [facility] Protein, ur ql Negative Negative [facility] Glucose, ur ql Negative Negative [facility] Ketones, ur Negative Negative [facility] Bilirubin, ur Negative Negative [facility] Blood, ur Negative Negative [facility] Urobilinogen, ur <2.0 <2.0 mg/dL [facility] Nitrite, ur Negative Negative [facility] Leukocyte esterase, ur Negative Negative [facility] UA reflex comment Reflex conditions for microscopic UA and culture not met. [facility] Urine, clean voided 05/28/2021 8:41 AM CDT 05/28/2021 8:55 AM CDT Narrative [facility] - 05/28/2021 9:04 AM CDT Urine Collection Method->Clean Catch Urine pH is affected by diet, medications, systemic acid-base disturbances, and renal tubular function. ??pH may affect urinary stone formation. ??For example, urine pH below 6.0 may help reduce the tendency for calcium phosphate stones and pH greater than 6.0 may reduce the tendency for uric acid stone formation. Source: Webs. Last revised 09-01-2017 us Jeff CASTELL[facility] LAB MICROBIOLOGY - GENERAL ORDE ZECHARIAH Final Result Performing Organization Address [facility]/State/[facility] Co de Phone Number [facility] [address] [facility] Department [place] [address] documented in this encounter Visit Diagnoses Diagnosis Hypercholesteremia Pure hypercholesterolemia Dysuria documented in this encounter
--- OUTSIDE RECORDS SUMMARY | 2024-09-03 20:03 | XMS_ITS | Encounter Summary ---
Author Organization [facility] Address [address] [place] [address] Phone Care Team Providers Care Sheet Tester Name Role Phone Unavailable Primary Care Provider Unavailabl e Reason for Visit * Reason Onset Date Comments Scheduling Appointments 12/31/2020 Encounter Details Date Type Department Care Team (Late st Contact Info) Description 12/31/2020 Telephone [facility] Ophthalmology [address] [facility] 6th [place] [address] Basilio Jay MD PhD [address] [facility] [place] [address] Scheduling Appointments Social History Tobacco [...] on file 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
--- OUTSIDE RECORDS SUMMARY | 2024-09-03 20:03 | XMS_ITS | Encounter Summary ---
Author Organization [facility] Address [address] [facility] [address] [place] [address] Care Team Providers Care Slate Roofer Helper Name Role Phone Unavailable Primary Care Provider Unavailabl e Reason for Visit * Reason Onset Date Comments Covid-19 Home Monitoring 04/21/2021 Encounter Details Date Type Department Care Team (Late st Contact Info) Description 04/21/2021 Telephone [facility] Accountable Care Organization [address] [place] [address] Pineda Tuttle MA [address] [facility] [address] [place] [address] Covid-19 Home Monitoring Social History Tobacco Use [...] on file 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
--- OUTSIDE RECORDS SUMMARY | 2024-09-03 20:03 | XMS_ITS | Encounter Summary ---
Author Organization [facility] Medical [facility] Address [address] [address] Care Team Providers Care Precision Lens Polisher Name Role Phone Angeles Hernandez MD Unavailable [phone] Reason for Referral * Consultation (Routine) - Closed Specialty Diagnoses / Procedures Referred By Contact Referred To Contact Sleep Medicine / Pulmonology Diagnoses Snoring Abnormal leg movement Jeff Guzman PA Phone: tel: fax: [facility] Pulmonology [facility] [address] [address] Phone: tel: fax: Referral ID Status Reason Start Date Expiration Date V isits Requested Visits Authorized [id number] Closed Specialty Services Required 07/07/2021 08/06/2022 1 1 Question Answer Please select the performing region: [facility] Medical [facility] [[id number]] Please select the performing department: [facility] [[id number]] # of visits: 1 ID GEAR GENERATOR * Consultation (Routine) - Closed Specialty Diagnoses / Procedures Referred By Contac t Referred To Contact Physical Therapy Diagnoses Lumbar spondylosis Thoracic spine pain Cervical spine pain Jeff Guzman PA Phone: tel: fax: [facility] OP Physical Therapy [address] [address] Phone: tel: fax: Referral ID Status Reason Start Date Expiration Date V isits Requested Visits Authorized [id number] Closed Specialty Services Required 07/07/2021 08/06/2022 24 24 Question Answer PTRFR PT Evaluate and Treat Therapy options discussed with patient? Yes Location provided for therapy services is: Patient requested/Patient preferred Please select the performing region: [facility] [[id number]] Please select the performing department: [facility] ON OP PT [[id number]] # of visits: 24 Comments 2-3 times per week times 6 weeks ID GEAR GENERATOR Reason for Visit * Reason Comments Hypertension Encounter Details Date Type Department Care Team (Late st Contact Info) Description 07/07/2021 9:15 AM HYPOID GEAR GENERATOR Office Visit [facility] Group Family Medicine [address] [place] [address] Jeff Guzman PA [address] [address] Benign essential HTN (Primary Dx); Hypercholesteremia; Lumbar [...] on file Legal Sex Female 2:59 PM HYPOID GEAR GENERATOR Gender Identity Female 03/27/2020 5:01 PM CDT Sexual Orientation Lesbian 03/27/2020 5: 01 PM CDT documented as of this encounter Last Filed Vital Signs Vital Sign [place] Time Taken Comments Blood Pressure 122/80 07/07/2021 9:38 AM HYPOID GEAR GENERATOR Pulse 66 07/07/2021 9:38 AM HYPOID GEAR GENERATOR Temperature - - Respiratory Rate 16 07/07/2021 9:38 AM HYPOID GEAR GENERATOR Oxygen Saturation - - Inhaled Oxygen Concentration - - Weight 88.5 kg (195 lb) 07/07/2021 9:38 AM HYPOID GEAR GENERATOR Height 167.6 cm (5' 6 ) 07/07/2021 9:38 AM HYPOID GEAR GENERATOR Body Mass Index 31.47 07/07/2021 9:38 AM HYPOID GEAR GENERATOR documented in this encounter Ordered Prescriptions Prescription [...] referral to Sleep Medicine; Future CANDE Du ID GEAR GENERATOR documented in this encounter Miscellaneous Notes * Assessment & Plan Note - Jeff Guzman PA - 07/07/2021 10:28 AM HYPOID GEAR GENERATOR Associated Problem(s): Essential hypertension Chronic condition improved control with metoprolol will continue with dosing at this time as her blood pressure is good at goal today. I got 118/78 after rechecking in the office. ID GEAR GENERATOR * Assessment & Plan Note - Jeff Guzman PA - 07/07/2021 10:16 AM HYPOID GEAR GENERATOR Associated Problem(s): Hypercholesteremia Chronic condition Start crestro 5mg Repeat lft ck and lipid panel in 3mo ID GEAR GENERATOR * Addendum Note - Pari Noyola - 07/07/2021 9:15 AM CSTAddended by: PARI NOYOLA on: 09/28/2021 11:03 AM Modules accepted: Orders ID GEAR GENERATOR * Addendum Note - Gisell Worthy - 07/07/2021 9:15 AM CSTAddended by: GISELL WORTHY on: 10/06/2021 09:57 AM Modules accepted: Orders ID GEAR GENERATOR documented in this encounter Plan of Treatment [...] (ABNORMAL) Hepatic function panel (10/06/2021 10:04 AM HYPOID GEAR GENERATOR) [facility] Bilirubin, total 0.4 0.1 - 1.2 mg/dL [facility] Comment:Testing performed by : [address] [address] Bilirubin, direct <0.2 0.1 - 0.3 mg/dL [facility] Comment:Testing performed by : [address] [address] Protein, pl 7.3 6.5 - 8.5 g/dL [facility] Comment:Testing performed by : [address] [address] Albumin 4.2 3.5 - 5.0 g/dL [facility] Comment:Testing performed by : [address] [address] Alk phos 160(H) 40 - 130 Units/L [facility] Comment:Testing performed by : [address] [address] ALT 33 7 - 45 Units/L [facility] Comment:Testing performed by : [address] [address] AST 23 10 - 45 Units/L [facility] Comment:Testing performed by : [address], [address] Blood 10/06/2021 10:0 4 AM HYPOID GEAR GENERATOR 10/06/2021 10:41 AM HYPOID GEAR GENERATOR us Jeff CASTELL[facility] LAB BLOOD ORDERABLES Final Resu lt [facility] [address] [facility] Department of Laboratories [place], [place] [id number] * Creatine kinase (CK), total (10/06/2021 10:04 AM HYPOID GEAR GENERATOR) [facility] CK 46 30 - 200 Units/L [facility] VILLATORO Comment:Testing performed by : [facility], [address] [place] [address]., [address] Blood 10/06/2021 10:0 4 AM HYPOID GEAR GENERATOR 10/06/2021 10:41 AM HYPOID GEAR GENERATOR us Jeff CASTELLON LAB BLOOD ORDERABLES Final Resu lt Performing Organization Address City/State/[facility] Co de Phone Number [facility] [address] [facility] Department [place] [address] * Lipid panel (10/06/2021 10:04 AM HYPOID GEAR GENERATOR) Pathologist [facility] Cholesterol 198 30 - 199 mg/dL [facility] [...] revised on 2018. Testing performed by: [facility], [address] [place] [address]., [address] Triglycerides 110 <=149 mg/dL [facility] VILLATORO Comment: [...] revised on 2018. Testing performed by: [facility], [address] [place] [address]., [address] HDL 95 >=40 mg/dL [facility] Comment: Interpretive [...] last revised on 2018. Testing performed by: [address] [address] LDL, calculated 81 <=129 mg/dL [facility] Comment: [...] last revised on 2018. Testing performed by: [address] [address] Non-HDL Cholesterol 103 mg/dL [facility] Comment: Interpretive [...] last revised on 2018. Testing performed by: [address] [address] Chol/HDL ratio 2 [facility] Comment:Testing performed by : [address] [address] Blood 10/06/2021 10:0 4 AM HYPOID GEAR GENERATOR 10/06/2021 10:41 AM HYPOID GEAR GENERATOR us Jeff CASTELLON LAB BLOOD ORDERABLES Final Resu lt [facility] [address] [facility] Department [place] [address] documented in this encounter Visit [...] documented as of this encounter Care Teams Precision Lens Polisher Relationship Specialty Start Date End Date Angeles Hernandez MD [address] [id number] Referring Physician Gynecology 07/21/21 documented as of this encounter
--- OUTSIDE RECORDS SUMMARY | 2024-09-03 20:03 | XMS_ITS | Encounter Summary ---
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
--- OUTSIDE RECORDS SUMMARY | 2024-09-03 20:03 | XMS_ITS | Encounter Summary ---
Author Organization [facility] Address [address] [place] [address] Phone Care Team Providers Care Auto Service Mechanic Name Role Phone Unavailable Primary Care Provider Unavailabl e Encounter Details Date Type Department Care Team (Late st Contact Info) Description 07/10/2021 Telephone [facility] Surgery [address] [facility] 5th [place] [address] [place] [address] Keyanna Pérez CPhT Social History [...] on file Legal Sex Female 2:59 PM BUSINESS OBJECTS ANALYST Gender Identity Female 03/27/2020 5:01 PM CDT Sexual Orientation Lesbian 03/27/2020 5: 01 PM CDT documented as of this encounter Miscellaneous Notes * Telephone Encounter - Keyanna Pérez CPhT - 07/10/2021 10:38 AM BUSINESS OBJECTS ANALYST Lmov re referral. NESS OBJECTS ANALYST documented in this encounter Plan of Treatment Not on file documented as of this encounter Visit Diagnoses Not on filedocumented in this encounter
--- OUTSIDE RECORDS SUMMARY | 2024-09-03 20:04 | XMS_ITS | Encounter Summary ---
Author Organization [facility] Address [address] [place] [address] Phone Care Team Providers Care Clipper Machine Operator Name Role Phone Unavailable Primary Care Provider Unavailabl e Reason for Referral * (Routine) - Closed Specialty Diagnoses / Procedures Referred By Contac t Referred To Contact Diagnoses PCO (posterior capsular opacification), left Procedures Yag Capsulotomy - OS - Left Eye Mary Ann Webster MD [address] [place] [place] [address] Phone: tel: fax: [facility] (All Locations) Referral ID Status Reason Start Date Expiration Date Visits Re quested Visits Authorized [id number] Closed 09/15/2020 10/15/2021 1 1 RETE PIPE MACHINE OPERATOR Reason for Visit * Reason Comments Decreased Visual Acuity Encounter Details Date Type Department Care Team (Late st Contact Info) Description 09/15/2020 8:00 AM CONCRETE PIPE MACHINE OPERATOR Office Visit [facility] Ophthalmology [facility] [place] [id number] Mayr Ann Webster MD [address] [place] [address] PCO (posterior capsular opacification), left [...] on file Legal Sex Female 2:59 PM CONCRETE PIPE MACHINE OPERATOR Gender Identity Female 03/27/2020 5:01 PM CDT Sexual Orientation Lesbian 03/27/2020 5 :01 PM CDT documented as of this encounter Patient Instructions * Patient Instructions* Mary Ann Webster MD - 09/15/2020 8:00 AM CONCRETE PIPE MACHINE OPERATOR Dilation instructions Please refer to your Dilating Eyedrops brochure for instructions regarding dilation. RETE PIPE MACHINE OPERATOR documented in this encounter Progress Notes * [...] agree with the findings/plan of the Resident/Fellow RETE PIPE MACHINE OPERATOR documented in this encounter Miscellaneous Notes * Assessment & Plan Note - Mary Ann Webster MD - 09/15/2020 8:14 AM CONCRETE PIPE MACHINE OPERATOR Associated Problem(s): Epiretinal membrane (ERM) of both eyes ERM OU Observing with Dr. Jay RETE PIPE MACHINE OPERATOR * Assessment & Plan Note - Mary Ann Webster MD - 09/15/2020 8:13 AM CONCRETE PIPE MACHINE OPERATOR Associated Problem(s): PCO (posterior capsular opacification), left PCO OS VS with glare Aware will not change ERM Plan for YAG OS today Follow 4 weeks, then to Dr. Moscoso thereafter RETE PIPE MACHINE OPERATOR * Assessment & Plan Note - Mary Ann Webster MD - 09/15/2020 8:13 AM CONCRETE PIPE MACHINE OPERATOR Associated Problem(s): Pseudophakia of right eye Not yet VS BAT 20/[address] Moscoso for her routine eye care - back to me when VS RETE PIPE MACHINE OPERATOR documented in this encounter Plan of Treatment Not on file documented as of this encounter Procedures Procedure Name Priority Date/Time Associated Diagnosis Comments YAG CAPSULOTOMY - OS - LEFT EYE Routine 09/15/2020 8:45 AM CONCRETE PIPE MACHINE OPERATOR PCO (posterior capsular opacification), left documented in this encounter Results * Yag Capsulotomy - OS - Left Eye (09/15/2020 8:45 AM CONCRETE PIPE MACHINE OPERATOR) Anatomical Region Laterality Modality Head Laser Room Narrative 09/15/2020 8:45 AM CONCRETE PIPE MACHINE OPERATOR Time Out Informed consent was obtained after [...]
--- OUTSIDE RECORDS SUMMARY | 2024-09-03 20:04 | XMS_ITS | Encounter Summary ---
Author Organization [facility] Address [address] [place] [address] Phone Care Team Providers Care Plating Stripper Name Role Phone Unavailable Primary Care Provider Unavailabl e Reason for Referral * (Routine) - Closed Specialty Diagnoses / Procedures Referred By Contac t Referred To Contact Diagnoses Epiretinal membrane (ERM) of both eyes Procedures OCT, Retina - OU - Both Eyes Christine Moscoso, OD Phone: tel: fax: [facility] (All Locations) Referral ID Status Reason Start Date Expiration Date Visits Re quested Visits Authorized [id number] Closed 07/29/2020 08/28/2021 1 1 IST ASSISTANT Encounter Details Date Type Department Care Team (Late st Contact Info) Description 07/29/2020 3:00 PM STYLIST ASSISTANT Office Visit [facility] Ophthalmology [address] [facility] 6th Floor, [address] [facility] [place] [address] Christine Moscoso, OD [address] [address] Epiretinal membrane (ERM) of both [...] on file Legal Sex Female 2:59 PM STYLIST ASSISTANT Gender Identity Female 03/27/2020 5:01 PM CDT Sexual Orientation Lesbian 03/27/2020 5: 01 PM CDT documented as of this encounter Patient Instructions * Patient Instructions* Christine Moscoso, OD - 07/29/2020 3:00 PM STYLIST ASSISTANT Dilation instructions Please refer to your Dilating Eyedrops brochure for instructions regarding dilation. IST ASSISTANT documented in this encounter Progress Notes * [...] cataract [facility]CE[facility] [place] [facility]: consider yag cap after retina [...] not yet VS -follow Christine Moscoso OD IST ASSISTANT documented in this encounter Miscellaneous Notes * Assessment & Plan Note - Christine Moscoso, OD - 07/29/2020 4:20 PM CSTAssociated Problem(s): Pseudophakia of right eye Mild; not yet VS -follow IST ASSISTANT * Assessment & Plan Note - Christine [...] (OS) -will schedule eval with retina team IST ASSISTANT * Assessment & Plan Note - Christine Moscoso, OD - 07/29/2020 4:18 PM CSTAssociated Problem(s): PCO (posterior capsular opacification), left -sp cataract extraction (CE) 2 years ago in [place] -[place] VS: consider yag cap after retina eval IST ASSISTANT IST ASSISTANT * Assessment & Plan Note - Christine [...] concerning -recommend carotid doppler; will notify PCP IST ASSISTANT documented in this encounter Plan of Treatment Not on file documented as of this encounter Procedures Procedure Name Priority Date/Time Associated Diagnosis Comments OCT, RETINA - OU - BOTH EYES Routine 07/29/2020 4:26 PM STYLIST ASSISTANT Epiretinal membrane (ERM) of both eyes documented in this encounter Results * OCT, Retina - OU - Both Eyes (07/29/2020 4:26 PM STYLIST ASSISTANT) Anatomical Region Laterality Modality Head Optical Coherenc e Tomography Narrative 07/29/2020 4:26 PM STYLIST ASSISTANT Right Eye Quality was good. Progression has [...] inferiorly and temp Wearing Rx Sphere Cylinder [place] Add Right eye -2.25 -2.25 095 +2.00 Left eye -1.25 -1.50 040 +2.00 Age: 6/2020 [employer] Type: bifocal
--- OUTSIDE RECORDS SUMMARY | 2024-09-03 20:04 | XMS_ITS | Encounter Summary ---
Author Organization [facility] Address [address] [address] Care Team Providers Care Livestock Haulier Name Role Phone Unavailable Primary Care Provider Unavailabl e Reason for Referral * Consultation (Routine) - Closed Specialty Diagnoses / Procedures Referred By Sharlene t Referred To Contact Otolaryngology Diagnoses Mixed conductive and sensorineural hearing loss, bilateral Brijesh Lynch MD Phone: tel: fax: [facility] [address] [place] [address] Phone: tel: fax: Referral ID Status Reason Start Date Expiration Date V isits Requested Visits Authorized [id number] Closed Specialty Services Required 07/28/2020 08/27/2021 1 1 Question Answer Please select the performing region: [facility] [[id number]] Please select the performing department: [facility] ENT [facility] [[id number]] # of visits: 1 Comments . Martin guillermo [facility] (internal) dx: H90.6 mixed conductive and sensorineural hearing loss ?? NEER OPERATIONS AND MAINTENANCE Reason for Visit * Reason Onset Date Comments need ear, nose & throat referral 07/28/2020 Encounter Details Date Type Department Care Team (Late st Contact Info) Description 07/28/2020 Telephone [facility] Family Medicine [address] [place] [address] Brijesh Lynch MD [address] [place] [id number] need ear, nose & throat referral Social [...] file Legal Sex Female 2:59 PM ENGINEER OPERATIONS AND MAINTENANCE Gender Identity Female 03/27/2020 5:01 PM CDT Sexual Orientation Lesbian 03/27/2020 5: 01 PM CDT documented as of this encounter Miscellaneous Notes * Addendum Note - Brittany Joseph MA - 07/28/2020 1:08 PM CSTAddended by: BRITTANY JOSEPH on: 07/28/2020 01:08 PM Modules accepted: Orders NEER OPERATIONS AND MAINTENANCE * Telephone Encounter - Brittany Joseph MA - 07/28/2020 1:08 PM CST Referral in [facility] NEER OPERATIONS AND MAINTENANCE * Telephone Encounter - Barb Morales - 07/28/2020 12:42 PM CST Pt. Stated she was suppose to be referred to an ear nose and throat physician. Please put referral in for dr. Martin guillermo [facility] (internal) dx: H90.6 mixed conductiveand sensorineural hearing loss Pt. Aware they will call her to schedule NEER OPERATIONS AND MAINTENANCE documented in this encounter Plan of Treatment [...]
--- OUTSIDE RECORDS SUMMARY | 2024-09-03 20:04 | XMS_ITS | Encounter Summary ---
Author Organization [facility] Address [address] [place] [address] Care Team Providers Care Silk Blocker Name Role Phone Unavailable Primary Care Provider Unavailabl e Reason for Visit * Diagnostic Imaging (Routine) - Closed Specialty Diagnoses / Procedures Referred By Sharlene angulo Referred To Contact Procedures Breast MRI Outside Reference Transcribed Order, Provider Referral ID Status Reason Start Date Expiration Date Visits Re quested Visits Authorized [id number] Closed 02/01/2022 03/03/2023 1 1 Encounter Details Date Type Department Care Team ([facility] st Contact Info) Description 12/26/2015 Ancillary Procedure [facility] Outside Images [address] [place] [address] Social History Tobacco Use Types Packs/Day Years Used Date Smoking Tobacco: Never Assessed Comments Unknown Sex and Gender Information Value Date Recorded Sex Assigned at Not on file Legal Sex Female 2:59 PM PERINATAL INSTRUCTOR Gender Identity Female 03/27/2020 5:01 PM [...]
--- OUTSIDE RECORDS SUMMARY | 2024-09-03 20:04 | XMS_ITS | Encounter Summary ---
Author Organization [facility] Address [address] [facility] [address] [place] [address] Care Team Providers Care Quality Assurance Supervisor Chassis Name Role Phone Unavailable Primary Care Provider Unavailabl e Reason for Visit * Reason Comments Establish Care Encounter Details Date Type Department Care Team (Latest Contact Info) Description 03/14/2020 9:00 AM CDT Office Visit [facility] Family Medicine [address] [place] [address] Brijesh Lynch MD [address] [place] [address] Asthma (Primary Dx); Irritable bowel syndrome with [...] on file Legal Sex Female 2:59 PM OUTPLACEMENT CONSULTANT Gender Identity Female 03/27/2020 5:01 PM [...] evaluatoin. States that she moved her from [place]. H/o astham most of adult life. 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 check uric acid level Orders: - Uric acid; Future - DULoxetine DR (CYMBALTA) 30 mg capsule; 30mg daily for 2 wks, then 60mg daily for 2 wks, Will eventually take 90mg daily Encounter for well woman exam with routine gynecological exam (Z01.419) Comments: refer to computer tester Orders: - Ambulatory referral to Obstetrics / [...] CDT) Magnesium 1.9 1.6 - 2.6 mg/dL [facility] Comment: Magnesium sulfate therapy: ??3.0-9.1 mg/dL Blood specimen (specimen) 03/14/2020 10:02 AM CDT 03/14/2020 10:19 AM CDT Narrative Resulting Agency Comment CLI us Brijesh Lynch MD LAB BLOOD ORDERABLES Final Resu lt [facility] [address] [place] [address], [facility] [phone] * Basic metabolic panel (03/14/2020 10:02 AM CDT) Sodium 143 135 - 145 mmol/L [facility] Potassium 4.0 3.3 - 5.1 mmol/L [facility] Chloride 108 96 - 108 mmol/L [facility] Carbon Dioxide 26 22 - 32 mmol/L [facility] Anion Gap 9 7 - 16 [facility] Glucose 99 70 - 100 mg/dL [facility] BUN 20 8 - 25 mg/dL [facility] Creatinine 0.6 0.5 - 1.1 mg/dL [facility] Comment: NOTE: Estimated GFR (Cockroft-Gault) will NOT be calculated unless patient Height and Weight were entered. Also, Kidney Disease Stage (GFR) and Estimated GFR (Cockroft-Gault) will NOT be calculated if Creatinine result is <0.2. Kidney Disease Stage >90 mL/MIN [facility] Comment: NOTE; ??The GFR is an estimated [...] dialysis Calcium 9.2 8.6 - 10.3 mg/dL [facility] Blood specimen (specimen) 03/14/2020 10:02 AM CDT 03/14/2020 10:19 AM CDT Narrative Resulting Agency Comment CLI us Brijesh Lynch MD LAB BLOOD ORDERABLES Final Resu lt [facility] [address] [place] [address], [facility] [phone] * Uric acid (03/14/2020 10:02 AM CDT) Uric Acid 4.6 2.5 - 7.0 mg/dL [facility] Blood specimen (specimen) 03/14/2020 10:02 AM CDT 03/14/2020 10:19 AM CDT Narrative Resulting Agency Comment CLI us Brijesh Lynch MD LAB BLOOD ORDERABLES Final Resu lt [facility] [address] [place] [address], [facility] [phone] documented in this encounter Visit Diagnoses Diagnosis [...]
--- OUTSIDE RECORDS SUMMARY | 2024-09-03 20:04 | XMS_ITS | Encounter Summary ---
Author Organization [facility] Address [address] [facility] [address] [place] [address] Care Team Providers Care Talend Developer Name Role Phone Unavailable Primary Care Provider Unavailabl e Reason for Visit * Consultation (Routine) - Closed Specialty Diagnoses / Procedures Referred By Contcosme t Referred To Contact Otolaryngology Diagnoses Mixed conductive and sensorineural hearing loss, bilateral Brijesh Lynch MD Phone: tel: fax: [facility] [address] [place] [address] Phone: tel: fax: Referral ID Status Reason Start Date Expiration Date V isits Requested Visits Authorized [id number] Closed Specialty Services Required 07/28/2020 08/27/2021 1 1 Encounter Details Date Type Department Care Team (Late st Contact Info) Description 08/07/2020 8:30 AM COMPUTER METHODS ANALYST Office Visit [facility] Medical [facility] [address] [place] [address] Joshua Stewart MD [address] [place] [address] [address] [place] [address] Eustachian tube dysfunction, unspecified laterality (Primary Dx); [...] file Legal Sex Female 2:59 PM COMPUTER METHODS ANALYST Gender Identity Female 03/27/2020 5:01 PM CDT Sexual Orientation Lesbian 03/27/2020 5: 01 PM CDT documented as of this encounter Last Filed Vital Signs Vital Sign Reading Time Taken Comments Blood Pressure 151/92 08/07/2020 8:33 AM COMPUTER METHODS ANALYST Pulse 76 08/07/2020 8:33 AM COMPUTER METHODS ANALYST Temperature 36.2 ??C (97.1 ??F) 08/07/2020 8:33 AM CS T Respiratory Rate - - Oxygen Saturation 98% 08/07/2020 8:33 AM COMPUTER METHODS ANALYST Inhaled Oxygen Concentration - - Weight 86.6 kg (191 lb) 08/07/2020 8:33 AM COMPUTER METHODS ANALYST Height 167.6 cm (5' 6 ) 08/07/2020 8:33 AM COMPUTER METHODS ANALYST Body Mass Index 30.83 08/07/2020 8:33 AM COMPUTER METHODS ANALYST documented in this encounter Progress Notes * [...] Diagnosis Date ??? Asthma ??? Brain concussion [id number] ??? Cataract [id number] ??? Depression [id number] ??? GERD (gastroesophageal reflux disease) ??? Irritable bowel syndrome ??? Kidney stone 039804 ??? Menstrual problem 602159 ??? Migraines 534526 ??? Peptic ulceration 0101?? 1 Patient Active Problem List Diagnosis ??? Visual disturbance ??? Age-related nuclear cataract of right eye ??? PCO (posterior capsular opacification), left ??? Epiretinal membrane (ERM) of both eyes Past Surgical History: Procedure Laterality Date ??? APPENDECTOMY ??? BREAST SURGERY ??? CATARACT EXTRACTION 538481 ??? CHOLECYSTECTOMY 782583 ??? COLON SURGERY 144017 ??? GALLBLADDER SURGERY ??? OVARY SURGERY ??? [...] Note dictated with voice recognition software. Mild blood bank laboratory technologist variances may occur. Joshua Stewart MD UTER METHODS ANALYST documented in this encounter Plan of [...]
--- OUTSIDE RECORDS SUMMARY | 2024-09-03 20:04 | XMS_ITS | Encounter Summary ---
Author Organization [facility] Address [address] [facility] [address] [place] [address] Care Team Providers Care Cork Painter And Grader Name Role Phone Unavailable Primary Care Provider Unavailabl e Encounter Details Date Type Department Care Team (Late st Contact Info) Description 07/05/[address] [facility] [address] [place] [address] Brijesh Lynch MD [address] [place] [address] [address] [place] [address] Social History Tobacco Use Types Packs/Day Years [...] on file Legal Sex Female 2:59 PM CONSTRUCTION COST ESTIMATOR Gender Identity Female 03/27/2020 5:01 PM [...]
--- OUTSIDE RECORDS SUMMARY | 2024-09-03 20:04 | XMS_ITS | Encounter Summary ---
Author Organization [facility] Address [address] [facility] [address] [place] [address] Care Team Providers Care Rubberizing Mechanic Name Role Phone Unavailable Primary Care Provider Unavailabl e Encounter Details Date Type Department Care Team (Late st Contact Info) Description 03/14/2020 Telephone [facility] Family Medicine [address] [place] [address] Brijesh Lynch MD [address] [place] [address] [address] [place] [address] Social History Tobacco Use Types Packs/Day Years [...] file Legal Sex Female 2:59 PM ROUNDING AND BACKING MACHINE OPERATOR Gender Identity Female 03/27/2020 5:01 [...]
--- OUTSIDE RECORDS SUMMARY | 2024-09-03 20:04 | XMS_ITS | Encounter Summary ---
Author Organization [facility] Address [address] [facility] [address] [place] [address] Care Team Providers Care Professional Shopper Name Role Phone Unavailable Primary Care Provider Unavailabl e Reason for Visit * Reason Comments sinus pressure Swollen Glands asthma flare Encounter Details Date Type Department Care Team ([facility] st Contact Info) Description 05/30/2020 8:45 AM CDT Office Visit [facility] [address] [place] [address] Brijesh Lynch MD [address] [place] [address] Acute non-recurrent maxillary sinusitis (Primary Dx); Mild [...] file Legal Sex Female 2:59 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
--- OUTSIDE RECORDS SUMMARY | 2024-09-03 20:04 | XMS_ITS | Encounter Summary ---
Author Organization [facility] Healthcare Address [address] [place] [address] Care Team Providers Care Fibreglass Gun Hand Name Role Phone Unavailable Primary Care Provider Unavailabl e Encounter Details Date Type Department Care Team (Late st Contact Info) Description 10/23/2019 2:59 PM SUPERVISOR STRIPPING - 10/23/2019 6:38 PM SUPERVISOR STRIPPING Hospital Encounter [address] [address] Unknown, NotinfHua Chavez MD [address] [place] [address] Discharge Disposition: Discharge to home or self care Social History Tobacco Use Types Packs/Day Years Used Date Smoking Tobacco: Never Assessed Comments Unknown Sex and Gender Information Value Date Recorded Sex Assigned at Not on file Legal Sex Female 2:59 PM SUPERVISOR STRIPPING Gender Identity Female 03/27/2020 5:01 PM CDT Sexual Orientation Lesbian 03/27/2020 5: 01 PM CDT documented as of this encounter Last Filed Vital Signs Vital Sign Reading Time Taken Comments Blood Pressure 130/80 10/23/2019 3:05 PM SUPERVISOR STRIPPING Pulse 87 10/23/2019 3:05 PM SUPERVISOR STRIPPING Temperature 36.7 ??C (98.1 ??F) 10/23/2019 3:05 PM CS T Respiratory Rate - - Oxygen Saturation 96% 10/23/2019 3:05 PM SUPERVISOR STRIPPING Inhaled Oxygen Concentration - - Weight - [...] W/LYTES & LACTATE Routine 10/23/2019 5:04 PM SUPERVISOR STRIPPING INFLUENZA A/B PCR Routine 10/23/2019 4:0 5 PM SUPERVISOR STRIPPING CBC WITH AUTO DIFFERENTIAL Routine 10/23/2019 3:32 PM SUPERVISOR STRIPPING COMPREHENSIVE METABOLIC PANEL Routine 10/23/2019 3:32 PM SUPERVISOR STRIPPING XR CHEST 1 VIEW 10/23/2019 3:00 PM SUPERVISOR STRIPPING documented in this encounter Results * (ABNORMAL) BLOOD GAS w/LYTES & LACTATE (10/23/2019 5:04 PM SUPERVISOR STRIPPING) Specimen Type Arterial Blood [facility] Puncture Site RR [facility] Patient Temperature 37.0 C [facility] pH 7.49(H) 7.35 - 7.45 [facility] pCO2 32 32 - 48 mmHg [facility] pO2 123(H) 80 - 110 mmHg [facility] HCO3 24.4 22.0 - 26.0 mmol/L [facility] Total CO2 25.4 20.0 - 30.0 mmol/L [facility] Base Excess 1.6 -2.0 - 2.0 mmol/L [facility] Hb (BLOOD GAS) 13.3 12.1 - 15.1 g/dL [facility] O2 Saturation 97.0(H) 90.0 - 95.0 % [facility] ABG Carboxyhemoglobin 1.3 <3.0 % [facility] ABG Methemoglobin 1.2 <2.0 % [facility] ABG O2 Content 18.3 17.6 - 24.3 mg/dL [facility] Na+ (BLOOD GAS) 138 135 - 145 mmol/L [facility] K+ (BLOOD GAS) 2.9(L) 3.3 - 4.9 mmol/L [facility] Ionized Calcium 1.14 1.13 - 1.28 mmol/L [facility] GLUCOSE (BLOOD GAS) 171 65 - 199 mg/dL [facility] Lactate 3.4(HH) 0.5 - 2.0 mmol/L [facility] A-a O2 Difference -13.0 <=10.0 [facility] a/A Ratio 1.1 >=0.8 [facility] FiO2 21.0 % [facility] Crit Called By [id number] [facility] Crit Called Time 1705 [facility] [place] [place] [id number] [facility] Crit BG Read Back Y ME [facility] 10/23/2019 5:04 PM SUPERVISOR STRIPPING 10/23/2019 5:07 PM SUPERVISOR STRIPPING Narrative [facility] - 10/23/2019 5:11 PM SUPERVISOR STRIPPING Conditions Room Air Source Arterial Resulting Agency Comment ER Isa CASTELLON LAB BLOOD ORDERABLES Fin al Result [facility] [address] [phone] * Influenza A/B PCR (10/23/2019 4:05 PM SUPERVISOR STRIPPING) Influenza A RNA NEGATIVE NEGATIVE [facility] Influenza B RNA NEGATIVE NEGATIVE [facility] 10/23/2019 4:05 PM SUPERVISOR STRIPPING 10/23/2019 4:14 PM SUPERVISOR STRIPPING Narrative [facility] - 10/23/2019 4:48 PM SUPERVISOR STRIPPING Collected By [facility] Agency Comment ER us Isa CASTELLON LAB MICROBIOLOGY - GENER AL ORDERABLES Final Result [facility] [address] [place] [address], [facility] [phone] * (ABNORMAL) Comprehensive metabolic panel (10/23/2019 3:32 PM SUPERVISOR STRIPPING) Sodium 140 135 - 145 mmol/L [facility] Potassium 3.1(L) 3.3 - 5.1 mmol/L [facility] Chloride 102 96 - 108 mmol/L [facility] Carbon Dioxide 24 22 - 32 mmol/L [facility] Anion Gap 14 7 - 16 [facility] Glucose 105(H) 70 - 100 mg/dL [facility] BUN 9 8 - 25 mg/dL [facility] Creatinine 0.6 0.5 - 1.1 mg/dL [facility] Comment: NOTE: Estimated GFR (Cockroft-Gault) will NOT be calculated unless patient Height and Weight were entered. Also, Kidney Disease Stage (GFR) and Estimated GFR (Cockroft-Gault) will NOT be calculated if Creatinine result is <0.2. Kidney Disease Stage >90 mL/MIN [facility] Comment: NOTE; ??The GFR is an estimated [...] dialysis Calcium 9.5 8.6 - 10.3 mg/dL [facility] Total Protein 6.9 6.4 - 8.3 g/dL [facility] Albumin 4.2 3.5 - 5.0 g/dL [facility] Globulin 2.7 2.3 - 3.5 gm/dL [facility] Albumin/Globulin Ratio 1.6 1.1 - 1.8 [facility] Total Bilirubin 0.4 0.0 - 1.2 mg/dL [facility] AST 165(H) 0 - 32 U/L [facility] ALT 230(H) 0 - 33 U/L [facility] Alkaline Phosphatase 172(H) 35 - 104 U/L [facility] 10/23/2019 3:32 PM SUPERVISOR STRIPPING 10/23/2019 3:36 PM SUPERVISOR STRIPPING Narrative Resulting Agency Comment ER us Isa CASTELLON LAB BLOOD ORDERABLES Fin al Result [facility] [address] [place] [address], [facility] [phone] * CBC with auto differential (10/23/2019 3:32 PM SUPERVISOR STRIPPING) WBC 5.9 3.8 - 9.9 X10 3/ul [facility] RBC 4.41 3.90 - 5.20 x10 6/ul [facility] Hemoglobin 13.4 11.9 - 15.5 g/dL [facility] Hct 39.6 35.6 - 45.5 % [facility] MCV 89.8 81.3 - 96.4 fl [facility] MCH 30.4 27.1 - 33.3 pg [facility] MCHC 33.8 32.3 - 35.7 g/dl [facility] RDW 12.7 11.1 - 14.9 % [facility] Plt Count 288 150 - 400 x10 3/ul [facility] MPV 9.1 9.1 - 12.3 fl [facility] Neut % 57.8 % [facility] Immature Gran % 1.9 % [facility] Lymph % 30.2 % [facility] Dodge % 6.1 % [facility] Eos % 3.7 % [facility] AUTO BASO % 0.3 % [facility] NEUTROPHIL ABS # 3.4 1.7 - 6.5 x10 3/ul [facility] Immature Gran # 0.1 0.0 - 0.1 x10 3/ul [facility] Absolute Lymphs (auto) 1.8 0.8 - 3.3 x10 3/ul [facility] Absolute Monos (auto) 0.4 0.2 - 0.8 x10 3/ul [facility] Absolute Eos (auto) 0.2 0.0 - 0.5 x10 3/ul [facility] BASOPHIL ABS # 0.0 0.0 - 0.1 x10 3/ul [facility] Nucleat RBC Rel Count 0.0 #/100WBC [facility] NRBC abs 0.00 0.00 - 0.01 x10 3/ul [facility] Absolute Neutrophils 3,400 200 - 8,000 /ul [facility] 10/23/2019 3:32 PM SUPERVISOR STRIPPING 10/23/2019 3:36 PM SUPERVISOR STRIPPING Narrative Resulting Agency Comment ER us Isa CASTELLON LAB BLOOD ORDERABLES Fin al Result [facility] [address] [place] [address], [facility] [phone] * XR Chest 1 View (10/23/2019 3:00 PM SUPERVISOR STRIPPING) Anatomical Region Laterality Modality Body, Chest N/A Radiographic Dulce ging 10/23/2019 4:25 PM SUPERVISOR STRIPPING Narrative 10/23/2019 4:26 PM SUPERVISOR STRIPPING Patient Name: MAX DE LA GARZA ?Ordering Dr: Isa Graff PA-C ?? D.O.B: 1970 ? Exam Date: 10/23/19 ?? 1500 ?? Age: 49 ?Sex: Female ? MR#: [id number] ?? Loc: ? RADIOLOGY REPORT ?? Order #[id number] ?? Radiology ? Chest 1 View Portable [...] 4:26 PM ?? T: ? Report ID: [id number] ?? Reading Location: ??[id number] ? REPORT ELECTRONICALLY SIGNED IN OTHER VENDOR SYSTEM ?? Resulting Agency Comment E Procedure Note Richardson Herron MD - 10/23/2019 Patient Name: MAX DE LA GARZA Roel Dr: Isa Graff PA-C, D.O.B: 1970 Exam Date: 10/23/19 1500 Age: 49 Sex: Female MR#: [id number] Loc: RADIOLOGY REPORT Order #[id number] Radiology Chest 1 View Portable Signed EXAM [...] Richardson Herron M.D. MJ T: Report ID: [id number] Reading Location: [place] [address] REPORT ELECTRONICALLY SIGNED IN OTHER VENDOR SYSTEM Isa CASTELLON IMG XR PROCEDURES Final Result documented in this encounter Visit Diagnoses Not on filedocumented in this encounter
--- OUTSIDE RECORDS SUMMARY | 2024-09-03 20:04 | XMS_ITS | Encounter Summary ---
Author Organization [facility] Address [address] [address] Care Team Providers Care Lodging House Keeper Name Role Phone Unavailable Primary Care Provider Unavailabl e Reason for Referral * Pulmonology (Routine) - Closed Specialty Diagnoses / Procedures Referred By Sharlene angulo Referred To Contact Diagnoses Moderate persistent asthma with exacerbation Procedures Miscellaneous DME Brijesh Lynch MD Phone: tel: fax: Referral ID Status Reason Start Date Expiration Date Visits Re quested Visits Authorized [id number] Closed 10/24/2020 11/23/2021 1 1 TOP LINER * Diagnostic Imaging (Routine) - Closed Specialty Diagnoses / Procedures Referred By Sharlene angulo Referred To Contact Diagnoses Right elbow pain Procedures XR Elbow Right 3+ Vw Brijesh Lynch MD Phone: tel: fax: [facility] [address] [place] [address] Referral ID Status Reason Start Date Expiration Date Visits Re quested Visits Authorized [id number] Closed 10/24/2020 11/23/2021 1 1 TOP LINER Reason for Visit * Reason Comments Shortness of Breath Elbow Pain rt Encounter Details Date Type Department Care Team (Late st Contact Info) Description 10/24/2020 9:45 AM HOT TOP LINER Telemedicine [facility] Medical [facility] Family Medicine [address] [place] [address] Brijesh Lynch MD [address] [place] [address] Moderate persistent asthma with exacerbation (Primary Dx); [...] file Legal Sex Female 2:59 PM HOT TOP LINER Gender Identity Female 03/27/2020 5:01 PM [...] took place via real-time video connection with [employer]. During the visit, I was located in the office and the patient was located at home in the state of [place]. The patient visit started at 1010 and [...] Recurrent major depressive disorder, in full remission (CMS/[facility]) (F33.42) Comments: conditon chronc stblae continue the lexapro. Gastroesophageal reflux disease with esophagitis without hemorrhage (K21.00) Comments: conditoin chronic stblae continue aleksandra protonix Right elbow pain (M25.521) Comments: condition acute. xray Orders: - XR Elbow Right 3+ Vw; Future Muscle pain (M79.10) Comments: conditon chronci and not controlled. stop the flexeril start tizanadine Brijesh Lynch MD TOP LINER documented in this encounter Plan of Treatment Not on file documented as of this encounter Results * XR Elbow Right 3+ Vw (10/31/2020 8:39 AM HOT TOP LINER) Anatomical Region Laterality Modality Upper Extremities, Elbow Right Radiogr aphic Imaging 10/31/2020 4:02 PM HOT TOP LINER Narrative 10/31/2020 4:04 PM HOT TOP LINER Patient Name: MAX DE LA GARZA ?Ordering Dr: Brijesh Lynch MD ?? D.O.B: 1970 ? Exam Date: 12/21 ?? 0839 ?? Age: 50 ?Sex: Female ? MR#: [id number] ?? Loc: ? RADIOLOGY REPORT ?? Order #[id number] ?? Radiology ? Elbow RT 3 View [...] 4:04 PM ?? T: ? Report ID: [id number] ?? Reading Location: ??[id number] ? REPORT ELECTRONICALLY SIGNED IN OTHER VENDOR SYSTEM ?? Resulting Agency Comment O Procedure Note Will Arce MD - 10/31/2020 Patient Name: MAX DE LA GARZA Dr: Brijesh Lynch MD D.O.B: 1970 Exam Date: 10/31/20 0839 Age: 50 Sex: Female MR#: [id number] Loc: RADIOLOGY REPORT Order #[id number] Radiology Elbow RT 3 View Min Signed [...] Will Arce M.D. AG T: Report ID: [id number] Reading Location: [place] [address] REPORT ELECTRONICALLY SIGNED IN OTHER VENDOR SYSTEM [...]
--- OUTSIDE RECORDS SUMMARY | 2024-09-03 20:04 | XMS_ITS | Encounter Summary ---
Author Organization [facility] Address [address] [facility] [address] [place] [address] Care Team Providers Care Firmware Test Engineer Name Role Phone Unavailable Primary Care Provider Unavailabl e Reason for Visit * Reason Comments Follow-up lumbar back pain Encounter Details Date Type Department Care Team ([facility] st Contact Info) Description 05/22/2020 8:15 AM CDT Office Visit [facility] Family Medicine [address] [place] [address] Brijesh Lynch MD [address] [place] [address] Acute non-recurrent maxillary sinusitis (Primary Dx); Elevated [...] on file 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
--- OUTSIDE RECORDS SUMMARY | 2024-09-03 20:04 | XMS_ITS | Encounter Summary ---
Author Organization [facility] Address [address] [facility] [address] [place] [address] Care Team Providers Care Special Effects Artist Name Role Phone Unavailable Primary Care Provider Unavailabl e Reason for Visit * Reason Comments Follow-up lumbar back pain Encounter Details Date Type Department Care Team (Latest Contact Info) Description 04/24/2020 11:30 AM CDT Office Visit [facility] Family Medicine [address] [place] [address] Brijesh Lynch MD [address] [place] [address] Lumbar back pain with radiculopathy affecting left [...] on file Legal Sex Female 2:59 PM FLOOR TECH Gender Identity Female 03/27/2020 5:01 PM CDT [...] stand. States that she was seen at [facility] er and ct wa normal. States that [...]
--- OUTSIDE RECORDS SUMMARY | 2024-09-03 20:04 | XMS_ITS | Encounter Summary ---
Author Organization [facility] Address [address] [facility] [address] [address] Care Team Providers Care Eye Dropper Assembler Name Role Phone Unavailable Primary Care Provider Unavailabl e Reason for Visit * Reason Comments Follow-up lumbar back pain Discuss Test Results Mri back Encounter Details Date Type Department Care Team (Latest Contact Info) Description 05/08/2020 9:00 AM CDT Office Visit [facility] Family Medicine [address] [place] [address] Brijesh Lynch MD [address] [place] [address] Lumbar back pain (Primary Dx); Bulge of [...] on file 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
--- OUTSIDE RECORDS SUMMARY | 2024-09-03 20:04 | XMS_ITS | Encounter Summary ---
Author Organization [facility] Healthcare Address [address] [place] [address] Care Team Providers Care Single Ending Machine Operator Name Role Phone Unavailable Primary Care Provider Unavailabl e Reason for Visit * Diagnostic Imaging (Routine) - Closed Specialty Diagnoses / Procedures Referred By Sharlene angulo Referred To Contact Procedures Breast Imaging US Outside Reference Transcribed Order, Provider Referral ID Status Reason Start Date Expiration Date Visits Re quested Visits Authorized [id number] Closed 02/01/2022 03/03/2023 1 1 Encounter Details Date Type Department Care Team ([facility] st Contact Info) Description 01/02/2016 Ancillary Procedure [facility] Outside Images [address] [place] [address] Social History Tobacco Use Types Packs/Day Years Used Date Smoking Tobacco: Never Assessed Comments Unknown Sex and Gender Information Value Date Recorded Sex Assigned at Not on file Legal Sex Female 2:59 PM MARBLE POLISHER Gender Identity Female 03/27/2020 5:01 PM [...]
--- OUTSIDE RECORDS SUMMARY | 2024-09-03 20:04 | XMS_ITS | Encounter Summary ---
Author Organization [facility] Healthcare Address [address] [place] [address] Care Team Providers Care Shag Truck Driver Name Role Phone Unavailable Primary Care Provider Unavailabl e Encounter Details Date Type Department Care Team (Late st Contact Info) Description 01/02/2020 10:08 PM CDT - 01/02/2020 10:29 PM CDT Hospital Encounter [address] [address] Unknown, Nisha Howell PA [address] [place] [address] Discharge Disposition: Discharge to home or self care Social History Tobacco Use Types Packs/Day Years Used Date Smoking Tobacco: Never Assessed Comments Unknown Sex and Gender Information Value Date Recorded Sex Assigned at Not on file 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
--- OUTSIDE RECORDS SUMMARY | 2024-09-03 20:04 | XMS_ITS | Encounter Summary ---
Author Organization [facility] Address [address] [facility] [address] [place] [address] Care Team Providers Care Traveling Clerk Name Role Phone Unavailable Primary Care Provider Unavailabl e Reason for Referral * (Routine) - Closed Specialty Diagnoses / Procedures Referred By Sharlene t Referred To Contact Diagnoses Eustachian tube dysfunction, unspecified laterality Procedures Audiogram Lizette Hernandez Au.D. Phone: tel: fax: [facility] Medical [facility] Referral ID Status Reason Start Date Expiration Date Visits Re quested Visits Authorized [id number] Closed 08/07/2020 09/06/2021 1 1 MBLER ARRANGER Reason for Visit * Reason Comments Hearing Loss Encounter Details Date Type Department Care Team (Late st Contact Info) Description 08/07/2020 9:00 AM ASSEMBLER ARRANGER Procedure visit [facility] Medical [facility] [address] [place] [address] Lizette Hernandez Au.D. [address] [place] [address] Eustachian tube dysfunction, unspecified laterality (Primary Dx); [...] on file Legal Sex Female 2:59 PM ASSEMBLER ARRANGER Gender Identity Female 03/27/2020 5:01 PM CDT [...] Retest 12 months/PRN Hearing protection in noise MBLER ARRANGER documented in this encounter Plan of Treatment Not on file documented as of this encounter Procedures Procedure Name Priority Date/Time Associated Diagnosis Comments AUDIOGRAM Routine 08/07/2020 9:00 AM ASSEMBLER ARRANGER Eustachian tube dysfunction, unspecified laterality documented in this encounter Results * AUDIOGRAM (08/07/2020 9:00 AM ASSEMBLER ARRANGER) Narrative Lizette Hernandez Au.D. - 08/07/2020 9:00 AM ASSEMBLER ARRANGER Lizette Hernandez Au.D. ? 08/07/2020 ??1:31 PM [...]
--- OUTSIDE RECORDS SUMMARY | 2024-09-03 20:04 | XMS_ITS | Encounter Summary ---
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
--- OUTSIDE RECORDS SUMMARY | 2024-09-03 20:04 | XMS_ITS | Encounter Summary ---
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 Gender Identity Female 03/27/2020 5:01 PM [...] CDT) TSH 0.608 0.27 - 4.20 uIU/mL [facility] 03/14/2020 10:0 2 AM CDT 03/14/2020 10:19 AM CDT Narrative Resulting Agency Comment CLI us Brijesh Lynch MD LAB BLOOD ORDERABLES Final Resu lt Performing Organization Address [facility]/ZIP Co de Phone Number [address] [phone] * Vitamin B12 (03/14/2020 10:02 AM CDT) Vitamin B12 261 230 - 1,250 pg/mL [facility] 03/14/2020 10:0 2 AM CDT 03/14/2020 10:19 AM CDT Narrative Resulting Agency Comment CLI Brijesh Lynch MD LAB BLOOD ORDERABLES Final Resu lt [address] [place] [phone] documented in this encounter Visit Diagnoses Not on filedocumented in this encounter
--- OUTSIDE RECORDS SUMMARY | 2024-09-03 20:04 | XMS_ITS | Encounter Summary ---
Author Organization [facility] Address [address] [facility] [address] [place] [address] Care Team Providers Care Horticultural Nursery Assistant Name Role Phone Unavailable Primary Care Provider Unavailabl e Reason for Visit * Reason Comments Follow-up asthma Encounter Details Date Type Department Care Team ([facility] st Contact Info) Description 04/14/2020 1:45 PM CDT Office Visit [facility] Family Medicine [address] [place] [address] Brijesh Lynch MD [address] [place] [address] Lumbar back pain (Primary Dx); Irritable bowel [...] on file 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
--- OUTSIDE RECORDS SUMMARY | 2024-09-03 20:04 | XMS_ITS | Encounter Summary ---
Author Organization [facility] Medical Group Address [address] [place] [address] Care Team Providers Care Tax Attorney Name Role Phone Angeles Hernandze MD Unavailable [phone] Jeff Guzman Primary Care Provider [phone] Ramonita Crawford NP Primary Care Provider [phone] Encounter Details Date Type Department Care Team (Late st Contact Info) Description 12/26/2015 Orders Only [facility] Health Information Management [address] [place] [address] Brijesh Lynch MD [address] [place] [address] [address] [place] [id number] Social History Tobacco Use Types Packs/Day Years Used Date Smoking Tobacco: Never Assessed Comments Unknown Sex and Gender Information Value Date Recorded Sex Assigned at Not on file Legal Sex Female 2:59 PM BUSINESS PROPOSAL REP Gender Identity Female 03/27/2020 5:01 PM CDT [...] on filedocumented in this encounter Care Teams Tax Attorney Relationship Specialty Start Date End Date Jeff Guzman PA [address] [place] [address] PCP - General Family Medicine 06/21/22 02/17/23 Ramonita Crawford NP [address] [address] PCP - General Family Medicine 02/18/23 Angeles Hernandez MD [address] [place] [address] Referring Physician Gynecology 07/21/21 documented as of this encounter
--- OUTSIDE RECORDS SUMMARY | 2024-09-03 20:04 | XMS_ITS | Encounter Summary ---
Author Organization [facility] Healthcare Address [address] [place] [address] Care Team Providers Care Hotel Front Desk Clerk Name Role Phone Unavailable Primary Care Provider Unavailabl e Reason for Visit * Diagnostic Imaging (Routine) - Closed Specialty Diagnoses / Procedures Referred By Sharlene t Referred To Contact Procedures Breast Imaging Screening Outside Reference Transcribed Order, Provider Referral ID Status Reason Start Date Expiration Date Visits Re quested Visits Authorized [id number] Closed 02/01/2022 03/03/2023 1 1 Encounter Details Date Type Department Care Team ([facility] Contact Info) Description 07/05/2016 Ancillary Procedure [facility] Outside Images [address] [place] [address] Social History Tobacco Use Types Packs/Day Years Used Date Smoking Tobacco: Never Assessed Comments Unknown Sex and Gender Information Value Date Recorded Sex Assigned at Not on file Legal Sex Female 2:59 PM CONCESSIONIST Gender Identity Female 03/27/2020 5:01 PM CDT Sexual Orientation Lesbian 03/27/2020 5: 01 PM CDT documented as of this encounter Plan of Treatment Not on file documented as of this encounter Procedures Procedure Name Priority Date/Time Associated Diagnosis Comments BREAST IMAGING MG SCREENING OUTSIDE REFERENCE Routine 07/05/2016 12:00 AM CONCESSIONIST documented in this encounter Results * Breast Imaging Screening Outside Reference (07/05/2016 12:00 AM CONCESSIONIST) Narrative ETHAN_STACY_[facility] - 02/01/2022 8:54 AM CDT This order has been auto-finalized and does not contain a result. us Provider Transcribed Order IMG MAMMO PROCEDURES Final Result NICOLETTE_CINDY_[facility]_MHE documented in this encounter Visit Diagnoses Not on filedocumented in this encounter
--- OUTSIDE RECORDS SUMMARY | 2024-09-03 20:04 | XMS_ITS | Encounter Summary ---
Author Organization [facility] Medical Group Address [address] [place] [address] Care Team Providers Care Smoking Pipes Cleaner Name Role Phone Unavailable Primary Care Provider Unavailabl e Reason for Visit * Reason Comments Migraine left side Cyst Left jaw Hypertension Encounter Details Date Type Department Care Team ([facility] st Contact Info) Description 08/06/2020 3:00 PM ROSE GRADING SUPERVISOR Office Visit [facility] Family Medicine [address] [place] [address] Brijesh Lynch MD [address] [place] [address] Enlarged salivary gland (Primary Dx); Intractable chronic [...] on file Legal Sex Female 2:59 PM ROSE GRADING SUPERVISOR Gender Identity Female 03/27/2020 5:01 PM CDT Sexual Orientation Lesbian 03/27/2020 5: 01 PM CDT documented as of this encounter Last Filed Vital Signs Vital Sign Reading Time Taken Comments Blood Pressure 128/88 08/06/2020 2:57 PM ROSE GRADING SUPERVISOR Pulse 91 08/06/2020 2:57 PM ROSE GRADING SUPERVISOR Temperature 36.8 ??C (98.2 ??F) 08/06/2020 2:57 PM CS T Respiratory Rate 19 08/06/2020 2:57 PM ROSE GRADING SUPERVISOR Oxygen Saturation 99% 08/06/2020 2:57 PM ROSE GRADING SUPERVISOR Inhaled Oxygen Concentration - - Weight 87 kg (191 lb 12.8 oz) 08/06/2020 2:57 PM ROSE GRADING SUPERVISOR Height 167.6 cm (5' 6 ) 08/06/2020 2:57 PM ROSE GRADING SUPERVISOR Body Mass Index 30.96 08/06/2020 2:57 PM ROSE GRADING SUPERVISOR documented in this encounter Ordered Prescriptions Prescription [...] chrnoic stable continue care Brijesh Lynch MD GRADING SUPERVISOR documented in this encounter Plan of [...] 1 doseIndications:B12 deficiency Given 08/06/2020 4:05 PM ROSE GRADING SUPERVISOR 1,000 mcg Left Deltoid documented in this encounter
--- OUTSIDE RECORDS SUMMARY | 2024-09-03 20:04 | XMS_ITS | Encounter Summary ---
Author Organization [facility] Medical Group Address [address] [place] [address] Care Team Providers Care Rehabilitation Services Aide Name Role Phone Unavailable Primary Care Provider Unavailabl e Reason for Visit * Reason Comments Follow-up oral trush Encounter Details Date Type Department Care Team (Latest Contact Info) Description 07/10/2020 11:00 AM WHITE METAL CASTER Office Visit [facility] [address] [place] [address] Brijesh Lynch MD [address] [place] [address] Gastroesophageal reflux disease with esophagitis without hemorrhage [...] on file Legal Sex Female 2:59 PM WHITE METAL CASTER Gender Identity Female 03/27/2020 5:01 PM CDT Sexual Orientation Lesbian 03/27/2020 5: 01 PM CDT documented as of this encounter Last Filed Vital Signs Vital Sign Reading Time Taken Comments Blood Pressure 130/80 07/10/2020 11:33 AM WHITE METAL CASTER Pulse 75 07/10/2020 11:33 AM WHITE METAL CASTER Temperature 36.5 ??C (97.7 ??F) 07/10/2020 11:[address] Respiratory Rate 18 07/10/2020 11:33 AM WHITE METAL CASTER Oxygen Saturation 99% 07/10/2020 11:33 AM WHITE METAL CASTER Inhaled Oxygen Concentration - - Weight 85.7 kg (189 lb) 07/10/2020 11:33 AM WHITE METAL CASTER Height 167.6 cm (5' 6 ) 07/10/2020 11:33 AM WHITE METAL CASTER Body Mass Index 30.51 07/10/2020 11:33 AM WHITE METAL CASTER documented in this encounter Ordered Prescriptions Prescription [...] worse. refer to dr. tacos Lynch MD E METAL CASTER documented in this encounter Plan of Treatment Not on file documented as of this encounter Visit Diagnoses Diagnosis Gastroesophageal reflux disease with esophagitis without hemorrhage- Primary Seasonal allergic rhinitis due to pollen Lumbar back pain Lumbago Recurrent major depressive disorder, in full remission ([facility]) (HCC) Mixed conductive and sensorineural hearing [...]
--- OUTSIDE RECORDS SUMMARY | 2024-09-03 20:04 | XMS_ITS | Encounter Summary ---
Author Organization [facility] Healthcare Address [address] [place] [address] Care Team Providers Care Radiosonde Specialist Name Role Phone Unavailable Primary Care Provider Unavailabl e Encounter Details Date Type Department Care Team (Late st Contact Info) Description 11/15/2019 8:51 PM CDT - 11/15/2019 11:07 PM CDT Hospital Encounter [address] [phone] Unknown, Eze Toussaint II, MD [address] [place] [address] Discharge Disposition: Discharge to home or self care Social History Tobacco Use Types Packs/Day Years Used Date Smoking Tobacco: Never Assessed Comments Unknown Sex and Gender Information Value Date Recorded Sex Assigned at Not on file Legal Sex Female 2:59 PM FOOD OR BAGGAGE HANDLING RAMPMAN Gender Identity Female 03/27/2020 5:01 PM CDT [...] WBC 4.9 3.8 - 9.9 X10 3/ul [facility] RBC 4.15 3.90 - 5.20 x10 6/ul [facility] Hemoglobin 12.7 11.9 - 15.5 g/dL [facility] Hct 37.9 35.6 - 45.5 % [facility] MCV 91.3 81.3 - 96.4 fl [facility] MCH 30.6 27.1 - 33.3 pg [facility] MCHC 33.5 32.3 - 35.7 g/dl [facility] RDW 12.5 11.1 - 14.9 % [facility] Plt Count 260 150 - 400 x10 3/ul [facility] MPV 9.6 9.1 - 12.3 fl [facility] Neut % 62.3 % [facility] Immature Gran % 0.4 % [facility] Lymph % 24.2 % [facility] Box Elder % 7.4 % [facility] Eos % 5.3 % [facility] AUTO BASO % 0.4 % [facility] NEUTROPHIL ABS # 3.0 1.7 - 6.5 x10 3/ul [facility] Immature Gran # 0.0 0.0 - 0.1 x10 3/ul [facility] Absolute Lymphs (auto) 1.2 0.8 - 3.3 x10 3/ul [facility] Absolute Monos (auto) 0.4 0.2 - 0.8 x10 3/ul [facility] Absolute Eos (auto) 0.3 0.0 - 0.5 x10 3/ul [facility] BASOPHIL ABS # 0.0 0.0 - 0.1 x10 3/ul [facility] Nucleat RBC Rel Count 0.0 #/100WBC [facility] NRBC abs 0.00 0.00 - 0.01 x10 3/ul [facility] Absolute Neutrophils 3,000 200 - 8,000 /ul [facility] 11/15/2019 9:38 PM CDT 11/15/2019 9:42 PM CDT Narrative Resulting Agency Comment ER us Eze Rodriugez II, MD LAB BLOOD ORDERABLES Kristel l Result [facility] [address] [place], [place] [id number] [place] [address] * (ABNORMAL) Comprehensive metabolic panel (11/15/2019 9:37 PM CDT) [facility] Sodium 139 135 - 145 mmol/L [facility] Potassium 3.9 3.3 - 5.1 mmol/L [facility] Chloride 106 96 - 108 mmol/L [facility] Carbon Dioxide 24 22 - 32 mmol/L [facility] Anion Gap 9 7 - 16 [facility] Glucose 93 70 - 100 mg/dL [facility] BUN 13 8 - 25 mg/dL [facility] Creatinine 0.5 0.5 - 1.1 mg/dL [facility] Comment: NOTE: Estimated GFR (Cockroft-Gault) will NOT be calculated unless patient Height and Weight were entered. Also, Kidney Disease Stage (GFR) and Estimated GFR (Cockroft-Gault) will NOT be calculated if Creatinine result is <0.2. Kidney Disease Stage >90 mL/MIN [facility] Comment: NOTE; ??The GFR is an estimated [...] on dialysis Est GFR (Cockcroft-G) 147 ml/MIN [facility] Comment: Estimated GFR(Cockroft-Gault)is used to calculate patient medication dosage Calcium 8.6 8.6 - 10.3 mg/dL [facility] Total Protein 6.3(L) 6.4 - 8.3 g/dL [facility] Albumin 3.9 3.5 - 5.0 g/dL [facility] Globulin 2.4 2.3 - 3.5 gm/dL [facility] Albumin/Globulin Ratio 1.6 1.1 - 1.8 [facility] Total Bilirubin <0.2 0.0 - 1.2 mg/dL [facility] AST 129(H) 0 - 32 U/L [facility] ALT 92(H) 0 - 33 U/L [facility] Alkaline Phosphatase 182(H) 35 - 104 U/L [facility] 11/15/2019 9:37 PM CDT 11/15/2019 9:42 PM CDT Narrative Resulting Agency Comment ER us Eze Rodriguez II, MD LAB BLOOD ORDERABLES Kristel l Result Performing Organization Address City/[facility]/ZIP Co de Phone Number [address] [phone] * Influenza A/B PCR (11/15/2019 9:32 PM CDT) Influenza A RNA NEGATIVE NEGATIVE [facility] Influenza B RNA NEGATIVE NEGATIVE [facility] 11/15/2019 9:32 PM CDT 11/15/2019 9:58 PM CDT Narrative [facility] - 11/15/2019 10:33 PM CDT Collected By axg Resulting Agency Comment ER us Eze Rodriguez II, MD LAB MICROBIOLOGY - GENERA L ORDERABLES Final Result [address] [phone] * XR Chest 1 View (11/15/2019 12:00 AM CDT) Anatomical Region Laterality Modality Body, Chest N/A Radiographic Dulce ging 11/15/2019 9:56 PM CDT Narrative 11/15/2019 9:56 PM CDT Patient Name: MAX DE LA GARZA ?Ordering Dr: Eze Rodriguez MD ?? D.O.B: 1970 ? Exam Date: 11/15/19 ?? 0000 ?? Age: 49 ?Sex: Female ? MR#: [id number] ?? Loc: ? RADIOLOGY REPORT ?? Order #[id number] ?? Radiology ? Chest 1 View Portable [...] 9:56 PM ?? T: ? Report ID: [id number] ?? Reading Location: ??[id number] ? REPORT ELECTRONICALLY SIGNED IN OTHER VENDOR SYSTEM ?? Resulting Agency Comment E Procedure Note Carroll Medina MD - 11/15/2019 Patient Name: MAX DE LA GARZA Dr: Eze Rodriguez MD D.O.B: 1970 Exam Date: 11/15/19 0000 Age: 49 Sex: Female MR#: [id number] Loc: RADIOLOGY REPORT Order #[id number] Radiology Chest 1 View Portable Signed EXAM [...] signed by Carroll LORENZO T: Report ID: [id number] Reading Location: [id number] REPORT ELECTRONICALLY SIGNED IN OTHER VENDOR SYSTEM Eze Rodriguez II, MD IMG XR PROCEDURES Final R esult documented in this encounter Visit Diagnoses Not on filedocumented in this encounter
--- OUTSIDE RECORDS SUMMARY | 2024-09-03 20:04 | XMS_ITS | Encounter Summary ---
Author Organization [facility] Healthcare Address [address] [place] [address] Care Team Providers Care Cyber Analyst Name Role Phone Unavailable Primary Care Provider Unavailabl e Reason for Referral * Diagnostic Imaging (Routine) - Closed Specialty Diagnoses / Procedures Referred By Contac t Referred To Contact Diagnoses Lumbar back pain with radiculopathy affecting left lower extremity Procedures MRI Lumbar Spine WO Contrast Brijesh Lynch MD Phone: tel: fax: [address] [address] Referral ID Status Reason Start Date Expiration Date Visits Re quested Visits Authorized [id number] Closed 05/05/2020 11/01/2020 1 1 Encounter Details Date Type Department Care Team (Latest Contact Info) Description 05/06/2020 8:16 PM CDT Hospital Encounter [facility]IM Brijesh Lynch MD [address] [place] [address] Lumbar back pain with radiculopathy affecting [...] on file Legal Sex Female 2:59 PM TRANSFORMER 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 ?? Age: 49 ?Sex: Female ? MR#: [id number] ?? Loc: ? RADIOLOGY REPORT ?? Order #[id number] ?? Magnetic Resonance Imaging ? MRI Lumbar [...] 11:40 PM ?? T: ? Report ID: [id number] ?? Reading Location: ??[place] [address] ? REPORT ELECTRONICALLY SIGNED IN OTHER VENDOR SYSTEM ?? Resulting Agency Comment O Procedure Note Richardson Prieto, - 05/06/2020 Patient Name: HOLLIMAX Dr: Brijesh Lynch MD D.O.B: 1970 Exam Date: 05/06/202042 Age: 49 Sex: Female MR#: [id number] [id number] Order #[id number] Magnetic Resonance Imaging MRI Lumbar Signed EXAM [...] signed by Richardson BOSTON T: Report ID: [id number] Reading Location: [place] [address] REPORT ELECTRONICALLY SIGNED IN OTHER VENDOR SYSTEM Brijesh Lynch MD IM MRI PROCEDURES Final Result documented in this encounter Visit Diagnoses Diagnosis Lumbar back pain with radiculopathy affecting left lower extremity documented in this encounter
--- OUTSIDE RECORDS SUMMARY | 2024-09-03 20:04 | XMS_ITS | Encounter Summary ---
Author Organization [facility] Medical Group Address [address] [place] [address] Care Team Providers Care Welder Gas Tungsten Arc Name Role Phone Unavailable Primary Care Provider Unavailabl e Reason for Visit * Reason Comments Follow-up sinusitis, feeling better but not dealing with thrush Encounter Details Date Type Department Care Team ([facility] st Contact Info) Description 06/09/2020 9:30 AM CDT Office Visit [facility] Family Medicine [address] [place] [address] Brijesh Lynch MD [address] [place] [address] Oral thrush (Primary Dx); Mild intermittent asthma, unspecified whether complicated; Irritable bowel syndrome with constipation; Recurrent major depressive disorder, in full remission ([facility]) Social History Tobacco Use Types Packs/Day Years [...] on file Legal Sex Female 2:59 PM TRANSCRIBING OPERATOR HEAD Gender Identity Female 03/27/2020 5:01 PM CDT [...] Recurrent major depressive disorder, in full remission ([facility]) (F33.42) Comments: conditon chronic stable contineu care Brijesh Lynch MD documented in this encounter Plan of Treatment Not on file documented as of this encounter Visit Diagnoses Diagnosis Oral thrush- Primary Candidiasis of mouth Mild intermittent asthma, unspecified whether complicated Irritable bowel syndrome with constipation Irritable bowel syndrome Recurrent major depressive disorder, in full remission ([facility]) (HCC) documented in this encounter Discontinued Medications [...]
--- OUTSIDE RECORDS SUMMARY | 2024-09-03 20:04 | XMS_ITS | Encounter Summary ---
Author Organization [facility] Address [address] [place] [address] Phone Care Team Providers Care Endocrinology Specialist Name Role Phone Unavailable Primary Care Provider Unavailabl e Reason for Referral * (Routine) - Closed Specialty Diagnoses / Procedures Referred By Contac t Referred To Contact Diagnoses Age-related nuclear cataract of right eye Procedures IOL Biometry - OU - Both Eyes Mary Ann Webster MD [address] [place] [address] Phone: tel: fax: [facility] (All Locations) Referral ID Status Reason Start Date Expiration Date Visits Re quested Visits Authorized [id number] Closed 09/10/2020 10/10/2021 1 1 FIELD CASE MANAGER Encounter Details Date Type Department Care Team (Late st Contact Info) Description 09/10/2020 Orders Only [facility] Ophthalmology [facility] [place] [place] [phone] Mary Ann Webster MD [address] [place] [address] Age-related nuclear cataract of right [...] on file Legal Sex Female 2:59 PM COMP FIELD CASE MANAGER Gender Identity Female 03/27/2020 5:01 PM [...]
--- OUTSIDE RECORDS SUMMARY | 2024-09-03 20:04 | XMS_ITS | Encounter Summary ---
Author Organization [facility] Medical Group Address [address] [place] [address] Care Team Providers Care Middle School Technology Teacher Name Role Phone Unavailable Primary Care Provider Unavailabl e Encounter Details Date Type Department Care Team (Late st Contact Info) Description 04/22/2020 Orders Only [facility] Health Information Management [address] [place] [address] Brijesh Lynch MD [address] [place] [address] [address] [place] [address] Social History Tobacco Use Types Packs/Day Years [...] on file Legal Sex Female 2:59 PM TIMBER SUPERVISOR Gender Identity Female 03/27/2020 5:01 PM [...]
--- OUTSIDE RECORDS SUMMARY | 2024-09-03 20:04 | XMS_ITS | Encounter Summary ---
Author Organization [facility] Medical Group Address [address] [place] [address] Care Team Providers Care Poultry Scientist Name Role Phone Unavailable Primary Care Provider Unavailabl e Reason for Visit * Reason Comments Follow-up sinusitis Encounter Details Date Type Department Care Team ([facility] st Contact Info) Description 06/02/2020 9:30 AM CDT Office Visit [facility] [address] [place] [address] Brijesh Lynch MD [address] [place] [address] Acute non-recurrent frontal sinusitis (Primary Dx); Mild [...] on file Legal Sex Female 2:59 PM RETARDER OPERATOR Gender Identity Female 03/27/2020 5:01 PM [...] syndrome with constipation (K58.1) Comments: conditoin [facility] care Recurrent major depressive disorder, in full remission ([facility]) (F33.42) Comments: condition chronic stbale contineu care [...] Recurrent major depressive disorder, in full remission ([facility]) (HCC) Yeast vaginitis documented in this encounter [...]
--- OUTSIDE RECORDS SUMMARY | 2024-09-03 20:04 | XMS_ITS | Encounter Summary ---
Author Organization [facility] Address [address] [place] [address] Phone Care Team Providers Care Car Body Designer Name Role Phone Unavailable Primary Care Provider Unavailabl e Reason for Referral * (Routine) - Closed Specialty Diagnoses / Procedures Referred By Contac t Referred To Contact Diagnoses Epiretinal membrane (ERM) of both eyes Procedures OCT, Retina - OU - Both Eyes Ángel Silva MD Phone: tel: fax: [facility] (All Locations) Referral ID Status Reason Start Date Expiration Date Visits Re quested Visits Authorized [id number] Closed 08/26/2020 09/25/2021 1 1 CORPORATE DEVELOPMENT Reason for Visit * Reason Comments DIRECTOR OF STRATEGY & MOBILE retinal eval Encounter Details Date Type Department Care Team (Late st Contact Info) Description 08/26/2020 10:00 AM VP CORPORATE DEVELOPMENT Office Visit [facility] Ophthalmology [facility] 6th Floor [id number] Basilio Jay MD PhD [address] [place] [id number] Epiretinal membrane (ERM) of both eyes [...] on file Legal Sex Female 2:59 PM VP CORPORATE DEVELOPMENT Gender Identity Female 03/27/2020 5:01 PM CDT Sexual Orientation Lesbian 03/27/2020 5: 01 PM CDT documented as of this encounter Patient Instructions * Patient Instructions* Basilio Jay MD - 08/26/2020 10:00 AM VP CORPORATE DEVELOPMENT Dilation instructions Please refer to your Dilating Eyedrops brochure for instructions regarding dilation. CORPORATE DEVELOPMENT documented in this encounter Progress Notes * [...] care as documented in the resident's note.. CORPORATE DEVELOPMENT documented in this encounter Miscellaneous Notes * Assessment & Plan Note - Basilio Jay MD - 08/26/2020 11:38 AM VP CORPORATE DEVELOPMENT Associated Problem(s): Pseudophakia of right eye SHE WILL CONTINUE TO FOLLOW WITH DR. Yuen CORPORATE DEVELOPMENT * Assessment & Plan Note - Ángel Silva MD - 08/26/2020 11:22 AM VP CORPORATE DEVELOPMENT Associated Problem(s): PCO (posterior capsular opacification), left Has mild PCO OS. Will send for YAG Cap to see if helps patient's constant blurriness . Patient understands that this will not improve floaters or ERM, which would require a retina surgery. Patient tolerates floaters at this time and no metamorphopsia from ERM. I think such a staged approach is reasonable and the patient agreed CORPORATE DEVELOPMENT CORPORATE DEVELOPMENT * Assessment & Plan Note - Ángel Silva MD - 08/26/2020 11:21 AM VP CORPORATE DEVELOPMENT Associated Problem(s): Epiretinal membrane (ERM) of both eyes Patient denies metamorphopsia, good visual acuity. Defer intervention at this time for ERM. CORPORATE DEVELOPMENT * Assessment & Plan Note - Ángel Silva MD - 08/26/2020 11:20 AM VP CORPORATE DEVELOPMENT Associated Problem(s): Vitreous syneresis of both eyes Significant floaters both eyes (OU), but tolerable for patient for now. Will plan for YAG cap OS first. I will see her again after the act to determine if her symptoms are improved and also to monitor the macular pucker. CORPORATE DEVELOPMENT CORPORATE DEVELOPMENT documented in this encounter Plan of Treatment Not on file documented as of this encounter Procedures Procedure Name Priority Date/Time Associated Diagnosis Comments OCT, RETINA - OU - BOTH EYES Routine 08/26/2020 11:37 AM VP CORPORATE DEVELOPMENT Epiretinal membrane (ERM) of both eyes documented in this encounter Results * OCT, Retina - OU - Both Eyes (08/26/2020 11:37 AM VP CORPORATE DEVELOPMENT) Anatomical Region Laterality Modality Head Optical Coherenc e Tomography Narrative 08/26/2020 11:37 AM VP CORPORATE DEVELOPMENT Right Eye Quality was good. Scan locations [...]
--- OUTSIDE RECORDS SUMMARY | 2024-09-03 20:04 | XMS_ITS | Encounter Summary ---
Author Organization [facility] Address [address] [place] [address] Care Team Providers Care Recreational Facilities Motel Manager Name Role Phone Unavailable Primary Care Provider Unavailabl e Reason for Referral * Diagnostic Imaging (Routine) - Closed Specialty Diagnoses / Procedures Referred By Sharlene t Referred To Contact Diagnoses Rotator cuff impingement syndrome of right shoulder Procedures XR Shoulder Right 2 or More Views Luis Manuel Barrientos MD [address] [place] [address] [address] C[address] [place] [address] Phone: tel: fax: [address] [phone] Referral ID Status Reason Start Date Expiration Date Visits Re quested Visits Authorized [id number] Closed 06/13/2020 07/13/2021 1 1 Encounter Details Date Type Department Care Team (Late st Contact Info) Description 06/17/2020 10:01 AM CDT Hospital Encounter [facility] INTERIM Luis Manuel Barrientos MD [address] [place] [address] DR CUEVAS [address] [place] [address] Rotator cuff impingement syndrome of right shoulder [...] on file Legal Sex Female 2:59 PM 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 Age: 50 ?Sex: Female ? MR#: [id number] ?? Loc: ? RADIOLOGY REPORT ?? Order #[id number] ?? Radiology ? Shoulder RT 2Vw Min [...] T: ??06/17/2020 1:28 PM ? Report ID: [id number] ?? Reading Location: ??[id number] ? REPORT ELECTRONICALLY SIGNED IN OTHER VENDOR SYSTEM ?? Resulting Agency Comment O Procedure Note Jamar Dupont MD - 06/17/2020 Patient Name: MAX DE LA GARZA Dr: Luis Manuel Barrientos MD D.O.B: 1970 Exam Date: 06/17/20 1002 Age: 50 Sex: Female MR#: [id number] Loc: RADIOLOGY REPORT Order #[id number] Radiology Shoulder RT 2Vw Min (STANDARD) Signed [...] Jamar Dupont M.D. AT: AT Report ID: [id number] Reading Location: [place] [address] REPORT ELECTRONICALLY SIGNED IN OTHER VENDOR SYSTEM Luis Manuel Barrientos MD IMG XR PROCEDURES Final Re sult documented in this encounter Visit Diagnoses Diagnosis Rotator cuff impingement syndrome of right shoulder documented in this encounter
--- OUTSIDE RECORDS SUMMARY | 2024-09-03 20:04 | XMS_ITS | Encounter Summary ---
Author Organization [facility] Address [address] [address] Care Team Providers Care Chef De Froid Name Role Phone Unavailable Primary Care Provider Unavailabl e Reason for Referral * Procedure (Routine) - Closed Specialty Diagnoses / Procedures Referred By Sharlene angulo Referred To Contact Diagnoses Rotator cuff impingement syndrome of right shoulder Procedures Large Joint (Hip, Knee, Shoulder) Injection: L subacromial bursa Luis Manuel Barrientos MD [address] [place] [address] DR [address] [place] [address] Phone: tel: fax: [facility] Referral ID Status Reason Start Date Expiration Date Visits Re quested Visits Authorized [id number] Closed 06/17/2020 07/17/2021 1 1 * Diagnostic Imaging (Routine) - Closed Specialty Diagnoses / Procedures Referred By Sharlene angulo Referred To Contact Diagnoses Rotator cuff impingement syndrome of right shoulder Procedures XR Shoulder Right 2 or More Views Luis Manuel Barrientos MD [address] [place] [address] DR [address]VAS [address] [place] [address] Phone: tel: fax: [address] [phone] Referral ID Status Reason Start Date Expiration Date Visits Re quested Visits Authorized [id number] Closed 06/13/2020 07/13/2021 1 1 Reason for Visit * Reason Comments Pain Encounter Details Date Type Department Care Team ([facility] st Contact Info) Description 06/17/2020 10:15 AM CDT Office Visit [facility] Orthopedics and Sports Medicine [facility] [address] [phone] Luis Manuel Barrientos MD [address] [facility] [address] [place] [address] Rotator cuff impingement syndrome of right shoulder [...] Manuel Barrientos MD Authorized by: Luis Manuel Barrienots MD Large Joint Injection/Aspiration: Consent Given by: [...] Procedure Name Priority Date/Time Associated Diagnosis Comments IA ARTHROCENTESIS ASPIR&/INJ MAJOR JT/BURSA W/O US Routine 06/17/2020 10:15 AM CDT Rotator cuff impingement syndrome of right shoulder documented in this encounter Results * IA ARTHROCENTESIS ASPIR&/INJ MAJOR JT/BURSA W/O US (06/17/2020 10:15 AM CDT) Narrative Luis Manuel Barrientos MD - 06/17/2020 10:15 AM CDT Luis Manuel Barrientos MD ? 06/17/2020 12:00 PM Large Joint (Hip, Knee, Shoulder) Injection: L subacromial bursa Performed by: Luis Manuel Barrientos MD Authorized by: Luis Manuel Barrientos MD Large Joint Injection/Aspiration: ??Consent Given by: [...] ?? Age: 50 ?Sex: Female ? MR#: [id number] ?? Loc: ? RADIOLOGY REPORT ?? Order #[id number] ?? Radiology ? Shoulder RT 2Vw Min [...] T: ??06/17/2020 1:28 PM ? Report ID: [id number] ?? Reading Location: ??[id number] ? REPORT ELECTRONICALLY SIGNED IN OTHER VENDOR SYSTEM ?? Resulting Agency Comment O Procedure Note Jamar Dupont MD - 06/17/2020 Patient Name: ERNESTO DE LA GARZAROBIN Sev[place] Dr: Luis Manuel Barrientos MD D.O.B: 1970 Exam Date: 06/17/20 1002 Age: 50 Sex: Female MR#: [id number] Loc: RADIOLOGY REPORT Order #[id number] Radiology Shoulder RT 2Vw Min (STANDARD) Signed [...] Jamar Dupont M.D. AT: AT Report ID: [id number] Reading Location: [place] [address] REPORT ELECTRONICALLY SIGNED IN OTHER VENDOR SYSTEM [...]
--- OUTSIDE RECORDS SUMMARY | 2024-09-03 20:05 | XMS_ITS | Encounter Summary ---
Author Organization [facility] Address [address] [facility] [address] [place] [address] Care Team Providers Care Delivery Agent Name Role Phone Angeles Hernandez MD Unavailable [phone] Jeff Guzman Primary Care Provider [phone] Ramonita Crawford NP Primary Care Provider [phone] Encounter Details Date Type Department Care Team (Late st Contact Info) Description 07/04/2015 Orders Only [facility] Health Information Management [address] [place] [address] Brijesh Lynch MD [address] [place] [address] [address] [place] [address] Social History Tobacco Use Types Packs/Day Years [...] on filedocumented in this encounter Care Teams Delivery Agent Relationship Specialty Start Date End Date Jeff Guzman PA [address] [place] [address] PCP - General Family Medicine 06/21/22 02/17/23 Ramonita Crawford NP [address] [address] PCP - General Family Medicine 02/18/23 Angeles Hernandez MD [address] [place] [address] Referring Physician Gynecology 07/21/21 documented as of this encounter
== END 2024-08-28 09:30 | disposition home or self-care (01) ==
PROVIDERS: Emergency Provider Registered Nurse; PCP Nurse Practitioner Family
DX: J45.41 Moderate persistent asthma with (acute) exacerbation (principal); Z20.822 Contact with and (suspected) exposure to COVID-19; G47.33 Obstructive sleep apnea (adult) (pediatric); I10 Essential (primary) hypertension; E78.5 Hyperlipidemia, unspecified; K21.9 Gastro-esophageal reflux disease without esophagitis
CPT/HCPCS: 71046; 87426; 87804; 99213; G0463

== ENCOUNTER 2024-10-19 09:29 | Emergency (ER) | payer OTHER, SELFPAY ==
[2024-10-19] VITALS (23 sets, daily range): BP systolic 161–184; BP diastolic 78–106; PULSE 53–84; RESP 7–20; TEMP 36.9; O2SAT 98–100
--- NOTE | 2024-10-19 11:55 | ED.GENADULT ---
HPI - General Adult General Chief complaint: Recheck/Abnormal Lab/Rx Stated complaint: htn x 2 days Time Seen by Provider: 10/19/24 11:22 Source: patient Mode of arrival: ambulatory Limitations: no limitations History of Present Illness HPI narrative: 54 YEARS OLD WHITE FEMALE DROVE HERSELF TO THE EMERGENCY ROOM COMPLAINING OF RIGHT FRONTAL HEADACHE RADIATING TO THE OCCIPITAL AREA THE STARTED 3 DAYS AGO, STEADY, BETTER IN THE MORNING, GET WORSE THE DAY GOES BY, SQUEEZING, ASSOCIATED WITH CHILLS, COLD FEELING, PAIN AT THE FRONT OF HER NECK. PATIENT BEEN TAKING [id number] MEDICATION WITHOUT ANY IMPROVEMENT. HISTORY OF MIGRAINE HEADACHE HYPERTENSION ASTHMA, PATIENT LIVES WITH HER DAUGHTER, DENIED ANY STRESS RECENTLY, DAUGHTER HAD FLU SYMPTOMS 2 WEEKS AGO,. PATIENT IS CONCERNED ABOUT HER BLOOD PRESSURE, Related Data Home Medications ?Medication ?Instructions ?Recorded ?Confirmed ?Last Taken ?Type omega 4-yvz-olz-fish oil 1,000 mg 2 cap PO DAILY 05/26/23 10/19/24 10/19/24 History (120 mg-180 mg) capsule (Fish Oil) Allergies Allergy/AdvReac Type Severity Reaction Status Date / Time Penicillins Allergy Severe Hives Verified 10/19/24 10:10 adhesive tape Allergy Intermediate Blister Verified 10/19/24 10:10 amlodipine Allergy Intermediate Hives Verified 10/19/24 10:10 Sulfa (Sulfonamide Allergy Intermediate Hives Verified 10/19/24 10:10 Antibiotics) tamoxifen Allergy Intermediate Hives Verified 10/19/24 10:10 Review of Systems Review of Systems: All systems reviewed & are unremarkable except as noted in HPI and below PMFSH Past Medical History Medical History Unsteadiness on feet Cough Duodenal papillary stenosis Otitis externa Insomnia Rash and nonspecific skin eruption Low back pain radiating to right leg Cervical radiculitis Urinary incontinence COVID-19 Takotsubo cardiomyopathy (02/2022) LEX (obstructive sleep apnea) With CPAP Elevated troponin Bradycardia (normal spontaneous vaginal delivery) x2 Pseudoangiomatous stromal hyperplasia of breast 2012 Depression Anxiety GERD (gastroesophageal reflux disease) Hypertension Hyperlipidemia Hx of migraines Asthma Surgical History Surgical History History of biliary duct stent placement H/O colonoscopy July 2024 Status post laser cataract surgery of right eye X2 H/O breast biopsy History of bowel resection (~2007) small intestine S/P laparoscopic cholecystectomy H/O oophorectomy Hx of appendectomy Family History Family History Mother Breast cancer Father Throat cancer Social History Social History Social History: Lifelong nonsmoker. Denies alcohol or drug use. Lives at home with her and her teenaged biological daughter. They also have 3 cats. She has a 2nd child who is older and has moved out. She is a full code. She nominates Cesia to be the individual to make medical decisions for her she is unable. 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 Gender identity (if verbalized by the patient): Female Sexual Orientation (if Verbalized by the Patient): Lesbian, Smith, or Homosexual Spiritual care concerns: No Exam Narrative: GENERAL APPEARANCE: WELL-DEVELOPED, WELL-NOURISHED SKIN: NORMAL COLOR HEAD: NORMOCEPHALIC, NONTRAUMATIC EYES: CLEAR CONJUNCTIVA ENT: OROPHARYNX NORMAL, EARS NORMAL, NOSE NORMAL NECK: SUPPLE, NONTENDER CHEST AND RESPIRATORY: AIRWAY PATENT, NO RESPIRATORY DISTRESS, NO ACCESSORY MUSCLE USE HEART: REGULAR RATE/RHYTHM ABDOMEN: SOFT, NONTENDER, NO ORGANOMEGALY, QUIET BOWEL SOUNDS VASCULAR: NORMAL PERIPHERAL PULSES, NORMAL CAPILLARY REFILL. MUSCULOSKELETAL: NORMAL RANGE OF MOTION, NONTENDER BACK NEUROLOGIC: ALERT AND ORIENTED ?3, AIRCRAFT WORKER IS NORMAL TESTED, NO GROSS MOTOR DEFICIT Course Vital Signs Vital signs: Vital Signs Pulse Rate 66 10/19/24 09:40 Respiratory Rate 17 10/19/24 09:40 Blood Pressure 184/87 H 10/19/24 09:40 Pulse Oximetry 100 10/19/24 09:40 Temperature 36.9 C 10/19/24 09:58 Pulse Rate 72 10/19/24 15:15 Respiratory Rate 12 10/19/24 15:15 Blood Pressure 171/90 H 10/19/24 13:45 Pulse Oximetry 98 10/19/24 15:15 Oxygen Delivery Room Air 10/19/24 09:58 Medical Decision Making MDM Narrative Medical decision making narrative: PATIENT CAME WITH HEADACHE VITAL SIGNS SHOWING BLOOD PRESSURE 184/87 PHYSICAL EXAMINATION, UNREMARKABLE DIFFERENTIAL DIAGNOSIS ANXIETY LIKE SYMPTOMS, VIRAL SYNDROME, ELECTROLYTE IMBALANCE, DEHYDRATION, URINARY TRACT INFECTION, LESS LIKELY TEMPORALIS ARTHRITIS, INTRACRANIAL PATHOLOGY BLOOD WORKUP TODAY INCLUDES CBC, CMP, SED RATE SHOWED AST 86 ALT 113 ALKALINE PHOSPHATASE 209, NORMAL BILIRUBIN, NORMAL TSH, CT HEAD WITHOUT CONTRAST SHOWED NO ACUTE ABNORMALITY URINALYSIS SHOWED NO EVIDENCE OF INFECTION CHEST X-RAY SHOWED NO ACUTE ABNORMALITY DIAGNOSIS AT THE TIME OF DISCHARGE HYPERTENSION AND HEADACHE Differential Diagnosis Differential Diagnosis: ABOVE Vital Signs Vital Signs: Vital Signs Pulse Rate 66 10/19/24 09:40 Respiratory Rate 17 10/19/24 09:40 Blood Pressure 184/87 H 10/19/24 09:40 Pulse Oximetry 100 10/19/24 09:40 Temperature 36.9 C 10/19/24 09:58 Pulse Rate 72 10/19/24 15:15 Respiratory Rate 12 10/19/24 15:15 Blood Pressure 171/90 H 10/19/24 13:45 Pulse Oximetry 98 10/19/24 15:15 Oxygen Delivery Room Air 10/19/24 09:58 Lab Data 10/19/24 12:17 10/19/24 12:17 Labs: Lab Results 10/19/24 Range/Units 12:17 WBC 6.0 (4.5-10.0) K/mm3 RBC 4.58 (4.2-5.4) M/mm3 Hgb 13.2 (12.0-15.0) g/dL Hct 40.3 (37.0-47.0) % MCV 88.0 (80-100) fl MCH 28.8 (26-34) pg MCHC 32.8 (32-36) g/dl RDW 12.8 (11.5-14.5) % Plt Count 295 (150-375) k/mm3 MPV 10.2 (7.4-10.4) fl Immature Gran % (Auto) 0.5 (0-0.5) % Neut % (Auto) 72.6 (45.5-73.1) % Lymph % (Auto) 17.9 L (18.3-44.2) % [place] % (Auto) 5.3 (2.6-8.5) % Eos % (Auto) 3.2 (0-4.4) % Baso % (Auto) 0.5 (0.2-1.2) % Lymph # (Auto) 1.08 (0.9-3.2) K/mm3 [place] # (Auto) 0.3 (0.1-0.6) K/mm3 Eos # (Auto) 0.2 (0-0.3) K/mm3 Baso # (Auto) 0.0 (0.0-0.1) K/mm3 Abs Immat Gran (auto) 0.03 (0.00-0.031) K/mm3 Absolute Neuts (auto) 4.4 (1.3-6.7) K/mm3 Absolute Nucleated RBC 0.000 (0.0-0.012) K/mm3 Nucleated RBC % 0.0 (0.0-0.2) % ESR 19 (0-20) mm/hr Sodium 142 (137-145) mmol/L Potassium 3.9 (3.4-5.0) mmol/L Chloride 106 (98-107) mmol/L Carbon Dioxide 22 (22-30) mmol/L Anion Gap 14 H (4-12) mmol/L BUN 10 (7-17) mg/dL Creatinine 0.65 L (0.7-1.0) mg/dL Estim Creat Clear Calc 94 ml/min Estimated GFR > 60 (59 - ) Glucose 97 (65-110) mg/dL Calcium 9.9 (8.4-10.2) mg/dL Total Bilirubin 0.8 (0.2-1.3) mg/dL AST 86 H (14-36) U/L ALT 113 H (6-35) U/L Alkaline Phosphatase 209 H (38-126) U/L Total Protein 8.0 (6.3-8.2) g/dL Albumin 4.5 (3.5-5.1) g/dL TSH 0.874 (0.465-4.680) uIU/mL Urine Color Yellow (Yellow) Urine Appearance Clear (Clear) Urine pH 8.5 (5.0-9.0) Ur Specific [place] 1.009 (1.001-1.035) Urine Protein Negative (Negative) mg/dL Urine Glucose (UA) Negative (Negative) mg/dL Urine Ketones Negative (Negative) mg/dL Ur Blood (Man) Negative (Negative) Urine Nitrate Negative (Negative) Urine Bilirubin Negative (Negative) Urine Urobilinogen 0.2 (<2.0) mg/dL Add Ur Microanalysis Reviewed Leukocyte Esterase Rfl 1+ H (Negative) [place]/UL Urine RBC 0-2 (0-2) /hpf Urine WBC 0-5 (0-3) /hpf Ur Squamous Epith Cells Occasional (Few) /hpf Urine Bacteria None seen /hpf Urine Casts 0-2 Influenza A (RT-PCR) Negative (Negative) Influenza B (RT-PCR) Negative (Negative) RSV (RT-PCR) Negative (Negative) SARS-CoV-2 RNA (RT-PCR) Negative (Negative) Imaging Data Radiologist's impression: Impressions Head CT 10/19/24 12:49 IMPRESSION: 1. Normal brain. Chest X-Ray 10/19/24 12:57 IMPRESSION: No focal infiltrate or effusion. Critical Care Time Critical Care Time Critical Care Time: No Discharge Plan Discharge Clinical Impression: Headache, Hypertension Patient Disposition: Home, Self-Care Condition: Stable Instructions: Acute Headache (DC), Hypertension (ED) Additional Instructions: RETURN IF SYMPTOMS ARE WORSENING , CALL YOUR FAMILY PHYSICIAN FOR APPOINTMENT, TAKE TYLENOL NEEDED FOR ACHES AND PAIN, CONTINUE HOME MEDICATIONS. Patient Language: Arabic Prescriptions: No Action omega 7-oce-axy-fish oil [Fish Oil] 1,000 mg (120 mg-180 mg) capsule 2 cap PO DAILY bupropion HCl [Wellbutrin XL] 300 mg tablet extended release 24 hr 300 mg PO QAM Qty: 30 11RF levalbuterol HCl 1.25 mg/3 mL solution for nebulization 1.25 mg inhalation TID PRN (Reason: Shortness Of Breath Or Wheezing) Qty: 90 3RF montelukast [Singulair] 10 mg tablet 10 mg PO HS Qty: 90 3RF pantoprazole 40 mg tablet,delayed release (DR/EC) 40 mg PO QAM Qty: 90 3RF albuterol sulfate 90 mcg/actuation HFA aerosol inhaler 1 - 2 inh inhalation Q4-6H PRN (Reason: shortness of breath or wheezing) Qty: 8.5 2RF carvedilol 3.125 mg tablet See Rx Instructions .ROUTE .COMPLEX Qty: 180 2RF Dose Instruction: TAKE 1 TABLET BY MOUTH EVERY 12 HOURS WITH FOOD Rx Instructions: TAKE 1 TABLET BY MOUTH EVERY 12 HOURS WITH FOOD docusate sodium [Colace] 100 mg capsule 100 mg PO BID Qty: 180 3RF cetirizine [Zyrtec] 10 mg tablet 10 mg PO DAILY Qty: 90 3RF lorazepam 0.5 mg tablet 0.5 mg PO DAILY PRN (Reason: anxiety) Qty: 30 1RF Rx Instructions: needs appt for further refills budesonide-formoterol 80-4.5 mcg/actuation HFA aerosol inhaler 2 puff inhalation Q12H Qty: 10.2 2RF amitriptyline 10 mg tablet 10 mg PO QHS Qty: 90 3RF Entresto 24-26 mg tablet See Rx Instructions .ROUTE .COMPLEX Qty: 60 5RF Dose Instruction: TAKE 1 TABLET BY MOUTH EVERY 12 HOURS Rx Instructions: TAKE 1 TABLET BY MOUTH EVERY 12 HOURS tizanidine 4 mg tablet 4 mg PO Q8H PRN (Reason: muscle spasticity) Qty: 90 3RF Follow-up/Referrals: Ramonita Crawford NP [Primary Care Provider] -
[2024-10-19] MEDS: KETOROLAC 30 MG/ML VIAL (*BKC) IV PUSH (12:18)
[2024-10-19] MEDS: SODIUM CHLORIDE 0.9% IV 1,000 ML 999 ML IV CONT (12:19)
[2024-10-19] MEDS: LORazepam INJ (*CRX) 2 MG/ML VIAL 1 MG IV PUSH (12:20)
[2024-10-19 12:39] LABS: Basophils Percent Auto 0.5 % (0.2-1.2); Eosinophils Absolute Auto 0.2 K/mm3 (0-0.3); Eosinophils Percent Auto 3.2 % (0-4.4); Hematocrit 40.3 % (37.0-47.0); Hemoglobin 13.2 g/dL (12.0-15.0); Immature Granulocyte Absolute 0.03 K/mm3 (0.00-0.031); Immature Granulocyte Percent A 0.5 % (0-0.5); Lymphocytes Absolute Auto 1.08 K/mm3 (0.9-3.2); Lymphocytes Percent Auto 17.9 % (18.3-44.2); Mean Corpuscular HGB Conc 32.8 g/dl (32-36); Mean Corpuscular Hemoglobin 28.8 pg (26-34); Mean Platelet Volume 10.2 fl (7.4-10.4); Monocytes Absolute Auto 0.3 K/mm3 (0.1-0.6); Monocytes Percent Auto 5.3 % (2.6-8.5); Neutrophils Absolute Auto 4.4 K/mm3 (1.3-6.7); Neutrophils Percent Auto 72.6 % (45.5-73.1); Platelet Count Result 295 k/mm3 (150-375); Red Blood Count 4.58 M/mm3 (4.2-5.4); Red Cell Distribution Width 12.8 % (11.5-14.5)
[2024-10-19 12:47] LABS: Alanine Aminotransferase 113 U/L (6-35); Albumin Level 4.5 g/dL (3.5-5.1); Alkaline Phosphatase 209 U/L (38-126); Anion Gap 14 mmol/L (4-12); Aspartate Amino Transferase 86 U/L (14-36); Bilirubin,Total 0.8 mg/dL (0.2-1.3); Blood Urea Nitrogen 10 mg/dL (7-17); Calcium 9.9 mg/dL (8.4-10.2); Carbon Dioxide 22 mmol/L (22-30); Chloride 106 mmol/L (98-107); Estimated CRCL calculation 94 ml/min; Estimated Glomerular Filt Rate > 60; Glucose 97 mg/dL (65-110); Potassium 3.9 mmol/L (3.4-5.0); Sodium 142 mmol/L (137-145)
[2024-10-19 13:03] LABS: Add Urine Microscopic? YES; Appearance Urine Clear (Clear); Bacteria Urine None Seen /hpf; Bilirubin Urine Negative (Negative); Blood Urine Negative (Negative); Color Urine Yellow (Yellow); Glucose Urine UA Negative (Negative); Ketones Urine Negative (Negative); Leukocyte Esterase Ur 1+ LEU/UL (Negative); Need Manual Microscopic Reviewed; Nitrate Urine Negative (Negative); Non Pathogenic Casts 0-2; Protein Urine Negative (Negative); RBC Urine 0-2 /hpf (0-2); Specific Grav Ur 1.009 (1.001-1.035); Squamous Epithelial Cell Urine Occasional /hpf (Few); Urobilinogen Urine 0.2 mg/dL (<2.0); WBC Urine 0-5 /hpf (0-3); pH Urine 8.5 (5.0-9.0)
[2024-10-19 13:15] LABS: Influenza A QL RT-PCR Negative (Negative); Influenza B QL RT-PCR Negative (Negative); RSV RNA, RT-PCR Negative (Negative); SARS-CoV-2 RNA PCR Negative (Negative)
[2024-10-19 13:18] LABS: Thyroid Stimulating Hormone 0.874 uIU/mL (0.465-4.680)
[2024-10-19 13:22] LABS: Erythrocyte Sedimentation Rate 19 mm/hr (0-20)
== END 2024-10-19 16:32 | disposition home or self-care (01) ==
PROVIDERS: Emergency Provider Emergency Medicine; PCP Nurse Practitioner Family
DX: R51.9 Headache, unspecified (principal); I10 Essential (primary) hypertension; Z20.822 Contact with and (suspected) exposure to COVID-19; E78.5 Hyperlipidemia, unspecified; J45.909 Unspecified asthma, uncomplicated; K21.9 Gastro-esophageal reflux disease without esophagitis; G47.33 Obstructive sleep apnea (adult) (pediatric); R32 Unspecified urinary incontinence; F41.9 Anxiety disorder, unspecified; F32.A Depression, unspecified; Z86.16 Personal history of COVID-19; Z98.41 Cataract extraction status, right eye; Z90.49 Acquired absence of other specified parts of digestive tract; Z79.899 Other long term (current) drug therapy
CPT/HCPCS: 36415; 70450; 71045; 80053; 81001; 84443; 85025; 85652; 87086; 87637; 96361; 96374; 96375; 99284; J1885; J2060; J7030

== ENCOUNTER 2025-01-01 19:18 | Emergency (ER) | payer OTHER, SELFPAY ==
[2025-01-01 19:20] VITALS: BP 149/88; PULSE 71; RESP 24; TEMP 37.5; O2SAT 98
--- NOTE | 2025-01-01 19:20 | ED_ITS ---
HPI - URI/Sore Throat General Chief Complaint: Upper Respiratory Infection Stated Complaint: Cough/Congestion Time Seen by Provider: 01/01/25 19:19 Source: patient Mode of arrival: ambulatory Limitations: no limitations History of Present Illness HPI Narrative: Chrissy is a 54-year-old female patient presenting to the clinic today with complaints of cough, runny nose, shortness of breath, and chest congestion x3 days. History of asthma. She is a nonsmoker. Took a Xopenex treatment prior to arrival. No fevers. Coughing up some white phlegm. Related Data Home Medications ?Medication ?Instructions ?Recorded ?Confirmed ?Last Taken ?Type omega 8-vzt-nkw-fish oil 1,000 mg 2 cap PO DAILY 05/26/23 11/14/24 10/19/24 History (120 mg-180 mg) capsule (Fish Oil) Allergies Allergy/AdvReac Type Severity Reaction Status Date / Time Penicillins Allergy Severe Hives Verified 01/01/25 19:29 adhesive tape Allergy Intermediate Blister Verified 01/01/25 19:29 amlodipine Allergy Intermediate Hives Verified 01/01/25 19:29 Sulfa (Sulfonamide Allergy Intermediate Hives Verified 01/01/25 19:29 Antibiotics) tamoxifen Allergy Intermediate Hives Verified 01/01/25 19:29 Review of Systems Review of Systems: Pertinent positives per HPI. Patient denies any fever, chills, rash, headache, visual changes, dizziness, chest pain, palpitations, nausea, vomiting, diarrhea, constipation, abdominal pain, or any urinary issues. PMFSH Past Medical History Medical History Unsteadiness on feet Cough Duodenal papillary stenosis Otitis externa Insomnia Rash and nonspecific skin eruption Low back pain radiating to right leg Cervical radiculitis Urinary incontinence COVID-19 Takotsubo cardiomyopathy (02/2022) LEX (obstructive sleep apnea) With CPAP Elevated troponin Bradycardia (normal spontaneous vaginal delivery) x2 Pseudoangiomatous stromal hyperplasia of breast 2012 Depression Anxiety GERD (gastroesophageal reflux disease) Hypertension Hyperlipidemia Hx of migraines Asthma Surgical History Surgical History History of biliary duct stent placement H/O colonoscopy July 2024 Status post laser cataract surgery of right eye X2 H/O breast biopsy History of bowel resection (~2007) small intestine S/P laparoscopic cholecystectomy H/O oophorectomy Hx of appendectomy Family History Family History Mother Breast cancer Father Throat cancer Social History Social History Social History: Lifelong nonsmoker. Denies alcohol or drug use. Lives at home with her and her teenaged biological daughter. They also have 3 cats. She has a 2nd child who is older and has moved out. She is a full code. She nominates Cesia to be the individual to make medical decisions for her she is unable. 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 Gender identity (if verbalized by the patient): Female Sexual Orientation (if Verbalized by the Patient): Lesbian, Smith, or Homosexual Spiritual care concerns: No Comments At the time of my signature, I reviewed and agree with the nursing past medical, surgical, social, and family history. There is no relevant family history pertinent to the patient complaint. Exam Narrative: General: Well-developed, well nourished, in no apparent distress Head: Normocephalic, atraumatic Eyes: Pupils equally round and reactive to light bilaterally, EOM intact, sclera and conjunctive clear, no discharge, lids normal Ears: TMs intact and clear, ear canals clear, no drainage, grossly hearing normal. Nose: Nares patent, no discharge, no inflammation, no sinus tenderness. Mouth: Oral pharynx without lesions or masses, good dentition, MMM. Neck: Supple, trachea midline, no enlargement of anterior or posterior cervical nodes, no thyroid masses or goiter palpable. Cardio: Regular rate and rhythm, s1 and s2 normal, no murmur appreciated. Resp: Rhonchi/Expiratory wheezing with diminished lung sounds in the bases, no rales or rubs Course Course Emergency Course: Portions of this record may have been created with voice recognition software. Level of Care: Express Care Visit Vital Signs Vital signs: Vital Signs Temperature 37.5 C 01/01/25 19:20 Pulse Rate 71 01/01/25 19:20 Respiratory Rate 24 H 01/01/25 19:20 Blood Pressure 149/88 H 01/01/25 19:20 Pulse Oximetry 98 01/01/25 19:20 Oxygen Delivery Room Air 01/01/25 19:20 Temperature 37.5 C 01/01/25 19:20 Pulse Rate 71 01/01/25 19:20 Respiratory Rate 24 H 01/01/25 19:20 Blood Pressure 149/88 H 01/01/25 19:20 Pulse Oximetry 98 01/01/25 19:20 Oxygen Delivery Room Air 01/01/25 19:20 Vital signs reviewed MDM - URI/Sore Throat MDM Narrative Medical decision making narrative: At the time of visit patient is resting comfortably on the exam table. Patient appears to be nontoxic. Medications: Solu-Medrol 125 mg IM given in the clinic today. DuoNeb treatment given in the clinic today. Lung sounds improved after treatment Plan: I suspect patient has asthma exacerbation. Prescription for prednisone and azithromycin was sent to the pharmacy. Supportive measures were discussed with the patient and they voiced understanding discharge instructions and agrees to treatment plan. Return precautions reviewed Differential Diagnosis Differential diagnosis: Likely upper respiratory infection, otitis media, sinusitis, viral infection, bronchitis, influenza, pharyngitis and other (COVID) Discharge Plan Discharge Clinical Impression: Asthma exacerbation Qualifiers: Asthma severity: unspecified severity Asthma persistence: unspecified Qualified Code(s): J45.901 - Unspecified asthma with (acute) exacerbation Patient Disposition: Home Condition: Stable Instructions: Antibiotic Form, COPD (Chronic Obstructive Pulmonary Disease) (ED) Additional Instructions: Take prescription medications only as prescribed-prednisone and azithromycin Continue inhalers and breathing treatments as prescribed Increase fluids and stay well hydrated Tylenol/motrin for pain/fever Flonase and OTC antihistamines as directed Vicks vapor rub to open sinuses Sinus rinses for congestion Cepacol spray, cough drops, throat lozenges, warm tea with honey/lemon, gargle salt water to soothe throat BRAT diet for diarrhea Clear liquids x 24 hours then advance as tolerated for nausea/vomiting Go to the ED if you develop a worsening in your condition- high fever not controlled by Tylenol or Motrin, dehydration, weakness, lethargy, shortness of breath, or chest pain. Follow up with your PCP in 3-5 days if symptoms persist. Patient Language: [place] Islander Prescriptions: New prednisone 20 mg tablet 40 mg PO DAILY 5 Days Qty: 10 0RF azithromycin 250 mg tablet See Rx Instructions .ROUTE .COMPLEX Qty: 6 0RF Rx Instructions: For 250 mg dose pack: take 500 mg today (day 1), then 250 mg for 4 days (days 2-5) No Action Entresto 49-51 mg tablet 1 tablet PO BID Qty: 60 5RF omega 9-wtb-jlp-fish oil [Fish Oil] 1,000 mg (120 mg-180 mg) capsule 2 cap PO DAILY bupropion HCl [Wellbutrin XL] 300 mg tablet extended release 24 hr 300 mg PO QAM Qty: 30 11RF levalbuterol HCl 1.25 mg/3 mL solution for nebulization 1.25 mg inhalation TID PRN (Reason: Shortness Of Breath Or Wheezing) Qty: 90 3RF montelukast [Singulair] 10 mg tablet 10 mg PO HS Qty: 90 3RF pantoprazole 40 mg tablet,delayed release (DR/EC) 40 mg PO QAM Qty: 90 3RF albuterol sulfate 90 mcg/actuation HFA aerosol inhaler 1 - 2 inh inhalation Q4-6H PRN (Reason: shortness of breath or wheezing) Qty: 8.5 2RF carvedilol 3.125 mg tablet See Rx Instructions .ROUTE .COMPLEX Qty: 180 2RF Dose Instruction: TAKE 1 TABLET BY MOUTH EVERY 12 HOURS WITH FOOD Rx Instructions: TAKE 1 TABLET BY MOUTH EVERY 12 HOURS WITH FOOD docusate sodium [Colace] 100 mg capsule 100 mg PO BID Qty: 180 3RF cetirizine [Zyrtec] 10 mg tablet 10 mg PO DAILY Qty: 90 3RF lorazepam 0.5 mg tablet 0.5 mg PO DAILY PRN (Reason: anxiety) Qty: 30 1RF Rx Instructions: needs appt for further refills budesonide-formoterol 80-4.5 mcg/actuation HFA aerosol inhaler 2 puff inhalation Q12H Qty: 10.2 2RF amitriptyline 10 mg tablet 10 mg PO QHS Qty: 90 3RF tizanidine 4 mg tablet 4 mg PO Q8H PRN (Reason: muscle spasticity) Qty: 90 3RF sertraline 100 mg tablet 100 mg PO DAILY Qty: 90 3RF Follow-up/Referrals: Ramonita Crawford NP [Primary Care Provider] - Stand Alone Forms: Work/School Release IP Time of Disposition: 19:33 Quality NIHSS Nursing Documentation ED NIHSS nursing documentation: reviewed/agree
--- OUTSIDE RECORDS SUMMARY | 2025-01-01 19:20 | XMS_ITS | Clinical Summary ---
Author Organization [facility] Address [address] [place] [address] Care Team Providers Care Supervisor Photostat Name Role Phone Ramonita Crawford PAOLA-LOAN CONSULTANT Primary Care Provider Source Comments [facility],non-owned Affiliates and Associated Physician Practices is amultiple site organization consisting of ambulatory clinics and hospital sitesin [place], [place], [place] and [place]. This disclosure is being madepursuant to the Care Everywhere program and may not contain all information available regarding this patient. Last updated 18.[facility] Allergies Active Allergy Reactions Criticality Noted Date Comments Amlodipine Base Urticaria Medium 11/29/2023 Amoxicillin Rash Medium 10/05/2020 Latex Urticaria Medium 02/07/2017 Penicillins Rash Medium 10/05/2020 Sulfamethoxazole W-Trimethoprim Itching,Swelling Medium 10/28/2021 Facial swelling & widespread itching Tamoxifen Urticaria,Rash High 02/07/2017 Medications * Be aware that medications may not be up to date on this document. Alwaysverify current medications with the patient. albuterol HFA (PROVENTIL;VENT SPENCER;PROAIR) 108 (90 Base) MCG/ACT inhaler Inhale 2 (two) puffs by mouth every 4 hours as needed 1 g 1 Active fluticasone propionate (Flonase) 50 MCG/ACT nasal spray SHAKE LIQUID AND USE 1 SPRAY IN EACH NOSTRIL DAILY NEEDED FOR NASAL CONGESTION 1 Active cetirizine (ZyrTEC) 10 MG tablet Take 1 (one) tablet by mouth once daily 2 Active rosuvastatin (Crestor) 5 MG tablet Take 1 (one) tablet by mouth once daily 2 Active sacubitril-vals tremayne (Entresto) 24-26 MG tablet Take 1 (one) tablet by mouth every 12 hours 2 Active tiZANidine (Zanaflex) 4 MG tablet Take 1 (one) tablet by mouth every 8 hours as needed 2 Active EPINEPHrine (Epipen) 0.3 MG/0.3ML auto-injector pen INJECT 0.3 ML(0.3 MG TOTAL) IN THE MUSCLE INSTRUCTED NEEDED FOR ANAPHYLAXIS; CALL 911 AFTER USE 2 Active Docusate Sodium (DSS) 100 MG Take 1 capsule by mouth 2 times daily 2 Active Albuterol Sulfate, sensor, 108 (90 Base) MCG/ACT AEPB Inhale 2 puffs by mouth every 6 hours as needed 2 Active amitriptyline (Elavil) 10 MG tablet Take 1 (one) tablet by mouth 4 Active buPROPion XL 24hr (Wellbutrin-XL) 300 MG tablet Take 1 (one) tablet by mouth every morning 4 Active carvedilol (Coreg) 3.125 MG tablet TAKE 1 TABLET BY MOUTH EVERY 12 HOURS WITH FOOD 4 Active montelukast (Singulair) 10 MG tablet Take 1 (one) tablet by mouth at bedtime 3 Active pantoprazole EC (Protonix) 40 MG tablet Take 1 (one) tablet by mouth once daily 3 Active sertraline (Zoloft) 50 MG tablet Take 1 (one) tablet by mouth once daily 4 Active Active Problems Problem Noted Date Diagnosed [...] (cerebral vascular accident) 05/23/2019 11/29/19 24 11/29/2023 Family History Medical History Relation Name Comments [...] Recorded Patient Health Questionnaire-2 Score 4 11/23/2023 Comments No Sex and Gender Information Value Date Recorded Sex Assigned at Not on file Legal Sex Female 11:33 AM YARDAGE ESTIMATOR Gender Identity Not on file Sexual Orientation Not on file Last Filed Vital Signs Vital Sign Reading Time Taken Comments Blood Pressure 122/70 11/29/2023 9:27 AM CDT Pulse 63 08/02/2022 9:19 AM YARDAGE ESTIMATOR Temperature 35.9 C (96.6 F) 11/29/2023 9:27 AM CDT Respiratory Rate 19 10/05/2020 3:30 PM YARDAGE ESTIMATOR Oxygen Saturation 100% 08/02/2022 9:19 AM YARDAGE ESTIMATOR Inhaled Oxygen Concentration - - Weight 82.6 [...] COLON CA SCREENING 1970 PAP SMEAR 1970 DTAP/TDAP/TD VACCINES (1 - Tdap) 1989 HEPATITIS B VACCINE (1 of 3 - 19+ 3-dose series) 1989 PNEUMOCOCCAL VACCINE 50+ (1 of 1 - PCV) 2020 ZOSTER VACCINE (1 of 2) 2020 SCREENING FOR DIABETES 11/29/2023 10/05/2020 COVID-19 VACCINE (1 - season) 2024 DEPRESSION SCREENING 08/22/2024 INFLUENZA VACCINE (Season Ended) 2025 MAMMOGRAM 06/09/2025 06/09/2023, 05/22, 05/18/2022, Additional history exists HEPATITIS C SCREENING Completed 07/26/2019 HIV SCREENING Completed 07/26/2019 HIB VACCINE Aged Out No longer eligi ble based on patient's age to complete this topic HPV VACCINE Aged Out No longer eligi ble based on patient's age to complete this topic MENINGOCOCCAL (Group B) VACCINE SHARED DECISION-MAKING Aged Out No longer eligible based on patient's age to complete this topic MENINGOCOCCAL GROUPS A/C/Y/W VACCINE Aged Out No longer eligible based on patient's age to complete this topic Procedures Procedure Name Priority Date/Time Associated Diagnosis Comments COMPREHENSIVE METABOLIC PANEL STAT 10/05/2020 2:12 PM YARDAGE ESTIMATOR from Last 3 Months or Most Recently Relevant to Health Maintenance Results * (ABNORMAL) COMPREHENSIVE METABOLIC PANEL (10/05/2020 2:12 PM YARDAGE ESTIMATOR) Glucose 135(H) 70 - 105 mg/dL 10/05/2020 2:36 PM YARDAGE ESTIMATOR [facility] Sodium 142 136 - 145 mmol/L 10/05/2020 2:36 PM YARDAGE ESTIMATOR [facility] Potassium 3.3(L) 3.5 - 5.1 mmol/L 10/05/2020 2:36 PM [facility] Chloride 106 98 - 107 mmol/L 10/05/2020 2:36 PM [facility] CO2 23 23 - 31 mmol/L 10/05/2020 2:36 PM [facility] Calcium 9.7 8.4 - 10.4 mg/dL 10/05/2020 2:36 PM [facility] Anion Gap 13 8 - 18 mmol/L 10/05/2020 2:36 PM [facility] Comment:Attention clinician: Reference Range change. BUN 10 9.8 - 20.1 mg/dL 10/05/2020 2:36 PM [facility] Creatinine 0.74 0.57 - 1.11 mg/dL 10/05/2020 2:36 PM [facility] Alkaline Phosphatase 181(H) 40 - 150 U/L 10/05/2020 2:36 PM [facility] Comment:Attention clinician: Reference Range change. ALT 90(H) 0 - 61 U/L 10/05/2020 2:36 PM [facility] AST 36(H) 5 - 34 U/L 10/05/2020 2:36 PM [facility] Protein Total 7.4 6.4 - 8.3 gm/dL 10/05/2020 2:36 PM [facility] Albumin 4.1 3.5 - 5.2 gm/dL 10/05/2020 2:36 PM [facility] Bilirubin Total 0.4 0.2 - 1.2 mg/dL 10/05/2020 2:36 PM [facility] Comment:Attention clinician: Reference Range change. eGFR by MDRD >60 >60 mL/min/1.7 3m2 10/05/2020 2:36 PM [facility] eGFR by MDRD >60 >60 mL/min/1.7 3m2 10/05/2020 2:36 PM [facility] Blood BLOOD SPECIMEN / Unknown Venipuncture / Unknown 10/05/2020 2:12 PM YARDAGE ESTIMATOR 10/05/2020 2:17 PM [facility] Santi Justo PA-C LAB - CHEMISTRY ORDERABLES Fin al Result [facility] [address] [id number] from Last 3 Months or Most Recently Relevant to Health Maintenance Insurance [facility] SELF PAY NO INSURANCE Member Subscriber Plan / Payer (Ef fective for All Dates) Name:[employer] Member ID:Not on file Relation to Subscriber:Not on file Name:MAX DE LA GARZA Subscriber ID:Not on file Address: [address] [place] [id number] Payer ID:Not on file Group ID:Not on file Type:Self Pay Address: [place], [place] Care Teams Supervisor Photostat Relationship Specialty Start Date End Date Ramonita Crawford, TURN MACHINE OPERATOR-LOAN CONSULTANT [address] [id number] PCP - General Nurse Practitioner 11/29/23
--- OUTSIDE RECORDS SUMMARY | 2025-01-01 19:20 | XMS_ITS | Encounter Summary ---
Author Organization [facility] Address [address] [place] [address] Phone Care Team Providers Care Laborer Syrup Machine Name Role Phone Angeles Hernandez MD Unavailable [phone] Jeff Guzman Primary Care Provider [phone] Ramonita Crawford NP Primary Care Provider [phone] Encounter Details Date Type Department Care Team [...] file Legal Sex Female 2:59 PM DATA OPERATIONS LEADER Gender Identity Female 03/27/2020 5:01 PM [...] on filedocumented in this encounter Care Teams Laborer Syrup Machine Relationship Specialty Start Date End Date Jeff Guzman PA [address] [place] [address] PCP - General Family Medicine 06/21/22 02/17/23 Ramonita Crawford NP [address] [facility] [address] PCP - General Family Medicine 02/18/23 Angeles Hernandez MD [address] [place], [place] [id number] Referring Physician Gynecology 07/21/21 documented as of this encounter
--- OUTSIDE RECORDS SUMMARY | 2025-01-01 19:20 | XMS_ITS | Continuity of Care Document ---
Author Organization [facility] Address [address] [place] [address] Phone Care Team Providers Care Lacing Presser Name Role Phone [facility] Unavailable Unavailable Procedures Procedure Date Cataract Surgery Anesthesia; Lens Advance Directives Directive Yes / No Effective Date File Name No Information Encounters Encounter Description Practice Location Reason(s) For Visit Diagnoses Date Provider Providers Copied on Encounter [facility], [address] [place] [address], [address], tel:[phone] [facility] No Information [place] [facility]. [address], [place], [place], [id number], . tel:[phone] Referring Provider: Veena Elise, [address] [place], [address]. tel:[phone] Family History Family Member Type Diagnosis Age At Onset No Information Payers Payer name Insurance type Covered democrat ID Dennys albarado(s) [place] Medicaid [id number] Social History Type Description Quantity Date Captured [...]
--- OUTSIDE RECORDS SUMMARY | 2025-01-01 19:21 | XMS_ITS | Encounter Summary ---
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
--- OUTSIDE RECORDS SUMMARY | 2025-01-01 19:21 | XMS_ITS | Referral Summary ---
Author Organization [address] Address [address] [place] [address] Care Team Providers Care Laser Beam Trim Operator Name Role Phone Angeles Hernandez MD Unavailable [phone] Ramonita Crawford NP Primary Care Provider [phone] Allergies Active Allergy Reactions Criticality Noted Date [...] 08/12/2021 Assessment & Plan (09/06/2022 9:29 AM WEATHERIZATION DIRECTOR): Chronic stable and well Controlled Continue ativan [...] 05/26/2021 Assessment & Plan (09/06/2022 9:29 AM WEATHERIZATION DIRECTOR): Chronic stable and at goal Continue with metorprolol Assessment & Plan (01/26/2022 4:28 PM CDT): Chronic condition stable well controlled continue hydralazine Assessment & Plan (11/18/2021 11:12 AM CDT): Chronic condition Stable and well control at goal with hydralazine Assessment & Plan (10/06/2021 4:50 PM WEATHERIZATION DIRECTOR): Chronic condition well-controlled stable but off metoprolol due to sinus bradycardia. She is currently on Holter monitor being followed by Cardiology. Assessment & Plan (07/07/2021 10:28 AM WEATHERIZATION DIRECTOR): Chronic condition improved control with metoprolol will [...] crestor Assessment & Plan (10/06/2021 4:52 PM WEATHERIZATION DIRECTOR): Chronic condition at goal rosuvastatin has made significant reduction in LDL will continue with current regimen CK is normal. AST ALT no nd normal Assessment & Plan (07/07/2021 10:17 AM WEATHERIZATION DIRECTOR): Chronic condition Start crestro 5mg Repeat lft [...] changes. Order lipid panel in 1 mo [facility] COVID-19 04/16/2021 Vitreous syneresis of both eyes 08/26/2020 Assessment & Plan (01/11/2023 8:42 AM CDT): + extensive vitreous opacities peripherally OU Assessment & Plan (08/26/2020 11:38 AM WEATHERIZATION DIRECTOR): Significant floaters both eyes (OU), but tolerable for patient for now. Will plan for YAG cap OS first. I will see her again after the act to determine if her symptoms are improved and also to monitor the macular pucker. Visual disturbance 07/29/2020 Assessment & Plan (07/29/2020 4:18 PM WEATHERIZATION DIRECTOR): +white light in vision left eye (OS) [...] 06/21/2023 Assessment & Plan (09/23/2023 10:46 AM WEATHERIZATION DIRECTOR): 2 months s/p Right Extraction Cataract - Phacoemulsification And Lens Implant - Right Doing well off all drops. MRX today to 20/20. Early PCO Assessment & Plan (07/04/2023 10:14 AM WEATHERIZATION DIRECTOR): POW1 Right Extraction Cataract - Phacoemulsification And [...] normal Assessment & Plan (09/15/2020 8:13 AM WEATHERIZATION DIRECTOR): Not yet VS BAT 20/[address] Moscoso for her routine eye care - back to me when VS Assessment & Plan (08/26/2020 11:38 AM WEATHERIZATION DIRECTOR): SHE WILL CONTINUE TO FOLLOW WITH DR. Yuen Assessment & Plan (07/29/2020 4:20 PM WEATHERIZATION DIRECTOR): Mild; not yet VS -follow PCO (posterior capsular opacification), left 03/2020 Assessment & Plan (02/18/2023 8:31 AM CDT): Open PC Clear view Assessment & Plan (09/15/2020 8:14 AM WEATHERIZATION DIRECTOR): PCO OS VS with glare Aware will not change ERM Plan for YAG OS today Follow 4 weeks, then to Dr. Moscoso thereafter Assessment & Plan (08/26/2020 11:38 AM WEATHERIZATION DIRECTOR): Has mild PCO OS. Will send for YAG Cap to see if helps patient's constant blurriness . Patient understands that this will not improve floaters or ERM, which would require a retina surgery. Patient tolerates floaters at this time and no metamorphopsia from ERM. I think such a staged approach is reasonable and the patient agreed Assessment & Plan (07/29/2020 4:20 PM WEATHERIZATION DIRECTOR): -sp cataract [facility]CE[facility] [place] [facility]: consider yag cap after retina eval Epiretinal membrane (ERM) of both eyes 0 Assessment & Plan (09/23/2023 10:45 AM WEATHERIZATION DIRECTOR): F/u with retina in 3 weeks. Assessment [...] point Assessment & Plan (09/15/2020 8:14 AM WEATHERIZATION DIRECTOR): ERM OU Observing with Dr. Jay Assessment & Plan (08/26/2020 11:22 AM WEATHERIZATION DIRECTOR): Patient denies metamorphopsia, good visual acuity. Defer intervention at this time for ERM. Assessment & Plan (07/29/2020 4:20 PM WEATHERIZATION DIRECTOR): left eye (OS)>>OD +pt complains of very [...] anxiety and depre ssed mood 05/15/2018 Immunizations Immunization Administration Dates Next Due Influenza, Unspecified 06/09/2021(Deferred: [...] on file Legal Sex Female 2:59 PM WEATHERIZATION DIRECTOR Gender Identity Female 03/27/2020 5:01 PM CDT Sexual Orientation Lesbian 03/27/2020 5: 01 PM CDT Last Filed Vital Signs Vital Sign Reading Time Taken Comments Blood Pressure 151/76 06/21/2023 10:30 AM CDT Pulse 52 06/21/2023 10:35 AM CDT Temperature 36 C (96.8 F) 06/21/2023 10:05 AM CDT Respiratory Rate 16 06/21/2023 10:35 AM CDT Oxygen Saturation 100% 06/21/2023 10:35 AM CDT Inhaled Oxygen Concentration - - Weight 86.9 kg (191 lb 8 oz) 06/21/2023 7:50 AM CDT Height 167.6 cm (5' 6 ) 06/21/2023 7:50 AM CDT Body Mass Index 30.91 06/21/2023 7:50 AM CDT Plan of Treatment Not on file Medical Devices Implanted Type Area Manager Of Selection And Assessment Device Identifier Shelf Expiration Date Model / Serial / Lot [employer] Acrysof Iq Natural Stableforce Acrysert 6mm 13mm 1 Piece Foldable Sn60wf.185 - [id number] - [id number] Implanted:Qty: 1 on 06/21/2023 by Mary Ann Webster MD at [facility] Right: Eye [employer] [id number] 11/07/2027 [id number].18 5 / [id number] / Explanted Type Area Manager Of Selection And Assessment Device Identifier Shelf Expiration Date Model / Serial / Lot [employer] Michelle Flexi-Stent 7fr 7cm Small Pigtail Flexible .035in Stent 6574 - [id number] Implanted:Qty: 1 on 05/09/2023 by Jordan Duff MD at [facility] Explanted:Qty: 1 on 05/11/2023 by Jordan Duff MD at [facility] N/A: Pancreas [employer] [id number] 12/21/2027 [id number] / / [id number] [employer] Shreya Wallflex 10mm X 60mm Fully Covered Biliary [id number] - [id number] Implanted:Qty: 1 on 05/09/2023 by Jordan Duff MD at [facility] Explanted:Qty: 1 on 05/11/2023 by Jordan Duff MD at [facility] N/A: Bile Duct [employer] Shreya 03/01/2025 [id number] / / [id number] Procedures Procedure Name Priority Date/Time Associated Diagnosis [...] SCREENING MAMMOGRAM HISTORY: Routine screening mammography. COMPARISON: 07/23/2022, 05/18/2022, 12/10/2020 TECHNIQUE: CC and MLO views [...] Advance Directives For more information, please contact: [phone] * Full Code (Latest Code Status on File) Date Activated Date Inactivated Comments 05/09/2023 5:28 PM 05/11/2023 10:17 PM Care Teams Laser Beam Trim Operator Relationship Specialty Start Date End Date Ramonita Crawford NP [address] [address] PCP - General Family Medicine 02/18/23 Angeles Hernandez MD [address] [address] Referring Physician Gynecology 07/21/21
--- OUTSIDE RECORDS SUMMARY | 2025-01-01 19:21 | XMS_ITS | Encounter Summary ---
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
--- OUTSIDE RECORDS SUMMARY | 2025-01-01 19:21 | XMS_ITS | Encounter Summary ---
Author Organization [facility] Address [address] [place] [address] Care Team Providers Care Transmission Rebuilder Name Role Phone Angeles Hernandez MD Unavailable [phone] Jeff Guzman Primary Care Provider [phone] Ramonita Crawford NP Primary Care Provider [phone] Encounter Details Date Type Department Care Team (Late st Contact Info) Description 07/04/2015 Orders Only [facility] Health Information Management [address] [place] [address] Brijesh Lynch MD [address] [place] [address] [address] [place] [address] Social History Tobacco Use Types Packs/Day Years Used Date Smoking Tobacco: Never Assessed Comments Unknown Sex and Gender Information Value Date Recorded Sex Assigned at Not on file 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
--- OUTSIDE RECORDS SUMMARY | 2025-01-01 19:21 | XMS_ITS | Encounter Summary ---
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
--- OUTSIDE RECORDS SUMMARY | 2025-01-01 19:21 | XMS_ITS | Encounter Summary ---
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 Gender Identity Female 03/27/2020 5:01 PM CDT Sexual Orientation Lesbian 03/27/2020 5: 01 PM CDT documented as of this encounter Functional Status documented as of this encounter Plan of Treatment Not on file documented as of this encounter Procedures Procedure Name Priority Date/Time Associated Diagnosis Comments SCAN - LABS 08/05/2021 documented in this encounter Results * SCAN - LABS (08/05/2021) us Provider Scanning Final Result documented in this encounter Visit Diagnoses Not on filedocumented in this encounter Care Teams Boat Dock Operator Relationship Specialty Start Date End Date Jeff Guzman PA [address] [place] [address] PCP - General Family Medicine 06/21/22 02/17/23 Ramonita Crawford NP [address] [address] PCP - General Family Medicine 02/18/23 Angeles Hernandez MD [address] [place], [place] [address] Referring Physician Gynecology 07/21/21 documented as of this encounter
--- OUTSIDE RECORDS SUMMARY | 2025-01-01 19:21 | XMS_ITS | Encounter Summary ---
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
--- OUTSIDE RECORDS SUMMARY | 2025-01-01 19:21 | XMS_ITS | Encounter Summary ---
Author Organization [facility] Address [address] [place] [address] Care Team Providers Care Wet Char Conveyor Tender Name Role Phone Angeles Hernandez MD Unavailable [phone] Jeff Guzman Primary Care Provider [phone] Ramonita Crawford NP Primary Care Provider [phone] Encounter Details Date Type Department Care Team (Late st Contact Info) Description 12/26/2015 Orders Only [facility] Health Information Management [address] [place] [address] Brijesh Lynch MD [address] [place] [address] [address] [place] [id number] Social History Tobacco Use Types Packs/Day Years Used Date Smoking Tobacco: Never Assessed Comments Unknown Sex and Gender Information Value Date Recorded Sex Assigned at Not on file 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
--- OUTSIDE RECORDS SUMMARY | 2025-01-01 19:21 | XMS_ITS | Encounter Summary ---
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
--- OUTSIDE RECORDS SUMMARY | 2025-01-01 19:21 | XMS_ITS | Encounter Summary ---
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
--- OUTSIDE RECORDS SUMMARY | 2025-01-01 19:21 | XMS_ITS | Encounter Summary ---
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
--- OUTSIDE RECORDS SUMMARY | 2025-01-01 19:21 | XMS_ITS | Continuity of Care Document ---
Author Organization [facility]. Address [address] [place] [address] Phone Care Team Providers Care Computer Programming Supervisor Name Role Phone Veena Dixon MD Unavailable [...] Copied on Encounter [facility] [address], [address], [place] tel:[phone] [facility] No Information Zack Curiel. [address] [place] [address], [facility], . tel:[phone] [facility] [address], [address], [place] tel:[phone] [place] 1 week PO PCIOL OS near (chief complaint) Presence of intraocular lens Zack Curiel. [address] [place] [address], [facility], [place]. tel:[phone] Referring Provider: Veena Elise, [address] [place] [address], [facility]. tel:[phone] [facility] [address], [facility], tel:[phone] [place] [place] [facility] 1 day PO PCIOL OS (chief complaint) Presence of intraocular lens Zack Curiel. [address] [place] [address], [facility], [place]. tel:[phone] Referring Provider: Veena Elise, [address] [place] [address], [facility]. tel:[phone] [facility] [address], [address], [place] tel:[phone] [facility] No Information Zack Curiel. [address] [place] [address], [address], [place]. tel:[phone] Referring Provider: Veena Elise [address] [place] [address], [address]. tel:[phone] [facility] [address], [address], [place] tel:[phone] [place] [facility] No Information Zack Curiel. [address] [place] [address], [address], [place]. tel:[phone] [facility] [address], [place], [address], [place] tel:[phone] [employer] [facility] CAT EVAL OU (chief complaint) Age-related nuclear cataract of left eyeAge-relate d nuclear cataract of right eye Zack Curiel. [address] [place], [address], [place]. tel:[phone] Referring Provider: Sly Bah, [place], [address]. tel:[phone] Family History Family Member Type Diagnosis Age [...]
--- OUTSIDE RECORDS SUMMARY | 2025-01-01 19:21 | XMS_ITS | Clinical Summary ---
Author Organization [address] Address [address] [place] [id number] Care Team Providers Care Communications Attendant Name Role Phone Angeles Hernandez MD Unavailable [phone] Ramonita Crawford NP Primary Care Provider [phone] Allergies Active Allergy Reactions Criticality Noted Date [...] 08/12/2021 Assessment & Plan (09/06/2022 9:29 AM MEDICAL SOCIAL WORKER): Chronic stable and well Controlled Continue ativan [...] 05/26/2021 Assessment & Plan (09/06/2022 9:29 AM MEDICAL SOCIAL WORKER): Chronic stable and at goal Continue with metorprolol Assessment & Plan (01/26/2022 4:28 PM CDT): Chronic condition stable well controlled continue hydralazine Assessment & Plan (11/18/2021 11:12 AM CDT): Chronic condition Stable and well control at goal with hydralazine Assessment & Plan (10/06/2021 4:50 PM MEDICAL SOCIAL WORKER): Chronic condition well-controlled stable but off metoprolol due to sinus bradycardia. She is currently on Holter monitor being followed by Cardiology. Assessment & Plan (07/07/2021 10:28 AM MEDICAL SOCIAL WORKER): Chronic condition improved control with metoprolol will [...] crestor Assessment & Plan (10/06/2021 4:52 PM MEDICAL SOCIAL WORKER): Chronic condition at goal rosuvastatin has made significant reduction in LDL will continue with current regimen CK is normal. AST ALT no nd normal Assessment & Plan (07/07/2021 10:17 AM MEDICAL SOCIAL WORKER): Chronic condition Start crestro 5mg Repeat lft [...] changes. [facility] lipid panel [facility] mo [facility] COVID-19 04/16/2021 Vitreous syneresis of both eyes 08/26/2020 Assessment & Plan (01/11/2023 8:42 AM CDT): + extensive vitreous opacities peripherally OU Assessment & Plan (08/26/2020 11:38 AM MEDICAL SOCIAL WORKER): Significant floaters both eyes (OU), but tolerable for patient for now. Will plan for YAG cap OS first. I will see her again after the act to determine if her symptoms are improved and also to monitor the macular pucker. Visual disturbance 07/29/2020 Assessment & Plan (07/29/2020 4:18 PM MEDICAL SOCIAL WORKER): +white light in vision left eye (OS) [...] 06/21/2023 Assessment & Plan (09/23/2023 10:46 AM MEDICAL SOCIAL WORKER): 2 months s/p Right Extraction Cataract - Phacoemulsification And Lens Implant - Right Doing well off all drops. MRX today to 20/20. Early PCO Assessment & Plan (07/04/2023 10:14 AM MEDICAL SOCIAL WORKER): POW1 Right Extraction Cataract - Phacoemulsification And [...] normal Assessment & Plan (09/15/2020 8:13 AM MEDICAL SOCIAL WORKER): Not yet VS BAT 20/[address] Moscoso for her routine eye care - back to me when VS Assessment & Plan (08/26/2020 11:38 AM MEDICAL SOCIAL WORKER): SHE WILL CONTINUE TO FOLLOW WITH DR. Yuen Assessment & Plan (07/29/2020 4:20 PM MEDICAL SOCIAL WORKER): Mild; not yet VS -follow PCO (posterior capsular opacification), left 03/2020 Assessment & Plan (02/18/2023 8:31 AM CDT): Open PC Clear view Assessment & Plan (09/15/2020 8:14 AM MEDICAL SOCIAL WORKER): PCO OS VS with glare Aware will not change ERM Plan for YAG OS today Follow 4 weeks, then to Dr. Moscoso thereafter Assessment & Plan (08/26/2020 11:38 AM MEDICAL SOCIAL WORKER): Has mild PCO OS. Will send for YAG Cap to see if helps patient's constant blurriness . Patient understands that this will not improve floaters or ERM, which would require a retina surgery. Patient tolerates floaters at this time and no metamorphopsia from ERM. I think such a staged approach is reasonable and the patient agreed Assessment & Plan (07/29/2020 4:20 PM MEDICAL SOCIAL WORKER): -sp cataract extraction (CE) [facility] [place] [facility]: consider yag cap after retina eval Epiretinal membrane (ERM) of both eyes 0 Assessment & Plan (09/23/2023 10:45 AM MEDICAL SOCIAL WORKER): F/u with retina in 3 weeks. Assessment [...] point Assessment & Plan (09/15/2020 8:14 AM MEDICAL SOCIAL WORKER): ERM OU Observing with Dr. Jay Assessment & Plan (08/26/2020 11:22 AM MEDICAL SOCIAL WORKER): Patient denies metamorphopsia, good visual acuity. Defer intervention at this time for ERM. Assessment & Plan (07/29/2020 4:20 PM MEDICAL SOCIAL WORKER): left eye (OS)>>OD +pt complains of very [...] syndrome GERD (gastroesophageal reflux disease) Brain concussion [id number] Depression 0305331 Migraines 08/22/2000 Peptic ulceration 0101 1 Kidney stone 08/22/2000 Menstrual problem 08/22/2000 [...] week 05/10/2023 How often do you attend [facility] or mormon services? 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 Gender Identity Female 03/27/2020 5:01 PM [...] this topic Medical Devices Implanted Type Area Pairer Inspector Device Identifier Shelf Expiration Date Model / Serial / Lot [employer] Acrysof Iq Natural Stableforce Acrysert 6mm 13mm 1 Piece Foldable Sn60wf.185 - [id number] - [id number] Implanted:Qty: 1 on 06/21/2023 by Mary Ann Webster MD at [facility] Right: Eye [employer] [id number] 11/07/2027 SN60WF.18 5 / [id number] / Explanted Type Area Pairer Inspector Device Identifier Shelf Expiration Date Model / Serial / Lot [employer] Michelle Flexi-Stent 7fr 7cm Small Pigtail Flexible .035in Stent 6574 - [id number] Implanted:Qty: 1 on 05/09/2023 by Jordan Duff MD at [facility] Explanted:Qty: 1 on 05/11/2023 by Jordan Duff MD at [facility] N/A: Pancreas [employer] [id number] 12/21/2027 [id number] / / [id number] [employer] Shreya Wallflex 10mm X 60mm Fully Covered Biliary [id number] - [id number] Implanted:Qty: 1 on 05/09/2023 by Jordan Duff MD at [facility] Explanted:Qty: 1 on 05/11/2023 by Jordan Duff MD at [facility] N/A: Bile Duct [employer] Shreya 03/01/2025 [id number] / / [id number] Procedures Procedure Name Priority Date/Time Associated Diagnosis [...] Most Recently Relevant to Health Maintenance Insurance Member Subscriber Plan / Payer (Ef fective 2020-Present) Name:Chrissy Kilgore Relation to Subscriber:Self Name:Chrissy Kilgore Payer ID:[id number] (NAIC) Type:MEDICAID RISK OTHER Address: [place] [address] Advance Directives For more information, please contact: [phone] * Full Code (Latest Code Status on File) Date Activated Date Inactivated Comments 05/09/2023 5:28 PM 05/11/2023 10:17 PM Care Teams Communications Attendant Relationship Specialty Start Date End Date Ramonita Crawford NP [address] [address] PCP - General Family Medicine 02/18/23 Angeles Hernandez MD [address] [address] Referring Physician Gynecology 07/21/21
--- OUTSIDE RECORDS SUMMARY | 2025-01-01 19:21 | XMS_ITS | Encounter Summary ---
Author Organization 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
--- OUTSIDE RECORDS SUMMARY | 2025-01-01 19:22 | XMS_ITS | Continuity of Care Document ---
Author Organization [facility]. Address [address] [place] [address] Phone Care Team Providers Care Stage Setting Painter Apprentice Name Role Phone Veena Dixon MD Unavailable [...] Copied on Encounter [facility] [address], [address], [place] tel:[phone] [facility] No Information Zack Curiel. [address] [place] [address], [facility], . tel:[phone] [facility] [address], [address], [place] tel:[phone] [employer] [facility] 1 week PO PCIOL OS near (chief complaint) Presence of intraocular lens Zack Curiel. [address] [place] [address], [facility], [place]. tel:[phone] Referring Provider: Veena Elise, [address] [place] [address], [facility]. tel:[phone] [facility] [address], [facility], tel:[phone] [employer] [facility] 1 day PO PCIOL OS (chief complaint) Presence of intraocular lens Zack Curiel. [address] [place] [address], [facility], [place]. tel:[phone] Referring Provider: Veena Elise, [address] [place] [address], [facility]. tel:[phone] [facility] [address], [address], [place] tel:[phone] [employer] No Information Zack Curiel. [address] [place] [address], [address], [place]. tel:[phone] Referring Provider: Veena Elise [address] [place] [address], [address]. tel:[phone] [facility] [address], [address], [place] tel:[phone] [employer] [facility] [employer] No Information Zack Curiel. [address] [place] [address], [address], [place]. tel:[phone] [facility] [employer] [address], [place], [address], [place] tel:[phone] [employer] [facility] CAT EVAL OU (chief complaint) Age-related nuclear cataract of left eyeAge-relate d nuclear cataract of right eye Zack Curiel. [address] [place], [address], [place]. tel:[phone] Referring Provider: Sly Bah, [place], [address]. tel:[phone] Family History Family Member Type Diagnosis Age At Onset No Information Payers Payer name Insurance type Covered constitution party ID Authoriza tion(s) No Information Social History [...]
--- OUTSIDE RECORDS SUMMARY | 2025-01-01 19:22 | XMS_ITS | Continuity of Care Document ---
Author Organization [facility] Address [address] [place] [address] Phone Care Team Providers Care Venetian Blind Mechanic Name Role Phone [facility] Unavailable Unavailable Procedures Procedure Date Cataract Surgery Anesthesia; Lens Advance Directives Directive Yes / No Effective Date File Name No Information Encounters Encounter Description Practice Location Reason(s) For Visit Diagnoses Date Provider Providers Copied on Encounter [facility], [address] [place] [address], [address], tel:[phone] [facility] No Information [facility]. [address], [place], [place], [id number], . tel:[phone] Referring Provider: Veena Elise, [address] [place], [address]. tel:[phone] Family History Family Member Type Diagnosis Age At Onset No Information Payers Payer name Insurance type Covered republican ID Dennys albarado(s) Lisaara Medicaid [id number] Social History Type Description Quantity Date Captured [...]
[2025-01-01] MEDS: IPRATROPIUM 0.5 MG/ALBUTEROL SULFATE 2.5 MG AMPUL.NEB 3 ML INHALATION (19:38)
[2025-01-01] MEDS: methylPREDNISolone SOD SUCC 125 MG VIAL IM (19:39)
== END 2025-01-01 19:59 | disposition home or self-care (01) ==
PROVIDERS: Emergency Provider Nurse Practitioner Family; PCP Nurse Practitioner Family
DX: J45.901 Unspecified asthma with (acute) exacerbation (principal); I10 Essential (primary) hypertension; E78.5 Hyperlipidemia, unspecified; K21.9 Gastro-esophageal reflux disease without esophagitis; F41.9 Anxiety disorder, unspecified; F32.A Depression, unspecified
CPT/HCPCS: 94640; 96372; 99213; G0463; J2919